=== PATIENT | male | born 1950 | race Caucasian/White ===

== ENCOUNTER 2018-01-13 15:41 | Outpatient (REF) | payer MEDICARE, MEDICAID, SELFPAY | END 2018-01-13 16:01 | LOC: NCHCN 15:41 | PROVIDERS: PCP Nurse Practitioner Family; Visit Provider Specialist/Technologist Athletic Trainer | DX: L02.424 Furuncle of left upper limb (principal) | CPT/HCPCS: 87077; 87070; 87186; 87205 ==

== ENCOUNTER 2018-01-15 16:41 | Outpatient (CLI) | payer MEDICARE, MEDICAID, SELFPAY ==
--- NOTE | 2018-01-15 13:22 | DI.RAD_ITS ---
SYMPTOMS/DIAGNOSIS: LT HAND PAIN, M79.642 LEFT FOREARM: Two views. No priors. No bone or joint abnormality is identified. No radiopaque foreign bodies are seen in the soft tissues. IMPRESSION: Negative left forearm. LEFT HAND: Three views. Mild degenerative changes are seen in the hand and wrist. No acute fracture, dislocation, lytic or sclerotic lesion is seen. No erosive changes are seen to suggest osteomyelitis. The soft tissues are unremarkable. IMPRESSION: No acute abnormality.
== END 2018-01-15 17:01 ==
PROVIDERS: PCP Specialist/Technologist Athletic Trainer; Visit Provider Specialist/Technologist Athletic Trainer
DX: M79.642 Pain in left hand (principal); M79.632 Pain in left forearm; M19.032 Primary osteoarthritis, left wrist; M19.042 Primary osteoarthritis, left hand
CPT/HCPCS: 73090; 73130

== ENCOUNTER 2018-04-06 10:36 | Outpatient (REF) | payer MEDICARE, MEDICAID, SELFPAY ==
[2018-04-06 19:46] LABS: Hemoglobin A1C 7.2 % (4.5-6.2)
[2018-04-06 20:00] LABS: ALT 21 U/L (12-78); AST 17 U/L (15-37); Albumin 3.9 g/dL (3.4-5.0); Alkaline Phosphatase 63 U/L (46-116); Anion Gap 9.2 mmol/L (3-11); BUN 27 mg/dL (7-18); Bilirubin, Total 0.4 mg/dL (0.2-1.0); CO2 24.8 mmol/L (21.0-32.0); CREATININE 1.42 mg/dL (0.70-1.30); Calcium 8.9 mg/dL (8.5-10.1); Chloride 100 mmol/L (98-107); Cholesterol 196 mg/dL (50-200); Estimated GFR 50.04 (mL/min/1.73m2); Glucose 147 mg/dL (70-100); HDL Cholesterol 39 mg/dL (40-60); LDL CHOLESTEROL 119 mg/dL (<100); Potassium 5.1 mmol/L (3.5-5.1); Sodium 134 mmol/L (136-145); Total Protein 7.5 g/dL (6.4-8.2); Triglyceride 213 mg/dL (30-150)
== END 2018-04-06 10:56 ==
LOC: NCHCN 10:36
PROVIDERS: PCP Specialist/Technologist Athletic Trainer; Visit Provider Physician Assistant Medical
DX: E11.9 Type 2 diabetes mellitus without complications (principal); I25.10 Atherosclerotic heart disease of native coronary artery without angina pectoris; N18.3 Chronic kidney disease, stage 3 (moderate)
CPT/HCPCS: 80053; 80061; 83721; 83036; 84550

== ENCOUNTER 2018-09-07 08:47 | Emergency (ER) | payer OTHER, SELFPAY ==
[2018-09-07] VITALS (30 sets, daily range): BP systolic 105–138; BP diastolic 55–104; PULSE 63–98; RESP 16–28; TEMP 36.7; O2SAT 94–99
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
--- NOTE | 2018-09-07 09:16 | DI.RAD_ITS ---
SYMPTOM/DIAGNOSIS: LEFT FEMUR LEFT FEMUR: There is no evidence of fracture or hip dislocation. There is acetabular spurring. Degenerative changes are seen at the knee, greatest in the medial femoral tibial joint. Vascular calcifications are seen. There is contrast in the urinary bladder from the recent CT. IMPRESSION: Degenerative changes. No acute abnormality.
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
[2018-09-07] MEDS: Normal Saline 1,000 ML 150 ML IV (09:29)
[2018-09-07 09:32] LABS: Abs Immature Grans 0.04 k/cumm (0.0-0.09); Absolute Basophil Count 0.07 k/cumm (0.0-0.2); Absolute Eosinophil Count 0.16 k/cumm (0.0-0.7); Absolute Monocyte Count 1.24 k/cumm (0.11-0.7); Basophils % 0.4; HCT 43.3 % (40.0-50.0); HGB 14.5 g/dL (13.5-17.5); Immature Grans % 0.2; Lymphocytes % 9.2; Mean Corp. HGB Concentration 33.5 g/dL (32.0-36.0); Mean Corpuscular Hemoglobin 30.2 pg (27.0-33.0); Mean Corpuscular Volume 90.2 fL (80-95); Mean Platelet Volume 9.4 fL (8.0-11.0); Monocytes % 7.6; Neutrophils % 81.6; Platelet Count 329 x1000/uL (130-400); RBC Distribution Width 14.9 % (11.8-14.1); White Blood Cell Count 16.34 k/cumm (4.4-10.8)
[2018-09-07 09:33] LABS: Absolute Neutrophil Count 13.33 k/cumm (1.2-6.7)
[2018-09-07 09:52] LABS: ALT 30 U/L (12-78); AST 25 U/L (15-37); Albumin 3.8 g/dL (3.4-5.0); Alkaline Phosphatase 68 U/L (46-116); Anion Gap 11.8 mmol/L (3-11); BUN 22 mg/dL (7-18); Bilirubin, Total 0.3 mg/dL (0.2-1.0); CO2 24.2 mmol/L (21.0-32.0); CREATININE 1.64 mg/dL (0.70-1.30); Calcium 8.8 mg/dL (8.5-10.1); Chloride 102 mmol/L (98-107); Estimated GFR 42.24 (mL/min/1.73m2); Glucose 180 mg/dL (70-100); Potassium 4.3 mmol/L (3.5-5.1); Sodium 138 mmol/L (136-145); Total Protein 7.6 g/dL (6.4-8.2)
[2018-09-07] MEDS: Omnipaque 350 MG/ML 100 ML BTL IJ (10:14)
== END 2018-09-07 13:00 | disposition left against medical advice (07) ==
PROVIDERS: Emergency Provider Student in an Organized Health Care Education/Training Program; PCP Physician Assistant Medical
DX: S32.018A Other fracture of first lumbar vertebra, initial encounter for closed fracture (principal); S32.028A Other fracture of second lumbar vertebra, initial encounter for closed fracture; S32.038A Other fracture of third lumbar vertebra, initial encounter for closed fracture; S32.048A Other fracture of fourth lumbar vertebra, initial encounter for closed fracture; S32.058A Other fracture of fifth lumbar vertebra, initial encounter for closed fracture; S42.022A Displaced fracture of shaft of left clavicle, initial encounter for closed fracture; E11.65 Type 2 diabetes mellitus with hyperglycemia; V84.0XXA Driver of special agricultural vehicle injured in traffic accident, initial encounter; Z79.01 Long term (current) use of anticoagulants; I10 Essential (primary) hypertension; Z79.84 Long term (current) use of oral hypoglycemic drugs; Z53.29 Procedure and treatment not carried out because of patient's decision for other reasons
CPT/HCPCS: 36415; 73552; 74177; 80053; 86850; 86900; 86901; 96360; 96361; 99285; 70450; 71260; 72125; 73030; 85025; 99284; J3490; L3650

== ENCOUNTER 2018-09-22 15:06 | Outpatient (CLI) | payer MEDICARE, MEDICAID, SELFPAY ==
--- NOTE | 2018-09-22 15:00 | DI.RAD_ITS ---
SYMPTOM/DIAGNOSIS: F/U FX LEFT CLAVICLE: Two views were obtained. The previously described clavicular fracture seen on shoulder films of 09/07/18 is again noted. There may be slightly increased inferior angulation of the distal fracture fragment in comparison with the previous examination. No other significant change is seen.
== END 2018-09-22 15:26 ==
PROVIDERS: PCP Physician Assistant Medical; Visit Provider Physician Assistant
DX: S42.025D Nondisplaced fracture of shaft of left clavicle, subsequent encounter for fracture with routine healing (principal)
CPT/HCPCS: 73000

== ENCOUNTER 2018-10-05 12:54 | Outpatient (REF) | payer MEDICARE, SELFPAY ==
[2018-10-05 22:01] LABS: Anion Gap 9.8 mmol/L (3-11); BUN 18 mg/dL (7-18); CO2 25.2 mmol/L (21.0-32.0); CREATININE 1.19 mg/dL (0.70-1.30); Calcium 8.7 mg/dL (8.5-10.1); Chloride 101 mmol/L (98-107); Glucose 171 mg/dL (70-100); Potassium 4.4 mmol/L (3.5-5.1); Sodium 136 mmol/L (136-145)
== END 2018-10-05 13:14 ==
LOC: NCHCN 12:54
PROVIDERS: PCP Physician Assistant Medical; Visit Provider Physician Assistant Medical
DX: N18.3 Chronic kidney disease, stage 3 (moderate) (principal)
CPT/HCPCS: 80048

== ENCOUNTER 2018-10-06 10:46 | Outpatient (CLI) | payer MEDICARE, MEDICAID, SELFPAY ==
--- NOTE | 2018-10-06 09:02 | DI.RAD_ITS ---
SYMPTOM/DIAGNOSIS: F/U FX LEFT CLAVICLE: Two views. Comparison 09/22/18 There has been no change in alignment of the left clavicular fracture. There is callus formation about the fracture consistent with some interval healing. Mild degenerative changes are seen at the acromioclavicular joint. IMPRESSION: Healing left clavicular fracture.
== END 2018-10-06 11:06 ==
PROVIDERS: PCP Physician Assistant Medical; Referring Provider Physician Assistant Medical; Visit Provider Student in an Organized Health Care Education/Training Program
DX: S42.025A Nondisplaced fracture of shaft of left clavicle, initial encounter for closed fracture (principal); X58.XXXA Exposure to other specified factors, initial encounter; E11.9 Type 2 diabetes mellitus without complications; I10 Essential (primary) hypertension; Z79.84 Long term (current) use of oral hypoglycemic drugs
CPT/HCPCS: 99213; 73000

== ENCOUNTER 2018-10-27 11:16 | Outpatient (CLI) | payer MEDICARE, MEDICAID, SELFPAY ==
--- NOTE | 2018-10-27 10:17 | DI.RAD_ITS ---
SYMPTOMS/DIAGNOSIS: F/U FX LEFT CLAVICLE: Comparison is made with September,. There has been no change in the alignment of the clavicle fracture. There is slightly increased callus formation when compared with the previous exam.
== END 2018-10-27 11:36 ==
PROVIDERS: PCP Physician Assistant Medical; Referring Provider Physician Assistant Medical; Visit Provider Student in an Organized Health Care Education/Training Program
DX: S42.025A Nondisplaced fracture of shaft of left clavicle, initial encounter for closed fracture (principal); X58.XXXA Exposure to other specified factors, initial encounter
CPT/HCPCS: 99213; 73000

== ENCOUNTER 2018-12-06 10:32 | Outpatient (CLI) | payer MEDICARE, MEDICAID, SELFPAY ==
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
== END 2018-12-06 10:52 ==
PROVIDERS: PCP Physician Assistant Medical; Referring Provider Physician Assistant Medical; Visit Provider Student in an Organized Health Care Education/Training Program
DX: S42.025D Nondisplaced fracture of shaft of left clavicle, subsequent encounter for fracture with routine healing (principal); X58.XXXD Exposure to other specified factors, subsequent encounter
CPT/HCPCS: 99212; 99213; 73000

== ENCOUNTER 2018-12-31 08:34 | Outpatient (RCR) | payer MEDICARE, MEDICAID, SELFPAY | END 2019-01-13 23:59 | disposition home or self-care (01) | LOC: CR 08:34 | PROVIDERS: PCP Physician Assistant Medical; Visit Provider Family Medicine | DX: R69 Illness, unspecified (principal) ==

== ENCOUNTER 2018-12-31 15:51 | Outpatient (RCR) | payer MEDICARE, MEDICAID, SELFPAY ==
--- NOTE | 2018-12-31 15:53 | PDOC.CNN_ITS ---
Primary Reason for Visit Medical/Dental/Vision Referral to Care Coordination Referral to Care Coordination: No Referral to Services: Yes Where and Who: [facility] Who: Joao Shin - Referral From Referral From: Self Care Plan - Plan of Care Assessment/Background: Pt presented as walk in stating that he quit smoking Dec and hsd bypass surgery Dec 21, 2018 at [facility] the pharmacy told him that medicaid would not cover his nicotine patches. Plan of Care: Pt has Medicare and Medicaid. CHW gave referal to Joao Shin for smoking cessation
== END 2019-01-13 23:59 | disposition home or self-care (01) ==
LOC: COCO 15:51
PROVIDERS: PCP Physician Assistant Medical; Visit Provider Internal Medicine Hematology
DX: R69 Illness, unspecified (principal)

== ENCOUNTER 2019-02-09 11:41 | Outpatient (RCR) | payer MEDICARE, MEDICAID, SELFPAY | END 2019-02-12 23:59 | disposition home or self-care (01) | LOC: CR 11:41 | PROVIDERS: PCP Physician Assistant Medical; Visit Provider Family Medicine | DX: Z95.1 Presence of aortocoronary bypass graft (principal); Z51.89 Encounter for other specified aftercare | CPT/HCPCS: S9472 ==

== ENCOUNTER 2019-03-11 14:23 | Outpatient (RCR) | payer MEDICARE, MEDICAID, SELFPAY | END 2019-03-15 23:59 | disposition home or self-care (01) | LOC: CR 14:23 | PROVIDERS: PCP Physician Assistant Medical; Visit Provider Family Medicine | DX: Z95.1 Presence of aortocoronary bypass graft (principal); Z51.89 Encounter for other specified aftercare | CPT/HCPCS: S9472 ==

== ENCOUNTER 2019-04-15 08:00 | Outpatient (RCR) | payer MEDICARE, MEDICAID, SELFPAY | END 2019-04-15 23:59 | disposition home or self-care (01) | LOC: CR 08:00 | PROVIDERS: PCP Physician Assistant Medical; Visit Provider Family Medicine | DX: Z95.1 Presence of aortocoronary bypass graft (principal); Z51.89 Encounter for other specified aftercare | CPT/HCPCS: S9472 ==

== ENCOUNTER 2019-04-29 13:41 | Outpatient (RCR) | payer MEDICARE, MEDICAID, SELFPAY | END 2019-05-14 23:59 | disposition home or self-care (01) | LOC: CR 13:41 | PROVIDERS: PCP Physician Assistant Medical; Visit Provider Family Medicine | DX: Z95.1 Presence of aortocoronary bypass graft (principal); Z51.89 Encounter for other specified aftercare | CPT/HCPCS: S9472 ==

== ENCOUNTER 2019-05-02 22:47 | Outpatient (REF) | payer MEDICARE, MEDICAID, SELFPAY ==
[2019-05-02 21:50] LABS: Hemoglobin A1C 7.2 % (3.8-5.6)
[2019-05-02 22:11] LABS: ALT 25 U/L (16-63); AST 24 U/L (15-37); Albumin 3.9 g/dL (3.4-5.0); Alkaline Phosphatase 76 U/L (46-116); Anion Gap 11.3 mmol/L (3-11); BUN 27 mg/dL (7-18); Bilirubin, Total 0.3 mg/dL (0.2-1.0); CO2 25.7 mmol/L (21.0-32.0); CREATININE 1.34 mg/dL (0.70-1.30); Calcium 8.6 mg/dL (8.5-10.1); Calculated LDL 115 mg/dL (<100); Chloride 101 mmol/L (98-107); Cholesterol 185 mg/dL (<200); Estimated GFR 53.33 (mL/min/1.73m2); Glucose 149 mg/dL (74-106); HDL Cholesterol 45 mg/dL (40-60); Potassium 4.7 mmol/L (3.5-5.1); Sodium 138 mmol/L (136-145); Total Protein 7.3 g/dL (6.4-8.2); Triglyceride 127 mg/dL (<150)
== END 2019-05-02 23:07 ==
LOC: NCHCN 22:47
PROVIDERS: PCP Physician Assistant Medical; Visit Provider Physician Assistant Medical
DX: E11.9 Type 2 diabetes mellitus without complications (principal); E78.5 Hyperlipidemia, unspecified; N18.3 Chronic kidney disease, stage 3 (moderate); Z87.891 Personal history of nicotine dependence
CPT/HCPCS: 80053; 80061; 83036

== ENCOUNTER 2019-12-02 13:05 | Outpatient (REF) | payer MEDICARE, SELFPAY ==
[2019-12-02 21:28] LABS: ALT 30 U/L (16-63); AST 17 U/L (15-37); Alkaline Phosphatase 57 U/L (46-116); Anion Gap 9.2 mmol/L (3-11); BUN 22 mg/dL (7-18); Bilirubin, Total 0.4 mg/dL (0.2-1.0); CO2 26.8 mmol/L (21.0-32.0); CREATININE 1.54 mg/dL (0.70-1.30); Calcium 8.7 mg/dL (8.5-10.1); Calculated LDL 118 mg/dL (<100); Chloride 101 mmol/L (98-107); Cholesterol 188 mg/dL (<200); Estimated GFR 45.28 (mL/min/1.73m2); Glucose 168 mg/dL (74-106); HDL Cholesterol 38 mg/dL (40-60); Potassium 4.5 mmol/L (3.5-5.1); Sodium 137 mmol/L (136-145); TSH 3.52 uIU/mL (0.36-3.74); Total Protein 7.3 g/dL (6.4-8.2); Triglyceride 163 mg/dL (<150)
== END 2019-12-02 13:25 ==
LOC: NCHCN 13:05
PROVIDERS: PCP Physician Assistant Medical; Visit Provider Physician Assistant Medical
DX: E06.3 Autoimmune thyroiditis (principal); I25.10 Atherosclerotic heart disease of native coronary artery without angina pectoris; N18.3 Chronic kidney disease, stage 3 (moderate)
CPT/HCPCS: 80053; 80061; 84443

== ENCOUNTER 2019-12-22 18:25 | Outpatient (REF) | payer MEDICARE, SELFPAY ==
[2019-12-22 19:39] LABS: Bilirubin Negative (Negative); Blood Trace-lysed (Negative); Clarity Clear (Clear); Glucose 500 mg/dL (Negative); Ketones Negative (Negative); Leukocyte Esterase Negative (Negative); Nitrite Negative (Negative); Urobilinogen 0.2 EU/dL (Up TO 0.2); pH 5.5 (5-8)
[2019-12-22 19:54] LABS: Bacteria Negative HPF (Negative); Crystals Negative HPF (Negative); Epithelial Cells Negative HPF (Negative); Mucus Negative (Negative)
[2019-12-22 19:55] LABS: C & S Indicated? No
== END 2019-12-22 18:45 ==
LOC: NCHCN 18:25
PROVIDERS: PCP Physician Assistant Medical; Visit Provider Physician Assistant Medical
DX: R35.1 Nocturia (principal)
CPT/HCPCS: 81003; 81015

== ENCOUNTER 2020-04-24 10:51 | Outpatient (REF) | payer MEDICARE, SELFPAY ==
[2020-04-25 19:41] LABS: COVID-19 RT-PCR UVMMC Result Positive (Negative)
== END 2020-04-24 10:52 | disposition home or self-care (01) ==
LOC: NCHCN 10:51
PROVIDERS: PCP Physician Assistant Medical; Visit Provider Physician Assistant Medical
DX: J06.9 Acute upper respiratory infection, unspecified (principal)
CPT/HCPCS: U0003; U0005

== ENCOUNTER 2020-04-27 05:28 | Outpatient (CLI) | payer MEDICARE, MEDICAID, SELFPAY ==
[2020-04-27 11:27] VITALS: BP 108/66; PULSE 54; RESP 20; TEMP 36.9
[2020-04-27 11:38] VITALS: BP 105/67; PULSE 53; RESP 18; TEMP 36.7; O2SAT 95
[2020-04-27 11:55] VITALS: BP 102/62; PULSE 53; RESP 18; TEMP 36.8; O2SAT 95
[2020-04-27 12:25] VITALS: BP 113/70; PULSE 52; RESP 18; TEMP 36.8; O2SAT 96
[2020-04-27 12:55] VITALS: BP 101/67; PULSE 55; RESP 20; TEMP 36.9; O2SAT 96
--- NOTE | 2020-04-27 14:23 | NUR.NOTE ---
Nursing Note: Bamlanivimab, Normal Saline, and NS flush were ordered under patients pre-account, [id number]. Patient has received his infusion. Medication documentation entered under account that medication had been ordered under.
== END 2020-04-27 05:29 | disposition home or self-care (01) ==
PROVIDERS: PCP Physician Assistant Medical; Visit Provider Family Medicine
DX: U07.1 COVID-19 (principal)
CPT/HCPCS: 96365

== ENCOUNTER 2021-04-09 16:25 | Outpatient (REF) | payer MEDICARE, MEDICAID, SELFPAY ==
[2021-04-09 20:41] LABS: Hemoglobin A1C 6.8 % (<5.7)
[2021-04-09 20:56] LABS: ALT 27 U/L (16-63); AST 22 U/L (15-37); Albumin 4.2 g/dL (3.4-5.0); Alkaline Phosphatase 67 U/L (46-116); Anion Gap 11.1 mmol/L (3-11); BUN 30 mg/dL (7-18); Bilirubin, Total 0.4 mg/dL (0.2-1.0); CO2 25.9 mmol/L (21.0-32.0); CREATININE 2.1 mg/dL (0.70-1.30); Calcium 9.1 mg/dL (8.5-10.1); Calculated LDL 122 mg/dL (<100); Chloride 100 mmol/L (98-107); Cholesterol 205 mg/dL (<200); Estimated GFR 31.56 (mL/min/1.73m2); Glucose 137 mg/dL (74-106); HDL Cholesterol 58 mg/dL (40-60); Potassium 5.5 mmol/L (3.5-5.1); Sodium 137 mmol/L (136-145); TSH 3.99 uIU/mL (0.36-3.74); Triglyceride 128 mg/dL (<150)
== END 2021-04-09 16:26 | disposition home or self-care (01) ==
LOC: NCHCN 16:25
PROVIDERS: PCP Physician Assistant Medical; Visit Provider Physician Assistant Medical
DX: E06.3 Autoimmune thyroiditis (principal); E11.9 Type 2 diabetes mellitus without complications; I25.10 Atherosclerotic heart disease of native coronary artery without angina pectoris
CPT/HCPCS: 80053; 80061; 83036; 84443

== ENCOUNTER 2021-05-07 16:35 | Outpatient (REF) | payer MEDICARE, SELFPAY ==
[2021-05-07 19:25] LABS: Anion Gap 12.5 mmol/L (3-11); BUN 42 mg/dL (7-18); CO2 24.5 mmol/L (21.0-32.0); CREATININE 2.1 mg/dL (0.70-1.30); Calcium 9.3 mg/dL (8.5-10.1); Chloride 102 mmol/L (98-107); Estimated GFR 31.56 (mL/min/1.73m2); Glucose 196 mg/dL (74-106); Potassium 4.4 mmol/L (3.5-5.1); Sodium 139 mmol/L (136-145); TSH 2.29 uIU/mL (0.36-3.74)
== END 2021-05-07 16:36 | disposition home or self-care (01) ==
LOC: NCHCN 16:35
PROVIDERS: PCP Physician Assistant Medical; Visit Provider Physician Assistant Medical
DX: I10 Essential (primary) hypertension (principal); E78.5 Hyperlipidemia, unspecified
CPT/HCPCS: 80048; 84443

== ENCOUNTER 2021-05-13 04:57 | Emergency (ER) | payer MEDICARE, MEDICAID, SELFPAY ==
[2021-05-13] VITALS (68 sets, daily range): BP systolic 88–124; BP diastolic 56–99; PULSE 57–124; RESP 13–23; TEMP 36–36.5; O2SAT 94–100
--- NOTE | 2021-05-13 05:07 | ED.GENADUL_ITS ---
Discharge Plan Disposition Patient Disposition: HOME Condition: Improving Discharge Details Clinical Impression: Anaphylaxis, Lip swelling, Urticaria Primary Care Provider: Antonella Lucas ED Provider: Ember Rolon Home Meds and New Rx's Prescriptions: New epinephrine 0.3 mg/0.3 mL auto-injector 0.3 mg IM Q5-15M PRN (Reason: anaphylaxis) Qty: 2 0RF Rx Instructions: do not exceed 3 doses per episode prednisone 20 mg tablet 60 mg PO DAILY 4 Days Qty: 12 0RF Continued sildenafil [Viagra] 50 MG tablet 50 mg PO DAILY PRN0RF aspirin 325 MG tablet 325 mg PO DAILY 0RF nitroglycerin [Nitrostat] 0.4 MG tablet, sublingual 0.4 mg Sublingual 0RF epinephrine 0.3 MG/0.3 ML auto-injector 0.3 mg IM PRN PRN0RF metformin [Glucophage XR] 500 MG tablet extended release 24 hr 500 mg PO BID 0RF metoprolol succinate 100 mg Tablet Extended Release 24 Hr 100 mg PO DAILY 0RF gemfibrozil [Lopid] 600 mg Tablet 600 mg PO BID 0RF furosemide [Lasix] 20 mg Tablet 20 mg PO QAM 0RF rosuvastatin [Crestor] 40 mg Tablet 40 mg PO DAILY 0RF Lantus Solostar U-100 Insulin 100 unit/mL (3 mL) Insulin Pen 10 unit SUBCUT QPM 0RF Discontinued lisinopril 5 MG tablet 5 mg PO DAILY 0RF Discharge Instructions Instructions: Anaphylaxis (ED), General Allergic Reaction (ED) Additional Instructions: You are being sent home with prescriptions for prednisone to take as directed until finished and an EpiPen to use if you develop any severe allergic reaction symptoms including dizziness, vomiting, difficulty swallowing or breathing. Stop taking your lisinopril until you follow-up with your primary care doctor within the next 2 to 3 days for reevaluation. Return immediately to the emergency department if you develop any worsening or new concerning symptoms. Discharge Data Discharge Physician: Ember Rolon Medical Decision Making <Irwin Gibson MD - Last Filed: 05/13/21 06:37> 70 yo male with hx of DM, HTN, who states he had a prior reaction over 20 years ago to a bee sting requiring epi and none since who comes in stating he woke up with lip swelling. He states he went to bed feeling well and woke up noticing his lips were swollen. HE also felt like his skin was itching and so came here. He denies chest pain or dyspnea currently, no new foods or new meds and no known inset bites or stings. He does have several small slightly raised mildly erythematous patches of various sizes and he is not sure if this is new or not but they do appear to be hives. He does state he feels itchy. Both upper and lower lips are swollen. He is able to fully open his mouth and his tongue is normal size and posterior pharynx including uvula appear normal, he has clear lungs and no abdominal tenderness and is swallowing normally. I suspect angioedema possibly from the lisinopril though given he feels itching of the skin and unclear if this rash on lower abdomen and back is new or not will treat as possible anaphylaxis with epi, benadryl, famotidine and methylprednisolone and reassess. labs show creatinine of 3.8 and was 2.1 last week, seems to be karma on ckd, is making urine normally. Urticaria has improved and he has no itching now, no changes in lip swelling, he feels well. Will continue to monitor, will likely have him hold his lisinopril until he sees his pcp if he is discharged after observation pt continues to feel well and his lips are slightly less swollen and he states they feel less swollen, will monitor for 4 hours after epi was given Differential Diagnosis Differential Diagnosis: angioedema, anaphylaxis Lab Data Lab results reviewed: Yes I reviewed the patient's lab results. <Ember Rolon DO - Last Filed: 05/13/21 09:57> 70 yo male with hx of DM, HTN, who states he had a prior reaction over 20 years ago to a bee sting requiring epi and none since who comes in stating he woke up with lip swelling. He states he went to bed feeling well and woke up noticing his lips were swollen. HE also felt like his skin was itching and so came here. He denies chest pain or dyspnea currently, no new foods or new meds and no known inset bites or stings. He does have several small slightly raised mildly erythematous patches of various sizes and he is not sure if this is new or not but they do appear to be hives. He does state he feels itchy. Both upper and lower lips are swollen. He is able to fully open his mouth and his tongue is normal size and posterior pharynx including uvula appear normal, he has clear lungs and no abdominal tenderness and is swallowing normally. I suspect angioedema possibly from the lisinopril though given he feels itching of the skin and unclear if this rash on lower abdomen and back is new or not will treat as possible anaphylaxis with epi, benadryl, famotidine and methylprednisolone and reassess. labs show creatinine of 3.8 and was 2.1 last week, seems to be karma on ckd, is making urine normally. Urticaria has improved and he has no itching now, no changes in lip swelling, he feels well. Will continue to monitor, will likely have him hold his lisinopril until he sees his pcp if he is discharged after observation pt continues to feel well and his lips are slightly less swollen and he states they feel less swollen, will monitor for 4 hours after epi was given 05/13 Dr. Rolon: [id number] --Case endorsed to continue to monitor after epi given. Plan is for monitoring for 4 hours post epinephrine injection which will be around 9:30 AM. 0950 --patient states he feels 75% better and would like to go home. He was able to ambulate, eat yogurt denies any difficulty swallowing or breathing. There is still some swelling noted to his legs but overall improved. Normal oropharynx. Lungs clear bilaterally. Vitals within normal limits. We will plan for discharge to home at this time. He was given prescriptions for prednisone and EpiPen Patient was placed on care management list to plan for a follow-up appoint with his primary care doctor in the next 2 to 3 days for reevaluation. He was a dvised to stop taking his lisinopril. Usual and customary return precautions given prior to discharge. HPI <Irwin Gibson MD - Last Filed: 05/13/21 06:37> General Mode of arrival: ambulatory . Date/Time Provider Initiated Documentation: 05/13/21 04:58 . Limitations to Documentation: no limitations . Information obtained by: patient . History of Present Illness 70 year old M presents to the emergency department with the chief complaint of lip swelling, described as moderate, Patient started experiencing this hour(s) (1) and it has been constant. improves with No relieving factors improve symptom(s), No exacerbating factors reported . Patient notes denies chest pain and fever/chills. Patient did receive the following treatments prior to arrival, none Related Data Home Medications Medication Instructions Recorded Confirmed Glucophage XR 500 mg 500 mg PO BID NS 03/01/13 05/13/21 tablet,extended release (metformin) Nitrostat 0.4 mg sublingual tablet 0.4 mg SUBLINGUAL NS 03/01/13 12/06/18 (nitroglycerin) Viagra 50 mg tablet (sildenafil) 50 mg PO DAILY PRN tab-cap NS 03/01/13 05/13/21 aspirin 325 mg tablet 325 mg PO DAILY tab-cap NS 03/01/13 04/27/20 epinephrine 0.3 mg/0.3 mL 0.3 mg IM PRN PRN NS 03/01/13 05/13/21 injection, auto-injector furosemide 20 mg tablet (Lasix) 20 mg PO QAM 09/07/18 05/13/21 gemfibrozil 600 mg tablet (Lopid) 600 mg PO BID 09/07/18 05/13/21 metoprolol succinate 100 mg 100 mg PO DAILY 09/07/18 05/13/21 tablet,extended release 24 hr rosuvastatin 40 mg tablet (Crestor) 40 mg PO DAILY 09/07/18 05/13/21 insulin glargine 100 unit/mL (3 10 unit SUBCUT QPM 04/27/20 05/13/21 mL) subcutaneous pen (Lantus Solostar U-100 Insulin) epinephrine 0.3 mg/0.3 mL 0.3 mg (0.3 mL) IM Q5-15M PRN #2 ea 05/13/21 injection, auto-injector prednisone 20 mg tablet 60 mg PO DAILY 4 Days #12 tab 05/13/21 Previous Rx's Medication Instructions Recorded epinephrine 0.3 mg/0.3 mL 0.3 mg (0.3 mL) IM Q5-15M PRN #2 ea 05/13/21 injection, auto-injector prednisone 20 mg tablet 60 mg PO DAILY 4 Days #12 tab 05/13/21 Allergies Allergy/AdvReac Type Severity Reaction Status Date / Time varenicline tartrate Allergy Unknown Unverified 05/13/21 05:12 [From Chantix] hornet Allergy facial/throat Uncoded 05/13/21 05:12 swelling General Stated Complaint: Allergic JENN: 2 Review of Systems <Irwin Gibson MD - Last Filed: 05/13/21 06:37> All systems reviewed & are unremarkable except as noted in HPI and below Constitutional Constitutional: Denies chills, Denies fever(s) and Denies weakness Eyes Eyes: Denies loss of vision Cardiovascular Cardiovascular: Denies chest pain and Denies dyspnea Respiratory Respiratory: Denies cough and Denies dyspnea Gastrointestinal Gastrointestinal: Denies abdominal pain, Denies nausea and Denies vomiting Genitourinary Genitourinary: Denies dysuria Musculoskeletal Musculoskeletal: Denies joint swelling Neurologic Neurologic: Denies loss of vision and Denies weakness PFSH <Irwin Gibson MD - Last Filed: 05/13/21 06:37> All Active Problems (Updated 05/13/21 @ 09:54 by Ember Rolon DO) Anaphylaxis (Acute) Lip swelling (Acute) Urticaria (Acute) Closed left clavicular fracture (Acute 09/07/18) Medical History (Updated 05/13/21 @ 09:54 by Ember Rolon DO) Diabetes Heart attack Hypercholesterolemia Hypertension Social History Smoking/Tobacco Use Status: Former Tobacco Use Quit Date: 12/22/18 Tobacco: How many years used: 50 Smoking risk assessment performed?: Yes Alcohol Intake: current Alcohol Intake frequency: 3 or more drinks per day Alcohol type: beer Substance use type: does not use Do you feel safe at home: Yes Do you feel safe in your relationship?: Yes Exam <Irwin Gibson MD - Last Filed: 05/13/21 06:37> Const General: no acute distress Orientation: alert HENMT Head: normal to inspection Ears: external ears normal General nose exam: external nose normal Mouth: moist mucous membranes Eyes General: appearance normal, both eyes and all related structures Neck Neck: normal visual inspection Resp Effort & Inspection: normal respiratory effort and able to speak in complete sentences Cardio Rate: regular rate Skin General skin exam: turgor normal Neuro General: patient alert and patient oriented x3 Extrem General: normal to inspection Psych Mental Status: mental status grossly normal Course <Irwin Gibson MD - Last Filed: 05/13/21 06:37> Vital Signs Vital signs: Vital Signs Temperature 36.0 C L 05/13/21 05:02 Pulse 71 05/13/21 05:02 Respiratory Rate 20 05/13/21 05:02 Blood Pressure 116/99 H 05/13/21 05:02 Pulse Oximetry 97 05/13/21 05:02 Temperature 36.0 C L 05/13/21 05:02 Temperature Source Temporal Artery Scan 05/13/21 05:02 Pulse 71 05/13/21 05:02 Respiratory Rate 20 05/13/21 05:02 Blood Pressure 116/99 H 05/13/21 05:02 Blood Pressure Position Sitting 05/13/21 05:02 Pulse Oximetry 97 05/13/21 05:02 Oxygen Delivery Method Room Air 05/13/21 05:02 Oxygen Flow Rate 0 05/13/21 05:02 Pain Level 3 05/13/21 05:02 Critical Care Time <Irwin Gibson MD - Last Filed: 05/13/21 06:37> Critical Care Time Critical Care Time: Yes Total Critical Care Time: 60 (minutes) Attestation: time spent giving IM epinephrine in patient with anaphylaxis requiring hemodynamic monitoring and frequent checks with potential to deteriorate at any time Sign Out <Irwin Gibson MD - Last Filed: 05/13/21 06:37> Sign Out Data: Sign Out Comment: lip swelling and also had hives on lower abdomen/back so was given IM epi, IV benadryl/famotidine/solumedrol with improvement, plan for him if he doesn't require another dose of epi is to be discharged at approx. 930 and d/c lisinopril until he sees his pcp Last updated by Irwin Gibson MD at 05/13/21 06:38
[2021-05-13] MEDS: FAMOTIDINE 20 MG in Normal Saline 100 ML 400 MG IVPB (05:23)
[2021-05-13] MEDS: Normal Saline 1,000 ML 1000 ML IV ×2 (05:25→06:41)
[2021-05-13] MEDS: EPINEPHrine 1 MG/ML AMP pres-free 0.3 MG IM (05:25)
[2021-05-13] MEDS: diphenhydrAMINE 50 MG/ML VIAL IVP (05:25)
[2021-05-13] MEDS: methylPREDNISolone SUCC 125 MG VIAL IVP (05:25)
[2021-05-13 05:34] LABS: Abs Immature Grans 0.04 10^3/uL (0.0-0.06); Absolute Basophil Count 0.06 10^3/uL (0.0-0.2); Absolute Eosinophil Count 0.18 10^3/uL (0.0-0.7); Absolute Lymphocyte Count 0.77 10^3/uL (1.2-3.4); Absolute Monocyte Count 1.41 10^3/uL (0.1-0.8); Absolute Neutrophil Count 7.24 10^3/uL (1.2-6.7); Basophils % 0.6; Eosinophils % 1.9; HCT 42.1 % (40.0-50.0); HGB 13.8 g/dL (13.5-17.5); Immature Grans % 0.4; Lymphocytes % 7.9; MCH 29.8 pg (27.0-33.0); MCHC 32.8 % (32.0-36.0); MCV 90.9 fL (80-95); MPV 9.2 fL (8.0-11.0); Monocytes % 14.5; Neutrophils % 74.7; Nucleated RBC 0 %; Platelet Count 238 10^3/uL (130-400); RBC 4.63 10^6/uL (4.36-5.78); RDW 13.4 % (11.8-14.1); RDW-SD 45.4 fL
[2021-05-13 05:51] LABS: ALT 55 U/L (16-63); AST 49 U/L (15-37); Albumin 3.2 g/dL (3.4-5.0); Alkaline Phosphatase 67 U/L (46-116); Anion Gap 13.3 mmol/L (3-11); BUN 61 mg/dL (7-18); Bilirubin, Total 0.6 mg/dL (0.2-1.0); CO2 23.7 mmol/L (21.0-32.0); Calcium 8.7 mg/dL (8.5-10.1); Chloride 96 mmol/L (98-107); Estimated GFR 15.92 (mL/min/1.73m2); Glucose 189 mg/dL (74-106); Potassium 3.5 mmol/L (3.5-5.1); Sodium 133 mmol/L (136-145); Total Protein 7.9 g/dL (6.4-8.2)
[2021-05-13 05:52] LABS: CREATININE 3.8 mg/dL (0.70-1.30)
--- NOTE | 2021-05-13 09:26 | NUR.NOTE ---
Nursing Note: Pt info given to PCP & care management for follow up in the next few days to be seen for angioedema. [facility], ED
== END 2021-05-13 09:54 | disposition home or self-care (01) ==
PROVIDERS: Emergency Medicine; Emergency Provider Physician Assistant; PCP Physician Assistant Medical
DX: T78.2XXA Anaphylactic shock, unspecified, initial encounter (principal); L50.8 Other urticaria; R22.0 Localized swelling, mass and lump, head
CPT/HCPCS: 80053; 96361; 96365; 96372; 96375; 99284; 85025; J0171; J1200; J2930

== ENCOUNTER 2021-05-14 04:43 | Observation (INO) | payer MEDICARE, MEDICAID, SELFPAY ==
[2021-05-14] VITALS (60 sets, daily range): BP systolic 98–144; BP diastolic 45–107; PULSE 65–98; RESP 1–23; TEMP 36.5–37; O2SAT 93–100
--- NOTE | 2021-05-14 | DI.RAD_ITS ---
Exam(s) XR SOFT TISSUE NECK EXAM: XR SOFT TISSUE NECK CLINICAL HISTORY: angioedema. TECHNIQUE: 2D digital imaging was performed. COMPARISON: No exams were available for comparison FINDINGS: BONES: No acute fracture is present. Visualized vertebral body and disc heights are maintained. Mult ilevel degenerative changes are seen in the spine. SOFT TISSUE:Airway is patent without radiopaque foreign body. Epiglottis is not enlarged. Prevertebra l soft tissues appear unremarkable. There is soft tissue swelling in the submandibular region. IMPRESSION: 1. Soft tissue swelling in the submandibular region of the neck. 2. No evidence of an enlarged epiglottis. No prevertebral soft tissue swelling is noted. DATA REPOSITORY: RADIATION DOSE DELIVERED:
--- NOTE | 2021-05-14 | DI.RAD_ITS ---
Exam(s) XR CHEST 1V IN DI DEPT EXAM: XR CHEST 1V IN DI DEPT CLINICAL HISTORY: angioedema TECHNIQUE: 2D digital imaging was performed of the chest. Two images were obtained. PA views were obtained. COMPARISON: No exams were available for comparison FINDINGS: MEDIASTINUM: Normal. HEART: Normal. PULMONARY VASCULATURE: Normal. LUNGS: Clear. PLEURAL SPACE: No pleural effusion or pneumothorax. BONE:Within normal limits for the patient's age. Sternal wires are in place. OTHER FINDINGS:Normal. IMPRESSION: No acute pulmonary findings. DATA REPOSITORY: RADIATION DOSE DELIVERED:
--- NOTE | 2021-05-14 04:59 | ED.GENADUL_ITS ---
Discharge Plan Disposition Patient Disposition: [facility] INPATIENT Condition: Stable Discharge Details Clinical Impression: Angioedema Primary Care Provider: Antonella Lucas ED Provider: Irwin Gibson Home Meds and New Rx's Prescriptions: No Action sildenafil [Viagra] 50 MG tablet 50 mg PO DAILY PRN0RF aspirin 325 MG tablet 325 mg PO DAILY 0RF nitroglycerin [Nitrostat] 0.4 MG tablet, sublingual 0.4 mg Sublingual 0RF epinephrine 0.3 MG/0.3 ML auto-injector 0.3 mg IM PRN PRN0RF metformin [Glucophage XR] 500 MG tablet extended release 24 hr 500 mg PO BID 0RF metoprolol succinate 100 mg Tablet Extended Release 24 Hr 100 mg PO DAILY 0RF gemfibrozil [Lopid] 600 mg Tablet 600 mg PO BID 0RF furosemide [Lasix] 20 mg Tablet 20 mg PO QAM 0RF rosuvastatin [Crestor] 40 mg Tablet 40 mg PO DAILY 0RF Lantus Solostar U-100 Insulin 100 unit/mL (3 mL) Insulin Pen 10 unit SUBCUT QPM 0RF epinephrine 0.3 mg/0.3 mL auto-injector 0.3 mg IM Q5-15M PRN (Reason: anaphylaxis) Qty: 2 0RF Rx Instructions: do not exceed 3 doses per episode prednisone 20 mg tablet 60 mg PO DAILY 4 Days Qty: 12 0RF Medical Decision Making 70 yo male with hx of htn, dm, ckd who comes in with tongue swelling. He was seen yesterday for lip swelling and had hives on his abdomen. He had no dyspnea at that time or wheezing but was treated with IM epi, benadryl famotidine and steroids. He was observed in the ED for 4 hours and did not require further epi and lips were dramatically reduced in size per chart review on discharge. He was on lisinopril but was advised to stop it and hasn't had a dose since Thursday morning. He went to bed feeling well but woke up and felt his tongue was swollen so came here. On exam he is able to say 2-3 words but is limited because his tongue is significantly swollen. He has no dyspnea and has clear lung sounds and is able to swallow though states it is harder than normal to swallow. He again has what appears to be hives on his arms. Currently he seems to be protecting his airway, will treat again with IM epi, iv benadryl, famotidine and steroids and given there are cases IV txa has helped will administer this and also FFF which he consented to verbally receive after discussing risks/benefits Pt stable, still no dyspnea and denies any worsening of his symptoms unchanged creatinine from yesterday, 3.8 increased from baseline 2.1. Still awaiting FFP but still feels no worsening maybe mild improvement in sensation of swelling pt improving with FFP still has first unit going in, is swallowing easier now and still clear lungs. Given rapid worsening within 24 hours will discuss with hospitalist about admission for continued observation and management Differential Diagnosis Differential Diagnosis: anaphylaxis, angioedema Medical Records Medical records reviewed: Yes I reviewed the patient's medical records. Lab Data Lab results reviewed: Yes I reviewed the patient's lab results. HPI General Mode of arrival: ambulatory . Date/Time Provider Initiated Documentation: 05/14/21 04:44 . Limitations to Documentation: no limitations . Information obtained by: patient . History of Present Illness 70 year old M presents to the emergency department with the chief complaint of tongue swelling, described as moderate, and is localized to the mouth. Patient reports no radiation. Patient started experiencing this hour(s) (2) and it has been constant. improves with No relieving factors improve symptom(s), No exacerbating factors reported . Related Data Home Medications Medication Instructions Recorded Confirmed Glucophage XR 500 mg 500 mg PO BID NS 03/01/13 05/14/21 tablet,extended release (metformin) Nitrostat 0.4 mg sublingual tablet 0.4 mg SUBLINGUAL NS 03/01/13 12/06/18 (nitroglycerin) Viagra 50 mg tablet (sildenafil) 50 mg PO DAILY PRN tab-cap NS 03/01/13 05/14/21 aspirin 325 mg tablet 325 mg PO DAILY tab-cap NS 03/01/13 05/14/21 epinephrine 0.3 mg/0.3 mL 0.3 mg IM PRN PRN NS 03/01/13 05/14/21 injection, auto-injector furosemide 20 mg tablet (Lasix) 20 mg PO QAM 09/07/18 05/14/21 gemfibrozil 600 mg tablet (Lopid) 600 mg PO BID 09/07/18 05/14/21 metoprolol succinate 100 mg 100 mg PO DAILY 09/07/18 05/14/21 tablet,extended release 24 hr rosuvastatin 40 mg tablet (Crestor) 40 mg PO DAILY 09/07/18 05/14/21 insulin glargine 100 unit/mL (3 10 unit SUBCUT QPM 04/27/20 05/14/21 mL) subcutaneous pen (Lantus Solostar U-100 Insulin) epinephrine 0.3 mg/0.3 mL 0.3 mg (0.3 mL) IM Q5-15M PRN #2 ea 05/13/21 injection, auto-injector prednisone 20 mg tablet 60 mg PO DAILY 4 Days #12 tab 05/13/21 05/14/21 Previous Rx's Medication Instructions Recorded epinephrine 0.3 mg/0.3 mL 0.3 mg (0.3 mL) IM Q5-15M PRN #2 ea 05/13/21 injection, auto-injector prednisone 20 mg tablet 60 mg PO DAILY 4 Days #12 tab 05/13/21 Allergies Allergy/AdvReac Type Severity Reaction Status Date / Time lisinopril Allergy Severe Anaphylaxis Unverified 05/14/21 06:27 varenicline tartrate Allergy Unknown Unverified 05/14/21 06:25 [From Chantix] hornet Allergy facial/throat Uncoded 05/14/21 06:25 swelling General Stated Complaint: Allergic JENN: 1 Review of Systems All systems reviewed & are unremarkable except as noted in HPI and below Constitutional Constitutional: Denies chills, Denies fever(s) and Denies weakness Eyes Eyes: Denies loss of vision Cardiovascular Cardiovascular: Denies chest pain and Denies dyspnea Respiratory Respiratory: Denies cough and Denies dyspnea Gastrointestinal Gastrointestinal: Denies abdominal pain, Denies nausea and Denies vomiting Genitourinary Genitourinary: Denies dysuria Musculoskeletal Musculoskeletal: Denies joint swelling Neurologic Neurologic: Denies loss of vision and Denies weakness Allergic/Immunologic Allergic/Immunologic: Denies urticaria PFSH All Active Problems (Updated 05/14/21 @ 06:08 by Irwin Gibson MD) Anaphylaxis (Acute) Lip swelling (Acute) Urticaria (Acute) Angioedema (Acute) Closed left clavicular fracture (Acute 09/07/18) Medical History (Updated 05/14/21 @ 06:08 by Irwin Gibson MD) Diabetes Heart attack Hypercholesterolemia Hypertension Social History Smoking/Tobacco Use Status: Former Tobacco Use Quit Date: 12/22/18 Tobacco: How many years used: 50 Smoking risk assessment performed?: Yes Alcohol Intake: current Alcohol Intake frequency: 3 or more drinks per day Alcohol type: beer Substance use type: does not use Do you feel safe at home: Yes Do you feel safe in your relationship?: Yes Exam Const General: not in distress Orientation: alert HENMT Head: normal to inspection Ears: external ears normal General nose exam: external nose normal Mouth: abnormal tongue and no trismus Eyes General: appearance normal, both eyes and all related structures Neck Neck: normal visual inspection Resp Effort & Inspection: normal respiratory effort and able to speak in complete sentences Cardio Rate: regular rate Skin General skin exam: turgor normal Neuro General: patient alert and patient oriented x3 Extrem General: normal to inspection Course Vital Signs Vital signs: Vital Signs Temperature 36.6 C 05/14/21 04:53 Pulse 69 05/14/21 04:53 Respiratory Rate 20 05/14/21 04:53 Blood Pressure 131/77 05/14/21 04:53 Pulse Oximetry 97 05/14/21 04:53 Temperature 36.6 C 05/14/21 04:53 Temperature Source Skin 05/14/21 04:53 Pulse 69 05/14/21 04:53 Respiratory Rate 20 05/14/21 04:53 Blood Pressure 131/77 05/14/21 04:53 Pulse Oximetry 97 05/14/21 04:53 Pain Level 9 05/14/21 04:53 Critical Care Time Critical Care Time Critical Care Time: Yes Total Critical Care Time: 60 (minutes) Attestation: time spent administering IM epi in patient with angioedema and required frequent reassessments with potential to deteriorate at any time
[2021-05-14] MEDS: EPINEPHrine 1 MG/ML AMP pres-free 0.3 MG SC (05:08)
[2021-05-14] MEDS: methylPREDNISolone SUCC 125 MG VIAL IVP (05:10)
[2021-05-14] MEDS: diphenhydrAMINE 50 MG/ML VIAL IVP (05:10)
[2021-05-14] MEDS: Normal Saline 1,000 ML 1000 ML IV (05:11)
[2021-05-14 05:13] LABS: Source Nasal/Nares
[2021-05-14] MEDS: FAMOTIDINE 20 MG in Normal Saline 100 ML 400 MG IVPB (05:13)
[2021-05-14 05:15] LABS: Abs Immature Grans 0.04 10^3/uL (0.0-0.06); Absolute Basophil Count 0.03 10^3/uL (0.0-0.2); Absolute Eosinophil Count 0.03 10^3/uL (0.0-0.7); Absolute Lymphocyte Count 1.32 10^3/uL (1.2-3.4); Absolute Monocyte Count 1.11 10^3/uL (0.1-0.8); Absolute Neutrophil Count 6.74 10^3/uL (1.2-6.7); Basophils % 0.3; Eosinophils % 0.3; HCT 42.3 % (40.0-50.0); HGB 13.6 g/dL (13.5-17.5); Immature Grans % 0.4; Lymphocytes % 14.2; MCH 29.5 pg (27.0-33.0); MCHC 32.2 % (32.0-36.0); MCV 91.8 fL (80-95); MPV 9.3 fL (8.0-11.0); Neutrophils % 72.8; Nucleated RBC 0 %; Platelet Count 299 10^3/uL (130-400); RBC 4.61 10^6/uL (4.36-5.78); RDW 13.5 % (11.8-14.1); RDW-SD 46.1 fL; WBC 9.27 10^3/uL (4.4-10.8)
[2021-05-14 05:28] LABS: ALT 46 U/L (16-63); AST 33 U/L (15-37); Albumin 3.5 g/dL (3.4-5.0); Alkaline Phosphatase 74 U/L (46-116); Anion Gap 12.2 mmol/L (3-11); BUN 66 mg/dL (7-18); Bilirubin, Total 0.6 mg/dL (0.2-1.0); CO2 25.8 mmol/L (21.0-32.0); Calcium 8.8 mg/dL (8.5-10.1); Chloride 100 mmol/L (98-107); Estimated GFR 15.92 (mL/min/1.73m2); Glucose 163 mg/dL (74-106); Potassium 3.7 mmol/L (3.5-5.1); Sodium 138 mmol/L (136-145); Total Protein 8.4 g/dL (6.4-8.2)
[2021-05-14 05:30] LABS: CREATININE 3.8 mg/dL (0.70-1.30)
[2021-05-14] MEDS: EPINEPHrine 0.3 MG KIT (05:41)
[2021-05-14 05:52] LABS: COVID-19 PCR Negative (Negative)
--- NOTE | 2021-05-14 07:40 | RESPIRATORY ---
RT called in to ED for pt with allergic reaction to medication resulting in oral swelling and mallampati score of 4. Pt unable to manage oral secretions or swallow at this time. He is becoming more able to vocalize and has an audible voice. Plan for patient is admission to ICU for observation per attending.
[2021-05-14 08:07] LABS: Lab Add On Test DONE
[2021-05-14 08:16] LABS: Magnesium 2.9 mg/dL (1.8-2.4)
--- NOTE | 2021-05-14 10:06 | W.PULMCC ---
General Date of Service Date of service: 05/14/21 Time of Service: 08:45 Reason for Admission to ICU: Anaphylactoid reaction Assessment and Plan Assessment and plan (1) Anaphylaxis: Status: Acute (2) Acute kidney injury superimposed on CKD: Status: Acute (3) Diabetes: (4) Hypertension: (5) Hypercholesterolemia: Assessment and plan: This is a 70 yo man admitted to the ICU for an anaphylactic reaction. I doubt this to be purely angioedema from his lisinopril as he has urtricaria. He may have developed a true allergy to lisinopril that has caused this. He did have a GI issues with mackeral in the preceeding week but I am not sure if this is even related. Bowel edema can occur with anaphylaxis and so we will have to keep an eye on his GI symptoms (although current no concern so will hold off on imaging). This could represent a protracted anaphylactic reaction - hives, abdominal cramping, lip and tongue swelling which can occur over several days without ever truly improving. I started him on a low dose epinephrine drip given my concern for anaphylaxis. He is currently protecting his airway and it seems as though his tongue swelling is improving so we will observe him in the ICU. Given that this is his second anaphylactic episode, it would likely be in his benefit to have an epi pen at home. Recommendations Pulmonary: Anaphylaxis - s/p famotidine, TXA, FFP, Benadryl, epi 0.3mcg x2 and 125mg methylpred - started continuous epi infusion - agree with scheduled Benadryl for now - receiving 1L LR - would recommend only this 1 bag for now - Decadron 4mg IV daily (to start tomorrow) - recommend an epi pen on discharge - CXR and soft tissue neck Xray - lisinopril already added to allergy list - lactate - will expect some elevations given anaphylaxis as well as epi drip and scheduled albuterol - c1 esterase antigen and functional, IgE, tryptase Cardiac: No acute concerns Renal: DANIELA on CKD - likely due to anaphylaxis - possible tubular swelling? - receiving 1 L LR - avoid nephrotoxic drugs I&O: Intake & Output 05/11/21 05/12/21 05/13/21 05/14/21 23:59 23:59 23:59 23:59 Intake Total 1907 / 1907 Output Total 375 / 375 Balance 1532 / 1532 Weight 107 kg Daily Fluid Goal:: even to slightly positive GI Nutrition: NPO for now Recent abdominal bloating - can hold off on imaging for now - low threshold for abdominal/pelvis CT given potential for bowel edema Date of Last Bowel Movement: 05/13/21 Infectious Disease: No acute concerns for infection, recent COVID infection, but is negative today Hematologic: No acute concerns Neurologic: No acute concerns Endocrine: Diabetes - on insulin - hold metformin Lines: PIV Prophylaxis: Would hold on DVT ppx for today in case of decompensation and potential need for surgical airway Code Status: Resuscitation Status Full Code Subjective Critical and life-threatening events over the past 24 hours: This is a 70 yo man with HTN on lisonpril who initially reported to the ED with lip swelling and hives. He was treated with epi, benadryl, famotidine and methylpred and was ultimately discharged. He returns today with the same and worsening complaints. He states that last week he starting eat mackeral from a can that caused him to have some constipation, abdominal bloating. He took milk of magnesia for this which helps him have a bowel movement and he then felt better. He awoke yesterday to find the lip swelling and itchy skin. It does not seem as though his symptoms ever fully resolved after his initial ED discharge. He denies eating anything atypical aside from the mackeral. 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 Today he was found to have a very swollen tongue and so concern for lisinopril angioedema arose. He was given FFP, TXA, benadryl, Pepcid and 0.3mcg epi x 2. Since administration of these medications his tongue has started to decrease in size per the patient as he is now able to talk. He states there is some subjective trouble breathing but that it because his tongue is big. When breathing through his nose he is ok. Exam Narrative Exam Narrative: Gen: NAD, normal respiratory effort, well-nourished HENT: PERRL, Mallampati 4. Able to speak clearly but with muffled voice. Extremely swollen tongue. No lip swelling. Chest: No respiratory distress, normal appearance of chest, clear to auscultation bilaterally, no crackles or wheezes, normal inspiratory effort Heart: regular rate and rhythym, no murmurs, rubs or gallops Abdomen: Non-distended, soft, non tender Extremities: No clubbing. Diffuse and scattered elevated erythematous rash with darkened boarders consistent with hives. Present on neck, chest, arms, legs. Neuro: AAOx3 , non focal Psych: cooperative, appropriate mental affect Most Recent VS/Results Last Vital Signs Temp 36.6 C 05/14/21 09:20 Pulse 80 05/14/21 09:46 Resp 16 05/14/21 09:46 BP 111/61 05/14/21 09:46 Pulse Ox 95 05/14/21 09:46 Laboratory Results - last 24 hr 05/14/21 05/14/21 05/14/21 05:00 05:00 05:00 WBC 9.27 RBC 4.61 Hgb 13.6 Hct 42.3 MCV 91.8 MCH 29.5 MCHC 32.2 RDW 13.5 Plt Count 299 MPV 9.3 Immature Gran % 0.4 Neutrophils % 72.8 Lymphocytes % 14.2 Monocytes % 12.0 Eosinophils % 0.3 Basophils % 0.3 Nucleated RBC % 0 Absolute Neutrophils 6.74 H Absolute Lymphocytes 1.32 Absolute Monocytes 1.11 H Absolute Eosinophils 0.03 Absolute Basophils 0.03 Sodium 138 Potassium 3.7 Chloride 100 Carbon Dioxide 25.8 Anion Gap 12.2 H BUN 66 H Creatinine 3.8 H* Estimated GFR/1.73 m2 15.92 Glucose 163 H Calcium 8.8 Magnesium Total Bilirubin 0.6 AST 33 ALT 46 Alkaline Phosphatase 74 Total Protein 8.4 H Albumin 3.5 COVID-19 Source SARS-CoV-2 (PCR) Add-On Test Request Patient ABO/Rh A Positive Antibody Screen NEGATIVE 05/14/21 05/14/21 05/14/21 05:00 05:07 Unknown WBC RBC Hgb Hct MCV MCH MCHC RDW Plt Count MPV Immature Gran % Neutrophils % Lymphocytes % Monocytes % Eosinophils % Basophils % Nucleated RBC % Absolute Neutrophils Absolute Lymphocytes Absolute Monocytes Absolute Eosinophils Absolute Basophils Sodium Potassium Chloride Carbon Dioxide Anion Gap BUN Creatinine Estimated GFR/1.73 m2 Glucose Calcium Magnesium 2.9 H Total Bilirubin AST ALT Alkaline Phosphatase Total Protein Albumin COVID-19 Source Nasal/Nares SARS-CoV-2 (PCR) Negative Add-On Test Request DONE Patient ABO/Rh Antibody Screen Review of Systems All systems reviewed & are unremarkable except as noted in HPI and below Time spent with patient Time spent in Critical Care: 60 Time spent in Critical care included: Coordination of care, Chart review, Documenting critically ill care, Time at immediate bedside and Discussing critically ill care with other medical staff
--- NOTE | 2021-05-14 12:17 | W.PM.HP.N ---
Date of service: 05/14/21 Time of Service: 12:18 Assessment and Plan Assessment and plan (1) Acute kidney injury superimposed on CKD: Status: Acute Assessment and plan: Creatinine of 3.8; baseline in the mid 1's to 2.0. LIkely related to the allergic reaction he is experiencing. IV and oral hydration. Monitor. (2) Urticaria: Status: Acute Assessment and plan: See anaphylaxis. (3) Hypertension: Assessment and plan: Holding metoprolol d/t interaction with epinephrine. Resume once epi is discontinued. (4) Hypercholesterolemia: (5) Diabetes: Assessment and plan: Decreased dosing of rosuvastatin to 10mg daily d/t co-administration with gemfibrozil. Holding gemfibrozil currently d/t DANIELA on CKD. (6) CAD (coronary artery disease): Status: Chronic Assessment and plan: Cont ASA 325mg daily. Holding metoprolol as per above. (7) Anaphylaxis: Status: Acute Assessment and plan: Epinephrine drip Scheduled benadryl Now on dexamthasone 4mg daily IV CXR and soft tissue neck pending. [id number] antigen and functional, IgE and tryptase ordered; send outs. History of Present Illness History of Present Illness Chief Complaint: Bilateral lower extremity weakness Narrative: This is a 70 yo male with a PMH of CAD/previous NE, DM2, HTN, HLD. He presented to the ED with tongue swelling and hives. He had presented to the ED the previous day with tongue swelling and hives on his abd. He was treated with IM epinephrine, IV benadryl, famotidine and steroids. After being observed for 4 hours and required no further epinephrine, along with less swelling of his tongue and lips, he was discharged with scripts for an epi pen and prednisone 60mg daily for 4 days. He had been on lisinopril and this was discontinued. Last dose was 04/11/21. This admission was prompted by him waking up and noticing increased tongue swelling . In the ED the swelling of his tongue inhibited clear speech. He had no respiratory distress and was handling his secretions w/o difficulty. He was noted to have wide spread urticarial lesions. He was administered IM epi, IV benadryl, famotidine and steroids as well as IV TXA and FFP. He was admitted and started on a low dose epinephrine drip initiated by Dr Duffy, Pulmonary Medicine. Review of Systems All systems reviewed & are unremarkable except as noted in HPI and below PFSH All Active Problems (Updated 05/14/21 @ 12:58 by Nav Albarado MD) CAD (coronary artery disease) (Chronic) Acute kidney injury superimposed on CKD (Acute) Anaphylaxis (Acute) Lip swelling (Acute) Urticaria (Acute) Angioedema (Acute) Closed left clavicular fracture (Acute 09/07/18) Medical History (Updated 05/14/21 @ 12:58 by Nav Albarado MD) Diabetes Heart attack Hypercholesterolemia Hypertension Social History Smoking/Tobacco Use Status: Former Tobacco Use Quit Date: 12/22/18 Tobacco: How many years used: 50 Smoking risk assessment performed?: Yes Alcohol Intake: current Alcohol Intake frequency: 3 or more drinks per day Alcohol type: beer Substance use type: does not use Do you feel safe at home: Yes Do you feel safe in your relationship?: Yes Meds Allergies and Home Medications Allergies Allergy/AdvReac Type Severity Reaction Status Date / Time lisinopril Allergy Severe Anaphylaxis Unverified 05/14/21 06:27 varenicline tartrate Allergy Unknown Unverified 05/14/21 06:25 [From Chantix] hornet Allergy facial/throat Uncoded 05/14/21 06:25 swelling Home Medications Medication Instructions Recorded Confirmed Type Glucophage XR 500 mg 500 mg PO BID NS 03/01/13 05/14/21 History tablet,extended release (metformin) Nitrostat 0.4 mg sublingual tablet 0.4 mg SUBLINGUAL NS 03/01/13 12/06/18 History (nitroglycerin) Viagra 50 mg tablet (sildenafil) 50 mg PO DAILY PRN tab-cap NS 03/01/13 05/14/21 History aspirin 325 mg tablet 325 mg PO DAILY tab-cap NS 03/01/13 05/14/21 History epinephrine 0.3 mg/0.3 mL 0.3 mg IM PRN PRN NS 03/01/13 05/14/21 History injection, auto-injector furosemide 20 mg tablet (Lasix) 20 mg PO QAM 09/07/18 05/14/21 History gemfibrozil 600 mg tablet (Lopid) 600 mg PO BID 09/07/18 05/14/21 History metoprolol succinate 100 mg 100 mg PO DAILY 09/07/18 05/14/21 History tablet,extended release 24 hr rosuvastatin 40 mg tablet (Crestor) 40 mg PO DAILY 09/07/18 05/14/21 History insulin glargine 100 unit/mL (3 10 unit SUBCUT QPM 04/27/20 05/14/21 History mL) subcutaneous pen (Lantus Solostar U-100 Insulin) epinephrine 0.3 mg/0.3 mL 0.3 mg (0.3 mL) IM Q5-15M PRN #2 ea 05/13/21 Rx injection, auto-injector prednisone 20 mg tablet 60 mg PO DAILY 4 Days #12 tab 05/13/21 05/14/21 Rx Exam Narrative Exam Narrative: Pt is lying in bed. Conversational with mild speech impairment d/t tongue swelling. Const General: cooperative and no acute distress Orientation: alert and oriented x3 HENMT Head: normal to inspection Ears: external ears normal General nose exam: external nose normal Mouth: abnormal tongue (Generalized tongue swelling) and no trismus Eyes General: appearance normal, both eyes and all related structures Sclera: sclerae normal Neck Neck: normal visual inspection, full ROM and no JVD Resp Effort & Inspection: normal respiratory effort and able to speak in complete sentences Auscultation: clear to auscultation bilaterally Cardio Rate: regular rate Rhythm: regular rhythm Heart Sounds: S1 normal and S2 normal GI Palpation: soft and nontender Auscultation: normal bowel sounds Skin General skin exam: turgor normal Rashes: other (Scattered urticarial lesions on torso, all extremities. ) Neuro General: no focal motor deficits Cranial Nerves: facial strength normal Extrem General: normal to inspection, no pedal edema and no calf tenderness Psych Appearance: grossly normal Mood: congruent mood Affect: normal affect Results Labs Result diagrams: 05/14/21 05:00 05/14/21 05:00 Labs: Laboratory Results - last 24 hr 05/14/21 05/14/21 05/14/21 05:00 05:00 05:00 WBC 9.27 RBC 4.61 Hgb 13.6 Hct 42.3 MCV 91.8 MCH 29.5 MCHC 32.2 RDW 13.5 Plt Count 299 MPV 9.3 Immature Gran % 0.4 Neutrophils % 72.8 Lymphocytes % 14.2 Monocytes % 12.0 Eosinophils % 0.3 Basophils % 0.3 Nucleated RBC % 0 Absolute Neutrophils 6.74 H Absolute Lymphocytes 1.32 Absolute Monocytes 1.11 H Absolute Eosinophils 0.03 Absolute Basophils 0.03 Sodium 138 Potassium 3.7 Chloride 100 Carbon Dioxide 25.8 Anion Gap 12.2 H BUN 66 H Creatinine 3.8 H* Estimated GFR/1.73 m2 15.92 Glucose 163 H Calcium 8.8 Magnesium Total Bilirubin 0.6 AST 33 ALT 46 Alkaline Phosphatase 74 Total Protein 8.4 H Albumin 3.5 COVID-19 Source SARS-CoV-2 (PCR) Add-On Test Request Patient ABO/Rh A Positive Antibody Screen NEGATIVE 05/14/21 05/14/21 05/14/21 05:00 05:07 Unknown WBC RBC Hgb Hct MCV MCH MCHC RDW Plt Count MPV Immature Gran % Neutrophils % Lymphocytes % Monocytes % Eosinophils % Basophils % Nucleated RBC % Absolute Neutrophils Absolute Lymphocytes Absolute Monocytes Absolute Eosinophils Absolute Basophils Sodium Potassium Chloride Carbon Dioxide Anion Gap BUN Creatinine Estimated GFR/1.73 m2 Glucose Calcium Magnesium 2.9 H Total Bilirubin AST ALT Alkaline Phosphatase Total Protein Albumin COVID-19 Source Nasal/Nares SARS-CoV-2 (PCR) Negative Add-On Test Request DONE Patient ABO/Rh Antibody Screen Last Vital Signs Temp 36.6 C 05/14/21 09:20 Pulse 89 05/14/21 11:31 Resp 14 05/14/21 11:31 BP 126/61 05/14/21 11:31 Pulse Ox 96 05/14/21 11:31 PAWSS Have you Been Recently Intoxicated or Drunk Within the Last 30 days?: No Have you Ever Experienced Previous Episodes of Alcohol Withdrawal?: No Have you ever undergone Alcohol Rehabilitation Treatment (i.e, inpt ot outpatient treatment programs)?: No Have you ever Experienced Blackouts?: No Have you ever Combined Alcohol with other Downers within the last 90 days?: No Have you ever Combined Alcohol with any other Substance of Abuse during the last 90 days?: No Evidence of Increased Autonomic Activity (i.e. HR>120, tremor, sweating, agitation, nausea)?: No Result: 0
[2021-05-14] MEDS: Insulin Aspart 300 UNITS/3 ML PEN SC ×3 (14:19→22:31)
[2021-05-14] MEDS: diphenhydrAMINE Elixir 25 MG/10 ML CUP PO ×2 (15:57→19:54)
[2021-05-14] MEDS: Albuterol 2.5 MG/3 ML INH SOLN VIAL UPD ×2 (16:27→19:54)
[2021-05-14] MEDS: Nystatin POWDER 15 GM JAR TP (18:11)
[2021-05-14] MEDS: Normal Saline Flush 10 ML SYR IVP ×2 (18:13→19:54)
[2021-05-14] MEDS: Insulin Glargine 300 UNITS/3 ML PEN 10 UNITS SC (19:55)
[2021-05-14] MEDS: Insulin Aspart 300 UNITS/3 ML PEN 7 UNITS SC (20:20)
[2021-05-15] VITALS (37 sets, daily range): BP systolic 100–148; BP diastolic 50–78; PULSE 60–100; RESP 1–25; TEMP 36.4–37; O2SAT 87–100
[2021-05-15] MEDS: Albuterol 2.5 MG/3 ML INH SOLN VIAL UPD ×6 (00:04→19:33)
[2021-05-15 06:59] LABS: Lactate 1.7 mmol/L (0.6-1.4)
[2021-05-15 07:27] LABS: Anion Gap 14.9 mmol/L (3-11); BUN 58 mg/dL (7-18); CO2 21.1 mmol/L (21.0-32.0); CREATININE 3.4 mg/dL (0.70-1.30); Calcium 8.3 mg/dL (8.5-10.1); Chloride 106 mmol/L (98-107); Glucose 162 mg/dL (74-106); Sodium 142 mmol/L (136-145)
--- NOTE | 2021-05-15 08:35 | PDOC.CMIN ---
- If Service Date Differs Date of service: 05/15/21 Time of Service: 08:35 Care Management Initial Assess REASON FOR HOSPITALIZATION:: angioedema, DANIELA PAST MEDICAL HISTORY/PAST SURGICAL HISTORY:: All Active Problems (Updated 05/14/21 @ 12:58 by Nav Albarado MD). CAD (coronary artery disease) (Chronic). Acute kidney injury superimposed on CKD (Acute). Anaphylaxis (Acute). Lip swelling (Acute). Urticaria (Acute). Angioedema (Acute). Closed left clavicular fracture (Acute 09/07/18). Medical History (Updated 05/14/21 @ 12:58 by Nav Albarado MD). Diabetes. Heart attack. Hypercholesterolemia. Hypertension PREVIOUS FUNCTIONAL STATUS/SOCIAL/FAMILY SUPPORTS:: Bear lives in a single family home in [place], [place] with his fianceann marie Pichardo. He has 3 children from a previous marraige all of whom are close by and offer support. 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 He still has a large woodworking shop which he uses. Bear is independent at baseline and receives no community services. CURRENT FUNCTIONAL STATUS:: Bear was sitting up in bed when CM met with him. he was pleasant and engaged easily with CM. Bear talked about his family and his farm and the relationship he has with Kylee. He also talked about the symptoms that brought him to the hospital and how frightening it was tro have his tongue swell. He verbalized thast he hopes to be discharged soon but not until a cause of the reaction is found. ADVANCE DIRECTIVES:: none on file. Providied with a blank copy by CM Has patient been provided with info about the portal/API?: Yes Did the patient sign up for the portal?: No CODE STATUS:: Full Code INSURANCE COVERAGE / FINANCIAL ISSUES:: Medicare CURRENT HOME/COMMUNITY SERVICES/EQUIPMENT:: none PRIMARY CARE PHYSICIAN:: Antonella Lucas POTENTIAL DISCHARGE NEEDS:: follow up with PCP and plan of care PATIENT/FAMILY EDUCATION NEEDS:: Review of discharge instructions, medications, followup plan, limitations, activity, Ask Me Three TRANSPORTATION:: via private vehicle with family PLAN:: Bear will likely be discharged home with no new services. He will follow up with his PCP and plan of care and transport with family. CM will continue to support Bear and his discharge planning needs.
[2021-05-15] MEDS: diphenhydrAMINE Elixir 25 MG/10 ML CUP PO ×3 (09:10→19:32)
[2021-05-15] MEDS: Normal Saline Flush 10 ML SYR IVP ×3 (09:11→19:33)
[2021-05-15] MEDS: Rosuvastatin 10 MG TAB PO (09:11)
[2021-05-15] MEDS: Dexamethasone 4 MG/ML VIAL IVP (09:12)
[2021-05-15] MEDS: Aspirin 325 MG TAB PO (09:12)
[2021-05-15] MEDS: Cetirizine 10 MG TAB PO (09:42)
[2021-05-15] MEDS: Insulin Aspart 300 UNITS/3 ML PEN SC ×4 (09:43→21:38)
[2021-05-15] MEDS: Insulin NPH-Human 300 UNITS/3 ML PEN 13 UNIT SC (09:46)
[2021-05-15] MEDS: diphenhydrAMINE 50 MG/ML VIAL 25 MG IVP (10:05)
[2021-05-15] MEDS: Nystatin POWDER 15 GM JAR TP ×3 (10:09→19:34)
--- NOTE | 2021-05-15 10:56 | PUCC_ITS ---
General Date of Service Date of service: 05/15/21 Time of Service: 07:40 Reason for Admission to ICU: Anaphylaxis Assessment and Plan Assessment and plan (1) Anaphylaxis: Status: Acute (2) Acute kidney injury superimposed on CKD: Status: Acute (3) Diabetes: (4) Hypertension: (5) Hypokalemia: Status: Acute (6) Hypercholesterolemia: Assessment and plan: This is a 70 yo man admitted to the ICU for an anaphylactic reaction. I doubt this to be purely angioedema from his lisinopril as he has urtricaria. He may have developed a true allergy to lisinopril that has caused this. He did have a GI issues with mackeral in the preceeding week but I am not sure if this is even related. Bowel edema can occur with anaphylaxis and so we will have to keep an eye on his GI symptoms (although current no concern so will hold off on imaging). After discontinuing the epinephrine infusion his hives returned within 12 hours and he was restarted on the infusion. This seems to be a refractory reaction despite standing Benadryl, Deadron and famotidine. He is currently protecting his airway and it seems as though his tongue swelling is almost resolved. Given that this is his second anaphylactic episode, it would likely be in his benefit to have an epi pen at home. I do think it is worth discussing the case with Allergy at [facility] [place] [facility] given the return of his hives. His tryptase, IgE studies and c1 studies are still pending. Recommendations Pulmonary: Anaphylaxis - s/p famotidine, TXA, FFP, Benadryl, epi 0.3mcg x2 and 125mg methylpred - restarted continuous epi infusion as hives recurred with discontinuation - agree with scheduled Benadryl for now - Decadron 4mg IV daily - recommend an epi pen on discharge - lisinopril already added to allergy list - c1 esterase antigen and functional, IgE, tryptase - recommend consultation with [facility] Allergy Cardiac: No acute concerns Renal: DANIELA on CKD - likely due to anaphylaxis - possible tubular swelling? - s/p1 L LR - avoid nephrotoxic drugs - Cr today improving Hypokalemia - repletement to 3.5 recommended I&O: Intake & Output 05/12/21 05/13/21 05/14/21 05/15/21 23:59 23:59 23:59 23:59 Intake Total 2877 / 3237 529.5 / 529.5 Output Total 1700 / 1700 1025 / 1025 Balance 1177 / 1537 -495.5 / -495.5 Weight 107 kg 120.1 kg Daily Fluid Goal:: even GI Nutrition: OK for diet Recent abdominal bloating - can hold off on imaging for now - low threshold for abdominal/pelvis CT given potential for bowel edema Date of Last Bowel Movement: 05/13/21 Infectious Disease: No acute concerns for infection, recent COVID infection, but is negative today Hematologic: No acute concerns Neurologic: No acute concerns Endocrine: Diabetes - on insulin - hold metformin Lines: PICC placed this morning Prophylaxis: OK to start DVT ppx on famotidine for allergy treatment Code Status: Resuscitation Status Full Code Subjective Critical and life-threatening events over the past 24 hours: Bear appears to be doing well. His epinephrine drip was stopped at 6pm per my instructions. It was however restarted at 4am due to return of his diffuse hives. His tongue did not appear to enlarge during this. Given the need for continued IV epinephrine infusion, a PICC line was placed this morning. He tells me his rash does not itch anymore after starting the epinephrine (it was very itchy this morning). No trouble breathing. He feels as though his tongues and jaw/neck is not swollen anymore. Exam Narrative Exam Narrative: Gen: NAD, normal respiratory effort, well-nourished HENT: PERRL, Mallampati 4. Able to speak much more clearly. Tongue appears to be normalized in size. No lip swelling. Chest: No respiratory distress, normal appearance of chest, clear to auscultation bilaterally, no crackles or wheezes, normal inspiratory effort Heart: regular rate and rhythym, no murmurs, rubs or gallops Abdomen: Non-distended, soft, non tender Extremities: No clubbing. Diffuse and scattered elevated erythematous rash with darkened boarders consistent with hives. Present on neck, chest, arms, legs. Neuro: AAOx3 , non focal Psych: cooperative, appropriate mental affect Most Recent VS/Results Last Vital Signs Temp 37 C 05/15/21 04:49 Pulse 80 05/15/21 07:42 Resp 12 05/15/21 07:42 BP 119/54 L 05/15/21 04:16 Pulse Ox 100 05/15/21 07:42 Laboratory Results - last 24 hr 05/15/21 05/15/21 06:50 06:50 VBG Lactate 1.7 H Sodium 142 Potassium 3.0 L Chloride 106 Carbon Dioxide 21.1 Anion Gap 14.9 H BUN 58 H Creatinine 3.4 H Estimated GFR/1.73 m2 18.10 Glucose 162 H Calcium 8.3 L Review of Systems All systems reviewed & are unremarkable except as noted in HPI and below Time spent with patient Time spent in Critical Care: 35 Time spent in Critical care included: Coordination of care, Chart review, Doc umenting critically ill care, Time at immediate bedside and Discussing critically ill care with other medical staff
[2021-05-15] MEDS: Famotidine 20 MG/2 ML VIAL IVP (12:24)
--- NOTE | 2021-05-15 15:07 | W.PM.PROGNOT ---
Date of Service Date of service: 05/15/21 Time of Service: 16:26 Assessment and Plan Assessment and plan (1) Acute kidney injury superimposed on CKD: Status: Acute Assessment and plan: Creatinine of 3.8; baseline in the mid 1's to 2.0. Now 3.4 LIkely related to the allergic reaction he is experiencing. IV and oral hydration. Monitor. (2) Urticaria: Status: Acute Assessment and plan: See anaphylaxis. (3) Hypertension: Assessment and plan: Holding metoprolol d/t interaction with epinephrine. Resume once epi is discontinued. BP controlled. (4) Hypercholesterolemia: Assessment and plan: Cont rosuvastatin (5) Diabetes: Assessment and plan: Decreased dosing of rosuvastatin to 10mg daily d/t co-administration with gemfibrozil. Holding gemfibrozil currently d/t DANIELA on CKD. Basal/bolus insulin (6) CAD (coronary artery disease): Status: Chronic Assessment and plan: Cont ASA 325mg daily. Holding metoprolol as per above. (7) Anaphylaxis: Status: Acute Assessment and plan: Epinephrine drip Scheduled benadryl Zyrtec 10mg daily Now on dexamthasone 4mg daily IV CXR and soft tissue neck: swelling in the submandibular region of neck. No epiglottis or prevertebral swelling. No acute pulmonary findings. [id number] antigen and functional, IgE and tryptase, IgE to latex ordered; send outs. Subjective Subjective Patient reports: tolerating a regular diet and afebrile; denies nausea or shortness of breath Interval history since last seen: Pruritic hives returned this AM. Tongue swelling subsided Exam Narrative Exam Narrative: Pt is lying in bed. Conversational with mild speech impairment d/t tongue swelling. Const General: cooperative and no acute distress Orientation: alert and oriented x3 HENMT Head: normal to inspection Ears: external ears normal General nose exam: external nose normal Mouth: tongue normal Eyes General: appearance normal, both eyes and all related structures Sclera: sclerae normal Neck Neck: normal visual inspection, full ROM and no JVD Resp Effort & Inspection: normal respiratory effort and able to speak in complete sentences Auscultation: clear to auscultation bilaterally Cardio Rate: regular rate Rhythm: regular rhythm Heart Sounds: S1 normal and S2 normal GI Palpation: soft and nontender Auscultation: normal bowel sounds Skin General skin exam: turgor normal Rashes: other (Scattered urticarial lesions on torso, all extremities. Areas of confluence) Neuro General: no focal motor deficits Cranial Nerves: facial strength normal Extrem General: normal to inspection, no pedal edema and no calf tenderness Psych Appearance: grossly normal Mood: congruent mood Affect: normal affect Objective Last Vital Signs Temp 37 C 05/15/21 04:49 Pulse 80 05/15/21 07:42 Resp 12 05/15/21 07:42 BP 119/54 L 05/15/21 04:16 Pulse Ox 100 05/15/21 07:42 Laboratory Results - last 24 hr 05/15/21 05/15/21 06:50 06:50 VBG Lactate 1.7 H Sodium 142 Potassium 3.0 L Chloride 106 Carbon Dioxide 21.1 Anion Gap 14.9 H BUN 58 H Creatinine 3.4 H Estimated GFR/1.73 m2 18.10 Glucose 162 H Calcium 8.3 L PAWSS Have you Been Recently Intoxicated or Drunk Within the Last 30 days?: No Have you Ever Experienced Previous Episodes of Alcohol Withdrawal?: No Have you ever Experienced Withdrawal Seizures?: No Have you ever Experienced Delirium Tremens(DT)s?: No Have you ever undergone Alcohol Rehabilitation Treatment (i.e, inpt ot outpatient treatment programs)?: No Have you ever Experienced Blackouts?: No Have you ever Combined Alcohol with other Downers within the last 90 days?: No Have you ever Combined Alcohol with any other Substance of Abuse during the last 90 days?: No Positive Blood Alcohol level on Presentation? [PCS.BAL]: No Evidence of Increased Autonomic Activity (i.e. HR>120, tremor, sweating, agitation, nausea)?: No Result: 0
[2021-05-15] MEDS: Insulin Glargine 300 UNITS/3 ML PEN 10 UNITS SC (21:41)
[2021-05-16] VITALS (24 sets, daily range): BP systolic 113–151; BP diastolic 63–81; PULSE 73–101; RESP 1–20; TEMP 36.3–37; O2SAT 94–98
[2021-05-16] MEDS: Albuterol 2.5 MG/3 ML INH SOLN VIAL UPD ×5 (00:13→20:14)
[2021-05-16] MEDS: Normal Saline Flush 10 ML SYR IVP ×3 (06:04→20:14)
[2021-05-16 07:15] LABS: Anion Gap 12.4 mmol/L (3-11); BUN 50 mg/dL (7-18); CO2 23.6 mmol/L (21.0-32.0); CREATININE 2.9 mg/dL (0.70-1.30); Calcium 8.5 mg/dL (8.5-10.1); Chloride 106 mmol/L (98-107); Estimated GFR 21.75 (mL/min/1.73m2); Glucose 242 mg/dL (74-106); Potassium 3.4 mmol/L (3.5-5.1); Sodium 142 mmol/L (136-145)
[2021-05-16] MEDS: diphenhydrAMINE Elixir 25 MG/10 ML CUP PO ×3 (08:00→20:14)
[2021-05-16] MEDS: Cetirizine 10 MG TAB PO (08:16)
[2021-05-16] MEDS: Dexamethasone 4 MG/ML VIAL IVP (08:16)
[2021-05-16] MEDS: Rosuvastatin 10 MG TAB PO (08:16)
[2021-05-16] MEDS: Insulin NPH-Human 300 UNITS/3 ML PEN 13 UNIT SC (08:27)
[2021-05-16] MEDS: Insulin Aspart 300 UNITS/3 ML PEN SC ×5 (08:28→22:15)
--- NOTE | 2021-05-16 08:52 | PDOC.CMPRO ---
- If Service Date Differs Date of service: 05/16/21 Time of Service: 08:53 Care Management Progress Note S/O: Bear was lying in bed when CM met with him. He was alert, oriented and easily engaged in conversation. He shares that he has an epi pen at home but was unsure how to use it when he started developing anaphalysis. [employer] provided him with an educational video, instructions and a boxing trainer epi pen. He is hoping to discharge home tomorrow. A: 70 year old male admitted to [facility] on 05/14/21 for Angioedema. P: Bear will likely be discharged home with no new services. He will follow up with his PCP and plan of care and transport with family. CM will continue to support Bear and his discharge planning needs.
[2021-05-16] MEDS: Nystatin POWDER 15 GM JAR TP ×2 (09:00→20:16)
[2021-05-16] MEDS: Montelukast 10 MG TAB PO (09:00)
[2021-05-16] MEDS: Famotidine 20 MG/2 ML VIAL IVP (12:13)
--- NOTE | 2021-05-16 15:02 | W.PM.PROGNOT ---
Date of Service Date of service: 05/16/21 Time of Service: 15:04 Assessment and Plan Assessment and plan (1) Acute kidney injury superimposed on CKD: Status: Acute Assessment and plan: Creatinine of 3.8; baseline in the mid 1's to 2.0. Now 2.9 LIkely related to the allergic reaction he is experiencing. IV and oral hydration. Monitor. (2) Urticaria: Status: Acute Assessment and plan: See anaphylaxis. (3) Hypertension: Assessment and plan: Have been holding metoprolol d/t interaction with epinephrine. Now off epi and will resume metoprolol nightly. (4) Hypercholesterolemia: Assessment and plan: Cont rosuvastatin (5) Diabetes: Assessment and plan: Basal/bolus insulin. Readings cont to be elevated. Steroid effect is contributing to elevations. Adjust insulin. (6) CAD (coronary artery disease): Status: Chronic Assessment and plan: Cont ASA 325mg daily. Decreased dosing of rosuvastatin to 10mg daily d/t co-administration with gemfibrozil. Holding gemfibrozil currently d/t DANIELA on CKD. Resume metoprolol. (7) Anaphylaxis: Status: Acute Assessment and plan: Epinephrine drip stopped this AM Scheduled benadryl Zyrtec 10mg daily Singulair 10mg daily Now on dexamthasone 4mg daily IV CXR and soft tissue neck: swelling in the submandibular region of neck. No epiglottis or prevertebral swelling. No acute pulmonary findings. [id number] antigen and functional, IgE and tryptase, IgE to latex ordered; send outs. Subjective Subjective Patient reports: no new complaints, tolerating a regular diet and afebrile; denies nausea or shortness of breath Interval history since last seen: Pruritic hives fading Tongue swelling subsided Exam Narrative Exam Narrative: Pt is lying in bed. Conversational with mild speech impairment d/t tongue swelling. Const General: cooperative and no acute distress Orientation: alert and oriented x3 HENMT Head: normal to inspection Ears: external ears normal General nose exam: external nose normal Mouth: tongue normal and no trismus Eyes General: appearance normal, both eyes and all related structures Sclera: sclerae normal Neck Neck: normal visual inspection, full ROM and no JVD Resp Effort & Inspection: normal respiratory effort and able to speak in complete sentences Auscultation: clear to auscultation bilaterally Cardio Rate: regular rate Rhythm: regular rhythm Heart Sounds: S1 normal and S2 normal GI Palpation: soft and nontender Auscultation: normal bowel sounds Skin General skin exam: turgor normal Rashes: other (Mild erythema at site of urticarial lesions of legs; no raised welps. ) Full body images: 1. 2-4 mm red papular lesions. No vesicles. 2. Neuro General: no focal motor deficits Cranial Nerves: facial strength normal Extrem General: normal to inspection, no pedal edema and no calf tenderness Psych Appearance: grossly normal Mood: congruent mood Affect: normal affect Objective Last Vital Signs Temp 36.6 C 05/16/21 13:03 Pulse 83 05/16/21 14:01 Resp 16 05/16/21 14:01 BP 138/81 05/16/21 14:01 Pulse Ox 95 05/16/21 08:01 Laboratory Results - last 24 hr 05/16/21 06:10 Sodium 142 Potassium 3.4 L Chloride 106 Carbon Dioxide 23.6 Anion Gap 12.4 H BUN 50 H Creatinine 2.9 H Estimated GFR/1.73 m2 21.75 Glucose 242 H D Calcium 8.5 PAWSS Have you Been Recently Intoxicated or Drunk Within the Last 30 days?: No Have you Ever Experienced Previous Episodes of Alcohol Withdrawal?: No Have you ever Experienced Withdrawal Seizures?: No Have you ever Experienced Delirium Tremens(DT)s?: No Have you ever undergone Alcohol Rehabilitation Treatment (i.e, inpt ot outpatient treatment programs)?: No Have you ever Experienced Blackouts?: No Have you ever Combined Alcohol with other Downers within the last 90 days?: No Have you ever Combined Alcohol with any other Substance of Abuse during the last 90 days?: No Positive Blood Alcohol level on Presentation? [PCS.BAL]: No Evidence of Increased Autonomic Activity (i.e. HR>120, tremor, sweating, agitation, nausea)?: No Result: 0
[2021-05-16] MEDS: Insulin Glargine 300 UNITS/3 ML PEN 20 UNITS SC (20:15)
[2021-05-16] MEDS: Hydrocortisone 1% CR 30 GM TUBE TP (20:15)
[2021-05-16] MEDS: Metoprolol CR 50 MG TABCR 200 MG PO (22:10)
[2021-05-17] VITALS (10 sets, daily range): BP systolic 119–128; BP diastolic 63–72; PULSE 70–83; RESP 1–17; TEMP 36.3–36.4
[2021-05-17] MEDS: Albuterol 2.5 MG/3 ML INH SOLN VIAL UPD ×3 (01:15→07:51)
[2021-05-17 06:50] LABS: Anion Gap 10.7 mmol/L (3-11); BUN 46 mg/dL (7-18); CO2 26.3 mmol/L (21.0-32.0); CREATININE 2.7 mg/dL (0.70-1.30); Calcium 8.6 mg/dL (8.5-10.1); Chloride 104 mmol/L (98-107); Estimated GFR 23.62 (mL/min/1.73m2); Glucose 178 mg/dL (74-106); Potassium 3.6 mmol/L (3.5-5.1); Sodium 141 mmol/L (136-145)
--- NOTE | 2021-05-17 08:37 | W.PM.DS.N ---
Date of service: 05/17/21 Time of Service: 08:41 DS: Diagnosis Discharge Diagnosis (1) Acute kidney injury superimposed on CKD: Status: Acute (2) Urticaria: Status: Acute (3) Hypertension: (4) Hypercholesterolemia: (5) Diabetes: (6) CAD (coronary artery disease): Status: Chronic (7) Anaphylaxis: Status: Acute Discharge Plan Disposition Patient Disposition: HOME Condition: Stable Discharge Details Reason For Visit: Angioedema, Urticaria Admit Date/Time: 05/14/21 07:40 Admit Provider: Nav Albarado Attending Provider: Nav Albarado Primary Care Provider: Antonella Lucas Hospital Course Hospital Course: This is a 70 yo male with a PMH of CAD/previous AL, DM2, HTN, HLD.? He presented to the ED with tongue swelling and hives.? He had presented to the ED the previous day with tongue swelling and hives on his abd.? He was treated with IM epinephrine, IV benadryl, famotidine and steroids.? After being observed for 4 hours and required no further epinephrine, along with less swelling of his tongue and lips, he was discharged with scripts for an epi pen and prednisone 60mg daily for 4 days. He had been on lisinopril and this was discontinued.? Last dose was 04/11/21.? This admission was prompted by him waking up and noticing increased tongue swelling .? In the ED the swelling of his tongue inhibited clear speech.? He had no respiratory distress and was handling his secretions w/o difficulty.? He was noted to have wide spread urticarial lesions.? He was administered IM epi, IV benadryl, famotidine and steroids as well as IV TXA and FFP. He was admitted and started on a low dose epinephrine drip initiated by Dr Duffy, Pulmonary Medicine. After the epinephrine drip overnight, it was stopped and the urticaria recurred. The tongue swelling resolved. The epinephrine drip was restarted and was administered for another 24 hours then stopped. He was also started on Zyrtec and Singulair. The urticaria resolved. He will cont Zyrtec, singulair, famotadine and a prednisone taper. Return to ED for any tongue / lip swelling. Follow up with PCP in 1-2 weeks Home Meds and New Rx's Prescriptions: New rosuvastatin 10 mg Tablet 10 mg PO DAILY Qty: 30 0RF cetirizine 10 mg Tablet 10 mg PO DAILY Qty: 0 0RF montelukast 10 mg Tablet 10 mg PO DAILY Qty: 30 0RF famotidine (PF) 20 mg/2 mL Solution 20 mg IVP Q24H Qty: 0 0RF prednisone 10 mg tablet See Rx Instructions .ROUTE .COMPLEX Qty: 45 0RF Rx Instructions: 4 daily for 3 days, then 3 daily for 5 days, then 2 daily for 5 days, then 1 daily for 5 days then 1/2 daily for 5 days. Continued sildenafil [Viagra] 50 MG tablet 50 mg PO DAILY PRN0RF aspirin 325 MG tablet 325 mg PO DAILY 0RF epinephrine 0.3 MG/0.3 ML auto-injector 0.3 mg IM PRN PRN0RF metformin [Glucophage XR] 500 MG tablet extended release 24 hr 500 mg PO BID 0RF metoprolol succinate 100 mg Tablet Extended Release 24 Hr 100 mg PO DAILY 0RF furosemide [Lasix] 20 mg Tablet 20 mg PO QAM 0RF Lantus Solostar U-100 Insulin 100 unit/mL (3 mL) Insulin Pen 10 unit SUBCUT QPM 0RF Discontinued gemfibrozil [Lopid] 600 mg Tablet 600 mg PO BID 0RF rosuvastatin [Crestor] 40 mg Tablet 40 mg PO DAILY 0RF epinephrine 0.3 mg/0.3 mL auto-injector 0.3 mg IM Q5-15M PRN (Reason: anaphylaxis) Qty: 2 0RF Rx Instructions: do not exceed 3 doses per episode prednisone 20 mg tablet 60 mg PO DAILY 4 Days Qty: 12 0RF No Action nitroglycerin [Nitrostat] 0.4 MG tablet, sublingual 0.4 mg Sublingual 0RF Discharge Instructions Additional Instructions: Hold gemfibrizol until repeat labs and creatinine level is less than 2.0. Referrals: Antonella Lucas PA [Primary Care Provider] - 05/31/21 10:00 am Activity:: Activity as Tolerated Equipment/Supplies:: No Equipment Needed Diet:: Resume home diet Discharge Orders Discharge Orders: Discharge Order (Routine); Ordered 05/17/21 Ordered By: Nav Albarado Other Ambulatory Orders: Basic Metabolic Panel (Routine) Location: None Selected Ordered By: Nav Albarado DS: Summary Time Spent with Patient providing and/or coordinating discharge services: Greater than 30 minutes Status at Discharge Functional status at discharge: independent ambulation Overall status at discharge: patient is back to baseline Mental Status: mental status grossly normal Speech and Movement: speech and movement normal Mood: congruent mood Affect: normal affect Exam Narrative Exam Narrative: Pt is lying in bed. Conversational with mild speech impairment d/t tongue swelling. Const General: cooperative and no acute distress Orientation: alert and oriented x3 HENMT Head: normal to inspection Ears: external ears normal General nose exam: external nose normal Mouth: tongue normal and no trismus Eyes General: appearance normal, both eyes and all related structures Sclera: sclerae normal Neck Neck: normal visual inspection, full ROM and no JVD Resp Effort & Inspection: normal respiratory effort and able to speak in complete sentences Auscultation: clear to auscultation bilaterally Cardio Rate: regular rate Rhythm: regular rhythm Heart Sounds: S1 normal and S2 normal GI Palpation: soft and nontender Auscultation: normal bowel sounds Skin General skin exam: turgor normal Rashes: other (No urticaria. ) Neuro General: no focal motor deficits Cranial Nerves: facial strength normal Extrem General: normal to inspection, no pedal edema and no calf tenderness Psych Appearance: grossly normal Mental Status: mental status grossly normal Speech and Movement: speech and movement normal Mood: congruent mood Affect: normal affect DS: Data Vitals/I&O Vitals and I&O: Vital Signs Temperature 36.3 C L 05/17/21 07:45 Temperature Source Temporal Artery Scan 05/17/21 07:45 Pulse 82 05/17/21 07:31 Pulse 83 05/17/21 07:31 Respiratory Rate 14 05/17/21 07:31 Respiratory Effort Non-Labored 05/17/21 07:45 Respiratory Depth Normal 05/17/21 07:45 Respiratory Pattern Normal 05/17/21 07:45 Blood Pressure 122/65 05/17/21 07:31 Blood Pressure Mean 76 05/17/21 07:31 Blood Pressure Position Sitting 05/17/21 07:45 Pulse Oximetry 95 05/16/21 08:01 Respiratory End-tidal CO2 19 05/14/21 08:33 Oxygen Delivery Method Room Air 05/17/21 07:45 Oxygen Flow Rate 0 05/17/21 07:45 Pain Level 0 05/17/21 07:45 Intake & Output 05/16/21 05/16/21 05/17/21 11:59 23:59 11:59 Intake Total 759.0 / 1369.0 610 / 1369.0 Output Total 2700 / 4550 1850 / 4550 1350 / 1350 Balance -1941.0 / -3181.0 -1240 / -3181.0 -1320 / -1320 Weight 120.1 kg 108.1 kg Intake: IV 399.0 / 429.0 30 / 429.0 Oral 360 / 940 580 / 940 Output: Urine 2700 / 4550 1850 / 4550 1350 / 1350 Other: Urine Color Pale Pale Pale Yellow Yellow Yellow Urine Appearance Clear Clear Clear Urine Odor None Comment voided x 3 Stool Size Small Stool Characteristics Soft Formed Voiding Methods Urinal Urinal Urinal Data Completed and Pending Labs on day of discharge: Labs from last 24 hours 05/17/21 05/15/21 06:25 06:50 Sodium 141 Potassium 3.6 Chloride 104 Carbon Dioxide 26.3 Anion Gap 10.7 BUN 46 H Creatinine 2.7 H Estimated GFR/1.73 m2 23.62 Glucose 178 H Calcium 8.6 Latex Allergen IgE Ab <0.35 PFSH All Active Problems Hypokalemia (Acute) CAD (coronary artery disease) (Chronic) Acute kidney injury superimposed on CKD (Acute) Anaphylaxis (Acute) Lip swelling (Acute) Urticaria (Acute) Angioedema (Acute) Closed left clavicular fracture (Acute 09/07/18) Medical History Diabetes Heart attack Hypercholesterolemia Hypertension Social History Smoking/Tobacco Use Status: Former Tobacco Use Quit Date: 12/22/18 Tobacco: How many years used: 50 Smoking risk assessment performed?: Yes Alcohol Intake: current Alcohol Intake frequency: 3 or more drinks per day Alcohol type: beer Substance use type: does not use Do you feel safe at home: Yes Do you feel safe in your relationship?: Yes
--- NOTE | 2021-05-17 08:39 | PDOC.CMPRO ---
- If Service Date Differs Date of service: 05/17/21 Time of Service: 08:39 Care Management Progress Note S/O: A: 70 year old male admitted to [facility] on 05/14/21 for Angioedema. P: Bear will likely be discharged home with no new services. He will follow up with his PCP and plan of care and transport with family. CM will continue to support Bear and his discharge planning needs.
[2021-05-17] MEDS: Insulin Aspart 300 UNITS/3 ML PEN SC ×2 (08:50→08:51)
[2021-05-17] MEDS: diphenhydrAMINE Elixir 25 MG/10 ML CUP PO (08:52)
[2021-05-17] MEDS: Dexamethasone 4 MG/ML VIAL IVP (08:52)
[2021-05-17] MEDS: Rosuvastatin 10 MG TAB PO (08:52)
[2021-05-17] MEDS: Insulin NPH-Human 300 UNITS/3 ML PEN 13 UNIT SC (08:53)
[2021-05-17] MEDS: Normal Saline Flush 10 ML SYR IVP (08:54)
[2021-05-17] MEDS: Montelukast 10 MG TAB PO (08:54)
[2021-05-17] MEDS: Hydrocortisone 1% CR 30 GM TUBE TP (08:55)
[2021-05-17] MEDS: Nystatin POWDER 15 GM JAR TP (08:55)
--- NOTE | 2021-05-17 09:11 | CMDISCH_ITS ---
- If Service Date Differs Date of service: 05/17/21 Time of Service: 09:11 LACE Index Scoring Tool - Questions: Length of Stay (in days): 3 Acuity (Admit via E.D.?): Yes Comorbidities: Previous M.I., Diabetes w/o Complication E.D. Visits: 2 - Answers: Total Score: 10 Risk of Readmission: High Risk Care Management Discharge Reason for Hospitalization: angioedema, DANIELA Discharge Plan: Discharge home with no new [facility] services via private vehicle with family. Continue new medications as prescribed and hold gemfibrizol until labs are repeated and instructed to restart. Bear will follow up with his PCP on 05/31/21. Patient/Family Education Needs: Review discharge instructions, limitations, medications and plan to follow up with community providers. ask me three.
--- NOTE | 2021-05-17 09:11 | PUCC_ITS ---
General Date of Service Date of service: 05/17/21 Time of Service: 07:45 Reason for Admission to ICU: Anaphylaxis Assessment and Plan Assessment and plan (1) Anaphylaxis: Status: Acute (2) Acute kidney injury superimposed on CKD: Status: Acute (3) Diabetes: (4) Hypertension: (5) Hypokalemia: Status: Acute (6) Hypercholesterolemia: Assessment and plan: This is a 70 yo man admitted to the ICU for an anaphylactic reaction. I doubt this to be purely angioedema from his lisinopril as he has urtricaria. He may have developed a true allergy to lisinopril that has caused this. He did have a GI issues with mackeral in the preceeding week but I am not sure if this is even related. After initially discontinuing the epinephrine infusion his hives returned within 12 hours and he was restarted on the infusion. He was trialed again to come off the epinephrine drip which this time was a success. He did not have the return of any lip or tongue swelling nor hives. His tryptase and c1 studies are still pending but his IgE returned normal. He is safe to go home but instructed to return if any of the symptoms started up again. Recommendations Pulmonary: Anaphylaxis - s/p famotidine, TXA, FFP, Benadryl, epi 0.3mcg x2 and 125mg methylpred - off epi since yesterday morning with no return of concerning symptoms - can go home of prednisone taper: 40mg for 3 days, 30mg for 5 days, 20mg for 5 days, 10mg for 5 days, 5mg for 5 days - can go home on famotidine and H1 marsha - lisinopril already added to allergy list - avoid ARBs as well - c1 esterase antigen and functional, IgE, tryptase pending Cardiac: No acute concerns Renal: DANIELA on CKD - likely due to anaphylaxis - possible tubular swelling? - s/p1 L LR - avoid nephrotoxic drugs - Cr today improving Hypokalemia - repletement to 3.5 recommended I&O: Intake & Output 05/14/21 05/15/21 05/16/21 05/17/21 23:59 23:59 23:59 23:59 Intake Total 2877 / 3237 1739.5 / 1739.5 1369.0 / 1369.0 30 30 Output Total 1700 / 1700 2775 / 3100 4550 / 4550 1350 / 1350 Balance 1177 / 1537 -1035.5 / -1360.5 -3181.0 / -3181.0 -1320 / -1320 Weight 107 kg 120.1 kg 120.1 kg 108.1 kg Daily Fluid Goal:: even GI Nutrition: Diet ok Date of Last Bowel Movement: 05/16/21 Infectious Disease: No acute concerns Hematologic: No acute concerns Neurologic: No acute concerns Endocrine: Diabetes - can restart home meds Lines: PICC - needs to be removed prior to discharge Code Status: Resuscitation Status Full Code Subjective Critical and life-threatening events over the past 24 hours: He has remained off of epinephrine since yesterday morning without return of any tongue/lip swelling or hives. He is feeling much better today and is anxious to go home. No trouble breathing, no itching. Exam Narrative Exam Narrative: Gen: NAD, normal respiratory effort, well-nourished HENT: PERRL, Mallampati 4. Able to speak much more clearly. Tongue and lip size is normal. Chest: No respiratory distress, normal appearance of chest, clear to auscultation bilaterally, no crackles or wheezes, normal inspiratory effort Heart: regular rate and rhythym, no murmurs, rubs or gallops Abdomen: Non-distended, soft, non tender Extremities: No clubbing. No evidence of hives. Some dry skin on left arm. Neuro: AAOx3 , non focal Psych: cooperative, appropriate mental affect Most Recent VS/Results Last Vital Signs Temp 36.3 C L 05/17/21 07:45 Pulse 82 05/17/21 07:31 Resp 14 05/17/21 07:31 BP 122/65 05/17/21 07:31 Pulse Ox 95 05/16/21 08:01 Laboratory Results - last 24 hr 05/15/21 05/17/21 06:50 06:25 Sodium 141 Potassium 3.6 Chloride 104 Carbon Dioxide 26.3 Anion Gap 10.7 BUN 46 H Creatinine 2.7 H Estimated GFR/1.73 m2 23.62 Glucose 178 H Calcium 8.6 Latex Allergen IgE Ab <0.35 Review of Systems All systems reviewed & are unremarkable except as noted in HPI and below Time spent with patient Time spent in Critical Care: 35 Time spent in Critical care included: Coordination of care, Chart review, Documenting critically ill care, Time at immediate bedside and Discussing cr itically ill care with other medical staff
[2021-05-17 09:53] LABS: IgE 47 IU/mL (<158)
[2021-05-20 13:47] LABS: C1 Esterase Inhib, Functional >90 %of norm
== END 2021-05-17 11:28 | disposition home or self-care (01) ==
LOC: ER 07:51 → ICU 09:13
PROVIDERS: Student in an Organized Health Care Education/Training Program; Admitting Provider Family Medicine; Emergency Provider Emergency Medicine; PCP Physician Assistant Medical; Visit Provider Family Medicine
DX: T88.6XXA Anaphylactic reaction due to adverse effect of correct drug or medicament properly administered, initial encounter (principal); T46.4X5A Adverse effect of angiotensin-converting-enzyme inhibitors, initial encounter; N17.9 Acute kidney failure, unspecified; E11.22 Type 2 diabetes mellitus with diabetic chronic kidney disease; Z79.4 Long term (current) use of insulin; N18.9 Chronic kidney disease, unspecified; Z79.899 Other long term (current) drug therapy; I25.2 Old myocardial infarction; E78.00 Pure hypercholesterolemia, unspecified; Z20.822 Contact with and (suspected) exposure to COVID-19; I12.9 Hypertensive chronic kidney disease with stage 1 through stage 4 chronic kidney disease, or unspecified chronic kidney disease; Z87.891 Personal history of nicotine dependence; I25.10 Atherosclerotic heart disease of native coronary artery without angina pectoris; E78.5 Hyperlipidemia, unspecified; E87.6 Hypokalemia
CPT/HCPCS: 36415; 36569; 36592; 80048; 80053; 83520; 86003; 86850; 86900; 86901; 87635; 96361; 96365; 96368; 96375; 99291; 70360; 71045; 82785; 83605; 83735; 85025; 86161; 94640; 99217; 99220; 99225; G0378; J0171; J1100; J1200; J2930; J7613; P9059

== ENCOUNTER 2021-05-22 18:38 | Outpatient (REF) | payer MEDICARE, SELFPAY ==
[2021-05-22 21:05] LABS: Anion Gap 13.6 mmol/L (3-11); BUN 43 mg/dL (7-18); CO2 22.4 mmol/L (21.0-32.0); CREATININE 2.2 mg/dL (0.70-1.30); Calcium 8.1 mg/dL (8.5-10.1); Chloride 102 mmol/L (98-107); Estimated GFR 29.91 (mL/min/1.73m2); Glucose 248 mg/dL (74-106); Potassium 4.3 mmol/L (3.5-5.1); Sodium 138 mmol/L (136-145); Uric Acid 6.5 mg/dL (3.5-7.2)
== END 2021-05-22 18:39 | disposition home or self-care (01) ==
LOC: NCHCN 18:38
PROVIDERS: PCP Physician Assistant Medical; Visit Provider Physician Assistant Medical
DX: N18.30 Chronic kidney disease, stage 3 unspecified (principal); M10.9 Gout, unspecified
CPT/HCPCS: 80048; 83735; 84550

== ENCOUNTER 2021-05-28 00:27 | Outpatient (CLI) | payer MEDICARE, MEDICAID, SELFPAY ==
--- NOTE | 2021-05-28 | DI.US_ITS ---
Exam(s) US LOWER EXTREMITY VENOUS LT EXAM: US LOWER EXTREMITY VENOUS LT CLINICAL HISTORY: LT LEG PAIN, M79.605, ? DVT. TECHNIQUE: Lower extremity venous ultrasound performed using grayscale, color-flow, and spectral Do ppler analysis. COMPARISON: No exams were available for comparison FINDINGS: The common femoral, femoral and popliteal veins demonstrate normal compressibility, augmentation, and color Doppler. The posterior tibial veins are patent. No saphenous vein thrombosis or other superfi cial venous thrombosis is seen. No hematoma or Salvador's cyst is seen. IMPRESSION: Negative lower extremity ultrasound. No evidence of DVT. DATA REPOSITORY:
== END 2021-05-28 00:47 ==
PROVIDERS: PCP Physician Assistant Medical; Visit Provider Physician Assistant Medical
DX: M79.605 Pain in left leg (principal)
CPT/HCPCS: 93971

== ENCOUNTER 2021-06-03 10:16 | Outpatient (REF) | payer MEDICARE, SELFPAY ==
[2021-06-03 20:00] LABS: BUN 52 mg/dL (7-18); C-Reactive Protein 18.72 mg/dL (0.0-0.3); CREATININE 2.4 mg/dL (0.70-1.30); Calcium 8.9 mg/dL (8.5-10.1); Chloride 99 mmol/L (98-107); Estimated GFR 27.06 (mL/min/1.73m2); Glucose 295 mg/dL (74-106); Magnesium 2.4 mg/dL (1.8-2.4); Potassium 4.4 mmol/L (3.5-5.1); Sodium 137 mmol/L (136-145)
[2021-06-03 20:25] LABS: ESR 47 mm/hr (0-20)
== END 2021-06-03 10:17 | disposition home or self-care (01) ==
LOC: NCHCN 10:16
PROVIDERS: PCP Physician Assistant Medical; Visit Provider Physician Assistant Medical
DX: N18.30 Chronic kidney disease, stage 3 unspecified (principal); M79.605 Pain in left leg
CPT/HCPCS: 80048; 85652; 83735; 86140

== ENCOUNTER 2021-06-10 10:14 | Inpatient (IN) | payer MEDICARE, MEDICAID, SELFPAY ==
[2021-06-10] VITALS (96 sets, daily range): BP systolic 101–128; BP diastolic 40–73; PULSE 56–109; RESP 10–28; TEMP 36.2–36.7; O2SAT 88–99
[2021-06-10 10:45] LABS: Lactate 3.3 mmol/L (0.6-1.4)
[2021-06-10 10:46] LABS: BE (Venous) 3 mmol/L (-2-3); HCO3 (Venous) 27 mmol/L (23-28); O2 Sat (Venous) 45 %; TCO2 (Venous) 25 mmol/L (24-29); pCO2 (Venous) 38 mmHg (41-51); pH (Venous) 7.45 (7.31-7.41); pO2 (Venous) 26 mmHg
[2021-06-10 10:51] LABS: Abs Immature Grans 0.17 10^3/uL (0.0-0.06); Absolute Basophil Count 0.04 10^3/uL (0.0-0.2); Absolute Eosinophil Count 0.12 10^3/uL (0.0-0.7); Basophils % 0.2; Eosinophils % 0.6; HCT 24.7 % (40.0-50.0); HGB 7.7 g/dL (13.5-17.5); Immature Grans % 0.9; Lymphocytes % 3.7; MCH 28.3 pg (27.0-33.0); MCHC 31.2 % (32.0-36.0); MCV 90.8 fL (80-95); MPV 8.7 fL (8.0-11.0); Monocytes % 6.5; Neutrophils % 88.1; Nucleated RBC 0 %; Platelet Count 563 10^3/uL (130-400); RBC 2.72 10^6/uL (4.36-5.78); RDW 13.7 % (11.8-14.1); RDW-SD 45.4 fL; WBC 19.89 10^3/uL (4.4-10.8)
[2021-06-10 10:52] LABS: Absolute Lymphocyte Count 0.74 10^3/uL (1.2-3.4); Absolute Monocyte Count 1.29 10^3/uL (0.1-0.8); Absolute Neutrophil Count 17.52 10^3/uL (1.2-6.7)
[2021-06-10 11:09] LABS: ALT 69 U/L (16-63); AST 45 U/L (15-37); Albumin 1.6 g/dL (3.4-5.0); Alkaline Phosphatase 101 U/L (46-116); Anion Gap 12.6 mmol/L (3-11); BUN 37 mg/dL (7-18); Bilirubin, Total 0.5 mg/dL (0.2-1.0); CO2 24.4 mmol/L (21.0-32.0); CREATININE 2.2 mg/dL (0.70-1.30); Calcium 8.1 mg/dL (8.5-10.1); Chloride 98 mmol/L (98-107); Estimated GFR 29.91 (mL/min/1.73m2); Glucose 360 mg/dL (74-106); Potassium 3.7 mmol/L (3.5-5.1); Sodium 135 mmol/L (136-145)
--- NOTE | 2021-06-10 11:15 | DI.RAD_ITS ---
Exam(s) XR KNEE LT 3V AP,LAT,DRAKE EXAM: XR KNEE LT 3V AP,LAT,DRAKE CLINICAL HISTORY: erythematous knee, large effusion, concern septic. TECHNIQUE: 2D digital imaging was performed. Three views. COMPARISON: CR LEFT KNEE 3 VIEW COMPLETE from 02/28/2013 FINDINGS: BONES: No acute fracture is present. No bony destructive lesion is seen. JOINTS: Severe narrowing of the medial femoral tibial joint space. Chondrocalcinosis.. A large join t effusion is seen. SOFT TISSUE: Marked soft tissue swelling laterally. Vascular calcifications. No visible gas collect ion or foreign body. IMPRESSION: Large joint effusion. Soft tissue swelling greatest laterally. DATA REPOSITORY: RADIATION DOSE DELIVERED:
[2021-06-10 11:41] LABS: ESR 19 mm/hr (0-20)
[2021-06-10 11:44] LABS: C-Reactive Protein 20.96 mg/dL (0.0-0.3)
[2021-06-10] MEDS: Normal Saline 1,000 ML 500 ML IV (11:45)
[2021-06-10] MEDS: PIPERACILLIN/TAZO 3.375 GM in Normal Saline 50 ML IVPB ×3 (11:58→23:59)
[2021-06-10] MEDS: Pantoprazole 40 MG VIAL IVP (11:59)
--- NOTE | 2021-06-10 12:01 | ED.GENADUL_ITS ---
Discharge Plan Disposition Patient Disposition: [facility] INPATIENT Condition: Serious Discharge Details Clinical Impression: Septic arthritis, Acute GI bleeding Admit Date/Time: 06/10/21 13:11 Admit Provider: Nav Albarado Attending Provider: Nav Albarado Primary Care Provider: Antonella Lucas ED Provider: Emily Zamudio Discharge Data Discharge Date/Time-TO BE ENTERED AT DEPARTURE: 06/10/21 13:58 Medical Decision Making Patient with erythema and pain to left knee, concern for septic arthritis Vitals stable upon initial assessment Given concern for septic arthritis, did perform arthrocentesis which did show purulent synovial fluid This was sent for culture Culture is concerning with 142,000 white blood cells and 95% PMNs, gram-positive cocci noted Patient tolerated procedure without incident Patient was also noted to have anemia, hemoglobin of 7.7, hematocrit 24 Guaiac positive, tarry stools noted We will treat with Protonix and observe Of note, patient has been taking Aleve twice a day and was on prednisone last week secondary to a likely lisinopril induced angioedema Blood sugar was markedly elevated at 360 but no evidence of DKA Given 10 units of subcutaneous insulin Patient will need admission to the hospital, he will need to be treated for septic arthritis in addition to further observation and evaluation of anemia likely GI bleed He did take his Plavix this morning He has been hemodynamically stable in the emergency department Consult with Dr. Rice performed Vanco and Zosyn initiated 1 L of normal saline administered Case discussed with Dr. Albarado who is agreeable to admission Medical Records Medical records reviewed: Yes I reviewed the patient's medical records. Lab Data Lab results reviewed: Yes I reviewed the patient's lab results. HPI General Date/Time Provider Initiated Documentation: 06/10/21 10:24 . HPI Narrative: This 70-year-old gentleman with recent admission for anaphylaxis, coronary artery disease, CKD presents with report of pain, swelling, redness to left knee for the past week and a half. Patient states he has had chills this morning and felt like his blood pressure might have been low when he was awoke. He has been feeling lightheaded per patient. She denies any chest pain or shortness of breath. He has significant pain with movement of his left knee. He has been taking prednisone for recent angioedema likely induced by lisinopril which she discontinued last Thursday. He has been taking Aleve twice daily for pain in his knees. He had an ultrasound that was -1-week ago reportedly. He denies any recent falls or injuries. He denies any surgeries previously on the affected knee. Denies IV drug abuse. Related Data Home Medications Medication Instructions Recorded Confirmed Glucophage XR 500 mg 500 mg PO BID NS 03/01/13 05/14/21 tablet,extended release (metformin) Nitrostat 0.4 mg sublingual tablet 0.4 mg SUBLINGUAL PRN PRN NS 03/01/13 06/10/21 (nitroglycerin) Viagra 50 mg tablet (sildenafil) 50 mg PO DAILY PRN tab-cap NS 03/01/13 06/10/21 aspirin 325 mg tablet 325 mg PO DAILY tab-cap NS 03/01/13 05/14/21 epinephrine 0.3 mg/0.3 mL 0.3 mg IM PRN PRN NS 03/01/13 06/10/21 injection, auto-injector furosemide 20 mg tablet (Lasix) 20 mg PO QAM 09/07/18 06/10/21 insulin glargine 100 unit/mL (3 22 unit SUBCUT QPM 04/27/20 06/10/21 mL) subcutaneous pen (Lantus Solostar U-100 Insulin) cetirizine 10 mg tablet 10 mg PO DAILY #0 tab 05/17/21 06/10/21 famotidine (PF) 20 mg/2 mL 20 mg (2 mL) IVP Q24H #0 ml 05/17/21 06/10/21 intravenous solution montelukast 10 mg tablet 10 mg PO DAILY #30 tab 05/17/21 06/10/21 prednisone 10 mg tablet See Rx Instructions .ROUTE 05/17/21 .COMPLEX #45 tab rosuvastatin 10 mg tablet 10 mg PO DAILY #30 tab 05/17/21 06/10/21 insulin aspart U-100 100 unit/mL 15 - 17 unit SUBCUT DIRECTED 06/10/21 06/10/21 (3 mL) subcutaneous pen (Novolog Flexpen U-100 Insulin aspart) metoprolol tartrate 75 mg tablet 75 mg PO BID 06/10/21 06/10/21 Previous Rx's Medication Instructions Recorded cetirizine 10 mg tablet 10 mg PO DAILY #0 tab 05/17/21 famotidine (PF) 20 mg/2 mL 20 mg (2 mL) IVP Q24H #0 ml 05/17/21 intravenous solution montelukast 10 mg tablet 10 mg PO DAILY #30 tab 05/17/21 prednisone 10 mg tablet See Rx Instructions .ROUTE 05/17/21 .COMPLEX #45 tab rosuvastatin 10 mg tablet 10 mg PO DAILY #30 tab 05/17/21 Allergies Allergy/AdvReac Type Severity Reaction Status Date / Time lisinopril Allergy Severe Anaphylaxis Unverified 06/10/21 10:26 varenicline tartrate Allergy Unknown Unverified 06/10/21 10:26 [From Chantix] hornet Allergy facial/throat Uncoded 06/10/21 10:26 swelling General Stated Complaint: Cellulitis JENN: 3 Review of Systems All systems reviewed & are unremarkable except as noted in HPI and below PFSH All Active Problems (Updated 06/10/21 @ 14:43 by BART Espinoza) Septic arthritis (Acute) Acute GI bleeding (Acute) Anaphylactic reaction due to adverse effect of correct drug or medicament properly administered, initial encounter (Acute) CAD (coronary artery disease) (Chronic) Acute kidney injury superimposed on CKD (Acute) Closed left clavicular fracture (Acute 09/07/18) Medical History (Updated 06/10/21 @ 14:43 by BART Espinoza) Diabetes Heart attack Hypercholesterolemia Hypertension Lip swelling Social History Smoking/Tobacco Use Status: Former Tobacco Use Quit Date: 12/22/18 Tobacco: How many years used: 50 Smoking risk assessment performed?: Yes Alcohol Intake: current Alcohol Intake frequency: 3 or more drinks per day Alcohol type: beer Substance use type: does not use Do you feel safe at home: Yes Do you feel safe in your relationship?: Yes Exam Const General: cooperative, no acute distress and ill appearing HENMT Head: normal to inspection Mouth: oral mucosae normal Eyes Sclera: sclerae normal Resp Effort & Inspection: normal respiratory effort Auscultation: clear to auscultation bilaterally Cardio Rate: regular rate Rhythm: regular rhythm Heart Sounds: no murmurs GI Inspection: normal to inspection Skin Other: Cellulitis left lateral leg, no crepitus Extrem Upper/lower leg/hip images: 2 1. Erythema noted, no crepitus Neurovascularly intact Other: Large left knee effusion Decreased range of motion, no overlying erythema to left knee Course Vital Signs Vital signs: Vital Signs Temperature 36.7 C 06/10/21 10:05 Pulse 91 H 06/10/21 10:05 Respiratory Rate 18 06/10/21 10:05 Blood Pressure 117/66 06/10/21 10:05 Pulse Oximetry 97 06/10/21 10:05 Temperature 36.7 C 06/10/21 10:05 Temperature Source Oral 06/10/21 10:05 Pulse 92 H 06/10/21 10:46 Pulse 76 06/10/21 10:50 Respiratory Rate 22 06/10/21 10:50 Respiratory Effort 06/10/21 10:22 Blood Pressure 119/61 06/10/21 10:46 Blood Pressure Mean 76 06/10/21 10:46 Blood Pressure Position Supine 06/10/21 10:05 Pulse Oximetry 98 06/10/21 10:46 Oxygen Delivery Method Room Air 06/10/21 10:05 Oxygen Flow Rate 0 06/10/21 10:05 Pain Level 8 06/10/21 10:05 Lab/Test Results Lab/Test Results: 06/10/21 11:35 Synovial - Left Knee Body Fluid Culture - Pending 06/10/21 11:35 Synovial - Left Knee Gram Stain - Pending 06/10/21 11:01 Blood Blood Culture - Pending 06/10/21 10:49 Blood Blood Culture - Pending Laboratory Tests Range/Units 06/10/21 06/10/21 06/10/21 10:25 10:25 10:25 WBC (4.4-10.8) 10^3/uL 19.89 H RBC (4.36-5.78) 10^6/uL 2.72 L Hgb (13.5-17.5) g/dL 7.7 L Hct (40.0-50.0) % 24.7 L MCV (80-95) fL 90.8 MCH (27.0-33.0) pg 28.3 MCHC (32.0-36.0) % 31.2 L RDW (11.8-14.1) % 13.7 Plt Count (130-400) 10^3/uL 563 H D MPV (8.0-11.0) fL 8.7 Immature Gran % 0.9 Neutrophils % 88.1 Lymphocytes % 3.7 Monocytes % 6.5 Eosinophils % 0.6 Basophils % 0.2 Nucleated RBC % % 0 Absolute Neutrophils (1.2-6.7) 10^3/uL 17.52 H Absolute Lymphocytes (1.2-3.4) 10^3/uL 0.74 L Absolute Monocytes (0.1-0.8) 10^3/uL 1.29 H Absolute Eosinophils (0.0-0.7) 10^3/uL 0.12 Absolute Basophils (0.0-0.2) 10^3/uL 0.04 VBG pH (7.31-7.41) VBG pCO2 (41-51) mmHg VBG pO2 mmHg VBG HCO3 (23-28) mmol/L VBG Total CO2 (24-29) mmol/L VBG O2 Saturation % VBG Base Excess (-2-3) mmol/L VBG Lactate (0.6-1.4) mmol/L 3.3 H* Sodium (136-145) mmol/L 135 L Potassium (3.5-5.1) mmol/L 3.7 Chloride (98-107) mmol/L 98 Carbon Dioxide (21.0-32.0) mmol/L 24.4 Anion Gap (3-11) mmol/L 12.6 H BUN (7-18) mg/dL 37 H Creatinine (0.70-1.30) mg/dL 2.2 H Estimated GFR/1.73 m2 (mL/min/1.73m2) 29.91 Glucose (74-106) mg/dL 360 H Calcium (8.5-10.1) mg/dL 8.1 L Total Bilirubin (0.2-1.0) mg/dL 0.5 AST (15-37) U/L 45 H ALT (16-63) U/L 69 H Alkaline Phosphatase (46-116) U/L 101 C-Reactive Protein (0.0-0.3) mg/dL Total Protein (6.4-8.2) g/dL 7.0 Albumin (3.4-5.0) g/dL 1.6 L Fluid Crystals Fluid Crystal Source Range/Units 06/10/21 06/10/21 06/10/21 10:25 10:25 11:35 WBC (4.4-10.8) 10^3/uL RBC (4.36-5.78) 10^6/uL Hgb (13.5-17.5) g/dL Hct (40.0-50.0) % MCV (80-95) fL MCH (27.0-33.0) pg MCHC (32.0-36.0) % RDW (11.8-14.1) % Plt Count (130-400) 10^3/uL MPV (8.0-11.0) fL Immature Gran % Neutrophils % Lymphocytes % Monocytes % Eosinophils % Basophils % Nucleated RBC % % Absolute Neutrophils (1.2-6.7) 10^3/uL Absolute Lymphocytes (1.2-3.4) 10^3/uL Absolute Monocytes (0.1-0.8) 10^3/uL Absolute Eosinophils (0.0-0.7) 10^3/uL Absolute Basophils (0.0-0.2) 10^3/uL VBG pH (7.31-7.41) 7.45 H VBG pCO2 (41-51) mmHg 38 L VBG pO2 mmHg 26 VBG HCO3 (23-28) mmol/L 27 VBG Total CO2 (24-29) mmol/L 25 VBG O2 Saturation % 45 VBG Base Excess (-2-3) mmol/L 3 VBG Lactate (0.6-1.4) mmol/L Sodium (136-145) mmol/L Potassium (3.5-5.1) mmol/L Chloride (98-107) mmol/L Carbon Dioxide (21.0-32.0) mmol/L Anion Gap (3-11) mmol/L BUN (7-18) mg/dL Creatinine (0.70-1.30) mg/dL Estimated GFR/1.73 m2 (mL/min/1.73m2) Glucose (74-106) mg/dL Calcium (8.5-10.1) mg/dL Total Bilirubin (0.2-1.0) mg/dL AST (15-37) U/L ALT (16-63) U/L Alkaline Phosphatase (46-116) U/L C-Reactive Protein (0.0-0.3) mg/dL 20.96 H Total Protein (6.4-8.2) g/dL Albumin (3.4-5.0) g/dL Fluid Crystals See Comment Fluid Crystal Source L Knee Procedures Joint Aspiration/Injection Joint Asp./Inject. 1: Time Out Performed: Yes Side of body: right Joint Aspirated: knee Skin Prep: Povidone-Iodine1% Local Anesthetic: Lidocaine 1% Needle Size Used: 18G Fluid Obtained: purulent Total fluid obtained (mL): 50 Patient Tolerated Procedure: well Complications: local bleeding Critical Care Time Critical Care Time Critical Care Time: Yes Total Critical Care Time: 40 Attestation: iv antibiotics, iv fluids, telemetry monitoring, diagnostic labs, admission to hospital, arthrocentesis
[2021-06-10 12:13] LABS: Clarity Purulent
[2021-06-10] MEDS: VANCOMYCIN/WATER (PEG) 2 GM/400 ML BAG IVPB (12:22)
[2021-06-10 12:32] LABS: Mononuclear Cells 5 %; Polynuclear Cells 95 %
--- NOTE | 2021-06-10 13:00 | RT.EKG_ITS ---
APPROVED REPORT Exam: Resting ECG Reason for Exam: gi bleed Patient Location: E HR:81 bpm ECG Measurements Heart Rate 81 AXIS NV 193 P 49 QRSd 85 QRS 5 QT 363 T 207 QTc 451 Conclusion Sinus rhythm...normal P axis, V-rate 60- 99 Sinus pause...long R-R interval, normal QRSd Sinus rhythm at 81, normal axis, non-specific ST changes, no STEMI, non-diagnostic EKG
[2021-06-10] MEDS: Acetaminophen 325 MG TAB 650 MG PO (13:06)
[2021-06-10] MEDS: oxyCODONE 5 MG TAB PO ×2 (13:06→19:32)
[2021-06-10 13:43] LABS: Source Nasal/Nares
[2021-06-10] MEDS: Insulin REGULAR-Human 100 UNITS/ML UNIT 10 UNITS SC (14:16)
[2021-06-10 14:20] LABS: COVID-19 PCR Negative (Negative)
[2021-06-10] MEDS: Lactated Ringers 1,000 ML 500 ML IV (14:29)
[2021-06-10] MEDS: Senna TAB 2 TAB PO (14:30)
--- NOTE | 2021-06-10 15:10 | HPE_ITS ---
Date of service: 06/10/21 Time of Service: 15:10 Assessment and Plan Assessment and plan (1) Septic arthritis: Status: Acute Assessment and plan: Elevated WBC count and lactate. Significantly elevated WBCs in knee aspirate. [place] diaphoretic upon wakening. LIkely septic joint. Calcium phyrophosphate crystals also noted in knee aspirate. [place] joint. Cont Vanc Zosyn. MRSA screen. Ortho consulted. Washout of knee planned. Last dose of Plavix was morning of admission. Received 1L IV NS in ED. Administering 500ml LR upon arrival to ICU. Lactate at 1700. (2) Acute GI bleeding: Status: Acute Assessment and plan: Drop in hgb from 13.6 on 05/14/21 to 7.7. He recently finished a prednisone taper and has been using Aleve BID. Concerning for an upper GI bleed. Melanotic stools that were heme positive in ED. Repeat H/H at 1700. Will contact general surgery if Hgb continues to decline for possible endoscopy. (3) CAD (coronary artery disease): Status: Chronic Assessment and plan: No angina. Does have some CABRERA but likely related to his anemia. Hold ASA and Plavix d/t acute anemia; likely GI bleed. Cont BB and statin. (4) Diabetes: Assessment and plan: Cont basal/bolus insulin and diabetic diet. Monitor. (5) Hypertension: Assessment and plan: On metoprolol. BP in the 100's to 110's currently in background of acute anemia. Monitor. (6) Hypercholesterolemia: Assessment and plan: Cont Rosuvastatin. (7) CKD (chronic kidney disease): Status: Chronic Assessment and plan: Creatinine 2.2; above baseline of around 1.5, but improved from last admission when it was as high as 3.8. Avoid nephroxins and hypotension. Monitor. (8) DVT prophylaxis: Status: Acute Assessment and plan: Avoid chemical prophylaxis d/t acute anemia. SCDs; however, the LLE is painful from the knee down to the ankle so may not tolerate. History of Present Illness History of Present Illness Chief Complaint: Left knee pain/swelling/redness Narrative: This is a 70 yo male with a PMH of CAD, CKD, recently admitted to [facility] for allergic reaction with urticaria and swelling of tongue. He presented to the ED currently with c/o left knee pain, swelling and redness for appx the past 1.5 weeks. He endorsed feeling sweaty upon awakening on the AM of admission. He also felt his BP might have been low / lightheaded. He denies any trauma to the leg/knee. He has been taking Aleve BID for the knee pain and is also on a prednisone taper for the recent allergic reaction. Given the tongue swelling, a component of angioedema suspected and his lisinopril had been stopped. No CP, fever. No rashes/hives, swelling. VS: Temperature ?36.7 C ?06/10/21 10:05 Pulse ?91 H ?06/10/21 10:05 Respiratory Rate ?18 ?06/10/21 10:05 Blood Pressure ?117/66 ?06/10/21 10:05 Pulse Oximetry ?97 ?06/10/21 10:05 In the ED his left knee showed an area of the left lateral aspect of the knee. WBC count 19.89. Hgb 7.7. Platelets 563. Lactate 3.3. Na 135. K 3.7. BUN 37. Creatinine 2.2. Glucose 360. AST 45. ALT 69. CRP 20.96 Aspirate of knee: Yellow, purulent fluid. 142,660 WBC's. 95 polys. Rare calcium pyrophosphate crystals. Vancomycin and Zosyn initiated. Ortho consulted. Stool was guaiac positive. Protonix initiated. 10 units of insulin administered. 1L NS administered. Admitted to the ICU for close observation. PFSH All Active Problems (Updated 06/10/21 @ 16:11 by Nav Albarado MD) DVT prophylaxis (Acute) CKD (chronic kidney disease) (Chronic) Acute anemia (Acute) Septic arthritis (Acute) Acute GI bleeding (Acute) Anaphylactic reaction due to adverse effect of correct drug or medicament properly administered, initial encounter (Acute) CAD (coronary artery disease) (Chronic) Acute kidney injury superimposed on CKD (Acute) Closed left clavicular fracture (Acute 09/07/18) Medical History Diabetes Heart attack Hypercholesterolemia Hypertension Lip swelling Social History Smoking/Tobacco Use Status: Former Tobacco Use Quit Date: 12/22/18 Tobacco: How many years used: 50 Smoking risk assessment performed?: Yes Alcohol Intake: current Alcohol Intake frequency: 3 or more drinks per day Alcohol type: beer Substance use type: does not use Do you feel safe at home: Yes Do you feel safe in your relationship?: Yes Meds Allergies and Home Medications Allergies Allergy/AdvReac Type Severity Reaction Status Date / Time lisinopril Allergy Severe Anaphylaxis Unverified 06/10/21 10:26 varenicline tartrate Allergy Unknown Unverified 06/10/21 10:26 [From Chantix] hornet Allergy facial/throat Uncoded 06/10/21 10:26 swelling Home Medications Medication Instructions Recorded Confirmed Type Glucophage XR 500 mg 500 mg PO BID NS 03/01/13 05/14/21 History tablet,extended release (metformin) Nitrostat 0.4 mg sublingual tablet 0.4 mg SUBLINGUAL PRN PRN NS 03/01/13 06/10/21 History (nitroglycerin) Viagra 50 mg tablet (sildenafil) 50 mg PO DAILY PRN tab-cap NS 03/01/13 06/10/21 History aspirin 325 mg tablet 325 mg PO DAILY tab-cap NS 03/01/13 05/14/21 History epinephrine 0.3 mg/0.3 mL 0.3 mg IM PRN PRN NS 03/01/13 06/10/21 History injection, auto-injector furosemide 20 mg tablet (Lasix) 20 mg PO QAM 09/07/18 06/10/21 History insulin glargine 100 unit/mL (3 22 unit SUBCUT QPM 04/27/20 06/10/21 History mL) subcutaneous pen (Lantus Solostar U-100 Insulin) cetirizine 10 mg tablet 10 mg PO DAILY #0 tab 05/17/21 06/10/21 Rx famotidine (PF) 20 mg/2 mL 20 mg (2 mL) IVP Q24H #0 ml 05/17/21 06/10/21 Rx intravenous solution montelukast 10 mg tablet 10 mg PO DAILY #30 tab 05/17/21 06/10/21 Rx prednisone 10 mg tablet See Rx Instructions .ROUTE 05/17/21 Rx .COMPLEX #45 tab rosuvastatin 10 mg tablet 10 mg PO DAILY #30 tab 05/17/21 06/10/21 Rx insulin aspart U-100 100 unit/mL 15 - 17 unit SUBCUT DIRECTED 06/10/21 06/10/21 History (3 mL) subcutaneous pen (Novolog Flexpen U-100 Insulin aspart) metoprolol tartrate 75 mg tablet 75 mg PO BID 06/10/21 06/10/21 History Exam Narrative Exam Narrative: Lying in bed. Pleasant, conversant, NAD Const Nutritional Appearance: overweight Orientation: alert and oriented x3 Eyes General: appearance normal, both eyes and all related structures Sclera: sclerae normal Resp Effort & Inspection: normal respiratory effort Auscultation: clear to auscultation bilaterally Cardio Rate: regular rate Rhythm: regular rhythm Heart Sounds: S1 normal and S2 normal GI Palpation: soft and nontender Auscultation: normal bowel sounds Skin General skin exam: no rashes or lesions noted Extrem General: no pedal edema and no calf tenderness Psych Appearance: grossly normal Mental Status: mental status grossly normal Mood: congruent mood Affect: normal affect Results Labs Result diagrams: 06/10/21 10:25 06/10/21 10:25 Labs: Laboratory Results - last 24 hr 06/10/21 06/10/21 06/10/21 10:25 10:25 10:25 WBC 19.89 H RBC 2.72 L Hgb 7.7 L Hct 24.7 L MCV 90.8 MCH 28.3 MCHC 31.2 L RDW 13.7 Plt Count 563 H D MPV 8.7 Immature Gran % 0.9 Neutrophils % 88.1 Lymphocytes % 3.7 Monocytes % 6.5 Eosinophils % 0.6 Basophils % 0.2 Nucleated RBC % 0 Absolute Neutrophils 17.52 H Absolute Lymphocytes 0.74 L Absolute Monocytes 1.29 H Absolute Eosinophils 0.12 Absolute Basophils 0.04 ESR VBG pH VBG pCO2 VBG pO2 VBG HCO3 VBG Total CO2 VBG O2 Saturation VBG Base Excess VBG Lactate 3.3 H* Sodium 135 L Potassium 3.7 Chloride 98 Carbon Dioxide 24.4 Anion Gap 12.6 H BUN 37 H Creatinine 2.2 H Estimated GFR/1.73 m2 29.91 Glucose 360 H Calcium 8.1 L Total Bilirubin 0.5 AST 45 H ALT 69 H Alkaline Phosphatase 101 C-Reactive Protein Total Protein 7.0 Albumin 1.6 L Fluid Source Fluid Color Fluid Clarity Fluid WBC Fld Polynuclear WBCs % Fluid Mononuclear Cell Fluid Crystals Fluid Crystal Source COVID-19 Source SARS-CoV-2 (PCR) Add-On Test Request Patient ABO/Rh Antibody Screen 06/10/21 06/10/21 06/10/21 10:25 10:25 10:25 WBC RBC Hgb Hct MCV MCH MCHC RDW Plt Count MPV Immature Gran % Neutrophils % Lymphocytes % Monocytes % Eosinophils % Basophils % Nucleated RBC % Absolute Neutrophils Absolute Lymphocytes Absolute Monocytes Absolute Eosinophils Absolute Basophils ESR 19 VBG pH 7.45 H VBG pCO2 38 L VBG pO2 26 VBG HCO3 27 VBG Total CO2 25 VBG O2 Saturation 45 VBG Base Excess 3 VBG Lactate Sodium Potassium Chloride Carbon Dioxide Anion Gap BUN Creatinine Estimated GFR/1.73 m2 Glucose Calcium Total Bilirubin AST ALT Alkaline Phosphatase C-Reactive Protein 20.96 H Total Protein Albumin Fluid Source Fluid Color Fluid Clarity Fluid WBC Fld Polynuclear WBCs % Fluid Mononuclear Cell Fluid Crystals Fluid Crystal Source COVID-19 Source SARS-CoV-2 (PCR) Add-On Test Request Patient ABO/Rh Antibody Screen 06/10/21 06/10/21 06/10/21 11:35 11:35 11:54 WBC RBC Hgb Hct MCV MCH MCHC RDW Plt Count MPV Immature Gran % Neutrophils % Lymphocytes % Monocytes % Eosinophils % Basophils % Nucleated RBC % Absolute Neutrophils Absolute Lymphocytes Absolute Monocytes Absolute Eosinophils Absolute Basophils ESR VBG pH VBG pCO2 VBG pO2 VBG HCO3 VBG Total CO2 VBG O2 Saturation VBG Base Excess VBG Lactate Sodium Potassium Chloride Carbon Dioxide Anion Gap BUN Creatinine Estimated GFR/1.73 m2 Glucose Calcium Total Bilirubin AST ALT Alkaline Phosphatase C-Reactive Protein Total Protein Albumin Fluid Source L Knee Fluid Color Yellow Fluid Clarity Purulent Fluid WBC 305323 Fld Polynuclear WBCs % 95 Fluid Mononuclear Cell 5 Fluid Crystals See Comment Fluid Crystal Source L Knee COVID-19 Source SARS-CoV-2 (PCR) Add-On Test Request Patient ABO/Rh A Positive Antibody Screen NEGATIVE 06/10/21 06/10/21 06/10/21 12:43 13:28 Unknown WBC RBC Hgb Hct MCV MCH MCHC RDW Plt Count MPV Immature Gran % Neutrophils % Lymphocytes % Monocytes % Eosinophils % Basophils % Nucleated RBC % Absolute Neutrophils Absolute Lymphocytes Absolute Monocytes Absolute Eosinophils Absolute Basophils ESR VBG pH VBG pCO2 VBG pO2 VBG HCO3 VBG Total CO2 VBG O2 Saturation VBG Base Excess VBG Lactate Sodium Potassium Chloride Carbon Dioxide Anion Gap BUN Creatinine Estimated GFR/1.73 m2 Glucose Calcium Total Bilirubin AST ALT Alkaline Phosphatase C-Reactive Protein Total Protein Albumin Fluid Source Fluid Color Fluid Clarity Fluid WBC Fld Polynuclear WBCs % Fluid Mononuclear Cell Fluid Crystals Fluid Crystal Source COVID-19 Source Cancelled Nasal/Nares SARS-CoV-2 (PCR) Cancelled Negative Add-On Test Request Cancelled Patient ABO/Rh Antibody Screen Last Vital Signs Temp 36.6 C 06/10/21 14:17 Pulse 88 06/10/21 14:31 Resp 21 06/10/21 14:31 BP 109/55 L 06/10/21 14:31 Pulse Ox 97 06/10/21 14:31
--- NOTE | 2021-06-10 15:18 | OCONE_ITS ---
Date of service: 06/10/21 Time of Service: 13:00 History of Present Illness History of Present Illness Chief Complaint: Left Knee Pain/Swelling Narrative: Bear presents to the emergency department today for worsening left knee pain and swelling. He feels that this pain really started about a week and a half ago. He denies any particular trauma. He has had pain in this left knee before. He has been diagnosed with arthritis and has seen the [facility] in the past for the left knee. However, he has modified his activities to avoid any need for other invasive procedures about the left knee. He was recently admitted for an anaphylaxis reaction with angioedema. He was recovering from this and was on a long steroid taper. Again, no other trauma or acute issues when the knee started to hurt about a week and a half ago. Over the last 3 to 4 days the pain has acutely worsened with some increasing redness about the left leg, swelling, and pain with ambulation. This morning he felt lightheaded and diaphoretic. He was unable to place any significant weight on the left leg and therefore called EMS services where he was brought to the emergency department. He was noted to have a large effusion about the left knee along with an area of swelling distal and lateral to the left knee joint. A knee aspirate was obtained by Emily Zamudio in the ED. He denies any distal numbness or tingling. He does report some chills but no monik fever. He denies any cough or other sick contacts. Consults Consult date: 06/10/21 Requesting physician: Emily Zamudio Consult Reason Left knee septic arthritis Assessment and Plan Assessment and plan (1) Septic arthritis of knee, left: Status: Acute Assessment and plan: Bear is a 70-year-old who has septic arthritis of the left knee. This is a pokagon knee and is quite rare. He does have hyperglycemia in the setting of insulin-dependent diabetes and I am concerned that his glucose has been running high with his chronic steroid use. He has also been on steroids which does increase the risk of infection. However, it still quite unusual. Nevertheless, the cell count and initial Gram stain from the left knee suggest this is infected. Therefore, I recommend that we proceed with urgent debridement. I would recommend this is done arthroscopically as it is shown to be just as effective as open debridement. However, the area of induration about the lateral aspect of the left knee is likely separate from the left knee effusion or communicates with only a small channel and therefore I would be prepared to do an open procedure to the left lateral leg and knee abscess. I am also concerned about his overall condition as he presents today with anemia and multiple lab abnormalities I worry that this loss of blood is acute and is worsening at this time which may need further intervention. Additionally, I am concerned about any decompensation. Blood cultures have been obtained. We will trend his inflammatory markers. Assuming he is stable overnight we will proceed with operative invention about the left knee with a knee arthroscopy. I reviewed this with him. I discussed other treatment options but recommend surgical intervention. I discussed the risk of the procedure to include continued infection, pain, stiffness, worsening arthritis, blood clot, need for repeat procedures. Despite these risks, he elects to proceed. N.p.o. after midnight. Continue to trend his hemoglobin. Hold aspirin and Plavix. (2) Cutaneous abscess of left knee: Status: Acute Assessment and plan: The abscess about the left knee appears to be superficial on top of the anterolateral tissue and lateral. It seems to be separate from the left knee. I would perform a small open irrigation debridement this area as I am concerned that there is an area of abscess here as well. This to be done at the same time as the left knee arthroscopy. I reviewed this with him as well discussed this wrist which are the same as above. All of his questions were answered. Review of Systems All systems reviewed & are unremarkable except as noted in HPI and below PFSH All Active Problems (Updated 06/10/21 @ 17:19 by Alex Rice MD) Cutaneous abscess of left knee (Acute) Septic arthritis of knee, left (Acute) DVT prophylaxis (Acute) CKD (chronic kidney disease) (Chronic) Acute anemia (Acute) Septic arthritis (Acute) Acute GI bleeding (Acute) Anaphylactic reaction due to adverse effect of correct drug or medicament properly administered, initial encounter (Acute) CAD (coronary artery disease) (Chronic) Acute kidney injury superimposed on CKD (Acute) Closed left clavicular fracture (Acute 09/07/18) Medical History Diabetes Heart attack Hypercholesterolemia Hypertension Lip swelling Social History Smoking/Tobacco Use Status: Former Tobacco Use Quit Date: 12/22/18 Tobacco: How many years used: 50 Smoking risk assessment performed?: Yes Alcohol Intake: current Alcohol Intake frequency: 3 or more drinks per day Alcohol type: beer Substance use type: does not use Do you feel safe at home: Yes Do you feel safe in your relationship?: Yes Exam Narrative Exam Narrative: No acute distress. Alert and orient x3. Not particular pale appearing. Anicteric. Neck range of motion is without pain and full. Evaluation of the left leg shows the left knee held in about 60 degrees of flexion. There is a notable effusion about the left knee. The knee itself is not particularly warm nor swollen. However, there is a indurated area over the lateral aspect of the proximal left leg starting about the level of the joint and extending distally past the fibular head. This area is warm and swollen and appears fluctuant. There is also some generalized swelling, 2+ pitting edema, throughout the left leg. There is pain to palpation of this area as well as along the joint line of the left knee. Range of motion causes significant pain and therefore was not further attempted. Ankle dorsiflexion and plantarflexion is intact along with great toe extension and flexion. Sensation intact to light touch over the deep and superficial peroneal nerve. Palpable DP and PT pulse. There is some erythema seen along the lateral aspect of the left leg. However, there is not encompassing erythema throughout the lower leg nor is or any streaking erythema seen. No significant lymphadenopathy palpated. While difficult to appreciate due to the pain in the left knee, range of motion the left hip does not seem to increase any pain. Results Last Vital Signs Temp 36.6 C 06/10/21 14:17 Pulse 88 06/10/21 14:31 Resp 21 06/10/21 14:31 BP 109/55 L 06/10/21 14:31 Pulse Ox 97 06/10/21 14:31 Labs Result diagrams: 06/10/21 10:25 06/10/21 10:25 Labs: Laboratory Results - last 24 hr 06/10/21 06/10/21 06/10/21 10:25 10:25 10:25 WBC 19.89 H RBC 2.72 L Hgb 7.7 L Hct 24.7 L MCV 90.8 MCH 28.3 MCHC 31.2 L RDW 13.7 Plt Count 563 H D MPV 8.7 Immature Gran % 0.9 Neutrophils % 88.1 Lymphocytes % 3.7 Monocytes % 6.5 Eosinophils % 0.6 Basophils % 0.2 Nucleated RBC % 0 Absolute Neutrophils 17.52 H Absolute Lymphocytes 0.74 L Absolute Monocytes 1.29 H Absolute Eosinophils 0.12 Absolute Basophils 0.04 ESR VBG pH VBG pCO2 VBG pO2 VBG HCO3 VBG Total CO2 VBG O2 Saturation VBG Base Excess VBG Lactate 3.3 H* Sodium 135 L Potassium 3.7 Chloride 98 Carbon Dioxide 24.4 Anion Gap 12.6 H BUN 37 H Creatinine 2.2 H Estimated GFR/1.73 m2 29.91 Glucose 360 H Calcium 8.1 L Total Bilirubin 0.5 AST 45 H ALT 69 H Alkaline Phosphatase 101 C-Reactive Protein Total Protein 7.0 Albumin 1.6 L Fluid Source Fluid Color Fluid Clarity Fluid WBC Fld Polynuclear WBCs % Fluid Mononuclear Cell Fluid Crystals Fluid Crystal Source COVID-19 Source SARS-CoV-2 (PCR) Add-On Test Request Patient ABO/Rh Antibody Screen 06/10/21 06/10/21 06/10/21 10:25 10:25 10:25 WBC RBC Hgb Hct MCV MCH MCHC RDW Plt Count MPV Immature Gran % Neutrophils % Lymphocytes % Monocytes % Eosinophils % Basophils % Nucleated RBC % Absolute Neutrophils Absolute Lymphocytes Absolute Monocytes Absolute Eosinophils Absolute Basophils ESR 19 VBG pH 7.45 H VBG pCO2 38 L VBG pO2 26 VBG HCO3 27 VBG Total CO2 25 VBG O2 Saturation 45 VBG Base Excess 3 VBG Lactate Sodium Potassium Chloride Carbon Dioxide Anion Gap BUN Creatinine Estimated GFR/1.73 m2 Glucose Calcium Total Bilirubin AST ALT Alkaline Phosphatase C-Reactive Protein 20.96 H Total Protein Albumin Fluid Source Fluid Color Fluid Clarity Fluid WBC Fld Polynuclear WBCs % Fluid Mononuclear Cell Fluid Crystals Fluid Crystal Source COVID-19 Source SARS-CoV-2 (PCR) Add-On Test Request Patient ABO/Rh Antibody Screen 06/10/21 06/10/21 06/10/21 11:35 11:35 11:54 WBC RBC Hgb Hct MCV MCH MCHC RDW Plt Count MPV Immature Gran % Neutrophils % Lymphocytes % Monocytes % Eosinophils % Basophils % Nucleated RBC % Absolute Neutrophils Absolute Lymphocytes Absolute Monocytes Absolute Eosinophils Absolute Basophils ESR VBG pH VBG pCO2 VBG pO2 VBG HCO3 VBG Total CO2 VBG O2 Saturation VBG Base Excess VBG Lactate Sodium Potassium Chloride Carbon Dioxide Anion Gap BUN Creatinine Estimated GFR/1.73 m2 Glucose Calcium Total Bilirubin AST ALT Alkaline Phosphatase C-Reactive Protein Total Protein Albumin Fluid Source L Knee Fluid Color Yellow Fluid Clarity Purulent Fluid WBC [id number] Fld Polynuclear WBCs % 95 Fluid Mononuclear Cell 5 Fluid Crystals See Comment Fluid Crystal Source L Knee COVID-19 Source SARS-CoV-2 (PCR) Add-On Test Request Patient ABO/Rh A Positive Antibody Screen NEGATIVE 06/10/21 06/10/21 06/10/21 12:43 13:28 Unknown WBC RBC Hgb Hct MCV MCH MCHC RDW Plt Count MPV Immature Gran % Neutrophils % Lymphocytes % Monocytes % Eosinophils % Basophils % Nucleated RBC % Absolute Neutrophils Absolute Lymphocytes Absolute Monocytes Absolute Eosinophils Absolute Basophils ESR VBG pH VBG pCO2 VBG pO2 VBG HCO3 VBG Total CO2 VBG O2 Saturation VBG Base Excess VBG Lactate Sodium Potassium Chloride Carbon Dioxide Anion Gap BUN Creatinine Estimated GFR/1.73 m2 Glucose Calcium Total Bilirubin AST ALT Alkaline Phosphatase C-Reactive Protein Total Protein Albumin Fluid Source Fluid Color Fluid Clarity Fluid WBC Fld Polynuclear WBCs % Fluid Mononuclear Cell Fluid Crystals Fluid Crystal Source COVID-19 Source Cancelled Nasal/Nares SARS-CoV-2 (PCR) Cancelled Negative Add-On Test Request Cancelled Patient ABO/Rh Antibody Screen Imaging Imaging Studies: X-ray of the left knee. This demonstrates some notable arthritic changes special about the medial compartment where there appears to be an osteochondral defect. Chondrocalcinosis present. There is notable soft tissue swelling seen on the lateral left of the proximal left leg. Large effusion is present. No lucent or suspicious lesions. Bedside ultrasound was also performed by Dr. Duncan which showed significant edema over the lateral left leg but no clear abscess although significant fluid was suprafascial in nature.
[2021-06-10 17:28] LABS: Lactate 1.7 mmol/L (0.6-1.4)
[2021-06-10 17:29] LABS: HCT 27.8 % (40.0-50.0); HGB 8.8 g/dL (13.5-17.5)
[2021-06-10] MEDS: Insulin Aspart 300 UNITS/3 ML PEN 15 UNITS SC (17:35)
[2021-06-10] MEDS: Polyethylene Glycol 3350 17 GM PACKET PO (17:35)
[2021-06-10] MEDS: Metoprolol 25 MG TAB 75 MG PO (19:32)
[2021-06-10 21:12] LABS: Lab Add On Test DONE
[2021-06-10 21:25] LABS: Hemoglobin A1C 9.6 % (<5.7)
[2021-06-10] MEDS: Insulin Glargine 300 UNITS/3 ML PEN 22 UNITS SC (22:09)
[2021-06-11] VITALS (76 sets, daily range): BP systolic 84–124; BP diastolic 41–69; PULSE 55–99; RESP 12–33; TEMP 36.5–37.1; O2SAT 89–100; BMI 32.5
--- NOTE | 2021-06-11 | DI.US_ITS ---
APPROVED REPORT EXAM: Comprehensive 2D, Doppler, and color-flow Echocardiogram Patient Location: In-Patient Room/Bed: [id number] Block Captain: Paula Jones RDCS (AE) Indications: Gram positive bacteremia Other Information Study Quality: Adequate. Technically limited study due to inability to position patient, body habitus . Conclusion Normal left ventricular wall thickness and chamber size. Estimated ejection fraction is 55 to 60%. Wall motion is normal Normal right ventricular size and systolic function Both atria are normal in size Aortic valve is trileaflet and sclerotic. There is no aortic stenosis or regurgitation Mild mitral annular calcification. Mild mitral regurgitation Normal tricuspid valve with trace regurgitation. RVSP could not be estimated Borderline dilated ascending aorta Wall motion Left Ventricle The left ventricle is normal size. The left ventricular systolic function is normal. The left ventric ular ejection fraction is within the normal range. There is normal left ventricular wall thickness. T here is normal LV segmental wall motion. There is no ventricular septal defect visualized. LVEF is 57 %. Right Ventricle The right ventricle is normal size. The right ventricular systolic function is normal. Atria The left atrium size is normal. The right atrium size is normal. The interatrial septum is intact wit h no evidence for an atrial septal defect. Aortic Valve The Aortic valve is sclerotic. Aortic valve is trileaflet. There is no aortic valvular stenosis. No a ortic regurgitation is present. Mitral Valve Mild mitral annular calcification. No evidence of mitral valve stenosis. Mild mitral regurgitation. Tricuspid Valve The tricuspid valve is normal in structure. There is no tricuspid valve stenosis. Trace tricuspid reg urgitation. Unable to assess PA pressure. Pulmonic Valve The pulmonary valve is normal in structure. There is no pulmonic valvular stenosis. There is no pulmo gaviota valvular regurgitation. Great Vessels The aortic root is normal in size. The ascending aorta is borderline dilated. Aortic arch is not well visualized. IVC is normal in size and collapses >50% with inspiration. Pericardium There is no pericardial effusion. 2D Dimensions IVSD d PLAX 1.08 cm M: 0.6-1.2 LV Vol A2C d MOD 94.4 mL LVPW d PLAX 1.09 cm M: 0.6 - 1.2 LV Vol A4C d MOD 108.0 mL LVID d PLAX 4.94 cm M: 4.2 - 5.8 LA vol/ BSA A2C s A-L 29.3 mL/m2 LVDs 3.35 cm M: 2.5 - 4.0 LA vol/ BSA A4C s A-L 43.5 mL/m2 Ao Root d 3.15 cm M: 3.1 - 3.7 LA Vol/ BSA Biplane s A-L 37.7 mL/m2 RA Area A4C 19.49 cm2 LA Area A4C s MOD 29.12 cm2 RA Vol/ BSA A4C s A-L 23.1 mL/m2 LA Area A2C s MOD 22.62 cm2 Ao Asc Diam d 3.53 cm M: 2.6 - 3.4 LV EF A4C MOD 56.3 % LV EF Teichholz 58.9 % LV EF A2C MOD 57.5 % LVEF (Nguyen's) 57.79 % M: 52 - 72 LV EF Biplane MOD 57.8 % LV Volume 74.39 mL M: 62 - 150 SV 60.31 mL LV Volume Index 31.65 mL/m2 M: 34 - 74 SV Index 25.67 mL/m2 LV Vol Biplane MOD 104.4 mL FS 31.25 % LV Diastology MV E' medial 0.075 (>0.07 m/s) E/A Ratio 1.3 LV E/e MED 14.95 (<14) MV E Vmax 1.12 (0.4-1.3 m/s) MV E' lateral 0.133 (>0.1 m/s) MV A Vmax 0.85 (0.4-1.3 m/s) LV E/e LAT 8.40 (<14) MV E/A Ratio 1.28 MV E/E' medial 14.96 MV E/E' lateral 8.42 Aortic Valve LVOT Area 3.40 cm2 AoV Area Vmax 2.28 cm2 LVOT Vmax 1.15 m/s AoV Area/ BSA (Vmax) 0.97 cm2/m2 LVOT Mean Flavio. 0.72 m/s STEFANI Mean Flavio. 1.95 cm2 LVOT Peak Grad 5.3 mmHg STEFANI Mean Flavio. Index 0.83 cm2/m2 LVOT Mean Grad 2.5 mmHg LVOT VTI 0.229 m LVOT Diam s 2.05 cm AoV Vmax 1.72 m/s Velocity Ratio 0.66 AoV Mean Flavio. 1.26 m/s AoV Peak Grad 11.8 mmHg LVOT SV 78.10 mL AoV Mean Grad 7.0 mmHg AoV VTI 0.310 m AoV Area VTI 2.52 cm2 AoV Area/ BSA (VTI) 1.07 cm/m2 Mitral Valve MV DT 182 (160-240 msec) MV PHT 53 msec MV Area PHT 4.16 cm2 MV VTI 0.220 m MV Area VTI 3.55 (4.0-6.0 cm2) Pulmonary Valve PV Vmax 1.11 (0.5-1.5 m/s) RVOT Peak Gr. 3.66 mmHg PV Peak Grad 4.9 mmHg RVOT Mean Gr. 2.05 mmHg PV Mean Grad 2.9 mmHg RVOT VTI 0.194 m PV VTI 0.229 m RVOT Vmax 0.96 m/s
--- NOTE | 2021-06-11 06:27 | ANES.PREOP_ITS ---
General Info Date of Service Date Performed: 06/11/21 Height: 6 ft 1 in Weight: 112 kg Body Mass Index (BMI): 32.5 Surgical Procedure: Operation Date: 06/11/21 17:55 Proposed Procedure Side Surgeon p Knee Arthroscopy w/Washout Left Alex Rice MD s I&D of LT Leg Alex Rice MD Meds Allergies and Home Medications Allergies Allergy/AdvReac Type Severity Reaction Status Date / Time lisinopril Allergy Severe Anaphylaxis Unverified 06/10/21 10:26 varenicline tartrate Allergy Unknown Unverified 06/10/21 10:26 [From Chantix] hornet Allergy facial/throat Uncoded 06/10/21 10:26 swelling Home Medication Medication Instructions Recorded Nitrostat 0.4 mg sublingual tablet 0.4 mg SUBLINGUAL PRN PRN NS 03/01/13 (nitroglycerin) Viagra 50 mg tablet (sildenafil) 50 mg PO DAILY PRN tab-cap NS 03/01/13 aspirin 325 mg tablet 325 mg PO DAILY tab-cap NS 03/01/13 epinephrine 0.3 mg/0.3 mL 0.3 mg IM PRN PRN NS 03/01/13 injection, auto-injector furosemide 20 mg tablet (Lasix) 20 mg PO QAM 09/07/18 insulin glargine 100 unit/mL (3 22 unit SUBCUT QPM 04/27/20 mL) subcutaneous pen (Lantus Solostar U-100 Insulin) montelukast 10 mg tablet 10 mg PO DAILY #30 tab 05/17/21 rosuvastatin 10 mg tablet 10 mg PO DAILY #30 tab 05/17/21 celecoxib 100 mg capsule 100 mg PO BID PRN 06/10/21 cetirizine 10 mg tablet 10 mg PO DAILY PRN 06/10/21 clopidogrel 75 mg tablet 75 mg PO DAILY 06/10/21 insulin aspart U-100 100 unit/mL 15 - 17 unit SUBCUT DIRECTED 06/10/21 (3 mL) subcutaneous pen (Novolog Flexpen U-100 Insulin aspart) levothyroxine 25 mcg tablet 25 mcg PO DAILY 06/10/21 magnesium oxide 400 mg PO BID 06/10/21 metoprolol tartrate 75 mg tablet 75 mg PO BID 06/10/21 Current Visit Medications: Current Medications Generic Name Dose Route Start Last Admin Trade Name Freq PRN Reason Stop Dose Admin Acetaminophen 0 mg 06/10/21 13:11 Acetaminophen 325 Mg Tab PO Q4H PRN PRN Cetirizine HCl 10 mg 06/11/21 08:30 Cetirizine 10 Mg Tab PO DAILY [facility] Dextrose 0 gm 06/10/21 16:48 Glucose 40% Oral Solution 15 Gm/37.5 Gm Tube PO DIRECTED PRN Dextrose/Water 0 gm 06/10/21 16:48 Dextrose 50%-Water 25 Gm/50 Ml Syr IVP DIRECTED PRN Dimethicone/Zinc Oxide 0 gm 06/10/21 13:11 Medardo Protect Cream 142 Gm Tube TP PRN PRN Furosemide 20 mg 06/11/21 08:30 Furosemide 20 Mg Tab PO QAM [facility] Vancomycin/PEG/NADA/Lysine/Water 1 gm in 200 mls @ 200 mls/hr 06/11/21 08:00 Vancocin Injection IV Q18H [facility] Protocol Piperacillin Sod/Tazobactam 50 mls @ 100 mls/hr 06/10/21 18:00 06/10/21 23:59 Sod 3.375 gm/ Sodium Chloride IVPB 100 mls/hr Q6H [facility]I Administration Protocol Insulin Aspart 15 units 06/10/21 17:00 06/10/21 17:35 Insulin Aspart 300 Units/3 Ml Pen SC 15 units 0800,1200,1700 SAI Administration Insulin Glargine 22 units 06/10/21 22:00 06/10/21 22:09 Insulin Glargine 300 Units/3 Ml Pen SC 22 units [facility] Administration Metoprolol Tartrate 75 mg 06/10/21 20:00 06/10/21 19:32 Metoprolol 25 Mg Tab PO 75 mg BID SAI Administration Montelukast Sodium 10 mg 06/11/21 08:30 Montelukast 10 Mg Tab PO DAILY [facility] Oxycodone HCl 5 mg 06/10/21 13:46 06/10/21 19:32 Oxycodone 5 Mg Tab PO 5 mg Q6H PRN PRN Administration Pantoprazole Sodium 40 mg 06/11/21 08:30 Pantoprazole 40 Mg Vial IVP DAILY [facility] Polyethylene Glycol 17 gm 06/10/21 15:00 06/10/21 17:35 Polyethylene Glycol 3350 17 Gm Packet PO 17 gm DAILY [facility] Administration Rosuvastatin Calcium 10 mg 06/11/21 08:30 Rosuvastatin 10 Mg Tab PO DAILY [facility] Active Problems Active Problems: Problem Status Onset Code Cutaneous abscess of left knee L02.416 Septic arthritis of knee, left M00.9 DVT prophylaxis Z29.9 CKD (chronic kidney disease) N18.9 Acute anemia D64.9 Septic arthritis M00.9 Acute GI bleeding K92.2 Anaphylactic reaction due to adverse effect of correct drug or medicament properly administered, initial encounter T88.6XXA CAD (coronary artery disease) I25.10 Acute kidney injury superimposed on CKD N17.9, N18.9 Closed left clavicular fracture 09/07/18 S42.002A Medical History Medical History Diabetes Heart attack Hypercholesterolemia Hypertension Lip swelling Tobacco Smoking/Tobacco Use Status: Former Tobacco Use Alcohol Alcohol Intake: current Alcohol intake frequency: 3 or more drinks per day Alcohol type: beer Substance Use Substance use type: does not use Vital Signs and Lab Results Vital Signs Most Recent Vital Signs in EMR: Most Recent Vital Signs Temp Pulse Resp BP Pulse Ox 37.1 C 91 H 21 119/58 L 95 06/11/21 00:00 06/11/21 00:01 06/11/21 00:01 06/11/21 00:01 06/11/21 00:01 Point of Care Results Point of Care Results: Finger Stick Blood Glucose 313 06/10/21 17:35 Lab Results Result Diagrams: 06/11/21 05:55 06/11/21 05:55 Blood Type / Crossmatch: Patient ABO/Rh A Positive 06/10/21 Antibody Screen NEGATIVE 06/10/21 Complete Blood Count: White Blood Count 21.01 10^3/uL (4.4-10.8) H 06/11/21 05:55 06/11/21 Red Blood Count 2.58 10^6/uL (4.36-5.78) L 06/11/21 05:55 06/11/21 Hemoglobin 7.2 g/dL (13.5-17.5) L 06/11/21 05:55 06/11/21 Hematocrit 23.4 % (40.0-50.0) L 06/11/21 05:55 06/11/21 Platelet Count 488 10^3/uL (130-400) H 06/11/21 05:55 06/11/21 Venous Blood Lactate 1.7 mmol/L (0.6-1.4) H 06/10/21 17:15 06/10/21 Complete Metabolic Panel: Sodium Level 133 mmol/L (136-145) L 06/11/21 05:55 06/11/21 Potassium Level 4.2 mmol/L (3.5-5.1) 06/11/21 05:55 06/11/21 Chloride Level 99 mmol/L (98-107) 06/11/21 05:55 06/11/21 Carbon Dioxide Level 25.2 mmol/L (21.0-32.0) 06/11/21 05:55 06/11/21 Blood Urea Nitrogen 37 mg/dL (7-18) H 06/11/21 05:55 06/11/21 Creatinine 2.2 mg/dL (0.70-1.30) H 06/11/21 05:55 06/11/21 Estimated GFR/1.73 m2 29.91 (mL/min/1.73m2) 06/11/21 05:55 06/11/21 Magnesium Level 2.4 mg/dL (1.8-2.4) 06/03/21 09:30 06/03/21 Calcium Level 8.2 mg/dL (8.5-10.1) L 06/11/21 05:55 06/11/21 Albumin 1.4 g/dL (3.4-5.0) L 06/11/21 05:55 06/11/21 Glucose Level 311 mg/dL (74-106) H 06/11/21 05:55 06/11/21 Hemoglobin A1c 9.6 % (<5.7) H 06/10/21 10:25 06/10/21 C-Reactive Protein 19.35 mg/dL (0.0-0.3) H 06/11/21 05:55 06/11/21 Liver Function Panel: Alanine Aminotransferase (ALT/SGPT) 59 U/L (16-63) 06/11/21 05:55 06/11/21 Aspartate Amino Transf (AST/SGOT) 29 U/L (15-37) 06/11/21 05:55 06/11/21 Coagulation Panel: No Data to Display Cardiac Panel: No Data to Display Arterial Blood Gas: No Data to Display Venous Blood Gas: Venous Blood pH 7.45 (7.31-7.41) H 06/10/21 10:25 06/10/21 Venous Blood Partial Pressure O2 26 mmHg 06/10/21 10:25 06/10/21 Venous Blood Partial Pressure CO2 38 mmHg (41-51) L 06/10/21 10:06/10/21 Venous Blood Oxygen Saturation 45 % 06/10/21 10:25 06/10/21 Venous Blood HCO3 27 mmol/L (23-28) 06/10/21 10:25 06/10/21 Venous Blood Base Excess 3 mmol/L (-2-3) 06/10/21 10:06/10/21 Venous Blood Total Carbon Dioxide 25 mmol/L (24-29) 06/10/21 10:06/10/21 Pancreas Panel: 2 No Data to Display Thyroid Panel: No Data to Display Infectious Disease: Coronavirus (COVID-19)(PCR) Negative (Negative) 06/10/21 13:28 06/10/21 Coronavirus 2019 Source Nasal/Nares 06/10/21 13:28 06/10/21 Blood Cultures: No Data to Display Toxicology Panel: No Data to Display Imaging and Studies Imaging and Studies Study information below may be from another EMR and interpreted by another provider. Please see original notes in EMR for more complete details. Echocardiogram Summary: 2019: LVEF 66%, grade 1 diastolic dysfunction, moderate AV sclerosis without stenosis, mildly dilated ascending thoracic aiota 3.8 cm. Anesthesia Assessment and Plan Anesthesia History Personal History: No History of Anesthesia Complications Family History: No Family History of Anesthesia Complications Exercise Tolerance Exercise Tolerance: Unknown Cardiac & Pulmonary Exam Cardiac Exam: Normal S1/S2 Heart Sounds Pulmonary Exam: Clear Bilateral Breath Sounds Implantable Cardiac Device Does patient have a Pacemaker or an ICD?: No Airway Exam Known Difficult Airway: No Mallampati Class: 4 Mouth Opening: Normal (> 3cm) Thyromental Distance: Less than 3 cm Neck Range of Motion: Full ROM Neck Circumference: Normal Teeth Condition: Generalized Poor Dentition Airway Comments: 3 teeth, denies loose. ASA Classification ASA Score: ASA 3 Emergency Case?: Yes NPO Status NPO Status: NPO Clears >2 hours, Solids >8 hours Anesthesia Plan Resuscitation Status: Full Code Anesthesia Technique: General Anesthesia Airway Planned: Endotracheal Tube Monitors Used: Standard Monitors and Arterial Line (+/- art line. ) Preoperative Comments:: 70 yo male who presented to the ED on 06/10/21 with increasing knee pain and found to have likely septic arthritis of the knee. He is currently admitted, receiving pip/reymundo. To OR for knee arthroscopy/washout. Sig PMHx: CKDIV, CAD (metoprolol, stents 2008, CABG 2018 for LAD/LCX/RCA dz), DMII (poorly controlled), HTN, former smoker, daily EtOH, Hypothyroid (on replacement). Denies nitro use, unable to accurately describe his functional capacity. Previous Anes: Masked with OPA, VL grade 1. Plan: GAETT, 2nd IV/midline, +/- arterial line.
[2021-06-11 06:28] LABS: Abs Immature Grans 0.18 10^3/uL (0.0-0.06); Absolute Lymphocyte Count 0.69 10^3/uL (1.2-3.4); Absolute Monocyte Count 1.32 10^3/uL (0.1-0.8); Basophils % 0.4; HCT 23.4 % (40.0-50.0); HGB 7.2 g/dL (13.5-17.5); Immature Grans % 0.9; Lymphocytes % 3.3; MCH 27.9 pg (27.0-33.0); MCHC 30.8 % (32.0-36.0); MCV 90.7 fL (80-95); MPV 8.7 fL (8.0-11.0); Monocytes % 6.3; Neutrophils % 88.1; Nucleated RBC 0 %; Platelet Count 488 10^3/uL (130-400); RBC 2.58 10^6/uL (4.36-5.78); RDW 13.9 % (11.8-14.1); RDW-SD 46.1 fL; WBC 21.01 10^3/uL (4.4-10.8)
[2021-06-11 06:43] LABS: Absolute Basophil Count 0.08 10^3/uL (0.0-0.2); Absolute Eosinophil Count 0.21 10^3/uL (0.0-0.7); Absolute Neutrophil Count 18.51 10^3/uL (1.2-6.7)
[2021-06-11 06:54] LABS: ALT 59 U/L (16-63); AST 29 U/L (15-37); Albumin 1.4 g/dL (3.4-5.0); Alkaline Phosphatase 94 U/L (46-116); Anion Gap 8.8 mmol/L (3-11); BUN 37 mg/dL (7-18); Bilirubin, Total 0.4 mg/dL (0.2-1.0); C-Reactive Protein 19.35 mg/dL (0.0-0.3); CO2 25.2 mmol/L (21.0-32.0); CREATININE 2.2 mg/dL (0.70-1.30); Calcium 8.2 mg/dL (8.5-10.1); Chloride 99 mmol/L (98-107); Estimated GFR 29.91 (mL/min/1.73m2); Glucose 311 mg/dL (74-106); Potassium 4.2 mmol/L (3.5-5.1); Sodium 133 mmol/L (136-145); Total Protein 6.6 g/dL (6.4-8.2)
[2021-06-11] MEDS: PIPERACILLIN/TAZO 3.375 GM in Normal Saline 50 ML IVPB ×3 (07:08→17:51)
[2021-06-11] MEDS: Normal Saline Flush 10 ML SYR (07:43)
[2021-06-11] MEDS: Metoprolol 25 MG TAB 75 MG PO (07:44)
[2021-06-11] MEDS: Furosemide 20 MG TAB PO (07:45)
[2021-06-11] MEDS: Montelukast 10 MG TAB PO (07:46)
[2021-06-11] MEDS: Cetirizine 10 MG TAB PO (07:46)
[2021-06-11] MEDS: Rosuvastatin 10 MG TAB PO (07:46)
[2021-06-11] MEDS: oxyCODONE 5 MG TAB PO ×2 (07:47→18:18)
[2021-06-11] MEDS: Pantoprazole 40 MG VIAL IVP ×2 (07:58→20:30)
[2021-06-11] MEDS: Insulin Aspart 300 UNITS/3 ML PEN 15 UNITS SC ×3 (08:01→18:20)
[2021-06-11] MEDS: VANCOMYCIN/WATER (PEG) 1 GM/200 ML BAG IV (08:37)
[2021-06-11] MEDS: Polyethylene Glycol 3350 17 GM PACKET PO (09:12)
--- NOTE | 2021-06-11 10:25 | INITIAL_ITS ---
- If Service Date Differs Date of service: 06/11/21 Time of Service: 10:25 Care Management Initial Assess REASON FOR HOSPITALIZATION:: Septic arthritis and anemia PAST MEDICAL HISTORY/PAST SURGICAL HISTORY:: All Active Problems (Updated 06/10/21 @ 16:11 by Nav Albarado MD). DVT prophylaxis (Acute). CKD (chronic kidney disease) (Chronic). Acute anemia (Acute). Septic arthritis (Acute). Acute GI bleeding (Acute). Anaphylactic reaction due to adverse effect of correct drug or medicament properly administered, initial encounter (Acute). CAD (coronary artery disease) (Chronic). Acute kidney injury superimposed on CKD (Acute). Closed left clavicular fracture (Acute 09/07/18). Medical History . Diabetes. Heart attack. Hypercholesterolemia. Hypertension. Lip swelling PREVIOUS FUNCTIONAL STATUS/SOCIAL/FAMILY SUPPORTS:: Bear lives in a single family home in [place], [place] with his obinna Pichardo. He has 3 children from a previous marraige all of whom are close by and offer support. 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 He still has a large woodworking shop which he uses. Bear is independent at baseline and receives no community services. CURRENT FUNCTIONAL STATUS:: CM was unable to meet with Bear in person today as he was in surgery. Information obtained from prior admission and prior interactions with patient last admission. ADVANCE DIRECTIVES:: none on file. Given copy of forms last admission Has patient been provided with info about the portal/API?: Yes Did the patient sign up for the portal?: No CODE STATUS:: Full Code INSURANCE COVERAGE / FINANCIAL ISSUES:: Medicare. Medicaid CURRENT HOME/COMMUNITY SERVICES/EQUIPMENT:: none PRIMARY CARE PHYSICIAN:: Antonella Lucas POTENTIAL DISCHARGE NEEDS:: follow up with community providers including orthopedics and PCP ands discharge plan of care PATIENT/FAMILY EDUCATION NEEDS:: Review of discharge instructions, limitations, follow up plan, activity, medications and discuss Ask Me Three. TRANSPORTATION:: vias private vehicle with fiancee PLAN:: Bear will chunley be discharged home, possibly with new home health services. He will follow up with his PCP and plan of care and transport with family. CM will continue to provide support to Bear and his discharge needs.
[2021-06-11] MEDS: Acetaminophen 325 MG TAB PO (12:03)
--- NOTE | 2021-06-11 14:19 | W.INDIABCONS ---
Date of service: 06/11/21 Time of Service: 14:19 Diabetes Inpatient Consult Reason for Visit: dm DESCRIPTION/ASSESSMENT: 70 year old male admitted to ICU with septic arthritis with GI bleed. PMH: DM2, HTN, CKD, obesity and CAD with poorly controlled blood sugars. A1C (06/10/21): 9.6% indicates poorly controlled diabetes in last 90 days with blood sugars averaging 226mg/dl. Home Dm meds: aspart 15-17 units TID, 22 units lantus HS. Currently NPO. Previously following Diabetic Diet witih excellent intake. Attempted to visit today but asleep. INTERVENTION: none PLAN: Recommend considering adding a SGLT2 i such as Jardiance at discharge to help regulate blood sugars and maintain renal function. Will follow up and offer outpatient services for diabetes management. Time Spent in Nutritional Counseling and Treatment: 0
--- NOTE | 2021-06-11 17:13 | W.PM.PROGNOT ---
Date of Service Date of service: 06/11/21 Time of Service: 17:14 Assessment and Plan Assessment and plan (1) Septic arthritis: Status: Acute Assessment and plan: S/P: WBC count today was marginally improved. Blood cxs and fluid from knee aspirate growing staph aureus; preliminary. On Zosyn and Vanc. Narrow antibiotic when ID complete; MSSA vs MRSA. (2) Acute GI bleeding: Status: Acute Assessment and plan: Drop in hgb from 13.6 on 05/14/21 to 7.7 > 7.2 He recently finished a prednisone taper and has been using Aleve BID. Concerning for an upper GI bleed. Melanotic stools that were heme positive in ED. Will contact general surgery if Hgb continues to decline for possible endoscopy. (3) CAD (coronary artery disease): Status: Chronic Assessment and plan: No angina. Does have some CABRERA but likely related to his anemia. Hold ASA and Plavix d/t acute anemia; likely GI bleed. Cont BB and statin. (4) Diabetes: Assessment and plan: Cont basal/bolus insulin and diabetic diet. Monitor. (5) Hypertension: Assessment and plan: On metoprolol. BP in the 100's to 110's currently in background of acute anemia. Monitor. (6) Hypercholesterolemia: Assessment and plan: Cont Rosuvastatin. (7) CKD (chronic kidney disease): Status: Chronic Assessment and plan: Creatinine 2.2 > 2.2; above baseline of around 1.5, but improved from last admission when it was as high as 3.8. Avoid nephroxins and hypotension. Monitor. (8) DVT prophylaxis: Status: Acute Assessment and plan: Avoid chemical prophylaxis d/t acute anemia. SCDs; however, the LLE is painful from the knee down to the ankle so may not tolerate. Subjective Subjective Patient reports: afebrile; denies nausea or vomiting Interval history since last seen: s/p washout of L knee and abscess distal to L knee. Conversant. + appetite. Exam Const General: cooperative Nutritional Appearance: overweight Orientation: alert and oriented x3 Eyes General: appearance normal, both eyes and all related structures Sclera: sclerae normal Resp Effort & Inspection: normal respiratory effort Auscultation: clear to auscultation bilaterally Cardio Rate: regular rate Rhythm: regular rhythm Heart Sounds: S1 normal and S2 normal GI Palpation: soft and nontender Auscultation: normal bowel sounds Skin General skin exam: no rashes or lesions noted Extrem General: no pedal edema and no calf tenderness Upper/lower leg/hip images: 1. Post op bandages in place with CHAO wrap. Psych Appearance: grossly normal Mental Status: mental status grossly normal Mood: congruent mood Affect: normal affect Objective Last Vital Signs Temp 36.5 C 06/11/21 08:00 Pulse 87 06/11/21 12:30 Resp 14 06/11/21 12:30 BP 104/52 L 06/11/21 12:30 Pulse Ox 95 06/11/21 12:30 Laboratory Results - last 24 hr 06/10/21 06/10/21 06/10/21 10:25 10:25 11:35 WBC RBC Hgb Hct MCV MCH MCHC RDW Plt Count MPV Immature Gran % Neutrophils % Lymphocytes % Monocytes % Eosinophils % Basophils % Nucleated RBC % Absolute Neutrophils Absolute Lymphocytes Absolute Monocytes Absolute Eosinophils Absolute Basophils VBG Lactate Sodium Potassium Chloride Carbon Dioxide Anion Gap BUN Creatinine Estimated GFR/1.73 m2 Glucose Hemoglobin A1c 9.6 H Calcium Total Bilirubin AST ALT Alkaline Phosphatase C-Reactive Protein Total Protein Albumin Path Cons Comment SEE COMMENT Add-On Test Request DONE 06/10/21 06/10/21 06/11/21 17:15 17:15 05:35 WBC RBC Hgb 8.8 L Hct 27.8 L MCV MCH MCHC RDW Plt Count MPV Immature Gran % Neutrophils % Lymphocytes % Monocytes % Eosinophils % Basophils % Nucleated RBC % Absolute Neutrophils Absolute Lymphocytes Absolute Monocytes Absolute Eosinophils Absolute Basophils VBG Lactate 1.7 H Sodium Potassium Chloride Carbon Dioxide Anion Gap BUN Creatinine Estimated GFR/1.73 m2 Glucose Hemoglobin A1c Cancelled Calcium Total Bilirubin AST ALT Alkaline Phosphatase C-Reactive Protein Total Protein Albumin Path Cons Comment Add-On Test Request 06/11/21 06/11/21 05:55 05:55 WBC 21.01 H RBC 2.58 L Hgb 7.2 L Hct 23.4 L MCV 90.7 MCH 27.9 MCHC 30.8 L RDW 13.9 Plt Count 488 H MPV 8.7 Immature Gran % 0.9 Neutrophils % 88.1 Lymphocytes % 3.3 Monocytes % 6.3 Eosinophils % 1.0 Basophils % 0.4 Nucleated RBC % 0 Absolute Neutrophils 18.51 H Absolute Lymphocytes 0.69 L Absolute Monocytes 1.32 H Absolute Eosinophils 0.21 Absolute Basophils 0.08 VBG Lactate Sodium 133 L Potassium 4.2 Chloride 99 Carbon Dioxide 25.2 Anion Gap 8.8 BUN 37 H Creatinine 2.2 H Estimated GFR/1.73 m2 29.91 Glucose 311 H Hemoglobin A1c Calcium 8.2 L Total Bilirubin 0.4 AST 29 ALT 59 Alkaline Phosphatase 94 C-Reactive Protein 19.35 H Total Protein 6.6 Albumin 1.4 L Path Cons Comment Add-On Test Request
--- NOTE | 2021-06-11 17:33 | W.ANESPOSTOP ---
Postoperative Evaluation Date, Time and Location Date Performed: 06/11/21 Time Performed: 17:10 Patient Location: Intensive Care Unit Vital Signs Most Recent Imported Vital Signs: Most Recent Vital Signs Temp Pulse Resp BP Pulse Ox 36.5 C 87 14 104/52 L 95 06/11/21 08:00 06/11/21 12:30 06/11/21 12:30 06/11/21 12:30 06/11/21 12:30 Pain Score Most Recent Pain Score: Most Recent Pain Score Pain Level 2 06/11/21 12:30 Assessment Mental Status: Awake (Alert & Oriented to Patient Baseline) Airway and Respiratory Function: Patent airway with normal (patient baseline) respiratory exam Cardiovascular Function: Hemodynamically Stable Hydration Status: Adequately Hydrated Nausea & Vomiting: No Nausea or Vomiting Pain: Pain is tolerable per patient Peripheral Nerve Block: Patient did not receive a nerve block Postoperative Comments:: to ICU phenyl gtt turned to 50 mcg/min with good MAP.
[2021-06-11] MEDS: Normal Saline Flush 10 ML SYR IVP ×4 (17:35→22:31)
--- NOTE | 2021-06-11 17:45 | W.PM.OP ---
Date of service: 06/11/21 Time of Service: 16:20 Operative Note Operative Note DATE OF PROCEDURE: 06/11/21 PRE-OP DIAGNOSIS: Left Knee Septic Arthritis, Left Leg Abscess POST-OP DIAGNOSIS: same PROCEDURE: Left Knee Arthroscopic Debridement and Lavage for Infection, Left Leg Incision and Drainage of Abscess SURGEON: Alex Rice DRYING FRAME OPERATOR: Uma Dailey ANESTHESIA TYPE: General LMA/ETT Refer to Anesthesia Record ESTIMATED BLOOD LOSS: 10 PATHOLOGY: other (Fluid cultures from the left leg abscess were sent to microbiology) COMPLICATIONS: None Patient was transported to: PACU Patient's condition: stable Indications: Bear is a 70-year-old who was admitted last night for concerns of sepsis with an infected left knee with an abscess about the left leg. I had seen him yesterday and discussed treatment options and recommended arthroscopic debridement and lavage of the left knee along with a separate incision and drainage with debridement of the left leg abscess. I reviewed the treatment options with him and he agrees to proceed. I discussed the risk to include persistent infection, need for repeat procedures, worsening arthritis, continued pain, stiffness, blood clot, damage to muscle and tendons, damage to nerves and vessels. Despite these risks, he elected to proceed. Findings: There is a large abscess of the lateral last left leg which had copious amounts chronic appearing infection, green and brown tissue with significant debris. This was evacuated and manually inspected with a larger incision and aggressive debridement was also performed of any unhealthy appearing tissue. The fascia was intact and appeared to be of normal appearance. The left knee also had significant mount of purulence. An arthroscopic debridement with lavage was performed. Procedure Description: Bear was greeted in the preoperative holding area where the correct side was identified and marked. The consent was reviewed with the patient earlier that day and signed. Bear was taken back to the operating room. The patient was placed into the supine position on the operating room table. All bony prominences were well padded. Prophylactic antibiotics were previously administered on the floor. The left leg was then prepped with Chloraprep and draped in a standard fashion with extremity drape. A timeout to confirm correct identity, side and site, procedure, allergies, anesthesia, and medical concerns was performed. Attention was first turned to the lateral left leg abscess. A 3 cm incision was made overlying the prominence of this abscess. The skin was incised sharply and significant amount of purulent material erupted from the wound. This was green and brown-colored with debris chunks. Samples of this fluid was sent to the lab for microbiology analysis. The incision was then incised slightly more distally. This fluid was evacuated. There was copious amounts of purulent material. Finger dissection was performed within the abscess to break up any adhesions. There was a significant space created by this abscess which was suprafascial. The fascia was also inspected did not show any significant signs of necrosis. An aggressive debridement is performed of any necrotic appearing tissue. 2 L of normal saline were rinsed through this wound to start. It was once again inspected and there did not seem any tracking unidentified proximally or distally. I then used another liter of normal saline to finish rinsing out the wound. Attention was then turned to the knee arthroscopy portion of the case. The leg was placed into a pneumatic leg albarran, SPIDER2. A standard lateral portal was made at the lateral border of the patella tendon in line with the inferior pole of the patella, soft spot. The skin and deep tissue was incised sharply and the blunt trochar was inserted atraumatically. There was an immediate tejeda of purulent material from within the knee. A superolateral portal was then established which became the outflow portal. 3 L normal saline were rinsed through the knee to start for better visualization. I then created a medial portal which I used to debride the knee. A systematic synovectomy was performed starting superiorly and working medially and laterally as well as anteriorly to remove any inflammatory type tissue. The medial compartment showed complete loss of cartilage over the entirety of the femoral tibial surfaces with a macerated medial meniscus. Anything loose and inflamed or necrotic was removed. In general, there was some inflammatory change but it seemed to be quite superficial and not as chronic as the left leg abscess. A total of 6 L of normal saline were rinsed through the knee. The arthroscopic wounds were closed with 4-0 Nylon. The lateral left leg wound was packed with iodoform dressing and then closed with nylon around the packing material exiting the wound. The wounds were dressed with Xeroform, 4x4 gauze, ABD pad, Kerlix and an CHAO wrap. The patient tolerated the procedure well and was returned to the Same Day Surgery area in a stable condition suffering no known complication. The initial dressing may stay for 48 hours. After which, it should be inspected daily with interval removal of 1 to 2 inches of packing material per day. I will continue to follow his course and there very well may need to be a secondary debridement depending on how he does.
[2021-06-11 17:49] LABS: HCT 25.2 % (40.0-50.0); HGB 7.7 g/dL (13.5-17.5)
[2021-06-11] MEDS: fentaNYL 100 MCG/2 ML VIAL 50 MCG IVP ×2 (17:51→22:31)
--- NOTE | 2021-06-11 19:11 | NUR.NOTE ---
Nursing Note: 1655 pt returned to ICU 222 from OR. Pt on 10L mask. Arrived with phenylephrine running at 50mcg/min via #20 RAC. Fady Nichole CRNA instructs that pt no longer needs phenylephrine. This RN will wean pt off of the phenylephrine as tolerated. Hospitalist notified and in agreement. 1700 phenylephrine @35mcg/min 1707 Weaned O2 to 4LNC, pt tolerated well. 1710 phenylephrine @25mcg/min 1738 Weaned O2 to 2LNC, pt tolerated well. 1750 phenylephrine @ 15mcg/min 1820 phenylephrine DC'd
[2021-06-11] MEDS: Lactated Ringers 500 ML IV (20:30)
[2021-06-11] MEDS: Insulin Glargine 300 UNITS/3 ML PEN 22 UNITS SC (22:32)
[2021-06-12] VITALS (37 sets, daily range): BP systolic 90–135; BP diastolic 54–69; PULSE 74–94; RESP 16–30; TEMP 36–38.1; O2SAT 91–99
[2021-06-12] MEDS: oxyCODONE 5 MG TAB PO ×3 (00:43→16:19)
[2021-06-12] MEDS: PIPERACILLIN/TAZO 3.375 GM in Normal Saline 50 ML IVPB ×4 (00:44→18:13)
[2021-06-12] MEDS: VANCOMYCIN/WATER (PEG) 1 GM/200 ML BAG IV ×2 (02:19→20:31)
[2021-06-12 06:25] LABS: Absolute Eosinophil Count 0.05 10^3/uL (0.0-0.7); Basophils % 0.2; Eosinophils % 0.2; HCT 23.5 % (40.0-50.0); HGB 7.1 g/dL (13.5-17.5); Immature Grans % 1.2; Lymphocytes % 3.9; MCH 27.6 pg (27.0-33.0); MCHC 30.2 % (32.0-36.0); MCV 91.4 fL (80-95); MPV 8.7 fL (8.0-11.0); Monocytes % 5.7; Neutrophils % 88.8; Nucleated RBC 0 %; Platelet Count 491 10^3/uL (130-400); RBC 2.57 10^6/uL (4.36-5.78); RDW 13.7 % (11.8-14.1); RDW-SD 46.5 fL
[2021-06-12 06:28] LABS: Absolute Basophil Count 0.05 10^3/uL (0.0-0.2)
[2021-06-12 06:29] LABS: Absolute Lymphocyte Count 0.99 10^3/uL (1.2-3.4); Absolute Monocyte Count 1.45 10^3/uL (0.1-0.8); Absolute Neutrophil Count 22.62 10^3/uL (1.2-6.7)
[2021-06-12 06:48] LABS: ALT 43 U/L (16-63); AST 25 U/L (15-37); Albumin 1.3 g/dL (3.4-5.0); Alkaline Phosphatase 91 U/L (46-116); Anion Gap 9.1 mmol/L (3-11); BUN 36 mg/dL (7-18); Bilirubin, Total 0.4 mg/dL (0.2-1.0); C-Reactive Protein 19.41 mg/dL (0.0-0.3); CO2 23.9 mmol/L (21.0-32.0); CREATININE 2.2 mg/dL (0.70-1.30); Calcium 8.2 mg/dL (8.5-10.1); Chloride 102 mmol/L (98-107); Estimated GFR 29.91 (mL/min/1.73m2); Glucose 296 mg/dL (74-106); Potassium 4.5 mmol/L (3.5-5.1); Sodium 135 mmol/L (136-145); Total Protein 6.5 g/dL (6.4-8.2)
[2021-06-12 06:51] LABS: Diff Comment Agrees w/ Instrument; Hypochromasia 2+; WBC 25.47 10^3/uL (4.4-10.8)
[2021-06-12] MEDS: Normal Saline Flush 10 ML SYR IVP ×5 (09:19→19:37)
[2021-06-12] MEDS: Heparin 5,000 UNITS/ML VIAL 5000 UNITS SC ×2 (09:20→16:17)
[2021-06-12] MEDS: Acetaminophen 325 MG TAB PO ×3 (09:21→21:53)
[2021-06-12] MEDS: Montelukast 10 MG TAB PO (09:22)
[2021-06-12] MEDS: Metoprolol 25 MG TAB 75 MG PO ×2 (09:22→19:37)
[2021-06-12] MEDS: Rosuvastatin 10 MG TAB PO (09:22)
[2021-06-12] MEDS: Senna TAB 1 TAB PO (09:22)
[2021-06-12] MEDS: Cetirizine 10 MG TAB PO (09:23)
[2021-06-12] MEDS: Insulin Glargine 300 UNITS/3 ML PEN 15 UNITS SC (09:23)
[2021-06-12] MEDS: Furosemide 20 MG TAB PO (09:23)
[2021-06-12] MEDS: Insulin Aspart 300 UNITS/3 ML PEN 20 UNITS SC ×3 (09:24→17:13)
--- NOTE | 2021-06-12 10:40 | PGE_ITS ---
Date of Service Date of service: 06/11/21 Time of Service: 16:53 Assessment and Plan Assessment and plan (1) Septic arthritis: Status: Acute Assessment and plan: S/P:Left Knee Arthroscopic Debridement and Lavage for Infection, Left Leg Incision and Drainage of Abscess WBC count today was marginally improved. Blood cxs and fluid from knee aspirate growing staph aureus; preliminary. On Zosyn and Vanc. Narrow antibiotic when ID complete; MSSA vs MRSA. (2) Acute GI bleeding: Status: Acute Assessment and plan: Drop in hgb from 13.6 on 05/14/21 to 7.7 > 7.2 He recently finished a prednisone taper and has been using Aleve BID. Concerning for an upper GI bleed. Melanotic stools that were heme positive in ED. Will contact general surgery if Hgb continues to decline for possible endoscopy. (3) CAD (coronary artery disease): Status: Chronic Assessment and plan: No angina. Does have some CABRERA but likely related to his anemia. Hold ASA and Plavix d/t acute anemia; likely GI bleed. Cont BB and statin. (4) Diabetes: Assessment and plan: Cont basal/bolus insulin and diabetic diet. Monitor. (5) Hypertension: Assessment and plan: On metoprolol. BP in the 100's to 110's currently in background of acute anemia. Monitor. (6) Hypercholesterolemia: Assessment and plan: Cont Rosuvastatin. (7) CKD (chronic kidney disease): Status: Chronic Assessment and plan: Creatinine 2.2 > 2.2; above baseline of around 1.5, but improved from last admi ssion when it was as high as 3.8. Avoid nephroxins and hypotension. Monitor. (8) DVT prophylaxis: Status: Acute Assessment and plan: Avoid chemical prophylaxis d/t acute anemia. SCDs; however, the LLE is painful from the knee down to the ankle so may not tolerate. Subjective Subjective Patient reports: tolerating a regular diet and afebrile; denies nausea or vomiting Interval history since last seen: s/p washout of L knee and abscess distal to L knee. Conversant. + appetite. Exam Narrative Exam Narrative: Lying in bed. Pleasant, conversant, NAD Const General: cooperative Nutritional Appearance: overweight Orientation: alert and oriented x3 Eyes General: appearance normal, both eyes and all related structures Sclera: sclerae normal Resp Effort & Inspection: normal respiratory effort Auscultation: clear to auscultation bilaterally Cardio Rate: regular rate Rhythm: regular rhythm Heart Sounds: S1 normal and S2 normal GI Palpation: soft and nontender Auscultation: normal bowel sounds Skin Rashes: no rashes Extrem General: no pedal edema and no calf tenderness Upper/lower leg/hip images: 1. Bandage with CHAO wrap in place. Psych Appearance: grossly normal Mental Status: mental status grossly normal Mood: congruent mood Affect: normal affect Objective Last Vital Signs Temp 36.5 C 06/12/21 07:25 Pulse 88 06/12/21 07:31 Resp 19 06/12/21 10:00 BP 113/61 06/12/21 07:31 Pulse Ox 96 06/12/21 10:00 Laboratory Results - last 24 hr 06/11/21 06/12/21 06/12/21 17:35 06:04 06:04 WBC 25.47 H* RBC 2.57 L Hgb 7.7 L 7.1 L Hct 25.2 L 23.5 L MCV 91.4 MCH 27.6 MCHC 30.2 L RDW 13.7 Plt Count 491 H MPV 8.7 Immature Gran % 1.2 Neutrophils % 88.8 Lymphocytes % 3.9 Monocytes % 5.7 Eosinophils % 0.2 Basophils % 0.2 Nucleated RBC % 0 Absolute Neutrophils 22.62 H Absolute Lymphocytes 0.99 L Absolute Monocytes 1.45 H Absolute Eosinophils 0.05 Absolute Basophils 0.05 RBC Morphology See Below Hypochromasia 2+ Sodium 135 L Potassium 4.5 Chloride 102 Carbon Dioxide 23.9 Anion Gap 9.1 BUN 36 H Creatinine 2.2 H Estimated GFR/1.73 m2 29.91 Glucose 296 H Calcium 8.2 L Total Bilirubin 0.4 AST 25 ALT 43 Alkaline Phosphatase 91 C-Reactive Protein 19.41 H Total Protein 6.5 Albumin 1.3 L
--- NOTE | 2021-06-12 11:04 | PT.INIE ---
Date of service: 06/12/21 Time of Service: 11:04 PT Notes Visit Reasons: knee joint infection Physical Therapy Inpatient Initial Evaluation Date: 06/12/2021 Referring Doctor: Nav Albarado MD PT Orders: PT CONSULT: Eval/treat Precautions: Fall. Standard. Weight bearing as tolerated on the left LE with AD. Patient Profile/Admitting Diagnosis: Bear is a 70-year-old male who presented to the ED with increased pain, swelling, and redness of the left knee and leg and decreased ability to move set extremity that had been going on 1-1/2 weeks prior. Patient is diagnosed with septic arthritis, acute GI bleeding, coronary artery disease, diabetes mellitus, hypertension, and hypercholesterolemia. Patient is status post debridement and lavage for infection and I&D of abscess on postoperative day 0. PMHX: All Active Problems?(Updated 06/10/21 @ 16:11 by Nav Albarado MD) DVT prophylaxis (Acute) CKD (chronic kidney disease) (Chronic) Acute anemia (Acute) Septic arthritis (Acute) Acute GI bleeding (Acute) Anaphylactic reaction due to adverse effect of correct drug or medicament properly administered, initial encounter (Acute) CAD (coronary artery disease) (Chronic) Acute kidney injury superimposed on CKD (Acute) Closed left clavicular fracture (Acute 09/07/18) Medical History? Diabetes Heart attack Hypercholesterolemia Hypertension Lip swelling Social History/Home Situation: Independent with all ADL performance without an assistive device. Lives with fianc? in a private home. 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 Equipment Owned/DME: None Subjective: Agreeable to PT consult. Reports 5/10 pain in the left lower extremity with movement and weight bearing. Nurse Wallace premedicated patient with IV Fentanyl for this session which tremendously helped patient. Objective: General Observation: Brandon wraps to left LE. Telemetry monitoring removed by nurse Palmer [facility]. Mental Status: Alert and oriented as to person, place, time, and purpose. Able to pay attention, focus, and respond appropriately. Pain: 5/10 in left LE Vital Signs: Within normal limits as closely monitored by nursing staff ROM: Right Upper Extremity: Shoulder Flexion WFL. Shoulder abduction WFL. Elbow flexion WFL. Wrist flexion WFL. Functional opening and closing of hand WFL. Left Upper Extremity: Shoulder Flexion WFL. Shoulder abduction WFL. Elbow flexion WFL. Wrist flexion WFL. Functional opening and closing of hand WFL. Right Lower Extremity: Hip flexion WFL. Hip abduction WFL. Knee flexion WFL. Ankle dorsiflexion WFL. Ankle plantarflexion WFL. Left Lower Extremity: Able to slide left heel to about 30 degrees of knee flexion and hip flexion. Needed assistance with moving left LE with sliding to the side for supine to sit. Strength: Right Upper Extremity: Shoulder flexors 4/5. Shoulder abductors 4/5. Elbow flexors 5/5. Elbow extensors 5/5. Applied Behavior Science Specialist strong. Left Upper Extremity: Shoulder flexors 4/5. Shoulder abductors 4/5. Elbow flexors 5/5. Elbow extensors 5/5. Applied Behavior Science Specialist strong. Right Lower Extremity: Hip flexors 5/5. Hip abductors 5/5. Knee flexors 5/5. Knee extensors 5/5. Ankle dorsiflexors 5/5. Ankle plantarflexors 5/5. Left Lower Extremity: NT Bed Mobility/Transfers: Supine to sit with minimal assist to left LE with cues for safe/correct technique Sit to stand with minimal assist of 2 with moderatecues for safe/correct technique Stand to sit with minimal assist of 2 with moderatecues for safe/correct technique Bed to reclining chair with minimal assist of 2 with moderatecues for safe/correct technique Gait: Instructed patient with level surface ambulation of 6 steps requiring minimal assist of 2. Gait antalgic. Pain report of 5/10 on the left LE. Able to allow for foot to touch floor during activity. Required moderate verbal cueing for posture, correct technique, and walker management. Balance: Static Sitting: Good Dynamic Sitting: Fair Static Standing: Poor Dynamic Standing: Poor Special Tests: Mobility Limitations Standardized Measure [facility] AM-PAC 6 clicks Basic Mobility Inpatient Short Form: Raw Score: 18 CMS Score: 47% deficit Informed Consent/Education: Patient was instructed in purpose of PT consult and plan of care. Agreeable to proceed with established PT POC to achieve personal goals. Assessment: Pain level limiting ability to perform transfers and ambulation. Will need to work with nurse for premedication for pain. Patient presents with clinical signs and symptoms consistent with current/admitting diagnoses that have resulted to mobility limitations, gait instability, generalized weakness, and overall ADL decline as demonstrated by the following impairment level findings: 1. Decreased strength to left LE major muscle groups 2. Impaired sitting/standing balance 3. Impaired activity tolerance 4. Limitation of joint range of motion in L LE joints Impairments are contributing to the following functional limitations: 1. Decline in bed mobility skills 2. Decline in transfer skills 3. Difficulty with ambulation without assistive device and physical assistance 4. Increased completion time for mobility ADL performance 5. Increased risk for falls 6. Difficulty with managing steps alone safely [place] is [place] 47546 moderate complexity based on the following: History: 70-year-old male with past medical history as indicated above Examination: Demonstrable impairment in strength, balance, and mobility level with underlying impairments and functional limitations as exhibited above as well as deficit score of 47% utilizing the [facility] Mobility Inpatient Short Form Presentation: Evolving Decision Makin moderate complexity Goals: Goals X1 week 1. Supine-Sit independent 2. Sit-Supine independent 3. Sit-Stand independent 4. Stand-Sit independent with FWW 5. Bed-Chair independent with FWW 6. Chair-Bed independent with FWW 7. Independent gait on level surface with use of FWW for at least 300 feet without report of pain nor dyspnea 8. Independent stair negotiation while holding onto B rails for at least 5 steps without report of pain nor dyspnea 9. Independent with home exercise program 10. Good static and dynamic standing balance/tolerance Plan of Care/Treatment Plan: 1-2x/day, 7 days/week x 1 week. Plan of care has been reviewed with the [employer]AIL AND RESTAURANT ASSOCIATE providing the service under Physical Therapy direction. Initiate Physical Therapy intervention for pain management as needed, strengthening, bed mobility, transfers, gait, stairs, balance training, and use of assistive device. DISCHARGE RECOMMENDATIONS: [] Home with no services [] [X] Home with services. Home when medically cleared by hospitalist. Patient will benefit from home health PT services in order to progress mobility level using least restrictive assistive ambulatory device, assess home safety, identify additional equipment needs, and establish a functional maintenance program that will increase ability of patient to remain at home. [] Home with outpatient PT [] [] SNF for continued rehabilitation [] [] Care Home Care [] [] SNF versus LTC based on ability to participate and progress [] TREATMENT CODE/TIME: 27601 x 20 minutes, 975 0 x 10 minutes beginning at 11:04 AM. Thank you for the opportunity to participate in the care of this patient. Barb rAaiza PT, DPT, CLT [facility] [place], [place]
[2021-06-12] MEDS: Pantoprazole 40 MG VIAL IVP ×2 (11:12→19:37)
[2021-06-12] MEDS: fentaNYL 100 MCG/2 ML VIAL 50 MCG IVP ×2 (11:13→15:18)
[2021-06-12] MEDS: Normal Saline 500 ML 30 ML IV (11:44)
--- NOTE | 2021-06-12 12:05 | CMPROGNOTE_ITS ---
- If Service Date Differs Date of service: 06/12/21 Time of Service: 12:05 Care Management Progress Note S/O:Bear was sitting up in a chair visiting with his mother and sister when CM met with him. He informed CM that he continues to have a lot of pain in his left knee but that it is well controlled with medication. Bear shared that he anticipates needing IV antibiotics for a while and is not sure if he will go home with home infusion or need to receive them in some other manner. CM explain ed that there are several options for prolonged IV antibiotic courses, depending on the organism and frequency of dosing. When the course has been determined, CM will work with Bear to coordinate the best plan for him. A: Bear is a 70 year old man admitted on 06/10/21 with a knee infection P:Bear will likely be discharged home, possibly with new home health services. A prolonged course of antibiotics may be needed. He will follow up with his PCP and plan of care and transport with family. CM will continue to provide support to Bear and his discharge needs.
[2021-06-12 12:32] LABS: HCT 23.9 % (40.0-50.0); HGB 7.4 g/dL (13.5-17.5)
[2021-06-12] MEDS: Polyethylene Glycol 3350 17 GM PACKET PO (13:07)
--- NOTE | 2021-06-12 15:28 | PTTR_ITS ---
Date of service: 06/12/21 Time of Service: 15:28 PT Notes Visit Reasons: knee joint infection Physical Therapy Inpatient Treatment Note Date: 06/12/2021 Precautions: Fall. Standard. Activity as tolerated. Subjective: Agreeable to PT session after Nurse Uma gave him IV Fentanyl. Objective: General Observation: Seated on chair. Mental Status: Alert and oriented as to person, place, time, and purpose. Able to pay attention, focus, and respond appropriately. Pain: 4-5//10 in L LE Bed Mobility/Transfers: Sit to supine with minimal assist to left LE cues for safe/correct technique. Able to scoot up in bed using overhead trapeze. Sit to stand with minimal assist with minimal cues for safe/correct technique Stand to sit with standby assist with minimal cues for safe/correct technique Reclining chair to bed with minimal assist with minimal cues for safe/correct technique Gait: Instructed patient with level surface ambulation of 10 feet requiring minimal assist. Gait antalgic. Pain report of 4-5/10 on the left LE.? Able to allow forefoot to touch floor during activity.? Required moderate verbal cueing for posture, correct technique, and walker management. THERA EX: Hip IR in supine x 10, resisted hip/knee extension with patient pushing L LE against foot of bed x 10, LAQ x 10, seated hip flexion x 10. Balance: Static Sitting: Good Dynamic Sitting: Fair Static Standing: Fair Dynamic Standing: Poor Assessment: Pain level limiting ability to perform transfers and ambulation.? Will need to work with nurse for premedication for pain to maximize performance. DISCHARGE RECOMMENDATIONS: [] ? Home with no services [] [X] ? Home with services. ? Home when medically cleared by hospitalist.? Patient will benefit from home health PT services in order to progress mobility level using least restrictive assistive ambulatory device, assess home safety, identify additional equipment needs, and establish a functional maintenance program that will increase ability of patient to remain at home. [] ? Home with outpatient PT [] [] ? SNF for continued rehabilitation [] [] ? [facility] Care [] [] ? SNF versus LTC based on ability to participate and progress [] TREATMENT CODE/TIME: 72994 x 15 minutes, 68987 x 12 minutes beginning at 15:28 PM.
--- NOTE | 2021-06-12 15:30 | W.PM.PROGNOT ---
Date of Service Date of service: 06/12/21 Time of Service: 12:45 Assessment and Plan Assessment and plan (1) Cutaneous abscess of left knee: Status: Acute Assessment and plan: Bear is status post I&D of an abscess about the anterolateral aspect of the left leg. This was a substantially large abscess. It is now decompressed and currently packed with iodoform dressing. We will leave the current dressing on for 1 more day and then tomorrow remove the dressing. At that point, we can start doing daily withdrawals of the packing material. I do not think need to repack material less it seems to be grossly purulent. I also do not think we will need secondary debridements but is possible. It will take a few days to see significant changes with his inflammatory markers but I do expect, tomorrow he will have some improvements with these markers. (2) Septic arthritis of knee, left: Status: Acute Assessment and plan: Bear is status post arthroscopic debridement and washout for his septic arthritis. He does have severe arthritis in the knee at baseline. Thankfully, the tissues appear to be newly infected and the synovium was easily. The dressing will be changed tomorrow and I encourage range of motion and weightbearing as tolerated. Subjective Subjective Interval history since last seen: All this 70-year-old who is status post irrigation debridement of a left leg abscess as well as arthroscopic lavage and debridement of a left septic knee arthritis. In general, he reports be doing well. The pain he is having now is much better. He has been able to get out of the bed and into a chair. He denies current fevers or chills. All cultures have grown pansensitive staph. He has been in the ICU has been stable requiring no other hemodynamic support. Exam Narrative Exam Narrative: Sitting up in the chair. Evaluation the left leg shows an Brandon wrap from the foot to the thigh. No dressing discharge. He is able to actively dorsiflex and plantarflex the left foot. He also can actively extend and flex the left knee albeit with some pain. Objective Last Vital Signs Temp 37.5 C 06/12/21 13:57 Pulse 80 06/12/21 13:57 Resp 17 06/12/21 13:57 BP 90/56 L 06/12/21 13:57 Pulse Ox 94 06/12/21 13:57 Laboratory Results - last 24 hr 06/11/21 06/12/2106/12/22 17:35 06:04 06:04 WBC 25.47 H* RBC 2.57 L Hgb 7.7 L 7.1 L Hct 25.2 L 23.5 L MCV 91.4 MCH 27.6 MCHC 30.2 L RDW 13.7 Plt Count 491 H MPV 8.7 Immature Gran % 1.2 Neutrophils % 88.8 Lymphocytes % 3.9 Monocytes % 5.7 Eosinophils % 0.2 Basophils % 0.2 Nucleated RBC % 0 Absolute Neutrophils 22.62 H Absolute Lymphocytes 0.99 L Absolute Monocytes 1.45 H Absolute Eosinophils 0.05 Absolute Basophils 0.05 RBC Morphology See Below Hypochromasia 2+ Sodium 135 L Potassium 4.5 Chloride 102 Carbon Dioxide 23.9 Anion Gap 9.1 BUN 36 H Creatinine 2.2 H Estimated GFR/1.73 m2 29.91 Glucose 296 H Calcium 8.2 L Total Bilirubin 0.4 AST 25 ALT 43 Alkaline Phosphatase 91 C-Reactive Protein 19.41 H Total Protein 6.5 Albumin 1.3 L 06/12/21 12:25 WBC RBC Hgb 7.4 L Hct 23.9 L MCV MCH MCHC RDW Plt Count MPV Immature Gran % Neutrophils % Lymphocytes % Monocytes % Eosinophils % Basophils % Nucleated RBC % Absolute Neutrophils Absolute Lymphocytes Absolute Monocytes Absolute Eosinophils Absolute Basophils RBC Morphology Hypochromasia Sodium Potassium Chloride Carbon Dioxide Anion Gap BUN Creatinine Estimated GFR/1.73 m2 Glucose Calcium Total Bilirubin AST ALT Alkaline Phosphatase C-Reactive Protein Total Protein Albumin
--- NOTE | 2021-06-12 16:54 | W.PM.PROGNOT ---
Date of Service Date of service: 06/12/21 Time of Service: 16:54 Assessment and Plan Assessment and plan (1) Septic arthritis: Status: Acute Assessment and plan: S/P:Left Knee Arthroscopic Debridement and Lavage for Infection, Left Leg Incision and Drainage of Abscess WBC count today was increased to 25.47 Blood cxs and fluid from knee aspirate growing staph aureus; preliminary. On Zosyn and Vanc. Narrow antibiotic when ID complete; MSSA vs MRSA. Midline placed. Blood cultures in AM (2) Acute GI bleeding: Status: Acute Assessment and plan: Drop in hgb from 13.6 on 05/14/21 to 7.7 > 7.2 >7.4. He recently finished a prednisone taper and has been using Aleve BID. Concerning for an upper GI bleed. Melanotic stools that were heme positive in ED. Will contact general surgery if Hgb continues to decline for possible endoscopy. PPI (3) CAD (coronary artery disease): Status: Chronic Assessment and plan: No angina. Does have some CABRERA but likely related to his anemia. Hold ASA and Plavix d/t acute anemia; likely GI bleed. Cont BB and statin. (4) Diabetes: Assessment and plan: Cont basal/bolus insulin and diabetic diet. Monitor. (5) Hypertension: Assessment and plan: On metoprolol. BP in the low 100's currently in background of acute anemia. Monitor. (6) Hypercholesterolemia: Assessment and plan: Cont Rosuvastatin. (7) CKD (chronic kidney disease): Status: Chronic Assessment and plan: Creatinine 2.2 > 2.2 > 2.2; above baseline of around 1.5, but improved from last admission when it was as high as 3.8. Avoid nephroxins and hypotension. Monitor. (8) DVT prophylaxis: Status: Acute Assessment and plan: Avoid chemical prophylaxis d/t acute anemia. SCDs; however, the LLE is painful from the knee down to the ankle so may not tolerate. Subjective Subjective Patient reports: feels better, still having pain, pain is less and afebrile; denies nausea, vomiting or shortness of breath Exam Narrative Exam Narrative: Lying in bed. Pleasant, conversant, NAD Const General: cooperative Nutritional Appearance: overweight Orientation: alert and oriented x3 Eyes General: appearance normal, both eyes and all related structures Sclera: sclerae normal Resp Effort & Inspection: normal respiratory effort Auscultation: clear to auscultation bilaterally Cardio Rate: regular rate Rhythm: regular rhythm Heart Sounds: S1 normal and S2 normal GI Palpation: soft and nontender Auscultation: normal bowel sounds Skin General skin exam: no rashes or lesions noted Rashes: no rashes Extrem General: no pedal edema and no calf tenderness Psych Appearance: grossly normal Mental Status: mental status grossly normal Mood: congruent mood Affect: normal affect Objective Last Vital Signs Temp 37.9 C H 06/12/21 16:42 Pulse 80 06/12/21 13:57 Resp 17 06/12/21 13:57 BP 90/56 L 06/12/21 13:57 Pulse Ox 94 06/12/21 13:57 Laboratory Results - last 24 hr 06/11/21 06/12/21 06/12/21 17:35 06:04 06:04 WBC 25.47 H* RBC 2.57 L Hgb 7.7 L 7.1 L Hct 25.2 L 23.5 L MCV 91.4 MCH 27.6 MCHC 30.2 L RDW 13.7 Plt Count 491 H MPV 8.7 Immature Gran % 1.2 Neutrophils % 88.8 Lymphocytes % 3.9 Monocytes % 5.7 Eosinophils % 0.2 Basophils % 0.2 Nucleated RBC % 0 Absolute Neutrophils 22.62 H Absolute Lymphocytes 0.99 L Absolute Monocytes 1.45 H Absolute Eosinophils 0.05 Absolute Basophils 0.05 RBC Morphology See Below Hypochromasia 2+ Sodium 135 L Potassium 4.5 Chloride 102 Carbon Dioxide 23.9 Anion Gap 9.1 BUN 36 H Creatinine 2.2 H Estimated GFR/1.73 m2 29.91 Glucose 296 H Calcium 8.2 L Total Bilirubin 0.4 AST 25 ALT 43 Alkaline Phosphatase 91 C-Reactive Protein 19.41 H Total Protein 6.5 Albumin 1.3 L 06/12/21 12:25 WBC RBC Hgb 7.4 L Hct 23.9 L MCV MCH MCHC RDW Plt Count MPV Immature Gran % Neutrophils % Lymphocytes % Monocytes % Eosinophils % Basophils % Nucleated RBC % Absolute Neutrophils Absolute Lymphocytes Absolute Monocytes Absolute Eosinophils Absolute Basophils RBC Morphology Hypochromasia Sodium Potassium Chloride Carbon Dioxide Anion Gap BUN Creatinine Estimated GFR/1.73 m2 Glucose Calcium Total Bilirubin AST ALT Alkaline Phosphatase C-Reactive Protein Total Protein Albumin
[2021-06-12] MEDS: Insulin Aspart 300 UNITS/3 ML PEN SC (17:14)
[2021-06-12] MEDS: Insulin Glargine 300 UNITS/3 ML PEN 30 UNITS SC (21:04)
[2021-06-13] VITALS (19 sets, daily range): BP systolic 98–137; BP diastolic 59–84; PULSE 55–99; RESP 16–20; TEMP 36.3–38.7; O2SAT 91–98
[2021-06-13] MEDS: Heparin 5,000 UNITS/ML VIAL 5000 UNITS SC (00:41)
[2021-06-13] MEDS: PIPERACILLIN/TAZO 3.375 GM in Normal Saline 50 ML IVPB ×4 (00:41→20:03)
[2021-06-13 07:04] LABS: C-Reactive Protein 14.28 mg/dL (0.0-0.3)
[2021-06-13 07:46] LABS: Abs Immature Grans 0.28 10^3/uL (0.0-0.06); Absolute Eosinophil Count 0.25 10^3/uL (0.0-0.7); Absolute Monocyte Count 1.28 10^3/uL (0.1-0.8); Absolute Neutrophil Count 17.67 10^3/uL (1.2-6.7); Basophils % 0.3; Eosinophils % 1.2; HCT 21.9 % (40.0-50.0); Immature Grans % 1.4; Lymphocytes % 5.6; MCHC 30.6 % (32.0-36.0); MCV 91.6 fL (80-95); MPV 8.9 fL (8.0-11.0); Monocytes % 6.2; Neutrophils % 85.3; Nucleated RBC 0 %; Platelet Count 553 10^3/uL (130-400); RBC 2.39 10^6/uL (4.36-5.78); RDW 14.1 % (11.8-14.1); RDW-SD 46.7 fL; WBC 20.72 10^3/uL (4.4-10.8)
[2021-06-13 07:48] LABS: Absolute Basophil Count 0.06 10^3/uL (0.0-0.2)
[2021-06-13 07:49] LABS: HGB 6.7 g/dL (13.5-17.5)
[2021-06-13 07:50] LABS: Absolute Lymphocyte Count 1.16 10^3/uL (1.2-3.4)
[2021-06-13] MEDS: Furosemide 20 MG TAB PO (08:44)
[2021-06-13] MEDS: Pantoprazole 40 MG VIAL IVP ×2 (08:44→20:02)
[2021-06-13] MEDS: Normal Saline Flush 10 ML SYR IVP ×2 (08:44→20:31)
[2021-06-13] MEDS: Rosuvastatin 10 MG TAB PO (08:44)
[2021-06-13] MEDS: Polyethylene Glycol 3350 17 GM PACKET PO (08:44)
[2021-06-13] MEDS: Metoprolol 25 MG TAB 75 MG PO ×2 (08:45→20:02)
[2021-06-13] MEDS: Cetirizine 10 MG TAB PO (08:45)
[2021-06-13] MEDS: Insulin Aspart 300 UNITS/3 ML PEN 20 UNITS SC ×3 (08:45→17:04)
[2021-06-13] MEDS: Montelukast 10 MG TAB PO (08:45)
[2021-06-13] MEDS: oxyCODONE 5 MG TAB PO ×2 (08:46→12:41)
[2021-06-13] MEDS: Insulin Aspart 300 UNITS/3 ML PEN SC ×3 (08:46→17:05)
--- NOTE | 2021-06-13 10:35 | CMPROGNOTE_ITS ---
- If Service Date Differs Date of service: 06/13/21 Time of Service: 10:35 Care Management Progress Note S/O: S/O: Bear was sitting up in bed when CM met with him. He reported that he is still having pain in his knee, but it has been mostly well controlled. Per MD, his abx course has not yet been determined, but he may be able to have a short course of IV abx, followed by a long course of oral abx. CM discussed options for Bear if he is required to have vermin exterminator IV abx, although a decision won't be made until the course has been identified. CM will continue to follow. A: Bear is a 70 year old man admitted on 06/10/21 with a knee infection P:Bear will likely be discharged home, possibly with new home health services. A prolonged course of antibiotics may be needed. He will follow up with his PCP and plan of care and transport with family. CM will continue to provide support to Bear and his discharge needs.
[2021-06-13] MEDS: Acetaminophen 325 MG TAB PO ×3 (11:21→23:00)
--- NOTE | 2021-06-13 12:56 | W.PM.PROGNOT ---
Date of Service Date of service: 06/13/21 Time of Service: 12:56 Assessment and Plan Assessment and plan (1) Septic arthritis: Status: Acute Assessment and plan: S/P:Left Knee Arthroscopic Debridement and Lavage for Infection, Left Leg Incision and Drainage of Abscess WBC count still elevated but improved; down to 20.72. Repeat blood cultures were drawn early this AM to see if bacteremia had been treated, but later did have a temp. Blood cultures growing MSSA; sensitive to Vanc as well as cipro, and oxacillin. Cont cefepime and vancomycin but consider stopping cefepime. (2) Acute GI bleeding: Status: Acute Assessment and plan: Drop in hgb from 13.6 on 05/14/21 to 7.7 > 7.2 >7.4 > 6.7 He recently finished a prednisone taper and has been using Aleve BID. Concerning for an upper GI bleed. Melanotic stools that were heme positive in ED. Today, 06/13, stool is heme negative. Transfuse 1 unit RBCs. PPI (3) CAD (coronary artery disease): Status: Chronic Assessment and plan: No angina. Does have some CABRERA but likely related to his anemia. Hold ASA and Plavix d/t acute anemia; likely GI bleed. Cont BB and statin. (4) Diabetes: Assessment and plan: Cont basal/bolus insulin and diabetic diet. Monitor. (5) Hypertension: Assessment and plan: On metoprolol. BP in the low 100's currently in background of acute anemia. Monitor. (6) Hypercholesterolemia: Assessment and plan: Cont Rosuvastatin. (7) CKD (chronic kidney disease): Status: Chronic Assessment and plan: Creatinine 2.2 > 2.2 > 2.2; above baseline of around 1.5, but improved from last admission when it was as high as 3.8. Avoid nephroxins and hypotension. Monitor. (8) DVT prophylaxis: Status: Acute Assessment and plan: Had restarted heparin, but now stopped and Hgb has declined. Getting an RBC transfusion. SCDs; however, the LLE is painful from the knee down to the ankle so may not tolerate. Subjective Subjective Patient reports: still having pain (With movement of left knee.), tolerating a regular diet and fever Interval history since last seen: Initially this AM he was afebrile, then late in the AM developed a temp of 38.7 Exam Narrative Exam Narrative: Lying in bed. Pleasant, conversant, NAD Const General: cooperative Nutritional Appearance: overweight Orientation: alert and oriented x3 Eyes General: appearance normal, both eyes and all related structures Conjunctivae: conjunctival abnormality bilaterally pallor Sclera: sclerae normal Resp Effort & Inspection: normal respiratory effort Auscultation: clear to auscultation bilaterally Cardio Rate: regular rate Rhythm: regular rhythm Heart Sounds: S1 normal and S2 normal GI Palpation: soft and nontender Auscultation: normal bowel sounds Skin General skin exam: no rashes or lesions noted Rashes: no rashes Extrem General: no pedal edema and no calf tenderness Psych Appearance: grossly normal Mental Status: mental status grossly normal Mood: congruent mood Affect: normal affect Objective Last Vital Signs Temp 38.6 C H 06/13/21 12:42 Pulse 91 H 06/13/21 12:42 Resp 18 06/13/21 12:42 BP 109/63 06/13/21 12:42 Pulse Ox 97 06/13/21 12:42 Laboratory Results - last 24 hr 06/10/21 06/13/21 06/13/21 11:54 06:00 06:00 WBC 20.72 H RBC 2.39 L Hgb 6.7 L* Hct 21.9 L MCV 91.6 MCH 28.0 MCHC 30.6 L RDW 14.1 Plt Count 553 H MPV 8.9 Immature Gran % 1.4 Neutrophils % 85.3 Lymphocytes % 5.6 Monocytes % 6.2 Eosinophils % 1.2 Basophils % 0.3 Nucleated RBC % 0 Absolute Neutrophils 17.67 H Absolute Lymphocytes 1.16 L Absolute Monocytes 1.28 H Absolute Eosinophils 0.25 Absolute Basophils 0.06 C-Reactive Protein 14.28 H Patient ABO/Rh A Positive Antibody Screen NEGATIVE Crossmatch See Detail
--- NOTE | 2021-06-13 14:18 | PHA.REVIEW ---
Pharmacy Admission Review - Admission Clinical Review (Last Reviewed 06/10/21 @ 17:13 by Alex Rice MD) Cutaneous abscess of left knee (Acute) Septic arthritis of knee, left (Acute) DVT prophylaxis (Acute) Septic arthritis (Acute) Acute GI bleeding (Acute) lisinopril Allergy (Severe, Unverified 06/10/21 10:26) Anaphylaxis varenicline tartrate [From Chantix] Allergy (Unknown, Unverified 06/10/21 10:26) hornet Allergy (Uncoded 06/10/21 10:26) facial/throat swelling Resuscitation Status Full Code Height 6 ft 1 in Weight 112.4 kg - Renal Dosing Renal Dosing: BUN 36 mg/dL (7-18) H 06/12/21 06:04 Creatinine 2.2 mg/dL (0.70-1.30) H 06/12/21 06:04 Medications needing adjustments: Reviewed List of meds needing interventions: eCrCl 42 ml/min, all orders doses appropriately - Anticoagulation Anticoagulation: Hgb 6.7 g/dL (13.5-17.5) L* 06/13/21 06:00 Hct 21.9 % (40.0-50.0) L 06/13/21 06:00 Plt Count 553 10^3/uL (130-400) H 06/13/21 06:00 Creatinine 2.2 mg/dL (0.70-1.30) H 06/12/21 06:04 Therapeutic Anticoagulation: Reviewed Medications: Heparin (currently on hold due to gi bleed, TEDs) - Opiate Usage Evaluate Pain Scale/Pains Meds: Reviewed (fentanyl 50mcg prn, oxycodone 5mg prn) Scheduled Bowel Reg ordered if on Opiates?: Yes - Relevant Labs ESR 19 mm/hr (0-20) 06/10/21 10:25 Sodium 135 mmol/L (136-145) L 06/12/21 06:04 Potassium 4.5 mmol/L (3.5-5.1) 06/12/21 06:04 Chloride 102 mmol/L (98-107) 06/12/21 06:04 C-Reactive Protein 14.28 mg/dL (0.0-0.3) H 06/13/21 06:00 Electrolytes, C-Reactive P, ESR: N/A - DM Control DM Control: Glucose 296 mg/dL (74-106) H 06/12/21 06:04 Hemoglobin A1c Cancelled 06/11/21 05:35 Finger Stick Blood Glucose 280 Finger Stick Blood Glucose 280 Finger Stick Blood Glucose 280 Finger Stick Blood Glucose 280 Finger Stick Blood Glucose 183 Finger Stick Blood Glucose 183 Finger Stick Blood Glucose 183 Finger Stick Blood Glucose 183 Insulin Dosing: Reviewed (aspart 20u with meals plus SS, 30 units glargine at HS) - Heart Failure/GA EF%, CHAO's, B-Blockers, Diuretics: Reviewed - BP Control BP Control: Blood Pressure 119/84 Blood Pressure 109/63 Blood Pressure 112/66 Blood Pressure 98/59 Blood Pressure 113/66 Blood Pressure 131/73 Blood Pressure 130/75 Blood Pressure 129/69 Blood Pressure 105/69 If elevated: Reviewed - IV to PO Switch IV Medications: Reviewed - Home Meds Home Med List reviewed: Reviewed Relevent Home Meds Not ordered & why?: not ordered: celebrex, clopidogrel, levothyroxine, lisinopril, magox - Current meds Current Medication Order Review: Reviewed (vanco and zosyn continue; cultures sensitive to vanc, oxacillin, dapto -- anticipate dc of zosyn (however pt did spike a fever today))
[2021-06-13] MEDS: VANCOMYCIN/WATER (PEG) 1 GM/200 ML BAG IV (14:49)
--- NOTE | 2021-06-13 15:26 | PT.INTREAT ---
PT Notes Visit Reasons: Knee Joint Infection Inpatient Physical Therapy Treatment Note [facility] Date: 06/13/21 SUBJECTIVE: Bear reports concern that if he moves his knee it may rip open. Is willing to work with PT. OBJECTIVE: [] PAIN: c/o knee pain with mvmt. BED MOBILITY/TRANSFERS Supine-sit: SBA Sit-supine: min A with L LE Sit-stand:CGA Stand-sit: CGA GAIT Assistive Device: FWW Weight bearing: FWB Assist: CGA Distance: 10' Deviation: cues to place foot flat on floor and try to straighten knee. THEREX: ROM of knee as well as basic bed ex. See flowsheet for details. ASSESSMENT: tolerated session well. Nervous about moving knee as it tends to hurt him. Definitely does better premedicated. Pt received blood this pm and stayed in bed, but was able to get through his ex routine. Not able to perform active DF of ankle on left. PLAN: will continue to progress strength and ROM, progress independence with functional mobility following PT POC. TREATMENT CODE/TIME: 50 min in am and 15 min in pm. [id number], [id number]
[2021-06-13 15:56] LABS: Anion Gap 8.8 mmol/L (3-11); BUN 38 mg/dL (7-18); CO2 26.2 mmol/L (21.0-32.0); Calcium 8.1 mg/dL (8.5-10.1); Chloride 102 mmol/L (98-107); Estimated GFR 33.39 (mL/min/1.73m2); Potassium 4.6 mmol/L (3.5-5.1); Sodium 137 mmol/L (136-145)
[2021-06-13 16:03] LABS: Glucose 170 mg/dL (74-106)
--- NOTE | 2021-06-13 17:00 | PDOC.CMPRO ---
- If Service Date Differs Date of service: 06/13/21 Time of Service: 17:00
[2021-06-13 19:07] LABS: HCT 23.5 % (40.0-50.0); HGB 7.3 g/dL (13.5-17.5)
[2021-06-13] MEDS: Insulin Glargine 300 UNITS/3 ML PEN 30 UNITS SC (20:03)
--- NOTE | 2021-06-13 21:08 | W.PM.PROGNOT ---
Date of Service Date of service: 06/13/21 Time of Service: 15:45 Assessment and Plan Assessment and plan (1) Cutaneous abscess of left knee: Status: Acute (2) Septic arthritis of knee, left: Status: Acute Assessment and plan: Bear is a 70-year-old who has sepsis from MSSA. He has positive blood cultures as well as an abscess about the left leg and septic arthritis of the left knee. He is postop day #2 status post irrigation debridement of the left leg abscess and and arthroscopic washout for the left knee is arthritis. He still has significant pain which is to be expected at this time. Will take a few days for this to start turning the corner. He has had a slight decrease in his CRP as well as his white count which is encouraging. He has some very mild reaccumulation of sanguinous material about the left leg but it was fairly minimal. The wound is open and is easily drainable. There is no significant reaccumulation. At this point, I recommend we continue to follow these wounds. It is unlikely he will need a secondary washout although it is possible his clinical picture deteriorates or he seems to stagnate. I would default to the medicine service about adequate antibiotic coverage but this does appear to be sensitive staph aureus. Subjective Subjective Interval history since last seen: Bear is postop day #2 from irrigation debridement of his left leg wound along with arthroscopic lavage and debridement of his left knee for septic arthritis. He still continues have some pain although he feels it is getting somewhat better. He has not had any significant fevers or chills today. He continues to receive antibiotics. He has been able to get out of bed one time but does so with significant discomfort. Exam Narrative Exam Narrative: Resting in the bed. No acute distress. Alert oriented x3. The left knee is kept in a semiflexed position with some slight external rotation at the hip. Dressing of the left knee is clean dry and intact. He is dressings are removed and the wound is inspected. The knee shows recurrence of effusion but no drainage. The wound of the left anterolateral leg has some purulent?sanguinous material which is expressible, however, may be 10 cc at most. There is not monik reaccumulation. The back material withdrawn inch and cleaned. The wound is then redressed with 4 x 4's, ABD, Kerlix and Brandon wrap. No significant pain to palpation proximal to the knee, around the thigh. Objective Last Vital Signs Temp 36.3 C L 06/13/21 19:57 Pulse 99 H 06/13/21 19:57 Resp 18 06/13/21 19:57 BP 137/71 06/13/21 19:57 Pulse Ox 94 06/13/21 19:57 Laboratory Results - last 24 hr 06/10/21 06/13/21 06/13/21 11:54 06:00 06:00 WBC 20.72 H RBC 2.39 L Hgb 6.7 L* Hct 21.9 L MCV 91.6 MCH 28.0 MCHC 30.6 L RDW 14.1 Plt Count 553 H MPV 8.9 Immature Gran % 1.4 Neutrophils % 85.3 Lymphocytes % 5.6 Monocytes % 6.2 Eosinophils % 1.2 Basophils % 0.3 Nucleated RBC % 0 Absolute Neutrophils 17.67 H Absolute Lymphocytes 1.16 L Absolute Monocytes 1.28 H Absolute Eosinophils 0.25 Absolute Basophils 0.06 Sodium Potassium Chloride Carbon Dioxide Anion Gap BUN Creatinine Estimated GFR/1.73 m2 Glucose Calcium C-Reactive Protein 14.28 H Patient ABO/Rh A Positive Antibody Screen NEGATIVE Crossmatch See Detail 06/13/21 06/13/21 06:00 18:50 WBC RBC Hgb 7.3 L Hct 23.5 L MCV MCH MCHC RDW Plt Count MPV Immature Gran % Neutrophils % Lymphocytes % Monocytes % Eosinophils % Basophils % Nucleated RBC % Absolute Neutrophils Absolute Lymphocytes Absolute Monocytes Absolute Eosinophils Absolute Basophils Sodium 137 Potassium 4.6 Chloride 102 Carbon Dioxide 26.2 Anion Gap 8.8 BUN 38 H Creatinine 2.0 H Estimated GFR/1.73 m2 33.39 Glucose 170 H D Calcium 8.1 L C-Reactive Protein Patient ABO/Rh Antibody Screen Crossmatch
[2021-06-14] VITALS (8 sets, daily range): BP systolic 112–143; BP diastolic 66–80; PULSE 88–96; RESP 16–18; TEMP 37–38.6; O2SAT 92–97
[2021-06-14] MEDS: PIPERACILLIN/TAZO 3.375 GM in Normal Saline 50 ML IVPB ×2 (01:35→08:40)
[2021-06-14] MEDS: Normal Saline Flush 10 ML SYR IVP ×3 (01:39→19:25)
[2021-06-14] MEDS: Acetaminophen 325 MG TAB PO ×3 (05:50→21:40)
[2021-06-14 07:42] LABS: Vancomycin, Trough 17.2 ug/mL (10.0-20.0)
[2021-06-14] MEDS: Rosuvastatin 10 MG TAB PO (08:30)
[2021-06-14] MEDS: Pantoprazole 40 MG VIAL IVP (08:37)
[2021-06-14] MEDS: Cetirizine 10 MG TAB PO (08:38)
[2021-06-14] MEDS: Metoprolol 25 MG TAB 75 MG PO ×2 (08:38→19:24)
[2021-06-14] MEDS: oxyCODONE 5 MG TAB PO ×2 (08:38→12:45)
[2021-06-14] MEDS: Furosemide 20 MG TAB PO (08:39)
[2021-06-14] MEDS: Montelukast 10 MG TAB PO (08:39)
[2021-06-14] MEDS: Insulin Aspart 300 UNITS/3 ML PEN SC ×4 (08:46→17:45)
[2021-06-14] MEDS: Insulin Aspart 300 UNITS/3 ML PEN 20 UNITS SC (08:46)
--- NOTE | 2021-06-14 09:08 | W.PM.PROGNOT ---
Date of Service Date of service: 06/14/21 Time of Service: 09:08 Assessment and Plan Assessment and plan (1) Septic arthritis of knee, left: Status: Acute Assessment and plan: Status post arthroscopic incision and drainage and washout of [place] left knee. Blood cultures from 06/10/2021 were positive for MSSA and arthrocentesis from 06/10/2021 also was positive for MSSA. His MRSA screen was negative. Incision and drainage and washout from 06/11/2021 showed the same MSSA organism with the same susceptibilities as previous knee culture from 06/10/2021. One out of two sets of cultures from 06/13/2021 remains positive for gram-positive cocci. Based upon my discussion with infectious disease services from [facility] I will be changing his antibiotic regimen from Zosyn and vancomycin to Ancef 2 g IV every 8 hours. Will need 6 weeks of antibiotics from the first negative blood culture. Continue checking daily blood cultures until blood cultures have cleared. If blood cultures do not clear patient will need a DELISA to rule out endocarditis. Transthoracic echocardiogram did not show any vegetations. (2) Cutaneous abscess of left knee: Status: Acute Assessment and plan: As above. Ortho did decide whether or not patient needs further drainage procedure. Continue to monitor inflammatory markers and daily blood cultures. (3) Acute GI bleeding: Status: Acute Assessment and plan: Drop in hgb from 13.6 on 05/14/21 to 7.7 > 7.2 >7.4 > 6.7 He recently finished a prednisone taper and has been using Aleve BID. Concerning for an upper GI bleed. Melanotic stools that were heme positive in ED. 06/13, stool is heme negative. Status post Transfuse 1 unit RBCs On 06/13/2021 Changed from Protonix IV to oral Protonix 40 mg twice daily add Carafate 1 g before meals and at bedtime. Monitor blood counts. Will transfuse iron (4) Diabetes: Assessment and plan: poorly controlled DM secondary to septic arthritis/knee abscess; also patient came off recent prednisone taper for anaphylaxis from lisinopril. I have adjusted his Lantus as well as his mealtime insulin. He continues to have insulin resistant corrective NovoLog scale (5) CAD (coronary artery disease): Status: Chronic Assessment and plan: No angina. Does have some CABRERA but likely related to his anemia. Hold ASA and Plavix d/t acute anemia; likely GI bleed. Cont BB and statin. (6) Hypertension: Assessment and plan: On metoprolol. BP in the low 100's currently in background of acute anemia. Monitor. (7) Hypercholesterolemia: Assessment and plan: Cont Rosuvastatin. (8) CKD (chronic kidney disease): Status: Chronic Assessment and plan: Creatinine 2.2 > 2.2 > 2.2>2.0. above baseline of around 1.5, but improved from last admission when it was as high as 3.8. Avoid nephroxins and hypotension. Monitor. (9) DVT prophylaxis: Status: Acute Assessment and plan: Had restarted heparin, but now stopped and Hgb has declined. Getting an RBC transfusion. SCDs; however, the LLE is painful from the knee down to the ankle so may not tolerate. Subjective Subjective Interval history since last seen: Still with left knee pain but improved since washout. Patient denies any prosthetic joints or hardware such as pacer/AICD. He has PMH of CAD, CKD, recently admitted to [facility] for allergic reaction with urticaria and swelling of tongue. He presented to the ED currently with c/o left knee pain, swelling and redness for appx the past 1.5 weeks. He is now status post arthroscopic debridement and washout for his septic arthritis. status post I&D of an abscess about the anterolateral aspect of the left leg.? This was a substantially large abscess. Surgery was 06/11. I spoke w/ I.D. @ [facility], Dr. Metz, he recommends d/c Zosyn and Vancomycin and begin Ancef 2 gm IV q8hr and continued to obtain daily blood cultures until negative and then treat for 6 weeks. If blood cultures have not cleared by day 5 or 6 then he would recommend transfer to tertiary center for DELISA to rule out endocardits. TTE did not show any vegetations. Exam Narrative Exam Narrative: Morbidly obese white male lying in bed semifowler position. Patient just completed breakfast. He denies any shortness of breath or chest pain. Does have left knee pain with any movement. Lungs are clear to auscultation Heart regular rate and rhythm with no appreciable murmur rub Abdomen is soft nontender normal bowel sounds no guarding or tenderness. Left leg the knee is wrapped in Brandon wrap and bandages which I did not take down the dressing but will defer exam until orthopedic surgery comes around around on the patient. Left foot is edematous there is no erythema or redness or evidence of skin breakdown in the left foot. Objective Last Vital Signs Temp 37 C 06/14/21 07:40 Pulse 94 H 06/14/21 07:40 Resp 18 06/14/21 07:40 BP 143/80 H 06/14/21 07:40 Pulse Ox 95 06/14/21 07:40 Laboratory Results - last 24 hr 06/10/21 06/13/21 06/13/21 11:54 06:00 13:00 Hgb Hct Sodium 137 Potassium 4.6 Chloride 102 Carbon Dioxide 26.2 Anion Gap 8.8 BUN 38 H Creatinine 2.0 H Estimated GFR/1.73 m2 33.39 Glucose 170 H D Calcium 8.1 L Vancomycin Trough Cancelled Patient ABO/Rh A Positive Antibody Screen NEGATIVE Crossmatch See Detail 06/13/21 06/14/21 18:50 07:20 Hgb 7.3 L Hct 23.5 L Sodium Potassium Chloride Carbon Dioxide Anion Gap BUN Creatinine Estimated GFR/1.73 m2 Glucose Calcium Vancomycin Trough 17.2 Patient ABO/Rh Antibody Screen Crossmatch
[2021-06-14] MEDS: ceFAZolin 2 GM/50 ML BAG IVPB ×2 (09:35→17:46)
--- NOTE | 2021-06-14 09:45 | PTTR_ITS ---
Date of service: 06/14/21 Time of Service: 09:45 PT Notes Visit Reasons: Knee Joint Infection Physical Therapy Inpatient Treatment Note Date: 06/14/2021 Precautions: Fall. Standard. WBAT on L LE with AD. Subjective: Agreeable to PT session. Reports much improved pain level at 4-5/10 with weight bearing. Objective: General Observation: Supine in bed. Mental Status: Alert and oriented as to person, place, time, and purpose. Able to pay attention, focus, and respond appropriately. Pain: 4-5//10 in L LE Bed Mobility/Transfers: Sit to supine with standby assist Sit to stand with standby assist Stand to sit with standby assist Reclining chair to bed standby assist Gait: Instructed patient with level surface ambulation of 12 feet +15 feet requiring contact-guard assist.? Gait antalgic. Now able to bring left foot flat on the floor however still with diminished push off and decreased knee extension at mid stance on the left side. Mild shortness of breath that resolved with rest. THERA EX: Hip IR in supine x 10 on the L, quad sets x10 on the L Balance: Static Sitting: Good Dynamic Sitting: Fair Static Standing: Fair Dynamic Standing: Poor Assessment: Pain tolerance improving as evidenced by increased weightbearing on the left LE. Continues to demonstrate impaired gait pattern as patient has diminished ability to extend knee at mid stance and and is unable to fully push off on the left side at end of stance phase of gait. DISCHARGE RECOMMENDATIONS: [] ? Home with no services [] [X] ? Home with services. ? Home when medically cleared by hospitalist.? Patient will benefit from home health PT services in order to progress mobility level using least restrictive assistive ambulatory device, assess home safety, identify additional equipment needs, and establish a functional maintenance program that will increase ability of patient to remain at home. [] ? Home with outpatient PT [] [] ? SNF for continued rehabilitation [] [] ? Long-Term Care [] [] ? SNF versus LTC based on ability to participate and progress [] TREATMENT CODE/TIME: 95294 x 15 minutes, 39677 x 8 minutes beginning at 9:45 AM.
--- NOTE | 2021-06-14 10:09 | PDOC.CMPRO ---
- If Service Date Differs Date of service: 06/14/21 Time of Service: 10:09 Care Management Progress Note S/O: S/O: Bear was sitting up in a chair when CM met with him. He continues to have pain in his left knee and in his hip. He stated that the pain medicine helps but only for a short time. Cultures of Rae's blood, wound and synovial fluid are all growing tovar-sensitive staphylococcus aureus. The last set of blood cultures drawn on 06/11 are still positive and growing gram positive cocci which is consistent with the S. aureus isolated in the other ccultures. He will likely require 6 weeks of IV antibiotics from the date of the last positive culture.Today his antibiotics were changed from Vancomycin and Zosyn to Cefazolin 2Gm every 8 hours. CM discussed options for long term acute care registered nurse IV antibiotic treatment with Bear and he verbalized that his preference would be to have home infusions if that is possible. A: Bear is a 70 year old man admitted on 06/10/21 with a knee infection P:Bear will likely be discharged home, possibly with new home health services. A prolonged course of IV antibiotics will likely be required. Bear would prefer to receive the antibiotics at home if at all possible. He will follow up with his PCP and plan of care and transport with family. CM will continue to provide support to Bear and his discharge needs.
[2021-06-14] MEDS: Sucralfate 1 GM TAB PO ×3 (11:48→21:40)
[2021-06-14 13:06] LABS: Abs Immature Grans 0.27 10^3/uL (0.0-0.06); Absolute Basophil Count 0.07 10^3/uL (0.0-0.2); Absolute Monocyte Count 1.14 10^3/uL (0.1-0.8); Basophils % 0.4; Eosinophils % 0.9; HCT 25.8 % (40.0-50.0); HGB 8.1 g/dL (13.5-17.5); Immature Grans % 1.5; Lymphocytes % 3.9; MCH 28.4 pg (27.0-33.0); MCHC 31.4 % (32.0-36.0); MCV 90.5 fL (80-95); MPV 8.5 fL (8.0-11.0); Monocytes % 6.5; Neutrophils % 86.8; Nucleated RBC 0 %; Platelet Count 538 10^3/uL (130-400); RBC 2.85 10^6/uL (4.36-5.78); WBC 17.49 10^3/uL (4.4-10.8)
[2021-06-14 13:16] LABS: Absolute Eosinophil Count 0.16 10^3/uL (0.0-0.7); Absolute Lymphocyte Count 0.68 10^3/uL (1.2-3.4); Absolute Neutrophil Count 15.18 10^3/uL (1.2-6.7); Anion Gap 9.7 mmol/L (3-11); BUN 29 mg/dL (7-18); CO2 26.3 mmol/L (21.0-32.0); CREATININE 2.1 mg/dL (0.70-1.30); Chloride 98 mmol/L (98-107); Estimated GFR 31.56 (mL/min/1.73m2); Glucose 281 mg/dL (74-106); Potassium 4.1 mmol/L (3.5-5.1); Sodium 134 mmol/L (136-145)
--- NOTE | 2021-06-14 14:26 | W.INDIABCONS ---
Date of service: 06/14/21 Time of Service: 14:26 Diabetes Inpatient Consult Reason for Visit: dm DESCRIPTION/ASSESSMENT: 70 year old male admitted with septic left knee s/p wash out with long standing hx of DM2, obesity, CKD, CAD with possible GI bleed. Following diabetic diet with excellent intake. Just completed prednison taper. Blood sugars remain elevated, treated with aspart 20 u with meals, lantus 30 units HS. Recommend 1:10 insulin to carb ratio at meals. Unable to visit with patient today as asleep. No recent A1C. Will follow and support. Will attempt to visit again today to provided diabetes education. Time Spent in Nutritional Counseling and Treatment: 0
[2021-06-14] MEDS: IRON SUCROSE COMPLEX 400 MG in Normal Saline 250 ML 100 MG IVPB (15:21)
--- NOTE | 2021-06-14 15:30 | PT.INTREAT ---
PT Notes Visit Reasons: Knee Joint Infection Inpatient Physical Therapy Treatment Note [facility] Date: 06/14/21 SUBJECTIVE: Bear states that he is tired. He has not been able to get much sleep. His knee is feeling a little bit better. OBJECTIVE: [] BED MOBILITY/TRANSFERS Supine-sit: SBA Sit-supine:SBA Sit-stand: SBA Stand-sit: SBA GAIT Assistive Device: FWW Weight bearing:FWB Assist:CGA Distance: 12'x2 THEREX: see flowsheet for global LE strengthening. ASSESSMENT: tolerated session well. Encouraged him to place heel down on floor during ambulation. PLAN: continue to progress following PT POC TREATMENT CODE/TIME: 23 min [id number], [id number]
[2021-06-14] MEDS: Acetaminophen 500 MG TAB 1000 MG PO (15:56)
[2021-06-14] MEDS: Pantoprazole 40 MG TABCR PO (19:24)
[2021-06-14] MEDS: Insulin Glargine 300 UNITS/3 ML PEN 35 UNITS SC (21:40)
[2021-06-15] VITALS (8 sets, daily range): BP systolic 119–149; BP diastolic 64–79; PULSE 87–102; RESP 15–18; TEMP 36.7–38.7; O2SAT 94–98
[2021-06-15] MEDS: ceFAZolin 2 GM/50 ML BAG IVPB ×3 (01:29→17:50)
[2021-06-15] MEDS: Normal Saline Flush 10 ML SYR IVP ×4 (01:31→21:19)
[2021-06-15 06:47] LABS: Abs Immature Grans 0.23 10^3/uL (0.0-0.06); Absolute Eosinophil Count 0.18 10^3/uL (0.0-0.7); Absolute Lymphocyte Count 0.95 10^3/uL (1.2-3.4); Absolute Monocyte Count 1.45 10^3/uL (0.1-0.8); Basophils % 0.3; HCT 24.4 % (40.0-50.0); HGB 7.7 g/dL (13.5-17.5); Immature Grans % 1.3; Lymphocytes % 5.4; MCH 27.8 pg (27.0-33.0); MCHC 31.6 % (32.0-36.0); MCV 88.1 fL (80-95); MPV 8.6 fL (8.0-11.0); Monocytes % 8.3; Neutrophils % 83.7; Nucleated RBC 0 %; Platelet Count 569 10^3/uL (130-400); RBC 2.77 10^6/uL (4.36-5.78)
[2021-06-15 06:54] LABS: ESR 106 mm/hr (0-20)
[2021-06-15 06:57] LABS: Absolute Basophil Count 0.05 10^3/uL (0.0-0.2); Absolute Neutrophil Count 14.65 10^3/uL (1.2-6.7)
[2021-06-15 07:23] LABS: Anion Gap 10.1 mmol/L (3-11); BUN 26 mg/dL (7-18); C-Reactive Protein 13.95 mg/dL (0.0-0.3); CO2 24.9 mmol/L (21.0-32.0); CREATININE 1.7 mg/dL (0.70-1.30); Calcium 8.2 mg/dL (8.5-10.1); Chloride 101 mmol/L (98-107); Estimated GFR 40.28 (mL/min/1.73m2); Glucose 163 mg/dL (74-106); Potassium 3.7 mmol/L (3.5-5.1); Sodium 136 mmol/L (136-145)
[2021-06-15] MEDS: Rosuvastatin 10 MG TAB PO (07:50)
[2021-06-15] MEDS: Cetirizine 10 MG TAB PO (07:50)
[2021-06-15] MEDS: Metoprolol 25 MG TAB 75 MG PO ×2 (07:50→21:06)
[2021-06-15] MEDS: Furosemide 20 MG TAB PO (07:51)
[2021-06-15] MEDS: Sucralfate 1 GM TAB PO ×4 (07:51→21:07)
[2021-06-15] MEDS: Montelukast 10 MG TAB PO (07:51)
[2021-06-15] MEDS: Pantoprazole 40 MG TABCR PO ×2 (07:51→21:07)
[2021-06-15] MEDS: Acetaminophen 325 MG TAB PO ×3 (07:53→23:31)
[2021-06-15] MEDS: Insulin Aspart 300 UNITS/3 ML PEN SC ×6 (08:04→17:41)
[2021-06-15] MEDS: oxyCODONE 5 MG TAB PO ×3 (09:07→23:31)
[2021-06-15] MEDS: Normal Saline 500 ML 30 ML IV (10:29)
--- NOTE | 2021-06-15 11:22 | PT.INTREAT ---
PT Notes Visit Reasons: Knee Joint Infection Inpatient Physical Therapy Treatment Note [facility] Date: 06/15/21 PRECAUTIONS: SUBJECTIVE: Pt has complaints of pain in his leg today and states that he needs more medication for the pain. OBJECTIVE: Supine-sit: CGA to min assistx 1 Sit-stand: SBA GAIT Assistive Device: FWW Weight bearing: Full Assist: CGA Distance: 10ft x 2 THEREX: Pt completed LE strengthening ther ex as per flow sheet. ASSESSMENT: Pt was fatigued today and did not seem to tolerate a lot during his session. Pt is going to try and have his pain under control more tomorrow before PT to see if that is helpful. PLAN: Cont as per PT POC. TREATMENT CODE/TIME: 8:40-9 (20) TA
--- NOTE | 2021-06-15 17:45 | W.PM.PROGNOT ---
Date of Service Date of service: 06/15/21 Time of Service: 17:46 Assessment and Plan Assessment and plan (1) Septic arthritis of knee, left: Status: Acute Assessment and plan: s/p I&D w/ washout of left knee abscess and septic arthritis performed 06/[address] Rice. wound culture and blood cultures grew MSSA. Zosyn and Vancomycin initially used to treat the infection however per my discussion w/I.D. service at [facility] yesterday I changed his ATB to Ancef. If his repeat cultures remain negative then he will need 6 wks of Ancef 2 gm Q8hr from 06/14 i.e. through07/26. (2) Cutaneous abscess of left knee: Status: Acute Assessment and plan: As above. Ortho to decide whether or not patient needs further drainage procedure. Continue to monitor inflammatory markers and daily blood cultures. (3) Acute GI bleeding: Status: Acute Assessment and plan: Drop in hgb from 13.6 on 05/14/21 to 7.7 > 7.2 >7.4 > 7.7 He recently finished a prednisone taper and has been using Aleve BID. Concerning for an upper GI bleed. Melanotic stools that were heme positive in ED. 06/13, stool is heme negative. Status post Transfuse 1 unit RBCs On 06/13/2021 Changed from Protonix IV to oral Protonix 40 mg twice daily add Carafate 1 g before meals and at bedtime. Monitor blood counts. Will transfuse iron (4) Diabetes: Assessment and plan: patient had hypoglycemia yesterday that necessitated adjustment in his CHO coverage. I have adjusted this and his glucose readings are better but running higher. (5) CAD (coronary artery disease): Status: Chronic Assessment and plan: No angina. Does have some CABRERA but likely related to his anemia. Hold ASA and Plavix d/t acute anemia; likely GI bleed. Cont BB and statin. (6) Hypertension: Assessment and plan: On metoprolol. BP have improved. Monitor. (7) Hypercholesterolemia: Assessment and plan: Cont Rosuvastatin. (8) CKD (chronic kidney disease): Status: Chronic Assessment and plan: Creatinine 2.2 > 2.2 > 2.2>2.0>1.7 above baseline of around 1.5, but improved from last admission when it was as high as 3.8. Avoid nephroxins and hypotension. Monitor. (9) DVT prophylaxis: Status: Acute Assessment and plan: Had restarted heparin, but now stopped and Hgb has declined. Getting an RBC transfusion. SCDs; however, the LLE is painful from the knee down to the ankle so may not tolerate. Subjective Subjective Interval history since last seen: Patient reports improvement in his left knee pain but still painful w/ movement. However he tolerated some light ambulation out of the room to the hallway. He is still running fevers of 38.7 but his repeat blood cultures from yesterday showed no growth. He remains on Ancef for MSSA bacteremia and septic left knee. Exam Narrative Exam Narrative: A&Ox3 Lungs: CTA Heart: RRR, soft sytolic mumur at apex Abdomen; benign Left knee is bandaged. no redness in distal leg/foot and edema is improved in the foot. normal pedal pulses Objective Last Vital Signs Temp 38.7 C H 06/15/21 15:38 Pulse 99 H 06/15/21 15:36 Resp 15 06/15/21 15:36 BP 149/71 H 06/15/21 15:36 Pulse Ox 98 06/15/21 15:36 Laboratory Results - last 24 hr 06/15/21 06/15/21 06/15/21 06:15 06:15 06:15 WBC 17.50 H RBC 2.77 L Hgb 7.7 L Hct 24.4 L MCV 88.1 MCH 27.8 MCHC 31.6 L RDW 14.0 Plt Count 569 H MPV 8.6 Immature Gran % 1.3 Neutrophils % 83.7 Lymphocytes % 5.4 Monocytes % 8.3 Eosinophils % 1.0 Basophils % 0.3 Nucleated RBC % 0 Absolute Neutrophils 14.65 H Absolute Lymphocytes 0.95 L Absolute Monocytes 1.45 H Absolute Eosinophils 0.18 Absolute Basophils 0.05 ESR 106 H Sodium 136 Potassium 3.7 Chloride 101 Carbon Dioxide 24.9 Anion Gap 10.1 BUN 26 H Creatinine 1.7 H Estimated GFR/1.73 m2 40.28 Glucose 163 H D Calcium 8.2 L C-Reactive Protein 13.95 H
[2021-06-15] MEDS: Insulin Glargine 300 UNITS/3 ML PEN 40 UNITS SC (21:07)
[2021-06-16] VITALS (7 sets, daily range): BP systolic 100–132; BP diastolic 58–78; PULSE 65–99; RESP 17–20; TEMP 36.5–38.4; O2SAT 92–97
[2021-06-16] MEDS: ceFAZolin 2 GM/50 ML BAG IVPB ×3 (01:31→17:13)
[2021-06-16] MEDS: Normal Saline Flush 10 ML SYR IVP ×3 (01:31→20:41)
[2021-06-16 06:46] LABS: Abs Immature Grans 0.24 10^3/uL (0.0-0.06); Absolute Lymphocyte Count 1.12 10^3/uL (1.2-3.4); Absolute Neutrophil Count 13.67 10^3/uL (1.2-6.7); Basophils % 0.4; HCT 25.1 % (40.0-50.0); HGB 7.7 g/dL (13.5-17.5); Immature Grans % 1.4; Lymphocytes % 6.7; MCH 27.4 pg (27.0-33.0); MCHC 30.7 % (32.0-36.0); MCV 89.3 fL (80-95); MPV 8.3 fL (8.0-11.0); Monocytes % 8.4; Neutrophils % 82.1; Nucleated RBC 0 %; Platelet Count 568 10^3/uL (130-400); RBC 2.81 10^6/uL (4.36-5.78); RDW 14.2 % (11.8-14.1); RDW-SD 45.8 fL; WBC 16.65 10^3/uL (4.4-10.8)
[2021-06-16 06:47] LABS: Absolute Basophil Count 0.07 10^3/uL (0.0-0.2); Absolute Eosinophil Count 0.17 10^3/uL (0.0-0.7)
[2021-06-16 07:02] LABS: Anion Gap 8.7 mmol/L (3-11); BUN 25 mg/dL (7-18); C-Reactive Protein 13.42 mg/dL (0.0-0.3); CO2 26.3 mmol/L (21.0-32.0); CREATININE 1.7 mg/dL (0.70-1.30); Calcium 8.2 mg/dL (8.5-10.1); Chloride 99 mmol/L (98-107); Estimated GFR 40.28 (mL/min/1.73m2); Glucose 234 mg/dL (74-106); Sodium 134 mmol/L (136-145)
[2021-06-16] MEDS: Sucralfate 1 GM TAB PO ×4 (07:49→20:46)
[2021-06-16] MEDS: Pantoprazole 40 MG TABCR PO ×2 (07:49→20:40)
[2021-06-16] MEDS: Polyethylene Glycol 3350 17 GM PACKET PO (08:09)
[2021-06-16] MEDS: Metoprolol 25 MG TAB 75 MG PO ×2 (08:10→20:40)
[2021-06-16] MEDS: Cetirizine 10 MG TAB PO (08:10)
[2021-06-16] MEDS: Rosuvastatin 10 MG TAB PO (08:10)
[2021-06-16] MEDS: Furosemide 20 MG TAB PO (08:10)
[2021-06-16] MEDS: Montelukast 10 MG TAB PO (08:10)
[2021-06-16] MEDS: Insulin Aspart 300 UNITS/3 ML PEN SC ×5 (08:10→17:14)
[2021-06-16] MEDS: Acetaminophen 325 MG TAB PO ×3 (08:53→20:46)
[2021-06-16] MEDS: oxyCODONE 5 MG TAB PO ×3 (08:53→16:17)
--- NOTE | 2021-06-16 10:13 | PGE_ITS ---
Date of Service Date of service: 06/16/21 Time of Service: 10:13 Assessment and Plan Assessment and plan (1) Septic arthritis of knee, left: Status: Acute Assessment and plan: s/p I&D w/ washout of left knee abscess and septic arthritis performed 06/[address] Rice. wound culture and blood cultures grew MSSA. Zosyn and Vancomycin initially used to treat the infection however per my discussion w/I.D. service at [facility] yesterday I changed his ATB to Ancef. If his repeat cultures remain negative then he will need 6 wks of Ancef 2 gm Q8hr from 06/14 i.e. through07/26. Unfortunately is repeat blood cultures from 06/15 are still positive for GPC despite his cultures from 06/14 are negative. I think that he will need DELISA. to rule out/rule in endocarditis (2) Cutaneous abscess of left knee: Status: Acute Assessment and plan: As above. Ortho to decide whether or not patient needs further drainage procedure. Continue to monitor inflammatory markers and daily blood cultures. (3) Acute GI bleeding: Status: Acute Assessment and plan: Drop in hgb from 13.6 on 05/14/21 to 7.7 > 7.2 >7.4 > 7.7 He recently finished a prednisone taper and has been using Aleve BID. Concerning for an upper GI bleed. Melanotic stools that were heme positive in ED. 06/13, stool is heme negative. Status post Transfuse 1 unit RBCs On 06/13/2021 Changed from Protonix IV to oral Protonix 40 mg twice daily add Carafate 1 g before meals and at bedtime. Monitor blood counts. Will transfuse iron (4) Diabetes: Assessment and plan: no further hypoglycemia and in fact glucose levels running higher, I have adjusted his Lantus and added NPH in the morning; still on CHO coverage at 4 units per 10 gm CHO along w/ sliding scale (5) CAD (coronary artery disease): Status: Chronic Assessment and plan: No angina. Does have some CABRERA but likely related to his anemia. Hold ASA and Plavix d/t acute anemia; likely GI bleed. Cont BB and statin. (6) Hypertension: Assessment and plan: On metoprolol. BP have improved. Monitor. (7) Hypercholesterolemia: Assessment and plan: Cont Rosuvastatin. (8) CKD (chronic kidney disease): Status: Chronic Assessment and plan: Creatinine 2.2 > 2.2 > 2.2>2.0>1.7 above baseline of around 1.5, but improved from last admission when it was as high as 3.8. Avoid nephroxins and hypotension. Monitor. (9) DVT prophylaxis: Status: Acute Assessment and plan: restart heparin SC, watch hemoglobin levels Subjective Subjective Interval history since last seen: Patient still having significant knee pain w/ any mobility in or out of bed. He has significant left leg and foot edema. He still gets low grade fevers. Exam Narrative Exam Narrative: Bear is lying in bed in semifowler position he is alert and oriented to person place time circumstance. He is very hard of hearing. Lungs: clear Heart: RRR, w/ systolic murmur over apex, 3/6, no thrill, heave, gallop or rub Abdomen: obese, soft, nontender, left knee still swollen but not reddened, lateral incison wound draining serosanguinous drainage; no foul smell to this; knee is tender to flexion or extenion; left foot and calf are edematous Objective Last Vital Signs Temp 37.9 C H 06/16/21 07:50 Pulse 95 H 06/16/21 07:50 Resp 20 06/16/21 07:50 BP 119/78 06/16/21 07:50 Pulse Ox 96 06/16/21 07:50 Laboratory Results - last 24 hr 06/16/21 06/16/21 06:30 06:30 WBC 16.65 H RBC 2.81 L Hgb 7.7 L Hct 25.1 L MCV 89.3 MCH 27.4 MCHC 30.7 L RDW 14.2 H Plt Count 568 H MPV 8.3 Immature Gran % 1.4 Neutrophils % 82.1 Lymphocytes % 6.7 Monocytes % 8.4 Eosinophils % 1.0 Basophils % 0.4 Nucleated RBC % 0 Absolute Neutrophils 13.67 H Absolute Lymphocytes 1.12 L Absolute Monocytes 1.40 H Absolute Eosinophils 0.17 Absolute Basophils 0.07 Sodium 134 L Potassium 4.0 Chloride 99 Carbon Dioxide 26.3 Anion Gap 8.7 BUN 25 H Creatinine 1.7 H Estimated GFR/1.73 m2 40.28 Glucose 234 H Calcium 8.2 L C-Reactive Protein 13.42 H Point of Care Ultrasound Note: venous compression study of left leg was negative for DVT. Veins visualized included CFV, GSV, DFV, FV, popliteal vein and all were compressible.
[2021-06-16] MEDS: Gabapentin 100 MG CAP PO ×3 (11:04→20:40)
[2021-06-16] MEDS: Insulin NPH-Human 300 UNITS/3 ML PEN 15 UNIT SC (11:28)
--- NOTE | 2021-06-16 12:12 | PT.INTREAT ---
PT Notes Visit Reasons: Knee Joint Infection Inpatient Physical Therapy Treatment Note [facility] Date: 06/16/21 OBJECTIVE: Supine-sit: Min A x 1 Sit-supine: [] Sit-stand: CGA Stand-sit: CGA GAIT Device: FWW WBAT Assist: CGA Distance: approx 10ftx2 THEREX: Pt completed LE strengthening ther ex as per flow sheet and static standing to F. ASSESSMENT: Pt seems to be in a lot of discomfort which seems to make it difficult for him to progress with PT. PLAN: Cont as per PT POC. TREATMENT CODE/TIME: 9:25-9:50 (25) IRMA LEDESMA
[2021-06-16] MEDS: miSOPROStol 100 MCG TAB PO ×2 (14:00→20:40)
[2021-06-16] MEDS: IRON SUCROSE COMPLEX 400 MG in Normal Saline 250 ML 100 MG IVPB (14:00)
[2021-06-16] MEDS: Heparin 5,000 UNITS/ML VIAL 5000 UNITS SC (17:14)
[2021-06-16] MEDS: Docusate Sodium 100 MG/10 ML CUP PO (20:40)
[2021-06-16] MEDS: Senna TAB 1 TAB PO (20:48)
[2021-06-16] MEDS: Insulin Glargine 300 UNITS/3 ML PEN 50 UNITS SC (20:49)
[2021-06-17] VITALS (9 sets, daily range): BP systolic 100–132; BP diastolic 57–74; PULSE 75–96; RESP 18–20; TEMP 36.5–38.3; O2SAT 94–99
[2021-06-17] MEDS: Heparin 5,000 UNITS/ML VIAL 5000 UNITS SC ×3 (00:23→16:55)
[2021-06-17] MEDS: Acetaminophen 325 MG TAB PO ×5 (00:36→22:58)
[2021-06-17] MEDS: ceFAZolin 2 GM/50 ML BAG IVPB ×3 (02:27→18:17)
[2021-06-17 06:47] LABS: Abs Immature Grans 0.24 10^3/uL (0.0-0.06); Absolute Basophil Count 0.08 10^3/uL (0.0-0.2); Absolute Lymphocyte Count 1.32 10^3/uL (1.2-3.4); Absolute Monocyte Count 1.34 10^3/uL (0.1-0.8); Basophils % 0.5; HCT 24.4 % (40.0-50.0); HGB 7.6 g/dL (13.5-17.5); Immature Grans % 1.4; Lymphocytes % 7.9; MCH 27.7 pg (27.0-33.0); MCHC 31.1 % (32.0-36.0); MCV 89.1 fL (80-95); MPV 9.4 fL (8.0-11.0); Neutrophils % 81.2; Nucleated RBC 0 %; Platelet Count 564 10^3/uL (130-400); RBC 2.74 10^6/uL (4.36-5.78); RDW 14.5 % (11.8-14.1); RDW-SD 45.5 fL; WBC 16.76 10^3/uL (4.4-10.8)
[2021-06-17 06:51] LABS: Absolute Eosinophil Count 0.17 10^3/uL (0.0-0.7)
[2021-06-17 06:52] LABS: Absolute Neutrophil Count 13.61 10^3/uL (1.2-6.7)
[2021-06-17 07:02] LABS: Anion Gap 9.6 mmol/L (3-11); BUN 25 mg/dL (7-18); CO2 26.4 mmol/L (21.0-32.0); CREATININE 1.8 mg/dL (0.70-1.30); Calcium 8.2 mg/dL (8.5-10.1); Chloride 99 mmol/L (98-107); Estimated GFR 37.71 (mL/min/1.73m2); Glucose 138 mg/dL (74-106); Potassium 3.7 mmol/L (3.5-5.1); Sodium 135 mmol/L (136-145)
[2021-06-17] MEDS: Pantoprazole 40 MG TABCR PO ×2 (08:23→20:11)
[2021-06-17] MEDS: oxyCODONE 5 MG TAB PO ×3 (08:23→16:58)
[2021-06-17] MEDS: Gabapentin 100 MG CAP PO ×3 (08:23→20:11)
[2021-06-17] MEDS: Sucralfate 1 GM TAB PO ×4 (08:23→22:58)
[2021-06-17] MEDS: Rosuvastatin 10 MG TAB PO (08:32)
[2021-06-17] MEDS: miSOPROStol 100 MCG TAB PO ×4 (08:32→20:11)
[2021-06-17] MEDS: Furosemide 20 MG TAB PO (08:33)
[2021-06-17] MEDS: Metoprolol 25 MG TAB 75 MG PO ×2 (08:33→20:11)
[2021-06-17] MEDS: Cetirizine 10 MG TAB PO (08:33)
[2021-06-17] MEDS: Docusate Sodium 100 MG/10 ML CUP PO ×3 (08:34→20:11)
[2021-06-17] MEDS: Montelukast 10 MG TAB PO (08:34)
[2021-06-17] MEDS: Insulin Aspart 300 UNITS/3 ML PEN SC ×6 (08:37→17:00)
[2021-06-17] MEDS: Insulin NPH-Human 300 UNITS/3 ML PEN 20 UNIT SC (08:40)
[2021-06-17] MEDS: Normal Saline Flush 10 ML SYR IVP ×3 (08:43→20:11)
[2021-06-17] MEDS: Polyethylene Glycol 3350 17 GM PACKET PO (08:43)
--- NOTE | 2021-06-17 09:57 | PT.INTREAT ---
Date of service: 06/17/21 Time of Service: 09:28 PT Notes Visit Reasons: Knee Joint Infection Inpatient Physical Therapy Treatment Note [facility] Date: 06/17/2021 PRECAUTIONS: WBAT L, activity as tolerated SUBJECTIVE: Bear is pleasant and agreeable to participating in PT. He states that he continues to have significant pain in his L knee. He is discouraged because he feels globally weak and states that he has always been very active and strong. OBJECTIVE: PAIN: Patient c/o minimal L knee pain with gait training and ther ex completion BED MOBILITY/TRANSFERS Sit-stand: SBA Stand-sit: SBA GAIT Assistive Device: FWW Weight bearing: WBAT L Assist: SBA Distance: 25' Deviation: C/o weak UE, SOB, increased fatigue, L LE pain is not too bad today THEREX: Patient was instructed in a LE strengthening and stabilization program, completed in a seated position, as per flow sheet. He demonstrates limited ROM in L knee and requires assist with some exercises for proper exercise performance. ASSESSMENT: Patient tolerated session with complaint of minimal L knee pain with ther ex completion and gait training. He tolerated a progression in gait distance with FWW support. PLAN: Continue with gait training and LE strengthening for improved mobility and activity tolerance. TREATMENT CODE/TIME: 21 minutes; 01670 (09:28)
[2021-06-17] MEDS: Normal Saline 500 ML 30 ML IV (10:47)
--- NOTE | 2021-06-17 11:16 | PDOC.CMPRO ---
- If Service Date Differs Date of service: 06/17/21 Time of Service: 11:16 Care Management Progress Note S/O: Bear was sitting up in bed when CM met with him. He stated he was feeling a little better since he had just woken up from a nap. Bear admitted to being a little discouraged as he is not progressing as anticipated. He continues to have fevers and his bacteremia has not cleared yet. Tomorrow he will go back to the OR for another washout of his knee. Per staff, he continues to have purulent drainage from the knee. Bear declined PT this afternoon as he was fatigued and having pain in the knee. He responds well to the pain medication but stated that it does not last long enough. A: Bear is a 70 year old man admitted on 06/10/21 with a knee infection P:Bear will likely be discharged home, possibly with new home health services. A prolonged course of IV antibiotics will likely be required. Bear would prefer to receive the antibiotics at home if at all possible. He will follow up with his PCP and plan of care and transport with family. CM will continue to provide support to Bear and his discharge needs.
--- NOTE | 2021-06-17 12:22 | PGE_ITS ---
Date of Service Date of service: 06/17/21 Time of Service: 12:23 Assessment and Plan Assessment and plan (1) Septic arthritis of knee, left: Status: Acute Assessment and plan: s/p I&D w/ washout of left knee abscess and septic arthritis performed 06/[address] Rice. wound culture and blood cultures grew MSSA. Zosyn and Vancomycin initially used to treat the infection however per my discussion w/I.D. service at [facility] on 06/14 I changed his ATB to Ancef. Despite the wash out procedure and appropriate antibiotics, he continues to have daily fevers and continues to drain pus from the knee wound and continues to have positive blood cultures. I have texted Dr. Rice who is on vacation and he is reaching out to Dr. Josue. I have also called [facility] transfer center to discuss setting the patient up for DELISA to rule out bacterial endocarditis. (2) Cutaneous abscess of left knee: Status: Acute Assessment and plan: As above. (3) Acute GI bleeding: Status: Acute Assessment and plan: Drop in hgb from 13.6 on 05/14/21 to 7.7 > 7.2 >7.4 > 7.7 He recently finished a prednisone taper and has been using Aleve BID. Concerning for an upper GI bleed. Melanotic stools that were heme positive in ED. 06/13, stool is heme negative. Status post Transfuse 1 unit RBCs On 06/13/2021 Changed from Protonix IV to oral Protonix 40 mg twice daily add Carafate 1 g before meals and at bedtime. Monitor blood counts. Will transfuse iron Blood counts remains stable. Hb today is 7.6 gm. he has had two doses of venofer 400 mg each. He is now on cararfate and protonix for GI protection. As he has had no further bleeding since admission, I will resume heparin SC for DVT prophylaxis (4) Diabetes: Assessment and plan: no further hypoglycemia and in fact glucose levels running higher, I have adjusted his Lantus and added NPH in the morning; still on CHO coverage at 4 units per 10 gm CHO along w/ sliding scale. I have adjusted his NPH and his Lantus dosing. (5) CAD (coronary artery disease): Status: Chronic Assessment and plan: No angina. Does have some CABRERA but likely related to his anemia. Hold ASA and Plavix d/t acute anemia; likely GI bleed. Cont BB and statin. (6) Hypertension: Assessment and plan: On metoprolol. BP have improved. Monitor. (7) Hypercholesterolemia: Assessment and plan: Cont Rosuvastatin. (8) CKD (chronic kidney disease): Status: Chronic Assessment and plan: Creatinine 2.2 > 2.2 > 2.2>2.0>1.7 above baseline of around 1.5, but improved from last admission when it was as high as 3.8. Avoid nephroxins and hypotension. Monitor. (9) DVT prophylaxis: Status: Acute Assessment and plan: restart heparin SC, watch hemoglobin levels Subjective Subjective Interval history since last seen: Patient states that his knee is still sore but improving. He walked further today, 25 ft w/ FWW. He gets dyspnea w/ activity. He continues to have nightly fevers w/ Tmax of 38.4 C last night at 19:30. His blood cultures from 06/15 were positive for 2/2 sets for GPC. Left knee still swollen and tender and still draining pus. I explained to the patient that I think that Dr. Rice or Dr. Josue needs to perform another washout of the knee as the patient is still draining pus. I also explained to the patient that I am reaching out to [facility] for T.E.E. to rule out heart valve vegetations or abscess since his blood cultures are still positive. Exam Narrative Exam Narrative: Mr. Gamboa is sitting up in his chair alert and oriented not in any acute distress. He does feel fatigued after having performed physical therapy today. His complaint of his left knee is tender after therapy. His nurse Sascha undressed the wound and remove the iodoform packing and a lot of purulent drainage came out of the wound. The tissue around the wound and around the lateral aspect of the knee is indurated and tender and is swelling extends laterally around the knee to the back of the knee and extends down the proximal portion of the tibia. There is no erythema but there is palpable tenderness and induration. Lungs are clear to auscultation Heart is regular with a soft systolic murmur Abdomen is soft and nontender Objective Last Vital Signs Temp 37.7 C H 06/17/21 11:34 Pulse 75 06/17/21 11:34 Resp 18 06/17/21 11:34 BP 100/57 L 06/17/21 11:34 Pulse Ox 95 06/17/21 11:34 Laboratory Results - last 24 hr 06/17/21 06/17/21 06:00 06:00 WBC 16.76 H RBC 2.74 L Hgb 7.6 L Hct 24.4 L MCV 89.1 MCH 27.7 MCHC 31.1 L RDW 14.5 H Plt Count 564 H MPV 9.4 Immature Gran % 1.4 Neutrophils % 81.2 Lymphocytes % 7.9 Monocytes % 8.0 Eosinophils % 1.0 Basophils % 0.5 Nucleated RBC % 0 Absolute Neutrophils 13.61 H Absolute Lymphocytes 1.32 Absolute Monocytes 1.34 H Absolute Eosinophils 0.17 Absolute Basophils 0.08 Sodium 135 L Potassium 3.7 Chloride 99 Carbon Dioxide 26.4 Anion Gap 9.6 BUN 25 H Creatinine 1.8 H Estimated GFR/1.73 m2 37.71 Glucose 138 H D Calcium 8.2 L
--- NOTE | 2021-06-17 13:32 | PT.INNT ---
PT Notes Visit Reasons: Knee Joint Infection 06/17/2021 Hold afternoon PT session per nursing, as per provider. Plan is for patient to return to OR for washout of L knee. Will resume PT services at that time.
[2021-06-17] MEDS: Senna TAB 1 TAB PO (22:58)
[2021-06-18] VITALS (15 sets, daily range): BP systolic 78–133; BP diastolic 40–74; PULSE 65–100; RESP 12–22; TEMP 36.4–37.9; O2SAT 94–99; BMI 32.7
--- NOTE | 2021-06-18 | DI.RAD_ITS ---
Exam(s) XR KNEE LT 3V AP,LAT,DRAKE EXAM: XR KNEE LT 3V AP,LAT,DRAKE CLINICAL HISTORY: Pain. TECHNIQUE: 2D digital imaging was performed of the left knee. Five images were obtained. AP, AP tu nnel and lateral views were obtained. COMPARISON: CR XR KNEE LT 3V AP,LAT,DRAKE from 06/10/2021 FINDINGS: Patient unable to extend knee fully. BONES: No acute fracture is present. No bony destructive lesion is seen. JOINTS: The knee is normally aligned. Suprapatellar joint effusion is present. Mild degenerative oniel nges are seen in the knee particularly in the medial femoral tibial joint. SOFT TISSUE: There is gas seen in the soft tissues laterally. On the lateral view of the knee the ga s is seen in the suprapatellar region. Atherosclerosis is present. IMPRESSION: 1. No acute fracture or dislocation. 2. Suprapatellar joint effusion. On the lateral view there is a suggestion of gas within the joint f luid. Infection should be considered. 3. Mild degenerative changes of the knee. DATA REPOSITORY: RADIATION DOSE DELIVERED:
[2021-06-18] MEDS: oxyCODONE 5 MG TAB PO ×3 (00:16→18:03)
[2021-06-18] MEDS: Lactated Ringers 1,000 ML 85 ML IV ×2 (00:17→11:21)
[2021-06-18] MEDS: Heparin 5,000 UNITS/ML VIAL 5000 UNITS SC (00:17)
[2021-06-18] MEDS: Insulin Aspart 300 UNITS/3 ML PEN SC ×4 (00:17→18:37)
[2021-06-18] MEDS: ceFAZolin 2 GM/50 ML BAG IVPB ×3 (02:16→18:24)
[2021-06-18 06:20] LABS: ESR 40 mm/hr (0-20)
[2021-06-18 06:21] LABS: Abs Immature Grans 0.28 10^3/uL (0.0-0.06); Absolute Eosinophil Count 0.14 10^3/uL (0.0-0.7); Absolute Monocyte Count 1.31 10^3/uL (0.1-0.8); Absolute Neutrophil Count 14.78 10^3/uL (1.2-6.7); Basophils % 0.4; Eosinophils % 0.8; HCT 23.4 % (40.0-50.0); HGB 7.3 g/dL (13.5-17.5); Immature Grans % 1.6; Lymphocytes % 7.8; MCH 28.1 pg (27.0-33.0); MCHC 31.2 % (32.0-36.0); MPV 8.6 fL (8.0-11.0); Monocytes % 7.3; Neutrophils % 82.1; Nucleated RBC 0 %; Platelet Count 591 10^3/uL (130-400); RDW 14.6 % (11.8-14.1); RDW-SD 46.7 fL
[2021-06-18 06:23] LABS: Absolute Basophil Count 0.07 10^3/uL (0.0-0.2)
[2021-06-18 06:36] LABS: ALT 24 U/L (16-63); AST 42 U/L (15-37); Albumin 1.4 g/dL (3.4-5.0); Alkaline Phosphatase 74 U/L (46-116); Anion Gap 8.9 mmol/L (3-11); BUN 29 mg/dL (7-18); Bilirubin, Total 0.2 mg/dL (0.2-1.0); CO2 26.1 mmol/L (21.0-32.0); CREATININE 1.8 mg/dL (0.70-1.30); Calcium 7.9 mg/dL (8.5-10.1); Chloride 99 mmol/L (98-107); Estimated GFR 37.71 (mL/min/1.73m2); Glucose 162 mg/dL (74-106); Potassium 3.8 mmol/L (3.5-5.1); Sodium 134 mmol/L (136-145); Total Protein 6.5 g/dL (6.4-8.2)
[2021-06-18] MEDS: Metoprolol 25 MG TAB 75 MG PO ×2 (09:00→19:37)
[2021-06-18] MEDS: Gabapentin 100 MG CAP PO ×3 (09:01→19:37)
[2021-06-18] MEDS: Acetaminophen 325 MG TAB PO ×2 (09:29→21:33)
[2021-06-18] MEDS: Normal Saline Flush 10 ML SYR IVP ×6 (09:30→19:37)
--- NOTE | 2021-06-18 10:39 | CMPROGNOTE_ITS ---
- If Service Date Differs Date of service: 06/18/21 Time of Service: 10:39 Care Management Progress Note S/O: Bear was sitting up in bed when CM met with him. The orthopedic PA Nicki was with him and had just done a dressing change. She stated that his left leg wound looked good but that he needed to go to the OR again for wound irrigation and possible debridement of the knee itself. Bear was febrile again last evening and has increasing leukocytosis (18.00 today from 16.76 yesterday). His H&H is also slowly dropping - 7.3 from 7.6. Bear expressed frustration with the timing of the procedure. He understood it was to be done this morning but is not scheduled until 3:30 pm and he has been NPO since midnight. Bear also had a repeat Xray of the left knee this morning. he stated that it was very apinful as they needed to reposition the leg several times. he has requested prn pain med ication. A: Bear is a 70 year old man admitted on 06/10/21 with a knee infection P:Bear will likely be discharged home, possibly with new home health services. A prolonged course of IV antibiotics will likely be required. Bear would prefer to receive the antibiotics at home if at all possible. He will follow up with his PCP and plan of care and transport with family. CM will continue to provide s upport to Bear and his discharge needs.
--- NOTE | 2021-06-18 12:26 | W.PM.PROGNOT ---
Date of Service Date of service: 06/18/21 Time of Service: 12:00 Assessment and Plan Assessment and plan (1) Cutaneous abscess of left knee: Status: Acute (2) Septic arthritis of knee, left: Status: Acute Assessment and plan: Bear is a 70 year old male who is being treated for sepsis from MSSA.? He is postop day #7 status post irrigation debridement of the left leg abscess and and arthroscopic washout for the left knee septic arthritis.? Continues to run a low grade fever ~100 degrees Fahrenheit. WBC has been trending up from 06/16 16.65-18.00 today Blood cultures continue to show no growth from 06/16/2021 - new cultures pending results. ESR today 40 which is a decrease from 06/15 when it was 106 CRP continues to trend down from 20.96 to 13.10 today. Finger stick glucose remains high Proximal lateral lower leg surgical wound to remain open with daily dressing and packing changes, should continue to decrease the amount of packing - does not show signs of reaccumulation of purulent material or new infection. Continue to keep covered and keep brandon wrap from distal extremity extending proximally for edema management. Due to continued fevers, rising WBC and significant right knee discomfort Dr Josue ordered left knee xray imaging which reveals suprapatellar joint effusion with density and gas. Suggest a repeat arthroscopic knee washout for continued septic knee arthritis. Will continue abx coverage per medicine. Will be scheduled for the OR today. Gross purulence and necrotic tissue encountered in the knee joint as well as deep in the anterior lateral leg beneath the muscle fascia of the prior abscess site. There is also skin breakdown popliteal posterior knee area from pressure or prior knee dressings. New culture sample sent. Vancomycin and Tobramycin antibiotic beads distributed in the knee joint, deep to the muscle fascia, and throughout the anterior lateral abscess site. Knee x-ray ordered for tomorrow. Repeat WBC, ESR, and CRP ordered for a.m. Follow cultures. Continue IV antibiotics. Continue to monitor patient medically. Dressing changes ordered starting tomorrow: Remove Brandon wrap, soft roll, ABD, and 4 x 4's. Pull iodoform packing back about 1 inch each day. Cover all incisions with dry 4 x 4 gauze, ABD to laterally, and wrap knee to prevent further skin problems with soft roll/labral and gently cover with Brandon bandage. Should patient fail to improve after this additional surgery, would consider vascular work-up to assess healing potential and advanced imaging (CT scan with contrast or MRI) of the left thigh, knee, and leg for any additional sites of deep infection. Subjective Subjective Patient reports: other (feeling worse than when he first presented to the hospital) Exam Narrative Exam Narrative: Patient laying supine comfortably in bed with HOB elevation greater than 30 degrees Left lower extremity resting in external rotation at the hip with knee resting on pillow in 80 degrees of flexion 3 arthroscopic portals with nylon sutures in place - no drainage or purulent drainage from portals, there is a large joint effusion Palpation of the knee is mildly tender Passive ROM of the knee is exquisitely tender and unable to extend or flex from 80 degrees of flexion due to significant discomfort With the hip in neutral the knee continues to remain in 80 degrees of flexion and motion continues to be limited due to pain. A dressing saturated in yellow/clear serous fluid was removed and proximal lateral lower leg open wound from previous abscess appears healthy without purulent drainage, erythema or foul smell. Packing was not removed, no active drainage or expressible fluid. Distally there is 2-3+ pitting edema about the foot SILT and brisk distal cappilary refill Demonstrates active ROM at the ankle and can move toes without much discomfort. Objective Last Vital Signs Temp 99.7 F H 06/18/21 11:53 Pulse 83 06/18/21 11:53 Resp 14 06/18/21 11:53 BP 103/61 06/18/21 11:53 Pulse Ox 94 06/18/21 11:53 Laboratory Results - last 24 hr 06/18/21 06/18/21 06/18/21 06:01 06:01 06:01 WBC 18.00 H RBC 2.60 L Hgb 7.3 L Hct 23.4 L MCV 90.0 MCH 28.1 MCHC 31.2 L RDW 14.6 H Plt Count 591 H MPV 8.6 Immature Gran % 1.6 Neutrophils % 82.1 Lymphocytes % 7.8 Monocytes % 7.3 Eosinophils % 0.8 Basophils % 0.4 Nucleated RBC % 0 Absolute Neutrophils 14.78 H Absolute Lymphocytes 1.40 Absolute Monocytes 1.31 H Absolute Eosinophils 0.14 Absolute Basophils 0.07 ESR 40 H Sodium 134 L Potassium 3.8 Chloride 99 Carbon Dioxide 26.1 Anion Gap 8.9 BUN 29 H Creatinine 1.8 H Estimated GFR/1.73 m2 37.71 Glucose 162 H Calcium 7.9 L Total Bilirubin 0.2 AST 42 H ALT 24 Alkaline Phosphatase 74 C-Reactive Protein 13.10 H Total Protein 6.5 Albumin 1.4 L
--- NOTE | 2021-06-18 13:09 | W.ANESPRE ---
General Info Date of Service Date Performed: 06/18/21 Height: 6 ft 1 in Weight: 112.6 kg Body Mass Index (BMI): 32.7 Surgical Procedure: Operation Date: 06/11/21 17:55 Proposed Procedure Side Surgeon p Knee Arthroscopy w/Washout Left Alex Rice MD s I&D of LT Leg Alex Rice MD Actual Procedure Side Surgeon p Knee Arthroscopy w/Washout Left Alex Rice MD s I&D of LT Leg Alex Rice MD Pre-Op Diagnosis Post-Op Diagnosis Left leg abcess and left knee septic arthritis Left leg abcess and left knee septic arthritis Operation Date: 06/18/21 15:40 Proposed Procedure Side Surgeon p Knee Arthroscopy Irrigation and Debridement Left Aguilar Josue MD Meds Allergies and Home Medications Allergies Allergy/AdvReac Type Severity Reaction Status Date / Time lisinopril Allergy Severe Anaphylaxis Unverified 06/10/21 10:26 varenicline tartrate Allergy Unknown Unverified 06/10/21 10:26 [From Chantix] hornet Allergy facial/throat Uncoded 06/10/21 10:26 swelling Home Medication Medication Instructions Recorded Nitrostat 0.4 mg sublingual tablet 0.4 mg SUBLINGUAL PRN PRN NS 03/01/13 (nitroglycerin) Viagra 50 mg tablet (sildenafil) 50 mg PO DAILY PRN tab-cap NS 03/01/13 aspirin 325 mg tablet 325 mg PO DAILY tab-cap NS 03/01/13 epinephrine 0.3 mg/0.3 mL 0.3 mg IM PRN PRN NS 03/01/13 injection, auto-injector furosemide 20 mg tablet (Lasix) 20 mg PO QAM 09/07/18 insulin glargine 100 unit/mL (3 22 unit SUBCUT QPM 04/27/20 mL) subcutaneous pen (Lantus Solostar U-100 Insulin) montelukast 10 mg tablet 10 mg PO DAILY #30 tab 05/17/21 rosuvastatin 10 mg tablet 10 mg PO DAILY #30 tab 05/17/21 celecoxib 100 mg capsule 100 mg PO BID PRN 06/10/21 cetirizine 10 mg tablet 10 mg PO DAILY PRN 06/10/21 clopidogrel 75 mg tablet 75 mg PO DAILY 06/10/21 insulin aspart U-100 100 unit/mL 15 - 17 unit SUBCUT DIRECTED 06/10/21 (3 mL) subcutaneous pen (Novolog Flexpen U-100 Insulin aspart) levothyroxine 25 mcg tablet 25 mcg PO DAILY 06/10/21 magnesium oxide 400 mg PO BID 06/10/21 metoprolol tartrate 75 mg tablet 75 mg PO BID 06/10/21 lisinopril 2.5 mg tablet 2.5 mg PO DAILY 06/13/21 Current Visit Medications: Current Medications Generic Name Dose Route Start Last Admin Trade Name Freq PRN Reason Stop Dose Admin Acetaminophen 0 mg 06/10/21 13:11 06/18/21 09:29 Acetaminophen 325 Mg Tab PO 650 mg Q4H PRN PRN Administration Bisacodyl 10 mg 06/16/21 17:06 Bisacodyl 10 Mg Supp LA DAILY PRN PRN Cetirizine HCl 10 mg 06/11/21 08:30 06/18/21 09:41 Cetirizine 10 Mg Tab PO Not Given DAILY SAI Dextrose 0 gm 06/12/21 16:49 Glucose 40% Oral Solution 15 Gm/37.5 Gm Tube PO DIRECTED PRN Dextrose/Water 0 gm 06/12/21 16:49 Dextrose 50%-Water 25 Gm/50 Ml Syr IVP DIRECTED PRN Dimethicone/Zinc Oxide 0 gm 06/10/21 13:11 Medardo Protect Cream 142 Gm Tube TP PRN PRN Docusate Sodium 100 mg 06/18/21 14:00 Docusate Sodium 100 Mg Cap PO TID SAI Furosemide 20 mg 06/11/21 08:30 06/18/21 09:41 Furosemide 20 Mg Tab PO Not Given QAM SAI Gabapentin 100 mg 06/16/21 14:00 06/18/21 09:01 Gabapentin 100 Mg Cap PO 100 mg TID SAI Administration Heparin Sodium (Porcine) 5,000 units 06/12/21 08:30 06/18/21 10:49 Heparin 5,000 Units/Ml Vial SC Not Given Q8H SAI Sodium Chloride 500 mls @ 0 mls/hr 06/12/21 10:40 06/18/21 03:30 Saline 500ml Bag IV Infused PRN PRN Infusion As Directed Cefazolin Sodium/Dextrose 2 gm in 50 mls @ 100 mls/hr 06/14/21 10:00 06/18/21 12:31 Ancef Duplex IVPB Infused Q8H [facility] Infusion Ringer's Solution 1,000 mls @ 85 mls/hr 06/18/21 00:00 06/18/21 11:21 IV 85 mls/hr INFUSION [facility] Administration Insulin Aspart 0 units 06/12/21 17:00 06/17/21 16:59 Insulin Aspart 300 Units/3 Ml Pen SC 3 units 0800,1200,1700 [facility] Administration Protocol Insulin Aspart 0 units 06/14/21 12:00 06/17/21 17:00 Insulin Aspart 300 Units/3 Ml Pen SC 24 units 0800,1200,1700 [facility] Administration Insulin Aspart 0 units 06/18/21 00:00 06/18/21 12:28 Insulin Aspart 300 Units/3 Ml Pen SC 3 unit Q6H [facility] Administration Protocol Insulin Glargine 55 units 06/17/21 22:00 Insulin Glargine 300 Units/3 Ml Pen SC [facility] Insulin Human NPH 25 unit 06/18/21 08:30 Insulin Nph-Human 300 Units/3 Ml Pen SC DAILY [facility] Metoprolol Tartrate 75 mg 06/10/21 20:00 06/18/21 09:00 Metoprolol 25 Mg Tab PO 75 mg BID [facility] Administration Misoprostol 100 mcg 06/16/21 12:00 06/18/21 12:32 Misoprostol 100 Mcg Tab PO Not Given QID [facility] Montelukast Sodium 10 mg 06/11/21 08:30 06/18/21 09:43 Montelukast 10 Mg Tab PO Not Given DAILY [facility] Oxycodone HCl 5 - 10 mg 06/16/21 10:38 06/18/21 09:29 Oxycodone 5 Mg Tab PO 5 mg Q4H PRN PRN Administration Pantoprazole Sodium 40 mg 06/14/21 20:00 06/18/21 09:43 Pantoprazole 40 Mg Tabcr PO Not Given BID@0730,2000 [facility] Polyethylene Glycol 17 gm 06/10/21 15:00 06/18/21 09:43 Polyethylene Glycol 3350 17 Gm Packet PO Not Given DAILY [facility] Rosuvastatin Calcium 10 mg 06/11/21 08:30 06/18/21 09:43 Rosuvastatin 10 Mg Tab PO Not Given DAILY [facility] Sennosides 1 tab 06/11/21 08:44 06/12/21 09:22 Senna Tab PO 1 tab BID PRN PRN Administration Sennosides 1 tab 06/16/21 22:00 06/17/21 22:58 Senna Tab PO 1 tab HS SAI Administration Sodium Chloride 0 ml 06/11/21 09:13 06/18/21 11:22 Normal Saline Flush 10 Ml Syr IVP 10 ml PRN PRN Administration Sodium Chloride 0 ml 06/12/21 20:00 06/18/21 09:30 Normal Saline Flush 10 Ml Syr IVP 10 ml BID SAI Administration Sucralfate 1 gm 06/14/21 11:30 06/18/21 12:33 Sucralfate 1 Gm Tab PO Not Given AC & HS SAI PFSH Active Problems Active Problems: Problem Status Onset Code Cutaneous abscess of left knee L02.416 Septic arthritis of knee, left M00.9 DVT prophylaxis Z29.9 CKD (chronic kidney disease) N18.9 Acute anemia D64.9 Septic arthritis M00.9 Acute GI bleeding K92.2 CAD (coronary artery disease) I25.10 Acute kidney injury superimposed on CKD N17.9, N18.9 Closed left clavicular fracture 09/07/18 S42.002A Medical History Medical History Diabetes Heart attack Hypercholesterolemia Hypertension Lip swelling Tobacco Smoking/Tobacco Use Status: Former Tobacco Use Alcohol Alcohol Intake: current Alcohol intake frequency: 3 or more drinks per day Alcohol type: beer Substance Use Substance use type: does not use Vital Signs and Lab Results Vital Signs Most Recent Vital Signs in EMR: Most Recent Vital Signs Temp Pulse Resp BP Pulse Ox 37.6 C H 83 14 103/61 94 06/18/21 11:53 06/18/21 11:53 06/18/21 11:53 06/18/21 11:53 06/18/21 11:53 Point of Care Results Point of Care Results: Finger Stick Blood Glucose 225 06/18/21 12:28 Lab Results Result Diagrams: 06/18/21 06:01 06/18/21 06:01 Blood Type / Crossmatch: Patient ABO/Rh A Positive 06/10/21 Antibody Screen NEGATIVE 06/10/21 Crossmatch See Detail 06/10/21 Complete Blood Count: White Blood Count 18.00 10^3/uL (4.4-10.8) H 06/18/21 06:01 06/18/21 Red Blood Count 2.60 10^6/uL (4.36-5.78) L 06/18/21 06:01 06/18/21 Hemoglobin 7.3 g/dL (13.5-17.5) L 06/18/21 06:01 06/18/21 Hematocrit 23.4 % (40.0-50.0) L 06/18/21 06:01 06/18/21 Platelet Count 591 10^3/uL (130-400) H 06/18/21 06:01 06/18/21 Venous Blood Lactate 1.7 mmol/L (0.6-1.4) H 06/10/21 17:15 06/10/21 Complete Metabolic Panel: Sodium Level 134 mmol/L (136-145) L 06/18/21 06:01 06/18/21 Potassium Level 3.8 mmol/L (3.5-5.1) 06/18/21 06:01 06/18/21 Chloride Level 99 mmol/L (98-107) 06/18/21 06:01 06/18/21 Carbon Dioxide Level 26.1 mmol/L (21.0-32.0) 06/18/21 06:01 06/18/21 Blood Urea Nitrogen 29 mg/dL (7-18) H 06/18/21 06:01 06/18/21 Creatinine 1.8 mg/dL (0.70-1.30) H 06/18/21 06:01 06/18/21 Estimated GFR/1.73 m2 37.71 (mL/min/1.73m2) 06/18/21 06:01 06/18/21 Magnesium Level 2.4 mg/dL (1.8-2.4) 06/03/21 09:30 06/03/21 Calcium Level 7.9 mg/dL (8.5-10.1) L 06/18/21 06:01 06/18/21 Albumin 1.4 g/dL (3.4-5.0) L 06/18/21 06:01 06/18/21 Glucose Level 162 mg/dL (74-106) H 06/18/21 06:01 06/18/21 Hemoglobin A1c 9.6 % (<5.7) H 06/10/21 10:25 06/10/21 C-Reactive Protein 13.10 mg/dL (0.0-0.3) H 06/18/21 06:01 06/18/21 Liver Function Panel: Alanine Aminotransferase (ALT/SGPT) 24 U/L (16-63) 06/18/21 06:01 06/18/21 Aspartate Amino Transf (AST/SGOT) 42 U/L (15-37) H 06/18/21 06:01 06/18/21 Coagulation Panel: No Data to Display Cardiac Panel: No Data to Display Arterial Blood Gas: No Data to Display Venous Blood Gas: Venous Blood pH 7.45 (7.31-7.41) H 06/10/21 10:25 06/10/21 Venous Blood Partial Pressure O2 26 mmHg 06/10/21 10:25 06/10/21 Venous Blood Partial Pressure CO2 38 mmHg (41-51) L 06/10/21 10:25 06/10/21 Venous Blood Oxygen Saturation 45 % 06/10/21 10:25 06/10/21 Venous Blood HCO3 27 mmol/L (23-28) 06/10/21 10:25 06/10/21 Venous Blood Base Excess 3 mmol/L (-2-3) 06/10/21 10:25 06/10/21 Venous Blood Total Carbon Dioxide 25 mmol/L (24-29) 06/10/21 10:25 06/10/21 Pancreas Panel: No Data to Display Thyroid Panel: No Data to Display Infectious Disease: Coronavirus (COVID-19)(PCR) Negative (Negative) 06/10/21 13:28 06/10/21 Coronavirus 2019 Source Nasal/Nares 06/10/21 13:28 06/10/21 Blood Cultures: No Data to Display Toxicology Panel: No Data to Display Imaging and Studies Imaging and Studies Study information below may be from another EMR and interpreted by another provider. Please see original notes in EMR for more complete details. Echocardiogram Summary: 2019: LVEF 66%, grade 1 diastolic dysfunction, moderate AV sclerosis without stenosis, mildly dilated ascending thoracic aiota 3.8 cm. Anesthesia Assessment and Plan Anesthesia History Personal History: No History of Anesthesia Complications Family History: No Family History of Anesthesia Complications Exercise Tolerance Exercise Tolerance: Unknown Cardiac & Pulmonary Exam Cardiac Exam: Normal S1/S2 Heart Sounds Pulmonary Exam: Clear Bilateral Breath Sounds Implantable Cardiac Device Does patient have a Pacemaker or an ICD?: No Airway Exam Known Difficult Airway: No Mallampati Class: 4 Mouth Opening: Normal (> 3cm) Thyromental Distance: Less than 3 cm Neck Range of Motion: Full ROM Neck Circumference: Normal Teeth Condition: Generalized Poor Dentition Airway Comments: 3 teeth, denies loose. ASA Classification ASA Score: ASA 3 Emergency Case?: Yes NPO Status NPO Status: NPO Clears >2 hours, Solids >8 hours Anesthesia Plan Resuscitation Status: Full Code Anesthesia Technique: General Anesthesia Airway Planned: Endotracheal Tube Monitors Used: Standard Monitors Preoperative Comments:: 70 yo male who presented to the ED on 06/10/21 with increasing knee pain and found to have likely septic arthritis of the knee. He is currently admitted, was washed out on 06/14/21, returns to OR for repeat washout. Sig PMHx: CKDIV, CAD (metoprolol, stents 2008, CABG 2018 for LAD/LCX/RCA dz), DMII (poorly controlled), HTN, former smoker, daily EtOH, Hypothyroid (on replacement). Denies nitro use, unable to accurately describe his functional capacity. Previous Anes: Masked with OPA, VL grade 1. ta 2 grade 2b.
--- NOTE | 2021-06-18 13:59 | PT.INNT ---
Date of service: 06/18/21 Time of Service: 13:59 PT Notes Visit Reasons: Knee Joint Infection 06/18/2021 Patient has not yet been to OR for washout procedure of L knee. Hold, per provider. Will attempt to resume PT services tomorrow if cleared by provider.
[2021-06-18] MEDS: Lactated Ringers 1,000 ML 30 ML IV (15:25)
[2021-06-18] MEDS: Bupivacaine 0.25% Pres-Free 30 ML VIAL (16:23)
--- NOTE | 2021-06-18 16:47 | PGE_ITS ---
Date of Service Date of service: 06/18/21 Time of Service: 16:47 Assessment and Plan Assessment and plan (1) Septic arthritis of knee, left: Status: Acute Assessment and plan: s/p Left knee arthroscopic irrigation and debridement, CPT #[id number] Left knee extensive synovectomy, CPT #[id number]: Patellofemoral, intercondylar, anteromedial, and anterolateral Left knee partial medial and partial lateral meniscectomy, CPT #[id number] Left leg irrigation and debridement: Skin, subcutaneous tissue, fascia, and muscle Manual preparation and insertion of drug delivery device, intra-articular, CPT #[id number]: Stimulan calcium sulfate antibiotic?impregnated beads Patient remains on Ancef 2 gm IV Q8hr. patient needs arterial vascular studies. I will discuss w/ Dr. Michelle to follow up / [facility] to arrange while he is here. (2) Cutaneous abscess of left knee: Status: Acute (3) MSSA bacteremia: Status: Acute Assessment and plan: repeat blood cultures from 06/17 and 06/16 showed no growth, although the one from 06/15 was positive. He is currently on Ancef 2 gm IV q8h. His TTE did not show any vegetations. I have been in contact / [facility] transfer center to discuss w/ cardiology about doing a DELISA, however, given that his joint and soft tissue in fection has not been controlled so hopefully w/ good source control he should clear. He may not need DELISA if his blood cultures remain no growth and we have good source control. (4) Acute anemia: Status: Acute Assessment and plan: if repeat hemogram this evening shows his blood count is still as low as this a.m. then will transfuse him to Hb over 8 gm (5) Acute kidney injury superimposed on CKD: Status: Acute (6) Acute GI bleeding: Status: Resolved Assessment and plan: patient had presented on admission w/ melena heme positive stools. However repeat testing since admission was negative. His blood count has drifted down from 8.1 gm post transfusion to current level of 7.3 gm. we are repeating his count tonight and if he is lower he will get transfusion. Dr. Josue indicated that he was oozing blood when he had his debridement. I have him on carafate and protonix and cytotec for GI protection. (7) DVT prophylaxis: Status: Acute Assessment and plan: I have him back on heparin SC for dvt protection as he is high risk for DVT. I did a POCUS venous compression study of his left leg couple days ago which was negative for DVT. Subjective Subjective Interval history since last seen: Patient underwent left knee arthroscopic irrigation and debridement and had extensive synovectomy involving the patellofemoral intercondylar anteromedial and anterolateral compartments and underwent a partial medial and partial lateral meniscectomy and also underwent debridement and irrigation of his left leg involving subcutaneous tissue fascia and muscle in the peroneal muscle fascia. He then had antibiotic beads distributed deep to the muscle fascia and superficial in the previous anterolateral abscess site as well as within the suprapatellar pouch. This involved vancomycin and tobramycin antibiotic beads. I discussed the case with Dr. Josue who performed his surgery today. Dr. Josue is concerned about the vascular supply to the leg and would like the patient to have arterial vascular studies. I told him that I would reach out to [facility] and see if we can arrange this as an inpatient at [facility]. Blood cultures from 06/16/2021 and 06/17/2021 are now coming back no growth. Prior to that he was grown MSSA in his previous blood cultures from 06/13/2021 and 06/15/2021. Exam Narrative Exam Narrative: Bear returned from PACU alert. He understands that the findings on his surgery were very concerning. I explained to him that we would reach out to [facility] to try to get arterial studies to evaluate his circulation to his leg. Lungs: clear Heart: RRR Abdomen: soft, nondistended, nontender Legs: left leg is dressed in CHAO wrap. left foot is edematous but he has palpable pulses in his left foot although they are weak pulses. Objective Last Vital Signs Temp 36.4 C L 06/18/21 14:25 Pulse 82 06/18/21 14:25 Resp 12 06/18/21 14:25 BP 110/71 06/18/21 14:25 Pulse Ox 97 06/18/21 14:25 Laboratory Results - last 24 hr 06/18/21 06/18/21 06/18/21 06:01 06:01 06:01 WBC 18.00 H RBC 2.60 L Hgb 7.3 L Hct 23.4 L MCV 90.0 MCH 28.1 MCHC 31.2 L RDW 14.6 H Plt Count 591 H MPV 8.6 Immature Gran % 1.6 Neutrophils % 82.1 Lymphocytes % 7.8 Monocytes % 7.3 Eosinophils % 0.8 Basophils % 0.4 Nucleated RBC % 0 Absolute Neutrophils 14.78 H Absolute Lymphocytes 1.40 Absolute Monocytes 1.31 H Absolute Eosinophils 0.14 Absolute Basophils 0.07 ESR 40 H Sodium 134 L Potassium 3.8 Chloride 99 Carbon Dioxide 26.1 Anion Gap 8.9 BUN 29 H Creatinine 1.8 H Estimated GFR/1.73 m2 37.71 Glucose 162 H Calcium 7.9 L Total Bilirubin 0.2 AST 42 H ALT 24 Alkaline Phosphatase 74 C-Reactive Protein 13.10 H Total Protein 6.5 Albumin 1.4 L
[2021-06-18] MEDS: fentaNYL 100 MCG/2 ML VIAL IVP (17:12)
--- NOTE | 2021-06-18 17:20 | ROE_ITS ---
Date of service: 06/18/21 Time of Service: 16:00 Operative Note Operative Note DATE OF PROCEDURE: 06/18/21 PRE-OP DIAGNOSIS: Left knee septic arthritis Left anterolateral leg abscess POST-OP DIAGNOSIS: same PROCEDURE: Left knee arthroscopic irrigation and debridement, CPT #[id number] Left knee extensive synovectomy, CPT #[id number]: Patellofemoral, intercondylar, anteromedial, and anterolateral Left knee partial medial and partial lateral meniscectomy, CPT #[id number] Left leg irrigation and debridement: Skin, subcutaneous tissue, fascia, and muscle Manual preparation and insertion of drug delivery device, intra-articular, CPT #75515: Stimulan calcium sulfate antibiotic?impregnated beads SURGEON: Aguilar Josue DIRECTIONAL BORE OPERATOR: None None Refer to Anesthesia Record ESTIMATED BLOOD LOSS: 20 PATHOLOGY: other (Left knee joint cultures x2) TOURNIQUET TIME: 0 Patient was transported to: PACU Patient's condition: stable Indications: Please see complete medical record for details. Procedure Description: In the operating room, genral anesthesia was induced. The patient was positioned supine on the operating room table. All bony prominences were well- padded. Preoperative antibiotics were held pending cultures and the patient is on scheduled antibiotics. The knee was prepped and draped in the usual sterile fashion with prior nylon sutures removed. The correct patient, procedure, and side of the procedure were all verified prior to incision. The anterior lateral leg abscess was reopened and there was no reaccumulation here or obvious infection and the skin subcutaneous tissue and muscle fascia was lightly irrigated debridement. Tension was then turned to the knee joint Prior anterolateral anteromedial and superior lateral arthroscopy portals were opened with gross purulence and necrotic material exiting the wound. 2 sets of aerobic anaerobic cultures were obtained. The arthroscope was inserted in the anterolateral portal and in a systematic fashion starting the suprapatellar pouch significant amounts of necrotic material, synovitis, and purulence was debrided. Care was taken to alternate viewing and working through the anteromedial, anterolateral, and superior lateral portals to complete irrigation and debridement of the suprapatellar pouch, medial lateral gutters, intercondylar area, and medial lateral compartment. There was significant pathologic synovitis and necrotic synovium and cartilage that was debrided as well. The synovium was resected to a more viable level throughout the suprapatellar pouch, medial lateral gutters, intercondylar area anterior medial anterior laterally. The medial lateral menisci had abnormal fraying and exhibited fibrinous necrotic tissue as well which was debrided to a stable margin medially and laterally using the mechanical shaver Throughout this process the knee had been copiously irrigated with 9 L of normal saline. An additional 3 L for total of 12 L was now irrigated with clear effluent free of free, necrotic material or purulence exiting the superior lateral portal, which had been enlarged slightly. The knee was then drained of arthroscopic fluid. The superior lateral portal was held open and stimulan calcium sulfate antibiotic beads, which had been prepared on the back table mixed with 1 g vancomycin powder and 240 mg liquid tobramycin were distributed through this arthrotomy into the suprapatellar pouch and digitally spread throughout the suprapatellar area, anterior knee distally, and medial lateral gutters. About three quarters of the antibiotic beads are distributed in the knee. With pressure on the knee there was purulence expressed deeply in the anterior lateral abscess site. It appeared to be exiting through a rent in the peroneal muscle fascia. A snap was used to spread this small defect and copious purulence was encountered with necrotic muscle beneath. The muscle fascial defect was extended proximally and distally as necessary. Blunt dissection was used to scoop out necrotic tissue and purulence. An additional 3 L of normal saline was then irrigated in this surprise additional deep space infection as well as probe manually digitally and with pressure for any additional communication or sites of infection, which were not found. The remainder of the antibiotic beads were then distributed deep to the muscle fascia here and superficial in the prior abscess site. 30 cc of a mixture of lidocaine and bupivacaine containing epinephrine was infiltrated about the surgical sites for postoperative analgesia. The anterior portals were closed in 3-0 Monocryl in a buried in fashion. The superior lateral portal was closed with 2-0 Monocryl and 3-0 nylon. The anterolateral leg abscess site was closed with 2-0 Monocryl and 3-0 nylon leaving about an inch open at the distal aspect with iodoform packing placed deeply in the wound. The incision was covered with Xeroform, 4 4 gauze, ABD, sterile soft roll, and gently wrapped in Brandon bandage. No Kerlix was applied given the posterior knee skin breakdown potentially from prior bandages. The patient awoke from anesthesia without complication and was transferred to the recovery room in a stable condition.
--- NOTE | 2021-06-18 17:34 | W.ANESPOSTOP ---
Postoperative Evaluation Date, Time and Location Date Performed: 06/18/21 Time Performed: 17:35 Patient Location: PACU Vital Signs Most Recent Imported Vital Signs: Most Recent Vital Signs Temp Pulse Resp BP Pulse Ox 36.8 C 87 22 116/54 L 95 06/18/21 17:20 06/18/21 17:20 06/18/21 17:20 06/18/21 17:20 06/18/21 17:20 Most Recent Vital Signs Temp Pulse Resp BP Pulse Ox 36.5 C 87 14 104/52 L 95 06/11/21 08:00 06/11/21 12:30 06/11/21 12:30 06/11/21 12:30 06/11/21 12:30 Pain Score Most Recent Pain Score: Most Recent Pain Score Pain Level [Left Knee] 2 06/13/21 17:24 Pain Level 6 06/18/21 17:20 Assessment Mental Status: Awake (Alert & Oriented to Patient Baseline) Airway and Respiratory Function: Patent airway with normal (patient baseline) respiratory exam Cardiovascular Function: Hemodynamically Stable Hydration Status: Adequately Hydrated Nausea & Vomiting: No Nausea or Vomiting Pain: Pain is Moderate or Severe Postoperative Pain Management: Pain being addressed with medication Peripheral Nerve Block: Patient did not receive a nerve block
[2021-06-18] MEDS: miSOPROStol 100 MCG TAB PO (19:36)
[2021-06-18] MEDS: Pantoprazole 40 MG TABCR PO (19:37)
[2021-06-18] MEDS: Docusate Sodium 100 MG CAP PO (19:37)
[2021-06-18 20:32] LABS: HGB 7.6 g/dL (13.5-17.5)
[2021-06-18] MEDS: Sucralfate 1 GM TAB PO (21:33)
[2021-06-18] MEDS: Senna TAB 1 TAB PO (21:33)
[2021-06-19] VITALS (8 sets, daily range): BP systolic 104–119; BP diastolic 62–69; PULSE 75–95; RESP 14–18; TEMP 37–38.8; O2SAT 92–95
[2021-06-19] MEDS: Heparin 5,000 UNITS/ML VIAL 5000 UNITS SC ×3 (00:19→16:37)
[2021-06-19] MEDS: Insulin Aspart 300 UNITS/3 ML PEN SC ×4 (00:20→17:08)
[2021-06-19] MEDS: Acetaminophen 325 MG TAB PO ×4 (01:40→20:36)
[2021-06-19] MEDS: Lactated Ringers 1,000 ML 85 ML IV ×2 (01:41→16:40)
[2021-06-19] MEDS: ceFAZolin 2 GM/50 ML BAG IVPB ×3 (01:41→17:54)
[2021-06-19 07:40] LABS: Anion Gap 8.6 mmol/L (3-11); BUN 22 mg/dL (7-18); CO2 26.4 mmol/L (21.0-32.0); CREATININE 1.7 mg/dL (0.70-1.30); Calcium 8.3 mg/dL (8.5-10.1); Chloride 98 mmol/L (98-107); Estimated GFR 40.28 (mL/min/1.73m2); Glucose 197 mg/dL (74-106); Potassium 4.2 mmol/L (3.5-5.1); Sodium 133 mmol/L (136-145)
--- NOTE | 2021-06-19 08:30 | DI.RAD_ITS ---
Exam(s) XR KNEE LT 2V AP,LAT EXAM: XR KNEE LT 2V AP,LAT CLINICAL HISTORY: postop. TECHNIQUE: 2D digital imaging was performed. COMPARISON: CR XR KNEE LT 3V AP,LAT,DRAKE from 06/18/2021 FINDINGS: 3 views There are now multiple small densities in the suprapatellar region as well as lateral and inferior to the knee, most probably placed for therapeutic purposes Significant degenerative changes in the medial compartment again noted. No obvious radiographic evid ence of osteomyelitis. IMPRESSION: DATA REPOSITORY: RADIATION DOSE DELIVERED:
[2021-06-19] MEDS: oxyCODONE 5 MG TAB PO ×2 (09:33→13:30)
[2021-06-19] MEDS: Cetirizine 10 MG TAB PO (09:34)
[2021-06-19] MEDS: Furosemide 20 MG TAB PO (09:34)
[2021-06-19] MEDS: Gabapentin 100 MG CAP PO ×3 (09:34→20:36)
[2021-06-19] MEDS: Docusate Sodium 100 MG CAP PO ×3 (09:34→20:36)
[2021-06-19] MEDS: Metoprolol 25 MG TAB 75 MG PO ×2 (09:35→20:36)
[2021-06-19] MEDS: miSOPROStol 100 MCG TAB PO ×4 (09:35→20:36)
[2021-06-19] MEDS: IRON SUCROSE COMPLEX 200 MG in Normal Saline 100 ML 400 MG IVPB (09:35)
[2021-06-19] MEDS: Montelukast 10 MG TAB PO (09:36)
[2021-06-19] MEDS: Normal Saline Flush 10 ML SYR IVP ×3 (09:36→20:37)
[2021-06-19] MEDS: Rosuvastatin 10 MG TAB PO (09:36)
[2021-06-19] MEDS: Pantoprazole 40 MG TABCR PO ×2 (09:36→20:36)
[2021-06-19] MEDS: Sucralfate 1 GM TAB PO ×4 (09:37→22:38)
--- NOTE | 2021-06-19 09:41 | PDOC.CMPRO ---
- If Service Date Differs Date of service: 06/19/21 Time of Service: 09:41 Care Management Progress Note S/O:Bear was lying in bed visiting with his fiancee Kylee when CM met with him. Yesterday Bear had additional surgery on his knee and extensive debridement and synovectomy and meniscectomy were performed. He also had left leg irrigation and debridement of skin, subcutaneous tissue, fascia and muscle. Antibiotic beads were introduced and left in the wounds. Bear and Kylee had questions about the surgery which CM was able to answer. All of the blood cultures drawn after 06/15/21 remain negative to date. Options for half-way antibiotic therapy were discussed briefly with eBar and Kylee but Bear is clearly not ready for discharge. CM will discuss with the team and explore various possibilities. A: Bear is a 70 year old man admitted on 06/10/21 with a knee infection P:Bear will likely be discharged home, possibly with new home health services. A prolonged course of IV antibiotics will likely be required. Bear would prefer to receive the antibiotics at home if at all possible. He will follow up with his PCP and plan of care and transport with family. CM will continue to provide support to Bear and his discharge needs.
--- NOTE | 2021-06-19 13:52 | INPN_ITS ---
Date of service: 06/19/21 Time of Service: 12:54 PT Notes Visit Reasons: Knee Joint Infection Physical Therapy Inpatient Progress Note Date: 06/19/2021 Dates of service: 06/12/2021 through 06/19/2021 Referring Doctor: Nav Albarado MD PT Orders: PT CONSULT: Eval/treat Precautions: Fall. Standard.? Weight bearing as tolerated on the left LE with AD. Patient Profile/Admitting Diagnosis: Bear is a 70-year-old male who presented to the ED with increased pain, swelling, and redness of the left knee and leg and decreased ability to move set extremity that had been going on 1-1/2 weeks prior. ? Patient is diagnosed with septic arthritis, acute GI bleeding, coronary artery disease, diabetes mellitus, hypertension, and hypercholesterolemia.? Patient is status post debridement and lavage for infection and I&D of abscess on postoperative day 0. PMHX: All Active Problems?(Updated 06/10/21 @ 16:11 by Nav Albarado MD) DVT prophylaxis (Acute) CKD (chronic kidney disease) (Chronic) Acute anemia (Acute) Septic arthritis (Acute) Acute GI bleeding (Acute) Anaphylactic reaction due to adverse effect of correct drug or medicament properly administered, initial encounter (Acute) CAD (coronary artery disease) (Chronic) Acute kidney injury superimposed on CKD (Acute) Closed left clavicular fracture (Acute 09/07/18) Medical History? Diabetes Heart attack Hypercholesterolemia Hypertension Lip swelling Social History/Home Situation: Independent with all ADL performance without an assistive device.? Lives with fianc? in a private home.? 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 Equipment Owned/DME: None Subjective: Agreeable to PT PT session. Reports 3?4/10 pain in the left LE with weight bearing. Objective: General Observation: Wound dressing to left LE.? IV through right UE. Mental Status: Alert and oriented as to person, place, time, and purpose. Able to pay attention, focus, and respond appropriately. Pain: 3?4/10 in the morning and 6/10 in the left LE with weightbearing Vital Signs: Within normal limits as closely monitored by nursing staff ROM: Right Upper Extremity: ? Shoulder Flexion WFL. Shoulder abduction WFL. Elbow flexion WFL. Wrist flexion WFL. Functional opening and closing of hand WFL. Left Upper Extremity:? Shoulder Flexion WFL. Shoulder abduction WFL. Elbow flexion WFL. Wrist flexion WFL. Functional opening and closing of hand WFL. Right Lower Extremity: Hip flexion WFL. Hip abduction WFL. Knee flexion WFL. Ankle dorsiflexion WFL. Ankle plantarflexion WFL. Left Lower Extremity: Able to slide left heel to about 30 degrees of knee flexion and hip flexion.? Needed assistance with moving left LE with sliding to the side for supine to sit. Strength: Right Upper Extremity: Shoulder flexors 4/5. Shoulder abductors 4/5. Elbow fle xors 5/5. Elbow extensors 5/5. Health Information Provider strong. Left Upper Extremity: Shoulder flexors 4/5. Shoulder abductors 4/5. Elbow flexors 5/5. Elbow extensors 5/5. Health Information Provider strong. Right Lower Extremity: Hip flexors 5/5. Hip abductors 5/5. Knee flexors 5/5. Knee extensors 5/5. Ankle dorsiflexors 5/5. Ankle plantarflexors 5/5. Left Lower Extremity: NT Bed Mobility/Transfers: Supine to sit with minimal assist to left LE with cues for safe/correct technique Sit to stand with contact-guard assist with moderate cues for safe/correct technique Stand to sit with minimal assist with moderate cues for safe/correct technique Bed to reclining chair with minimal assist with moderate cues for safe/correct technique Gait: Instructed patient with level surface ambulation of 6 steps requiring minimal assist.? Gait antalgic.? Unable to fully weight-bear on left LE due to pain. 3?4/10 pain in the morning and 6/10 pain in the afternoon. Nurse Nicki aware and managing. Mild shortness of breath that subsided with rest. THERA EX: Hip internal rotation on left x 10, quad sets on the left x10, Ankle DF/PF x 10 Balance: Static Sitting: Good Dynamic Sitting: Fair Static Standing: Fair Dynamic Standing: Poor Special Tests: Mobility Limitations Standardized Measure [facility] AM-PAC 6 clicks Basic Mobility Inpatient Short Form: Raw Score: 18? CMS Score: 47% deficit? ? ? Informed Consent/Education:? Patient was instructed in purpose of PT consult and plan of care. Agreeable to proceed with established PT POC to achieve personal goals. Assessment: Pain level limiting ability to perform transfers and ambulation.? Will need to continue to work with nurse for premedication for pain. ? Patient presents with clinical signs and symptoms consistent with current/admitting diagnoses that have resulted to mobility limitations, gait instability, generalized weakness, and overall ADL decline as demonstrated by the following impairment level findings: 1.? Decreased strength to left LE major muscle groups 2.? Impaired sitting/standing balance 3.? Impaired activity tolerance 4.? Limitation of joint range of motion in L LE joints Impairments are contributing to the following functional limitations: 1.? Decline in bed mobility skills 2.? Decline in transfer skills 3.? Difficulty with ambulation without assistive device and physical assistance 4.? Increased completion time for mobility ADL performance 5.? Increased risk for falls 6.? Difficulty with managing steps alone safely Patient is [place] [id number] moderate complexity based on the following: History: 70-year-old male with past medical history as indicated above Examination: Demonstrable impairment in strength, balance, and mobility level with underlying impairments and functional limitations as exhibited above as well as deficit score of 47% utilizing the [facility] Mobility Inpatient Short Form Presentation: Evolving Decision Makin moderate complexity Goals: Goals X1 week 1. Supine-Sit independent NOT MET, CONTINUE 2. Sit-Supine independent NOT MET, CONTINUE 3. Sit-Stand independent NOT MET, CONTINUE 4. Stand-Sit independent with FWW NOT MET, CONTINUE 5. Bed-Chair independent with FWW NOT MET, CONTINUE 6. Chair-Bed independent with FWW NOT MET, CONTINUE 7. Independent gait on level surface with use of FWW for at least 300 feet without report of pain nor dyspnea NOT MET, CONTINUE 8. Independent stair negotiation while holding onto B rails for at least 5 steps without report of pain nor dyspnea NOT MET, CONTINUE 9. Independent with home exercise program NOT MET, CONTINUE 10. Good static and dynamic standing balance/tolerance NOT MET, CONTINUE Plan of Care/Treatment Plan: 1-2x/day, 7 days/week x 1 week. Plan of care has been reviewed with the DATA ENTRY ANALYST providing the service under Physical Therapy direction. Initiate Physical Therapy intervention for pain management as needed, strengthening, bed mobility, transfers, gait, stairs, balance training, and use of assistive device. DISCHARGE RECOMMENDATIONS: [] ? Home with no services [] [] ? Home with services [specify]? [] ? Home with outpatient PT [] [X] ? SNF for continued rehabilitation. Patient will benefit from [facility] facility placement for continued skilled physical therapy services in order to progress mobility level, strength, and balance in preparation for a saf e discharge to home. [] ? [facility] [] [] ? SNF versus LTC based on ability to participate and progress [] TREATMENT CODE/TIME: Session 1??9753 [id number] x 15 minutes, 9711 0 x 8 minutes beg inning at 11:38 AM. Session 2??[id number] 0 x 23 minutes beginning at 13:52 PM. Thank you for the opportunity to participate in the care of this patient. Barb Araiza PT, DPT, CLT [facility] [place], [place]
--- NOTE | 2021-06-19 17:32 | PGE_ITS ---
Date of Service Date of service: 06/19/21 Time of Service: 17:32 Assessment and Plan Assessment and plan (1) Septic arthritis of knee, left: Status: Acute Assessment and plan: Present on admission, due to MSSA. s/p Left knee arthroscopic irrigation and debridement, on 06/11/21 as well as on 06/18/21 (with Left knee extensive synovectomy, Patellofemoral, intercondylar, anteromedial, and anterolateral, Left knee partial medial and partial lateral meniscectomy, Left leg irrigation and debridement: Skin, subcutaneous tissue, fascia, and muscle, Manual preparation and insertion of drug delivery device, intra-articular stimulan calcium sulfate antibiotic?impregnated beads). Still febrile this am. Await repeat blood cultures. Continue Ancef 2 gm IV Q8hr. ABIs done today, await results. May need xfer to [facility] for further vascular workup, if ABIs abnormal. (2) Cutaneous abscess of left knee: Status: Acute Assessment and plan: As above. (3) MSSA bacteremia: Status: Acute Assessment and plan: blood cultures 06/15: MSSA. Blood cultures 06/16, 06/17 NGTD. Blood cultures from today pending. Source - septic knee. Continue Ancef 2 gm IV q8h. TTE negative. May require DELISA. (4) Acute anemia: Status: Acute Assessment and plan: Multifactorial, post-op as well as due to GI bleed. S/p transfusion 1 unit pRBCs on 06/13/21. Recheck CBC tomorrow. No active bleeding. (5) Acute kidney injury superimposed on CKD: Status: Acute Assessment and plan: Cr is 1.7 today, down from 1.8. (6) Acute GI bleeding: Status: Resolved Assessment and plan: On presentation, had melena/ heme positive stools, but this has since resolved. S/p xfusion 1 unit pRBCs on 06/13/21. Continue carafate, protonix, cytotec. (7) DVT prophylaxis: Status: Acute Assessment and plan: SC heparin Subjective Subjective Interval history since last seen: Mr Gamboa states that his LLE hurts with any movement. Denies dizziness, chest pain, nausea. Endorses CABRERA. Nursing reports significant drainage from L knee. Exam Narrative Exam Narrative: General: Pleasant middle-aged male, A&Ox3, uncomfortable with any movement of LLE HEENT: EOMI, MMM, poor dentition Heart: RRR, no m/r/g Lungs: CTAB Abdomen: soft, nontender, nondistended Extremities: LLE more edematous than R, TTP L tibial surface; L knee dressed; 2+ pedal pulses B Objective Last Vital Signs Temp 37.4 C 06/19/21 15:27 Pulse 75 06/19/21 15:27 Resp 18 06/19/21 15:27 BP 104/62 06/19/21 15:27 Pulse Ox 95 06/19/21 15:27 Laboratory Results - last 24 hr 06/18/21 06/19/21 19:00 06:55 Hgb 7.6 L Sodium 133 L Potassium 4.2 Chloride 98 Carbon Dioxide 26.4 Anion Gap 8.6 BUN 22 H D Creatinine 1.7 H Estimated GFR/1.73 m2 40.28 Glucose 197 H Calcium 8.3 L
[2021-06-19] MEDS: Senna TAB 1 TAB PO (22:38)
[2021-06-19] MEDS: Insulin Glargine 300 UNITS/3 ML PEN 25 UNITS SC (22:41)
[2021-06-20] VITALS (18 sets, daily range): BP systolic 96–136; BP diastolic 52–71; PULSE 54–85; RESP 12–18; TEMP 36.4–38.4; O2SAT 92–98
[2021-06-20] MEDS: Heparin 5,000 UNITS/ML VIAL 5000 UNITS SC ×3 (00:55→23:50)
[2021-06-20] MEDS: ceFAZolin 2 GM/50 ML BAG IVPB ×3 (02:04→18:32)
[2021-06-20] MEDS: Acetaminophen 325 MG TAB PO ×2 (03:27→14:12)
[2021-06-20] MEDS: Lactated Ringers 1,000 ML 85 ML IV ×2 (05:09→23:48)
[2021-06-20] MEDS: oxyCODONE 5 MG TAB PO ×3 (05:16→14:13)
[2021-06-20 06:39] LABS: Abs Immature Grans 0.21 10^3/uL (0.0-0.06); Absolute Eosinophil Count 0.08 10^3/uL (0.0-0.7); Basophils % 0.6; Eosinophils % 0.5; HCT 21.7 % (40.0-50.0); Immature Grans % 1.3; Lymphocytes % 7.5; MCHC 30.4 % (32.0-36.0); MCV 91.9 fL (80-95); MPV 8.7 fL (8.0-11.0); Monocytes % 8.4; Neutrophils % 81.7; Nucleated RBC 0 %; Platelet Count 562 10^3/uL (130-400); RBC 2.36 10^6/uL (4.36-5.78); RDW 15.1 % (11.8-14.1); RDW-SD 49.8 fL; WBC 16.51 10^3/uL (4.4-10.8)
[2021-06-20 06:42] LABS: Absolute Lymphocyte Count 1.24 10^3/uL (1.2-3.4)
[2021-06-20 06:44] LABS: Absolute Monocyte Count 1.39 10^3/uL (0.1-0.8); Absolute Neutrophil Count 13.49 10^3/uL (1.2-6.7); HGB 6.6 g/dL (13.5-17.5)
[2021-06-20 06:49] LABS: ESR 32 mm/hr (0-20)
[2021-06-20 06:53] LABS: Anion Gap 7.7 mmol/L (3-11); BUN 25 mg/dL (7-18); C-Reactive Protein 17.62 mg/dL (0.0-0.3); CO2 26.3 mmol/L (21.0-32.0); CREATININE 1.8 mg/dL (0.70-1.30); Calcium 8.4 mg/dL (8.5-10.1); Chloride 99 mmol/L (98-107); Glucose 233 mg/dL (74-106); Magnesium 1.7 mg/dL (1.8-2.4); Potassium 3.9 mmol/L (3.5-5.1); Sodium 133 mmol/L (136-145)
[2021-06-20 06:54] LABS: Hemoglobin A1C 8.9 % (<5.7)
[2021-06-20] MEDS: Gabapentin 100 MG CAP PO ×3 (08:16→21:12)
[2021-06-20] MEDS: Insulin Aspart 300 UNITS/3 ML PEN SC ×4 (08:18→21:07)
[2021-06-20] MEDS: MAGNESIUM SULFATE 2 GM/50 ML BAG IVPB (08:28)
[2021-06-20] MEDS: Metoprolol 25 MG TAB 75 MG PO ×2 (08:28→21:14)
[2021-06-20] MEDS: Normal Saline Flush 10 ML SYR IVP ×2 (08:30→13:21)
[2021-06-20] MEDS: Acetaminophen 325 MG TAB 650 MG PO (09:19)
[2021-06-20] MEDS: diphenhydrAMINE 25 MG CAP PO (09:20)
--- NOTE | 2021-06-20 10:34 | CMPROGNOTE_ITS ---
- If Service Date Differs Date of service: 06/20/21 Time of Service: 10:34 Care Management Progress Note S/O:Bear was sitting up in a chair when CM met with him. This morning he had a CT scan of his leg which showed possible small collections close to an artery. The decision was made not to surgically intervene again at this time. The collections are in the same area as the antibiotic beads and it is hoped that they will help to suppress further bacterial growth. Bear described being resig sushil to the fact that he will need to remain at [facility] for some time. Dr. Rice came to see him this afternoon while SHAYNA was present and explained the results of the Ct scan as well as the treatment plan. After Dr. Rice left, Bear informed SHAYNA that he feels reassured and more confident that he is getting the right care. A: Bear is a 70 year old man admitted on 06/10/21 with a knee infection P:Bear will likely be discharged home, possibly with new home health services. A prolonged course of IV antibiotics will likely be required. Bear would prefer to receive the antibiotics at home if at all possible. He will follow up with his PCP and plan of care and transport with family. CM will continue to provide support to Bear and his discharge needs.
[2021-06-20] MEDS: Omnipaque 350 MG/ML 100 ML BTL IJ (11:10)
--- NOTE | 2021-06-20 11:11 | DI.CT_ITS ---
Exam(s) CT LOWER EXTREMITY LT W EXAM: CT LOWER EXTREMITY LT W CLINICAL HISTORY: septic knee, concern for soft tissue abscess. TECHNIQUE: Imaging Protocol: Axial computed tomography images with coronal and sagittal reformatted images were created and reviewed. CONTRAST MATERIAL: Intravenous: Omnipaque 350. Contrast Volume: 100 ML COMPARISON: CR XR KNEE LT 3V AP,LAT,DRAKE from 06/18/2021 CR XR KNEE LT 2V AP,LAT from 06/19/2021 FINDINGS: Bones: Loss of the cortex seen at the posterolateral aspect of the proximal tibia and the anterior m edial aspect of the fibular head. Given the patient's clinical history osteomyelitis should be consid ered. Bony alignment is satisfactory. There is no evidence of joint space narrowing or cystic degener ation seen. No lytic or sclerotic lesions are identified. Soft Tissues: There is a fat containing left inguinal hernia. There is edema seen in the soft tissue s throughout the lower extremity. Skin thickening is seen anterolaterally. There are few small flui d collections between the proximal tibia and fibula which may represent small abscesses. The largest measures 1.3 x 1.3 cm. (Series 4, images 293-331). Radiopaque beads are seen in the soft tissues la teral to the proximal tibia and fibula and within the knee joint space. This may be for treatment pu rposes. Air is seen in the soft tissues around the knee and within the knee joint consistent with re cent debridement. In the soft tissues lateral to the fibular head, amorphous high density material i s seen amongst the air and radiopaque beads. (Series 4, images 288 through 300). Enhancement: No evidence to suggest a an abscess is seen. IMPRESSION: 1. Cortical disruptive changes involving the proximal tibia and fibula as described above. Osteomyeli tis cannot be excluded. 2. Soft tissue edema and skin thickening through the entire length of the left lower extremity consis tent with cellulitis. 3. A few small fluid collections interposed between the proximal tibia and fibula which may represent small abscesses. The largest measures 1.3 x 1.3 cm. 4. Interval placement of radiopaque beads within the knee joint in the subcutaneous tissues around th e knee likely reflecting therapy. 5. Small air for fists high-density material seen amongst the air and radiopaque beads adjacent to th e fibular head. Differential considerations include hemorrhage or extravasation of contrast. RADIATION DOSE DELIVERED: 990.31mGy.cm Total DLP 990.31mGy.cm Total DLP DATA REPOSITORY: All CT scans at this facility are submitted to the National Radiology Data Registry (NRDR) Dose Index Registry (DIR) with the [employer] (A[employer]). RADIATION OPTIMIZATION: All CT scans at this facility use at least one of these dose optimization te chniques: automated exposure control; mA and/or kV adjustment per patient size (includes targeted exa ms where dose is matched to clinical indication); or iterative reconstruction.
--- NOTE | 2021-06-20 11:29 | W.PM.PROGNOT ---
Date of Service Date of service: 06/20/21 Time of Service: 11:29 Assessment and Plan Assessment and plan (1) Septic arthritis of knee, left: Status: Acute Assessment and plan: Present on admission, due to MSSA. s/p Left knee arthroscopic irrigation and debridement, on 06/11/21 as well as on 06/18/21. Abx beads in place. Due to persistent fevers, even though Blood cx from 05/16, 05/17, and 05/19 have NGTD, there is a concern for need for repeat washout given high temp last night. CT pending. Continue Ancef 2 gm IV Q8hr. ABIs done yesterday, but I cannot find results in the computer - awaiting more info. May need xfer to [facility] for further vascular workup, if ABIs abnormal, but he does have a good pedal pulse in LLE, and suspicion for critical PAD in LLE is low. Discussed with Dr Josue. (2) Cutaneous abscess of left knee: Status: Acute Assessment and plan: As above. (3) MSSA bacteremia: Status: Acute Assessment and plan: blood cultures 06/15: MSSA. Blood cultures 06/16, 06/17 NGTD. Blood cultures 06/19: NGTD. Source - septic knee. Continue Ancef 2 gm IV q8h. TTE negative. May require DELISA. As above. (4) Acute anemia: Status: Acute Assessment and plan: Multifactorial, post-op as well as due to GI bleed and dilutional. H/H is down to 6.6/21.7 today. S/p transfusion 1 unit pRBCs on 06/13/21. Receiving 2 more units of pRBCs. No active bleeding. (5) Acute kidney injury superimposed on CKD: Status: Acute Assessment and plan: Cr Stable. Will monitor post administration of IV contrast. (6) Acute GI bleeding: Status: Resolved Assessment and plan: On presentation, had melena/ heme positive stools, but this has since resolved. S/p xfusion 1 unit pRBCs on 06/13/21 and getting 2 more units today. Clinically, the bleeding has resolved. Continue carafate, protonix, cytotec. (7) DVT prophylaxis: Status: Acute Assessment and plan: SC heparin on hold in light of possible OR today Subjective Subjective Interval history since last seen: Mr Gamboa continues to report a lot of pain in Left knee, especially on movement of any kind. He denies dizziness, chest pain, shortness of breath, nausea. No GI bleeding reported. T max 38.[address] Josue was contacted by the night hospitalist and recommended keeping the patient NPO with plans for CT LLE today and possible OR. CT read is not yet available. Exam Narrative Exam Narrative: General: Pleasant middle-aged male, A&Ox3, pale, looks uncomfortable, getting blood transfusion HEENT: EOMI, MMM, poor dentition Heart: RRR, no m/r/g Lungs: CTAB Abdomen: soft, nontender, nondistended Extremities: LLE more edematous than R, TTP L tibial surface; L knee dressed; 2+ pedal pulses B Objective Last Vital Signs Temp 36.9 C 06/20/21 11:05 Pulse 71 06/20/21 11:05 Resp 16 06/20/21 11:05 BP 104/61 06/20/21 11:05 Pulse Ox 94 06/20/21 11:05 Laboratory Results - last 24 hr 06/10/21 06/20/21 06/20/21 11:54 06:07 06:07 WBC RBC Hgb Hct MCV MCH MCHC RDW Plt Count MPV Immature Gran % Neutrophils % Lymphocytes % Monocytes % Eosinophils % Basophils % Nucleated RBC % Absolute Neutrophils Absolute Lymphocytes Absolute Monocytes Absolute Eosinophils Absolute Basophils ESR Sodium Potassium Chloride Carbon Dioxide Anion Gap BUN Creatinine Estimated GFR/1.73 m2 Glucose Hemoglobin A1c 8.9 H Calcium Magnesium 1.7 L C-Reactive Protein 17.62 H Patient ABO/Rh Antibody Screen Crossmatch See Detail 06/20/21 06/20/21 06/20/21 06:07 06:07 06:07 WBC 16.51 H RBC 2.36 L Hgb 6.6 L* Hct 21.7 L MCV 91.9 MCH 28.0 MCHC 30.4 L RDW 15.1 H Plt Count 562 H MPV 8.7 Immature Gran % 1.3 Neutrophils % 81.7 Lymphocytes % 7.5 Monocytes % 8.4 Eosinophils % 0.5 Basophils % 0.6 Nucleated RBC % 0 Absolute Neutrophils 13.49 H Absolute Lymphocytes 1.24 Absolute Monocytes 1.39 H Absolute Eosinophils 0.08 Absolute Basophils 0.10 ESR 32 H Sodium 133 L Potassium 3.9 Chloride 99 Carbon Dioxide 26.3 Anion Gap 7.7 BUN 25 H Creatinine 1.8 H Estimated GFR/1.73 m2 37.60 Glucose 233 H Hemoglobin A1c Calcium 8.4 L Magnesium C-Reactive Protein Patient ABO/Rh Antibody Screen Crossmatch 06/20/21 07:55 WBC RBC Hgb Hct MCV MCH MCHC RDW Plt Count MPV Immature Gran % Neutrophils % Lymphocytes % Monocytes % Eosinophils % Basophils % Nucleated RBC % Absolute Neutrophils Absolute Lymphocytes Absolute Monocytes Absolute Eosinophils Absolute Basophils ESR Sodium Potassium Chloride Carbon Dioxide Anion Gap BUN Creatinine Estimated GFR/1.73 m2 Glucose Hemoglobin A1c Calcium Magnesium C-Reactive Protein Patient ABO/Rh A Positive Antibody Screen NEGATIVE Crossmatch See Detail Objective Narrative Objective Narrative: CT LLE pending
[2021-06-20] MEDS: Docusate Sodium 100 MG CAP PO ×2 (14:12→21:11)
--- NOTE | 2021-06-20 15:37 | CHAPLAIN ---
Bear was sitting up in the chair when I visited. He told me about his infected knee. 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 Today is his birthday, and his mom, sister and girlfriend will be in to visit. I will continue to visit.
--- NOTE | 2021-06-20 16:34 | NUR.NOTE ---
Nursing Note: LR infusion at 85cc/hr paused during administration of 2nd unit of blood
--- NOTE | 2021-06-20 16:40 | W.PM.PROGNOT ---
Date of Service Date of service: 06/20/21 Time of Service: 16:40 Assessment and Plan Assessment and plan (1) Septic arthritis of knee, left: Status: Acute Assessment and plan: 71-year-old male postop day #2 status post revision left knee arthroscopy with irrigation debridement, synovectomy, proximal anterolateral leg abscess I&D, and placement of vancomycin + tobramycin antibiotic calcium sulfate beads Clinically, patient and knee leg appear somewhat improved. Knee range of motion remains difficult with infection discomfort versus stiffness limiting factor. Concerned about nonhealing popliteal skin breakdown/wound and artificially elevated ROBI given obvious vascular calcifications and disease. Discussed at length with patient, his , nursing staff, primary medical doctors, and Dr. Rice. No plans for immediate repeat surgery. CT somewhat reassuring for no significant additional sites of infection. Probable proximal tibia-fibula osteomyelitis. Continue dressing changes with expected drainage from knee and leg wounds: Pull iodoform back about 1 inch each dressing change, cover draining wounds with dry 4 x 4 gauze, ABDs, and wrap gently with Kerlex. Monitor posterior knee wound. Recommend strict elevation left lower extremity while in bed. Physical therapy may focus on hip, knee, foot and ankle range of motion and seated plus supine exercises instead of weightbearing and ambulation. Repeat inflammatory markers CBC with differential, ESR, and CRP every 48 hours. Reassess patient next week need for any additional surgery. Continue optimize patient medically and continue IV antibiotics. (2) Cutaneous abscess of left knee: Status: Acute (3) Subacute osteomyelitis, left tibia and fibula: Status: Acute Exam Narrative Exam Narrative: SevereResting comfortably in chair. No pain without knee motion. Knee is stiff and significant discomfort with motion although not near as prior to repeat surgery. No significant erythema. Anteromedial anterolateral knee portals appear well. Serosanguineous drainage from the superior lateral portal. Anterior lateral leg wound with iodoform packing pulled back a few inches. Some beads expressed and serosanguineous drainage. No overt pus either wound. No surrounding erythema. Significant distal foot and ankle edema. Pressure wound ulcer skin type breakdown popliteal area still present without significant healing. No proximal streaking. Objective Last Vital Signs Temp 99.0 F 06/20/21 16:04 Pulse 76 06/20/21 16:04 Resp 18 06/20/21 16:04 BP 121/71 06/20/21 16:04 Pulse Ox 93 06/20/21 16:04 Laboratory Results - last 24 hr 06/10/21 06/20/21 06/20/21 11:54 06:07 06:07 WBC RBC Hgb Hct MCV MCH MCHC RDW Plt Count MPV Immature Gran % Neutrophils % Lymphocytes % Monocytes % Eosinophils % Basophils % Nucleated RBC % Absolute Neutrophils Absolute Lymphocytes Absolute Monocytes Absolute Eosinophils Absolute Basophils ESR Sodium Potassium Chloride Carbon Dioxide Anion Gap BUN Creatinine Estimated GFR/1.73 m2 Glucose Hemoglobin A1c 8.9 H Calcium Magnesium 1.7 L C-Reactive Protein 17.62 H Patient ABO/Rh Antibody Screen Crossmatch See Detail 06/20/21 06/20/21 06/20/21 06:07 06:07 06:07 WBC 16.51 H RBC 2.36 L Hgb 6.6 L* Hct 21.7 L MCV 91.9 MCH 28.0 MCHC 30.4 L RDW 15.1 H Plt Count 562 H MPV 8.7 Immature Gran % 1.3 Neutrophils % 81.7 Lymphocytes % 7.5 Monocytes % 8.4 Eosinophils % 0.5 Basophils % 0.6 Nucleated RBC % 0 Absolute Neutrophils 13.49 H Absolute Lymphocytes 1.24 Absolute Monocytes 1.39 H Absolute Eosinophils 0.08 Absolute Basophils 0.10 ESR 32 H Sodium 133 L Potassium 3.9 Chloride 99 Carbon Dioxide 26.3 Anion Gap 7.7 BUN 25 H Creatinine 1.8 H Estimated GFR/1.73 m2 37.60 Glucose 233 H Hemoglobin A1c Calcium 8.4 L Magnesium C-Reactive Protein Patient ABO/Rh Antibody Screen Crossmatch 06/20/21 07:55 WBC RBC Hgb Hct MCV MCH MCHC RDW Plt Count MPV Immature Gran % Neutrophils % Lymphocytes % Monocytes % Eosinophils % Basophils % Nucleated RBC % Absolute Neutrophils Absolute Lymphocytes Absolute Monocytes Absolute Eosinophils Absolute Basophils ESR Sodium Potassium Chloride Carbon Dioxide Anion Gap BUN Creatinine Estimated GFR/1.73 m2 Glucose Hemoglobin A1c Calcium Magnesium C-Reactive Protein Patient ABO/Rh A Positive Antibody Screen NEGATIVE Crossmatch See Detail Objective Narrative Objective Narrative: WBC similar at 16.5 Hgb mild expected drop to 6.6 ESR down to 32 CRP elevated to 17.6 Postop left knee x-rays show excellent distribution of calcium sulfate antibiotic beads throughout knee joint and leg anterior lateral superficial and deep space infections CT left lower extremity does not show any significant missed abscess or fluid collection. There are probably multiple small fluid collections or deep abscesses centimeter or so size around the proximal tib-fib joint. Proximal tib-fib bone reactive changes versus osteomyelitis. Left ROBI 1.12
[2021-06-20] MEDS: Sucralfate 1 GM TAB PO ×2 (17:24→21:11)
[2021-06-20] MEDS: miSOPROStol 100 MCG TAB PO ×2 (17:24→21:10)
[2021-06-20] MEDS: Insulin Glargine 300 UNITS/3 ML PEN 25 UNITS SC (21:08)
[2021-06-20] MEDS: Pantoprazole 40 MG TABCR PO (21:11)
[2021-06-20] MEDS: Senna TAB 1 TAB PO (21:11)
[2021-06-21] MEDS: oxyCODONE 5 MG TAB PO ×3 (01:19→12:01)
[2021-06-21] MEDS: ceFAZolin 2 GM/50 ML BAG IVPB ×3 (01:19→21:12)
[2021-06-21 06:40] LABS: Abs Immature Grans 0.17 10^3/uL (0.0-0.06); Absolute Eosinophil Count 0.08 10^3/uL (0.0-0.7); Absolute Lymphocyte Count 1.32 10^3/uL (1.2-3.4); Absolute Neutrophil Count 13.84 10^3/uL (1.2-6.7); Basophils % 0.6; Eosinophils % 0.5; HCT 25.3 % (40.0-50.0); HGB 8.1 g/dL (13.5-17.5); Lymphocytes % 7.9; MCH 28.6 pg (27.0-33.0); MCV 89.4 fL (80-95); MPV 8.5 fL (8.0-11.0); Monocytes % 7.2; Neutrophils % 82.8; Nucleated RBC 0 %; Platelet Count 543 10^3/uL (130-400); RBC 2.83 10^6/uL (4.36-5.78); RDW 15.1 % (11.8-14.1); RDW-SD 48.8 fL; WBC 16.71 10^3/uL (4.4-10.8)
[2021-06-21 07:04] LABS: Anion Gap 7.8 mmol/L (3-11); BUN 24 mg/dL (7-18); CO2 25.2 mmol/L (21.0-32.0); CREATININE 1.8 mg/dL (0.70-1.30); Calcium 8.4 mg/dL (8.5-10.1); Chloride 99 mmol/L (98-107); Glucose 184 mg/dL (74-106); Magnesium 1.9 mg/dL (1.8-2.4); Potassium 3.9 mmol/L (3.5-5.1); Sodium 132 mmol/L (136-145)
[2021-06-21 07:57] LABS: Procalcitonin 0.6 ng/mL
[2021-06-21] MEDS: Polyethylene Glycol 3350 17 GM PACKET PO (08:01)
[2021-06-21] MEDS: Pantoprazole 40 MG TABCR PO ×2 (08:01→21:10)
[2021-06-21] MEDS: miSOPROStol 100 MCG TAB PO ×4 (08:02→21:08)
[2021-06-21] MEDS: Montelukast 10 MG TAB PO (08:02)
[2021-06-21] MEDS: Sucralfate 1 GM TAB PO ×4 (08:03→21:08)
[2021-06-21] MEDS: Rosuvastatin 10 MG TAB PO (08:03)
[2021-06-21] MEDS: Gabapentin 100 MG CAP PO ×3 (08:04→21:08)
[2021-06-21] MEDS: Docusate Sodium 100 MG CAP PO ×3 (08:04→21:07)
[2021-06-21] MEDS: Cetirizine 10 MG TAB PO (08:04)
[2021-06-21] MEDS: Metoprolol 25 MG TAB 75 MG PO (08:06)
[2021-06-21] MEDS: Normal Saline Flush 10 ML SYR IVP (08:07)
[2021-06-21] MEDS: Heparin 5,000 UNITS/ML VIAL 5000 UNITS SC (08:07)
[2021-06-21] MEDS: Insulin Aspart 300 UNITS/3 ML PEN SC ×7 (08:09→21:19)
[2021-06-21 08:20] VITALS: BP 114/55; PULSE 69; RESP 16; TEMP 37.9; O2SAT 96
[2021-06-21] MEDS: Acetaminophen 325 MG TAB PO (09:03)
--- NOTE | 2021-06-21 10:45 | DI.RAD_ITS ---
Exam(s) XR PORTABLE CHEST AP POST LINE EXAM: XR PORTABLE CHEST AP POST LINE CLINICAL HISTORY: Line placement. TECHNIQUE: 2D digital imaging was performed. COMPARISON: CR XR CHEST 1V IN DI DEPT from 05/14/2021 FINDINGS: Single AP portable view. Sternotomy wires and evidence of previous CABG again noted Heart size is upper normal. The mediastinum is not widened. Lungs are clear. No infiltrates nor obvious pleural effusions. Distal tip of the left PICC line is in the lower SVC. IMPRESSION: No acute pulmonary findings on this single AP portable view of the chest. PICC line is in satisfactory position. DATA REPOSITORY: RADIATION DOSE DELIVERED: All CT scans at this facility use at least one of these dose optimization techniques: automated exposure control; mA and/or kV adjustment per patient size (includes targeted e xams where dose is matched to clinical indication); or iterative reconstruction.
[2021-06-21] MEDS: Celecoxib 100 MG CAP PO (12:00)
[2021-06-21] MEDS: Lactated Ringers 1,000 ML 85 ML IV (12:06)
[2021-06-21] MEDS: Bacitracin 1 PACKET (13:46)
[2021-06-21 15:27] VITALS: BP 95/49; PULSE 55; RESP 16; TEMP 36.9; O2SAT 96
--- NOTE | 2021-06-21 16:15 | W.PM.PROGNOT ---
Date of Service Date of service: 06/21/21 Time of Service: 16:16 Assessment and Plan Assessment and plan (1) Septic arthritis of knee, left: Start date: 06/21/21 Start time: 16:33 Status: Acute Assessment and plan: Present on admission, due to MSSA. Negative blood cx on 06/19 PICC placed today Cefazolin 2 gm q 8 H Cryo cuff to knee to help with pain management and swelling multimodalities for pain management (2) Cutaneous abscess of left knee: Start date: 06/21/21 Start time: 16:36 Status: Acute Assessment and plan: As above. (3) MSSA bacteremia: Start date: 06/21/21 Start time: 16:36 Status: Acute Assessment and plan: blood cultures 4/: MSSA. Blood cultures /, 4/ NGTD. Blood cultures 06/19: NGTD. Source - septic knee. Continue Ancef 2 gm IV q8h. TTE negative. May require DELISA. As above. (4) Acute anemia: Start date: 06/21/21 Start time: 16:36 Status: Acute Assessment and plan: Multifactorial, post-op as well as due to GI bleed and dilutional. H/H is down to 6.6/21.7 today. S/p transfusion 1 unit pRBCs on 06/13/21. Receiving 2 more units of pRBCs. No active bleeding. Held heparin subcu today, asa and plavix today (5) Acute kidney injury superimposed on CKD: Start date: 06/21/21 Start time: 16:37 Status: Acute Assessment and plan: Cr Stable. Will monitor post administration of IV contrast. (6) Acute GI bleeding: Start date: 06/21/21 Start time: 16:37 Status: Resolved Assessment and plan: On presentation, had melena/ heme positive stools, but this has since resolved. S/p xfusion 1 unit pRBCs on 06/13/21 and had 2 more units today Clinically, the bleeding has resolved. Continue carafate, protonix, cytotec. Hold heparin, plavix, asa (7) DVT prophylaxis: Start date: 06/21/21 Start time: 16:38 Status: Acute Assessment and plan: SC heparin on hold in light of needing blood transfusion yesterday discussed with Dr. Michelle Subjective Subjective Patient reports: no new complaints Interval history since last seen: Patient lying in bed. No pain. LLE foot pulse strong with doppler. LLE knee wrapped with berta wrap. PICC line placed today. Echo for Thursday. Sent ortho a message about a questionable cyrocuff for icing as patient states not much benefit out of icing his leg now. Denies CP, SOB, N/V/D Exam Narrative Exam Narrative: General: Pleasant middle-aged male, A&Ox3, pale, but appears comfortable. HEENT: EOMI, MMM, poor dentition Heart: RRR, no m/r/g Lungs: CTAB Abdomen: soft, nontender, nondistended Extremities: LLE more edematous than R doppler needed to hear sounds on left side, strong sounds, TTP L tibial surface; L knee dressed; 2+ pedal pulses left with doppler Objective Last Vital Signs Temp 36.9 C 06/21/21 15:27 Pulse 55 L 06/21/21 15:27 Resp 16 06/21/21 15:27 BP 95/49 L 06/21/21 15:27 Pulse Ox 96 06/21/21 15:27 Laboratory Results - last 24 hr 06/20/21 06/21/21 06/21/21 07:55 06:25 06:25 WBC RBC Hgb Hct MCV MCH MCHC RDW Plt Count MPV Immature Gran % Neutrophils % Lymphocytes % Monocytes % Eosinophils % Basophils % Nucleated RBC % Absolute Neutrophils Absolute Lymphocytes Absolute Monocytes Absolute Eosinophils Absolute Basophils Sodium 132 L Potassium 3.9 Chloride 99 Carbon Dioxide 25.2 Anion Gap 7.8 BUN 24 H Creatinine 1.8 H Estimated GFR/1.73 m2 37.60 Glucose 184 H Calcium 8.4 L Magnesium 1.9 Procalcitonin 0.6 Crossmatch See Detail 06/21/21 06:25 WBC 16.71 H RBC 2.83 L Hgb 8.1 L Hct 25.3 L MCV 89.4 MCH 28.6 MCHC 32.0 RDW 15.1 H Plt Count 543 H MPV 8.5 Immature Gran % 1.0 Neutrophils % 82.8 Lymphocytes % 7.9 Monocytes % 7.2 Eosinophils % 0.5 Basophils % 0.6 Nucleated RBC % 0 Absolute Neutrophils 13.84 H Absolute Lymphocytes 1.32 Absolute Monocytes 1.20 H Absolute Eosinophils 0.08 Absolute Basophils 0.10 Sodium Potassium Chloride Carbon Dioxide Anion Gap BUN Creatinine Estimated GFR/1.73 m2 Glucose Calcium Magnesium Procalcitonin Crossmatch
--- NOTE | 2021-06-21 16:20 | PT.INTREAT ---
Date of service: 06/21/21 Time of Service: 11:58 PT Notes Visit Reasons: Knee Joint Infection Inpatient Physical Therapy Treatment Note [facility] Date: 06/21/2021 PRECAUTIONS: Fall, WBAT L, Activity as tolerated SUBJECTIVE: Bear continues to report significant pain in L knee. He states that he is not interested in progressing with gait training, etc until his knee starts to feel better. OBJECTIVE: PAIN: Patient c/o L knee pain with gait training and transfers BED MOBILITY/TRANSFERS Supine-sit: Min A of L LE with HOB at 20 degrees Sit-stand: CGA x2 in a.m.; Min A with STEDY in p.m. Stand-sit: Min A x2 in a.m.; Min A with STEDY in p.m. GAIT Assistive Device: FWW Weight bearing: WBAT L Assist: Min A + CGA Distance: 10' + 5 steps Deviation: Significant B knee flexion (unable to fully extend), increased pain, c/o B UE and R LE fatigue, SOB, observed patient TDWB on L THEREX: Patient was instructed in gentle weight shifting and modified partial [id number] in STEDY lift. TOILETING: Patient toileted with assist. ASSESSMENT: Patient tolerated session with c/o increasing L knee pain with gait training and transfers. He demonstrates decreased activity tolerance and increasing weakness and deconditioning. PLAN: Continue with LE strengthening and gait and transfer training for improved mobility. TREATMENT CODE/TIME: Session 1: 23 minutes; 81212 x2 (11:58) Session 2: 15 minutes; 29496 (12:48)
--- NOTE | 2021-06-21 16:22 | PDOC.CMPRO ---
- If Service Date Differs Date of service: 06/21/21 Time of Service: 16:22 Care Management Progress Note S/O: Bear was not available to meet when CM attempted, as he was receiving RN care. Per report, he continues to have difficultly with range of motion, as infection discomfort and stiffness are limiting factors. His inflammatory markers will be closely monitored, and he will be reassessed for additional surgery next week. 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 CM will continue to follow. A: Bear is a 70 year old man admitted on 06/10/21 with a knee infection P:Bear will likely be discharged home, possibly with new home health services. A prolonged course of IV antibiotics will likely be required. Bear would prefer to receive the antibiotics at home if at all possible. He will follow up with his PCP and plan of care and transport with family. CM will continue to provide support to Bear and his discharge needs.
[2021-06-21] MEDS: Senna TAB 1 TAB PO (21:08)
[2021-06-21] MEDS: Metoprolol 50 MG TAB 75 MG PO (21:08)
[2021-06-21] MEDS: Insulin Glargine 300 UNITS/3 ML PEN 25 UNITS SC (21:18)
[2021-06-21 21:31] VITALS: BP 115/66; PULSE 87; RESP 18; TEMP 37; O2SAT 95
[2021-06-21 23:35] VITALS: BP 154/71; PULSE 84
--- NOTE | 2021-06-22 | DI.CT_ITS ---
Exam(s) CT LOWER EXTREMITY LT W EXAM: CT LOWER EXTREMITY LT W CLINICAL HISTORY: evaluate left knee/thigh/leg infection TECHNIQUE: CR XR KNEE LT 3V AP,LAT,DRAKE from 06/18/[address] LOWER EXTREMITY LT W from 06/20/2021 FINDINGS: CT examination of the lower extremity was performed from mid thigh to mid tibial level. Examination is compared with examination of June 20 which showed multiple gas containing soft tissue foci per p redominantly on the medial and anterior aspect of the knee with multiple small radiopaque beads also present, presumably related to antibiotic administration. Prior examination showed subtle areas of d ecreased radiodensity of the proximal tibia and fibular head. On today's examination, the findings are essentially unchanged, with no new gross bony resorption. N o gross abscess formation at this time. Gas collections appear essentially unchanged. IMPRESSION: No interval change in appearance of presumed cellulitis of the region of the knee with likely proxima l tibial and fibular osteomyelitis. RADIATION DOSE DELIVERED: 460.05mGy.cm Total DLP !Error CTDIvol RADIATION OPTIMIZATION: All CT scans at this facility use at least one of these dose optimization te chniques: automated exposure control; mA and/or kV adjustment per patient size (includes targeted exa ms where dose is matched to clinical indication); or iterative reconstruction.
[2021-06-22] MEDS: oxyCODONE 5 MG TAB PO ×3 (01:05→14:25)
[2021-06-22] MEDS: Lactated Ringers 1,000 ML 85 ML IV (01:50)
[2021-06-22] MEDS: ceFAZolin 2 GM/50 ML BAG IVPB ×3 (03:39→20:50)
[2021-06-22] MEDS: Levothyroxine 25 MCG TAB PO (05:36)
[2021-06-22 06:48] LABS: Anion Gap 5.2 mmol/L (3-11); BUN 23 mg/dL (7-18); CO2 27.8 mmol/L (21.0-32.0); CREATININE 1.7 mg/dL (0.70-1.30); Calcium 8.4 mg/dL (8.5-10.1); Chloride 100 mmol/L (98-107); Estimated GFR 40.16 (mL/min/1.73m2); Glucose 180 mg/dL (74-106); Potassium 3.8 mmol/L (3.5-5.1); Sodium 133 mmol/L (136-145)
[2021-06-22 06:57] LABS: Abs Immature Grans 0.12 10^3/uL (0.0-0.06); Absolute Lymphocyte Count 1.08 10^3/uL (1.2-3.4); Absolute Monocyte Count 1.19 10^3/uL (0.1-0.8); Basophils % 0.5; Eosinophils % 0.5; HCT 25.1 % (40.0-50.0); HGB 7.9 g/dL (13.5-17.5); Immature Grans % 0.8; Lymphocytes % 7.3; MCH 28.6 pg (27.0-33.0); MCHC 31.5 % (32.0-36.0); MCV 90.9 fL (80-95); MPV 8.8 fL (8.0-11.0); Monocytes % 8.1; Neutrophils % 82.8; Nucleated RBC 0 %; Platelet Count 514 10^3/uL (130-400); RBC 2.76 10^6/uL (4.36-5.78); RDW 15.2 % (11.8-14.1); RDW-SD 49.6 fL; WBC 14.74 10^3/uL (4.4-10.8)
[2021-06-22 06:59] LABS: Absolute Basophil Count 0.07 10^3/uL (0.0-0.2); Absolute Eosinophil Count 0.07 10^3/uL (0.0-0.7)
[2021-06-22 07:10] LABS: Anisocytosis 1+; Diff Comment Agrees w/ Instrument; Macrocytosis 1+
[2021-06-22 07:11] LABS: Polychromasia Present
[2021-06-22 07:30] VITALS: BP 121/68; PULSE 82; RESP 20; TEMP 37.4; O2SAT 93
[2021-06-22] MEDS: Cetirizine 10 MG TAB PO (09:10)
[2021-06-22] MEDS: Docusate Sodium 100 MG CAP PO ×3 (09:10→20:49)
[2021-06-22] MEDS: Pantoprazole 40 MG TABCR PO ×2 (09:10→20:49)
[2021-06-22] MEDS: Sucralfate 1 GM TAB PO ×4 (09:10→20:50)
[2021-06-22] MEDS: Montelukast 10 MG TAB PO (09:10)
[2021-06-22] MEDS: Metoprolol 50 MG TAB 75 MG PO (09:11)
[2021-06-22] MEDS: miSOPROStol 100 MCG TAB PO ×4 (09:11→20:49)
[2021-06-22] MEDS: Gabapentin 100 MG CAP PO ×3 (09:11→20:49)
[2021-06-22] MEDS: Rosuvastatin 10 MG TAB PO (09:11)
[2021-06-22] MEDS: Normal Saline Flush 10 ML SYR IVP ×2 (09:12→21:22)
[2021-06-22] MEDS: Insulin Aspart 300 UNITS/3 ML PEN SC ×5 (09:13→23:30)
[2021-06-22 10:28] LABS: C-Reactive Protein 13.01 mg/dL (0.0-0.3); Magnesium 1.8 mg/dL (1.8-2.4)
[2021-06-22] MEDS: Celecoxib 100 MG CAP PO (11:24)
[2021-06-22] MEDS: Lisinopril 5 MG TAB 2.5 MG PO (11:24)
--- NOTE | 2021-06-22 12:45 | PT.INTREAT ---
PT Notes Visit Reasons: Knee Joint Infection Inpatient Physical Therapy Treatment Note [facility] Date: 06/22/21 SUBJECTIVE: Bear states that his knee still hurts when he moves it. He indicated that he is pain free at the moment but has been lying still in bed. He dreads getting up, knowing it will hurt. OBJECTIVE: [] PAIN: left knee pain. BED MOBILITY/TRANSFERS Supine-sit: min A with LE Sit-stand: CGA/min A of 1 Stand-sit: CGA/min A of 1 GAIT Assistive Device:FWW Weight bearing: AT L Assist:CGA/min A of 1 Distance: 2x10' Deviation: chair to follow THEREX:LE strengthening, see flowsheet for details. ASSESSMENT: tolerated session well despite pain complaints. Admits pain is less once he takes a few steps, but then fatigue sets in and he can't go any further. PLAN:will continue to progress his strength and endurance/ mobility to tolerance following POC TREATMENT CODE/TIME: 45 min [id number], [id number]
--- NOTE | 2021-06-22 12:46 | W.PM.PROGNOT ---
Date of Service Date of service: 06/22/21 Time of Service: 12:01 Assessment and Plan Assessment and plan (1) Subacute osteomyelitis, left tibia and fibula: Status: Acute (2) MSSA bacteremia: Status: Acute (3) Cutaneous abscess of left knee: Status: Acute (4) Septic arthritis of knee, left: Status: Acute Assessment and plan: Bear is a 71-year-old who unfortunately is a complex infection. His systemic infection seems to be clearing with negative blood cultures and no repeated fevers. His white count has come down slightly and his CRP is also come down to the area of 13 which is where it has been after the previous procedures. However, his clinical exam still continues to worry me. He is unable to tolerate any passive motion about the left leg. He has pain to palpation around the left knee and cannot say that anything is much better. Usually the exam is the best determinant of adequate surgical treatment and antibiotic treatment. However, I am concerned that with the level of arthritis he has in the knee that the arthroscopic intervention is not enough. The CT scan was also concerning for osteomyelitis of the proximal tibia which is being treated with antibiotics but not directly decompressed. He also has small areas more deep at the level of the interosseous membrane which have been targeted as well. This is a very extensive infection. Thankfully, his systemic outlook is looking better how better sugar control stable vitals and improved labs. However, I still worry that we are not adequately treating the infection about the left knee and the left leg. Therefore, I am going to repeat the CT scan of his left knee and leg to evaluate for size of these abscesses which were remnant after the most recent procedure. Given the severity of the arthritis I think if there is concern for worsening, an open procedure to his left knee would be the most reasonable next step. Given the amount of arthritis in there as well I would proceed with an antibiotic spacer to deliver antibiotics to the bone within the intramedullary space and on the bone ends as well as treat the [id number] arthritis. This would necessitate likely future knee replacement which is concerning in the setting of infection. However, his level of arthritis may preclude treatment without such steps. I reviewed all this with Bear. He is very quick to say, something else probably needs to be done. He really cannot say that anything is much better. He expresses frustration with not being able to move and not being able to do. I reviewed the procedure once again with him and he agrees to proceed. I will await the CT scan later this afternoon and one other examination in the morning. N.p.o. after midnight and likely expectation of surgery tomorrow morning. He does have anemia which is currently stable around 8. However, if we proceed to the operating room this will likely require repeat transfusions as we will lose some blood. Subjective Subjective Interval history since last seen: Bear continues to report pain about the left knee. He has not had any other fevers. He denies chills. He has had negative blood cultures thus far in the last 2 collections. He has been able to ambulate to a chair but no further. Most this relates to pain. He denies significant pain along with any studies still slightly bent position. He is requiring some pain medications. His sugar control has been better. There has been some stable murky drainage on the dressings which have been changed daily. Exam Narrative Exam Narrative: Sitting up in the chair. Slightly pale. No acute distress. Appears uncomfortable. Evaluation of the left leg shows an externally rotated left leg with flexion about 45 to 50 degrees in the knee. Dressings intact and is clean and dry. There is 2+ pitting edema throughout the lower leg. No significant pain to palpation about the ankle displayed. No pain to palpation proximal thigh. However, there is some pain to palpation about the mid thigh distally, more laterally than medially. This area corresponds to some ecchymosis seen and some fullness as well. There is a large effusion. There is notable pain to palpation throughout the left knee, especially laterally. He is unable to tolerate any passive range of motion more than 5 or 10 degrees. He is unable to straight leg raise or elevate the left knee. Objective Last Vital Signs Temp 37.4 C 06/22/21 07:30 Pulse 82 06/22/21 07:30 Resp 20 06/22/21 07:30 BP 121/68 06/22/21 07:30 Pulse Ox 93 06/22/21 07:30 Laboratory Results - last 24 hr 06/22/21 06/22/21 06/22/21 06:00 06:00 06:00 WBC 14.74 H RBC 2.76 L Hgb 7.9 L Hct 25.1 L MCV 90.9 MCH 28.6 MCHC 31.5 L RDW 15.2 H Plt Count 514 H MPV 8.8 Immature Gran % 0.8 Neutrophils % 82.8 Lymphocytes % 7.3 Monocytes % 8.1 Eosinophils % 0.5 Basophils % 0.5 Nucleated RBC % 0 Absolute Neutrophils 12.20 H Absolute Lymphocytes 1.08 L Absolute Monocytes 1.19 H Absolute Eosinophils 0.07 Absolute Basophils 0.07 RBC Morphology See Below Polychromasia Present Anisocytosis 1+ Macrocytosis 1+ Sodium 133 L Potassium 3.8 Chloride 100 Carbon Dioxide 27.8 Anion Gap 5.2 BUN 23 H Creatinine 1.7 H Estimated GFR/1.73 m2 40.16 Glucose 180 H Calcium 8.4 L Magnesium 1.8 C-Reactive Protein 13.01 H
--- NOTE | 2021-06-22 14:14 | W.PM.PROGNOT ---
Date of Service Date of service: 06/22/21 Time of Service: 10:00 Assessment and Plan Assessment and plan (1) Septic arthritis of knee, left: Start date: 06/22/21 Start time: 10:00 Status: Acute Assessment and plan: Present on admission, due to MSSA. Negative blood cx on 06/19 PICC placed 06/21 Cefazolin 2 gm q 8 H Cryo cuff to knee to help with pain management and swelling multimodalities for pain management pain with minimal touching even to foot., and per ortho clinically he is not improving therefore he is getting a CT and possible OR tomorrow. (2) Subacute osteomyelitis, left tibia and fibula: Start date: 06/22/21 Start time: 10:00 Status: Suspected Assessment and plan: CT scan based on clinical picture. Based on results possible OR tomorrow Will need to be NPO after MN (3) Fall: Start date: 06/22/21 Start time: 10:00 Status: Acute Assessment and plan: This afternoon ambulating back to BR had nurse with gait belt started to go down was brought to ground by nurse. Patient knee gave out. assisted seating. He did not really fall. No injury. No LOC, No syncope or dizziness. (4) Cutaneous abscess of left knee: Start date: 06/22/21 Start time: 10:00 Status: Acute Assessment and plan: As above. He had 3 small areas in his knee with antibiotic beads however concern they have gotten worse. (5) MSSA bacteremia: Start date: 06/22/21 Start time: 10:00 Status: Acute Assessment and plan: blood cultures 4/2: MSSA. Blood cultures 4/3, 4/4 NGTD. Blood cultures 4/6: NGTD. Source - septic knee. Continue Ancef 2 gm IV q8h. TTE negative. May require DELISA. As above. (6) Acute anemia: Start date: 06/22/21 Start time: 10:00 Status: Acute Assessment and plan: Multifactorial, post-op as well as due to GI bleed and dilutional. H/H is down to 7.9, continue to monitor, Held heparin subcu today, asa and plavix today S/p transfusion 1 unit pRBCs on 06/13/21. Receiving 2 more units of pRBCs. No active bleeding. Hold all agents that would cause bleeding. (7) Acute kidney injury superimposed on CKD: Start date: 06/22/21 Start time: 10:00 Status: Acute Assessment and plan: Cr Stable. (8) Acute GI bleeding: Start date: 06/22/21 Start time: 10:00 Status: Resolved Assessment and plan: S/p xfusion 1 unit pRBCs on 06/13/21 and had 2 more units today Clinically, the bleeding has resolved. Continue carafate, protonix, cytotec. Hold heparin, plavix, asa (9) DVT prophylaxis: Start date: 06/21/21 Start time: 16:38 Status: Acute Assessment and plan: SC heparin on hold in light of needing blood transfusion yesterday discussed with Dr. Michelle Subjective Subjective Patient reports: no new complaints Interval history since last seen: Sitting at edge of bed no new complaints. LLE is swollen requiring dopplers for pulses. Pain when trying to move foot that extends to leg. even with littlest movement. Seen by Ortho, CT being ordered possible OR tomorrow. LSC. Ambulated with PT and Nursing. However this afternoon when coming back from leg gave out and he was assited to the floor he did not injure himself, self assist. Leg gave out even with walker. No injury. Will wait for CT results. Exam Narrative Exam Narrative: General: Pleasant middle-aged male, A&Ox3, pale, but appears comfortable. HEENT: EOMI, MMM, poor dentition Heart: RRR, no m/r/g Lungs: CTAB Abdomen: soft, nontender, nondistended Extremities: LLE more edematous than R doppler needed to hear sounds on left side, strong sounds pedal pulse, pain touch to foot he states it bothers his knee and he feels the pain just trying to remove the sock. TTP L tibial surface; L knee dressed; 2+ pedal pulses left with doppler Objective Last Vital Signs Temp 37.4 C 06/22/21 07:30 Pulse 82 06/22/21 07:30 Resp 20 06/22/21 07:30 BP 121/68 06/22/21 07:30 Pulse Ox 93 06/22/21 07:30 Laboratory Results - last 24 hr 06/22/21 06/22/21 06/22/21 06:00 06:00 06:00 WBC 14.74 H RBC 2.76 L Hgb 7.9 L Hct 25.1 L MCV 90.9 MCH 28.6 MCHC 31.5 L RDW 15.2 H Plt Count 514 H MPV 8.8 Immature Gran % 0.8 Neutrophils % 82.8 Lymphocytes % 7.3 Monocytes % 8.1 Eosinophils % 0.5 Basophils % 0.5 Nucleated RBC % 0 Absolute Neutrophils 12.20 H Absolute Lymphocytes 1.08 L Absolute Monocytes 1.19 H Absolute Eosinophils 0.07 Absolute Basophils 0.07 RBC Morphology See Below Polychromasia Present Anisocytosis 1+ Macrocytosis 1+ Sodium 133 L Potassium 3.8 Chloride 100 Carbon Dioxide 27.8 Anion Gap 5.2 BUN 23 H Creatinine 1.7 H Estimated GFR/1.73 m2 40.16 Glucose 180 H Calcium 8.4 L Magnesium 1.8 C-Reactive Protein 13.01 H
[2021-06-22] MEDS: Acetaminophen 325 MG TAB PO (14:25)
[2021-06-22] MEDS: Omnipaque 350 MG/ML 100 ML BTL IJ (14:49)
[2021-06-22 16:07] VITALS: BP 109/63; PULSE 55; RESP 18; TEMP 37.1; O2SAT 96
[2021-06-22] MEDS: Senna TAB 1 TAB PO (20:49)
[2021-06-22] MEDS: Insulin Glargine 300 UNITS/3 ML PEN 12 UNITS SC (20:50)
[2021-06-22] MEDS: DEXTROSE 5%-0.9% SALINE 1,000 ML 75 ML IV (23:35)
[2021-06-22 23:58] VITALS: BP 120/58; PULSE 67; RESP 18; TEMP 36.6; O2SAT 94
[2021-06-23] MEDS: ceFAZolin 2 GM/50 ML BAG IVPB ×3 (03:52→20:01)
[2021-06-23] MEDS: Levothyroxine 25 MCG TAB PO (06:02)
[2021-06-23] MEDS: Insulin Aspart 300 UNITS/3 ML PEN SC ×7 (06:02→17:26)
[2021-06-23 06:54] LABS: Abs Immature Grans 0.09 10^3/uL (0.0-0.06); Absolute Basophil Count 0.08 10^3/uL (0.0-0.2); Absolute Lymphocyte Count 0.97 10^3/uL (1.2-3.4); Absolute Monocyte Count 1.05 10^3/uL (0.1-0.8); Basophils % 0.6; Eosinophils % 1.4; HCT 25.5 % (40.0-50.0); Immature Grans % 0.7; Lymphocytes % 7.3; MCH 28.4 pg (27.0-33.0); MCHC 31.4 % (32.0-36.0); MCV 90.4 fL (80-95); MPV 9.4 fL (8.0-11.0); Monocytes % 7.9; Neutrophils % 82.1; Nucleated RBC 0 %; Platelet Count 435 10^3/uL (130-400); RBC 2.82 10^6/uL (4.36-5.78); RDW 15.2 % (11.8-14.1); RDW-SD 49.4 fL; WBC 13.31 10^3/uL (4.4-10.8)
[2021-06-23 07:04] LABS: Absolute Eosinophil Count 0.19 10^3/uL (0.0-0.7); Absolute Neutrophil Count 10.93 10^3/uL (1.2-6.7)
[2021-06-23 07:10] LABS: Anion Gap 7.6 mmol/L (3-11); BUN 21 mg/dL (7-18); CO2 27.4 mmol/L (21.0-32.0); CREATININE 1.6 mg/dL (0.70-1.30); Calcium 8.5 mg/dL (8.5-10.1); Chloride 101 mmol/L (98-107); Estimated GFR 43.07 (mL/min/1.73m2); Glucose 179 mg/dL (74-106); Potassium 3.7 mmol/L (3.5-5.1); Sodium 136 mmol/L (136-145)
[2021-06-23 07:23] LABS: C-Reactive Protein 10.75 mg/dL (0.0-0.3)
[2021-06-23 07:30] VITALS: BP 113/64; PULSE 61; RESP 22; TEMP 37; O2SAT 96
[2021-06-23] MEDS: Docusate Sodium 100 MG CAP PO ×3 (07:58→20:00)
[2021-06-23] MEDS: Acetaminophen 325 MG TAB PO ×3 (07:58→20:00)
[2021-06-23] MEDS: Cetirizine 10 MG TAB PO (07:58)
[2021-06-23] MEDS: Gabapentin 100 MG CAP PO ×3 (07:59→20:00)
[2021-06-23] MEDS: miSOPROStol 100 MCG TAB PO (07:59)
[2021-06-23] MEDS: Montelukast 10 MG TAB PO (08:00)
[2021-06-23] MEDS: Normal Saline Flush 10 ML SYR IVP ×2 (08:00→20:01)
[2021-06-23] MEDS: oxyCODONE 5 MG TAB PO ×3 (08:00→20:00)
[2021-06-23] MEDS: Pantoprazole 40 MG TABCR PO ×2 (08:01→20:00)
[2021-06-23] MEDS: Rosuvastatin 10 MG TAB PO (08:01)
[2021-06-23] MEDS: Sucralfate 1 GM TAB PO ×4 (08:01→23:15)
[2021-06-23] MEDS: Water,Injection,Sterile 10 ML VIAL (10:18)
[2021-06-23] MEDS: Alteplase 2 MG VIAL (10:19)
[2021-06-23] MEDS: Potassium Chloride Liquid 20 MEQ PKT 40 MEQ PO (11:07)
--- NOTE | 2021-06-23 14:12 | PT.INTREAT ---
PT Notes Visit Reasons: Knee Joint Infection Inpatient Physical Therapy Treatment Note [facility] Date: 06/22/21 SUBJECTIVE: Bear states he is having surgery tomorrow am. He indicated that he feels this is the next step to feeling better. He is tired of not being able to do anything because of pain. He indicated that he fell yesterday on his way back from bathroom. My arms just couldn't hold me up anymore. OBJECTIVE: [] PAIN: left knee pain. BED MOBILITY/TRANSFERS Supine-sit: min A with LE Sit-stand: min A of 1 Stand-sit: CGA of 1 GAIT Assistive Device:FWW Weight bearing: AT L Assist:CGA of 1 Distance: 25' Deviation: chair to follow THEREX:LE strengthening, see flowsheet for details. ASSESSMENT: tolerated session well. Improved walking distance. He tires out due to UE fatigue. PLAN:will continue to progress his strength and endurance/ mobility to tolerance following POC TREATMENT CODE/TIME: 45 min [id number], [id number]
[2021-06-23 15:35] VITALS: BP 105/63; PULSE 84; RESP 21; TEMP 36.9; O2SAT 95
[2021-06-23] MEDS: Insulin Glargine 300 UNITS/3 ML PEN 12 UNITS SC (23:14)
[2021-06-23] MEDS: Senna TAB 1 TAB PO (23:15)
[2021-06-23] MEDS: DEXTROSE 5%-0.9% SALINE 1,000 ML 50 ML IV (23:19)
--- NOTE | 2021-06-24 | DI.US_ITS ---
APPROVED REPORT EXAM: Comprehensive 2D, Doppler, and color-flow Echocardiogram Patient Location: In-Patient Room/Bed: 230 Indications: Trauma, limited for endocarditis Conclusion Normal left ventricular wall thickness and chamber size. Estimated ejection fraction is approximatel y 60%. Wall motion appears normal The right ventricle is not well visualized Both atria appear top normal in size Aortic valve is sclerotic without vegetations Mitral annular calcification. No mitral valve vegetations identified Normal tricuspid valve, no tricuspid valve vegetation seen No pulmonic valve vegetation Wall motion Left Ventricle The left ventricular systolic function is normal. The left ventricular ejection fraction is within th e normal range. Aortic Valve There is no aortic valvular vegetation. Mitral Valve There is no evidence of mitral valve vegetations. Tricuspid Valve There is no tricuspid valve vegetations. Pulmonic Valve There is no pulmonic valve vegetations.
[2021-06-24 00:47] VITALS: BP 115/57; PULSE 89; RESP 17; TEMP 36.2; O2SAT 94
[2021-06-24] MEDS: ceFAZolin 2 GM/50 ML BAG IVPB ×3 (04:30→20:33)
[2021-06-24] MEDS: Levothyroxine 25 MCG TAB PO (06:47)
[2021-06-24] MEDS: Normal Saline Flush 10 ML SYR IVP ×6 (07:19→20:33)
[2021-06-24] MEDS: oxyCODONE 5 MG TAB PO ×2 (07:19→17:33)
[2021-06-24] MEDS: Acetaminophen 325 MG TAB PO ×2 (07:19→17:32)
[2021-06-24 07:44] LABS: Abs Immature Grans 0.09 10^3/uL (0.0-0.06); Absolute Basophil Count 0.11 10^3/uL (0.0-0.2); Absolute Eosinophil Count 0.24 10^3/uL (0.0-0.7); Absolute Monocyte Count 1.06 10^3/uL (0.1-0.8); Eosinophils % 2.1; HCT 27.4 % (40.0-50.0); HGB 8.4 g/dL (13.5-17.5); Immature Grans % 0.8; Lymphocytes % 7.5; MCH 28.5 pg (27.0-33.0); MCHC 30.7 % (32.0-36.0); MCV 92.9 fL (80-95); MPV 8.4 fL (8.0-11.0); Monocytes % 9.3; Neutrophils % 79.3; Nucleated RBC 0 %; Platelet Count 461 10^3/uL (130-400); RBC 2.95 10^6/uL (4.36-5.78); RDW 15.1 % (11.8-14.1); RDW-SD 51.5 fL
[2021-06-24 07:45] LABS: Absolute Lymphocyte Count 0.86 10^3/uL (1.2-3.4); Absolute Neutrophil Count 9.04 10^3/uL (1.2-6.7)
[2021-06-24 07:52] LABS: Anion Gap 7.2 mmol/L (3-11); BUN 17 mg/dL (7-18); CO2 27.8 mmol/L (21.0-32.0); CREATININE 1.6 mg/dL (0.70-1.30); Calcium 8.5 mg/dL (8.5-10.1); Chloride 101 mmol/L (98-107); Estimated GFR 43.07 (mL/min/1.73m2); Glucose 180 mg/dL (74-106); Magnesium 1.5 mg/dL (1.8-2.4); Potassium 3.9 mmol/L (3.5-5.1); Sodium 136 mmol/L (136-145)
[2021-06-24 08:08] VITALS: BP 145/67; PULSE 97; RESP 19; TEMP 36.7; O2SAT 95
[2021-06-24] MEDS: Insulin Aspart 300 UNITS/3 ML PEN SC ×6 (08:23→21:59)
--- NOTE | 2021-06-24 08:49 | PDOC.CMPRO ---
- If Service Date Differs Date of service: 06/24/21 Time of Service: 08:49 Care Management Progress Note S/O: Bear continues to have pain in his left knee. PT was put on hold at this time and will resume when appropriate per provider. Bear was evaluated by Dr. Rice today and is planning on going to the OR tomorrow for surgical intervention. 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 A: Bear is a 70 year old man admitted on 06/10/21 with a knee infection P:Bear will likely be discharged home, possibly with new home health services. A prolonged course of IV antibiotics will likely be required. Bear would prefer to receive the antibiotics at home if at all possible. He will follow up with his PCP and plan of care and transport with family. CM will continue to provide support to Bear and his discharge needs.
[2021-06-24] MEDS: MAGNESIUM SULFATE 4 GM/100 ML BAG IVPB (10:31)
[2021-06-24] MEDS: Magnesium Oxide 400 MG TAB 800 MG PO (10:31)
[2021-06-24] MEDS: Sucralfate 1 GM TAB PO ×3 (12:31→21:58)
--- NOTE | 2021-06-24 12:55 | W.PM.PROGNOT ---
Date of Service Date of service: 06/24/21 Time of Service: 12:20 Assessment and Plan Assessment and plan (1) Subacute osteomyelitis, left tibia and fibula: Status: Suspected (2) Cutaneous abscess of left knee: Status: Acute (3) Septic arthritis of knee, left: Status: Acute Assessment and plan: Bear is a 71-year-old who has severe arthritis about the left knee associated with osteomyelitis of the proximal tibia and fibula as well as a subcutaneous and deep abscess of the left lateral leg. He is status post 2 washouts. He does seem to make improvements with his inflammatory markers. He no longer has positive blood cultures and has no longer had any associated fevers. Unfortunately, he continues have significant pain about the left knee. Given the severity of the arthritis about the left knee in the continued elevate inflammatory markers, especially with known osteomyelitis, at this point I recommend open debridement with antibiotic spacer placement. This antibiotic spacer replace high dose of antibiotics against the bone surface and within the knee itself. Also would function as a better joint surface allowing him to ambulate right away with better motion hopefully less pain. Once doing this, we have obligated ourselves to it. It is possible the spacer stays in place for long-term although it likely would need to be revised at some point once he has eradicated the infection. I do think that the current treatment plan would continue to work on infection eradication, however, his lack of motion due to pain is going to limit his progress and would likely require secondary replacement. Therefore, there are 2 benefits with the antibiotic spacer both with antibiotic delivery as well as better function in the short-term. After reviewing this with Bear he elects to proceed. I did review the risk of the procedure to include bleeding, infection, pain, stiffness, wound healing complications, damage to nerves and vessels, damage to muscle and tendons, hardware loosening, need for repeat procedures, recurrent infection, blood clot, fracture. Despite these risk, he elects to proceed. Subjective Subjective Interval history since last seen: Bear continues to struggle with pain about his left knee. He has had some improvement with his inflammatory markers. He has been able to ambulate but only minimally. He is unable to fully straighten the leg. He has significant pain with any attempted weightbearing. He does feel that the general pain around the left knee has improved slightly but still limiting. He denies any fevers or chills. His most recent blood cultures been negative. Previous arthroscopy by myself and by Dr. Josue showed severe arthritis with complete obliteration of all cartilage surfaces within the knee. Exam Narrative Exam Narrative: Resting in the bed. NAD. AAOx3. Uncomfortable with any attempted motion of the left knee. Evalutation of the left left shows excoriation within the popliteal space. There are incisions about the knee and the lateral leg with intact sutures. Minimal surrounding errythema. Knee is held at 45 degrees of flexion. Any attempted motion causes pain. Pain to palpation about the knee, especially medial and lateral joint lines. Objective Last Vital Signs Temp 36.7 C 06/24/21 08:08 Pulse 97 H 06/24/21 08:08 Resp 19 06/24/21 08:08 BP 145/67 H 06/24/21 08:08 Pulse Ox 95 06/24/21 08:08 Laboratory Results - last 24 hr 06/24/21 06/24/21 07:00 07:00 WBC 11.40 H RBC 2.95 L Hgb 8.4 L Hct 27.4 L MCV 92.9 MCH 28.5 MCHC 30.7 L RDW 15.1 H Plt Count 461 H MPV 8.4 Immature Gran % 0.8 Neutrophils % 79.3 Lymphocytes % 7.5 Monocytes % 9.3 Eosinophils % 2.1 Basophils % 1.0 Nucleated RBC % 0 Absolute Neutrophils 9.04 H Absolute Lymphocytes 0.86 L Absolute Monocytes 1.06 H Absolute Eosinophils 0.24 Absolute Basophils 0.11 Sodium 136 Potassium 3.9 Chloride 101 Carbon Dioxide 27.8 Anion Gap 7.2 BUN 17 Creatinine 1.6 H Estimated GFR/1.73 m2 43.07 Glucose 180 H Calcium 8.5 Magnesium 1.5 L
--- NOTE | 2021-06-24 13:15 | W.PM.PROGNOT ---
Date of Service Date of service: 06/24/21 Time of Service: : Assessment and Plan Assessment and plan (1) Septic arthritis of knee, left: Start date: 06/24/21 Start time: : Status: Acute Assessment and plan: Present on admission, due to MSSA. Negative blood cx on 06/19 PICC placed 06/21 Cefazolin 2 gm q 8 H Cryo cuff to knee to help with pain management and swelling multimodalities for pain management pain with minimal touching even to foot., and per ortho clinically he is not improving therefore he is getting a CT and possible OR tomorrow. (2) Subacute osteomyelitis, left tibia and fibula: Start date: 06/24/21 Start time: :20 Status: Suspected Assessment and plan: CT scan based on clinical picture. Based on results possible OR tomorrow Will need to be NPO after MN (3) Fall: Start date: 06/24/21 Start time: :20 Status: Acute Assessment and plan: yesterday patient was lowered to floor after knee gave out. No injuries no more occurrences since then. Staff present with patient. (4) Cutaneous abscess of left knee: Start date: 06/24/21 Start time: :20 Status: Acute Assessment and plan: As above. He had 3 small areas in his knee with antibiotic beads however concern they have gotten worse. (5) MSSA bacteremia: Start date: 06/24/21 Start time: :20 Status: Acute Assessment and plan: blood cultures 4/2: MSSA. Blood cultures 4/3, 4/4 NGTD. Blood cultures 4/6: NGTD. Source - septic knee. Continue Ancef 2 gm IV q8h. TTE negative. May require DELISA. As above. (6) Acute anemia: Start date: 06/24/21 Start time: :20 Status: Acute Assessment and plan: Multifactorial, post-op as well as due to GI bleed and dilutional. H/H has come up, continue to monitor, Held heparin subcu today, asa and plavix today S/p transfusion 1 unit pRBCs on 06/13/21. Receiving 2 more units of PRBCs. No active bleeding. Hold all agents that would cause bleeding. He did have an episode of bright red blood, he does have internal hemorrhoids. Will sumeet anusol for this and monitor (7) Acute kidney injury superimposed on CKD: Start date: 06/24/21 Start time: 11:20 Status: Acute Assessment and plan: Cr Stable. continue to monitor (8) Acute GI bleeding: Start date: 06/22/21 Start time: 10:00 Status: Resolved Assessment and plan: S/p xfusion 1 unit pRBCs on 06/13/21 and had 2 more units today Clinically, the bleeding has resolved. Continue carafate, protonix, cytotec. Hold heparin, plavix, asa (9) DVT prophylaxis: Start date: 06/24/21 Start time: 11:20 Status: Acute Assessment and plan: SC heparin on hold in light of needing blood transfusion yesterday discussed with Dr. Albarado Subjective Subjective Patient reports: other Interval history since last seen: Patient lying in bed. Attentively was going to have surgery today however it was postponed until tomorrow. He stated pain was not bad although he just had pain medication. He will be taken to the OR tomorrow with Dr. Rice. Resume diet, NPO after MN, q6 hour FS, then. At this time. patient resting. Will hold off on PT. Exam Narrative Exam Narrative: General: Pleasant middle-aged male, A&Ox3, pale, but appears comfortable, lying in bed tired today HEENT: EOMI, MMM, poor dentition Heart: RRR, no m/r/g Lungs: CTAB Abdomen: soft, nontender, nondistended Rectum with hemorrhoids internally, bright red stool Extremities: LLE more edematous than R doppler needed to hear sounds on left side, strong sounds pedal pulse, pain touch to foot he states it bothers his knee and he feels the pain just trying to remove the sock. TTP L tibial surface; L knee dressed; 2+ pedal pulses left with doppler Objective Last Vital Signs Temp 36.7 C 06/24/21 08:08 Pulse 97 H 06/24/21 08:08 Resp 19 06/24/21 08:08 BP 145/67 H 06/24/21 08:08 Pulse Ox 95 06/24/21 08:08 Laboratory Results - last 24 hr 06/24/21 06/24/21 07:00 07:00 WBC 11.40 H RBC 2.95 L Hgb 8.4 L Hct 27.4 L MCV 92.9 MCH 28.5 MCHC 30.7 L RDW 15.1 H Plt Count 461 H MPV 8.4 Immature Gran % 0.8 Neutrophils % 79.3 Lymphocytes % 7.5 Monocytes % 9.3 Eosinophils % 2.1 Basophils % 1.0 Nucleated RBC % 0 Absolute Neutrophils 9.04 H Absolute Lymphocytes 0.86 L Absolute Monocytes 1.06 H Absolute Eosinophils 0.24 Absolute Basophils 0.11 Sodium 136 Potassium 3.9 Chloride 101 Carbon Dioxide 27.8 Anion Gap 7.2 BUN 17 Creatinine 1.6 H Estimated GFR/1.73 m2 43.07 Glucose 180 H Calcium 8.5 Magnesium 1.5 L
[2021-06-24] MEDS: Gabapentin 100 MG CAP PO ×2 (14:28→20:33)
[2021-06-24] MEDS: Docusate Sodium 100 MG CAP PO ×2 (14:28→20:32)
[2021-06-24 15:05] VITALS: BP 112/66; PULSE 87; RESP 18; TEMP 36.2; O2SAT 96
--- NOTE | 2021-06-24 16:04 | PT.INNT ---
Date of service: 06/24/21 Time of Service: 16:04 PT Notes Visit Reasons: Knee Joint Infection 06/24/2021 Hold PT today, per provider, as patient is scheduled for procedure in OR later today. Will attempt to resume PT services when appropriate per provider.
[2021-06-24] MEDS: Pantoprazole 40 MG TABCR PO (20:32)
[2021-06-24] MEDS: Senna TAB 1 TAB PO (21:58)
[2021-06-24] MEDS: Insulin Glargine 300 UNITS/3 ML PEN 12 UNITS SC (21:59)
[2021-06-25] VITALS (12 sets, daily range): BP systolic 95–149; BP diastolic 52–83; PULSE 83–104; RESP 18–22; TEMP 36.6–38; O2SAT 90–98; BMI 35.4
[2021-06-25] MEDS: DEXTROSE 5%-0.9% SALINE 1,000 ML 50 ML IV (00:54)
[2021-06-25] MEDS: ceFAZolin 2 GM/50 ML BAG IVPB ×3 (03:53→19:42)
[2021-06-25] MEDS: Levothyroxine 25 MCG TAB PO (06:33)
[2021-06-25] MEDS: Insulin Aspart 300 UNITS/3 ML PEN SC ×4 (06:33→22:50)
[2021-06-25 06:55] LABS: Abs Immature Grans 0.05 10^3/uL (0.0-0.06); Absolute Eosinophil Count 0.18 10^3/uL (0.0-0.7); Absolute Lymphocyte Count 0.96 10^3/uL (1.2-3.4); Absolute Monocyte Count 0.96 10^3/uL (0.1-0.8); Absolute Neutrophil Count 8.14 10^3/uL (1.2-6.7); Eosinophils % 1.7; HCT 27.3 % (40.0-50.0); HGB 8.2 g/dL (13.5-17.5); Immature Grans % 0.5; Lymphocytes % 9.2; MCH 27.9 pg (27.0-33.0); MCV 92.9 fL (80-95); MPV 8.8 fL (8.0-11.0); Monocytes % 9.2; Neutrophils % 78.4; Nucleated RBC 0 %; Platelet Count 409 10^3/uL (130-400); RBC 2.94 10^6/uL (4.36-5.78); RDW 15.1 % (11.8-14.1); RDW-SD 51.4 fL; WBC 10.39 10^3/uL (4.4-10.8)
[2021-06-25 07:05] LABS: Anion Gap 6.3 mmol/L (3-11); BUN 17 mg/dL (7-18); CO2 27.7 mmol/L (21.0-32.0); CREATININE 1.4 mg/dL (0.70-1.30); Calcium 8.3 mg/dL (8.5-10.1); Chloride 101 mmol/L (98-107); Estimated GFR 50.25 (mL/min/1.73m2); Glucose 159 mg/dL (74-106); Magnesium 1.8 mg/dL (1.8-2.4); Potassium 3.7 mmol/L (3.5-5.1); Sodium 135 mmol/L (136-145)
--- NOTE | 2021-06-25 09:03 | PDOC.CMPRO ---
- If Service Date Differs Date of service: 06/25/21 Time of Service: 09:03 Care Management Progress Note S/O: Bear was sitting up in bed when CM met with him. He informed CM that he is waiting to go back to surgery today. He stated that the surgeon is going to do another wash out of his knee and insert a spacer for the time being. When the infection has cleared completely, he will have a total knee replacement done. Bear continues to have pain in his left knee. PT was put on hold at this time and will resume post-operatively. CM again discussed nursing home antibiotics with Bear and will begin the process to determine if Bear would be an appropriate candidate for home infusions. A: Bear is a 70 year old man admitted on 06/10/21 with a knee infection P:Bear will likely be discharged home, likely with new home health services. A prolonged course of IV antibiotics will likely be required. Bear would prefer to receive the antibiotics at home if at all possible. He will follow up with his PCP and plan of care and transport with family. CM will continue to provide support to Bear and his discharge needs.
[2021-06-25] MEDS: Normal Saline Flush 10 ML SYR IVP ×2 (09:23→19:42)
--- NOTE | 2021-06-25 09:37 | PT.INNT ---
Date of service: 06/25/21 Time of Service: 09:37 PT Notes Visit Reasons: Knee Joint Infection 06/25/2021 Hold PT today, per provider, as patient is scheduled for procedure in OR later today. Will attempt to resume PT services when appropriate per provider.
[2021-06-25] MEDS: oxyCODONE 5 MG TAB PO ×2 (10:34→18:41)
[2021-06-25] MEDS: Gabapentin 100 MG CAP PO ×2 (13:14→19:41)
[2021-06-25] MEDS: Bupivacaine 0.25% Pres-Free 30 ML VIAL ×2 (13:17→17:00)
[2021-06-25] MEDS: Bupivacaine LIPOSOME/PF 133 MG/10 ML VIAL IJ (13:17)
--- NOTE | 2021-06-25 13:42 | ANES.PREOP_ITS ---
General Info Date of Service Date Performed: 06/25/21 Height: 6 ft 1 in Weight: 122 kg Body Mass Index (BMI): 35.4 Surgical Procedure: Operation Date: 06/11/21 17:55 Proposed Procedure Side Surgeon p Knee Arthroscopy w/Washout Left Alex Rice MD s I&D of LT Leg Alex Rice MD Actual Procedure Side Surgeon p Knee Arthroscopy w/Washout Left Alex Rice MD s I&D of LT Leg Alex Rice MD Pre-Op Diagnosis Post-Op Diagnosis Left leg abcess and left knee septic arthritis Left leg abcess and left knee septic arthritis Operation Date: 06/18/21 15:40 Proposed Procedure Side Surgeon p Knee Arthroscopy Irrigation and Debridement Left Aguilar Josue MD Actual Procedure Side Surgeon p Knee Arthroscopy with Knee & Leg Irrigation & Debridement & Antibiotic Bead Placement Left Aguilar Josue MD Pre-Op Diagnosis Post-Op Diagnosis Left Knee Joint Infection Left Knee Joint Infection Operation Date: 06/25/21 17:10 Proposed Procedure Side Surgeon p Knee Replacement Antibiotic Spacers, I&D Left Alex Rice MD Meds Allergies and Home Medications Allergies Allergy/AdvReac Type Severity Reaction Status Date / Time lisinopril Allergy Severe Anaphylaxis Unverified 06/10/21 10:26 varenicline tartrate Allergy Unknown Unverified 06/10/21 10:26 [From Chantix] hornet Allergy facial/throat Uncoded 06/10/21 10:26 swelling Home Medication Medication Instructions Recorded Nitrostat 0.4 mg sublingual tablet 0.4 mg SUBLINGUAL PRN PRN NS 03/01/13 (nitroglycerin) Viagra 50 mg tablet (sildenafil) 50 mg PO DAILY PRN tab-cap NS 03/01/13 epinephrine 0.3 mg/0.3 mL 0.3 mg IM PRN PRN NS 03/01/13 injection, auto-injector furosemide 20 mg tablet (Lasix) 20 mg PO QAM 09/07/18 insulin glargine 100 unit/mL (3 22 unit SUBCUT QPM 04/27/20 mL) subcutaneous pen (Lantus Solostar U-100 Insulin) montelukast 10 mg tablet 10 mg PO DAILY #30 tab 05/17/21 rosuvastatin 10 mg tablet 10 mg PO DAILY #30 tab 05/17/21 celecoxib 100 mg capsule 100 mg PO BID PRN 06/10/21 cetirizine 10 mg tablet 10 mg PO DAILY PRN 06/10/21 clopidogrel 75 mg tablet 75 mg PO DAILY 06/10/21 insulin aspart U-100 100 unit/mL 15 - 17 unit SUBCUT DIRECTED 06/10/21 (3 mL) subcutaneous pen (Novolog Flexpen U-100 Insulin aspart) levothyroxine 25 mcg tablet 25 mcg PO DAILY 06/10/21 magnesium oxide 400 mg PO BID 06/10/21 metoprolol tartrate 75 mg tablet 75 mg PO BID 06/10/21 metformin 500 mg tablet 500 mg PO BID 06/23/21 Current Visit Medications: Current Medications Generic Name Dose Route Start Last Admin Trade Name Freq PRN Reason Stop Dose Admin Acetaminophen 0 mg 06/10/21 13:11 06/24/21 17:32 Acetaminophen 325 Mg Tab PO 650 mg Q4H PRN PRN Administration Aspirin 325 mg 06/22/21 08:30 Aspirin 325 Mg Tab PO DAILY [facility] [place] Bisacodyl 10 mg 06/16/21 17:06 Bisacodyl 10 Mg Supp TX DAILY PRN PRN Cetirizine HCl 10 mg 06/11/21 08:30 06/25/21 09:16 Cetirizine 10 Mg Tab PO Not Given DAILY [facility] [place] Dextrose 0 gm 06/12/21 16:49 Glucose 40% Oral Solution 15 Gm/37.5 Gm Tube PO DIRECTED PRN Dextrose/Water 0 gm 06/12/21 16:49 Dextrose 50%-Water 25 Gm/50 Ml Syr IVP DIRECTED PRN Dimethicone/Zinc Oxide 0 gm 06/10/21 13:11 Medardo Protect Cream 142 Gm Tube TP PRN PRN Docusate Sodium 100 mg 06/18/21 14:00 06/25/21 13:14 Docusate Sodium 100 Mg Cap PO Not Given TID [facility] [place] Ephedrine Sulfate 0 mg 06/25/21 13:22 Ephedrine 25 Mg/5 Ml Syringe IVP DIRECTED PRN Fentanyl 0 mcg 06/25/21 13:22 Fentanyl 100 Mcg/2 Ml Vial IVP DIRECTED PRN Gabapentin 100 mg 06/16/21 14:00 06/25/21 13:14 Gabapentin 100 Mg Cap PO 100 mg TID SAI Administration Hydrocortisone 25 mg 06/24/21 20:00 06/25/21 09:25 Hydrocortisone 25 Mg Supp TX Not Given BID SAI Hydromorphone HCl 0 mg 06/25/21 13:22 Hydromorphone 2 Mg/Ml Vial IVP DIRECTED PRN Sodium Chloride 500 mls @ 0 mls/hr 06/12/21 10:40 06/18/21 03:30 Saline 500ml Bag IV Infused PRN PRN Infusion As Directed Cefazolin Sodium/Dextrose 2 gm in 50 mls @ 100 mls/hr 06/21/21 20:00 06/25/21 12:30 Ancef Duplex IVPB Infused Q8H SAI Infusion Dextrose/Sodium Chloride 1,000 mls @ 50 mls/hr 06/25/21 00:00 06/25/21 00:54 Dextrose 5%-Ns IV 50 mls/hr INFUSION SAI Administration Insulin Aspart 0 units 06/24/21 13:00 06/24/21 17:27 Insulin Aspart 300 Units/3 Ml Pen SC 8 units 0800,1200,1700 [facility] [place] Administration Insulin Aspart 0 units 06/25/21 00:00 06/25/21 11:56 Insulin Aspart 300 Units/3 Ml Pen SC 3 units Q6H SAI Administration Protocol Insulin Glargine 12 units 06/22/21 22:00 06/24/21 21:59 Insulin Glargine 300 Units/3 Ml Pen SC 12 units HS SAI Administration Levothyroxine Sodium 25 mcg 06/22/21 06:00 06/25/21 06:33 Levothyroxine 25 Mcg Tab PO 25 mcg DAILY@0600 SAI Administration Metoprolol Tartrate 75 mg 06/21/21 20:00 06/22/21 09:11 Metoprolol 50 Mg Tab PO 75 mg BID SAI Administration Montelukast Sodium 10 mg 06/11/21 08:30 06/25/21 09:16 Montelukast 10 Mg Tab PO Not Given DAILY [facility] [place] Naloxone HCl 0 mg 06/25/21 13:22 Naloxone 0.4 Mg/Ml Vial IVP PRN PRN Oxycodone HCl 5 - 10 mg 06/16/21 10:38 06/25/21 10:34 Oxycodone 5 Mg Tab PO 5 mg Q4H PRN PRN Administration Pantoprazole Sodium 40 mg 06/14/21 20:00 06/25/21 09:17 Pantoprazole 40 Mg Tabcr PO Not Given BID@0730,2000 SAI Polyethylene Glycol 17 gm 06/10/21 15:00 06/25/21 09:18 Polyethylene Glycol 3350 17 Gm Packet PO Not Given DAILY SAI Rosuvastatin Calcium 10 mg 06/11/21 08:30 06/25/21 09:18 Rosuvastatin 10 Mg Tab PO Not Given DAILY [facility]I Sennosides 1 tab 06/11/21 08:44 06/12/21 09:22 Senna Tab PO 1 tab BID PRN PRN Administration Sennosides 1 tab 06/16/21 22:00 06/24/21 21:58 Senna Tab PO 1 tab HS SAI Administration Sodium Chloride 0 ml 06/11/21 09:13 06/24/21 12:30 Normal Saline Flush 10 Ml Syr IVP 20 ml PRN PRN Administration Sodium Chloride 0 ml 06/12/21 20:00 06/25/21 09:23 Normal Saline Flush 10 Ml Syr IVP 20 ml BID SAI Administration Sucralfate 1 gm 06/14/21 11:30 06/25/21 10:14 Sucralfate 1 Gm Tab PO Not Given AC & HS SAI PFSH Active Problems Active Problems: Problem Status Onset Code Fall W19.XXXA MSSA bacteremia R78.81, B95.61 Cutaneous abscess of left knee L02.416 Septic arthritis of knee, left M00.9 DVT prophylaxis Z29.9 CKD (chronic kidney disease) N18.9 Acute anemia D64.9 Septic arthritis M00.9 Acute GI bleeding K92.2 CAD (coronary artery disease) I25.10 Acute kidney injury superimposed on CKD N17.9, N18.9 Closed left clavicular fracture 09/07/18 S42.002A Medical History Medical History Diabetes Heart attack Hypercholesterolemia Hypertension Lip swelling Tobacco Smoking/Tobacco Use Status: Former Tobacco Use Alcohol Alcohol Intake: current Alcohol intake frequency: 3 or more drinks per day Alcohol type: beer Substance Use Substance use type: does not use Vital Signs and Lab Results Vital Signs Most Recent Vital Signs in EMR: Most Recent Vital Signs Temp Pulse Resp BP Pulse Ox 36.6 C 84 18 115/67 98 06/25/21 13:29 06/25/21 13:29 06/25/21 13:29 06/25/21 13:29 06/25/21 13:29 Point of Care Results Point of Care Results: Finger Stick Blood Glucose 175 06/25/21 11:56 Lab Results Result Diagrams: 06/25/21 06:30 06/25/21 06:30 Blood Type / Crossmatch: Patient ABO/Rh A Positive 06/20/21 Antibody Screen NEGATIVE 06/20/21 Crossmatch See Detail 06/20/21 Complete Blood Count: White Blood Count 10.39 10^3/uL (4.4-10.8) 06/25/21 06:30 06/25/21 Red Blood Count 2.94 10^6/uL (4.36-5.78) L 06/25/21 06:30 06/25/21 Hemoglobin 8.2 g/dL (13.5-17.5) L 06/25/21 06:30 06/25/21 Hematocrit 27.3 % (40.0-50.0) L 06/25/21 06:30 06/25/21 Platelet Count 409 10^3/uL (130-400) H 06/25/21 06:30 06/25/21 Venous Blood Lactate 1.7 mmol/L (0.6-1.4) H 06/10/21 17:15 06/10/21 Complete Metabolic Panel: Sodium Level 135 mmol/L (136-145) L 06/25/21 06:30 06/25/21 Potassium Level 3.7 mmol/L (3.5-5.1) 06/25/21 06:30 06/25/21 Chloride Level 101 mmol/L (98-107) 06/25/21 06:30 06/25/21 Carbon Dioxide Level 27.7 mmol/L (21.0-32.0) 06/25/21 06:30 06/25/21 Blood Urea Nitrogen 17 mg/dL (7-18) 06/25/21 06:30 06/25/21 Creatinine 1.4 mg/dL (0.70-1.30) H 06/25/21 06:30 06/25/21 Estimated GFR/1.73 m2 50.25 (mL/min/1.73m2) 06/25/21 06:30 06/25/21 Magnesium Level 1.8 mg/dL (1.8-2.4) 06/25/21 06:30 06/25/21 Calcium Level 8.3 mg/dL (8.5-10.1) L 06/25/21 06:30 06/25/21 Albumin 1.4 g/dL (3.4-5.0) L 06/18/21 06:01 06/18/21 Glucose Level 159 mg/dL (74-106) H 06/25/21 06:30 06/25/21 Hemoglobin A1c 8.9 % (<5.7) H 06/20/21 06:07 06/20/21 C-Reactive Protein 10.75 mg/dL (0.0-0.3) H 06/23/21 06:00 06/23/21 Liver Function Panel: Alanine Aminotransferase (ALT/SGPT) 24 U/L (16-63) 06/18/21 06:01 06/18/21 Aspartate Amino Transf (AST/SGOT) 42 U/L (15-37) H 06/18/21 06:01 06/18/21 Coagulation Panel: No Data to Display Cardiac Panel: No Data to Display Arterial Blood Gas: No Data to Display Venous Blood Gas: Venous Blood pH 7.45 (7.31-7.41) H 06/10/21 10:25 06/10/21 Venous Blood Partial Pressure O2 26 mmHg 06/10/21 10:25 06/10/21 Venous Blood Partial Pressure CO2 38 mmHg (41-51) L 06/10/21 10:25 06/10/21 Venous Blood Oxygen Saturation 45 % 06/10/21 10:25 06/10/21 Venous Blood HCO3 27 mmol/L (23-28) 06/10/21 10:25 06/10/21 Venous Blood Base Excess 3 mmol/L (-2-3) 06/10/21 10:25 06/10/21 Venous Blood Total Carbon Dioxide 25 mmol/L (24-29) 06/10/21 10:25 Pancreas Panel: No Data to Display Thyroid Panel: No Data to Display Infectious Disease: Coronavirus (COVID-19)(PCR) Negative (Negative) 06/10/21 13:28 06/10/21 Coronavirus 2019 Source Nasal/Nares 06/10/21 13:06/10/21 Blood Cultures: No Data to Display Toxicology Panel: No Data to Display Imaging and Studies Imaging and Studies Study information below may be from another EMR and interpreted by another provider. Please see original notes in EMR for more complete details. EKG Summary: Conclusion Sinus rhythm...normal P axis, V-rate 60- 99 Sinus pause...long R-R interval, normal QRSd Sinus rhythm at 81, normal axis, non-specific ST changes, no STEMI, non- diagnostic EKG Echocardiogram Summary: 2019: LVEF 66%, grade 1 diastolic dysfunction, moderate AV sclerosis without stenosis, mildly dilated ascending thoracic aiota 3.8 cm. Anesthesia Assessment and Plan Anesthesia History Personal History: No History of Anesthesia Complications Family History: No Family History of Anesthesia Complications Exercise Tolerance Exercise Tolerance: Unknown Cardiac & Pulmonary Exam Cardiac Exam: Normal S1/S2 Heart Sounds Pulmonary Exam: Clear Bilateral Breath Sounds (Distant) Implantable Cardiac Device Does patient have a Pacemaker or an ICD?: No Airway Exam Known Difficult Airway: No Mallampati Class: 4 Mouth Opening: Normal (> 3cm) Thyromental Distance: Less than 3 cm Neck Range of Motion: Full ROM Neck Circumference: Normal Teeth Condition: Generalized Poor Dentition Airway Comments: 3 teeth, denies loose. ASA Classification ASA Score: ASA 3 Emergency Case?: No NPO Status NPO Status: NPO Clears >2 hours, Solids >8 hours Anesthesia Plan Resuscitation Status: Full Code Anesthesia Technique: Spinal Anesthesia Airway Planned: Natural Airway Pain Management: Intrathecal Analgesia Monitors Used: Standard Monitors and SedLine
[2021-06-25] MEDS: Normal Saline 1,000 ML 30 ML IV (15:04)
[2021-06-25] MEDS: Tranexamic Acid 1,000 MG/10 ML VIAL 1000 MG ×2 (15:15)
--- NOTE | 2021-06-25 17:25 | W.PM.PROGNOT ---
Date of Service Date of service: 06/25/21 Time of Service: 10:00 Assessment and Plan Assessment and plan (1) Septic arthritis of knee, left: Start date: 06/25/21 Start time: 10:00 Status: Acute Assessment and plan: Present on admission, due to MSSA. Negative blood cx on 06/19 PICC placed 06/21 Cefazolin 2 gm q 8 H Going to OR today NPO since MN Can resume diet after surgery, will check labs in am Lantus was halved for surgery, monitor FS and change FS back to AC&HS once patient is eating again. (2) Subacute osteomyelitis, left tibia and fibula: Start date: 06/25/21 Start time: 10:00 Status: Suspected Assessment and plan: as above OR today with Dr. Rice, likely washout with spacer placed, 6 months antibiotics with 6 weeks IV antibiotics (3) Cutaneous abscess of left knee: Start date: 06/25/21 Start time: 10:00 Status: Acute Assessment and plan: As above. He had 3 small areas in his knee with antibiotic beads however concern they have gotten worse. (4) MSSA bacteremia: Start date: 06/25/21 Start time: 10:00 Status: Acute Assessment and plan: blood cultures 4/2: MSSA. Blood cultures 4/3, 4/4 NGTD. Blood cultures 4/6: NGTD. Source - septic knee. Continue Ancef 2 gm IV q8h. TTE negative. May require DELISA. As above. (5) Acute anemia: Start date: 06/25/21 Start time: 10:00 Status: Acute Assessment and plan: Multifactorial, post-op as well as due to GI bleed and dilutional. No active bleeding. Hold all agents that would cause bleeding. He did have an episode of bright red blood, he does have internal hemorrhoids. Will sumeet anusol for this and monitor Continue to monitor Hgb 8.2 today (6) Acute kidney injury superimposed on CKD: Start date: 06/25/21 Start time: 10:00 Status: Acute Assessment and plan: Cr Stable. continue to monitor (7) DVT prophylaxis: Start date: 06/24/21 Start time: 11:20 Status: Acute Assessment and plan: All anticoagulants held d/t bleeding. as above discussed with Dr. Albarado Subjective Subjective Patient reports: other Interval history since last seen: Patient going to OR today. NPO since MN Exam Narrative Exam Narrative: General: Pleasant middle-aged male, A&Ox3, pale, but appears comfortable, lying in bed going to OR today HEENT: EOMI, MMM, poor dentition Heart: RRR, no m/r/g Lungs: CTAB Abdomen: soft, nontender, nondistended Rectum with hemorrhoids internally, Extremities: LLE more edematous than R doppler needed to hear sounds on left side, strong sounds pedal pulse, pain touch to foot he states it bothers his knee and he feels the pain just trying to remove the sock. TTP L tibial surface; L knee dressed; 2+ pedal pulses left with doppler Objective Last Vital Signs Temp 36.6 C 06/25/21 13:29 Pulse 84 06/25/21 13:29 Resp 18 06/25/21 13:29 BP 115/67 06/25/21 13:29 Pulse Ox 98 06/25/21 13:29 Laboratory Results - last 24 hr 06/25/21 06/25/21 06:30 06:30 WBC 10.39 RBC 2.94 L Hgb 8.2 L Hct 27.3 L MCV 92.9 MCH 27.9 MCHC 30.0 L RDW 15.1 H Plt Count 409 H MPV 8.8 Immature Gran % 0.5 Neutrophils % 78.4 Lymphocytes % 9.2 Monocytes % 9.2 Eosinophils % 1.7 Basophils % 1.0 Nucleated RBC % 0 Absolute Neutrophils 8.14 H Absolute Lymphocytes 0.96 L Absolute Monocytes 0.96 H Absolute Eosinophils 0.18 Absolute Basophils 0.10 Sodium 135 L Potassium 3.7 Chloride 101 Carbon Dioxide 27.7 Anion Gap 6.3 BUN 17 Creatinine 1.4 H Estimated GFR/1.73 m2 50.25 Glucose 159 H Calcium 8.3 L Magnesium 1.8
--- NOTE | 2021-06-25 17:34 | ROE_ITS ---
Operative Note Operative Note DATE OF PROCEDURE: 06/25/21 PRE-OP DIAGNOSIS: Left Leg Abscess, Left Proximal Tibia and Fibula Osteomyelitis, Left Knee Septic Arthritis POST-OP DIAGNOSIS: same PROCEDURE: Irrigation and Debridement of Left Leg including subcutaneous tissues, muscle and bone Open synovectomy and debridement of the left knee with placement of an antibiotic spacer with intramedullary rods SURGEON: Aelx Rice F[employer]IT[employer] SALES CONSULTANT: None None ANESTHESIA TYPE: Spinal Refer to Anesthesia Record ESTIMATED BLOOD LOSS: 200 PATHOLOGY: none sent TOURNIQUET TIME: 0 COMPLICATIONS: None Patient was transported to: PACU Patient's condition: stable Implants: Depuy Attune Size 8 CR Femoral Component Depuy Attune Size 8x10mm CR/RP Polyethylene Indications: Bear is a 71-year-old who had napaimute septic arthritis of the left knee along with a deep abscess of the left leg along with osteomyelitis. He has had 2 previous debridement with arthroscopic synovectomy of the knee. He had severe arthritis of the knee with exposed bone and with osteomyelitis seen on imaging. Given his persistent pain about the left knee I offered an open synovectomy debridement of the left knee with placement of an antibiotic spacer. I discussed the technical features of this case. I also reviewed the risk of the procedure. These included bleeding, pain, stiffness, damage to nerves and vessels, damage to muscles and tendons, failure, hardware instability, knee instability, recurrent infection, blood clot, fracture, need for repeat procedures. Findings: There is no gross purulence seen in the lateral left leg wound. There was significant space but once again no significant purulent material. The lateral antra compartments were entered and there is no necrotic tissue present. The deeper tissues were once again penetrated with a [place] and the surface of the lateral tibia, posterior tibia, and tib-fib joint along with the medial aspect of the fibula was debrided lightly with a [place]. I was unable to place a finger in the space and there is no gross purulence encountered. There was some soft bone of the posterior lateral tibia and the medial fibula. This was then irrigated with 3 L of normal saline. As for the left knee there was significant fluid within the knee but once again no significant purulence. An aggressive open synovectomy was performed removing all thickened synovial tissue. Standard cutting blocks were utilized to place a low friction spacer. The spacer included dowels in the intramedullary space of the tibia and the femur. Each 40 g batch of cement contained 2 g of vancomycin and 2.4 g of tobramycin. The spacer unfortunately seemed to compress at the time of implantation such that the flexion space was loosened. Knee was stable in extension but was somewhat loose in flexion however it was left as is and we will limit flexion. Procedure Description: Bear was greeted in the preoperative holding area where the correct side was identified and marked. The consent was reviewed with the patient and signed. The history and physical was updated. All questions were answered. An adductor canal block was then administered by the anesthesia team in the PACU. Bear was taken back to the operating room. A spinal anesthestic was then administered. The patient was placed into the supine position on the operating room table. A nonsterile tourniquet was placed high onto the leg but eventually not used. Posts were placed for positioning during the procedure. All bony prominences were well padded. Prophylactic antibiotics was administered. 1g of Tranxemic Acid was given intravenously within 30 minutes of incision. The left leg was then prepped with Chloraprep and draped in a standard fashion with impervious stockinette and extremity drape breathing space around the lateral leg wound. A timeout to confirm correct identity, side and site, procedure, allergies, anesthesia, and medical concerns was performed. Attention was first turned to the lateral, proximal leg abscess. The previous incision was incised. There was minimal fluid and no purulence. This was taken down deeply with blunt dissection with the finger. The space within the ante rior and lateral compartments was identified. Using a freer, I then entered the deeper space against the tibia, deep posterior compartment, and ran the [place] against the bone of the tibia, posterior laterally, as well as against the fibula and into the proximal tib-fib joint. I did this with the [place] gently as well as with a finger as to not disrupt any of the vasculature which would be passing just distal to this. There is no gross purulence encountered. The bone did feel soft in this area and I did roughen it with the freer. Once this was fully inspected and there is no additional necrotic materia or purulent material encountered, I proceeded with a thorough irrigation with 3 L of normal saline. Once this was completed the subcutaneous tissues were reapproximated with a 0 and a 2-0 PDS suture. Attention was then turned the knee. With the knee in some flexion, a midline incision was made overlying the knee staying medial to separate incisions. Full thickness skin flaps were raised once the extensor mechanism was encountered. These were raised medially and laterally. Any bleeding was controlled with electrocautery. Once the extensor mechanism was fully exposed, a medial parapatellar arthrotomy was performed in a flexed position. All bleeding from the arthrotomy and the geniculate arteries was coagulated. A thorough synovectomy was then performed using 2 Allis and 2 Kochers. Synovectomy was performed throughout the entirety of the knee into the suprasellar space and around medial lateral gutters. A medial subperiosteal peel was performed with electrocautery to the midcoronal plane. The fat pad was removed while keeping the patellar tendon protected. The anterior distal femur synovium was removed for later visualization. The ACL and PCL were resected and the anterior horn of the lateral meniscus was transected. The knee was then flexed with the patella everted. There was not significant arthritis of the patella. I did perform an aggressive synovectomy and electrocautery around the periphery of the patella at this time. On the back table at this time the bowels were prepared. This was done by using 1 batch of cement formed around a threaded Steinmann pin. The estimated diameter was 7 mm to correspond to the opening reamer utilized in the femur and to be used in the tibia. The cement was mixed without vacuum assistance and with 2 g of vancomycin and 2.4 g of tobramycin. Using a step drill the femoral canal was entered. This was done with a step drill without any difficulty. The intramedullary distal femoral cut guide was inserted, set to a 5 degree valgus cut and 9 mm cut thickness. The distal femoral cut guide was then held in position and pinned. With the soft tissues protected, the distal cut was performed. This was passed over a few times to ensure a planar cut. I then turned attention to the tibia. The extramedullary guide was placed onto the leg. The distal aspect was slid medial to adjust for position of center of ankle and stay in line with shaft of the tibia. Approximately 3-5 degrees of posterior slope was kept in the proximal cutting guide. The center of the guide was aligned with the PCL. The stylus was used to assess cut thickness. The medial side, most involved side, was set for a 6mm cut. This was then held in position and pinned into place with 2 additional pins and a cross pin for stability. The medial and lateral collateral ligaments were protected and the cut was performed. With this completed, it was assessed and noted to be of appropriate dimensions. The guide was removed. A spacer block was inserted and the knee was brought into extension. The 10mm spacer block provided full extension, without hyperextension and with stability of both the medial and lateral collateral ligaments was assessed. The pins from the femur and the tibia were then removed. The distal femur was then sized. The anterior stylus was placed onto the lateral ridge of the anterior femur. This indicated a size 8 femur. The external rotation of the guide was adjusted to 3 degrees to match the epicondylar axis, perpendicular to Porter?s line. The 4-in-1 cutting guide was the placed. The posterior medial femur cut was evaluated and appeared of good thickness. The spacer block was inserted underneath the cutting guide and stability was confirmed in 90 degrees of flexion. An shamir wing was used to confirm appropriate position of the anterior cut to avoid notching. This cutting guide was ensured to be flush on the cut surface and then pinned into place with headed pins. While protecting the soft tissues, quad tendon, and collateral ligaments, the anterior and posterior cuts were performed with a saw. The central two pins were removed and the posterior and anterior chamfers were cut next. The notch-cutting guide was placed. This was pinned to lateralize the femoral component as much as possible while keeping it flush on the cut surface. This was then pinned into position. A reciprocating saw was used to make the small notch cut. A trial CR femoral component was then inserted, impacted down to the cut surfaces, and the lug holes were drilled. A provisional trial tibial component was placed and the knee was brought through range of motion. There was noted to be excellent extension and flexion. There was no significant instability. The polyethylene was trialed until there was good flexion and extension with excellent stability to the medial and lateral collaterals. The patella was tracking with some lateral tilt but without thumbs. The tibial cut surface was fully exposed. The medial and lateral menisci were removed. The tibia was then sized as a 7. The tibia had been previously marked during trialing to correspond to the center of the tibial component to help with rotation. The trial was aligned to this mary, approximately rotated to the medial 1/3rd of the tibial tubercle. The trial was pinned into place. The tibia was prepared with a reamer and a keel punch. The trial components were removed. The polyethylene and the femoral component were then opened on the back table. At this point the scrub had changed her gloves. I continue to irrigate the left knee with 3 L of normal saline. All debridements were then completed and a dirty table was passed off. Only new instruments at this point were utilized and new drapes were applied around the knee. The entire team changed gloves at this time. Steinmann pins were then cut just prominent of the cement. There were then placed into the femoral and tibial canals and left slightly prominent to be pushed in place with the cementing procedure. On the back table, with the implants opened, the cement was mixed. 2 batches of high viscosity cement were prepared with additional antibiotics, 4 g of vancomycin and 4.8 g of tobramycin. Cement was manual pressurized and impregnated into the cut surface of the tibia. The tibial component was then inserted into the cut surface and manually impacted into position. Excess cement was removed. The goal was to keep this tibia approximately 2 to 3 mm proud allow for excess cement and to fill the space not occupied by the metal component. The femoral cut surface was once again dried and cement was manually impacted into the cut surface. The femoral component was lined with the lug holes and impacted. Excess cement was removed. It was ensured to be down against the cut surface. While the cement was hardening, the knee was irrigated with surgery for Betadine solution. It was allowed to sit in the knee for 3 min utes and then it was thoroughly irrigated with saline. I also injected the soft tissues around the knee with 50cc 0.25% bupivacaine. After the cement had finally cured, approximately 15min, the knee was taken through range of motion. The knee had stability with less than 2mm gapping with medial and lateral stress and full extension without significant hyperextension however the flexion gap did open up with approximately 5 to 6 mm of gapping both medially and laterally. At this point, it was determined to leave this in place and potentially limit his flexion to less than 90 degrees. Patella was tracking with a no-thumbs technique. The knee was once again inspected for any errant cement or any other debris which need to be removed prior to closure. The capsule was then reapproximated with a No. 1 antibiotic PDS at multiple locations. The capsule was finally closed with a No. 2 Stratafix, barbed suture. The tourniquet was then released and the arthrotomy appeared watertight without significant bleeding. The second dosing of 1g TXA was started. Deep tissues were then reapproximated with 0 PDS and 2-0 PDS. The skin was closed with michael. A Mepilex silver dressing was applied along with a [id number] CHAO wrap. Bear was transferred to the hospital bed and eventually upstairs to the [facility] floor without any complications. He had adequate pain control and was awake for majority the procedure. His prognosis is guarded. He is showing signs of improvement in this procedure should allow further medication of infection but also improve his mobility and decrease his pain. He will be weightbearing as tolerated on the left knee with assistive device at all times. I would limit deep flexion to less than 90 degrees due to his potential flexion instability.
[2021-06-25] MEDS: Sucralfate 1 GM TAB PO ×2 (18:42→22:49)
[2021-06-25] MEDS: Docusate Sodium 100 MG CAP PO (19:41)
[2021-06-25] MEDS: Pantoprazole 40 MG TABCR PO (19:41)
[2021-06-25] MEDS: HYDROmorphone 2 MG/ML SYR 1 MG IVP (19:42)
--- NOTE | 2021-06-25 19:45 | W.ANESPOSTOP ---
Postoperative Evaluation Date, Time and Location Date Performed: 06/25/21 Time Performed: 19:05 Patient Location: Med/Surg Vital Signs Most Recent Imported Vital Signs: Most Recent Vital Signs Temp Pulse Resp BP Pulse Ox 37.5 C 98 H 20 140/73 93 06/25/21 19:00 06/25/21 19:00 06/25/21 19:00 06/25/21 19:00 06/25/21 19:00 Most Recent Vital Signs Temp Pulse Resp BP Pulse Ox 36.8 C 87 22 116/54 L 95 06/18/21 17:20 06/18/21 17:20 06/18/21 17:20 06/18/21 17:20 06/18/21 17:20 Most Recent Vital Signs Temp Pulse Resp BP Pulse Ox 36.5 C 87 14 104/52 L 95 06/11/21 08:00 06/11/21 12:30 06/11/21 12:30 06/11/21 12:30 06/11/21 12:30 Pain Score Most Recent Pain Score: Most Recent Pain Score Pain Level [Left Knee] 6 06/22/21 13:12 Pain Level 5 06/25/21 19:42 Assessment Mental Status: Awake (Alert & Oriented to Patient Baseline) Airway and Respiratory Function: Patent airway with normal (patient baseline) respiratory exam Cardiovascular Function: Hemodynamically Stable Hydration Status: Adequately Hydrated Nausea & Vomiting: No Nausea or Vomiting Pain: Pt. Denies Any Pain Peripheral Nerve Block: Regional nerve block not resolved at time of post operative discharge
[2021-06-25] MEDS: Acetaminophen 325 MG TAB PO (20:32)
[2021-06-25] MEDS: Senna TAB 1 TAB PO (22:49)
[2021-06-25] MEDS: Insulin Glargine 300 UNITS/3 ML PEN 12 UNITS SC (22:49)
[2021-06-26] VITALS (8 sets, daily range): BP systolic 91–116; BP diastolic 56–72; PULSE 65–110; RESP 18–26; TEMP 37–38.7; O2SAT 92–95
[2021-06-26] MEDS: ceFAZolin 2 GM/50 ML BAG IVPB ×3 (04:18→19:59)
[2021-06-26] MEDS: Levothyroxine 25 MCG TAB PO (05:49)
[2021-06-26 06:29] LABS: Abs Immature Grans 0.08 10^3/uL (0.0-0.06); Absolute Eosinophil Count 0.01 10^3/uL (0.0-0.7); Absolute Lymphocyte Count 0.96 10^3/uL (1.2-3.4); Absolute Monocyte Count 1.81 10^3/uL (0.1-0.8); Absolute Neutrophil Count 12.01 10^3/uL (1.2-6.7); Basophils % 0.7; Eosinophils % 0.1; HCT 24.7 % (40.0-50.0); HGB 7.6 g/dL (13.5-17.5); Immature Grans % 0.5; Lymphocytes % 6.4; MCHC 30.8 % (32.0-36.0); MCV 91.1 fL (80-95); MPV 8.6 fL (8.0-11.0); Monocytes % 12.1; Neutrophils % 80.2; Nucleated RBC 0 %; Platelet Count 423 10^3/uL (130-400); RBC 2.71 10^6/uL (4.36-5.78); RDW-SD 49.6 fL; WBC 14.97 10^3/uL (4.4-10.8)
[2021-06-26] MEDS: oxyCODONE 5 MG TAB PO ×3 (06:31→23:50)
[2021-06-26 06:40] LABS: Anion Gap 7.9 mmol/L (3-11); BUN 19 mg/dL (7-18); CO2 28.1 mmol/L (21.0-32.0); CREATININE 1.5 mg/dL (0.70-1.30); Calcium 7.9 mg/dL (8.5-10.1); Chloride 100 mmol/L (98-107); Glucose 142 mg/dL (74-106); Magnesium 1.7 mg/dL (1.8-2.4); Potassium 4.1 mmol/L (3.5-5.1); Sodium 136 mmol/L (136-145)
[2021-06-26 07:25] LABS: Diff Comment Diff Reviewed; Hypochromasia 1+
[2021-06-26] MEDS: Polyethylene Glycol 3350 17 GM PACKET PO (08:19)
[2021-06-26] MEDS: Pantoprazole 40 MG TABCR PO ×2 (08:24→19:58)
[2021-06-26] MEDS: Gabapentin 100 MG CAP PO ×3 (08:24→19:59)
[2021-06-26] MEDS: Sucralfate 1 GM TAB PO ×4 (08:24→22:13)
[2021-06-26] MEDS: Docusate Sodium 100 MG CAP PO ×3 (08:24→19:58)
[2021-06-26] MEDS: Hydrocortisone 25 MG SUPP PR (08:24)
[2021-06-26] MEDS: Acetaminophen 325 MG TAB PO ×3 (08:25→23:50)
[2021-06-26] MEDS: Montelukast 10 MG TAB PO (08:25)
[2021-06-26] MEDS: Cetirizine 10 MG TAB PO (08:25)
[2021-06-26] MEDS: Rosuvastatin 10 MG TAB PO (08:25)
[2021-06-26] MEDS: Insulin Aspart 300 UNITS/3 ML PEN SC ×6 (08:27→22:16)
[2021-06-26] MEDS: Normal Saline Flush 10 ML SYR IVP ×3 (08:28→20:02)
[2021-06-26] MEDS: HYDROmorphone 2 MG/ML SYR 1 MG IVP ×2 (09:22→17:03)
--- NOTE | 2021-06-26 09:45 | W.ANESNERVE ---
Nerve Block Single Injection Procedure Date and Time Date Performed: 06/25/21 Procedure Start: 13:17 Location Where Procedure Performed Procedure Location: PACU Reason Performed: Postoperative Analgesia Requesting Provider: Alex Rice Timeout Performed Timeout Performed: Yes Monitoring Used ECG, Blood Pressure and SpO2 Sterility Sterility: Hand Hygiene, Surgical Cap, Surgical Mask, Sterile Gloves, Sterile Drape/Sheet, Sterile Gown and Chlorhexidine Sedation Given During Procedure Sedation Given (Indicate Dose Given): No Sedation given Patient Mental Status Patient Mental Status: Awake Nerve Block 1st Nerve Block: Laterality: Left Block Type: Adductor Canal Needle / Catheter Used: 100mm SonoPlex II Local Anesthetic Bolus (Indicate Dose Given): Lidocaine used for local infiltration of skin, Injected in 3-5ml increments after negative blood aspiration, Bupivacaine 0.25% Dose:: 15mL and Exparel Dose:: 10mL Additives (Indicate Dose Given): None Ultrasound: Sterile probe cover and gel used Ultrasound Image Saved?: Yes Nerve Stimulator: Not Used Paresthesia: None Procedure Tolerated: No Complications Procedure Outcome: Successful Performed By: Dorinda Daugherty
[2021-06-26] MEDS: Ferrous Sulfate 325 MG TAB PO ×2 (10:29→19:58)
--- NOTE | 2021-06-26 10:54 | CMPROGNOTE_ITS ---
- If Service Date Differs Date of service: 06/26/21 Time of Service: 10:54 Care Management Progress Note S/O: Bear was sitting up in bed when CM met with him. His mother, sister and fiancee all visited Bear today and he appeared to enjoy their company. Bear seemed to be in better spirits today. He admitted to being tired and sore from the surgery yesterday but did stand by the side of his bed with PT today. Bear continues to have low grade fevers and his WBC liza to 14.97 today from 10.39 y esterday. He will continue to require IV antibiotics for the next several weeks. While not happy about the circumstances, Bear has shared that he is resigned to the fact that he will likely need to remain in the hospital for quite some time. A: Bear is a 70 year old man admitted on 06/10/21 with a knee infection P:Bear will likely be discharged home, likely with new home health services. A prolonged course of IV antibiotics will likely be required. Bear would prefer to receive the antibiotics at home if at all possible. He will follow up with his PCP and plan of care and transport with family. CM will continue to provide support to Bear and his discharge needs.
--- NOTE | 2021-06-26 11:13 | CHAPLAIN ---
Bear was resting in bed when I visited. He told me about his surgery yesterday to clean out his knee and take out some bone fragments. He hasn't been up walking yet, but expects that PT will be to see him later today and have him walk. Bear continues to have visits from his fiance, sister and daughter.
--- NOTE | 2021-06-26 11:14 | PGE_ITS ---
Date of Service Date of service: 06/26/21 Time of Service: 11:14 Assessment and Plan Assessment and plan (1) Septic arthritis of knee, left: Status: Acute Assessment and plan: Present on admission, due to MSSA. Negative blood cx on 06/19 but a new set pending from today for fevers post washout. PICC placed 06/21 Cefazolin 2 gm q 8 H lactobacillus daily pain management bowel management OR yesterday for irrigation and debridement of left leg including subcutaneous tissues, muscle and bone Open synovectomy and debridement of the left knee with placement of an antibiotic spacer with intramedullary rods max temp overnight of 38.0 white count up to 14 blood cultures re-drawn (2) Subacute osteomyelitis, left tibia and fibula: Status: Suspected Assessment and plan: as above, pod day 1 washout with spacer placed, 6 months antibiotics with 6 weeks IV antibiotics (3) Cutaneous abscess of left knee: Status: Acute Assessment and plan: As above. (4) MSSA bacteremia: Status: Acute Assessment and plan: blood cultures 06/15: MSSA. Blood cultures 06/16, 06/17 NGTD. Blood cultures 06/19: NGTD. another set drawn today in setting of new fever. results pending. Source - septic knee. Continue Ancef 2 gm IV q8h. TTE negative. May require DELISA. As above. (5) Acute anemia: Status: Acute Assessment and plan: Multifactorial, post-op as well as due to GI bleed and dilutional. No active bleeding. Hold all agents that would cause bleeding. He did have an episode of bright red blood, he does have internal hemorrhoids. Will sumeet anusol for this and monitor Continue to monitor Hgb down from 8.2 to 7.6 today continue carafate, PPI and iron supplementation. (6) Acute kidney injury superimposed on CKD: Status: Acute Assessment and plan: Cr Stable. continue to monitor (7) Diabetes mellitus type 2 in obese: Status: Acute Assessment and plan: last A1C 8.9 blood sugar 187-217 continue sliding scale coverage AC/HS is on 1/2 dose of his home lantus while hospitalized metformin on hold. (8) Hypothyroidism: Status: Chronic Assessment and plan: TSH in April was 2.26 will continue home levothyroxine dose (9) DVT prophylaxis: Status: Acute Assessment and plan: All anticoagulants held d/t bleeding. as above discussed with Dr. Albarado Exam Const General: cooperative, no acute distress, frail appearing and ill appearing chronically Nutritional Appearance: average body habitus Orientation: alert, awake and oriented x3 [facility] Head: normal to inspection, normocephalic and atraumatic Mouth: oral mucosae normal Neck Neck: normal visual inspection Chest Chest: normal inspection of the chest Resp Effort & Inspection: normal respiratory effort Auscultation: clear to auscultation bilaterally Cardio Rate: regular rate Rhythm: regular rhythm GI Inspection: normal to inspection Palpation: soft Auscultation: normal bowel sounds Skin Lesions: other (no visualized, dressing dry and intact. ) Rashes: no rashes Neuro General: patient alert, patient awake and patient oriented x3 Extrem General: edema (left > right) Objective Last Vital Signs Temp 37.9 C H 06/26/21 08:25 Pulse 85 06/26/21 08:10 Resp 18 06/26/21 08:10 BP 116/62 06/26/21 08:10 Pulse Ox 95 06/26/21 08:10 Laboratory Results - last 24 hr 06/26/21 06/26/21 06:00 06:00 WBC 14.97 H D RBC 2.71 L Hgb 7.6 L Hct 24.7 L MCV 91.1 MCH 28.0 MCHC 30.8 L RDW 15.0 H Plt Count 423 H MPV 8.6 Immature Gran % 0.5 Neutrophils % 80.2 Lymphocytes % 6.4 Monocytes % 12.1 Eosinophils % 0.1 Basophils % 0.7 Nucleated RBC % 0 Absolute Neutrophils 12.01 H Absolute Lymphocytes 0.96 L Absolute Monocytes 1.81 H Absolute Eosinophils 0.01 Absolute Basophils 0.10 RBC Morphology See Below Hypochromasia 1+ Sodium 136 Potassium 4.1 Chloride 100 Carbon Dioxide 28.1 Anion Gap 7.9 BUN 19 H Creatinine 1.5 H Estimated GFR/1.73 m2 46.40 Glucose 142 H Calcium 7.9 L Magnesium 1.7 L
--- NOTE | 2021-06-26 15:37 | INPN_ITS ---
Date of service: 06/26/21 Time of Service: 15:37 PT Notes Visit Reasons: Knee Joint Infection Physical Therapy Inpatient Progress Note Date: 06/19/2021 Dates of service: 06/20/2021 through 06/26/2021 Referring Doctor: Nav Albarado MD PT Orders: PT CONSULT: Eval/treat Precautions: Fall. Standard.? Weight bearing as tolerated on the left LE with AD. Subjective: Agreeable to PT session.? Okay with getting out of bed. Reports 8- 9/10 pain in the left LE with weight bearing.? Objective: General Observation: Wound dressing to left LE.? IV through right UE. Mental Status: Alert and oriented as to person, place, time, and purpose. Able to pay attention, focus, and respond appropriately. Pain: 8-9/10 in the morning and 6/10 in the left LE with weightbearing Vital Signs: systolic BP in the low 90s and distaolic BP in the low 50s; febrile at 101.8 F ROM: Right Upper Extremity: ? Shoulder Flexion WFL. Shoulder abduction WFL. Elbow flexion WFL. Wrist flexion WFL. Functional opening and closing of hand WFL. Left Upper Extremity:? Shoulder Flexion WFL. Shoulder abduction WFL. Elbow flexion WFL. Wrist flexion WFL. Functional opening and closing of hand WFL. Right Lower Extremity: Hip flexion WFL. Hip abduction WFL. Knee flexion WFL. Ankle dorsiflexion WFL. Ankle plantarflexion WFL. Left Lower Extremity: Able to slide left heel to about 10-20 degrees of knee flexion and hip flexion while in bed.? Able to slide R LE out to about 10 degrees. Needed assistance with moving left LE with sliding to the side for supine to sit. Strength: Right Upper Extremity: Shoulder flexors 4/5. Shoulder abductors 4/5. Elbow flexors 5/5. Elbow extensors 5/5. Delinquent Account Clerk strong. Left Upper Extremity: Shoulder flexors 4/5. Shoulder abductors 4/5. Elbow flexors 5/5. Elbow extensors 5/5. Delinquent Account Clerk strong. Right Lower Extremity: Hip flexors 5/5. Hip abductors 5/5. Knee flexors 5/5. Knee extensors 5/5. Ankle dorsiflexors 5/5. Ankle plantarflexors 5/5. Left Lower Extremity: Grossly 2-/5 Bed Mobility/Transfers: Nurse Tamy and JEREMIAH Sy assisting for safety Supine to sit with minimal assist of 2 to left LE with cues for safe/correct technique Sit to stand with moderate assist of 2 with moderate cues for safe/correct technique. Unable to fully straightne at the knee due to pain. Stand to sit with moderate assist of 2 with moderate cues for safe/correct technique Bed to reclining chair unable due to pain Gait: Instructed patient with level surface ambulation of 2-3 steps requiring assist of 3.? Gait considerably antalgic.? Unable to fully weight-bear on left LE due to pain of up to 8-9/10.? Nurse Tamy aware and managing.? Balance: Static Sitting: Good Dynamic Sitting: Good Static Standing: Poor Dynamic Standing: Poor Special Tests: Mobility Limitations Standardized Measure [facility]-PAC 6 clicks Basic Mobility Inpatient Short Form: Raw Score: 9? CMS Score: 81% deficit? ? ? Informed Consent/Education:? Patient was instructed in purpose of PT consult and plan of care. Agreeable to proceed with established PT POC to achieve personal goals. Assessment: Deficit score increased due to pain level. Required extensive assist of 3 with bedside commode to bed transfer due to increased pain and fatigue. Low edurance, needs frequent rests. Pain level continues to limit ability to perform transfers and ambulation, highly favors the L LE.? Will need to continue to work with nurse for pre-medication for pain. ? Patient presents with clinical signs and symptoms consistent with current/admitting diagnoses that have resulted to mobility limitations, gait instability, generalized weakness, and overall ADL decline as demonstrated by the following impairment level findings: 1.? Decreased strength to left LE major muscle groups 2.? Impaired sitting/standing balance 3.? Impaired activity tolerance 4.? Limitation of joint range of motion in L knee joint 5. Pain in the L knee/L LE Impairments are contributing to the following functional limitations: 1.? Decline in bed mobility skills 2.? Decline in transfer skills 3.? Difficulty with ambulation without assistive device and physical assistance 4.? Increased completion time for mobility ADL performance 5.? Increased risk for falls 6.? Difficulty with managing steps alone safely Patient is assessed [place] a 75998 moderate complexity based on the following: History: 70-year-old male with past medical history as indicated above Examination: Demonstrable impairment in strength, balance, and mobility level with underlying impairments and functional limitations as exhibited above as well as deficit score of 47% utilizing the [facility] Mobility Inpatient Short Form Presentation: Evolving Decision Makin moderate complexity Goals: Goals X1 week 1. Supine-Sit independent NOT MET, CONTINUE 2. Sit-Supine independent NOT MET, CONTINUE 3. Sit-Stand independent NOT MET, CONTINUE 4. Stand-Sit independent with FWW NOT MET, CONTINUE 5. Bed-Chair independent with FWW NOT MET, CONTINUE 6. Chair-Bed independent with FWW NOT MET, CONTINUE 7. Independent gait on level surface with use of FWW for at least 300 feet without report of pain nor dyspnea NOT MET, CONTINUE 8. Independent stair negotiation while holding onto B rails for at least 5 steps without report of pain nor dyspnea NOT MET, CONTINUE 9. Independent with home exercise program NOT MET, CONTINUE 10. Good static and dynamic standing balance/tolerance NOT MET, CONTINUE Plan of Care/Treatment Plan: 1-2x/day, 7 days/week x 1 week. Plan of care has been reviewed with the CERTIFIED NURSING ATTENDANT providing the service under Physical Therapy direction. Initiate Physical Therapy intervention for pain management as needed, strengthening, bed mobility, transfers, gait, stairs, balance training, and use of assistive device. DISCHARGE RECOMMENDATIONS: [] ? Home with no services [] [] ? Home with services [specify]? [] ? Home with outpatient PT [] [X] ? SNF for continued rehabilitation.? Patient will benefit from halfway facility placement for continued skilled physical therapy services in order to progress mobility level, strength, and balance in preparation for a safe discharge to home. [] ? Retirement Care [] [] ? SNF versus LTC based on ability to participate and progress [] TREATMENT CODE/TIME: 89173 x 57 minutes beginning at 15:37 PM. Thank you for the opportunity to participate in the care of this patient. Barb Araiza PT, DPT, CLT [facility] [place], [place]
--- NOTE | 2021-06-26 21:11 | W.PM.PROGNOT ---
Date of Service Date of service: 06/26/21 Time of Service: 12:50 Assessment and Plan Assessment and plan (1) Septic arthritis of knee, left: Status: Acute Assessment and plan: Bear is a 71-year-old who has septic arthritis of the left knee along with deep space abscesses including osteomyelitis about the left tibia and fibula proximal leg. He is status post open synovectomy debridement of the left knee with an antibiotic spacer placement in addition to debridement of the deep spaces and the proximal tibia and fibula. It will take a few days for him to hopefully have some relief of pain about the left knee given the amount of surgery performed. However, the health of the wound actually was quite good and I expect things to continue to improve. We should slowly start working on mobilization with a focus on knee extension. It will be painful but we have to get this knee moving. Continue to follow his inflammatory markers in the hope that he may start having some improvement his ambulation in the coming days. (2) Subacute osteomyelitis, left tibia and fibula: Status: Suspected (3) Cutaneous abscess of left knee: Status: Acute Subjective Subjective Interval history since last seen: Bear continues to have some pain and low grade fevers. He does feel that it is better than before. No issues with the wounds. He reports this being quite tired. He has very low energy. Exam Narrative Exam Narrative: Asleep in the bed. He does awaken and answers appropriately. Evaluation of the left leg shows a clean and dry and intact dressing. He does once again hold the leg at about 45 degrees of flexion and exhibits significant posterior knee pain with attempted flexion and extension. He does have weak great toe extension but intact ankle dorsiflexion. Objective Last Vital Signs Temp 38.0 C H 06/26/21 20:17 Pulse 89 06/26/21 20:17 Resp 20 06/26/21 20:17 BP 115/68 06/26/21 20:17 Pulse Ox 94 06/26/21 20:17 Laboratory Results - last 24 hr 06/26/21 06/26/21 06:00 06:00 WBC 14.97 H D RBC 2.71 L Hgb 7.6 L Hct 24.7 L MCV 91.1 MCH 28.0 MCHC 30.8 L RDW 15.0 H Plt Count 423 H MPV 8.6 Immature Gran % 0.5 Neutrophils % 80.2 Lymphocytes % 6.4 Monocytes % 12.1 Eosinophils % 0.1 Basophils % 0.7 Nucleated RBC % 0 Absolute Neutrophils 12.01 H Absolute Lymphocytes 0.96 L Absolute Monocytes 1.81 H Absolute Eosinophils 0.01 Absolute Basophils 0.10 RBC Morphology See Below Hypochromasia 1+ Sodium 136 Potassium 4.1 Chloride 100 Carbon Dioxide 28.1 Anion Gap 7.9 BUN 19 H Creatinine 1.5 H Estimated GFR/1.73 m2 46.40 Glucose 142 H Calcium 7.9 L Magnesium 1.7 L
[2021-06-26] MEDS: Senna TAB 1 TAB PO (22:14)
[2021-06-26] MEDS: Insulin Glargine 300 UNITS/3 ML PEN 12 UNITS SC (22:14)
[2021-06-27] VITALS (7 sets, daily range): BP systolic 125–143; BP diastolic 68–77; PULSE 90–94; RESP 15–16; TEMP 36.8–38.8; O2SAT 91–97
[2021-06-27] MEDS: ceFAZolin 2 GM/50 ML BAG IVPB ×3 (04:30→20:43)
[2021-06-27] MEDS: Levothyroxine 25 MCG TAB PO (05:25)
[2021-06-27 06:51] LABS: Abs Immature Grans 0.09 10^3/uL (0.0-0.06); Absolute Basophil Count 0.09 10^3/uL (0.0-0.2); Absolute Eosinophil Count 0.06 10^3/uL (0.0-0.7); Absolute Lymphocyte Count 0.95 10^3/uL (1.2-3.4); Basophils % 0.6; Eosinophils % 0.4; HGB 7.2 g/dL (13.5-17.5); Immature Grans % 0.6; Lymphocytes % 6.5; MCH 27.7 pg (27.0-33.0); MCV 92.3 fL (80-95); MPV 8.5 fL (8.0-11.0); Monocytes % 10.3; Neutrophils % 81.6; Nucleated RBC 0 %; Platelet Count 399 10^3/uL (130-400); RDW 14.8 % (11.8-14.1); RDW-SD 50.4 fL; WBC 14.59 10^3/uL (4.4-10.8)
[2021-06-27 06:55] LABS: Absolute Neutrophil Count 11.91 10^3/uL (1.2-6.7)
[2021-06-27 07:05] LABS: Anion Gap 8.1 mmol/L (3-11); BUN 19 mg/dL (7-18); CO2 26.9 mmol/L (21.0-32.0); CREATININE 1.6 mg/dL (0.70-1.30); Calcium 7.9 mg/dL (8.5-10.1); Chloride 98 mmol/L (98-107); Estimated GFR 43.07 (mL/min/1.73m2); Glucose 158 mg/dL (74-106); Sodium 133 mmol/L (136-145)
[2021-06-27] MEDS: oxyCODONE 5 MG TAB PO ×2 (08:11→21:48)
[2021-06-27] MEDS: Polyethylene Glycol 3350 17 GM PACKET PO (08:11)
[2021-06-27] MEDS: Montelukast 10 MG TAB PO (08:11)
[2021-06-27] MEDS: Sucralfate 1 GM TAB PO ×4 (08:12→21:48)
[2021-06-27] MEDS: Gabapentin 100 MG CAP PO ×3 (08:12→20:44)
[2021-06-27] MEDS: Rosuvastatin 10 MG TAB PO (08:12)
[2021-06-27] MEDS: Cetirizine 10 MG TAB PO (08:12)
[2021-06-27] MEDS: Pantoprazole 40 MG TABCR PO ×2 (08:13→20:43)
[2021-06-27] MEDS: Insulin Aspart 300 UNITS/3 ML PEN SC ×7 (08:13→21:48)
[2021-06-27] MEDS: Docusate Sodium 100 MG CAP PO ×3 (08:13→20:43)
[2021-06-27] MEDS: Ferrous Sulfate 325 MG TAB PO ×2 (08:13→20:43)
[2021-06-27] MEDS: Normal Saline Flush 10 ML SYR IVP ×3 (08:16→20:44)
--- NOTE | 2021-06-27 09:32 | W.PM.PROGNOT ---
Date of Service Date of service: 06/27/21 Time of Service: 11:00 Assessment and Plan Assessment and plan (1) Fever: Status: Acute Assessment and plan: POD 2 of wash out with negative blood culture so far from yesterday came to nursing attention that family who has been visiting is covid positive. will add covid/flu pcr (2) Septic arthritis of knee, left: Status: Acute Assessment and plan: Present on admission, due to MSSA. Negative blood cx on 06/19 and no growth on 06/24 PICC inserted 06/21 Will continue Cefazolin 2 gm q 8 H OR irrigation and debridement of left leg including subcutaneous tissues, muscle and bone completed on 06/25 Open synovectomy and debridement of the left knee with placement of an antibiotic spacer with intramedullary rods max temp in the past 24 hours of 101.7 white count up to 14.59; CBC in AM 06/28 blood cultures re-drawn on 06/27 (3) Subacute osteomyelitis, left tibia and fibula: Status: Suspected Assessment and plan: as above OR 06/[address] Rice, likely washout with spacer placed will continue 6 months antibiotics with 6 weeks IV antibiotics CPR ordered for AM (4) Cutaneous abscess of left knee: Status: Acute Assessment and plan: As above. He had 3 small areas in his knee with antibiotic beads however concern they have gotten worse. (5) MSSA bacteremia: Status: Acute Assessment and plan: Will continue antibiotic regimen blood cultures 06/15: MSSA. Blood cultures 06/16, 06/17 NGTD. Blood cultures 06/19: NGTD. Repeat blood culture today 06/27; Tmax 101.7 in the past 24 hours Source - septic knee. Continue Ancef 2 gm IV q8h. TTE negative. May require DELISA. As above. (6) Acute anemia: Status: Acute Assessment and plan: Remains probably multifactorial, post-op as well as due to GI bleed and dilutional. Still no source of active bleeding today. Continue holding all agents that would cause bleeding. No report of further rectal bleed.He did have an episode of bright red blood, he does have internal hemorrhoids. Will continue anusol for this and monitor Continue to monitor Hgb 7.2/ Hct 24 today, CBC in AM (7) Acute kidney injury superimposed on CKD: Status: Acute Assessment and plan: Cr Stable. continue to monitor Cr 1.6, GFR 43.9 Will recheck CMP and Mag in AM 06/28 (8) DVT prophylaxis: Status: Acute Assessment and plan: All anticoagulants held d/t bleeding. as above Will reevaluate in AM 06/28 I have independently examined patient and agree with documentation assessment and plan discussed with DR Delcid Subjective Subjective Patient reports: no new complaints, feels better, pain is less (1/10 to left ankle), tolerating a regular diet, voiding w/o difficulty, flatus, bowel movement and fever (over night); denies diarrhea, nausea, vomiting or shortness of breath Exam Narrative Exam Narrative: Patient in recliner,answers questions adequately. legs elevated, left leg with clean and dry and intact dressing in place, and can mobilize the leg with assistance. Pt has good CMST's to left leg but c/o increased pain. Const General: cooperative, no acute distress and other (Pale looking) Nutritional Appearance: overweight Orientation: alert and oriented x3 HENMT Head: normal to inspection Mouth: oral mucosae normal Eyes General: appearance normal, both eyes and all related structures Conjunctivae: conjunctival abnormality bilaterally pallor Sclera: sclerae normal Other: Glasses on at all times. Reading glasses at bedside. Neck Neck: normal visual inspection, full ROM and no lymphadenopathy Chest Chest: normal inspection of the chest Resp Effort & Inspection: normal respiratory effort Auscultation: clear to auscultation bilaterally Cardio Rate: regular rate Rhythm: regular rhythm Heart Sounds: S1 normal, S2 normal and no murmurs Bruits: other (Split S sounds Pneumonic area) Other: Distant Aortic area S1, S2 GI Inspection: normal to inspection Palpation: soft and nontender Auscultation: normal bowel sounds Skin General skin exam: no rashes or lesions noted Rashes: no rashes Extrem General: no pedal edema and no calf tenderness Psych Appearance: grossly normal Mental Status: mental status grossly normal Mood: congruent mood Affect: normal affect Objective Last Vital Signs Temp 98.6 F 06/27/21 07:45 Pulse 90 06/27/21 07:45 Resp 15 06/27/21 07:45 BP 131/77 06/27/21 07:45 Pulse Ox 94 06/27/21 07:45 Laboratory Results - last 24 hr 06/27/21 06/27/21 06:27 06:27 WBC 14.59 H RBC 2.60 L Hgb 7.2 L Hct 24.0 L MCV 92.3 MCH 27.7 MCHC 30.0 L RDW 14.8 H Plt Count 399 MPV 8.5 Immature Gran % 0.6 Neutrophils % 81.6 Lymphocytes % 6.5 Monocytes % 10.3 Eosinophils % 0.4 Basophils % 0.6 Nucleated RBC % 0 Absolute Neutrophils 11.91 H Absolute Lymphocytes 0.95 L Absolute Monocytes 1.50 H Absolute Eosinophils 0.06 Absolute Basophils 0.09 Sodium 133 L Potassium 4.0 Chloride 98 Carbon Dioxide 26.9 Anion Gap 8.1 BUN 19 H Creatinine 1.6 H Estimated GFR/1.73 m2 43.07 Glucose 158 H Calcium 7.9 L
--- NOTE | 2021-06-27 09:40 | CMPROGNOTE_ITS ---
- If Service Date Differs Date of service: 06/27/21 Time of Service: 09:40 Care Management Progress Note S/O: Bear was sitting up in a chair when CM met with him. He appeared to be in better spirits but expressed concern about a conversation he had with the physical therapist who worked with him this morning. He informed CM that she was recommending that he go to a longterm facility for rehab before returning home. That is not an option Bear has considered or would prefer. CM explained that there will be time to determine what is most appropriate. Bear has had 3 surgeries on his knee in just a couple of weeks and is weak and deconditioned. Now that he is able to bear weight and ambulate more, it is anticipated that he will progress. CM was able to determine that it would be possible for him to receive IVAB at home as Cefazolin can be delivered by a CAD pump.Bear is not clinically ready for discharge so additional discussions will take place as the situation evolves. A: Bear is a 70 year old man admitted on 06/10/21 with a knee infection P:Bear will likely be discharged home, likely with new home health services. A prolonged course of IV antibiotics will likely be required. Bear would prefer to receive the antibiotics at home if at all possible. He will follow up with his PCP and plan of care and transport with family. CM will continue to provide support to Bear and his discharge needs.
[2021-06-27] MEDS: Acetaminophen 325 MG TAB PO ×2 (11:15→23:46)
--- NOTE | 2021-06-27 12:10 | PT.INTREAT ---
Date of service: 06/27/21 Time of Service: 12:10 PT Notes Visit Reasons: Knee Joint Infection Physical Therapy Inpatient Treatment Note Date: 06/27/2021 Precautions: Fall. Standard.? Weight bearing as tolerated on the left LE with AD. [place]. Subjective: Agreeable to PT session.? Okay with getting out of bed.? Reports 8-9/10 pain in the left LE with weight bearing.? Objective: General Observation: Wound dressing to left LE.? IV through right UE. Mental Status: Alert and oriented as to person, place, time, and purpose. Able to pay attention, focus, and respond appropriately. Pain: 4-5/10 in the morning and 6/10 in the left LE with weight bearing Vital Signs: WNL as closely monitored by nursing Bed Mobility/Transfers: Supine to sit with minimal assist to B LE with cues for safe/correct technique Sit to stand with minimal assist with moderate cues for safe/correct technique.? Unable to fully straightne at the knee due to pain. Stand to sit with stand by assist with moderate cues for safe/correct technique Bed to reclining chair minimal assist Gait: 10 feet + 15 feet +10 feet +5 feet using front-wheeled walker with wheelchair followed by nurse Rey for safety. COIL WINDING SUPERVISOR Jessica came in to help [facility] Inadequate knee extension on L due to pain complaint. Inadequate trunk extension as patient tries to favor L LE due to pain. Minimal shortness of breath with faster recovery with seated rests. Balance: Static Sitting: Good Dynamic Sitting: Good Static Standing: Poor Dynamic Standing: Poor ASSESSMENT: Covered more ambulation distance today. Pain level seems to be much controlled today compared to yesterday. Nurse Rey was able to pre-medicate patient for PT and helped with performance today. Weight bearing appears to be increased on the L LE with better pain control. Continues to require extensive cueing not to flop onto chair when fatigued without finishing his turning onto transfer surface. DISCHARGE RECOMMENDATIONS: [] ? Home with no services [] [] ? Home with services [specify]? [] ? Home with outpatient PT [] [X] ? SNF for continued rehabilitation.? Patient will benefit from long-term facility placement for continued skilled physical therapy services in order to progress mobility level, strength, and balance in preparation for a safe discharge to home. [] ? [employer] Installation Manager Care [] [] ? SNF versus LTC based on ability to participate and progress [] TREATMENT CODE/TIME: Session 1--72432 x 33 minutes beginning at 9:12 AM. Session 2--[id number] x 15 minutes beginning at 12:10 PM.
--- NOTE | 2021-06-27 18:43 | W.PM.PROGNOT ---
Date of Service Date of service: 06/27/21 Time of Service: 14:15 Assessment and Plan Assessment and plan (1) Subacute osteomyelitis, left tibia and fibula: Status: Suspected (2) Septic arthritis of knee, left: Status: Acute Assessment and plan: Bear is s/p I&D and washout of the left knee and leg deep compartments with placement of an antibiotic spacer. I expect that he will start noticing signifiant improvements in the next few days. We should really focus on getting better knee extension and that will be difficult and painful. I will check an x-ray tomorrow and take down the dressings. Also, I will start trending CRP Q48hr. I expect it to be higher tomorrow given the proximity to surgery but should falling after that. WBAT with assistive devices, no flexion >90. Contuinue antibiotics. Subjective Subjective Interval history since last seen: Bear had some low grade fever overnight. He denies feeling any worse and thinks the pain is better. He has been up once. Exam Narrative Exam Narrative: Resting in the bed. Quite sleepy. Arousable and answers questions appropriately. Left knee is held in 45 degrees of flexion although he allows me to take it through some passive range of motion with much less pain. Dressings c/d/i. Objective Last Vital Signs Temp 36.4 C L 06/28/21 03:22 Pulse 94 H 06/27/21 23:50 Resp 16 06/27/21 23:50 BP 125/68 06/27/21 23:50 Pulse Ox 91 L 06/27/21 23:50 Laboratory Results - last 24 hr 06/27/21 06/28/21 06/28/21 17:50 06:00 06:00 WBC 12.71 H RBC 2.56 L Hgb 7.1 L Hct 23.4 L MCV 91.4 MCH 27.7 MCHC 30.3 L RDW 15.0 H Plt Count 433 H MPV 8.9 Immature Gran % 0.6 Neutrophils % 80.3 Lymphocytes % 8.6 Monocytes % 9.0 Eosinophils % 0.6 Basophils % 0.9 Nucleated RBC % 0.0 Absolute Neutrophils 10.21 H Absolute Lymphocytes 1.09 L Absolute Monocytes 1.14 H Absolute Eosinophils 0.08 Absolute Basophils 0.11 Sodium 136 Potassium 3.7 Chloride 101 Carbon Dioxide 27.7 Anion Gap 7.3 BUN 19 H Creatinine 1.5 H Estimated GFR/1.73 m2 46.40 Glucose 140 H Calcium 8.0 L Magnesium 1.7 L Total Bilirubin 0.3 AST 24 ALT 11 L Alkaline Phosphatase 75 C-Reactive Protein 16.22 H Total Protein 6.1 L Albumin 1.2 L COVID-19 Source Not Applicable SARS-CoV-2 (PCR) Negative Influenza Type A (PCR) Negative Influenza Type B (PCR) Negative RSV (PCR) Negative
[2021-06-27 19:02] LABS: COVID-19 PCR Negative (Negative); Influenza A PCR Negative (Negative); Influenza B PCR Negative (Negative); RSV PCR Negative (Negative)
[2021-06-27] MEDS: Hydrocortisone 25 MG SUPP PR (20:44)
[2021-06-27] MEDS: Senna TAB 1 TAB PO (21:48)
[2021-06-27] MEDS: Insulin Glargine 300 UNITS/3 ML PEN 12 UNITS SC (21:49)
--- NOTE | 2021-06-28 | DI.RAD_ITS ---
Exam(s) XR KNEE LT 2V AP,LAT EXAM: XR KNEE LT 2V AP,LAT CLINICAL HISTORY: L knee antibiotic spacer placement. TECHNIQUE: 2D digital imaging was performed of the left knee. Three images were obtained. AP and l ateral views were obtained. COMPARISON: CR XR KNEE LT 2V AP,LAT from 06/19/2021 FINDINGS: BONES: No acute fracture is present. No bony destructive lesion is seen. JOINTS: The patient is now status post placement of an left knee antibiotic spacer. The orthopedic h ardware appears in good position. No joint effusion is seen. SOFT TISSUE: Postsurgical changes are seen in the soft tissues. Atherosclerosis is present. IMPRESSION: Status post left knee antibiotic spacer. DATA REPOSITORY: RADIATION DOSE DELIVERED:
[2021-06-28 03:22] VITALS: TEMP 36.4
[2021-06-28] MEDS: Levothyroxine 25 MCG TAB PO (04:58)
[2021-06-28] MEDS: ceFAZolin 2 GM/50 ML BAG IVPB ×3 (04:58→21:38)
[2021-06-28 06:44] LABS: Abs Immature Grans 0.08 10^3/uL (0.0-0.06); Absolute Basophil Count 0.11 10^3/uL (0.0-0.2); Absolute Eosinophil Count 0.08 10^3/uL (0.0-0.7); Absolute Lymphocyte Count 1.09 10^3/uL (1.2-3.4); Basophils % 0.9; Eosinophils % 0.6; HCT 23.4 % (40.0-50.0); HGB 7.1 g/dL (13.5-17.5); Immature Grans % 0.6; Lymphocytes % 8.6; MCH 27.7 pg (27.0-33.0); MCHC 30.3 % (32.0-36.0); MCV 91.4 fL (80-95); MPV 8.9 fL (8.0-11.0); Neutrophils % 80.3; Platelet Count 433 10^3/uL (130-400); RBC 2.56 10^6/uL (4.36-5.78); RDW-SD 50.3 fL; WBC 12.71 10^3/uL (4.4-10.8)
[2021-06-28 06:54] LABS: ALT 11 U/L (16-63); AST 24 U/L (15-37); Absolute Monocyte Count 1.14 10^3/uL (0.1-0.8); Absolute Neutrophil Count 10.21 10^3/uL (1.2-6.7); Albumin 1.2 g/dL (3.4-5.0); Alkaline Phosphatase 75 U/L (46-116); Anion Gap 7.3 mmol/L (3-11); BUN 19 mg/dL (7-18); Bilirubin, Total 0.3 mg/dL (0.2-1.0); C-Reactive Protein 16.22 mg/dL (0.0-0.3); CO2 27.7 mmol/L (21.0-32.0); CREATININE 1.5 mg/dL (0.70-1.30); Chloride 101 mmol/L (98-107); Glucose 140 mg/dL (74-106); Magnesium 1.7 mg/dL (1.8-2.4); Potassium 3.7 mmol/L (3.5-5.1); Sodium 136 mmol/L (136-145); Total Protein 6.1 g/dL (6.4-8.2)
[2021-06-28 08:23] VITALS: BP 132/76; PULSE 87; RESP 18; TEMP 36.9; O2SAT 97
[2021-06-28] MEDS: Insulin Aspart 300 UNITS/3 ML PEN SC ×7 (08:31→21:38)
[2021-06-28] MEDS: Pantoprazole 40 MG TABCR PO ×2 (08:32→21:36)
[2021-06-28] MEDS: Rosuvastatin 10 MG TAB PO (08:33)
[2021-06-28] MEDS: Docusate Sodium 100 MG CAP PO ×3 (08:33→21:36)
[2021-06-28] MEDS: Gabapentin 100 MG CAP PO ×3 (08:33→21:36)
[2021-06-28] MEDS: Montelukast 10 MG TAB PO (08:33)
[2021-06-28] MEDS: Ferrous Sulfate 325 MG TAB PO ×2 (08:33→21:36)
[2021-06-28] MEDS: Hydrocortisone 25 MG SUPP PR (08:33)
[2021-06-28] MEDS: Cetirizine 10 MG TAB PO (08:33)
[2021-06-28] MEDS: Sucralfate 1 GM TAB PO ×4 (08:33→21:36)
[2021-06-28] MEDS: Normal Saline Flush 10 ML SYR IVP ×4 (08:34→21:37)
[2021-06-28] MEDS: Polyethylene Glycol 3350 17 GM PACKET PO (08:34)
--- NOTE | 2021-06-28 10:09 | PDOC.CMPRO ---
- If Service Date Differs Date of service: 06/28/21 Time of Service: 10:09 Care Management Progress Note S/O: Bear's incision site had some bleeding when he came back from xray. Drainage and labs are being closely monitored. His anticoagulants are being closely held. A: Bear is a 70 year old man admitted on 06/10/21 with a knee infection P:Bear will likely be discharged home, likely with new home health services. A prolonged course of IV antibiotics will likely be required. Bear would prefer to receive the antibiotics at home if at all possible. He will follow up with his PCP and plan of care and transport with family. CM will continue to provide support to Bear and his discharge needs.
--- NOTE | 2021-06-28 11:02 | W.PM.PROGNOT ---
Date of Service Date of service: 06/28/21 Time of Service: 07:45 Assessment and Plan Assessment and plan (1) Subacute osteomyelitis, left tibia and fibula: Status: Suspected (2) Septic arthritis of knee, left: Status: Acute Assessment and plan: Bear is a 71 old who is status post irrigation debridement of his left leg abscess as well as the knee with placement of antibiotic spacer. He is doing well. He is making some progress with his range of motion and pain seems to be improving. He should continue on antibiotics for least in the 2 weeks but I would discuss this with infectious disease. He may increase his activity. Dressing should be changed as necessary. They are likely to drain. We will follow CRP every 48 hours, checking again tomorrow. I discussed the case with physical therapy to encourage knee extension on the left side. X-rays obtained today show a well-placed antibiotic spacer without any acute complication. Subjective Subjective Interval history since last seen: Bear reports to be doing okay. He feels that the pain is improving. He has been quite tired. He has had a bowel movement. No fevers no chills. He did go for x-rays today. Exam Narrative Exam Narrative: Resting in the bed. Brandon wrap is removed. Dressings are intact. The lateralmost dressing does have what appears to be dried serosanguineous discharge. No erythema. He does have weak ankle dorsiflexion and no significant EHL function although there is some resting tone and that it does not have a rested flexed position. Sensation intact light touch over the deep and superficial peroneal nerve and tibial nerve. I did work on his range of motion was able to get him to about 15 degrees of extension and approximate 90 degrees of flexion. Objective Last Vital Signs Temp 36.9 C 06/28/21 08:23 Pulse 87 06/28/21 08:23 Resp 18 06/28/21 08:23 BP 132/76 06/28/21 08:23 Pulse Ox 97 06/28/21 08:23 Laboratory Results - last 24 hr 06/27/21 06/28/21 06/28/21 17:50 06:00 06:00 WBC 12.71 H RBC 2.56 L Hgb 7.1 L Hct 23.4 L MCV 91.4 MCH 27.7 MCHC 30.3 L RDW 15.0 H Plt Count 433 H MPV 8.9 Immature Gran % 0.6 Neutrophils % 80.3 Lymphocytes % 8.6 Monocytes % 9.0 Eosinophils % 0.6 Basophils % 0.9 Nucleated RBC % 0.0 Absolute Neutrophils 10.21 H Absolute Lymphocytes 1.09 L Absolute Monocytes 1.14 H Absolute Eosinophils 0.08 Absolute Basophils 0.11 Sodium 136 Potassium 3.7 Chloride 101 Carbon Dioxide 27.7 Anion Gap 7.3 BUN 19 H Creatinine 1.5 H Estimated GFR/1.73 m2 46.40 Glucose 140 H Calcium 8.0 L Magnesium 1.7 L Total Bilirubin 0.3 AST 24 ALT 11 L Alkaline Phosphatase 75 C-Reactive Protein 16.22 H Total Protein 6.1 L Albumin 1.2 L COVID-19 Source Not Applicable SARS-CoV-2 (PCR) Negative Influenza Type A (PCR) Negative Influenza Type B (PCR) Negative RSV (PCR) Negative
[2021-06-28] MEDS: oxyCODONE 5 MG TAB PO (12:00)
--- NOTE | 2021-06-28 12:51 | PT.INTREAT ---
Date of service: 06/28/21 Time of Service: 12:51 PT Notes Visit Reasons: Knee Joint Infection Physical Therapy Inpatient Treatment Note Date: 06/28/2021 Precautions: Fall. Standard.? Weight bearing as tolerated on the left LE with AD. [facility] [place]. Per Dr. Rice, no flexion at the L knee beyond 90 degrees. No pillow under L knee to minimize L knee flexion contracture. Subjective: Agreeable to PT session.? Objective: General Observation: Wound dressing to left LE.? IV through right UE. Mental Status: Alert and oriented as to person, place, time, and purpose. Able to pay attention, focus, and respond appropriately. Pain: 4-5/10 in the left LE with weight bearing Vital Signs: WNL as closely monitored by nursing Bed Mobility/Transfers: Supine to sit with minimal assist to B LE with cues for safe/correct technique Sit to stand with contact guard assist. Unable to fully straighten at the knee due to pain. Stand to sit with contact guard assist Reclining chair to bed side commode contact guard assist Bedisde commode to bed contact guard assist Gait: 5 feet + 15 feet using front-wheeled walker with stand by assist. Inadequate knee extension on L due to pain complaint.? Inadequate trunk extension as patient tries to favor L LE due to pain.? No shortness of breath. No abrupt sitting onto transfer surface with cueing. THERA EX: L Hip IR with combined quadriceps sets held for 10 counts x 5 for 2 sets, gluteal sets x 10, ankle DF/PF x 10. Advised patient to perform exercises every two hours on his own. Balance: Static Sitting: Good Dynamic Sitting: Good Static Standing: Fair Dynamic Standing: Fair ASSESSMENT: Was placed on hold by hospitalist this morning due to increased sanguinous drainage through operative site. Required less physical assistance from just one person today compared to yesterday. Ambulation distance limited by sanguinous drainage through dressing and onto floor. Pain level much improved. DISCHARGE RECOMMENDATIONS: [] ? Home with no services [] [] ? Home with services [specify]? [] ? Home with outpatient PT [] [X] ? SNF for continued rehabilitation.? Patient will benefit from care home facility placement for continued skilled physical therapy services in order to progress mobility level, strength, and balance in preparation for a safe discharge to home. [] ? Retirement Care [] [] ? SNF versus LTC based on ability to participate and progress [] TREATMENT CODE/TIME: 57622 x 20 minutes, 52083 x 14 minutes beginning at 12:51 PM.
[2021-06-28 14:30] LABS: HGB 7.5 g/dL (13.5-17.5)
--- NOTE | 2021-06-28 14:57 | PGE_ITS ---
Date of Service Date of service: 06/28/21 Time of Service: 14:57 Assessment and Plan Assessment and plan (1) Fever: Status: Acute Assessment and plan: POD 3 of wash out with negative blood culture, seen by orthopedics today with no new orders or concerns. expected fever, white count improving, no suspected infection (2) Septic arthritis of knee, left: Status: Acute Assessment and plan: Present on admission, due to MSSA. Negative blood cx on 06/19 but a new set pending from today for fevers post washout. PICC placed 06/21 Cefazolin 2 gm q 8 H lactobacillus daily pain management bowel management OR yesterday for irrigation and debridement of left leg including subcutaneous tissues, muscle and bone Open synovectomy and debridement of the left knee with placement of an antibiotic spacer with intramedullary rods max temp overnight of 38.0 white count up to 14 blood cultures re-drawn (3) Subacute osteomyelitis, left tibia and fibula: Status: Suspected Assessment and plan: as above, pod day 3 washout with spacer placed, 6 months antibiotics with 6 weeks IV antibiotics (4) Cutaneous abscess of left knee: Status: Acute Assessment and plan: As above. (5) MSSA bacteremia: Status: Acute Assessment and plan: blood cultures 06/15: MSSA. Blood cultures 06/16, 06/17 NGTD. Blood cultures 06/19: NGTD. another set drawn today in setting of new fever. results pending. Source - septic knee. Continue Ancef 2 gm IV q8h. TTE negative. May require DELISA. As above. (6) Acute anemia: Status: Acute Assessment and plan: Multifactorial, post-op as well as due to GI bleed and dilutional. No active bleeding. Hold all agents that would cause bleeding. He did have an episode of bright red blood, he does have internal hemorrhoids. Will sumeet anusol for this and monitor Continue to monitor Hgb down from 8.2 to 7.6 today continue carafate, PPI and iron supplementation. (7) Acute kidney injury superimposed on CKD: Status: Acute Assessment and plan: Cr Stable. continue to monitor (8) DVT prophylaxis: Status: Acute Assessment and plan: All anticoagulants held d/t bleeding. as above discussed with Dr. Albarado Exam Const General: cooperative, no acute distress, frail appearing and ill appearing chronically Nutritional Appearance: average body habitus Orientation: alert, awake and oriented x3 [facility] Head: normal to inspection, normocephalic and atraumatic Mouth: oral mucosae normal Neck Neck: normal visual inspection Chest Chest: normal inspection of the chest Resp Effort & Inspection: normal respiratory effort Auscultation: clear to auscultation bilaterally Cardio Rate: regular rate Rhythm: regular rhythm GI Inspection: normal to inspection Palpation: soft Auscultation: normal bowel sounds Skin Lesions: other (no visualized, dressing dry and intact. ) Rashes: no rashes Neuro General: patient alert, patient awake and patient oriented x3 Extrem General: edema (left > right) Objective Last Vital Signs Temp 36.9 C 06/28/21 08:23 Pulse 87 06/28/21 08:23 Resp 18 06/28/21 08:23 BP 132/76 06/28/21 08:23 Pulse Ox 97 06/28/21 08:23 Laboratory Results - last 24 hr 06/27/21 06/28/21 06/28/21 17:50 06:00 06:00 WBC 12.71 H RBC 2.56 L Hgb 7.1 L Hct 23.4 L MCV 91.4 MCH 27.7 MCHC 30.3 L RDW 15.0 H Plt Count 433 H MPV 8.9 Immature Gran % 0.6 Neutrophils % 80.3 Lymphocytes % 8.6 Monocytes % 9.0 Eosinophils % 0.6 Basophils % 0.9 Nucleated RBC % 0.0 Absolute Neutrophils 10.21 H Absolute Lymphocytes 1.09 L Absolute Monocytes 1.14 H Absolute Eosinophils 0.08 Absolute Basophils 0.11 Sodium 136 Potassium 3.7 Chloride 101 Carbon Dioxide 27.7 Anion Gap 7.3 BUN 19 H Creatinine 1.5 H Estimated GFR/1.73 m2 46.40 Glucose 140 H Calcium 8.0 L Magnesium 1.7 L Total Bilirubin 0.3 AST 24 ALT 11 L Alkaline Phosphatase 75 C-Reactive Protein 16.22 H Total Protein 6.1 L Albumin 1.2 L COVID-19 Source Not Applicable SARS-CoV-2 (PCR) Negative Influenza Type A (PCR) Negative Influenza Type B (PCR) Negative RSV (PCR) Negative 06/28/21 14:15 WBC RBC Hgb 7.5 L Hct 25.0 L MCV MCH MCHC RDW Plt Count MPV Immature Gran % Neutrophils % Lymphocytes % Monocytes % Eosinophils % Basophils % Nucleated RBC % Absolute Neutrophils Absolute Lymphocytes Absolute Monocytes Absolute Eosinophils Absolute Basophils Sodium Potassium Chloride Carbon Dioxide Anion Gap BUN Creatinine Estimated GFR/1.73 m2 Glucose Calcium Magnesium Total Bilirubin AST ALT Alkaline Phosphatase C-Reactive Protein Total Protein Albumin COVID-19 Source SARS-CoV-2 (PCR) Influenza Type A (PCR) Influenza Type B (PCR) RSV (PCR)
[2021-06-28 15:43] VITALS: BP 128/76; PULSE 89; RESP 18; TEMP 37.6; O2SAT 94
[2021-06-28 21:29] VITALS: BP 126/63; PULSE 96; RESP 18; TEMP 38.1; O2SAT 92
[2021-06-28] MEDS: Senna TAB 1 TAB PO (21:36)
[2021-06-28] MEDS: Insulin Glargine 300 UNITS/3 ML PEN 12 UNITS SC (21:37)
[2021-06-28] MEDS: Acetaminophen 325 MG TAB PO (22:13)
[2021-06-29] MEDS: ceFAZolin 2 GM/50 ML BAG IVPB ×3 (04:59→21:02)
[2021-06-29] MEDS: Levothyroxine 25 MCG TAB PO (05:02)
--- NOTE | 2021-06-29 09:35 | PTTR_ITS ---
Date of service: 06/29/21 Time of Service: 08:59 PT Notes Visit Reasons: Knee Joint Infection Inpatient Physical Therapy Treatment Note [facility] Date: 06/29/2021 PRECAUTIONS: WBAT L, anxious, fall SUBJECTIVE: Bear states that he still has significant deficits with ambulation, although he is feeling better than he was previously. OBJECTIVE: Attempted to coordinate with primary nurse to pre-medicate patient for PT session. Patient indicated that he was not pre-medicated post-PT session, nursing confirmed that she was unable to pre-medicate as planned due to being tied up with another patient. It would be to patient's benefit to be pre- medicated for pain prior to PT sessions in the future, for progression in gait training and improved gait mechanics. PAIN: Patient c/o throbbing pain in L knee with gait training BED MOBILITY/TRANSFERS Supine-sit: CGA with HOB at 20 degrees Sit-stand: SBA Stand-sit: SBA Bed-Chair: CGA GAIT Assistive Device: FWW Weight bearing: WBAT L Assist: CGA Distance: 15' + 10' + 20' Deviation: Patient required max cueing for heel strike, increased pain in L knee, unable to fully extend L knee, antalgic gait, step-to gait pattern. THEREX: Patient was instructed in gentle quad setting exercise for knee ext ension promotion. He requires cueing for proper exercise performance. TOILETING: Patient toileted with SBA for transfers. ASSESSMENT: Patient continues to demonstrate decreased ROM in L knee. He requires max cueing with gait training for heel strike and demonstrates antalgic gait and step-to gait pattern. He also continues to demonstrate global weakness and general deconditioning. PLAN: Continue with global strengthening and general conditioning, as tolerated. Continue to promote L knee extension for improved gait mechanics. TREATMENT CODE/TIME: 32 minutes; 25504 x2 (08:59)
[2021-06-29] MEDS: Acetaminophen 325 MG TAB PO ×3 (09:50→21:15)
[2021-06-29] MEDS: oxyCODONE 5 MG TAB PO ×3 (09:50→21:14)
[2021-06-29] MEDS: Pantoprazole 40 MG TABCR PO ×2 (09:51→21:08)
[2021-06-29] MEDS: Montelukast 10 MG TAB PO (09:52)
[2021-06-29] MEDS: Rosuvastatin 10 MG TAB PO (09:52)
[2021-06-29] MEDS: Gabapentin 100 MG CAP PO ×3 (09:52→21:08)
[2021-06-29] MEDS: Sucralfate 1 GM TAB PO ×4 (09:53→21:08)
[2021-06-29] MEDS: Ferrous Sulfate 325 MG TAB PO ×2 (09:53→21:09)
[2021-06-29] MEDS: Docusate Sodium 100 MG CAP PO (09:53)
[2021-06-29] MEDS: Cetirizine 10 MG TAB PO (09:53)
[2021-06-29] MEDS: Insulin Aspart 300 UNITS/3 ML PEN SC ×6 (09:54→17:11)
--- NOTE | 2021-06-29 10:19 | PGE_ITS ---
Date of Service Date of service: 06/29/21 Time of Service: 10:00 Assessment and Plan Assessment and plan (1) Septic arthritis of knee, left: Status: Acute Assessment and plan: Present on admission, due to MSSA. POD 4 of wash out with negative blood culture at 72 hours,Tmax 100.6; seen by orthopedics today with no new orders or concerns. PICC placed 06/21 for post discharge IV antibiotic therapy for 6 weeks post negative blood C& S, then 6 additional weeks of PO Will continue Cefazolin 2 gm q 8 H and lactobacillus daily Will coninue pain management Bowel management regimen is effective,Miralax not to be given today re: liquid stool this AM OR on 06/25 for irrigation and debridement of left leg including subcutaneous tissues, muscle and bone (2) Subacute osteomyelitis, left tibia and fibula: Status: Suspected Assessment and plan: as above, pod day 4 washout with spacer placed, 6 months antibiotics with 6 weeks IV antibiotics then orally. (3) Cutaneous abscess of left knee: Status: Acute Assessment and plan: As above. (4) MSSA bacteremia: Status: Acute Assessment and plan: blood cultures 06/15: MSSA. Blood cultures 06/16, 06/17 NGTD.Will count 6 weeks of IV antibiotics from this date, then PO Blood cultures 06/19 and 06/26: NGTD. Continue Ancef 2 gm IV q8h. ESR, CRP ordered for Thursday. As above. (5) Hypertension: Assessment and plan: Restarting metoprolol today; parameters added for safe administration. (6) Acute anemia: Status: Acute Assessment and plan: Multifactorial, post-op as well as due to GI bleed and dilutional. No active bleeding. Hold all agents that would cause bleeding. No further GI bleeding reported Continue to monitor Hgb down from 7.1 to 7.5 today. F/u CBC for Thursday continue carafate, PPI and iron supplementation. (7) Acute kidney injury superimposed on CKD: Status: Acute Assessment and plan: Cr Stable on 06/28; will continue to monitor CMP, magnesium on Thursday to f/u (8) Diabetes: Assessment and plan: Blood glucose 164 to 264 in the last 24 hours Will continue fingersticks and SSI and Lantus SC (9) DVT prophylaxis: Status: Acute Assessment and plan: All anticoagulants held d/t bleeding. See r acute anemia plan (10) Discharge planning issues: Status: Acute Assessment and plan: case management following. will need long course of IV antibiotics, 6 weeks IV, will explore home infusion. discussed with Dr. Galo Subjective Subjective Patient reports: feels better, pain is less (initailly 6/10 post physical therapy but 4/10 at the time of assessement), tolerating a regular diet, flatus, bowel movement and afebrile; denies diarrhea, nausea, vomiting or shortness of breath Exam Narrative Exam Narrative: Patient in recliner,answers questions adequately. legs elevated, dressing to left leg with serosanguineous odorless drainage changed by orthopedics. Dorsiflexion of the left great toe remains minimal but patient demonstrates >60 degree of ankle dorsiflexion with minimal discomfort. CMST's to left leg and foot. Const General: cooperative, no acute distress, not in acute distress, frail appearing and ill appearing chronically Nutritional Appearance: average body habitus and overweight Orientation: alert, awake and oriented x3 [facility] Head: normocephalic Mouth: oral mucosae normal Eyes General: appearance normal, both eyes and all related structures Conjunctivae: conjunctival abnormality bilaterally pallor Sclera: sclerae normal Other: Pt is wearing glasses at all times Neck Neck: normal visual inspection and full ROM Chest Chest: normal inspection of the chest Resp Effort & Inspection: normal respiratory effort Auscultation: clear to auscultation bilaterally Cardio Rate: regular rate Rhythm: regular rhythm Heart Sounds: S1 normal, S2 normal and no murmurs Bruits: other GI Inspection: normal to inspection (large and rounded) and obesity Palpation: soft and nontender Auscultation: normal bowel sounds Other: Munoz in place draining clear yellow urine in QS; will be discontinued this AM. Skin General skin exam: no rashes or lesions noted Lesions: other (no visualized, dressing dry and intact. ) Rashes: no rashes Wounds: wounds noted (Left knee surgical site: see ortho's notes) left posterior knee other (excoriation is scabbing and healing well.) Neuro General: patient alert, patient awake and patient oriented x3 Cognition: normal cognition Speech: speech normal Extrem General: no calf tenderness and edema Left lower extremity: edema Details: non-pitting and 2+ (foot) and lower leg Psych Appearance: grossly normal Mental Status: mental status grossly normal Mood: congruent mood Affect: normal affect Attitude: cooperative Judgment: judgment good Objective Last Vital Signs Temp 100.6 F H 06/28/21 21:29 Pulse 96 H 06/28/21 21:29 Resp 18 06/28/21 21:29 BP 126/63 06/28/21 21:29 Pulse Ox 92 06/28/21 21:29 Laboratory Results - last 24 hr 06/28/21 14:15 Hgb 7.5 L Hct 25.0 L
[2021-06-29] MEDS: Normal Saline Flush 10 ML SYR IVP ×3 (10:29→22:03)
--- NOTE | 2021-06-29 14:17 | W.PM.PROGNOT ---
Date of Service Date of service: 06/29/21 Time of Service: 09:25 Assessment and Plan Assessment and plan (1) Subacute osteomyelitis, left tibia and fibula: Status: Suspected (2) Septic arthritis of knee, left: Status: Acute Assessment and plan: Bear continues to make some improvements. He has been able to ambulate farther and move the knee better. I encouraged him to stay positive and continue with all of the exercise that he is doing. In general, he reports to be feeling better. He feels the strength is also improving. We will check inflammatory markers and the next day or so to see if the labs match up with his overall sentiment by expect things to continue to improve. I do believe he will need antibiotics intravenously for at least another 2 weeks but would recommend infection disease consultation. He would then go on to an oral antibiotic for some months. The knee replacement that is currently in place is a low fraction spacer which may stay indefinitely depending on how he does. He does want to go home and I think he may be able to if he continues to make progress over the next few days. Subjective Subjective Interval history since last seen: Bear reports to be doing better. He has been working diligently on his range of motion and was able to ambulate farther yesterday and this morning than he has many weeks. He does have pain after activity but the pain during activity is much better. He has been working on keeping the leg extended as much as possible. He has had some drainage from his lateral left leg wound. He denies fevers or chills. Exam Narrative Exam Narrative: Sitting up in the chair. No acute distress. He is holding the left leg with much less external rotation and with only about 15 degrees of flexion contracture on the left side, much improved from previous visits. There is dried serosanguineous material on the dressing and with the dressings are removed there is a persistent but slight ooze from the superolateral portal site. There is effusion about the left knee. No significant erythema. No area of fluctuance. Much better pain with passive range of motion of the left knee. He is able to demonstrate some active dorsiflexion of the left ankle. Appropriately normal resting position of the EHL but no active EHL function. Significant pitting edema from the ankle distal. The wound to the popliteal space appears to be healing appropriately with granulation tissueand a small eschar but no surrounding erythema. Objective Laboratory Results - last 24 hr 06/28/21 14:15 Hgb 7.5 L Hct 25.0 L Vital Signs (72 hours) 06/26/21 15:45 06/26/21 16:45 06/26/21 20:17 Temperature 38.6 C H 38.7 C H 38.0 C H Pulse 110 H 93 H 89 Respiratory Rate 26 H 23 20 Blood Pressure 91/56 L 107/64 115/68 Pulse Oximetry 95 94 94 06/26/21 23:52 06/27/21 01:40 06/27/21 07:45 Temperature 38.0 C H 36.8 C 37.0 C Pulse 65 90 Respiratory Rate 18 15 Blood Pressure 111/72 131/77 Pulse Oximetry 92 94 06/27/21 11:15 06/27/21 12:01 06/27/21 12:44 Temperature 37.4 C 37.3 C 37.3 C Pulse Respiratory Rate Blood Pressure Pulse Oximetry 06/27/21 15:43 06/27/21 23:50 06/28/21 03:22 Temperature 37.1 C 38.8 C H 36.4 C L Pulse 94 H 94 H Respiratory Rate 16 16 Blood Pressure 143/77 H 125/68 Pulse Oximetry 97 91 L 06/28/21 08:23 06/28/21 15:43 06/28/21 21:29 Temperature 36.9 C 37.6 C H 38.1 C H Pulse 87 89 96 H Respiratory Rate 18 18 18 Blood Pressure 132/76 128/76 126/63 Pulse Oximetry 97 94 92
[2021-06-29 16:04] VITALS: BP 120/87; PULSE 87; RESP 20; TEMP 36.5; O2SAT 98
[2021-06-29] MEDS: Metoprolol 50 MG TAB PO (21:08)
[2021-06-29] MEDS: Insulin Glargine 300 UNITS/3 ML PEN 12 UNITS SC (21:09)
[2021-06-29 23:50] VITALS: BP 122/86; PULSE 86; RESP 20; TEMP 36.3; O2SAT 98
[2021-06-30] MEDS: Normal Saline Flush 10 ML SYR IVP ×3 (05:01→20:18)
[2021-06-30] MEDS: Levothyroxine 25 MCG TAB PO (05:01)
[2021-06-30] MEDS: ceFAZolin 2 GM/50 ML BAG IVPB ×3 (05:01→20:18)
[2021-06-30 07:54] VITALS: BP 160/97; PULSE 85; RESP 18; TEMP 37; O2SAT 92
[2021-06-30] MEDS: Sucralfate 1 GM TAB PO ×4 (08:37→22:57)
[2021-06-30] MEDS: Hydrocortisone 25 MG SUPP PR (08:37)
[2021-06-30] MEDS: Rosuvastatin 10 MG TAB PO (08:37)
[2021-06-30] MEDS: Pantoprazole 40 MG TABCR PO ×2 (08:38→20:18)
[2021-06-30] MEDS: Ferrous Sulfate 325 MG TAB PO ×2 (08:38→20:18)
[2021-06-30] MEDS: Metoprolol 50 MG TAB PO ×2 (08:38→20:18)
[2021-06-30] MEDS: Insulin Aspart 300 UNITS/3 ML PEN SC ×6 (08:38→22:51)
[2021-06-30] MEDS: Gabapentin 100 MG CAP PO ×3 (08:38→20:18)
[2021-06-30] MEDS: Montelukast 10 MG TAB PO (08:38)
[2021-06-30] MEDS: Cetirizine 10 MG TAB PO (08:38)
[2021-06-30] MEDS: oxyCODONE 5 MG TAB PO (10:01)
[2021-06-30 15:08] VITALS: BP 145/73; PULSE 74; RESP 14; TEMP 37.5; O2SAT 95
--- NOTE | 2021-06-30 15:12 | W.PM.PROGNOT ---
Date of Service Date of service: 06/30/21 Time of Service: 15:12 Assessment and Plan Assessment and plan (1) Septic arthritis of knee, left: Status: Acute Assessment and plan: Present on admission, due to MSSA. Negative blood cx on 06/19 but a new set pending from today for fevers post washout. PICC placed 06/21 Cefazolin 2 gm q 8 H lactobacillus daily pain management bowel management OR on 06/25/2021 for irrigation and debridement of left leg including subcutaneous tissues, muscle and bone Open synovectomy and debridement of the left knee with placement of an antibiotic spacer with intramedullary rods max temp overnight of 38.0 white count up to 14 blood cultures re-drawn (2) Subacute osteomyelitis, left tibia and fibula: Status: Suspected Assessment and plan: 6 months antibiotics with 6 weeks IV antibiotics (3) Cutaneous abscess of left knee: Status: Acute Assessment and plan: As above. (4) MSSA bacteremia: Status: Acute Assessment and plan: blood cultures 06/15: MSSA. Blood cultures 06/16, 06/17 NGTD. Blood cultures 06/19: NGTD. another set drawn today in setting of new fever. results pending. Source - septic knee. Continue Ancef 2 gm IV q8h. TTE negative. May require DELISA. As above. (5) Hypertension: (6) Acute anemia: Status: Acute Assessment and plan: Multifactorial, post-op as well as due to GI bleed and dilutional. No active bleeding. Hold all agents that would cause bleeding. He did have an episode of bright red blood, he does have internal hemorrhoids. Will sumeet anusol for this and monitor Continue to monitor Hgb down from 8.2 to 7.6 today continue carafate, PPI and iron supplementation. (7) Acute kidney injury superimposed on CKD: Status: Acute Assessment and plan: Cr Stable. continue to monitor (8) Diabetes: Assessment and plan: continue diabetic diet continue sliding scale with coverage as needed. continue lantus 12 units (home dose is 22 units). adjust as needed hemoglobin A1C 8.9 (9) DVT prophylaxis: Status: Acute Assessment and plan: All anticoagulants held d/t bleeding. (10) Discharge planning issues: Status: Acute Assessment and plan: case management following. will need long course of IV antibiotics, 6 weeks IV, will explore home infusion. discussed with Dr. Galo Subjective Subjective Patient reports: no new complaints, feels better, tolerating liquids well, tolerating a regular diet, voiding w/o difficulty and afebrile Exam Const General: cooperative and no acute distress Nutritional Appearance: average body habitus Orientation: alert, awake and oriented x3 [facility] Head: normal to inspection, normocephalic and atraumatic Mouth: oral mucosae normal Neck Neck: normal visual inspection Chest Chest: normal inspection of the chest Resp Effort & Inspection: normal respiratory effort Cardio Rate: regular rate Rhythm: regular rhythm GI Inspection: normal to inspection Palpation: soft Auscultation: normal bowel sounds Skin Lesions: other (no visualized, dressing dry and intact. ) Rashes: no rashes Neuro General: patient alert, patient awake and patient oriented x3 Extrem General: edema (left > right) Objective Last Vital Signs Temp 37.5 C 06/30/21 15:08 Pulse 74 06/30/21 15:08 Resp 14 06/30/21 15:08 BP 145/73 H 06/30/21 15:08 Pulse Ox 95 06/30/21 15:08
[2021-06-30 20:19] VITALS: BP 132/75; PULSE 87; RESP 16; TEMP 37; O2SAT 97
[2021-06-30] MEDS: Insulin Glargine 300 UNITS/3 ML PEN 12 UNITS SC (22:52)
[2021-07-01] MEDS: ceFAZolin 2 GM/50 ML BAG IVPB ×2 (04:45→11:36)
[2021-07-01] MEDS: Levothyroxine 25 MCG TAB PO (05:37)
[2021-07-01 06:33] VITALS: BP 152/66; PULSE 85; RESP 18; TEMP 36.6; O2SAT 95
[2021-07-01 06:50] LABS: Abs Immature Grans 0.04 10^3/uL (0.0-0.06); Absolute Lymphocyte Count 1.04 10^3/uL (1.2-3.4); Absolute Monocyte Count 0.96 10^3/uL (0.1-0.8); Absolute Neutrophil Count 7.31 10^3/uL (1.2-6.7); Eosinophils % 2.1; HCT 25.6 % (40.0-50.0); HGB 7.8 g/dL (13.5-17.5); Immature Grans % 0.4; Lymphocytes % 10.8; MCH 27.4 pg (27.0-33.0); MCHC 30.5 % (32.0-36.0); MCV 89.8 fL (80-95); MPV 8.1 fL (8.0-11.0); Monocytes % 9.9; Neutrophils % 75.8; Platelet Count 464 10^3/uL (130-400); RBC 2.85 10^6/uL (4.36-5.78); RDW 14.8 % (11.8-14.1); RDW-SD 48.9 fL; WBC 9.65 10^3/uL (4.4-10.8)
[2021-07-01 06:54] LABS: ESR 50 mm/hr (0-20)
[2021-07-01 07:11] LABS: ALT 23 U/L (16-63); AST 54 U/L (15-37); Albumin 1.3 g/dL (3.4-5.0); Alkaline Phosphatase 86 U/L (46-116); Anion Gap 7.7 mmol/L (3-11); BUN 19 mg/dL (7-18); Bilirubin, Total 0.2 mg/dL (0.2-1.0); C-Reactive Protein 6.17 mg/dL (0.0-0.3); CO2 27.3 mmol/L (21.0-32.0); CREATININE 1.4 mg/dL (0.70-1.30); Chloride 102 mmol/L (98-107); Estimated GFR 50.25 (mL/min/1.73m2); Glucose 146 mg/dL (74-106); Magnesium 1.6 mg/dL (1.8-2.4); Potassium 3.7 mmol/L (3.5-5.1); Sodium 137 mmol/L (136-145); Total Protein 6.4 g/dL (6.4-8.2)
[2021-07-01 07:22] LABS: Calcium 7.7 mg/dL (8.5-10.1)
[2021-07-01] MEDS: Insulin Aspart 300 UNITS/3 ML PEN SC ×4 (08:39→12:20)
[2021-07-01] MEDS: Normal Saline Flush 10 ML SYR IVP (08:40)
[2021-07-01] MEDS: Ferrous Sulfate 325 MG TAB PO (08:41)
[2021-07-01] MEDS: Pantoprazole 40 MG TABCR PO (08:41)
[2021-07-01] MEDS: Gabapentin 100 MG CAP PO ×2 (08:41→12:21)
[2021-07-01] MEDS: Sucralfate 1 GM TAB PO ×3 (08:41→16:21)
[2021-07-01] MEDS: Metoprolol 50 MG TAB PO (08:41)
[2021-07-01] MEDS: Rosuvastatin 10 MG TAB PO (08:42)
[2021-07-01] MEDS: Montelukast 10 MG TAB PO (08:42)
[2021-07-01] MEDS: Cetirizine 10 MG TAB PO (08:42)
[2021-07-01] MEDS: Hydrocortisone 25 MG SUPP PR (08:42)
--- NOTE | 2021-07-01 08:56 | PDOC.CMPRO ---
- If Service Date Differs Date of service: 07/01/21 Time of Service: 08:56 Care Management Progress Note S/O: Bear will be transitioned to SB-1 today to continue IV antibiotics and working with PT. It is anticipated that he will complete the course of antibiotics in mid-July, approximately 07/31/21. A: Bear is a 70 year old man admitted on 06/10/21 with a knee infection P:Bear will likely be discharged home with new home health services. He will follow up with his PCP and plan of care and transport with family. CM will continue to provide support to Bear and his discharge needs.
[2021-07-01] MEDS: Magnesium Oxide 400 MG TAB 800 MG PO (08:58)
[2021-07-01] MEDS: MAGNESIUM SULFATE 2 GM/50 ML BAG IVPB (08:58)
--- NOTE | 2021-07-01 10:15 | W.DIABETESNO ---
Date of service: 07/01/21 Time of Service: 10:15 Diabetes Note Reason for Visit: dm NOTE: Bear continues on diabetic, low sodium diet with adequate intake to meet macronutrient needs. Blood sugars well controlled. Not at nutritional risk at this time. Time Spent in Nutritional Counseling and Treatment: 0
--- NOTE | 2021-07-01 11:10 | INDS_ITS ---
Date of service: 07/01/21 Time of Service: 11:10 PT Notes Visit Reasons: Knee Joint Infection Physical Therapy Discharge Summary Date: 07/01/2021 Dates of service: 06/12/2021 through 07/01/2021 Referring Doctor: Nav Albarado MD PT Orders: PT CONSULT: Eval/treat Precautions: Fall. Standard.? Weight bearing as tolerated on the left LE with AD. Per Dr. Rice, no flexion in the L knee beyond 90 degrees. No pillow directly under the L knee. Subjective: Agreeable to PT session.? Pain level has subsided to 6/10 with weight bearing. Objective: General Observation: Wound dressing to left LE.? PICC line through the R UE. Mental Status: Alert and oriented as to person, place, time, and purpose. Able to pay attention, focus, and respond appropriately. Pain: 6/10 in the left LE with weight bearing ROM: Right Upper Extremity: ? Shoulder Flexion WFL. Shoulder abduction WFL. Elbow flexion WFL. Wrist flexion WFL. Functional opening and closing of hand WFL. Left Upper Extremity:? Shoulder Flexion WFL. Shoulder abduction WFL. Elbow flexion WFL. Wrist flexion WFL. Functional opening and closing of hand WFL. Right Lower Extremity: Hip flexion WFL. Hip abduction WFL. Knee flexion WFL. Ankle dorsiflexion WFL. Ankle plantarflexion WFL. Left Lower Extremity: Able to slide left heel to about 90 degrees of knee flexion and hip flexion while in bed.? Knee extensors -30 degrees. Able to slide R LE out to about 10 degree and then uses a leg rock climbing team member to to let it hang to edge of bed. Strength: Right Upper Extremity: Shoulder flexors 4/5. Shoulder abductors 4/5. Elbow flexors 5/5. Elbow extensors 5/5. [employer] strong. Left Upper Extremity: Shoulder flexors 4/5. Shoulder abductors 4/5. Elbow flexors 5/5. Elbow extensors 5/5. [employer] strong. Right Lower Extremity: Hip flexors 5/5. Hip abductors 5/5. Knee flexors 5/5. Knee extensors 5/5. Ankle dorsiflexors 5/5. Ankle plantarflexors 5/5. Left Lower Extremity: Hip flexors 3-/5. Hip abductors 2-/5. Knee flexors 3-/5. Knee extensors 3-/5. Ankle dorsiflexors 4-/5. Ankle plantarflexors 4/5. Bed Mobility/Transfers: Supine to sit stand by assist using leg rock climbing team member for L LE Sit to stand with stand by assist with FWW Stand to sit with stand by assist with FWW Bed to reclining stand by assist with FWW Gait: Instructed patient with level surface ambulation of 15 feet + 15 feet requiring stand by assist.? Increasing knee extension on the L during midstance. Trunk now more erect and able to put full weight onto L LE. Patient reports 6/10 pain in the L knee that subsided with rest. Balance: Static Sitting: Normal Dynamic Sitting: Normal Static Standing: Fair Dynamic Standing: Fair Special Tests: Mobility Limitations Standardized Measure [facility]-PAC 6 clicks Basic Mobility Inpatient Short Form: Raw Score: 20 ? CMS Score: 36% deficit? ? ? Informed Consent/Education:? Patient is being discharged today under acute level of care and is agreeable to be re-evaluated under swing bed level I tomorrow. Assessment: Pain tolerance is improving. Gait pattern and safety of ambulation improving. AROM and strength to L knee joint and muscles improving. Patient is converting to swing bed level I as of today. He will be re-evaluated tomorrow for continued PT services. Pain tolerance is improving. Gait pattern and safety of ambulation improving. Patient presents with clinical signs and symptoms consistent with current/admitting diagnoses that have resulted to mobility limitations, gait instability, generalized weakness, and overall ADL decline as demonstrated by the following impairment level findings: 1.? Decreased strength to left LE major muscle groups 2.? Impaired sitting/standing balance 3.? Impaired activity tolerance 4.? Limitation of joint range of motion in L knee joint 5.? Pain in the L knee/L LE Impairments are contributing to the following functional limitations: 1.? Decline in bed mobility skills 2.? Decline in transfer skills 3.? Difficulty with ambulation without assistive device and physical assistance 4.? Increased completion time for mobility ADL performance 5.? Increased risk for falls 6.? Difficulty with managing steps alone safely Patient is assessed [place] a 75149 moderate complexity based on the following: History: 70-year-old male with past medical history as indicated above Examination: Improving ability as evidenced by increments in strength, balance, and mobility level with underlying impairments and functional limitations as exhibited above as well as deficit score of 36% utilizing the [facility] Mobility Inpatient Short Form Presentation: Evolving Decision Makin moderate complexity Goals: Goals X1 week 1. Supine-Sit independent NOT MET, CONTINUE 2. Sit-Supine independent NOT MET, CONTINUE 3. Sit-Stand independent NOT MET, CONTINUE 4. Stand-Sit independent with FWW NOT MET, CONTINUE 5. Bed-Chair independent with FWW NOT MET, CONTINUE 6. Chair-Bed independent with FWW NOT MET, CONTINUE 7. Independent gait on level surface with use of FWW for at least 300 feet without report of pain nor dyspnea NOT MET, CONTINUE 8. Independent stair negotiation while holding onto B rails for at least 5 steps without report of pain nor dyspnea NOT MET, CONTINUE 9. Independent with home exercise program NOT MET, CONTINUE 10. Good static and dynamic standing balance/tolerance NOT MET, CONTINUE Plan of Care/Treatment Plan: Re-evaluate under swing bed level I tomorrow for continued services. DISCHARGE RECOMMENDATIONS: [] ? Home with no services [] [] ? Home with services [specify]? [] ? Home with outpatient PT [] [X] ? SNF for continued rehabilitation.? Patient will benefit from care home facility placement for continued skilled physical therapy services in order to progress mobility level, strength, and balance in preparation for a safe discharge to home. [] ? Nursing Home Care [] [] ? SNF versus LTC based on ability to participate and progress [] TREATMENT CODE/TIME: 10269 x 40 minutes, 94703 x 15 minutes beginning at 11:10 AM. Thank you for the opportunity to participate in the care of this patient. Barb Araiza PT, DPT, CLT [facility] [place], [place]
[2021-07-01] MEDS: oxyCODONE 5 MG TAB PO (11:36)
--- NOTE | 2021-07-01 13:35 | W.PM.PROGNOT ---
Date of Service Date of service: 07/01/21 Time of Service: 07:35 Assessment and Plan Assessment and plan (1) Subacute osteomyelitis, left tibia and fibula: Status: Suspected (2) Septic arthritis of knee, left: Status: Acute Assessment and plan: Bear is a 71yo who is s/p I&D and synovectomy of left knee septic arthritis and abscess with antibiotic spacer placement. He continues to make some improvements, albeit slowly. I do believe he will need antibiotics intravenously for at least another 2 weeks but would recommend infection disease consultation. He would then go on to an oral antibiotic for some months. The knee replacement that is currently in place is a low fraction spacer which may stay indefinitely depending on how he does. OK for swing bed admission. Subjective Subjective Interval history since last seen: Bear continues to make some improvements with ambulation. He requires assistance to get in and out of the bed and chair but feels he is improving with exercise tolerance. No fever or chills. He still has had some drainage which has improved with the new dressing. Exam Narrative Exam Narrative: Resting in the bed. AAOx3. LLE dressing has drainage. No significant fluctuance. Knee is held at about 20 degrees. He is able to tolerate some range from 15 - 90 degrees. Unable to SLR but with minimal pain about the knee. SILT DP/SP/Tib. Minimal errythema. Objective Last Vital Signs Temp 36.6 C 07/01/21 06:33 Pulse 85 07/01/21 06:33 Resp 18 07/01/21 06:33 BP 152/66 H 07/01/21 06:33 Pulse Ox 95 07/01/21 06:33 Laboratory Results - last 24 hr 07/01/21 07/01/21 07/01/21 06:40 06:40 06:40 WBC 9.65 RBC 2.85 L Hgb 7.8 L Hct 25.6 L MCV 89.8 MCH 27.4 MCHC 30.5 L RDW 14.8 H Plt Count 464 H MPV 8.1 Immature Gran % 0.4 Neutrophils % 75.8 Lymphocytes % 10.8 Monocytes % 9.9 Eosinophils % 2.1 Basophils % 1.0 Nucleated RBC % 0.0 Absolute Neutrophils 7.31 H Absolute Lymphocytes 1.04 L Absolute Monocytes 0.96 H Absolute Eosinophils 0.20 Absolute Basophils 0.10 ESR 50 H Sodium 137 Potassium 3.7 Chloride 102 Carbon Dioxide 27.3 Anion Gap 7.7 BUN 19 H Creatinine 1.4 H Estimated GFR/1.73 m2 50.25 Glucose 146 H Calcium 7.7 L Magnesium 1.6 L Total Bilirubin 0.2 AST 54 H ALT 23 Alkaline Phosphatase 86 C-Reactive Protein 6.17 H Total Protein 6.4 Albumin 1.3 L
--- NOTE | 2021-07-01 13:59 | W.PM.DS.N ---
Date of service: 07/01/21 Time of Service: 13:59 DS: Diagnosis Discharge Diagnosis (1) Septic arthritis of knee, left: Status: Acute (2) Subacute osteomyelitis, left tibia and fibula: Status: Suspected (3) Cutaneous abscess of left knee: Status: Acute (4) MSSA bacteremia: Status: Acute (5) Hypertension: (6) Acute anemia: Status: Acute (7) Acute kidney injury superimposed on CKD: Status: Acute (8) Diabetes: Discharge Plan Disposition Patient Disposition: [facility] SWING BED LEVEL 1 Condition: Improving Discharge Details Reason For Visit: Knee Joint Infection Admit Date/Time: 06/10/21 13:11 Admit Provider: Nav Albarado Attending Provider: Nav Albarado Primary Care Provider: Antonella Lucas Hospital Course Hospital Course: This is a 70 yo male with a PMH of CAD, CKD, recently admitted to [facility] for allergic reaction with urticaria and swelling of tongue. He presented to the ED currently with c/o left knee pain, swelling and redness for approximately the past 1.5 weeks. His work up consistent with septic arthritis and found to have a left anterolateral leg abscess with osteomyelitis. He underwent 2 surgical debridements with arthroscopic synovectomy of that knee but continued to have evidence of ongoing infection so ultimately went back a third time for an open synovectomy and debridement of the left knee with placement of an antibiotic spacer with intramedullary rods. His blood cultures have been negative since June 19, 2021. He has been medically stable and working with physical therapy and progressing. He is not safe for discharge to home and physical therapy recommends ongoing inpatient rehabilitation. He will be discharged to swing level care for ongoing care. discharge discussed with DR Galo. Home Meds and New Rx's Prescriptions: No Action sildenafil [Viagra] 50 MG tablet 50 mg PO DAILY PRN0RF nitroglycerin [Nitrostat] 0.4 MG tablet, sublingual 0.4 mg Sublingual PRN PRN0RF epinephrine 0.3 MG/0.3 ML auto-injector 0.3 mg IM PRN PRN0RF insulin aspart U-100 [Novolog Flexpen U-100 Insulin] 100 unit/mL (3 mL) insulin pen 15 - 17 unit SUBCUT DIRECTED 0RF Label Comments: INJECT UNDER THE SKIN FOUR TIMES DAILY ON SLIDING SCALE DIRECTED. MAXIMUM DAILY DOSE IS 60 UNITS metoprolol tartrate 75 mg tablet 50 mg PO BID 0RF Label Comments: TAKE 1 TABLET BY MOUTH TWICE DAILY clopidogrel 75 mg tablet 75 mg PO DAILY 0RF Label Comments: TAKE 1 TABLET BY MOUTH EVERY DAY cetirizine 10 mg tablet 10 mg PO DAILY PRN0RF Label Comments: TAKE 1 TABLET BY MOUTH EVERY DAY NEEDED FOR HIVES levothyroxine 25 mcg tablet 25 mcg PO DAILY 0RF Label Comments: TAKE 1 TABLET BY MOUTH DAILY celecoxib 100 mg capsule 100 mg PO BID PRN (Reason: Pain) 0RF magnesium oxide 400 mg magnesium tablet 800 mg PO BID 0RF Label Comments: Take 1 tablet by mouth once a day metformin 500 mg Tablet 500 mg PO BID 0RF furosemide [Lasix] 20 mg Tablet 20 mg PO QAM 0RF Lantus Solostar U-100 Insulin 100 unit/mL (3 mL) Insulin Pen 22 unit SUBCUT QPM 0RF rosuvastatin 10 mg Tablet 10 mg PO DAILY Qty: 30 0RF montelukast 10 mg Tablet 10 mg PO DAILY Qty: 30 0RF Discharge Instructions Instructions: Septic Arthritis (DC), Bacteremia (DC) Referrals: Antonella Lucas PA [Primary Care Provider] - Activity:: Activity as Tolerated Equipment/Supplies:: No Equipment Needed Diet:: As Tolerated Discharge Orders Discharge Orders: Discharge Order (Routine); Ordered 07/01/21 Ordered By: Andie Sotelo Discharge Data Discharge Date/Time-TO BE ENTERED AT DEPARTURE: 07/01/21 17:18 DS: Summary Time Spent with Patient providing and/or coordinating discharge services: Greater than 30 minutes Status at Discharge Functional status at discharge: uses cane/walker Overall status at discharge: patient is progressing back to baseline Mental Status: mental status grossly normal Speech and Movement: speech and movement normal Mood: congruent mood Affect: normal affect Exam Const General: cooperative, no acute distress, frail appearing and ill appearing chronically Nutritional Appearance: average body habitus Orientation: alert, awake and oriented x3 HENMT Head: normal to inspection, normocephalic and atraumatic Mouth: oral mucosae normal Neck Neck: normal visual inspection Chest Chest: normal inspection of the chest Resp Effort & Inspection: normal respiratory effort Auscultation: clear to auscultation bilaterally Cardio Rate: regular rate Rhythm: regular rhythm GI Inspection: normal to inspection Palpation: soft Auscultation: normal bowel sounds Skin Lesions: other (no visualized, dressing dry and intact. ) Rashes: no rashes Neuro General: patient alert, patient awake and patient oriented x3 Extrem General: edema (left > right) Psych Mental Status: mental status grossly normal Speech and Movement: speech and movement normal Mood: congruent mood Affect: normal affect DS: Data Vitals/I&O Vitals and I&O: Vital Signs Temperature 36.6 C 07/01/21 06:33 Temperature Source Tympanic 07/01/21 06:33 Pulse 85 07/01/21 06:33 Pulse Rhythm Regular 07/01/21 10:56 Pulse 79 06/12/21 11:01 Respiratory Rate 18 07/01/21 06:33 Respiratory Effort Non-Labored 07/01/21 10:56 Respiratory Depth Normal 07/01/21 10:56 Respiratory Pattern Normal 07/01/21 10:56 Blood Pressure 152/66 H 07/01/21 06:33 Blood Pressure Mean 65 06/12/21 11:00 Blood Pressure Position Left Lateral 06/12/21 04:00 Pulse Oximetry 95 07/01/21 06:33 Oxygen Delivery Method Room Air 07/01/21 06:33 Oxygen Flow Rate 0 07/01/21 06:33 Pain Level 6 06/30/21 20:19 Comment 06/27/21 23:50 Intake & Output 06/30/21 07/01/21 07/01/21 23:59 11:59 23:59 Intake Total 120 / 410 580 / 580 Output Total 400 / 1530 1000 / 1000 Balance -280 / -1120 -420 / -420 Weight 113.6 kg Intake: IV 120 / 170 100 / 100 Oral 480 / 480 Output: Urine 400 / 1530 1000 / 1000 Other: Urine Color Light Kerrie Yellow Urine Appearance Clear Clear Urine Odor Normal Normal Voiding Methods Urinal Urinal Data Completed and Pending Labs on day of discharge: Labs from last 24 hours 07/01/21 07/01/21 07/01/21 06:40 06:40 06:40 WBC 9.65 RBC 2.85 L Hgb 7.8 L Hct 25.6 L MCV 89.8 MCH 27.4 MCHC 30.5 L RDW 14.8 H Plt Count 464 H MPV 8.1 Immature Gran % 0.4 Neutrophils % 75.8 Lymphocytes % 10.8 Monocytes % 9.9 Eosinophils % 2.1 Basophils % 1.0 Nucleated RBC % 0.0 Absolute Neutrophils 7.31 H Absolute Lymphocytes 1.04 L Absolute Monocytes 0.96 H Absolute Eosinophils 0.20 Absolute Basophils 0.10 ESR 50 H Sodium 137 Potassium 3.7 Chloride 102 Carbon Dioxide 27.3 Anion Gap 7.7 BUN 19 H Creatinine 1.4 H Estimated GFR/1.73 m2 50.25 Glucose 146 H Calcium 7.7 L Magnesium 1.6 L Total Bilirubin 0.2 AST 54 H ALT 23 Alkaline Phosphatase 86 C-Reactive Protein 6.17 H Total Protein 6.4 Albumin 1.3 L Preliminary micro results at discharge 06/28/21 01:03 Blood Culture - Preliminary Blood NO GROWTH 72 HOURS 06/28/21 00:55 Blood Culture - Preliminary Blood NO GROWTH 72 HOURS PFSH All Active Problems (Updated 06/29/21 @ 18:24 by Andie Sotelo NP) Discharge planning issues (Acute) Fever (Acute) Hypothyroidism (Chronic) Diabetes mellitus type 2 in obese (Acute) MSSA bacteremia (Acute) Cutaneous abscess of left knee (Acute) Septic arthritis of knee, left (Acute) DVT prophylaxis (Acute) CKD (chronic kidney disease) (Chronic) Acute anemia (Acute) Septic arthritis (Acute) CAD (coronary artery disease) (Chronic) Acute kidney injury superimposed on CKD (Acute) Closed left clavicular fracture (Acute 09/07/18) Medical History Diabetes Heart attack Hypercholesterolemia Hypertension Lip swelling Social History Smoking/Tobacco Use Status: Former Tobacco Use Quit Date: 12/22/18 Tobacco: How many years used: 50 Smoking risk assessment performed?: Yes Alcohol Intake: current Alcohol Intake frequency: 3 or more drinks per day Alcohol type: beer Substance use type: does not use Do you feel safe at home: Yes Do you feel safe in your relationship?: Yes
[2021-07-01 15:15] VITALS: BP 121/70; PULSE 80; RESP 20; TEMP 36.7; O2SAT 97
== END 2021-07-01 17:18 | disposition swing bed (61) | DRG 486 ==
LOC: ER 13:34 → ICU 14:08 → MS 06-12 13:33
PROVIDERS: Internal Medicine; Nurse Anesthetist, Certified Registered; Nurse Practitioner Acute Care; Nurse Practitioner Family; Student in an Organized Health Care Education/Training Program; Admitting Provider Family Medicine; Emergency Provider Physician Assistant; PCP Physician Assistant Medical; Visit Provider Family Medicine
PROC: 0H9LXZZ Drainage of Left Lower Leg Skin, External Approach (ICD-10-PCS; CPT 29870; principal; 2021-06-11 17:45)
PROC: 0H9LXZZ Drainage of Left Lower Leg Skin, External Approach (ICD-10-PCS; CPT 10061; 2021-06-11 17:45)
PROC: 0SBD4ZZ Excision of Left Knee Joint, Percutaneous Endoscopic Approach (ICD-10-PCS; CPT 29870; principal; 2021-06-18 15:30)
PROC: 0SBD0ZZ Excision of Left Knee Joint, Open Approach (ICD-10-PCS; CPT 27447; principal; 2021-06-25 17:00)
DX: M00.862 Arthritis due to other bacteria, left knee (principal); M86.262 Subacute osteomyelitis, left tibia and fibula; K92.1 Melena; L02.416 Cutaneous abscess of left lower limb; N17.9 Acute kidney failure, unspecified; D62 Acute posthemorrhagic anemia; R78.81 Bacteremia; I25.10 Atherosclerotic heart disease of native coronary artery without angina pectoris; N18.9 Chronic kidney disease, unspecified; Z79.4 Long term (current) use of insulin; Z79.84 Long term (current) use of oral hypoglycemic drugs; I25.2 Old myocardial infarction; E78.00 Pure hypercholesterolemia, unspecified; I12.9 Hypertensive chronic kidney disease with stage 1 through stage 4 chronic kidney disease, or unspecified chronic kidney disease; Z87.891 Personal history of nicotine dependence; E11.22 Type 2 diabetes mellitus with diabetic chronic kidney disease; E11.65 Type 2 diabetes mellitus with hyperglycemia; L89.891 Pressure ulcer of other site, stage 1; W18.39XA Other fall on same level, initial encounter; Y92.230 Patient room in hospital as the place of occurrence of the external cause; E03.9 Hypothyroidism, unspecified; B95.61 Methicillin susceptible Staphylococcus aureus infection as the cause of diseases classified elsewhere
CPT/HCPCS: 10061; 97597; 29876 ×2; 29880; 11043; 20700; 27335; 20702; 27360; 20610; 36410; 36415; 36416; 36569; 36592; 71045; 73562; 76942; 80048; 80053; 82805; 82962; 84145; 85652; 86850; 86900; 86901; 86920; 87040; 87077; 87081; 87635; 87637; 93005; 93306; 93308; 96361; 96365; 96366; 96367; 96375; 97110; 97162; 97530; 99223; 99291; 73560; 73701; 80202; 83036; 83605; 83735; 85014; 85018; 85025; 86140; 87070; 87075; 87186; 87205; 89051; 89060; 93010; 99231; 99232; 99233; 99239; J0690; J1100; J1170; J1644; J1720; J1756; J2001; J2370; J2405; J2543; J2704; J2997; J3010; J3475; J3490; J7042; P9016

== ENCOUNTER 2021-07-01 16:18 | Inpatient (IN) | payer MEDICARE, MEDICAID, SELFPAY ==
--- NOTE | 2021-07-01 16:20 | W.PM.HP.N ---
Date of service: 07/01/21 Time of Service: 16:20 Assessment and Plan Assessment and plan (1) Septic arthritis of knee, left: Status: Acute Assessment and plan: Present on admission, due to MSSA. Negative blood cx since 06/19 PICC placed 06/21 Cefazolin 2 gm? q 8 H lactobacillus daily pain management bowel management OR on 06/25/2021 for irrigation and debridement of left leg including subcutaneous tissues, muscle and bone Open synovectomy and debridement of the left knee with placement of an antibiotic spacer with intramedullary rods followed by orthopedics. plan is for 6 weeks of IV antibiotics which should be through July 31, then will downstep to oral for 6 months. (2) MSSA bacteremia: Status: Acute Assessment and plan: blood cultures 06/15: MSSA. Blood cultures 06/16, 06/17 NGTD. Blood cultures 06/19: NGTD. Source - septic knee. Continue Ancef 2 gm IV q8h. TTE negative. (3) Diabetes mellitus type 2 in obese: Status: Acute Assessment and plan: continue diabetic diet continue sliding scale with coverage as needed. continue lantus 12 units (home dose is 22 units).? adjust as needed hemoglobin A1C 8.9 (4) CKD (chronic kidney disease): Status: Chronic Assessment and plan: Cr Stable. continue to monitor renal dosing, avoid nephrotoxic drugs. (5) Acute anemia: Status: Acute Assessment and plan: Multifactorial, post-op as well as due to GI bleed and dilutional. No active bleeding. Hold all agents that would cause bleeding. He did have an episode of bright red blood, he does have internal hemorrhoids. Will sumeet anusol for this and monitor Continue to monitor Hgb down from 8.2 to 7.6 today continue carafate, PPI and iron supplementation.? (6) DVT prophylaxis: Status: Acute Assessment and plan: teds and scds (7) Discharge planning issues: Status: Acute Assessment and plan: case management following, plan will be discharge to home when ready. discussed with DR Galo. History of Present Illness History of Present Illness Chief Complaint: left knee infection, Narrative: This is a 70 yo male with a PMH of CAD, CKD, recently admitted to [facility] for allergic reaction with urticaria and swelling of tongue. He presented to the ED currently with c/o left knee pain, swelling and redness for approximately the past 1.5 weeks. His work up consistent with septic arthritis and found to have a left anterolateral leg abscess with osteomyelitis.? He underwent 2 surgical debridements with arthroscopic synovectomy of that knee but continued to have evidence of ongoing infection so ultimately went back a third time for an open synovectomy and debridement of the left knee with placement of an antibiotic spacer with intramedullary rods.? His blood cultures have been negative since June 19, 2021.? He has been medically stable and working with physical therapy and progressing. ? He is not safe for discharge to home and physical therapy recommends ongoing inpatient rehabilitation.? He will be admitted to [facility] for ongoing care. Review of Systems All systems reviewed & are unremarkable except as noted in HPI and below PFSH All Active Problems (Updated 06/29/21 @ 18:24 by Andie Sotelo NP) Discharge planning issues (Acute) Fever (Acute) Hypothyroidism (Chronic) Diabetes mellitus type 2 in obese (Acute) MSSA bacteremia (Acute) Cutaneous abscess of left knee (Acute) Septic arthritis of knee, left (Acute) DVT prophylaxis (Acute) CKD (chronic kidney disease) (Chronic) Acute anemia (Acute) Septic arthritis (Acute) CAD (coronary artery disease) (Chronic) Acute kidney injury superimposed on CKD (Acute) Closed left clavicular fracture (Acute 09/07/18) Medical History Diabetes Heart attack Hypercholesterolemia Hypertension Lip swelling Social History Smoking/Tobacco Use Status: Former Tobacco Use Quit Date: 12/22/18 Tobacco: How many years used: 50 Smoking risk assessment performed?: Yes Alcohol Intake: current Alcohol Intake frequency: 3 or more drinks per day Alcohol type: beer Substance use type: does not use Do you feel safe at home: Yes Do you feel safe in your relationship?: Yes Meds Allergies and Home Medications Allergies Allergy/AdvReac Type Severity Reaction Status Date / Time lisinopril Allergy Severe Anaphylaxis Unverified 06/10/21 10:26 varenicline tartrate Allergy Unknown Unverified 06/10/21 10:26 [From Chantix] hornet Allergy facial/throat Uncoded 06/10/21 10:26 swelling Home Medications Medication Instructions Recorded Confirmed Type Nitrostat 0.4 mg sublingual tablet 0.4 mg SUBLINGUAL PRN PRN NS 03/01/13 07/01/21 History (nitroglycerin) Viagra 50 mg tablet (sildenafil) 50 mg PO DAILY PRN tab-cap NS 03/01/13 07/01/21 History epinephrine 0.3 mg/0.3 mL 0.3 mg IM PRN PRN NS 03/01/13 07/01/21 History injection, auto-injector furosemide 20 mg tablet (Lasix) 20 mg PO QAM 09/07/18 07/01/21 History insulin glargine 100 unit/mL (3 22 unit SUBCUT QPM 04/27/20 06/10/21 History mL) subcutaneous pen (Lantus Solostar U-100 Insulin) montelukast 10 mg tablet 10 mg PO DAILY #30 tab 05/17/21 07/01/21 Rx rosuvastatin 10 mg tablet 10 mg PO DAILY #30 tab 05/17/21 07/01/21 Rx celecoxib 100 mg capsule 100 mg PO BID PRN 06/10/21 07/01/21 History cetirizine 10 mg tablet 10 mg PO DAILY PRN 06/10/21 07/01/21 History clopidogrel 75 mg tablet 75 mg PO DAILY 06/10/21 07/01/21 History insulin aspart U-100 100 unit/mL 15 - 17 unit SUBCUT DIRECTED 06/10/21 06/10/21 History (3 mL) subcutaneous pen (Novolog Flexpen U-100 Insulin aspart) levothyroxine 25 mcg tablet 25 mcg PO DAILY 06/10/21 07/01/21 History magnesium oxide 800 mg PO BID 06/10/21 06/10/21 History metoprolol tartrate 75 mg tablet 50 mg PO BID 06/10/21 06/10/21 History metformin 500 mg tablet 500 mg PO BID 06/23/21 07/01/21 History Exam Const General: cooperative, comfortable and no acute distress Nutritional Appearance: overweight Orientation: alert, awake and oriented x3 HENMT Head: normal to inspection, normocephalic and atraumatic Resp Effort & Inspection: normal respiratory effort Auscultation: clear to auscultation bilaterally Cardio Rate: regular rate Rhythm: regular rhythm GI Inspection: normal to inspection Palpation: soft Skin Lesions: other (surgical wound not visualized) Neuro General: patient alert, patient awake and patient oriented x3 Cognition: normal cognition Speech: speech normal Extrem General: edema Laterality: left (lower) and other (bulky dressing to left knee, no redness proximal or distal to dressing. )
[2021-07-01] MEDS: oxyCODONE 5 MG TAB PO (17:49)
[2021-07-01] MEDS: Insulin Aspart 300 UNITS/3 ML PEN SC ×3 (17:50→21:42)
--- NOTE | 2021-07-01 17:53 | CM.SBPSYCH ---
- If Service Date Differs Date of service: 07/01/21 Time of Service: 17:54 SB Psychosocial/Act.Assessment - Hospital Admission Admission Date: 06/10/21 Admission From:: ED Diagnosis:: Septic Arthritis of left knee - Swing Bed Admission Swing Bed Admit Date:: 07/01/21 Swing Bed Level of Care: Level 1/SNF - Social Supports PREVIOUS FUNCTIONAL STATUS/SOCIAL/FAMILY SUPPORTS:: Bear lives in a single family home in [place], [place] with his obinna Pichardo. He has 3 children from a previous marraige all of whom are close by and offer support. 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 He still has a large woodworking shop which he uses. Bear is independent at baseline and receives no community services. - Prior to Admission Living Arrangements/Environment Prior to Admission:: Bear lives in an apartment in [facility], however he spends much of his time in [place] on his grandfather's farm with his obinna Pichardo. Bear is independent at baseline and receives no community services. - Education Highest Grade Completed:: 11 - Work History Employment Status:: retired - : No 's Spouse: No - Benefits Financial: Social Security, Medicare - Scientology Active Roman Catholic Member:: No - Advance Directives for Healthcare If no AD, do you want more information:: No - Interests Hobbies:: woodworking Sports:: pistol target shooting Music:: country TV/Movies:: [employer] shows, [place] Outdoor Activities:: mowing large lawns Gardening:: Bear has large gardens and enjoys gardening - Present Functional Status Physical Abilities:: somewhat limited by left knee issues Cognitive:: good Communication:: good Sensory Systems: wears glasses. Bear is hard of hearing and likely can use hearing aids Behavior:: appropriate - Medical History PAST MEDICAL HISTORY/PAST SURGICAL HISTORY:: All Active Problems (Updated 06/10/21 @ 16:11 by Nav Albarado MD). DVT prophylaxis (Acute). CKD (chronic kidney disease) (Chronic). Acute anemia (Acute). Septic arthritis (Acute). Acute GI bleeding (Acute). Anaphylactic reaction due to adverse effect of correct drug or medicament properly administered, initial encounter (Acute). CAD (coronary artery disease) (Chronic). Acute kidney injury superimposed on CKD (Acute). Closed left clavicular fracture (Acute 09/07/18). Medical History . Diabetes. Heart attack. Hypercholesterolemia. Hypertension. Lip swelling General Health:: fair to good Past Psychiatric Treatment:: none - Admission Data Reason for Swing Bed Admission:: complete IV antibiotics and PT Discharge Plan:: Bear will be discharged home when he is medically ready. He may return home prior to the completion of his IV antibiotics; if so, he will have home infusions until completed. Bear will follow up with his community providers and plan of care and transport with family. Assessment: Bear will remain in SB-1 status until cleared by PT and/or his IV antibiotic course is completed. Water Meter Mechanic: Traci Edge Date Assessment was completed:: 07/01/21
--- NOTE | 2021-07-01 17:57 | CMSCP_ITS ---
- If Service Date Differs Date of service: 07/01/21 Time of Service: 17:57 Swingbed Plan of Care Plan of care: SWING BED PROGRAM ACTIVITIES/DISCHARGE PLAN OF CARE ACTIVITIES PLAN Date:07/01/21 Identified Need: individualized activity plan Intervention/Plan:Offer activity cart items, pet therapy and music therapy when available Initials [facility] [place] DISCHARGE PLAN Date:07/01/21 Identified Need: Safe discharge plan Intervention/Plan: Bear will be discharged home with new home health services and possibly home infusions to complete his IV antibiotic course. He will follow up with his community providers and plan of care and transport with family. Initials: [facility] [place]
[2021-07-01] MEDS: Ferrous Sulfate 325 MG TAB PO (20:11)
[2021-07-01] MEDS: Metoprolol 50 MG TAB PO (20:11)
[2021-07-01] MEDS: Pantoprazole 40 MG TABCR PO (20:11)
[2021-07-01] MEDS: Magnesium Oxide 400 MG TAB 800 MG PO (20:12)
[2021-07-01] MEDS: Gabapentin 100 MG CAP PO (20:12)
[2021-07-01] MEDS: ceFAZolin 2 GM/50 ML BAG IVPB (20:12)
[2021-07-01] MEDS: Sucralfate 1 GM TAB PO (21:28)
[2021-07-01] MEDS: Insulin Glargine 300 UNITS/3 ML PEN 12 UNITS SC (21:31)
[2021-07-01] MEDS: Normal Saline Flush 10 ML SYR IVP (22:37)
[2021-07-02] MEDS: ceFAZolin 2 GM/50 ML BAG IVPB ×3 (04:21→20:51)
[2021-07-02 06:15] VITALS: BP 141/68; PULSE 85; RESP 16; TEMP 36.8; O2SAT 92
[2021-07-02] MEDS: Levothyroxine 25 MCG TAB PO (06:15)
[2021-07-02] MEDS: Pantoprazole 40 MG TABCR PO ×2 (06:30→20:50)
[2021-07-02] MEDS: Sucralfate 1 GM TAB PO ×4 (06:31→22:25)
[2021-07-02 08:53] VITALS: BP 139/68; PULSE 85; RESP 18; TEMP 36.8; O2SAT 96
[2021-07-02] MEDS: Insulin Aspart 300 UNITS/3 ML PEN SC ×6 (08:54→17:42)
[2021-07-02] MEDS: Normal Saline Flush 10 ML SYR IVP ×5 (08:55→20:52)
[2021-07-02] MEDS: Aspirin 325 MG TAB PO (08:56)
[2021-07-02] MEDS: Magnesium Oxide 400 MG TAB 800 MG PO ×2 (08:57→20:49)
[2021-07-02] MEDS: Gabapentin 100 MG CAP PO ×3 (08:58→20:51)
[2021-07-02] MEDS: Ferrous Sulfate 325 MG TAB PO ×2 (08:58→20:51)
[2021-07-02] MEDS: Rosuvastatin 10 MG TAB PO (08:59)
[2021-07-02] MEDS: Montelukast 10 MG TAB PO (08:59)
[2021-07-02] MEDS: Metoprolol 50 MG TAB PO ×2 (08:59→20:51)
[2021-07-02] MEDS: Cetirizine 10 MG TAB PO (08:59)
[2021-07-02] MEDS: oxyCODONE 5 MG TAB PO ×2 (10:11→16:04)
[2021-07-02] MEDS: Alteplase 2 MG VIAL (10:18)
[2021-07-02] MEDS: Water,Injection,Sterile 10 ML VIAL (10:19)
--- NOTE | 2021-07-02 10:38 | IN_ITS ---
Date of service: 07/02/21 Time of Service: 10:38 PT Notes Visit Reasons: SWINGBED Swing Bed I Initial Physical Therapy Evaluation Date: 07/02/2021 Referring Doctor: Andie Sotelo NP PT Orders: PT CONSULT: Eval/treat Precautions: Fall. Standard.? Weight bearing as tolerated on the left LE with AD.? Per Dr. Rice, no flexion in the L knee beyond 90 degrees.? No pillow directly under the L knee. Patient Profile/Admitting Diagnosis: Bear is a 70-year-old male who presented to the ED with increased pain, swelling, and redness of the left knee and leg and decreased ability to move set extremity that had been going on 1-1/2 weeks prior. ? Patient is diagnosed with septic arthritis, acute GI bleeding, coronary artery disease, diabetes mellitus, hypertension, and hypercholesterolemia.? Patient is status post debridement and lavage for infection and I&D of abscess on 06/11/21, 06/18/21, and 06/25/21. PMHX: All Active Problems?(Updated 06/10/21 @ 16:11 by Nav Albarado MD) DVT prophylaxis (Acute) CKD (chronic kidney disease) (Chronic) Acute anemia (Acute) Septic arthritis (Acute) Acute GI bleeding (Acute) Anaphylactic reaction due to adverse effect of correct drug or medicament properly administered, initial encounter (Acute) CAD (coronary artery disease) (Chronic) Acute kidney injury superimposed on CKD (Acute) Closed left clavicular fracture (Acute 09/07/18) Medical History? Diabetes Heart attack Hypercholesterolemia Hypertension Lip swelling Social History/Home Situation: Independent with all ADL performance without an assistive device.? Lives with fianc? in a private home.? 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 Equipment Owned/DME: None Subjective: Patient is agreeable to continuing with L lower extremity rehabilitation under swing bed level I. He hopes to go directly go home once discharged from the hospital. Feels that he is able to move a lot better. Did not have a lot of pain when he sat up in bed early this morning. Did bring up the issue of his R shoulder bothering him still after the chair push ups he was asked to do yesterday. Mildly anxious about the reduction in his dosage of his Oxycontin as he will be loooking at doing more with PT moving onwards. Patient was informed about bringing this up with nurse and MD. Objective: General Observation: Wound dressing to left LE.? PICC line through the R UE. Mental Status: Alert and oriented as to person, place, time, and purpose. Able to pay attention, focus, and respond appropriately. Pain: 2-3/10 in the left LE with rest, 4/10 with weight bearing ROM: Right Upper Extremity: ? Shoulder Flexion WFL. Shoulder abduction WFL. Elbow flexion WFL. Wrist flexion WFL. Functional opening and closing of hand WFL. Left Upper Extremity:? Shoulder Flexion WFL. Shoulder abduction WFL. Elbow flexion WFL. Wrist flexion WFL. Functional opening and closing of hand WFL. Right Lower Extremity: Hip flexion WFL. Hip abduction WFL. Knee flexion WFL. Ankle dorsiflexion WFL. Ankle plantarflexion WFL. Left Lower Extremity: Able to slide left heel to about 90 degrees of knee flexion and hip flexion while in bed.? Knee extensors -30 degrees.? Able to slide R LE out to about 10 degree and then uses a leg mixer operator to to let it safely hang to edge of bed. Strength: Right Upper Extremity: Shoulder flexors 4/5. Shoulder abductors 4/5. Elbow flexors 5/5. Elbow extensors 5/5. English Composition Instructor strong. Left Upper Extremity: Shoulder flexors 4/5. Shoulder abductors 4/5. Elbow flexors 5/5. Elbow extensors 5/5. English Composition Instructor strong. Right Lower Extremity: Hip flexors 5/5. Hip abductors 5/5. Knee flexors 5/5. Knee extensors 5/5. Ankle dorsiflexors 5/5. Ankle plantarflexors 5/5. Left Lower Extremity: ? Hip flexors 3-/5. Hip abductors 2-/5. Knee flexors 3-/5. Knee extensors 3-/5. Ankle dorsiflexors 4-/5. Ankle plantarflexors 4/5. ? Bed Mobility/Transfers: Supine to sit stand by assist using leg mixer operator for L LE Sit to stand with stand by assist with FWW Stand to sit with stand by assist with FWW Bed to reclining stand by assist with FWW Gait: Instructed patient with level surface ambulation of 30 feet +20 feet +30 feet 50 feet using front wheel walker with wheelchair follow needed for safety. Re quiring stand by assist.? L knee midstance now more stable with increasing knee extension on the L during and improving strength in L quads.? Trunk now more erect and able to put full weight onto L LE.? Patient reports 4/10 pain in the L knee that subsided with rest. Balance: Static Sitting: Normal Dynamic Sitting: Normal Static Standing: Fair Dynamic Standing: Fair Special Tests: Mobility Limitations Standardized Measure [facility] 6 clicks Basic Mobility Inpatient Short Form: Raw Score: 20 ? CMS Score: 36% deficit? ? ? Informed Consent/Education:? Patient has been updated about the PT plan of care and is in agreement of said paln to achieve goals below. ASSESSMENT: Pain tolerance is improving.? Gait pattern and safety of ambulation improving.? AROM and strength to L knee joint and muscles improving.? Patient is converted to swing bed level I as of 07/01/2021 and is re-evaluated today for continued PT services.? Patient presents with clinical signs and symptoms consistent with current/admitting diagnoses that have resulted to mobility limitations, gait instability, generalized weakness, and overall ADL decline as demonstrated by the following impairment level findings: 1.? Decreased strength to left LE major muscle groups 2.? Impaired sitting/standing balance 3.? Impaired activity tolerance 4.? Limitation of joint range of motion in L knee joint 5.? Pain in the L knee/L LE Impairments are contributing to the following functional limitations: 1.? Decline in bed mobility skills 2.? Decline in transfer skills 3.? Difficulty with ambulation without assistive device and physical assistance 4.? Increased completion time for mobility ADL performance 5.? Increased risk for falls 6.? Difficulty with managing steps alone safely Patient is assessed as a 57610 moderate complexity based on the following: History: 70-year-old male with past medical history as indicated above Examination: Improving ability as evidenced by increments in strength, balance, and mobility level with underlying impairments and functional limitations as exhibited above as well as deficit score of 36% utilizing the [facility] Mobility Inpatient Short Form Presentation: Evolving Decision Makin moderate complexity Goals: Goals X1 week 1. Supine-Sit independent 2. Sit-Supine independent 3. Sit-Stand independent 4. Stand-Sit independent with FWW NOT 5. Bed-Chair independent with FWW NOT 6. Chair-Bed independent with FWW NOT 7. Independent gait on level surface with use of FWW for at least 300 feet without report of pain nor dyspnea 8. Independent stair negotiation while holding onto B rails for at least 5 steps without report of pain nor dyspnea 9. Independent with home exercise program 10. Good static and dynamic standing balance/tolerance Plan of Care/Treatment Plan: 1-2x/day, Mondays through Fridays for 2 weeks. Continue with pain management strategies, range of motion exercises, functional mobility training, balance retraining, patient education and training on HEP, and safe discharge planning. DISCHARGE RECOMMENDATIONS: [] ? Home with no services [] [X] ? Home with services. Home when medically cleared by hospitalist and/or orthopedic surgeon. Patient will benefit from home health PT services in order to progress mobility level using least restrictive assistive ambulatory device, assess home safety, identify additional equipment needs, and establish a functional maintenance program that will increase ability of patient to remain at home. May transition to outpatient PT services for continued rehabitation as needed. [] ? Home with outpatient PT [] [] ? SNF for continued rehabilitation [] [] ? [facility] [] [] ? SNF versus LTC based on ability to participate and progress [] TREATMENT CODE/TIME: 74863 x 32 minutes beginning at 10:38 AM. Thank you for the opportunity to participate in the care of this patient. Barb Araiza PT, DPT, CLT [facility] [place], [place]
[2021-07-02] MEDS: Normal Saline 500 ML 30 ML IV (12:49)
[2021-07-02 14:48] VITALS: BP 125/74; PULSE 79; RESP 18; TEMP 36.6; O2SAT 96
--- NOTE | 2021-07-02 15:26 | PT.INTREAT ---
Date of service: 07/02/21 Time of Service: 15:26 PT Notes Visit Reasons: SWINGBED Swing Bed I Physical Therapy Treatment Note Date: 07/02/2021 Precautions: Fall. Standard.? Weight bearing as tolerated on the left LE with AD.? Per Dr. Rice, no flexion in the L knee beyond 90 degrees.? No pillow directly under the L knee. Subjective: Requested to do stairs tomorrow morning as he is hurting more this afternoon and his pain pill dosage got decreased. Agreeable to re-doing level surface ambulation and checking out stairs to be sure that he can mentally prepare for tomorrow's activity. Continues to report R shoulder discomfort with weight bearing. States that he has done room exercises more than twice the times he is supposed to and has been hurting. Objective: General Observation: Wound dressing to left LE.? PICC line through the R UE. Mental Status: Alert and oriented as to person, place, time, and purpose. Able to pay attention, focus, and respond appropriately. Pain: 4/10 in the left LE with rest, 6/10 with weight bearing ? Bed Mobility/Transfers: Supine to sit stand by assist using leg bag machine helper for L LE Sit to stand with stand by assist with FWW Stand to sit with stand by assist with FWW Bed to reclining stand by assist with FWW Gait: Instructed patient with level surface ambulation of 30 feet +20 feet +50 feet using front-wheel walker with wheelchair follow needed for safety requiring stand by assist.? L knee midstance now more stable with increasing knee extension on the L during and improving strength in L quads.? Trunk now more erect and able to put full weight onto L LE.? Patient reports 4/10 pain in the L knee that subsided with rest. Balance: Static Sitting: Normal Dynamic Sitting: Normal Static Standing: Fair Dynamic Standing: Fair ASSESSMENT: Emphasized maximizing knee extension on L at each midstance and on increasing step length on R during today's gait training.. Patient demonstrates 100% mastery of HEP performance. Pain tolerance is improving.? Gait pattern and safety of ambulation improving.? AROM and strength to L knee joint and muscles improving.? Patient is converted to swing bed level I as of 07/01/2021. DISCHARGE RECOMMENDATIONS: [] ? Home with no services [] [X] ? Home with services.? Home when medically cleared by hospitalist and/or orthopedic surgeon.? Patient will benefit from home health PT services in order to progress mobility level using least restrictive assistive ambulatory device, assess home safety, identify additional equipment needs, and establish a functional maintenance program that will increase ability of patient to remain at home.? May transition to outpatient PT services for continued rehabilitation as needed. Will need FWW for home. [] ? Home with outpatient PT [] [] ? SNF for continued rehabilitation [] [] ? [facility] [] [] ? SNF versus LTC based on ability to participate and progress [] TREATMENT CODE/TIME: 44115 x 49 minutes beginning at 15:26 PM.
[2021-07-02] MEDS: Insulin Glargine 300 UNITS/3 ML PEN 12 UNITS SC (22:24)
[2021-07-02 23:28] VITALS: BP 117/68; PULSE 73; RESP 19; TEMP 37; O2SAT 97
[2021-07-03] MEDS: ceFAZolin 2 GM/50 ML BAG IVPB ×3 (04:07→19:48)
[2021-07-03] MEDS: Normal Saline Flush 10 ML SYR IVP ×6 (04:07→22:53)
[2021-07-03] MEDS: Levothyroxine 25 MCG TAB PO (05:41)
[2021-07-03 07:28] VITALS: BP 106/73; PULSE 88; RESP 19; TEMP 36.9; O2SAT 94
[2021-07-03] MEDS: Aspirin 325 MG TAB PO (09:06)
[2021-07-03] MEDS: Cetirizine 10 MG TAB PO (09:06)
[2021-07-03] MEDS: Ferrous Sulfate 325 MG TAB PO ×2 (09:07→19:45)
[2021-07-03] MEDS: Gabapentin 100 MG CAP PO ×3 (09:07→19:45)
[2021-07-03] MEDS: Insulin Aspart 300 UNITS/3 ML PEN SC ×7 (09:08→21:53)
[2021-07-03] MEDS: Magnesium Oxide 400 MG TAB 800 MG PO ×2 (09:11→19:44)
[2021-07-03] MEDS: Metoprolol 50 MG TAB PO ×2 (09:12→19:45)
[2021-07-03] MEDS: Montelukast 10 MG TAB PO (09:12)
[2021-07-03] MEDS: Sucralfate 1 GM TAB PO ×4 (09:13→22:07)
[2021-07-03] MEDS: Pantoprazole 40 MG TABCR PO ×2 (09:13→19:44)
[2021-07-03] MEDS: Rosuvastatin 10 MG TAB PO (09:13)
[2021-07-03] MEDS: oxyCODONE 5 MG TAB PO (10:58)
[2021-07-03] MEDS: Acetaminophen 325 MG TAB PO (10:58)
[2021-07-03 14:45] VITALS: BP 95/55; PULSE 77; RESP 18; TEMP 37; O2SAT 97
--- NOTE | 2021-07-03 14:46 | PT.INTREAT ---
PT Notes Visit Reasons: SWINGBED Inpatient Physical Therapy Treatment Note [facility] Date: 07/02/2021 PRECAUTIONS: WBAT L LE, Fall, Activity as tolerated SUBJECTIVE: Bear states that he feels he overdid it yesterday because his hand and shoulder are bothering him. He is anxious about attempting stair training today. OBJECTIVE: PAIN: Patient c/o shoulder and hand/wrist pain with use of FWW and with transfers BED MOBILITY/TRANSFERS Supine-sit: S with HOB at 20 degrees Sit-supine: Sit-stand: SBA Stand-sit: SBA Bed-Chair: Chair-bed: GAIT Assistive Device: FWW Weight bearing: Full Assist: SBA Distance: 30' + 20' + 50' in a.m.; 30' + 30' in p.m. Deviation: SOB, UE fatigue, cueing for decreased L knee flexion, cueing for increased WB on L LE, cueing for step-through gait pattern THEREX: Patient was instructed in a LE strengthening and stabilization program, completed in a long sitting position, as per flow sheet. STAIRS: Up/down 3x4 using B rails and a step-to pattern with CGA and constant cueing for sequence. ASSESSMENT: Patient tolerated session with c/o increased hand/wrist and shoulder pain with transfers and gait training with use of FWW. He appears limited due to his significant deconditioning. PLAN: Continue with global strengthening and general conditioning for improved mobility and activity tolerance. TREATMENT CODE/TIME: Session 1: 40 minutes; 02500 x3 (10:04) Session 2: 33 minutes; 12445 x2 (14:49)
--- NOTE | 2021-07-03 15:58 | W.PM.PROGNOT ---
Date of Service Date of service: 07/03/21 Time of Service: 14:15 Assessment and Plan Assessment and plan (1) Septic arthritis of knee, left: Status: Acute (2) Subacute osteomyelitis, left tibia and fibula: Status: Suspected Assessment and plan: Bear is a 71yo male who has osteomyelitis, deep abscess and septic arthritis of the left knee and leg. He is s/p multiple surgeries and antibiotic spacer placement. He is making good progress. He is on appropriate antibiotics. Complete duration should be determined by ID but I would imagine at least 4 weeks of IV antibiotics and 2 weeks form the most recent surgery with a prolonged oral antibiotic course given his improvement. Continue with PT. Dressing change PRN. Discharge planning. Subjective Subjective Interval history since last seen: Bear reports to be doing well. He does have pain with ambulation but has made good improvements. He was able to walk to the end of the hallway and go up the practice stairs. No fevers no chills. Exam Narrative Exam Narrative: Resting in the bed. NAD. AAOx3. LLE dressings intact. Able to demonstrate some quad activitation. Weak ADF, little EHL function. SILT DP/SP/Tib. Palpable DP pulse. Objective Last Vital Signs Temp 37.0 C 07/03/21 14:45 Pulse 77 07/03/21 14:45 Resp 18 07/03/21 14:45 BP 95/55 L 07/03/21 14:45 Pulse Ox 97 07/03/21 14:45
[2021-07-03] MEDS: Insulin Glargine 300 UNITS/3 ML PEN 12 UNITS SC (21:50)
[2021-07-03 23:52] VITALS: BP 102/57; PULSE 78; RESP 16; TEMP 38.1; O2SAT 95
[2021-07-04] VITALS (12 sets, daily range): BP systolic 95–138; BP diastolic 56–75; PULSE 79–84; RESP 12–20; TEMP 36.2–38.1; O2SAT 94–98
--- NOTE | 2021-07-04 | DI.US_ITS ---
Exam(s) US UPPER EXTREMITY VENOUS LT EXAM: US UPPER EXTREMITY VENOUS LT CLINICAL HISTORY: FUO, PICC in place TECHNIQUE: GRAYSCALE, COLOR, DOPPLER IMAGING OF THE VENOUS SYSTEM OF THE UPPER EXTREMITY-BILATERAL COMPARISON: CR XR PORTABLE CHEST AP POST LINE from 06/21/2021 FINDINGS: There is a left PICC line in place. Basilic vein: Patent. Normal color-flow and normal compression and augmentation properties. Brachial vein(s):Patent. Normal color flow. Normal compression and augmentation properties. Cephalic vein:Patent. Normal color flow. Normal compression and augmentation properties. Axillary vein: Patent. Normal color flow. Normal compression and augmentation properties. Visualized subclavian vein: Patent. No obvious intraluminal thrombus. IMPRESSION: 1. No evidence of venous thrombosis in the left upper extremity. 2. No evidence of thrombosis along the course of the visualize PICC line. DATA REPOSITORY:
--- NOTE | 2021-07-04 | DI.US_ITS ---
Exam(s) US EXTREMITY VENOUS BI EXAM: US EXTREMITY VENOUS BI CLINICAL HISTORY: FUO TECHNIQUE: Grayscale, color, and doppler imaging of the deep venous system of both lower extremities was performed. COMPARISON: US US UPPER EXTREMITY VENOUS LT from 07/04/2021 FINDINGS: There is no evidence of intraluminal thrombus and there is normal compression and augmentation demons trated within the common femoral veins, femoral veins, and popliteal veins of both lower extremities. In the calves the interrogated veins also exhibit normal compression/ augmentation properties. The greater saphenous veins also appear patent as do the saphenofemoral junctions bilaterally.. IMPRESSION: 1. No ultrasound evidence of DVT in either lower extremity. Moderate edema is noted in the left calf and ankle. DATA REPOSITORY:
[2021-07-04 00:44] LABS: Abs Immature Grans 0.08 10^3/uL (0.0-0.06); Absolute Eosinophil Count 0.37 10^3/uL (0.0-0.7); Absolute Lymphocyte Count 1.38 10^3/uL (1.2-3.4); Absolute Monocyte Count 1.26 10^3/uL (0.1-0.8); Basophils % 0.8; HCT 22.7 % (40.0-50.0); Immature Grans % 0.7; Lymphocytes % 11.3; MCHC 30.8 % (32.0-36.0); MCV 90.8 fL (80-95); MPV 8.3 fL (8.0-11.0); Monocytes % 10.3; Neutrophils % 73.9; Platelet Count 441 10^3/uL (130-400); RDW 15.4 % (11.8-14.1); RDW-SD 50.3 fL
[2021-07-04 00:46] LABS: ESR 29 mm/hr (0-20)
[2021-07-04 00:52] LABS: Absolute Neutrophil Count 9.02 10^3/uL (1.2-6.7)
[2021-07-04 00:53] LABS: C-Reactive Protein 6.41 mg/dL (0.0-0.3)
--- NOTE | 2021-07-04 01:05 | W.PM.PROGNOT ---
Date of Service Date of service: 07/03/21 Time of Service: 23:30 Assessment and Plan Assessment and plan (1) Fever: Status: Acute Assessment and plan: will obtain blood cultures and proceed w/ getting his a.m. CBC, ESR and CRP now along w/ procalcitonin and get UA. I will not change his antibiotics at present as he has done well on the Ancef for MSSA bacteremia and septic arthritis. I will await Dr. Rice's exam of his knee in the a.m. to see if this still appears to be responding to current treatment. Subjective Subjective Interval history since last seen: CTSP regarding fever of 38.3 C. Pt denies any dyspnea, cough or sputum production. He stated that he had felt cold, the room was cold this evening and he had asked that the temp be turned up. However he denies rigors. Slight dysuria when inititiation of his stream. Urine in urinal appears concentrated but clear, rosales. He states that his knee pain is improving. I told him that I would order blood cultures and urine specimen but for now will not change antibiotics. Exam Narrative Exam Narrative: Bear appears comfortable. No rigors and no diaphoresis. Lungs: CTA Heart: RRR L. upper arm has midline/PICC and there is no redness and no induration and the antibiogram dot appears normal. Abdomen: soft, nontender, nondistended Left leg/knee: knee is bandaged, I did not take down the bandage but he has no pain w/ palpation of the knee, thigh or calf and there is no redness over the leg Objective Last Vital Signs Temp 38.1 C H 07/04/21 00:00 Pulse 78 07/03/21 23:52 Resp 16 07/03/21 23:52 BP 102/57 L 07/03/21 23:52 Pulse Ox 95 07/03/21 23:52 Laboratory Results - last 24 hr 07/04/21 07/04/21 07/04/21 00:34 00:34 00:34 WBC 12.20 H RBC 2.50 L Hgb 7.0 L* Hct 22.7 L MCV 90.8 MCH 28.0 MCHC 30.8 L RDW 15.4 H Plt Count 441 H MPV 8.3 Immature Gran % 0.7 Neutrophils % 73.9 Lymphocytes % 11.3 Monocytes % 10.3 Eosinophils % 3.0 Basophils % 0.8 Nucleated RBC % 0.0 Absolute Neutrophils 9.02 H Absolute Lymphocytes 1.38 Absolute Monocytes 1.26 H Absolute Eosinophils 0.37 Absolute Basophils 0.10 ESR 29 H C-Reactive Protein 6.41 H 07/04/21 07/04/21 05:35 05:35 WBC Cancelled RBC Cancelled Hgb Cancelled Hct Cancelled MCV Cancelled MCH Cancelled MCHC Cancelled RDW Cancelled Plt Count Cancelled MPV Cancelled Immature Gran % Neutrophils % Lymphocytes % Monocytes % Eosinophils % Basophils % Nucleated RBC % Absolute Neutrophils Absolute Lymphocytes Absolute Monocytes Absolute Eosinophils Absolute Basophils ESR Cancelled C-Reactive Protein
[2021-07-04 01:14] LABS: Procalcitonin 0.2 ng/mL
[2021-07-04 01:42] LABS: Diff Comment RBC Morph Reviewed; Microcytosis 1+
[2021-07-04 01:43] LABS: Polychromasia Present
[2021-07-04 03:42] LABS: Bilirubin Negative (Negative); Blood Negative (Negative); Clarity Clear (Clear); Glucose Negative (Negative); Ketones Negative (Negative); Leukocyte Esterase Negative (Negative); Nitrite Negative (Negative); Specific Gravity <= 1.005 (1.005-1.025); Urobilinogen 0.2 EU/dL (Up TO 0.2)
[2021-07-04] MEDS: ceFAZolin 2 GM/50 ML BAG IVPB ×3 (03:47→20:52)
[2021-07-04] MEDS: Levothyroxine 25 MCG TAB PO (05:30)
[2021-07-04 07:09] LABS: ALT 17 U/L (16-63); AST 31 U/L (15-37); Albumin 1.5 g/dL (3.4-5.0); Alkaline Phosphatase 89 U/L (46-116); Anion Gap 7.1 mmol/L (3-11); BUN 23 mg/dL (7-18); Bilirubin, Total 0.2 mg/dL (0.2-1.0); C-Reactive Protein 6.41 mg/dL (0.0-0.3); CO2 27.9 mmol/L (21.0-32.0); CREATININE 1.5 mg/dL (0.70-1.30); Chloride 102 mmol/L (98-107); Glucose 124 mg/dL (74-106); Potassium 3.8 mmol/L (3.5-5.1); Sodium 137 mmol/L (136-145); Total Protein 6.5 g/dL (6.4-8.2)
[2021-07-04] MEDS: Aspirin 325 MG TAB PO (07:46)
[2021-07-04] MEDS: Gabapentin 100 MG CAP PO ×3 (07:46→21:03)
[2021-07-04] MEDS: Montelukast 10 MG TAB PO (07:46)
[2021-07-04] MEDS: Cetirizine 10 MG TAB PO (07:46)
[2021-07-04] MEDS: Rosuvastatin 10 MG TAB PO (07:46)
[2021-07-04] MEDS: Sucralfate 1 GM TAB PO ×4 (07:47→21:02)
[2021-07-04] MEDS: Pantoprazole 40 MG TABCR PO ×2 (07:47→21:02)
[2021-07-04] MEDS: Ferrous Sulfate 325 MG TAB PO ×2 (07:47→21:03)
[2021-07-04] MEDS: Metoprolol 50 MG TAB PO ×2 (07:47→21:02)
[2021-07-04] MEDS: Magnesium Oxide 400 MG TAB 800 MG PO ×2 (07:47→21:02)
[2021-07-04] MEDS: Normal Saline Flush 10 ML SYR IVP ×5 (07:49→20:52)
[2021-07-04] MEDS: Insulin Aspart 300 UNITS/3 ML PEN SC ×5 (08:32→17:27)
[2021-07-04] MEDS: Acetaminophen 325 MG TAB PO ×2 (10:50)
[2021-07-04] MEDS: oxyCODONE 5 MG TAB PO ×2 (10:50→18:55)
[2021-07-04] MEDS: diphenhydrAMINE 25 MG CAP PO (14:04)
[2021-07-04] MEDS: Acetaminophen 325 MG TAB 650 MG PO (14:06)
--- NOTE | 2021-07-04 14:48 | CMPROGNOTE_ITS ---
- If Service Date Differs Date of service: 07/04/21 Time of Service: 14:48 Care Management Progress Note S/O:Bear continues to work with PT and has begun to do stairs. He is making slow but steady progress. On Thursday night he had a fever of 38.1 but has been afebrile since. His WBC also bumped up a bit but has returned to normal. He did require another transfusion yesterday as well. Per Dr. Rice's note, Bear should be completing his course of IV antibiotics next week. SHAYNA had a convers ation with Bear and Kylee this afternoon about Bear's discharge. He does not feel quite ready for discharge from a PT perspective but hopes that he will in another few days. 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 A: Bear is a 71 year old man admitted on 06/10/21 with septic arthritis P:Bear will likely be discharged home with new home health services. A prolonged course of IV antibiotics was required and Bear was transitioned to SB- for this reason as well as to continue to work with PT. It is anticipated that his IV antibiotics will be completed next week. Bear will follow up with his PCP and plan of care and transport with family. will continue to provide support to Bear and his discharge needs.
[2021-07-04 14:57] LABS: Source Nasal/Nares
--- NOTE | 2021-07-04 15:39 | PT.INTREAT ---
Date of service: 07/04/21 Time of Service: 10:04 PT Notes Visit Reasons: SWINGBED Inpatient Physical Therapy Treatment Note [facility] Date: 07/04/2021 PRECAUTIONS: WBAT L LE, Fall, Activity as tolerated SUBJECTIVE: Bear is pleasant and agreeable to participating in PT. He feels that he is getting stronger and that his gait mechanics are improving. OBJECTIVE: PAIN: Patient c/o shoulder, hand/wrist, and R knee pain with gait training BED MOBILITY/TRANSFERS Supine-sit: I with HOB at 20 degrees Sit-stand: SBA Stand-sit: SBA GAIT Assistive Device: FWW Weight bearing: Full Assist: SBA Distance: 50' + 35' x2 in both a.m. and p.m. Deviation: SOB, UE fatigue, cueing for decreased L knee flexion, cueing for increased WB on L LE, cueing for step-through gait pattern THEREX: Patient was instructed in a LE strengthening and stabilization program, completed in a long sitting position, as per flow sheet. Also perform passive stretching to R knee flexors as well as gentle AP/PA glides to tibofemoral joint for improved knee extension. ASSESSMENT: Patient tolerated session with c/o increased hand/wrist and shoulder pain with gait training. He appears limited due to his significant deconditioning, although does demonstrate progress with gait mechanics and activity tolerance. He also demonstrates improved R LE strength with ther ex completion. PLAN: Continue with global strengthening and general conditioning for improved mobility and activity tolerance. TREATMENT CODE/TIME: Session 1: 41 minutes; 43322, 33899 (10:04) Session 2: 26 minutes; [id number] x2 (15:02)
--- NOTE | 2021-07-04 16:37 | W.PM.PROGNOT ---
Date of Service Date of service: 07/04/21 Time of Service: 16:37 Subjective Subjective Interval history since last seen: Saw patient in brief follow up. His UA is negative. His Venous dopplers BLEs are negative. Venous doppler LUE is negative. Evaluated by Dr Rice who feels that the knee is actually doing well. COVID test ordered - pending. Blood cultures were repeated - pending. H/H 7.0/22.7 today - blood is being transfused. Objective Last Vital Signs Temp 36.7 C 07/04/21 16:00 Pulse 79 07/04/21 16:00 Resp 14 07/04/21 16:00 BP 106/64 07/04/21 16:00 Pulse Ox 96 07/04/21 16:00 Laboratory Results - last 24 hr 07/04/21 07/04/21 07/04/21 00:34 00:34 00:34 WBC RBC Hgb Hct MCV MCH MCHC RDW Plt Count MPV Immature Gran % Neutrophils % Lymphocytes % Monocytes % Eosinophils % Basophils % Nucleated RBC % Absolute Neutrophils Absolute Lymphocytes Absolute Monocytes Absolute Eosinophils Absolute Basophils RBC Morphology Polychromasia Microcytosis ESR 29 H Sodium Potassium Chloride Carbon Dioxide Anion Gap BUN Creatinine Estimated GFR/1.73 m2 Glucose Calcium Total Bilirubin AST ALT Alkaline Phosphatase C-Reactive Protein 6.41 H Total Protein Albumin Procalcitonin 0.2 Urine Color Urine Clarity Urine pH Ur Specific [place] Urine Protein Urine Ketones Urine Blood Urine Nitrite Urine Bilirubin Urine Urobilinogen Ur Leukocyte Esterase Urine Glucose COVID-19 Source Patient ABO/Rh Antibody Screen Crossmatch 07/04/21 07/04/21 07/04/21 00:34 03:00 05:35 WBC 12.20 H RBC 2.50 L Hgb 7.0 L* Hct 22.7 L MCV 90.8 MCH 28.0 MCHC 30.8 L RDW 15.4 H Plt Count 441 H MPV 8.3 Immature Gran % 0.7 Neutrophils % 73.9 Lymphocytes % 11.3 Monocytes % 10.3 Eosinophils % 3.0 Basophils % 0.8 Nucleated RBC % 0.0 Absolute Neutrophils 9.02 H Absolute Lymphocytes 1.38 Absolute Monocytes 1.26 H Absolute Eosinophils 0.37 Absolute Basophils 0.10 RBC Morphology See Below Polychromasia Present Microcytosis 1+ ESR Cancelled Sodium Potassium Chloride Carbon Dioxide Anion Gap BUN Creatinine Estimated GFR/1.73 m2 Glucose Calcium Total Bilirubin AST ALT Alkaline Phosphatase C-Reactive Protein Total Protein Albumin Procalcitonin Urine Color Yellow Urine Clarity Clear Urine pH 6.0 Ur Specific [place] <= 1.005 Urine Protein Negative Urine Ketones Negative Urine Blood Negative Urine Nitrite Negative Urine Bilirubin Negative Urine Urobilinogen 0.2 Ur Leukocyte Esterase Negative Urine Glucose Negative COVID-19 Source Patient ABO/Rh Antibody Screen Crossmatch 07/04/21 07/04/21 07/04/21 05:35 06:05 11:28 WBC Cancelled RBC Cancelled Hgb Cancelled Hct Cancelled MCV Cancelled MCH Cancelled MCHC Cancelled RDW Cancelled Plt Count Cancelled MPV Cancelled Immature Gran % Neutrophils % Lymphocytes % Monocytes % Eosinophils % Basophils % Nucleated RBC % Absolute Neutrophils Absolute Lymphocytes Absolute Monocytes Absolute Eosinophils Absolute Basophils RBC Morphology Polychromasia Microcytosis ESR Sodium 137 Potassium 3.8 Chloride 102 Carbon Dioxide 27.9 Anion Gap 7.1 BUN 23 H Creatinine 1.5 H Estimated GFR/1.73 m2 46.40 Glucose 124 H Calcium 8.0 L Total Bilirubin 0.2 AST 31 ALT 17 Alkaline Phosphatase 89 C-Reactive Protein 6.41 H Total Protein 6.5 Albumin 1.5 L Procalcitonin Urine Color Urine Clarity Urine pH Ur Specific [place] Urine Protein Urine Ketones Urine Blood Urine Nitrite Urine Bilirubin Urine Urobilinogen Ur Leukocyte Esterase Urine Glucose COVID-19 Source Patient ABO/Rh A Positive Antibody Screen NEGATIVE Crossmatch See Detail 07/04/21 14:30 WBC RBC Hgb Hct MCV MCH MCHC RDW Plt Count MPV Immature Gran % Neutrophils % Lymphocytes % Monocytes % Eosinophils % Basophils % Nucleated RBC % Absolute Neutrophils Absolute Lymphocytes Absolute Monocytes Absolute Eosinophils Absolute Basophils RBC Morphology Polychromasia Microcytosis ESR Sodium Potassium Chloride Carbon Dioxide Anion Gap BUN Creatinine Estimated GFR/1.73 m2 Glucose Calcium Total Bilirubin AST ALT Alkaline Phosphatase C-Reactive Protein Total Protein Albumin Procalcitonin Urine Color Urine Clarity Urine pH Ur Specific [place] Urine Protein Urine Ketones Urine Blood Urine Nitrite Urine Bilirubin Urine Urobilinogen Ur Leukocyte Esterase Urine Glucose COVID-19 Source Nasal/Nares Patient ABO/Rh Antibody Screen Crossmatch
[2021-07-04 19:02] LABS: HCT 26.1 % (40.0-50.0); HGB 7.9 g/dL (13.5-17.5)
[2021-07-04 19:46] LABS: COVID-19 PCR Negative (Negative)
[2021-07-04] MEDS: Insulin Glargine 300 UNITS/3 ML PEN 12 UNITS SC (21:04)
--- NOTE | 2021-07-04 21:45 | W.PM.PROGNOT ---
Date of Service Date of service: 07/04/21 Time of Service: 12:50 Assessment and Plan Assessment and plan (1) Subacute osteomyelitis, left tibia and fibula: Status: Suspected (2) Septic arthritis of knee, left: Status: Acute Assessment and plan: Bear is a 71-year-old who is recovering from left knee septic arthritis and deep abscess with osteomyelitis of the left leg. He has had 3 procedures with the most recent including aggressive irrigation debridement with antibiotic spacer placement. In general, he continues to make subjective improvements. His labs have improved although the most recent CRP it was of no change. He subjectively feels well but he has had recurrence of a fever. My suspicion is that is simply a blip and will continue to improve. He feels better and has less pain. I would continue to mobilize with the intention of trying to get home at some point. He is motivated and seems to be making good progress. I would also default to infectious disease for the total duration of antibiotics both IV and oral but I would advocate for a prolonged oral course after he is deemed ready for transition to oral. If he has recurrence of symptoms or worsening of his clinical picture I would recommend for tertiary referral although I find this will be unlikely. Dressing changes as needed. Weight-bear as tolerated assistive device with no flexion greater than 90 degrees. Subjective Subjective Interval history since last seen: Bear reports to be doing well. He did have a temperature last night and therefore a new work was not performed. However, he does not feel much different. He was able to ambulate yesterday and do some stairs. He reports some pain about the left knee but in general much better than it has been. There was not to be some drainage on his dressing of the left knee. Exam Narrative Exam Narrative: Resting in the bed. No acute distress. Alert and orient x3. Evaluation the left leg shows continued reduction in swelling. The incisions all appear to be healing appropriately. However, the superolateral portal site from previous arthroscopy continues to drain a seropurulent material. It does seem to be communication with the joint. The dressing was changed. There is no surrounding erythema. I do pressure dressing was applied. Range of motion is approximate 10 to 90 degrees without much difficulty and with significantly less pain than previous. He does have weak ankle dorsiflexion and no active EHL function which is his baseline at this point. No change in sensation. No pain to palpation throughout the thigh. No pain down the foot. No pain with hip internal or external rotation. Objective Last Vital Signs Temp 37.3 C 07/04/21 23:20 Pulse 82 07/04/21 23:20 Resp 16 07/04/21 23:20 BP 138/64 07/04/21 23:20 Pulse Ox 95 07/04/21 23:20 Laboratory Results - last 24 hr 07/04/21 07/04/21 07/04/21 11:28 14:30 18:50 WBC RBC Hgb 7.9 L Hct 26.1 L MCV MCH MCHC RDW Plt Count MPV Immature Gran % Neutrophils % Lymphocytes % Monocytes % Eosinophils % Basophils % Nucleated RBC % Absolute Neutrophils Absolute Lymphocytes Absolute Monocytes Absolute Eosinophils Absolute Basophils COVID-19 Source Nasal/Nares SARS-CoV-2 (PCR) Negative Patient ABO/Rh A Positive Antibody Screen NEGATIVE Crossmatch See Detail 07/05/21 05:40 WBC 10.00 RBC 2.77 L Hgb 7.8 L Hct 25.6 L MCV 92.4 MCH 28.2 MCHC 30.5 L RDW 15.2 H Plt Count 456 H MPV 8.6 Immature Gran % 0.6 Neutrophils % 71.0 Lymphocytes % 11.1 Monocytes % 11.4 Eosinophils % 4.7 Basophils % 1.2 Nucleated RBC % 0.0 Absolute Neutrophils 7.10 H Absolute Lymphocytes 1.11 L Absolute Monocytes 1.14 H Absolute Eosinophils 0.47 Absolute Basophils 0.12 COVID-19 Source SARS-CoV-2 (PCR) Patient ABO/Rh Antibody Screen Crossmatch
[2021-07-05] MEDS: ceFAZolin 2 GM/50 ML BAG IVPB ×3 (04:55→20:32)
[2021-07-05] MEDS: Normal Saline Flush 10 ML SYR IVP ×3 (04:55→20:32)
[2021-07-05] MEDS: Levothyroxine 25 MCG TAB PO (05:00)
[2021-07-05 06:21] LABS: Abs Immature Grans 0.06 10^3/uL (0.0-0.06); Absolute Basophil Count 0.12 10^3/uL (0.0-0.2); Absolute Eosinophil Count 0.47 10^3/uL (0.0-0.7); Absolute Lymphocyte Count 1.11 10^3/uL (1.2-3.4); Absolute Monocyte Count 1.14 10^3/uL (0.1-0.8); Basophils % 1.2; Eosinophils % 4.7; HCT 25.6 % (40.0-50.0); HGB 7.8 g/dL (13.5-17.5); Immature Grans % 0.6; Lymphocytes % 11.1; MCH 28.2 pg (27.0-33.0); MCHC 30.5 % (32.0-36.0); MCV 92.4 fL (80-95); MPV 8.6 fL (8.0-11.0); Monocytes % 11.4; Platelet Count 456 10^3/uL (130-400); RBC 2.77 10^6/uL (4.36-5.78); RDW 15.2 % (11.8-14.1); RDW-SD 51.6 fL
[2021-07-05] MEDS: Gabapentin 100 MG CAP PO ×3 (09:19→20:30)
[2021-07-05] MEDS: Rosuvastatin 10 MG TAB PO (09:20)
[2021-07-05] MEDS: Ferrous Sulfate 325 MG TAB PO ×2 (09:20→20:30)
[2021-07-05] MEDS: Sucralfate 1 GM TAB PO ×4 (09:20→21:22)
[2021-07-05] MEDS: Metoprolol 50 MG TAB PO ×2 (09:20→20:32)
[2021-07-05] MEDS: Montelukast 10 MG TAB PO (09:20)
[2021-07-05] MEDS: Magnesium Oxide 400 MG TAB 800 MG PO ×2 (09:20→20:30)
[2021-07-05] MEDS: Pantoprazole 40 MG TABCR PO ×2 (09:20→20:34)
[2021-07-05] MEDS: Cetirizine 10 MG TAB PO (09:20)
[2021-07-05] MEDS: Aspirin 325 MG TAB PO (09:20)
[2021-07-05] MEDS: Insulin Aspart 300 UNITS/3 ML PEN SC ×6 (09:21→21:24)
--- NOTE | 2021-07-05 10:58 | PT.INTREAT ---
Date of service: 07/05/21 Time of Service: 10:03 PT Notes Visit Reasons: SWINGBED Inpatient Physical Therapy Treatment Note [facility] Date: 07/05/2021 PRECAUTIONS: WBAT L LE, Fall, Activity as tolerated SUBJECTIVE: Bear is pleasant and agreeable to participating in PT. He feels that he is getting stronger and that his gait mechanics are improving. OBJECTIVE: PAIN: Patient c/o shoulder, hand/wrist, and R knee pain with gait training, although all have improved since yesterday's PT sessions BED MOBILITY/TRANSFERS Supine-sit: I with HOB at 20 degrees Sit-supine: I Sit-stand: SBA in a.m.; S in p.m. Stand-sit: SBA in a.m.; S in p.m. GAIT Assistive Device: FWW Weight bearing: WBAT L Assist: SBA Distance: 65' + 30' in a.m.; 65' + 30' in p.m. Deviation: Increased WB on L LE, step-through gait pattern with frequent continuous FWW advancement, decreased shoulder and wrist pain with FWW use, increased knee extension, seated rest x1 THEREX: Patient was instructed in a LE strengthening and stabilization program, completed in a long sitting position, as per flow sheet. Also perform passive stretching to R knee flexors as well as gentle AP/PA glides to tibofemoral joint for improved knee extension. ASSESSMENT: Patient demonstrates significantly improved gait mechanics and activity tolerance, demonstrating increased knee extension and weight bearing on right knee, use of step-through pattern and occasional continuous FWW advancement. He also demonstrates improved R LE strength with ther ex completion. PLAN: Continue with global strengthening and general conditioning for improved mobility and activity tolerance. TREATMENT CODE/TIME: Session 1: 34 minutes; 71739, 40920 (10:03) Session 2: 28 minutes; 27631, 87847 (13:56)
[2021-07-05] MEDS: oxyCODONE 5 MG TAB PO ×2 (11:10→21:23)
[2021-07-05 14:44] VITALS: BP 112/70; PULSE 79; RESP 14; TEMP 36.9; O2SAT 96
[2021-07-05 20:29] VITALS: BP 142/83; PULSE 87
[2021-07-05] MEDS: Insulin Glargine 300 UNITS/3 ML PEN 12 UNITS SC (21:23)
[2021-07-05 23:32] VITALS: BP 100/63; PULSE 67; RESP 20; TEMP 36.8; O2SAT 96
[2021-07-06] MEDS: Normal Saline 500 ML 30 ML IV (04:56)
[2021-07-06] MEDS: ceFAZolin 2 GM/50 ML BAG IVPB ×3 (04:56→21:00)
[2021-07-06] MEDS: Normal Saline Flush 10 ML SYR IVP ×3 (04:57→20:59)
[2021-07-06] MEDS: Levothyroxine 25 MCG TAB PO (05:00)
[2021-07-06 08:05] VITALS: BP 126/78; PULSE 93; RESP 20; TEMP 36.8; O2SAT 95
[2021-07-06] MEDS: Gabapentin 100 MG CAP PO ×3 (08:43→21:00)
[2021-07-06] MEDS: Ferrous Sulfate 325 MG TAB PO ×2 (08:43→21:01)
[2021-07-06] MEDS: Metoprolol 50 MG TAB PO ×2 (08:43→21:01)
[2021-07-06] MEDS: Montelukast 10 MG TAB PO (08:43)
[2021-07-06] MEDS: Rosuvastatin 10 MG TAB PO (08:43)
[2021-07-06] MEDS: Sucralfate 1 GM TAB PO ×4 (08:43→21:01)
[2021-07-06] MEDS: Cetirizine 10 MG TAB PO (08:44)
[2021-07-06] MEDS: Magnesium Oxide 400 MG TAB 800 MG PO ×2 (08:44→21:00)
[2021-07-06] MEDS: Aspirin 325 MG TAB PO (08:44)
[2021-07-06] MEDS: Pantoprazole 40 MG TABCR PO ×2 (08:44→21:01)
[2021-07-06] MEDS: Insulin Aspart 300 UNITS/3 ML PEN SC ×5 (08:45→17:35)
--- NOTE | 2021-07-06 12:19 | PT.INTREAT ---
Date of service: 07/06/21 Time of Service: 09:15 PT Notes Visit Reasons: Septic arthritis left knee Inpatient Physical Therapy Treatment Note [facility] Date: 07/06/2021 PRECAUTIONS: Activities as tolerated with Left LE and fall OBJECTIVE: ? PAIN: Patient c/o shoulder pain and R knee pain with gait training. ? BED MOBILITY/TRANSFERS? Supine-sit: I with HOB at 30 degrees Sit-supine: I ? Sit-stand: SBA in a.m. ? Stand-sit: SBA in a.m.? GAIT? Assistive Device: FWW? Weight bearing: WBAT L Assist: SBA ? Distance:? 65' + 30' + 15'?with 2 seated rests in between ? Complained of shoulder pain with ambulation. Attempting to make good heel strike with knee extension. ? THEREX: Patient was instructed in a LE strengthening and stabilization program, as per flow sheet.? Also perform passive stretching to R knee flexors, as well as gentle AP/PA glides to tibofemoral joint for improved knee extension. No flexion past 90 degrees. ASSESSMENT: Tolerated today's session well with good effort displayed with ambulation. PLAN: Continue with global strengthening and general conditioning for improved mobility and activity tolerance. TREATMENT CODE/TIME: 57927/ 41004, 9:15 to 9:50 am ?
[2021-07-06 15:33] VITALS: BP 118/68; PULSE 85; RESP 20; TEMP 37.4; O2SAT 98
[2021-07-06] MEDS: oxyCODONE 5 MG TAB PO (15:58)
[2021-07-06 20:55] VITALS: BP 118/67; PULSE 95
[2021-07-06] MEDS: Insulin Glargine 300 UNITS/3 ML PEN 12 UNITS SC (21:02)
[2021-07-06 23:30] VITALS: BP 107/64; PULSE 73; RESP 16; TEMP 37.8; O2SAT 95
[2021-07-06 23:38] VITALS: TEMP 37.8
[2021-07-06] MEDS: Acetaminophen 325 MG TAB PO (23:38)
[2021-07-07 01:00] VITALS: TEMP 36.6
[2021-07-07] MEDS: ceFAZolin 2 GM/50 ML BAG IVPB ×3 (04:55→20:50)
[2021-07-07] MEDS: Normal Saline Flush 10 ML SYR IVP ×3 (04:56→20:50)
[2021-07-07] MEDS: Levothyroxine 25 MCG TAB PO (05:00)
[2021-07-07 06:50] LABS: Abs Immature Grans 0.05 10^3/uL (0.0-0.06); Absolute Basophil Count 0.11 10^3/uL (0.0-0.2); Absolute Eosinophil Count 0.54 10^3/uL (0.0-0.7); Absolute Lymphocyte Count 1.03 10^3/uL (1.2-3.4); Absolute Monocyte Count 1.11 10^3/uL (0.1-0.8); Absolute Neutrophil Count 7.34 10^3/uL (1.2-6.7); Basophils % 1.1; Eosinophils % 5.3; HCT 27.6 % (40.0-50.0); HGB 8.3 g/dL (13.5-17.5); Immature Grans % 0.5; Lymphocytes % 10.1; MCH 27.2 pg (27.0-33.0); MCHC 30.1 % (32.0-36.0); MCV 90.5 fL (80-95); MPV 8.4 fL (8.0-11.0); Monocytes % 10.9; Neutrophils % 72.1; Platelet Count 523 10^3/uL (130-400); RBC 3.05 10^6/uL (4.36-5.78); RDW 15.3 % (11.8-14.1); RDW-SD 50.9 fL; WBC 10.18 10^3/uL (4.4-10.8)
[2021-07-07 07:01] LABS: Anion Gap 7.9 mmol/L (3-11); BUN 21 mg/dL (7-18); C-Reactive Protein 5.36 mg/dL (0.0-0.3); CO2 27.1 mmol/L (21.0-32.0); CREATININE 1.5 mg/dL (0.70-1.30); Calcium 8.1 mg/dL (8.5-10.1); Chloride 101 mmol/L (98-107); Glucose 131 mg/dL (74-106); Magnesium 1.9 mg/dL (1.8-2.4); Potassium 4.2 mmol/L (3.5-5.1); Sodium 136 mmol/L (136-145)
[2021-07-07 07:45] VITALS: BP 114/85; PULSE 90; RESP 16; TEMP 37; O2SAT 96
[2021-07-07] MEDS: Ferrous Sulfate 325 MG TAB PO ×2 (09:13→20:50)
[2021-07-07] MEDS: Aspirin 325 MG TAB PO (09:13)
[2021-07-07] MEDS: Montelukast 10 MG TAB PO (09:13)
[2021-07-07] MEDS: Cetirizine 10 MG TAB PO (09:13)
[2021-07-07] MEDS: Metoprolol 50 MG TAB PO ×2 (09:14→20:49)
[2021-07-07] MEDS: Gabapentin 100 MG CAP PO ×3 (09:14→20:49)
[2021-07-07] MEDS: Magnesium Oxide 400 MG TAB 800 MG PO ×2 (09:14→20:49)
[2021-07-07] MEDS: Docusate Sodium 100 MG CAP PO ×2 (09:14→16:28)
[2021-07-07] MEDS: Sucralfate 1 GM TAB PO ×4 (09:14→22:12)
[2021-07-07] MEDS: oxyCODONE 5 MG TAB PO (09:15)
[2021-07-07] MEDS: Pantoprazole 40 MG TABCR PO ×2 (09:15→20:50)
[2021-07-07] MEDS: Rosuvastatin 10 MG TAB PO (09:15)
[2021-07-07] MEDS: Insulin Aspart 300 UNITS/3 ML PEN SC ×5 (09:30→22:12)
--- NOTE | 2021-07-07 13:41 | PT.INTREAT ---
Date of service: 07/07/21 Time of Service: 09:30 PT Notes Visit Reasons: Septic arthritis left knee Inpatient Physical Therapy Treatment Note [facility] Date: 07/07/2021 PRECAUTIONS: Fall and WBAT on left LE SUBJECTIVE: Stated he feels the pain is becoming less each day. Needs to relax shoulders when walking. Arm pain tends to limit his walking, not leg pain or fatigue. OBJECTIVE: PAIN: Left knee pain is less each day. Finds his UE pain is more limiting when walking. BED MOBILITY/TRANSFERS Sit-stand: SBA Stand-sit: SBA GAIT Assistive Device: FWW Weight bearing: WBAT on L LE Assist: SBA Distance: 65' + 40' + 15' Seated rest x 2 THEREX: AP x 10, SLR 2 x 5, stretching of left calf and hamstring x 3 for 30 seconds each and AP/PA glides of tib-fem jt. No knee flexion past 90 degrees. ASSESSMENT: Tolerated today's PT session very well, but needs to learn to relax UEs when walking. PLAN: Continue to focus on improved ambulation and ADL function. TREATMENT CODE/TIME: 47119/08834, 9:30 to 10:00 am (30')
[2021-07-07 16:00] VITALS: BP 115/76; PULSE 86; RESP 21; TEMP 37.7; O2SAT 98
[2021-07-07 16:25] VITALS: TEMP 37.7
[2021-07-07] MEDS: Acetaminophen 325 MG TAB 650 MG PO (16:25)
[2021-07-07 20:05] VITALS: BP 109/63; PULSE 84; RESP 14; TEMP 37.2; O2SAT 96
[2021-07-07] MEDS: Insulin Glargine 300 UNITS/3 ML PEN 12 UNITS SC (22:11)
[2021-07-07 23:40] VITALS: BP 100/60; PULSE 77; RESP 18; TEMP 36.8; O2SAT 100
[2021-07-08] MEDS: ceFAZolin 2 GM/50 ML BAG IVPB ×3 (04:35→20:47)
[2021-07-08] MEDS: Levothyroxine 25 MCG TAB PO (05:41)
--- NOTE | 2021-07-08 07:53 | OTIE_ITS ---
Occupational Therapy Notes Inpatient Occupational Therapy SWG B1 Evaluation Date: 07/08/21 Referring Doctor:Andie Sotelo NP OT Orders: Non Urgent Precautions: Fall, standard, full PATIENT PROFILE/ADMITTING DIAGNOSIS: Pt is a 71 year old male who was admitted to [facility] surg with the following dx of diarrhea, low grade fever, hypothyroidism, DM II, subacute osteomyelitis, (L) tibia and fibula, MSAA bactremia, cutaneous abscess of (L) knee, septic arthritis of (L) knee, CKD, CAD. Past Medical History: All Active Problems?(Updated 06/29/21 @ 18:24 by Andie Sotelo NP) Discharge planning issues (Acute) Fever (Acute) Hypothyroidism (Chronic) Diabetes mellitus type 2 in obese (Acute) MSSA bacteremia (Acute) Cutaneous abscess of left knee (Acute) Septic arthritis of knee, left (Acute) DVT prophylaxis (Acute) CKD (chronic kidney disease) (Chronic) Acute anemia (Acute) Septic arthritis (Acute) CAD (coronary artery disease) (Chronic) Acute kidney injury superimposed on CKD (Acute) Closed left clavicular fracture (Acute 09/07/18) Medical History? Diabetes Heart attack Hypercholesterolemia Hypertension Lip swelling Social History/Home Situation: Pt states that he lives in a private home and has a girlfriend who he spends time with. He notes that he is (I) At his baseline level of function. He states that he is able to perform all of his ADLs (I). He has a tub shower and states that right now he feels limited in his ROM of his legs but also that he has some discomfort. He reports that he is looking forward to returning home. SUBJECTIVE: Pt was sitting in bed when OT arrived. He is agreeable to OT consult. OBJECTIVE: General Observation: (L) leg swollen, IV in (R) UE Mental Status: A&Ox3 Pain: c/o discomfort in (L) LE ROM: RUE AROM WFL L UE AROM WFL STRENGTH: RUE 5/5 throughout LUE 5/5 throughout FUNCTIONAL MOBILITY/ADLS: Transfers with FWW BATHING sitting in bed Bathing UE (I) face and (B) UE Bathing LE NT DRESSING sitting in bed Dressing UE (I) [facility] and doffing hospital gown Dressing LE difficulty with (L) LE ROM otherwise mod (A) BALANCE: Static sitting Normal Dynamic Sitting Normal SPECIAL TESTS: Daily Activity Limitations Standardized Measure [facility] AM -PAC ?6 clicks? Daily Activity Inpatient Short Form: Raw score: 20 Standardized score: 42.03 CMS score: 38.32% INFORMED CONSENT/EDUCATION: Pt instructed in purpose of OT Consult and plan of care. ASSESSMENT: Patient is a 71-year-old male referred to occupational therapy services with diagnosis of diarrhea, low grade fever, hypothyroidism, DM II, subacute osteomyelitis, (L) tibia and fibula, MSAA bactremia, cutaneous abscess of (L) knee, septic arthritis of (L) knee, CKD, CAD. Patient presents with clinical signs and symptoms consistent with dx, as demonstrated by the following impairment level findings/functional limitations: Impairments in ADL/IADL and leisure activities, pain in (L) LE, decreased functional mobility, decreased ROM of (L) UE. AMPAC score 20 Patient is assessed as a Moderate 91704 complexity based on the following: History: see above Examination: see functional limitations as noted above Presentation: evolving Decision Making: AMPAC score 20 GOALS Goals x1 week 1. Grooming- standing at sink (I) oral hygiene 2. Dressing- sitting in chair (I) UE and mod (I) LE 3. Bathing standing at sink (I) 4. Toileting (I) on toilet 5. Eating (I) PLAN OF CARE/TREATMENT PLAN: 1x/day, 5 days/ week x 1week Initiate Occupational Therapy Services for bathing, dressing, grooming, toileting, eating, transfer training. DISCHARGE RECOMMENDATIONS OT recommends that pt return home when medically cleared per MD with outpatient PT. TREATMENT TIME/MINUTES/CODES 62859, 15 minutes (08:15) NADIA [facility]
[2021-07-08 07:57] VITALS: BP 127/76; PULSE 86; RESP 18; TEMP 36.8; O2SAT 96
[2021-07-08] MEDS: Insulin Aspart 300 UNITS/3 ML PEN SC ×4 (08:42→22:12)
[2021-07-08] MEDS: Normal Saline Flush 10 ML SYR IVP ×3 (08:43→20:47)
[2021-07-08] MEDS: Pantoprazole 40 MG TABCR PO ×2 (08:44→20:46)
[2021-07-08] MEDS: Rosuvastatin 10 MG TAB PO (08:44)
[2021-07-08] MEDS: Magnesium Oxide 400 MG TAB 800 MG PO ×2 (08:44→20:46)
[2021-07-08] MEDS: Montelukast 10 MG TAB PO (08:44)
[2021-07-08] MEDS: Sucralfate 1 GM TAB PO ×4 (08:44→22:12)
[2021-07-08] MEDS: Ferrous Sulfate 325 MG TAB PO ×2 (08:44→20:47)
[2021-07-08] MEDS: Cetirizine 10 MG TAB PO (08:45)
[2021-07-08] MEDS: Aspirin 325 MG TAB PO (08:45)
[2021-07-08] MEDS: Metoprolol 50 MG TAB PO ×2 (08:45→20:46)
[2021-07-08] MEDS: Gabapentin 100 MG CAP PO ×3 (08:45→20:46)
--- NOTE | 2021-07-08 13:44 | PGE_ITS ---
Date of Service Date of service: 07/08/21 Time of Service: 13:48 Assessment and Plan Assessment and plan (1) Septic arthritis of knee, left: Status: Acute Assessment and plan: Due to MSSA infection. S/p debridement of LLE subcutaneous tissues/muscle/bone, open synovectomy/debredement of the L knee with placement of an antibiotic spacer on 06/25/[address] Rice. Remains on cefazolin 2 grams IV Q8 hrs. Continue cefazolin through 08/06/21 (6 weeks from 06/25/21), per [facility] ID. The patient could be transitioned to home health antibiotics if his insurance situation permits it. Care management is looking into this. After 08/06/21, the patient should be on keflex 500 mg PO QID until his knee replacement. TTE negative. Had a fever on the night of 07/03/21-07/04/21 - septic workup negative at that time as were venous dopplers of BLEs and LUE where he has a PICC line. Since then, no recurrences of true fever, though the patient has had low grade tamperatures occasionally. At this point, I am concerned about diarrhea possibly being C.Diff. Should it recur, will ask nursing to collect a C.Diff sample. (2) Cutaneous abscess of left knee: Status: Acute Assessment and plan: As above (3) MSSA bacteremia: Status: Acute Assessment and plan: As above (4) Low grade fever: Status: Acute Assessment and plan: As above (5) Diarrhea: Status: Acute Assessment and plan: As above (6) Discharge planning issues: Status: Acute Assessment and plan: Full code In SB1 - with hope of transitioning to home health IV antibiotics through 08/06/21. Subjective Subjective Interval history since last seen: Mr Gamboa states that he is feeling well. He has been working with PT. States he had diarrhea this morning, but had been constipated prior. He thinks it is due to his stool softeners. Denies dizziness, chest pain, shortness of breath, nausea. He does feel discomfort in his knee having just finished working with PT. I discussed his case with [facility] ID, who recommend continuing IV cefazolin x 6 weeks from the definitive surgery (06/25/21) with oral abx (keflex 500 QID) x 6 months until the knee replacement. I discussed this with the patient and care management, who will attempt to set up home health for the patient's antibiotic infusions. Exam Narrative Exam Narrative: General: Pleasant middle-aged male, A&Ox3, appears comfortable in bed HEENT: EOMI, MMM, poor dentition Heart: RRR, no m/r/g Lungs: CTAB Abdomen: soft, nontender, nondistended Extremities: L knee dressed/wrapped in berta wraps - c/d/i Objective Last Vital Signs Temp 36.8 C 07/08/21 07:57 Pulse 86 07/08/21 07:57 Resp 18 07/08/21 07:57 BP 127/76 07/08/21 07:57 Pulse Ox 96 07/08/21 07:57
--- NOTE | 2021-07-08 15:30 | PT.INTREAT ---
Date of service: 07/08/21 Time of Service: 10:02 PT Notes Visit Reasons: Septic arthritis left knee Inpatient Physical Therapy Treatment Note [facility] Date: 07/08/2021 PRECAUTIONS: WBAT L LE, Fall, Activity as tolerated SUBJECTIVE: Bear is pleasant and agreeable to participating in PT.? He feels that he is getting stronger and that his gait mechanics are improving. He is excited about going home soon. He is worried about the cost of continued IV antibiotics once he is discharged from the hospital. OBJECTIVE: ? PAIN: Patient c/o L knee pain with manual therapy ? BED MOBILITY/TRANSFERS? Supine-sit: I with HOB flat Sit-stand: S? Stand-sit: S? GAIT? Assistive Device: FWW? Weight bearing: WBAT L Assist: SBA ? Distance:? 50' x2 in a.m.; 60' x2 in p.m. ? Deviation: Increased WB on L LE, step-through gait pattern with occasional continuous FWW advancement, decreased shoulder and wrist pain with FWW use, increased knee extension, seated rest x1, SOB ? THEREX: Patient was instructed in a LE strengthening and stabilization program, completed in a long sitting position, as per flow sheet.? Also perform passive stretching to R knee flexors as well as gentle AP/PA glides to tibofemoral joint for improved knee extension. STAIRS: Up/down 6x4 using B rails and a step-to pattern with SBA ASSESSMENT: Patient demonstrates significantly improved gait mechanics and activity tolerance, demonstrating increased knee extension and weight bearing on left knee, use of step-through pattern and occasional continuous FWW advancement.? He also demonstrates improved R LE strength with ther ex completion. He continues to demonstrate SOB with gait training, which reportedly is the limiting factor. PLAN: Continue with global strengthening and general conditioning for improved mobility and activity tolerance. TREATMENT CODE/TIME: Session 1: 47 minutes; 30236 x3 (10:02) ? Session 2: 43 minutes; 33819 x3 (14:31)
--- NOTE | 2021-07-08 15:59 | PDOC.CMPRO ---
- If Service Date Differs Date of service: 07/08/21 Time of Service: 15:59
[2021-07-08 16:00] VITALS: BP 109/66; PULSE 85; RESP 16; TEMP 36.6; O2SAT 99
[2021-07-08] MEDS: Insulin Glargine 300 UNITS/3 ML PEN 12 UNITS SC (22:12)
[2021-07-08 23:50] VITALS: BP 105/60; PULSE 82; RESP 16; TEMP 36.6; O2SAT 95
[2021-07-09] MEDS: Levothyroxine 25 MCG TAB PO (05:10)
[2021-07-09] MEDS: ceFAZolin 2 GM/50 ML BAG IVPB ×3 (05:11→19:53)
[2021-07-09 07:58] VITALS: BP 122/72; PULSE 90; RESP 19; TEMP 37; O2SAT 96
--- NOTE | 2021-07-09 08:52 | OT.INTREAT ---
Date of service: 07/09/21 Occupational Therapy Notes Occupational Therapy Inpatient Treatment Note Date: 07/09/21 PRECAUTIONS: Fall, standard, Full SUBJECTIVE: Pt was sitting in bed when OT arrived. He states that he has some questions on his insulin and his medication pump at home. OBJECTIVE: PAIN:c/o pain in (L) LE BATHING: max (A) set up/clean up Upper Body: (I) Lower Body: (I) DRESSING: sitting on side of the bed with min vc Lower Extremity: Mod (I) don and doffing (B) socks with sock aid to increase pts functional (I) with LE dressing TREATMENT CODES/TIME: 33023, 20 minutes (09:15) Joycelyn Gamble OTR/[facility]
[2021-07-09] MEDS: Insulin Aspart 300 UNITS/3 ML PEN SC ×6 (09:17→21:46)
[2021-07-09] MEDS: Gabapentin 100 MG CAP PO ×3 (09:18→19:53)
[2021-07-09] MEDS: Aspirin 325 MG TAB PO (09:18)
[2021-07-09] MEDS: Magnesium Oxide 400 MG TAB 800 MG PO ×2 (09:18→19:53)
[2021-07-09] MEDS: Cetirizine 10 MG TAB PO (09:18)
[2021-07-09] MEDS: Montelukast 10 MG TAB PO (09:18)
[2021-07-09] MEDS: Sucralfate 1 GM TAB PO ×4 (09:18→21:46)
[2021-07-09] MEDS: Pantoprazole 40 MG TABCR PO ×2 (09:18→19:54)
[2021-07-09] MEDS: Ferrous Sulfate 325 MG TAB PO ×2 (09:18→19:54)
[2021-07-09] MEDS: Metoprolol 50 MG TAB PO ×2 (09:18→19:54)
[2021-07-09] MEDS: Rosuvastatin 10 MG TAB PO (09:18)
[2021-07-09] MEDS: Normal Saline Flush 10 ML SYR IVP ×3 (09:18→19:54)
--- NOTE | 2021-07-09 13:04 | INPN_ITS ---
Date of service: 07/09/21 Time of Service: 13:04 PT Notes Visit Reasons: Septic arthritis left knee Swing Bed I Initial Physical Therapy Progress Note Date: 07/02/2021 Dates of Service: 07/02/2021 through 07/09/2021 Referring Doctor: Andie Sotelo,? PATIENT FINANCIAL SERVICES MANAGER PT Orders: PT CONSULT: Eval/treat Precautions: Fall. Standard.? Weight bearing as tolerated on the left LE with AD.? Per Dr. Rice, no flexion in the L knee beyond 90 degrees.? No pillow directly under the L knee. Patient Profile/Admitting Diagnosis: Bear is a 70-year-old male who presented to the ED with increased pain, swelling, and redness of the left knee and leg and decreased ability to move set extremity that had been going on 1-1/2 weeks prior. ? Patient is diagnosed with septic arthritis, acute GI bleeding, coronary artery disease, diabetes mellitus, hypertension, and hypercholesterolemia.? Patient is status post debridement and lavage for infection and I&D of abscess on 06/11/21, 06/18/21, and 06/25/21.? PMHX: All Active Problems?(Updated 06/10/21 @ 16:11 by Nav Albarado MD) DVT prophylaxis (Acute) CKD (chronic kidney disease) (Chronic) Acute anemia (Acute) Septic arthritis (Acute) Acute GI bleeding (Acute) Anaphylactic reaction due to adverse effect of correct drug or medicament properly administered, initial encounter (Acute) CAD (coronary artery disease) (Chronic) Acute kidney injury superimposed on CKD (Acute) Closed left clavicular fracture (Acute 09/07/18) Medical History? Diabetes Heart attack Hypercholesterolemia Hypertension Lip swelling Social History/Home Situation: Independent with all ADL performance without an assistive device.? Lives with fianc? in a private home.? 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 Equipment Owned/DME: None Subjective: Bear is happy about how much his L knee has gotten better. He is delighted at how much he is able to sit up on the edge of the on his own without his L knee hurting. Still complains of discomfort in shoulders with ambulation and walker use. Objective: General Observation: Ata to L knee and posterolateral knee.? PICC line through the L UE. L ankle now less swollen. Mental Status: Alert and oriented as to person, place, time, and purpose. Able to pay attention, focus, and respond appropriately. Pain: 0/10 in the left LE with rest, 2-3/10 with weight bearing ROM: Right Upper Extremity: ? Shoulder Flexion WFL. Shoulder abduction WFL. Elbow flexion WFL. Wrist flexion WFL. Functional opening and closing of hand WFL. Left Upper Extremity:? Shoulder Flexion WFL. Shoulder abduction WFL. Elbow flexion WFL. Wrist flexion WFL. Functional opening and closing of hand WFL. Right Lower Extremity: Hip flexion WFL. Hip abduction WFL. Knee flexion WFL. Ankle dorsiflexion WFL. Ankle plantarflexion WFL. Left Lower Extremity: Able do 90 degrees of knee flexion in bed and up to 120 hip flexion while seated at edge of bed.? Knee extensors -25 degrees.? Able to slide R LE out to about 20 degree to sit aup at edge of bed. Ankle dorsiflexion to neutral only.. Ankle plantarflexion WFL. Strength: Right Upper Extremity: Shoulder flexors 4/5. Shoulder abductors 4/5. Elbow flexors 5/5. Elbow extensors 5/5. Post Acute Care Registered Nurse strong. Left Upper Extremity: Shoulder flexors 4/5. Shoulder abductors 4/5. Elbow flexors 5/5. Elbow extensors 5/5. Post Acute Care Registered Nurse strong. Right Lower Extremity: Hip flexors 5/5. Hip abductors 5/5. Knee flexors 5/5. Knee extensors 5/5. Ankle dorsiflexors 5/5. Ankle plantarflexors 5/5. Left Lower Extremity: ? Hip flexors 3-/5. Hip abductors 2-/5. Knee flexors 3-/5. Knee extensors 3-/5. Ankle dorsiflexors 3-/5. Ankle plantarflexors 4/5. ? Bed Mobility/Transfers: Supine to sit independent Sit to stand with supervision Stand to sit with supervision Bed to reclining supervision THERA EX: Initiated PREs using 3 lb DB for B UE shoulder flexion/extension, horizontal abduction.adduction, elbow flexion/extension. Also worked on increasing hip flexor and knee extensor strength on R using 3 lb AW whiel seated at edge of bed with same exercises doen for L LE without resistance. Gait: Instructed patient with level surface ambulation of 75 feet + 30 feet + 50 feet 50 feet using front-wheeled walker with wheelchair follow needed for safety.? Requiring stand by assist.? Almost full knee extension at L midstance. L step length increased with full step through, R step length decreased with step to. Trunk now more erect. Patient reports 3-4 /10 pain in the L knee that subsided with rest. Stairs: Up and down 6 x 4 inch steps while holding onto B rails with step to gait pattern. Stand by assist needed. Balance: Static Sitting: Normal Dynamic Sitting: Normal Static Standing: Fair Dynamic Standing: Fair Special Tests: Mobility Limitations Standardized Measure [facility]-PAC 6 clicks Basic Mobility Inpatient Short Form: Raw Score: 23 ? CMS Score: 11% deficit? ? ? Informed Consent/Education:? Patient has been updated about the PT plan of care and is in agreement of said plan to achieve goals below. ASSESSMENT: Mobility independence improving. Pain tolerance is improving.? Gait pattern and safety of ambulation improving.? AROM and strength to L knee joint and muscles improving.? patient will continue to benefit from services to progress strength, mobility level, activity tolerance, and balance. Patient presents with clinical signs and symptoms consistent with current/admitting diagnoses that have resulted to mobility limitations, gait instability, generalized weakness, and overall ADL decline as demonstrated by the following impairment level findings: 1.? Decreased strength to left LE major muscle groups 2.? Impaired sitting/standing balance 3.? Impaired activity tolerance 4.? Limitation of joint range of motion in L knee joint Impairments are contributing to the following functional limitations: 1.? Increasing bed mobility skills 2.? Increasing transfer skills 3.? Decreasing difficulty with ambulation with assistive device 4.? Increased completion time for mobility ADL performance 5.? Increased risk for falls 6.? Difficulty with managing steps alone safely Patient is assessed as a [id number] moderate complexity based on the following: History: 70-year-old male with past medical history as indicated above Examination: Improving ability as evidenced by increments in strength, balance, and mobility level with underlying impairments and functional limitations as exhibited above as well as deficit score of 36% utilizing the [facility] Mobility Inpatient Short Form Presentation: Evolving Decision Makin moderate complexity Goals: Goals X1 week 1. Supine-Sit independent MET 2. Sit-Supine independent MET 3. Sit-Stand independent NOT MET, CONTINUE 4. Stand-Sit independent with FWW NOT MET, CONTINUE 5. Bed-Chair independent with FWW NOT MET, CONTINUE 6. Chair-Bed independent with FWW NOT MET, CONTINUE 7. Independent gait on level surface with use of FWW for at least 300 feet without report of pain nor dyspnea NOT MET, CONTINUE 8. Independent stair negotiation while holding onto B rails for at least 5 steps without report of pain nor dyspnea NOT MET, CONTINUE 9. Independent with home exercise program NOT MET, CONTINUE 10. Good static and dynamic standing balance/tolerance NOT MET, CONTINUE Plan of Care/Treatment Plan: 1-2x/day, Mondays through Fridays for 2 weeks. Continue with pain management strategies, range of motion exercises, functional mobility training, balance retraining, patient education and training on HEP, and safe discharge planning. DISCHARGE RECOMMENDATIONS: [] ? Home with no services [] [X] ? Home with services.? Home when medically cleared by hospitalist and/or orthopedic surgeon.? Patient will benefit from home health PT services in order to progress mobility level using least restrictive assistive ambulatory device, assess home safety, identify additional equipment needs, and establish a functional maintenance program that will increase ability of patient to remain at home.? May transition to outpatient PT services for continued rehabitation as needed. [] ? Home with outpatient PT [] [] ? SNF for continued rehabilitation [] [] ? Nursing Home Care [] [] ? SNF versus LTC based on ability to participate and progress [] TREATMENT CODE/TIME: 49491 x 30 minutes, 21259 x 24 minutes beginning at 13:04 PM. Thank you for the opportunity to participate in the care of this patient. Barb Araiza PT, DPT, CLT [facility] [place], [place]
[2021-07-09 15:31] VITALS: BP 109/67; PULSE 92; RESP 18; TEMP 36.5; O2SAT 99
[2021-07-09] MEDS: Insulin Glargine 300 UNITS/3 ML PEN 12 UNITS SC (21:47)
[2021-07-09 23:05] VITALS: BP 110/65; PULSE 90; RESP 18; TEMP 36.6; O2SAT 99
[2021-07-10] MEDS: ceFAZolin 2 GM/50 ML BAG IVPB ×3 (04:40→19:37)
[2021-07-10] MEDS: Levothyroxine 25 MCG TAB PO (05:20)
[2021-07-10] MEDS: Aspirin 325 MG TAB PO (07:46)
[2021-07-10] MEDS: Metoprolol 50 MG TAB PO ×2 (07:46→19:28)
[2021-07-10] MEDS: Pantoprazole 40 MG TABCR PO ×2 (07:46→19:28)
[2021-07-10] MEDS: Magnesium Oxide 400 MG TAB 800 MG PO ×2 (07:47→19:28)
[2021-07-10] MEDS: Ferrous Sulfate 325 MG TAB PO ×2 (07:47→19:28)
[2021-07-10] MEDS: Cetirizine 10 MG TAB PO (07:47)
[2021-07-10] MEDS: Montelukast 10 MG TAB PO (07:47)
[2021-07-10] MEDS: Rosuvastatin 10 MG TAB PO (07:47)
[2021-07-10] MEDS: Gabapentin 100 MG CAP PO ×3 (07:47→19:28)
[2021-07-10] MEDS: Sucralfate 1 GM TAB PO ×4 (07:47→22:24)
[2021-07-10] MEDS: Normal Saline Flush 10 ML SYR IVP ×4 (07:48→20:30)
[2021-07-10 07:54] VITALS: BP 124/71; PULSE 90; RESP 14; TEMP 37; O2SAT 95
[2021-07-10] MEDS: Insulin Aspart 300 UNITS/3 ML PEN SC ×5 (08:20→20:26)
--- NOTE | 2021-07-10 08:44 | CMPROGNOTE_ITS ---
- If Service Date Differs Date of service: 07/10/21 Time of Service: 08:44 Care Management Progress Note S/O:Bear will likely be discharged tomorrow to his fiancee Kylee Nguyen's house in [place] ([address] [place], [place]. ). Home health services will begin tomorrow. Bear will discharge home around noontime and [facility] is scheduled to arrive around 1 pm to do the intake. He will be receiving IV antibiotics through [facility] His antibiotics will be delivered this afternoon to Kylee's radha. In addition to nursing for IV antibiotics and wound care, PT, OT and MATERIAL REQUISITIONER services will also be ordered. A: Bear is a 71 year old man admitted on 06/10/21 with septic arthritis P:Bear will likely be discharged home with new home health services. A prolonged course of IV antibiotics was required and Bear was transitioned to [facility]- for this reason as well as to continue to work with PT. Bear will receive home infusion services through [facility] to complete his course of antibiotics. It is anticipated that his IV antibiotics will not be completed until 08/06/21. Bear will follow up with his PCP and plan of care and transport with family. will continue to provide support to Bear and his discharge needs.
--- NOTE | 2021-07-10 10:21 | OT.INDS ---
Date of service: 07/10/21 Occupational Therapy Notes Occupational Therapy Inpatient Discharge Summary Date: 07/10/21 Dates of Service: 07/08/21-07/10/21 Referring Doctor:Andie Sotelo NP OT Orders: Non Urgent Precautions: Fall, standard, full PATIENT PROFILE/ADMITTING DIAGNOSIS: Pt is a 71 year old male who was admitted to [facility] with the following dx of diarrhea, low grade fever, hypothyroidism, DM II, subacute osteomyelitis, (L) tibia and fibula, MSAA bactremia, cutaneous abscess of (L) knee, septic arthritis of (L) knee, CKD, CAD. Past Medical History: All Active Problems?(Updated 06/29/21 @ 18:24 by Andie Sotelo NP) Discharge planning issues (Acute) Fever (Acute) Hypothyroidism (Chronic) Diabetes mellitus type 2 in obese (Acute) MSSA bacteremia (Acute) Cutaneous abscess of left knee (Acute) Septic arthritis of knee, left (Acute) DVT prophylaxis (Acute) CKD (chronic kidney disease) (Chronic) Acute anemia (Acute) Septic arthritis (Acute) CAD (coronary artery disease) (Chronic) Acute kidney injury superimposed on CKD (Acute) Closed left clavicular fracture (Acute 09/07/18) Medical History? Diabetes Heart attack Hypercholesterolemia Hypertension Lip swelling Social History/Home Situation: Pt states that he lives in a private home and has a girlfriend who he spends time with. He notes that he is (I) At his baseline level of function. He states that he is able to perform all of his ADLs (I). He has a tub shower and states that right now he feels limited in his ROM of his legs but also that he has some discomfort. He notes issues with LE dressing including socks and pants at baseline. He does have good support at home and feels that he will have someone there with him if he needs help at all times. SUBJECTIVE:??Pt was sitting in bed when OT arrived. He states that he is doing well and looking forward to returning home. He also reports that he feels that he is able to perform his ADLs with increased (I). OBJECTIVE:? ROM: RUE AROM WFL L UE AROM WFL STRENGTH: RUE 5/5 throughout LUE 5/5 throughout FUNCTIONAL MOBILITY/ADLS:? Transfers with FWW BATHING pt denies at this time as he awaits for Physical Therapy, however he can perform this (I). DRESSING sitting in bed Dressing UE (I) don and loring hospital gown Dressing LE Mod (I) with use of sock aid, dressing stick. OT educated and trained pt in use of dressing stick today and long handled shoe horn and pt was able to perform with ideal technique. BALANCE: ? Static sitting Normal Dynamic Sitting Normal ASSESSMENT:?? Patient is a 71-year-old male referred to occupational therapy services with diagnosis of diarrhea, low grade fever, hypothyroidism, DM II, subacute osteomyelitis, (L) tibia and fibula, MSAA bactremia, cutaneous abscess of (L) knee, septic arthritis of (L) knee, CKD, CAD. Patient was seen for 3 skilled OT sessions, he states that he feels that he is able to perform his ADLs with increased (I) at this time. Functionally his knee is improving and he states that he is looking forward to returning home. GOALS 1.? Grooming- standing at sink (I) oral hygiene 2.? Dressing- sitting in chair (I) UE and mod (I) LE 3.? Bathing standing at sink (I) 4.? Toileting (I) on toilet 5.? Eating (I) PLAN OF CARE/TREATMENT PLAN: Discharge from skilled OT services, pt feels that he has reached a baseline level of function where he has perform his ADLS at home with increased (I). DISCHARGE RECOMMENDATIONS OT recommends that pt return home when medically cleared per MD with outpatient PT. OT recommend that pt have a raised toilet seat for increased (I) and safety with his toileting routines. OT recommends consult with Road Roller Operator [employer] at [facility] to go over insulin with pt prior to returning home. TREATMENT TIME/MINUTES/CODES 70030, 15 minutes (10:05) Joycelyn Gamble OTR/[facility]
--- NOTE | 2021-07-10 13:00 | NUR.NOTE ---
Nursing Note: Lunch time insulin coverage SS 9 unit for a 229, carb count 66= 12 total 21 unit
--- NOTE | 2021-07-10 14:12 | PT.INTREAT ---
Date of service: 07/10/21 Time of Service: 11:09 PT Notes Visit Reasons: Septic arthritis left knee Inpatient Physical Therapy Treatment Note [facility] Date: 07/10/2021 PRECAUTIONS: WBAT L LE, Fall, Activity as tolerated SUBJECTIVE: Bear is pleasant and agreeable to participating in PT.? He feels that he is getting stronger and that his gait mechanics are improving. He is excited about going home tomorrow. He feels much better about administering his IV antibiotics at home after learning how the procedure works. OBJECTIVE: ? PAIN: Patient c/o L knee pain with manual therapy ? BED MOBILITY/TRANSFERS? Supine-sit: I with HOB flat Sit-stand: S? Stand-sit: S? GAIT? Assistive Device: FWW B Ax Cx? Weight bearing: WBAT L Assist: S? Distance:? 65' + 50' x2 with FWW 50' with B Ax Cx in a.m.; 70' + 60' x2 with B Ax Cx in p.m. ? Deviation: Increased WB on L LE, step-through gait pattern, continued shoulder pain with AD use, increased knee extension, seated rest, minimal SOB ? THEREX: Perform passive stretching to R knee flexors as well as gentle AP/PA glides to tibofemoral joint for improved knee extension. In p.m., instructed patient in a resisted UE strengthening program, including shoulder flexion to 90 degrees, scapular retraction/punch out, biceps curls and punch ups. Patient utilizes 3# dumbbells with all UE exercises. STAIRS: Up/down 3x4 and 2x6 using B rails and a step-to pattern with SBA ASSESSMENT: Patient demonstrates significantly improved gait mechanics and activity tolerance, demonstrating increased knee extension and weight bearing on left knee, use of step-through pattern with use of B Ax Cx.? He also demonstrates improved L LE strength with ther ex completion. He continues to demonstrate some SOB and shoulder pain with gait training. PLAN: Continue with global strengthening and general conditioning for improved mobility and activity tolerance. TREATMENT CODE/TIME: Session 1: 41 minutes; 48392, 62482 (11:09) ? Session 2: 39 minutes; [id number], [id number] (14:10)
[2021-07-10 15:20] VITALS: BP 155/63; PULSE 89; RESP 18; TEMP 37.2; O2SAT 97
[2021-07-10] MEDS: oxyCODONE 5 MG TAB PO (19:37)
[2021-07-10] MEDS: Insulin Glargine 300 UNITS/3 ML PEN 12 UNITS SC (20:29)
[2021-07-10 23:10] VITALS: BP 109/67; PULSE 81; RESP 16; TEMP 36.9; O2SAT 96
[2021-07-11] MEDS: ceFAZolin 2 GM/50 ML BAG IVPB (04:26)
[2021-07-11] MEDS: Acetaminophen 325 MG TAB PO (05:40)
[2021-07-11] MEDS: Levothyroxine 25 MCG TAB PO (05:40)
[2021-07-11] MEDS: oxyCODONE 5 MG TAB PO (05:41)
[2021-07-11 05:59] LABS: Abs Immature Grans 0.04 10^3/uL (0.0-0.06); Absolute Basophil Count 0.09 10^3/uL (0.0-0.2); Absolute Lymphocyte Count 0.88 10^3/uL (1.2-3.4); Absolute Monocyte Count 0.99 10^3/uL (0.1-0.8); Absolute Neutrophil Count 6.08 10^3/uL (1.2-6.7); Basophils % 1.1; Eosinophils % 4.7; HCT 26.5 % (40.0-50.0); Immature Grans % 0.5; Lymphocytes % 10.4; MCH 27.7 pg (27.0-33.0); MCHC 30.2 % (32.0-36.0); MCV 91.7 fL (80-95); MPV 8.5 fL (8.0-11.0); Monocytes % 11.7; Neutrophils % 71.6; Platelet Count 460 10^3/uL (130-400); RBC 2.89 10^6/uL (4.36-5.78); RDW 15.4 % (11.8-14.1); RDW-SD 51.7 fL; WBC 8.48 10^3/uL (4.4-10.8)
[2021-07-11 06:10] LABS: Anion Gap 7.6 mmol/L (3-11); BUN 26 mg/dL (7-18); CO2 26.4 mmol/L (21.0-32.0); CREATININE 1.4 mg/dL (0.70-1.30); Calcium 7.9 mg/dL (8.5-10.1); Chloride 102 mmol/L (98-107); Estimated GFR 50.25 (mL/min/1.73m2); Glucose 133 mg/dL (74-106); Potassium 4.1 mmol/L (3.5-5.1); Sodium 136 mmol/L (136-145)
[2021-07-11 06:19] LABS: C-Reactive Protein 3.09 mg/dL (0.0-0.3)
[2021-07-11 07:44] VITALS: BP 127/70; PULSE 89; RESP 17; TEMP 36.8; O2SAT 96
[2021-07-11] MEDS: Metoprolol 50 MG TAB PO (08:01)
[2021-07-11] MEDS: Aspirin 325 MG TAB PO (08:01)
[2021-07-11] MEDS: Magnesium Oxide 400 MG TAB 800 MG PO (08:01)
[2021-07-11] MEDS: Normal Saline Flush 10 ML SYR IVP (08:01)
[2021-07-11] MEDS: Cetirizine 10 MG TAB PO (08:02)
[2021-07-11] MEDS: Ferrous Sulfate 325 MG TAB PO (08:02)
[2021-07-11] MEDS: Sucralfate 1 GM TAB PO (08:02)
[2021-07-11] MEDS: Pantoprazole 40 MG TABCR PO (08:02)
[2021-07-11] MEDS: Montelukast 10 MG TAB PO (08:02)
[2021-07-11] MEDS: Gabapentin 100 MG CAP PO (08:02)
[2021-07-11] MEDS: Rosuvastatin 10 MG TAB PO (08:02)
[2021-07-11] MEDS: Insulin Aspart 300 UNITS/3 ML PEN SC (08:37)
--- NOTE | 2021-07-11 09:35 | PDOC.HHF2F ---
Home Health Certification Home Health Certification: 1. Encounter Date and Reason I certify that Bear Gamboa was seen by Irena Miller on 07/11/21 and that I had a [id number] encounter with this patient that meets the physician face to face encounter requirements. 2. Clinical Findings Supporting Skilled Need and Homebound Status I certify that home health services are medically necessary, include either intermittent fpc and/or physical/speech therapy, and that this patient is homebound in that absences from the home require considerable and taxing effort and are infrequent or of short duration, or are attributable to the need to receive medical care. [X] (a) Attached documentation from encounter provides clinical findings supporting skilled need and homebound status (including what assistance patient requires to leave the home). The encounter with the patient was in whole, or in part, for the following medical condition, which is the primary reason for home health care: Septic arthritis left knee Fdc: Patient would benefit from nursing for IV infusions, line draws for labs, etc. Physical Therapy: Patient would benefit from PT/OT for : Continuation of global strengthening and general conditioning for improved mobility and activity tolerance. DIALYSIS EQUIPMENT TECHNICIAN: Patient would benefit from community connections. ROBOT PROGRAMMER: Patient would benefit from a ROBOT PROGRAMMER for help with bathing, adls, etc. Homebound: 3. Certification and Authentication I certify that I composed the above information based on my clinical judgement relating to this patient's medical condition and, if applicable, clinical findings communicated to me by the NPP or inpatient physician who performed the Home Health Referral. All further orders will be obtained through ____Antonella Lucas___(Community Based Physician - PCP)
--- NOTE | 2021-07-11 10:05 | W.PM.DS.N ---
Date of service: 07/11/21 Time of Service: 09:30 DS: Diagnosis Discharge Diagnosis (1) Septic arthritis of knee, left: Start date: 07/11/21 Start time: 09:30 Status: Acute Asessment and Plan: Due to MSSA infection. Wound edges approximated, no erythema, +2-3 edema. S/p debridement of LLE subcutaneous tissues/muscle/bone, open synovectomy/debredement of the L knee with placement of an antibiotic spacer on 06/25/[address] Rice. Remains on cefazolin 2 grams IV Q8 hrs. Continue cefazolin through 08/06/21 (6 weeks from 06/25/21), per [facility] ID. After that he will be transitioned to home health antibiotics After 08/06/21, the patient should be on keflex 500 mg PO QID until his knee replacement. TTE negative. he has been afebrile since 07/07/21. Septic workup negative at that time as were venous dopplers of BLEs and LUE where he has a PICC line. His labs are improving. CRP trending down. He will need weekly labs. Starting from today. He is being discharged home with services to continues IV antibiotics. Will defer to Ortho/ PCP to transition to oral antibiotics. (2) Cutaneous abscess of left knee: Start date: 07/11/21 Start time: 09:30 Status: Acute Asessment and Plan: as above, (3) MSSA bacteremia: Start date: 07/11/21 Start time: 09:30 Status: Acute Asessment and Plan: as above (4) Low grade fever: Start date: 07/11/21 Start time: 09:30 Status: Resolved Asessment and Plan: Afebrile since 07/07/21 (5) Diarrhea: Start date: 07/11/21 Start time: 09:30 Status: Resolved Asessment and Plan: No diarrhea, will place on bio-k discussed with Dr. Albarado Discharge Plan Disposition Patient Disposition: HOME W/HOME HEALTH SERVICE Condition: Stable Discharge Details Reason For Visit: Septic arthritis left knee Admit Date/Time: 07/01/21 16:18 Admit Provider: Jake Galo Attending Provider: Jake Galo Primary Care Provider: Antonella Lucas Hospital Course Hospital Course: 70 yo male with a PMH of CAD, CKD, recently admitted to [facility] for allergic reaction with urticaria and swelling of tongue. Presented to the ED currently with c/o left knee pain.? He underwent 2 surgical debridements with arthroscopic synovectomy of left knee but continued to have evidence of ongoing infection so ultimately went back to or, see dx.? His blood cultures have been negative since June 19, 2021. Surgcial cx positive on 06/18/21 for MSSA. ? He has been medically stable and working with physical therapy and progressing he still needs IV antibiotics through july then will be transitioned to oral will defer to Ortho or PCP. ?He has been cleared for discharge and is being discharged home with services. ? Home Meds and New Rx's Prescriptions: New ferrous sulfate 325 mg (65 mg iron) Tablet 325 mg PO BID Qty: 60 0RF gabapentin 100 mg Capsule 100 mg PO TID Qty: 90 0RF magnesium oxide 400 mg (241.3 mg magnesium) Tablet 800 mg PO BID Qty: 60 0RF oxycodone 5 mg Tablet 5 mg PO Q6H PRN PRNQty: 20 0RF pantoprazole 40 mg Tablet,Delayed Release (Dr/Ec) 40 mg PO BID@0730,1999 Qty: 60 0RF sucralfate 1 gram Tablet 1 g PO AC & HS Qty: 120 0RF Bio-K plus 50 billion cell capsule,delayed release(DR/EC) 1 cap PO DAILY Qty: 60 0RF Continued sildenafil [Viagra] 50 MG tablet 50 mg PO DAILY PRN0RF nitroglycerin [Nitrostat] 0.4 MG tablet, sublingual 0.4 mg Sublingual PRN PRN0RF epinephrine 0.3 MG/0.3 ML auto-injector 0.3 mg IM PRN PRN0RF insulin aspart U-100 [Novolog Flexpen U-100 Insulin] 100 unit/mL (3 mL) insulin pen 15 - 17 unit SUBCUT DIRECTED 0RF Label Comments: INJECT UNDER THE SKIN FOUR TIMES DAILY ON SLIDING SCALE DIRECTED. MAXIMUM DAILY DOSE IS 60 UNITS clopidogrel 75 mg tablet 75 mg PO DAILY 0RF Label Comments: TAKE 1 TABLET BY MOUTH EVERY DAY cetirizine 10 mg tablet 10 mg PO DAILY PRN0RF Label Comments: TAKE 1 TABLET BY MOUTH EVERY DAY NEEDED FOR HIVES levothyroxine 25 mcg tablet 25 mcg PO DAILY 0RF Label Comments: TAKE 1 TABLET BY MOUTH DAILY celecoxib 100 mg capsule 100 mg PO BID PRN (Reason: Pain) 0RF magnesium oxide 400 mg magnesium tablet 800 mg PO BID 0RF Label Comments: Take 1 tablet by mouth once a day metformin 500 mg Tablet 500 mg PO BID 0RF furosemide [Lasix] 20 mg Tablet 20 mg PO QAM 0RF Lantus Solostar U-100 Insulin 100 unit/mL (3 mL) Insulin Pen 22 unit SUBCUT QPM 0RF rosuvastatin 10 mg Tablet 10 mg PO DAILY Qty: 30 0RF montelukast 10 mg Tablet 10 mg PO DAILY Qty: 30 0RF metoprolol tartrate 75 mg tablet 75 mg PO BID 0RF Label Comments: TAKE 1 TABLET BY MOUTH TWICE DAILY Discharge Instructions Instructions: Bacteremia (DC), Abscess Incision and Drainage (DC) Additional Instructions: Discharge home with Home health services Defer to Ortho or PCP to transition to oral antibiotics. Take probiotic for at least one month after 6 months of antibiotcs in addition to 6 months and eat a yogurt. Weekly labs. Labs today were revealing improving inflammatory markers. Follow up with Ortho as scheduled and PCP as needed. Knee Discharge Instructions Activity: The most important activity is to work on regaining your strength. You should try to take short walks a few times a day. It is important that when resting you work on keeping the knee straight. Avoid putting a pillow behind the knee as this will encourage flexion. Work on range of motion exercises as provided by Physical Therapy. You should continue with home based physical therapy to focus on independent ambulation and regaining your strength and mobility. Avoid any squatting or kneeling. No forced flexion more than 90 degrees. Dressing: The wounds need no dressing. The one wound on the outside of the knee may require a light gauze for a bit longer but this should continue to improve. Follow-up: 3-4 weeks with x-ray and review of labs. If you have any acute concerns or questions, please do not hesitate to contact the office at [phone]. You may contact Dr. Rice with any questions after hours through the hospital at [phone] or on his cell phone at [phone]. Activity:: Activity as Tolerated Equipment/Supplies:: No Equipment Needed Diet:: Low Sodium Discharge Orders Discharge Orders: Discharge Order (Routine); Ordered 07/11/21 Ordered By: Irena Miller DS: Summary Time Spent with Patient providing and/or coordinating discharge services: Less than 30 minutes Status at Discharge Functional status at discharge: uses cane/walker Overall status at discharge: patient is progressing back to baseline Mental Status: mental status grossly normal Speech and Movement: speech and movement normal Mood: congruent mood Affect: normal affect Exam Narrative Exam Narrative: General: Pleasant middle-aged male, A&Ox3, appears comfortable in bed HEENT: EOMI, MMM, poor dentition Heart: RRR, no m/r/g Lungs: CTAB Abdomen: soft, nontender, nondistended Extremities: L knee with approx wound edges, c/d/I. Some drainage to small incision to left lateral aspect of knee. Psych Mental Status: mental status grossly normal Speech and Movement: speech and movement normal Mood: congruent mood Affect: normal affect DS: Data Vitals/I&O Vitals and I&O: Vital Signs Temperature 36.8 C 07/11/21 07:44 Temperature Source Tympanic 07/11/21 07:44 Pulse 89 07/11/21 07:44 Pulse Rhythm Regular 07/11/21 04:30 Respiratory Rate 17 07/11/21 07:44 Respiratory Effort Non-Labored 07/11/21 04:30 Respiratory Depth Normal 07/11/21 04:30 Respiratory Pattern Normal 07/11/21 04:30 Blood Pressure 127/70 07/11/21 07:44 Pulse Oximetry 96 07/11/21 07:44 Oxygen Delivery Method Room Air 07/11/21 07:44 Oxygen Flow Rate 0 07/11/21 07:44 Pain Level 1 07/11/21 07:44 Comment 07/03/21 14:45 Intake & Output 07/10/21 07/10/21 07/11/21 11:59 23:59 11:59 Intake Total 290 / 510 220 / 510 Output Total 900 / 1100 200 / 1100 750 / 750 Balance -610 / -590 20 / -590 -750 / -750 Intake: IV 50 / 150 100 / 150 Oral 240 / 360 120 / 360 Output: Urine 900 / 1100 200 / 1100 750 / 750 Other: Urine Color Yellow Yellow Straw Urine Appearance Clear Clear Clear Urine Odor None None Voiding Methods Urinal Urinal Urinal Data Completed and Pending Completed studies during hospitalization [Text1]: IMPRESSION: 1.? No evidence of venous thrombosis in the left upper extremity. 2.? No evidence of thrombosis along the course of the visualize PICC line. IMPRESSION: 1.? No ultrasound evidence of DVT in either lower extremity. ?Moderate edema is noted in the left calf and ankle. Labs on day of discharge: Labs from last 24 hours 07/11/21 07/11/21 05:30 05:30 WBC 8.48 RBC 2.89 L Hgb 8.0 L Hct 26.5 L MCV 91.7 MCH 27.7 MCHC 30.2 L RDW 15.4 H Plt Count 460 H MPV 8.5 Immature Gran % 0.5 Neutrophils % 71.6 Lymphocytes % 10.4 Monocytes % 11.7 Eosinophils % 4.7 Basophils % 1.1 Nucleated RBC % 0.0 Absolute Neutrophils 6.08 Absolute Lymphocytes 0.88 L Absolute Monocytes 0.99 H Absolute Eosinophils 0.40 Absolute Basophils 0.09 Sodium 136 Potassium 4.1 Chloride 102 Carbon Dioxide 26.4 Anion Gap 7.6 BUN 26 H Creatinine 1.4 H Estimated GFR/1.73 m2 50.25 Glucose 133 H Calcium 7.9 L C-Reactive Protein 3.09 H PFSH All Active Problems Discharge planning issues (Acute) Fever (Acute) Hypothyroidism (Chronic) Diabetes mellitus type 2 in obese (Acute) MSSA bacteremia (Acute) Cutaneous abscess of left knee (Acute) Septic arthritis of knee, left (Acute) CKD (chronic kidney disease) (Chronic) CAD (coronary artery disease) (Chronic) Closed left clavicular fracture (Acute 09/07/18) Medical History Acute GI bleeding Diabetes Fall Heart attack Hypercholesterolemia Hypertension Lip swelling Social History Smoking/Tobacco Use Status: Former Tobacco Use Quit Date: 12/22/18 Tobacco: How many years used: 50 Smoking risk assessment performed?: Yes Alcohol Intake: current Alcohol Intake frequency: 3 or more drinks per day Alcohol type: beer Substance use type: does not use Do you feel safe at home: Yes Do you feel safe in your relationship?: Yes
--- NOTE | 2021-07-11 10:14 | PDOC.CMDIS ---
- If Service Date Differs Date of service: 07/11/21 Time of Service: 10:14 LACE Index Scoring Tool - Questions: Length of Stay (in days): 14 or more Acuity (Admit via E.D.?): Yes Comorbidities: Previous M.I., Diabetes w/o Complication, Liver or Renal Disease E.D. 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 He will receive home infusion services for IV antibiotics through [facility] until the end of July. He will follow up with his PCP , orthopedic surgeon and plan of care Patient/Family Education Needs: Review of discharge instructions, limitations, follow up plan, activity, medications and discuss Ask Me Three. Services Needed at Discharge: Home Health Care Services, Infusion Therapy
--- NOTE | 2021-07-11 18:00 | PT.INDS ---
Date of service: 07/11/21 PT Notes Visit Reasons: Septic arthritis left knee Swing Bed I Physical Therapy Inpatient Discharge Summary Date: 07/11/2021 Dates of Service: 07/02/2021 through 07/10/2021 This is a clinical summary of care provided for the duration of dates listed above. No charge was made in the completion of this documentation. Referring Doctor: Andie Sotelo,? SEARCH COORDINATOR PT Orders: PT CONSULT: Eval/treat Precautions: Fall. Standard.? Weight bearing as tolerated on the left LE with AD.? Per Dr. Rice, no flexion in the L knee beyond 90 degrees.? No pillow directly under the L knee. Patient Profile/Admitting Diagnosis: Bear is a 70-year-old male who presented to the ED with increased pain, swelling, and redness of the left knee and leg and decreased ability to move set extremity that had been going on 1-1/2 weeks prior. ? Patient is diagnosed with septic arthritis, acute GI bleeding, coronary artery disease, diabetes mellitus, hypertension, and hypercholesterolemia.? Patient is status post debridement and lavage for infection and I&D of abscess on 06/11/21, 06/18/21, and 06/25/21.? PMHX: All Active Problems?(Updated 06/10/21 @ 16:11 by Nav Albarado MD) DVT prophylaxis (Acute) CKD (chronic kidney disease) (Chronic) Acute anemia (Acute) Septic arthritis (Acute) Acute GI bleeding (Acute) Anaphylactic reaction due to adverse effect of correct drug or medicament properly administered, initial encounter (Acute) CAD (coronary artery disease) (Chronic) Acute kidney injury superimposed on CKD (Acute) Closed left clavicular fracture (Acute 09/07/18) Medical History? Diabetes Heart attack Hypercholesterolemia Hypertension Lip swelling Social History/Home Situation: Independent with all ADL performance without an assistive device.? Lives with fianc? in a private home.? 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 Equipment Owned/DME: None Subjective: NT. See most recent CATCH BASIN CLEANER notes. Objective: General Observation: NT. See most recent CATCH BASIN CLEANER notes. Mental Status:NT. See most recent CATCH BASIN CLEANER notes. Pain: NT. See most recent CATCH BASIN CLEANER notes. ROM: Right Upper Extremity: ? Shoulder Flexion WFL. Shoulder abduction WFL. Elbow flexion WFL. Wrist flexion WFL. Functional opening and closing of hand WFL. Left Upper Extremity:? Shoulder Flexion WFL. Shoulder abduction WFL. Elbow flexion WFL. Wrist flexion WFL. Functional opening and closing of hand WFL. Right Lower Extremity: Hip flexion WFL. Hip abduction WFL. Knee flexion WFL. Ankle dorsiflexion WFL. Ankle plantarflexion WFL. Left Lower Extremity: Able do 90 degrees of knee flexion in bed and up to 120 hip flexion while seated at edge of bed.? Knee extensors -25 degrees.? Able to slide R LE out to about 20 degree to sit aup at edge of bed. ? Ankle dorsiflexion to neutral only.. Ankle plantarflexion WFL. Strength: Right Upper Extremity: Shoulder flexors 4/5. Shoulder abductors 4/5. Elbow flexors 5/5. Elbow extensors 5/5. Security Team Lead strong. Left Upper Extremity: Shoulder flexors 4/5. Shoulder abductors 4/5. Elbow flexors 5/5. Elbow extensors 5/5. Security Team Lead strong. Right Lower Extremity: Hip flexors 5/5. Hip abductors 5/5. Knee flexors 5/5. Knee extensors 5/5. Ankle dorsiflexors 5/5. Ankle plantarflexors 5/5. Left Lower Extremity: ? Hip flexors 3-/5. Hip abductors 2-/5. Knee flexors 3-/5. Knee extensors 3-/5. Ankle dorsiflexors 3-/5. Ankle plantarflexors 4/5. ? Bed Mobility/Transfers: Supine to sit independent Sit to stand with supervision Stand to sit with supervision Bed to reclining supervision Gait: Instructed patient with level surface ambulation of 75 feet + 30 feet + 50 feet + 50 feet using front-wheeled walker with wheelchair follow needed for safety.? Requiring stand by assist.? Almost full knee extension at L midstance.? L step length increased with full step through,? R step length decreased with step to.? Trunk now more erect.? Patient reports? 3-4 /10 pain in the L knee that subsided with rest. Stairs: Up and down 6 x 4 inch steps while holding onto B rails with step to gait pattern.? Stand by assist needed.? Balance: Static Sitting: Normal Dynamic Sitting: Normal Static Standing: Fair Dynamic Standing: Fair ASSESSMENT: Mobility independence improving.? Pain tolerance is improving.? Gait pattern and safety of ambulation improving.? AROM and strength to L knee joint and muscles improving.? patient will continue to benefit from services to progress strength, mobility level, activity tolerance, and balance. Patient presents with clinical signs and symptoms consistent with current/admitting diagnoses that have resulted to mobility limitations, gait instability, generalized weakness, and overall ADL decline as demonstrated by the following impairment level findings: 1.? Decreased strength to left LE major muscle groups 2.? Impaired sitting/standing balance 3.? Impaired activity tolerance 4.? Limitation of joint range of motion in L knee joint Impairments are contributing to the following functional limitations: 1.? Increasing bed mobility skills 2.? Increasing transfer skills 3.? Decreasing difficulty with ambulation with assistive device 4.? Increased completion time for mobility ADL performance 5.? Increased risk for falls 6.? Difficulty with managing steps alone safely Goals: Goals X1 week 1. Supine-Sit independent MET 2. Sit-Supine independent MET 3. Sit-Stand independent NOT MET 4. Stand-Sit independent with FWW NOT MET 5. Bed-Chair independent with FWW NOT MET 6. Chair-Bed independent with FWW NOT MET 7. Independent gait on level surface with use of FWW for at least 300 feet without report of pain nor dyspnea NOT MET 8. Independent stair negotiation while holding onto B rails for at least 5 steps without report of pain nor dyspnea NOT MET 9. Independent with home exercise program NOT MET 10. Good static and dynamic standing balance/tolerance NOT MET DISCHARGE RECOMMENDATIONS: [] ? Home with no services [] [X] ? Home with services.? Home when medically cleared by hospitalist and/or orthopedic surgeon.? Patient will benefit from home health PT services in order to progress mobility level using least restrictive assistive ambulatory device, assess home safety, identify additional equipment needs, and establish a functional maintenance program that will increase ability of patient to remain at home.? May transition to outpatient PT services for continued rehabitation as needed. [] ? Home with outpatient PT [] [] ? SNF for continued rehabilitation [] [] ? Senior Policy Analyst Care [] [] ? SNF versus LTC based on ability to participate and progress [] TREATMENT CODE/TIME: LA Thank you for the opportunity to participate in the care of this patient. Barb Araiza PT, DPT, CLT [facility] [place], [place]
== END 2021-07-11 11:58 | disposition home health service (06) | DRG 560 ==
PROVIDERS: Internal Medicine; Nurse Practitioner Family; Student in an Organized Health Care Education/Training Program; Admitting Provider Internal Medicine; PCP Physician Assistant Medical; Visit Provider Internal Medicine
DX: Z47.89 Encounter for other orthopedic aftercare (principal); M00.062 Staphylococcal arthritis, left knee; M86.262 Subacute osteomyelitis, left tibia and fibula; L02.416 Cutaneous abscess of left lower limb; R78.81 Bacteremia; N17.9 Acute kidney failure, unspecified; B95.61 Methicillin susceptible Staphylococcus aureus infection as the cause of diseases classified elsewhere; E66.9 Obesity, unspecified; N18.9 Chronic kidney disease, unspecified; E11.22 Type 2 diabetes mellitus with diabetic chronic kidney disease; D64.9 Anemia, unspecified; I25.10 Atherosclerotic heart disease of native coronary artery without angina pectoris; Z68.33 Body mass index [BMI] 33.0-33.9, adult; E03.9 Hypothyroidism, unspecified; I25.2 Old myocardial infarction; I12.9 Hypertensive chronic kidney disease with stage 1 through stage 4 chronic kidney disease, or unspecified chronic kidney disease; E78.00 Pure hypercholesterolemia, unspecified; Z87.891 Personal history of nicotine dependence; Z79.84 Long term (current) use of oral hypoglycemic drugs; Z79.4 Long term (current) use of insulin; R50.9 Fever, unspecified; R19.7 Diarrhea, unspecified
CPT/HCPCS: 36415; 80048; 80053; 84145; 85027; 85652; 86850; 86900; 86901; 86920; 87040; 87635; 97110; 97162; 97166; 97530; 97535; 99306; 99315; 81003; 83735; 85014; 85018; 85025; 86140; 93970; 93971; 99232; 99308; 99310; J0690; J2997; P9016

== ENCOUNTER 2021-07-17 18:07 | Outpatient (REF) | payer MEDICARE, MEDICAID, SELFPAY ==
[2021-07-17 22:38] LABS: BUN 26 mg/dL (7-18); C-Reactive Protein 2.08 mg/dL (0.0-0.3); CREATININE 1.6 mg/dL (0.70-1.30); Calcium 8.4 mg/dL (8.5-10.1); Chloride 101 mmol/L (98-107); Estimated GFR 43.07 (mL/min/1.73m2); Glucose 145 mg/dL (74-106); Magnesium 1.7 mg/dL (1.8-2.4); Potassium 5.7 mmol/L (3.5-5.1); Sodium 137 mmol/L (136-145)
[2021-07-18 12:22] LABS: Abs Immature Grans 0.04 10^3/uL (0.0-0.06); Absolute Basophil Count 0.11 10^3/uL (0.0-0.2); Absolute Lymphocyte Count 1.16 10^3/uL (1.2-3.4); Absolute Monocyte Count 1.03 10^3/uL (0.1-0.8); Absolute Neutrophil Count 7.33 10^3/uL (1.2-6.7); Basophils % 1.1; HCT 30.3 % (40.0-50.0); HGB 8.9 g/dL (13.5-17.5); Immature Grans % 0.4; Lymphocytes % 11.5; MCH 27.6 pg (27.0-33.0); MCHC 29.4 % (32.0-36.0); MCV 94 fL (80-95); MPV 9.4 fL (8.0-11.0); Monocytes % 10.2; Neutrophils % 72.8; Platelet Count 467 10^3/uL (130-400); RBC 3.22 10^6/uL (4.36-5.78); RDW 15.5 % (11.8-14.1); RDW-SD 53.5 fL; WBC 10.07 10^3/uL (4.4-10.8)
== END 2021-07-17 18:08 | disposition home or self-care (01) ==
LOC: NCHCN 18:07
PROVIDERS: PCP Physician Assistant Medical; Visit Provider Physician Assistant Medical
DX: E83.42 Hypomagnesemia (principal); D64.9 Anemia, unspecified; M00.862 Arthritis due to other bacteria, left knee
CPT/HCPCS: 80048; 83735; 85025; 86140

== ENCOUNTER 2021-07-24 15:50 | Outpatient (REF) | payer MEDICARE, MEDICAID, SELFPAY ==
[2021-07-24 17:56] LABS: Abs Immature Grans 0.04 10^3/uL (0.0-0.06); Absolute Basophil Count 0.06 10^3/uL (0.0-0.2); Absolute Lymphocyte Count 0.67 10^3/uL (1.2-3.4); Absolute Monocyte Count 1.09 10^3/uL (0.1-0.8); Absolute Neutrophil Count 8.18 10^3/uL (1.2-6.7); Basophils % 0.6; Eosinophils % 2.9; HCT 29.4 % (40.0-50.0); HGB 8.9 g/dL (13.5-17.5); Immature Grans % 0.4; Lymphocytes % 6.5; MCH 27.2 pg (27.0-33.0); MCHC 30.3 % (32.0-36.0); MCV 90 fL (80-95); MPV 9.2 fL (8.0-11.0); Monocytes % 10.5; Neutrophils % 79.1; Platelet Count 394 10^3/uL (130-400); RBC 3.27 10^6/uL (4.36-5.78); RDW 15.6 % (11.8-14.1); RDW-SD 51.2 fL; WBC 10.34 10^3/uL (4.4-10.8)
[2021-07-24 19:19] LABS: Anion Gap 10.1 mmol/L (3-11); BUN 36 mg/dL (7-18); C-Reactive Protein 3.41 mg/dL (0.0-0.3); CO2 24.9 mmol/L (21.0-32.0); CREATININE 1.6 mg/dL (0.70-1.30); Calcium 8.2 mg/dL (8.5-10.1); Chloride 103 mmol/L (98-107); Estimated GFR 43.07 (mL/min/1.73m2); Glucose 132 mg/dL (74-106); Potassium 4.7 mmol/L (3.5-5.1); Sodium 138 mmol/L (136-145)
== END 2021-07-24 15:51 | disposition home or self-care (01) ==
LOC: LBN 15:50
PROVIDERS: PCP Physician Assistant Medical; Visit Provider Physician Assistant Medical
DX: R94.4 Abnormal results of kidney function studies (principal); Z51.81 Encounter for therapeutic drug level monitoring
CPT/HCPCS: 80048; 85025; 86140

== ENCOUNTER 2021-07-31 10:36 | Outpatient (REF) | payer MEDICARE, MEDICAID, SELFPAY ==
[2021-07-31 15:18] LABS: Abs Immature Grans 0.02 10^3/uL (0.0-0.06); Absolute Basophil Count 0.08 10^3/uL (0.0-0.2); Absolute Eosinophil Count 0.43 10^3/uL (0.0-0.7); Absolute Lymphocyte Count 0.63 10^3/uL (1.2-3.4); Absolute Monocyte Count 0.88 10^3/uL (0.1-0.8); Absolute Neutrophil Count 6.23 10^3/uL (1.2-6.7); Eosinophils % 5.2; HCT 30.4 % (40.0-50.0); HGB 9.2 g/dL (13.5-17.5); Immature Grans % 0.2; Lymphocytes % 7.6; MCH 27.3 pg (27.0-33.0); MCHC 30.3 % (32.0-36.0); MCV 90 fL (80-95); MPV 8.7 fL (8.0-11.0); Monocytes % 10.6; Neutrophils % 75.4; Platelet Count 359 10^3/uL (130-400); RBC 3.37 10^6/uL (4.36-5.78); RDW 15.6 % (11.8-14.1); RDW-SD 51.7 fL; WBC 8.27 10^3/uL (4.4-10.8)
[2021-07-31 16:00] LABS: BUN 23 mg/dL (7-18); C-Reactive Protein 1.43 mg/dL (0.0-0.3); CREATININE 1.4 mg/dL (0.70-1.30); Chloride 101 mmol/L (98-107); Estimated GFR 50.25 (mL/min/1.73m2); Glucose 135 mg/dL (74-106); Potassium 3.9 mmol/L (3.5-5.1); Sodium 136 mmol/L (136-145)
== END 2021-07-31 10:37 | disposition home or self-care (01) ==
LOC: LBN 10:36
PROVIDERS: PCP Physician Assistant Medical; Visit Provider Student in an Organized Health Care Education/Training Program
DX: M00.062 Staphylococcal arthritis, left knee (principal); B95.61 Methicillin susceptible Staphylococcus aureus infection as the cause of diseases classified elsewhere
CPT/HCPCS: 80048; 85025; 86140

== ENCOUNTER 2021-08-07 19:38 | Outpatient (REF) | payer MEDICARE, MEDICAID, SELFPAY ==
[2021-08-07 20:39] LABS: Abs Immature Grans 0.02 10^3/uL (0.0-0.06); Absolute Basophil Count 0.09 10^3/uL (0.0-0.2); Absolute Eosinophil Count 0.39 10^3/uL (0.0-0.7); Absolute Lymphocyte Count 0.91 10^3/uL (1.2-3.4); Absolute Monocyte Count 0.94 10^3/uL (0.1-0.8); Absolute Neutrophil Count 5.51 10^3/uL (1.2-6.7); Basophils % 1.1; HCT 33.3 % (40.0-50.0); HGB 10.3 g/dL (13.5-17.5); Immature Grans % 0.3; Lymphocytes % 11.6; MCH 27.5 pg (27.0-33.0); MCHC 30.9 % (32.0-36.0); MCV 89 fL (80-95); MPV 8.9 fL (8.0-11.0); Platelet Count 412 10^3/uL (130-400); RBC 3.74 10^6/uL (4.36-5.78); RDW 15.3 % (11.8-14.1); RDW-SD 50.1 fL; WBC 7.86 10^3/uL (4.4-10.8)
[2021-08-07 21:09] LABS: ALT 22 U/L (16-63); AST 20 U/L (15-37); Albumin 3.2 g/dL (3.4-5.0); Alkaline Phosphatase 109 U/L (46-116); BUN 22 mg/dL (7-18); Bilirubin, Total 0.3 mg/dL (0.2-1.0); CREATININE 1.3 mg/dL (0.70-1.30); Chloride 102 mmol/L (98-107); Estimated GFR 54.73 (mL/min/1.73m2); Glucose 107 mg/dL (74-106); Potassium 4.6 mmol/L (3.5-5.1); Sodium 137 mmol/L (136-145); Total Protein 7.2 g/dL (6.4-8.2)
[2021-08-08 18:01] LABS: CRP, High Sensitivity 11.57 mg/L (See Note)
== END 2021-08-07 19:39 | disposition home or self-care (01) ==
LOC: NCHCN 19:38
PROVIDERS: PCP Physician Assistant Medical; Visit Provider Physician Assistant Medical
DX: M00.862 Arthritis due to other bacteria, left knee (principal); B95.61 Methicillin susceptible Staphylococcus aureus infection as the cause of diseases classified elsewhere
CPT/HCPCS: 80053; 86141; 83735; 85025

== ENCOUNTER 2021-08-09 09:24 | Outpatient (CLI) | payer MEDICARE, MEDICAID, SELFPAY ==
--- NOTE | 2021-08-09 09:00 | DI.RAD_ITS ---
Exam(s) XR KNEE LT 2V AP,LAT EXAM: XR KNEE LT 2V AP,LAT CLINICAL HISTORY: INFECTED L KNEE. TECHNIQUE: 2D digital imaging was performed. Three views. COMPARISON: CR XR KNEE LT 3V AP,LAT,DRAKE from 06/18/2021 CR XR KNEE LT 2V AP,LAT from 06/19/[address] LOWER EXTREMITY LT W from 06/20/2021 CR XR KNEE LT 2V AP,LAT from 06/28/2021 FINDINGS: BONES: No acute fracture is present. No change in hardware position. JOINTS: The knee is normally aligned. A joint effusion is seen. SOFT TISSUE: Swelling remains present. Decreased soft tissue air. Vascular calcifications. IMPRESSION: No change in hardware. No new abnormalities. DATA REPOSITORY: RADIATION DOSE DELIVERED:
== END 2021-08-09 09:25 | disposition home or self-care (01) ==
LOC: DIORS 09:25
PROVIDERS: PCP Physician Assistant Medical; Referring Provider Physician Assistant Medical; Visit Provider Student in an Organized Health Care Education/Training Program
DX: M00.9 Pyogenic arthritis, unspecified (principal)
CPT/HCPCS: 73560; J1030

== ENCOUNTER 2021-08-09 10:55 | Outpatient (RCR) | payer MEDICARE, MEDICAID, SELFPAY ==
[2021-08-09] MEDS: Bacitracin 1 PACKET (11:29)
== END 2021-08-13 23:59 | disposition home or self-care (01) ==
LOC: INF 10:55
PROVIDERS: PCP Physician Assistant Medical; Visit Provider Student in an Organized Health Care Education/Training Program
DX: Z45.2 Encounter for adjustment and management of vascular access device (principal)

== ENCOUNTER 2021-08-21 09:10 | Outpatient (REF) | payer MEDICARE, SELFPAY ==
[2021-08-21 15:07] LABS: Abs Immature Grans 0.02 10^3/uL (0.0-0.06); Absolute Basophil Count 0.11 10^3/uL (0.0-0.2); Absolute Eosinophil Count 0.47 10^3/uL (0.0-0.7); Absolute Lymphocyte Count 1.07 10^3/uL (1.2-3.4); Absolute Monocyte Count 1.06 10^3/uL (0.1-0.8); Absolute Neutrophil Count 6.23 10^3/uL (1.2-6.7); Basophils % 1.2; Eosinophils % 5.2; HCT 37.4 % (40.0-50.0); HGB 11.5 g/dL (13.5-17.5); Immature Grans % 0.2; Lymphocytes % 11.9; MCH 27.3 pg (27.0-33.0); MCHC 30.7 % (32.0-36.0); MCV 89 fL (80-95); MPV 9.1 fL (8.0-11.0); Monocytes % 11.8; Neutrophils % 69.7; Platelet Count 334 10^3/uL (130-400); RBC 4.22 10^6/uL (4.36-5.78); RDW 14.8 % (11.8-14.1); RDW-SD 47.8 fL; WBC 8.96 10^3/uL (4.4-10.8)
[2021-08-21 17:27] LABS: Anion Gap 11.9 mmol/L (3-11); BUN 36 mg/dL (7-18); C-Reactive Protein 1.28 mg/dL (0.0-0.3); CO2 25.1 mmol/L (21.0-32.0); CREATININE 1.8 mg/dL (0.70-1.30); Calcium 9.2 mg/dL (8.5-10.1); Chloride 102 mmol/L (98-107); Glucose 139 mg/dL (74-106); Potassium 4.1 mmol/L (3.5-5.1); Sodium 139 mmol/L (136-145)
== END 2021-08-21 09:11 | disposition home or self-care (01) ==
LOC: NCHCN 09:10
PROVIDERS: PCP Physician Assistant Medical; Visit Provider Physician Assistant Medical
DX: M00.862 Arthritis due to other bacteria, left knee (principal); E11.22 Type 2 diabetes mellitus with diabetic chronic kidney disease
CPT/HCPCS: 80048; 85025; 86140

== ENCOUNTER 2021-08-26 10:36 | Outpatient (REF) | payer MEDICARE, MEDICAID, SELFPAY ==
[2021-08-26 15:07] LABS: Abs Immature Grans 0.03 10^3/uL (0.0-0.06); Absolute Eosinophil Count 0.45 10^3/uL (0.0-0.7); Absolute Lymphocyte Count 1.01 10^3/uL (1.2-3.4); Absolute Neutrophil Count 6.64 10^3/uL (1.2-6.7); Basophils % 1.1; HCT 37.5 % (40.0-50.0); HGB 11.4 g/dL (13.5-17.5); Immature Grans % 0.3; Lymphocytes % 11.3; MCH 26.8 pg (27.0-33.0); MCHC 30.4 % (32.0-36.0); MCV 88 fL (80-95); MPV 9.1 fL (8.0-11.0); Monocytes % 7.8; Neutrophils % 74.5; Platelet Count 336 10^3/uL (130-400); RBC 4.26 10^6/uL (4.36-5.78); RDW 14.8 % (11.8-14.1); RDW-SD 47.8 fL; WBC 8.93 10^3/uL (4.4-10.8)
[2021-08-26 15:34] LABS: Anion Gap 11.4 mmol/L (3-11); BUN 40 mg/dL (7-18); CO2 24.6 mmol/L (21.0-32.0); Calcium 9.1 mg/dL (8.5-10.1); Chloride 100 mmol/L (98-107); Estimated GFR 33.29 (mL/min/1.73m2); Glucose 147 mg/dL (74-106); Potassium 4.2 mmol/L (3.5-5.1); Sodium 136 mmol/L (136-145)
== END 2021-08-26 10:37 | disposition home or self-care (01) ==
LOC: NCHCN 10:36
PROVIDERS: PCP Physician Assistant Medical; Visit Provider Physician Assistant Medical
DX: M00.862 Arthritis due to other bacteria, left knee (principal)
CPT/HCPCS: 80048; 85025

== ENCOUNTER 2021-08-30 20:32 | Inpatient (IN) | payer MEDICARE, MEDICAID, SELFPAY ==
[2021-08-30] VITALS (22 sets, daily range): BP systolic 104–135; BP diastolic 45–119; PULSE 93–121; RESP 12–32; TEMP 39.4; O2SAT 90–97
--- NOTE | 2021-08-30 20:38 | W.ED.GENAD ---
Discharge Plan Disposition Patient Disposition: [facility] INPATIENT Condition: Fair Discharge Details Clinical Impression: Fever, Sepsis, Transaminitis, Vomiting, Abdominal pain Primary Care Provider: Antonella Lucas ED Provider: Irwin Gibson Home Meds and New Rx's Prescriptions: No Action sildenafil [Viagra] 50 MG tablet 50 mg PO DAILY PRN nitroglycerin [Nitrostat] 0.4 MG tablet, sublingual 0.4 mg Sublingual PRN PRN epinephrine 0.3 MG/0.3 ML auto-injector 0.3 mg IM PRN PRN insulin aspart U-100 [Novolog Flexpen U-100 Insulin] 100 unit/mL (3 mL) insulin pen 15 - 17 unit SUBCUT DIRECTED Label Comments: INJECT UNDER THE SKIN FOUR TIMES DAILY ON SLIDING SCALE DIRECTED. MAXIMUM DAILY DOSE IS 60 UNITS clopidogrel 75 mg tablet 75 mg PO DAILY Label Comments: TAKE 1 TABLET BY MOUTH EVERY DAY cetirizine 10 mg tablet 10 mg PO DAILY PRN Label Comments: TAKE 1 TABLET BY MOUTH EVERY DAY NEEDED FOR HIVES levothyroxine 25 mcg tablet 25 mcg PO DAILY Label Comments: TAKE 1 TABLET BY MOUTH DAILY celecoxib 100 mg capsule 100 mg PO BID PRN (Reason: Pain) magnesium oxide 400 mg magnesium tablet 800 mg PO BID Label Comments: Take 1 tablet by mouth once a day metformin 500 mg Tablet 500 mg PO BID furosemide [Lasix] 20 mg Tablet 20 mg PO QAM Lantus Solostar U-100 Insulin 100 unit/mL (3 mL) Insulin Pen 22 unit SUBCUT QPM rosuvastatin 10 mg Tablet 10 mg PO DAILY Qty: 30 0RF montelukast 10 mg Tablet 10 mg PO DAILY Qty: 30 0RF metoprolol tartrate 75 mg tablet 75 mg PO BID Label Comments: TAKE 1 TABLET BY MOUTH TWICE DAILY ferrous sulfate 325 mg (65 mg iron) Tablet 325 mg PO BID Qty: 60 0RF gabapentin 100 mg Capsule 100 mg PO TID Qty: 90 0RF magnesium oxide 400 mg (241.3 mg magnesium) Tablet 800 mg PO BID Qty: 60 0RF oxycodone 5 mg Tablet 5 mg PO Q6H PRN PRNQty: 20 0RF pantoprazole 40 mg Tablet,Delayed Release (Dr/Ec) 40 mg PO BID@0730,2000 Qty: 60 0RF sucralfate 1 gram Tablet 1 g PO AC & HS Qty: 120 0RF Bio-K plus 50 billion cell capsule,delayed release(DR/EC) 1 cap PO DAILY Qty: 60 0RF Medical Decision Making <Ember Rolon DO - Last Filed: 08/30/21 23:12> 2039 -- 71-year-old male with a history of obesity, diabetes, hypertension, hyperlipidemia, coronary artery disease with history of septic arthritis and MSSA infection of the left knee s/p irrigation debridement in June 2021 still currently on antibiotics presents for fever, vomiting and upper abdominal pain today. Heart rate 109, oral temp 103.1 on arrival. Oxygen saturation mid 90s on room air. His abdomen is soft and nontender. No signs of cellulitis or significant pain with range of motion at his left knee surgical site. He has edema to bilateral extremities but no signs of cellulitis. No meningeal signs. Lungs clear bilaterally. Differential diagnosis includes UTI, gastroenteritis, cholecystitis, flu, COVID, pneumonia, sepsis, left knee infection. Will place an IV, bolus IV fluids, screening labs, urinalysis, CT chest abdomen pelvis with oral contrast only, left knee xray, blood cultures, lactate and give IV tylenol. This patient was evaluated during a time of global shortage of iodinated contrast media. Based on guidance from the [employer], best practices, and local institutional approaches, an alternative path for evaluating and managing the patient may have been employed in order to provide optimal care during this shortage. The current situation has been discussed with the patient. 2230 --labs reviewed. White blood cell count 11.49. Lactate 2.5. Magnesium 1.6, will replete. Significant elevation of liver enzymes with AST of 719, ALT 416, alk phos 341. CRP 1.62. Troponin negative. Urinalysis unremarkable. Fluvid negative. Patient complaining of some pain in his hips. We will order a dose of Dilaudid. He is tolerating p.o. contrast. Plan is for CT at 11:45 PM. [id number] --Case endorsed to Dr. Gibson to follow-up on CT and final disposition. Will likely need admission for fever in the setting of abdominal pain and transaminitis. Medical Records Medical records reviewed: Yes I reviewed the patient's medical records. Lab Data Lab results reviewed: Yes I reviewed the patient's lab results. Labs: 08/30/21 21:44 Blood Blood Culture - Pending 08/30/21 21:44 Blood Blood Culture - Pending Laboratory Tests Range/Units 08/30/21 08/30/21 08/30/21 20:55 20:55 20:55 WBC (4.4-10.8) 10^3/uL RBC (4.36-5.78) 10^6/uL Hgb (13.5-17.5) g/dL Hct (40.0-50.0) % MCV (80-95) fL MCH (27.0-33.0) pg MCHC (32.0-36.0) % RDW (11.8-14.1) % Plt Count (130-400) 10^3/uL MPV (8.0-11.0) fL Immature Gran % Neutrophils % Lymphocytes % Monocytes % Eosinophils % Basophils % Nucleated RBC % (0.0-0.3) % Absolute Neutrophils (1.2-6.7) 10^3/uL Absolute Lymphocytes (1.2-3.4) 10^3/uL Absolute Monocytes (0.1-0.8) 10^3/uL Absolute Eosinophils (0.0-0.7) 10^3/uL Absolute Basophils (0.0-0.2) 10^3/uL VBG Lactate (0.6-1.4) mmol/L 2.5 H* Sodium (136-145) mmol/L Potassium (3.5-5.1) mmol/L Chloride (98-107) mmol/L Carbon Dioxide (21.0-32.0) mmol/L Anion Gap (3-11) mmol/L BUN (7-18) mg/dL Creatinine (0.70-1.30) mg/dL Estimated GFR/1.73 m2 (mL/min/1.73m2) Glucose (74-106) mg/dL Calcium (8.5-10.1) mg/dL Magnesium (1.8-2.4) mg/dL 1.6 L Total Bilirubin (0.2-1.0) mg/dL AST (15-37) U/L ALT (16-63) U/L Alkaline Phosphatase (46-116) U/L Troponin I (<or=60) ng/L C-Reactive Protein (0.0-0.3) mg/dL 1.62 H Total Protein (6.4-8.2) g/dL Albumin (3.4-5.0) g/dL Urine Color (Yellow) Urine Clarity (Clear) Urine pH (5-8) Ur Specific [place] (1.005-1.025) Urine Protein (Negative) mg/dL Urine Ketones (Negative) mg/dL Urine Blood (Negative) Urine Nitrite (Negative) Urine Bilirubin (Negative) Urine Urobilinogen (Up TO 0.2) EU/dL Ur Leukocyte Esterase (Negative) Urine RBC (0-2) HPF Urine WBC (0-5) HPF Ur Epithelial Cells (Negative) HPF Urine Crystals (Negative) HPF Urine Bacteria (Negative) HPF Urine Casts (Negative) LPF Urine Mucus (Negative) Ur Culture Indicated? Urine Glucose (Negative) mg/dL COVID-19 Source Not Applicable SARS-CoV-2 (PCR) (Negative) Negative Influenza Type A (PCR) (Negative) Negative Influenza Type B (PCR) (Negative) Negative RSV (PCR) (Negative) Negative Range/Units 08/30/21 08/30/21 08/30/21 20:55 20:55 21:25 WBC (4.4-10.8) 10^3/uL 11.49 H RBC (4.36-5.78) 10^6/uL 4.14 L Hgb (13.5-17.5) g/dL 11.2 L Hct (40.0-50.0) % 35.6 L MCV (80-95) fL 86 MCH (27.0-33.0) pg 27.1 MCHC (32.0-36.0) % 31.5 L D RDW (11.8-14.1) % 14.7 H Plt Count (130-400) 10^3/uL 256 MPV (8.0-11.0) fL 9.3 Immature Gran % 0.3 Neutrophils % 91.8 Lymphocytes % 1.7 Monocytes % 5.6 Eosinophils % 0.3 Basophils % 0.3 Nucleated RBC % (0.0-0.3) % 0.0 Absolute Neutrophils (1.2-6.7) 10^3/uL 10.55 H Absolute Lymphocytes (1.2-3.4) 10^3/uL 0.20 L Absolute Monocytes (0.1-0.8) 10^3/uL 0.64 Absolute Eosinophils (0.0-0.7) 10^3/uL 0.03 Absolute Basophils (0.0-0.2) 10^3/uL 0.03 VBG Lactate (0.6-1.4) mmol/L Sodium (136-145) mmol/L 139 Potassium (3.5-5.1) mmol/L 4.2 Chloride (98-107) mmol/L 101 Carbon Dioxide (21.0-32.0) mmol/L 25.1 Anion Gap (3-11) mmol/L 12.9 H BUN (7-18) mg/dL 36 H Creatinine (0.70-1.30) mg/dL 1.9 H Estimated GFR/1.73 m2 (mL/min/1.73m2) 35.32 Glucose (74-106) mg/dL 212 H Calcium (8.5-10.1) mg/dL 9.2 Magnesium (1.8-2.4) mg/dL Total Bilirubin (0.2-1.0) mg/dL 1.2 H AST (15-37) U/L 719 H ALT (16-63) U/L 416 H Alkaline Phosphatase (46-116) U/L 341 H Troponin I (<or=60) ng/L < 50 C-Reactive Protein (0.0-0.3) mg/dL Total Protein (6.4-8.2) g/dL 8.0 Albumin (3.4-5.0) g/dL 3.4 Urine Color (Yellow) Yellow Urine Clarity (Clear) Clear Urine pH (5-8) 6.5 Ur Specific [place] (1.005-1.025) 1.020 Urine Protein (Negative) mg/dL 100 H Urine Ketones (Negative) mg/dL Negative Urine Blood (Negative) Negative Urine Nitrite (Negative) Negative Urine Bilirubin (Negative) Negative Urine Urobilinogen (Up TO 0.2) EU/dL 1.0 H Ur Leukocyte Esterase (Negative) Negative Urine RBC (0-2) HPF Negative Urine WBC (0-5) HPF Negative Ur Epithelial Cells (Negative) HPF Few Urine Crystals (Negative) HPF Negative Urine Bacteria (Negative) HPF Rare Urine Casts (Negative) LPF Negative Urine Mucus (Negative) Negative Ur Culture Indicated? No Urine Glucose (Negative) mg/dL Negative COVID-19 Source SARS-CoV-2 (PCR) (Negative) Influenza Type A (PCR) (Negative) Influenza Type B (PCR) (Negative) RSV (PCR) (Negative) ECG Data Attestation: I personally reviewed and interpreted this ECG (s) as follows: Interpretation: Rate of 109, sinus, [address] depression in V4 through V6 which appears more pronounced compared to previous EKG and [address] depression in 1 and aVL. No STEMI. <Irwin Gibson MD - Last Filed: 08/31/21 01:26> 2039 -- 71-year-old male with a history of obesity, diabetes, hypertension, hyperlipidemia, coronary artery disease with history of septic arthritis and MSSA infection of the left knee s/p irrigation debridement in June 2021 still currently on antibiotics presents for fever, vomiting and upper abdominal pain today. Heart rate 109, oral temp 103.1 on arrival. Oxygen saturation mid 90s on room air. His abdomen is soft and nontender. No signs of cellulitis or significant pain with range of motion at his left knee surgical site. He has edema to bilateral extremities but no signs of cellulitis. No meningeal signs. Lungs clear bilaterally. Differential diagnosis includes UTI, gastroenteritis, cholecystitis, flu, COVID, pneumonia, sepsis, left knee infection. Will place an IV, bolus IV fluids, screening labs, urinalysis, CT chest abdomen pelvis with oral contrast only, left knee xray, blood cultures, lactate and give IV tylenol. This patient was evaluated during a time of global shortage of iodinated contrast media. Based on guidance from the [employer], best practices, and local institutional approaches, an alternative path for evaluating and managing the patient may have been employed in order to provide optimal care during this shortage. The current situation has been discussed with the patient. 2230 --labs reviewed. White blood cell count 11.49. Lactate 2.5. Magnesium 1.6, will replete. Significant elevation of liver enzymes with AST of 719, ALT 416, alk phos 341. CRP 1.62. Troponin negative. Urinalysis unremarkable. Fluvid negative. Patient complaining of some pain in his hips. We will order a dose of Dilaudid. He is tolerating p.o. contrast. Plan is for CT at 11:45 PM. 2315 --Case endorsed to Dr. Gibson to follow-up on CT and final disposition. Will likely need admission for fever in the setting of abdominal pain and transaminitis. pt stable, ct showinghazy densities in gallbladder lumen and distention of gallbladder. He is tender in the ruq and given elevated lfts, fever suspect cholecystitis. Discussed with Dr. Cline plan for admission Imaging Data Radiologic Study: Attestation: I personally reviewed and interpreted this imaging study as follows: Imaging: CT Scan Radiologist's impression: IMPRESSION: 1. No infection source is seen, although consider imaging of the gallbladder with ultrasound or MRCP if clinically indicated. 2. Munoz catheter in a decompressed urinary bladder. 3. Additional findings as described HPI <Ember Rolon DO - Last Filed: 08/30/21 23:12> General Mode of arrival: ambulatory. Date/Time Provider Initiated Documentation: 08/30/21 20:35. Limitations to Documentation: no limitations. Information obtained by: patient. HPI Narrative: Patient is a 71-year-old male with a history of obesity, diabetes, hypertension, hyperlipidemia, CKD with history of septic arthritis of the left knee and MSSA bacteremia currently on antibiotics status post irrigation debridement, open synovectomy with placement of antibiotic spacer and intramedullary rods on 06/25/[address] Rice, status post left knee arthroscopy with placement of antibiotic beads with Dr. Josue on 06/18/2021 and status post left knee arthroscopy and I&D of abscess on 06/03/[address] Rice presents for fever, vomiting and abdominal pain today. Patient states he felt fine this morning. He states around 430 this afternoon he developed nausea and upper abdominal pain. He states the abdominal pain was severe but is now pain-free. He states his took his temperature temporally which was 100.3. He has not taken any Tylenol or ibuprofen today. He states he vomited 3 times which is mainly bile. He admits to a formed black bowel movement earlier today which he states is his baseline since taking iron. He also admits to urinary hesitancy for the past few weeks but denies any dysuria or hematuria. He states he has received a total of 3 COVID vaccines and it was reported that his sister tested positive for COVID 8 days ago. Related Data Home Medications Medication Instructions Recorded Confirmed Nitrostat 0.4 mg sublingual tablet 0.4 mg sublingual PRN PRN 03/01/13 08/09/21 (nitroglycerin) Viagra 50 mg tablet (sildenafil) 50 mg PO DAILY PRN 03/01/13 08/09/21 epinephrine 0.3 mg/0.3 mL 0.3 mg IM PRN PRN 03/01/13 08/09/21 injection, auto-injector furosemide 20 mg tablet (Lasix) 20 mg PO QAM 09/07/18 08/30/21 insulin glargine 100 unit/mL (3 22 unit subcut QPM 04/27/20 08/09/21 mL) subcutaneous pen (Lantus Solostar U-100 Insulin) montelukast 10 mg tablet 10 mg PO DAILY #30 tabs 05/17/21 08/09/21 rosuvastatin 10 mg tablet 10 mg PO DAILY #30 tabs 05/17/21 08/09/21 celecoxib 100 mg capsule 100 mg PO BID PRN Pain 06/10/21 08/30/21 cetirizine 10 mg tablet 10 mg PO DAILY PRN 06/10/21 08/09/21 clopidogrel 75 mg tablet 75 mg PO DAILY 06/10/21 08/30/21 insulin aspart U-100 100 unit/mL 15 - 17 unit subcut DIRECTED 06/10/21 08/09/21 (3 mL) subcutaneous pen (Novolog Flexpen U-100 Insulin aspart) levothyroxine 25 mcg tablet 25 mcg PO DAILY 06/10/21 08/30/21 magnesium oxide 800 mg PO BID 06/10/21 08/30/21 metformin 500 mg tablet 500 mg PO BID 06/23/21 08/30/21 metoprolol tartrate 75 mg tablet 75 mg PO BID 07/08/21 08/30/21 L. acidophilus,casei,rhamnosus 50 1 cap PO DAILY #60 caps 07/11/21 08/09/21 billion cell capsule,delayed release (Bio-K plus) ferrous sulfate 325 mg (65 mg 325 mg PO BID #60 tabs 07/11/21 08/30/21 iron) tablet gabapentin 100 mg capsule 100 mg PO TID #90 caps 07/11/21 08/30/21 magnesium oxide 400 mg (241.3 mg 800 mg PO BID #60 tabs 07/11/21 08/09/21 magnesium) tablet oxycodone 5 mg tablet 5 mg PO Q6H PRN PRN #20 tabs 07/11/21 08/09/21 pantoprazole 40 mg tablet,delayed 40 mg PO BID@0730,1999 #60 tabs 07/11/21 08/30/21 release sucralfate 1 gram tablet 1 g PO AC & HS #120 tabs 07/11/21 08/30/21 Previous Rx's Medication Instructions Recorded montelukast 10 mg tablet 10 mg PO DAILY #30 tabs 05/17/21 rosuvastatin 10 mg tablet 10 mg PO DAILY #30 tabs 05/17/21 L. acidophilus,casei,rhamnosus 50 1 cap PO DAILY #60 caps 07/11/21 billion cell capsule,delayed release (Bio-K plus) ferrous sulfate 325 mg (65 mg 325 mg PO BID #60 tabs 07/11/21 iron) tablet gabapentin 100 mg capsule 100 mg PO TID #90 caps 07/11/21 magnesium oxide 400 mg (241.3 mg 800 mg PO BID #60 tabs 07/11/21 magnesium) tablet oxycodone 5 mg tablet 5 mg PO Q6H PRN PRN #20 tabs 07/11/21 pantoprazole 40 mg tablet,delayed 40 mg PO BID@0730,1999 #60 tabs 07/11/21 release sucralfate 1 gram tablet 1 g PO AC & HS #120 tabs 07/11/21 Allergies Allergy/AdvReac Type Severity Reaction Status Date / Time lisinopril Allergy Severe Anaphylaxis Unverified 08/09/21 09:02 varenicline tartrate Allergy Unknown Unverified 08/09/21 09:02 [From Chantix] hornet Allergy facial/throat Uncoded 08/09/21 09:02 swelling General Stated Complaint: Fever JENN: 3 Review of Systems <Ember Rolon DO - Last Filed: 08/30/21 23:12> All systems reviewed & are unremarkable except as noted in HPI and below Constitutional Constitutional: Denies chills, Denies excessive sweating, Denies fatigue, Reports fever(s), Denies weakness and Denies weight loss Eyes Eyes: Reports system reviewed and no additional complaints, except as documented and Denies blurry vision ENT Ears, Nose, Mouth, and Throat: Denies vertigo, Denies dizziness, Denies otalgia, Denies nasal congestion, Denies sore throat and Denies throat swelling Cardiovascular Cardiovascular: Denies chest pain, Denies syncope, Denies rapid heart rate and Denies dyspnea Respiratory Respiratory: Denies chest congestion, Denies cough, Denies pain on inspiration and Denies dyspnea Gastrointestinal Gastrointestinal: Denies abdominal pain, Denies diarrhea and Reports vomiting Genitourinary Genitourinary: Denies hematuria, Denies dysuria and Denies flank pain Musculoskeletal Musculoskeletal: Denies back pain and Denies joint swelling Integumentary/Breasts Skin/Breast: Denies lesions and Denies rash Neurologic Neurologic: Denies behavioral changes, Denies confusion, Denies vertigo, Denies dizziness, Denies syncope, Denies localized weakness and Denies weakness Psychiatric Psychiatric: Denies behavioral changes, Denies confusion and Denies depression Endocrine Endocrine: Denies excessive sweating and Denies fatigue Hematologic/Lymphatic Hematologic/Lymphatic: Denies easy bruising and Denies lymphadenopathy Allergic/Immunologic Allergic/Immunologic: Denies throat swelling PFSH <Ember Rolon DO - Last Filed: 08/30/21 23:12> All Active Problems (Updated 08/30/21 @ 23:12 by Ember Rolon DO) Fever (Acute) Sepsis (Acute) Transaminitis (Acute) Vomiting (Acute) Abdominal pain (Acute) Septic arthritis of knee, left (Acute) CAD (coronary artery disease) (Chronic) Closed left clavicular fracture (Acute 09/07/18) Medical History (Updated 08/30/21 @ 23:12 by Ember Rolon DO) Acute GI bleeding CKD (chronic kidney disease) Coronary artery disease Diabetes mellitus type 2 in obese Heart attack Hypercholesterolemia Hypertension Hypothyroidism Septic arthritis of knee, left Surgical History (Updated 08/30/21 @ 22:16 by Ember Rolon DO) H/O arthroscopy of left knee History of foot surgery History of heart bypass surgery History of tonsillectomy Social History Smoking/Tobacco Use Status: Former Tobacco Use Quit Date: 12/22/18 Tobacco: How many years used: 50 Smoking risk assessment performed?: Yes Alcohol Intake: current Alcohol Intake frequency: 3 or more drinks per day Alcohol type: beer Substance use type: does not use Do you feel safe at home: Yes Do you feel safe in your relationship?: Yes Exam <Ember Rolon DO - Last Filed: 08/30/21 23:12> Const General: cooperative and healthy appearing Orientation: alert, awake and oriented x3 HENMT Head: normal to inspection Ears: hearing grossly normal bilaterally, external ears normal and TM's normal bilaterally General nose exam: external nose normal Face and sinus: normal facial exam Mouth: oral mucosae normal Teeth and gingiva: dentition normal Throat: posterior oropharynx normal Eyes General: appearance normal, both eyes and all related structures Eyelids: eyelids normal Pupils: PERRL EOM: EOM intact bilaterally Neck Neck: normal visual inspection Lymphatic: no lymphadenopathy noted Chest Chest: normal inspection of the chest Resp Effort & Inspection: normal respiratory effort and able to speak in complete sentences Auscultation: clear to auscultation bilaterally Cardio Rate: tachycardic Rhythm: regular rhythm GI Inspection: normal to inspection Palpation: soft, not firm, no guarding, no hepatosplenomegaly, no masses and nontender Auscultation: hypoactive bowel sounds Penis: normal penis Testes: no testicular swelling and no testicular tenderness Back/Spine/Pelvis Back: no CVA tenderness Skin General skin exam: no rashes or lesions noted Neuro General: patient alert and patient awake Cognition: normal cognition Speech: speech normal Gait: normal gait Motor: muscle tone normal throughout Sensory Exam: no sensory deficits noted Extrem Other: Well-healing vertical surgical scar overlying left anterior knee. There is no overlying cellulitis. No significant pain with range of motion. There is nonpitting edema to bilateral lower extremities, slightly increased in left lower extremity. There is no cellulitis noted to the lower legs bilaterally. Psych Appearance: grossly normal Mental Status: mental status grossly normal Speech and Movement: speech and movement normal Affect: normal affect Thought Process: normal Sign Out <Ember Rolon DO - Last Filed: 08/30/21 23:12> Sign Out Data: Sign Out Comment: Fever, vomiting, abdominal pain today. Follow-up on CT chest abdomen pelvis. Will likely need admission for fever and sepsis in the setting of transaminitis. Last updated by Ember Rolon DO at 08/30/21 22:38
--- NOTE | 2021-08-30 21:00 | RT.EKG_ITS ---
APPROVED REPORT Exam: Resting ECG Reason for Exam: fever/tachy Patient Location: E HR:109 bpm ECG Measurements Heart Rate 109 AXIS MA 178 P 53 QRSd 87 QRS 10 QT 297 T 242 QTc 400 Conclusion Sinus tachycardia...rate> 99 Inferior infarct, old...Q >35mS, II III aVF Nonspecific T abnormalities, lateral leads...T <-0.10mV, I aVL V5 V6. Sinus. 1mm ST depression in V4-6, more pronounced compared to previous EKG. 1mm ST depression in I an d aVL. No STEMI. I have reviewed and interpreted ECG and agree with software generated interpretation.
--- NOTE | 2021-08-30 21:15 | DI.CT_ITS ---
Exam(s) CT CHEST/ABD/PEL WO EXAM: CT CHEST/ABD/PEL WO CLINICAL HISTORY: fever, nausea, vomiting, abd pain. TECHNIQUE: Imaging Protocol: Axial computed tomography images with coronal and sagittal reformatted images were created and reviewed CONTRAST MATERIAL: Oral: [address] LOWER EXTREMITY LT W from 06/22/2021 FINDINGS: CHEST: Stable enlarged thyroid. Tracheobronchial tree: Patent where visualized. Mediastinum and Ada: No dominant adenopathy or fluid collection. Pulmonary parenchyma: Mild dependent changes. No consolidation or dominant measurable mass. Pleura: No effusion or pneumothorax. Lymph nodes: Within normal limits. Aorta: Thoracic portion non-dilated. Heart: Status post CABG and coronary artery stents. No pericardial effusion. No pericardial air. Bones: Degenerative changes. Stable mild anterior wedging T7.. No lytic or blastic lesions. Soft tissues: Mild gynecomastia. ABDOMEN: Liver: Motion artifact. Normal density. No measurable mass. Gallbladder and biliary tract: Motion artifact limits evaluation. No radiodense calculus or dilation . Pancreas: Normal density, no abnormal calcifications or inflammatory process. Spleen: Normal. Kidneys: Renal cysts. Tiny nonobstructing stones versus vascular calcifications. No radiodense ston es or obstructive uropathy. No masses seen. Adrenal glands: No masses seen. Aorta: Mildly dilated 3.8 cm Lymph nodes: Within normal limits. Soft tissues: Fatty containing inguinal hernias, left greater than right. PELVIS: Bladder: Munoz catheter decompressing bladder, not evaluated. Bowel: No obstruction or bowel wall thickening. Peritoneal cavity: No ascites, collection or mesenteric inflammatory response. Bones: Degenerative changes. Old left transverse process fractures. Reproductive organs: Within normal limits. IMPRESSION: Status post CABG. No pleural pericardial effusion or pneumonia. Limited evaluation of the gallbladder due to motion. Ultrasound could be performed if indicated. No evidence of bowel obstruction. RADIATION DOSE DELIVERED: 1,599.78mGy.cm Total DLP DATA REPOSITORY: All CT scans at this facility are submitted to the National Radiology Data Registry (NRDR) Dose Index Registry (DIR) with the [employer] ([employer]). RADIATION OPTIMIZATION: All CT scans at this facility use at least one of these dose optimization te chniques: automated exposure control; mA and/or kV adjustment per patient size (includes targeted exa ms where dose is matched to clinical indication); or iterative reconstruction.
--- NOTE | 2021-08-30 21:30 | DI.RAD_ITS ---
Exam(s) XR KNEE LT 3V AP,LAT,DRAKE EXAM: XR KNEE LT 3V AP,LAT,DRAKE CLINICAL HISTORY: fever, h/o L knee septic arthritis. TECHNIQUE: 2D digital imaging was performed. Three views. COMPARISON: CR XR KNEE LT 2V AP,LAT from 06/19/2021 CR XR KNEE LT 2V AP,LAT from 06/28/2021 CR XR KNEE LT 2V AP,LAT from 08/09/2021 FINDINGS: BONES: There has been no change in the appearance of the hardware in the distal femur and proximal t ibia. No acute fracture is present. No bony destructive lesion is seen. JOINTS: The knee is normally aligned. A joint effusion is seen, similar to prior. SOFT TISSUE: Generalized swelling. Vascular calcifications. IMPRESSION: Stable appearance of knee hardware. Soft tissue swelling. Small joint effusion. DATA REPOSITORY: RADIATION DOSE DELIVERED:
[2021-08-30 21:36] LABS: COVID-19 PCR Negative (Negative); Influenza A PCR Negative (Negative); Influenza B PCR Negative (Negative); RSV PCR Negative (Negative)
[2021-08-30 21:42] LABS: Abs Immature Grans 0.03 10^3/uL (0.0-0.06); Absolute Basophil Count 0.03 10^3/uL (0.0-0.2); Absolute Eosinophil Count 0.03 10^3/uL (0.0-0.7); Absolute Monocyte Count 0.64 10^3/uL (0.1-0.8); Basophils % 0.3; Eosinophils % 0.3; HCT 35.6 % (40.0-50.0); HGB 11.2 g/dL (13.5-17.5); Immature Grans % 0.3; Lymphocytes % 1.7; MCH 27.1 pg (27.0-33.0); MCHC 31.5 % (32.0-36.0); MCV 86 fL (80-95); MPV 9.3 fL (8.0-11.0); Monocytes % 5.6; Neutrophils % 91.8; Platelet Count 256 10^3/uL (130-400); RBC 4.14 10^6/uL (4.36-5.78); RDW 14.7 % (11.8-14.1); WBC 11.49 10^3/uL (4.4-10.8)
[2021-08-30 21:43] LABS: Absolute Neutrophil Count 10.55 10^3/uL (1.2-6.7)
[2021-08-30 21:44] LABS: Bilirubin Negative (Negative); Blood Negative (Negative); Clarity Clear (Clear); Glucose Negative (Negative); Ketones Negative (Negative); Leukocyte Esterase Negative (Negative); Nitrite Negative (Negative); pH 6.5 (5-8)
[2021-08-30 21:44] LABS: Lactate 2.5 mmol/L (0.6-1.4)
[2021-08-30 21:46] LABS: Bacteria Rare HPF (Negative); C & S Indicated? No; Casts Negative LPF (Negative); Crystals Negative HPF (Negative); Epithelial Cells Few HPF (Negative); Mucus Negative (Negative); RBC Negative HPF (0-2); WBC Negative HPF (0-5)
[2021-08-30 22:02] LABS: C-Reactive Protein 1.62 mg/dL (0.0-0.3); Magnesium 1.6 mg/dL (1.8-2.4)
[2021-08-30 22:03] LABS: ALT 416 U/L (16-63); AST 719 U/L (15-37); Albumin 3.4 g/dL (3.4-5.0); Alkaline Phosphatase 341 U/L (46-116); Anion Gap 12.9 mmol/L (3-11); BUN 36 mg/dL (7-18); Bilirubin, Total 1.2 mg/dL (0.2-1.0); CO2 25.1 mmol/L (21.0-32.0); CREATININE 1.9 mg/dL (0.70-1.30); Calcium 9.2 mg/dL (8.5-10.1); Chloride 101 mmol/L (98-107); Estimated GFR 35.32 (mL/min/1.73m2); Glucose 212 mg/dL (74-106); Potassium 4.2 mmol/L (3.5-5.1); Sodium 139 mmol/L (136-145); Troponin I < 50 ng/L (<or=60)
[2021-08-30] MEDS: Normal Saline 1,000 ML 1000 ML IV (22:03)
[2021-08-30] MEDS: Ondansetron 4 MG/2 ML VIAL IVP (22:03)
[2021-08-30] MEDS: ACETAMINOPHEN 1,000 MG/100 ML BTL 400 MG IVPB (22:04)
[2021-08-30] MEDS: Breeza Beverage 473 ML BTL PO (22:20)
[2021-08-30] MEDS: MAGNESIUM SULFATE 1 GM/100 ML BAG IVPB (23:04)
--- NOTE | 2021-08-30 23:25 | DI.VRAD_ITS ---
PROCEDURE INFORMATION: Exam: XR Left Knee Exam date and time: 08/30/2021 22:34 Age: 71 years old Clinical indication: Pain; Left; Prior surgery; Surgery date: 1-6 months; Surgery type: Knee replacement; Patient HX: Fever, h/o L knee septic arthritis TECHNIQUE: Imaging protocol: Radiologic exam of the Left knee. Views: 3 views. COMPARISON: CR XR KNEE LT 2V AP,LAT 08/09/2021 09:42 FINDINGS: Bones/joints: Left total knee arthroplasty in anatomic alignment with satisfactory appearance of the hardware. No acute fracture or subluxation. Some irregularity of the lateral tibial plateau adjacent to the hardware appears similar to previous imaging accounting for technique. Soft tissues: Generalized soft tissue swelling. Generalized swelling about the again seen. Small joint effusion similar to prior. Vasculature: Atherosclerosis. IMPRESSION: 1. No acute bony pathology. 2. Left total knee arthroplasty in anatomic alignment with satisfactory appearance of the hardware. Dictated and Authenticated by: Deborah Paris MD. Ordering:TERESITA Pa MD
--- NOTE | 2021-08-31 | DI.US_ITS ---
Exam(s) US ABDOMEN EXAM: US ABDOMEN CLINICAL HISTORY: Right upper quadrant pain infection/fever nodule t TECHNIQUE: Ultrasound abdomen performed using standard protocol. COMPARISON: No exams were available for comparison FINDINGS: LIVER: Normal size and echogenicity. No focal liver lesions are seen.. GALLBLADDER: Gallbladder appears somewhat distended and contains layering sludge. No evidence of cho lelithiasis. Minimal wall thickening but no edema. No pericholecystic fluid identified. ENGEL'S SIGN: Negative. BILIARY SYSTEM: No intrahepatic or extrahepatic biliary ductal dilation. KIDNEYS: Kidneys are symmetric in size. No evidence of renal calculi. No evidence of hydronephrosis. No renal mass identified. Right renal cyst. PANCREAS: Normal where visualized. SPLEEN: Not enlarged. ABDOMINAL AORTA AND IVC: Visualized portions normal caliber. ASCITES: None seen. IMPRESSION: Gallbladder somewhat distended and contains sludge. No definite evidence of acute cholecystitis. No biliary dilatation or stones. DATA REPOSITORY:
[2021-08-31 00:04] VITALS: BP 95/50; PULSE 88
--- NOTE | 2021-08-31 00:31 | DI.VRAD_ITS ---
PROCEDURE INFORMATION: Exam: CT Chest Without Contrast; Diagnostic Exam date and time: 08/31/2021 00:11 Age: 71 years old Clinical indication: Abdominal pain; Generalized; Prior surgery; Surgery date: 6+ months; Surgery type: Heart bypass; Patient HX: Fever, nausea, vomiting, abd pain. R/O pneumonia, cholecystitis, colitis TECHNIQUE: Imaging protocol: Diagnostic computed tomography of the chest without contrast. Radiation optimization: All CT scans at this facility use at least one of these dose optimization techniques: automated exposure control; mA and/or kV adjustment per patient size (includes targeted exams where dose is matched to clinical indication); or iterative reconstruction. Other contrast: Oral, gastroview, 25; COMPARISON: CT Abdomen^CAP WITH (Adult) 09/07/2018 10:11 FINDINGS: Thyroid: Heterogeneous enlarged thyroid gland similar to prior. Follow-up as per institutional protocol. Lungs: No airspace consolidation. Minimal dependent subsegmental atelectasis. Pleural spaces: No pneumothorax. No pleural effusion. Heart: CABG. Stable mild cardiomegaly. Curvilinear calcification or other linear density is now present in the right anterior to middle mediastinum. This is challenging to assess on these noncontrast images. This is in close proximity to the left anterior descending artery and its graft. This region is oriented along the expected position of the anterior inferior pericardium and measures about 5 x 1.5 x 1.5 cm. There is mild surrounding free fluid however no gross hemorrhage. Small anterior pericardial fluid. Lymph nodes: No enlarged lymph nodes. Vasculature: Stable mild dilation of the ascending aorta. Bones/joints: Median sternotomy wires. Median sternotomy wires. No acute fracture or subluxation. Soft tissues: Gynecomastia. IMPRESSION: 1. No pneumonia. 2. Curvilinear density in the anterior inferior pericardial region as above; unclear if this is a postoperative finding relating to the CABG. Postcontrast imaging would help to define this region if clinically indicated. 3. Incidental findings as described. PROCEDURE INFORMATION: Exam: CT Abdomen And Pelvis Without Contrast Exam date and time: 08/31/2021 00:11 Age: 71 years old Clinical indication: Abdominal pain; Generalized; Prior surgery; Surgery date: 6+ months; Surgery type: Heart bypass; Patient HX: Fever, nausea, vomiting, abd pain. R/O pneumonia, cholecystitis, colitis TECHNIQUE: Imaging protocol: Computed tomography of the abdomen and pelvis without contrast. Radiation optimization: All CT scans at this facility use at least one of these dose optimization techniques: automated exposure control; mA and/or kV adjustment per patient size (includes targeted exams where dose is matched to clinical indication); or iterative reconstruction. Other contrast: Oral, gastroview, 25; COMPARISON: CT Abdomen^CAP WITH (Adult) 09/07/2018 10:11 FINDINGS: Liver: No hepatic masses on noncontrast imaging. Gallbladder and bile ducts: Hazy density in the gallbladder lumen may represent sludge or noncalcified stones. No significant biliary dilation or radiopaque stones in the biliary tree. Gallbladder is mildly distended but poorly assessed due to motion. Could be better assessed with ultrasound or MRCP. Pancreas: No ductal dilation. No masses. Spleen: No splenomegaly or focal lesions. Adrenal glands: No mass. Kidneys and ureters: Punctate nonobstructive right nephrolithiasis. Benign renal cysts. No left nephrolithiasis. Stomach and bowel: Enteric contrast in small bowel as expected. No colitis or diverticular disease. Appendix: No evidence of appendicitis. Intraperitoneal space: No free air. No significant fluid collection. Vasculature: Mild infrarenal aortic aneurysm. 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 No evidence of rupture on noncontrast imaging. Lymph nodes: No significantly enlarged lymph nodes. Urinary bladder: Munoz catheter in a decompressed urinary bladder. Reproductive: Unremarkable as visualized. 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 Degenerative changes in the spine. Soft tissues: No suspicious lesions. IMPRESSION: 1. No infection source is seen, although consider imaging of the gallbladder with ultrasound or MRCP if clinically indicated. 2. Munoz catheter in a decompressed urinary bladder. 3. Additional findings as described. Dictated and Authenticated by: Deborah Paris MD. Ordering:TERESITA Pa MD
[2021-08-31] MEDS: HYDROmorphone 2 MG/ML VIAL 1 MG IVP (00:53)
[2021-08-31] MEDS: PIPERACILLIN/TAZO 4.5 GM in Normal Saline 100 ML IVPB ×3 (00:53→20:05)
--- NOTE | 2021-08-31 01:28 | PGE_ITS ---
Assessment and Plan Assessment and plan (1) Fever: Status: Acute Assessment and plan: 1 20 ? Diagnostics Subcategory All Activity ??:?? All Time ??:?? All Subcategories Filter Laboratory Imaging Microbiology Pathology Blood Bank Tests Cardiovascular Other Specialty DATE TYPE STATUS REF RANGE/AUTHOR Hx Today 00:31 Radiology Report Signed vrad,Reports 08/30/21 23:25 Radiology Report Signed vrad,Reports 08/30/21 21:30 Knee X-Ray ? 08/30/21 21:15 Chest/Abdomen/Pelvis CT ? 08/09/21 09:00 Knee X-Ray Signed Mary Stephenson 07/04/21 00:00 Extremity Venous Study Signed Colton Schumacher 07/04/21 00:00 Extremity Venous Study Signed Colton Schumacher 06/28/21 00:00 Knee X-Ray Signed Endy Foster 06/25/21 13:15 Anesthesia ? 06/22/21 00:[address] Signed Jaun Ramos 06/21/21 10:45 Chest X-Ray Signed Colton Schumacher 06/20/21 11:[address] Signed Endy Foster 06/19/21 08:30 Knee X-Ray Signed Colton Schumacher 06/18/21 00:00 Knee X-Ray Signed Endy Foster 06/11/21 00:00 Echocardiogram Ultrasound Signed Riri Augustin 06/10/21 11:15 Knee X-Ray Signed Mary Stephenson 05/28/21 00:00 Extremity Venous Study Signed Mary Stephenson 05/14/21 00:00 Soft Tissue Neck X-Ray Signed Endy Foster 05/14/21 00:00 Chest X-Ray Signed Endy Foster 12/06/18 09:04 Clavicle X-Ray Signed Naeem Antony 10/27/18 10:17 Clavicle X-Ray Signed Sachin,Mary 10/06/18 09:02 Clavicle X-Ray Signed Endy Foster 09/22/18 15:00 Clavicle X-Ray Signed Jaun Ramos 09/07/18 09:16 Shoulder X-Ray Signed Sachin,Mary 09/07/18 09:16 Head/Cervical Spine CT Signed Sachin,Mary 09/07/18 09:16 Femur X-Ray Signed Stephenson,Mary 09/07/18 09:16 Chest/Abdomen/Pelvis CT Signed Stephenson,Mary 01/15/18 13:22 Hand X-Ray Signed Endy Foster 01/15/18 13:22 Forearm X-Ray Signed Endy Foster 05/12/17 15:22 Renal Ultrasound Signed Naeem Antony 02/28/13 10:42 Knee X-Ray Signed ENDY FOSTER 03/20/09 00:00 DI V[facility] Exam Reports ? 03/20/09 00:00 Diagnostic Imaging Reports ? 02/19/09 00:00 DI [facility] Exam Reports ? 02/19/09 00:00 Diagnostic Imaging Reports ? Bear Gamboa Acute 71, M?1950 MRN#? [id number] REG ER,?Main ER??1ER?-1ER? 1.88m 106.9kg BSA: 2.33m? BMI: 30.3kg/m? Nausea/Vomit/Diar Acc#? [id number] Resus Status Not Ordered Hx Avail Allergies lisinopril Anaphylaxis varenicline tartrate (From Chantix) [hornet] facial/throat swelling Problems ? ONSET Calculus of bile duct with acute cholecystitis without obstruction Fever Sepsis Transaminitis Vomiting Abdominal pain Subacute osteomyelitis, left tibia and fibula Septic arthritis of knee, left CAD (coronary artery disease) Closed left clavicular fracture 09/07/18 Vital Signs Today 00:04 BP 95/50?L Pulse 88? Home Meds Not Confirmed Total 0 MME/Day Incomplete MEDICATIONS (INSTRUCTIONS) LAST TAKEN Active celecoxib 100 mgPOBIDPRNPain ??cetirizine ??10 mgPODAILYPRN clopidogrel 75 mgPODAILY ??epinephrine ??0.3 mgIMPRNPRN ferrous sulfate 325 mgPOBID#60 tabs furosemide [Lasix] 20 mgPOQAM gabapentin 100 mgPOTID#90 caps ??insulin aspart U-100 [Novolog Flexpen U-100 Insulin] ??15 - 17 unitsubcutAS DIRECTED ??L. acidophilus,casei,rhamnosus [Bio-K plus] ??1 capPODAILY#60 caps ??Lantus Solostar U-100 Insulin ??22 unitsubcutQPM levothyroxine 25 mcgPODAILY magnesium oxide 800 mgPOBID ??magnesium oxide ??800 mgPOBID#60 tabs metformin 500 mgPOBID metoprolol tartrate 75 mgPOBID ??montelukast ??10 mgPODAILY#30 tabs ??nitroglycerin [Nitrostat] ??0.4 mgsublingualPRNPRN ??oxycodone ??5 rsTVN2B PRNPRN#20 tabs 0 MME/Day pantoprazole 40 mgPOBID@729,1999#60 tabs ??rosuvastatin ??10 mgPODAILY#30 tabs ??sildenafil [Viagra] ??50 mgPODAILYPRN sucralfate 1 gPOAC & HS#120 tabs Lab Results Last Value Most Recent Hematology WBC (4.4-10.8) 11.49 10^3/uL H 08/30/21 RBC (4.36-5.78) 4.14 10^6/uL L 08/30/21 Hgb (13.5-17.5) 11.2 g/dL L 08/30/21 Hct (40.0-50.0) 35.6 % L 08/30/21 MCV (80-95) 86 fL 08/30/21 MCH (27.0-33.0) 27.1 pg 08/30/21 MCHC (32.0-36.0) 31.5 % L??? 08/30/21 RDW (11.8-14.1) 14.7 % H 08/30/21 Plt Count (130-400) 256 10^3/uL 08/30/21 MPV (8.0-11.0) 9.3 fL 08/30/21 Immature Gran % 0.3 08/30/21 Neutrophils % 91.8 08/30/21 Lymphocytes % 1.7 08/30/21 Monocytes % 5.6 08/30/21 Eosinophils % 0.3 08/30/21 Basophils % 0.3 08/30/21 Nucleated RBC % (0.0-0.3) 0.0 % 08/30/21 Absolute Neutrophils (1.2-6.7) 10.55 10^3/uL H 08/30/21 Absolute Lymphocytes (1.2-3.4) 0.20 10^3/uL L 08/30/21 Absolute Monocytes (0.1-0.8) 0.64 10^3/uL 08/30/21 Absolute Eosinophils (0.0-0.7) 0.03 10^3/uL 08/30/21 Absolute Basophils (0.0-0.2) 0.03 10^3/uL 08/30/21 RBC Morphology See Below 07/04/21 Polychromasia Present 07/04/21 Hypochromasia 1+ 06/26/21 Anisocytosis 1+ 06/22/21 Microcytosis 1+ 07/04/21 Macrocytosis 1+ 06/22/21 ESR (0-20) 29 mm/hr H 07/04/21 Blood Gas VBG pH (7.31-7.41) 7.45 H 06/10/21 VBG pCO2 (41-51) 38 mmHg L 06/10/21 VBG pO2 26 mmHg 06/10/21 VBG HCO3 (23-28) 27 mmol/L 06/10/21 VBG Total CO2 (24-29) 25 mmol/L 06/10/21 VBG O2 Saturation 45 % 06/10/21 VBG Base Excess (-2-3) 3 mmol/L 06/10/21 VBG Lactate (0.6-1.4) 2.5 mmol/L H* 08/30/21 Chemistry Sodium (136-145) 139 mmol/L 08/30/21 Potassium (3.5-5.1) 4.2 mmol/L 08/30/21 Chloride (98-107) 101 mmol/L 08/30/21 Carbon Dioxide (21.0-32.0) 25.1 mmol/L 08/30/21 Anion Gap (3-11) 12.9 mmol/L H 08/30/21 BUN (7-18) 36 mg/dL H 08/30/21 Estimated GFR (mL/min/1.73m2) 47.74? 11/09/12 Creatinine (0.70-1.30) 1.9 mg/dL H 08/30/21 Estimated GFR/1.73 m2 (mL/min/1.73m2) 35.32 08/30/21 Glucose (74-106) 212 mg/dL H 08/30/21 Hemoglobin A1c (<5.7) 8.9 % H 06/20/21 Conjugated Bilirubin (0.00-0.20) 0.09 mg/dL 05/22/10 Uric Acid (3.5-7.2) 6.5 mg/dL 05/22/21 Calcium (8.5-10.1) 9.2 mg/dL 08/30/21 Magnesium (1.8-2.4) 1.6 mg/dL L 08/30/21 Total Bilirubin (0.2-1.0) 1.2 mg/dL H 08/30/21 AST (15-37) 719 U/L H 08/30/21 ALT (16-63) 416 U/L H 08/30/21 Alkaline Phosphatase (46-116) 341 U/L H 08/30/21 Troponin I (<or=60) < 50 ng/L 08/30/21 Cholesterol (50-200) 216 mg/dL H 11/28/14 C-Reactive Protein (0.0-0.3) 1.62 mg/dL H 08/30/21 C-React Prot High Sens (See Note) 11.57 mg/L 08/07/21 Total Protein (6.4-8.2) 8.0 g/dL 08/30/21 Albumin (3.4-5.0) 3.4 g/dL 08/30/21 LDL Cholesterol Direct (<100) 119 mg/dL H 04/06/18 Triglycerides (<150) 128 mg/dL 04/09/21 Total Cholesterol (<200) 205 mg/dL H 04/09/21 LDL Cholesterol, Calc (<100) 122 mg/dL H 04/09/21 HDL Cholesterol (40-60) 58 mg/dL 04/09/21 PSA Screen (0-4.5) 0.5 ng/mL 06/19/15 Tryptase (<11.5) 57.5 ng/mL H 05/15/21 Procalcitonin 0.2 ng/mL 07/04/21 TSH (0.36-3.74) 2.29 uIU/mL 05/07/21 Latex Allergen IgE Ab <0.35 kU/L 05/15/21 Urines Urine Color (Yellow) Yellow 08/30/21 Urine Clarity (Clear) Clear 08/30/21 Urine pH (5-8) 6.5 08/30/21 Ur Specific [place] (1.005-1.025) 1.020 08/30/21 Urine Protein (Negative) 100 mg/dL H 08/30/21 Urine Ketones (Negative) Negative mg/dL 08/30/21 Urine Blood (Negative) Negative 08/30/21 Urine Nitrite (Negative) Negative 08/30/21 Urine Bilirubin (Negative) Negative 08/30/21 Urine Urobilinogen (Up TO 0.2) 1.0 EU/dL H 08/30/21 Ur Leukocyte Esterase (Negative) Negative 08/30/21 Urine RBC (0-2) Negative HPF 08/30/21 Urine WBC (0-5) Negative HPF 08/30/21 Ur Epithelial Cells (Negative) Few HPF 08/30/21 Urine Crystals (Negative) Negative HPF 08/30/21 Urine Bacteria (Negative) Rare HPF 08/30/21 Urine Casts (Negative) Negative LPF 08/30/21 Urine Mucus (Negative) Negative 08/30/21 Ur Culture Indicated? No 08/30/21 Urine Glucose (Negative) Negative mg/dL 08/30/21 Other Body Source Fluid Source L Knee 06/10/21 Fluid Color Yellow 06/10/21 Fluid Clarity Purulent 06/10/21 Fluid WBC (0) 522023 uL 06/10/21 Fld Polynuclear WBCs % 95 % 06/10/21 Fluid Mononuclear Cell 5 % 06/10/21 Fluid Crystals See Comment? 06/10/21 Fluid Crystal Source L Knee 06/10/21 Toxicology Vancomycin Trough (10.0-20.0) 17.2 ug/mL 06/14/21 Immunology IgE (<158) 47 IU/mL 05/15/21 Func C1 Esterase Inhib >90 %of norm 05/15/21 C1 Esterase Inhib Ag (19 - 37) 46 mg/dL H 05/15/21 Serology Nasopharyn COVID-19 PCR Not Applicable 04/24/20 COVID-19 Source Not Applicable 08/30/21 SARS-CoV-2 (PCR) (Negative) Negative? 08/30/21 Influenza Type A (PCR) (Negative) Negative 08/30/21 Influenza Type B (PCR) (Negative) Negative 08/30/21 RSV (PCR) (Negative) Negative 08/30/21 Miscellaneous Path Cons Comment SEE COMMENT? 06/10/21 Ref Test Perform Site [facility] lab? 02/09/21 Add-On Test Request DONE 06/10/21 Laboratory Reports Laboratory Spec Inquiry Report 11/15/13 Laboratory Summaries 05/11/12 Microbiology Reports Micro Blood Specimen 08/30/21 Micro Wound & Tissue Spec 06/18/21 Micro Respiratory Spec 06/10/21 Micro Body Fluid Spec 06/10/21 Micro Specimen Inquiry Report 02/19/09 Blood Bank Tests Patient ABO/Rh A Positive 07/04/21 Antibody Screen NEGATIVE 07/04/21 Crossmatch See Detail 07/04/21 My Widget Radiology Report Today Hgb (13.5-17.5) 11.2 g/dL L 08/30/21 Body Mass Index (BMI) 35.4 06/25/21 Temperature 39.4 C H 08/30/21 Echocardiogram Ultrasound 06/11/21 Surgical Photos 06/10/21 Operative Report 06/25/21 Diagnostics Reports Bear Gamboa??71??M??1950 ? Allergy/Adv: lisinopril, varenicline tartrate, [hornet] (More??) Close Radiology Report (Signed) vrad,Reports - 08/31/21 Radiology Report (Signed) vrad,Reports - 08/30/21 Knee X-Ray 08/30/21 Chest/Abdomen/Pelvis CT 08/30/21 Knee X-Ray (Signed) Mary Stephenson - 08/09/21 Extremity Venous Study (Signed) Colton Schumacher - 07/04/21 Extremity Venous Study (Signed) Colton Schumacher - 07/04/21 Knee X-Ray (Signed) Endy Foster - 06/28/21 Anesthesia 06/25/[address] (Signed) Jaun Raoms - 06/22/21 Chest X-Ray (Signed) Colton Schumacher - 06/21/[address] (Signed) Endy Foster - 06/20/21 Knee X-Ray (Signed) Colton Schumacher - 06/19/21 Knee X-Ray (Signed) Endy Foster - 06/18/21 Echocardiogram Ultrasound (Signed) Charli,Riri - 06/11/21 Knee X-Ray (Signed) Mary Stephenson - 06/10/21 Extremity Venous Study (Signed) Mary Stephenson - 05/28/21 Soft Tissue Neck X-Ray (Signed) Endy Foster - 05/14/21 Chest X-Ray (Signed) Endy Foster - 05/14/21 Clavicle X-Ray (Signed) Naeem Antony - 12/06/18 Clavicle X-Ray (Signed) Mary Stephenson - 10/27/18 Clavicle X-Ray (Signed) Endy Foster - 10/06/18 Clavicle X-Ray (Signed) Jaun Ramos - 09/22/18 Shoulder X-Ray (Signed) Mary Stephenson - 09/07/18 Head/Cervical Spine CT (Signed) Mary Stephenson - 09/07/18 Femur X-Ray (Signed) Mary Stephenson - 09/07/18 Chest/Abdomen/Pelvis CT (Signed) Mary Stephenson - 09/07/18 Hand X-Ray (Signed) Endy Foster - 01/15/18 Forearm X-Ray (Signed) Endy Foster - 01/15/18 Renal Ultrasound (Signed) Naeem Antony - 05/12/17 Knee X-Ray (Signed) ENDY FOSTER - 02/28/13 DI VRad Exam Reports 03/20/09 Diagnostic Imaging Reports 03/20/09 DI VRad Exam Reports 02/19/09 Diagnostic Imaging Reports 02/19/09 Launch?Image Patient Name: Bear Gamboa Unit #: [id number] Loc: ICU ? Ordering Provider:Nav Hernandez M.D. Status: ADM IN ? Primary Care Provider: Antonella Lucas Date of Exam: 06/11/21 Sex: M ? Admission Date: 06/10/21? : 1950 ? Age: 70 ? APPROVED REPORT EXAM: Comprehensive 2D, Doppler, and color-flow Echocardiogram Patient Location: In-Patient Room/Bed:? [id number] Network Director: Paula Jones RDCS (AE) Indications: Gram positive bacteremia Other Information Study Quality: Adequate. Technically limited study due to inability to position patient, body habitus. Conclusion Normal left ventricular wall thickness and chamber size.? Estimated ejection fraction is 55 to 60%.? Wall motion is normal Normal right ventricular size and systolic function Both atria are normal in size Aortic valve is trileaflet and sclerotic.? There is no aortic stenosis or regurgitation Mild mitral annular calcification.? Mild mitral regurgitation Normal tricuspid valve with trace regurgitation.? RVSP could not be estimated Borderline dilated ascending aorta Wall motion Left Ventricle The left ventricle is normal size. The left ventricular systolic function is normal. The left ventricular ejection fraction is within the normal range. There is normal left ventricular wall thickness. There is normal LV segmental wall motion. There is no ventricular septal defect visualized. LVEF is 57%. Right Ventricle The right ventricle is normal size. The right ventricular systolic function is normal. Atria The left atrium size is normal. The right atrium size is normal. The interatrial septum is intact with no evidence for an atrial septal defect. Aortic Valve The Aortic valve is sclerotic. Aortic valve is trileaflet. There is no aortic valvular stenosis. No aortic regurgitation is present. Mitral Valve Mild mitral annular calcification. No evidence of mitral valve stenosis. Mild mitral regurgitation. Tricuspid Valve The tricuspid valve is normal in structure. There is no tricuspid valve stenosis. Trace tricuspid regurgitation. Unable to assess PA pressure. Pulmonic Valve The pulmonary valve is normal in structure. There is no pulmonic valvular stenosis. There is no pulmonic valvular regurgitation. Great Vessels The aortic root is normal in size. The ascending aorta is borderline dilated. Aortic arch is not well visualized. IVC is normal in size and collapses >50% with inspiration. Pericardium There is no pericardial effusion. 2D Dimensions IVSD d PLAX? 1.08 cm M: 0.6-1.2 LV Vol A2C d MOD? 94.4 mL LVPW d PLAX? 1.09 cm M: 0.6 - 1.2 LV Vol A4C d MOD? 108.0 mL LVID d PLAX? 4.94 cm M: 4.2 - 5.8 LA vol/ BSA A2C s A-L 29.3 mL/m2 LVDs? 3.35 cm M: 2.5 - 4.0 LA vol/ BSA A4C s A-L 43.5 mL/m2 Ao Root d? 3.15 cm M: 3.1 - 3.7 LA Vol/ BSA Biplane s A-L? 37.7 mL/m2 RA Area A4C 19.49 cm2 LA Area A4C s MOD? 29.12 cm2 RA Vol/ BSA A4C s A-L? 23.1 mL/m2 LA Area A2C s MOD? 22.62 cm2 Ao Asc Diam d? 3.53 cm M: 2.6 - 3.4 LV EF A4C MOD? 56.3 % LV EF Teichholz? 58.9 % LV EF A2C MOD? 57.5 % LVEF (Nguyen's) 57.79 % M: 52 - 72 LV EF Biplane MOD? 57.8 % LV Volume 74.39 mL M: 62 - 150 SV 60.31 mL LV Volume Index 31.65 mL/m2 M: 34 - 74 SV Index 25.67 mL/m2 LV Vol Biplane MOD? 104.4 mL FS 31.25 % LV Diastology MV E' medial 0.075 (>0.07 m/s) E/A? Ratio? 1.3 LV E/e MED 14.95 (<14) MV E Vmax? 1.12 (0.4-1.3 m/s) MV E' lateral 0.133 (>0.1 m/s) MV A Vmax? 0.85 (0.4-1.3 m/s) LV E/e LAT 8.40 (<14) MV E/A Ratio? 1.28 MV E/E' medial? 14.96 MV E/E' lateral 8.42 Aortic Valve LVOT Area 3.40 cm2 AoV Area Vmax 2.28 cm2 LVOT Vmax? 1.15 m/s AoV Area/ BSA (Vmax) 0.97 cm2/m2 LVOT Mean Flavio. 0.72 m/s STEFANI Mean Flavio. 1.95 cm2 LVOT Peak Grad? 5.3 mmHg STEFANI Mean Flavio. Index 0.83 cm2/m2 LVOT Mean Grad? 2.5 mmHg LVOT VTI 0.229 m LVOT Diam s? 2.05 cm AoV Vmax 1.72 m/s Velocity Ratio? 0.66 AoV Mean Flavio. 1.26 m/s AoV Peak Grad 11.8 mmHg LVOT SV? 78.10 mL AoV Mean Grad 7.0 mmHg AoV VTI 0.310 m AoV Area VTI 2.52 cm2 AoV Area/ BSA (VTI) 1.07 cm/m2 Mitral Valve MV DT? 182 (160-240 msec) MV PHT 53 msec MV Area PHT? 4.16 cm2 MV VTI? 0.220 m MV Area VTI? 3.55 (4.0-6.0 cm2) Pulmonary Valve PV Vmax? 1.11 (0.5-1.5 m/s) RVOT Peak Gr. 3.66 mmHg PV Peak Grad? 4.9 mmHg RVOT Mean Gr. 2.05 mmHg PV Mean Grad? 2.9 mmHg RVOT VTI 0.194 m PV VTI? 0.229 m RVOT Vmax? 0.96 m/s Ordered By:? Nav Albarado M.D. CC: ? Dictated By: Riri Augustin M.D. ? 06/11/21 1252 ? <Electronically signed by Riri Augustin M.D. in OV> ? 06/11/21 1304 Transcribed By: Riri Augustin MD?? ? This is privileged, confidential information intended only for the provider named. Any use or distribution by any person other than this provider is strictly prohibited. If you receive this report in error, please notify us immediately at [phone] and return the original report to us at the address above. Thank-you. (2) Sepsis: Status: Acute Assessment and plan: The patient presents to the ER with acute abdominal pain and elevated lab work that is consistent with acute cholecystitis. He does not have any dilated ducts.mm (3) Transaminitis: Status: Acute (4) Vomiting: Status: Acute (5) Abdominal pain: Status: Acute Assessment and plan: COMPARISON: CR XR KNEE LT 2V AP,LAT 08/09/2021 09:42 FINDINGS: Bones/joints: Left total knee arthroplasty in anatomic alignment with satisfactory appearance of the hardware. No acute fracture or subluxation. Some irregularity of the lateral tibial plateau adjacent to the hardware appears similar to previous imaging accounting for technique. Soft tissues: Generalized soft tissue swelling. Generalized swelling about the again seen. Small joint effusion similar to prior. Vasculature: Atherosclerosis. IMPRESSION: 1. No acute bony pathology. 2. Left total knee arthroplasty in anatomic alignment with satisfactory appearance of the hardware. COMPARISON: CR XR KNEE LT 2V AP,LAT 08/09/2021 09:42 FINDINGS: Bones/joints: Left total knee arthroplasty in anatomic alignment with satisfactory appearance of the hardware. No acute fracture or subluxation. Some irregularity of the lateral tibial plateau adjacent to the hardware appears similar to previous imaging accounting for technique. Soft tissues: Generalized soft tissue swelling. Generalized swelling about the again seen. Small joint effusion similar to prior. Vasculature: Atherosclerosis. IMPRESSION: 1. No acute bony pathology. 2. Left total knee arthroplasty in anatomic alignment with satisfactory appearance of the hardware. labs as noted Patient appears to have an acute cholecystitis. Given his history of bleeding infections, high fever and white count. I do feel he should be admitted for antibiotics. And probably ultrasound on Thursday. He will need lab Brittani at some point. According to his med list he is still on Plavix- will hold this. (6) Septic arthritis of knee, left: Status: Acute (7) CAD (coronary artery disease): Status: Chronic (8) CKD (chronic kidney disease): (9) Coronary artery disease: (10) Diabetes mellitus type 2 in obese: (11) Hypercholesterolemia: (12) Hypertension: (13) Hypothyroidism: (14) Calculus of bile duct with acute cholecystitis without obstruction: Status: Acute Objective Last Vital Signs Temp 39.4 C H 08/30/21 20:35 Pulse 88 08/31/21 00:04 Resp 26 H 08/30/21 23:02 BP 95/50 L 08/31/21 00:04 Pulse Ox 90 L 08/30/21 23:02 Laboratory Results - last 24 hr 08/30/21 08/30/21 08/30/21 20:55 20:55 20:55 WBC RBC Hgb Hct MCV MCH MCHC RDW Plt Count MPV Immature Gran % Neutrophils % Lymphocytes % Monocytes % Eosinophils % Basophils % Nucleated RBC % Absolute Neutrophils Absolute Lymphocytes Absolute Monocytes Absolute Eosinophils Absolute Basophils VBG Lactate 2.5 H* Sodium Potassium Chloride Carbon Dioxide Anion Gap BUN Creatinine Estimated GFR/1.73 m2 Glucose Calcium Magnesium 1.6 L Total Bilirubin AST ALT Alkaline Phosphatase Troponin I C-Reactive Protein 1.62 H Total Protein Albumin Urine Color Urine Clarity Urine pH Ur Specific [place] Urine Protein Urine Ketones Urine Blood Urine Nitrite Urine Bilirubin Urine Urobilinogen Ur Leukocyte Esterase Urine RBC Urine WBC Ur Epithelial Cells Urine Crystals Urine Bacteria Urine Casts Urine Mucus Ur Culture Indicated? Urine Glucose COVID-19 Source Not Applicable SARS-CoV-2 (PCR) Negative Influenza Type A (PCR) Negative Influenza Type B (PCR) Negative RSV (PCR) Negative 08/30/21 08/30/21 08/30/21 20:55 20:55 21:25 WBC 11.49 H RBC 4.14 L Hgb 11.2 L Hct 35.6 L MCV 86 MCH 27.1 MCHC 31.5 L D RDW 14.7 H Plt Count 256 MPV 9.3 Immature Gran % 0.3 Neutrophils % 91.8 Lymphocytes % 1.7 Monocytes % 5.6 Eosinophils % 0.3 Basophils % 0.3 Nucleated RBC % 0.0 Absolute Neutrophils 10.55 H Absolute Lymphocytes 0.20 L Absolute Monocytes 0.64 Absolute Eosinophils 0.03 Absolute Basophils 0.03 VBG Lactate Sodium 139 Potassium 4.2 Chloride 101 Carbon Dioxide 25.1 Anion Gap 12.9 H BUN 36 H Creatinine 1.9 H Estimated GFR/1.73 m2 35.32 Glucose 212 H Calcium 9.2 Magnesium Total Bilirubin 1.2 H AST 719 H ALT 416 H Alkaline Phosphatase 341 H Troponin I < 50 C-Reactive Protein Total Protein 8.0 Albumin 3.4 Urine Color Yellow Urine Clarity Clear Urine pH 6.5 Ur Specific [place] 1.020 Urine Protein 100 H Urine Ketones Negative Urine Blood Negative Urine Nitrite Negative Urine Bilirubin Negative Urine Urobilinogen 1.0 H Ur Leukocyte Esterase Negative Urine RBC Negative Urine WBC Negative Ur Epithelial Cells Few Urine Crystals Negative Urine Bacteria Rare Urine Casts Negative Urine Mucus Negative Ur Culture Indicated? No Urine Glucose Negative COVID-19 Source SARS-CoV-2 (PCR) Influenza Type A (PCR) Influenza Type B (PCR) RSV (PCR)
[2021-08-31 02:28] VITALS: BP 87/52; PULSE 98; RESP 19; TEMP 37.5; O2SAT 97
[2021-08-31 02:38] LABS: ALT 410 U/L (16-63); AST 575 U/L (15-37); Alkaline Phosphatase 284 U/L (46-116); Anion Gap 11.3 mmol/L (3-11); BUN 36 mg/dL (7-18); Bilirubin, Total 0.9 mg/dL (0.2-1.0); CO2 24.7 mmol/L (21.0-32.0); Calcium 8.5 mg/dL (8.5-10.1); Chloride 102 mmol/L (98-107); Estimated GFR 33.29 (mL/min/1.73m2); Glucose 145 mg/dL (74-106); Lipase 134 U/L (73-393); Potassium 3.5 mmol/L (3.5-5.1); Sodium 138 mmol/L (136-145)
[2021-08-31 02:59] VITALS: BP 100/60; PULSE 98; RESP 19; TEMP 37.7; O2SAT 97
[2021-08-31] MEDS: Lactated Ringers 1,000 ML 120 ML IV (04:15)
[2021-08-31 06:55] LABS: Platelet Count 199 10^3/uL (130-400)
[2021-08-31 07:25] VITALS: BP 105/66; PULSE 76; RESP 18; TEMP 37.1; O2SAT 96
[2021-08-31] MEDS: Enoxaparin 40 MG/0.4 ML SYR SC (09:23)
[2021-08-31] MEDS: metFORMIN 500 MG TAB PO ×2 (09:23→16:14)
[2021-08-31] MEDS: Metoprolol 25 MG TAB 50 MG PO ×2 (09:23→20:05)
--- NOTE | 2021-08-31 10:15 | PDOC.CMIN ---
- If Service Date Differs Date of service: 08/31/21 Time of Service: 10:15 Care Management Initial Assess REASON FOR HOSPITALIZATION:: acute adams w/stones PAST MEDICAL HISTORY/PAST SURGICAL HISTORY:: All Active Problems. Fever (Acute). Sepsis (Acute). Transaminitis (Acute). Vomiting (Acute). Abdominal pain (Acute). Septic arthritis of knee, left (Acute). CAD (coronary artery disease) (Chronic). Closed left clavicular fracture (Acute 09/07/18). Medical History. Acute GI bleeding. CKD (chronic kidney disease). Coronary artery disease. Diabetes mellitus type 2 in obese. Heart attack. Hypercholesterolemia. Hypertension. Hypothyroidism. Septic arthritis of knee, left. Surgical History. H/O arthroscopy of left knee. History of foot surgery. History of heart bypass surgery. History of tonsillectomy PREVIOUS FUNCTIONAL STATUS/SOCIAL/FAMILY SUPPORTS:: Bear lives in a single family home in [place], [place] with his obinna Pichardo. He has 3 children from a previous marriage all of whom are close by and offer support. 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 He still has a large woodworking shop which he uses. Bear is independent at baseline and receives services due to a recent prolonged hospitalization. CURRENT FUNCTIONAL STATUS:: Bear was lying in bed when CM met with him. He stated that he is feeling better today, and is very hungry. Per report, his diet is being advanced as tolerated. His s/o was in the room visiting, and is concerned that he may return home before having a regular diet. CM stated that he will likely have diet recommendations prior to discharge, and his diet will be advanced while inpatient to determine if he can tolerate food. CM informed his RN of the concerns that were shared. CM will continue to follow. ADVANCE DIRECTIVES:: None on file. Copy of blank [place] AD provided on previous admission, CM will follow up. Has patient been provided with info about the portal/API?: Yes Did the patient sign up for the portal?: No CODE STATUS:: Full Code INSURANCE COVERAGE / FINANCIAL ISSUES:: [facility]/ [facility] CURRENT HOME/COMMUNITY SERVICES/EQUIPMENT:: [facility]ART RN, [employer]sabel PRIMARY CARE PHYSICIAN:: Antonella Lucas POTENTIAL DISCHARGE NEEDS:: Evaluation for further needs, follow up appointments. PATIENT/FAMILY EDUCATION NEEDS:: Review discharge instructions and limitations, discussion of self care needs including ask me three. ANTICIPATED BARRIERS TO DISCHARGE:: None identified. TRANSPORTATION:: Via private vehicle with family. PLAN:: Anticipate Bear will return home with a resumption of HH RN when medically cleared. He will follow up with his PCP and discharge plan of care. CM dilia continue to follow.
--- NOTE | 2021-08-31 10:21 | DI.VRAD_ITS ---
PROCEDURE INFORMATION: Exam: US Abdomen Complete Exam date and time: 08/31/2021 8:47 AM Age: 71 years old Clinical indication: Other: F/u CT, ruq pain infection, fever TECHNIQUE: Imaging protocol: Real-time ultrasound of the abdomen with image documentation. Complete exam. COMPARISON: CT CHEST/ABD/PEL WO 08/31/2021 12:11 AM FINDINGS: Liver: Mildly enlarged, measuring 17.3 cm sagittal. Parenchymal echogenicity and echotexture are within normal limits. No masses. The main portal vein is patent, with appropriate hepatopedal flow. Gallbladder: The gallbladder is distended and contains layering sludge. No shadowing calculi are identified. The gallbladder wall is mildly thickened, measuring up to 4 mm. No pericholecystic fluid is seen. The performing biomedical engineering aide reports that the patient did not experience focal tenderness during scanning over the gallbladder (no sonographic Watson's sign). Biliary ducts: No intrahepatic or extrahepatic biliary ductal dilatation. The common bile duct is top normal in size, measuring up to 7 mm. Pancreas: The body and tail of the pancreas are grossly unremarkable. The tail is obscured by artifact from overlying bowel gas. Right kidney: Normal in size, measuring 11.5 cm sagittal x 5.6 cm AP x 7.7 cm TRV. There is no hydronephrosis. No shadowing calculi are identified. There is an exophytic cortical cyst in the mid kidney which measures up to 3.8 cm. Left kidney: Normal in size, measuring 12.4 cm sagittal x 5.3 cm AP x 4.8 cm TRV. No hydronephrosis, calculi, or masses. Spleen: The spleen is normal in size, measuring 11.8 cm in maximum diameter. The parenchyma is homogeneous in echotexture. No masses. Aorta: Patent and normal in caliber as visualized. Inferior vena cava: Patent and normal in caliber as visualized. IMPRESSION: 1. Distended gallbladder with mild mural thickening which contains sludge, though no definite shadowing calculi. In the absence of pericholecystic fluid and a sonographic Watson's sign, acute cholecystitis is felt to be unlikely. Consider further evaluation with HIDA scan or MRCP as clinically warranted. 2. Mild hepatomegaly. 3. Incidental simple right renal cyst. Dictated and Authenticated by: eNda Jean MD. Ordering:MARCELINO Ibarra MD
--- NOTE | 2021-08-31 10:54 | HPE_ITS ---
Date of service: 08/31/21 Time of Service: 10:19 Assessment and Plan Assessment and plan (1) Cholangitis: Status: Acute Assessment and plan: 71-year-old man with likely ascending cholangitis as the explanation for his attack of pain and symptoms. He is hemodynamically stable and I would suspect that he has passed a stone based off of being symptom-free and feeling much better. The shaking chills and severity of pain coupled with elevated transaminases and an increasing bilirubin all support this diagnosis. Ultrasound did not show a impressively dilated duct nor did it show large gallstones however this remains the most likely etiology for his presentation. What is most important is that it seems like everything is resolving clinically. He has no more abdominal pain. The shaking and chills are gone. He is not nauseated and he is hoping to eat and go home. We will continue to hold his Plavix in the event that his gallbladder needs to be removed and I will have him continue holding it until he is cleared in the outpatient setting to restart it. Overall plan: Clear liquid diet and advance as tolerated He does not need to be on DVT prophylaxis since he is on Plavix which will be in his system for another couple of days Renal?dosing of antibiotics though if the obstructing stone has now been passed, he should not need any more antibiotics. Will get lab work in the morning and as long as his white count has normalized and his LFTs continue to normalize he can be discharged home with close follow- up next week. History of Present Illness Narrative: The patient is a 71-year-old man who was in his usual state of health when he started feeling poorly and felt nauseated and had abdominal pain. The abdominal pain was all over and it lasted for a number of hours. Because it worsened and because he had associated severe chills he came to the hospital. He had never had pain like this before. Pain was severe and constant. Today at the bedside all of the pain has completely resolved and he feels back to his normal self. The shaking chills are also gone. The only other thing he has been having issues with recently is his knee replacement. He reports she has a chronic infection there and he was recently on a PICC line and IV infusion antibiotics. A couple of weeks ago he got lugo sitioned over to oral antibiotics and it sounds like he takes cephalexin 4 times daily currently. His bowel habits are otherwise unchanged and he has no other unusual symptoms and has not had any recent sick contacts. No prior intra-abdominal surgery. He has had open heart surgery. He also had c ardiac stents put in a long time ago. He thinks that he has an allergy to aspirin so he does not take aspirin and he is on full?dose of Plavix instead. He had an ultrasound done a few hours ago but he self?reports that the pain was already gone by the time the ultrasound was done. There is no Watson sign. There is no pericholecystic fluid or significant wall thickening. Sludge was seen. The common bile duct was 7 mm and not dilated. On presentation he had a small leukocytosis and also elevations in his transaminases, alk phos and a small elevation in bilirubin. He has chronic kidney disease and has a creatinine that hovers around 2.0 as well as a chronically elevated BUN. He had a Munoz catheter placed in the ER and has been making excellent urine output. PFSH All Active Problems (Updated 08/31/21 @ 14:25 by Arnie Wynne MD) Cholangitis (Acute) Calculus of bile duct with acute cholecystitis without obstruction (Acute) Fever (Acute) Sepsis (Acute) Transaminitis (Acute) Vomiting (Acute) Abdominal pain (Acute) Septic arthritis of knee, left (Acute) CAD (coronary artery disease) (Chronic) Closed left clavicular fracture (Acute 09/07/18) Medical History (Updated 08/31/21 @ 14:25 by Arnie Wynne MD) Acute GI bleeding CKD (chronic kidney disease) Coronary artery disease Diabetes mellitus type 2 in obese Heart attack Hypercholesterolemia Hypertension Hypothyroidism Septic arthritis of knee, left Surgical History (Updated 08/30/21 @ 22:16 by Ember Rolon DO) H/O arthroscopy of left knee History of foot surgery History of heart bypass surgery History of tonsillectomy Social History Smoking/Tobacco Use Status: Former Tobacco Use Quit Date: 12/22/18 Tobacco: How many years used: 50 Smoking risk assessment performed?: Yes Alcohol Intake: current Alcohol Intake frequency: 3 or more drinks per day Alcohol type: beer Substance use type: does not use Do you feel safe at home: Yes Do you feel safe in your relationship?: Yes Meds Allergies and Home Medications Allergies Allergy/AdvReac Type Severity Reaction Status Date / Time lisinopril Allergy Severe Anaphylaxis Unverified 08/09/21 09:02 varenicline tartrate Allergy Unknown Unverified 08/09/21 09:02 [From Chantix] hornet Allergy facial/throat Uncoded 08/09/21 09:02 swelling Home Medications Medication Instructions Recorded Confirmed Type Nitrostat 0.4 mg sublingual tablet 0.4 mg sublingual PRN PRN 03/01/13 08/31/21 History (nitroglycerin) epinephrine 0.3 mg/0.3 mL 0.3 mg IM PRN PRN 03/01/13 08/31/21 History injection, auto-injector furosemide 20 mg tablet (Lasix) 20 mg PO QAM 09/07/18 08/30/21 History insulin glargine 100 unit/mL (3 22 unit subcut QPM 04/27/20 08/31/21 History mL) subcutaneous pen (Lantus Solostar U-100 Insulin) montelukast 10 mg tablet 10 mg PO DAILY #30 tabs 05/17/21 08/31/21 Rx rosuvastatin 10 mg tablet 10 mg PO DAILY #30 tabs 05/17/21 08/31/21 Rx celecoxib 100 mg capsule 100 mg PO BID PRN Pain 06/10/21 08/30/21 History cetirizine 10 mg tablet 10 mg PO DAILY PRN 06/10/21 08/31/21 History clopidogrel 75 mg tablet 75 mg PO DAILY 06/10/21 08/30/21 History insulin aspart U-100 100 unit/mL 15 - 17 unit subcut DIRECTED 06/10/21 08/31/21 History (3 mL) subcutaneous pen (Novolog Flexpen U-100 Insulin aspart) levothyroxine 25 mcg tablet 25 mcg PO DAILY 06/10/21 08/30/21 History magnesium oxide 800 mg PO BID 06/10/21 08/30/21 History metformin 500 mg tablet 500 mg PO BID 06/23/21 08/30/21 History metoprolol tartrate 75 mg tablet 50 mg PO BID 07/08/21 08/31/21 History L. acidophilus,casei,rhamnosus 50 1 cap PO DAILY #60 caps 07/11/21 08/31/21 Rx billion cell capsule,delayed release (Bio-K plus) ferrous sulfate 325 mg (65 mg 325 mg PO BID #60 tabs 07/11/21 08/30/21 Rx iron) tablet gabapentin 100 mg capsule 100 mg PO TID #90 caps 07/11/21 08/30/21 Rx magnesium oxide 400 mg (241.3 mg 800 mg PO BID #60 tabs 07/11/21 08/31/21 Rx magnesium) tablet oxycodone 5 mg tablet 5 mg PO Q6H PRN PRN #20 tabs 07/11/21 08/31/21 Rx pantoprazole 40 mg tablet,delayed 40 mg PO BID@0730,1999 #60 tabs 07/11/21 08/30/21 Rx release sucralfate 1 gram tablet 1 g PO AC & HS #120 tabs 07/11/21 08/30/21 Rx Exam Narrative Exam Narrative: General: Nontoxic, comfortable and interactive Neuro: Alert and oriented x3 Psych: Appropriate mood and affect, good insight and understanding into his condition Abdomen: Soft, nondistended and nontender. Extremities: Free range of motion x4, nonedematous Results Labs Result diagrams: 08/31/21 06:45 08/31/21 02:20 Labs: Laboratory Results - last 24 hr 08/30/21 08/30/21 08/30/21 20:55 20:55 20:55 WBC RBC Hgb Hct MCV MCH MCHC RDW Plt Count MPV Immature Gran % Neutrophils % Lymphocytes % Monocytes % Eosinophils % Basophils % Nucleated RBC % Absolute Neutrophils Absolute Lymphocytes Absolute Monocytes Absolute Eosinophils Absolute Basophils VBG Lactate 2.5 H* Sodium Potassium Chloride Carbon Dioxide Anion Gap BUN Creatinine Estimated GFR/1.73 m2 Glucose Calcium Magnesium 1.6 L Total Bilirubin AST ALT Alkaline Phosphatase Troponin I C-Reactive Protein 1.62 H Total Protein Albumin Lipase Procalcitonin Urine Color Urine Clarity Urine pH Ur Specific [place] Urine Protein Urine Ketones Urine Blood Urine Nitrite Urine Bilirubin Urine Urobilinogen Ur Leukocyte Esterase Urine RBC Urine WBC Ur Epithelial Cells Urine Crystals Urine Bacteria Urine Casts Urine Mucus Ur Culture Indicated? Urine Glucose COVID-19 Source Not Applicable SARS-CoV-2 (PCR) Negative Influenza Type A (PCR) Negative Influenza Type B (PCR) Negative RSV (PCR) Negative 08/30/21 08/30/21 08/30/21 20:55 20:55 20:55 WBC 11.49 H RBC 4.14 L Hgb 11.2 L Hct 35.6 L MCV 86 MCH 27.1 MCHC 31.5 L D RDW 14.7 H Plt Count 256 MPV 9.3 Immature Gran % 0.3 Neutrophils % 91.8 Lymphocytes % 1.7 Monocytes % 5.6 Eosinophils % 0.3 Basophils % 0.3 Nucleated RBC % 0.0 Absolute Neutrophils 10.55 H Absolute Lymphocytes 0.20 L Absolute Monocytes 0.64 Absolute Eosinophils 0.03 Absolute Basophils 0.03 VBG Lactate Sodium 139 Potassium 4.2 Chloride 101 Carbon Dioxide 25.1 Anion Gap 12.9 H BUN 36 H Creatinine 1.9 H Estimated GFR/1.73 m2 35.32 Glucose 212 H Calcium 9.2 Magnesium Total Bilirubin 1.2 H AST 719 H ALT 416 H Alkaline Phosphatase 341 H Troponin I < 50 C-Reactive Protein Total Protein 8.0 Albumin 3.4 Lipase Procalcitonin 1.0 Urine Color Urine Clarity Urine pH Ur Specific [place] Urine Protein Urine Ketones Urine Blood Urine Nitrite Urine Bilirubin Urine Urobilinogen Ur Leukocyte Esterase Urine RBC Urine WBC Ur Epithelial Cells Urine Crystals Urine Bacteria Urine Casts Urine Mucus Ur Culture Indicated? Urine Glucose COVID-19 Source SARS-CoV-2 (PCR) Influenza Type A (PCR) Influenza Type B (PCR) RSV (PCR) 08/30/21 08/31/21 08/31/21 21:25 02:20 06:45 WBC RBC Hgb Hct MCV MCH MCHC RDW Plt Count 199 MPV Immature Gran % Neutrophils % Lymphocytes % Monocytes % Eosinophils % Basophils % Nucleated RBC % Absolute Neutrophils Absolute Lymphocytes Absolute Monocytes Absolute Eosinophils Absolute Basophils VBG Lactate Sodium 138 Potassium 3.5 Chloride 102 Carbon Dioxide 24.7 Anion Gap 11.3 H BUN 36 H Creatinine 2.0 H Estimated GFR/1.73 m2 33.29 Glucose 145 H Calcium 8.5 Magnesium Total Bilirubin 0.9 AST 575 H ALT 410 H Alkaline Phosphatase 284 H Troponin I C-Reactive Protein Total Protein 7.0 Albumin 3.0 L Lipase 134 Procalcitonin Urine Color Yellow Urine Clarity Clear Urine pH 6.5 Ur Specific [place] 1.020 Urine Protein 100 H Urine Ketones Negative Urine Blood Negative Urine Nitrite Negative Urine Bilirubin Negative Urine Urobilinogen 1.0 H Ur Leukocyte Esterase Negative Urine RBC Negative Urine WBC Negative Ur Epithelial Cells Few Urine Crystals Negative Urine Bacteria Rare Urine Casts Negative Urine Mucus Negative Ur Culture Indicated? No Urine Glucose Negative COVID-19 Source SARS-CoV-2 (PCR) Influenza Type A (PCR) Influenza Type B (PCR) RSV (PCR) Last Vital Signs Temp 98.8 F 08/31/21 07:25 Pulse 76 08/31/21 07:25 Resp 18 08/31/21 07:25 BP 105/66 08/31/21 07:25 Pulse Ox 96 08/31/21 07:25
[2021-08-31] MEDS: Lactated Ringers 1,000 ML 75 ML IV (14:16)
[2021-08-31 15:30] VITALS: BP 108/67; PULSE 64; RESP 19; TEMP 36.9; O2SAT 97
[2021-08-31 20:05] VITALS: BP 112/66; PULSE 70; RESP 12; TEMP 37.4; O2SAT 96
[2021-08-31] MEDS: MORPHine 2 MG/ML SYR IVP (21:34)
[2021-08-31] MEDS: Celecoxib 100 MG CAP PO (21:34)
[2021-09-01 03:15] VITALS: BP 113/63; PULSE 65; RESP 14; TEMP 36.8; O2SAT 95
[2021-09-01] MEDS: Lactated Ringers 1,000 ML 100 ML IV (03:15)
[2021-09-01 07:02] LABS: Abs Immature Grans 0.03 10^3/uL (0.0-0.06); Absolute Basophil Count 0.04 10^3/uL (0.0-0.2); Absolute Eosinophil Count 0.36 10^3/uL (0.0-0.7); Absolute Lymphocyte Count 0.46 10^3/uL (1.2-3.4); Absolute Monocyte Count 0.75 10^3/uL (0.1-0.8); Absolute Neutrophil Count 6.63 10^3/uL (1.2-6.7); Basophils % 0.5; Eosinophils % 4.4; Immature Grans % 0.4; Lymphocytes % 5.6; MCHC 31.3 % (32.0-36.0); MCV 86 fL (80-95); MPV 9.5 fL (8.0-11.0); Monocytes % 9.1; Platelet Count 195 10^3/uL (130-400); RBC 3.71 10^6/uL (4.36-5.78); RDW 14.9 % (11.8-14.1); RDW-SD 47.3 fL; WBC 8.27 10^3/uL (4.4-10.8)
[2021-09-01 07:20] LABS: ALT 227 U/L (16-63); AST 152 U/L (15-37); Albumin 2.6 g/dL (3.4-5.0); Alkaline Phosphatase 195 U/L (46-116); Anion Gap 9.9 mmol/L (3-11); BUN 32 mg/dL (7-18); Bilirubin, Direct 0.2 mg/dL (0.0-0.2); Bilirubin, Total 0.6 mg/dL (0.2-1.0); CO2 26.1 mmol/L (21.0-32.0); Calcium 8.7 mg/dL (8.5-10.1); Chloride 105 mmol/L (98-107); Estimated GFR 33.29 (mL/min/1.73m2); Glucose 120 mg/dL (74-106); Sodium 141 mmol/L (136-145); Total Protein 6.6 g/dL (6.4-8.2)
[2021-09-01 07:30] VITALS: BP 121/69; PULSE 62; RESP 18; TEMP 36.7; O2SAT 97
[2021-09-01] MEDS: metFORMIN 500 MG TAB PO (08:10)
[2021-09-01] MEDS: PIPERACILLIN/TAZO 4.5 GM in Normal Saline 100 ML IVPB (08:10)
[2021-09-01] MEDS: Normal Saline Flush 10 ML SYR IVP (08:10)
[2021-09-01] MEDS: Metoprolol 25 MG TAB 50 MG PO (08:10)
[2021-09-01] MEDS: Normal Saline 500 ML 30 ML IV (08:11)
--- NOTE | 2021-09-01 11:03 | W.PM.PROGNOT ---
Date of Service Date of service: 09/01/21 Time of Service: 10:02 Assessment and Plan Assessment and plan (1) Cholangitis: Status: Acute Assessment and plan: 71 yo man who likely had cholangitis from a CBD stone who then passed the stone and no longer has obstruction. This explains his presenting symptoms and labwork as well as Gram Neg Bry bacteremia. He is HD stable. Labwork normalizing. No symptoms > 24 hours. Plan: DC home. F/u with PCP. F/U in surgical clinic to discuss role for elective cholecystectomy. Continue to hold Plavix until cleared to restart by PCP and/or surgeon Subjective Subjective Interval history since last seen: Feels great. No complaints. No fevers. No abd pain. Wants to go home. Exam Narrative Exam Narrative: Gen: nontoxic and interactive Neuro: AxOx3 Psych: Good mood and affect. Excellent insight and understanding. Abd: Soft, nontender and nondistended. Objective Last Vital Signs Temp 98.1 F 09/01/21 07:30 Pulse 62 09/01/21 07:30 Resp 18 09/01/21 07:30 BP 121/69 09/01/21 07:30 Pulse Ox 97 09/01/21 07:30 Laboratory Results - last 24 hr 09/01/21 09/01/21 06:00 06:00 WBC 8.27 RBC 3.71 L Hgb 10.0 L Hct 32.0 L MCV 86 MCH 27.0 MCHC 31.3 L RDW 14.9 H Plt Count 195 MPV 9.5 Immature Gran % 0.4 Neutrophils % 80.0 Lymphocytes % 5.6 Monocytes % 9.1 Eosinophils % 4.4 Basophils % 0.5 Nucleated RBC % 0.0 Absolute Neutrophils 6.63 Absolute Lymphocytes 0.46 L Absolute Monocytes 0.75 Absolute Eosinophils 0.36 Absolute Basophils 0.04 Sodium 141 Potassium 4.0 Chloride 105 Carbon Dioxide 26.1 Anion Gap 9.9 BUN 32 H Creatinine 2.0 H Estimated GFR/1.73 m2 33.29 Glucose 120 H Calcium 8.7 Total Bilirubin 0.6 Conjugated Bilirubin 0.2 AST 152 H ALT 227 H Alkaline Phosphatase 195 H Total Protein 6.6 Albumin 2.6 L
--- NOTE | 2021-09-01 17:26 | PDOC.CMDIS ---
- If Service Date Differs Date of service: 09/01/21 Time of Service: 17:26 LACE Index Scoring Tool - Questions: Length of Stay (in days): 1 Acuity (Admit via E.D.?): Yes Comorbidities: Previous M.I., Diabetes w/o Complication, Liver or Renal Disease E.D. Visits: 4 - Answers: Total Score: 13 Risk of Readmission: High Risk Care Management Discharge Reason for Hospitalization: acute adams w/stones Discharge Plan: Bear returned home today with no new services. His will drive him home via private vehicle. He will follow up with his PCP and discharge plan of care. He was happy to be going home. Patient/Family Education Needs: Review discharge instructions and limitations, discussion of self care needs including ask me three.
== END 2021-09-01 12:00 | disposition home or self-care (01) | DRG 445 ==
LOC: ER 08-31 01:26 → MS 08-31 06:45
PROVIDERS: Physician Assistant; Student in an Organized Health Care Education/Training Program; Admitting Provider Surgery; Emergency Provider Emergency Medicine; PCP Physician Assistant Medical; Visit Provider Surgery
DX: K80.32 Calculus of bile duct with acute cholangitis without obstruction (principal); M00.062 Staphylococcal arthritis, left knee; E78.5 Hyperlipidemia, unspecified; I25.10 Atherosclerotic heart disease of native coronary artery without angina pectoris; E11.22 Type 2 diabetes mellitus with diabetic chronic kidney disease; I12.9 Hypertensive chronic kidney disease with stage 1 through stage 4 chronic kidney disease, or unspecified chronic kidney disease; N18.9 Chronic kidney disease, unspecified; Z79.4 Long term (current) use of insulin; Z95.5 Presence of coronary angioplasty implant and graft; Z96.652 Presence of left artificial knee joint; R74.01 Elevation of levels of liver transaminase levels; T84.54XD Infection and inflammatory reaction due to internal left knee prosthesis, subsequent encounter; B95.61 Methicillin susceptible Staphylococcus aureus infection as the cause of diseases classified elsewhere; Z95.1 Presence of aortocoronary bypass graft; E03.9 Hypothyroidism, unspecified; E78.00 Pure hypercholesterolemia, unspecified; I25.2 Old myocardial infarction; Z87.891 Personal history of nicotine dependence; Z79.84 Long term (current) use of oral hypoglycemic drugs; Z79.02 Long term (current) use of antithrombotics/antiplatelets
CPT/HCPCS: 36415; 36416; 51702; 71250; 73562; 80048; 80053; 80076; 82962; 83690; 84145; 87040; 87077; 87637; 93005; 96361; 96365; 96366; 96367; 96375; 99223; 99232; 99285; J1650; 74176; 76700; 81003; 81015; 83605; 83735; 84484; 85025; 85049; 86140; 87186; 93010; J0131; J2270; J2405; J2543; J3475; J3490

== ENCOUNTER 2021-09-10 15:15 | Outpatient (REF) | payer MEDICARE, MEDICAID, SELFPAY ==
[2021-09-10 16:23] LABS: Abs Immature Grans 0.05 10^3/uL (0.0-0.06); Absolute Basophil Count 0.08 10^3/uL (0.0-0.2); Absolute Eosinophil Count 0.37 10^3/uL (0.0-0.7); Absolute Lymphocyte Count 1.07 10^3/uL (1.2-3.4); Absolute Neutrophil Count 6.35 10^3/uL (1.2-6.7); Basophils % 0.9; Eosinophils % 4.2; HCT 38.5 % (40.0-50.0); HGB 11.4 g/dL (13.5-17.5); Immature Grans % 0.6; Lymphocytes % 12.3; MCH 26.5 pg (27.0-33.0); MCHC 29.6 % (32.0-36.0); MCV 89 fL (80-95); MPV 9.2 fL (8.0-11.0); Monocytes % 9.2; Neutrophils % 72.8; Platelet Count 410 10^3/uL (130-400); RBC 4.31 10^6/uL (4.36-5.78); RDW 15.1 % (11.8-14.1); RDW-SD 49.5 fL; WBC 8.72 10^3/uL (4.4-10.8)
[2021-09-10 16:29] LABS: ALT 44 U/L (16-63); AST 18 U/L (15-37); Albumin 3.5 g/dL (3.4-5.0); Alkaline Phosphatase 123 U/L (46-116); Anion Gap 8.3 mmol/L (3-11); BUN 34 mg/dL (7-18); Bilirubin, Total 0.3 mg/dL (0.2-1.0); CO2 25.7 mmol/L (21.0-32.0); CREATININE 1.6 mg/dL (0.70-1.30); Chloride 104 mmol/L (98-107); Estimated GFR 43.07 (mL/min/1.73m2); Glucose 144 mg/dL (74-106); Magnesium 2.1 mg/dL (1.8-2.4); Potassium 4.9 mmol/L (3.5-5.1); Sodium 138 mmol/L (136-145)
[2021-09-10 16:34] LABS: Hemoglobin A1C 6.8 % (<5.7)
== END 2021-09-10 15:16 | disposition home or self-care (01) ==
LOC: NCHCN 15:15
PROVIDERS: PCP Physician Assistant Medical; Visit Provider Physician Assistant Medical
DX: N18.30 Chronic kidney disease, stage 3 unspecified (principal); R74.01 Elevation of levels of liver transaminase levels; M00.862 Arthritis due to other bacteria, left knee; E11.22 Type 2 diabetes mellitus with diabetic chronic kidney disease
CPT/HCPCS: 80053; 83036; 83735; 85025; 86140

== ENCOUNTER → 2021-09-20 09:56 | Outpatient (BNVA) | payer MEDICARE, MEDICAID, SELFPAY | PROVIDERS: PCP Physician Assistant Medical; Referring Provider Physician Assistant Medical; Visit Provider Student in an Organized Health Care Education/Training Program | DX: M86.262 Subacute osteomyelitis, left tibia and fibula (principal) | CPT/HCPCS: 99212 ==

== ENCOUNTER 2021-09-30 17:42 | Outpatient (REF) | payer MEDICARE, MEDICAID, SELFPAY ==
[2021-09-30 17:19] LABS: Abs Immature Grans 0.03 10^3/uL (0.0-0.06); Absolute Basophil Count 0.08 10^3/uL (0.0-0.2); Absolute Eosinophil Count 0.43 10^3/uL (0.0-0.7); Absolute Lymphocyte Count 0.83 10^3/uL (1.2-3.4); Absolute Monocyte Count 0.85 10^3/uL (0.1-0.8); Absolute Neutrophil Count 6.02 10^3/uL (1.2-6.7); Eosinophils % 5.2; HCT 38.2 % (40.0-50.0); HGB 11.9 g/dL (13.5-17.5); Immature Grans % 0.4; Lymphocytes % 10.1; MCH 26.9 pg (27.0-33.0); MCHC 31.2 % (32.0-36.0); MCV 86 fL (80-95); MPV 9.9 fL (8.0-11.0); Monocytes % 10.3; Platelet Count 226 10^3/uL (130-400); RBC 4.43 10^6/uL (4.36-5.78); RDW 15.4 % (11.8-14.1); WBC 8.24 10^3/uL (4.4-10.8)
[2021-09-30 17:36] LABS: ALT 21 U/L (16-63); AST 17 U/L (15-37); Albumin 3.6 g/dL (3.4-5.0); Alkaline Phosphatase 83 U/L (46-116); Anion Gap 11.3 mmol/L (3-11); BUN 36 mg/dL (7-18); Bilirubin, Total 0.3 mg/dL (0.2-1.0); CO2 24.7 mmol/L (21.0-32.0); CREATININE 1.8 mg/dL (0.70-1.30); Calcium 8.8 mg/dL (8.5-10.1); Calculated LDL 80 mg/dL (<100); Chloride 102 mmol/L (98-107); Cholesterol 148 mg/dL (<200); Ferritin 323 ng/mL (26-388); Glucose 178 mg/dL (74-106); HDL Cholesterol 38 mg/dL (40-60); Magnesium 1.8 mg/dL (1.8-2.4); Potassium 3.9 mmol/L (3.5-5.1); Sodium 138 mmol/L (136-145); Total Protein 7.7 g/dL (6.4-8.2); Triglyceride 150 mg/dL (<150)
[2021-09-30 17:59] LABS: C-Reactive Protein 0.45 mg/dL (0.0-0.3)
== END 2021-09-30 17:43 | disposition home or self-care (01) ==
LOC: NCHCN 17:42
PROVIDERS: PCP Physician Assistant Medical; Visit Provider Physician Assistant Medical
DX: E11.22 Type 2 diabetes mellitus with diabetic chronic kidney disease (principal); E83.42 Hypomagnesemia; E78.5 Hyperlipidemia, unspecified; M00.862 Arthritis due to other bacteria, left knee; D64.9 Anemia, unspecified
CPT/HCPCS: 80053; 80061; 82728; 83735; 85025; 86140

== ENCOUNTER → 2021-10-07 07:54 | Outpatient (BNVA) | payer MEDICARE, MEDICAID, SELFPAY | PROVIDERS: PCP Physician Assistant Medical; Referring Provider Physician Assistant Medical; Visit Provider Surgery | DX: R10.9 Unspecified abdominal pain (principal); E11.9 Type 2 diabetes mellitus without complications; I12.9 Hypertensive chronic kidney disease with stage 1 through stage 4 chronic kidney disease, or unspecified chronic kidney disease; N18.30 Chronic kidney disease, stage 3 unspecified; Z98.890 Other specified postprocedural states | CPT/HCPCS: 99214; 99242 ==

== ENCOUNTER 2021-10-30 09:51 | Outpatient (REF) | payer MEDICARE, MEDICAID, SELFPAY ==
[2021-10-30 14:11] LABS: Abs Immature Grans 0.03 10^3/uL (0.0-0.06); Absolute Basophil Count 0.06 10^3/uL (0.0-0.2); Absolute Eosinophil Count 0.35 10^3/uL (0.0-0.7); Absolute Lymphocyte Count 0.69 10^3/uL (1.2-3.4); Absolute Monocyte Count 0.86 10^3/uL (0.1-0.8); Absolute Neutrophil Count 5.06 10^3/uL (1.2-6.7); Basophils % 0.9; HCT 36.9 % (40.0-50.0); HGB 11.9 g/dL (13.5-17.5); Immature Grans % 0.4; Lymphocytes % 9.8; MCH 27.2 pg (27.0-33.0); MCHC 32.2 % (32.0-36.0); MCV 84 fL (80-95); MPV 9.7 fL (8.0-11.0); Monocytes % 12.2; Neutrophils % 71.7; Platelet Count 213 10^3/uL (130-400); RBC 4.37 10^6/uL (4.36-5.78); RDW 16.5 % (11.8-14.1); RDW-SD 50.6 fL; WBC 7.05 10^3/uL (4.4-10.8)
[2021-10-30 14:27] LABS: ALT 25 U/L (16-63); AST 20 U/L (15-37); Albumin 3.6 g/dL (3.4-5.0); Alkaline Phosphatase 72 U/L (46-116); Anion Gap 8.4 mmol/L (3-11); BUN 37 mg/dL (7-18); Bilirubin, Total 0.4 mg/dL (0.2-1.0); C-Reactive Protein 0.48 mg/dL (0.0-0.3); CO2 28.6 mmol/L (21.0-32.0); CREATININE 1.7 mg/dL (0.70-1.30); Calcium 8.7 mg/dL (8.5-10.1); Chloride 101 mmol/L (98-107); Estimated GFR 40.16 (mL/min/1.73m2); Glucose 175 mg/dL (74-106); Potassium 4.8 mmol/L (3.5-5.1); Sodium 138 mmol/L (136-145); Total Protein 7.6 g/dL (6.4-8.2)
== END 2021-10-30 09:52 | disposition home or self-care (01) ==
LOC: NCHCN 09:51
PROVIDERS: PCP Physician Assistant Medical; Visit Provider Physician Assistant Medical
DX: M00.862 Arthritis due to other bacteria, left knee (principal); E11.22 Type 2 diabetes mellitus with diabetic chronic kidney disease
CPT/HCPCS: 80053; 85025; 86140

== ENCOUNTER → 2021-11-12 09:58 | Outpatient (BNVA) | payer MEDICARE, MEDICAID, SELFPAY | PROVIDERS: PCP Physician Assistant Medical; Referring Provider Physician Assistant Medical; Visit Provider Nurse Practitioner Adult Health | DX: G56.22 Lesion of ulnar nerve, left upper limb (principal); G56.02 Carpal tunnel syndrome, left upper limb | CPT/HCPCS: 95886; 95909; 99203; 99213 ==

== ENCOUNTER 2021-12-02 17:46 | Outpatient (REF) | payer MEDICARE, MEDICAID, SELFPAY ==
[2021-12-02 17:40] LABS: Abs Immature Grans 0.01 10^3/uL (0.0-0.06); Absolute Basophil Count 0.05 10^3/uL (0.0-0.2); Absolute Eosinophil Count 0.33 10^3/uL (0.0-0.7); Absolute Lymphocyte Count 0.69 10^3/uL (1.2-3.4); Absolute Monocyte Count 0.77 10^3/uL (0.1-0.8); Absolute Neutrophil Count 4.09 10^3/uL (1.2-6.7); Basophils % 0.8; Eosinophils % 5.6; HCT 41.2 % (40.0-50.0); HGB 12.8 g/dL (13.5-17.5); Immature Grans % 0.2; Lymphocytes % 11.6; MCHC 31.1 % (32.0-36.0); MCV 90 fL (80-95); MPV 9.6 fL (8.0-11.0); Neutrophils % 68.8; Platelet Count 214 10^3/uL (130-400); RBC 4.57 10^6/uL (4.36-5.78); RDW 18.1 % (11.8-14.1); RDW-SD 59.7 fL; WBC 5.94 10^3/uL (4.4-10.8)
[2021-12-02 17:47] LABS: Hemoglobin A1C 6.7 % (<5.7)
[2021-12-02 17:50] LABS: ALT 23 U/L (16-63); AST 23 U/L (15-37); Albumin 3.8 g/dL (3.4-5.0); Alkaline Phosphatase 66 U/L (46-116); BUN 29 mg/dL (7-18); Bilirubin, Total 0.6 mg/dL (0.2-1.0); CREATININE 1.6 mg/dL (0.70-1.30); Chloride 102 mmol/L (98-107); Estimated GFR 46.35 (mL/min/1.73m2); Glucose 142 mg/dL (74-106); Sodium 139 mmol/L (136-145); Total Protein 7.6 g/dL (6.4-8.2)
== END 2021-12-02 17:47 | disposition home or self-care (01) ==
LOC: NCHCN 17:46
PROVIDERS: PCP Physician Assistant Medical; Visit Provider Physician Assistant Medical
DX: E11.22 Type 2 diabetes mellitus with diabetic chronic kidney disease (principal); M00.862 Arthritis due to other bacteria, left knee
CPT/HCPCS: 80053; 83036; 85025; 86140

== ENCOUNTER → 2021-12-13 08:22 | Outpatient (BNVA) | payer MEDICARE, MEDICAID, SELFPAY | PROVIDERS: PCP Physician Assistant Medical; Referring Provider Physician Assistant Medical; Visit Provider Student in an Organized Health Care Education/Training Program | DX: G56.02 Carpal tunnel syndrome, left upper limb (principal); G56.22 Lesion of ulnar nerve, left upper limb | CPT/HCPCS: 99213 ==

== ENCOUNTER → 2021-12-20 09:56 | Outpatient (BNVA) | payer MEDICARE, MEDICAID, SELFPAY | PROVIDERS: PCP Physician Assistant Medical; Referring Provider Physician Assistant Medical; Visit Provider Student in an Organized Health Care Education/Training Program | DX: M00.9 Pyogenic arthritis, unspecified (principal); M86.262 Subacute osteomyelitis, left tibia and fibula | CPT/HCPCS: 20610 ==

== ENCOUNTER 2021-12-20 16:39 | Outpatient (REF) | payer MEDICARE, MEDICAID, SELFPAY ==
[2021-12-20 11:59] LABS: Clarity Cloudy
[2021-12-20 12:00] LABS: Nucleated Cells 743 uL (0)
[2021-12-20 12:09] LABS: Polynuclear Cells 42 %
[2021-12-20 12:10] LABS: Mononuclear Cells 58 %; Other Cells 0 %
== END 2021-12-20 16:40 | disposition home or self-care (01) ==
LOC: LBN 16:39
PROVIDERS: PCP Physician Assistant Medical; Visit Provider Student in an Organized Health Care Education/Training Program
DX: M86.262 Subacute osteomyelitis, left tibia and fibula (principal)
CPT/HCPCS: 87070; 87205; 89051

== ENCOUNTER 2021-12-31 21:54 | Outpatient (REF) | payer MEDICARE, MEDICAID, SELFPAY ==
[2021-12-31 20:02] LABS: Abs Immature Grans 0.02 10^3/uL (0.0-0.06); Absolute Basophil Count 0.04 10^3/uL (0.0-0.2); Absolute Eosinophil Count 0.21 10^3/uL (0.0-0.7); Absolute Lymphocyte Count 0.56 10^3/uL (1.2-3.4); Absolute Monocyte Count 0.77 10^3/uL (0.1-0.8); Absolute Neutrophil Count 4.08 10^3/uL (1.2-6.7); Basophils % 0.7; Eosinophils % 3.7; HCT 41.3 % (40.0-50.0); HGB 13.5 g/dL (13.5-17.5); Immature Grans % 0.4; Lymphocytes % 9.9; MCH 29.2 pg (27.0-33.0); MCHC 32.7 % (32.0-36.0); MCV 89 fL (80-95); MPV 9.8 fL (8.0-11.0); Monocytes % 13.6; Neutrophils % 71.7; Platelet Count 213 10^3/uL (130-400); RBC 4.62 10^6/uL (4.36-5.78); RDW 15.9 % (11.8-14.1); RDW-SD 52.6 fL; WBC 5.68 10^3/uL (4.4-10.8)
[2021-12-31 20:10] LABS: Anion Gap 8.7 mmol/L (3-11); BUN 34 mg/dL (7-18); C-Reactive Protein 2.86 mg/dL (0.0-0.3); CO2 28.3 mmol/L (21.0-32.0); CREATININE 1.7 mg/dL (0.70-1.30); Calcium 8.8 mg/dL (8.5-10.1); Chloride 103 mmol/L (98-107); Glucose 152 mg/dL (74-106); Potassium 4.6 mmol/L (3.5-5.1); Sodium 140 mmol/L (136-145)
== END 2021-12-31 21:55 | disposition home or self-care (01) ==
LOC: NCHCN 21:54
PROVIDERS: PCP Physician Assistant Medical; Visit Provider Physician Assistant Medical
DX: M00.862 Arthritis due to other bacteria, left knee (principal)
CPT/HCPCS: 80048; 85025; 86140

== ENCOUNTER 2022-01-01 12:16 | Day surgery (SDC) | payer MEDICARE, MEDICAID, SELFPAY ==
[2022-01-01] VITALS (7 sets, daily range): BP systolic 105–156; BP diastolic 56–95; PULSE 58–72; RESP 11–24; TEMP 36.3–36.7; O2SAT 93–99; BMI 33.3
--- NOTE | 2022-01-01 12:32 | W.PM.DSUDISC ---
Discharge Plan Disposition Patient Disposition: HOME Condition: Good Discharge Details Reason For Visit: Left carpal and cubital tunnel syndromes Attending Provider: Alex Rice Primary Care Provider: Antonella Lucas Home Meds and New Rx's Prescriptions: New acetaminophen 500 mg tablet 500 mg PO Q6H PRN (Reason: pain) Qty: 60 2RF hydrocodone-acetaminophen 5-325 mg tablet 1 tab PO Q6H PRN (Reason: severe pain) Qty: 6 0RF Rx Instructions: Take one tablet up to every 6 hours as needed for severe postoperative pain Continued (DME) Dexcom G6 Transmitter Device See Rx Instructions .Route Rx Instructions: As directed magnesium oxide 400 mg (241.3 mg magnesium) tablet 800 mg PO DAILY ferrous sulfate 325 mg (65 mg iron) tablet 325 mg PO DAILY sucralfate 1 gram tablet 1 g PO HS Probiotic (B. coagulans) 250 million cell tablet,chewable 2 cell PO DAILY cephalexin 500 mg capsule 500 mg PO QID pantoprazole 40 mg tablet,delayed release (DR/EC) 40 mg PO BID oxycodone 10 mg tablet 10 mg PO QHS PRN gabapentin 100 mg capsule 100 mg PO TID Rx Instructions: TAKE 1 IN AM , 1 AT NOONTIME AND 2 CAPS AT BEDTIME nitroglycerin [Nitrostat] 0.4 MG tablet, sublingual 0.4 mg Sublingual PRN PRN epinephrine 0.3 MG/0.3 ML auto-injector 0.3 mg IM PRN PRN sildenafil (pulm.hypertension) 20 mg tablet 20 mg PO .COMPLEX Rx Instructions: 20 mg orally; Take 2-3 tablets by mouth as needed insulin aspart U-100 [Novolog Flexpen U-100 Insulin] 100 unit/mL (3 mL) insulin pen 15 - 17 unit SUBCUT DIRECTED Label Comments: INJECT UNDER THE SKIN FOUR TIMES DAILY ON SLIDING SCALE DIRECTED. MAXIMUM DAILY DOSE IS 60 UNITS clopidogrel 75 mg tablet 75 mg PO DAILY Hold Instructions: Resume on 09/07/21. Hold until cleared by PCP / surgeon to restart. Label Comments: TAKE 1 TABLET BY MOUTH EVERY DAY levothyroxine 25 mcg tablet 25 mcg PO DAILY Label Comments: TAKE 1 TABLET BY MOUTH DAILY celecoxib 100 mg capsule 100 mg PO BID PRN (Reason: Pain) metformin 500 mg Tablet 500 mg PO BID furosemide [Lasix] 20 mg Tablet 20 mg PO QAM insulin glargine [Lantus Solostar U-100 Insulin] 100 unit/mL (3 mL) Insulin Pen 22 unit SUBCUT QPM rosuvastatin 10 mg Tablet 10 mg PO DAILY Qty: 30 0RF metoprolol tartrate 75 mg tablet 50 mg PO BID Label Comments: TAKE 1 TABLET BY MOUTH TWICE DAILY Discharge Instructions Additional Instructions: Cubital Tunnel Decompression Discharge Instructions Activity: You should stay in the sling for the first 2 weeks. You may come out of the sling for gentle motion and hygiene but should largely remain in the sling to allow the incision site to heal. Gentle motion of the elbow, hand, wrist, and fingers is okay and encouraged after the first few days, but no repetitive activites nor heavy lifting. You may apply ice. Medications: - You should take Tylenol and your baseline Celebrix around the clock. - You have been prescribed Hydrocodone for breakthrough pain. Dressings: - The initial surgical dressing should stay in place for 3 days. It may then be removed and kept clean and dry. You should cover with a light gauze dressing. - You may shower after 3 days and get the wound wet. Follow-up: 10 days Stand Alone Forms: Dwayne Nickerson Tunnel Release Equipment/Supplies: Sling Activity:: Elevate Remove Dressings/Wound Care:: 72 hours Shower/Bathe:: 72 hours Diet:: As Tolerated Discharge Orders Discharge Orders: Discharge Order (Routine); Ordered 01/01/22 Ordered By: Stacey Augustin
--- NOTE | 2022-01-01 13:09 | ANES.PREOP_ITS ---
General Info Date of Service Date Performed: 01/01/22 Height: 6 ft 2 in Weight: 117.8 kg Body Mass Index (BMI): 33.3 Surgical Procedure: Operation Date: 01/01/22 14:40 Proposed Procedure Side Surgeon p Wrist ECTR Left Alex Rice MD s Cubital Tunnel Release Left Alex Rice MD Meds Allergies and Home Medications Allergies Allergy/AdvReac Type Severity Reaction Status Date / Time lisinopril Allergy Severe Anaphylaxis Verified 01/01/22 12:39 varenicline tartrate AdvReac Unknown Per pt, Verified 01/01/22 12:42 [From Chantix] didn't set well with him hornet Allergy facial/throat Uncoded 01/01/22 12:39 swelling Home Medication Medication Instructions Recorded Nitrostat 0.4 mg sublingual tablet 0.4 mg sublingual PRN PRN 03/01/13 (nitroglycerin) epinephrine 0.3 mg/0.3 mL 0.3 mg IM PRN PRN 03/01/13 injection, auto-injector furosemide 20 mg tablet (Lasix) 20 mg PO QAM 09/07/18 insulin glargine 100 unit/mL (3 22 unit subcut QPM 04/27/20 mL) subcutaneous pen (Lantus Solostar U-100 Insulin) rosuvastatin 10 mg tablet 10 mg PO DAILY #30 tabs 05/17/21 celecoxib 100 mg capsule 100 mg PO BID PRN Pain 06/10/21 clopidogrel 75 mg tablet 75 mg PO DAILY 06/10/21 insulin aspart U-100 100 unit/mL 15 - 17 unit subcut DIRECTED 06/10/21 (3 mL) subcutaneous pen (Novolog Flexpen U-100 Insulin aspart) levothyroxine 25 mcg tablet 25 mcg PO DAILY 06/10/21 metformin 500 mg tablet 500 mg PO BID 06/23/21 metoprolol tartrate 75 mg tablet 50 mg PO BID 07/08/21 sildenafil (pulm.hypertension) 20 20 mg PO .COMPLEX 09/12/21 mg tablet blood-glucose transmitter (Dexcom 11/12/21 G6 Transmitter device) magnesium oxide 400 mg (241.3 mg 800 mg PO DAILY 11/12/21 magnesium) tablet cephalexin 500 mg capsule 500 mg PO QID 12/20/21 ferrous sulfate 325 mg (65 mg 325 mg PO DAILY 12/20/21 iron) tablet gabapentin 100 mg capsule 100 mg PO TID 12/20/21 oxycodone 10 mg tablet 10 mg PO QHS PRN 12/20/21 sucralfate 1 gram tablet 1 g PO HS 12/20/21 acetaminophen 500 mg tablet 500 mg PO Q6H PRN pain #60 tabs 01/01/22 hydrocodone 5 mg-acetaminophen 325 1 tab PO Q6H PRN severe pain #6 01/01/22 mg tablet tabs Current Visit Medications: Current Medications Generic Name Dose Route Start Last Admin Trade Name Frejunaid PRN Reason Stop Dose Admin Acetaminophen 650 mg 01/01/22 12:32 Acetaminophen 325 Mg Tab PO Q4H PRN PRN Hydrocodone Bitart/Acetaminophen 0 tab 01/01/22 12:32 Hydrocodone 5/Acetaminophen 325 Tab PO Q3H PRN PRN Pain Ringer's Solution 1,000 mls @ 80 mls/hr 01/01/22 06:00 IV 01/30/22 23:59 INFUSION SAI Cefazolin Sodium/Dextrose 2 gm in 50 mls @ 100 mls/hr 01/01/22 06:00 Ancef Duplex IVPB 01/30/22 23:59 PREOP SAI IV Miscellaneous Supplies 1 each 01/01/22 06:00 Iv Access IV 01/30/22 23:59 DIRECTED SAI Sodium Chloride 0 ml 01/01/22 06:00 Normal Saline Flush 10 Ml Syr IV 01/30/22 23:59 PRN PRN Sodium Chloride 0 ml 01/01/22 06:00 Normal Saline 10 Ml Vial IJ 01/30/22 23:59 DIRECTED PRN Sterile Water 0 ml 01/01/22 06:00 Water,Injection,Sterile 10 Ml Vial IJ 01/30/22 23:59 DIRECTED PRN PFSH Active Problems Active Problems: Problem Status Onset Code Closed left clavicular fracture 09/07/18 S42.002A Septic arthritis of knee, left M00.9 Ulnar neuropathy of left upper extremity G56.22 Left carpal tunnel syndrome G56.02 Medical History Medical History Acute GI bleeding Anemia CAD (coronary artery disease) Chronic lower back pain CKD (chronic kidney disease) COVID Diabetes mellitus type 2 in obese Erectile dysfunction Gout Salena's thyroiditis Heart attack Hx of myocardial infarction Hypercholesterolemia Hyperglycemia Hyperlipidemia Hypertension Hypomagnesemia Hypothyroidism Lumbar transverse process fracture Osteomyelitis Sepsis Thyroid nodule Ulnar neuropathy at wrist Medical History Comments:: LEs pitting edema Surgical History Surgical History H/O arthroscopy of left knee History of foot surgery History of heart bypass surgery 2019 History of tonsillectomy Tobacco Smoking/Tobacco Use Status: Former Tobacco Use Alcohol Alcohol Intake: current Alcohol intake frequency: 3 or more drinks per day Alcohol type: beer Substance Use Substance use type: does not use Vital Signs and Lab Results Vital Signs Most Recent Vital Signs in EMR: Most Recent Vital Signs Temp Pulse Resp BP Pulse Ox 36.7 C 72 18 156/95 H 99 01/01/22 12:58 01/01/22 12:58 01/01/22 12:58 01/01/22 12:58 01/01/22 12:58 Lab Results Blood Type / Crossmatch: No Data to Display Complete Blood Count: White Blood Count 5.68 10^3/uL (4.4-10.8) 12/31/21 09:00 Red Blood Count 4.62 10^6/uL (4.36-5.78) 12/31/21 09:00 Hemoglobin 13.5 g/dL (13.5-17.5) 12/31/21 09:00 Hematocrit 41.3 % (40.0-50.0) 12/31/21 09:00 Platelet Count 213 10^3/uL (130-400) 12/31/21 09:00 Complete Metabolic Panel: Sodium 140 mmol/L (136-145) 12/31/21 09:00 Potassium 4.6 mmol/L (3.5-5.1) 12/31/21 09:00 Chloride 103 mmol/L (98-107) 12/31/21 09:00 Carbon Dioxide 28.3 mmol/L (21.0-32.0) 12/31/21 09:00 BUN 34 mg/dL (7-18) H 12/31/21 09:00 Creatinine 1.7 mg/dL (0.70-1.30) H 12/31/21 09:00 Est GFR (CKD-EPI 2020) 43.10 (mL/min/1.73m2) 12/31/21 09:00 Calcium 8.8 mg/dL (8.5-10.1) 12/31/21 09:00 Glucose 152 mg/dL (74-106) H 12/31/21 09:00 C-Reactive Protein 2.86 mg/dL (0.0-0.3) H 12/31/21 09:00 Liver Function Panel: No Data to Display Coagulation Panel: No Data to Display Cardiac Panel: No Data to Display Arterial Blood Gas: No Data to Display Venous Blood Gas: No Data to Display Pancreas Panel: No Data to Display Thyroid Panel: No Data to Display Infectious Disease: No Data to Display Blood Cultures: No Data to Display Toxicology Panel: No Data to Display Imaging and Studies Imaging and Studies Study information below may be from another EMR and interpreted by another provider. Please see original notes in EMR for more complete details. EKG Summary: 08/30/21: Sinus rhythm...normal P axis, V-rate 60- 99 Sinus pause...long R-R interval, normal QRS Sinus rhythm at 81, normal axis, non-specific ST changes, no STEMI, non- diagnostic EKG Echocardiogram Summary: 06/11/21: Normal left ventricular wall thickness and chamber size. Estimated ejection fraction is 55 to 60%. Wall motion is normal Normal right ventricular size and systolic function Both atria are normal in size Aortic valve is trileaflet and sclerotic. There is no aortic stenosis or regurgitation Mild mitral annular calcification. Mild mitral regurgitation Normal tricuspid valve with trace regurgitation. RVSP could not be estimated Borderline dilated ascending aorta 2019: LVEF 66%, grade 1 diastolic dysfunction, moderate AV sclerosis without stenosis, mildly dilated ascending thoracic aiota 3.8 cm. Anesthesia Assessment and Plan Anesthesia History Personal History: No History of Anesthesia Complications Family History: No Family History of Anesthesia Complications Exercise Tolerance Exercise Tolerance: Unknown Cardiac & Pulmonary Exam Cardiac Exam: Normal S1/S2 Heart Sounds Pulmonary Exam: Clear Bilateral Breath Sounds Implantable Cardiac Device Does patient have a Pacemaker or an ICD?: No Airway Exam Known Difficult Airway: No Mallampati Class: 4 Mouth Opening: Normal (> 3cm) Thyromental Distance: Less than 3 cm Neck Range of Motion: Full ROM Neck Circumference: Normal Teeth Condition: Generalized Poor Dentition Airway Comments: 3 teeth, denies loose. ASA Classification ASA Score: ASA 3 Emergency Case?: No NPO Status NPO Status: NPO Clears >2 hours, Solids >8 hours Anesthesia Plan Resuscitation Status: Full Code Anesthesia Technique: General Anesthesia Airway Planned: LMA Monitors Used: Standard Monitors
[2022-01-01] MEDS: Lactated Ringers 1,000 ML 80 ML IV (13:20)
[2022-01-01] MEDS: ceFAZolin 2 GM/50 ML BAG IVPB (14:09)
[2022-01-01] MEDS: Bupivacaine 0.5% Pres-Free W/EPI 10 ML VIAL (14:24)
--- NOTE | 2022-01-01 15:41 | W.ANESPOSTOP ---
Postoperative Evaluation Date, Time and Location Date Performed: 01/01/22 Time Performed: 15:41 Patient Location: PACU Vital Signs Most Recent Imported Vital Signs: Most Recent Vital Signs Temp Pulse Resp BP Pulse Ox 36.3 C L 64 19 114/70 97 01/01/22 15:20 01/01/22 15:20 01/01/22 15:20 01/01/22 15:20 01/01/22 15:20 Pain Score Most Recent Pain Score: Most Recent Pain Score Pain Level 0 01/01/22 15:20 Assessment Mental Status: Awake (Alert & Oriented to Patient Baseline) Airway and Respiratory Function: Patent airway with normal (patient baseline) respiratory exam Cardiovascular Function: Hemodynamically Stable Hydration Status: Adequately Hydrated Nausea & Vomiting: No Nausea or Vomiting Pain: Pt. Denies Any Pain Peripheral Nerve Block: Patient did not receive a nerve block
--- NOTE | 2022-01-01 18:27 | W.PM.OP ---
Date of service: 01/01/22 Time of Service: 13:45 Operative Note Operative Note DATE OF PROCEDURE: 01/01/22 PRE-OP DIAGNOSIS: Left Carpal Tunnel and Left Cubital Tunnel Syndrome POST-OP DIAGNOSIS: same PROCEDURE: Left Endoscopic Carpal Tunnel Release and Left Cubital Tunnel Decompression SURGEON: Alex Rice CANCER PROGRAM COORDINATOR: Stacey Augustin ANESTHESIA TYPE: General LMA/ETT Refer to Anesthesia Record ESTIMATED BLOOD LOSS: 0 PATHOLOGY: none sent TOURNIQUET TIME: 15 COMPLICATIONS: None Patient was transported to: PACU Patient's condition: stable Indications: Bear is a 71 year old male who has had symptoms of carpal and cubital tunnel syndrome. Nonoperative treatment options had been trialed. Nerve conduction studies identified the carpal and cubital tunnel as the point of compression. Given failure of nonoperative treatments and persistent symptoms, I offered operative intervention. I reviewed the technical details of a carpal tunnel release and cubital tunnel decompression with possible anterior subcutaneous transposition. I reviewed the risk of the procedure to include bleeding, infection, pain, stiffness, nerve instability, damage to superficial nerves, persistent symptoms, and incomplete release. Despite these risks, the patient elected to proceed. Findings: The carpal tunnel was release with a standard endoscopic technique without difficulty and excellent visualization. There was a tightened cubital tunnel. The ulnar nerve was release from the first motor branch distally through the [place] proximally. Procedure Description: Bear was greeted in the preoperative holding area where the correct side was identified and marked. The consent was reviewed with the patient and signed. The history and physical was updated. All questions were answered. He was taken back to the operating room. The patient was placed into the supine position on the operating room table with the left arm on an arm board. A nonsterile tourniquet was placed high onto the arm, into the axilla. All bony prominences were well padded. Prophylactic antibiotics in the form of Cefazolin were administered. The right arm was then prepped with Chloraprep and draped in a standard fashion with stockinette and extremity drape. A timeout to confirm correct identity, side and site, procedure, allergies, anesthesia, and medical concerns was performed. The surgical site was marked in the volar wrist creases in line with the radial border of the fourth ray. This area was anesthetized with approximately 6cc of 1% Lidocaine with Epinephrine. The surgical site about the medial elbow was drawn on the skin just posterior to the medial epicondyle borders. The planned surgical field was anesthetized with 1% Lidocaine with Epinephrine. The limb was then exsanguinated with an Esmarch. Starting with the carpal tunnel, the skin was incised with a 15 blade, approximately 1cm. The skin only was cut and the deeper tissue was dissected bluntly with a tenotomy scissor, avoiding passing nerve and venous structures. The fascia was penetrated and opened bluntly. A two-prong skin hook was placed under this proximal fascial edge. A series of hamate finders were used to identify and dilate the carpal tunnel. Synovial elevator was used to free synovial attachments to the underside of the transverse carpal ligament. My thumb was kept in the palm to mary the distal extent of the carpal tunnel and correctly position the hand. The Microaire endoscope was inserted without difficulty and without resistance. Excellent visualization showed horizontally running fibers of the transverse carpal ligament (TCL). The distal extent of the TCL was visualized and the end of the scope palpated with the thumb. The blade was elevated and withdrawn from distal to proximal. The TCL was split into two flaps. The endoscope was reinserted to confirm complete release and any remnant ligament was incised. The scope was withdrawn and the proximal aspect of the carpal tunnel was grossly inspected and appeared release with the median nerve visible. The antebrachial fascia at the level of the wrist was then freed from the overlying skin and then the underlying median nerve with blunt dissection. This was transected longitudinally for about 3cm proximal to the wrist incision. The wound was then irrigated with easy flow of irrigant distally and proximally. The incision was closed with a single 4-0 Nylon suture. . Attention was then turned to the cubital tunnel release. The skin of the medial elbow was incised only with the elbow in some flexion and on a bump. The deep tissue and subcutaneous fat was dissected with a tenotomy scissors trying to protect any branches of the medial antebrachial cutaneous nerve. Any branches that were identified were retracted out of the way. The ulnar nerve was palpated and identified. A small window into the cubital tunnel, sheath overlying the nerve, was created and the nerve was able to be palpated with the [place]. A Metzenbaum scissor was then used to open up the sheath starting with Neri's ligament. I then worked distal over the ulnar nerve releasing any constraints against the nerve all the way to the fascia of the FCU muscle belly. This muscle belly was bluntly all the way down to the first motor branch of the ulnar nerve and the overlying fascia was incised. Likewise starting there at the medial epicondyle, I proceeded to work proximally to release any constraints over the ulnar nerve. This was taken all the way to the [place] of [place]. The medial intermuscular septum was also palpated and any sharp edges against the ulnar nerve were resected and released. After fully releasing the nerve it was inspected visually. I was also able to palpate the nerve fully and reach one finger up into the proximal and distal aspects to make sure there were no constraints against the nerve. A freer elevator was also used to slide easily against the ulnar nerve without any points of constriction. The arm was then taken through range of motion. The ulnar nerve did not sublux/dislocate out of its groove behind the lateral epicondyle. Therefore, no transposition was performed. The tourniquet was then deflated. Any areas of bleeding were cauterized with bipolar electrocautery. The wound was thoroughly irrigated. The deep tissue was closed with a 3-0 Vicryl. The skin was closed with a 4-0 nylon. The wounds were dressed with Xeroform, 4 x 4's, ABD, Kerlix and an Brandon wrap. [Patient] was placed into a sling. [Patient Name] was transferred back to the PACU in a stable condition.
== END 2022-01-01 16:20 | disposition home or self-care (01) ==
PROVIDERS: PCP Physician Assistant Medical; Visit Provider Student in an Organized Health Care Education/Training Program
PROC: 01N54ZZ Release Median Nerve, Percutaneous Endoscopic Approach (ICD-10-PCS; CPT 29848; principal; 2022-01-01 14:30)
PROC: (CPT 64718; 2022-01-01 14:30)
DX: G56.02 Carpal tunnel syndrome, left upper limb (principal); G56.22 Lesion of ulnar nerve, left upper limb; E06.3 Autoimmune thyroiditis; E11.22 Type 2 diabetes mellitus with diabetic chronic kidney disease; I12.9 Hypertensive chronic kidney disease with stage 1 through stage 4 chronic kidney disease, or unspecified chronic kidney disease; N18.9 Chronic kidney disease, unspecified
CPT/HCPCS: 64718; 29848; J0690; J1100; J1885; J2250; J2405; J2704; L3650

== ENCOUNTER → 2022-01-10 08:54 | Outpatient (BNVA) | payer MEDICARE, MEDICAID, SELFPAY | PROVIDERS: PCP Physician Assistant Medical; Referring Provider Physician Assistant Medical; Visit Provider Student in an Organized Health Care Education/Training Program | DX: G56.02 Carpal tunnel syndrome, left upper limb (principal); Z47.89 Encounter for other orthopedic aftercare ==

== ENCOUNTER → 2022-01-17 08:11 | Outpatient (BNVA) | payer MEDICARE, MEDICAID, SELFPAY | PROVIDERS: PCP Physician Assistant Medical; Referring Provider Physician Assistant Medical; Visit Provider Student in an Organized Health Care Education/Training Program | DX: Z47.89 Encounter for other orthopedic aftercare (principal); G56.02 Carpal tunnel syndrome, left upper limb; G56.22 Lesion of ulnar nerve, left upper limb ==

== ENCOUNTER 2022-01-20 13:52 | Outpatient (REF) | payer MEDICARE, SELFPAY ==
[2022-01-20 18:20] LABS: ALT 34 U/L (16-63); AST 20 U/L (15-37); Albumin 4.1 g/dL (3.4-5.0); Alkaline Phosphatase 66 U/L (46-116); Anion Gap 10.3 mmol/L (3-11); BUN 50 mg/dL (7-18); Bilirubin, Total 0.4 mg/dL (0.2-1.0); C-Reactive Protein 0.35 mg/dL (0.0-0.3); CO2 27.7 mmol/L (21.0-32.0); Calcium 8.8 mg/dL (8.5-10.1); Chloride 103 mmol/L (98-107); Estimated GFR 35.46 (mL/min/1.73m2); Glucose 137 mg/dL (74-106); Potassium 4.4 mmol/L (3.5-5.1); Sodium 141 mmol/L (136-145); Total Protein 7.8 g/dL (6.4-8.2)
[2022-01-20 18:24] LABS: Abs Immature Grans 0.02 10^3/uL (0.0-0.06); Absolute Basophil Count 0.09 10^3/uL (0.0-0.2); Absolute Monocyte Count 1.12 10^3/uL (0.1-0.8); Absolute Neutrophil Count 6.25 10^3/uL (1.2-6.7); Eosinophils % 3.4; HCT 42.8 % (40.0-50.0); HGB 13.6 g/dL (13.5-17.5); Immature Grans % 0.2; Lymphocytes % 11.4; MCH 28.7 pg (27.0-33.0); MCHC 31.8 % (32.0-36.0); MCV 90 fL (80-95); MPV 10.2 fL (8.0-11.0); Monocytes % 12.8; Neutrophils % 71.2; Platelet Count 248 10^3/uL (130-400); RBC 4.74 10^6/uL (4.36-5.78); RDW 14.7 % (11.8-14.1); RDW-SD 49.2 fL; WBC 8.78 10^3/uL (4.4-10.8)
== END 2022-01-20 13:53 | disposition home or self-care (01) ==
LOC: NCHCN 13:52
PROVIDERS: PCP Physician Assistant Medical; Visit Provider Physician Assistant Medical
DX: R74.01 Elevation of levels of liver transaminase levels (principal); M00.862 Arthritis due to other bacteria, left knee
CPT/HCPCS: 80053; 85025; 86140

== ENCOUNTER → 2022-02-03 09:01 | Outpatient (BNVA) | payer MEDICARE, MEDICAID, SELFPAY | PROVIDERS: PCP Physician Assistant Medical; Referring Provider Physician Assistant Medical; Visit Provider Student in an Organized Health Care Education/Training Program | DX: Z47.89 Encounter for other orthopedic aftercare (principal); G56.22 Lesion of ulnar nerve, left upper limb; G56.02 Carpal tunnel syndrome, left upper limb; M00.9 Pyogenic arthritis, unspecified ==

== ENCOUNTER 2022-02-05 02:59 | Outpatient (CLI) | payer MEDICARE, SELFPAY ==
[2022-02-05 09:54] LABS: HCT 39.9 % (40.0-50.0); HGB 13.2 g/dL (13.5-17.5); MCH 29.5 pg (27.0-33.0); MCHC 33.1 % (32.0-36.0); MCV 89 fL (80-95); MPV 9.1 fL (8.0-11.0); Platelet Count 181 10^3/uL (130-400); RBC 4.47 10^6/uL (4.36-5.78); RDW 14.5 % (11.8-14.1); RDW-SD 47.6 fL; WBC 6.96 10^3/uL (4.4-10.8)
[2022-02-05 10:10] LABS: BUN 48 mg/dL (7-18); Calcium 8.7 mg/dL (8.5-10.1); Chloride 99 mmol/L (98-107); Estimated GFR 35.46 (mL/min/1.73m2); Glucose 163 mg/dL (74-106); Potassium 4.4 mmol/L (3.5-5.1); Sodium 135 mmol/L (136-145)
== END 2022-02-05 03:00 | disposition home or self-care (01) ==
PROVIDERS: PCP Physician Assistant Medical; Visit Provider Student in an Organized Health Care Education/Training Program
DX: M00.9 Pyogenic arthritis, unspecified (principal); Z01.818 Encounter for other preprocedural examination; M25.562 Pain in left knee; Z01.812 Encounter for preprocedural laboratory examination; Z98.890 Other specified postprocedural states
CPT/HCPCS: 36415; 80048; 85027

== ENCOUNTER 2022-02-11 05:55 | Day surgery (SDC) | payer MEDICARE, MEDICAID, SELFPAY ==
[2022-02-11] VITALS (9 sets, daily range): BP systolic 100–119; BP diastolic 47–73; PULSE 43–58; RESP 14–23; TEMP 36.1–36.5; O2SAT 95–99; BMI 34.2
--- NOTE | 2022-02-11 06:45 | W.ANESPRE ---
General Info Date of Service Date Performed: 02/11/22 Height: 6 ft 2 in Weight: 121.2 kg Body Mass Index (BMI): 34.2 Surgical Procedure: Operation Date: 02/11/22 07:40 Proposed Procedure Side Surgeon p Knee Total Revision-ATTUNE Left Alex Rice MD Meds Allergies and Home Medications Allergies Allergy/AdvReac Type Severity Reaction Status Date / Time lisinopril Allergy Severe Anaphylaxis Verified 02/11/22 06:22 varenicline tartrate AdvReac Unknown Per pt, Verified 02/11/22 06:22 [From Chantix] didn't set well with him hornet Allergy facial/throat Uncoded 02/11/22 06:22 swelling Home Medication Medication Instructions Recorded Nitrostat 0.4 mg sublingual tablet 0.4 mg sublingual PRN PRN 03/01/13 (nitroglycerin) epinephrine 0.3 mg/0.3 mL 0.3 mg IM PRN PRN 03/01/13 injection, auto-injector furosemide 20 mg tablet (Lasix) 20 mg PO QAM 09/07/18 insulin glargine 100 unit/mL (3 22 unit subcut QPM 04/27/20 mL) subcutaneous pen (Lantus Solostar U-100 Insulin) rosuvastatin 10 mg tablet 10 mg PO DAILY #30 tabs 05/17/21 celecoxib 100 mg capsule 100 mg PO BID PRN Pain 06/10/21 clopidogrel 75 mg tablet 75 mg PO DAILY 06/10/21 insulin aspart U-100 100 unit/mL 15 - 17 unit subcut DIRECTED 06/10/21 (3 mL) subcutaneous pen (Novolog Flexpen U-100 Insulin aspart) levothyroxine 25 mcg tablet 25 mcg PO DAILY 06/10/21 metformin 500 mg tablet 500 mg PO BID 06/23/21 metoprolol tartrate 75 mg tablet 50 mg PO BID 07/08/21 sildenafil (pulm.hypertension) 20 20 mg PO .COMPLEX 09/12/21 mg tablet blood-glucose transmitter (Dexcom 11/12/21 G6 Transmitter device) magnesium oxide 400 mg (241.3 mg 800 mg PO DAILY 11/12/21 magnesium) tablet cephalexin 500 mg capsule 500 mg PO QID 12/20/21 ferrous sulfate 325 mg (65 mg 325 mg PO DAILY 12/20/21 iron) tablet gabapentin 100 mg capsule 100 mg PO TID 12/20/21 sucralfate 1 gram tablet 1 g PO HS 12/20/21 acetaminophen 500 mg tablet 500 mg PO Q6H PRN pain #60 tabs 01/01/22 Current Visit Medications: Current Medications Generic Name Dose Route Start Last Admin Trade Name Rgq PRN Reason Stop Dose Admin Acetaminophen 1,000 mg 02/11/22 06:00 Acetaminophen 500 Mg Tab PO 02/11/22 16:00 PREOP SAI Celecoxib 400 mg 02/11/22 06:00 Celecoxib 200 Mg Cap PO 02/11/22 16:00 PREOP SAI Gabapentin 300 mg 02/11/22 06:00 Gabapentin 300 Mg Cap PO 02/11/22 16:00 PREOP SAI Tranexamic Acid 1,000 mg/ 60 mls @ 360 mls/hr 02/11/22 06:00 Sodium Chloride IVPB 02/11/22 16:00 PREOP [facility] Ringer's Solution 1,000 mls @ 80 mls/hr 02/11/22 06:00 IV 02/11/22 23:59 INFUSION [facility] Cefazolin Sodium 3,000 mg/ 100 mls @ 200 mls/hr 02/11/22 06:00 Sodium Chloride IVPB 02/11/22 16:00 PREOP [facility] IV Miscellaneous Supplies 1 each 02/11/22 06:00 Iv Access IV 02/11/22 23:59 DIRECTED SAI Sodium Chloride 0 ml 02/11/22 06:00 Normal Saline Flush 10 Ml Syr IV 02/11/22 23:59 PRN PRN Sodium Chloride 0 ml 02/11/22 06:00 Normal Saline 10 Ml Vial IJ 02/11/22 23:59 DIRECTED PRN Sterile Water 0 ml 02/11/22 06:00 Water,Injection,Sterile 10 Ml Vial IJ 02/11/22 23:59 DIRECTED PRN PFSH Active Problems Active Problems: Problem Status Onset Code Closed left clavicular fracture 09/07/18 S42.002A Septic arthritis of knee, left M00.9 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 +1 currently LLE.HE Surgical History Surgical History H/O arthroscopy of left knee History of foot surgery History of heart bypass surgery 2019 History of tonsillectomy Tobacco Smoking/Tobacco Use Status: Former Tobacco Use Alcohol Alcohol Intake: current Alcohol intake frequency: 3 or more drinks per day Alcohol type: beer Substance Use Substance use type: does not use Vital Signs and Lab Results Vital Signs Most Recent Vital Signs in EMR: Most Recent Vital Signs Temp Pulse Resp BP Pulse Ox 36.4 C L 43 L 16 109/53 L 96 02/11/22 06:12 02/11/22 06:12 02/11/22 06:12 02/11/22 06:12 02/11/22 06:12 Lab Results Blood Type / Crossmatch: No Data to Display Complete Blood Count: White Blood Count 6.96 10^3/uL (4.4-10.8) 02/05/22 09:50 Red Blood Count 4.47 10^6/uL (4.36-5.78) 02/05/22 09:50 Hemoglobin 13.2 g/dL (13.5-17.5) L 02/05/22 09:50 Hematocrit 39.9 % (40.0-50.0) L 02/05/22 09:50 Platelet Count 181 10^3/uL (130-400) 02/05/22 09:50 Complete Metabolic Panel: Sodium 135 mmol/L (136-145) L 02/05/22 09:50 Potassium 4.4 mmol/L (3.5-5.1) 02/05/22 09:50 Chloride 99 mmol/L (98-107) 02/05/22 09:50 Carbon Dioxide 27.0 mmol/L (21.0-32.0) 02/05/22 09:50 BUN 48 mg/dL (7-18) H 02/05/22 09:50 Creatinine 2.0 mg/dL (0.70-1.30) H 02/05/22 09:50 Est GFR (CKD-EPI 2020) 35.46 (mL/min/1.73m2) 02/05/22 09:50 Calcium 8.7 mg/dL (8.5-10.1) 02/05/22 09:50 Albumin 4.1 g/dL (3.4-5.0) 01/20/22 08:06 Glucose 163 mg/dL (74-106) H 02/05/22 09:50 C-Reactive Protein 0.35 mg/dL (0.0-0.3) H 01/20/22 08:06 Liver Function Panel: Alanine Aminotransferase (ALT/SGPT) 34 U/L (16-63) 01/20/22 08:06 Aspartate Amino Transf (AST/SGOT) 20 U/L (15-37) 01/20/22 08:06 Coagulation Panel: No Data to Display Cardiac Panel: No Data to Display Arterial Blood Gas: No Data to Display Venous Blood Gas: No Data to Display Pancreas Panel: No Data to Display Thyroid Panel: No Data to Display Infectious Disease: No Data to Display Blood Cultures: No Data to Display Toxicology Panel: No Data to Display Imaging and Studies Imaging and Studies Study information below may be from another EMR and interpreted by another provider. Please see original notes in EMR for more complete details. EKG Summary: 08/30/21: Sinus rhythm...normal P axis, V-rate 60- 99 Sinus pause...long R-R interval, normal QRS Sinus rhythm at 81, normal axis, non-specific ST changes, no STEMI, non-diagnostic EKG Echocardiogram Summary: 06/11/21: Normal left ventricular wall thickness and chamber size. Estimated ejection fraction is 55 to 60%. Wall motion is normal Normal right ventricular size and systolic function Both atria are normal in size Aortic valve is trileaflet and sclerotic. There is no aortic stenosis or regurgitation Mild mitral annular calcification. Mild mitral regurgitation Normal tricuspid valve with trace regurgitation. RVSP could not be estimated Borderline dilated ascending aorta 2019: LVEF 66%, grade 1 diastolic dysfunction, moderate AV sclerosis without stenosis, mildly dilated ascending thoracic aiota 3.8 cm. Anesthesia Assessment and Plan Anesthesia History Personal History: No History of Anesthesia Complications Family History: No Family History of Anesthesia Complications Exercise Tolerance Exercise Tolerance: Metabolic Equivalents>4 Pertinent Negatives Pertinent Negatives: No Symptoms of GERD and No Major Pulmonary Symptoms or Complaints Cardiac & Pulmonary Exam Cardiac Exam: Normal S1/S2 Heart Sounds Pulmonary Exam: Clear Bilateral Breath Sounds Implantable Cardiac Device Does patient have a Pacemaker or an ICD?: No Airway Exam Known Difficult Airway: No Mallampati Class: 4 Mouth Opening: Normal (> 3cm) Thyromental Distance: Less than 3 cm Neck Range of Motion: Full ROM Neck Circumference: Normal Teeth Condition: Generalized Poor Dentition Airway Comments: 3 teeth, denies loose. ASA Classification ASA Score: ASA 3 Emergency Case?: No NPO Status NPO Status: NPO Clears >2 hours, Solids >8 hours Anesthesia Plan Resuscitation Status: Full Code Anesthesia Technique: Spinal Anesthesia Airway Planned: Natural Airway Pain Management: Surgeon and patient request nerve block Monitors Used: Standard Monitors
[2022-02-11] MEDS: Gabapentin 300 MG CAP PO (06:57)
[2022-02-11] MEDS: Acetaminophen 500 MG TAB 1000 MG PO (06:57)
[2022-02-11] MEDS: Celecoxib 200 MG CAP 400 MG PO (06:57)
[2022-02-11] MEDS: Lactated Ringers 1,000 ML 80 ML IV (07:09)
[2022-02-11] MEDS: ceFAZolin 3,000 MG in Normal Saline 100 ML 200 MG IVPB (07:28)
--- NOTE | 2022-02-11 07:30 | PDOC.DSDIS_ITS ---
Date of service: 02/11/22 Time of Service: 07:30 Discharge Plan Disposition Patient Disposition: Admit to [facility] Condition: Good Discharge Details Reason For Visit: Revision L TKA Admit Date/Time: 02/11/22 05:55 Admit Provider: Alex Rice Attending Provider: Alex Rice Primary Care Provider: Antonella Lucas Home Meds and New Rx's Prescriptions: New acetaminophen 500 mg tablet 1,000 mg PO TID Qty: 90 3RF aspirin 81 mg tablet,delayed release (DR/EC) 81 mg PO BID Qty: 60 0RF celecoxib 200 mg capsule 200 mg PO BID Qty: 60 0RF oxycodone 5 mg tablet 5 mg PO Q4H MDD 6 tabs PRN (Reason: pain) Qty: 20 0RF pantoprazole 40 mg tablet,delayed release (DR/EC) 40 mg PO DAILY Qty: 30 0RF cefadroxil 500 mg capsule 500 mg PO BID Qty: 14 0RF Continued (DME) Dexcom G6 Transmitter Device See Rx Instructions .Route Rx Instructions: As directed magnesium oxide 400 mg (241.3 mg magnesium) tablet 800 mg PO DAILY ferrous sulfate 325 mg (65 mg iron) tablet 325 mg PO DAILY sucralfate 1 gram tablet 1 g PO HS gabapentin 100 mg capsule 100 mg PO TID Rx Instructions: TAKE 1 IN AM , 1 AT NOONTIME AND 2 CAPS AT BEDTIME nitroglycerin [Nitrostat] 0.4 MG tablet, sublingual 0.4 mg Sublingual PRN PRN epinephrine 0.3 MG/0.3 ML auto-injector 0.3 mg IM PRN PRN sildenafil (pulm.hypertension) 20 mg tablet 20 mg PO .COMPLEX Rx Instructions: 20 mg orally; Take 2-3 tablets by mouth as needed insulin aspart U-100 [Novolog Flexpen U-100 Insulin] 100 unit/mL (3 mL) insulin pen 15 - 17 unit SUBCUT DIRECTED Label Comments: INJECT UNDER THE SKIN FOUR TIMES DAILY ON SLIDING SCALE DIRECTED. MAXIMUM DAILY DOSE IS 60 UNITS clopidogrel 75 mg tablet 75 mg PO DAILY Hold Instructions: Resume on 09/07/21. Hold until cleared by PCP / surgeon to restart. Label Comments: TAKE 1 TABLET BY MOUTH EVERY DAY levothyroxine 25 mcg tablet 25 mcg PO DAILY Label Comments: TAKE 1 TABLET BY MOUTH DAILY metformin 500 mg Tablet 500 mg PO BID furosemide [Lasix] 20 mg Tablet 20 mg PO QAM insulin glargine [Lantus Solostar U-100 Insulin] 100 unit/mL (3 mL) Insulin Pen 22 unit SUBCUT QPM rosuvastatin 10 mg Tablet 10 mg PO DAILY Qty: 30 0RF metoprolol tartrate 75 mg tablet 50 mg PO BID Label Comments: TAKE 1 TABLET BY MOUTH TWICE DAILY Discontinued cephalexin 500 mg capsule 500 mg PO QID celecoxib 100 mg capsule 100 mg PO BID PRN (Reason: Pain) acetaminophen 500 mg tablet 500 mg PO Q6H PRN (Reason: pain) Qty: 60 2RF Discharge Instructions Additional Instructions: Total Knee Discharge Instructions Activity: The most important activity is to walk and to work on gentle motion (both flexion and extension). You should try to take short walks a few times a day. It is important that when resting you work on keeping the knee straight. Avoid putting a pillow behind the knee as this will encourage flexion. Work on range of motion exercises as provided by Physical Therapy. - Start outpatient physical therapy within 2 weeks. - You should wear the ARTUR hose on both legs for 2 weeks. You may remove these at night. You may also use any compression sock in place of the ARTUR hose. - Utilize [employer] to review exercises, see videos on exercises and obtain basic information pertaining to your surgery and your recovery. Dressing: Remove the Brandon wrap by 2 days after your surgery and put on the ARTUR stocking given to you from the hospital. Keep the surgical dressing (underneath the BRANDON wrap) in place for at least one week. After the first week it may be removed and replaced with light gauze and tape or nothing. The wound and dressing may get wet after 3 days but avoid soaking the dressing or otherwise it will need to be changed. Many people prefer covering the dressing with cling wrap (saran wrap) to minimize it from getting soaked. If it gets wet, just pat dry. If it starts to peel off then it will need to be changed. Medications: - You should take Tylenol and anti-inflammatory Celebrex as your primary pain control medications. If the Celebrex is too expensive or not covered, please call the office for another alternative (Advil/Ibuprofen or Naproxen/Aleve) - You have been prescribed a stronger pain medication Oxycodone for breakthrough pain, take as needed as prescribed. - You have also been prescribed a stomach acid reduction agent Pantoprozole to help reduce stomach acid and reflux. - You will continue your Gabapentin to take at night for restlessness and nerve pain. - You will stop your Keflex and start Cefadroxil for 1 week then stop all antibiotics. - You will be taking Aspirin 81mg twice a day for DVT prevention unless instructed otherwise. - If you have constipation you should take Colace or Miralax (both [id number]). It takes most people 3-4 days to have a bowel movement. Follow-up: 2 weeks If you have any acute concerns or questions, please do not hesitate to contact the office at [phone]. You may contact Dr. Rice with any questions after hours through the hospital at [phone] or on his cell phone at [phone]. Referrals: Alex Rice MD [ [facility] STAFF PHYSICIAN] - Activity:: Activity as Tolerated Equipment/Supplies:: Walker Diet:: As Tolerated Discharge Orders Discharge Orders: Discharge Order (Routine); Ordered 02/11/22 Ordered By: Alex Rice DS: Diagnosis Discharge Diagnosis (1) Septic arthritis of knee, left: Status: Acute
--- NOTE | 2022-02-11 08:18 | W.ANESNERVE ---
Nerve Block Single Injection Procedure Date and Time Date Performed: 02/11/22 Procedure Start: 07:16 Location Where Procedure Performed Procedure Location: Day Surgery Unit Reason Performed: Postoperative Analgesia Requesting Provider: Alex Rice Timeout Performed Timeout Performed: Yes Monitoring Used ECG, Blood Pressure, SpO2 and See EMR for corresponding vital signs Sterility Sterility: Hand Hygiene, Surgical Cap, Surgical Mask, Sterile Gloves and Chlorhexidine Sedation Given During Procedure Sedation Given (Indicate Dose Given): Versed IV Dose:: 2mg Patient Mental Status Patient Mental Status: Sedate with meaningful communication Nerve Block 1st Nerve Block: Laterality: Left Block Type: Adductor Canal Needle / Catheter Used: 100mm SonoPlex II Local Anesthetic Bolus (Indicate Dose Given): Injected in 3-5ml increments after negative blood aspiration and Bupivacaine 0.25% Dose:: 10mL Additives (Indicate Dose Given): None Ultrasound: Sterile probe cover and gel used Ultrasound Image Saved?: Yes Nerve Stimulator: Not Used Paresthesia: None Procedure Tolerated: No Complications Procedure Outcome: Successful Performed By: Dorinda Daugherty
--- NOTE | 2022-02-11 11:31 | W.ANESPOSTOP ---
Postoperative Evaluation Date, Time and Location Date Performed: 02/11/22 Time Performed: 11:10 Patient Location: PACU Vital Signs Most Recent Imported Vital Signs: Most Recent Vital Signs Temp Pulse Resp BP Pulse Ox 36.4 C L 49 L 14 111/57 L 96 02/11/22 11:11 02/11/22 11:11 02/11/22 11:11 02/11/22 11:11 02/11/22 11:11 Pain Score Most Recent Pain Score: Most Recent Pain Score Pain Level 0 02/11/22 11:11 Assessment Mental Status: Awake (Alert & Oriented to Patient Baseline) Airway and Respiratory Function: Patent airway with normal (patient baseline) respiratory exam Cardiovascular Function: Hemodynamically Stable Hydration Status: Adequately Hydrated Nausea & Vomiting: No Nausea or Vomiting Pain: Pt. Denies Any Pain Peripheral Nerve Block: Patient did not receive a nerve block
--- NOTE | 2022-02-11 12:28 | IN_ITS ---
Date of service: 02/11/22 Time of Service: 12:28 PT Notes Visit Reasons: Revision L TKA Day Surgery Initial Physical Therapy Evaluation Date: 02/11/2022 Referring Doctor: Dar Sanford,? [facility] PT Orders: PT CONSULT: Eval/treat Precautions: Fall. Standard.? Weight bearing as tolerated on the left LE with AD.? Patient Profile/Admitting Diagnosis: Bear is a 71-year-old male with pyogenic arthritis of L knee with previous L TKA hardware S/P L total knee arthroplasty revision on postoperative day 1. PMHX: All Active Problems? Closed left clavicular fracture (Acute 09/07/18) Septic arthritis of knee, left (Acute) Ulnar neuropathy of left upper extremity (Acute) S/P cubital tunnel release: 01/01/2022 Left carpal tunnel syndrome (Acute) S/P ECTR: 01/01/2022 Medical History? Acute GI bleeding Anemia CAD (coronary artery disease) Chronic lower back pain CKD (chronic kidney disease) COVID Diabetes mellitus type 2 in obese Erectile dysfunction Gout Salena's thyroiditis Heart attack Hx of myocardial infarction Hypercholesterolemia Hyperglycemia Hyperlipidemia Hypertension Hypomagnesemia Hypothyroidism Lumbar transverse process fracture Osteomyelitis Sepsis Thyroid nodule Ulnar neuropathy at wrist Surgical History? H/O arthroscopy of left knee History of foot surgery History of heart bypass surgery 2019 History of tonsillectomy Social History/Home Situation: Independent with all ADL performance without an assistive device.? Lives with fianc? in a private home.? 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 Equipment Owned/DME: SAM, SPC Subjective: Reports no pain in L knee. Denies headache, chest pain, and lightheadedness throughout session. Objective: General Observation: CHAO wrap to L knee. Cryocuff to L knee. TEDS on R leg. Fiancee present in room and participated in training with mobility performance/exercise performance. L LE in good alignment in the frontal plane, has L mild knee bending in the sagittal plane that patient is able to fix on command. Mental Status: Alert and oriented as to person, place, time, and purpose. Able to pay attention, focus, and respond appropriately. Pain: Denies ROM: Right Lower Extremity: Hip flexion WFL. Hip abduction WFL. Knee flexion WFL. Ankle dorsiflexion WFL. Ankle plantarflexion WFL. Left Lower Extremity: Hip flexion WFL. Hip abduction WFL. Knee flexion 25 degees to 100 degrees. -25 degrees. Ankle dorsiflexion WFL. Ankle plantarflexion WFL. Strength: Right Lower Extremity: Hip flexors 5/5. Hip abductors 5/5. Knee flexors 5/5. Knee extensors 5/5. Ankle dorsiflexors 5/5. Ankle plantarflexors 5/5. Left Lower Extremity: ? Hip flexors 4-/5. Hip abductors 4-/5. Knee flexors 3-/5. Knee extensors 3-/5. Ankle dorsiflexors 4-/5. Ankle plantarflexors 4/5. THERA EX: SLR x 10 to 80 degrees with mild extensor lag Gluteal sets x 10 Quadriceps sets x 10 Ankle Df/PF x 10 Seated marches x 10 LAQ x 10 ? Bed Mobility/Transfers: Supine to sit stand by assist Sit to stand with stand by assist with FWW Stand to sit with stand by assist with FWW Bed to reclining stand by assist with FWW Gait: Instructed patient with level surface ambulation of 150 feet using front-wheeled walker requiring stand by assist.? Step-to gait pattern. Good quad activation. Stairs: Up and down 6 x 4-inch steps and 4 x 6-inch steps while holding onto B rails with step-to gait pattern, stand by assist. Balance: Static Sitting: Normal Dynamic Sitting: Normal Static Standing: Fair Dynamic Standing: Fair Special Tests: Mobility Limitations Standardized Measure [facility] 6 clicks Basic Mobility Inpatient Short Form: Raw Score: 24 ? CMS Score: 0% deficit? ? ? Informed Consent/Education:? Patient has been updated about the PT plan of care and is in agreement of said paln to achieve goals below. Informed Consent/Education: Patient instructed in purpose of PT consult. Packet containing TKA exercise protocol has been given to patient. Education and training on initial set of exercises that can be done at home have been completed with patient. Assessment: Patient presents with clinical signs and symptoms consistent with current/admitting diagnoses that have resulted to mobility limitations, gait instability, generalized weakness, and impairment of motor control as demonstrated by the following impairment level findings: 1. Decreased strength to left knee major muscle groups 2. Impaired standing balance 3. Limitation of joint range of motion in left knee Impairments are contributing to the following functional limitations: 1. Inability to safely ambulate without assistive device 2. Increase completion time for mobility ADL performance 3. Increased fall risk Patient is assessed as a 20515 moderate complexity based on the following: History: 71-year-old male with impairment level findings, functional limitations, and past medical history as indicated above Examination: Demonstrable impairment in strength, balance, and mobility level with underlying impairments and functional limitations as documented above Presentation: Evolving Decision Makin moderate complexity Goals: N/A. PT evaluation and 1-2 treatment sessions only for functional mobility training using recommended AD and for HEP instruction. Plan of Care/Treatment Plan: N/A. PT evaluation and 1-2 treatment session only for functional mobility training using recommended AD and for HEP instruction. DISCHARGE RECOMMENDATIONS: [] ? Home with no services [] [] ? Home with services [] [X] ? Home with outpatient PT. Home when medically cleared by orthopedic surgeon. Patient will benefit from outpatient physical therapy in order to optimize functional mobility outcomes and facilitate return to independent community ambulation without an assistive device. [] ? SNF for continued rehabilitation [] [] ? Longterm Care [] [] ? SNF versus LTC based on ability to participate and progress [] TREATMENT CODE/TIME: 11208 x 20 minutes, 41446 x 16 minutes beginning at 12:28 PM. Thank you for the opportunity to participate in the care of this patient. Barb Araiza PT, DPT, CLT [facility] [place], [place]
--- NOTE | 2022-02-11 17:58 | ROE_ITS ---
Date of service: 02/11/22 Time of Service: 10:00 Operative Note Operative Note DATE OF PROCEDURE: 02/11/22 PRE-OP DIAGNOSIS: Septic Arthritis of Left Knee with Antibiotic Spacer POST-OP DIAGNOSIS: same PROCEDURE: Antibiotic spacer removal and revision knee arthroplasty of left knee SURGEON: Alex Rice WORD PROCESSOR: Dar Sanford ANESTHESIA TYPE: Spinal Refer to Anesthesia Record ESTIMATED BLOOD LOSS: 200 PATHOLOGY: none sent COMPLICATIONS: None Patient was transported to: PACU Patient's condition: stable Implants: 1. Depuy Attune Revision Femoral Component, Size 8 with 30mm cemented stem 2. Depuy Attune Revision Rotating Platform Tibial Component, Size 7, with 30 mm cemented stem 3. Depuy Attune 8x10mm RP/CRS Poly 4. Depuy Attune Patellar Component, Size 41mm Indications: I have seen Bear previously for his left knee which underwent irrigation debridement and antibiotic spacer placement for [place] septic infection and osteomyelitis. He has completed his antibiotics and continues to have some discomfort about the knee with this temporary antibiotic spacer. I recommended we proceed with removal of antibiotic spacer and placement of a knee replacement. I explained the risks of the procedure to include, but not limited to, bleeding, infection, pain, stiffness, fracture, damage to nerves and vessels, damage to muscles and tendons, loosening, need for repeat procedure, blood clot and cardiopulmonary demise. Despite these risks, Bear elected to proceed. Findings: The antibiotic spacer is able to remove with minimal difficulty. There is no significant bone loss. While there was thickened synovium there was no sign of active infection. Procedure Description: Bear was greeted in the preoperative holding area where the correct side was identified and marked. The consent was reviewed with the patient and signed. The history and physical was updated. All questions were answered. Preoperative mediacations were administered: Acetaminophen 1000mg, Celebrex 400mg, and Gabapentin 300mg. An adductor canal block was then administered by the anesthesia team in the PACU. Bear was taken back to the operating room. A spinal anesthestic was then administered. The patient was placed into the supine position on the operating room table. A nonsterile tourniquet was placed high onto the leg but only used for cementing. Posts were placed for positioning during the procedure. All bony prominences were well padded. Prophylactic antibiotics in the form of Cefazolin were administered. 1g of Tranxemic Acid was given intravenously within 30 minutes of incision. The right leg was then prepped with Chloraprep and draped in a standard fashion with impervious stockinette. A second prep with Chloraprep was performed prior to application of Iodine impregnated skin protection. A timeout to confirm correct identity, side and site, procedure, allergies, anesthesia, and medical concerns was performed. With the knee in some flexion, a midline incision was made overlying the knee. Full thickness skin flaps were raised once the extensor mechanism was encountered. These were raised medially and laterally. Any bleeding was controlled with electrocautery. Once the extensor mechanism was fully exposed, a medial parapatellar arthrotomy was performed in a flexed position. All bleeding from the arthrotomy and the geniculate arteries was coagulated. A medial subperiosteal peel was performed with electrocautery to the midcoronal plane. The fat pad was removed while keeping the patellar tendon protected. The anterior distal femur synovium was removed for later visualization. An aggressive synovectomy was performed of medial and lateral aspects of the knee using 2 Allis and 2 Nobleton's. This debulking was performed throughout the knee back to normal tissue and normal synovium and periosteum. The knee was then flexed with the patella everted. I then used flexible osteotomes to separate the femoral component. It took very little effort to separate the cement interface and the femoral component came out with the cement attached and without any bone loss. The intramedullary trini was also removed without difficulty. There is very minimal soft tissue seen on the bone and the bone was of great condition. This was debrided such that there is only bone remaining and all cement was removed. Attention was then turned to the tibia. The tibial cut surface was fully exposed. The tibial polyethylene was loose in the tibia. I was able to remove it without any significant difficulty. There was a cement left behind the knee which also removed quite easily. This left a relatively flat surface of the tibia. The cut was made previously and appear to be in good condition with minimal bone loss. The surface was debrided with a curette and rongeur of any soft tissue. Any necrotic or soft bone was also removed. The intramedullary trini was also removed. I used a wire brush and a curette to clean out the canals of both tibia and femur. A pulse lavage was also used to debride the surface of the femur and the tibia to ensure there is no soft tissue remaining. It was prepared first by placing the tibial tray on the tibial cut surface. This was pinned into position with appropriate rotation. The intramedullary space of the tibia was reamed for 30 mm stem in the proximal tibia was prepared and punched appropriately. The trial component, size 7, was then placed. The cut through guide was placed onto the femur. This had excellent positioning. This was pinned into position and once again prepared for a 30 mm stem. The notch cut was performed as well for the femoral box. The trial components were left in place and the knee was taken through range of motion with a size 10 mm polyethylene. This provided excellent extension. There is excellent stability with both varus and valgus stress in extension. However, there was some instability with mid flexion, mostly with valgus stress. At flexion there also was some mild instability of about 3 to 4 mm. This was felt to be acceptable at this position rather than changing rotation and augmentation of the femur. The knee was then brought into extension and the patella was measured as 28mm. Using the patellar clamp and cut guide, this was resected to a flat surface with at least 13mm of thickness remaining. The size 41 patella fit the best. This was oriented and then clamped into position. The lugs were drilled. The trial components were removed. The final components, except for the polyethylene were opened on the back table. The periosteal and capsular tissues, especially posteriorly, around the knee were then systematically injected with a periarticular cocktail consisting of 246mg of Ropivacaine, 0.5mg of Epinephrine, 0.08mg of Clonidine, and 30mg of Ketorolac, diluted to 100cc.. The tourniquet was then inflated to 275mmHg. Cement restrictors were placed in both the tibia and the femur. The knee was thoroughly irrigated with a pulse lavage and dried. On the back table, with the implants opened, the cement was mixed. 3 batches of medium viscosity cement augmented with 3 g of vancomycin total were prepared with vacuum assistance. After the cement was ready, some was placed on to the back side of the tibial component at the keel. Additional cement was placed on of the backside of the femur and around the box of the femur. Using a cement gun the canals were filled and cement was placed onto the cut surface of the tibia and the femur, manually pressurized. The tibial component was then inserted into the cut surface and impacted into position. Excess cement was removed and the component was reimpacted. Again, excess cement was removed and our attention was then turned to the femur. The femoral cut surface was once again dried and cement was manually impacted into the cut surface. The femoral component was lined and impacted. Excess cement was removed. It was ensured to be down against the cut surface. The trial polyethylene was then inserted and the leg was brought out into full extension for the duration of the cement curing process, approximately 18min. Cement was lastly manually impacted into the cut surface of the patella and the patellar button was clamped into position and held. During this process attention was turned to the gutters of the knee and for all interfaces for any excess cement. While the cement was hardening, the knee was irrigated with Surgiphor Betadine solution. This was allowed to sit in the knee for 3 minutes and then it was thoroughly irrigated with saline. After the cement had finally cured, approximately 18min, the clamp was removed from the patella and the knee was taken through range of motion. A size 10mm polyethylene component provided the best range of motion and stability with less than 2mm gapping with medial and lateral stress and full extension without significant hyperextension. The patella was tracking with a no-thumbs technique. The trial poly was removed and once again the knee was checked for any loose, excess, or errant cement. The poly component was then inserted and impacted into position after cleaning and drying the tibial tray. The capsule was then reapproximated with a No. 1 Vicryl at multiple locations. The capsule was finally closed with a No. 2 Stratafix, barbed suture. The tourniquet was then released and the arthrotomy appeared watertight without significant bleeding. Deep tissues were then reapproximated with 0 Vicryl and 2-0 Monocryl. The skin was closed with a running 3-0 Monocryl in a subcuticular fashion. This was reinforced with skin glue. A Mepilex silver dressing was applied along with a [id number] CHAO wrap. A CryoCuff was applied. Bear was transferred to the hospital bed without difficulty an suffering no apparent complication. Bear has a good prognosis. Physical therapy will start today and without restrictions, weight-bearing as tolerated. Aspirin 81mg BID will be used for DVT prophylaxis in addition to his baseline clopidogrel.
== END 2022-02-11 14:56 | disposition short-term general hospital (02) ==
LOC: PDS 12:17 → DSU 02-12 17:08 → PDS 02-12 17:08
PROVIDERS: PCP Physician Assistant Medical; Visit Provider Student in an Organized Health Care Education/Training Program
PROC: (CPT 27487; principal; 2022-02-11 07:30)
DX: M00.9 Pyogenic arthritis, unspecified (principal); T84.54XA Infection and inflammatory reaction due to internal left knee prosthesis, initial encounter; D64.9 Anemia, unspecified; I25.10 Atherosclerotic heart disease of native coronary artery without angina pectoris; G89.29 Other chronic pain; M54.50 Low back pain, unspecified; E11.22 Type 2 diabetes mellitus with diabetic chronic kidney disease; N18.9 Chronic kidney disease, unspecified; M10.9 Gout, unspecified; E06.3 Autoimmune thyroiditis; I25.2 Old myocardial infarction; E78.00 Pure hypercholesterolemia, unspecified; Z87.891 Personal history of nicotine dependence; G89.18 Other acute postprocedural pain; M25.562 Pain in left knee; Z79.4 Long term (current) use of insulin; Z79.84 Long term (current) use of oral hypoglycemic drugs
CPT/HCPCS: 27487; C1776; 76942; 97162; 97530; J0690; J2250; J2405

== ENCOUNTER → 2022-02-19 12:09 | Outpatient (BNVA) | payer MEDICARE, SELFPAY | PROVIDERS: PCP Physician Assistant Medical; Referring Provider Physician Assistant Medical; Visit Provider Physician Assistant | DX: Z47.89 Encounter for other orthopedic aftercare (principal); Z96.652 Presence of left artificial knee joint ==

== ENCOUNTER → 2022-02-21 08:25 | Outpatient (BNVA) | payer MEDICARE, SELFPAY | PROVIDERS: PCP Physician Assistant Medical; Referring Provider Physician Assistant Medical; Visit Provider Physician Assistant | DX: Z47.89 Encounter for other orthopedic aftercare (principal); Z96.652 Presence of left artificial knee joint ==

== ENCOUNTER 2022-02-24 11:39 | Outpatient (CLI) | payer MEDICARE, MEDICAID, SELFPAY ==
--- NOTE | 2022-02-24 10:00 | DI.RAD_ITS ---
Exam(s) XR KNEE LT 1V EXAM: XR KNEE LT 1V CLINICAL HISTORY: S/P L TKA. TECHNIQUE: 2D digital imaging was performed. COMPARISON: CR,XR XR KNEE LT 3V AP,LAT,DRAKE from 08/30/2021 FINDINGS: Single lateral view: Position and alignment of the components of the recently placed left knee revision prosthesis is sati sfactory. No obvious fracture or loosening evident on this lateral view.. IMPRESSION: DATA REPOSITORY: RADIATION DOSE DELIVERED:
--- NOTE | 2022-02-24 10:00 | DI.RAD_ITS ---
Exam(s) XR STANDING ALIGNMENT EXAM: XR STANDING ALIGNMENT CLINICAL HISTORY: S/P L TKA. TECHNIQUE: 2D digital imaging was performed. COMPARISON: CR XR FEMUR LT from 09/07/2018 CR,XR XR KNEE LT 3V AP,LAT,DRAKE from 08/30/2021 FINDINGS: 3 views There has been left knee revision. There has beenplacement of a left knee prosthesis with stabilization bar. Appears to be in satisfact ory position alignment. No loosening. No fractures. Healed fracture site in the distal half of the left tibia and fibula again noted. Moderate narrowing of both hip joints again noted. Mild narrowi ng of the right knee joint. No osseous lesions. No radiographic evidence of osteomyelitis. IMPRESSION: As above. DATA REPOSITORY: RADIATION DOSE DELIVERED:
== END 2022-02-24 11:40 | disposition home or self-care (01) ==
LOC: DIORS 11:39
PROVIDERS: PCP Physician Assistant Medical; Referring Provider Physician Assistant Medical; Visit Provider Physician Assistant
DX: Z96.652 Presence of left artificial knee joint (principal); Z47.89 Encounter for other orthopedic aftercare
CPT/HCPCS: 73560; 77073

== ENCOUNTER → 2022-02-28 09:40 | Outpatient (BNVA) | payer MEDICARE, SELFPAY | PROVIDERS: PCP Physician Assistant Medical; Referring Provider Physician Assistant Medical; Visit Provider Student in an Organized Health Care Education/Training Program | DX: Z47.1 Aftercare following joint replacement surgery (principal); Z96.652 Presence of left artificial knee joint ==

== ENCOUNTER → 2022-03-31 09:23 | Outpatient (BNVA) | payer MEDICARE, SELFPAY | PROVIDERS: PCP Physician Assistant Medical; Referring Provider Physician Assistant Medical; Visit Provider Student in an Organized Health Care Education/Training Program | DX: Z47.1 Aftercare following joint replacement surgery (principal); Z96.652 Presence of left artificial knee joint ==

== ENCOUNTER 2022-05-05 17:51 | Outpatient (REF) | payer MEDICARE, SELFPAY ==
[2022-05-05 16:21] LABS: Abs Immature Grans 0.02 10^3/uL (0.0-0.06); Absolute Basophil Count 0.09 10^3/uL (0.0-0.2); Absolute Eosinophil Count 0.31 10^3/uL (0.0-0.7); Absolute Lymphocyte Count 1.01 10^3/uL (1.2-3.4); Absolute Monocyte Count 0.88 10^3/uL (0.1-0.8); Basophils % 1.2; HCT 42.4 % (40.0-50.0); HGB 13.8 g/dL (13.5-17.5); Immature Grans % 0.3; Lymphocytes % 13.1; MCH 28.7 pg (27.0-33.0); MCHC 32.5 % (32.0-36.0); MCV 88 fL (80-95); MPV 9.2 fL (8.0-11.0); Monocytes % 11.4; Platelet Count 279 10^3/uL (130-400); RBC 4.81 10^6/uL (4.36-5.78); RDW 13.9 % (11.8-14.1); WBC 7.71 10^3/uL (4.4-10.8)
[2022-05-05 17:04] LABS: ALT 26 U/L (16-63); AST 19 U/L (15-37); Albumin 4.1 g/dL (3.4-5.0); Alkaline Phosphatase 73 U/L (46-116); Anion Gap 9.1 mmol/L (3-11); BUN 36 mg/dL (7-18); Bilirubin, Total 0.3 mg/dL (0.2-1.0); CO2 28.9 mmol/L (21.0-32.0); Calcium 9.4 mg/dL (8.5-10.1); Chloride 103 mmol/L (98-107); Estimated GFR 35.46 (mL/min/1.73m2); Glucose 162 mg/dL (74-106); Hemoglobin A1C 6.6 % (<5.7); Magnesium 2.1 mg/dL (1.8-2.4); Potassium 4.5 mmol/L (3.5-5.1); Sodium 141 mmol/L (136-145); TSH 3.36 uIU/mL (0.36-3.74); Uric Acid 10.4 mg/dL (3.5-7.2)
== END 2022-05-05 17:52 | disposition home or self-care (01) ==
LOC: NCHCN 17:51
PROVIDERS: PCP Physician Assistant Medical; Visit Provider Physician Assistant Medical
DX: E11.22 Type 2 diabetes mellitus with diabetic chronic kidney disease (principal); M10.9 Gout, unspecified; D64.9 Anemia, unspecified
CPT/HCPCS: 80053; 83036; 83735; 84443; 84550; 85025

== ENCOUNTER 2022-06-04 12:17 | Outpatient (REF) | payer MEDICARE, SELFPAY ==
[2022-06-04 15:57] LABS: HCT 42.1 % (40.0-50.0); HGB 13.6 g/dL (13.5-17.5); MCH 28.8 pg (27.0-33.0); MCHC 32.3 % (32.0-36.0); MCV 89 fL (80-95); MPV 9.8 fL (8.0-11.0); Platelet Count 202 10^3/uL (130-400); RBC 4.72 10^6/uL (4.36-5.78); RDW 14.6 % (11.8-14.1); RDW-SD 46.9 fL; WBC 8.14 10^3/uL (4.4-10.8)
[2022-06-04 17:38] LABS: Anion Gap 4.6 mmol/L (3-11); BUN 38 mg/dL (7-18); CO2 30.4 mmol/L (21.0-32.0); Chloride 105 mmol/L (98-107); Estimated GFR 35.46 (mL/min/1.73m2); Glucose 169 mg/dL (74-106); Magnesium 1.9 mg/dL (1.8-2.4); Potassium 4.6 mmol/L (3.5-5.1); Sodium 140 mmol/L (136-145); Uric Acid 7.6 mg/dL (3.5-7.2)
== END 2022-06-04 12:18 | disposition home or self-care (01) ==
LOC: NCHCN 12:17
PROVIDERS: PCP Physician Assistant Medical; Visit Provider Physician Assistant Medical
DX: M10.9 Gout, unspecified (principal); N18.30 Chronic kidney disease, stage 3 unspecified; D64.9 Anemia, unspecified; E83.42 Hypomagnesemia
CPT/HCPCS: 80048; 85027; 83735; 84550

== ENCOUNTER 2022-07-25 11:19 | Outpatient (REF) | payer MEDICARE, SELFPAY ==
[2022-07-25 15:54] LABS: ALT 33 U/L (16-63); AST 21 U/L (15-37); Albumin 3.7 g/dL (3.4-5.0); Alkaline Phosphatase 69 U/L (46-116); Anion Gap 10.9 mmol/L (3-11); BUN 42 mg/dL (7-18); Bilirubin, Total 0.5 mg/dL (0.2-1.0); CO2 25.1 mmol/L (21.0-32.0); Calcium 8.8 mg/dL (8.5-10.1); Calculated LDL 79 mg/dL (<100); Chloride 105 mmol/L (98-107); Cholesterol 149 mg/dL (<200); Estimated GFR 35.24 (mL/min/1.73m2); Glucose 219 mg/dL (74-106); HDL Cholesterol 40 mg/dL (40-60); Potassium 4.6 mmol/L (3.5-5.1); Sodium 141 mmol/L (136-145); Total Protein 7.3 g/dL (6.4-8.2); Triglyceride 150 mg/dL (<150)
[2022-07-25 19:32] LABS: Hemoglobin A1C 7.3 % (<5.7)
== END 2022-07-25 11:20 | disposition home or self-care (01) ==
LOC: NCHCN 11:19
PROVIDERS: PCP Physician Assistant Medical; Visit Provider Nurse Practitioner Family
DX: E11.22 Type 2 diabetes mellitus with diabetic chronic kidney disease (principal); N18.30 Chronic kidney disease, stage 3 unspecified; E78.5 Hyperlipidemia, unspecified
CPT/HCPCS: 80053; 80061; 83036

== ENCOUNTER 2022-09-15 01:27 | Outpatient (CLI) | payer MEDICARE, MEDICAID, SELFPAY ==
--- NOTE | 2022-09-15 11:45 | DI.US_ITS ---
Exam(s) US CAROTID EXAM: US CAROTID CLINICAL HISTORY: CHANGES IN RETINAL VASCULAR APPEARANCE CHRISTA, VISUAL CHANGES, ? TIA, G45.9. TECHNIQUE: Ultrasound carotids performed using grayscale, color-flow, and spectral Doppler imaging. COMPARISON: No exams were available for comparison FINDINGS: RIGHT CAROTID ARTERY: Plaque: Noncalcified plaque proximal internal carotid artery. Small focus of calcified plaque. LEFT CAROTID ARTERY: Plaque: Mild foci of calcific plaque VERTEBRAL ARTERIES: Antegrade flow. Measurements: R Bulb: 46.8cm/s PS / 10.4cm/s ED R CCA: 65cm/s PS / 16.5cm/s ED R ECA: 125.2cm/s PS / 19.3cm/s ED R ICA Prox: 145.3cm/s PS / 30.3cm/s ED R ICA Mid: 94.2cm/s PS / 24.8cm/s ED R ICA Distal: 66.9cm/s PS /24cm/s ED R Vert: 39.5cm/s PS / 0cm/s ED R SVR: 2.2 R DVR: 1.8 L Bulb: 61.5cm/s PS / 16cm/s ED L CCA: 65.8cm/s PS / 17.7cm/s ED L ECA: 60.6cm/s PS / 8.2cm/s ED L ICA Prox: 112.4cm/s PS / 23cm/s ED L ICA Mid: 77.9cm/s PS / 8.1cm/s ED L ICA Distal: 82.8cm/s PS / 22.8cm/s ED L Vert: 55.8cm/s PS / 19.1cm/s ED L SVR: 1.7 L DVR: 1.3 IMPRESSION: 50-69 percent stenosis in the proximal right internal carotid artery. No significant stenosis on the left. Criteria for Carotid Stenosis: Normal: ICA PSV <125 cm/s no plaque or intimal thickening is visible. <50% stenosis: ICA PSV <125 cm/s and plaque or intimal thickening is visible. 50-69% stenosis: ICA PSV is 125-250 cm/s and plaque is visible. >70% stenosis to near occlusion: ICA PSV >250 cm/s with visible plaque and luminal narrowing. DATA REPOSITORY:
== END 2022-09-15 01:47 ==
PROVIDERS: PCP Physician Assistant Medical; Visit Provider Physician Assistant Medical
DX: I65.21 Occlusion and stenosis of right carotid artery (principal)
CPT/HCPCS: 93880

== ENCOUNTER 2022-11-04 14:56 | Outpatient (REF) | payer MEDICARE, MEDICAID, SELFPAY ==
[2022-11-04 15:21] LABS: Anion Gap 7.1 mmol/L (3-11); BUN 27 mg/dL (7-18); CO2 29.9 mmol/L (21.0-32.0); CREATININE 1.6 mg/dL (0.70-1.30); Chloride 100 mmol/L (98-107); Estimated GFR 46.06 (mL/min/1.73m2); Glucose 141 mg/dL (74-106); Potassium 4.6 mmol/L (3.5-5.1); Sodium 137 mmol/L (136-145)
[2022-11-04 15:28] LABS: Hemoglobin A1C 7.1 % (<5.7)
== END 2022-11-04 14:57 | disposition home or self-care (01) ==
LOC: NCHCN 14:56
PROVIDERS: PCP Physician Assistant Medical; Visit Provider Physician Assistant Medical
DX: E11.9 Type 2 diabetes mellitus without complications (principal); N18.30 Chronic kidney disease, stage 3 unspecified
CPT/HCPCS: 80048; 83036; 84550

== ENCOUNTER 2023-02-16 10:47 | Outpatient (CLI) | payer MEDICARE, MEDICAID, SELFPAY ==
--- NOTE | 2023-02-16 10:15 | DI.RAD_ITS ---
Exam(s) XR KNEE LT 2V AP,LAT EXAM: XR KNEE LT 2V AP,LAT CLINICAL HISTORY: ANNUAL F/U S/P L REVISION TKA. TECHNIQUE: 2D digital imaging was performed. Three views. COMPARISON: CR XR KNEE LT 1V from 02/24/2022 FINDINGS: BONES: No acute fracture is present. No bony destructive lesion is seen. JOINTS: There has been no change in the alignment of revised knee prosthesis. No joint effusion is s een. SOFT TISSUE: Vascular calcifications. IMPRESSION: stable appearance of knee prosthesis. DATA REPOSITORY: RADIATION DOSE DELIVERED:
== END 2023-02-16 10:48 | disposition home or self-care (01) ==
LOC: DIORS 10:47
PROVIDERS: PCP Physician Assistant Medical; Visit Provider Student in an Organized Health Care Education/Training Program
DX: Z96.652 Presence of left artificial knee joint (principal); Z47.1 Aftercare following joint replacement surgery; Z96.651 Presence of right artificial knee joint
CPT/HCPCS: 99213; 73560

== ENCOUNTER 2023-05-22 17:19 | Outpatient (REF) | payer MEDICARE, MEDICAID, SELFPAY ==
[2023-05-22 16:39] LABS: Abs Immature Grans 0.02 10^3/uL (0.0-0.06); Absolute Basophil Count 0.08 10^3/uL (0.0-0.2); Absolute Eosinophil Count 0.35 10^3/uL (0.0-0.7); Absolute Lymphocyte Count 0.85 10^3/uL (1.2-3.4); Absolute Monocyte Count 0.99 10^3/uL (0.1-0.8); Absolute Neutrophil Count 5.41 10^3/uL (1.2-6.7); Eosinophils % 4.5; HCT 41.1 % (40.0-50.0); HGB 12.9 g/dL (13.5-17.5); Immature Grans % 0.3; MCH 28.3 pg (27.0-33.0); MCHC 31.4 % (32.0-36.0); MCV 90 fL (80-95); MPV 9.9 fL (8.0-11.0); Monocytes % 12.9; Neutrophils % 70.3; Platelet Count 249 10^3/uL (130-400); RBC 4.56 10^6/uL (4.36-5.78); RDW 15.2 % (11.8-14.1); RDW-SD 50.1 fL
[2023-05-22 17:09] LABS: ALT 32 U/L (16-63); AST 20 U/L (15-37); Albumin 3.7 g/dL (3.4-5.0); Alkaline Phosphatase 71 U/L (46-116); BUN 36 mg/dL (7-18); Bilirubin, Total 0.5 mg/dL (0.2-1.0); CREATININE 1.7 mg/dL (0.70-1.30); Calculated LDL 92 mg/dL (<100); Chloride 106 mmol/L (98-107); Cholesterol 148 mg/dL (<200); Estimated GFR 42.83 (mL/min/1.73m2); Glucose 171 mg/dL (74-106); HDL Cholesterol 36 mg/dL (40-60); Hemoglobin A1C 7.3 % (<5.7); Potassium 4.2 mmol/L (3.5-5.1); Sodium 141 mmol/L (136-145); TSH 4.97 uIU/Ml (0.36-3.74); Total Protein 7.5 g/dL (6.4-8.2); Triglyceride 100 mg/dL (<150)
[2023-05-22 17:28] LABS: Uric Acid 7.8 mg/dL (3.5-7.2)
== END 2023-05-22 17:20 | disposition home or self-care (01) ==
LOC: NCHCN 17:19
PROVIDERS: PCP Physician Assistant Medical; Referring Provider Physician Assistant Medical; Visit Provider Physician Assistant Medical
DX: E11.9 Type 2 diabetes mellitus without complications (principal); N18.30 Chronic kidney disease, stage 3 unspecified; E06.3 Autoimmune thyroiditis; D64.9 Anemia, unspecified; I25.10 Atherosclerotic heart disease of native coronary artery without angina pectoris; E78.5 Hyperlipidemia, unspecified; M10.9 Gout, unspecified
CPT/HCPCS: 80053; 80061; 83036; 84439; 84443; 84550; 85025

== ENCOUNTER 2023-10-15 18:55 | Outpatient (REF) | payer MEDICARE, MEDICAID, SELFPAY ==
[2023-10-15 18:07] LABS: ALT 40 U/L (16-63); AST 21 U/L (15-37); Albumin 3.8 g/dL (3.4-5.0); Alkaline Phosphatase 71 U/L (46-116); Anion Gap 8.8 mmol/L (3-11); BUN 33 mg/dL (7-18); Bilirubin, Total 0.54 mg/dL (0.2-1.0); CO2 28.2 mmol/L (21.0-32.0); CREATININE 1.6 mg/dL (0.70-1.30); Calcium 8.6 mg/dL (8.5-10.1); Chloride 104 mmol/L (98-107); Estimated GFR 45.78 (mL/min/1.73m2); Glucose 225 mg/dL (74-106); Potassium 4.4 mmol/L (3.5-5.1); Sodium 141 mmol/L (136-145); TSH (W/Ref FT4) 2.22 uIU/mL (0.36-3.74); Total Protein 6.9 g/dL (6.4-8.2); Uric Acid 6.8 mg/dL (3.5-7.2)
[2023-10-15 18:12] LABS: Hemoglobin A1C 8.2 % (<5.7)
--- OUTSIDE RECORDS SUMMARY | 2023-10-15 18:58 | XMS_ITS | Encounter Summary ---
Author Organization [facility] Address [address] [place] [address] Care Team Providers Care Administrative Receptionist Name Role Phone Antonella Lucas PA-C Primary Care Provider + Encounter Details Date Type Department Care Team (Late st Contact Info) Description 05/15/2021 Lab Requisition [facility] Pathology & Laboratory Medicine - [address] [id number] Outr Resulting Lab, Provider Social History Tobacco Use Types Packs/Day Years Used Date Smoking Tobacco: Never Assessed Interpersonal Safety Answer Date Record ed Physically Hurt Never 04/25/2020 Verbally Threaten Not on file 04/25/2020 Sex and Gender Information Value Date Recorded Sex Assigned at Not on file Gender Identity Male 01/28/2022 13:10 EST Sexual Orientation Not on file documented as of this encounter Plan of Treatment Not on file documented as of this encounter Procedures Procedure Name Priority Date/Time Associated Diagnosis Comments IGE Routine 05/15/2021 6:50 EST documented in this encounter Results * IGE (05/15/2021 6:50 EST) IgE 47 <158 IU/mL 05/17/2021 9:48 EST [facility] Blood VENOUS BLOOD / Unknown 05/15/2021 6:50 EST 05/15/2021 16:44 EST Provider Outr Resulting Lab CHEMISTRY & BLOOD GAS ORDERABLES [facility] [address] [place] [address] documented in this encounter Visit Diagnoses Not on filedocumented in this encounter Care Teams Administrative Receptionist Relationship Specialty Start Date End Date Antonella Lucas PA-C [address] [place] [phone] PCP - General 01/28/22 documented as of this encounter
--- OUTSIDE RECORDS SUMMARY | 2023-10-15 18:58 | XMS_ITS | Encounter Summary ---
Author Organization [facility] Address [address] [place] [address] Care Team Providers Care Ms Sql Server Developer Name Role Phone Antonella Lucas PA-C Primary Care Provider + Encounter Details Date Type Department Care Team (Late st Contact Info) Description 06/13/2022 15:00 EDT Phlebotomy Only [facility] 2 Phlebotomy [address] [place], [place] [phone] Fork Truck Driver, Acc Phlebotomy Retinal venous tortuosity Social History Tobacco Use Types Packs/Day Years [...] Procedure Name Priority Date/Time Associated Diagnosis Comments SPEP WITH IMMUNOTYPING PERFORMABLE Routine 06/13/2022 15:05 EDT Retinal venous tortuosity SPEP WITH IMMUNOTYPING Routine 06/13/2022 15:05 EDT Retinal venous tortuosity PROTEIN, TOTAL Routine 06/13/2022 15:05 EDT Retinal venous tortuosity documented in this encounter Results * (ABNORMAL) SPEP WITH IMMUNOTYPING PERFORMABLE (06/13/2022 15:05 EDT) Albumin % 62.3 55.8 - 66.1 % 06/16/2022 15:07 [facility] Albumin g/dL 4.4 3.6 - 5.2 g/dL 06/16/2022 15:07 [facility] Alpha-1 % 5.0(H) 2.9 - 4.9 % 06/16/2022 15:07 [facility] Alpha-1 g/dL 0.40 0.15 - 0.40 g/dL 06/16/2022 15:07 [facility] Alpha-2 % 9.0 7.1 - 11.8 % 06/16/2022 15:07 [facility] Alpha-2 g/dL 0.60 0.50 - 1.00 g/dL 06/16/2022 15:07 [facility] Beta % 11.6 8.4 - 13.1 % 06/16/2022 15:07 [facility] Beta g/dL 0.80 0.60 - 1.20 g/dL 06/16/2022 15:07 [facility] Gamma % 12.1 11.1 - 18.8 % 06/16/2022 15:07 [facility] Gamma g/dL 0.80 0.60 - 1.60 g/dL 06/16/2022 15:07 [facility] SPEP Comment No apparent monoclonal protein seen on serum electrophoresis 06/16/2022 15:07 [facility] Comment:See scanned/suppleme ntary report. Immunotyping , Serum Current Interpretation: Negative for monoclonal immunoglobulins. Reviewed by: Dar Freeman MD, PhD 06/16/2022 13:39. 06/16/2022 15:07 [facility] Total Protein 7.0 6.3 - 8.2 g/dL 06/16/2022 15:07 [facility] Blood VENOUS BLOOD / Unknown Venipuncture / Unknown 06/13/2022 15:05 EDT 06/13/2022 15:15 EDT Shaquille Vasquez MD CHEMISTRY & BLOOD GA S ORDERABLES Performing Organization Address [facility] Co de Phone Number [facility] [address] [place] [address] * PROTEIN, TOTAL (06/13/2022 15:05 EDT) Blood VENOUS BLOOD / Unknown Venipuncture / Unknown 06/13/2022 15:05 EDT 06/13/2022 15:15 EDT Shaquille Vasquez MD CHEMISTRY & BLOOD GA S ORDERABLES Performing Organization Address [facility] Co de Phone Number [facility] [address] [place] [address] documented in this encounter Visit Diagnoses Diagnosis 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
--- OUTSIDE RECORDS SUMMARY | 2023-10-15 18:58 | XMS_ITS | Referral Summary ---
Author Organization [facility] Address [address] [place] [address] Care Team Providers Care Licensed Therapist Name Role Phone Antonella Lucas PA-C Primary Care Provider + Allergies Active Allergy Reactions Criticality Noted Date Comments Bee Venom Protein (Honey Bee) Anaphylaxis High 01/25 Lisinopril 06/13/2022 Medications Medication Sig Dispensed Refills Start Date End Date Status celecoxib (CELEBREX) 100 mg capsule Take 100 mg by mouth 2 times daily. Active metFORMIN (GLUCOPHAGE) 500 mg tablet Take 500 mg by mouth 2 times daily with breakfast and dinner. Active clopidogreL (PLAVIX) 75 mg tablet Take 75 mg by mouth daily. Active metoprolol TARtrate (LOPRESSOR) 50 mg tablet Take 50 mg by mouth 2 times daily. Active gabapentin (NEURONTIN) 100 mg capsule Take 100 mg by mouth 3 times daily. Active levothyroxine (SYNTHROID) 25 mcg tablet Take by mouth daily. Acti ve LANTUS SOLOSTAR U-100 INSULIN 100 unit/mL (3 mL) injection pen INJECT 24 UNITS SUBCUTANEOUSLY AT BEDTIME INCREASE BY 2 UNITS EVERY 3 DAYS UNTIL FASTING BLOOD SUGAR IS BELOW 150 05/13/2022 Active NOVOLOG FLEXPEN U-100 INSULIN 100 unit/mL (3 mL) injectable pen INJECT UNDER THE SKIN FOUR TIMES DAILY ON SLIDING SCALE DIRECTED. MAXIMUM DAILY DOSE IS 60 UNITS 04/10/2022 Activ e allopurinoL (ZYLOPRIM) 100 mg tablet Take 100 mg by mouth daily. 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 06/13/2022 Retinal venous tortuosity 06/13/2022 Nuclear senile cataract of both eyes 06/13/2022 Social History Tobacco Use Types Packs/Day Years Used Date Smoking Tobacco: Never Assessed Interpersonal Safety Answer Date Record ed Physically Hurt Never 04/25/2020 Verbally Threaten Not on file 04/25/2020 Sex and Gender Information Value Date Recorded Sex Assigned at Not on file Gender Identity Male 01/28/2022 13:10 EST Sexual Orientation Not on file Plan of Treatment Not on file Care Teams Licensed Therapist Relationship Specialty Start Date End Date Antonella Lucas PA-C [address] [place] [phone] PCP - General 01/28/22
--- OUTSIDE RECORDS SUMMARY | 2023-10-15 18:58 | XMS_ITS | Encounter Summary ---
Author Organization [facility] Address [address] [place] [address] Care Team Providers Care Slipman Name Role Phone Antonella Lucas PA-C Primary Care Provider + Encounter Details Date Type Department Care Team (Late st Contact Info) Description 08/08/2021 Lab Requisition [facility] Pathology & Laboratory Medicine - [address] [phone] Outr Resulting Lab, Provider Social History Tobacco [...] Procedure Name Priority Date/Time Associated Diagnosis Comments HIGH SENSITIVITY C-REACTIVE PROTEIN (CARDIOVASCULAR DISEASE) Routine 08/07/2021 16:15 EDT documented in this encounter Results * HIGH SENSITIVITY C-REACTIVE PROTEIN (CARDIOVASCULAR DISEASE) (08/07/2021 16:15 EDT) High Sensitivity CRP 11.57 See Note mg/L 08/08/2021 17:57 EDT [facility] Comment: Reference Range: ??Low Risk: ? <1.0 mg/L ??Average Risk: ?? 1.0 - 3.0 mg/L ??High Risk: ?>3.0 mg/L ??Indeterminate*: >10.0 mg/L ??*May be an indication of another source of inflammation or infection Blood VENOUS BLOOD / Unknown 08/07/2021 16:15 EDT 08/08/2021 17:31 EDT Provider Outr Resulting Lab CHEMISTRY & BLOOD GAS ORDERABLES [facility] [address] [place] [address] documented in this encounter Visit Diagnoses Not on filedocumented in this encounter Care Teams Slipman Relationship Specialty Start Date End Date Antonella Lucas PA-C [address] [place] [phone] PCP - General 01/28/22 documented as of this encounter
--- OUTSIDE RECORDS SUMMARY | 2023-10-15 18:58 | XMS_ITS | Clinical Summary ---
Author Organization [facility] Address [address] [place] [address] Care Team Providers Care Civil Designer Name Role Phone Antonella Lucas PA-C Primary [...] 13:10 EST Sexual Orientation Not on file Obstetrics History Plan of Treatment Health Maintenance Due Date Last Done Comments Hepatitis C Screen 1950 RSV Immunization ( o r 60+ Years) (1 - 1-dose 60+ series) 2012 Fall Risk Screening 2017 COVID-19 Vaccine (2022-24 season) 2022 Care Teams Civil Designer Relationship Specialty Start Date End Date Antonella Lucas PA-C [address] [place] [phone] PCP - General 01/28/22
--- OUTSIDE RECORDS SUMMARY | 2023-10-15 18:58 | XMS_ITS | Encounter Summary ---
Author Organization [facility] Address [address] [place] [address] Care Team Providers Care Director Of Consumer Marketing Name Role Phone Antonella Lucas PA-C Primary Care Provider + Reason for Visit * Reason Comments Eye Problem * Prior Authorization (Routine) - Authorized Specialty Diagnoses / Procedures Referred By Nataliia hurt Referred To Contact Diagnoses CRVO (central retinal vein occlusion) Procedures SD INJECT INTRAVITREAL PHARMCOLOGIC SD AFLIBERCEPT INJECTION SD BEVACIZUMAB INJECTION [facility] [address] [place] [phone] [place] [phone] [address] [place] [id number] Referral ID Status Reason Start Date Expiration Date V isits Requested Visits Authorized [id number] Authorized 2 2 Encounter Details Date Type Department Care Team (Late st Contact Info) Description 06/13/2022 13:15 EDT Office Visit [facility] Ophthalmology - [address] [address] Shaquille Vasquez MD [address] [place] [address], [facility] [address] [place] [phone] Social History Tobacco Use Types Packs/Day Years Used Date Smoking Tobacco: Never Assessed Interpersonal Safety Answer Date Record ed Physically Hurt Never 04/25/2020 Verbally Threaten Not on file 04/25/2020 Sex and Gender Information Value Date Recorded Sex Assigned at Not on file Gender Identity Male 01/28/2022 13:10 EST Sexual Orientation Not on file documented as of this encounter Progress Notes * Shaquille Vasquez MD - 06/13/2022 1315 EDT Chief Complaint Patient presents with ??? Eye Problem Comments Referred by Stacey Mitchell OD of [facility] for impending CRVO left eye and NPDR both eyes. DMwith A1C 6.5. Pt has no history of eye surgery. No eye drop use. Wears glasses. Feels he sees well HPI Location: Both eyes Pain: 0 - No pain Quality: Severity: Duration: Months Timing: Constant Lasts: Continuous Context: Possible CRVO left eye, NPDR both eyes Modifying factors: DM Associated Signs & Symptoms: No vision problems per pt Visual Fluctuations: None Attestation: Base Eye Exam Visual Acuity (Snellen - Linear) Right Left Dist cc 20/60 -2 20/30 Dist ph cc 20/30 -2 Correction: Glasses Tonometry (Applanation, 13:58) Right Left Pressure 20 18 Pupils Dark Light APD Right 4 3 None Left 4 3 None Extraocular Movement Right Left Full Full Neuro/Psych Oriented x3: Yes Mood/Affect: Normal Dilation Both eyes: Tropicamide 0.5% @ 13:58 Shallow angles Slit Lamp and Fundus Exam Slit Lamp Exam Right Left Lids/Lashes Normal Normal Conjunctiva/Sclera White and quiet White and quiet Cornea Clear Clear Anterior Chamber Deep and quiet Deep and quiet Iris Round and reactive Round and reactive Lens 1+ Nuclear sclerosis 1+ Nuclear sclerosis Anterior Vitreous Clear Fundus Exam Right Left Disc no edema no edema C/D Ratio 0.1 0.1 Macula Large, confluent Drusen, Retinal pigment epithelial mottling Large, confluent Drusen, Retinal pigment epithelial mottling Vessels Normal Tortuous, Dilation Periphery attached, no heme attached, one peripheral heme superior quadrant Please refer to large retinal drawing. IMAGING: OCT, Retina - OU - Both Eyes Right Eye Quality was good. Progression has no prior data. Findings include normal foveal contour. Left Eye Quality was good. Progression has no prior data. Findings include normal foveal contour. Notes Drusen, no fluid or atrophy, both eyes OCT-A no capillary loss or CNVM DIAGNOSES: 1. Intermediate stage nonexudative age-related macular degeneration of both eyes OCT, RETINA - OU -BOTH EYES 2. Retinal venous tortuosity SPEP WITH IMMUNOTYPING COMPLETE BLOOD COUNT AND DIFFERENTIAL 3. Nuclear senile cataract of both eyes Assessment Intermediate dry age-related macular degeneration both eyes Recommend AREDS 2 vitamins and Amsler grid use Include omega-3 containing food in diet (oily fish) Vascular tortuosity left eye No edema, atrophy, capillary loss on OCT-A or neovessels. Insufficient signs of ischemia for IVFA today Cannot rule out venous stasis Order CBC with diff, and serum protein electrophoresis Monitor Nuclear sclerotic cataract both eyes Not visually significant Return in one year for re-evaluation PS Serum protein electrophoresis WNL (borderline high alpha2 globulins cannot explain tortuous vessels) CBC to r/o anemia or hypercythemia was not performed. I will ask PCP, Margie Lucas to order CBC at patient's next scheduled appointment with her. I have reviewed the past medical, family, social and surgical history. I have reviewed the meds, allergies, and problem list. I performed my own HPI and reviewed the ROS. I personally completed the exam. The patient was instructed to call our office or go to emergency room if worse vision, worse symptoms, or new/other concerns arise. Shaquille Vasquez MD I am scribing for Dr. Shaquille Vasquez MD 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 RONA Mandujano (Scribe) documented in this encounter Plan of Treatment Not on file documented as of this encounter Procedures Procedure Name Priority Date/Time Associated Diagnosis Comments OCT, RETINA - OU - BOTH EYES Routine 06/13/2022 15:02 EDT Intermediate stage nonexudative age-related macular degeneration of both eyes documented in this encounter Results * OCT, RETINA - OU - BOTH EYES (06/13/2022 15:02 EDT) Narrative [facility] - 06/13/2022 15:02 EDT Right Eye Quality was good. Progression has no prior data. Findings include normal foveal contour. Left Eye Quality was good. Progression has no prior data. Findings include normal foveal contour. 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 Medication Sig Dispensed Refills Start Date End Date allopurinoL (ZYLOPRIM) 100 mg tablet Take 100 mg by mouth daily. 05/05/2022 NOVOLOG FLEXPEN U-100 INSULIN 100 unit/mL (3 mL) injectable pen INJECT UNDER THE SKIN FOUR TIMES DAILY ON SLIDING SCALE DIRECTED. MAXIMUM DAILY DOSE IS 60 UNITS 04/10/2022 LANTUS SOLOSTAR U-100 INSULIN 100 unit/mL (3 mL) injection pen INJECT 24 UNITS SUBCUTANEOUSLY AT BEDTIME INCREASE BY 2 UNITS EVERY 3 DAYS UNTIL FASTING BLOOD SUGAR IS BELOW 150 05/13/2022 levothyroxine (SYNTHROID) 25 mcg tablet Take by mouth daily. gabapentin (NEURONTIN) 100 mg capsule Take 100 mg by mouth 3 times daily. metoprolol TARtrate (LOPRESSOR) 50 mg tablet Take 50 mg by mouth 2 times daily. clopidogreL (PLAVIX) 75 mg tablet Take 75 mg by mouth daily. metFORMIN (GLUCOPHAGE) 500 mg tablet Take 500 mg by mouth 2 times daily with breakfast and dinner. celecoxib (CELEBREX) 100 mg capsule Take 100 mg by mouth 2 times daily. added in this encounter Eye Exam Visual Acuity (Snellen - Linear) Right eye Left eye Dist cc 20/60 -2 20/30 Dist ph cc 20/30 -2 Correction: Glasses Tonometry (Applanation, 13:58) Right eye Left eye Pressure 20 18 Pupils Dark Light APD Right eye 4 3 None Left eye 4 3 None Extraocular Movement Right eye Left eye Full Full Neuro/Psych Oriented x3: Yes Mood/Affect: Normal Dilation Both eyes: Tropicamide 0.5% @ 13:58 Shallow angles Slit Lamp Exam Right eye Left eye Lids/Lashes Normal Normal Conjunctiva/Sclera White and quiet White and katelin et Cornea Clear Clear Anterior Chamber Deep and quiet Deep and quiet Iris Round and reactive Round and neeta ctive Lens 1+ Nuclear sclerosis 1+ Nuclear sclerosis Anterior Vitreous Clear Fundus Exam Right eye Left eye Disc no edema no edema C/D Ratio 0.1 0.1 Macula Large, confluent Bebeto sen, Retinal pigment epithelial mottling Large, confluent Drusen, Retinal pigment epithelial mottling Vessels Normal Tortuous, Dilati on Periphery attached, no heme attached, one peripheral heme superior quadrant Care Teams Director Of Consumer Marketing Relationship Specialty Start Date End Date Antonella Lucas PA-C [address] [place] [phone] PCP - General 01/28/22 documented as of this encounter
--- OUTSIDE RECORDS SUMMARY | 2023-10-15 18:58 | XMS_ITS | Encounter Summary ---
Author Organization [facility] Address [address] [place] [address] Care Team Providers Care Data Processing Manager Name Role Phone Antonella Lucas PA-C Primary Care Provider + Encounter Details Date Type Department Care Team (Late st Contact Info) Description 04/24/2020 Lab Requisition [facility] Pathology & Laboratory Medicine - [address] [address] Outr Resulting Lab, Provider Social History Tobacco [...] Procedure Name Priority Date/Time Associated Diagnosis Comments ZZCOVID-19 TEST [facility] PCR Today 04/24/2020 8:15 EST COVID-19 TESTING Routine 04/24/2020 8:15 EST documented in this encounter Results * COVID-19 TEST [facility] PCR (04/24/2020 8:15 EST) Swab ENTIRE NASOPHARYNX / Unknown 04/24/2020 8:15 EST 04/24/2020 21:53 EST Provider Outr Resulting Lab MICROBIOLOGY - GENERAL ORDERABLES Performing Organization Address City/[facility]/ZIP Co de Phone Number [facility] [address] [place] [address] * (ABNORMAL) COVID-19 TESTING (04/24/2020 8:15 EST) COVID-19 rt-PCR Result Positive( AA) Negative 04/25/2020 17:24 EST [facility] Comment: This test has not been FDA cleared or approved. This test has been authorized by FDA under an EUA for use by authorized laboratories. This test has been authorized only for detection of nucleic acid from 2019-nCoV, not for any other viruses or pathogens. This test is only authorized for the duration of the declaration that circumstances exist justifying the authorization of emergency use of in vitro diagnostic tests for detection and/or diagnosis of 2019-nCoV under section 564(b)(1) of Act, 21 U.S.C ?? 360bbb-3(b) (1), unless the authorization is terminated or revoked sooner. This test was developed and its performance characteristics determined by [facility]. It has not been cleared or approved by the US Food and Drug Administration. FDA does not require this test to go through premarket FDA review. This test is used for clinical purposes. It should not be regarded as investigational or for research. This laboratory is certified under the Clinical Laboratory Improvement Amendments (CLIA) as qualified to perform high complexity clinical laboratory testing. This test is based on the [facility] COVID-19 Emergency Use Authorization (EUA) assay, with minor modification as defined by the FDA Performed on the [employer] 7 Flex RT-PCR System. Performing Lab [facility] Lab 04/25/2020 17:24 EST [facility] Swab 04/24/2020 8:15 EST 04/24/2020 21:53 EST Provider Outr Resulting Lab MICROBIOLOGY - GENERAL ORDERABLES Performing Organization Address City/[facility]/ZIP Co de Phone Number [facility] [address] [place] [address] documented in this encounter Visit Diagnoses Not on filedocumented in this encounter Additional Health Concerns Infection Onset Date Last Indicated Resolved Time COVID-19 04/24/2020 04/24/2020 05/24/2020 22:1 5 EST documented as of this encounter Care Teams Data Processing Manager Relationship Specialty Start Date End Date Antonella Lucas PA-C [address] [place] [phone] PCP - General 01/28/22 documented as of this encounter
--- OUTSIDE RECORDS SUMMARY | 2023-10-15 18:59 | XMS_ITS | Encounter Summary ---
Author Organization [facility] [place] [address] Care Team Providers Care Protozoologist Name Role Phone Antonella Lucas Primary Care Provider +1- [phone] Encounter Details Date Type Department Care Team (Latest Contact Info) Description 03/22/2019 12:15 PM EST Laboratory Appointment Cardiology at [address] [address] Research study patient Social History Tobacco Use Types Packs/Day Years Used Date Smoking Tobacco: Former Cigarettes 2 50 1 - 12/2018 Smokeless Tobacco: Never Alcohol Use Standard Drinks/Week Comments Yes 3 (1 standard drink = 0.6 oz pur e alcohol) 3-4 beers/night per pt Sex and Gender Information Value Date Recorded Sex Assigned at Not on file Gender Identity Not on file Sexual Orientation Not on file documented as of this encounter Plan of Treatment Not on file documented as of this encounter Procedures Procedure Name Priority Date/Time Associated Diagnosis Comments HC VENIPUNCTURE Routine 03/22/2019 12:49 PM EST Research study patient documented in this encounter Results * Research Venipuncture (03/22/2019 12:49 PM EST) Research Venipuncture Drawn [facility] Blood specimen (specimen) 03/22/2019 12:49 PM EST 03/22/2019 12:54 PM EST Narrative Resulting Agency Comment Spec In Lab Marlo Keith MD CHEMISTRY ORDERABL ES [facility] [place] [address] documented in this encounter Visit Diagnoses Diagnosis Research study patient Reserved for inherently not codable concepts WITHOUT codable children documented in this encounter Care Teams Protozoologist Relationship Specialty Start Date End Date Antonella Lcuas PA [address] [place] [address] PCP - General Family Medicine 05/06/17 11/01/19 documented as of this encounter
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
--- OUTSIDE RECORDS SUMMARY | 2023-10-15 18:59 | XMS_ITS | Encounter Summary ---
Author Organization [facility] [address] Care Team Providers Care Kindergarten Teacher Assistant Name Role Phone Antonella Lucas Primary Care Provider +1- [phone] Encounter Details Date Type Department Care Team (Late st Contact Info) Description 02/03/2019 Orders Only Cardiology at [address] [address] Shavon Dorman, RN Research study patient Social History Tobacco [...] on file documented as of this encounter Results * Research Venipuncture (03/22/2019 12:49 PM EST) Research Venipuncture Drawn [facility] Blood specimen (specimen) 03/22/2019 12:49 PM EST 03/22/2019 12:54 PM EST Narrative Resulting Agency Comment Spec In Lab Marlo Keith MD CHEMISTRY ORDERABL ES [facility] [place] [address] * Research Venipuncture (02/22/2019 10:51 AM EST) Research Venipuncture Drawn [facility] Blood specimen (specimen) 02/22/2019 10:51 AM EST 02/22/2019 11:00 AM EST Narrative Resulting Agency Comment Spec In Lab Marlo Keith MD CHEMISTRY ORDERABL ES [facility] [place] [address] documented in this encounter Visit Diagnoses Diagnosis Research study patient Reserved for inherently not codable concepts WITHOUT codable children documented in this encounter Care Teams Kindergarten Teacher Assistant Relationship Specialty Start Date End Date Antonella Lucas PA [address] [place] [address] PCP - General Family Medicine 05/06/17 11/01/19 documented as of this encounter
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
--- OUTSIDE RECORDS SUMMARY | 2023-10-15 18:59 | XMS_ITS | Encounter Summary ---
[place] [address] Care Team Providers Care Electric Motor Winders Assembler Name Role Phone Lance Antonella ARRIAGA Primary Care Provider +1- [phone] Encounter Details Date Type Department Care Team (Latest Contact Info) Description 03/24/2019 8:30 AM EST Laboratory Appointment Lab [address] [place] [id number] Research study patient Social History Tobacco Use [...] Date/Time Associated Diagnosis Comments HC VENIPUNCTURE Routine 03/24/2019 8:40 AM EST Research study patient documented in this encounter Results * Research Venipuncture (03/24/2019 8:40 AM EST) Research Venipuncture Drawn [facility] Blood specimen (specimen) 03/24/2019 8:40 AM EST 03/24/2019 8:57 AM EST Narrative Resulting Agency Comment Spec In Lab Marlo Keith MD CHEMISTRY ORDERABL ES [facility] [place] [address] documented in this encounter Visit Diagnoses Diagnosis Research study patient Reserved for inherently not codable concepts WITHOUT codable children documented in this encounter Care Teams Electric Motor Winders Assembler Relationship Specialty Start Date End Date Antonella Lucas PA [address] [place] [address] PCP - General Family Medicine 05/06/17 11/01/19 documented as of this encounter
--- OUTSIDE RECORDS SUMMARY | 2023-10-15 18:59 | XMS_ITS | Encounter Summary ---
Author Organization [facility] Address [facility] [place] [address] Care Team Providers Care [place] Name Role Phone Antonella Lucas Primary Care Provider +1- [phone] Encounter Details Date Type Department Care Team (Late Contact Info) Description 02/22/2019 11:20 AM EST Office Visit [place] [address] Louis De La O MD [facility] [place] [address] S/P CABG (coronary artery bypass graft) Social History Tobacco Use Types Packs/Day Years [...] Sign Reading Time Taken Comments Blood Pressure 109/62 02/22/2019 11:29 AM EST Pulse 55 02/22/2019 11:29 AM EST Temperature - - Respiratory Rate - - Oxygen Saturation 98% 02/22/2019 11:29 AM EST Inhaled Oxygen Concentration - - Weight 113.9 kg (251 lb) 02/22/2019 11:29 AM EST Height 188 cm (6' 2) 02/22/2019 11:29 AM EST Body Mass Index 32.23 02/22/2019 11:29 AM EST documented in this encounter Progress Notes * Louis De La O MD - 02/22/2019 11:20 AM EST Pt is here for his follow up for the quark study Since his cabg he has done well No symptoms of angina or heartfailure Wounds are cdi No swelling in the legs Imp doing well from surgery Plan: follow up per study documented in this encounter Plan of Treatment Not on file documented as of this encounter Visit Diagnoses Diagnosis S/P CABG (coronary artery bypass graft) Postsurgical aortocoronary bypass status documented in this encounter Care Teams [place] Relationship Specialty Start Date End Date Antonella Lucas PA [address] [place] [address] PCP - General Family Medicine 05/06/17 11/01/19 documented as of this encounter
--- OUTSIDE RECORDS SUMMARY | 2023-10-15 18:59 | XMS_ITS | Encounter Summary ---
Author Organization [facility] Address [facility] [place] [address] Care Team Providers Care Director Patient Financial Services Name Role Phone Antonella Lucas Primary Care Provider +1- [phone] Encounter Details Date Type Department Care Team (Late st Contact Info) Description 03/22/2019 1:00 PM EST Office Visit [place] [address] Louis De La O MD [facility] DR [place] [address] S/P CABG x 2 Social History Tobacco [...] Sign Reading Time Taken Comments Blood Pressure 100/68 03/22/2019 12:56 PM EST Pulse 62 03/22/2019 12:56 PM EST Temperature - - Respiratory Rate - - Oxygen Saturation 97% 03/22/2019 12:56 PM EST Inhaled Oxygen Concentration - - Weight 114.3 kg (252 lb) 03/22/2019 12:56 PM EST Height 182.9 cm (6') 03/22/2019 12:56 PM EST Body Mass Index 34.18 03/22/2019 12:56 PM EST documented in this encounter Progress Notes * Luz Myles PA - 03/22/2019 1:00 PM EST Cardiac Surgery Clinic Note: ID: [id number] Cardiac Surgery Attending: Dr. De La O CC: Routine research study follow-up visit (90 days) S: Feels well. Has continued tobacco cessation. Breathing feels improved, lower leg edema improved and is now only trace. Chest still feels sore, but continuing to improve. Current medications: Outpatient Medications Marked as Taking for the 03/22/19 encounter (Office Visit) with Louis De La O MD Medication Sig Dispense Refill ??? naproxen sodium (ALEVE) 220 mg Capsule Take by mouth. ??? aspirin 81 mg Tablet, Chewable Take 81 mg by mouth daily. ??? acetaminophen (TYLENOL) 500 mg Tablet Take 2 tablets by mouth every 6 hours as needed for Pain. ??? metoprolol tartrate (LOPRESSOR) 75 mg Tablet Take 1 tablet by mouth 2 times daily. 60 tablet 3 ??? glipiZIDE (GLUCOTROL XL) 5 mg Tablet [...] 50 MG = 1 Tablet(s), PO, PRN O: Vitals: 03/22/19 1256 BP: 100/68 Pulse: 62 SpO2: 97% Weight: 114.3 kg (252 lb) Height: 182.9 cm (6') Physical exam: General: Awake, alert, sitting up in chair Neuro: Appropriately conversant, moving all extremities with equal strength Heart: RRR, S1S2 heard Lungs: Lung sounds present, CTAB, non-labored breathing on RA Abdomen: soft, NT, ND, +bowel sounds Ext: WWP, trace BLE Incisions: sternotomy well-healed Assessment/Plan: 68 y.o. male who is recovering well 3 months s/p CABG (12/23/2018). 1. RTC in 1 year for next research follow-up visit. DW Attending Surgeon Dr. De La O. Signed: BART James [facility] Section of Cardiac Surgery 03/22/2019 documented in this encounter Plan of Treatment Not on file documented as of this encounter Visit Diagnoses Diagnosis S/P CABG x 2 Postsurgical aortocoronary bypass status documented in this encounter Care Teams Director Patient Financial Services Relationship Specialty Start Date End Date Antonella Lucas PA [address] [place] [address] PCP - General Family Medicine 05/06/17 11/01/19 documented as of this encounter
--- OUTSIDE RECORDS SUMMARY | 2023-10-15 18:59 | XMS_ITS | Encounter Summary ---
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 Decision-Making Capacity: Patient is A&Ox4 and able to make all medical decisions Advance Care Planning: Full Code Not in EPIC. 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 Current Functional Ability: assist of staff Functional Status Prior to Admission: independent with ADLs, driving, works part-time. Home Environment: lives in 3 level house, stays mainly on 1st level.Has bedroom and bathroom on first level. 3 steps to enter no railings [address] [facility] [address] Social & Family Supports/Community Resources: lives alone. Felicia.ligia Pichardo will be staying with patient post discharge to provide support at home. She is available during the day. Had 2 sisters Candace and Loly. Extended Emergency Contact Information Primary Emergency Contact: NguyenCandace Mobile Relation: Sibling Secondary Emergency Contact: Loly Walter Mobile Relation: Sibling Health/Prescription Coverage: Primary Insurance: MEDICARE Secondary Insurance: N/AMedicaid [place] Prescription Coverage: Yes Preferred Pharmacy: [facility] - [place], [place] - [address] AT Portal to [facility] Sites [address] [facility] [address] [id number] AT [facility] [address] [address] Other: none Primary Care Provider: BART Miller [phone] Patient/Caregiver Goals of Treatment: return to previous level of function Potential Needs for Transition of Care: Discussed with patient and family levels of rehab includingSNF, swing, acute and VNA home health and hospice care also discussed. Discussed need to accept first bed available when patient is medically ready. Rehab/SNF: TBD Home Health: [facility] pended for RN/PT DME: tbd Transportation: car by [place] Pichardo Other: none Anticipated Barriers to Discharge/Special Considerations: none vs anticipated barriers to arise as hospitalization continues. Assessment: patient is admitted to CT service for CABG, final discharge disposition tbd by hospitalcourse and PT evaluation, [facility]NA referral pended for RN/PT. The patient/product support representative has been provided a list of Home Health Agencies/DME vendors which servetheir preferred geographic area. A letter describing our affiliations was reviewed with them and they were educated about their right to choose where referrals are placed. Patient requests referral to [facility]. PHONE: [phone] FAX: [phone] Expected date of discharge: TBD Referral routed to the Dairy Scientist for matching with agency/vendor and to provide any required information. Plan: A member of the Care Management team will continue to monitor progress, follow for continuityof care and assist with transition of care planning. Jazmin Jose RN Nurse Manager Transportation Pager [phone] * OR Attestation - Louis De La O MD - 12/23/2018 2:03 PM EDT Attestation: Case Date: 12/23/2018 I performed this procedure without the involvement of a resident. Louis De La O MD 12/28/2018 * Op Note - Louis De La O MD - 12/23/2018 2:03 PM EDT 12/28/2018 Bear Gamboa 1950 [id number] Preoperative Diagnosis: Coronary artery disease Stable Angina Postoperative Diagnosis: Coronary artery diseaseStable Angina Procedure: CABG times 2: RENEE to LAD, SVG to pda. Endoscopic vein harvest Surgeon: Louis De La O M.D. Anesthesia: General endotracheal anesthesia Drains: Two mediastinal tubes Pacing Wires: Two A-wires, two V-wires. EBL: 200 mL Findings: good targets, large rca aneurysm Procedure: The patient was taken to the Operating Room and had a radial A-line placed. All the proper lines and monitors were placed by Anesthesia. The patient was then prepped and draped in the normal sterile fashion. The right leg was used to harvest the greater saphenous vein using an endoscopic technique. A vertical incision was made on the medial aspect of the knee. The AlicantoView XB7 system was used to dissect out the vein anterior and posteriorly. All the side branches were cauterized. The vein was ligated distally and proximally. It was removed through the incision at the knee. The vein was flushed with heparinized saline in a reverse direction. All the side branches were clipped. The vein was untwistedand striped with a sterile pen. The leg had a HEATHER drain placed in it. It was irrigated out with antibiotic solution and closed immediately. The chest was opened along the midline. Cautery was used on the sternal edges and bone wax was lightly applied to the divided marrow of the sternum. The left mehrdad-sternum was elevated. The pleura were taken down, and the mammary artery was dissected free clipping all side branches. Heparin was given. Several minutes later the distal end of the mammary was clipped and tied on the chest wall, and the bleeding end had a bulldog placed across it. It was prepared for bypass by spatulating it open, injecting it with verapamil, and rolling it up into a nitroglycerin-soaked sponge. The PERI had excellent flow. The Rultract was removed. Two antibiotic-soaked towels were used to bumper the sternum. The sternal retractor was used to open the sternum. The overlying pericardium was opened in an inverse-T fashion and hung to the edge of the sternal retractor. Full-dose heparin was given. The aorta was cannulated. The right atrium had the venous cannula placed through the IVC. A retrograde was placed through the right atrium into the coronary sinus. The antegrade was place mid ascending aorta which also doubled as the root vent. With the ACT above 450, we went on bypass. The targets were inspected. The aorta was crossclamped and the heart was arrested with cold blood cardioplegia antegrade and retrograde. We drifted to 32 degrees Celsius. The bypasses were as follows: The pda target was identified and opened and in an end to side fashion the SVG was anastomosed witha running 7.0 prolene. Cardiopelegia was given down the graft and there were no leaks. The heart was filled and the graft was measured for length and trimmed. A punch was made in the aorta and a proximal anastomosis was created with a 6-0. A washer was used to identify the proximal. The peri was taken out of the left chest and a slit was created in the L side of the pericardium making sure to identify the L phrenic nerve. The peri was anastomosed to the LAD with a running 8-0 prolene. The bulldog was removed to test the graft then replaced. At this point, hotshots were given. The heart began beating in a sinus rhythm. The crossclamp was removed. The grafts were inspected. The heart was allowed to re-perfuse. The retrograde was removed and oversewn; so was the antegrade. An angled chest tube was placed behind the heart. Both chests were suctioned out, and the lungs were re-inflated. After a period of rewarming and allowing the heart to re-perfuse, we from bypass. The venous cannula was removed and the pursestring was tieddown and oversewn. Protamine was. A strip of felt was sewn over the right sided av groove. This wasadditionally glued into place copletely covering the exiting coronary aneurysms. The aortic cannulawas removed. Both pursestrings were tied down and oversewn. We had no further bleeding. A straight chest tube was placed in front of the heart. Vanco paste was applied to the sternum. Interrupted steel cables were used to close the chest, several layers of Vicryl, and a 4-0 Monocryl were used to close the overlying soft tissue. Glue and clean dry sterile dressings were applied. The patient was transported to the CV on epi and levo. All counts were correct. * Brief Op Note - Louis De La O MD - 12/23/2018 2:03 PM EDT Brief Operative Note Patient Name: Bear Gamboa : [id number] MR#: [id number] Case Date: 12/23/2018 Surgeon: Surgeon(s) and Role: * Louis De La O MD - Primary Preoperative diagnosis: cad Postoperative diagnosis: CAD Procedure(s) (LRB): @CABG, USING ARTERIAL GRAFT;SINGLE ARTERIAL GRAFT (WRVU 33.75) (N/A) ENDOSCOPIC HARVEST VEIN(S) FOR CABG (WRVU 0.31) (N/A) @CABG, VENOUS & ARTERIAL GRAFT;SINGLE VEIN GRAFT (WRVU 3.61) (N/A) Anesthesia: General Findings: good pda and lad, good conduit, large coronary aneurysms of rca Complications: none Estimated Blood Loss: * No values recorded between 12/23/2018 8:19 AM and 12/23/2018 10:54 AM * Specimens removed during surgery: None Fluids: Intraprocedure Crystalloid Total Sodium Chloride 0.9% Volume (mL) 500 mL lactated ringers infusion Volume (mL) 500 mL PRBCs: none (See Anesthesia Record/Report for Other Blood Products) Urine Output: 190 mL Drains: 2 med tubes Disposition: taken directly to the ICU, intubated and in a critical condition. Condition: doing well without problems (Please see the Surgical Encounter Summary for any Implant and Specimen details pertinent to this patient.) Infection Bundle used? No documented in this encounter Plan of Treatment Scheduled Referrals Name Type Priority Associated Diagnoses Orde r Schedule Referral to Cardiac Rehab Outpatient Referral Routine S/P CABG x 2 Ordered: 12/27/2018 documented as of this encounter Procedures Procedure Name Priority Date/Time Associated Diagnosis Comments POCT GLUCOSE Routine 12/27/2018 11:47 AM EDT POCT GLUCOSE Routine 12/27/2018 7:37 AM EDT HC POTASSIUM Routine 12/27/2018 4:57 AM EDT POCT GLUCOSE Routine 12/26/2018 4:44 PM EDT XR CHEST PA AND LATERAL Routine 12/26/2018 3:27 PM EDT POCT GLUCOSE Routine 12/26/2018 11:57 AM EDT POCT GLUCOSE Routine 12/26/2018 8:00 AM EDT HEMOGRAM Routine 12/26/2018 4:52 AM EDT DIFFERENTIAL, AUTOMATED Routine 12/26/2018 4:52 AM EDT HC CBC,PLT & AUTO DIFF Routine 9 4:52 AM EDT HC VENIPUNCTURE Routine 12/26/2018 4:52 AM EDT POCT GLUCOSE Routine 12/25/2018 7:55 PM EDT POCT GLUCOSE Routine 12/25/2018 3:35 PM EDT POCT GLUCOSE Routine 12/25/2018 11:21 AM EDT POCT GLUCOSE Routine 12/25/2018 7:50 AM EDT HC VENIPUNCTURE Routine 12/25/2018 5:41 AM EDT POCT GLUCOSE Routine 12/24/2018 7:54 PM EDT POCT GLUCOSE Routine 12/24/2018 4:18 PM EDT POCT GLUCOSE Routine 12/24/2018 2:17 PM EDT POCT GLUCOSE Routine 12/24/2018 12:09 PM EDT POCT GLUCOSE Routine 12/24/2018 10:30 AM EDT POCT GLUCOSE Routine 12/24/2018 7:45 AM EDT POCT GLUCOSE Routine 12/24/2018 6:13 AM EDT POCT GLUCOSE Routine 12/24/2018 4:06 AM EDT SCAN, PERIPHERAL BLOOD Routine 9 4:05 AM EDT HEMOGRAM Routine 12/24/2018 4:05 AM EDT DIFFERENTIAL, AUTOMATED Routine 12/24/2018 4:05 AM EDT HC CBC,PLT & AUTO DIFF Routine 4:05 AM EDT HC TROPONIN T Routine 12/24/2018 4:05 AM EDT BASIC METABOLIC PANEL (NON-FASTING) Routine 12/24/2018 4:05 AM EDT POCT GLUCOSE Routine 12/24/2018 3:03 AM EDT POCT GLUCOSE Routine 12/24/2018 2:10 AM EDT POCT GLUCOSE Routine 12/24/2018 1:01 AM EDT POCT GLUCOSE Routine 12/24/2018 12:21 AM EDT POCT GLUCOSE Routine 12/23/2018 9:51 PM EDT POCT GLUCOSE Routine 12/23/2018 8:53 PM EDT POCT GLUCOSE Routine 12/23/2018 8:04 PM EDT POCT GLUCOSE Routine 12/23/2018 6:54 PM EDT POCT GLUCOSE Routine 12/23/2018 6:30 PM EDT POCT GLUCOSE Routine 12/23/2018 5:59 PM EDT POCT GLUCOSE Routine 12/23/2018 5:21 PM EDT POCT GLUCOSE Routine 12/23/2018 4:47 PM EDT POCT GLUCOSE Routine 12/23/2018 4:20 PM EDT HC HEMOGLOBIN, BLOOD Routine 12/23/2018 3:40 PM EDT HC POTASSIUM Routine 12/23/2018 3:40 PM EDT POCT GLUCOSE Routine 12/23/2018 3:35 PM EDT EXTUBATE Routine 12/23/2018 2:44 PM EDT BLOOD GAS 2 ARTERIAL Routine 12/23/2018 2:39 PM EDT POCT GLUCOSE Routine 12/23/2018 1:53 PM EDT BLOOD GAS 2 ARTERIAL Routine 12/23/2018 12:43 PM EDT EKG 12-LEAD STAT 12/23/2018 12:06 PM EDT S/P CABG x 2 XR CHEST ONE VIEW STAT 12/23/2018 12: 01 PM EDT LUNG RECRUITMENT MANEUVER Routine 12/23/2018 11:59 AM EDT BLOOD GAS 2 ARTERIAL Routine 12/23/2018 11:47 AM EDT HC HEMOGLOBIN, BLOOD STAT 12/23/2018 10:30 AM EDT HC PARTIAL THROMBOPLASTIN TIME STAT 12/23/2018 10:30 AM EDT HC PROTHROMBIN TIME STAT 12/23/2018 1 0:30 AM EDT HC FIBRINOGEN TITER STAT 12/23/2018 1 0:30 AM EDT BLOOD GAS 2 ARTERIAL Routine 12/23/2018 10:26 AM EDT PREPARE PLATELETS, APHERESIS STAT 12/23/2018 10:25 AM EDT @CABG,VENOUS & ARTERIAL GRAFT;SINGLE VEIN GRAFT Routine 12/23/2018 9:46 AM EDT Coronary artery disease of [place] heart with stable angina pectoris, unspecified vessel or lesion type BLOOD GAS 2 ARTERIAL Routine 12/23/2018 9:40 AM EDT HC HEMOGLOBIN, BLOOD STAT 12/23/2018 9:35 AM EDT HC FIBRINOGEN TITER STAT 12/23/2018 9 :35 AM EDT HC PLATELET COUNT STAT 12/23/2018 9:3 5 AM EDT BLOOD GAS 2 ARTERIAL Routine 12/23/2018 9:11 AM EDT BLOOD GAS 2 VENOUS Routine 12/23/2018 9: 11 AM EDT BLOOD GAS 2 ARTERIAL Routine 12/23/2018 8:15 AM EDT Cabg, Artery-Vein, Single ([id number]) 12/23/2018 7:31 AM EDT Coronary artery disease of [place] heart with stable angina pectoris, unspecified vessel or lesion type Endoscopy W/Video-Asst Vein [place], Cabg ([id number]) 12/23/2018 7:31 AM EDT Coronary artery disease of [place] heart with stable angina pectoris, unspecified vessel or lesion type Cabg, Arterial, Single ([id number]) 12/23/2018 7:31 AM EDT Coronary artery disease of [place] heart with stable angina pectoris, unspecified vessel or lesion type HC UA W/OUT MICROSCOPIC Routine 12/23/2018 7:20 AM EDT ASCVD (arteriosclerotic cardiovascular disease) EKG 12-LEAD Routine 12/23/2018 7:18 AM EDT CKD (chronic kidney disease) stage 4, GFR 15-29 ml/min CMP W/FASTING GLUCOSE Routine 12/23/2018 7:10 AM EDT HEMOGRAM Routine 12/23/2018 7:10 AM EDT DIFFERENTIAL, AUTOMATED Routine 12/23/2018 7:10 AM EDT HC CBC,PLT & AUTO DIFF Routine 9 7:10 AM EDT POCT GLUCOSE Routine 12/23/2018 6:46 AM EDT PREPARE RBC STAT 12/23/2018 6:40 AM EDT documented in this encounter Results * EKG 12 Lead (01/25/2019 2:16 PM EST) Ventricular rate 77 BPM MUSE SYSTEM Atrial Rate 77 BPM MUSE SYSTEM P-R Interval 206 ms MUSE SYSTEM QRS Duration 90 ms MUSE SYSTEM Q-T Interval 372 ms MUSE SYSTEM QTC Calculated (Bezet) 420 ms MUSE SYSTEM Calculated P [place] 57 degrees MUSE SYSTEM Calculated R [place] 6 degrees MUSE SYSTEM Calculated T [place] 144 degrees MUSE SYSTEM INTERPRETATION Sinus rhythm with Blocked Premature atrial complexes , possible ??Inferior infarct (cited on or before 23-FEB-2009) T wave abnormality, consider anterolateral ischemia Abnormal ECG When compared with ECG of 23-DEC-2018 12:06, Significant changes have occurred Confirmed by Marli Uribe ([email or web address]) on 01/26/2019 10:13:16 AM MUSE SYSTEM 01/25/2019 2:16 PM EST 01/26/2019 10:13 AM EST Louis De La O MD ECG ORDERABLES MUSE SYSTEM * (ABNORMAL) CT Chest wo Contrast (Generic) (01/25/2019 12:41 PM EST) Anatomical Region Laterality Modality Chest Computed Tomogra phy Impressions 01/25/2019 3:01 PM EST Evaluation of the heart and the coronary arteries/bypasses is limited by noncontrast, nongated exam. Known aneurysm of the right coronary artery. Overlying mesh. So far no obvious osseous healing of the sternotomy. UNEXPECTED FINDING of a 2.7 cm nodule at the posterior aspect of the right thyroid lobe with calcifications. Stable compared to 09/07/2018. Ultrasound and possibly biopsy would be needed to exclude malignancy. Thank you for letting us participate in the care of this patient. For questions regarding this report, please contact the number below. ? Electronically signed by: Gladys Leslie [facility] ([phone]), at 01/25/2019 3:01 PM Narrative 01/25/2019 3:01 PM EST EXAMINATION: CT CHEST WO CONTRAST (GENERIC) CLINICAL HISTORY: s/p CABGx2 (12/23/2018), CT chest for known R coronary aneurysm TECHNIQUE: 3.75mm thick axial contiguous sections were obtained through the chest via helical acquisition without intravenous contrast administration. Thin-section reconstructions as well as coronal and sagittal reformatted images were generated. COMPARISON: Outside CT 09/07/2018. FINDINGS: Pulmonary parenchyma: No suspicious pulmonary lesion. No discrete airspace abnormality. Only mild basilar atelectases. Airways: Central and segmental airways are patent. Pleura: No effusion. Lymph nodes: No thoracic lymphadenopathy. Heart, pericardium, and great vessels: Normal size of the cardiac chambers. Small amount of pericardial fluid. Dense material overlying the atrioventricular groove and coronary artery on the right compatible with a mesh. Coronary stenting in the proximal and distal right coronary artery. The mid right coronary artery is aneurysmally dilated with a diameter of up to 3 cm. Severe coronary artery atherosclerotic calcifications of the LAD and circumflex artery. Calcifications of the aortic valve level. Other mediastinal structures: No significant findings. Lower neck: Note is made of a nodularity at the posterior aspect of the right thyroid lobe which contains calcifications (series 3, image 9). Upper abdomen: Incompletely visualized 1.3 cm hypodensity in the medial aspect of the left liver lobe. Body wall soft tissues: No significant findings. Skeletal structures: Degenerative changes. Mild wedge-shaped deformity of one vertebral body in the midthoracic spine. No acute appearing abnormality. Sternal wires are present. Lack of osseous fusion along the sternotomy. Resulting Agency Comment Unexpected Finding Louis De La O MD IM CT ORDERABLES * XR Chest PA & Lateral (Generic) (01/25/2019 12:10 PM EST) Anatomical Region Laterality Modality Chest N/A Digital Radiogra phy Impressions 01/25/2019 12:57 PM EST Improved aeration of both lungs and resolved or nearly resolved pleural effusion. No acute pathology. Thank you for letting us participate in the care of this patient. For questions regarding this report, please contact the number below. ? Narrative 01/25/2019 12:57 PM EST EXAMINATION: XR CHEST PA AND LATERAL (GENERIC) CLINICAL HISTORY: s/p CABG TECHNIQUE: PA and lateral views of the chest COMPARISON: 12/26/2018. FINDINGS: Improved aeration of both lungs. Decreased pleural effusions with now only trace pleural fluid or pleural thickening posteriorly. Borderline size of the heart. Sternal wires and mediastinal surgical clips. Sequela of remote left clavicle fracture are seen again. No interval change in the thoracic spine. Procedure Note Gladys Gray MD - 01/25/2019 EXAMINATION: XR CHEST PA AND LATERAL (GENERIC) CLINICAL HISTORY: s/p CABG TECHNIQUE: PA and lateral views of the chest COMPARISON: 12/26/2018. FINDINGS: Improved aeration of both lungs. Decreased pleural effusions with now onlytrace pleural fluid or pleural thickening posteriorly. Borderline size of theheart. Sternal wires and mediastinal surgical clips. Sequela of remote leftclavicle fracture are seen again. No interval change in the thoracic spine. IMPRESSION Improved aeration of both lungs and resolved or nearly resolved pleural effusion. No acute pathology. Thank you for letting us participate in the care of this patient. Forquestions regarding this report, please contact the number below. Electronically signed by: Gladys Leslie [facility]([phone]), at 01/25/2019 12:57 PM Louis De La O MD IMG DX ORDERABLES * POCT Glucose (12/27/2018 11:47 AM EDT) POC Glucose 185 65 - 199 mg/dL [facility] Comment: Supplemental ranges: <140 mg/dL before meals <180 mg/dL all other times of the day Blood specimen (specimen) 12/27/2018 11:47 AM EDT 12/27/2018 11:47 AM EDT Louis De La O MD POINT OF CARE TEST ORDERABLES Performing Organization Address [facility]/ZIP Co de Phone Number [facility] [place] [address] * POCT Glucose (12/27/2018 7:37 AM EDT) POC Glucose 163 65 - 199 mg/dL [facility] Comment: Supplemental ranges: <140 mg/dL before meals <180 mg/dL all other times of the day Blood specimen (specimen) 12/27/2018 7:37 AM EDT 12/27/2018 7:37 AM EDT Louis De La O MD POINT OF CARE TEST ORDERABLES Performing Organization Address City/[facility]/ZIP Co de Phone Number [facility] [place] [address] * Potassium (12/27/2018 4:57 AM EDT) Potassium 3.9 3.5 - 5.0 mmol/L [facility] Comment: Please note: ??Patients with WBC >100,000 may have falsely elevated Potassium levels. ??For accurate Potassium quantification in these patients send serum separator tube (gold top) for subsequent determinations. ??Contact the Clinical Chemistry Laboratory if there are any questions. Blood specimen (specimen) 12/27/2018 4:57 AM EDT 12/27/2018 5:13 AM EDT Narrative Resulting Agency Comment Spec In Lab Louis De La O MD CHEMISTRY ORDERABLE S Performing Organization Address [facility] Co de Phone Number [facility] [place] [address] * POCT Glucose (12/26/2018 4:44 PM EDT) POC Glucose 170 65 - 199 mg/dL [facility] Comment: Supplemental ranges: <140 mg/dL before meals <180 mg/dL all other times of the day Blood specimen (specimen) 12/26/2018 4:44 PM EDT 12/26/2018 4:44 PM EDT Louis De La O MD POINT OF CARE TEST ORDERABLES Performing Organization Address [facility] Co de Phone Number [facility] [place] [address] * XR Chest PA & Lateral (Generic) (12/26/2018 3:27 PM EDT) Anatomical Region Laterality Modality Chest N/A Digital Radiogra phy Impressions 12/26/2018 5:05 PM EDT Bibasilar atelectasis, and effusions. Cannot exclude consolidation. Thank you for letting us participate in the care of this patient. For questions regarding this report, please contact the number below. ? Electronically signed by: Carlitos Choi [facility] ([phone]), at 12/26/2018 5:05 PM Narrative 12/26/2018 5:05 PM EDT EXAMINATION: XR CHEST PA AND LATERAL (GENERIC) CLINICAL HISTORY: s/p CABG 68-year-old male TECHNIQUE: Frontal and lateral views of the chest COMPARISON: 12/23/2018, 12/21/2018. FINDINGS: Sternotomy wires are stable in place. The right-sided jugular line has been removed. The patient is extubated. Multiple overlying leads. Airways are essentially midline. Normal size cardiomediastinal silhouette, normal pulmonary vascularity. Bibasilar linear and patchy opacities. Blunting of the costophrenic angles bilaterally. Elevation left hemidiaphragm again appreciated. Bowel loops of left upper quadrant are prominent. Left-sided clavicular fracture, and degenerative changes are partially characterized. Procedure Note Carlitos Choi MD - 12/26/2018 EXAMINATION: XR CHEST PA AND LATERAL (GENERIC) CLINICAL HISTORY: s/p CABG 68-year-old male TECHNIQUE: Frontal and lateral views of the chest COMPARISON: 12/23/2018, 12/21/2018. FINDINGS: Sternotomy wires are stable in place. The right-sided jugular line hasbeen removed. The patient is extubated. Multiple overlying leads. Airways are essentially midline. Normal size cardiomediastinalsilhouette, normal pulmonary vascularity. Bibasilar linear and patchy opacities. Blunting of the costophrenicangles bilaterally. Elevation left hemidiaphragm again appreciated. Bowel loopsof left upper quadrant are prominent. Left-sided clavicular fracture, and degenerative changes are partially characterized. IMPRESSION Bibasilar atelectasis, and effusions. Cannot exclude consolidation. Thank you for letting us participate in the care of this patient. Forquestions regarding this report, please contact the number below. Electronically signed by: Carlitos Choi [facility]([phone]), at 12/26/2018 5:05 PM Louis De La O MD IMG DX ORDERABLES * (ABNORMAL) POCT Glucose (12/26/2018 11:57 AM EDT) POC Glucose 221(H) 65 - 199 mg/dL [facility] Comment: Supplemental ranges: <140 mg/dL before meals <180 mg/dL all other times of the day Blood specimen (specimen) 12/26/2018 11:57 AM EDT 12/26/2018 11:57 AM EDT Louis De La O MD POINT OF CARE TEST ORDERABLES Performing Organization Address City/[facility]/ZIP Co de Phone Number [facility] [place] [place] [address] * POCT Glucose (12/26/2018 8:00 AM EDT) Pathologist [facility] POC Glucose 159 65 - 199 mg/dL [facility] Comment: Supplemental ranges: <140 mg/dL before meals <180 mg/dL all other times of the day Blood specimen (specimen) 12/26/2018 8:00 AM EDT 12/26/2018 8:00 AM EDT Louis De La O MD POINT OF CARE TEST ORDERABLES Performing Organization Address City/[facility]/ZIP Co de Phone Number [facility] [place] [place] [address] * (ABNORMAL) Differential, Automated (12/26/2018 4:52 AM EDT) Pathologist [facility] Neutrophils % 84.5 % [facility] Neutr Abs (ANC) 16.12(H) 1.70 - 6.10 x10(3)/mc L [facility] Lymphocytes % 5.2 % [facility] Lymphocytes Abs 1.0 0.9 - 3.2 x10(3)/mc L [facility] Monocytes % 8.8 % [facility] Monocyte Abs 1.7(H) 0.3 - 0.9 x10(3)/mc L [facility] Eosinophils % 0.2 % [facility] Eosinophils Abs 0.0 0.0 - 0.4 x10(3)/mc L [facility] Basophils % 0.3 % [facility] Basophils Abs 0.1 0.0 - 0.1 x10(3)/mc L [facility] Immature Gran % 1.00 % [facility] Comment: Immature granulocytes(IG's)percentage and absolute count will include metamyelocytes, myelocytes, and promyelocytes. Blood smears from CBCs yielding IG's will be scanned manually for concordance. If this scan disagrees with the automated IG or if promyelocytes are noted, a manual differential will be performed. Alicia Gran Abs 0.19(H) 0.00 - 0.04 x10(3)/ L [facility] Blood specimen (specimen) 12/26/2018 4:52 AM EDT 12/26/2018 5:11 AM EDT Narrative Resulting Agency Comment Spec In Lab Aidan ARRIAGA HEMATOLOGY ORDERABLE S [facility] [place] [address] * (ABNORMAL) Hemogram (12/26/2018 4:52 AM EDT) WBC 19.1(H) 4.0 - 9.5 x10(3)/[facility] RBC 4.38(L) 4.58 - 5.54 x10(6)/[facility] Hemoglobin 13.0(L) 13.7 - 16.5 gm/dL [facility] Hematocrit 40.0(L) 40.5 - 48.5 % [facility] MCV 91.3 82.9 - 93.1 [facility] MCH 29.7 27.5 - 32.1 pg [facility] MCHC 32.5 32.0 - 35.7 gm/dL [facility] Platelets 171 145 - 357 x10(3)/[facility] RDWSD 46.0(H) 36.0 - 45.0 [facility] RDWCV 13.5 11.4 - 13.8 % [facility] MPV 9.8 7.6 - 12.9 [facility] nRBC % Auto 0.0 % [facility] nRBC Abs Auto 0.000 0.000 - 0.000 x10(3)/mcL [facility] Blood specimen (specimen) 12/26/2018 4:52 AM EDT 12/26/2018 5:11 AM EDT Narrative Resulting Agency Comment Spec In Lab Aidan ARRIAGA HEMATOLOGY ORDERABLE S [facility] [place] [address] * (ABNORMAL) Basic Metabolic Panel (non-fasting) (12/26/2018 4:52 AM EDT) Glucose Lvl 172 65 - 199 mg/dL [facility] Comment:Diabetes: >=200 mg/d L plus symptoms BUN 21(H) 10 - 20 mg/dL [facility] Creatinine 1.34 0.80 - 1.50 mg/dL [facility] Sodium 133(L) 135 - 145 mmol/L [facility] Potassium 3.7 3.5 - 5.0 mmol/L [facility] Comment: Please note: ??Patients with WBC >100,000 may have falsely elevated Potassium levels. ??For accurate Potassium quantification in these patients send serum separator tube (gold top) for subsequent determinations. ??Contact the Clinical Chemistry Laboratory if there are any questions. Chloride 99 98 - 107 mmol/L [facility] CO2 22 22 - 31 mmol/L [facility] Anion Gap 12 5 - 15 mmol/L [facility] Calcium 8.6 8.5 - 10.5 mg/dL [facility] Estimated GFR 55(L) >=60 mL/min/1. 73 m?? [facility] Comment: The eGFR was calculated using the CKD-EPI equation. As with all creatinine based estimates of kidney function, eGFR values calculated with the CKD-EPI equation are not accurate in patients with acute kidney failure, extremes of body mass or the acutely ill. [email or web address] eGFR 64 >=60 mL/min/1. 73 m?? [facility] Comment: The eGFR was calculated using the CKD-EPI equation. As with all creatinine based estimates of kidney function, eGFR values calculated with the CKD-EPI equation are not accurate in patients with acute kidney failure, extremes of body mass or the acutely ill. [email or web address] Blood specimen (specimen) 12/26/2018 4:52 AM EDT 12/26/2018 5:11 AM EDT Narrative Resulting Agency Comment Spec In Lab Louis De La O MD CHEMISTRY ORDERABLE S Performing Organization Address [facility] de Phone Number [facility] [place] [address] * (ABNORMAL) POCT Glucose (12/25/2018 7:55 PM EDT) POC Glucose 217(H) 65 - 199 mg/dL [facility] Comment: Supplemental ranges: <140 mg/dL before meals <180 mg/dL all other times of the day Blood specimen (specimen) 12/25/2018 7:55 PM EDT 12/25/2018 7:55 PM EDT Louis De La O MD POINT OF CARE TEST ORDERABLES Performing Organization Address [facility] de Phone Number [facility] [place] [address] * POCT Glucose (12/25/2018 3:35 PM EDT) POC Glucose 170 65 - 199 mg/dL [facility] Comment: Supplemental ranges: <140 mg/dL before meals <180 mg/dL all other times of the day Blood specimen (specimen) 12/25/2018 3:35 PM EDT 12/25/2018 3:35 PM EDT Louis De La O MD POINT OF CARE TEST ORDERABLES Performing Organization Address [facility]/State/ZIP Co de Phone Number [facility] [place] [address] * POCT Glucose (12/25/2018 11:21 AM EDT) POC Glucose 196 65 - 199 mg/dL [facility] Comment: Supplemental ranges: <140 mg/dL before meals <180 mg/dL all other times of the day Blood specimen (specimen) 12/25/2018 11:21 AM EDT 12/25/2018 11:21 AM EDT Louis De La O MD POINT OF CARE TEST ORDERABLES Performing Organization Address [facility]/ZIP Co de Phone Number [facility] [place] [address] * POCT Glucose (12/25/2018 7:50 AM EDT) POC Glucose 164 65 - 199 mg/dL [facility] Comment: Supplemental ranges: <140 mg/dL before meals <180 mg/dL all other times of the day Blood specimen (specimen) 12/25/2018 7:50 AM EDT 12/25/2018 7:50 AM EDT Louis De La O MD POINT OF CARE TEST ORDERABLES Performing Organization Address City/[facility]/ZIP Co de Phone Number [facility] [place] [address] * Potassium (12/25/2018 5:41 AM EDT) Potassium 4.1 3.5 - 5.0 mmol/L [facility] Comment: Please note: ??Patients with WBC >100,000 may have falsely elevated Potassium levels. ??For accurate Potassium quantification in these patients send serum separator tube (gold top) for subsequent determinations. ??Contact the Clinical Chemistry Laboratory if there are any questions. Blood specimen (specimen) 12/25/2018 5:41 AM EDT 12/25/2018 5:58 AM EDT Narrative Resulting Agency Comment Spec In Lab Louis De La O MD CHEMISTRY ORDERABLE S Performing Organization Address [facility] Co de Phone Number [facility] [place] [address] * POCT Glucose (12/24/2018 7:54 PM EDT) POC Glucose 175 65 - 199 mg/dL [facility] Comment: Supplemental ranges: <140 mg/dL before meals <180 mg/dL all other times of the day Blood specimen (specimen) 12/24/2018 7:54 PM EDT 12/24/2018 7:54 PM EDT Louis De La O MD POINT OF CARE TEST ORDERABLES Performing Organization Address [facility] Co de Phone Number [facility] [place] [address] * POCT Glucose (12/24/2018 4:18 PM EDT) POC Glucose 189 65 - 199 mg/dL [facility] Comment: Supplemental ranges: <140 mg/dL before meals <180 mg/dL all other times of the day Blood specimen (specimen) 12/24/2018 4:18 PM EDT 12/24/2018 4:18 PM EDT Louis De La O MD POINT OF CARE TEST ORDERABLES Performing Organization Address [facility] Co de Phone Number [facility] [place] [address] * POCT Glucose (12/24/2018 2:17 PM EDT) POC Glucose 149 65 - 199 mg/dL [facility] Comment: Supplemental ranges: <140 mg/dL before meals <180 mg/dL all other times of the day Blood specimen (specimen) 12/24/2018 2:17 PM EDT 12/24/2018 2:17 PM EDT Louis De La O MD POINT OF CARE TEST ORDERABLES [facility] [place] [address] * POCT Glucose (12/24/2018 12:09 PM EDT) POC Glucose 163 65 - 199 mg/dL [facility] Comment: Supplemental ranges: <140 mg/dL before meals <180 mg/dL all other times of the day Blood specimen (specimen) 12/24/2018 12:09 PM EDT 12/24/2018 12:09 PM EDT Louis De La O MD POINT OF CARE TEST ORDERABLES Performing Organization Address City/[facility] Co de Phone Number [facility] [place] [address] * POCT Glucose (12/24/2018 10:30 AM EDT) POC Glucose 168 65 - 199 mg/dL [facility] Comment: Supplemental ranges: <140 mg/dL before meals <180 mg/dL all other times of the day Blood specimen (specimen) 12/24/2018 10:30 AM EDT 12/24/2018 10:30 AM EDT Louis De La O MD POINT OF CARE TEST ORDERABLES Performing Organization Address City/[facility] Co de Phone Number [facility] [place] [address] * POCT Glucose (12/24/2018 7:45 AM EDT) POC Glucose 141 65 - 199 mg/dL [facility] Comment: Supplemental ranges: <140 mg/dL before meals <180 mg/dL all other times of the day Blood specimen (specimen) 12/24/2018 7:45 AM EDT 12/24/2018 7:45 AM EDT Louis De La O MD POINT OF CARE TEST ORDERABLES [facility] [place] [address] * POCT Glucose (12/24/2018 6:13 AM EDT) POC Glucose 151 65 - 199 mg/dL [facility] Comment: Supplemental ranges: <140 mg/dL before meals <180 mg/dL all other times of the day Blood specimen (specimen) 12/24/2018 6:13 AM EDT 12/24/2018 6:13 AM EDT Louis De La O MD POINT OF CARE TEST ORDERABLES Performing Organization Address City/[facility]/ZIP Co de Phone Number [facility] [place] [address] * POCT Glucose (12/24/2018 4:06 AM EDT) POC Glucose 161 65 - 199 mg/dL [facility] Comment: Supplemental ranges: <140 mg/dL before meals <180 mg/dL all other times of the day Blood specimen (specimen) 12/24/2018 4:06 AM EDT 12/24/2018 4:06 AM EDT Louis De La O MD POINT OF CARE TEST ORDERABLES Performing Organization Address [facility]/ZIP Co de Phone Number [facility] [place] [address] * Scan, Peripheral Blood (12/24/2018 4:05 AM EDT) Plat Estimate Normal [facility] RBC Morphology Normal [facility] Blood specimen (specimen) 12/24/2018 4:05 AM EDT 12/24/2018 4:14 AM EDT Narrative Resulting Agency Comment Spec In Lab Aidan ARRIAGA HEMATOLOGY ORDERABLE S Performing Organization Address City/[facility]/ZIP Co de Phone Number [facility] [place] [address] * (ABNORMAL) Differential, Automated (12/24/2018 4:05 AM EDT) Neutrophils % 81.7 % [facility] Neutr Abs (ANC) 11.87(H) 1.70 - 6.10 x10(3)/[facility] Lymphocytes % 6.8 % [facility] Lymphocytes Abs 1.0 0.9 - 3.2 x10(3)/[facility] Monocytes % 10.8 % [facility] Monocyte Abs 1.6(H) 0.3 - 0.9 x10(3)/[facility] Eosinophils % 0.1 % [facility] Eosinophils Abs 0.0 0.0 - 0.4 x10(3)/[facility] Basophils % 0.3 % [facility] Basophils Abs 0.0 0.0 - 0.1 x10(3)/[facility] Immature Gran % 0.30 % [facility] Comment: Immature granulocytes(IG's)percentage and absolute count will include metamyelocytes, myelocytes, and promyelocytes. Blood smears from CBCs yielding IG's will be scanned manually for concordance. If this scan disagrees with the automated IG or if promyelocytes are noted, a manual differential will be performed. Alicia Gran Abs 0.05(H) 0.00 - 0.04 x10(3)/[facility] Blood specimen (specimen) 12/24/2018 4:05 AM EDT 12/24/2018 4:14 AM EDT Narrative Resulting Agency Comment Spec In Lab Adian ARRIAGA HEMATOLOGY ORDERABLE S [facility] [place] [address] * (ABNORMAL) Hemogram (12/24/2018 4:05 AM EDT) WBC 14.5(H) 4.0 - 9.5 x10(3)/[facility] RBC 4.58 4.58 - 5.54 x10(6)/[facility] Hemoglobin 13.6(L) 13.7 - 16.5 gm/dL [facility] Hematocrit 41.0 40.5 - 48.5 % [facility] MCV 89.5 82.9 - 93.1 [facility] MCH 29.7 27.5 - 32.1 pg [facility] MCHC 33.2 32.0 - 35.7 gm/dL [facility] Platelets 164 145 - 357 x10(3)/[facility] RDWSD 45.2(H) 36.0 - 45.0 [facility] RDWCV 13.7 11.4 - 13.8 % [facility] MPV 9.3 7.6 - 12.9 [facility] nRBC % Auto 0.0 % [facility] nRBC Abs Auto 0.000 0.000 - 0.000 x10(3)/[facility] Blood specimen (specimen) 12/24/2018 4:05 AM EDT 12/24/2018 4:14 AM EDT Narrative Resulting Agency Comment Spec In Lab Aidan ARRIAGA HEMATOLOGY ORDERABLE S [facility] [place] [address] * (ABNORMAL) Basic Metabolic Panel (non-fasting) (12/24/2018 4:05 AM EDT) Glucose Lvl 173 65 - 199 mg/dL [facility] Comment:Diabetes: >=200 mg/d L plus symptoms BUN 17 10 - 20 mg/dL [facility] Creatinine 1.12 0.80 - 1.50 mg/dL [facility] Sodium 137 135 - 145 mmol/L [facility] Potassium 4.9 3.5 - 5.0 mmol/L [facility] Comment: Please note: ??Patients with WBC >100,000 may have falsely elevated Potassium levels. ??For accurate Potassium quantification in these patients send serum separator tube (gold top) for subsequent determinations. ??Contact the Clinical Chemistry Laboratory if there are any questions. Chloride 105 98 - 107 mmol/L [facility] CO2 21(L) 22 - 31 mmol/L [facility] Anion Gap 11 5 - 15 mmol/L [facility] Calcium 8.5 8.5 - 10.5 mg/dL [facility] Estimated GFR 68 >=60 mL/min/1. 73 m?? [facility] Comment: The eGFR was calculated using the CKD-EPI equation. As with all creatinine based estimates of kidney function, eGFR values calculated with the CKD-EPI equation are not accurate in patients with acute kidney failure, extremes of body mass or the acutely ill. [email or web address] eGFR 79 >=60 mL/min/1. 73 m?? [facility] Comment: The eGFR was calculated using the CKD-EPI equation. As with all creatinine based estimates of kidney function, eGFR values calculated with the CKD-EPI equation are not accurate in patients with acute kidney failure, extremes of body mass or the acutely ill. [email or web address] Blood specimen (specimen) 12/24/2018 4:05 AM EDT 12/24/2018 4:14 AM EDT Narrative Resulting Agency Comment Spec In Lab Louis De La O MD CHEMISTRY ORDERABLE S [facility] [place] [address] * (ABNORMAL) Troponin (12/24/2018 4:05 AM EDT) Troponin-T 0.17(H) 0.00 - 0.00 ng/mL [facility] Comment: The 99th percentile for Troponin T is less than 0.01 ng/mL, any detectable cTnT concentration using this assay should be considered elevated. According to the third universal definition of myocardial infarction the following criteria with a clinical presentation consistent with acute myocardial ischemia meets the diagnosis for a myocardial infarction (RI). Detection of a rise and/or fall of cTnT, with at least one value greater than the 99th percentile (> or = 0.01) and with at least one of the following ?? Symptoms of ischemia ?? New or presumed new significant HQ-eylboty-Y wave (ST-T) changes or new left bundle branch block (LBBB) ?? Development of pathologic Q waves in the ECG ?? Imaging evidence of new loss of viable myocardium or new regional wall motion abnormality ?? Identification of an intracoronary thrombus by angiography or autopsy Samples for cTnT testing should be obtained serially upon first assessment and again 3 to 6 hours later. If the clinical suspicion is high and previous samples have been negative an additional sample may be indicated. Reference: Third [place] Definition of Myocardial Infarction. Journal of the [place] [employer] 2012;60:1581-98 Blood specimen (specimen) 12/24/2018 4:05 AM EDT 12/24/2018 4:14 AM EDT Narrative Resulting Agency Comment Spec In Lab Louis De La O MD CHEMISTRY ORDERABLE S Performing Organization Address City/[facility]/ZIP Co de Phone Number [facility] [place] [address] * POCT Glucose (12/24/2018 3:03 AM EDT) POC Glucose 143 65 - 199 mg/dL [facility] Comment: Supplemental ranges: <140 mg/dL before meals <180 mg/dL all other times of the day Blood specimen (specimen) 12/24/2018 3:03 AM EDT 12/24/2018 3:03 AM EDT Louis De La O MD POINT OF CARE TEST ORDERABLES [facility] [place] [address] * POCT Glucose (12/24/2018 2:10 AM EDT) POC Glucose 142 65 - 199 mg/dL [facility] Comment: Supplemental ranges: <140 mg/dL before meals <180 mg/dL all other times of the day Blood specimen (specimen) 12/24/2018 2:10 AM EDT 12/24/2018 2:10 AM EDT Louis De La O MD POINT OF CARE TEST ORDERABLES Performing Organization Address City/[facility]/ZIP Co de Phone Number [facility] [place] [address] * POCT Glucose (12/24/2018 1:01 AM EDT) POC Glucose 115 65 - 199 mg/dL [facility] Comment: Supplemental ranges: <140 mg/dL before meals <180 mg/dL all other times of the day Blood specimen (specimen) 12/24/2018 1:01 AM EDT 12/24/2018 1:01 AM EDT Louis De La O MD POINT OF CARE TEST ORDERABLES Performing Organization Address City/[facility] Co de Phone Number [facility] [place] [address] * POCT Glucose (12/24/2018 12:21 AM EDT) POC Glucose 141 65 - 199 mg/dL [facility] Comment: Supplemental ranges: <140 mg/dL before meals <180 mg/dL all other times of the day Blood specimen (specimen) 12/24/2018 12:21 AM EDT 12/24/2018 12:21 AM EDT Louis De La O MD POINT OF CARE TEST ORDERABLES Performing Organization Address City/[facility] Co de Phone Number [facility] [place] [address] * POCT Glucose (12/23/2018 9:51 PM EDT) POC Glucose 123 65 - 199 mg/dL [facility] Comment: Supplemental ranges: <140 mg/dL before meals <180 mg/dL all other times of the day Blood specimen (specimen) 12/23/2018 9:51 PM EDT 12/23/2018 9:51 PM EDT Louis De La O MD POINT OF CARE TEST ORDERABLES Performing Organization Address City/[facility]/ZIP Co de Phone Number [facility] [place] [address] * POCT Glucose (12/23/2018 8:53 PM EDT) POC Glucose 127 65 - 199 mg/dL [facility] Comment: Supplemental ranges: <140 mg/dL before meals <180 mg/dL all other times of the day Blood specimen (specimen) 12/23/2018 8:53 PM EDT 12/23/2018 8:53 PM EDT Louis De La O MD POINT OF CARE TEST ORDERABLES Performing Organization Address City/[facility]/ZIP Co de Phone Number [facility] [place] [address] * POCT Glucose (12/23/2018 8:04 PM EDT) POC Glucose 103 65 - 199 mg/dL [facility] Comment: Supplemental ranges: <140 mg/dL before meals <180 mg/dL all other times of the day Blood specimen (specimen) 12/23/2018 8:04 PM EDT 12/23/2018 8:04 PM EDT Lousi De La O MD POINT OF CARE TEST ORDERABLES Performing Organization Address City/[facility]/ZIP Co de Phone Number [facility] [place] [address] * POCT Glucose (12/23/2018 6:54 PM EDT) POC Glucose 94 65 - 199 mg/dL [facility] Comment: Supplemental ranges: <140 mg/dL before meals <180 mg/dL all other times of the day Blood specimen (specimen) 12/23/2018 6:54 PM EDT 12/23/2018 6:54 PM EDT Louis De La O MD POINT OF CARE TEST ORDERABLES [facility] [place] [address] * POCT Glucose (12/23/2018 6:30 PM EDT) POC Glucose 86 65 - 199 mg/dL [facility] Comment: Supplemental ranges: <140 mg/dL before meals <180 mg/dL all other times of the day Blood specimen (specimen) 12/23/2018 6:30 PM EDT 12/23/2018 6:30 PM EDT Louis De La O MD POINT OF CARE TEST ORDERABLES Performing Organization Address City/[facility]/ZIP Co de Phone Number [facility] [place] [address] * POCT Glucose (12/23/2018 5:59 PM EDT) POC Glucose 99 65 - 199 mg/dL [facility] Comment: Supplemental ranges: <140 mg/dL before meals <180 mg/dL all other times of the day Blood specimen (specimen) 12/23/2018 5:59 PM EDT 12/23/2018 5:59 PM EDT Louis De La O MD POINT OF CARE TEST ORDERABLES Performing Organization Address City/[facility]/ZIP Co de Phone Number [facility] [place] [address] * POCT Glucose (12/23/2018 5:21 PM EDT) POC Glucose 116 65 - 199 mg/dL [facility] Comment: Supplemental ranges: <140 mg/dL before meals <180 mg/dL all other times of the day Blood specimen (specimen) 12/23/2018 5:21 PM EDT 12/23/2018 5:21 PM EDT Louis De La O MD POINT OF CARE TEST ORDERABLES Performing Organization Address [facility] Co de Phone Number [facility] [address] * POCT Glucose (12/23/2018 4:47 PM EDT) POC Glucose 113 65 - 199 mg/dL [facility] Comment: Supplemental ranges: <140 mg/dL before meals <180 mg/dL all other times of the day Blood specimen (specimen) 12/23/2018 4:47 PM EDT 12/23/2018 4:47 PM EDT Louis De La O MD POINT OF CARE TEST ORDERABLES Performing Organization Address [facility] Co de Phone Number [facility] [place] [address] * POCT Glucose (12/23/2018 4:20 PM EDT) POC Glucose 122 65 - 199 mg/dL [facility] Comment: Supplemental ranges: <140 mg/dL before meals <180 mg/dL all other times of the day Blood specimen (specimen) 12/23/2018 4:20 PM EDT 12/23/2018 4:20 PM EDT Louis De La O MD POINT OF CARE TEST ORDERABLES Performing Organization Address [facility] Co de Phone Number [facility] [place] [address] * Hemoglobin (12/23/2018 3:40 PM EDT) Hemoglobin 13.7 13.7 - 16.5 gm/dL [facility] Blood specimen (specimen) 12/23/2018 3:40 PM EDT 12/23/2018 3:56 PM EDT Narrative Resulting Agency Comment Spec In Lab Louis De La O MD HEMATOLOGY ORDERABL ES Performing Organization Address [facility] Co de Phone Number [facility] [place] [address] * Potassium (12/23/2018 3:40 PM EDT) Potassium 4.2 3.5 - 5.0 mmol/L [facility] Comment: Please note: ??Patients with WBC >100,000 may have falsely elevated Potassium levels. ??For accurate Potassium quantification in these patients send serum separator tube (gold top) for subsequent determinations. ??Contact the Clinical Chemistry Laboratory if there are any questions. Blood specimen (specimen) 12/23/2018 3:40 PM EDT 12/23/2018 3:56 PM EDT Narrative Resulting Agency Comment Spec In Lab Louis De La O MD CHEMISTRY ORDERABLE S Performing Organization Address [facility] de Phone Number [facility] [place] [address] * POCT Glucose (12/23/2018 3:35 PM EDT) [facility] POC Glucose 141 65 - 199 mg/dL [facility] Comment: Supplemental ranges: <140 mg/dL before meals <180 mg/dL all other times of the day Blood specimen (specimen) 12/23/2018 3:35 PM EDT 12/23/2018 3:35 PM EDT Louis De La O MD POINT OF CARE TEST ORDERABLES Performing Organization Address [facility] Co de Phone Number [facility] [place] [address] * (ABNORMAL) BLOOD GAS 2 ARTERIAL (12/23/2018 2:39 PM EDT) pH Art 7.35 7.35 - 7.45 [facility] pCO2 Art 40 35 - 45 mmHg [facility] pO2 Art 114(H) 85 - 104 mmHg [facility] HCO3 Art 21.3 20.0 - 26.0 mmol/L [facility] BE Art -4.4(L) -3.0 - 3.0 mmol/L [facility] Hgb Blood Gas 14.7 13.7 - 16.5 gm/dL [facility] O2HB Art 96.7 94.0 - 97.0 % [facility] COHB Art 0.2 % [facility] Comment: Nonsmokers: 0.5-1.5% COHB Smokers: Variable, but usually less than 10% Toxic: 20-30% COHB Lethal: Greater than 60% COHB METHB Art 0.5 <=1.5 % [facility] Na Whole Blood 134(L) 135 - 145 mmol/L [facility] K Whole Blood 3.9 3.5 - 5.0 mmol/L [facility] Comment: Please note: Patients with WBC >100,000 may have falsely elevated Potassium levels. Contact the Clinical Chemistry Laboratory if there are any questions. ICa Whole Blood 1.21 1.15 - 1.33 mmol/L [facility] Comment: Note: ??Total bilirubin higher than 20 mg/dL may lead to falsely low ionized calcium. CL Whole Blood 106 98 - 107 mmol/L [facility] Gluc Whole Bld 171 65 - 199 mg/dL [facility] Comment:Diabetes: >=200 mg/d L plus symptoms. Lactate WB 2.9(H) 0.5 - 2.2 mmol/L [facility] FIO2 Art 40 % [facility] PF Ratio Art 285 [facility] Blood specimen (specimen) 12/23/2018 2:39 PM EDT 12/23/2018 2:39 PM EDT Louis De La O MD CHEMISTRY ORDERABLE S [facility] [place] [address] * POCT Glucose (12/23/2018 1:53 PM EDT) [facility] POC Glucose 197 65 - 199 mg/dL [facility] Comment: Supplemental ranges: <140 mg/dL before meals <180 mg/dL all other times of the day Blood specimen (specimen) 12/23/2018 1:53 PM EDT 12/23/2018 1:53 PM EDT Louis De La O MD POINT OF CARE TEST ORDERABLES Performing Organization Address City/State/[facility] Co de Phone Number [facility] [place] [address] * (ABNORMAL) BLOOD GAS 2 ARTERIAL (12/23/2018 12:43 PM EDT) [facility] pH Art 7.36 7.35 - 7.45 [facility] pCO2 Art 34(L) 35 - 45 mmHg [facility] pO2 Art 154(H) 85 - 104 mmHg [facility] HCO3 Art 19.2(L) 20.0 - 26.0 mmol/L [facility] BE Art -6.6(L) -3.0 - 3.0 mmol/L [facility] Hgb Blood Gas 14.4 13.7 - 16.5 gm/dL [facility] O2HB Art 96.6 94.0 - 97.0 % [facility] COHB Art 1.3 % [facility] Comment: Nonsmokers: 0.5-1.5% COHB Smokers: Variable, but usually less than 10% Toxic: 20-30% COHB Lethal: Greater than 60% COHB METHB Art 0.6 <=1.5 % [facility] Na Whole Blood 134(L) 135 - 145 mmol/L [facility] K Whole Blood 3.6 3.5 - 5.0 mmol/L [facility] Comment: Please note: Patients with WBC >100,000 may have falsely elevated Potassium levels. Contact the Clinical Chemistry Laboratory if there are any questions. ICa Whole Blood 1.19 1.15 - 1.33 mmol/L [facility] Comment: Note: ??Total bilirubin higher than 20 mg/dL may lead to falsely low ionized calcium. CL Whole Blood 107 98 - 107 mmol/L [facility] Gluc Whole Bld 201(H) 65 - 199 mg/dL [facility] Comment:Diabetes: >=200 mg/d L plus symptoms. Lactate WB 2.0 0.5 - 2.2 mmol/L [facility] FIO2 Art 60 % [facility] PF Ratio Art 257 [facility] Temp Art 35.9 Celsius [facility] Blood specimen (specimen) 12/23/2018 12:43 PM EDT 12/23/2018 12:43 PM EDT Louis De La O MD CHEMISTRY ORDERABLE S Performing Organization Address [facility] Co de Phone Number [facility] [place] [address] * EKG 12 Lead (12/23/2018 12:06 PM EDT) Ventricular rate 64 BPM MUSE SYSTEM Atrial Rate 78 BPM MUSE SYSTEM P-R Interval 280 ms MUSE SYSTEM QRS Duration 92 ms MUSE SYSTEM Q-T Interval 408 ms MUSE SYSTEM QTC Calculated (Bezet) 420 ms MUSE SYSTEM Calculated P [place] 46 degrees MUSE SYSTEM Calculated R [place] 14 degrees MUSE SYSTEM Calculated T [place] 52 degrees MUSE SYSTEM INTERPRETATION Demand pacemaker; interpretation is based on intrinsic rhythm Sinus rhythm with marked sinus arrhythmia with 1st degree A-V block with Premature ventricular complexes or Fusion complexes with ventricular escape complexes Possible Inferior infarct (cited on or before 23-FEB-2009) Abnormal ECG Confirmed by JOE, ??NAKUL DIAZ ([id number]) on 12/23/2018 4:01:39 PM MUSE SYSTEM 12/23/2018 12:0 6 PM EDT 12/23/2018 4:01 PM EDT Louis De La O MD ECG ORDERABLES Performing Organization Address [facility] Co de Phone Number MUSE SYSTEM * XR Chest One View (12/23/2018 12:01 PM EDT) Anatomical Region Laterality Modality Chest N/A Digital Radiogra phy Impressions 12/23/2018 12:25 PM EDT Satisfactory equipment position. Question tiny left apical pneumothorax. Thank you for letting us participate in the care of this patient. For questions regarding this report, please contact the number below. ? Electronically signed by: Shannon Long [facility] ([phone]), at 12/23/2018 12:25 PM Narrative 12/23/2018 12:25 PM EDT EXAMINATION: XR CHEST ONE VIEW CLINICAL HISTORY: s/p CABG TECHNIQUE: Portable AP chest radiograph on ??12/23/2018 at 1155 hours. COMPARISON: 12/21/2018. FINDINGS: Endotracheal tube approximately 4 cm above the rylee. Right IJ introducer with PA catheter in the RVOT or possibly main pulmonary artery. Two subxiphoid drains are present. Mediastinal surgical clips and intact sternotomy wires are seen. No appreciable pneumothorax on the right. Question tiny left apical pneumothorax. Subsegmental atelectasis in the retrocardiac left lower lobe. Right lung appears clear. No appreciable pleural effusion. Unchanged cardia mediastinal silhouette and vascular markings allowing for AP projection magnification. Procedure Note Shannon Long MD - 12/23/2018 EXAMINATION: XR CHEST ONE VIEW CLINICAL HISTORY: s/p CABG TECHNIQUE: Portable AP chest radiograph on 12/23/2018 at 1155 hours. COMPARISON: 12/21/2018. FINDINGS: Endotracheal tube approximately 4 cm above the rylee. RightIJ introducer with PA catheter in the RVOT or possibly main pulmonary artery.Two subxiphoid drains are present. Mediastinal surgical clips and intactsternotomy wires are seen. No appreciable pneumothorax on the right. Question tinyleft apical pneumothorax. Subsegmental atelectasis in the retrocardiac leftlower lobe. Right lung appears clear. No appreciable pleural effusion.Unchanged cardia mediastinal silhouette and vascular markings allowing for APprojection magnification. IMPRESSION Satisfactory equipment position. Question tiny left apical pneumothorax. Thank you for letting us participate in the care of this patient. Forquestions regarding this report, please contact the number below. Electronically signed by: Shannon Long [facility]([phone]), at 12/23/2018 12:25 PM Louis De La O MD IMG DX ORDERABLES * (ABNORMAL) BLOOD GAS 2 ARTERIAL (12/23/2018 11:47 AM EDT) pH Art 7.33(L) 7.35 - 7.45 [facility] pCO2 Art 40 35 - 45 mmHg [facility] pO2 Art 102 85 - 104 mmHg [facility] HCO3 Art 20.8 20.0 - 26.0 mmol/L [facility] BE Art -5.1(L) -3.0 - 3.0 mmol/L [facility] Hgb Blood Gas 14.1 13.7 - 16.5 gm/dL [facility] O2HB Art 95.0 94.0 - 97.0 % [facility] COHB Art 1.3 % [facility] Comment: Nonsmokers: 0.5-1.5% COHB Smokers: Variable, but usually less than 10% Toxic: 20-30% COHB Lethal: Greater than 60% COHB METHB Art 0.6 <=1.5 % [facility] Na Whole Blood 132(L) 135 - 145 mmol/L [facility] K Whole Blood 4.0 3.5 - 5.0 mmol/L [facility] Comment: Please note: Patients with WBC >100,000 may have falsely elevated Potassium levels. Contact the Clinical Chemistry Laboratory if there are any questions. ICa Whole Blood 1.22 1.15 - 1.33 mmol/L [facility] Comment: Note: ??Total bilirubin higher than 20 mg/dL may lead to falsely low ionized calcium. CL Whole Blood 105 98 - 107 mmol/L [facility] Gluc Whole Bld 257(H) 65 - 199 mg/dL [facility] Comment:Diabetes: >=200 mg/d L plus symptoms. Lactate WB 2.0 0.5 - 2.2 mmol/L [facility] FIO2 Art 100 % [facility] PF Ratio Art 102 [facility] Blood specimen (specimen) 12/23/2018 11:47 AM EDT 12/23/2018 11:47 AM EDT Louis De La O MD CHEMISTRY ORDERABLE S Performing Organization Address [facility] Co de Phone Number [facility] [place] [address] * Fibrinogen (12/23/2018 10:30 AM EDT) Fibrinogen 272 200 - 393 mg/dL [facility] Comment: A fibrinogen level >100 mg/dL is adequate for hemostasis in most patients without underlying bleeding disorders. Blood specimen (specimen) 12/23/2018 10:30 AM EDT 12/23/2018 10:32 AM EDT Narrative Resulting Agency Comment Spec In Lab Vira Bañuelos MD HEMATOLOGY ORDERABLE S Performing Organization Address [facility] Co de Phone Number [facility] [place] [address] * APTT (12/23/2018 10:30 AM EDT) PTT 29 25 - 37 sec [facility] Comment: The PTT is NOT appropriate for heparin monitoring. Use the Anti-Xa level for heparin monitoring (HEP UFH) or LMWH monitoring (HEP LMW). A PTT less than 37 seconds generally indicates adequate hemostasis. Blood specimen (specimen) 12/23/2018 10:30 AM EDT 12/23/2018 10:32 AM EDT Narrative Resulting Agency Comment Spec In Lab Vira Bañuelos MD HEMATOLOGY ORDERABLE S Performing Organization Address City/[facility]/ZIP Co de Phone Number [facility] [place] [address] * (ABNORMAL) Prothrombin Time (12/23/2018 10:30 AM EDT) PT 13.7(H) 9.4 - 12.5 sec [facility] Comment:Called by: lts, Read back by: Kevin Hobson [id number], Date/Time:12/23/18 10:47. INR 1.2 [facility] Comment: An INR <2.0 indicates adequate procoagulant activity for hemostasis in most patients without underlying bleeding disorders, though the INR may not adequately reflect hemostatic capacity in patients with liver disease and synthetic impairment. The recommended target INR range for therapeutic anticoagulation is 2.0 ? 3.0 for most applications, though lower and higher ranges may be appropriate depending on clinical circumstances. Blood specimen (specimen) 12/23/2018 10:30 AM EDT 12/23/2018 10:32 AM EDT Narrative Resulting Agency Comment Spec In Lab Vira Bañuelos MD HEMATOLOGY ORDERABLE S Performing Organization Address [facility]/ZIP Co de Phone Number [facility] [place] [address] * (ABNORMAL) Hemogram (12/23/2018 10:30 AM EDT) WBC 16.9(H) 4.0 - 9.5 x10(3)/[facility] RBC 3.80(L) 4.58 - 5.54 x10(6)/[facility] Hemoglobin 11.5(L) 13.7 - 16.5 gm/dL [facility] Hematocrit 34.7(L) 40.5 - 48.5 % [facility] Comment: This result has been called to KEVIN HOBSON by Onelia Ramírez on 12 23 2018 at 1039, and has been read back. MCV 91.3 82.9 - 93.1 fL [facility] MCH 30.3 27.5 - 32.1 pg [facility] MCHC 33.1 32.0 - 35.7 gm/dL [facility] Platelets 124(L) 145 - 357 x10(3)/[facility]ORY RDWSD 45.1(H) 36.0 - 45.0 [facility]ORY RDWCV 13.3 11.4 - 13.8 % [facility] MPV 9.1 7.6 - 12.9 [facility]ORY nRBC % Auto 0.0 % [facility] nRBC Abs Auto 0.000 0.000 - 0.000 x10(3)/[facility] Blood specimen (specimen) 12/23/2018 10:30 AM EDT 12/23/2018 10:32 AM EDT Narrative Resulting Agency Comment Spec In Lab Vira Bañuelos MD HEMATOLOGY ORDERABLE S [facility] [place] [address] * (ABNORMAL) BLOOD GAS 2 ARTERIAL (12/23/2018 10:26 AM EDT) pH Art 7.37 7.35 - 7.45 [facility] pCO2 Art 36 35 - 45 mmHg [facility] pO2 Art 316(H) 85 - 104 mmHg [facility] HCO3 Art 20.4 20.0 - 26.0 mmol/L [facility] BE Art -5.1(L) -3.0 - 3.0 mmol/L [facility] Hgb Blood Gas 12.1(L) 13.7 - 16.5 gm/dL [facility] O2HB Art 97.8(H) 94.0 - 97.0 % [facility] COHB Art 1.2 % [facility] Comment: Nonsmokers: 0.5-1.5% COHB Smokers: Variable, but usually less than 10% Toxic: 20-30% COHB Lethal: Greater than 60% COHB METHB Art 0.3 <=1.5 % [facility] Na Whole Blood 128(L) 135 - 145 mmol/L [facility] K Whole Blood 5.3(H) 3.5 - 5.0 mmol/L [facility] Comment: Please note: Patients with WBC >100,000 may have falsely elevated Potassium levels. Contact the Clinical Chemistry Laboratory if there are any questions. ICa Whole Blood 1.35(H) 1.15 - 1.33 mmol/L [facility] Comment: Note: ??Total bilirubin higher than 20 mg/dL may lead to falsely low ionized calcium. CL Whole Blood 104 98 - 107 mmol/L [facility] Gluc Whole Bld 271(H) 65 - 199 mg/dL [facility] Comment:Diabetes: >=200 mg/d L plus symptoms. Lactate WB 2.4(H) 0.5 - 2.2 mmol/L [facility] FIO2 Art 97 % [facility] Flow Art 2.6 LPM [facility] PF Ratio Art 326 [facility] Temp Art 35.9 Celsius [facility] Blood specimen (specimen) 12/23/2018 10:26 AM EDT 12/23/2018 10:26 AM EDT Louis De La O MD CHEMISTRY ORDERABLE S Performing Organization Address City/State/[facility] Co de Phone Number [facility] [place] [address] * Prepare Platelets, Apheresis (12/23/2018 10:25 AM EDT) Dispensed? Yes [facility] Blood specimen (specimen) 12/23/2018 10:25 AM EDT 12/23/2018 10:25 AM EDT Louis De La O MD BLOOD BANK PRODUCT ORDERABLES [facility] [place] [address] * (ABNORMAL) BLOOD GAS 2 ARTERIAL (12/23/2018 9:40 AM EDT) pH Art 7.38 7.35 - 7.45 [facility] pCO2 Art 36 35 - 45 mmHg [facility] pO2 Art 394(H) 85 - 104 mmHg [facility] HCO3 Art 21.0 20.0 - 26.0 mmol/L [facility] BE Art -4.1(L) -3.0 - 3.0 mmol/L [facility] Hgb Blood Gas 11.8(L) 13.7 - 16.5 gm/dL [facility] O2HB Art 98.0(H) 94.0 - 97.0 % [facility] COHB Art 1.1 % [facility] Comment: Nonsmokers: 0.5-1.5% COHB Smokers: Variable, but usually less than 10% Toxic: 20-30% COHB Lethal: Greater than 60% COHB METHB Art 0.3 <=1.5 % [facility] Na Whole Blood 129(L) 135 - 145 mmol/L [facility] K Whole Blood 6.2(Critic al) 3.5 - 5.0 mmol/L [facility] Comment: Noted by inspector optical instrument. Please note: Patients with WBC >100,000 may have falsely elevated Potassium levels. Contact the Clinical Chemistry Laboratory if there are any questions. ICa Whole Blood 0.92(Criti kyle) 1.15 - 1.33 mmol/L [facility] Comment: Noted by inspector optical instrument. Note: ??Total bilirubin higher than 20 mg/dL may lead to falsely low ionized calcium. CL Whole Blood 103 98 - 107 mmol/L [facility] Gluc Whole Bld 289(H) 65 - 199 mg/dL [facility] Comment:Diabetes: >=200 mg/d L plus symptoms. Lactate WB 1.8 0.5 - 2.2 mmol/L [facility] Blood specimen (specimen) 12/23/2018 9:40 AM EDT 12/23/2018 9:40 AM EDT Louis De La O MD CHEMISTRY ORDERABLE S Performing Organization Address [facility] Co de Phone Number [facility] [place] [address] * (ABNORMAL) Platelet count (12/23/2018 9:35 AM EDT) Platelets 103(L) 145 - 357 x10(3)/mc L [facility] Plat Immature % 2.3 0.0 - 7.4 % [facility] Comment: Limitation of the Immature Platelet Fraction (IPF)-May be less reliable when the platelet count is less than 36w027/uL due to statistical imprecision. The IPF value provides an assessment of the Bone Marrow production status. ??It is useful in differentiating Thrombocytopenia caused by platelet destruction/consumption versus decreased production. It also helps to determine the imminent release of platelets and can be therefore a helpful parameter in Chemotherapy and Bone marrow transplant patients. ELEVATED IPF value: ?? When the bone marrow is in a state of over production such as when increased destruction and consumption are the underlying issue. ?? When the marrow is recovering post chemotherapy or bone marrow transplant. LOW to NORMAL IPF value: ?? When the bone marrow in not responding and is in a decreased state of production. References: [employer] The Clinical Value of the Immature Platelet Fraction (IPF) in Cell Recovery Document Number 10-1143 08/2010 [employer] The Role of the Immature Platelet Fraction (IPF) in the Differential Diagnosis of Thrombocytopenia, Document [id number] V007/25/13 P0514 Blood specimen (specimen) 12/23/2018 9:35 AM EDT 12/23/2018 9:43 AM EDT Narrative Resulting Agency Comment Spec In Lab Louis De La O MD HEMATOLOGY ORDERABL ES Performing Organization Address [facility] Co de Phone Number [facility] [place] [address] * (ABNORMAL) Hemoglobin and Hematocrit, blood (12/23/2018 9:35 AM EDT) Hemoglobin 10.9(L) 13.7 - 16.5 gm/dL [facility] Hematocrit 33.1(L) 40.5 - 48.5 % [facility] Comment: This result has been called to KEVIN HOBSON by Onelia Ramírez on 12 23 2018 at 0959, and has been read back. Blood specimen (specimen) 12/23/2018 9:35 AM EDT 12/23/2018 9:43 AM EDT Narrative Resulting Agency Comment Spec In Lab Louis De La O MD HEMATOLOGY ORDERABL ES Performing Organization Address [facility]/ZIP Co de Phone Number [facility] [place] [address] * Fibrinogen (12/23/2018 9:35 AM EDT) Fibrinogen 254 200 - 393 mg/dL [facility] Comment: Called by: , Read back by: KEVIN BRUNO_, Date/Time:_12/23/18 10:21. A fibrinogen level >100 mg/dL is adequate for hemostasis in most patients without underlying bleeding disorders. Blood specimen (specimen) 12/23/2018 9:35 AM EDT 12/23/2018 9:43 AM EDT Narrative Resulting Agency Comment Spec In Lab Louis De La O MD HEMATOLOGY ORDERABL ES Performing Organization Address City/[facility]/ZIP Co de Phone Number [facility] [place] [address] * (ABNORMAL) BLOOD GAS 2 VENOUS (12/23/2018 9:11 AM EDT) pH Ru 7.24(Criti kyle) 7.32 - 7.42 [facility] Comment:Noted by inspector optical instrument. pCO2 Ru 55(H) 41 - 51 mmHg [facility] pO2 Ru 56(H) 25 - 40 mmHg [facility] HCO3 Ru 23.0 mmol/L [facility] BE Ru -4.4 mmol/L [facility] Hgb Blood Gas 12.7(L) 13.7 - 16.5 gm/dL [facility] O2HB Ru 84.1 % [facility] COHB Ru 1.3 % [facility] Comment: Nonsmokers: 0.5-1.5% COHB Smokers: Variable, but usually less than 10% Toxic: 20-30% COHB Lethal: Greater than 60% COHB METHB Ru 0.3 <=1.5 % [facility] Na Whole Blood 134(L) 135 - 145 mmol/L [facility] K Whole Blood 4.5 3.5 - 5.0 mmol/L [facility] Comment: Please note: Patients with WBC >100,000 may have falsely elevated Potassium levels. Contact the Clinical Chemistry Laboratory if there are any questions. ICa Whole Blood 1.04(L) 1.15 - 1.33 mmol/L [facility] Comment: Note: ??Total bilirubin higher than 20 mg/dL may lead to falsely low ionized calcium. CL Whole Blood 104 98 - 107 mmol/L [facility] Gluc Whole Bld 171 65 - 199 mg/dL [facility] [facility] Comment:Diabetes: >=200 mg/d L plus symptoms Lactate WB 1.1 0.5 - 2.2 mmol/L [facility] BGas Source Venous [facility] Blood specimen (specimen) 12/23/2018 9:11 AM EDT 12/23/2018 9:11 AM EDT Louis De La O MD CHEMISTRY ORDERABLE S [facility] [place] [place] [address] * (ABNORMAL) BLOOD GAS 2 ARTERIAL (12/23/2018 9:11 AM EDT) pH Art 7.32(L) 7.35 - 7.45 [facility] pCO2 Art 43 35 - 45 mmHg [facility] pO2 Art 358(H) 85 - 104 mmHg [facility] HCO3 Art 21.6 20.0 - 26.0 mmol/L [facility] BE Art -4.5(L) -3.0 - 3.0 mmol/L [facility] Hgb Blood Gas 12.2(L) 13.7 - 16.5 gm/dL [facility] O2HB Art 97.7(H) 94.0 - 97.0 % [facility] COHB Art 1.5 % [facility] Comment: Nonsmokers: 0.5-1.5% COHB Smokers: Variable, but usually less than 10% Toxic: 20-30% COHB Lethal: Greater than 60% COHB METHB Art 0.3 <=1.5 % [facility] Na Whole Blood 134(L) 135 - 145 mmol/L [facility] K Whole Blood 5.1(H) 3.5 - 5.0 mmol/L [facility] Comment: Please note: Patients with WBC >100,000 may have falsely elevated Potassium levels. Contact the Clinical Chemistry Laboratory if there are any questions. ICa Whole Blood 0.92(Criti kyle) 1.15 - 1.33 mmol/L [facility] Comment: Noted by inspector optical instrument. Note: ??Total bilirubin higher than 20 mg/dL may lead to falsely low ionized calcium. CL Whole Blood 104 98 - 107 mmol/L [facility] Gluc Whole Bld 194 65 - 199 mg/dL [facility] Comment:Diabetes: >=200 mg/d L plus symptoms. Lactate WB 1.1 0.5 - 2.2 mmol/L [facility] Blood specimen (specimen) 12/23/2018 9:11 AM EDT 12/23/2018 9:11 AM EDT Louis De La O MD CHEMISTRY ORDERABLE S [facility] [place] [address] * (ABNORMAL) BLOOD GAS 2 ARTERIAL (12/23/2018 8:15 AM EDT) pH Art 7.38 7.35 - 7.45 [facility] pCO2 Art 39 35 - 45 mmHg [facility] pO2 Art 406(H) 85 - 104 mmHg [facility] HCO3 Art 22.5 20.0 - 26.0 mmol/L [facility] BE Art -2.9 -3.0 - 3.0 mmol/L [facility] Hgb Blood Gas 14.9 13.7 - 16.5 gm/dL [facility] O2HB Art 98.0(H) 94.0 - 97.0 % [facility] COHB Art 1.3 % [facility] Comment: Nonsmokers: 0.5-1.5% COHB Smokers: Variable, but usually less than 10% Toxic: 20-30% COHB Lethal: Greater than 60% COHB METHB Art 0.3 <=1.5 % [facility] Na Whole Blood 136 135 - 145 mmol/L [facility] K Whole Blood 3.9 3.5 - 5.0 mmol/L [facility] Comment: Please note: Patients with WBC >100,000 may have falsely elevated Potassium levels. Contact the Clinical Chemistry Laboratory if there are any questions. ICa Whole Blood 1.11(L) 1.15 - 1.33 mmol/L [facility] Comment: Note: ??Total bilirubin higher than 20 mg/dL may lead to falsely low ionized calcium. CL Whole Blood 104 98 - 107 mmol/L [facility] Gluc Whole Bld 167 65 - 199 mg/dL [facility] Comment:Diabetes: >=200 mg/d L plus symptoms. Lactate WB 1.2 0.5 - 2.2 mmol/L [facility] FIO2 Art 94 % [facility] Flow Art 1.1 LPM [facility] PF Ratio Art 432 [facility] Temp Art 35.7 Celsius [facility] Blood specimen (specimen) 12/23/2018 8:15 AM EDT 12/23/2018 8:15 AM EDT Louis De La O MD CHEMISTRY ORDERABLE S Performing Organization Address [facility] Co de Phone Number [facility] [place] [place] [address] * (ABNORMAL) Urinalysis without microscopic (12/23/2018 7:20 AM EDT) Glucose UA Negative Negative mg/dL [facility] Protein UA 30(A) Negative mg/dL [facility] Bilirubin UA Negative Negative mg/dL [facility] Comment: Clinical correlation required for positive Urine Bilirubin results as false positive may occur with some drugs and drug related products. If a false positive is suspected a serum total bilirubin should be considered if clinically indicated. Urobilinogen UA Normal Normal mg/dL [facility] pH UA 6.0 5.0 - 8.0 [facility] Blood UA Negative Negative mg/dL [facility] Ketones UA Negative Negative mg/dL [facility] Nitrite UA Negative Negative [facility] Leukocytes UA Negative Negative mcL [facility] Appearance UA Clear Clear [facility] Spec [place] UA 1.021 1.002 - 1.030 [facility] Color UA Yellow Yellow [facility] Urine specimen (specimen) 12/23/2018 7:20 AM EDT 12/23/2018 8:00 AM EDT Narrative Resulting Agency Comment Spec In Lab Marlo Keith MD URINE ORDERABLES Performing Organization Address [facility]/ZIP Co de Phone Number [facility] [place] [place] [address] * EKG 12 Lead (12/23/2018 7:18 AM EDT) Ventricular rate 68 BPM MUSE SYSTEM Atrial Rate 68 BPM MUSE SYSTEM P-R Interval 212 ms MUSE SYSTEM QRS Duration 84 ms MUSE SYSTEM Q-T Interval 376 ms MUSE SYSTEM QTC Calculated (Bezet) 399 ms MUSE SYSTEM Calculated P [place] 57 degrees MUSE SYSTEM Calculated R [place] 4 degrees MUSE SYSTEM Calculated T [place] 69 degrees MUSE SYSTEM INTERPRETATION Sinus rhythm with 1st degree A-V block Inferior infarct (cited on or before 23-FEB-2009) Abnormal ECG When compared with ECG of 23-FEB-2009 16:24, ND interval has increased Improvement in T wave morphology in anterolateral leads Confirmed by MD Amado, Irwin ([id number]) on 12/23/2018 8:52:28 AM MUSE SYSTEM 12/23/2018 7:18 AM EDT 12/23/2018 8:52 AM EDT Louis De La O MD ECG ORDERABLES MUSE SYSTEM * (ABNORMAL) Differential, Automated (12/23/2018 7:10 AM EDT) Pathologist [facility] Neutrophils % 70.5 % [facility] Neutr Abs (ANC) 5.34 1.70 - 6.10 x10(3)/ L [facility] Lymphocytes % 14.1 % [facility] Lymphocytes Abs 1.1 0.9 - 3.2 x10(3)/ L [facility] Monocytes % 12.5 % [facility] Monocyte Abs 1.0(H) 0.3 - 0.9 x10(3)/mc L [facility] Eosinophils % 1.7 % [facility] Eosinophils Abs 0.1 0.0 - 0.4 x10(3)/mc L [facility] Basophils % 1.1 % [facility] Basophils Abs 0.1 0.0 - 0.1 x10(3)/mc L [facility] Immature Gran % 0.10 % [facility] Comment: Immature granulocytes(IG's)percentage and absolute count will include metamyelocytes, myelocytes, and promyelocytes. Blood smears from CBCs yielding IG's will be scanned manually for concordance. If this scan disagrees with the automated IG or if promyelocytes are noted, a manual differential will be performed. Alicia Gran Abs 0.01 0.00 - 0.04 x10(3)/mc L [facility] Blood specimen (specimen) 12/23/2018 7:10 AM EDT 12/23/2018 7:18 AM EDT Narrative Resulting Agency Comment Spec In Lab Louis De La O MD HEMATOLOGY ORDERABL ES [facility] [place] [address] * Hemogram (12/23/2018 7:10 AM EDT) WBC 7.6 4.0 - 9.5 x10(3)/[facility] RBC 4.81 4.58 - 5.54 x10(6)/[facility] Hemoglobin 14.2 13.7 - 16.5 gm/dL [facility] Hematocrit 43.2 40.5 - 48.5 % [facility] MCV 89.8 82.9 - 93.1 [facility] MCH 29.5 27.5 - 32.1 pg [facility] MCHC 32.9 32.0 - 35.7 gm/dL [facility] Platelets 323 145 - 357 x10(3)/[facility] RDWSD 44.7 36.0 - 45.0 [facility] RDWCV 13.4 11.4 - 13.8 % [facility] MPV 9.6 7.6 - 12.9 [facility] nRBC % Auto 0.0 % [facility] nRBC Abs Auto 0.000 0.000 - 0.000 x10(3)/[facility] Blood specimen (specimen) 12/23/2018 7:10 AM EDT 12/23/2018 7:18 AM EDT Narrative Resulting Agency Comment Spec In Lab Louis De La O MD HEMATOLOGY ORDERABL ES [facility] [place] [address] * (ABNORMAL) CMP w/fasting Glucose (12/23/2018 7:10 AM EDT) Glucose Fasting 150(H) 65 - 99 mg/dL [facility] Comment: ?Fasting* Glucose Interpretive Criteria Normal ?65-99 mg/dL Impaired Fasting glucose ?100-125 mg/dL Consistent with Diabetes Mellitus ? >or= 126 mg/dL *Fasting is defined as no caloric intake for at least 8 hours In the absence of unequivocal hyperglycemia a plasma glucose value of >or= 126 mg/dL should be repeated on a subsequent day. Diagnosis and Classification of Diabetes Mellitus, Position Statement from the [place] [employer]. ??Diabetes Care, Volume 33, Supplement 1, Mar 2009 BUN 20 10 - 20 mg/dL [facility] Creatinine 1.27 0.80 - 1.50 mg/dL [facility] Sodium 140 135 - 145 mmol/L [facility] Potassium 4.7 3.5 - 5.0 mmol/L [facility] Comment: Please note: ??Patients with WBC >100,000 may have falsely elevated Potassium levels. ??For accurate Potassium quantification in these patients send serum separator tube (gold top) for subsequent determinations. ??Contact the Clinical Chemistry Laboratory if there are any questions. Chloride 100 98 - 107 mmol/L [facility] CO2 26 22 - 31 mmol/L [facility] Anion Gap 14 5 - 15 mmol/L [facility] Calcium 9.3 8.5 - 10.5 mg/dL [facility] Total Protein 7.3 6.1 - 8.0 gm/dL [facility] Albumin 4.3 3.2 - 5.2 gm/dL [facility] AST 13 0 - 39 unit/L [facility] ALT 12 0 - 55 unit/L [facility] Alk Phos 60 40 - 130 unit/L [facility] Total Bilirubin 0.3 0.2 - 1.3 mg/dL [facility] Estimated GFR 58(L) >=60 mL/min/1. 73 m?? [facility] Comment: The eGFR was calculated using the CKD-EPI equation. As with all creatinine based estimates of kidney function, eGFR values calculated with the CKD-EPI equation are not accurate in patients with acute kidney failure, extremes of body mass or the acutely ill. [email or web address] eGFR 68 >=60 mL/min/1. 73 m?? [facility] Comment: The eGFR was calculated using the CKD-EPI equation. As with all creatinine based estimates of kidney function, eGFR values calculated with the CKD-EPI equation are not accurate in patients with acute kidney failure, extremes of body mass or the acutely ill. [email or web address] Blood specimen (specimen) 12/23/2018 7:10 AM EDT 12/23/2018 7:18 AM EDT Narrative Resulting Agency Comment Spec In Lab Louis De La O MD CHEMISTRY ORDERABLE S [facility] [place] [place] [address] * POCT Glucose (12/23/2018 6:46 AM EDT) POC Glucose 132 65 - 199 mg/dL [facility] Comment: Supplemental ranges: <140 mg/dL before meals <180 mg/dL all other times of the day Blood specimen (specimen) 12/23/2018 6:46 AM EDT 12/23/2018 6:46 AM EDT Louis De La O MD POINT OF CARE TEST ORDERABLES Performing Organization Address City/[facility] Co de Phone Number [facility] [place] [address] * Prepare RBC (12/23/2018 6:40 AM EDT) Dispensed? Yes [facility] Blood specimen (specimen) 12/23/2018 6:40 AM EDT 12/23/2018 6:37 AM EDT Louis De La O MD BLOOD BANK PRODUCT ORDERABLES Performing Organization Address 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 documented in this encounter Admitting Diagnoses Diagnosis CAD (coronary artery disease) Coronary atherosclerosis of unspecified type of vessel, [place] or graft documented in this encounter Administered Medications Inactive Administered Medications - up to 3 most recent administrations Medication Order MAR Action Action Date Dose Rate Site acetaminophen (OFIRMEV) injection 1,000 mg 1,000 mg, Intravenous, at 400 mL/hr, Administer over 15 Minutes, EVERY 6 HOURS SCHEDULED, 4 doses, First dose on Stacey 12/23/18 at 1200, Last dose on Thu12/24/18 at 0600, Maximum dose of acetaminophen is 4000 mg from all sources in 24 hours., Routine, Is ketorolac (Toradol) IV contraindicated? Yes, Can this patient tolerate oral medications or suppositories? No Given 12/24/2018 5:34 AM EDT 1,000 mg 400 mL/hr Given 12/24/2018 12:05 AM EDT 1,000 mg 400 mL/hr Given 12/23/2018 5:04 PM EDT 1,000 mg 400 mL/hr acetaminophen (TYLENOL) tablet 1,000 mg 1,000 mg, Oral, EVERY 6 HOURS SCHEDULED, First dose on Thu12/24/18 at 1200, Until Discontinued, Maximum dose of acetaminophen is 4000 mg from all sources in 24 hours., Routine Given 12/27/2018 11:53 AM EDT 1,000 mg Given 12/27/2018 5:15 AM EDT 1,000 mg Given 12/26/2018 11:35 PM EDT 1,000 mg albumin (human) 5% 250 mL intravenous solution 1 Bottle (12.5 g), Intravenous, EVERY 30 MIN, 2 doses, First dose on Thu12/23/18 at 2315, Last dose on Thu12/23/18 at 2345, Total dose equals 25 g given as 12.5 g/ 250 mL bottle every 30 min x 2 doses. Administer over 30 min., Routine New Bag 12/24/2018 12:07 AM EDT 1 Bottle New Bag 12/24/2018 12:06 AM EDT 1 Bottle aspirin chewable tablet 81 mg 81 mg, Oral, DAILY, First dose on Thu12/23/18 at 1200, Until Discontinued, Routine Given 12/27/2018 9:02 AM EDT 81 mg Given 12/26/2018 8:35 AM EDT 81 mg Given 12/25/2018 9:22 AM EDT 81 mg aspirin suppository 300 mg 300 mg, Rectal, DAILY, First dose on Thu12/23/18 at 1200, Until Discontinued, Routine Given 12/23/2018 1:1 7 PM EDT 300 mg bisacodyl (DULCOLAX) suppository 10 mg 10 mg, Rectal, DAILY, First dose (after last modification) on Thu12/26/18 at 0930, Until Discontinued, Starting post-op day 3., Routine chlorhexidine (PERIDEX) 0.12 % oral solution 15 mL 15 mL, Oral, EVERY 12 HOURS SCHEDULED (2 times per day), First dose on Thu12/23/18 at 1200, Until Discontinued, Adams teeth, Routine Given 12/24/2018 9:41 AM EDT 15 mLs Given 12/23/2018 9:27 PM EDT 15 mLs Given 12/23/2018 12:15 PM EDT 15 mLs clopidogrel (PLAVIX) tablet 75 mg 75 mg, Oral, DAILY, First dose on Thu12/24/18 at 0915, Until Discontinued, Routine Given 12/27/2018 9:00 AM EDT 75 mg Given 12/26/2018 8:34 AM EDT 75 mg Given 12/25/2018 9:22 AM EDT 75 mg dextrose 50% intravenous solution 25-50 mL 25-50 mL (12.5-25 g), Intravenous, EVERY 1 HOUR PRN, Starting on Thu12/24/18 at 1446, Until Thu12/27/18 at 1603, Low blood sugar, For BG 50-70 mg/dL: Oral treatment preferred:?? If able to drink, give 120 mL Juice or Regular (not diet) soda OR If NPO, give 15 gram glucose 40% oral gel massaged into buccal mucosa OR if unconscious or uncooperative, give 12.5 gram (25 mL) Dextrose 50% IV OR, if no IV access, give 1 mg Glucagon IM. For BG less than 50 mg/dL: Oral treatment preferred:?? If able to drink, give 240 mL Juice or Regular (not diet) soda OR If NPO, give 30 gram glucose 40% oral gel massaged in buccal mucosa OR if unconscious or uncooperative, give 25 gram (50 mL) Dextrose 50% IV OR, if no IV access, give 1 mg Glucagon IM. Recheck BG in 30 minutes. May repeat juice, gel, dextrose or glucagon once per episode. To avoid extravasation, push Dextrose 50% SLOWLY (3 mL over 1 minute) in a patent, running IV, preferably a central line. For persistent hypoglycemia, consider longer-acting treatment for the duration of the active insulin., Routine EPINEPHrine 2 mg in dextrose 5% 250 mL infusion 0-10 mcg/min (0-75 mL/hr), Intravenous, CONTINUOUS, Starting on Stacey 12/23/18 at 1200, Until Thu12/24/18 at 1446, Titrate to keep systolic blood pressure greater than 90 mmHg. Start at 1 mcg/min, adjust by 1 mcg/min every 3 minutes. Dose not to exceed 10 mcg/min. Use if phenylephrine or vasopressin or norepinephrine is ineffective. Call pager # [phone] if initiated. Rate/Dose Change 12/23/2018 2:48 PM EDT 1 mcg/min 7.5 mL/hr Rate/Dose Verify 12/23/2018 2:00 PM EDT 2 mcg/min 15 mL/h r Rate/Dose Verify 12/23/2018 12:00 PM EDT 2 mcg/min 15 mL/ hr [id number] 25 mg/mL or placebo injection 1,125 mg (10 mg/kg/dose ? 112.5 kg), Intravenous, ONCE, 1 dose, On Stacey 12/23/18 at 1400, Routine, This is an Investigational Drug that is restricted to patients enrolled in a clinical trial. Is your patient enrolled in this clinical trial? Yes Given 12/23/2018 2:27 PM EDT 1,125 mg fentaNYL 50 mcg/mL syringe 0-100 mcg/hr (0-2 mL/hr), Intravenous, CONTINUOUS, Starting on Stacey 12/23/18 at 1200, Until Thu12/24/18 at 1516, Titrate to patient comfort, pain scale 1-3. Start at 25 mcg/hr, adjust by 25 mcg/hr every 15 minutes. Dose not to exceed 100 mcg/hour. Rate/Dose Verify 12/24/2018 12:00 AM EDT 25 mcg/hr 0.5 mL/hr Rate/Dose Verify 12/23/2018 10:00 PM EDT 25 mcg/hr 0.5 mL /hr Rate/Dose Verify 12/23/2018 5:00 PM EDT 25 mcg/hr 0.5 mL/ hr furosemide (LASIX) injection 20 mg 20 mg, Intravenous, 2 TIMES DAILY, First dose on Thu12/24/18 at 0915, Until Discontinued Given 12/26/2018 9:00 AM EDT 20 mg Given 12/25/2018 5:31 PM EDT 20 mg Given 12/25/2018 9:20 AM EDT 20 mg furosemide (LASIX) tablet 20 mg 20 mg, Oral, DAILY, First dose on Thu12/27/18 at 0900, Until Discontinued, Routine Given 12/27/2018 9:0 4 AM EDT 20 mg gemfibrozil (LOPID) tablet 600 mg 600 mg, Oral, 2 TIMES DAILY BEFORE MEALS, First dose on Thu12/24/18 at 0730, Until Discontinued, Routine Given 12/27/2018 9:05 AM EDT 600 mg Given 12/26/2018 4:24 PM EDT 600 mg Given 12/26/2018 8:36 AM EDT 600 mg glipiZIDE (GLUCOTROL) tablet 5 mg 5 mg, Oral, EVERY MORNING BEFORE BREAKFAST, First dose on Thu12/27/18 at 0730, Until Discontinued, Administer 30 minutes before the meal. Consider holding dose if patient is not eating. , Routine Given 12/27/2018 9:05 AM EDT 5 mg glucagon (human recombinant) injection SolR 1 mg 1 mg, Intramuscular, EVERY 1 HOUR PRN, Starting on Thu12/24/18 at 1446, Until Thu12/27/18 at 1603, Low blood sugar, For BG 50-70 mg/dL: Oral treatment preferred:?? If able to drink, give 120 mL Juice or Regular (not diet) soda OR If NPO, give 15 gram glucose 40% oral gel massaged into buccal mucosa OR if unconscious or uncooperative, give 12.5 gram (25 mL) Dextrose 50% IV OR, if no IV access, give 1 mg Glucagon IM. For BG less than 50 mg/dL: Oral treatment preferred:?? If able to drink, give 240 mL Juice or Regular (not diet) soda OR If NPO, give 30 gram glucose 40% oral gel massaged in buccal mucosa OR if unconscious or uncooperative, give 25 gram (50 mL) Dextrose 50% IV OR, if no IV access, give 1 mg Glucagon IM. Recheck BG in 30 minutes. May repeat juice, gel, dextrose or glucagon once per episode. To avoid extravasation, push Dextrose 50% SLOWLY (3 mL over 1 minute) in a patent, running IV, preferably a central line. For persistent hypoglycemia, consider longer-acting treatment for the duration of the active insulin., Routine glucose (GLUTOSE) 40% oral gel 15-30 g, Buccal, EVERY 30 MIN PRN, Starting on Thu12/24/18 at 1446, Until Thu12/27/18 at 1603, Low blood sugar, For BG 50-70 mg/dL: Oral treatment preferred:?? If able to drink, give 120 mL Juice or Regular (not diet) soda OR If NPO, give 15 gram glucose 40% oral gel massaged into buccal mucosa OR if unconscious or uncooperative, give 12.5 gram (25 mL) Dextrose 50% IV OR, if no IV access, give 1 mg Glucagon IM. For BG less than 50 mg/dL: Oral treatment preferred:?? If able to drink, give 240 mL Juice or Regular (not diet) soda OR If NPO, give 30 gram glucose 40% oral gel massaged in buccal mucosa OR if unconscious or uncooperative, give 25 gram (50 mL) Dextrose 50% IV OR, if no IV access, give 1 mg Glucagon IM. Recheck BG in 30 minutes. May repeat juice, gel, dextrose or glucagon once per episode. To avoid extravasation, push Dextrose 50% SLOWLY (3 mL over 1 minute) in a patent, running IV, preferably a central line. For persistent hypoglycemia, consider longer-acting treatment for the duration of the active insulin. 1 tube contains 15 grams of glucose (net weight of tube = 37.5 grams., Routine insulin lispro (HumaLOG) VIAL injection 2-8 Units 2-8 Units, Subcutaneous, 3 TIMES DAILY BEFORE MEALS, First dose on Thu12/24/18 at 1630, Until Discontinued, CORRECTION BOLUS Moderate BG 140 - 160 Give 2 units BG 161 - 200 Give 4 units BG 201 - 240 Give 6 units BG greater than 240, give 8 units and recheck BG in 2 hours.If BG less than 240 after two hours, give no insulin and resume prior schedule. If BG remains greater than 240, repeat 8 units (no more than three times) & call for new basal insulin orders. DO NOT hold if NPO, unless specifically told to do so., Routine Given 12/27/2018 11:54 AM EDT 4 Unit s Given 12/27/2018 9:06 AM EDT 4 Units Given 12/26/2018 5:11 PM EDT 4 Units insulin regular human (HumuLIN;NovoLIN) 1 unit/mL in sodium chloride 0.9% BOLUS 0-16 Units 0-16 Units, Intravenous, PER INSULIN PROTOCOL, Starting on Stacey 12/23/18 at 1131, Until Thu12/24/18 at 1446, Per Protocol, BOLUS order. Type 2 No Initial bolus. Adjustment bolus per insulin infusion protocol: IV insulin Bolus scale: For BG in mg/dL (250-299 = 8 units, 300-359 = 12 units, greater than 360 = 16 units), Routine Bolus from Bag 12/23/2018 11:50 AM EDT 8 Units insulin regular human (HumuLIN;NovoLIN) 1unit/mL in sodium chloride 0.9% infusion 0.5-16 Units/hr (0.5-16 mL/hr), Intravenous, CHANGE BAG EVERY EVENING, First dose on Stacey 12/23/18 at 1200, Until Discontinued, Type 2 diabetes. Current blood glucose 140 - 179 Titration- aim for target range of 140 - 180 mg/dL. Check BG every hour unless otherwise indicated. [[ No initial bolus. Begin continuous infusion at 2 units/hour. ]] If BG at the time the infusion is started outside of the CURRENT BLOOD GLUCOSE range above, contact MD for new starting rate/bolus order. When infusion is paused, turn it back on as soon as possible per protocol. If BG at the time the infusion is started is outside of the CURRENT BLOOD GLUCOSE range above, contact provider for new starting rate/bolus order. Current BG less than 80 - Stop insulin. If BG less than 70, treat per hypoglycemia protocol. Re-check BG in 30 minutes and as soon as BG is greater than 80, restart with rate 50% of previous rate. If infusion stopped after previous rate had been 0.5 unit/hour, recheck every hour and when BG greater than 100 and higher than last test restart at 0.5 unit/hour. IF INFUSION IS PAUSED, TURN IT BACK ON SOON POSSIBLE, PER PROTOCOL. Current BG 80 - 139 - If BG dropped 10 mg/dL or more since last test, decrease rate by 50% and re-check in 30 minutes. Otherwise, decrease rate by 0.5 units/hour. Current BG 140 - 180 - If BG dropped 50 mg/dL or more since last test, decrease rate by 1 unit/hour. Otherwise, maintain same rate. Current BG 181 - 220 - If BG is lower than last test, maintain same rate. Otherwise, increase rate by 0.5 units/hour. Current BG 221 - 250 - If BG dropped 30 mg/dL or more since last test, maintain same rate. Otherwise, increase rate by 1 unit/hour. Current BG greater than 250 - Increase rate by 1 unit/hour AND bolus with Regular insulin IV as per IV Bolus Scale. Re-check BG in 30 minutes. THE FIRST DOSE OF SC INSULIN OUGHT TO BE ADMINISTERED BEFORE DISCONTINUING THE INFUSION. AN OVERLAP OF 2-3 HOURS IS RECOMMENDED. Continue to monitor the BG hourly., Routine Rate/Dose Verify 12/24/2018 8:00 AM EDT 0.5 Units/hr 0.5 mL/hr Rate/Dose Verify 12/24/2018 6:00 AM EDT 0.5 Units/hr 0.5 m L/hr Rate/Dose Verify 12/24/2018 4:00 AM EDT 0.5 Units/hr 0.5 m L/hr ipratropium-albuterol (DUONEB) 0.5 mg-3 mg(2.5 mg base)/3 mL nebulizer solution 3 mL 3 mL, Nebulization, EVERY 4 HOURS PRN, Starting on Thu12/24/18 at 0854, Until Thu12/27/18 at 1603, Wheezing, Routine lactated ringers infusion 1,000 mL, at 100 mL/hr, Intravenous, CONTINUOUS, Starting on Stacey 12/23/18 at 0745, Until Thu12/23/18 at 1131, Day of Surgery (Day of Procedure) New Bag 12/23/2018 7:26 AM EDT New Bag 12/23/2018 7:24 AM EDT 1,000 mLs 100 mL/hr lidocaine (XYLOCAINE) 10 mg/mL (1 %) injection 3 mg 3 mg (0.3 mL), Subcutaneous, ONCE PRN, 1 dose, Starting on Stacey 12/23/18 at 0722, Until Stacey 12/23/18 at 0700, for discomfort with PIV insertion, Day of Surgery (Day of Procedure), Routine Given 12/23/2018 7:00 AM EDT 3 mg magnesium hydroxide (Milk of Magnesia) (240 mg/mL) oral liquid 10 mL 10 mL, Oral, DAILY, First dose on 12/25/18 at 0900, Until Discontinued, Post-op day 2. Do not use with renal insufficiency., Routine Given 12/26/2018 8:35 AM EDT 10 mLs Given 12/25/2018 9:23 AM EDT 10 mLs magnesium sulfate 2 g in sterile water 50 mL 2 g, Intravenous, ONCE, 1 dose, On 12/27/18 at 1045, Administer over 120 Minutes New Bag 12/27/2018 10:50 AM EDT 2 g 25 mL/hr metFORMIN (GLUCOPHAGE) tablet 500 mg 500 mg, Oral, 2 TIMES DAILY WITH MEALS, First dose on Thu12/26/18 at 1045, Until Discontinued, Routine Given 12/27/2018 9:05 AM EDT 500 mg Given 12/26/2018 4:24 PM EDT 500 mg metoprolol (LOPRESSOR) tablet 12.5 mg 12.5 mg, Oral, EVERY 12 HOURS SCHEDULED (2 times per day), First dose on Thu12/24/18 at 0900, Until Discontinued, Routine Given 12/24/2018 9:42 AM EDT 12.5 mg metoprolol (LOPRESSOR) tablet 12.5 mg 12.5 mg, Oral, ONCE, 1 dose, On Thu12/24/18 at 1445, Routine Given 12/24/2018 2:25 PM EDT 12.5 mg metoprolol tartrate (LOPRESSOR) tablet 25 mg 25 mg, Oral, EVERY 12 HOURS SCHEDULED (2 times per day), First dose (after last modification) on Thu12/24/18 at 2100, Until Discontinued, Routine Given 12/25/2018 9:23 AM EDT 25 mg Given 12/24/2018 8:10 PM EDT 25 mg metoprolol tartrate (LOPRESSOR) tablet 25 mg 25 mg, Oral, EVERY 8 HOURS SCHEDULED, First dose (after last modification) on 12/25/18 at 1400, Until Discontinued, Routine Given 12/26/2018 5:15 AM EDT 25 mg Given 12/25/2018 9:09 PM EDT 25 mg Given 12/25/2018 2:50 PM EDT 25 mg metoprolol tartrate (LOPRESSOR) tablet 25 mg 25 mg, Oral, ONCE, 1 dose, On Thu12/26/18 at 0930, Routine Given 12/26/2018 11:06 AM EDT 25 mg metoprolol tartrate (LOPRESSOR) tablet 50 mg 50 mg, Oral, EVERY 12 HOURS SCHEDULED (2 times per day), First dose (after last modification) on Thu12/26/18 at 2100, Until Discontinued, Routine Given 12/26/2018 8:25 PM EDT 50 mg metoprolol tartrate (LOPRESSOR) tablet 75 mg 75 mg, Oral, EVERY 12 HOURS SCHEDULED (2 times per day), First dose (after last modification) on Thu12/27/18 at 0700, Until Discontinued, Routine Given 12/27/2018 9:02 AM EDT 75 mg NORepinephrine 16 mcg/mL (standard ADULT and Pedi greater than 20 kg) infusion 0-30 mcg/min (0-112.5 mL/hr), Intravenous, CONTINUOUS, Starting on Stacey 12/23/18 at 1200, Until Thu12/24/18 at 1446, Titrate to keep systolic blood pressure greater than 90 mmHg. Start at 2 mcg/minute and adjust by 2 mcg/min every 3 minutes. Dose not to exceed 30 mcg/minute. Begin if phenyleprine and/or vasopressin ineffective.Call pager # [phone] if initiated., Routine Rate/Dose Verify 12/24/2018 4:00 AM EDT 1.013 mcg/min 3.8 mL/hr Rate/Dose Change 12/24/2018 3:05 AM EDT 1 mcg/min 3.8 mL/ hr Rate/Dose Verify 12/24/2018 2:00 AM EDT 2 mcg/min 7.5 mL/ hr oxyCODONE (ROXICODONE) immediate release tablet 5-10 mg 5-10 mg, Oral, EVERY 4 HOURS PRN, Starting on Stacey 12/23/18 at 1131, Until Thu12/27/18 at 1603, Pain, - When tolerating oral medications. - Initial dose 5 mg. - If pain control not adequate in 60 minutes, give additional 5 mg., Routine Given 12/24/2018 8:10 PM EDT 5 mg Given 12/24/2018 2:25 PM EDT 5 mg Given 12/24/2018 9:40 AM EDT 5 mg pantoprazole (PROTONIX) injection 40 mg 40 mg, Intravenous, DAILY, First dose on Stacey 12/23/18 at 1200, Until Discontinued, Reconstitute with 10 mL of normal saline to a concentration of 4 mg/mL and infuse slowly over 2 minutes. , Routine Given 12/23/2018 12:15 PM EDT 40 mg pantoprazole (PROTONIX) tablet 40 mg 40 mg, Oral, DAILY, First dose on Stacey 12/23/18 at 1200, Until Discontinued, DO NOT CRUSH OR OPEN If unable to take PO, may give IV Given 12/27/2018 9:00 AM EDT 40 mg Given 12/26/2018 8:35 AM EDT 40 mg Given 12/25/2018 9:22 AM EDT 40 mg potassium chloride (K-DUR/KLOR-CON) extended release tablet 10 mEq 10 mEq, Oral, ONCE, 1 dose, On 12/27/18 at 0845, Routine Given 12/27/2018 9:04 AM EDT 10 mEq potassium chloride (K-DUR/KLOR-CON) extended release tablet 40 mEq 40 mEq, Oral, ONCE, 1 dose, On Thu12/26/18 at 0930, 20 mEq tablet may be dissolved in water for administration, Routine Given 12/26/2018 11:05 AM EDT 40 mEq potassium chloride 20 mEq in 100 mL 20 mEq, Intravenous, EVERY 1 HOUR PRN, Starting on Stacey 12/23/18 at 1131, Until Thu12/24/18 at 1446, Administer over 60 Minutes, hypokalemia, Administer 2 doses for a serum potassium (mMol/L) of 3.3 - 3.8 See instructions for Potassium Protocol in online policies. New Bag 12/23/2018 1:02 PM EDT 20 mEq 100 mL/hr propofol (DIPRIVAN) infusion 0-50 mcg/kg/min ? 112.5 kg (0-33.75 mL/hr, rounded to 0-33.8 mL/hr), Intravenous, CONTINUOUS, Starting on Stacey 12/23/18 at 1200, Until Thu12/24/18 at 1446, Titrate to sedation level of RASS Goal (-) 1. Start at 10 mcg/kg/min, adjust rate by 5 mcg/kg/min every 3 minutes. Dose not to exceed 50 mcg/kg/minute. Discontinue upon extubation., Routine Rate/Dose Change 12/23/2018 1:15 PM EDT 25 mcg/kg/min 16.9 mL/hr Rate/Dose Verify 12/23/2018 12:00 PM EDT 50 mcg/kg/min 33. 8 mL/hr Continued Bag 12/23/2018 11:15 AM EDT 50 mcg/kg/min 33.8 m L/hr rosuvastatin (CRESTOR) tablet 40 mg 40 mg, Oral, DAILY, First dose on Stacey 12/23/18 at 1200, Until Discontinued Given 12/27/2018 9:04 AM EDT 40 mg Given 12/26/2018 8:34 AM EDT 40 mg Given 12/25/2018 9:22 AM EDT 40 mg senna-docusate (PERICOLACE) 8.6-50 mg per tablet 2 tablet 2 tablet, Oral, DAILY, First dose on Thu12/24/18 at 2100, Until Discontinued, Post-op day 1, Routine Given 12/26/2018 8:25 PM EDT 2 tablets Given 12/25/2018 9:16 PM EDT 2 tablets Given 12/24/2018 8:10 PM EDT 2 tablets sodium chloride 0.9 % (flush) flush 5 mL 5 mL, Intravenous, EVERY 8 HOURS, First dose on Thu12/24/18 at 1515, Until Discontinued, Routine Given 12/27/2018 7:15 AM EDT 5 mLs Given 12/26/2018 11:36 PM EDT 5 mLs Given 12/26/2018 3:15 PM EDT 5 mLs sodium chloride 0.9% infusion 0-500 mL/hr, Intravenous, CONTINUOUS, Starting on Stacey 12/23/18 at 1200, Until Thu12/24/18 at 1446, Bolus 250 mL every 5 minutes as needed for volume replacement to maintain cardiac index greater than or equal to 2.0 L/min/M2. Maximum volume 2 L. Call apartment house manager for additional fluid orders: pager #[phone]. New Bag 12/23/2018 11:15 AM EDT 250 mL/hr 250 mL/hr sodium chloride 0.9% infusion 10-30 mL/hr, Intravenous, DAILY PRN, Starting on Stacey 12/23/18 at 1131, Until Thu12/24/18 at 1446, Side port TKO rate, per [facility] nursing protocol. Rate/Dose Change 12/24/2018 2:00 PM EDT 10 mL/hr 10 mL/hr Rate/Dose Verify 12/24/2018 6:00 AM EDT 30 mL/hr 30 mL/h r Rate/Dose Verify 12/24/2018 4:00 AM EDT 30 mL/hr 30 mL/h r sodium chloride 0.9% infusion 10-30 mL/hr, Intravenous, DAILY PRN, Starting on Stacey 12/23/18 at 1131, Until Thu12/24/18 at 1446, Side port TKO rate, per [facility] nrusing protocol. Rate/Dose Verify 12/23/2018 6:00 PM EDT 30 mL/hr 30 mL/hr Rate/Dose Verify 12/23/2018 5:00 PM EDT 30 mL/hr 30 mL/h r Rate/Dose Verify 12/23/2018 4:00 PM EDT 30 mL/hr 30 mL/h r documented in this encounter Active and Recently Administered Medications Times are shown in EDT. Scheduled Medication Order 12/25/2018 12/26/2018 12/27/2018 acetaminophen (TYLENOL) tablet 1,000 mg(Linked Group 1) 1,000 mg, Oral, EVERY 6 HOURS SCHEDULED, First dose on Thu12/24/18 at 1200, Until Discontinued, Maximum dose of acetaminophen is 4000 mg from all sources in 24 hours., Routine 0548 (Given - Provider: Rudi Danielle RN)1200 (Given - Provider: Ramírez Zapata RN)1826 (Given - Provider: Ramírez Zapata RN)2352 (Given - Provider: Rudi Danielle RN) 0515 (Given - Provider: Rudi Danielle RN)1105 (Given - Provider: Jennifer Ramos RN)1711 (Given - Provider: Jennifer Ramos RN)2335 (Given - Provider: Rudi Danielle RN) 0515 (Given - Provider: Rudi Danielle RN)1153 (Given - Provider: Jennifer Ramos RN) aspirin chewable tablet 81 mg(Linked Group 2) 81 mg, Oral, DAILY, First dose on Stacey 12/23/18 at 1200, Until Discontinued, Routine 0922 (Given - Provider: Ramírez Zapata RN) 0835 (Given - Provider: Jennifer Ramos RN) 0902 (Given - Provider: Jennifer Ramos RN) bisacodyl (DULCOLAX) suppository 10 mg 10 mg, Rectal, DAILY, First dose (after last modification) on Thu12/26/18 at 0930, Until Discontinued, Starting post-op day 3., Routine 0930 (Not Given - Provider: Jennifer Ramos RN - Reason: Patient/family refused) 0900 (Not Given - Provider: Jennifer Ramos RN - Reason: Patient/family refused)1300 (Not Given - Provider: Jennifer Ramos RN - Reason: Patient/family refused) clopidogrel (PLAVIX) tablet 75 mg 75 mg, Oral, DAILY, First dose on Thu12/24/18 at 0915, Until Discontinued, Routine 0922 (Given - Provider: Ramírez Zapata RN) 0834 (Given - Provider: Jennifer Ramos RN) 0900 (Given - Provider: Jennifer Ramos RN) furosemide (LASIX) injection 20 mg (CANCELED) 20 mg, Intravenous, 2 TIMES DAILY, First dose on Thu12/24/18 at 0915, Until Discontinued 09 (Given - Provider: Ramírez Zapata RN)1731 (Given - Provider: Ramírez Zapata RN) 0900 (Given - Provider: Jennifer Ramos RN) furosemide (LASIX) tablet 20 mg 20 mg, Oral, DAILY, First dose on Thu12/27/18 at 0900, Until Discontinued, Routine 09 (Given - Provider: Jennifer Ramos RN) gemfibrozil (LOPID) tablet 600 mg 600 mg, Oral, 2 TIMES DAILY BEFORE MEALS, First dose on Thu12/24/18 at 0730, Until Discontinued, Routine 0921 (Given - Provider: Ramírez Zapata RN)1730 (Given - Provider: Ramírez Zapata RN) 0836 (Given - Provider: Jennifer Ramos RN)1624 (Given - Provider: Jennifer Ramos RN) 0905 (Given - Provider: Jennifer Ramos RN) glipiZIDE (GLUCOTROL) tablet 5 mg 5 mg, Oral, EVERY MORNING BEFORE BREAKFAST, First dose on Thu12/27/18 at 0730, Until Discontinued, Administer 30 minutes before the meal. Consider holding dose if patient is not eating. , Routine 904 (Given - Provider: Jennifer Ramos RN) insulin lispro (HumaLOG) VIAL injection 2-8 Units(Linked Group 3) 2-8 Units, Subcutaneous, 3 TIMES DAILY BEFORE MEALS, First dose on Thu12/24/18 at 1630, Until Discontinued, CORRECTION BOLUS Moderate BG 140 - 160 Give 2 units BG 161 - 200 Give 4 units BG 201 - 240 Give 6 units BG greater than 240, give 8 units and recheck BG in 2 hours.If BG less than 240 after two hours, give no insulin and resume prior schedule. If BG remains greater than 240, repeat 8 units (no more than three times) & call for new basal insulin orders. DO NOT hold if NPO, unless specifically told to do so., Routine 0800 (Given - Provider: Ramírez Zapata RN)1129 (Given - Provider: Ramírez Zapata RN)1735 (Given - Provider: Ramírez Zapata RN) 0845 (Given - Provider: Jennifer Ramos RN)1203 (Given - Provider: Jennifer Ramos RN)1711 (Given - Provider: Jennifer Ramos RN) 0906 (Given - Provider: Jennifer Ramos RN)1154 (Given - Provider: Jennifer Ramos RN) magnesium hydroxide (Milk of Magnesia) (240 mg/mL) oral liquid 10 mL 10 mL, Oral, DAILY, First dose on 12/25/18 at 0900, Until Discontinued, Post-op day 2. Do not use with renal insufficiency., Routine 0923 (Given - Provider: Ramírez Zapata RN) 0835 (Given - Provider: Jennifer Ramos RN) 0900 (Not Given - Provider: Jennifer Ramos RN - Reason: Patient/family refused) magnesium sulfate 2 g in sterile water 50 mL (COMPLETED) 2 g, Intravenous, ONCE, 1 dose, On 12/27/18 at 1045, Administer over 120 Minutes 1050 (New Bag - Provider: Jennifer Ramos RN)1250 (Due: Stopped - Provider: Jennifer Ramos RN) metFORMIN (GLUCOPHAGE) tablet 500 mg 500 mg, Oral, 2 TIMES DAILY WITH MEALS, First dose on Thu12/26/18 at 1045, Until Discontinued, Routine 1045 (Not Given - Provider: Jennifer Ramos RN - Reason: See comment - Comment: missed dose)1624 (Given - Provider: Jennifer Ramos RN) 0905 (Given - Provider: Jennifer Ramos RN) metoprolol tartrate (LOPRESSOR) tablet 25 mg (CANCELED) 25 mg, Oral, EVERY 12 HOURS SCHEDULED (2 times per day), First dose (after last modification) on Thu12/24/18 at 2100, Until Discontinued, Routine 0923 (Given - Provider: Ramírez Zapata RN) metoprolol tartrate (LOPRESSOR) tablet 25 mg (CANCELED) 25 mg, Oral, EVERY 8 HOURS SCHEDULED, First dose (after last modification) on 12/25/18 at 1400, Until Discontinued, Routine 1450 (Given - Provider: Ramírez Zapata RN)210 (Given - Provider: Rudi Danielle RN) 0515 (Given - Provider: Rudi Danielle RN) metoprolol tartrate (LOPRESSOR) tablet 25 mg (COMPLETED) 25 mg, Oral, ONCE, 1 dose, On 12/26/18 at 0930, Routine 110 (Given - Provider: Jennifer Ramos RN) metoprolol tartrate (LOPRESSOR) tablet 50 mg (CANCELED) 50 mg, Oral, EVERY 12 HOURS SCHEDULED (2 times per day), First dose (after last modification) on 12/26/18 at 2100, Until Discontinued, Routine 2024 (Given - Provider: Rudi Danielle RN) metoprolol tartrate (LOPRESSOR) tablet 75 mg 75 mg, Oral, EVERY 12 HOURS SCHEDULED (2 times per day), First dose (after last modification) on 12/27/18 at 0700, Until Discontinued, Routine 09 (Given - Provider: Jennifer Ramos RN) pantoprazole (PROTONIX) tablet 40 mg(Linked Group 4) 40 mg, Oral, DAILY, First dose on Stacey 12/23/18 at 1200, Until Discontinued, DO NOT CRUSH OR OPEN If unable to take PO, may give IV 0922 (Given - Provider: Ramírez Zapata RN) 0835 (Given - Provider: Jennifer Ramos RN) 0900 (Given - Provider: Jennifer Ramos RN) potassium chloride (K-DUR/KLOR-CON) extended release tablet 10 mEq (COMPLETED) 10 mEq, Oral, ONCE, 1 dose, On 12/27/18 at 0845, Routine 0904 (Given - Provider: Jennifer Ramos RN) potassium chloride (K-DUR/KLOR-CON) extended release tablet 40 mEq (COMPLETED) 40 mEq, Oral, ONCE, 1 dose, On 12/26/18 at 0930, 20 mEq tablet may be dissolved in water for administration, Routine 1105 (Given - Provider: Jennifer Ramos RN) rosuvastatin (CRESTOR) tablet 40 mg 40 mg, Oral, DAILY, First dose on Thu12/23/18 at 1200, Until Discontinued 0922 (Given - Provider: Ramírez Zapata RN) 0834 (Given - Provider: Jennifer Ramos RN) 0904 (Given - Provider: Jennifer Ramos RN) senna-docusate (PERICOLACE) 8.6-50 mg per tablet 2 tablet 2 tablet, Oral, DAILY, First dose on Thu12/24/18 at 2100, Until Discontinued, Post-op day 1, Routine 211 (Given - Provider: Rudi Danielle RN) 202 (Given - Provider: Rudi Danielle RN) sodium chloride 0.9 % (flush) flush 5 mL 5 mL, Intravenous, EVERY 8 HOURS, First dose on Thu12/24/18 at 1515, Until Discontinued, Routine 0715 (Given - Provider: Ramírez Zapata RN)1515 (Given - Provider: Ramírez Zapata RN) 0003 (Given - Provider: Rudi Danielle RN)0715 (Given - Provider: Jennifer Ramos RN)1515 (Given - Provider: Jennifer Ramos RN)2336 (Given - Provider: Rudi Danielle RN) 0715 (Given - Provider: Jennifer Ramos RN) PRN Medication Order 12/25/2018 12/26/2018 12/27/2018 dextrose 50% intravenous solution 25-50 mL(Linked Group 5) 25-50 mL (12.5-25 g), Intravenous, EVERY 1 HOUR PRN, Starting on Thu12/24/18 at 1446, Until Thu12/27/18 at 1603, Low blood sugar, For BG 50-70 mg/dL: Oral treatment preferred:?? If able to drink, give 120 mL Juice or Regular (not diet) soda OR If NPO, give 15 gram glucose 40% oral gel massaged into buccal mucosa OR if unconscious or uncooperative, give 12.5 gram (25 mL) Dextrose 50% IV OR, if no IV access, give 1 mg Glucagon IM. For BG less than 50 mg/dL: Oral treatment preferred:?? If able to drink, give 240 mL Juice or Regular (not diet) soda OR If NPO, give 30 gram glucose 40% oral gel massaged in buccal mucosa OR if unconscious or uncooperative, give 25 gram (50 mL) Dextrose 50% IV OR, if no IV access, give 1 mg Glucagon IM. Recheck BG in 30 minutes. May repeat juice, gel, dextrose or glucagon once per episode. To avoid extravasation, push Dextrose 50% SLOWLY (3 mL over 1 minute) in a patent, running IV, preferably a central line. For persistent hypoglycemia, consider longer-acting treatment for the duration of the active insulin., Routine glucagon (human recombinant) injection SolR 1 mg(Linked Group 5) 1 mg, Intramuscular, EVERY 1 HOUR PRN, Starting on Thu12/24/18 at 1446, Until Thu12/27/18 at 1603, Low blood sugar, For BG 50-70 mg/dL: Oral treatment preferred:?? If able to drink, give 120 mL Juice or Regular (not diet) soda OR If NPO, give 15 gram glucose 40% oral gel massaged into buccal mucosa OR if unconscious or uncooperative, give 12.5 gram (25 mL) Dextrose 50% IV OR, if no IV access, give 1 mg Glucagon IM. For BG less than 50 mg/dL: Oral treatment preferred:?? If able to drink, give 240 mL Juice or Regular (not diet) soda OR If NPO, give 30 gram glucose 40% oral gel massaged in buccal mucosa OR if unconscious or uncooperative, give 25 gram (50 mL) Dextrose 50% IV OR, if no IV access, give 1 mg Glucagon IM. Recheck BG in 30 minutes. May repeat juice, gel, dextrose or glucagon once per episode. To avoid extravasation, push Dextrose 50% SLOWLY (3 mL over 1 minute) in a patent, running IV, preferably a central line. For persistent hypoglycemia, consider longer-acting treatment for the duration of the active insulin., Routine glucose (GLUTOSE) 40% oral gel(Linked Group 5) 15-30 g, Buccal, EVERY 30 MIN PRN, Starting on Thu12/24/18 at 1446, Until Thu12/27/18 at 1603, Low blood sugar, For BG 50-70 mg/dL: Oral treatment preferred:?? If able to drink, give 120 mL Juice or Regular (not diet) soda OR If NPO, give 15 gram glucose 40% oral gel massaged into buccal mucosa OR if unconscious or uncooperative, give 12.5 gram (25 mL) Dextrose 50% IV OR, if no IV access, give 1 mg Glucagon IM. For BG less than 50 mg/dL: Oral treatment preferred:?? If able to drink, give 240 mL Juice or Regular (not diet) soda OR If NPO, give 30 gram glucose 40% oral gel massaged in buccal mucosa OR if unconscious or uncooperative, give 25 gram (50 mL) Dextrose 50% IV OR, if no IV access, give 1 mg Glucagon IM. Recheck BG in 30 minutes. May repeat juice, gel, dextrose or glucagon once per episode. To avoid extravasation, push Dextrose 50% SLOWLY (3 mL over 1 minute) in a patent, running IV, preferably a central line. For persistent hypoglycemia, consider longer-acting treatment for the duration of the active insulin. 1 tube contains 15 grams of glucose (net weight of tube = 37.5 grams., Routine ipratropium-albuterol (DUONEB) 0.5 mg-3 mg(2.5 mg base)/3 mL nebulizer solution 3 mL 3 mL, Nebulization, EVERY 4 HOURS PRN, Starting on Thu12/24/18 at 0854, Until Thu12/27/18 at 1603, Wheezing, Routine ondansetron (ZOFRAN) injection 4 mg 4 mg, Intravenous, EVERY 8 HOURS PRN, Starting on Thu12/23/18 at 1131, Until Thu12/27/18 at 1603, Nausea oxyCODONE (ROXICODONE) immediate release tablet 5-10 mg 5-10 mg, Oral, EVERY 4 HOURS PRN, Starting on Thu12/23/18 at 1131, Until Thu12/27/18 at 1603, Pain, - When tolerating oral medications. - Initial dose 5 mg. - If pain control not adequate in 60 minutes, give additional 5 mg., Routine Linked Groups Order Group 1: acetaminophen (OFIRMEV) injection 1,000 mg (COMPLETED) 1,000 mg, Intravenous, at 400 mL/hr, Administer over 15 Minutes, EVERY 6 HOURS SCHEDULED, 4 doses, First dose on Thu12/23/18 at 1200, Last dose on Thu12/24/18 at 0600, Maximum dose of acetaminophen is 4000 mg from all sources in 24 hours., Routine, Is ketorolac (Toradol) IV contraindicated? Yes, Can this patient tolerate oral medications or suppositories? No Followed by acetaminophen (TYLENOL) tablet 1,000 mgJump to med 1,000 mg, Oral, EVERY 6 HOURS SCHEDULED, First dose on Thu12/24/18 at 1200, Until Discontinued, Maximum dose of acetaminophen is 4000 mg from all sources in 24 hours., Routine Group 2: aspirin chewable tablet 81 mgJump to med 81 mg, Oral, DAILY, First dose on Thu12/23/18 at 1200, Until Discontinued, Routine Or aspirin suppository 300 mg (CANCELED) 300 mg, Rectal, DAILY, First dose on Thu12/23/18 at 1200, Until Discontinued, Routine Group 3: POCT Fingerstick Glucose (CANCELED) Routine, 4 TIMES DAILY BEFORE MEALS & AT BEDTIME, First occurrence on Thu12/24/18 at 1700, Until Specified, Consider choosing FOUR TIMES A DAY BEFORE MEALS AND AT BEDTIME as frequency for: Patients who have a good hypoglycemia awareness: -Patients who are eating meals during the day and sleeping at night -Patient who are otherwise stable And insulin lispro (HumaLOG) VIAL injection 2-8 UnitsJump to med 2-8 Units, Subcutaneous, 3 TIMES DAILY BEFORE MEALS, First dose on Thu12/24/18 at 1630, Until Discontinued, CORRECTION BOLUS Moderate BG 140 - 160 Give 2 units BG 161 - 200 Give 4 units BG 201 - 240 Give 6 units BG greater than 240, give 8 units and recheck BG in 2 hours.If BG less than 240 after two hours, give no insulin and resume prior schedule. If BG remains greater than 240, repeat 8 units (no more than three times) & call for new basal insulin orders. DO NOT hold if NPO, unless specifically told to do so., Routine Group 4: pantoprazole (PROTONIX) tablet 40 mgJump to med 40 mg, Oral, DAILY, First dose on Thu12/23/18 at 1200, Until Discontinued, DO NOT CRUSH OR OPEN If unable to take PO, may give IV Or pantoprazole (PROTONIX) injection 40 mg (CANCELED) 40 mg, Intravenous, DAILY, First dose on Stacey 12/23/18 at 1200, Until Discontinued, Reconstitute with 10 mL of normal saline to a concentration of 4 mg/mL and infuse slowly over 2 minutes. , Routine Group 5: glucose (GLUTOSE) 40% oral gelJump to med 15-30 g, Buccal, EVERY 30 MIN PRN, Starting on Thu12/24/18 at 1446, Until Thu12/27/18 at 1603, Low blood sugar, For BG 50-70 mg/dL: Oral treatment preferred:?? If able to drink, give 120 mL Juice or Regular (not diet) soda OR If NPO, give 15 gram glucose 40% oral gel massaged into buccal mucosa OR if unconscious or uncooperative, give 12.5 gram (25 mL) Dextrose 50% IV OR, if no IV access, give 1 mg Glucagon IM. For BG less than 50 mg/dL: Oral treatment preferred:?? If able to drink, give 240 mL Juice or Regular (not diet) soda OR If NPO, give 30 gram glucose 40% oral gel massaged in buccal mucosa OR if unconscious or uncooperative, give 25 gram (50 mL) Dextrose 50% IV OR, if no IV access, give 1 mg Glucagon IM. Recheck BG in 30 minutes. May repeat juice, gel, dextrose or glucagon once per episode. To avoid extravasation, push Dextrose 50% SLOWLY (3 mL over 1 minute) in a patent, running IV, preferably a central line. For persistent hypoglycemia, consider longer-acting treatment for the duration of the active insulin. 1 tube contains 15 grams of glucose (net weight of tube = 37.5 grams., Routine Or dextrose 50% intravenous solution 25-50 mLJump to med 25-50 mL (12.5-25 g), Intravenous, EVERY 1 HOUR PRN, Starting on Thu12/24/18 at 1446, Until Thu12/27/18 at 1603, Low blood sugar, For BG 50-70 mg/dL: Oral treatment preferred:?? If able to drink, give 120 mL Juice or Regular (not diet) soda OR If NPO, give 15 gram glucose 40% oral gel massaged into buccal mucosa OR if unconscious or uncooperative, give 12.5 gram (25 mL) Dextrose 50% IV OR, if no IV access, give 1 mg Glucagon IM. For BG less than 50 mg/dL: Oral treatment preferred:?? If able to drink, give 240 mL Juice or Regular (not diet) soda OR If NPO, give 30 gram glucose 40% oral gel massaged in buccal mucosa OR if unconscious or uncooperative, give 25 gram (50 mL) Dextrose 50% IV OR, if no IV access, give 1 mg Glucagon IM. Recheck BG in 30 minutes. May repeat juice, gel, dextrose or glucagon once per episode. To avoid extravasation, push Dextrose 50% SLOWLY (3 mL over 1 minute) in a patent, running IV, preferably a central line. For persistent hypoglycemia, consider longer-acting treatment for the duration of the active insulin., Routine Or glucagon (human recombinant) injection SolR 1 mgJump to med 1 mg, Intramuscular, EVERY 1 HOUR PRN, Starting on Thu12/24/18 at 1446, Until Thu12/27/18 at 1603, Low blood sugar, For BG 50-70 mg/dL: Oral treatment preferred:?? If able to drink, give 120 mL Juice or Regular (not diet) soda OR If NPO, give 15 gram glucose 40% oral gel massaged into buccal mucosa OR if unconscious or uncooperative, give 12.5 gram (25 mL) Dextrose 50% IV OR, if no IV access, give 1 mg Glucagon IM. For BG less than 50 mg/dL: Oral treatment preferred:?? If able to drink, give 240 mL Juice or Regular (not diet) soda OR If NPO, give 30 gram glucose 40% oral gel massaged in buccal mucosa OR if unconscious or uncooperative, give 25 gram (50 mL) Dextrose 50% IV OR, if no IV access, give 1 mg Glucagon IM. Recheck BG in 30 minutes. May repeat juice, gel, dextrose or glucagon once per episode. To avoid extravasation, push Dextrose 50% SLOWLY (3 mL over 1 minute) in a patent, running IV, preferably a central line. For persistent hypoglycemia, consider longer-acting treatment for the duration of the active insulin., Routine documented in this encounter Care Teams Aboriginal Ceremonial Celebrant Relationship Specialty Start Date End Date Antonella Lucas PA [address] [place] [address] PCP - General Family Medicine 05/06/17 11/01/19 documented as of this encounter
--- OUTSIDE RECORDS SUMMARY | 2023-10-15 18:59 | XMS_ITS | Encounter Summary ---
Author Organization Formerly [facility] [place] [address] Care Team Providers Care Coding Specialist Home Health Name Role Phone Antonella Lucas Primary Care Provider +1- [phone] Encounter Details Date Type Department Care Team (Late st Contact Info) Description 01/18/2019 Orders Only Cardiology at [address] [address] Shavon Dorman, RN ASCVD (arteriosclerotic cardiovascular disease) Social History Tobacco Use Types Packs/Day Years Used Date Smoking Tobacco: Every Day Cigarettes 2 50 Smokeless Tobacco: Never Alcohol Use Standard Drinks/Week [...] of this encounter Results * Research Venipuncture (01/25/2019 11:54 AM EST) Research Venipuncture Drawn [facility] Blood specimen (specimen) 01/25/2019 11:54 AM EST 01/25/2019 12:05 PM EST Narrative Resulting Agency Comment Spec In Lab Louis De La O MD CHEMISTRY ORDERABLE S [facility] [place] [address] documented in this encounter Visit Diagnoses Diagnosis ASCVD (arteriosclerotic cardiovascular disease) Unspecified cardiovascular disease documented in this encounter Care Teams Coding Specialist Home Health Relationship Specialty Start Date End Date Antonella Lucas PA [address] [place] [address] PCP - General Family Medicine 05/06/17 11/01/19 documented as of this encounter
--- OUTSIDE RECORDS SUMMARY | 2023-10-15 18:59 | XMS_ITS | Encounter Summary ---
Author Organization [facility] Address [facility] [place] [address] Care Team Providers Care Job Change Crew Member Name Role Phone Antnoella Lucas Primary Care Provider +1- [phone] Reason for Referral * Diagnostic Test (Routine) - Closed Specialty Diagnoses / Procedures Referred By Contac t Referred To Contact Radiology Diagnoses S/P CABG x [address] Chest wo Contrast (Generic) Luz Myles [place] [facility] [place] [address] [facility] [place] [address] Referral ID Status Reason Start Date Expiration Date V isits Requested Visits Authorized [id number] Closed Specialty Service Requested 12/27/2018 12/27/2019 1 1 Reason for Visit * Diagnostic Test (Routine) - Closed Specialty Diagnoses / Procedures Referred By Contac t Referred To Contact Radiology Diagnoses S/P CABG x [address] Chest wo Contrast (Generic) Luz Myles PA [facility] [place] [address] [facility] [place] [address] Referral ID Status Reason Start Date Expiration Date V isits Requested Visits Authorized [id number] Closed Specialty Service Requested 12/27/2018 12/27/2019 1 1 Encounter Details Date Type Department Care Team (Latest Contact Info) Description 01/25/2019 12:17 PM EST - 01/25/2019 11:59 PM EST Hospital Encounter CT Scan at [facility] [place] [address] Louis De La O MD [facility] [place] [address] S/P CABG x 2 Discharge Disposition: Home Social History Tobacco Use Types Packs/Day Years [...] on file documented as of this encounter Medications at Time of Discharge [...] 12/27/2018 01/26/2019 documented as of this encounter Plan of Treatment Not on file documented as of this encounter Procedures Procedure Name Priority Date/Time Associated Diagnosis Comments CT CHEST WO CONTRAST (GENERIC) Routine 01/25/2019 12:41 PM EST S/P CABG x 2 documented in this encounter Results * (ABNORMAL) CT Chest wo Contrast (Generic) [...] contact the number below. ? Narrative 01/25/2019 3:01 PM EST EXAMINATION: CT [...] Unexpected Finding Louis De La O MD IMG CT ORDERABLES documented in this encounter Visit Diagnoses Diagnosis S/P CABG x 2 Postsurgical aortocoronary bypass status documented in this encounter Care Teams Job Change Crew Member Relationship Specialty Start Date End Date Antonella Lucas PA [address] [place] [address] PCP - General Family Medicine 05/06/17 11/01/19 documented as of this encounter
--- OUTSIDE RECORDS SUMMARY | 2023-10-15 18:59 | XMS_ITS | Encounter Summary ---
Author Organization Formerly [facility] [place] [address] Care Team Providers Care Grain Farmworker Name Role Phone Lance Antonella ARRIAGA Primary Care Provider +1- [phone] Encounter Details Date Type Department Care Team (Late st Contact Info) Description 03/24/2019 Orders Only Cardiology at [address] [address] Keven Dyson, RN Research study patient Social [...] of this encounter Results * Research Venipuncture (03/24/2019 8:40 AM EST) Research Venipuncture Drawn [facility] Blood specimen (specimen) 03/24/2019 8:40 AM EST 03/24/2019 8:57 AM EST Narrative Resulting Agency Comment Spec In Lab Marlo Keith MD CHEMISTRY ORDERABL ES [facility] [place] [address] documented in this encounter Visit Diagnoses Diagnosis Research study patient Reserved for inherently not codable concepts WITHOUT codable children documented in this encounter Care Teams Grain Farmworker Relationship Specialty Start Date End Date Antonella Lucas PA [address] [place] [address] PCP - General Family Medicine 05/06/17 11/01/19 documented as of this encounter
--- OUTSIDE RECORDS SUMMARY | 2023-10-15 18:59 | XMS_ITS | Encounter Summary ---
Author Organization [facility] [place] [address] Care Team Providers Care Health Facilities Surveyor Name Role Phone Antonella Lucas Primary Care Provider +1- [phone] Encounter Details Date Type Department Care Team (Latest Contact Info) Description 02/22/2019 10:45 AM EST Laboratory Appointment Cardiology at [address] [address] Research study patient Social History Tobacco Use [...] Date/Time Associated Diagnosis Comments HC VENIPUNCTURE Routine 02/22/2019 10:51 AM EST Research study patient documented in this encounter Results * Research Venipuncture (02/22/2019 10:51 AM EST) Research Venipuncture Drawn [facility] Blood specimen (specimen) 02/22/2019 10:51 AM EST 02/22/2019 11:00 AM EST Narrative Resulting Agency Comment Spec In Lab Marlo Keith MD CHEMISTRY ORDERABL ES [facility] [place] [address] documented in this encounter Visit Diagnoses Diagnosis Research study patient Reserved for inherently not codable concepts WITHOUT codable children documented in this encounter Care Teams Health Facilities Surveyor Relationship Specialty Start Date End Date Antonella Lucas PA [address] [place] [address] PCP - General Family Medicine 05/06/17 11/01/19 documented as of this encounter
--- OUTSIDE RECORDS SUMMARY | 2023-10-15 18:59 | XMS_ITS | Encounter Summary ---
Author Organization [facility] [place] [address] Care Team Providers Care Hide Curer Name Role Phone Antonella Lucas Primary Care Provider +1- [phone] Encounter Details Date Type Department Care Team (Late st Contact Info) Description 02/22/2019 12:00 PM EST Office Visit Cardiology at [address] [address] Shavon Dorman, MARTIN Research study patient Social History Tobacco Use [...] Time Taken Comments Blood Pressure 109/62 02/22/2019 11:32 AM EST Pulse 55 02/22/2019 11:32 AM EST Temperature - - Respiratory Rate - - Oxygen Saturation 98% 02/22/2019 11:32 AM EST Inhaled Oxygen Concentration - - Weight 113.9 kg (251 lb) 02/22/2019 11:32 AM EST Height 188 cm (6' 2.02) 02/22/2019 11:32 AM EST Body Mass Index 32.21 02/22/2019 11:32 AM EST documented in this encounter Progress Notes * Shavon Dunne RN - 02/22/2019 12:00 PM EST EVALUATE THE EFFICACY AND SAFETY OF QPI-1002 FOR THE PREVENTION OF MAJOR ADVERSE KIDNEY EVENTS (MAKE) IN SUBJECTS AT HIGHRISK FOR ACUTE KIDNEY INJURY (DANIELA) FOLLOWING CARDIAC SURGERY STUDY Name: [id number] QPI-1002 Phase 3 for Prevention of MAKE in Subjects at High Risk for DANIELA Following Cardiac Surgery Principle Knuckle Strap Sewer: Marlo Keith MD, MS I had the pleasure of meeting with Bear Rosangela Gamboa in the clinic today. The purpose of the visit isin follow up at the 60 time-point for participation in the [id number] clinical trial. Ongoing adverse events and interim medical record review performed. Bear Adames Bee denies having experienced the following: ??? Renal replacement therapy ??? Re-hospitalization ??? Emergency room visits Bear Jenkinsughton also denies having experienced any other protocol defined events. Interim review ofmedical records was performed. Opportunity for questions was offered and all questions were answered to the satisfaction of the subject. Bear Adames Bee verbalizes understanding of next protocol defined follow up visit at 90 time-point. Of note: Mr. Gamboa brought to his appointment today a letter from his PCP that states an incidental finding of a 2.7cm thyroid nodule was noted on his CT scan from 01/25/19. The CT from 01/25/19 also stated that the nodule was stable compared to 09/07/2018. CT images from 09/07/18 had been provided by an outside hospital, but the official read was not provided. Mr. Gamboa was concerned because he had not been informed of this finding prior to receiving the note from his PCP. He has an appointment scheduled with his PCP for 03/01/2019. This new information was reported to Dr. De La O. Mr. Gamboa had the opportunity to discuss this with Dr. De La O who stated a referral to endocrinology would be placed. Current Medications: Current Outpatient Medications: ??? naproxen [...] daily., Disp: 60 tablet, Rfl: 3 ??? glipiZIDE (GLUCOTROL XL) 5 mg [...] Tablet(s), Sublingual, PRN, Disp: , Rfl: ??? senna-docusate (PERICOLACE) 8.6-50 mg Tablet, Take 2 tablets by mouth daily as needed for Constipation. (Patient not taking: Reported on 02/22/2019), Disp: , Rfl: ??? sildenafil (VIAGRA) 50 mg tablet, 50 MG = 1 Tablet(s), PO, PRN (Patient not taking: No sig reported), Disp: , Rfl: Vital Signs: BP 109/62 Pulse 55 Ht 188 cm (6' 2.02) Wt 113.9 kg (251 lb) SpO2 98% BMI 32.21 kg/m?? Respiratory rate: 18 Central Labs: drawn and sent to [facility] for processing/shipping. documented in this encounter Plan of Treatment Not on file documented as of this encounter Visit Diagnoses Diagnosis Research study patient Reserved for inherently not codable concepts WITHOUT codable children documented in this encounter Care Teams Hide Curer Relationship Specialty Start Date End Date Antonella Lucas PA [address] [place] [address] PCP - General Family Medicine 05/06/17 11/01/19 documented as of this encounter
--- OUTSIDE RECORDS SUMMARY | 2023-10-15 18:59 | XMS_ITS | Encounter Summary ---
[place] [address] Care Team Providers Care Manager Internal Name Role Phone Antonella Lucas Primary Care Provider +1- [phone] Encounter Details Date Type Department Care Team (Latest Contact Info) Description 05/09/2019 11:40 AM EST Laboratory Appointment Lab [address] [place] [phone] Thyroid nodule Social History Tobacco Use Types Packs/Day Years [...] Name Priority Date/Time Associated Diagnosis Comments HC THYROID STIMULATING HORMONE, SERUM STAT 05/09/2019 11:49 AM EST Thyroid nodule T4, FREE STAT 05/09/2019 11:49 AM EST documented in this encounter Results * (ABNORMAL) T4, free (05/09/2019 11:49 AM EST) Free T4 0.53(L) 0.93 - 1.70 ng/dL [facility] Blood specimen (specimen) Venous Draw / Unknown 05/09/2019 11:49 AM EST 05/09/2019 12:11 PM EST Narrative Resulting Agency Comment Spec In Lab Mickey Alejandra MD CHEMISTRY ORDERABLE S [facility] [place] [address] * (ABNORMAL) TSH (05/09/2019 11:49 AM EST) TSH 5.28(H) 0.27 - 4.20 mcIU/mL [facility] Blood specimen (specimen) 05/09/2019 11:49 AM EST 05/09/2019 11:55 AM EST Narrative Resulting Agency Comment Spec In Lab Mickey Alejandra MD CHEMISTRY ORDERABLE S Performing Organization Address City/[facility]/ZIP Co de Phone Number [facility] [place] [address] documented in this encounter Visit Diagnoses Diagnosis Thyroid nodule Nontoxic uninodular goiter documented in this encounter Care Teams Manager Internal Relationship Specialty Start Date End Date Antonella Lucas PA [address] [place] [address] PCP - General Family Medicine 05/06/17 11/01/19 documented as of this encounter
--- OUTSIDE RECORDS SUMMARY | 2023-10-15 18:59 | XMS_ITS | Encounter Summary ---
Author Organization [facility] Address [facility] [place] [address] Care Team Providers Care E Commerce Merchandising Coordinator Name Role Phone Antonella Lucas Primary Care Provider +1- [phone] Encounter Details Date Type Department Care Team (Latest Contact Info) Description 01/25/2019 12:05 PM EST - 01/25/2019 12:16 PM [facility] Hospital Encounter XRay at [address] [place] [address] Louis De La O MD [facility] [place] [address] S/P CABG x 2 Discharge Disposition: Home [...] Procedure Name Priority Date/Time Associated Diagnosis Comments XR CHEST PA AND LATERAL Routine 01/25/2019 12:10 PM EST S/P CABG x 2 documented in this encounter Results * XR Chest PA & Lateral (Generic) [...] below. ? Electronically signed by: Gladys Leslie [facility] ([phone]), at 01/25/2019 12:57 PM Narrative 01/25/2019 12:57 PM EST EXAMINATION: XR [...] number below. Electronically signed by: Gladys Leslie [facility]([phone]), at 01/25/2019 12:57 PM Louis De La O MD IMG DX ORDERABLES documented in this encounter Visit Diagnoses Diagnosis S/P CABG x 2 Postsurgical aortocoronary bypass status documented in this encounter Care Teams E Commerce Merchandising Coordinator Relationship Specialty Start Date End Date Antonella Lucas PA [address] [place] [address] PCP - General Family Medicine 05/06/17 11/01/19 documented as of this encounter
--- OUTSIDE RECORDS SUMMARY | 2023-10-15 18:59 | XMS_ITS | Encounter Summary ---
Author Organization [facility] [place] [address] Care Team Providers Care Cotton Tier Name Role Phone Lance Cathiedayna Luly ARRIAGA Primary Care Provider +1- [phone] Encounter Details Date Type Department Care Team (Latest Contact Info) Description 03/24/2019 Unscheduled Encounter Cardiology at [address] [address] Keven Dyson, RN Research study patient Social [...] Progress Notes * Keven Dyson, RN - 03/24/2019 11:31 AM EST I met briefly with Mr. Gamboa this morning. The purpose of the encounter was to collect the balance of study labs required for his 90 day evaluation as pat of his participation in the [id number] trial. All protocol driven labs were collected and processed per protocol. * Keven Dyson, RN - 03/24/2019 11:31 AM EST Mr. Gamboa stated that he was not fasting on the morning of his lab draw (). documented in this encounter Plan of Treatment Not on file documented as of this encounter Visit Diagnoses Diagnosis Research study patient Reserved for inherently not codable concepts WITHOUT codable children documented in this encounter Care Teams Cotton Tier Relationship Specialty Start Date End Date Antonella Lucas PA [address] [place] [address] PCP - General Family Medicine 05/06/17 11/01/19 documented as of this encounter
--- OUTSIDE RECORDS SUMMARY | 2023-10-15 18:59 | XMS_ITS | Encounter Summary ---
Author Organization [facility] [place] [address] Care Team Providers Care Bracelet And Brooch Maker Name Role Phone Unknown Primary Care Provider Unavailabl e Encounter Details Date Type Department Care Team (Late st Contact Info) Description 12/13/2019 Orders Only Cardiology at [address] [phone] Shavon Dorman, RN Research study patient Social [...] of this encounter Results * Research Venipuncture (12/20/2019 8:20 AM EDT) Research Venipuncture Drawn [facility] Blood specimen (specimen) 12/20/2019 8:20 AM EDT 12/20/2019 8:37 AM EDT Narrative Resulting Agency Comment Spec In Lab Marlo Keith MD CHEMISTRY ORDERABL ES [facility] [place] [address] documented in this encounter Visit Diagnoses Diagnosis Research study patient Reserved for inherently not codable concepts WITHOUT codable children documented in this encounter Care Teams Bracelet And Brooch Maker Relationship Specialty Start Date End Date Unknown None PCP - General 11/02/19 12/19/19 documented as of this encounter
--- OUTSIDE RECORDS SUMMARY | 2023-10-15 18:59 | XMS_ITS | Encounter Summary ---
Author Organization [facility] [place] [address] Care Team Providers Care Gas Well Drilling Manager Name Role Phone Antonella Lucas Primary Care Provider +1- [phone] Encounter Details Date Type Department Care Team (Latest Contact Info) Description 01/25/2019 2:00 PM EST Office Visit Cardiology at [address] [address] Shavon Dorman RN ASCVD (arteriosclerotic cardiovascular disease) Social History [...] Time Taken Comments Blood Pressure 117/82 01/25/2019 1:54 PM EST Pulse 89 01/25/2019 1:54 PM EST Temperature - - Respiratory Rate - - Oxygen Saturation 98% 01/25/2019 1:54 PM EST Inhaled Oxygen Concentration - - Weight 112 kg (247 lb) 01/25/2019 1:54 PM EST Height 188 cm (6' 2) 01/25/2019 1:54 PM EST Body Mass Index 31.71 01/25/2019 1:54 PM EST documented in this encounter Progress Notes * Shavon Dunne RN - 01/25/2019 2:00 PM EST EVALUATE THE EFFICACY AND SAFETY OF QPI-1002 FOR THE PREVENTION OF MAJOR ADVERSE KIDNEY EVENTS (MAKE) IN SUBJECTS AT HIGHRISK FOR ACUTE KIDNEY INJURY (DANIELA) FOLLOWING CARDIAC SURGERY STUDY NUMBER: [id number] QPI-1002 Phase 3 for Prevention of MAKE in Subjects at High Risk for DANIELA Following Cardiac Surgery Principle Inspector Electromechanical: Marlo Keith MD, MS I had the pleasure of meeting with Bear Gamboa in the clinic today. The purpose of the visit isin follow up at the 30 day time-point for participation in the [id number] clinical trial. Ongoing adverse events and interim medical record review performed. Bear Gamboa denies having experienced the following: ??? Renal replacement therapy ??? Re-hospitalization ??? Emergency room visits Bear Gamboa also denies having experienced any other protocol defined events. Interim review ofmedical records was performed. Bear states he has been receiving VNA services, but that has stoppednow that he has begun cardiac rehab. Opportunity for questions was offered and all questions were answered to the satisfaction of the subject. Bear Gamboa verbalizes understanding of next protocol defined follow up visit at 60 time-point. Current Medications: Current Outpatient Medications: ??? aspirin 81 mg Tablet, Chewable, Take [...] tablets by mouth daily as needed for Constipation., Disp: , Rfl: ??? nicotine (NICODERM CQ) 21 mg/24 hr Patch 24 hr, Place 2 patches onto the skin daily for 30 days., Disp: 60 patch, Rfl: 0 ??? glipiZIDE (GLUCOTROL XL) 5 mg [...] tablet, 50 MG = 1 Tablet(s), PO, PRN, Disp: , Rfl: Vital Signs: BP 117/82 Pulse 89 Ht 188 cm (6' 2) Wt 112 kg (247 lb) SpO2 98% BMI 31.71 kg/m?? Resp. 18. Central Labs: drawn and sent to [facility] for processing/shipping. documented in this encounter Plan of Treatment Not on file documented as of this encounter Visit Diagnoses Diagnosis ASCVD (arteriosclerotic cardiovascular disease) Unspecified cardiovascular disease documented in this encounter Care Teams Gas Well Drilling Manager Relationship Specialty Start Date End Date Antonella Lucas PA [address] [place] [address] PCP - General Family Medicine 05/06/17 11/01/19 documented as of this encounter
--- OUTSIDE RECORDS SUMMARY | 2023-10-15 18:59 | XMS_ITS | Encounter Summary ---
Author Organization [facility] [address] Care Team Providers Care Systems Requirements Planner Name Role Phone Antonella Lucas Primary Care Provider +1- [phone] Encounter Details Date Type Department Care Team (Late st Contact Info) Description 12/22/2019 Notes Only Cardiology at [address] [address] Shavon Dorman RN Social History Tobacco Use Types Packs/Day Years [...] Progress Notes * Shavon Dunne RN - 12/22/2019 11:32 AM EDT [id number] study: Central lab results from Mr. Gamboa's post study follow up visit (12/20/19) were reviewed with . Upon his request the PCP office was contacted and these lab results were sent for their review and management. documented in this encounter Plan of Treatment Not on file documented as of this encounter Visit Diagnoses Not on filedocumented in this encounter Care Teams Systems Requirements Planner Relationship Specialty Start Date End Date Antonella Lucas PA [address] [place] [address] PCP - General Family Medicine 12/20/19 documented as of this encounter
--- OUTSIDE RECORDS SUMMARY | 2023-10-15 18:59 | XMS_ITS | Encounter Summary ---
Author Organization [facility] [place] [address] Care Team Providers Care Cloth Feeder Name Role Phone Antonella Lucas Primary Care Provider +1- [phone] Encounter Details Date Type Department Care Team (Late st Contact Info) Description 12/27/2018 Notes [place] [address] Elva Connelly Social History Tobacco Use Types Packs/Day Years [...] as of this encounter Progress Notes * Elva Connelly - 12/27/2018 1:43 PM EDT Patient cut down from 3 ppd to 2 ppd prior to recent surgery. He has a lot of support for quitting,including a new girlfriend and family members. He is a little apprehensive about what will happen when he gets home, but he knows how important itis for his health. He will return for follow up in one week and will follow up with tobacco customer experience specialist then. documented in this encounter Plan of Treatment Not on file documented as of this encounter Visit Diagnoses Not on filedocumented in this encounter Care Teams Cloth Feeder Relationship Specialty Start Date End Date Antonella Lucas PA [address] [place] [address] PCP - General Family Medicine 05/06/17 11/01/19 documented as of this encounter
--- OUTSIDE RECORDS SUMMARY | 2023-10-15 18:59 | XMS_ITS | Encounter Summary ---
[place] [address] Care Team Providers Care Limousine And Hearse Upholsterer Name Role Phone Antonella Lucas Primary Care Provider +1- [phone] Encounter Details Date Type Department Care Team (Latest Contact Info) Description 01/25/2019 12:00 PM EST Laboratory Appointment Lab [address] [place] [address] ASCVD (arteriosclerotic cardiovascular disease) Social History Tobacco [...] Date/Time Associated Diagnosis Comments HC VENIPUNCTURE Routine 01/25/2019 11:54 AM EST ASCVD (arteriosclerotic cardiovascular disease) documented in this encounter Results * Research Venipuncture (01/25/2019 11:54 AM EST) Research Venipuncture Drawn [facility] Blood specimen (specimen) 01/25/2019 11:54 AM EST 01/25/2019 12:05 PM EST Narrative Resulting Agency Comment Spec In Lab Louis De La O MD CHEMISTRY ORDERABLE S Performing Organization Address City/State/[facility] Co de Phone Number [facility] [place] [address] documented in this encounter Visit Diagnoses Diagnosis ASCVD (arteriosclerotic cardiovascular disease) Unspecified cardiovascular disease documented in this encounter Care Teams Limousine And Hearse Upholsterer Relationship Specialty Start Date End Date Antonella Lucas PA [address] [place] [address] PCP - General Family Medicine 05/06/17 11/01/19 documented as of this encounter
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
--- OUTSIDE RECORDS SUMMARY | 2023-10-15 18:59 | XMS_ITS | Encounter Summary ---
Author Organization [facility] [place] [address] Care Team Providers Care Classifier Operator Name Role Phone Antonella Lucas Primary Care Provider +1- [phone] Encounter Details Date Type Department Care Team (Latest Contact Info) Description 12/20/2019 8:00 AM EDT Laboratory Appointment Cardiology at [address] [address] Research study patient Social History Tobacco Use [...] Date/Time Associated Diagnosis Comments HC VENIPUNCTURE Routine 12/20/2019 8:20 AM EDT Research study patient documented in this encounter Results * Research Venipuncture (12/20/2019 8:20 AM EDT) Research Venipuncture Drawn [facility] Blood specimen (specimen) 12/20/2019 8:20 AM EDT 12/20/2019 8:37 AM EDT Narrative Resulting Agency Comment Spec In Lab Marlo Keith MD CHEMISTRY ORDERABL ES [facility] [place] [address] documented in this encounter Visit Diagnoses Diagnosis Research study patient Reserved for inherently not codable concepts WITHOUT codable children documented in this encounter Care Teams Classifier Operator Relationship Specialty Start Date End Date Antonella Lucas PA [address] [place] [address] PCP - General Family Medicine 12/20/19 documented as of this encounter
--- OUTSIDE RECORDS SUMMARY | 2023-10-15 18:59 | XMS_ITS | Encounter Summary ---
Author Organization [facility] [place] [address] Care Team Providers Care Tile Trimmer Name Role Phone Antonella Lucas Primary Care Provider [phone]- [phone] Encounter Details Date Type Department Care Team (Late st Contact Info) Description 12/20/2019 8:00 AM EDT Office Visit Cardiology at [address] [address] Shavon Dorman RN Research study patient Social History Tobacco [...] Pulse 69 12/20/2019 8:04 AM EDT Temperature - - Respiratory Rate - - Oxygen Saturation 99% 12/20/2019 8:04 AM EDT Inhaled Oxygen Concentration - - Weight 122.1 kg (269 lb 3.2 oz) 12/20/2019 8:04 AM EDT Height 188 cm (6' 2) 12/20/2019 8:04 AM EDT Body Mass Index 34.56 12/20/2019 8:04 AM EDT documented in this encounter Progress Notes * Shavon Dunne RN - 12/20/2019 8:00 AM EDT EVALUATE THE EFFICACY AND SAFETY OF QPI-1002 FOR THE PREVENTION OF MAJOR ADVERSE KIDNEY EVENTS (MAKE) IN SUBJECTS AT HIGHRISK FOR ACUTE KIDNEY INJURY (DANIELA) FOLLOWING CARDIAC SURGERY STUDY NUMBER: [id number] QPI-1002 Phase 3 for Prevention of MAKE in Subjects at High Risk for DANIELA Following Cardiac Surgery Principle Medical Biller/Coder: Marlo Keith MD, MS I had the pleasure of meeting with Bear Gamboa in the clinic today. The purpose of the visit isin follow up at the 1 year time-point for participation in the GAI485 clinical trial. Ongoing adverse events and interim medical record review performed. Bear Gamboa denies having experienced the following: ??? Renal replacement therapy ??? Re-hospitalization ??? Emergency room visits ??? Newly diagnosed malignancy Bear Gamboa also denies having experienced any other protocol defined events. Interim review ofmedical records was performed. Opportunity for questions was offered and all questions were answered to the satisfaction of the subject. Bear Gamboa verbalizes understanding that this is visit ayala the end of their participation in the [id number] clinical trial. Current Outpatient Medications: ??? levothyroxine (Synthroid) 25 mcg Tablet, Take 1 tablet by mouth daily., Disp: 60 tablet, Rfl: 5 ??? aspirin 81 mg Tablet, Chewable, Take 81 mg by mouth daily., Disp: , Rfl: ??? acetaminophen (TYLENOL) 500 mg Tablet, Take 2 tablets by mouth every 6 hours as needed for Pain., Disp: , Rfl: ??? metoprolol tartrate (LOPRESSOR) 75 mg Tablet, Take 1 tablet by mouth 2 times daily., Disp: 60 tablet, Rfl: 3 ??? furosemide (LASIX) 20 mg Tablet, Take [...] Tablet(s), Sublingual, PRN, Disp: , Rfl: ??? Jardiance 10 mg Tablet, Take 10 mg by mouth daily., Disp: , Rfl: ??? EPINEPHrine 0.3 mg/0.3 mL Auto-Injector, Inject 0.3 mg into the muscle as needed., Disp: , Rfl: ??? naproxen sodium (ALEVE) 220 mg Capsule, Take by mouth., Disp: , Rfl: ??? senna-docusate (PERICOLACE) 8.6-50 mg Tablet, Take 2 tablets by mouth daily as needed for Constipation. (Patient not taking: Reported on 12/20/2019), Disp: , Rfl: ??? glipiZIDE (GLUCOTROL XL) 5 mg Tablet Extended Rel 24 hr, Take 5 mg by mouth daily., Disp: , Rfl: ??? sildenafil (VIAGRA) 50 mg tablet, 50 MG = 1 Tablet(s), PO, PRN (Patient not taking: No sig reported), Disp: , Rfl: Vital Signs: BP 134/68 Pulse 69 Ht 188 cm (6' 2) Wt 122.1 kg (269 lb 3.2 oz) SpO2 99% BMI 34.56 kg/m?? Central Labs: drawn and sent to [facility] for processing/shipping. documented in this encounter Plan of Treatment Not on file documented as of this encounter Visit Diagnoses Diagnosis Research study patient Reserved for inherently not codable concepts WITHOUT codable children documented in this encounter Care Teams Tile Trimmer Relationship Specialty Start Date End Date Antonella Lucas PA [address] [place] [address] PCP - General Family Medicine 12/20/19 documented as of this encounter
--- OUTSIDE RECORDS SUMMARY | 2023-10-15 19:00 | XMS_ITS | Encounter Summary ---
Author Organization [facility] Address [facility] [place] [address] Care Team Providers Care Reinforcing Steel Machine Operator Name Role Phone Antonella Lucas Primary Care Provider [phone]- [phone] Reason for Visit * Auth/Cert Specialty Diagnoses [...] Expiration Date Visits Re quested Visits Authorized [id number] 1 1 Encounter Details Date Type Department Care Team (Latest Contact Info) Description 12/21/2018 10:15 AM EDT - 12/21/2018 11:59 PM EDT Hospital Encounter XRay at [address] [place] [address] Louis De La O MD [facility] C[place]OTH[place]AC[place] [address] Coronary artery disease of kan[place] heart with stable angina pectoris, unspecified vessel or lesion type Discharge Disposition: Home Social History Tobacco Use [...] for 30 days. 60 patch 12/27/2018 01/26/2019 chlorhexidine (HIBICLENS) 4 % Liquid Apply topically daily as needed. Shower from head to toe with Chlorhexidine the night before surgery . 120 mL 12/21/2018 12/23/2018 metoprolol succinate (TOPROL-XL) 100 mg Tablet Sustained Release 24 hr Take 100 mg by mouth 2 times daily. 12/27/2018 lisinopril (PRINIVIL;ZESTRIL) 2.5 mg Tablet Take 2.5 mg by mouth daily. 12/27/2018 aspirin 325 mg tablet 325 MG = 1 Tablet(s), PO, Once daily 03/18/2010 12/27/2018 documented as of this encounter Plan of Treatment Not on file documented as of this encounter Procedures Procedure Name Priority Date/Time Associated Diagnosis Comments XR CHEST PA AND LATERAL Routine 12/21/2018 10:29 AM EDT Coronary artery disease of kan[place] heart with stable angina pectoris, unspecified vessel or lesion type documented in this encounter Results * XR Chest PA & Lateral (Generic) (12/21/2018 10:29 AM EDT) Anatomical Region Laterality Modality Chest N/A Digital Radiogra phy Impressions 12/21/2018 11:02 AM EDT No acute cardiopulmonary process. I have personally reviewed the image(s) and the residents interpretation and agree with the findings, Shannon Long at 12/21/2018 11:02 AM Thank you for letting us participate in the care of this patient. For questions regarding this report, please contact the number below. ? Electronically signed by: Shannon Long [facility] ([phone]), at 12/21/2018 11:02 AM Narrative 12/21/2018 11:02 AM EDT EXAMINATION: XR CHEST PA AND LATERAL (GENERIC) CLINICAL HISTORY: pre op TECHNIQUE: Frontal and lateral views of the chest COMPARISON: None FINDINGS: Lungs are clear. No pneumothorax or pleural effusions. Cardiac mediastinal silhouette, catina, and pulmonary vasculature are within normal limits. No acute osseous findings. Procedure Note Shannon Long MD - 12/21/2018 EXAMINATION: XR CHEST PA AND LATERAL (GENERIC) CLINICAL HISTORY: pre op TECHNIQUE: Frontal and lateral views of the chest COMPARISON: None FINDINGS: Lungs are clear. No pneumothorax or pleural effusions. Cardiacmediastinal silhouette, catina, and pulmonary vasculature are within normal limits. Noacute osseous findings. IMPRESSION No acute cardiopulmonary process. I have personally reviewed the image(s) and the residents interpretationand agree with the findings, Shannon Long at 12/21/2018 11:02 AM Thank you for letting us participate in the care of this patient. Forquestions regarding this report, please contact the number below. Louis De La O MD IMG DX ORDERABLES documented in this encounter Visit Diagnoses Diagnosis Coronary artery disease of kan[place] heart with stable angina pectoris, unspecified vessel or lesion type documented in this encounter Care Teams Reinforcing Steel Machine Operator Relationship Specialty Start Date End Date Antonella Lucas PA [address] [place] [address] PCP - General Family Medicine 05/06/17 11/01/19 documented as of this encounter
--- OUTSIDE RECORDS SUMMARY | 2023-10-15 19:00 | XMS_ITS | Encounter Summary ---
Author Organization [facility] [place] [address] Care Team Providers Care Senior Health Educator Name Role Phone Antonella Lucas Primary Care Provider [phone]- [phone] Encounter Details Date Type Department Care Team (Late st Contact Info) Description 12/03/2018 Orders Only Cardiology at [address] [address] Meghan Victor PA [facility] [place] [address] ASCVD (arteriosclerotic cardiovascular disease) Social History Tobacco Use Types Packs/Day Years Used Date Smoking Tobacco: Every Day Cigarettes Smokeless Tobacco: Never Sex and Gender Information Value Date Recorded Sex Assigned at Not on file Gender Identity Not on file Sexual Orientation Not on file documented as of this encounter Plan of Treatment Not on file documented as of this encounter Procedures Procedure Name Priority Date/Time Associated Diagnosis Comments CARDIAC CATHETERIZATION Routine 12/08/2018 3:10 PM EDT ASCVD (arteriosclerotic cardiovascular disease) documented in this encounter Results * CARDIAC CATHETERIZATION (12/08/2018 3:10 PM EDT) Anatomical Region Laterality Modality Other Narrative 12/09/2018 4:24 PM EDT ?[facility] ? Cardiac Catheterization/Intervention Report ? Patient Name: Bee, Bear ? Procedure Date: 12/08/2018 ? A #: [id number] ? Primary Physician: Amado, Irwin N ? Case #: [id number] ? File Name: [id number] ? Catheterization Order Number: [id number] ? [facility] ? Final Report [place], [place] ? Patient Name: ? Bear Gamboa ?ID#: ?[id number] ? : ?1950 ? Procedure Date: ? December 08, 2018 ? Case #: ? [id number] ? Room: ? 1 ? Case Physician: ? Irwin Fischer M.D. ?Start: ?14:42 ?Fellow: ? Orville Blair M.D. ?Admission: ??12/08/2018 ? Discharge: ??12/08/2018 ? Referring Physician: ??Vaibhav Ortez M.D. ? Procedures: ?* Coronary Angiography ?* Left Heart Catheterization ? History ?Bear Gamboa is a 68 year old man. He has hypertension. The patient's ?smoking status is Current with Current - Every Day frequency, using ?cigarettes. Cigarette use is Heavy (>=10/day). He has ?hypercholesterolemia managed with lipid therapy. The patient has diabetes ?managed with oral medication. He has a prior history of coronary artery ?disease. The patient is status post a remote myocardial infarction. He ?had a remote coronary intervention procedure. Prior to the initiation of ?this procedure, the patient was designated as ASA Class III. The CSHA ?clinical frailty scale is 4: Vulnerable. ? Diagnostic Tests: ?Prior Coronary Angiography: ? LV ejection fraction within 6 months is 66%. ?Electrocardiography: ? EKG was assessed by ECG. EKG was Abnormal. EKG showed other ? abnormality. ?Stress or Imaging Studies: ? A stress test with SPECT imaging was performed on 11/25/2018 and was ? Positive with High results. ?Medications Prior to Procedure: ? Aspirin, Beta Tessy and Statin. ? Indications for Diagnostic Cath: ?The priority of the diagnostic procedure was Elective. The indication for ?the cath lab nurse visit is worsening angina and other indication. Chest pain ?symptom assessment was: Typical Angina. ? Technique: ?A 6 SLFr sheath was inserted in the right radial artery utilizing the ?Seldinger technique. The left coronary artery was injected utilizing a ?5Fr KISHA RADIAL catheter. A 5Fr KISHA RADIAL catheter was used to inject ?the right coronary artery. Left ventricular pressure was performed with a ?5Fr KISHA RADIAL catheter. 5,000 units of heparin were administered. A ?total of 100cc of Omnipaque were opened, 55cc of Omnipaque were ?administered and 45cc of Omnipaque were wasted. Radiation: Fluoro time ?was 3.4 minutes, dose area product was 70,712 mGYcm2 and air kerma was ?1,116 mGY. See the case log for additional details. ?The patient received the following medications prior to and during the ?procedure: ? Unfractionated Heparin. ? Hemodynamics: ?Left Heart Pressures ? Resting: ? Syst Diast ? EDP ?a ?v ? m ?Ao 106 ?? 68 ?87 ?LV 107 ? 5 ? Coronary Angiography: ?Dominance: Right ?Left Main ? There was mild diffuse (<=25% stenosis) disease of the entire vessel ? segment of the left main artery. ?Left Anterior Descending ? There was mild diffuse (<=25% stenosis) disease of the proximal ? segment of the left anterior descending artery (LAD). ??The LAD was ? large. ??The mid segment of the LAD had a single discrete total ? occlusion. ??Distal flow was via the [place] shoshone vessel, collaterals from ? the LCX as well as bridging collaterals. ??There also was mild ? diffuse (<=25% stenosis) disease of the distal segment of the LAD. ? There was a 50% single discrete stenosis of the proximal segment of ? the second diagonal branch (Diagonal 2) of the LAD. ??The Diagonal 2 ? was moderate in size. ?Left Circumflex ? There was moderate diffuse (<=50% stenosis) disease of the entire ? vessel segment of the left circumflex artery (LCX). ??The LCX was ? moderate in size. ?Right Coronary Artery ? 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 ??The RCA was large. ? Distal flow was via the yomba shoshone vessel and collaterals from the LAD. ?Ramus ? There was a 50% diffuse stenosis of the proximal segment of the ? ramus. ??The ramus was large. ? Vascular Access: ?Vascular Access Management: ? Mechanical Compression of the right radial artery access site was ? performed. ? Conclusions: ?* Three vessel coronary artery disease (LAD, LCX and RCA) ? Complications/Events: ?The patient had no complications during these procedures. ? Recommendations: ?Based upon the results of this procedure, it was recommended that ?coronary artery bypass surgery be considered. ? Comments: ?Surgeon: Surgeon(s) and Role: ? * Amado, Irwin De Leon, MD - Primary ? * Johnnie, Orville Galvan, MD - Fellow ?Preoperative diagnosis: ASCVD (arteriosclerotic cardiovascular disease) ?[I25.10] ?Postoperative diagnosis: ASCVD (arteriosclerotic cardiovascular disease) ?[I25.10] ?Procedure(s) (LRB): ?CARDIAC CATHETERIZATION (N/A) ?CORONARY ANGIOGRAPHY; W LHC,POSSIBLE PCI ?Findings: ?LM - Mild diffuse disease; 50% proximal stenosis in the Ramus Intermedius ?LAD - 100% mid-vessel SALES PROMOTER; 50% ostial D2 stenosis; distal vessel receives ?L->L collaterals from a Ramus Intermedius ?LCX - Diminutive non-dominant vessel with moderate diffuse disease ?RCA - Dominant vessel; large territory of aneurysmal dilatation with ?small segments of dissection in the mid-vessel; 100% occlusion in the ?mid-vessel; distal vessel filled via L->R collaterals ?LVEDP ~6 mmHg; no significant gradient across the aortic valve ?Findings discussed with Dr. Wan Jones, who will see the patient in ?formal CT surgery consultation for consideration of multivessel bypass ?surgery. ?The attending physician was present for the entire procedure. ?Dr. Irwin Fischer M.D. was present during the moderate sedation ?intraservice time as documented by the sedation nurse. ??Case time = 00:21. ?Dr. Irwin Fischer M.D. performed the coronary angiography and left heart ?catheterization. ? Irwin Fischer M.D. ? Electronically Signed by: Irwin Fischer M.D. ? Report Finalized: 12/09/2018 ??16:20 ? Report Last Ammended: 11/12/2019 ??15:25 ? Procedure Note Irwin Fischer MD - 11/12/2019 [facility] Cardiac Catheterization/Intervention Report Patient Name: Bear Gamboa Procedure Date: 12/08/2018 A #: [id number] Primary Physician: Irwin Fischer Case #: [id number] File Name: [id number] Catheterization Order Number: [id number] [facility] FinalReport [place], [place] Patient Name: Bear Gamboa ID#:[id number] :1950 Procedure Date: December 08, 2018 Case #: [id number] Room: 1 Case Physician: Irwin Fischer M.D. Start: 14:42 Fellow: Orville Blair M.D. Admission:12/08/2018 Discharge:12/08/2018 Referring Physician: Vaibhav Ortez M.D. Procedures: * Coronary Angiography * Left Heart Catheterization History Bear Gamboa is a 68 year old man. He has hypertension. Thepatient's smoking status is Current with Current - Every Day frequency, using cigarettes. Cigarette use is Heavy (>=10/day). He has hypercholesterolemia managed with lipid therapy. The patient hasdiabetes managed with oral medication. He has a prior history of coronaryartery disease. The patient is status post a remote myocardial infarction.He had a remote coronary intervention procedure. Prior to theinitiation of this procedure, the patient was designated as ASA Class III. [facility]: Vulnerable. Diagnostic Tests: Prior Coronary Angiography: LV ejection fraction within 6 months is 66%. Electrocardiography: EKG was assessed by ECG. EKG was Abnormal. EKG showed other abnormality. Stress or Imaging Studies: A stress test with SPECT imaging was performed on 11/25/2018and was Positive with High results. Medications Prior to Procedure: Aspirin, Beta Tessy and Statin. Indications for Diagnostic Cath: The priority of the diagnostic procedure was Elective. Theindication for the cath lab nurse visit is worsening angina and other indication. Chestpain symptom assessment was: Typical Angina. Technique: A 6 SLFr sheath was inserted in the right radial artery utilizingthe Seldinger technique. The left coronary artery was injected utilizinga 5Fr KISHA RADIAL catheter. A 5Fr KISHA RADIAL catheter was used toinject the right coronary artery. Left ventricular pressure was performedwith a 5Fr KISHA RADIAL catheter. 5,000 units of heparin were administered.A total of 100cc of Omnipaque were opened, 55cc of Omnipaque were administered and 45cc of Omnipaque were wasted. Radiation: Fluorotime was 3.4 minutes, dose area product was 70,712 mGYcm2 and air kermawas 1,116 mGY. See the case log for additional details. The patient received the following medications prior to and duringthe procedure: Unfractionated Heparin. Hemodynamics: Left Heart Pressures Resting: Syst Diast EDP a v m Ao 106 68 87 LV 107 5 Coronary Angiography: Dominance: Right Left Main There was mild diffuse (<=25% stenosis) disease of the entirevessel segment of the left main artery. Left Anterior Descending There was mild diffuse (<=25% stenosis) disease of the proximal segment of the left anterior descending artery (LAD). The LADwas large. The mid segment of the LAD had a single discrete total occlusion. Distal flow was via the [place] vessel, collateralsfrom the LCX as well as bridging collaterals. There also was mild diffuse (<=25% stenosis) disease of the distal segment of theLAD. There was a 50% single discrete stenosis of the proximalsegment of the second diagonal branch (Diagonal 2) of the LAD. TheDiagonal 2 was moderate in size. Left Circumflex There was moderate diffuse (<=50% stenosis) disease of theentire vessel segment of the left circumflex artery (LCX). The LCXwas moderate in size. Right Coronary Artery There was an aneurysmal single discrete total occlusion of themid segment of the right coronary artery (RCA). The RCA was large. Distal flow was via the [place] shoshone vessel and collaterals from theLAD. Ramus There was a 50% diffuse stenosis of the proximal segment of the ramus. The ramus was large. Vascular Access: Vascular Access Management: Mechanical Compression of the right radial artery access sitewas performed. Conclusions: * Three vessel coronary artery disease (LAD, LCX and RCA) Complications/Events: The patient had no complications during these procedures. Recommendations: Based upon the results of this procedure, it was recommended that coronary artery bypass surgery be considered. Comments: Surgeon: Surgeon(s) and Role: * Irwin Fischer MD - Primary * Orville Blair MD - Fellow Preoperative diagnosis: ASCVD (arteriosclerotic cardiovasculardisease) [I25.10] Postoperative diagnosis: ASCVD (arteriosclerotic cardiovasculardisease) [I25.10] Procedure(s) (LRB): CARDIAC CATHETERIZATION (N/A) CORONARY ANGIOGRAPHY; W C,POSSIBLE PCI Findings: LM - Mild diffuse disease; 50% proximal stenosis in the RamusIntermedius LAD - 100% mid-vessel SALES PROMOTER; 50% ostial D2 stenosis; distal vesselreceives L->L collaterals from a Ramus Intermedius LCX - Diminutive non-dominant vessel with moderate diffuse disease RCA - Dominant vessel; large territory of aneurysmal dilatation with small segments of dissection in the mid-vessel; 100% occlusion inthe mid-vessel; distal vessel filled via L->R collaterals LVEDP ~6 mmHg; no significant gradient across the aortic valve Findings discussed with Dr. Wan Jones, who will see thepatient in formal CT surgery consultation for consideration of multivesselbypass surgery. The attending physician was present for the entire procedure. Dr. Irwin Fischer M.D. was present during the moderate sedation intraservice time as documented by the sedation nurse. Case time =00:21. Dr. Irwin Fischer M.D. performed the coronary angiography and leftheart catheterization. Irwin Fischer M.D. Electronically Signed by: Irwin Fischer M.D. Report Finalized: 12/09/2018 16:20 Report Last Ammended: 11/12/2019 15:25 Irwin Fischer MD CARDIAC CATH ORDERAB LES documented in this encounter Visit Diagnoses Diagnosis ASCVD (arteriosclerotic cardiovascular disease) Unspecified cardiovascular disease ASCVD (arteriosclerotic cardiovascular disease) Unspecified cardiovascular disease documented in this encounter Care Teams Senior Health Educator Relationship Specialty Start Date End Date Antonella Lucas PA [address] [place] [address] PCP - General Family Medicine 05/06/17 11/01/19 documented as of this encounter
--- OUTSIDE RECORDS SUMMARY | 2023-10-15 19:00 | XMS_ITS | Encounter Summary ---
Author Organization [facility] Address [facility] [place] [address] Care Team Providers Care Ent Physician Name Role Phone Antonella Lucas Primary Care Provider [phone]- [phone] Reason for Visit * Auth/Cert Specialty Diagnoses [...] Expiration Date Visits Re quested Visits Authorized [id number] 1 1 Encounter Details Date Type Department Care Team (Latest Contact Info) Description 12/21/2018 10:00 AM EDT [place] [address] Coronary artery disease of [place] heart with stable angina pectoris, unspecified vessel or lesion type Social History Tobacco Use Types Packs/Day [...] Procedure Name Priority Date/Time Associated Diagnosis Comments ABORH RECHECK STATUS Routine 12/21/2018 10:08 AM EDT HEMOGRAM Routine 12/21/2018 10:08 AM EDT Coronary artery disease of [place] heart with stable angina pectoris, unspecified vessel or lesion type DIFFERENTIAL, AUTOMATED Routine 12/21/2018 10:08 AM EDT Coronary artery disease of [place] heart with stable angina pectoris, unspecified vessel or lesion type HC ANTIBODY DETECTION,CAPTURE-R Routine 12/21/2018 10:08 AM EDT Coronary artery disease of [place] heart with stable angina pectoris, unspecified vessel or lesion type ABO/RH TYPING Routine 12/21/2018 10:08 AM EDT Coronary artery disease of [place] heart with stable angina pectoris, unspecified vessel or lesion type HC CBC,PLT & AUTO DIFF Routine 12/21/2018 10:08 AM EDT Coronary artery disease of [place] heart with stable angina pectoris, unspecified vessel or lesion type ANTIBODY SCREEN Routine 12/21/2018 10:08 AM EDT Coronary artery disease of [place] heart with stable angina pectoris, unspecified vessel or lesion type HEPATIC FUNCTION PANEL Routine 12/21/2018 10:08 AM EDT BASIC METABOLIC PANEL (NON-FASTING) Routine 12/21/2018 10:08 AM EDT Coronary artery disease of [place] heart with stable angina pectoris, unspecified vessel or lesion type documented in this encounter Results * Hepatic Function Panel (12/21/2018 10:08 AM EDT) Total Protein 7.7 6.1 - 8.0 gm/dL [facility] Albumin 4.4 3.2 - 5.2 gm/dL [facility] AST 14 0 - 39 unit/L [facility] ALT 12 0 - 55 unit/L [facility] Alk Phos 63 40 - 130 unit/L [facility] Total Bilirubin 0.3 0.2 - 1.3 mg/dL [facility] Bili, Direct 0.1 0.0 - 0.3 mg/dL [facility] Blood specimen (specimen) Venous Draw / Unknown 12/21/2018 10:08 AM EDT 12/21/2018 10:15 AM EDT Narrative Resulting Agency Comment Spec In Lab Marlo Keith MD CHEMISTRY ORDERABL ES Performing Organization Address City/[facility]/ZIP Co de Phone Number [facility] [place] [address] * ABORH Recheck Status (12/21/2018 10:08 AM EDT) ABORH Type Recheck Completed [facility] Blood specimen (specimen) 12/21/2018 10:08 AM EDT 12/21/2018 10:09 AM EDT Narrative Resulting Agency Comment Spec In Lab Louis De La O MD BLOOD BANK LAB ORDE RABLES Performing Organization Address City/[facility]/ZIP Co de Phone Number [facility] [place] [address] * (ABNORMAL) Differential, Automated (12/21/2018 10:08 AM EDT) Neutrophils % 72.3 % [facility] Neutr Abs (ANC) 6.11(H) 1.70 - 6.10 x10(3)/mc L [facility] Lymphocytes % 14.1 % [facility] Lymphocytes Abs 1.2 0.9 - 3.2 x10(3)/mc L [facility] Monocytes % 11.2 % [facility] Monocyte Abs 1.0(H) 0.3 - 0.9 x10(3)/mc L [facility] Eosinophils % 1.4 % [facility] Eosinophils Abs 0.1 0.0 - 0.4 x10(3)/mc L [facility] Basophils % 0.8 % [facility] Basophils Abs 0.1 0.0 - 0.1 x10(3)/mc L [facility] Immature Gran % 0.20 % [facility] Comment: Immature granulocytes(IG's)percentage and absolute count will include metamyelocytes, myelocytes, and promyelocytes. Blood smears from CBCs yielding IG's will be scanned manually for concordance. If this scan disagrees with the automated IG or if promyelocytes are noted, a manual differential will be performed. Alicia Gran Abs 0.02 0.00 - 0.04 x10(3)/mc L [facility] Blood specimen (specimen) 12/21/2018 10:08 AM EDT 12/21/2018 10:15 AM EDT Narrative Resulting Agency Comment Spec In Lab Louis De La O MD HEMATOLOGY ORDERABL ES [facility] [place] [address] * (ABNORMAL) Hemogram (12/21/2018 10:08 AM EDT) WBC 8.5 4.0 - 9.5 x10(3)/[facility] RBC 5.34 4.58 - 5.54 x10(6)/[facility] Hemoglobin 15.9 13.7 - 16.5 gm/dL [facility] Hematocrit 48.4 40.5 - 48.5 % [facility] MCV 90.6 82.9 - 93.1 fL [facility] MCH 29.8 27.5 - 32.1 pg [facility] MCHC 32.9 32.0 - 35.7 gm/dL [facility] Platelets 315 145 - 357 x10(3)/[facility] RDWSD 45.9(H) 36.0 - 45.0 fL [facility] RDWCV 13.6 11.4 - 13.8 % [facility] MPV 9.1 7.6 - 12.9 fL [facility] nRBC % Auto 0.0 % [facility] nRBC Abs Auto 0.000 0.000 - 0.000 x10(3)/mcL [facility] Blood specimen (specimen) 12/21/2018 10:08 AM EDT 12/21/2018 10:15 AM EDT Narrative Resulting Agency Comment Spec In Lab Louis De La O MD HEMATOLOGY ORDERABL ES Performing Organization Address City/[facility]/ZIP Co de Phone Number [facility] [place] [address] * Antibody screen (12/21/2018 10:08 AM EDT) Ab Screen Interp Negative [facility] Expires at [id number] on: 12/26/2018 [facility] Blood specimen (specimen) 12/21/2018 10:08 AM EDT 12/21/2018 10:09 AM EDT Narrative Resulting Agency Comment Spec In Lab Louis De La O MD BLOOD BANK LAB ORDDarnell MCWILLIAMSROXANA Performing Organization Address [facility]/ZIP Co de Phone Number [facility] [place] [address] * ABO/Rh Typing (12/21/2018 10:08 AM EDT) ABORH Type A Pos [facility] Blood specimen (specimen) 12/21/2018 10:08 AM EDT 12/21/2018 10:09 AM EDT Narrative Resulting Agency Comment Spec In Lab Louis De La O MD BLOOD BANK LAB ORDDarnell BRANDT Performing Organization Address City/[facility]/ZIP Co de Phone Number [facility] [place] [address] * (ABNORMAL) Basic Metabolic Panel (non-fasting) (12/21/2018 10:08 AM EDT) Glucose Lvl 138 65 - 199 mg/dL [facility] Comment:Diabetes: >=200 mg/d L plus symptoms BUN 25(H) 10 - 20 mg/dL [facility] Creatinine 1.33 0.80 - 1.50 mg/dL [facility] Sodium 138 135 - 145 mmol/L [facility] Potassium 4.6 3.5 - 5.0 mmol/L [facility] Comment: Please note: ??Patients with WBC >100,000 may have falsely elevated Potassium levels. ??For accurate Potassium quantification in these patients send serum separator tube (gold top) for subsequent determinations. ??Contact the Clinical Chemistry Laboratory if there are any questions. Chloride 101 98 - 107 mmol/L [facility] CO2 25 22 - 31 mmol/L [facility] Anion Gap 12 5 - 15 mmol/L [facility] Calcium 9.5 8.5 - 10.5 mg/dL [facility] Estimated GFR 55(L) >=60 mL/min/1. 73 m?? [facility] Comment: The eGFR was calculated using the CKD-EPI equation. As with all creatinine based estimates of kidney function, eGFR values calculated with the CKD-EPI equation are not accurate in patients with acute kidney failure, extremes of body mass or the acutely ill. [email or web address] eGFR 64 >=60 mL/min/1. 73 m?? [facility] Comment: The eGFR was calculated using the CKD-EPI equation. As with all creatinine based estimates of kidney function, eGFR values calculated with the CKD-EPI equation are not accurate in patients with acute kidney failure, extremes of body mass or the acutely ill. [email or web address] Blood specimen (specimen) 12/21/2018 10:08 AM EDT 12/21/2018 10:15 AM EDT Narrative Resulting Agency Comment Spec In Lab Louis De La O MD [place] [address] documented in this encounter Visit Diagnoses Diagnosis Coronary artery disease of [place] heart with stable angina pectoris, unspecified vessel or lesion type documented in this encounter Care Teams Ent Physician Relationship Specialty Start Date End Date Antonella Lucas PA [address] [place] [address] PCP - General Family Medicine 05/06/17 11/01/19 documented as of this encounter
--- OUTSIDE RECORDS SUMMARY | 2023-10-15 19:00 | XMS_ITS | Encounter Summary ---
Author Organization [facility] [place] [address] Care Team Providers Care Pipe And Test Supervisor Name Role Phone Antonella Lucas Primary Care Provider [phone]- [phone] Encounter Details Date Type Department Care Team (Late st Contact Info) Description 12/08/2018 10:00 AM EDT - 12/08/2018 11:00 AM EDT [place] [address] Irwin Fischer MD [facility] [place] [address] [place] [address] CARDIAC CATHETERIZATION Social History Tobacco Use Types Packs/Day Years Used Date Smoking Tobacco: Every Day Cigarettes Smokeless Tobacco: Never Alcohol Use Standard Drinks/Week Comments Yes 3 (1 standard drink = 0.6 oz pur e alcohol) 3-4 beers/night per pt Sex and Gender Information Value Date Recorded Sex Assigned at Not on file Gender Identity Not on file Sexual Orientation Not on file documented as of this encounter Last Filed Vital Signs Vital Sign Reading Time Taken Comments Blood Pressure 145/85 12/08/2018 10:11 AM EDT Pulse 70 12/08/2018 10:11 AM EDT Temperature 36.6 ??C (97.9 ??F) 12/08/2018 1 0:11 AM EDT Respiratory Rate 18 12/08/2018 10:1 1 AM EDT Oxygen Saturation 99% 12/08/2018 10: 11 AM EDT Inhaled Oxygen Concentration - - Weight 113.1 kg (249 lb 6.4 oz) 019 10:11 AM EDT Height 188 cm (6' 2) 12/08/2018 10:11 AM EDT Body Mass Index 32.02 12/08/2018 10:11 AM EDT documented in this encounter Discharge Instructions * Discharge Instructions* Saadia Gar RN - 12/08/2018 5:23 PM EDT Activity If you are discharged the same day as your procedure, do not drive yourself home. Arrange to have another person drive. You may walk around when you get home, but keep your activity at a minimum until the morning. Do not bend over, strain, or lift heavy objects for 24 hours after the procedure. Do not participate in active sports for 48 hours. You may engage in sexual activity after 48 hours. These restrictions will not apply if the catheter was placed in a blood vessel in your arm. Catheter Insertion Area Care Take the band-aid off the catheter insertion area the morning following the procedure. You may takea shower if you wish. Wash the area with soap and water. Look for signs of infection over the next several days. A little spot of blood at the catheter insertion area is not unusual. A bruise or small lump under the skin is normal; they generally disappear in 3-4 days. For the first several days at home if you cough or sneeze, hold your groin to help prevent bleeding. Expect some mild tenderness over the area where the catheter was inserted. You will notice this after the local anesthetic (numbing medicine) wears off. This should improve during the 24-48 hours after the procedure. Take tylenol if needed. Contact your doctor if the discomfort worsens. Problems to Watch For If there is bright red blood flowing from the catheter insertion area: *stop what you are doing and lie down *Hold pressure steadily on the area for 15 minutes *Call for Help *If the bleeding does not stop in 15 minutes call 911 for an ambulance. If there is swelling with black and blue color at the catheter insertion area, there may be bleeding inside. Contact the doctor if there is any increase in size. Look at the insertion site for the first few days at home. Signs of infection are: *redness *Swelling *Yellow, white, green or brown foul smelling drainage. *increased soreness If you think there is an infection, take your temperature. Then call your doctor. The limb on the side where you had your catheterization should look and feel normal in its color, sensation, and temperature. If your leg becomes cool, pale, blue or changing color with numbness and tingling, contact your doctor. If you feel faint or dizzy, lie down with your feet elevated. Have someone call the doctor. If you are alert, drink fluids. How to Deal with Chest pain If you had only the cardiac catheterization, treat any angina or chest discomfort as instructed. Stop what you are doing, and sit or lie down. If prescribed, take nitroglycerin under your tongue. If the angina isn't relieved, take another nitroglycerine in 5 minutes. After another 5 minutes, a third nitroglycerine may be taken. If the angina isn't improved you should call for an ambulance to bring you to the nearest hospital emergency room. If your angina is more frequent or more sever than before, contact your doctor. We usually would not expect to have angina after an angioplasty. If you do get angina, treat it as you did before but also contact your doctor. Return to Work The doctor will usually have told you when to return to work. If you do not perform heavy physical labor, most people can return to work in a few days. Diet Follow your previous diet unless otherwise instructed. Cardiac Risk Factors If you have coronary artery disease, it is important that you help control it by reducing your cardiac risk factors. If you smoke, we urge you to stop now. If you think this is going to be a problem,let us know so that we may help you. We have dieticians who can help you learn about low fat, low cholesterol diet. Cardiac rehabilitation programs can help you set up a regular exercise program. Work with your doctor if you have high blood pressure or sugar diabetes to keep these under control. Medications ____Take your usual medications ____Medication changes: If you are taking medicines prescribed by your doctor, do not take any [id number] medicines or herbal preparations without first discussing this with your doctor or pharmacist. There is the possibility of side effect and interactions when these are combined. Follow up Care Who to Call with Questions or Problems If there are any questions or problems that you think might be related to your cardiac cath or angioplasty, contact the fleet technician manager of selection and assessment by calling [facility] at . documented in this encounter Medications at Time of Discharge Medication Sig Dispensed Refills Start Date End Date glipiZIDE (GLUCOTROL XL) 5 mg Tablet Extended [...] MG = 1 Tablet(s), PO, PRN 03/18/2010 metoprolol succinate (TOPROL-XL) 100 mg Tablet Sustained Release 24 hr Take 100 mg by mouth 2 times daily. 12/27/2018 lisinopril (PRINIVIL;ZESTRIL) 2.5 mg Tablet Take 2.5 mg by mouth daily. 12/27/2018 aspirin 325 mg tablet 325 MG = 1 Tablet(s), PO, Once daily 03/18/2010 12/27/2018 documented as of this encounter Progress Notes * Sakina Laurent RN - 12/08/2018 10:23 AM EDT Images from the original note were not included. Skin: documented in this encounter H&P Notes * Willam Evans - 12/08/2018 10:51 AM EDT Images from the original note were not included. Patient Name: Bear Gamboa Patient Age: 68 y.o. Birthdate: 1950 Admit date: 12/08/2018 Attending Physician: Irwin Fischer MD Pre Cardiac Catheterization Note Mr. Gamboa is a 67 year old man with a history of CAD (inferior IA 2009 s/p CK x2 to mid RCA and75% lesion in diag with negative MPI), active smoking, DM, HTN. Referred for cardiac catheterization after a positive stress MPI. Stress MPI 12/02/2018: Large fixed inferior perfusion defect, partially reversible anterolateral perfusion defect and partially reverse anteroseptal perfusion defect. There were inferior and anterolateral wall motion abnormalities. EKG: Sinus bradycardia with inferior q waves LVEF: 65% Creatinine 1.56 (11/30) No planned upcoming surgeries. No recent or ongoing bleeding events. No black stools. BP 145/85 (BP Location (NBP): Right arm) Pulse 70 Temp 36.6 ??C (97.9 ??F) (Oral) Resp 18 Ht 188 cm (6' 2) Wt 113.1 kg (249 lb 6.4 oz) SpO2 99% BMI 32.02 kg/m?? Gen: AOx3, no acute distress HEENT: PERRL, EOMI, MMM Cardiac: RRR, II/ systolic murmur at RUSB Pulm: Decreased breath sounds at the bases Abd: soft, nontender LE: No significant LE edema ASA: 2: Patient with mild systemic disease Mallampati: III: only the base of the uvula can be seen Last 3 wbc, hgb, hct plt No results for input(s): WBC, HGB, HCT, PLATELET in the last 7068 hours. Last 3 Lytes No results for input(s): NA, K, CL, CO2, BUN, CREATININE in the last 7068 hours. Previous Catheterization: Occluded RCA and 75% Diagonal lesion per chart. The indications, expected benefits, and potential risks of heart catheterization were reviewed in detail with the patient. The potential for , heart attack, stroke, kidney failure, hemorrhage, allergic reaction, vascular complications and infection were reviewed in detail. The possibility of stenting and other percutaneous intervention, with associated risk, was reviewed. The possible need for emergent coronary artery bypass surgery was reviewed. Alternatives were discussed and the patient's questions were answered in full. Following this discussion, the patient consented to the procedure and signed a form attesting to this, which is in the chart. Willam Evans MD [employer] [facility] PGY-4 12/08/2018 documented in this encounter Miscellaneous Notes * Brief Op Note - Irwin Fischer MD - 12/08/2018 3:48 PM EDT Brief Operative Note Patient Name: Bear Gamboa : [id number] MR#: [id number] Case Date: 12/08/2018 Surgeon: Surgeon(s) and Role: * Irwin Fischer MD - Primary * Orville Blair MD - Fellow Preoperative diagnosis: ASCVD (arteriosclerotic cardiovascular disease) [I25.10] Postoperative diagnosis: ASCVD (arteriosclerotic cardiovascular disease) [I25.10] Procedure(s) (LRB): CARDIAC CATHETERIZATION (N/A) CORONARY ANGIOGRAPHY; W LHC,POSSIBLE PCI (N/A) Findings: LM - Mild diffuse disease; 50% proximal stenosis in the Ramus Intermedius LAD - 100% mid-vessel SHOTBLAST OPERATOR; 50% ostial D2 stenosis; distal vessel receives L->L collaterals from a Ramus Intermedius LCX - Diminutive non-dominant vessel with moderate diffuse disease RCA - Dominant vessel; large territory of aneurysmal dilatation with small segments of dissection in the mid-vessel; 100% occlusion in the mid-vessel; distal vessel filled via L->R collaterals LVEDP ~6 mmHg; no significant gradient across the aortic valve Findings discussed with Dr. Wan Jones, who will see the patient in formal CT surgery consultation for consideration of multivessel bypass surgery. Complications: None documented in this encounter Plan of Treatment Not on file documented as of this encounter Procedures Procedure Name Priority Date/Time Associated Diagnosis Comments POCT GLUCOSE Routine 12/08/2018 10:34 AM EDT documented in this encounter Results * POCT Glucose (12/08/2018 10:34 AM EDT) POC Glucose 133 65 - 199 mg/dL [facility] Comment: Supplemental ranges: <140 mg/dL before meals <180 mg/dL all other times of the day Blood specimen (specimen) 12/08/2018 10:34 AM EDT 12/08/2018 10:34 AM EDT Irwin Fischer MD POINT OF CARE TEST O RDERABLES [facility] [place] [address] documented in this encounter Visit Diagnoses Diagnosis ASCVD (arteriosclerotic cardiovascular disease) Unspecified cardiovascular disease documented in this encounter Administered Medications Inactive Administered Medications - up to 3 most recent administrations Medication Order MAR Action Action Date Dose Rate Site fentaNYL 50 mcg/mL multi-dose injection ONCE PRN, Starting on Thu12/08/18 at 1434, Until Thu12/08/18 at 1509, Intra-Operative (Intra-Procedure), Routine Given 12/08/2018 2:43 PM EDT 12.5 mcg Given 12/08/2018 2:34 PM EDT 25 mcg heparin (porcine) injection ONCE PRN, Starting on Thu12/08/18 at 1447, Until Thu12/08/18 at 1509, Cath (Intra-Procedure), Routine Given 12/08/2018 2:47 PM EDT 5,000 Units midazolam (PF) (VERSED) multi-dose injection ONCE PRN, Starting on Thu12/08/18 at 1434, Until Thu12/08/18 at 1509, Cath (Intra-Procedure), Routine Given 12/08/2018 2:43 PM EDT 0.5 mg Given 12/08/2018 2:34 PM EDT 1 mg nitroGLYcerin 100 mcg/mL intracoronary dilution ONCE PRN, Starting on Thu12/08/18 at 1450, Until Thu12/08/18 at 1509, Cath (Intra-Procedure), Routine Given 12/08/2018 2:42 PM EDT 200 mcg sodium chloride 0.9% infusion 200 mL/hr, Intravenous, CONTINUOUS, Starting on Thu12/08/18 at 1100, Until Thu12/08/18 at 1748, Cath (Day of Procedure) New Bag 12/08/2018 10:42 AM EDT 200 mL/hr 200 mL/hr sodium chloride 0.9% infusion 150 mL/hr, Intravenous, CONTINUOUS, Starting on Thu12/08/18 at 1545, Until Thu12/08/18 at 1744, Recovery (Recovery-Hospital Unit) Continued Bag 12/08/2018 3:30 PM EDT 150 mL/hr 150 mL/hr verapamil (ISOPTIN) injection ONCE PRN, Starting on Thu12/08/18 at 1448, Until Thu12/08/18 at 1509, Administer over 2 Minutes, Cath (Intra-Procedure) Given 12/08/2018 2:42 PM EDT 2.5 mg documented in this encounter Active and Recently Administered Medications Times are shown in EDT. Continuous Medication Order 12/06/2018 12/07/2018 12/08/2018 sodium chloride 0.9% infusion (CANCELED) 200 mL/hr, Intravenous, CONTINUOUS, Starting on Thu12/08/18 at 1100, Until Thu12/08/18 at 1748, Cath (Day of Procedure) 1042 (New Bag - Prov ider: Sakina Laurent RN) sodium chloride 0.9% infusion 150 mL/hr, Intravenous, CONTINUOUS, Starting on Thu12/08/18 at 1545, Until Thu12/08/18 at 1744, Recovery (Recovery-Hospital Unit) 1530 (Continued Bag - Provider: Bailee Paige RN) PRN Medication Order 12/06/2018 12/07/2018 12/08/2018 fentaNYL 50 mcg/mL multi-dose injection (CANCELED) ONCE PRN, Starting on Thu12/08/18 at 1434, Until Thu12/08/18 at 1509, Intra-Operative (Intra-Procedure), Routine 1434 (Given - Provid er: Anthony Jaime RN)1443 (Given - Provider: Bridget Mukherjee RN) heparin (porcine) injection (CANCELED) ONCE PRN, Starting on Thu12/08/18 at 1447, Until Thu12/08/18 at 1509, Cath (Intra-Procedure), Routine 1447 (Given - Provid er: Anthony Jaime RN) midazolam (PF) (VERSED) multi-dose injection (CANCELED) ONCE PRN, Starting on Thu12/08/18 at 1434, Until Thu12/08/18 at 1509, Cath (Intra-Procedure), Routine 1434 (Given - Provid er: Anthony H Yeni, RN)1443 (Given - Provider: Bridget Mukherjee, MARTIN) nitroGLYcerin 100 mcg/mL intracoronary dilution (CANCELED) ONCE PRN, Starting on Thu12/08/18 at 1450, Until Thu12/08/18 at 1509, Cath (Intra-Procedure), Routine 1442 (Given - Provid er: Irwin Fischer MD - Comment: RRA) verapamil (ISOPTIN) injection (CANCELED) ONCE PRN, Starting on Thu12/08/18 at 1448, Until Thu12/08/18 at 1509, Administer over 2 Minutes, Cath (Intra-Procedure) 1442 (Given - Provid er: Irwin Fischer MD - Comment: RRA cannulation) documented in this encounter Care Teams Pipe And Test Supervisor Relationship Specialty Start Date End Date Antonella Lucas PA [address] [place] [address] PCP - General Family Medicine 05/06/17 11/01/19 documented as of this encounter
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
--- OUTSIDE RECORDS SUMMARY | 2023-10-15 19:00 | XMS_ITS | Encounter Summary ---
Author Organization [facility] [place] [address] Care Team Providers Care Account Installer Name Role Phone Cleosteffi Cathiedayna Luly ARRIAGA Primary Care Provider +1- [phone] Encounter Details Date Type Department Care Team (Late st Contact Info) Description 09/07/2018 12:00 PM EDT Ancillary [place] [address] Celine Finley MD [facility] [address] Social History Tobacco Use Types Packs/Day Years [...] Procedure Name Priority Date/Time Associated Diagnosis Comments FILM LIBRARY STORAGE ONLY DX SHOULDER Routine 09/07/2018 11:54 AM EDT documented in this encounter Results * Film Library- Storage Only DX Shoulder (09/07/2018 11:54 AM EDT) Narrative [facility] - 09/07/2018 11:54 AM EDT This exam is auto-finalizing. It's purpose is for storage only. Celine Finley MD IMG FILM LIBRARY ORD ERABLES [facility] RAD [place], [place] documented in this encounter Visit Diagnoses Not on filedocumented in this encounter Care Teams Account Installer Relationship Specialty Start Date End Date Antonella Lucas PA [address] [place] [address] PCP - General Family Medicine 05/06/17 11/01/19 documented as of this encounter
--- OUTSIDE RECORDS SUMMARY | 2023-10-15 19:00 | XMS_ITS | Encounter Summary ---
Author Organization [facility] [place] [address] Care Team Providers Care Automatic Edger Name Role Phone Cleosteffi Cathiekvngann marie ARRIAGA Primary Care Provider +1- [phone] Encounter Details Date Type Department Care Team (Late st Contact Info) Description 09/07/2018 11:10 AM EDT Ancillary Procedure [place] [address] Celine Finley MD [facility] [place] [address] Social History Tobacco Use Types Packs/Day Years [...] Associated Diagnosis Comments FILM LIBRARY STORAGE ONLY CT HEAD AND SPINE Routine 09/07/2018 11:08 AM EDT documented in this encounter Results * Film Library- Storage Only CT Head And Spine (09/07/2018 11:08 AM EDT) Narrative [facility] - 09/07/2018 11:08 AM EDT This exam is auto-finalizing. It's purpose is for storage only. Celine Finley MD IMG FILM LIBRARY ORD ERABLES DH RAD [place], [place] documented in this encounter Visit Diagnoses Not on filedocumented in this encounter Care Teams Automatic Edger Relationship Specialty Start Date End Date Antonella Lucas PA [address] [place] [address] PCP - General Family Medicine 05/06/17 11/01/19 documented as of this encounter
--- OUTSIDE RECORDS SUMMARY | 2023-10-15 19:00 | XMS_ITS | Encounter Summary ---
Author Organization [facility] Address [facility] [place] [address] Care Team Providers Care Hand Ii Tube Bender Name Role Phone Antonella Lucas Primary Care Provider +1- [phone] Reason for Visit * Auth/Cert Specialty Diagnoses / Procedures Referred By Contadelso t Referred To Contact Diagnoses CAD (coronary artery disease) cad Procedures PRO CABG, ARTERIAL, SINGLE PRO CABG, ARTERY-VEIN, TWO PRO ENDOSCOPY W/VIDEO-ASST VEIN HARVEST, CABG @CABG, USING ARTERIAL GRAFT;SINGLE ARTERIAL GRAFT (WRVU 33.75) @CABG, TWO VENOUS GRAFTS & ARTERIAL GRAFT (WRVU 7.93) ENDOSCOPIC HARVEST VEIN(S) FOR CABG (WRVU 0.31) Referral ID Status Reason Start Date Expiration Date Visits Re quested Visits Authorized [id number] 1 1 Encounter Details Date Type Department Care Team ([facility] Contact Info) Description 12/21/2018 9:40 AM EDT Clinical [place] [id number] Social History Tobacco Use Types Packs/Day Years [...] as of this encounter Progress Notes * Sagrario Drummond RN - 12/21/2018 9:40 AM EDT PAT questionnaire reviewed with patient while in Pre Admission testing. Pre-operative instruction booklet reviewed with patient. Reviewed importance of pain control and cough and deep breathing exercise during the post-operative period. Instructed patient on use of Hibiclens soap to shower with the night before surgery or the morning of surgery. Pt verbalizes good understanding of all information reviewed. PLAN Testing: Labs, T&S, CXR Special medication instructions: Procedure date: Not yet booked but patient expects 12-23-[address] Martínez * Sagrario Drummond RN - 12/21/2018 9:40 AM EDT documented in this encounter Plan of Treatment Not on file documented as of this encounter Visit Diagnoses Not on filedocumented in this encounter Care Teams Hand Ii Tube Bender Relationship Specialty Start Date End Date Antonella Lucas PA [address] [place] [address] PCP - General Family Medicine 05/06/17 11/01/19 documented as of this encounter
--- OUTSIDE RECORDS SUMMARY | 2023-10-15 19:00 | XMS_ITS | Encounter Summary ---
Author Organization [facility] [place] [address] Care Team Providers Care Incubator Operator Name Role Phone Antonella Lucas Primary Care Provider +1- [phone] Encounter Details Date Type Department Care Team (Late st Contact Info) Description 12/21/2018 Orders Only Cardiology at [address] [address] Shavon Dorman, RN ASCVD (arteriosclerotic cardiovascular disease) [...] Procedure Name Priority Date/Time Associated Diagnosis Comments TRANSESOPHAGEAL ECHOCARDIOGRAM (DELISA) Routine 12/24/2018 documented in this encounter Results * Transesophageal Echocardiogram (DELISA) (12/24/2018) Anatomical Region Laterality Modality Other 12/24/2018 Narrative 12/24/2018 3:22 PM EDT Procedure: ?Transesophageal Echocardiogram Patient: ?POLO Adames ? (Age): 1950(68y) Med Rec#: ? [id number] ?Sex: ?M ? Site Loc: ? Ht / Wt: ??(cm)/ (kg) ? Pt. Loc: ? Study Date: ?? 12/23/2018 ?Pt. Type: Tape: ? Reading: Vira Bañuelos ([id number]) Gas Refrigerator Servicer: SOLOMON Diagnosis: SUMMARY: 1. Intraoperative DELISA performed at the request of Dr. De La O for the diagnosis and evaluation of hemodynamics, overall cardiac function, and valvular pathologies as indicated. DELISA probe was passed atraumatically after induction and removed in a similar fashion before emergence. 2. Pre-Bypass: LV is hypertrophied, normal function, no wall motion abnormalities. LA is dilated. RV function is normal. There is a lipomatous interatrial septum; no PFO by color doppler. No hemodynamically significant valvular disease is present. 3. Post-Bypass: Global LV function is improved. LVEF is hyperdynamic. RV function is marginally worsened. There is now mild MR. There is no evidence of aortic dissection post decannulation. Remainder of the exam is unchanged from prior. Findings ? : Study Quality: ? Adequate Left Ventricle: ? Left ventricular chamber size, wall thickness, global and segmental systolic function are within normal limits. Ejection fraction is estimated to be ( )%. ?The left ventricular chamber size is normal. ?Moderate concentric left ventricular hypertrophy is observed. ?There is normal global left ventricular systolic function. ?There are no left ventricular segmental wall motion abnormalities. Left Atrium: ? The left atrium is moderately dilated. ?There is no evidence of spontaneous echo contrast. ?The left atrial appendage velocity is normal. ?The inter-atrial septum appears lipomatous. ?There is no evidence of a patent foramen ovale by either color Doppler or agitated saline injection. ?There is no evidence of an inter-atrial septal aneurysm. Right Ventricle: ? Right ventricular chamber size, wall thickness, and systolic function are within normal limits. Right Atrium: ? The right atrium appears normal. ?A prominent eustachian valve is noted in the right atrium. Aortic Valve: ? The aortic valve is tricuspid. ?The aortic valve leaflets are mildly thickened. ?Moderate aortic leaflet calcification is visualized. ?There is no evidence of aortic valve stenosis. ?There is no evidence of aortic regurgitation. Mitral Valve: ? The mitral valve leaflets are mildly thickened. ?There is mitral annular calcification. ?There is no evidence of mitral stenosis. ?There is trace mitral regurgitation present. Tricuspid Valve: ? The tricuspid valve appears normal in structure and function. ?There is trace tricuspid regurgitation present. Pulmonic Valve: ? The pulmonic valve appears normal in structure and function. ?There is no pulmonic stenosis present. ?There is no evidence of pulmonic regurgitation. Aorta: ? There is evidence of grade 2 (extensive intimal thickening) atheromatous disease of the ascending aorta. ?There is evidence of grade 3 (atheroma <= 5mm) atheromatous disease of the aortic arch. ?There is evidence of grade 4 (atheroma > 5mm) atheromatous disease of the descending thoracic aorta. Pulmonary Artery: ? The main pulmonary artery appears normal. This report has been electronically signed by: Vira Bañuelos MD ? 12/24/2018 15:21:53 Images reviewed and interpretation verified [facility] Cardiac Ultrasound Laboratory Procedure Note Vira Bañuelos MD - 12/24/2018 Procedure: Transesophageal Echocardiogram Patient: POLO FUENTES(Age): 1950(68y) [facility] Rec#: [id number] Sex: M Site Loc: Ht / Wt: (cm)/ (kg) Pt. Loc: Study Date: 12/23/2018 Pt. Type: Tape: Reading: Vira Bañuelos ([id number]) Gas Refrigerator Servicer: SOLOMON Diagnosis: SUMMARY: 1. Intraoperative DELISA performed at the request of Dr. De La O for the diagnosis and evaluation of hemodynamics, overall cardiac function, and valvular pathologies as indicated. DELISA probe was passed atraumatically after induction and removed in a similar fashion before emergence. 2. Pre-Bypass: LV is hypertrophied, normal function, no wall motion abnormalities. LA is dilated. RV function is normal. There is a lipomatous interatrial septum; no PFO by color doppler. No hemodynamically significant valvular disease is present. 3. Post-Bypass: Global LV function is improved. LVEF is hyperdynamic. RV function is marginally worsened. There is now mild MR. There is no evidence of aortic dissection post decannulation. Remainder of the exam is unchanged from prior. Findings : Study Quality: Adequate Left Ventricle: Left ventricular chamber size, wall thickness, global and segmental systolic function are within normal limits. Ejection fraction is estimated to be ( )%. The left ventricular chamber size is normal. Moderate concentric left ventricular hypertrophy is observed. There is normal global left ventricular systolic function. There are no left ventricular segmental wall motion abnormalities. Left Atrium: The left atrium is moderately dilated. There is no evidence of spontaneous echo contrast. The left atrial appendage velocity is normal. The inter-atrial septum appears lipomatous. There is no evidence of a patent foramen ovale by either color Doppler or agitated saline injection. There is no evidence of an inter-atrial septal aneurysm. Right Ventricle: Right ventricular chamber size, wall thickness, and systolic function are within normal limits. Right Atrium: The right atrium appears normal. A prominent eustachian valve is noted in the right atrium. Aortic Valve: The aortic valve is tricuspid. The aortic valve leaflets are mildly thickened. Moderate aortic leaflet calcification is visualized. There is no evidence of aortic valve stenosis. There is no evidence of aortic regurgitation. Mitral Valve: The mitral valve leaflets are mildly thickened. There is mitral annular calcification. There is no evidence of mitral stenosis. There is trace mitral regurgitation present. Tricuspid Valve: The tricuspid valve appears normal in structure and function. There is trace tricuspid regurgitation present. Pulmonic Valve: The pulmonic valve appears normal in structure and function. There is no pulmonic stenosis present. There is no evidence of pulmonic regurgitation. Aorta: There is evidence of grade 2 (extensive intimal thickening) atheromatous disease of the ascending aorta. There is evidence of grade 3 (atheroma <= 5mm) atheromatous disease of the aortic arch. There is evidence of grade 4 (atheroma > 5mm) atheromatous disease of the descending thoracic aorta. Pulmonary Artery: The main pulmonary artery appears normal. This report has been electronically signed by: Vira Bañuelos MD 12/24/2018 15:21:53 Images reviewed and interpretation verified [facility] Cardiac Ultrasound Laboratory Unknown ECHO ORDERABLES documented in this encounter Visit Diagnoses Diagnosis ASCVD (arteriosclerotic cardiovascular disease) Unspecified cardiovascular disease documented in this encounter Care Teams Incubator Operator Relationship Specialty Start Date End Date Antonella Lucas PA [address] [place] [address] PCP - General Family Medicine 05/06/17 11/01/19 documented as of this encounter
--- OUTSIDE RECORDS SUMMARY | 2023-10-15 19:00 | XMS_ITS | Encounter Summary ---
Author Organization [facility] [place] [address] Care Team Providers Care Diver Helper Name Role Phone Antonella Lucas Primary Care Provider +1- [phone] Encounter Details Date Type Department Care Team (Late st Contact Info) Description 12/21/2018 Orders Only Cardiology at [address] [address] Shavon Dorman, RN ASCVD (arteriosclerotic cardiovascular disease) [...] as of this encounter Results * (ABNORMAL) Urinalysis without microscopic (12/23/2018 7:20 AM EDT) Glucose UA Negative Negative mg/dL [facility] Protein UA 30(A) Negative mg/dL [facility] Bilirubin UA Negative Negative mg/dL [facility] Comment: Clinical correlation required for positive Urine Bilirubin results as false positive may occur with some drugs and drug related products. If a false positive is suspected a serum total bilirubin should be considered if clinically indicated. Urobilinogen UA Normal Normal mg/dL [facility] pH UA 6.0 5.0 - 8.0 [facility] Blood UA Negative Negative mg/dL [facility] Ketones UA Negative Negative mg/dL [facility] Nitrite UA Negative Negative [facility] Leukocytes UA Negative Negative mcL [facility] Appearance UA Clear Clear [facility] Spec [place] UA 1.021 1.002 - 1.030 [facility] Color UA Yellow Yellow [facility] Urine specimen (specimen) 12/23/2018 7:20 AM EDT 12/23/2018 8:00 AM EDT Narrative Resulting Agency Comment Spec In Lab Marlo Keith MD URINE ORDERABLES [facility] [place] [address] documented in this encounter Visit Diagnoses Diagnosis ASCVD (arteriosclerotic cardiovascular disease) Unspecified cardiovascular disease documented in this encounter Care Teams Diver Helper Relationship Specialty Start Date End Date Antonella Lucas PA [address] [place] [address] PCP - General Family Medicine 05/06/17 11/01/19 documented as of this encounter
--- OUTSIDE RECORDS SUMMARY | 2023-10-15 19:00 | XMS_ITS | Encounter Summary ---
Author Organization [facility] [place] [address] Care Team Providers Care Manager Air Name Role Phone Cleosteffi Antonella ARRIAGA Primary Care Provider +1- [phone] Encounter Details Date Type Department Care Team (Late st Contact Info) Description 09/07/2018 11:55 AM EDT Ancillary Procedure [place] [address] Celine Finley MD [facility] [place] [address] Social History Tobacco Use Types Packs/Day Years [...] Diagnosis Comments FILM LIBRARY STORAGE ONLY DX LOWER EXTREMITY Routine 09/07/2018 11:54 AM EDT documented in this encounter Results * Film Library- Storage Only DX Lower Extremity (09/07/2018 11:54 AM EDT) Narrative [facility] - 09/07/2018 11:54 AM EDT This exam is auto-finalizing. It's purpose is for storage only. Celine Finley MD IMG FILM LIBRARY ORD ERABLES DH RAD [place] documented in this encounter Visit Diagnoses Not on filedocumented in this encounter Care Teams Manager Air Relationship Specialty Start Date End Date Antonella Lucas PA [address] [place] [address] PCP - General Family Medicine 05/06/17 11/01/19 documented as of this encounter
--- OUTSIDE RECORDS SUMMARY | 2023-10-15 19:00 | XMS_ITS | Encounter Summary ---
Author Organization [facility] [place] [address] Care Team Providers Care Clinical Allergist Name Role Phone Cleomarisamignon Brendanann marie Luly ARRIAGA Primary Care Provider +1- [phone] Encounter Details Date Type Department Care Team (Latest Contact Info) Description 12/21/2018 Unscheduled Encounter Cardiology at [address] [address] Shavon Dorman RN ASCVD (arteriosclerotic cardiovascular disease) [...] Progress Notes * Shavon Dunne RN - 12/21/2018 9:20 AM EDT A RANDOMIZED, DOUBLE-BLIND, PLACEBO CONTROLLED, PHASE 3 STUDY TO EVALUATE THE EFFICACY AND SAFETY OF QPI-1002 FOR THE PREVENTION OF MAJOR ADVERSE KIDNEY EVENTS (MAKE) IN SUBJECTS AT HIGHRISK FOR ACUTE KIDNEY INJURY (DANIELA) FOLLOWING CARDIAC SURGERY STUDY NUMBER: [id number] QPI-1002 Phase 3 for Prevention of MAKE in Subjects at High Risk for DANIELA Following Cardiac Surgery Principle Point Of Sale Associate: Marlo Keith MD, MS I had the pleasure of meeting with Bear Gamboa to review the [id number] trial. Bear Gamboa was accompanied by two friends. Following the determination that this potential participant did not haveany obvious evidence of clinical exclusion to the QRK trial, the subject was provided with a written informed consent version GOL943.2, Approval date and was given adequate time for review of the consent. The purpose, procedures, risk, potential benefits of the study, as well as alternatives to participation were reviewed and questions were answered. The subject denies participation in concurrent interventional drug or device trials. The subject was given the opportunity to discuss the investigational nature of the product with the private investigator surveillance. The subject return verbalizes understanding that participation in research is voluntary. The subject signed the informed consent agreeing to participate, providing all inclusion criteria are satisfied and no exclusion criteria are met.Bear Gamboa understands that final inclusion criteria will be assessed following completion of surgery. They verbalized understanding of the randomization and blinding processes. The subject was provided with a copy of the signed informed consent document. No study related activities were performed prior to completion of the consent process. Opportunity for questions was provided and all questions were answered to the satisfaction of the subject. Contact information for Cardiovascular Clinical Medicine Research was provided. The subject return verbalizes understanding of the protocol defined follow up requirements including daily visits throughout their hospitalization and days 30, 60, 90, and 365. Vitals: BP 135/68, P 63, SPO2 98% RA, Resp 18, Temp 37 Current Outpatient Medications: ??? metoprolol succinate (TOPROL-XL) 100 mg Tablet Sustained Release 24 hr, Take 100 mg by mouth 2 times daily., Disp: , Rfl: ??? glipiZIDE (GLUCOTROL XL) 5 mg Tablet Extended Rel 24 hr, Take 5 mg by mouth daily., Disp: , Rfl: ??? furosemide (LASIX) 20 mg Tablet, Take 20 mg by mouth daily., Disp: , Rfl: ??? lisinopril (PRINIVIL;ZESTRIL) 2.5 mg Tablet, Take 2.5 mg by mouth daily., Disp: , Rfl: [...] Tablet(s), Sublingual, PRN, Disp: , Rfl: ??? aspirin 325 mg tablet, 325 MG = 1 Tablet(s), PO, Once daily, Disp: , Rfl: ??? sildenafil (VIAGRA) 50 mg tablet, 50 MG = 1 Tablet(s), PO, PRN, Disp: , Rfl: documented in this encounter Plan of Treatment Not on file documented as of this encounter Visit Diagnoses Diagnosis ASCVD (arteriosclerotic cardiovascular disease) Unspecified cardiovascular disease documented in this encounter Care Teams Clinical Allergist Relationship Specialty Start Date End Date Antonella Lucas PA [address] [place] [address] PCP - General Family Medicine 05/06/17 11/01/19 documented as of this encounter
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
--- OUTSIDE RECORDS SUMMARY | 2023-10-15 19:00 | XMS_ITS | Encounter Summary ---
Author Organization [facility] Address [facility] [place] [address] Care Team Providers Care Collections Officer Name Role Phone Antonella Lucas Primary Care Provider [phone] Reason for Visit * Auth/Cert Specialty Diagnoses [...] Expiration Date Visits Re quested Visits Authorized [id number] 1 1 Encounter Details Date Type Department Care Team ([facility] Contact Info) Description 12/23/2018 7:30 AM EDT - 12/23/2018 11:16 AM EDT Surgery [place] [address] Louis De La O MD [facility] C[place] [address] @CABG, USING ARTERIAL GRAFT;SINGLE ARTERIAL GRAFT (WRVU 33.75) Social History Tobacco Use Types Packs/Day Years [...] Sign Reading Time Taken Comments Blood Pressure 142/77 12/23/2018 6:28 AM EDT Pulse 75 12/23/2018 11:15 AM EDT Temperature 35.7 ??C (96.3 ??F) 12/23/2018 11:15 AM E DT Respiratory Rate 16 12/23/2018 11:15 AM EDT Oxygen Saturation 98% 12/23/2018 11:15 AM EDT Inhaled Oxygen Concentration - - Weight 112.5 kg (248 lb) 12/23/2018 7:17 AM EDT Height 188 cm (6' 2.02) 12/23/2018 7:17 AM EDT Body Mass Index 32.65 12/23/2018 7:17 AM EDT documented in this encounter Discharge Summaries * Luz Myles PA - 12/27/2018 12:51 PM EDT Inpatient - Discharge Summary Patient Name: Bear Gamboa Patient Age: 68 y.o. Birthdate: 1950 Language: Spanish Race: White Ethnicity: Not nor Admit Date: [...] study as scheduled. Inpatient Provider Contact Information: [facility] Section of Cardiac Surgery [facility] [place] [address] FAX [phone] Discharge Diagnoses (Hospital Problems) Primary Diagnoses: CAD [...] by Louis De La O MD at [facility] MAIN OR ??? PRO CABG, ARTERY-VEIN, SINGLE N/A 12/23/2018 @CABG, VENOUS & ARTERIAL GRAFT;SINGLE VEIN GRAFT (WRVU 3.61) performed by Louis De La O MD at [facility] MAIN OR ??? PRO ENDOSCOPY W/VIDEO-ASST VEIN HARVEST, CABG N/A 12/23/2018 ENDOSCOPIC HARVEST VEIN(S) FOR CABG (WRVU 0.31) performed by Louis De La O MD at [facility] MAIN OR Prior To Admission Medications No [...] s/p CABGx2 Bear Gamboa was admitted to [facility] on 12/23/2018 via the Same Day Program. [...] La O and/or the Cardiac Surgery Physician Manager Cancer Team may be reached at . Weight: [...] Dr. Louis Boston. You may use a [place] Track or treadmill but avoid any pulling [...] friends, go to a movie, go to holiness, etc. Heavy activities: No hunting, skiing, jogging, snow shoveling, snowmobiling, lawn mowing, swimming,golf or tennis until after your return appointment with the surgeon. Do not ride motorcycles, [employer]stractors or horses. Avoid the use of a [...] should resume a low fat, low cholesterol, [place] Heart [employer] Diet/Diabetic diet. Driving: No driving [...] [facility] . The patient agrees to a referral to this program. The referral will be sent at discharge and the patient should be contacted by the Program within 1- 2 weeks from discharge. 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 Other pertinent information: Stat read required?: Does patient require sedation?: GA rationale: Date of injury if applicable: Requested Time: EKG 12 Lead [94466 CPT(R)] 01/27/2019 (Approximate) 07/29/2019 Process Instructions: Scheduling Instructions: Questions: Which DH location will this be performed?: [place] Is a rhythm strip needed?: No XR Chest PA & Lateral (Generic) [98684 93780 Custom] 01/27/2019 (Approximate) 07/29/2019 Process Instructions: Scheduling Instructions: Questions: Where will study be performed?: [facility] Radiology Portable exam?: Reason for exam and clinical history: s/p CABG Other pertinent information: Stat read required?: Date of injury if applicable: Requested Time: Referral to Cardiac Rehab [AUW434 Custom] As directed Process Instructions: If no progress note charted, please enter Clinical details in comments. Scheduling Instructions: Questions: My question or request is: Pt will participate in cardiac rehab@ [facility] Referral to Home Health - at DISCHARGE [MPM3725 CPT(R)] As directed Process Instructions: Scheduling Instructions: Comments: DOCUMENTATION FOR VNA SERVICES (INCLUDING THOSE PATIENTS WITH MEDICARE COVERAGE REQUIRING HOME VNA SERVICES AND/OR HOSPICE SERVICES) PATIENT'S LOCATION: Bear Gamboa [address] [place] [address] [address] [facility] [address] Test Engine Operator's Name: india Pichardo In discussion with the attending physician, it is certified that this patient is under their care and that they, or a Nurse Practitioner, or Physician Manager Cancer who is working directly with them, hada [...] for services as follows: HOME HEALTH AGENCY: [facility]. PHONE: [phone] FAX: [phone] RN orders: Cardiopulmonary assessment, incisional assessment, assess [...] issues please call the Cardiac SurgeryOffice at [phone] FOR MEDICARE ONLY: (please delete this section [...] noted. Questions: Agency name and contact information: [facility] Patient location post discharge: home What services are requested: Registered Nurse Physical Therapy Start date: Responsible MD post discharge contact info: PCP Arrangements for VNA/home care: As above. VN RN OR PCP TO PLEASE REMOVE CHEST TUBE SUTURES ON OR AFTER 01/02/19 Signed: BART James [facility] Section of Cardiac Surgery [facility] [place] [address] FAX [phone] Date: 12/27/2018 CC: BART Miller Anil K, MD [address] [place] [phone] documented in this encounter Discharge Instructions * [...] La O and/or the Cardiac Surgery Physician Manager Cancer Team may be reached at . ?? [...] Dr. Louis Boston. You may use a [place] Track or treadmill but avoid any pulling [...] friends, go to a movie, go to holiness, etc. ?? Heavy activities: No hunting, skiing, [...] should resume a low fat, low cholesterol, [place] Heart Association Diet/Diabetic diet. ?? Driving: No [...] the outpatient Phase 2 Cardiac Rehabilitation at [facility]??Hospital . ?? The patient agrees to a referral to this program.? The referral will be sent at discharge and the patient should be contacted by the Program within 1- 2 weeks from discharge. * Attachments The following attachments cannot be sent through Care Everywhere. * Smoking: Stopping (Spanish) * Smoking Cessation: Health Benefits: General Info (Spanish) documented in this encounter Medications at Time [...] oz) -- Weight Source Standing Scale -- FEO396: Mr. Gamboa is progressing well and is expected to be discharged today. Central labs were drawn and sent to [facility] for processing/shipping. He was asked some [...] 1700 12/23/18 1800 12/23/18 1856 Urethral Catheter 12/23/18 07 Placement Date/Time: 12/23/18699 Perioperative Indication: Surgery longer [...] facility Urine Output (mL) [phone] [id number] study: the above documents Mr. Gamboa's urine output from arrival to [facility] to over 24 hourspost study medication administration. * Shavon Dunne RN - 12/25/2018 8:49 AM EDT 12/25/18 0645 12/25/18 0747 Vital Signs Temp -- 36.9 ??C (98.4 ??F) Temp src -- Oral Heart Rate from SpO2 -- (!) 102 bpm Resp -- 25 BP -- 127/74 MAP (NBP) -- 87 mmHg BP Method -- Automatic Patient Position -- Sitting SpO2 -- 93 % O2 Device -- RA Height and Weight Weight 116.9 kg (257 lb 11.5 oz) -- Weight Source Standing Scale -- DLM504 study: Central labs were drawn and sent to [facility] for processing/shipping. * Shavon Dunne RN [...] of chest tube output as required by MPM722 study. * Aidan Valenzuela PA - 12/24/2018 [...] (L/min) -- 2 L/min O2 Device -- WI Height and Weight Weight 119.7 kg (263 lb 14.3 oz) -- Weight Source Standing Scale -- BP at 0800 was 112/53. Central labs were drawn and sent to [facility] for processing/shipping. * Aidan Valenzuela PA [...] INJURY (DANIELA) FOLLOWING CARDIAC SURGERY STUDY NUMBER: [id number] Phase 3 for Prevention of MAKE in Subjects at High Risk for DANIELA Following Cardiac Surgery Principle Privacy Director: Marlo Keith MD, MS Following informed consent and confirmation that the subject met all inclusion criteria and that noexclusion criteria were met, the subject was randomized via Dariusz GARCIA per protocol. Subject eligibility, hemodynamic stability, and [...] oxyCODONE Central labs: drawn and sent to [facility] for processing/shipping * Shavon Dunne RN - 12/23/2018 8:00 AM EDT 12/23/1811 12/23/18 0717 Vital Signs Temp 36.3 ??C [...] The above represents baseline/Day-1 data for the EJT752 study; data collected in [facility] prior to surgery. Central labs were drawn [...] - Coronary artery disease ? inferior STEMI [facility] 02/23/09: proximal RCA, BRICK DROPPER LAD. BMS to prox. RCA, BMS to [...] None ? Gets together: None ? Attends hindu service: None ? Active member of club [...] [facility] now had a [facility] test [...] - Coronary artery disease ? inferior STEMI [facility] 02/23/09: proximal RCA, BRICK DROPPER LAD. BMS to prox. RCA, BMS to [...] None ? Gets together: None ? Attends hindu service: None ? Active member of club [...] Smyth RN - 12/27/2018 10:50 AM EDT [facility]ILITATION Bear Gamboa was seen today regarding participation in the outpatient [facility] . The patient agrees to a referral [...] by Louis De La O MD at [facility] MAIN OR ??? PRO CABG, ARTERY-VEIN, SINGLE N/A 12/23/2018 @CABG, VENOUS & ARTERIAL GRAFT;SINGLE VEIN GRAFT (WRVU 3.61) performed by Louis De La O MD at [facility] MAIN OR ??? PRO ENDOSCOPY W/VIDEO-ASST VEIN HARVEST, CABG N/A 12/23/2018 ENDOSCOPIC HARVEST VEIN(S) FOR CABG (WRVU 0.31) performed by Louis De La O MD at [facility] MAIN OR Social History: Home set-up: lives [...] outlinedin this evaluation. Time IN / OUT: 1860-7224 Total Evaluation Minutes, Physical Therapy: 15(eval) Jazmin Aleman PT, DPT Pager: [phone] Physical Therapy Inpatient Rehabilitation Department * Plan [...] Ongoing (Interventions Implemented as Appropriate) 12/24/18 1933 12/25/18 0800 12/25/18 1459 Ortega Fall Risk History of Falling [...] Outcome: Ongoing (Interventions Implemented as Appropriate) 12/24/18193212/25/18 0800 Safety Interventions Isolation Precautions standard precautions maintained [...] CPG). Outcome: Ongoing (Interventions Implemented as Appropriate) 12/24/181932 Cardiac Surgery Problems Assessed (Cardiac Surgery) all [...] Patient Care Overview Goal: Individualization & Mutuality 12/23/18 1714 Individualization Patient Specific Preferences call Bear Problem: Cardiac Surgery (Adult) Goal: Signs and Symptoms of Listed Potential Problems Will be Absent, Minimized or Managed (CardiacSurgery) Signs and symptoms of listed potential problems will be absent, minimized or managed by discharge/transition of care (reference Cardiac Surgery (Adult) CPG). Outcome: Ongoing (Interventions Implemented as Appropriate) 12/23/18 1714 Cardiac Surgery Problems Assessed (Cardiac Surgery) all [...] Office of Care Management Initial Assessment Jazmin Jose, RN reviewed record and discussed patient with [...] Hospitalizations Within the Past 30 Days: no [facility] admits in last 30 days. Anticipated Length Of Stay (If known): 5-7 days Current Decision-Making Capacity: Patient is A&Ox4 and able to make all medical decisions Advance Care Planning: Full Code Not in EPIC. Would like to complete during this hospitalization, MEDICAL CHEMIST notified Current Coping/Education/Information Needs: Current coping questions and concerns have been addressed. Current Functional Ability: assist of staff Functional Status Prior to Admission: independent with ADLs, driving, works part-time. Home Environment: lives in 3 level house, stays mainly on 1st level.Has bedroom and bathroom on first level. 3 steps to enter no railings [address] [facility] [address] Social & Family Supports/Community Resources: lives alone. Madhuri Pichardo will be staying with patient post discharge to provide support at home. She is available during the day. Had 2 sisters Candace and Loly. Extended Emergency Contact Information Primary Emergency Contact: Candace Nguyen Mobile Relation: Sibling Secondary Emergency Contact: Loly Walter Mobile Relation: Sibling Health/Prescription Coverage: Primary Insurance: MEDICARE Secondary Insurance: N/AMedicaid [place] Prescription Coverage: Yes Preferred Pharmacy: [facility] - [place], [place] - [address] AT Portal to Registered [facility] Sites [address] [facility] [address] [id number] [place], [place] [address] [facility] [facility] [address] [facility] [address] [address] [facility] [address] Other: none Primary Care Provider: BART Miller [phone] Patient/Caregiver Goals of Treatment: return to previous level of function Potential Needs for Transition of Care: Discussed with patient and family levels of rehab includingSNF, swing, acute and VNA home health and hospice care also discussed. Discussed need to accept first bed available when patient is medically ready. Rehab/SNF: TBD Home Health: [facility] pended for RN/PT DME: tbd Transportation: car by india Pichardo Other: none Anticipated Barriers to Discharge/Special Considerations: none vs anticipated barriers to arise as hospitalization continues. Assessment: patient is admitted to CT service for CABG, final discharge disposition tbd by hospitalcourse and PT evaluation, VNA referral pended for RN/PT. 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 A letter describing our affiliations was reviewed with them and they were educated about their right to choose where referrals are placed. Patient requests referral to [facility] [employer]. PHONE: [phone] FAX: [phone] Expected date of discharge: TBD Referral routed to the Ordnance Engineer for matching with agency/vendor and to provide any required information. Plan: A member of the Care Management team will continue to monitor progress, follow for continuityof care and assist with transition of care planning. Jazmin Jose, RN Nurse Manager [employer] Pager [phone] * OR Attestation - Louis De La O MD - 12/23/2018 2:03 PM EDT Attestation: Case Date: 12/23/2018 I performed this procedure without the involvement of a resident. Louis De La O MD 12/28/2018 * Op Note - Louis De La O MD - 12/23/2018 2:03 PM EDT 12/28/2018 Bear Gamboa 1950 [id number] Preoperative Diagnosis: Coronary artery disease Stable Angina [...] the medial aspect of the knee. The [employer] XB7 system was used to dissect out [...] Operative Note Patient Name: Bear Gamboa : [id number] MR#: [id number] Case Date: 12/23/2018 Surgeon: Surgeon(s) and Role: [...] 4:06 AM EDT SCAN, PERIPHERAL BLOOD Routine 4:05 AM EDT HEMOGRAM Routine 12/24/2018 4:05 [...] 9:46 AM EDT Coronary artery disease of [place] heart with stable angina pectoris, unspecified vessel [...] 12/23/2018 8:15 AM EDT Cabg, Artery-Vein, Single ([id number]) 12/23/2018 7:31 AM EDT Coronary artery disease of [place] heart with stable angina pectoris, unspecified vessel or lesion type Endoscopy W/Video-Asst Vein Bliss, Cabg ([id number]) 12/23/2018 7:31 AM EDT Coronary artery disease of [place] heart with stable angina pectoris, unspecified vessel or lesion type Cabg, Arterial, Single ([id number]) 12/23/2018 7:31 AM EDT Coronary artery disease of [place] heart with stable angina pectoris, unspecified vessel [...] (Bezet) 420 ms MUSE SYSTEM Calculated P [place] 57 degrees MUSE SYSTEM Calculated R [place] 6 degrees MUSE SYSTEM Calculated T [place] 144 degrees MUSE SYSTEM INTERPRETATION Sinus rhythm with Blocked Premature atrial complexes , possible ??Inferior infarct (cited on or before 23-FEB-2009) T wave abnormality, consider anterolateral ischemia Abnormal ECG When compared with ECG of 23-DEC-2018 12:06, Significant changes have occurred Confirmed by Marli Uribe (Enoc) on 01/26/2019 10:13:16 AM MUSE SYSTEM 01/25/2019 [...] De La O MD IMG CT ORDERABLES * XR Chest PA & [...] OF CARE TEST ORDERABLES Performing Organization Address City/State/[facility] Co de Phone Number [facility] [place] [address] * POCT Glucose (12/27/2018 7:37 AM EDT) POC Glucose 163 65 - 199 mg/dL [facility] Comment: Supplemental ranges: <140 mg/dL before meals <180 mg/dL all other times of the day Blood specimen (specimen) 12/27/2018 7:37 AM EDT 12/27/2018 7:37 AM EDT Narrative Authorizing Provider Result Jr De La O MD POINT OF CARE TEST ORDERABLES Performing Organization Address [facility] Co de Phone Number [facility] [place] [address] * Potassium (12/27/2018 4:57 AM EDT) Potassium [...] MD CHEMISTRY ORDERABLE S Performing Organization Address [facility] de Phone Number [facility] [place] [address] * POCT Glucose (12/26/2018 4:44 PM EDT) POC Glucose 170 65 - 199 mg/dL [facility] Comment: Supplemental ranges: <140 mg/dL before meals <180 mg/dL all other times of the day Blood specimen (specimen) 12/26/2018 4:44 PM EDT 12/26/2018 4:44 PM EDT Louis De La O MD POINT OF CARE TEST ORDERABLES Performing Organization Address [facility] Co de Phone Number [facility] [place] [address] * XR Chest PA & Lateral (Generic) (12/26/2018 3:27 PM EDT) Anatomical Region Laterality Modality Chest N/A Digital Radiogra phy Impressions 12/26/2018 5:05 PM EDT Bibasilar atelectasis, and effusions. Cannot exclude consolidation. Thank you for letting us participate in the care of this patient. For questions regarding this report, please contact the number below. ? Narrative 12/26/2018 5:05 PM EDT EXAMINATION: XR [...] this report, please contact the number below. Luois De La O MD IMG DX ORDERABLES [...] OF CARE TEST ORDERABLES Performing Organization Address [facility]/ZIP Co de Phone Number [facility] [place] [address] * POCT Glucose (12/26/2018 8:00 AM EDT) POC Glucose 159 65 - 199 mg/dL [facility] Comment: Supplemental ranges: <140 mg/dL before meals <180 mg/dL all other times of the day Blood specimen (specimen) 12/26/2018 8:00 AM EDT 12/26/2018 8:00 AM EDT Louis De La O MD POINT OF CARE TEST ORDERABLES Performing Organization Address City/[facility]/ZIP Co de Phone Number [facility] [place] [address] * (ABNORMAL) Differential, Automated (12/26/2018 4:52 AM EDT) Neutrophils % 84.5 % [facility] Neutr Abs (ANC) 16.12(H) 1.70 - 6.10 x10(3)/mc L [facility] Lymphocytes % 5.2 % [facility] Lymphocytes Abs 1.0 0.9 - 3.2 x10(3)/ L [facility] Monocytes % 8.8 % [facility] Monocyte Abs 1.7(H) 0.3 - 0.9 x10(3)/ L [facility] Eosinophils % 0.2 % [facility] Eosinophils Abs 0.0 0.0 - 0.4 x10(3)/[facility] LABORATORY Basophils % 0.3 % [facility] Basophils Abs 0.1 0.0 - 0.1 x10(3)/[facility] LABORATORY Immature Gran % 1.00 % NORTH [...] HEMATOLOGY ORDERABLE S [facility] [place] [address] * (ABNORMAL) Hemogram (12/26/2018 4:52 AM EDT) WBC 19.1(H) 4.0 - 9.5 x10(3)/[facility] LABORATORY RBC 4.38(L) 4.58 - 5.54 x10(6)/[facility] LABORATORY Hemoglobin 13.0(L) 13.7 - 16.5 gm/dL [facility] Hematocrit 40.0(L) 40.5 - 48.5 % [facility] MCV 91.3 82.9 - 93.1 fL [facility] MCH 29.7 27.5 - 32.1 pg [facility] MCHC 32.5 32.0 - 35.7 gm/dL [facility] Platelets 171 145 - 357 x10(3)/[facility] LABORATORY RDWSD 46.0(H) 36.0 - 45.0 [facility] LABORATORY RDWCV 13.5 11.4 - 13.8 % [facility] MPV 9.8 7.6 - 12.9 [facility] LAB[facility]ATORY nRBC % Auto 0.0 % [facility] nRBC Abs Auto 0.000 0.000 - 0.000 x10(3)/[facility] LABORATORY Blood specimen (specimen) 12/26/2018 4:52 AM EDT 12/26/2018 5:11 AM EDT Narrative Resulting Agency Comment Spec In Lab Aidan ARRIAGA HEMATOLOGY ORDERABLE S [facility] [place] [address] * (ABNORMAL) Basic Metabolic Panel (non-fasting) (12/26/2018 [...] of body mass or the acutely ill. [email or web address]/[email or web address] eGFR 64 >=60 mL/min/1. 73 m?? [facility] Comment: The eGFR was calculated using the CKD-EPI equation. As with all creatinine based estimates of kidney function, eGFR values calculated with the CKD-EPI equation are not accurate in patients with acute kidney failure, extremes of body mass or the acutely ill. [email or web address]/[facility] Blood specimen (specimen) 12/26/2018 4:52 AM EDT 12/26/2018 5:11 AM EDT Narrative Resulting Agency Comment Spec In Lab Louis De La O MD CHEMISTRY ORDERABLE S Performing Organization Address City/[facility]/ZIP Co de Phone Number [facility] [place] [address] * (ABNORMAL) POCT Glucose (12/25/2018 7:55 PM EDT) POC Glucose 217(H) 65 - 199 mg/dL [facility] Comment: Supplemental ranges: <140 mg/dL before meals <180 mg/dL all other times of the day Blood specimen (specimen) 12/25/2018 7:55 PM EDT 12/25/2018 7:55 PM EDT Louis De La O MD POINT OF CARE TEST ORDERABLES [facility] [place] [address] * POCT Glucose (12/25/2018 3:35 PM EDT) POC Glucose 170 65 - 199 mg/dL [facility] Comment: Supplemental ranges: <140 mg/dL before meals <180 mg/dL all other times of the day Blood specimen (specimen) 12/25/2018 3:35 PM EDT 12/25/2018 3:35 PM EDT Louis De La O MD POINT OF CARE TEST ORDERABLES Performing Organization Address City/[facility] Co de Phone Number [facility] [place] [address] * POCT Glucose (12/25/2018 11:21 AM EDT) POC Glucose 196 65 - 199 mg/dL [facility] Comment: Supplemental ranges: <140 mg/dL before meals <180 mg/dL all other times of the day Blood specimen (specimen) 12/25/2018 11:21 AM EDT 12/25/2018 11:21 AM EDT Louis De La O MD POINT OF CARE TEST ORDERABLES Performing Organization Address [facility] Co de Phone Number [facility] [place] [address] * POCT Glucose (12/25/2018 7:50 AM EDT) POC Glucose 164 65 - 199 mg/dL [facility] Comment: Supplemental ranges: <140 mg/dL before meals <180 mg/dL all other times of the day Blood specimen (specimen) 12/25/2018 7:50 AM EDT 12/25/2018 7:50 AM EDT Louis De La O MD POINT OF CARE TEST ORDERABLES [facility] [place] [address] * Potassium (12/25/2018 5:41 AM EDT) Potassium [...] MD CHEMISTRY ORDERABLE S Performing Organization Address [facility] Co de Phone Number [facility] [place] [address] * POCT Glucose (12/24/2018 7:54 PM EDT) POC Glucose 175 65 - 199 mg/dL [facility] Comment: Supplemental ranges: <140 mg/dL before meals <180 mg/dL all other times of the day Blood specimen (specimen) 12/24/2018 7:54 PM EDT 12/24/2018 7:54 PM EDT Louis De La O MD POINT OF CARE TEST ORDERABLES Performing Organization Address [facility]/ZIP Co de Phone Number [facility] [place] [address] * POCT Glucose (12/24/2018 4:18 PM EDT) POC Glucose 189 65 - 199 mg/dL [facility] Comment: Supplemental ranges: <140 mg/dL before meals <180 mg/dL all other times of the day Blood specimen (specimen) 12/24/2018 4:18 PM EDT 12/24/2018 4:18 PM EDT Louis De La O MD POINT OF CARE TEST ORDERABLES [facility] [place] [address] * POCT Glucose (12/24/2018 2:17 PM EDT) POC Glucose 149 65 - 199 mg/dL [facility] Comment: Supplemental ranges: <140 mg/dL before meals <180 mg/dL all other times of the day Blood specimen (specimen) 12/24/2018 2:17 PM EDT 12/24/2018 2:17 PM EDT Louis De La O MD POINT OF CARE TEST ORDERABLES Performing Organization Address [facility] Co de Phone Number [facility] [place] [address] * POCT Glucose (12/24/2018 12:09 PM EDT) POC Glucose 163 65 - 199 mg/dL [facility] Comment: Supplemental ranges: <140 mg/dL before meals <180 mg/dL all other times of the day Blood specimen (specimen) 12/24/2018 12:09 PM EDT 12/24/2018 12:09 PM EDT Louis De La O MD POINT OF CARE TEST ORDERABLES Performing Organization Address [facility] Co de Phone Number [facility] [place] [address] * POCT Glucose (12/24/2018 10:30 AM EDT) POC Glucose 168 65 - 199 mg/dL [facility] Comment: Supplemental ranges: <140 mg/dL before meals <180 mg/dL all other times of the day Blood specimen (specimen) 12/24/2018 10:30 AM EDT 12/24/2018 10:30 AM EDT Louis De La O MD POINT OF CARE TEST ORDERABLES [facility] [place] [address] * POCT Glucose (12/24/2018 7:45 AM EDT) POC Glucose 141 65 - 199 mg/dL [facility] Comment: Supplemental ranges: <140 mg/dL before meals <180 mg/dL all other times of the day Blood specimen (specimen) 12/24/2018 7:45 AM EDT 12/24/2018 7:45 AM EDT Louis De La O MD POINT OF CARE TEST ORDERABLES [facility] [place] [address] * POCT Glucose (12/24/2018 6:13 AM EDT) POC Glucose 151 65 - 199 mg/dL [facility] Comment: Supplemental ranges: <140 mg/dL before meals <180 mg/dL all other times of the day Blood specimen (specimen) 12/24/2018 6:13 AM EDT 12/24/2018 6:13 AM EDT Louis De La O MD POINT OF CARE TEST ORDERABLES [facility] [place] [address] * POCT Glucose (12/24/2018 4:06 AM EDT) POC Glucose 161 65 - 199 mg/dL [facility] Comment: Supplemental ranges: <140 mg/dL before meals <180 mg/dL all other times of the day Blood specimen (specimen) 12/24/2018 4:06 AM EDT 12/24/2018 4:06 AM EDT Louis De La O MD POINT OF CARE TEST ORDERABLES [facility] [place] [address] * Scan, Peripheral Blood (12/24/2018 4:05 AM EDT) Plat Estimate Normal [facility] RBC Morphology Normal [facility] Blood specimen (specimen) 12/24/2018 4:05 AM EDT 12/24/2018 4:14 AM EDT Narrative Resulting Agency Comment Spec In Lab Aidan ARRIAGA HEMATOLOGY ORDERABLE S [facility] [place] [address] * (ABNORMAL) Differential, Automated (12/24/2018 4:05 AM EDT) Neutrophils % 81.7 % [facility] Neutr Abs (ANC) 11.87(H) 1.70 - 6.10 x10(3)/[facility] Lymphocytes % 6.8 % [facility] Lymphocytes Abs 1.0 0.9 - 3.2 x10(3)/[facility] Monocytes % 10.8 % [facility] Monocyte Abs 1.6(H) 0.3 - 0.9 x10(3)/[facility] Eosinophils % 0.1 % [facility] Eosinophils Abs 0.0 0.0 - 0.4 x10(3)/[facility] Basophils % 0.3 % [facility] Basophils Abs 0.0 0.0 - 0.1 x10(3)/[facility] LABOR[facility] Immature Gran % 0.30 % [facility] Comment: Immature granulocytes(IG's)percentage and absolute count will include metamyelocytes, myelocytes, and promyelocytes. Blood smears from CBCs yielding IG's will be scanned manually for concordance. If this scan disagrees with the automated IG or if promyelocytes are noted, a manual differential will be performed. Alicia Gran Abs 0.05(H) 0.00 - 0.04 x10(3)/ L [facility] Blood specimen (specimen) 12/24/2018 4:05 AM EDT 12/24/2018 4:14 AM EDT Narrative Resulting Agency Comment Spec In Lab Aidan ARRIAGA HEMATOLOGY ORDERABLE S [facility] [place] [address] * (ABNORMAL) Hemogram (12/24/2018 4:05 AM EDT) WBC 14.5(H) 4.0 - 9.5 x10(3)/[facility] LABORATORY RBC 4.58 4.58 - 5.54 x10(6)/[facility]ATORY Hemoglobin 13.6(L) 13.7 - 16.5 gm/dL [facility] Hematocrit 41.0 40.5 - 48.5 % [facility] MCV 89.5 82.9 - 93.1 [facility] MCH 29.7 27.5 - 32.1 pg [facility] MCHC 33.2 32.0 - 35.7 gm/dL [facility] Platelets 164 145 - 357 x10(3)/[facility] LABORATORY RDWSD 45.2(H) 36.0 - 45.0 [facility] RDWCV 13.7 11.4 - 13.8 % [facility] MPV 9.3 7.6 - 12.9 [facility] nRBC % Auto 0.0 % [facility] nRBC Abs Auto 0.000 0.000 - 0.000 x10(3)/[facility] Blood specimen (specimen) 12/24/2018 4:05 AM EDT 12/24/2018 4:14 AM EDT Narrative Resulting Agency Comment Spec In Lab Aidan ARRIAGA HEMATOLOGY ORDERABLE S [facility] [place] [address] * (ABNORMAL) Basic Metabolic Panel (non-fasting) (12/24/2018 [...] of body mass or the acutely ill. [email or web address] eGFR 79 >=60 mL/min/1. 73 m?? [facility] Comment: The eGFR was calculated using the CKD-EPI equation. As with all creatinine based estimates of kidney function, eGFR values calculated with the CKD-EPI equation are not accurate in patients with acute kidney failure, extremes of body mass or the acutely ill. [email or web address] Blood specimen (specimen) 12/24/2018 4:05 AM EDT 12/24/2018 4:14 AM EDT Narrative Resulting Agency Comment Spec In Lab Loius De La O MD CHEMISTRY ORDERABLE S Performing Organization Address [facility]/ZIP Co de Phone Number [facility] [place] [address] * (ABNORMAL) Troponin (12/24/2018 4:05 AM EDT) [facility] Troponin-T 0.17(H) 0.00 - 0.00 ng/mL [facility] Comment: The 99th percentile for Troponin T is less than 0.01 ng/mL, any detectable cTnT concentration using this assay should be considered elevated. According to the third universal definition of myocardial infarction the following criteria with a clinical presentation consistent with acute myocardial ischemia meets the diagnosis for a myocardial infarction (NV). Detection of a rise and/or fall of cTnT, with at least one value greater than the 99th percentile (> or = 0.01) and with at least one of the following ?? Symptoms of ischemia ?? New or presumed new significant IT-[id number]-[id number] wave (ST-T) changes or new left bundle [...] additional sample may be indicated. Reference: Third [place] Definition of Myocardial Infarction. Journal of the [place] [employer] 2012;60:1581-98 Blood specimen (specimen) 12/24/2018 4:05 AM EDT 12/24/2018 4:14 AM EDT Narrative Resulting Agency Comment Spec In Lab Louis De La O MD CHEMISTRY ORDERABLE S Performing Organization Address [facility]/ZIP Co de Phone Number [facility] [place] [address] * POCT Glucose (12/24/2018 3:03 AM EDT) [facility] POC Glucose 143 65 - 199 mg/dL [facility] Comment: Supplemental ranges: <140 mg/dL before meals <180 mg/dL all other times of the day Blood specimen (specimen) 12/24/2018 3:03 AM EDT 12/24/2018 3:03 AM EDT oLuis De La O MD POINT OF CARE TEST ORDERABLES [facility] [place] [address] * POCT Glucose (12/24/2018 2:10 AM EDT) POC Glucose 142 65 - 199 mg/dL [facility] Comment: Supplemental ranges: <140 mg/dL before meals <180 mg/dL all other times of the day Blood specimen (specimen) 12/24/2018 2:10 AM EDT 12/24/2018 2:10 AM EDT Louis De La O MD POINT OF CARE TEST ORDERABLES Performing Organization Address City/[facility]/ZIP Co de Phone Number [facility] [place] [address] * POCT Glucose (12/24/2018 1:01 AM EDT) POC Glucose 115 65 - 199 mg/dL [facility] Comment: Supplemental ranges: <140 mg/dL before meals <180 mg/dL all other times of the day Blood specimen (specimen) 12/24/2018 1:01 AM EDT 12/24/2018 1:01 AM EDT Louis De La O MD POINT OF CARE TEST ORDERABLES Performing Organization Address City/[facility]/ZIP Co de Phone Number [facility] [place] [address] * POCT Glucose (12/24/2018 12:21 AM EDT) POC Glucose 141 65 - 199 mg/dL [facility] Comment: Supplemental ranges: <140 mg/dL before meals <180 mg/dL all other times of the day Blood specimen (specimen) 12/24/2018 12:21 AM EDT 12/24/2018 12:21 AM EDT Louis De La O MD POINT OF CARE TEST ORDERABLES Performing Organization Address City/[facility]/ZIP Co de Phone Number [facility] [place] [address] * POCT Glucose (12/23/2018 9:51 PM EDT) POC Glucose 123 65 - 199 mg/dL [facility] Comment: Supplemental ranges: <140 mg/dL before meals <180 mg/dL all other times of the day Blood specimen (specimen) 12/23/2018 9:51 PM EDT 12/23/2018 9:51 PM EDT Louis De La O MD POINT OF CARE TEST ORDERABLES Performing Organization Address City/[facility]/ZIP Co de Phone Number [facility] [place] [address] * POCT Glucose (12/23/2018 8:53 PM EDT) POC Glucose 127 65 - 199 mg/dL [facility] Comment: Supplemental ranges: <140 mg/dL before meals <180 mg/dL all other times of the day Blood specimen (specimen) 12/23/2018 8:53 PM EDT 12/23/2018 8:53 PM EDT Louis De La O MD POINT OF CARE TEST ORDERABLES Performing Organization Address City/[facility]/ZIP Co de Phone Number [facility] [place] [address] * POCT Glucose (12/23/2018 8:04 PM EDT) POC Glucose 103 65 - 199 mg/dL [facility] Comment: Supplemental ranges: <140 mg/dL before meals <180 mg/dL all other times of the day Blood specimen (specimen) 12/23/2018 8:04 PM EDT 12/23/2018 8:04 PM EDT Louis De La O MD POINT OF CARE TEST ORDERABLES Performing Organization Address City/[facility]/ZIP Co de Phone Number [facility] [place] [address] * POCT Glucose (12/23/2018 6:54 PM EDT) POC Glucose 94 65 - 199 mg/dL [facility] Comment: Supplemental ranges: <140 mg/dL before meals <180 mg/dL all other times of the day Blood specimen (specimen) 12/23/2018 6:54 PM EDT 12/23/2018 6:54 PM EDT Louis De La O MD POINT OF CARE TEST ORDERABLES Performing Organization Address [facility]/ZIP Co de Phone Number [facility] [place] [address] * POCT Glucose (12/23/2018 6:30 PM EDT) POC Glucose 86 65 - 199 mg/dL [facility] Comment: Supplemental ranges: <140 mg/dL before meals <180 mg/dL all other times of the day Blood specimen (specimen) 12/23/2018 6:30 PM EDT 12/23/2018 6:30 PM EDT Louis De La O MD POINT OF CARE TEST ORDERABLES Performing Organization Address City/[facility]/ZIP Co de Phone Number [facility] [place] [address] * POCT Glucose (12/23/2018 5:59 PM EDT) POC Glucose 99 65 - 199 mg/dL [facility] Comment: Supplemental ranges: <140 mg/dL before meals <180 mg/dL all other times of the day Blood specimen (specimen) 12/23/2018 5:59 PM EDT 12/23/2018 5:59 PM EDT Louis De La O MD POINT OF CARE TEST ORDERABLES Performing Organization Address [facility] Co de Phone Number [facility] [place] [address] * POCT Glucose (12/23/2018 5:21 PM EDT) POC Glucose 116 65 - 199 mg/dL [facility] Comment: Supplemental ranges: <140 mg/dL before meals <180 mg/dL all other times of the day Blood specimen (specimen) 12/23/2018 5:21 PM EDT 12/23/2018 5:21 PM EDT Louis De La O MD POINT OF CARE TEST ORDERABLES Performing Organization Address [facility] Co de Phone Number [facility] [place] [address] * POCT Glucose (12/23/2018 4:47 PM EDT) POC Glucose 113 65 - 199 mg/dL [facility] Comment: Supplemental ranges: <140 mg/dL before meals <180 mg/dL all other times of the day Blood specimen (specimen) 12/23/2018 4:47 PM EDT 12/23/2018 4:47 PM EDT Louis De La O MD POINT OF CARE TEST ORDERABLES Performing Organization Address [facility] Co de Phone Number [facility] [place] [address] * POCT Glucose (12/23/2018 4:20 PM EDT) POC Glucose 122 65 - 199 mg/dL [facility] Comment: Supplemental ranges: <140 mg/dL before meals <180 mg/dL all other times of the day Blood specimen (specimen) 12/23/2018 4:20 PM EDT 12/23/2018 4:20 PM EDT Louis De La O MD POINT OF CARE TEST ORDERABLES Performing Organization Address [facility] Co de Phone Number [facility] [place] [address] * Hemoglobin (12/23/2018 3:40 PM EDT) Hemoglobin 13.7 13.7 - 16.5 gm/dL [facility] Blood specimen (specimen) 12/23/2018 3:40 PM EDT 12/23/2018 3:56 PM EDT Narrative Resulting Agency Comment Spec In Lab Louis De La O MD HEMATOLOGY ORDERABL ES Performing Organization Address [facility] Phone Number [facility] [place] [address] * Potassium (12/23/2018 3:40 PM EDT) [facility] Potassium 4.2 3.5 - 5.0 mmol/L NOR[facility] [...] MD CHEMISTRY ORDERABLE S Performing Organization Address [facility] Co de Phone Number [facility] [place] [address] * POCT Glucose (12/23/2018 3:35 PM EDT) POC Glucose 141 65 - 199 mg/dL [facility] Comment: Supplemental ranges: <140 mg/dL before meals <180 mg/dL all other times of the day Blood specimen (specimen) 12/23/2018 3:35 PM EDT 12/23/2018 3:35 PM EDT Louis De La O MD POINT OF CARE TEST ORDERABLES [facility] [place] [address] * (ABNORMAL) BLOOD GAS 2 ARTERIAL (12/23/2018 [facility] COHB Art 0.2 % [facility] Comment: Nonsmokers: 0.5-1.5% COHB Smokers: Variable, but usually less than 10% Toxic: 20-30% COHB Lethal: Greater than 60% COHB METHB Art 0.5 <=1.5 % [facility] Na Whole Blood 134(L) 135 - [...] [facility] FIO2 Art 40 % [facility] PF Ratio Art 285 [facility] Blood specimen (specimen) 12/23/2018 2:39 PM EDT 12/23/2018 2:39 PM EDT Louis De La O MD CHEMISTRY ORDERABLE S Performing Organization Address City/[facility]/ZIP Co de Phone Number [facility] [place] [address] * POCT Glucose (12/23/2018 1:53 PM EDT) Pathologist [facility] POC Glucose 197 65 - 199 mg/dL [facility] Comment: Supplemental ranges: <140 mg/dL before meals <180 mg/dL all other times of the day Blood specimen (specimen) 12/23/2018 1:53 PM EDT 12/23/2018 1:53 PM EDT Louis De La O MD POINT OF CARE TEST ORDERABLES Performing Organization Address [facility] Co de Phone Number [facility] [place] [address] * (ABNORMAL) BLOOD GAS 2 ARTERIAL (12/23/2018 12:43 PM EDT) pH Art 7.36 7.35 - 7.45 [facility] pCO2 Art 34(L) 35 - [...] [facility] COHB Art 1.3 % [facility] Comment: Nonsmokers: 0.5-1.5% COHB Smokers: Variable, but usually less than 10% Toxic: 20-30% COHB Lethal: Greater than 60% COHB METHB Art 0.6 <=1.5 % [facility] Na Whole Blood 134(L) 135 - [...] [facility] FIO2 Art 60 % [facility] PF Ratio Art 257 [facility] Temp Art 35.9 Celsius [facility] Blood specimen (specimen) 12/23/2018 12:43 PM EDT 12/23/2018 12:43 PM EDT Louis De La O MD CHEMISTRY ORDERABLE S [facility] [place] [address] * EKG 12 Lead (12/23/2018 12:06 PM EDT) Ventricular rate 64 BPM MUSE SYSTEM Atrial Rate 78 BPM MUSE SYSTEM P-R Interval 280 ms MUSE SYSTEM QRS Duration 92 ms MUSE SYSTEM Q-T Interval 408 ms MUSE SYSTEM QTC Calculated (Bezet) 420 ms MUSE SYSTEM Calculated P [place] 46 degrees MUSE SYSTEM Calculated R [place] 14 degrees MUSE SYSTEM Calculated T [place] 52 degrees MUSE SYSTEM INTERPRETATION Demand pacemaker; [...] O MD ECG ORDERABLES MUSE SYSTEM * XR Chest One View (12/23/2018 12:01 PM EDT) Anatomical Region Laterality Modality Chest N/A Digital Radiogra phy Impressions 12/23/2018 12:25 PM EDT Satisfactory equipment position. Question tiny left apical pneumothorax. Thank you for letting us participate in the care of this patient. For questions regarding this report, please contact the number below. ? Narrative 12/23/2018 12:25 PM EDT EXAMINATION: XR [...] [facility] COHB Art 1.3 % [facility] Comment: Nonsmokers: 0.5-1.5% COHB Smokers: Variable, but usually less than 10% Toxic: 20-30% COHB Lethal: Greater than 60% COHB METHB Art 0.6 <=1.5 % [facility] Na Whole Blood 132(L) 135 - [...] [facility] FIO2 Art 100 % [facility] PF Ratio Art 102 [facility] Blood specimen (specimen) 12/23/2018 11:47 AM EDT 12/23/2018 11:47 AM EDT Louis De La O MD CHEMISTRY ORDERABLE S Performing Organization Address City/[facility] de Phone Number [facility] [place] [address] * Fibrinogen (12/23/2018 10:30 AM EDT) Fibrinogen 272 200 - 393 mg/dL [facility] Comment: A fibrinogen level >100 mg/dL is adequate for hemostasis in most patients without underlying bleeding disorders. Blood specimen (specimen) 12/23/2018 10:30 AM EDT 12/23/2018 10:32 AM EDT Narrative Resulting Agency Comment Spec In Lab Vira Bañuelos MD HEMATOLOGY ORDERABLE S Performing Organization Address City/[facility] Co de Phone Number [facility] [place] [address] * APTT (12/23/2018 10:30 AM EDT) PTT [...] MD HEMATOLOGY ORDERABLE S Performing Organization Address [facility] de Phone Number [facility] [place] [address] * (ABNORMAL) Prothrombin Time (12/23/2018 10:30 AM EDT) PT 13.7(H) 9.4 - 12.5 sec [facility] Comment:Called by: lts, Read back by: Kevin Hobson [id number], Date/Time:12/23/18 10:47. INR 1.2 [facility] Comment: An INR <2.0 indicates adequate [...] MD HEMATOLOGY ORDERABLE S Performing Organization Address [facility] Co de Phone Number [facility] [place] [address] * (ABNORMAL) Hemogram (12/23/2018 10:30 AM EDT) WBC 16.9(H) 4.0 - 9.5 x10(3)/[facility] LABORATORY RBC 3.80(L) 4.58 - 5.54 x10(6)/[facility] Hemoglobin 11.5(L) 13.7 - 16.5 gm/dL [facility] Hematocrit 34.7(L) 40.5 - 48.5 % [facility] Comment: This result has been called to KEVIN HOBSON by Onelia Ramírez on 12 23 2018 at 1039, and has been read back. MCV 91.3 82.9 - 93.1 [facility] MCH 30.3 27.5 - 32.1 pg [facility] MCHC 33.1 32.0 - 35.7 gm/dL [facility] Platelets 124(L) 145 - 357 x10(3)/[facility] RDWSD 45.1(H) 36.0 - 45.0 [facility] RDWCV 13.3 11.4 - 13.8 % [facility] MPV 9.1 7.6 - 12.9 [facility] nRBC % Auto 0.0 % [facility] nRBC Abs Auto 0.000 0.000 - 0.000 x10(3)/[facility] Blood specimen (specimen) 12/23/2018 10:30 AM EDT 12/23/2018 10:32 AM EDT Narrative Resulting Agency Comment Spec In Lab Vira Bañuleos MD HEMATOLOGY ORDERABLE S [facility] [place] [address] * (ABNORMAL) BLOOD GAS 2 ARTERIAL (12/23/2018 10:26 AM EDT) pH Art 7.37 7.35 - 7.45 [facility] pCO2 Art 36 35 - [...] [facility] COHB Art 1.2 % [facility] Comment: Nonsmokers: 0.5-1.5% COHB Smokers: Variable, but usually less than 10% Toxic: 20-30% COHB Lethal: Greater than 60% COHB METHB Art 0.3 <=1.5 % [facility] Na Whole Blood 128(L) 135 - [...] [facility] FIO2 Art 97 % [facility] Flow Art 2.6 LPM [facility] PF Ratio Art 326 [facility] Temp Art 35.9 Celsius [facility] Blood specimen (specimen) 12/23/2018 10:26 AM EDT 12/23/2018 10:26 AM EDT Louis De La O MD CHEMISTRY ORDERABLE S Performing Organization Address City/[facility]/[place] [address] * Prepare Platelets, Apheresis (12/23/2018 10:25 AM EDT) Dispensed? Yes [facility] Blood specimen (specimen) 12/23/2018 10:25 AM EDT 12/23/2018 10:25 AM EDT Louis De La O MD BLOOD BANK PRODUCT ORDERABLES Performing Organization Address [facility] Co de Phone Number [facility] [place] [address] * (ABNORMAL) BLOOD GAS 2 ARTERIAL (12/23/2018 [...] [facility] COHB Art 1.1 % [facility] Comment: Nonsmokers: 0.5-1.5% COHB Smokers: Variable, but usually less than 10% Toxic: 20-30% COHB Lethal: Greater than 60% COHB METHB Art 0.3 <=1.5 % [facility] Na Whole Blood 129(L) 135 - 145 mmol/L [facility] K Whole Blood 6.2(Critic al) 3.5 - 5.0 mmol/L [facility] Comment: Noted by [employer]. Please note: Patients with WBC >100,000 may have falsely elevated Potassium levels. Contact the Clinical Chemistry Laboratory if there are any questions. ICa Whole Blood 0.92(Criti kyle) 1.15 - 1.33 mmol/L [facility] Comment: Noted by [employer]. Note: ??Total bilirubin higher than 20 mg/dL [...] CHEMISTRY ORDERABLE S [facility] [place] [address] * (ABNORMAL) Platelet count (12/23/2018 9:35 AM EDT) Platelets 103(L) 145 - 357 x10(3)/mc L [facility] Plat Immature % 2.3 0.0 - 7.4 % [facility] Comment: Limitation of the Immature Platelet Fraction (IPF)-May be less reliable when the platelet count is less than 38r878/uL due to statistical imprecision. The IPF value [...] in a decreased state of production. References: [employer] The Clinical Value of the Immature Platelet Fraction (IPF) in Cell Recovery Document Number [id number] 08/2010 [employer] The Role of the Immature Platelet Fraction (IPF) in the Differential Diagnosis of Thrombocytopenia, Document [id number] V007/25/13 P007/27 Blood specimen (specimen) 12/23/2018 9:35 AM EDT 12/23/2018 9:43 AM EDT Narrative Resulting Agency Comment Spec In Lab Louis De La O MD HEMATOLOGY ORDERABL ES Performing Organization Address [facility] Co de Phone Number [facility] [place] [address] * (ABNORMAL) Hemoglobin and Hematocrit, blood (12/23/2018 [...] MD HEMATOLOGY ORDERABL ES Performing Organization Address [facility] Co de Phone Number [facility] [place] [address] * Fibrinogen (12/23/2018 9:35 AM EDT) Fibrinogen 254 200 - 393 mg/dL [facility] Comment: Called by: KEAGAN, Read back by: KEVIN BRUNO_, Date/Time:_12/23/18 10:21. A fibrinogen level >100 mg/dL is adequate for hemostasis in most patients without underlying bleeding disorders. Blood specimen (specimen) 12/23/2018 9:35 AM EDT 12/23/2018 9:43 AM EDT Narrative Resulting Agency Comment Spec In Lab Louis De La O MD HEMATOLOGY ORDERABL ES [facility] [place] [address] * (ABNORMAL) BLOOD GAS 2 VENOUS (12/23/2018 9:11 AM EDT) pH Ru 7.24(Criti kyle) 7.32 - 7.42 [facility] Comment:Noted by mounter brass wind [employer]. pCO2 Ru 55(H) 41 - 51 mmHg [facility] pO2 Ru 56(H) 25 - 40 mmHg [facility] HCO3 Ru 23.0 mmol/L [facility] BE Ru -4.4 mmol/L [facility] Hgb Blood Gas 12.7(L) 13.7 - 16.5 gm/dL [facility] O2HB Ru 84.1 % [facility] COHB Ru 1.3 % [facility] Comment: Nonsmokers: 0.5-1.5% COHB Smokers: Variable, but usually less than 10% Toxic: 20-30% COHB Lethal: Greater than 60% COHB METHB Ru 0.3 <=1.5 % [facility] Na Whole Blood 134(L) 135 - [...] [facility] BGas Source Venous [facility] Blood specimen (specimen) 12/23/2018 9:11 AM EDT 12/23/2018 9:11 AM EDT Louis De La O MD CHEMISTRY ORDERABLE S [facility] [place] [address] * (ABNORMAL) BLOOD GAS 2 ARTERIAL (12/23/2018 [...] [facility] COHB Art 1.5 % [facility] Comment: Nonsmokers: 0.5-1.5% COHB Smokers: Variable, but usually less than 10% Toxic: 20-30% COHB Lethal: Greater than 60% COHB METHB Art 0.3 <=1.5 % [facility] Na Whole Blood 134(L) 135 - [...] [facility] Comment: Noted by [employer]ounter [employer]. Note: ??Total bilirubin higher than 20 mg/dL [...] MD CHEMISTRY ORDERABLE S Performing Organization Address City/State/[facility] Co de Phone Number [facility] [place] [address] * (ABNORMAL) BLOOD GAS 2 ARTERIAL (12/23/2018 8:15 AM EDT) pH Art 7.38 7.35 - 7.45 [facility] pCO2 Art 39 35 - [...] [facility] COHB Art 1.3 % [facility] Comment: Nonsmokers: 0.5-1.5% COHB Smokers: Variable, but usually less than 10% Toxic: 20-30% COHB Lethal: Greater than 60% COHB METHB Art 0.3 <=1.5 % [facility] Na Whole Blood 136 135 - [...] [facility] FIO2 Art 94 % [facility] Flow Art 1.1 LPM [facility] PF Ratio Art 432 [facility] Temp Art 35.7 Celsius [facility] Blood specimen (specimen) 12/23/2018 8:15 AM EDT 12/23/2018 8:15 AM EDT Louis De La O MD CHEMISTRY ORDERABLE S Performing Organization Address City/State/[facility] Co de Phone Number [facility] [place] [address] * (ABNORMAL) Urinalysis without microscopic (12/23/2018 7:20 [...] indicated. Urobilinogen UA Normal Normal mg/dL [facility] pH UA 6.0 5.0 - 8.0 [facility] Blood UA Negative Negative mg/dL [facility] Ketones UA Negative Negative mg/dL [facility] Nitrite UA Negative Negative [facility] Leukocytes UA Negative Negative [facility] Y [facility] Appearance UA Clear Clear [facility] Spec Union UA 1.021 1.002 - 1.030 [facility] Color UA Yellow Yellow [facility] Urine specimen (specimen) 12/23/2018 7:20 AM EDT 12/23/2018 8:00 AM EDT Narrative Resulting Agency Comment Spec In Lab Marlo Keith MD URINE ORDERABLES Performing Organization Address City/[facility]/ZIP Co de Phone Number [facility] [place] [address] * EKG 12 Lead (12/23/2018 7:18 AM EDT) Ventricular rate 68 BPM MUSE SYSTEM Atrial Rate 68 BPM MUSE SYSTEM P-R Interval 212 ms MUSE SYSTEM QRS Duration 84 ms MUSE SYSTEM Q-T Interval 376 ms MUSE SYSTEM QTC Calculated (Bezet) 399 ms MUSE SYSTEM Calculated P [place] 57 degrees MUSE SYSTEM Calculated R [place] 4 degrees MUSE SYSTEM Calculated T [place] 69 degrees MUSE SYSTEM INTERPRETATION Sinus rhythm with 1st degree A-V block Inferior infarct (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1 % [facility] Lymphocytes Abs 1.1 0.9 - 3.2 x10(3)/mc L [facility] Monocytes % 12.5 % [facility] Monocyte Abs 1.0(H) 0.3 - 0.9 x10(3)/[facility] Eosinophils % 1.7 % [facility] Eosinophils Abs 0.1 0.0 - 0.4 x10(3)/[facility] Basophils % 1.1 % [facility] Basophils Abs 0.1 0.0 - 0.1 x10(3)/[facility] Immature Gran % 0.10 % [facility] Comment: Immature granulocytes(IG's)percentage and absolute count will include metamyelocytes, myelocytes, and promyelocytes. Blood smears from CBCs yielding IG's will be scanned manually for concordance. If this scan disagrees with the automated IG or if promyelocytes are noted, a manual differential will be performed. Alicia Gran Abs 0.01 0.00 - 0.04 x10(3)/[facility] Blood specimen (specimen) 12/23/2018 7:10 AM EDT 12/23/2018 7:18 AM EDT Narrative Resulting Agency Comment Spec In Lab Louis De La O MD HEMATOLOGY ORDERABL ES [facility] [place] [address] * Hemogram (12/23/2018 7:10 AM EDT) WBC 7.6 4.0 - 9.5 x10(3)/[facility] LAB[facility] RBC 4.81 4.58 - 5.54 x10(6)/[facility] Hemoglobin 14.2 13.7 - 16.5 gm/dL [facility] Hematocrit 43.2 40.5 - 48.5 % [facility] MCV 89.8 82.9 - 93.1 fL [facility] MCH 29.5 27.5 - 32.1 pg [facility] MCHC 32.9 32.0 - 35.7 gm/dL [facility] Platelets 323 145 - 357 x10(3)/[facility] LAB[facility] RDWSD 44.7 36.0 - 45.0 [facility] RDWCV 13.4 11.4 - 13.8 % [facility] MPV 9.6 7.6 - 12.9 [facility] nRBC % Auto 0.0 % [facility] nRBC Abs Auto 0.000 0.000 - 0.000 x10(3)/[facility] Blood specimen (specimen) 12/23/2018 7:10 AM EDT 12/23/2018 7:18 AM EDT Narrative Resulting Agency Comment Spec In Lab Louis De La O MD HEMATOLOGY ORDERABL ES Performing Organization Address City/State/[facility] Co de Phone Number [facility] [place] [address] * (ABNORMAL) CMP w/fasting Glucose (12/23/2018 7:10 [...] of Diabetes Mellitus, Position Statement from the [place] [employer]. ??Diabetes Care, Volume 33, Supplement [...] of body mass or the acutely ill. [email or web address]/[facility] eGFR 68 >=60 mL/min/1. 73 m?? [facility] Comment: The eGFR was calculated using the CKD-EPI equation. As with all creatinine based estimates of kidney function, eGFR values calculated with the CKD-EPI equation are not accurate in patients with acute kidney failure, extremes of body mass or the acutely ill. [email or web address]/[facility] Blood specimen (specimen) 12/23/2018 7:10 AM EDT 12/23/2018 7:18 AM EDT Narrative Resulting Agency Comment Spec In Lab Louis De La O MD CHEMISTRY ORDERABLE S Performing Organization Address [facility]/ZIP Co de Phone Number [facility] [place] [address] * POCT Glucose (12/23/2018 6:46 AM EDT) POC Glucose 132 65 - 199 mg/dL [facility] Comment: Supplemental ranges: <140 mg/dL before meals <180 mg/dL all other times of the day Blood specimen (specimen) 12/23/2018 6:46 AM EDT 12/23/2018 6:46 AM EDT Louis De La O MD POINT OF CARE TEST ORDERABLES Performing Organization Address [facility] Co de Phone Number [facility] [place] [address] * Prepare RBC (12/23/2018 6:40 AM EDT) Dispensed? Yes [facility] Blood specimen (specimen) 12/23/2018 6:40 AM EDT 12/23/2018 6:37 AM EDT Louis De La O MD BLOOD BANK PRODUCT ORDERABLES Performing Organization Address City/[facility] Co de Phone Number [facility] [place] [address] documented in this encounter Visit Diagnoses Diagnosis CKD (chronic kidney disease) stage 4, GFR 15-29 ml/min Chronic kidney disease, Stage IV (severe) ASCVD (arteriosclerotic cardiovascular disease) Unspecified cardiovascular disease Coronary artery disease of [place] heart with stable angina pectoris, unspecified vessel or lesion type S/P CABG x 2 Postsurgical aortocoronary bypass status Coronary artery disease of [place] heart with stable angina pectoris, unspecified vessel or lesion type 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 documented in this encounter Admitting Diagnoses Diagnosis CAD (coronary artery disease) Coronary atherosclerosis of unspecified type of vessel, [place] or graft documented in this encounter Administered Medications Inactive Administered Medications - up to 3 most recent administrations Medication Order MAR Action Action Date Dose Rate Site acetaminophen (TYLENOL) tablet 1,000 mg 1,000 mg, Oral, EVERY 6 HOURS SCHEDULED, First dose on Thu12/24/18 at 1200, Until Discontinued, Maximum dose of acetaminophen is 4000 mg from all sources in 24 hours., Routine Given 12/27/2018 11:53 AM EDT 1,000 mg Given 12/27/2018 5:15 AM EDT 1,000 mg Given 12/26/2018 11:35 PM EDT 1,000 mg aspirin chewable tablet 81 mg 81 mg, Oral, DAILY, First dose on Stacey 12/23/18 at 1200, Until Discontinued, Routine Given 12/27/2018 9:02 AM EDT 81 mg Given 12/26/2018 8:35 AM EDT 81 mg Given 12/25/2018 9:22 AM EDT 81 mg bisacodyl (DULCOLAX) suppository 10 mg 10 mg, Rectal, DAILY, First dose (after last modification) on Thu12/26/18 at 0930, Until Discontinued, Starting post-op day 3., Routine calcium chloride 100 mg/mL (10 %) injection ONCE PRN, Starting on Stacey 12/23/18 at 0957, Until Stacey 12/23/18 at 1109, Intra-Operative (Intra-Procedure), Routine Given 12/23/2018 9:57 AM EDT 1 g cardioplegic solution (PLEGISOL) induction solution CONTINUOUS PRN, Starting on Stacey 12/23/18 at 0945, Until Stacey 12/23/18 at 0945, Intra-Operative (Intra-Procedure) New Bag 12/23/2018 9:45 AM EDT 267 mLs cardioplegic solution (PLEGISOL) maintenance solution CONTINUOUS PRN, Starting on Stacey 12/23/18 at 0945, Until Stacey 12/23/18 at 0945, Intra-Operative (Intra-Procedure) New Bag 12/23/2018 9:45 AM EDT 203 mLs cardioplegic solution (PLEGISOL) reperfusion solution CONTINUOUS PRN, Starting on Stacey 12/23/18 at 0956, Until Stacey 12/23/18 at 0956, Intra-Operative (Intra-Procedure) New Bag 12/23/2018 9:56 AM EDT 154 mLs clopidogrel (PLAVIX) tablet 75 mg 75 [...] the duration of the active insulin., Routine electrolyte (pH 7.4) (NORMOSOL-R; PLASMALYTE-A) injection CONTINUOUS PRN, Starting on Stacey 12/23/18 at 0749, Until Stacey 12/23/18 at 0749, Intra-Operative (Intra-Procedure) New Bag 12/23/2018 7:49 AM EDT 1,500 mLs furosemide (LASIX) tablet 20 mg 20 mg, Oral, DAILY, First dose on Thu12/27/18 at 0900, Until Discontinued, Routine Given 12/27/2018 9:04 AM EDT 20 mg gemfibrozil (LOPID) tablet [...] weight of tube = 37.5 grams., Routine heparin (porcine) injection ONCE PRN, Starting on Stacey 12/23/18 at 0749, Until Stacey 12/23/18 at 1109, Intra-Operative (Intra-Procedure), Routine Given 12/23/2018 9:45 AM EDT 5,000 Units Given 12/23/2018 7:49 AM EDT 5,000 Units insulin lispro (HumaLOG) VIAL injection 2-8 Units [...] Given 12/26/2018 5:11 PM EDT 4 Units ipratropium-albuterol (DUONEB) 0.5 mg-3 mg(2.5 mg base)/3 mL nebulizer solution 3 mL 3 mL, Nebulization, EVERY 4 HOURS PRN, Starting on Thu12/24/18 at 0854, Until 12/27/18 at 1603, Wheezing, Routine lidocaine (PF) (XYLOCAINE) 100 mg/5 mL (2 %) injection ONCE PRN, Starting on Stacey 12/23/18 at 0957, Until Stacey 12/23/18 at 1109, Intra-Operative (Intra-Procedure), Routine Given 12/23/2018 9:57 AM EDT 200 mg magnesium hydroxide (Milk of Magnesia) (240 mg/mL) oral liquid 10 mL 10 mL, Oral, DAILY, First dose on 12/25/18 at 0900, Until Discontinued, Post-op day 2. Do not use with renal insufficiency., Routine Given 12/26/2018 8:35 AM EDT 10 mLs Given 12/25/2018 9:23 AM EDT 10 mLs magnesium sulfate 4 mEq/mL (50 %) injection ONCE PRN, Starting on Stacey 12/23/18 at 0956, Until Stacey 12/23/18 at 1109, Intra-Operative (Intra-Procedure), Routine Given 12/23/2018 9:56 AM EDT 2 g mannitol (50 grams and over) 100 g/500 mL (20%) infusion CONTINUOUS PRN, Starting on Stacey 12/23/18 at 0956, Until Stacey 12/23/18 at 0956, Intra-Operative (Intra-Procedure) New Bag 12/23/2018 9:56 AM EDT 50 g metFORMIN (GLUCOPHAGE) tablet 500 mg 500 mg, Oral, 2 TIMES DAILY WITH MEALS, First dose on 12/26/18 at 1045, Until Discontinued, Routine Given 12/27/2018 9:05 AM EDT 500 mg Given 12/26/2018 4:24 PM EDT 500 mg metoprolol tartrate (LOPRESSOR) tablet 75 mg 75 mg, Oral, EVERY 12 HOURS SCHEDULED (2 times per day), First dose (after last modification) on 12/27/18 at 0700, Until Discontinued, Routine Given 12/27/2018 9:02 AM EDT 75 mg oxyCODONE (ROXICODONE) immediate release tablet 5-10 mg [...] 9:40 AM EDT 5 mg pantoprazole (PROTONIX) tablet 40 mg 40 mg, Oral, DAILY, First dose on Thu12/23/18 at 1200, Until Discontinued, DO NOT CRUSH OR OPEN If unable to take PO, may give IV Given 12/27/2018 9:00 AM EDT 40 mg Given 12/26/2018 8:35 AM EDT 40 mg Given 12/25/2018 9:22 AM EDT 40 mg rosuvastatin (CRESTOR) tablet 40 mg 40 mg, Oral, DAILY, First dose on Thu12/23/18 at 1200, Until Discontinued Given 12/27/2018 9:04 [...] Given 12/26/2018 3:15 PM EDT 5 mLs vancomycin (VANCOCIN) injection ONCE PRN, Starting on Stacey 12/23/18 at 0843, Until Stacey 12/23/18 at 1109, Intra-Operative (Intra-Procedure), Routine Given 12/23/2018 8:43 AM EDT 1 g 19- Surgical Site verapamil (ISOPTIN) injection ONCE PRN, Starting on Stacey 12/23/18 at 0843, Until Stacey 12/23/18 at 1109, Administer over 2 Minutes, Intra-Operative (Intra-Procedure) Given 12/23/2018 8:43 AM EDT 5 mg 19- Surgical Site documented in this encounter Active and Recently [...] dose on Thu12/24/18 at 0915, Until Discontinued 0920 (Given - Provider: Ramírez Zapata RN)1731 (Given [...] Provider: Ramírez Zapata RN)1735 (Given - Provider: Ramríez Zapata RN) 0845 (Given - Provider: Jennifer [...] 2 g, Intravenous, ONCE, 1 dose, On Thu12/27/18 at 1045, Administer over 120 Minutes 1050 [...] on Thu12/24/18 at 2100, Until Discontinued, Routine 09 (Given - Provider: Ramírez Zapata RN) metoprolol [...] 1 dose, On 12/26/18 at 0930, Routine 1106 (Given - Provider: Jennifer Ramos RN) metoprolol [...] on Stacey 12/23/18 at 1200, Until Discontinued 0922 (Given - Provider: Ramírez Zapata RN) 0834 (Given - Provider: Jennifer Ramos RN) 0904 (Given - Provider: Jennifer Ramos RN) senna-docusate (PERICOLACE) 8.6-50 mg per tablet 2 tablet 2 tablet, Oral, DAILY, First dose on Thu12/24/18 at 2100, Until Discontinued, Post-op day 1, Routine 2116 (Given - Provider: Rudi Danielle RN) 2025 (Given - Provider: Rudi Danielle RN) sodium [...] 40 mg, Intravenous, DAILY, First dose on Thu12/23/18 at 1200, Until Discontinued, Reconstitute with 10 [...] Routine documented in this encounter Care Teams Collections Officer Relationship Specialty Start Date End Date Antonella Lucas PA [address] [place] [address] PCP - General Family Medicine 05/06/17 11/01/19 documented as of this encounter
--- OUTSIDE RECORDS SUMMARY | 2023-10-15 19:00 | XMS_ITS | Encounter Summary ---
Author Organization [facility] [place] [address] Care Team Providers Care Outpatient Interviewing Clerk Name Role Phone Antonella Lucas Primary Care Provider [phone]- [phone] Encounter Details Date Type Department Care Team (Latest Contact Info) Description 12/08/2018 5:48 AM EDT - 12/08/2018 5:50 PM EDT Hospital En[place] [address] Irwin Fischer MD [facility] [place] [address] Discharge Disposition: Home Social History Tobacco Use [...] Sign Reading Time Taken Comments Blood Pressure 148/86 12/08/2018 5:35 PM EDT Pulse 72 12/08/2018 5:00 PM EDT Temperature 36.7 ??C (98.1 ??F) 12/08/2018 5:11 PM ED T Respiratory Rate 19 12/08/2018 5:00 PM EDT Oxygen Saturation 96% 12/08/2018 5:35 PM EDT Inhaled Oxygen Concentration - - Weight [...] by your doctor, do not take any [id number] medicines or herbal preparations without first discussing this with your doctor or pharmacist. There is the possibility of side effect and interactions when these are combined. Follow up Care Who to Call with Questions or Problems If there are any questions or problems that you think might be related to your cardiac cath or angioplasty, contact the medic technician licensed vocational nurse by calling [facility] at . documented in this encounter Medications [...] man with a history of CAD (inferior [place] 2009 s/p CK x2 to mid RCA [...] is in the chart. Willam Evans MD Budget Examiner PGY-4 12/08/2018 documented in this encounter Miscellaneous Notes * Brief Op Note - Irwin Fischer MD - 12/08/2018 3:48 PM EDT Brief Operative Note Patient Name: Bear Gamboa : [id number] MR#: [id number] Case Date: 12/08/2018 Surgeon: Surgeon(s) and Role: * Irwin Fischer MD - Primary * Orville Blair MD - Fellow Preoperative diagnosis: ASCVD (arteriosclerotic cardiovascular disease) [I25.10] Postoperative diagnosis: ASCVD (arteriosclerotic cardiovascular disease) [I25.10] Procedure(s) (LRB): CARDIAC CATHETERIZATION (N/A) CORONARY ANGIOGRAPHY; W LHC,POSSIBLE PCI (N/A) Findings: LM - Mild diffuse disease; 50% proximal stenosis in the Ramus Intermedi[employer] LAD - 100% mid-vessel HR OPERATIONS ADVISOR; 50% ostial D2 stenosis; distal vessel receives [...] POC Glucose 133 65 - 199 mg/dL [facility] Comment: Supplemental ranges: <140 mg/dL before meals <180 mg/dL all other times of the day Blood specimen (specimen) 12/08/2018 10:34 AM EDT 12/08/2018 10:34 AM EDT Irwin Fischer MD POINT OF CARE TEST O RDERABLES [facility] [place] [address] documented in this encounter Visit Diagnoses Not on filedocumented in this encounter Administered Medications Inactive Administered Medications - up to 3 most recent administrations Medication Order MAR Action Action Date Dose Rate Site sodium chloride 0.9% infusion 200 mL/hr, Intravenous, CONTINUOUS, Starting on Thu12/08/18 at 1100, Until Thu12/08/18 at 1748, Cath (Day of Procedure) New Bag 12/08/2018 10:42 AM EDT 200 mL/hr 200 mL/hr sodium chloride 0.9% infusion 150 mL/hr, Intravenous, CONTINUOUS, Starting on Thu12/08/18 at 1545, Until Thu12/08/18 at 1744, Recovery (Recovery-Hospital Unit) Continued Bag 12/08/2018 3:30 PM EDT 150 mL/hr 150 mL/hr documented in this encounter Active and Recently [...] Anthony Jaime RN)1443 (Given - Provider: Bridget Mukherjee, RN) heparin (porcine) injection (CANCELED) ONCE PRN, Starting on Thu12/08/18 at 1447, Until Thu12/08/18 at 1509, Cath (Intra-Procedure), Routine 1447 (Given - Provid er: Anthony Jaime RN) midazolam (PF) (VERSED) multi-dose injection (CANCELED) ONCE PRN, Starting on Thu12/08/18 at 1434, Until Thu12/08/18 at 1509, Cath (Intra-Procedure), Routine 1434 (Given - Provid er: Anthony Jaime RN)1443 (Given - Provider: Bridget Mukherjee RN) nitroGLYcerin 100 mcg/mL intracoronary dilution (CANCELED) ONCE [...] cannulation) documented in this encounter Care Teams Outpatient Interviewing Clerk Relationship Specialty Start Date End Date Antonella Lucas PA [address] [place] [address] PCP - General Family Medicine 05/06/17 11/01/19 documented as of this encounter
--- OUTSIDE RECORDS SUMMARY | 2023-10-15 19:00 | XMS_ITS | Encounter Summary ---
Author Organization [facility] [place] [address] Care Team Providers Care Firer Marine Name Role Phone Cleosteffi Antonella ARRIAGA Primary Care Provider [phone]- [phone] Encounter Details Date Type Department Care Team (Late st Contact Info) Description 09/07/2018 11:15 AM EDT Ancillary Procedure [place] [address] Celine Finley MD [facility] [place] [address] Social History Tobacco Use Types Packs/Day Years [...] Diagnosis Comments FILM LIBRARY STORAGE ONLY CT CHEST ABDOMEN PELVIS Routine 09/07/2018 11:10 AM EDT documented in this encounter Results * Film Library- Storage Only CT Chest Abdomen Pelvis (09/07/2018 11:10 AM EDT) Narrative [facility] - 09/07/2018 11:10 AM EDT This exam is auto-finalizing. It's purpose is for storage only. Celine Finley MD IMG FILM LIBRARY ORD ERABLES [facility] [place], [place] documented in this encounter Visit Diagnoses Not on filedocumented in this encounter Care Teams Firer Marine Relationship Specialty Start Date End Date Antonella Lucas PA [address] [place] [address] PCP - General Family Medicine 05/06/17 11/01/19 documented as of this encounter
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
--- OUTSIDE RECORDS SUMMARY | 2023-10-15 19:01 | XMS_ITS | Encounter Summary ---
Author Organization [facility] Address [facility] [place] [address] Care Team Providers Care Management Lecturer Name Role Phone Uma Asif MD Primary Care Provider [phone] Reason for Visit * Reason Comments Medication Refill Encounter Details Date Type Department Care Team (Late st Contact Info) Description 02/24/2012 Refill Cardiology at [address] [phone] Simon Loyd MD [facility] [place] [address] Medication Refill Social History Tobacco Use Types Packs/Day Years Used Date Smoking Tobacco: Every Day Sex and Gender Information Value Date Recorded Sex Assigned at Not on file Gender Identity Not on file Sexual Orientation Not on file documented as of this encounter Plan of Treatment Not on file documented as of this encounter Visit Diagnoses Diagnosis Hyperlipidemia- Primary Other and unspecified hyperlipidemia documented in this encounter Care Teams Management Lecturer Relationship Specialty Start Date End Date Uam Asif MD [address] [place] [address] PCP - General 02/05/10 05/05/17 documented as of this encounter
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
--- OUTSIDE RECORDS SUMMARY | 2023-10-15 19:01 | XMS_ITS | Encounter Summary ---
[place] [address] Care Team Providers Care Automotive Shop Foreman Name Role Phone Uma Asif MD Primary Care Provider [phone] Encounter Details Date Type Department Care Team (Late st Contact Info) Description 03/18/2010 9:41 AM EST - 03/18/2010 11:59 PM [facility] Hospital Encounter Non-Invasive [place] [id number] Social History Tobacco Use Types Packs/Day Years Used Date Smoking Tobacco: Never Assessed Sex and Gender Information Value Date Recorded Sex Assigned at Not on file Gender Identity Not on file Sexual Orientation Not on file documented as of this encounter Medications at Time of Discharge Medication Sig Dispensed Refills Start Date End Date clopidogrel (PLAVIX) 75 mg tablet 75 MG = 1 Tablet(s), PO, Once daily 03/18/2010 nitroGLYcerin (NITROSTAT) 0.4 mg SL tablet 0.4 MG = 1 Tablet(s), Sublingual, PRN 03/18/2010 sildenafil (VIAGRA) 50 mg tablet 50 MG = 1 Tablet(s), PO, PRN 03/18/2010 metoprolol succinate (TOPROL-XL) 50 mg 24 hr tablet 150 MG = 3 Tablet(s), PO, Once daily 03/18/2010 06/14/2012 aspirin 325 mg tablet 325 MG = 1 Tablet(s), PO, Once daily 03/18/2010 12/27/2018 atorvastatin (LIPITOR) 40 mg tablet 40 MG = 1 Tablet(s), PO, QHS 03/18/2010 06/17/2011 lisinopril (PRINIVIL;ZESTRIL) 5 mg tablet 5 MG = 1 Tablet(s), PO, Once daily 03/18/2010 08/12/2017 metFORMIN (GLUCOPHAGE) 500 mg tablet 03/18/2010 06/17/2011 documented as of this encounter Plan of Treatment Not on file documented as of this encounter Visit Diagnoses Not on filedocumented in this encounter Care Teams Automotive Shop Foreman Relationship Specialty Start Date End Date Uma Asif MD [address] [place] [address] PCP - General 02/05/10 05/05/17 documented as of this encounter
--- OUTSIDE RECORDS SUMMARY | 2023-10-15 19:01 | XMS_ITS | Encounter Summary ---
Author Organization [facility] Address [facility] [place] [address] Care Team Providers Care Sprayer Leather Name Role Phone Lance Antonella ARRIAGA Primary Care Provider [phone] Encounter Details Date Type Department Care Team (Latest Contact Info) Description 05/12/2017 - 05/12/2017 11:59 PM EST Hospital Encounter [place] [address] Ibrahima Lux MD [facility] [place] [address] Discharge Disposition: Home Social History Tobacco Use Types Packs/Day Years Used Date Smoking Tobacco: Every Day Cigarettes Smokeless Tobacco: Never Sex and Gender Information Value Date Recorded Sex Assigned at Not on file Gender Identity Not on file Sexual Orientation Not on file documented as of this encounter Medications at Time of Discharge Medication Sig Dispensed Refills Start Date End Date gemfibrozil (LOPID) 600 mg Tablet Take 600 [...] MG = 1 Tablet(s), PO, PRN 03/18/2010 meTOPROLOL succinate (TOPROL-XL) 100 mg Tablet Sustained Release 24 hrIndications:Atheroscl erotic heart disease of [place] coronary artery without angina pectoris Take 1 tablet by mouth daily. 180 tablet 3 07/25/2014 08/12/2017 aspirin 325 mg tablet 325 MG = 1 Tablet(s), PO, Once daily 03/18/2010 12/27/2018 lisinopril (PRINIVIL;ZESTRIL) 5 mg tablet 5 MG = 1 Tablet(s), PO, Once daily 03/18/2010 08/12/2017 documented as of this encounter Plan of Treatment Not on file documented as of this encounter Procedures Procedure Name Priority Date/Time Associated Diagnosis Comments FILM LIBRARY STORAGE ONLY ULTRASOUND STUDY Routine 05/12/2017 12:00 AM EST documented in this encounter Results * Film Library- Storage Only Ultrasound Study (05/12/2017 12:00 AM EST) Narrative [facility] - 09/15/2017 3:52 PM EDT This exam is for storage only and is auto-finalizing. Ibrahima Lux MD IMG FILM LIBRARY ORD ERABLES [place], [place] documented in this encounter Visit Diagnoses Not on filedocumented in this encounter Care Teams Sprayer Leather Relationship Specialty Start Date End Date Antonella Lucas PA [address] [place] [address] PCP - General Family Medicine 05/06/17 11/01/19 documented as of this encounter
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
--- OUTSIDE RECORDS SUMMARY | 2023-10-15 19:01 | XMS_ITS | Encounter Summary ---
Author Organization [facility] Address [facility] [place] [address] Care Team Providers Care Press Leader Name Role Phone Uma Asif MD Primary Care Provider [phone] Encounter Details Date Type Department Care Team (Late st Contact Info) Description 03/18/2010 11:10 AM EST Follow-Up Cardiology at [address] [address] Simon Loyd MD [facility] [address] Discharge Disposition: Home Social History Tobacco Use [...] on filedocumented in this encounter Care Teams Press Leader Relationship Specialty Start Date End Date Uma Asif MD [address] [place] [address] PCP - General 02/05/10 05/05/17 documented as of this encounter
--- OUTSIDE RECORDS SUMMARY | 2023-10-15 19:01 | XMS_ITS | Encounter Summary ---
[place] [address] Care Team Providers Care Blacking Wheel Tender Name Role Phone Uma Asif MD Primary Care Provider [phone] Encounter Details Date Type Department Care Team (Late st Contact Info) Description 03/18/2010 9:41 AM EST - 03/18/2010 11:59 PM [facility] Hospital Encounter Non-[place] [id number] Social History Tobacco Use Types Packs/Day Years [...] on filedocumented in this encounter Care Teams Blacking Wheel Tender Relationship Specialty Start Date End Date Uma Asif MD [address] [place] [address] PCP - General 02/05/10 05/05/17 documented as of this encounter
== END 2023-10-15 18:56 | disposition home or self-care (01) ==
LOC: NCHCN 18:55
PROVIDERS: PCP Physician Assistant Medical; Visit Provider Physician Assistant Medical
DX: N18.30 Chronic kidney disease, stage 3 unspecified (principal); E79.0 Hyperuricemia without signs of inflammatory arthritis and tophaceous disease; E06.3 Autoimmune thyroiditis; E11.9 Type 2 diabetes mellitus without complications
CPT/HCPCS: 80053; 83036; 84443; 84550

== ENCOUNTER 2023-11-19 15:50 | Outpatient (CLI) | payer MEDICARE, MEDICAID, SELFPAY ==
--- NOTE | 2023-11-19 10:15 | DI.RAD_ITS ---
Exam(s) XR LUMBAR SPINE COMPLETE EXAM: XR LUMBAR SPINE COMPLETE CLINICAL HISTORY: LOW BACK PAIN. TECHNIQUE: 2D digital imaging was performed of the lumbar spine. Six images were obtained. AP, lat eral, right oblique, left oblique and L5-S1 spot views were obtained. COMPARISON: No exams were available for comparison FINDINGS: BONES: No fracture or destructive lesion. Endplate osteophytes are seen at multiple levels of the lum bar spine particularly L3-4 through L5-S1. Degenerative changes of the facets are seen in the lower l umbar spine. DISKS: There is disc space narrowing at T12-L1, L3-L4, L4-L5 and L5-S1. There is vacuum discs at L4- 5 and L3-L4. ALIGNMENT: No evidence of spondylolisthesis. There is bilateral L5 spondylolysis. SOFT TISSUE: Atherosclerotic calcification is present. IMPRESSION: Moderate degenerative changes seen in the lumbar spine. DATA REPOSITORY: RADIATION DOSE DELIVERED:
== END 2023-11-19 15:51 | disposition home or self-care (01) ==
LOC: DIORS 15:50
PROVIDERS: PCP Physician Assistant Medical; Referring Provider Physician Assistant Medical; Visit Provider Student in an Organized Health Care Education/Training Program
DX: M54.50 Low back pain, unspecified (principal); G89.29 Other chronic pain; M48.061 Spinal stenosis, lumbar region without neurogenic claudication; Z96.652 Presence of left artificial knee joint
CPT/HCPCS: 99213; 72110

== ENCOUNTER 2023-12-04 00:35 | Outpatient (CLI) | payer MEDICARE, MEDICAID, SELFPAY ==
--- OUTSIDE RECORDS SUMMARY | 2023-12-04 00:37 | XMS_ITS | Encounter Summary ---
Author Organization [facility] [address] Care Team Providers Care Photographic Double Name Role Phone CleomarisaAntonella crow Luly ARRIAGA Primary Care Provider [phone] Encounter Details Date Type Department Care Team (Late st Contact Info) Description 03/22/2019 1:20 PM EST Office Visit Cardiology at [address] [address] Keven Dyson, RN Research study patient Social [...] INJURY (DANIELA) FOLLOWING CARDIAC SURGERY STUDY NUMBER: [id number] [id number] Phase 3 for Prevention of MAKE in Subjects at High Risk for DANIELA Following Cardiac Surgery Principle Spinner Iron: Marlo Keith MD, MS I had the pleasure of meeting with Bear Gamboa in the clinic today. The purpose of the visit isin follow up at the XXX time-point for participation in the [id number] clinical trial. Ongoing adverse events and interim [...] shortly after having been discharged from an [place]. Current Medications: Current Outpatient Medications: ??? naproxen [...] Height: Central Labs: drawn and sent to [facility] for processing/shipping. * Keven [...] children documented in this encounter Care Teams Photographic Double Relationship Specialty Start Date End Date Antonella Lucas PA [address] [place] [address] PCP - General Family Medicine 05/06/17 11/01/19 documented as of this encounter
--- OUTSIDE RECORDS SUMMARY | 2023-12-04 00:37 | XMS_ITS | Encounter Summary ---
Author Organization [facility] [place] [address] Care Team Providers Care In Tube Conversion Technician Name Role Phone Antonella Lucas Primary Care Provider [phone] Encounter Details Date Type Department Care Team (Late st Contact Info) Description 12/27/2018 Notes [place] [address] Elva Connelly Social History Tobacco Use Types [...] week and will follow up with tobacco senior publications specialist then. documented in this encounter Plan of Treatment Not on file documented as of this encounter Visit Diagnoses Not on filedocumented in this encounter Care Teams In Tube Conversion Technician Relationship Specialty Start Date End Date Antonella Lucas PA [address] [place] [address] PCP - General Family Medicine 05/06/17 11/01/19 documented as of this encounter
--- OUTSIDE RECORDS SUMMARY | 2023-12-04 00:37 | XMS_ITS | Encounter Summary ---
Author Organization [place] [address] Care Team Providers Care Hand Candle Molder Name Role Phone Antonella Lucas Primary Care Provider [phone] Encounter Details Date Type Department Care Team (Late st Contact Info) Description 02/22/2019 12:00 PM EST Office Visit Cardiology at [address] [address] Shavon Dorman RN Research study patient Social [...] INJURY (DANIELA) FOLLOWING CARDIAC SURGERY STUDY Name: [id number] [id number] Phase 3 for Prevention of MAKE in Subjects at High Risk for DANIELA Following Cardiac Surgery Principle Cork Tipper: Marlo Keith MD, MS I had the pleasure of meeting with Bear Rosangela Gamboa in the clinic today. The purpose of the visit isin follow up at the 60 time-point for participation in the [id number] clinical trial. Ongoing adverse events and interim [...] 18 Central Labs: drawn and sent to [facility] for processing/shipping. documented in this encounter Plan of Treatment Not on file documented as of this encounter Visit Diagnoses Diagnosis Research study patient Reserved for inherently not codable concepts WITHOUT codable children documented in this encounter Care Teams Hand Candle Molder Relationship Specialty Start Date End Date Antonella Lucas PA [address] [place] [address] PCP - General Family Medicine 05/06/17 11/01/19 documented as of this encounter
--- OUTSIDE RECORDS SUMMARY | 2023-12-04 00:37 | XMS_ITS | Encounter Summary ---
Author Organization [facility] Address [address] [place] [address] Care Team Providers Care Mind Reader Name Role Phone Antonella Lucas PA-C Primary Care Provider + Encounter Details Date Type Department Care Team (Late st Contact Info) Description 05/15/2021 Lab Requisition [facility] Pathology & Laboratory Medicine - [address] [id number] Outr Resulting Lab, Provider Social History Tobacco [...] IgE 47 <158 IU/mL 05/17/2021 9:48 EST [facility] Blood VENOUS BLOOD / Unknown 05/15/2021 6:50 EST 05/15/2021 16:44 EST Provider Outr Resulting Lab CHEMISTRY & BLOOD GAS ORDERABLES [facility] [address] [place] [address] documented in this encounter Visit Diagnoses Not on filedocumented in this encounter Care Teams Mind Reader Relationship Specialty Start Date End Date Antonella Lucas PA-C [address] [place] [phone] PCP - General 01/28/22 documented as of this encounter
--- OUTSIDE RECORDS SUMMARY | 2023-12-04 00:37 | XMS_ITS | Encounter Summary ---
Author Organization [facility] Address [address] [place] [address] Care Team Providers Care Ring Making Machine Operator Name Role Phone Antonella Lucas PA-C Primary Care Provider + Encounter Details Date Type Department Care Team (Late st Contact Info) Description 06/13/2022 15:00 EDT Phlebotomy Only [facility] 2 Phlebotomy [address] [place], [place] [address] Chair Inspector, Acc Phlebotomy Retinal venous tortuosity Social History [...] 62.3 55.8 - 66.1 % 06/16/2022 15:07 [facility] Albumin g/dL 4.4 3.6 - 5.2 g/dL 06/16/2022 15:07 [facility] Alpha-1 % 5.0(H) 2.9 - 4.9 % 06/16/2022 15:07 [facility] Alpha-1 g/dL 0.40 0.15 - 0.40 g/dL 06/16/2022 15:07 [facility] Alpha-2 % 9.0 7.1 - 11.8 % 06/16/2022 15:07 [facility] Alpha-2 g/dL 0.60 0.50 - 1.00 g/dL 06/16/2022 15:07 [facility] Beta % 11.6 8.4 - 13.1 % 06/16/2022 15:07 [facility] Beta g/dL 0.80 0.60 - 1.20 g/dL 06/16/2022 15:07 [facility] Gamma % 12.1 11.1 - 18.8 % 06/16/2022 15:07 [facility] Gamma g/dL 0.80 0.60 - 1.60 g/dL 06/16/2022 15:07 [facility] SPEP Comment No apparent monoclonal protein seen on serum electrophoresis 06/16/2022 15:07 [facility] Comment:See scanned/suppleme ntary report. Immunotyping , Serum Current Interpretation: Negative for monoclonal immunoglobulins. Reviewed by: Dar Freeman MD, PhD 06/16/2022 13:39. 06/16/2022 15:07 [facility] Total Protein 7.0 6.3 - 8.2 g/dL 06/16/2022 15:07 [facility] Blood VENOUS BLOOD / Unknown Venipuncture / Unknown 06/13/2022 15:05 EDT 06/13/2022 15:15 EDT Shaquille Vasquez MD CHEMISTRY & BLOOD GA S ORDERABLES Performing Organization Address [facility] Co de Phone Number [facility] [address] [place] [address] * PROTEIN, TOTAL (06/13/2022 15:05 EDT) Blood VENOUS BLOOD / Unknown Venipuncture / Unknown 06/13/2022 15:05 EDT 06/13/2022 15:15 EDT Shaquille Vasquez MD CHEMISTRY & BLOOD GA S ORDERABLES Performing Organization Address [facility] Co de Phone Number [facility] [address] [place] [address] documented in this encounter Visit Diagnoses Diagnosis Retinal venous tortuosity Other intraretinal microvascular abnormalities documented in this encounter Care Teams Ring Making Machine Operator Relationship Specialty Start Date End Date Antonella Lucas PA-C [address] [place] [phone] PCP - General 01/28/22 documented as of this encounter
--- OUTSIDE RECORDS SUMMARY | 2023-12-04 00:37 | XMS_ITS | Clinical Summary ---
Author Organization [facility] Address [address] [place] [address] Care Team Providers Care Butcher Supervisor Name Role Phone Antonella Lucas PA-C Primary [...] Risk Screening 2017 COVID-19 Vaccine (2022-24 season) 2023 Care Teams Butcher Supervisor Relationship Specialty Start Date End Date Antonella Lucas PA-C [address] [place] [address] PCP - General 01/28/22
--- OUTSIDE RECORDS SUMMARY | 2023-12-04 00:37 | XMS_ITS | Encounter Summary ---
[place] [address] Care Team Providers Care Field Technician Name Role Phone Antonella Lucas Primary Care Provider [phone]- [phone] Encounter Details Date Type Department Care Team (Late st Contact Info) Description 02/22/2019 11:20 AM EST Office [place] [address] Louis De La O MD S/P CABG (coronary artery bypass graft) Social [...] status documented in this encounter Care Teams Field Technician Relationship Specialty Start Date End Date Antonella Lucas PA [address] [place] [address] PCP - General Family Medicine 05/06/17 11/01/19 documented as of this encounter
--- OUTSIDE RECORDS SUMMARY | 2023-12-04 00:37 | XMS_ITS | Encounter Summary ---
[place] [address] Care Team Providers Care Body Shop Supervisor Name Role Phone Antonella Lucas Primary Care Provider [phone]- [phone] Encounter Details Date Type Department Care Team (Late st Contact Info) Description 03/22/2019 1:00 PM EST Office [place] [address] Louis De La O MD S/P CABG x 2 Social History Tobacco [...] PM EST Cardiac Surgery Clinic Note: ID: [id number] Cardiac Surgery Attending: Dr. De La O [...] Dr. De La O. Signed: [facility] Section of Cardiac Surgery 03/22/2019 documented in this encounter Plan of Treatment Not on file documented as of this encounter Visit Diagnoses Diagnosis S/P CABG x 2 Postsurgical aortocoronary bypass status documented in this encounter Care Teams Body Shop Supervisor Relationship Specialty Start Date End Date Antonella Lucas PA [address] [place] [address] PCP - General Family Medicine 05/06/17 11/01/19 documented as of this encounter
--- OUTSIDE RECORDS SUMMARY | 2023-12-04 00:37 | XMS_ITS | Encounter Summary ---
Author Organization [facility] [place] [address] Care Team Providers Care Material Mixer Name Role Phone Antonella Lucas Primary Care Provider +[phone]- [phone] Encounter Details Date Type Department Care Team (Late st Contact Info) Description 12/22/2019 Notes Only Cardiology at [address] [address] Shavon Dorman RN Social History Tobacco Use [...] Dunne RN - 12/22/2019 11:32 AM EDT [id number] study: Central lab results from Mr. Gamboa's post study follow up visit (12/20/19) were reviewed with . Upon his request the PCP office was contacted and these lab results were sent for their review and management. documented in this encounter Plan of Treatment Not on file documented as of this encounter Visit Diagnoses Not on filedocumented in this encounter Care Teams Material Mixer Relationship Specialty Start Date End Date Antonella Lucas PA [address] [place] [address] PCP - General Family Medicine 12/20/19 documented as of this encounter
--- OUTSIDE RECORDS SUMMARY | 2023-12-04 00:37 | XMS_ITS | Encounter Summary ---
Author Organization [facility] [address] Care Team Providers Care Supervisor Brine Name Role Phone Antonella Lucas Primary Care Provider +1- [phone] Encounter Details Date Type Department Care Team (Latest Contact Info) Description 01/25/2019 2:00 PM EST Office Visit Cardiology at [address] [address] Shavon Dorman RN ASCVD (arteriosclerotic cardiovascular disease) [...] INJURY (DANIELA) FOLLOWING CARDIAC SURGERY STUDY NUMBER: [id number] [id number] Phase 3 for Prevention of MAKE in Subjects at High Risk for DANIELA Following Cardiac Surgery Principle Business Development Analyst: Marlo Keith MD, MS I had the pleasure of meeting with Bear Gamboa in the clinic today. The purpose of the visit isin follow up at the 30 day time-point for participation in the [id number] clinical trial. Ongoing adverse events and interim [...] 18. Central Labs: drawn and sent to [facility] for processing/shipping. documented in this encounter Plan of Treatment Not on file documented as of this encounter Visit Diagnoses Diagnosis ASCVD (arteriosclerotic cardiovascular disease) Unspecified cardiovascular disease documented in this encounter Care Teams Supervisor Brine Relationship Specialty Start Date End Date Antonella Lucas PA [address] [place] [address] PCP - General Family Medicine 05/06/17 11/01/19 documented as of this encounter
--- OUTSIDE RECORDS SUMMARY | 2023-12-04 00:37 | XMS_ITS | Encounter Summary ---
[place] [address] Care Team Providers Care Gauge Machine Operator Name Role Phone Lance Antonella ARRIAGA Primary Care Provider +1- [phone] Encounter Details Date Type Department Care Team (Latest Contact Info) Description 03/24/2019 8:30 AM EST Laboratory Appointment Lab [address] [place] [phone] Research study patient Social History Tobacco Use [...] (03/24/2019 8:40 AM EST) Research Venipuncture Drawn [facility] Blood specimen (specimen) 03/24/2019 8:40 AM EST 03/24/2019 8:57 AM EST Narrative Resulting Agency Comment Spec In Lab Marlo Keith MD CHEMISTRY ORDERABL ES [facility] [place] [address] documented in this encounter Visit Diagnoses Diagnosis Research study patient Reserved for inherently not codable concepts WITHOUT codable children documented in this encounter Care Teams Gauge Machine Operator Relationship Specialty Start Date End Date Antonella Lucas PA [address] [place] [address] PCP - General Family Medicine 05/06/17 11/01/19 documented as of this encounter
--- OUTSIDE RECORDS SUMMARY | 2023-12-04 00:37 | XMS_ITS | Clinical Summary ---
Author Organization [facility] Address One [facility] [place] [address] Care Team Providers Care Accounts Administrator Name Role Phone Antonella Lucas Primary Care Provider +1- [phone] Allergies Active Allergy Reactions Criticality Noted Date [...] artery disease 02/23/2009 Overview (05/21/2010): inferior STEMI [facility] 02/23/09: proximal RCA, [employer] LAD. BMS to prox. RCA, BMS to [...] Immunizations Name Administration Dates Next Due Influenza Adjuvanted (FluAd) Trivalent, PF 65yrs + 12/27/2018 Social History Tobacco Use Types Packs/Day [...] Covid-19 Vaccine (1 - 2022-2 4 season) 2023 Influenza (Flu) vaccine (1 o f 1 - Influenza standard series) 11/15/2023 12/27/2018 Diabetes Screening (HgbA1C o r Glucose) Discontinued 12/26/2018, 12/24/2018, 12/23/2018, Additional history exists Medical Devices Implanted Type Area Manager Access Device Identifier Shelf Expiration Date Model / Serial / Lot Cable,Cut,Edg ,Blnt,Ss,3tpr ([id number]) - [id number] Implanted:Qty : 4 on 12/23/2018 by Louis De La O MD at [facility] IMPLANTS N/A: Chest [employer] - RTI SURGIC 07/28/2023 [id number] / [id number] / Patch,Sandstone,Sr gl,Ptfe,15x15 cm ([id number]) - [id number] Implanted:Qty : 1 on 12/23/2018 by Louis De La O MD at [facility] IMPLANTS N/A: Chest [employer] - CR BARD 09/11/2023 [id number] / [id number] / Procedures Procedure Name Priority Date/Time Associated Diagnosis Comments HC VENIPUNCTURE Routine 12/26/2018 4:52 AM EDT from Last 3 Months or Most Recently Relevant to Health Maintenance Results * (ABNORMAL) Basic Metabolic Panel (non-fasting) (12/26/2018 4:52 AM EDT) Glucose 172 65 - 199 mg/dL [facility] Comment:Diabetes: >=200 mg/d L plus symptoms Blood Urea Nitrogen 21(H) 10 - 20 mg/dL [facility] Creatinine 1.34 0.80 - 1.50 mg/dL [facility] Sodium 133(L) 135 - 145 mmol/L [facility] Potassium 3.7 3.5 - 5.0 mmol/L [facility] Comment: Please note: ??Patients with WBC >100,000 may have falsely elevated Potassium levels. ??For accurate Potassium quantification in these patients send serum separator tube (gold top) for subsequent determinations. ??Contact the Clinical Chemistry Laboratory if there are any questions. Chloride 99 98 - 107 mmol/L [facility] Carbon Dioxide 22 22 - 31 mmol/L [facility] Anion Gap 12 5 - 15 mmol/L [facility] Calcium 8.6 8.5 - 10.5 mg/dL [facility] Est Glomerular Filtration Rate 55(L) >=60 mL/min/1. 73 m?? [facility] Comment: The eGFR was calculated using the CKD-EPI equation. As with all creatinine based estimates of kidney function, eGFR values calculated with the CKD-EPI equation are not accurate in patients with acute kidney failure, extremes of body mass or the acutely ill. [email or web address] eGFR 64 >=60 mL/min/1. 73 m?? [facility] Comment: The eGFR was calculated using the CKD-EPI equation. As with all creatinine based estimates of kidney function, eGFR values calculated with the CKD-EPI equation are not accurate in patients with acute kidney failure, extremes of body mass or the acutely ill. [email or web address] Blood specimen (specimen) 12/26/2018 4:52 AM EDT 12/26/2018 5:11 AM EDT Narrative Resulting Agency Comment Spec In Lab Louis De La O MD CHEMISTRY ORDERABLE S [facility] [place] [address] from Last 3 Months or Most Recently Relevant to Health Maintenance Advance Directives Documents on File Type Date Recorded Patient Art Department Head Expl anation Advance Directives and Samira hinojosa [...] capacity to make decision: Yes Care Teams Accounts Administrator Relationship Specialty Start Date End Date Antonella Lucas PA [address] [place] [address] PCP - General Family Medicine 12/20/19
--- OUTSIDE RECORDS SUMMARY | 2023-12-04 00:37 | XMS_ITS | Encounter Summary ---
Author Organization [facility] [place] [address] Care Team Providers Care Newspaper Journalist Name Role Phone Antonella Lucas Primary Care Provider +1- [phone] Encounter Details Date Type Department Care Team (Latest Contact Info) Description 03/22/2019 12:15 PM EST Laboratory Appointment Cardiology at [address] [address] Research study patient Social History Tobacco Use [...] (03/22/2019 12:49 PM EST) Research Venipuncture Drawn [facility] Blood specimen (specimen) 03/22/2019 12:49 PM EST 03/22/2019 12:54 PM EST Narrative Resulting Agency Comment Spec In Lab Marlo Keith MD CHEMISTRY ORDERABL ES [facility] [place] [address] documented in this encounter Visit Diagnoses Diagnosis Research study patient Reserved for inherently not codable concepts WITHOUT codable children documented in this encounter Care Teams Newspaper Journalist Relationship Specialty Start Date End Date Antonella Lucas PA [address] [place] [address] PCP - General Family Medicine 05/06/17 11/01/19 documented as of this encounter
--- OUTSIDE RECORDS SUMMARY | 2023-12-04 00:37 | XMS_ITS | Encounter Summary ---
Author Organization [facility] Address [address] [place] [address] Care Team Providers Care Equipment Installation Professional Name Role Phone Antonella Lucas PA-C Primary Care Provider + Encounter Details Date Type Department Care Team (Late st Contact Info) Description 04/24/2020 Lab Requisition [facility] Pathology & Laboratory Medicine - [address] [address] Outr Resulting Lab, Provider Social History Tobacco [...] MICROBIOLOGY - GENERAL ORDERABLES Performing Organization Address City/[facility]/ZIP Co de Phone Number [facility] [address] [place] [address] * (ABNORMAL) COVID-19 TESTING (04/24/2020 8:15 EST) COVID-19 rt-PCR Result Positive( AA) Negative 04/25/2020 17:24 EST [facility] Comment: This test has [...] developed and its performance characteristics determined by [facility]. It has not been cleared or approved [...] on the [facility] COVID-19 Emergency Use Authorization (EUA) assay, with minor modification as defined by the FDA Performed on the Learner[employer] 7 Flex RT-PCR System. Performing Lab [facility] Lab 04/25/2020 17:24 EST [facility] Swab 04/24/2020 8:15 EST 04/24/2020 21:53 EST Provider Outr Resulting Lab MICROBIOLOGY - GENERAL ORDERABLES Performing Organization Address City/[facility]/ZIP Co de Phone Number [facility] [address] [place] [address] documented in this encounter Visit Diagnoses Not on filedocumented in this encounter Additional Health Concerns Infection Onset Date Last Indicated Resolved Time COVID-19 04/24/2020 04/24/2020 05/24/2020 22:1 5 EST documented as of this encounter Care Teams Equipment Installation Professional Relationship Specialty Start Date End Date Antonella Lucas PA-C [address] [place] [phone] PCP - General 01/28/22 documented as of this encounter
--- OUTSIDE RECORDS SUMMARY | 2023-12-04 00:37 | XMS_ITS | Encounter Summary ---
Author Organization [facility] [place] [address] Care Team Providers Care Resident Assistant Cna Name Role Phone Antonella Luacs Primary Care Provider +1- [phone] Encounter Details Date Type Department Care Team (Late st Contact Info) Description 01/18/2019 Orders Only Cardiology at [address] [address] Shavon Dorman, RN ASCVD (arteriosclerotic cardiovascular disease) [...] (01/25/2019 11:54 AM EST) Research Venipuncture Drawn [facility] Blood specimen (specimen) 01/25/2019 11:54 AM EST 01/25/2019 12:05 PM EST Narrative Resulting Agency Comment Spec In Lab Louis De La O MD CHEMISTRY ORDERABLE S [facility] [place] [address] documented in this encounter Visit Diagnoses Diagnosis ASCVD (arteriosclerotic cardiovascular disease) Unspecified cardiovascular disease documented in this encounter Care Teams Resident Assistant Cna Relationship Specialty Start Date End Date Antonella Lucas PA [address] [place] [address] PCP - General Family Medicine 05/06/17 11/01/19 documented as of this encounter
--- OUTSIDE RECORDS SUMMARY | 2023-12-04 00:37 | XMS_ITS | Encounter Summary ---
Author Organization [facility] [place] [address] Care Team Providers Care Finish Painter Name Role Phone Antonella Lucas Primary Care Provider +1- [phone] Encounter Details Date Type Department Care Team (Latest Contact Info) Description 02/22/2019 10:45 AM EST Laboratory Appointment Cardiology at [address] [address] Research study patient Social History Tobacco Use [...] (02/22/2019 10:51 AM EST) Research Venipuncture Drawn [facility] Blood specimen (specimen) 02/22/2019 10:51 AM EST 02/22/2019 11:00 AM EST Narrative Resulting Agency Comment Spec In Lab Marlo Keith MD CHEMISTRY ORDERABL ES [facility] [place] [address] documented in this encounter Visit Diagnoses Diagnosis Research study patient Reserved for inherently not codable concepts WITHOUT codable children documented in this encounter Care Teams Finish Painter Relationship Specialty Start Date End Date Antonella Lucas PA [address] [place] [address] PCP - General Family Medicine 05/06/17 11/01/19 documented as of this encounter
--- OUTSIDE RECORDS SUMMARY | 2023-12-04 00:37 | XMS_ITS | Encounter Summary ---
Author Organization [facility] [place] [address] Care Team Providers Care Vp Compliance Name Role Phone Antonella Lucas Primary Care Provider +1- [phone] Encounter Details Date Type Department Care Team (Latest Contact Info) Description 12/20/2019 8:00 AM EDT Laboratory Appointment Cardiology at [address] [address] Research study patient Social History Tobacco Use [...] (12/20/2019 8:20 AM EDT) Research Venipuncture Drawn [facility] Blood specimen (specimen) 12/20/2019 8:20 AM EDT 12/20/2019 8:37 AM EDT Narrative Resulting Agency Comment Spec In Lab Marlo Keith MD CHEMISTRY ORDERABL ES [facility] [place] [address] documented in this encounter Visit Diagnoses Diagnosis Research study patient Reserved for inherently not codable concepts WITHOUT codable children documented in this encounter Care Teams Vp Compliance Relationship Specialty Start Date End Date Antonella Lucas PA [address] [place] [address] PCP - General Family Medicine 12/20/19 documented as of this encounter
--- OUTSIDE RECORDS SUMMARY | 2023-12-04 00:37 | XMS_ITS | Encounter Summary ---
Author Organization [facility] Address [address] [place] [address] Care Team Providers Care Dinkey Press Operator Name Role Phone Antonella Lucas PA-C Primary Care Provider + Reason for Visit * Reason Comments Eye Problem * Prior Authorization (Routine) - Authorized Specialty Diagnoses / Procedures Referred By Nataliia hurt Referred To Contact Diagnoses CRVO (central retinal vein occlusion) Procedures MT INJECT INTRAVITREAL PHARMCOLOGIC MT AFLIBERCEPT INJECTION MT BEVACIZUMAB INJECTION [facility] [place] [address] [place] [address] [place] [address] Referral ID Status Reason Start Date Expiration Date V isits Requested Visits Authorized [id number] Authorized 2 2 Encounter Details Date Type Department Care Team (Late st Contact Info) Description 06/13/2022 13:15 EDT Office Visit [facility] Ophthalmology - [address] [address] Shaquille Vasquez MD [address] [place] [address], [facility] [address] [place] [address] Social History Tobacco Use Types [...] Comments Referred by Stacey Mitchell OD of [facility] for impending CRVO left eye and NPDR [...] - BOTH EYES (06/13/2022 15:02 EDT) Narrative [facility] - 06/13/2022 15:02 EDT Right Eye Quality was good. Progression has no prior data. Findings include normal foveal contour. Left Eye Quality was good. Progression has no prior data. Findings include normal foveal contour. Notes Drusen, no fluid or atrophy, both eyes OCT-A no capillary loss or CNVM Shaquille Vasquez MD OPHTH TOMOGRAPHY [facility]PHTH[facility] documented in this encounter Visit Diagnoses [...] one peripheral heme superior quadrant Care Teams Dinkey Press Operator Relationship Specialty Start Date End Date Antonella Lucas PA-C [address] [place] [phone] PCP - General 01/28/22 documented as of this encounter
--- OUTSIDE RECORDS SUMMARY | 2023-12-04 00:37 | XMS_ITS | Encounter Summary ---
Author Organization [facility] Address [address] [place] [address] Care Team Providers Care Pet Crematory Worker Name Role Phone Antonella Lucas PA-C Primary Care Provider + Encounter Details Date Type Department Care Team (Late st Contact Info) Description 08/08/2021 Lab Requisition [facility] Pathology & Laboratory Medicine - [address] [address] Outr Resulting Lab, Provider Social History Tobacco [...] 11.57 See Note mg/L 08/08/2021 17:57 EDT [facility] Comment: Reference Range: ??Low Risk: ? <1.0 mg/L ??Average Risk: ?? 1.0 - 3.0 mg/L ??High Risk: ?>3.0 mg/L ??Indeterminate*: >10.0 mg/L ??*May be an indication of another source of inflammation or infection Blood VENOUS BLOOD / Unknown 08/07/2021 16:15 EDT 08/08/2021 17:31 EDT Provider Outr Resulting Lab CHEMISTRY & BLOOD GAS ORDERABLES [facility] [address] [place] [address] documented in this encounter Visit Diagnoses Not on filedocumented in this encounter Care Teams Pet Crematory Worker Relationship Specialty Start Date End Date Antonella Lucas PA-C [address] [place] [phone] PCP - General 01/28/22 documented as of this encounter
--- OUTSIDE RECORDS SUMMARY | 2023-12-04 00:37 | XMS_ITS | Encounter Summary ---
[place] [address] Care Team Providers Care Cafe Aide Name Role Phone Antonella Lucas Primary Care Provider +1- [phone] Encounter Details Date Type Department Care Team (Latest Contact Info) Description 05/09/2019 11:40 AM EST Laboratory Appointment Lab [address] [place] [phone] Thyroid nodule Social History Tobacco Use Types [...] Free T4 0.53(L) 0.93 - 1.70 ng/dL [facility] Blood specimen (specimen) Venous Draw / Unknown 05/09/2019 11:49 AM EST 05/09/2019 12:11 PM EST Narrative Resulting Agency Comment Spec In Lab Mickey Alejandra MD CHEMISTRY ORDERABLE S [facility] [place] [address] * (ABNORMAL) TSH (05/09/2019 11:49 AM EST) Thyroid Stimulating Hormone 5.28(H) 0.27 - 4.20 mcIU/mL [facility] Blood specimen (specimen) 05/09/2019 11:49 AM EST 05/09/2019 11:55 AM EST Narrative Resulting Agency Comment Spec In Lab Mickey Alejandra MD CHEMISTRY ORDERABLE S Performing Organization Address City/[facility]/ZIP Co de Phone Number [facility] [place] [address] documented in this encounter Visit Diagnoses Diagnosis Thyroid nodule Nontoxic uninodular goiter documented in this encounter Care Teams Cafe Aide Relationship Specialty Start Date End Date Antonella Lucas PA [address] [place] [address] PCP - General Family Medicine 05/06/17 11/01/19 documented as of this encounter
--- OUTSIDE RECORDS SUMMARY | 2023-12-04 00:37 | XMS_ITS | Encounter Summary ---
Author Organization [facility] [place] [address] Care Team Providers Care Green Feed Attendant Name Role Phone Unknown Primary Care Provider Unavailabl e Encounter Details Date Type Department Care Team (Late st Contact Info) Description 12/13/2019 Orders Only Cardiology at [address] [phone] Shavon Dorman, RN Research study patient Social [...] (12/20/2019 8:20 AM EDT) Research Venipuncture Drawn [facility] Blood specimen (specimen) 12/20/2019 8:20 AM EDT 12/20/2019 8:37 AM EDT Narrative Resulting Agency Comment Spec In Lab Marlo Keith MD CHEMISTRY ORDERABL ES [facility] [place] [address] documented in this encounter Visit Diagnoses Diagnosis Research study patient Reserved for inherently not codable concepts WITHOUT codable children documented in this encounter Care Teams Green Feed Attendant Relationship Specialty Start Date End Date Unknown None PCP - General 11/02/19 12/19/19 documented as of this encounter
--- OUTSIDE RECORDS SUMMARY | 2023-12-04 00:37 | XMS_ITS | Encounter Summary ---
Author Organization [facility] Address One [facility] [place] [address] Care Team Providers Care Service Clerk Name Role Phone Antonella Lucas Primary Care Provider +1- [phone] Encounter Details Date Type Department Care Team (Latest Contact Info) Description 01/25/2019 12:05 PM EST - 01/25/2019 12:16 PM [facility] Encounter XRay at [address] [place] [address] Louis De La O MD S/P CABG x 2 Discharge Disposition: Home [...] status documented in this encounter Care Teams Service Clerk Relationship Specialty Start Date End Date Antonella Lucas PA [address] [place] [address] PCP - General Family Medicine 05/06/17 11/01/19 documented as of this encounter
--- OUTSIDE RECORDS SUMMARY | 2023-12-04 00:37 | XMS_ITS | Encounter Summary ---
Author Organization [facility] Address [facility] [place] [address] Care Team Providers Care Loop Machine Operator Name Role Phone Antonella Lucas Primary Care Provider +1- [phone] Reason for Visit * Reason Comments Referral Nodule * Consultation (Routine) - Closed Specialty Diagnoses / Procedures Referred By Nataliia hurt Referred To Contact Endocrinology Diagnoses Nontoxic single thyroid nodule THYROID NODULE Antonella Lucas PA [address] [place] [address] [facility] [address] [place] [phone] Referral ID Status Reason Start Date Expiration Date V isits Requested Visits Authorized [id number] Closed Consult, [facility] PCP Updated and/or Approved 05/03/2019 05/02/2020 1 1 Encounter Details Date Type Department Care Team (Late st Contact Info) Description 05/09/2019 1:00 PM EST Office [place] [address] Mickey Alejandra MD [facility] [place] [address] Thyroid nodule; Hypothyroidism, unspecified type [...] Get blood drawn in 6 weeks at [facility] for TSH documented in this encounter Progress [...] present on a CT scan done at [facility] earlier in 2018 in the setting of [...] by Louis De La O MD at [facility] MAIN OR ??? PRO CABG, ARTERY-VEIN, SINGLE N/A 12/23/2018 @CABG, VENOUS & ARTERIAL GRAFT;SINGLE VEIN GRAFT (WRVU 3.61) performed by Louis De La O MD at [facility] MA[facility] ??? PRO ENDOSCOPY W/VIDEO-ASST VEIN HARVEST, CABG N/A 12/23/2018 ENDOSCOPIC HARVEST VEIN(S) FOR CABG (WRVU 0.31) performed by Louis De La O MD at [facility] MAIN OR Review of Systems: As described [...] Office Visit from 05/09/2019 in Endocrinology at [facility] Office Visit from 03/22/2019 in Cardiac Surgery at [facility] Weight 114.9 kg (253 lb 4.8 oz) [...] to contact me. Sincerely, Mickey Alejandra MD Patient Care Nursing Assistantwasher hand Endocrinology Section [facility] * Mickey Alejandra MD - 05/09/2019 1:00 PM EST ENDOCRINOLOGY THYROID ULTRASOUND REPORT Patient:Bear Gamboa, [id number] Date of exam: 05/09/2019 Indication: concern for thyroid nodule on CT Comparison: no prior US in system Performed by: Mickey Alejandra MD Real time images of the thyroid gland were obtained using a [employer]spring[employer] US machine. All measurements are given as [...] Stimulating Hormone 5.28(H) 0.27 - 4.20 mcIU/mL [facility] Blood specimen (specimen) 05/09/2019 11:49 AM EST 05/09/2019 11:55 AM EST Narrative Resulting Agency Comment Spec In Lab Mickey Alejandra MD CHEMISTRY ORDERABLE S [facility] [place] [address] documented in this encounter Visit Diagnoses Diagnosis Thyroid nodule Nontoxic uninodular goiter Hypothyroidism, unspecified type documented in this encounter Care Teams Loop Machine Operator Relationship Specialty Start Date End Date Antonella Lucas PA [address] [place] [address] PCP - General Family Medicine 05/06/17 11/01/19 documented as of this encounter
--- OUTSIDE RECORDS SUMMARY | 2023-12-04 00:37 | XMS_ITS | Encounter Summary ---
[place] [address] Care Team Providers Care Supervisor Research Shop Name Role Phone Antonella Lucas Primary Care Provider +1- [phone] Encounter Details Date Type Department Care Team (Latest Contact Info) Description 01/25/2019 12:00 PM EST Laboratory Appointment Lab [address] [place] [address] ASCVD (arteriosclerotic cardiovascular disease) Social History Tobacco [...] (01/25/2019 11:54 AM EST) Research Venipuncture Drawn [facility] Blood specimen (specimen) 01/25/2019 11:54 AM EST 01/25/2019 12:05 PM EST Narrative Resulting Agency Comment Spec In Lab Louis De La O MD CHEMISTRY ORDERABLE S Performing Organization Address City/State/[place] Co de Phone Number [facility] [place] [address] documented in this encounter Visit Diagnoses Diagnosis ASCVD (arteriosclerotic cardiovascular disease) Unspecified cardiovascular disease documented in this encounter Care Teams Supervisor Research Shop Relationship Specialty Start Date End Date Antonella Lucas PA [address] [place] [address] PCP - General Family Medicine 05/06/17 11/01/19 documented as of this encounter
--- OUTSIDE RECORDS SUMMARY | 2023-12-04 00:37 | XMS_ITS | Encounter Summary ---
[place] [address] Care Team Providers Care Manager Of Purchasing Name Role Phone Tejas Johnson Primary Care Provider +1- [phone] Encounter Details Date Type Department Care Team (Late st Contact Info) Description 01/25/2019 1:40 PM EST Office [place] [address] Louis De La O MD S/P CABG [...] Post-OP Note: BART Miller [address] [place] [address] TEJAS JOHNSON Mr. Gamboa returns to clinic [...] CIS - Coronary artery disease inferior [facility] 02/23/09: proximal RCA, INTERTYPE OPERATOR LAD. BMS to prox. RCA, BMS [...] by Louis De La O MD at [facility] MAIN OR ??? PRO CABG, ARTERY-VEIN, SINGLE N/A 12/23/2018 @CABG, VENOUS & ARTERIAL GRAFT;SINGLE VEIN GRAFT (WRVU 3.61) performed by Louis De La O MD at [facility] MAIN OR ??? PRO ENDOSCOPY W/VIDEO-ASST VEIN HARVEST, CABG N/A 12/23/2018 ENDOSCOPIC HARVEST VEIN(S) FOR CABG (WRVU 0.31) performed by Louis De La O MD at [facility] MAIN OR Outpatient Medications Marked as Taking [...] (Bezet) 420 ms MUSE SYSTEM Calculated P [employer] [place] 57 degrees MUSE SYSTEM Calculated R [employer] [place] 6 degrees MUSE SYSTEM Calculated T [employer] [place] 144 degrees MUSE SYSTEM INTERPRETATION Sinus rhythm [...] status documented in this encounter Care Teams Manager Of Purchasing Relationship Specialty Start Date End Date Tejas Johnson PA [address] [place] [address] PCP - General Family Medicine 05/06/17 11/01/19 documented as of this encounter
--- OUTSIDE RECORDS SUMMARY | 2023-12-04 00:37 | XMS_ITS | Encounter Summary ---
Author Organization [facility] [place] [address] Care Team Providers Care Animal Attendant Name Role Phone Antonella Lucas Primary Care Provider +1- [phone] Encounter Details Date Type Department Care Team (Late st Contact Info) Description 02/03/2019 Orders Only Cardiology at [address] [address] Shavon Dorman, RN Research study patient Social [...] CHEMISTRY ORDERABL ES [facility] [place] [address] * Research Venipuncture (02/22/2019 10:51 AM EST) Research Venipuncture Drawn [facility] Blood specimen (specimen) 02/22/2019 10:51 AM EST 02/22/2019 11:00 AM EST Narrative Resulting Agency Comment Spec In Lab Marlo Keith MD CHEMISTRY ORDERABL ES [facility] [place] [address] documented in this encounter Visit Diagnoses Diagnosis Research study patient Reserved for inherently not codable concepts WITHOUT codable children documented in this encounter Care Teams Animal Attendant Relationship Specialty Start Date End Date Antonella Lucas PA [address] [place] [address] PCP - General Family Medicine 05/06/17 11/01/19 documented as of this encounter
--- OUTSIDE RECORDS SUMMARY | 2023-12-04 00:37 | XMS_ITS | Encounter Summary ---
Author Organization [facility] [place] [address] Care Team Providers Care Orthopedic Podiatrist Name Role Phone Lance Cathiedayna Luly ARRIAGA Primary Care Provider +1- [phone] Encounter Details Date Type Department Care Team (Latest Contact Info) Description 03/24/2019 Unscheduled Encounter Cardiology at [address] [address] Keven Dyson, RN Research study patient Social [...] as pat of his participation in the [id number] trial. All protocol driven labs were collected [...] children documented in this encounter Care Teams Orthopedic Podiatrist Relationship Specialty Start Date End Date Antonella Lucas PA [address] [place] [address] PCP - General Family Medicine 05/06/17 11/01/19 documented as of this encounter
--- OUTSIDE RECORDS SUMMARY | 2023-12-04 00:37 | XMS_ITS | Encounter Summary ---
Author Organization [facility] Address [facility] [place] [address] Care Team Providers Care Coat Operator Insulator Name Role Phone Antonella Lucas Primary Care Provider +1- [phone] Reason for Referral * Diagnostic Test (Routine) - Closed Specialty Diagnoses / Procedures Referred By Contac t Referred To Contact Radiology Diagnoses S/P CABG x [address] Chest wo Contrast (Generic) Luz Myles PA [facility] [place] [address] [facility] [place] [address] Referral ID Status Reason Start Date Expiration Date V isits Requested Visits Authorized [id number] Closed Specialty Service Requested 12/27/2018 12/27/2019 1 1 Reason for Visit * Diagnostic Test (Routine) - Closed Specialty Diagnoses / Procedures Referred By Contac t Referred To Contact Radiology Diagnoses S/P CABG x [address] Chest wo Contrast (Generic) Luz Myles PA [facility] [place] [address] [facility] [place] [address] Referral ID Status Reason Start Date Expiration Date V isits Requested Visits Authorized [id number] Closed Specialty Service Requested 12/27/2018 12/27/2019 1 1 Encounter Details Date Type Department Care Team (Latest Contact Info) Description 01/25/2019 12:17 PM EST - 01/25/2019 11:59 PM EST Hospital Encounter CT Scan at [facility] [place] [address] Louis De La O MD S/P CABG [...] status documented in this encounter Care Teams Coat Operator Insulator Relationship Specialty Start Date End Date Antonella Lucas PA [address] [place] [address] PCP - General Family Medicine 05/06/17 11/01/19 documented as of this encounter
--- OUTSIDE RECORDS SUMMARY | 2023-12-04 00:37 | XMS_ITS | Encounter Summary ---
Author Organization [facility] [place] [address] Care Team Providers Care Powertrain Engineer Name Role Phone Lance Antonella ARRIAGA Primary Care Provider +1- [phone] Encounter Details Date Type Department Care Team (Late st Contact Info) Description 03/24/2019 Orders Only Cardiology at [address] [address] Keven Dyson, RN Research study patient Social [...] (03/24/2019 8:40 AM EST) Research Venipuncture Drawn [facility] Blood specimen (specimen) 03/24/2019 8:40 AM EST 03/24/2019 8:57 AM EST Narrative Resulting Agency Comment Spec In Lab Marlo Keith MD CHEMISTRY ORDERABL ES [facility] [place] [address] documented in this encounter Visit Diagnoses Diagnosis Research study patient Reserved for inherently not codable concepts WITHOUT codable children documented in this encounter Care Teams Powertrain Engineer Relationship Specialty Start Date End Date Antonella Lucas PA [address] [place] [address] PCP - General Family Medicine 05/06/17 11/01/19 documented as of this encounter
--- OUTSIDE RECORDS SUMMARY | 2023-12-04 00:37 | XMS_ITS | Encounter Summary ---
Author Organization [facility] [place] [address] Care Team Providers Care Tread Booker Name Role Phone Antonella Lucas Primary Care Provider +1- [phone] Encounter Details Date Type Department Care Team (Late st Contact Info) Description 12/20/2019 8:00 AM EDT Office Visit Cardiology at [address] [address] Shavon Dorman RN Research study patient Social [...] INJURY (DANIELA) FOLLOWING CARDIAC SURGERY STUDY NUMBER: [id number] Phase 3 for Prevention of MAKE in Subjects at High Risk for DANIELA Following Cardiac Surgery Principle Transport Nurse: Marlo Keith MD, MS I had the pleasure of meeting with Bear Gamboa in the clinic today. The purpose of the visit isin follow up at the 1 year time-point for participation in the [id number] clinical trial. Ongoing adverse events and interim [...] the end of their participation in the [id number] clinical trial. Current Outpatient Medications: ??? levothyroxine [...] kg/m?? Central Labs: drawn and sent to [facility] for processing/shipping. documented in this encounter Plan of Treatment Not on file documented as of this encounter Visit Diagnoses Diagnosis Research study patient Reserved for inherently not codable concepts WITHOUT codable children documented in this encounter Care Teams Tread Booker Relationship Specialty Start Date End Date Antonella Lucas PA [address] [place] [address] PCP - General Family Medicine 12/20/19 documented as of this encounter
--- OUTSIDE RECORDS SUMMARY | 2023-12-04 00:37 | XMS_ITS | Referral Summary ---
Author Organization [facility] Address [address] [place] [address] Care Team Providers Care Schedule Maker Name Role Phone Antonella Lucas PA-C Primary [...] of Treatment Not on file Care Teams Schedule Maker Relationship Specialty Start Date End Date Antonella Lucas PA-C [address] [place] [id number] PCP - General 01/28/22
--- OUTSIDE RECORDS SUMMARY | 2023-12-04 00:38 | XMS_ITS | Encounter Summary ---
Author Organization [facility] [place] [address] Care Team Providers Care Flight Operations Dispatch Clerk Name Role Phone Antonella Lucas Primary Care Provider +1- [phone] Encounter Details Date Type Department Care Team (Late st Contact Info) Description 12/21/2018 Orders Only Cardiology at [address] [address] Shavon Dorman, RN ASCVD (arteriosclerotic cardiovascular disease) [...] Adames ? (Age): 1950(68y) Med Rec#: ? [id number] ?Sex: ?M ? Site Loc: ? Ht / Wt: ??(cm)/ (kg) ? Pt. Loc: ? Study Date: ?? 12/23/2018 ?Pt. Type: Tape: ? Reading: Vira Bañuelos ([id number]) Professor Of Kinesiology: SOLOMON Diagnosis: SUMMARY: 1. Intraoperative DELISA performed [...] 12/24/2018 15:21:53 Images reviewed and interpretation verified [facility] Cardiac Ultrasound Laboratory Procedure Note Vira Bañuelos MD - 12/24/2018 Procedure: Transesophageal Echocardiogram Patient: POLO FUENTES(Age): 1950(68y) [facility] Rec#: [id number] Sex: M Site Loc: Ht / Wt: (cm)/ (kg) Pt. Loc: Study Date: 12/23/2018 Pt. Type: Tape: Reading: Vira Bañuelos ([id number]) Professor Of Kinesiology: SOLOMON Diagnosis: SUMMARY: 1. Intraoperative DELISA performed [...] 12/24/2018 15:21:53 Images reviewed and interpretation verified [facility] Cardiac Ultrasound Laboratory Unknown ECHO ORDERABLES documented in this encounter Visit Diagnoses Diagnosis ASCVD (arteriosclerotic cardiovascular disease) Unspecified cardiovascular disease documented in this encounter Care Teams Flight Operations Dispatch Clerk Relationship Specialty Start Date End Date Antonella Lucas PA [address] [place] [address] PCP - General Family Medicine 05/06/17 11/01/19 documented as of this encounter
--- OUTSIDE RECORDS SUMMARY | 2023-12-04 00:38 | XMS_ITS | Encounter Summary ---
Author Organization [facility] [place] [address] Care Team Providers Care Logistics Account Manager Name Role Phone Cleomarisamignon Cathiedayna Luly ARRIAGA Primary Care Provider +1- [phone] Encounter Details Date Type Department Care Team (Latest Contact Info) Description 12/21/2018 Unscheduled Encounter Cardiology at [address] [address] Shavon Dorman RN ASCVD (arteriosclerotic cardiovascular disease) [...] INJURY (DANIELA) FOLLOWING CARDIAC SURGERY STUDY NUMBER: [id number] Phase 3 for Prevention of MAKE in Subjects at High Risk for DANIELA Following Cardiac Surgery Principle Digital Analytics Manager: Marlo Keith MD, MS I had the pleasure of meeting with Bear Gamboa to review the [id number] trial. Bear Gamboa was accompanied by two friends. Following the determination that this potential participant did not haveany obvious evidence of clinical exclusion to the QRK trial, the subject was provided with a written informed consent version POW300.2, Approval date and was given adequate time for review of the consent. The purpose, procedures, risk, potential benefits of the study, as well as alternatives to participation were reviewed and questions were answered. The subject denies participation in concurrent interventional drug or device trials. The subject was given the opportunity to discuss the investigational nature of the product with the electrolysis investigator. The subject return verbalizes understanding that participation [...] disease documented in this encounter Care Teams Logistics Account Manager Relationship Specialty Start Date End Date Antonella Lucas PA [address] [place] [address] PCP - General Family Medicine 05/06/17 11/01/19 documented as of this encounter
--- OUTSIDE RECORDS SUMMARY | 2023-12-04 00:38 | XMS_ITS | Encounter Summary ---
Author Organization [facility] [place] [address] Care Team Providers Care Surgical Assistant Certified Name Role Phone Antonella Lucas Primary Care Provider [phone]- [phone] Reason for Visit * Auth/Cert Specialty Diagnoses [...] Expiration Date Visits Re quested Visits Authorized [id number] 1 1 Encounter Details Date Type Department Care Team ([facility] Contact Info) Description 12/23/2018 7:30 AM EDT - 12/23/2018 11:16 AM EDT Surgery [place] [address] Louis De La O MD @CABG, USING ARTERIAL GRAFT;SINGLE ARTERIAL GRAFT (WRVU [...] study as scheduled. Inpatient Provider Contact Information: [facility] Section of Cardiac Surgery [facility] [address] FAX [phone] Discharge Diagnoses (Hospital Problems) Primary Diagnoses: CAD [...] by Louis De La O MD at [facility] MAIN OR ??? PRO CABG, ARTERY-VEIN, SINGLE N/A 12/23/2018 @CABG, VENOUS & ARTERIAL GRAFT;SINGLE VEIN GRAFT (WRVU 3.61) performed by Louis De La O MD at [facility] MAIN OR ??? PRO ENDOSCOPY W/VIDEO-ASST VEIN HARVEST, CABG N/A 12/23/2018 ENDOSCOPIC HARVEST VEIN(S) FOR CABG (WRVU 0.31) performed by Louis De La O MD at [facility] MAIN OR Prior To Admission Medications No [...] s/p CABGx2 Bear Gamboa was admitted to [facility] on 12/23/2018 via the Same Day [...] your chest incision. Your surgeon, Dr. Louis D eLa O and/or the Cardiac Surgery Physician Account Executive Software Sales Team may be reached at . Weight: [...] Dr. Louis Boston. You may use a [place] Track or treadmill but avoid any pulling [...] friends, go to a movie, go to taoism, etc. Heavy activities: No hunting, skiing, jogging, [...] should resume a low fat, low cholesterol, [employer] Diet/Diabetic diet. Driving: No driving [...] the outpatient Phase 2 Cardiac Rehabilitation at [facility] . The patient agrees to a referral to this program. The referral will be sent at discharge and the patient should be contacted by the Program within 1- 2 weeks from discharge. 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 Other pertinent information: Stat read required?: Does patient require sedation?: GA rationale: Date of injury if applicable: Requested Time: EKG 12 Lead [95010 CPT(R)] 01/27/2019 (Approximate) 07/29/2019 Process Instructions: Scheduling Instructions: Questions: Which DH location will this be performed?: [place] Is a rhythm strip needed?: No XR Chest PA & Lateral (Generic) [54012 82512 Custom] 01/27/2019 (Approximate) 07/29/2019 Process Instructions: Scheduling Instructions: Questions: Where will study be performed?: [facility] Radiology Portable exam?: Reason for exam and clinical history: s/p CABG Other pertinent information: Stat read required?: Date of injury if applicable: Requested Time: Referral to Cardiac Rehab [UME333 Custom] As directed Process Instructions: If no progress note charted, please enter Clinical details in comments. Scheduling Instructions: Questions: My question or request is: Pt will participate in cardiac rehab@ [facility] Referral to Home Health - at DISCHARGE [XVD5755 CPT(R)] As directed Process Instructions: Scheduling Instructions: Comments: DOCUMENTATION FOR VNA SERVICES (INCLUDING THOSE PATIENTS WITH MEDICARE COVERAGE REQUIRING HOME VNA SERVICES AND/OR HOSPICE SERVICES) PATIENT'S LOCATION: Bear Gamboa [address] [place] [address] [address] [facility] [address] Forensic Sergeant's Name: india Pichardo In discussion with the attending physician, it is certified that this patient is under their care and that they, or a Nurse Practitioner, or Physician Account Executive Software Sales who is working directly with them, hada [...] for services as follows: HOME HEALTH AGENCY: [facility]. PHONE: [phone] FAX: [phone] RN orders: Cardiopulmonary assessment, incisional assessment, assess [...] issues please call the Cardiac SurgeryOffice at [phone] FOR MEDICARE ONLY: (please delete this section [...] noted. Questions: Agency name and contact information: [facility] Patient location post discharge: home What services are requested: Registered Nurse Physical Therapy Start date: Responsible MD post discharge contact info: PCP Arrangements for VNA/home care: As above. VN RN OR PCP TO PLEASE REMOVE CHEST TUBE SUTURES ON OR AFTER 01/02/19 Signed: BART James [facility] Section of Cardiac Surgery [facility] [address] FAX [phone] Date: 12/27/2018 CC: BART Miller Anil K, MD [address] [place] [phone] documented in this encounter Discharge Instructions * [...] La O and/or the Cardiac Surgery Physician Account Executive Software Sales Team may be reached at . ?? [...] Dr. Louis Boston. You may use a [place] Track or treadmill but avoid any pulling [...] friends, go to a movie, go to taoism, etc. ?? Heavy activities: No hunting, skiing, jogging, snow shoveling, snowmobiling, lawn mowing, swimming,golf or tennis until after your return appointment with the surgeon. Do not ride motorcycles, [employer]'stractors or horses. Avoid the use of a [...] should resume a low fat, low cholesterol, [employer] Heart [employer] Diet/Diabetic diet. ?? Driving: No [...] the outpatient Phase 2 Cardiac Rehabilitation at [facility]??Hospital . ?? The patient agrees to [...] oz) -- Weight Source Standing Scale -- [id number]: Mr. Gamboa is progressing well and is expected to be discharged today. Central labs were drawn and sent to [facility] for processing/shipping. He was asked some [...] facility Urine Output (mL) [phone] [id number] study: the above documents Mr. Gamboa's urine output from arrival to [facility] to over 24 hourspost study medication administration. [...] oz) -- Weight Source Standing Scale -- [id number] study: Central labs were drawn and sent to [facility] for processing/shipping. * Shavon Dunne RN [...] of chest tube output as required by VKZ132 study. * Aidan Valenzuela PA - 12/24/2018 [...] (L/min) -- 2 L/min O2 Device -- IA Height and Weight Weight 119.7 kg (263 lb 14.3 oz) -- Weight Source Standing Scale -- BP at 0800 was 112/53. Central labs were drawn and sent to [facility] for processing/shipping. * Aidan Valenzuela PA [...] INJURY (DANIELA) FOLLOWING CARDIAC SURGERY STUDY NUMBER: [id number] Phase 3 for Prevention of MAKE in Subjects at High Risk for DANIELA Following Cardiac Surgery Principle Front Desk Clerk: Marlo Keith MD, MS Following informed consent and confirmation that the subject met all inclusion criteria and that noexclusion criteria were met, the subject was randomized via [employer] per protocol. Subject eligibility, hemodynamic stability, and [...] The above represents baseline/Day-1 data for the AWX434 study; data collected in [facility] prior to surgery. Central labs were [...] for the evaluation of CAD. ?? HPI: Baer Gamboa is a 68 y.o. year old [...] - Coronary artery disease ? inferior [facility]I [facility] 02/23/09: proximal RCA, BRIQUETTER OPERATOR LAD. BMS to prox. RCA, BMS [...] None ? Gets together: None ? Attends nondenominational service: None ? Active member of club [...] - Coronary artery disease ? inferior [facility]I [facility] 02/23/09: proximal RCA, BRIQUETTER OPERATOR LAD. BMS to prox. RCA, BMS [...] None ? Gets together: None ? Attends nondenominational service: None ? Active member of club [...] Smyth RN - 12/27/2018 10:50 AM EDT [facility] Bear Gamboa was seen today regarding participation in the outpatient Phase 2 Cardiac Rehabilitation at [facility] . The patient agrees to a [...] by Louis De La O MD at [facility] MAIN OR ??? PRO CABG, ARTERY-VEIN, SINGLE N/A 12/23/2018 @CABG, VENOUS & ARTERIAL GRAFT;SINGLE VEIN GRAFT (WRVU 3.61) performed by Louis De La O MD at [facility] MAIN OR ??? PRO ENDOSCOPY W/VIDEO-ASST VEIN HARVEST, CABG N/A 12/23/2018 ENDOSCOPIC HARVEST VEIN(S) FOR CABG (WRVU 0.31) performed by Louis De La O MD at [facility] MAIN OR Social History: Home set-up: lives [...] outlinedin this evaluation. Time IN / OUT: 4966-3164 Total Evaluation Minutes, Physical Therapy: 15(eval) Jazmin Aleman, PT, DPT Pager: [phone] Physical Therapy Inpatient Rehabilitation Department * Plan [...] Ongoing (Interventions Implemented as Appropriate) 12/24/18 1441 12/24/18 1933 Coping/Psychosocial Plan Of Care Reviewed With -- patient;spouse;daughter Plan of Care Review Progress improving -- Goal: Individualization & Mutuality Outcome: Ongoing (Interventions Implemented as Appropriate) 12/23/18 1714 12/24/18 1150 Individualization Patient Specific Preferences bmabi Sifuentes -- Mutuality/Individual Preferences What Anxieties, Fears or [...] Outcome: Ongoing (Interventions Implemented as Appropriate) 12/24/18 193 Cardiac Surgery Problems Assessed (Cardiac Surgery) all [...] Office of Care Management Initial Assessment Jazmin Y Guseva, RN reviewed record and discussed patient with [...] Hospitalizations Within the Past 30 Days: no [facility] admits in last 30 days. Anticipated Length Of Stay (If known): 5-7 days Current Decision-Making Capacity: Patient is A&Ox4 and able to make all medical decisions Advance Care Planning: Full Code Not in EPIC. Would like to complete during this hospitalization, STOCK SPECULATOR notified Current Coping/Education/Information Needs: Current coping questions and concerns have been addressed. Current Functional Ability: assist of staff Functional Status Prior to Admission: independent with ADLs, driving, works part-time. Home Environment: lives in 3 level house, stays mainly on 1st level.Has bedroom and bathroom on first level. 3 steps to enter no railings [address] [facility] [address] Social & Family Supports/Community Resources: lives alone. [...] N/AMedicaid [place] Prescription Coverage: Yes Preferred [facility] [place], [place] - [address] Portal to Registered [facility] Sites [address] [facility] [address] [id number] - [place], [place] - [address] AT [address] [facility] [address] [facility] [address] Other: none Primary Care Provider: BART Miller [phone] Patient/Caregiver Goals of Treatment: return to previous level of function Potential Needs for Transition of Care: Discussed with patient and family levels of rehab includingSNF, swing, acute and VNA home health and hospice care also discussed. Discussed need to accept first bed available when patient is medically ready. Rehab/SNF: TBD [facility]: [facility] p[facility] for RN/PT DME: tbd Transportation: car by ssamuel Pichardo Other: none Anticipated Barriers to Discharge/Special Considerations: none vs anticipated barriers to arise as hospitalization continues. Assessment: patient is admitted to CT service for CABG, final discharge disposition tbd by hospitalcourse and PT evaluation, VNA referral pended for RN/PT. The patient/risk control field representative has been provided a list of Home Health Agencies/DME vendors which servetheir preferred geographic area. A letter describing our affiliations was reviewed with them and they were educated about their right to choose where referrals are placed. Patient requests referral to [facility]. PHONE: [phone] FAX: [phone] Expected date of discharge: TBD Referral routed to the Animal Cruelty Investigator for matching with agency/vendor and to provide any required information. Plan: A member of the Care Management team will continue to monitor progress, follow for continuityof care and assist with transition of care planning. Jazmin Jose RN Nurse Personal Fitness Manager Pager [phone] * OR Attestation - Louis De La O MD - 12/23/2018 2:03 PM EDT Attestation: Case Date: 12/23/2018 I performed this procedure without the involvement of a resident. Louis De La O MD 12/28/2018 * Op Note - Louis De La O MD - 12/23/2018 2:03 PM EDT 12/28/2018 Bear Gamboa 1950 [id number] Preoperative Diagnosis: Coronary artery disease Stable Angina [...] the medial aspect of the knee. The Renovagen XB7 system was used to dissect out [...] applied. The patient was transported to the [facility] on epi and levo. All counts were correct. * Brief Op Note - Louis De La O MD - 12/23/2018 2:03 PM EDT Brief Operative Note Patient Name: Bear Gamboa : [id number] MR#: [id number] Case Date: 12/23/2018 Surgeon: Surgeon(s) and Role: [...] 12/24/2018 4:05 AM EDT BASIC METABOLIC PANEL Routine 12/24/2018 4:05 AM EDT POCT GLUCOSE [...] Routine 12/23/2018 2:44 PM EDT BLOOD GAS ARTERIAL POC Routine 2:39 PM EDT POCT GLUCOSE Routine 12/23/2018 1:53 PM EDT BLOOD GAS ARTERIAL POC Routine 12:43 PM EDT EKG 12-LEAD STAT 12/23/2018 12:06 PM EDT S/P CABG x 2 XR CHEST ONE VIEW STAT 12/23/2018 12: 01 PM EDT LUNG RECRUITMENT MANEUVER Routine 12/23/2018 11:59 AM EDT BLOOD GAS ARTERIAL POC Routine 9 11:47 AM EDT HC HEMOGLOBIN, BLOOD STAT 12/23/2018 10:30 AM EDT HC PARTIAL THROMBOPLASTIN TIME STAT 12/23/2018 10:30 AM EDT HC PROTHROMBIN TIME STAT 12/23/2018 1 0:30 AM EDT HC FIBRINOGEN TITER STAT 12/23/2018 1 0:30 AM EDT BLOOD GAS ARTERIAL POC Routine 9 10:26 AM EDT PREPARE PLATELETS, APHERESIS STAT 12/23/2018 10:25 AM EDT @CABG,VENOUS & ARTERIAL GRAFT;SINGLE VEIN GRAFT Routine 12/23/2018 9:46 AM EDT Coronary artery disease of [place] heart with stable angina pectoris, unspecified vessel or lesion type BLOOD GAS ARTERIAL POC Routine 9 9:40 AM EDT HC HEMOGLOBIN, BLOOD STAT 12/23/2018 9:35 AM EDT HC FIBRINOGEN TITER STAT 12/23/2018 9 :35 AM EDT HC PLATELET COUNT STAT 12/23/2018 9:3 5 AM EDT BLOOD GAS ARTERIAL POC Routine 9 9:11 AM EDT BLOOD GAS VENOUS POC Routine 12/23/2018 9:11 AM EDT BLOOD GAS ARTERIAL POC Routine 9 8:15 AM EDT Cabg, Artery-Vein, Single ([id number]) 12/23/2018 7:31 AM EDT Coronary artery disease of [place] heart with stable angina pectoris, unspecified vessel or lesion type Endoscopy W/Video-Asst Vein [place], Cabg ([id number]) 12/23/2018 7:31 AM EDT Coronary artery disease of [place] heart with stable angina pectoris, unspecified vessel or lesion type Cabg, Arterial, Single ([id number]) 12/23/2018 7:31 AM EDT Coronary artery disease of [place] heart with stable angina pectoris, unspecified vessel [...] (Bezet) 420 ms MUSE SYSTEM Calculated P [place] 57 degrees MUSE SYSTEM Calculated R [place] 6 degrees MUSE SYSTEM Calculated T [place] 144 degrees MUSE SYSTEM INTERPRETATION Sinus rhythm with Blocked Premature atrial complexes , possible ??Inferior infarct (cited on or before 23-FEB-2009) T wave abnormality, consider anterolateral ischemia Abnormal ECG When compared with ECG of 23-DEC-2018 12:06, Significant changes have occurred Confirmed by Marli Uribe ([id number]) on 01/26/2019 10:13:16 AM MUSE SYSTEM 01/25/2019 [...] below. ? Electronically signed by: Gladys Leslie [facility] ([phone]), at 01/25/2019 3:01 PM Narrative 01/25/2019 3:01 [...] the number below. ? Electronically signed by: ARIA Bray [facility] ([phone]), at 01/25/2019 12:57 PM Narrative 01/25/2019 12:57 [...] number below. Electronically signed by: Gladys Leslie [facility]([phone]), at 01/25/2019 12:57 PM Louis De La O MD IMG DX ORDERABLES * POCT Glucose (12/27/2018 11:47 AM EDT) Glucose, POC 185 65 - 199 mg/dL [facility] Comment: Supplemental ranges: <140 mg/dL before meals <180 mg/dL all other times of the day Blood specimen (specimen) 12/27/2018 11:47 AM EDT 12/27/2018 11:47 AM EDT Louis De La O MD POINT OF CARE TEST ORDERABLES Performing Organization Address [facility] Co de Phone Number [facility] [place] [address] * POCT Glucose (12/27/2018 7:37 AM EDT) Glucose, POC 163 65 - 199 mg/dL [facility] Comment: Supplemental ranges: <140 mg/dL before meals <180 mg/dL all other times of the day Blood specimen (specimen) 12/27/2018 7:37 AM EDT 12/27/2018 7:37 AM EDT Narrative Authorizing Provider Result Jr De La O MD POINT OF CARE TEST ORDERABLES Performing Organization Address City/[facility] Co de Phone Number [facility] [place] [address] * Potassium (12/27/2018 4:57 AM EDT) Potassium 3.9 3.5 - 5.0 mmol/L [facility] Comment: Please note: ??Patients with [...] MD CHEMISTRY ORDERABLE S Performing Organization Address [facility] Co de Phone Number [facility] [place] [address] * POCT Glucose (12/26/2018 4:44 PM EDT) Glucose, POC 170 65 - 199 mg/dL [facility] Comment: Supplemental ranges: <140 mg/dL before meals <180 mg/dL all other times of the day Blood specimen (specimen) 12/26/2018 4:44 PM EDT 12/26/2018 4:44 PM EDT Louis De La O MD POINT OF CARE TEST ORDERABLES Performing Organization Address [facility]/ZIP Co de Phone Number [facility] [place] [address] * XR Chest PA & Lateral (Generic) (12/26/2018 3:27 PM EDT) Anatomical Region Laterality Modality Chest N/A Digital Radiogra phy Impressions 12/26/2018 5:05 PM EDT Bibasilar atelectasis, and effusions. Cannot exclude consolidation. Thank you for letting us participate in the care of this patient. For questions regarding this report, please contact the number below. ? Electronically signed by: ARIA Seals [facility] ([phone]), at 12/26/2018 5:05 PM Narrative 12/26/2018 5:05 [...] number below. Electronically signed by: Carlitos Choi [facility]([phone]), at 12/26/2018 5:05 PM Louis De La O MD IMG DX ORDERABLES * (ABNORMAL) POCT Glucose (12/26/2018 11:57 AM EDT) Glucose, POC 221(H) 65 - 199 mg/dL [facility] Comment: Supplemental ranges: <140 mg/dL before meals <180 mg/dL all other times of the day Blood specimen (specimen) 12/26/2018 11:57 AM EDT 12/26/2018 11:57 AM EDT Louis De La O MD POINT OF CARE TEST ORDERABLES Performing Organization Address City/[facility]/ZIP Co de Phone Number [facility] [place] [address] * POCT Glucose (12/26/2018 8:00 AM EDT) Glucose, POC 159 65 - 199 mg/dL [facility] Comment: Supplemental ranges: <140 mg/dL before meals <180 mg/dL all other times of the day Blood specimen (specimen) 12/26/2018 8:00 AM EDT 12/26/2018 8:00 AM EDT Louis De La O MD POINT OF CARE TEST ORDERABLES Performing Organization Address City/[facility]/ZIP Co de Phone Number [facility] [place] [address] * (ABNORMAL) Differential, Automated (12/26/2018 4:52 AM EDT) Neutrophil % 84.5 % [facility] Neutrophil Absolute 16.12(H) 1.70 - 6.10 x10(3)/mc L [facility] Lymph % 5.2 % [facility] Lymphocytes Abs 1.0 0.9 - 3.2 x10(3)/mc L [facility] Monocyte % 8.8 % [facility] Monocyte Abs 1.7(H) 0.3 - 0.9 x10(3)/[facility] Eos % 0.2 % [facility] Eosinophils Abs 0.0 0.0 - 0.4 x10(3)/[facility] Basophil % 0.3 % [facility] Baso Absolute 0.1 0.0 - 0.1 x10(3)/[facility] Immature Gran % 1.00 % [facility] Comment: Immature granulocytes(IG's)percentage and absolute count will include metamyelocytes, myelocytes, and promyelocytes. Blood smears from CBCs yielding IG's will be scanned manually for concordance. If this scan disagrees with the automated IG or if promyelocytes are noted, a manual differential will be performed. Immature Gran Absolute 0.19(H) 0.00 - 0.04 x10(3)/[facility] Blood specimen (specimen) 12/26/2018 4:52 AM EDT 12/26/2018 5:11 AM EDT Narrative Resulting Agency Comment Spec In Lab Aidan ARRIAGA HEMATOLOGY ORDERABLE S [facility] [place] [address] * (ABNORMAL) Hemogram (12/26/2018 4:52 AM EDT) White Blood Cell 19.1(H) 4.0 - 9.5 x10(3)/[facility] Red Blood Cell 4.38(L) 4.58 - 5.54 x10(6)/[facility] Hemoglobin 13.0(L) 13.7 - 16.5 gm/dL [facility] Hematocrit 40.0(L) 40.5 - 48.5 % [facility] Mean Cell Volume 91.3 82.9 - 93.1 fL [facility] Mean Cell Hemoglobin 29.7 27.5 - 32.1 pg [facility] Mean Cell Hemoglobin Concentration 32.5 32.0 - 35.7 gm/dL [facility] Platelet 171 145 - 357 x10(3)/mc L [facility] RDW Standard Deviation 46.0(H) 36.0 - 45.0 fL [facility] RDW coefficient of variation 13.5 11.4 - 13.8 % [facility] Mean Platelet Volume 9.8 7.6 - 12.9 fL [facility] NRBC% auto 0.0 % [facility] NRBC Absolute 0.000 0.000 - 0.000 x10(3)/mc L [facility] Blood specimen (specimen) 12/26/2018 4:52 AM EDT 12/26/2018 5:11 AM EDT Narrative Resulting Agency Comment Spec In Lab Aidan ARRIAGA HEMATOLOGY ORDERABLE S [facility] [place] [address] * (ABNORMAL) Basic Metabolic Panel (non-fasting) (12/26/2018 4:52 AM EDT) Glucose 172 65 - 199 mg/dL [facility] Comment:Diabetes: >=200 mg/d L plus symptoms Blood Urea Nitrogen 21(H) 10 - 20 mg/dL [facility] Creatinine 1.34 0.80 - 1.50 mg/dL [facility] Sodium 133(L) 135 - 145 mmol/L [facility] Potassium 3.7 3.5 - 5.0 mmol/L [facility] Comment: Please note: ??Patients with WBC >100,000 may have falsely elevated Potassium levels. ??For accurate Potassium quantification in these patients send serum separator tube (gold top) for subsequent determinations. ??Contact the Clinical Chemistry Laboratory if there are any questions. Chloride 99 98 - 107 mmol/L [facility] Carbon Dioxide 22 22 - 31 mmol/L [facility] Anion Gap 12 5 - 15 mmol/L [facility] Calcium 8.6 8.5 - 10.5 mg/dL [facility] Est Glomerular Filtration Rate 55(L) >=60 mL/min/1. 73 m?? [facility] Comment: The eGFR was calculated using the CKD-EPI equation. As with all creatinine based estimates of kidney function, eGFR values calculated with the CKD-EPI equation are not accurate in patients with acute kidney failure, extremes of body mass or the acutely ill. [email or web address] eGFR 64 >=60 mL/min/1. 73 m?? [facility] LABORATORY Comment: The eGFR was calculated using the CKD-EPI equation. As with all creatinine based estimates of kidney function, eGFR values calculated with the CKD-EPI equation are not accurate in patients with acute kidney failure, extremes of body mass or the acutely ill. [email or web address] Blood specimen (specimen) 12/26/2018 4:52 AM EDT 12/26/2018 5:11 AM EDT Narrative Resulting Agency Comment Spec In Lab Louis De La O MD CHEMISTRY ORDERABLE S Performing Organization Address City/[facility]/ZIP Co de Phone Number [facility] [place] [address] * (ABNORMAL) POCT Glucose (12/25/2018 7:55 PM EDT) Glucose, POC 217(H) 65 - 199 mg/dL [facility] Comment: Supplemental ranges: <140 mg/dL before meals <180 mg/dL all other times of the day Blood specimen (specimen) 12/25/2018 7:55 PM EDT 12/25/2018 7:55 PM EDT Louis De La O MD POINT OF CARE TEST ORDERABLES [facility] [place] [address] * POCT Glucose (12/25/2018 3:35 PM EDT) Glucose, POC 170 65 - 199 mg/dL [facility] Comment: Supplemental ranges: <140 mg/dL before meals <180 mg/dL all other times of the day Blood specimen (specimen) 12/25/2018 3:35 PM EDT 12/25/2018 3:35 PM EDT Louis De La O MD POINT OF CARE TEST ORDERABLES [facility] [place] [address] * POCT Glucose (12/25/2018 11:21 AM EDT) Glucose, POC 196 65 - 199 mg/dL [facility] Comment: Supplemental ranges: <140 mg/dL before meals <180 mg/dL all other times of the day Blood specimen (specimen) 12/25/2018 11:21 AM EDT 12/25/2018 11:21 AM EDT Louis De La O MD POINT OF CARE TEST ORDERABLES [facility] [place] [address] * POCT Glucose (12/25/2018 7:50 AM EDT) Glucose, POC 164 65 - 199 mg/dL [facility] Comment: Supplemental ranges: <140 mg/dL before meals <180 mg/dL all other times of the day Blood specimen (specimen) 12/25/2018 7:50 AM EDT 12/25/2018 7:50 AM EDT Louis De La O MD POINT OF CARE TEST ORDERABLES [facility] [place] [address] * Potassium (12/25/2018 5:41 AM EDT) Potassium 4.1 3.5 - 5.0 mmol/L [facility] Comment: Please note: ??Patients with [...] MD CHEMISTRY ORDERABLE S Performing Organization Address [facility] Co de Phone Number [facility] [place] [address] * POCT Glucose (12/24/2018 7:54 PM EDT) Glucose, POC 175 65 - 199 mg/dL [facility] Comment: Supplemental ranges: <140 mg/dL before meals <180 mg/dL all other times of the day Blood specimen (specimen) 12/24/2018 7:54 PM EDT 12/24/2018 7:54 PM EDT Louis De La O MD POINT OF CARE TEST ORDERABLES Performing Organization Address [facility] Co de Phone Number [facility] [place] [address] * POCT Glucose (12/24/2018 4:18 PM EDT) Glucose, POC 189 65 - 199 mg/dL [facility] Comment: Supplemental ranges: <140 mg/dL before meals <180 mg/dL all other times of the day Blood specimen (specimen) 12/24/2018 4:18 PM EDT 12/24/2018 4:18 PM EDT Louis De La O MD POINT OF CARE TEST ORDERABLES Performing Organization Address City/[facility]/ZIP Co de Phone Number [facility] [place] [address] * POCT Glucose (12/24/2018 2:17 PM EDT) Glucose, POC 149 65 - 199 mg/dL [facility] Comment: Supplemental ranges: <140 mg/dL before meals <180 mg/dL all other times of the day Blood specimen (specimen) 12/24/2018 2:17 PM EDT 12/24/2018 2:17 PM EDT Louis De La O MD POINT OF CARE TEST ORDERABLES Performing Organization Address [facility] Co de Phone Number [facility] [place] [address] * POCT Glucose (12/24/2018 12:09 PM EDT) Glucose, POC 163 65 - 199 mg/dL [facility] Comment: Supplemental ranges: <140 mg/dL before meals <180 mg/dL all other times of the day Blood specimen (specimen) 12/24/2018 12:09 PM EDT 12/24/2018 12:09 PM EDT Louis De La O MD POINT OF CARE TEST ORDERABLES Performing Organization Address [facility] Co de Phone Number [facility] [place] [address] * POCT Glucose (12/24/2018 10:30 AM EDT) Glucose, POC 168 65 - 199 mg/dL [facility] Comment: Supplemental ranges: <140 mg/dL before meals <180 mg/dL all other times of the day Blood specimen (specimen) 12/24/2018 10:30 AM EDT 12/24/2018 10:30 AM EDT Louis De La O MD POINT OF CARE TEST ORDERABLES [facility] [place] [address] * POCT Glucose (12/24/2018 7:45 AM EDT) Glucose, POC 141 65 - 199 mg/dL [facility] Comment: Supplemental ranges: <140 mg/dL before meals <180 mg/dL all other times of the day Blood specimen (specimen) 12/24/2018 7:45 AM EDT 12/24/2018 7:45 AM EDT Louis De La O MD POINT OF CARE TEST ORDERABLES [facility] [place] [address] * POCT Glucose (12/24/2018 6:13 AM EDT) Glucose, POC 151 65 - 199 mg/dL [facility] Comment: Supplemental ranges: <140 mg/dL before meals <180 mg/dL all other times of the day Blood specimen (specimen) 12/24/2018 6:13 AM EDT 12/24/2018 6:13 AM EDT Louis De La O MD POINT OF CARE TEST ORDERABLES [facility] [place] [address] * POCT Glucose (12/24/2018 4:06 AM EDT) Glucose, POC 161 65 - 199 mg/dL [facility] Comment: Supplemental ranges: <140 mg/dL before meals <180 mg/dL all other times of the day Blood specimen (specimen) 12/24/2018 4:06 AM EDT 12/24/2018 4:06 AM EDT Louis De La O MD POINT OF CARE TEST ORDERABLES [facility] [place] [address] * Scan, Peripheral Blood (12/24/2018 4:05 AM EDT) Plat estimate Normal [facility] RBC Morphology Normal [facility] Blood specimen (specimen) 12/24/2018 4:05 AM EDT 12/24/2018 4:14 AM EDT Narrative Resulting Agency Comment Spec In Lab Aidan ARRIAGA HEMATOLOGY ORDERABLE S [facility] [place] [address] * (ABNORMAL) Differential, Automated (12/24/2018 4:05 AM EDT) Neutrophil % 81.7 % [facility] Neutrophil Absolute 11.87(H) 1.70 - 6.10 x10(3)/mc L [facility] Lymph % 6.8 % [facility] Lymphocytes Abs 1.0 0.9 - 3.2 x10(3)/mc L [facility] Monocyte % 10.8 % [facility] Monocyte Abs 1.6(H) 0.3 - 0.9 x10(3)/ L [facility] Eos % 0.1 % [facility] Eosinophils Abs 0.0 0.0 - 0.4 x10(3)/ L [facility] Basophil % 0.3 % [facility] Baso Absolute 0.0 0.0 - 0.1 x10(3)/mc L [facility] Immature Gran % 0.30 % [facility] Comment: Immature granulocytes(IG's)percentage and absolute count will include metamyelocytes, myelocytes, and promyelocytes. Blood smears from CBCs yielding IG's will be scanned manually for concordance. If this scan disagrees with the automated IG or if promyelocytes are noted, a manual differential will be performed. Immature Gran Absolute 0.05(H) 0.00 - 0.04 x10(3)/mc L [facility] Blood specimen (specimen) 12/24/2018 4:05 AM EDT 12/24/2018 4:14 AM EDT Narrative Resulting Agency Comment Spec In Lab Aidan ARRIAGA HEMATOLOGY ORDERABLE S [facility] [place] [address] * (ABNORMAL) Hemogram (12/24/2018 4:05 AM EDT) White Blood Cell 14.5(H) 4.0 - 9.5 x10(3)/[facility] LABORATORY Red Blood Cell 4.58 4.58 - 5.54 x10(6)/[facility] LABORATORY Hemoglobin 13.6(L) 13.7 - 16.5 gm/dL [facility] Hematocrit 41.0 40.5 - 48.5 % [facility] Mean Cell Volume 89.5 82.9 - 93.1 fL [facility] Mean Cell Hemoglobin 29.7 27.5 - 32.1 pg [facility] Mean Cell Hemoglobin Concentration 33.2 32.0 - 35.7 gm/dL [facility] Platelet 164 145 - 357 x10(3)/[facility] LABORATORY RDW Standard Deviation 45.2(H) 36.0 - 45.0 [facility]ORY RDW coefficient of variation 13.7 11.4 - 13.8 % [facility] Mean Platelet Volume 9.3 7.6 - 12.9 fL [facility] NRBC% auto 0.0 % [facility] NRBC Absolute 0.000 0.000 - 0.000 x10(3)/[facility] LABORATORY Blood specimen (specimen) 12/24/2018 4:05 AM EDT 12/24/2018 4:14 AM EDT Narrative Resulting Agency Comment Spec In Lab Aidan ARRIAGA HEMATOLOGY ORDERABLE S [facility] [place] [address] * (ABNORMAL) Basic Metabolic Panel (non-fasting) (12/24/2018 4:05 AM EDT) Glucose 173 65 - 199 mg/dL [facility] Comment:Diabetes: >=200 mg/d L plus symptoms Blood Urea Nitrogen 17 10 - 20 mg/dL [facility] Creatinine 1.12 0.80 - 1.50 mg/dL [facility] Sodium 137 135 - 145 mmol/L [facility] Potassium 4.9 3.5 - 5.0 mmol/L [facility] Comment: Please note: ??Patients with WBC >100,000 may have falsely elevated Potassium levels. ??For accurate Potassium quantification in these patients send serum separator tube (gold top) for subsequent determinations. ??Contact the Clinical Chemistry Laboratory if there are any questions. Chloride 105 98 - 107 mmol/L [facility] Carbon Dioxide 21(L) 22 - 31 mmol/L [facility] Anion Gap 11 5 - 15 mmol/L [facility] Calcium 8.5 8.5 - 10.5 mg/dL [facility] Est Glomerular Filtration Rate 68 >=60 mL/min/1. 73 m?? [facility] Comment: The eGFR was calculated using the CKD-EPI equation. As with all creatinine based estimates of kidney function, eGFR values calculated with the CKD-EPI equation are not accurate in patients with acute kidney failure, extremes of body mass or the acutely ill. [email or web address] eGFR 79 >=60 mL/min/1. 73 m?? [facility] Comment: The eGFR was calculated using the CKD-EPI equation. As with all creatinine based estimates of kidney function, eGFR values calculated with the CKD-EPI equation are not accurate in patients with acute kidney failure, extremes of body mass or the acutely ill. [email or web address] Blood specimen (specimen) 12/24/2018 4:05 AM EDT 12/24/2018 4:14 AM EDT Narrative Resulting Agency Comment Spec In Lab Louis De La O MD CHEMISTRY ORDERABLE S Performing Organization Address [facility]/ZIP Co de Phone Number [facility] [place] [address] * (ABNORMAL) Troponin (12/24/2018 4:05 AM EDT) Pathologist [facility] Troponin-T 0.17(H) 0.00 - 0.00 ng/mL [facility] Comment: The 99th percentile for Troponin T is less than 0.01 ng/mL, any detectable cTnT concentration using this assay should be considered elevated. According to the third universal definition of myocardial infarction the following criteria with a clinical presentation consistent with acute myocardial ischemia meets the diagnosis for a myocardial infarction (NH). Detection of a rise and/or fall of cTnT, with at least one value greater than the 99th percentile (> or = 0.01) and with at least one of the following ?? Symptoms of ischemia ?? New or presumed new significant TO-dwethsm-M wave (ST-T) changes or new left bundle [...] additional sample may be indicated. Reference: Third [place] Definition of Myocardial Infarction. Journal of the [place] [employer] 2012;60:1581-98 Blood specimen (specimen) 12/24/2018 4:05 AM EDT 12/24/2018 4:14 AM EDT Narrative Resulting Agency Comment Spec In Lab Louis De La O MD CHEMISTRY ORDERABLE S Performing Organization Address [facility]/ZIP Co de Phone Number [facility] [place] [address] * POCT Glucose (12/24/2018 3:03 AM EDT) Glucose, POC 143 65 - 199 mg/dL [facility] Comment: Supplemental ranges: <140 mg/dL before meals <180 mg/dL all other times of the day Blood specimen (specimen) 12/24/2018 3:03 AM EDT 12/24/2018 3:03 AM EDT Louis De La O MD POINT OF CARE TEST ORDERABLES [facility] [place] [address] * POCT Glucose (12/24/2018 2:10 AM EDT) Glucose, POC 142 65 - 199 mg/dL [facility] Comment: Supplemental ranges: <140 mg/dL before meals <180 mg/dL all other times of the day Blood specimen (specimen) 12/24/2018 2:10 AM EDT 12/24/2018 2:10 AM EDT Louis De La O MD POINT OF CARE TEST ORDERABLES Performing Organization Address City/[facility]/ZIP Co de Phone Number [facility] [place] [address] * POCT Glucose (12/24/2018 1:01 AM EDT) Glucose, POC 115 65 - 199 mg/dL [facility] Comment: Supplemental ranges: <140 mg/dL before meals <180 mg/dL all other times of the day Blood specimen (specimen) 12/24/2018 1:01 AM EDT 12/24/2018 1:01 AM EDT Louis De La O MD POINT OF CARE TEST ORDERABLES [facility] [place] [address] * POCT Glucose (12/24/2018 12:21 AM EDT) Glucose, POC 141 65 - 199 mg/dL [facility] Comment: Supplemental ranges: <140 mg/dL before meals <180 mg/dL all other times of the day Blood specimen (specimen) 12/24/2018 12:21 AM EDT 12/24/2018 12:21 AM EDT Louis De La O MD POINT OF CARE TEST ORDERABLES [facility] [place] [address] * POCT Glucose (12/23/2018 9:51 PM EDT) Glucose, POC 123 65 - 199 mg/dL [facility] Comment: Supplemental ranges: <140 mg/dL before meals <180 mg/dL all other times of the day Blood specimen (specimen) 12/23/2018 9:51 PM EDT 12/23/2018 9:51 PM EDT Louis De La O MD POINT OF CARE TEST ORDERABLES Performing Organization Address City/[facility]/ZIP Co de Phone Number [facility] [place] [address] * POCT Glucose (12/23/2018 8:53 PM EDT) Glucose, POC 127 65 - 199 mg/dL [facility] Comment: Supplemental ranges: <140 mg/dL before meals <180 mg/dL all other times of the day Blood specimen (specimen) 12/23/2018 8:53 PM EDT 12/23/2018 8:53 PM EDT Louis De La O MD POINT OF CARE TEST ORDERABLES [facility] [place] [address] * POCT Glucose (12/23/2018 8:04 PM EDT) Glucose, POC 103 65 - 199 mg/dL [facility] Comment: Supplemental ranges: <140 mg/dL before meals <180 mg/dL all other times of the day Blood specimen (specimen) 12/23/2018 8:04 PM EDT 12/23/2018 8:04 PM EDT Louis De La O MD POINT OF CARE TEST ORDERABLES [facility] [place] [address] * POCT Glucose (12/23/2018 6:54 PM EDT) Glucose, POC 94 65 - 199 mg/dL [facility] Comment: Supplemental ranges: <140 mg/dL before meals <180 mg/dL all other times of the day Blood specimen (specimen) 12/23/2018 6:54 PM EDT 12/23/2018 6:54 PM EDT Louis De La O MD POINT OF CARE TEST ORDERABLES Performing Organization Address City/[facility]/ZIP Co de Phone Number [facility] [place] [address] * POCT Glucose (12/23/2018 6:30 PM EDT) Glucose, POC 86 65 - 199 mg/dL [facility] Comment: Supplemental ranges: <140 mg/dL before meals <180 mg/dL all other times of the day Blood specimen (specimen) 12/23/2018 6:30 PM EDT 12/23/2018 6:30 PM EDT Louis De La O MD POINT OF CARE TEST ORDERABLES [facility] [place] [address] * POCT Glucose (12/23/2018 5:59 PM EDT) Glucose, POC 99 65 - 199 mg/dL [facility] Comment: Supplemental ranges: <140 mg/dL before meals <180 mg/dL all other times of the day Blood specimen (specimen) 12/23/2018 5:59 PM EDT 12/23/2018 5:59 PM EDT Louis De La O MD POINT OF CARE TEST ORDERABLES Performing Organization Address City/[facility]/ZIP Co de Phone Number [facility] [place] [address] * POCT Glucose (12/23/2018 5:21 PM EDT) Glucose, POC 116 65 - 199 mg/dL [facility] Comment: Supplemental ranges: <140 mg/dL before meals <180 mg/dL all other times of the day Blood specimen (specimen) 12/23/2018 5:21 PM EDT 12/23/2018 5:21 PM EDT Louis De La O MD POINT OF CARE TEST ORDERABLES Performing Organization Address City/[facility]/ZIP Co de Phone Number [facility] [place] [address] * POCT Glucose (12/23/2018 4:47 PM EDT) Glucose, POC 113 65 - 199 mg/dL [facility] Comment: Supplemental ranges: <140 mg/dL before meals <180 mg/dL all other times of the day Blood specimen (specimen) 12/23/2018 4:47 PM EDT 12/23/2018 4:47 PM EDT Louis De La O MD POINT OF CARE TEST ORDERABLES Performing Organization Address City/[facility]/ZIP Co de Phone Number [facility] [place] [address] * POCT Glucose (12/23/2018 4:20 PM EDT) Glucose, POC 122 65 - 199 mg/dL [facility] Comment: Supplemental ranges: <140 mg/dL before meals <180 mg/dL all other times of the day Blood specimen (specimen) 12/23/2018 4:20 PM EDT 12/23/2018 4:20 PM EDT Louis De La O MD POINT OF CARE TEST ORDERABLES Performing Organization Address [facility] Co de Phone Number [facility] [place] [address] * Hemoglobin (12/23/2018 3:40 PM EDT) Hemoglobin 13.7 13.7 - 16.5 gm/dL [facility] Blood specimen (specimen) 12/23/2018 3:40 PM EDT 12/23/2018 3:56 PM EDT Narrative Resulting Agency Comment Spec In Lab Louis De La O MD HEMATOLOGY ORDERABL ES Performing Organization Address [facility] de Phone Number [facility] [place] [address] * Potassium (12/23/2018 3:40 PM EDT) Potassium 4.2 3.5 - 5.0 mmol/L [facility] Comment: Please note: ??Patients with [...] MD CHEMISTRY ORDERABLE S Performing Organization Address [facility] Co de Phone Number [facility] [place] [address] * POCT Glucose (12/23/2018 3:35 PM EDT) Glucose, POC 141 65 - 199 mg/dL [facility] Comment: Supplemental ranges: <140 mg/dL before meals <180 mg/dL all other times of the day Blood specimen (specimen) 12/23/2018 3:35 PM EDT 12/23/2018 3:35 PM EDT Louis De La O MD POINT OF CARE TEST ORDERABLES [facility] [place] [address] * (ABNORMAL) BLOOD GAS 2 ARTERIAL (12/23/2018 2:39 PM EDT) pH, Arterial 7.35 7.35 - 7.45 [facility] PCO2, Arterial 40 35 - 45 mmHg [facility] PO2, Arterial 114(H) 85 - 104 mmHg [facility] Bicarbonate, Arterial 21.3 20.0 - 26.0 mmol/L [facility] Base Excess, Arterial -4.4(L) -3.0 - 3.0 mmol/L [facility] Hgb Blood Gas 14.7 13.7 - 16.5 gm/dL [facility] Oxyhemoglobin, Arterial 96.7 94.0 - 97.0 % [facility] Carboxyhemoglob in, Arterial 0.2 % [facility] Comment: Nonsmokers: 0.5-1.5% COHB Smokers: Variable, but usually less than 10% Toxic: 20-30% COHB Lethal: Greater than 60% COHB Methemoglobin, Arterial 0.5 <=1.5 % [facility] Na Whole Blood 134(L) 135 - 145 mmol/L [facility] K Whole Blood 3.9 3.5 - 5.0 mmol/L [facility] Comment: Please note: Patients with WBC >100,000 may have falsely elevated Potassium levels. Contact the Clinical Chemistry Laboratory if there are any questions. ICa Whole Blood 1.21 1.15 - 1.33 mmol/L [facility] Comment: Note: ??Total bilirubin higher than 20 mg/dL may lead to falsely low ionized calcium. CL Whole Blood 106 98 - 107 mmol/L [facility] Gluc Whole Bld 171 65 - 199 mg/dL [facility] Comment:Diabetes: >=200 mg/d L plus symptoms. Lactate WB 2.9(H) 0.5 - 2.2 mmol/L [facility] FIO2 Art 40 % [facility] PF Ratio Art 285 [facility] Blood specimen (specimen) 12/23/2018 2:39 PM EDT 12/23/2018 2:39 PM EDT Louis De La O MD POINT OF CARE TEST ORDERABLES Performing Organization Address [facility] Co de Phone Number [facility] [place] [address] * POCT Glucose (12/23/2018 1:53 PM EDT) Glucose, POC 197 65 - 199 mg/dL [facility] Comment: Supplemental ranges: <140 mg/dL before meals <180 mg/dL all other times of the day Blood specimen (specimen) 12/23/2018 1:53 PM EDT 12/23/2018 1:53 PM EDT Louis De La O MD POINT OF CARE TEST ORDERABLES Performing Organization Address City/[facility] Co de Phone Number [facility] [place] [address] * (ABNORMAL) BLOOD GAS 2 ARTERIAL (12/23/2018 12:43 PM EDT) pH, Arterial 7.36 7.35 - 7.45 [facility] PCO2, Arterial 34(L) 35 - 45 mmHg [facility] PO2, Arterial 154(H) 85 - 104 mmHg [facility] Bicarbonate, Arterial 19.2(L) 20.0 - 26.0 mmol/L [facility] Base Excess, Arterial -6.6(L) -3.0 - 3.0 mmol/L [facility] Hgb Blood Gas 14.4 13.7 - 16.5 gm/dL [facility] Oxyhemoglobin, Arterial 96.6 94.0 - 97.0 % [facility] Carboxyhemoglob in, Arterial 1.3 % [facility] Comment: Nonsmokers: 0.5-1.5% COHB Smokers: Variable, but usually less than 10% Toxic: 20-30% COHB Lethal: Greater than 60% COHB Methemoglobin, Arterial 0.6 <=1.5 % [facility] Na Whole Blood 134(L) 135 - 145 mmol/L [facility] K Whole Blood 3.6 3.5 - 5.0 mmol/L [facility] Comment: Please note: Patients with WBC >100,000 may have falsely elevated Potassium levels. Contact the Clinical Chemistry Laboratory if there are any questions. ICa Whole Blood 1.19 1.15 - 1.33 mmol/L [facility] Comment: Note: ??Total bilirubin higher than 20 mg/dL may lead to falsely low ionized calcium. CL Whole Blood 107 98 - 107 mmol/L [facility] Gluc Whole Bld 201(H) 65 - 199 mg/dL [facility] Comment:Diabetes: >=200 mg/d L plus symptoms. Lactate WB 2.0 0.5 - 2.2 mmol/L [facility] FIO2 Art 60 % [facility] PF Ratio Art 257 [facility] [facility] Temp Art 35.9 Celsius [facility] Blood specimen (specimen) 12/23/2018 12:43 PM EDT 12/23/2018 12:43 PM EDT Louis De La O MD POINT OF CARE TEST ORDERABLES [facility] [place] [address] * EKG 12 Lead (12/23/2018 12:06 PM EDT) Ventricular rate 64 BPM MUSE SYSTEM Atrial Rate 78 BPM MUSE SYSTEM P-R Interval 280 ms MUSE SYSTEM QRS Duration 92 ms MUSE SYSTEM Q-T Interval 408 ms MUSE SYSTEM QTC Calculated (Bezet) 420 ms MUSE SYSTEM Calculated P [place] 46 degrees MUSE SYSTEM Calculated R [place] 14 degrees MUSE SYSTEM Calculated T [place] 52 degrees MUSE SYSTEM INTERPRETATION Demand pacemaker; [...] number below. Electronically signed by: Shannon Long [facility]([phone]), at 12/23/2018 12:25 PM Louis De La O MD IMG DX ORDERABLES * (ABNORMAL) BLOOD GAS 2 ARTERIAL (12/23/2018 11:47 AM EDT) pH, Arterial 7.33(L) 7.35 - 7.45 [facility] PCO2, Arterial 40 35 - 45 mmHg [facility] PO2, Arterial 102 85 - 104 mmHg [facility] Bicarbonate, Arterial 20.8 20.0 - 26.0 mmol/L [facility] Base Excess, Arterial -5.1(L) -3.0 - 3.0 mmol/L [facility] Hgb Blood Gas 14.1 13.7 - 16.5 gm/dL [facility] Oxyhemoglobin, Arterial 95.0 94.0 - 97.0 % [facility] Carboxyhemoglob in, Arterial 1.3 % [facility] Comment: Nonsmokers: 0.5-1.5% COHB Smokers: Variable, but usually less than 10% Toxic: 20-30% COHB Lethal: Greater than 60% COHB Methemoglobin, Arterial 0.6 <=1.5 % [facility] Na Whole Blood 132(L) 135 - 145 mmol/L [facility] K Whole Blood 4.0 3.5 - 5.0 mmol/L [facility] Comment: Please note: Patients with WBC >100,000 may have falsely elevated Potassium levels. Contact the Clinical Chemistry Laboratory if there are any questions. ICa Whole Blood 1.22 1.15 - 1.33 mmol/L [facility] Comment: Note: ??Total bilirubin higher than 20 mg/dL may lead to falsely low ionized calcium. CL Whole Blood 105 98 - 107 mmol/L [facility] Gluc Whole Bld 257(H) 65 - 199 mg/dL [facility] Comment:Diabetes: >=200 mg/d L plus symptoms. Lactate WB 2.0 0.5 - 2.2 mmol/L [facility] FIO2 Art 100 % [facility] PF Ratio Art 102 [facility] Blood specimen (specimen) 12/23/2018 11:47 AM EDT 12/23/2018 11:47 AM EDT Louis De La O MD POINT OF CARE TEST ORDERABLES [facility] [place] [address] * Fibrinogen (12/23/2018 10:30 AM EDT) Fibrinogen 272 200 - 393 mg/dL [facility] Comment: A fibrinogen level >100 mg/dL is adequate for hemostasis in most patients without underlying bleeding disorders. Blood specimen (specimen) 12/23/2018 10:30 AM EDT 12/23/2018 10:32 AM EDT Narrative Resulting Agency Comment Spec In Lab Vira Bañuelos MD HEMATOLOGY ORDERABLE S Performing Organization Address [facility] Co de Phone Number [facility] [place] [address] * APTT (12/23/2018 10:30 AM EDT) Partial Thromboplastin Time 29 25 - 37 sec [facility] Comment: The PTT is NOT appropriate for heparin monitoring. Use the Anti-Xa level for heparin monitoring (HEP UFH) or LMWH monitoring (HEP LMW). A PTT less than 37 seconds generally indicates adequate hemostasis. Blood specimen (specimen) 12/23/2018 10:30 AM EDT 12/23/2018 10:32 AM EDT Narrative Resulting Agency Comment Spec In Lab Vira Bañuelos MD HEMATOLOGY ORDERABLE S Performing Organization Address [facility] de Phone Number [facility] [place] [address] * (ABNORMAL) Prothrombin Time (12/23/2018 10:30 AM EDT) Prothrombin Time 13.7(H) 9.4 - 12.5 sec [facility] Comment:Called by: hai, Read back by: Kevin Hobson [id number], Date/Time:12/23/18 10:47. International Normalization Ratio 1.2 [facility] Comment: An INR <2.0 [...] Lab Vira Bañuelos MD HEMATOLOGY ORDERABLE S [facility] [place] [address] * (ABNORMAL) Hemogram (12/23/2018 10:30 AM EDT) White Blood Cell 16.9(H) 4.0 - 9.5 x10(3)/mc L [facility] Red Blood Cell 3.80(L) 4.58 - 5.54 x10(6)/mc L [facility] Hemoglobin 11.5(L) 13.7 - 16.5 gm/dL [facility] Hematocrit 34.7(L) 40.5 - 48.5 % [facility] Comment: This result has been called to KEVIN HOBSON by Onelia Ramírez on 12 23 2018 at 1039, and has been read back. Mean Cell Volume 91.3 82.9 - 93.1 fL [facility] Mean Cell Hemoglobin 30.3 27.5 - 32.1 pg [facility] Mean Cell Hemoglobin Concentration 33.1 32.0 - 35.7 gm/dL [facility] Platelet 124(L) 145 - 357 x10(3)/mc L [facility] RDW Standard Deviation 45.1(H) 36.0 - 45.0 [facility] RDW coefficient of variation 13.3 11.4 - 13.8 % [facility] Mean Platelet Volume 9.1 7.6 - 12.9 [facility] NRBC% auto 0.0 % [facility] NRBC Absolute 0.000 0.000 - 0.000 x10(3)/ L [facility] Blood specimen (specimen) 12/23/2018 10:30 AM EDT 12/23/2018 10:32 AM EDT Narrative Resulting Agency Comment Spec In Lab Vira Bañuelos MD HEMATOLOGY ORDERABLE S [facility] [place] [address] * (ABNORMAL) BLOOD GAS 2 ARTERIAL (12/23/2018 10:26 AM EDT) pH, Arterial 7.37 7.35 - 7.45 [facility] PCO2, Arterial 36 35 - 45 mmHg [facility] PO2, Arterial 316(H) 85 - 104 mmHg [facility] Bicarbonate, Arterial 20.4 20.0 - 26.0 mmol/L [facility] Base Excess, Arterial -5.1(L) -3.0 - 3.0 mmol/L [facility] Hgb Blood Gas 12.1(L) 13.7 - 16.5 gm/dL [facility] Oxyhemoglobin, Arterial 97.8(H) 94.0 - 97.0 % [facility] Carboxyhemoglob in, Arterial 1.2 % [facility] Comment: Nonsmokers: 0.5-1.5% COHB Smokers: Variable, but usually less than 10% Toxic: 20-30% COHB Lethal: Greater than 60% COHB Methemoglobin, Arterial 0.3 <=1.5 % [facility] Na Whole Blood 128(L) 135 - 145 mmol/L [facility] K Whole Blood 5.3(H) 3.5 - 5.0 mmol/L [facility] Comment: Please note: Patients with WBC >100,000 may have falsely elevated Potassium levels. Contact the Clinical Chemistry Laboratory if there are any questions. ICa Whole Blood 1.35(H) 1.15 - 1.33 mmol/L [facility] Comment: Note: ??Total bilirubin higher than 20 mg/dL may lead to falsely low ionized calcium. CL Whole Blood 104 98 - 107 mmol/L [facility] Gluc Whole Bld 271(H) 65 - 199 mg/dL [facility] Comment:Diabetes: >=200 mg/d L plus symptoms. Lactate WB 2.4(H) 0.5 - 2.2 mmol/L [facility] FIO2 Art 97 % [facility] Flow Art 2.6 LPM [facility] PF Ratio Art 326 [facility] Temp Art 35.9 Celsius [facility] Blood specimen (specimen) 12/23/2018 10:26 AM EDT 12/23/2018 10:26 AM EDT Louis De La O MD POINT OF CARE TEST ORDERABLES Performing Organization Address [facility] de Phone Number [facility] [place] [address] * Prepare Platelets, Apheresis (12/23/2018 10:25 AM EDT) Pathologist [facility] Dispensed? Yes [facility] Blood specimen (specimen) 12/23/2018 10:25 AM EDT 12/23/2018 10:25 AM EDT Louis De La O MD BLOOD BANK PRODUCT ORDERABLES Performing Organization Address [facility] Phone Number [facility] [place] [address] * (ABNORMAL) BLOOD GAS 2 ARTERIAL (12/23/2018 9:40 AM EDT) pH, Arterial 7.38 7.35 - 7.45 [facility] PCO2, Arterial 36 35 - 45 mmHg [facility] PO2, Arterial 394(H) 85 - 104 mmHg [facility] Bicarbonate, Arterial 21.0 20.0 - 26.0 mmol/L [facility] Base Excess, Arterial -4.1(L) -3.0 - 3.0 mmol/L [facility] Hgb Blood Gas 11.8(L) 13.7 - 16.5 gm/dL [facility] Oxyhemoglobin, Arterial 98.0(H) 94.0 - 97.0 % [facility] Carboxyhemoglob in, Arterial 1.1 % [facility] Comment: Nonsmokers: 0.5-1.5% COHB Smokers: Variable, but usually less than 10% Toxic: 20-30% COHB Lethal: Greater than 60% COHB Methemoglobin, Arterial 0.3 <=1.5 % [facility] Na Whole Blood 129(L) 135 - 145 mmol/L [facility] K Whole Blood 6.2(Critic al) 3.5 - 5.0 mmol/L [facility] Comment: Noted by instrument maintenance supervisor. Please note: Patients with WBC >100,000 may have falsely elevated Potassium levels. Contact the Clinical Chemistry Laboratory if there are any questions. ICa Whole Blood 0.92(Criti kyle) 1.15 - 1.33 mmol/L [facility] Comment: Noted by instrument maintenance supervisor. Note: ??Total bilirubin higher than 20 mg/dL may lead to falsely low ionized calcium. CL Whole Blood 103 98 - 107 mmol/L [facility] Gluc Whole Bld 289(H) 65 - 199 mg/dL [facility] Comment:Diabetes: >=200 mg/d L plus symptoms. Lactate WB 1.8 0.5 - 2.2 mmol/L [facility] Blood specimen (specimen) 12/23/2018 9:40 AM EDT 12/23/2018 9:40 AM EDT Louis De La O MD POINT OF CARE TEST ORDERABLES [facility] [place] [address] * (ABNORMAL) Platelet count (12/23/2018 9:35 AM EDT) Platelet 103(L) 145 - 357 x10(3)/mc L [facility] Immature Plt % 2.3 0.0 - 7.4 % [facility] Comment: Limitation of the Immature Platelet Fraction (IPF)-May be less reliable when the platelet count is less than 12u469/uL due to statistical imprecision. The IPF value [...] in a decreased state of production. References: [employer] The Clinical Value of the Immature Platelet Fraction (IPF) in Cell Recovery Document Number [id number] 08/2010 [employer] The Role of the Immature Platelet Fraction (IPF) in the Differential Diagnosis of Thrombocytopenia, Document [id number] V007/25/13 P007/27 Blood specimen (specimen) 12/23/2018 9:35 AM EDT 12/23/2018 9:43 AM EDT Narrative Resulting Agency Comment Spec In Lab Louis De La O MD HEMATOLOGY ORDERABL ES [facility] [place] [address] * (ABNORMAL) Hemoglobin and Hematocrit, blood (12/23/2018 9:35 AM EDT) Hemoglobin 10.9(L) 13.7 - 16.5 gm/dL [facility] Hematocrit 33.1(L) 40.5 - 48.5 % [facility] Comment: This result has been called to KEVIN HOBSON by Onelia Ramírez on 12 23 2018 at 0959, and has been read back. Blood specimen (specimen) 12/23/2018 9:35 AM EDT 12/23/2018 9:43 AM EDT Narrative Resulting Agency Comment Spec In Lab Louis De La O MD HEMATOLOGY ORDERABL ES Performing Organization Address [facility] Co de Phone Number [facility] [place] [address] * Fibrinogen (12/23/2018 9:35 AM EDT) Fibrinogen 254 200 - 393 mg/dL [facility] Comment: Called by: , Read back by: KEVIN BRUNO_, Date/Time:_12/23/18 10:21. A fibrinogen level >100 mg/dL is adequate for hemostasis in most patients without underlying bleeding disorders. Blood specimen (specimen) 12/23/2018 9:35 AM EDT 12/23/2018 9:43 AM EDT Narrative Resulting Agency Comment Spec In Lab Louis De La O MD HEMATOLOGY ORDERABL ES Performing Organization Address [facility] de Phone Number [facility] [place] [address] * (ABNORMAL) BLOOD GAS 2 VENOUS (12/23/2018 9:11 AM EDT) pH, Venous 7.24(Criti kyle) 7.32 - 7.42 [facility] Comment:Noted by instrument maintenance supervisor. PCO2, Venous 55(H) 41 - 51 mmHg [facility] PO2, Venous 56(H) 25 - 40 mmHg [facility] Bicarbonate, Venous 23.0 mmol/L [facility] Base Excess, Venous -4.4 mmol/L [facility] Hgb Blood Gas 12.7(L) 13.7 - 16.5 gm/dL [facility] Oxyhemoglobin, Venous 84.1 % [facility] Carboxyhemoglob in, Venous 1.3 % [facility] Comment: Nonsmokers: 0.5-1.5% COHB Smokers: Variable, but usually less than 10% Toxic: 20-30% COHB Lethal: Greater than 60% COHB Methemoglobin, Venous 0.3 <=1.5 % [facility] Na Whole Blood 134(L) 135 - 145 mmol/L [facility] K Whole Blood 4.5 3.5 - 5.0 mmol/L [facility] Comment: Please note: Patients with WBC >100,000 may have falsely elevated Potassium levels. Contact the Clinical Chemistry Laboratory if there are any questions. ICa Whole Blood 1.04(L) 1.15 - 1.33 mmol/L [facility] Comment: Note: ??Total bilirubin higher than 20 mg/dL may lead to falsely low ionized calcium. CL Whole Blood 104 98 - 107 mmol/L [facility] Gluc Whole Bld 171 65 - 199 mg/dL [facility] Comment:Diabetes: >=200 mg/d L plus symptoms Lactate WB 1.1 0.5 - 2.2 mmol/L [facility] Blood Gas Source Venous [facility] Blood specimen (specimen) 12/23/2018 9:11 AM EDT 12/23/2018 9:11 AM EDT Louis De La O MD POINT OF CARE TEST ORDERABLES Performing Organization Address City/State/[facility] Co de Phone Number [facility] [place] [address] * (ABNORMAL) BLOOD GAS 2 ARTERIAL (12/23/2018 9:11 AM EDT) pH, Arterial 7.32(L) 7.35 - 7.45 [facility] PCO2, Arterial 43 35 - 45 mmHg [facility] PO2, Arterial 358(H) 85 - 104 mmHg [facility] Bicarbonate, Arterial 21.6 20.0 - 26.0 mmol/L [facility] Base Excess, Arterial -4.5(L) -3.0 - 3.0 mmol/L [facility] Hgb Blood Gas 12.2(L) 13.7 - 16.5 gm/dL [facility] Oxyhemoglobin, Arterial 97.7(H) 94.0 - 97.0 % [facility] Carboxyhemoglob in, Arterial 1.5 % [facility] Comment: Nonsmokers: 0.5-1.5% COHB Smokers: Variable, but usually less than 10% Toxic: 20-30% COHB Lethal: Greater than 60% COHB Methemoglobin, Arterial 0.3 <=1.5 % [facility] Na Whole Blood 134(L) 135 - 145 mmol/L [facility] K Whole Blood 5.1(H) 3.5 - 5.0 mmol/L [facility] Comment: Please note: Patients with WBC >100,000 may have falsely elevated Potassium levels. Contact the Clinical Chemistry Laboratory if there are any questions. ICa Whole Blood 0.92(Criti kyle) 1.15 - 1.33 mmol/L [facility] Comment: Noted by instrument maintenance supervisor. Note: ??Total bilirubin higher than 20 mg/dL may lead to falsely low ionized calcium. CL Whole Blood 104 98 - 107 mmol/L [facility] Gluc Whole Bld 194 65 - 199 mg/dL [facility] Comment:Diabetes: >=200 mg/d L plus symptoms. Lactate WB 1.1 0.5 - 2.2 mmol/L [facility] Blood specimen (specimen) 12/23/2018 9:11 AM EDT 12/23/2018 9:11 AM EDT Louis De La O MD POINT OF CARE TEST ORDERABLES Performing Organization Address City/State/[facility] Co de Phone Number [facility] [place] [address] * (ABNORMAL) BLOOD GAS 2 ARTERIAL (12/23/2018 8:15 AM EDT) pH, Arterial 7.38 7.35 - 7.45 [facility] PCO2, Arterial 39 35 - 45 mmHg [facility] PO2, Arterial 406(H) 85 - 104 mmHg [facility] Bicarbonate, Arterial 22.5 20.0 - 26.0 mmol/L [facility] Base Excess, Arterial -2.9 -3.0 - 3.0 mmol/L [facility] Hgb Blood Gas 14.9 13.7 - 16.5 gm/dL [facility] Oxyhemoglobin, Arterial 98.0(H) 94.0 - 97.0 % [facility] Carboxyhemoglob in, Arterial 1.3 % [facility] Comment: Nonsmokers: 0.5-1.5% COHB Smokers: Variable, but usually less than 10% Toxic: 20-30% COHB Lethal: Greater than 60% COHB Methemoglobin, Arterial 0.3 <=1.5 % [facility] Na Whole Blood 136 135 - 145 mmol/L [facility] K Whole Blood 3.9 3.5 - 5.0 mmol/L [facility] Comment: Please note: Patients with WBC >100,000 may have falsely elevated Potassium levels. Contact the Clinical Chemistry Laboratory if there are any questions. ICa Whole Blood 1.11(L) 1.15 - 1.33 mmol/L [facility] Comment: Note: ??Total bilirubin higher than 20 mg/dL may lead to falsely low ionized calcium. CL Whole Blood 104 98 - 107 mmol/L [facility] Gluc Whole Bld 167 65 - 199 mg/dL [facility] Comment:Diabetes: >=200 mg/d L plus symptoms. Lactate WB 1.2 0.5 - 2.2 mmol/L [facility] FIO2 Art 94 % [facility] Flow Art 1.1 LPM [facility] PF Ratio Art 432 [facility] Temp Art 35.7 Celsius [facility] Blood specimen (specimen) 12/23/2018 8:15 AM EDT 12/23/2018 8:15 AM EDT Louis De La O MD POINT OF CARE TEST ORDERABLES [facility] [place] [address] * (ABNORMAL) Urinalysis without microscopic (12/23/2018 7:20 AM EDT) Glucose, Urine Dipstick Negative Negative mg/dL [facility] Protein, Urine Dipstick 30(A) Negative mg/dL [facility] Bilirubin, Urine Dipstick Negative Negative mg/dL [facility] Comment: Clinical correlation required for positive Urine Bilirubin results as false positive may occur with some drugs and drug related products. If a false positive is suspected a serum total bilirubin should be considered if clinically indicated. Urobilinogen, Urine Dipstick Normal Normal mg/dL [facility] pH, Urn (dipstick) 6.0 5.0 - 8.0 [facility] Blood, Urine Dipstick Negative Negative mg/dL [facility] Ketone, Urine Dipstick Negative Negative mg/dL [facility] Nitrite, Urine Dipstick Negative Negative [facility] Leukocytes, Urine Dipstick Negative Negative mcL [facility] Appearance, Urine Dipstick Clear Clear [facility] Specific [place] Urine Automated 1.021 1.002 - 1.030 [facility] Color, Urine Dipstick Yellow Yellow [facility] Urine specimen (specimen) 12/23/2018 7:20 AM EDT 12/23/2018 8:00 AM EDT Narrative Resulting Agency Comment Spec In Lab Marlo Keith MD URINE ORDERABLES [facility] [place] [address] * EKG 12 Lead (12/23/2018 7:18 AM EDT) Ventricular rate 68 BPM MUSE SYSTEM Atrial Rate 68 BPM MUSE SYSTEM P-R Interval 212 ms MUSE SYSTEM QRS Duration 84 ms MUSE SYSTEM Q-T Interval 376 ms MUSE SYSTEM QTC Calculated (Bezet) 399 ms MUSE SYSTEM Calculated P [place] 57 degrees MUSE SYSTEM Calculated R [place] 4 degrees MUSE SYSTEM Calculated T [place] 69 degrees MUSE SYSTEM INTERPRETATION Sinus rhythm with 1st degree A-V block Inferior infarct (cited on or before 23-FEB-2009) Abnormal ECG When compared with ECG of 23-FEB-2009 16:24, [place] interval has increased Improvement in T wave morphology in anterolateral leads Confirmed by MD Fischer Michael ([id number]) on 12/23/2018 8:52:28 AM MUSE SYSTEM 12/23/2018 7:18 AM EDT 12/23/2018 8:52 AM EDT Louis De La O MD ECG ORDERABLES MUSE SYSTEM * (ABNORMAL) Differential, Automated (12/23/2018 7:10 AM EDT) Neutrophil % 70.5 % [facility] Neutrophil Absolute 5.34 1.70 - 6.10 x10(3)/[facility] Lymph % 14.1 % [facility] Lymphocytes Abs 1.1 0.9 - 3.2 x10(3)/[facility] Monocyte % 12.5 % [facility] Monocyte Abs 1.0(H) 0.3 - 0.9 x10(3)/[facility] Eos % 1.7 % [facility] Eosinophils Abs 0.1 0.0 - 0.4 x10(3)/[facility] Basophil % 1.1 % [facility] Baso Absolute 0.1 0.0 - 0.1 x10(3)/[facility] Immature Gran % 0.10 % [facility] Comment: Immature granulocytes(IG's)percentage and absolute count will include metamyelocytes, myelocytes, and promyelocytes. Blood smears from CBCs yielding IG's will be scanned manually for concordance. If this scan disagrees with the automated IG or if promyelocytes are noted, a manual differential will be performed. Immature Gran Absolute 0.01 0.00 - 0.04 x10(3)/ L [facility] Blood specimen (specimen) 12/23/2018 7:10 AM EDT 12/23/2018 7:18 AM EDT Narrative Resulting Agency Comment Spec In Lab Louis De La O MD HEMATOLOGY ORDERABL ES Performing Organization Address City/[facility]/ZIP Co de Phone Number [facility] [place] [address] * Hemogram (12/23/2018 7:10 AM EDT) White Blood Cell 7.6 4.0 - 9.5 x10(3)/[facility] Red Blood Cell 4.81 4.58 - 5.54 x10(6)/[facility] LABORATORY Hemoglobin 14.2 13.7 - 16.5 gm/dL [facility] Hematocrit 43.2 40.5 - 48.5 % [facility] Mean Cell Volume 89.8 82.9 - 93.1 fL [facility] Mean Cell Hemoglobin 29.5 27.5 - 32.1 [facility] LABORATORY Mean Cell Hemoglobin Concentration 32.9 32.0 - 35.7 gm/dL [facility] Platelet 323 145 - 357 x10(3)/[facility] LABORATORY RDW Standard Deviation 44.7 36.0 - 45.0 [facility] LABORATORY RDW coefficient of variation 13.4 11.4 - 13.8 % [facility] Mean Platelet Volume 9.6 7.6 - 12.9 [facility] LABORATORY NRBC% auto 0.0 % [facility] NRBC Absolute 0.000 0.000 - 0.000 x10(3)/[facility] LABORATORY Blood specimen (specimen) 12/23/2018 7:10 AM EDT 12/23/2018 7:18 AM EDT Narrative Resulting Agency Comment Spec In Lab Louis De La O MD HEMATOLOGY ORDERABL ES Performing Organization Address City/[place] [facility]/ZIP Co de Phone Number [facility] [place] [address] * (ABNORMAL) CMP w/fasting Glucose (12/23/2018 7:10 AM EDT) Glucose Fasting 150(H) 65 - 99 mg/dL [facility] Comment: ?Fasting* Glucose Interpretive Criteria [...] of Diabetes Mellitus, Position Statement from the [employer]. ??Diabetes Care, Volume 33, Supplement 1, Mar 2009 Blood Urea Nitrogen 20 10 - 20 mg/dL [facility] Creatinine 1.27 0.80 - 1.50 mg/dL [facility] Sodium 140 135 - 145 mmol/L [facility] Potassium 4.7 3.5 - 5.0 mmol/L [facility] Comment: Please note: ??Patients with WBC >100,000 may have falsely elevated Potassium levels. ??For accurate Potassium quantification in these patients send serum separator tube (gold top) for subsequent determinations. ??Contact the Clinical Chemistry Laboratory if there are any questions. Chloride 100 98 - 107 mmol/L [facility] Carbon Dioxide 26 22 - 31 mmol/L [facility] Anion Gap 14 5 - 15 mmol/L [facility] Calcium 9.3 8.5 - 10.5 mg/dL [facility] Protein, Total 7.3 6.1 - 8.0 gm/dL [facility] Albumin 4.3 3.2 - 5.2 gm/dL [facility] Aspartate Aminotransferase 13 0 - 39 unit/L [facility] Alanine Aminotransferase 12 0 - 55 unit/L [facility] Alkaline Phosphatase 60 40 - 130 unit/L [facility] Bilirubin, Total 0.3 0.2 - 1.3 mg/dL [facility] Est Glomerular Filtration Rate 58(L) >=60 mL/min/1. 73 m?? [facility] Comment: The eGFR was calculated using the CKD-EPI equation. As with all creatinine based estimates of kidney function, eGFR values calculated with the CKD-EPI equation are not accurate in patients with acute kidney failure, extremes of body mass or the acutely ill. [email or web address] eGFR 68 >=60 mL/min/1. 73 m?? [facility] Comment: The eGFR was calculated using the CKD-EPI equation. As with all creatinine based estimates of kidney function, eGFR values calculated with the CKD-EPI equation are not accurate in patients with acute kidney failure, extremes of body mass or the acutely ill. [email or web address] Blood specimen (specimen) 12/23/2018 7:10 AM EDT 12/23/2018 7:18 AM EDT Narrative Resulting Agency Comment Spec In Lab Louis De La O MD CHEMISTRY ORDERABLE S [facility] [place] [address] * POCT Glucose (12/23/2018 6:46 AM EDT) Glucose, POC 132 65 - 199 mg/dL [facility] Comment: Supplemental ranges: <140 mg/dL before meals <180 mg/dL all other times of the day Blood specimen (specimen) 12/23/2018 6:46 AM EDT 12/23/2018 6:46 AM EDT Louis De La O MD POINT OF CARE TEST ORDERABLES Performing Organization Address City/[facility]/ZIP Co de Phone Number [facility] [place] [address] * Prepare RBC (12/23/2018 6:40 AM EDT) Dispensed? 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, unspecified vessel or lesion type 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 documented in this encounter Admitting Diagnoses Diagnosis CAD (coronary artery disease) Coronary atherosclerosis of unspecified type of vessel, [place] or graft documented in this encounter Administered [...] Starting on Stacey 12/23/18 at 0749, Until Thu12/23/18 at 0749, Intra-Operative (Intra-Procedure) New Bag 12/23/2018 [...] 0854, Until Thu12/27/18 at 1603, Wheezing, Routine lidocaine (PF) (XYLOCAINE) [...] Starting on Stacey 12/23/18 at 1131, Until 12/27/18 at 1603, Pain, - When tolerating oral [...] Jennifer Ramos RN)1624 (Given - Provider: Jennifer Ramos, MARTIN) 0905 (Given - Provider: Jennifer Ramos, MARTIN) glipiZIDE (GLUCOTROL) tablet 5 mg 5 mg, [...] Jennifer Ramos RN)1203 (Given - Provider: Jennifer Ramos, MARTIN)1711 (Given - Provider: Jennifer Ramos, MARTIN) 0906 (Given - Provider: Jennifer Ramos RN)1154 (Given - Provider: Jennifer Ramos, MARTIN) magnesium hydroxide (Milk of Magnesia) (240 mg/mL) [...] on 12/26/18 at 1045, Until Discontinued, Routine 1045 (Not [...] Routine 1450 (Given - Provider: Ramírez Zapata RN)2109 (Given - Provider: Rudi Danielle RN) 0515 [...] on Thu12/26/18 at 2100, Until Discontinued, Routine 2024 (Given - Provider: Rudi Danielle RN) metoprolol tartrate (LOPRESSOR) tablet 75 mg 75 mg, Oral, EVERY 12 HOURS SCHEDULED (2 times per day), First dose (after last modification) on Thu12/27/18 at 0700, Until Discontinued, Routine 901 (Given - Provider: Jennifer Ramos RN) pantoprazole (PROTONIX) tablet 40 mg(Linked Group 4) 40 mg, Oral, DAILY, First dose on Stacey 12/23/18 at 1200, Until Discontinued, DO NOT CRUSH OR OPEN If unable to take PO, may give IV 09 (Given - Provider: Ramírez Zapata RN) 0835 (Given - Provider: Jennifer Ramos RN) 0900 (Given - Provider: Jennifer Ramos RN) potassium chloride (K-DUR/KLOR-CON) extended release tablet 10 mEq (COMPLETED) 10 mEq, Oral, ONCE, 1 dose, On Thu12/27/18 at 0845, Routine 09 (Given - Provider: Jennifer Ramos RN) potassium chloride (K-DUR/KLOR-CON) extended release tablet 40 mEq (COMPLETED) 40 mEq, Oral, ONCE, 1 dose, On Thu12/26/18 at 0930, 20 mEq tablet may be dissolved in water for administration, Routine 110 (Given - Provider: Jennifer Ramos RN) rosuvastatin (CRESTOR) tablet 40 mg 40 mg, Oral, DAILY, First dose on Stacey 12/23/18 at 1200, Until Discontinued 921 (Given - Provider: Ramírez Zapata RN) 0834 (Given - Provider: Jennifer Ramos RN) 0904 (Given - Provider: Jennifer Ramos RN) senna-docusate (PERICOLACE) 8.6-50 mg per tablet 2 tablet 2 tablet, Oral, DAILY, First dose on Thu12/24/18 at 2100, Until Discontinued, Post-op day 1, Routine 2115 (Given - Provider: Rudi Danielle RN) 2024 (Given - Provider: Rudi Danielle RN) sodium chloride 0.9 % (flush) flush 5 mL 5 mL, Intravenous, EVERY 8 HOURS, First dose on Thu12/24/18 at 1515, Until Discontinued, Routine 0715 (Given - Provider: Ramírez Zapata, RN)1515 (Given - Provider: Ramírez Zapata RN) 0003 (Given - Provider: Rudi Danielle RN)0715 (Given - Provider: Jennifer Ramos RN)1515 (Given - Provider: Jennifer Ramso RN)2336 (Given - Provider: Rudi Danielle RN) 0715 (Given - Provider: Jennifer Ramos, MARTIN) PRN Medication Order 12/25/2018 12/26/2018 12/27/2018 dextrose [...] Routine documented in this encounter Care Teams Surgical Assistant Certified Relationship Specialty Start Date End Date Antonella Lucas PA [address] [place] [address] PCP - General Family Medicine 05/06/17 11/01/19 documented as of this encounter
--- OUTSIDE RECORDS SUMMARY | 2023-12-04 00:38 | XMS_ITS | Encounter Summary ---
Author Organization [facility] Address [facility] [place] [address] Care Team Providers Care Museum Registrar Name Role Phone Antonella Lucas Primary Care Provider [phone]- [phone] Reason for Visit * Auth/Cert Specialty Diagnoses [...] Expiration Date Visits Re quested Visits Authorized [id number] 1 1 Encounter Details Date Type Department Care Team (Latest Contact Info) Description 12/21/2018 10:15 AM EDT - 12/21/2018 11:59 PM EDT Hospital Encounter XRay at [address] [place] [address] Louis De La O MD Coronary artery disease of [place] heart with stable angina pectoris, unspecified vessel [...] 10:29 AM EDT Coronary artery disease of [place] heart with stable angina pectoris, unspecified vessel [...] number below. ? Electronically signed by: Shannon Long, [facility] ([phone]), at 12/21/2018 11:02 AM Narrative 12/21/2018 11:02 [...] number below. Electronically signed by: Shannon Long [facility]([phone]), at 12/21/2018 11:02 AM Louis De La O MD IMG DX ORDERABLES documented in this encounter Visit Diagnoses Diagnosis Coronary artery disease of [place] heart with stable angina pectoris, unspecified vessel or lesion type documented in this encounter Care Teams Museum Registrar Relationship Specialty Start Date End Date Antonella Lucas PA [address] [place] [address] PCP - General Family Medicine 05/06/17 11/01/19 documented as of this encounter
--- OUTSIDE RECORDS SUMMARY | 2023-12-04 00:38 | XMS_ITS | Encounter Summary ---
Author Organization [facility] Address [facility] [place] [address] Care Team Providers Care Fire Services Plumber Name Role Phone Lance Antonella ARRIAGA Primary Care Provider [phone]- [phone] Reason for Visit * Auth/Cert Specialty Diagnoses [...] Expiration Date Visits Re quested Visits Authorized [id number] 1 1 Encounter Details Date Type Department Care Team ([facility] Contact Info) Description 12/23/2018 7:26 AM EDT Anesthesia Event [place] [address] Vira Bañuelos MD [facility] [place] [address] Marlo Baker Anesthesia Record Procedure Summary Procedure [...] (puncture site at groin for EVH); 11/11/21 ([employer] 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 RA#[id number]); 1715 (LDA 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 RA#[id number]) 12/23/18 0000 by Moncho Humphrey RN 11/11/21 1715 by Pro High Drain/Device Site 12/23/18; Right; med ial; knee; collapsible closed device; Chlorhexidine Tegaderm; 12/23/18; 199912/23/18 0000 by Moncho Humphrey RN 12/23/181999 by lAvina Henson RN Chest Tube 12/23/18; Left; ante [...] cephalic vein (lateral side of arm), right; [id number] catheter system; 18 gauge, 1 in length; [...] Bañuelos MD 12/23/18 1445 by Lisa Plaza [employer]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) Percutaneous Central Line - Single Lumen [...] EDT Department of Anesthesiology Post-procedure Note Patient: eBar Gamboa Procedure Summary Date: 12/23/18 Room / Location: [facility] OR [address] [place] [address] MAIN OR Anesthesia Start: 725 Anesthesia Stop: 1116 Procedures: @CABG, USING ARTERIAL GRAFT;SINGLE ARTERIAL GRAFT (WRVU 33.75) (N/A Chest) ENDOSCOPIC HARVEST VEIN(S) FOR CABG (WRVU 0.31) (N/A Leg) @CABG, VENOUS & ARTERIAL GRAFT;SINGLE VEIN GRAFT (WRVU 3.61) (N/A Chest) Diagnosis: Coronary artery disease of [place] heart with stable angina pectoris, unspecified vessel or lesion type (CAD) Surgeon: Louis De La O MD Responsible Provider: Vira Bañuelos MD Anesthesia Type: general ASA Status: 3 All Anesthesia Providers: Anesthesiologist: Vira Bañuelos MD Student Nurse Dye Machine Operator: Marlo Baker Vitals Value Taken Time BP Temp 36.9 ??C (98.42 ??F) 12/23/2018 6:28 PM Pulse 86 12/23/2018 6:28 PM Resp 18 12/23/2018 6:28 PM SpO2 98 % 12/23/2018 6:28 PM Pain Level 2 12/23/2018 6:00 PM Vitals shown include unvalidated device data. Patient Location: [facility] Level of Consciousness: Awake and Alert [...] CIS - Coronary artery disease inferior STEMI [facility] 02/23/09: proximal RCA, COGENERATION OPERATOR LAD. BMS to prox. RCA, BMS [...] blood products. Plan discussed with attending and ESTIMATE CLERK. PAT Clinic Note documented in this encounter [...] mg documented in this encounter Care Teams Fire Services Plumber Relationship Specialty Start Date End Date Antonella Lucas PA [address] [place] [address] PCP - General Family Medicine 05/06/17 11/01/19 documented as of this encounter
--- OUTSIDE RECORDS SUMMARY | 2023-12-04 00:38 | XMS_ITS | Encounter Summary ---
Author Organization [facility] Address [facility] [place] [address] Care Team Providers Care Insurance And Benefits Clerk Name Role Phone Antonella Lucas Primary Care Provider [phone] Reason for Referral * Consultation (Routine) - Specialty Diagnoses / Procedures Referred By Contac t Referred To Contact Cardiac Rehabilitation Diagnoses S/P CABG x 2 Louis De La O MD [facility] [place] [address] Referral ID Status Reason Start Date Expiration Date V isits Requested Visits Authorized [id number] Consult, Test & Treat 12/27/2018 06/25/2019 36 36 * Diagnostic Test (Routine) - Closed Specialty Diagnoses / Procedures Referred By Contac t Referred To Contact Radiology Diagnoses S/P CABG x [address] Chest wo Contrast (Generic) Luz Myles [place] [facility] [place] [address] [facility] [place] [address] Referral ID Status Reason Start Date Expiration Date V isits Requested Visits Authorized [id number] Closed Specialty Service Requested 12/27/2018 12/27/2019 1 [...] Expiration Date Visits Re quested Visits Authorized [id number] 1 1 Encounter Details Date Type Department Care Team (Latest Contact Info) Description 12/23/2018 5:43 AM EDT - 12/27/2018 2:03 PM EDT Hospital Encounter Intermediate [place] [address] Louis De La O MD CKD (chronic kidney disease) stage 4, GFR 15-29 ml/min; ASCVD (arteriosclerotic cardiovascular disease); Coronary artery disease of [place] heart with stable angina pectoris, unspecified vessel [...] Patient Age: 68 y.o. Birthdate: 1950 Language: Samoan Race: White Ethnicity: Not nor Admit Date: [...] study as scheduled. Inpatient Provider Contact Information: [facility] of [facility]iac [facility] [place] [address] FAX [phone] Discharge Diagnoses (Hospital Problems) Primary Diagnoses: CAD [...] by Louis De La O MD at [facility] MAIN OR ??? PRO CABG, ARTERY-VEIN, SINGLE N/A 12/23/2018 @CABG, VENOUS & ARTERIAL GRAFT;SINGLE VEIN GRAFT (WRVU 3.61) performed by Louis De La O MD at [facility] MAIN OR ??? PRO ENDOSCOPY W/VIDEO-ASST VEIN HARVEST, CABG N/A 12/23/2018 ENDOSCOPIC HARVEST VEIN(S) FOR CABG (WRVU 0.31) performed by Louis De La O MD at [facility] MAIN OR Prior To Admission [...] s/p CABGx2 Bear Gamboa was admitted to [facility] on 12/23/2018 via the Same Day Program. [...] La O and/or the Cardiac Surgery Physician Fire Investigator Team may be reached at . Weight: [...] Dr. Louis Boston. You may use a [place] Track or treadmill but avoid any pulling [...] friends, go to a movie, go to anabaptist, etc. Heavy activities: No hunting, skiing, jogging, [...] should resume a low fat, low cholesterol, [place] Heart [employer] Diet/Diabetic diet. Driving: No driving [...] the outpatient Phase 2 Cardiac Rehabilitation at [facility] . The patient agrees to a referral to this program. The referral will be sent at discharge and the patient should be contacted by the Program within 1- 2 weeks from discharge. 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 Other pertinent information: Stat read required?: Does patient require sedation?: GA rationale: Date of injury if applicable: Requested Time: EKG 12 Lead [28344 CPT(R)] 01/27/2019 (Approximate) 07/29/2019 Process Instructions: Scheduling Instructions: Questions: Which DH location will this be performed?: [place] Is a rhythm strip needed?: No XR Chest PA & Lateral (Generic) [95541 08727 Custom] 01/27/2019 (Approximate) 07/29/2019 Process Instructions: Scheduling Instructions: Questions: Where will study be performed?: [facility] Radiology Portable exam?: Reason for exam and clinical history: s/p CABG Other pertinent information: Stat read required?: Date of injury if applicable: Requested Time: Referral to Cardiac Rehab [[id number] Custom] As directed Process Instructions: If no progress note charted, please enter Clinical details in comments. Scheduling Instructions: Questions: My question or request is: Pt will participate in cardiac rehab@ [facility] Referral to Home Health - at DISCHARGE [IFT8713 CPT(R)] As directed Process Instructions: Scheduling Instructions: Comments: DOCUMENTATION FOR VNA SERVICES (INCLUDING THOSE PATIENTS WITH MEDICARE COVERAGE REQUIRING HOME VNA SERVICES AND/OR HOSPICE SERVICES) PATIENT'S LOCATION: Bear Gamboa [address] [place] [address] [address] [facility] [address] Industrial Coffee Grinder's Name: india Pichardo In discussion with the attending physician, it is certified that this patient is under their care and that they, or a Nurse Practitioner, or Physician Fire Investigator who is working directly with them, hada [...] for services as follows: HOME HEALTH AGENCY: [facility]. PHONE: [phone] FAX: [phone] RN orders: Cardiopulmonary assessment, incisional assessment, assess [...] issues please call the Cardiac SurgeryOffice at [phone] FOR MEDICARE ONLY: (please delete this section [...] noted. Questions: Agency name and contact information: [facility] Patient location post discharge: home What services are requested: Registered Nurse Physical Therapy Start date: Responsible MD post discharge contact info: PCP Arrangements for VNA/home care: As above. VN RN OR PCP TO PLEASE REMOVE CHEST TUBE SUTURES ON OR AFTER 01/02/19 Signed: BART James [facility] [place] [address] FAX [phone] Date: 12/27/2018 CC: BART Miller Anil K, MD [address] [place] [phone] documented in this encounter Discharge Instructions * [...] La O and/or the Cardiac Surgery Physician Fire Investigator Team may be reached at . ?? [...] Dr. Louis Boston. You may use a [place] Track or treadmill but avoid any pulling [...] friends, go to a movie, go to anabaptist, etc. ?? Heavy activities: No hunting, skiing, jogging, snow shoveling, snowmobiling, lawn mowing, swimming,golf or tennis until after your return appointment with the surgeon. Do not ride motorcycles, ATDailyWorth'stractors or horses. Avoid the use of a [...] should resume a low fat, low cholesterol, [place] Heart Association Diet/Diabetic diet. ?? Driving: No [...] the outpatient Phase 2 Cardiac Rehabilitation at [facility]??Hospital . ?? The patient agrees to a referral to this program.? The referral will be sent at discharge and the patient should be contacted by the Program within 1- 2 weeks from discharge. * Attachments The following attachments cannot be sent through Care Everywhere. * Smoking: Stopping (Samoan) * Smoking Cessation: Health Benefits: General Info (Samoan) documented in this encounter Medications at Time [...] oz) -- Weight Source Standing Scale -- [id number]: Mr. Gamboa is progressing well and is expected to be discharged today. Central labs were drawn and sent to [facility] for processing/shipping. He was asked some clarifying [...] 1130 12/23/18 1200 12/23/18 1300 Urethral Catheter 12/23/18 07 Placement Date/Time: 12/23/18699 [...] 2249 12/24/18 0000 12/24/18 0200 Urethral Catheter 12/23/18 07 Placement Date/Time: 12/23/18699 Perioperative Indication: Surgery longer than 2 hours Urethral Catheter Type: indwelling double lumen catheter;indwelling single lumen catheter Placement/Insertion:inserted at this facility Urine Output (mL) 75 150 100 12/24/18 0400 12/24/18 0600 12/24/18 0800 Urethral Catheter 12/23/18 07 Placement Date/Time: 12/23/18699 Perioperative Indication: Surgery longer than 2 hours Urethral Catheter Type: indwelling double lumen catheter;indwelling single lumen catheter Placement/Insertion:inserted at this facility Urine Output (mL) 100 100 110 12/24/18 1000 12/24/18 1200 12/24/18 1400 Urethral Catheter 12/23/18 07 Placement Date/Time: 12/23/18699 [...] facility Urine Output (mL) 725 300 325 [id number] study: the above documents Mr. Gamboa's urine output from arrival to [facility] to over 24 hourspost study medication administration. [...] oz) -- Weight Source Standing Scale -- [id number] study: Central labs were drawn and sent to [facility] for processing/shipping. * Shavon Dunne RN - [...] of chest tube output as required by LIF650 study. * Aidan Valenzuela PA - 12/24/2018 [...] Central labs were drawn and sent to [facility] for processing/shipping. * Aidan Valenzuela PA - [...] INJURY (DANIELA) FOLLOWING CARDIAC SURGERY STUDY NUMBER: [id number] Phase 3 for Prevention of MAKE in Subjects at High Risk for DANIELA Following Cardiac Surgery Principle Biofuels Technology Development Manager: Marlo Keith MD, MS Following informed consent and confirmation that the subject met all inclusion criteria and that noexclusion criteria were met, the subject was randomized via [email or web address] per protocol. Subject eligibility, hemodynamic stability, and [...] oxyCODONE Central labs: drawn and sent to [facility] for processing/shipping * Shavon Dunne RN - [...] The above represents baseline/Day-1 data for the ZJR679 study; data collected in SDP prior to surgery. Central labs were drawn [...] - Coronary artery disease ? inferior STEMI [facility] 02/23/09: proximal RCA, RETAIL EVENT AND SALES ASSISTANT LAD. BMS to prox. RCA, BMS to [...] None ? Gets together: None ? Attends shinto service: None ? Active member of club [...] - Coronary artery disease ? inferior STEMI [facility] 02/23/09: proximal RCA, RETAIL EVENT AND SALES ASSISTANT LAD. BMS to prox. RCA, BMS to [...] None ? Gets together: None ? Attends shinto service: None ? Active member of club [...] Smyth RN - 12/27/2018 10:50 AM EDT [facility] CARDIAC REHABILITATION Bear Gamboa was seen today regarding participation in the outpatient Phase 2 Cardiac Rehabilitation at [facility] . The patient agrees to a [...] by Louis De La O MD at [facility] MAIN OR ??? PRO CABG, ARTERY-VEIN, SINGLE N/A 12/23/2018 @CABG, VENOUS & ARTERIAL GRAFT;SINGLE VEIN GRAFT (WRVU 3.61) performed by Louis De La O MD at [facility] MAIN OR ??? PRO ENDOSCOPY W/VIDEO-ASST VEIN HARVEST, CABG N/A 12/23/2018 ENDOSCOPIC HARVEST VEIN(S) FOR CABG (WRVU 0.31) performed by Louis De La O MD at [facility] MAIN OR Social History: Home [...] outlinedin this evaluation. Time IN / OUT: 1706-2834 Total Evaluation Minutes, Physical Therapy: 15(eval) Jazmin Aleman, PT, DPT Pager: [phone] Physical Therapy Inpatient Rehabilitation Department * Plan [...] Ongoing (Interventions Implemented as Appropriate) 12/24/18193212/25/18 0800 12/25/18 1459 Ortega Fall Risk History [...] to sleep * Initial Assessments - Jazmin Jose, MARTIN - 12/23/2018 3:31 PM EDT Office of [...] Hospitalizations Within the Past 30 Days: no [facility] admits in last 30 days. Anticipated Length Of Stay (If known): 5-7 days Current Decision-Making Capacity: Patient is A&Ox4 and able to make all medical decisions Advance Care Planning: Full Code Not in EPIC. Would like to complete during this hospitalization, APPRENTICE notified Current Coping/Education/Information Needs: Current coping questions and concerns have been addressed. Current Functional Ability: assist of staff Functional Status Prior to Admission: independent with ADLs, driving, works part-time. Home Environment: lives in 3 level house, stays mainly on 1st level.Has bedroom and bathroom on first level. 3 steps to enter no railings [address] [facility] [address] Social & Family Supports/Community Resources: lives alone. [...] N/AMedicaid [place] Prescription Coverage: Yes Preferred Pharmacy: [facility] [place], [place] - [address] AT Portal to [facility] [employer] Sites [address] [facility] [address] [id number] [place], [place] - [address] [place] [address]. AT [address] OF [facility] [address] [place] [address] Other: none Primary Care Provider: BART Miller [phone] Patient/Caregiver Goals of Treatment: return to previous level of function Potential Needs for Transition of Care: Discussed with patient and family levels of rehab includingSNF, swing, acute and VNA home health and hospice care also discussed. Discussed need to accept first bed available when patient is medically ready. Rehab/SNF: TBD Home Health: [facility] pended for RN/PT DME: tbd Transportation: car by india Pichardo Other: none Anticipated Barriers to Discharge/Special Considerations: none vs anticipated barriers to arise as hospitalization continues. Assessment: patient is admitted to CT service for CABG, final discharge disposition tbd by hospitalcourse and PT evaluation, VNA referral pended for RN/PT. The patient/eligibility services representative has been provided a list of Home Health Agencies/DME vendors which servetheir preferred geographic area. A letter describing our affiliations was reviewed with them and they were educated about their right to choose where referrals are placed. Patient requests referral to [facility] [employer]. PHONE: [phone] FAX: [phone] Expected date of discharge: TBD Referral routed to the Machine Specialist for matching with agency/vendor and to provide any required information. Plan: A member of the Care Management team will continue to monitor progress, follow for continuityof care and assist with transition of care planning. Jazmin Jose RN Nurse Simulation Software Engineer Pager [phone] * OR Attestation - Louis De La O MD - 12/23/2018 2:03 PM EDT Attestation: Case Date: 12/23/2018 I performed this procedure without the involvement of a resident. Louis De La O MD 12/28/2018 * Op Note - Louis De La O MD - 12/23/2018 2:03 PM EDT 12/28/2018 Bear Gamboa 1950 [id number] Preoperative Diagnosis: Coronary artery disease Stable Angina [...] the medial aspect of the knee. The [employer] XB7 system was used to dissect out [...] Operative Note Patient Name: Bear Gamboa : [id number] MR#: [id number] Case Date: 12/23/2018 Surgeon: Surgeon(s) and Role: [...] HC CBC,PLT & AUTO DIFF Routine 9 4:05 AM EDT HC TROPONIN T Routine [...] PM EDT BLOOD GAS ARTERIAL POC Routine 9 2:39 PM EDT POCT GLUCOSE Routine 12/23/2018 1:53 PM EDT BLOOD GAS ARTERIAL POC Routine 9 12:43 PM EDT EKG 12-LEAD STAT 12/23/2018 [...] 9:46 AM EDT Coronary artery disease of [place] heart with stable angina pectoris, unspecified vessel [...] AM EDT BLOOD GAS ARTERIAL POC Routine 8:15 AM EDT Cabg, Artery-Vein, Single ([id number]) 12/23/2018 7:31 AM EDT Coronary artery disease of [place] heart with stable angina pectoris, unspecified vessel or lesion type Endoscopy W/Video-Asst Vein [place], Cabg ([id number]) 12/23/2018 7:31 AM EDT Coronary artery disease of [place] heart with stable angina pectoris, unspecified vessel or lesion type Cabg, Arterial, Single ([id number]) 12/23/2018 7:31 AM EDT Coronary artery disease of [place] with stable angina pectoris, unspecified vessel [...] (Bezet) 420 ms MUSE SYSTEM Calculated P [place] 57 degrees MUSE SYSTEM Calculated R [place] 6 degrees MUSE SYSTEM Calculated T [place] 144 degrees MUSE SYSTEM INTERPRETATION Sinus rhythm [...] Unexpected Finding Louis De La O MD [facility] [place] ORDERABLES * XR Chest PA & [...] Glucose, POC 185 65 - 199 mg/dL [facility] Comment: Supplemental ranges: <140 mg/dL before meals <180 mg/dL all other times of the day Blood specimen (specimen) 12/27/2018 11:47 AM EDT 12/27/2018 11:47 AM EDT Louis De La O MD POINT OF CARE TEST ORDERABLES Performing Organization Address [facility] Co de Phone Number [facility] [place] [address] * POCT Glucose (12/27/2018 7:37 AM EDT) Glucose, POC 163 65 - 199 mg/dL [facility] Comment: Supplemental ranges: <140 mg/dL before meals <180 mg/dL all other times of the day Blood specimen (specimen) 12/27/2018 7:37 AM EDT 12/27/2018 7:37 AM EDT Louis De La O MD POINT OF CARE TEST ORDERABLES Performing Organization Address [facility] de Phone Number [facility] [place] [address] * Potassium (12/27/2018 4:57 AM EDT) Potassium 3.9 3.5 - 5.0 mmol/L [facility] Comment: Please note: ??Patients with [...] MD CHEMISTRY ORDERABLE S Performing Organization Address [facility] de Phone Number [facility] [place] [address] * POCT Glucose (12/26/2018 4:44 PM EDT) Glucose, POC 170 65 - 199 mg/dL [facility] Comment: Supplemental ranges: <140 mg/dL before meals <180 mg/dL all other times of the day Blood specimen (specimen) 12/26/2018 4:44 PM EDT 12/26/2018 4:44 PM EDT Louis De La O MD POINT OF CARE TEST ORDERABLES Performing Organization Address [facility] de Phone Number [facility] [place] [address] * XR Chest PA & Lateral (Generic) [...] Glucose, POC 221(H) 65 - 199 mg/dL [facility] Comment: Supplemental ranges: <140 mg/dL before meals <180 mg/dL all other times of the day Blood specimen (specimen) 12/26/2018 11:57 AM EDT 12/26/2018 11:57 AM EDT Louis De La O MD POINT OF CARE TEST ORDERABLES [facility] [place] [address] * POCT Glucose (12/26/2018 8:00 AM EDT) Glucose, POC 159 65 - 199 mg/dL [facility] Comment: Supplemental ranges: <140 mg/dL before meals <180 mg/dL all other times of the day Blood specimen (specimen) 12/26/2018 8:00 AM EDT 12/26/2018 8:00 AM EDT Louis De La O MD POINT OF CARE TEST ORDERABLES Performing Organization Address [facility] de Phone Number [facility] [place] [address] * (ABNORMAL) Differential, Automated (12/26/2018 4:52 AM EDT) Pathologist [facility] Neutrophil % 84.5 % [facility] Neutrophil Absolute 16.12(H) 1.70 - 6.10 x10(3)/mc L [facility] Lymph % 5.2 % [facility] Lymphocytes Abs 1.0 0.9 - 3.2 x10(3)/mc L [facility] Monocyte % 8.8 % [facility] Monocyte Abs 1.7(H) 0.3 - 0.9 x10(3)/mc L [facility] Eos % 0.2 % [facility] Eosinophils Abs 0.0 0.0 - 0.4 x10(3)/mc L [facility] Basophil % 0.3 % [facility] Baso Absolute 0.1 0.0 - 0.1 x10(3)/mc L [facility] Immature Gran % 1.00 % [facility] Comment: Immature granulocytes(IG's)percentage and absolute count will include metamyelocytes, myelocytes, and promyelocytes. Blood smears from CBCs yielding IG's will be scanned manually for concordance. If this scan disagrees with the automated IG or if promyelocytes are noted, a manual differential will be performed. Immature Gran Absolute 0.19(H) 0.00 - 0.04 x10(3)/ L [facility] Blood specimen (specimen) 12/26/2018 4:52 AM EDT 12/26/2018 5:11 AM EDT Narrative Resulting Agency Comment Spec In Lab Aidan ARRIAGA HEMATOLOGY ORDERABLE S [facility] [place] [address] * (ABNORMAL) Hemogram (12/26/2018 4:52 AM EDT) White Blood Cell 19.1(H) 4.0 - 9.5 x10(3)/[facility]AT[facility] Red Blood Cell 4.38(L) 4.58 - 5.54 x10(6)/ L [facility] Hemoglobin 13.0(L) 13.7 - 16.5 gm/dL [facility] Hematocrit 40.0(L) 40.5 - 48.5 % [facility] Mean Cell Volume 91.3 82.9 - 93.1 fL [facility] Mean Cell Hemoglobin 29.7 27.5 - 32.1 pg [facility] Mean Cell Hemoglobin Concentration 32.5 32.0 - 35.7 gm/dL [facility] Platelet 171 145 - 357 x10(3)/ L [facility] RDW Standard Deviation 46.0(H) 36.0 - 45.0 fL [facility] RDW coefficient of variation 13.5 11.4 - 13.8 % [facility] Mean Platelet Volume 9.8 7.6 - 12.9 [facility] LABORATORY NRBC% auto 0.0 % [facility] NRBC Absolute 0.000 0.000 - 0.000 x10(3)/ L [facility] Blood specimen (specimen) 12/26/2018 4:52 AM EDT 12/26/2018 5:11 AM EDT Narrative Resulting Agency Comment Spec In Lab Aidan ARRIAGA HEMATOLOGY ORDERABLE S [facility] [place] [address] * (ABNORMAL) Basic Metabolic Panel (non-fasting) (12/26/2018 4:52 AM EDT) Glucose 172 65 - 199 mg/dL [facility] Comment:Diabetes: >=200 mg/d L plus symptoms Blood Urea Nitrogen 21(H) 10 - 20 mg/dL [facility] Creatinine 1.34 0.80 - 1.50 mg/dL [facility] Sodium 133(L) 135 - 145 mmol/L [facility] Potassium 3.7 3.5 - 5.0 mmol/L [facility] Comment: Please note: ??Patients with WBC >100,000 may have falsely elevated Potassium levels. ??For accurate Potassium quantification in these patients send serum separator tube (gold top) for subsequent determinations. ??Contact the Clinical Chemistry Laboratory if there are any questions. Chloride 99 98 - 107 mmol/L [facility] Carbon Dioxide 22 22 - 31 mmol/L [facility] Anion Gap 12 5 - 15 mmol/L [facility] Calcium 8.6 8.5 - 10.5 mg/dL [facility] Est Glomerular Filtration Rate 55(L) >=60 mL/min/1. 73 m?? [facility] Comment: The eGFR was calculated using the CKD-EPI equation. As with all creatinine based estimates of kidney function, eGFR values calculated with the CKD-EPI equation are not accurate in patients with acute kidney failure, extremes of body mass or the acutely ill. http://Evver/DHnkf eGFR 64 >=60 mL/min/1. 73 m?? [facility] Comment: The eGFR was calculated using the CKD-EPI equation. As with all creatinine based estimates of kidney function, eGFR values calculated with the CKD-EPI equation are not accurate in patients with acute kidney failure, extremes of body mass or the acutely ill. http://[employer].Synata/DHMCnkf Blood specimen (specimen) 12/26/2018 4:52 AM EDT 12/26/2018 5:11 AM EDT Narrative Resulting Agency Comment Spec In Lab Louis De La O MD CHEMISTRY ORDERABLE S Performing Organization Address City/[facility] Co de Phone Number [facility] [place] [address] * (ABNORMAL) POCT Glucose (12/25/2018 7:55 PM EDT) Glucose, POC 217(H) 65 - 199 mg/dL [facility] Comment: Supplemental ranges: <140 mg/dL before meals <180 mg/dL all other times of the day Blood specimen (specimen) 12/25/2018 7:55 PM EDT 12/25/2018 7:55 PM EDT Louis De La O MD POINT OF CARE TEST ORDERABLES Performing Organization Address [facility] Co de Phone Number [facility] [place] [address] * POCT Glucose (12/25/2018 3:35 PM EDT) Glucose, POC 170 65 - 199 mg/dL [facility] Comment: Supplemental ranges: <140 mg/dL before meals <180 mg/dL all other times of the day Blood specimen (specimen) 12/25/2018 3:35 PM EDT 12/25/2018 3:35 PM EDT Louis De La O MD POINT OF CARE TEST ORDERABLES Performing Organization Address City/[facility]/ZIP Co de Phone Number [facility] [place] [address] * POCT Glucose (12/25/2018 11:21 AM EDT) Glucose, POC 196 65 - 199 mg/dL [facility] Comment: Supplemental ranges: <140 mg/dL before meals <180 mg/dL all other times of the day Blood specimen (specimen) 12/25/2018 11:21 AM EDT 12/25/2018 11:21 AM EDT Louis De La O MD POINT OF CARE TEST ORDERABLES Performing Organization Address [facility] de Phone Number [facility] [place] [address] * POCT Glucose (12/25/2018 7:50 AM EDT) Glucose, POC 164 65 - 199 mg/dL [facility] Comment: Supplemental ranges: <140 mg/dL before meals <180 mg/dL all other times of the day Blood specimen (specimen) 12/25/2018 7:50 AM EDT 12/25/2018 7:50 AM EDT Louis De La O MD POINT OF CARE TEST ORDERABLES Performing Organization Address [facility] de Phone Number [facility] [place] [address] * Potassium (12/25/2018 5:41 AM EDT) Potassium 4.1 3.5 - 5.0 mmol/L [facility] Comment: Please note: ??Patients with [...] MD CHEMISTRY ORDERABLE S Performing Organization Address [facility]/ZIP Co de Phone Number [facility] [place] [address] * POCT Glucose (12/24/2018 7:54 PM EDT) Glucose, POC 175 65 - 199 mg/dL [facility] Comment: Supplemental ranges: <140 mg/dL before meals <180 mg/dL all other times of the day Blood specimen (specimen) 12/24/2018 7:54 PM EDT 12/24/2018 7:54 PM EDT Louis De La O MD POINT OF CARE TEST ORDERABLES [facility] [place] [address] * POCT Glucose (12/24/2018 4:18 PM EDT) Glucose, POC 189 65 - 199 mg/dL [facility] Comment: Supplemental ranges: <140 mg/dL before meals <180 mg/dL all other times of the day Blood specimen (specimen) 12/24/2018 4:18 PM EDT 12/24/2018 4:18 PM EDT Louis De La O MD POINT OF CARE TEST ORDERABLES Performing Organization Address City/[facility]/ZIP Co de Phone Number [facility] [place] [address] * POCT Glucose (12/24/2018 2:17 PM EDT) Glucose, POC 149 65 - 199 mg/dL [facility] Comment: Supplemental ranges: <140 mg/dL before meals <180 mg/dL all other times of the day Blood specimen (specimen) 12/24/2018 2:17 PM EDT 12/24/2018 2:17 PM EDT Louis De La O MD POINT OF CARE TEST ORDERABLES [facility] [place] [address] * POCT Glucose (12/24/2018 12:09 PM EDT) Glucose, POC 163 65 - 199 mg/dL [facility] Comment: Supplemental ranges: <140 mg/dL before meals <180 mg/dL all other times of the day Blood specimen (specimen) 12/24/2018 12:09 PM EDT 12/24/2018 12:09 PM EDT Louis De La O MD POINT OF CARE TEST ORDERABLES [facility] [place] [address] * POCT Glucose (12/24/2018 10:30 AM EDT) Glucose, POC 168 65 - 199 mg/dL [facility] Comment: Supplemental ranges: <140 mg/dL before meals <180 mg/dL all other times of the day Blood specimen (specimen) 12/24/2018 10:30 AM EDT 12/24/2018 10:30 AM EDT Louis De La O MD POINT OF CARE TEST ORDERABLES [facility] [place] [address] * POCT Glucose (12/24/2018 7:45 AM EDT) Glucose, POC 141 65 - 199 mg/dL [facility] Comment: Supplemental ranges: <140 mg/dL before meals <180 mg/dL all other times of the day Blood specimen (specimen) 12/24/2018 7:45 AM EDT 12/24/2018 7:45 AM EDT Louis De La O MD POINT OF CARE TEST ORDERABLES [facility] [place] [address] * POCT Glucose (12/24/2018 6:13 AM EDT) Glucose, POC 151 65 - 199 mg/dL [facility] Comment: Supplemental ranges: <140 mg/dL before meals <180 mg/dL all other times of the day Blood specimen (specimen) 12/24/2018 6:13 AM EDT 12/24/2018 6:13 AM EDT Louis De La O MD POINT OF CARE TEST ORDERABLES Performing Organization Address City/[facility]/ZIP Co de Phone Number [facility] [place] [address] * POCT Glucose (12/24/2018 4:06 AM EDT) Glucose, POC 161 65 - 199 mg/dL [facility] Comment: Supplemental ranges: <140 mg/dL before meals <180 mg/dL all other times of the day Blood specimen (specimen) 12/24/2018 4:06 AM EDT 12/24/2018 4:06 AM EDT Louis De La O MD POINT OF CARE TEST ORDERABLES Performing Organization Address [facility]/[place] Co de Phone Number [facility] [place] [address] * Scan, Peripheral Blood (12/24/2018 4:05 AM EDT) Pathologist [facility] Plat estimate Normal [facility] RBC Morphology Normal [facility] Blood specimen (specimen) 12/24/2018 4:05 AM EDT 12/24/2018 4:14 AM EDT Narrative Resulting Agency Comment Spec In Lab Aidan ARRIAGA HEMATOLOGY ORDERABLE S Performing Organization Address [facility]/ZIP Co de Phone Number [facility] [place] [address] * (ABNORMAL) Differential, Automated (12/24/2018 4:05 AM EDT) Neutrophil % 81.7 % [facility] Neutrophil Absolute 11.87(H) 1.70 - 6.10 x10(3)/[facility] Lymph % 6.8 % [facility] Lymphocytes Abs 1.0 0.9 - 3.2 x10(3)/[facility] Monocyte % 10.8 % [facility] Monocyte Abs 1.6(H) 0.3 - 0.9 x10(3)/[facility] Eos % 0.1 % [facility] Eosinophils Abs 0.0 0.0 - 0.4 x10(3)/[facility] Basophil % 0.3 % [facility] Baso Absolute 0.0 0.0 - 0.1 x10(3)/[facility] Immature Gran % 0.30 % [facility] Comment: Immature granulocytes(IG's)percentage and absolute count will include metamyelocytes, myelocytes, and promyelocytes. Blood smears from CBCs yielding IG's will be scanned manually for concordance. If this scan disagrees with the automated IG or if promyelocytes are noted, a manual differential will be performed. Immature Gran Absolute 0.05(H) 0.00 - 0.04 x10(3)/[facility] Blood specimen (specimen) 12/24/2018 4:05 AM EDT 12/24/2018 4:14 AM EDT Narrative Resulting Agency Comment Spec In Lab Aidan ARRIAGA HEMATOLOGY ORDERABLE S [facility] [place] [address] * (ABNORMAL) Hemogram (12/24/2018 4:05 AM EDT) White Blood Cell 14.5(H) 4.0 - 9.5 x10(3)/[facility] Red Blood Cell 4.58 4.58 - 5.54 x10(6)/mc L [facility] Hemoglobin 13.6(L) 13.7 - 16.5 gm/dL [facility] Hematocrit 41.0 40.5 - 48.5 % [facility] Mean Cell Volume 89.5 82.9 - 93.1 fL [facility] Mean Cell Hemoglobin 29.7 27.5 - 32.1 pg [facility] Mean Cell Hemoglobin Concentration 33.2 32.0 - 35.7 gm/dL [facility] Platelet 164 145 - 357 x10(3)/mc L [facility] RDW Standard Deviation 45.2(H) 36.0 - 45.0 fL [facility] RDW coefficient of variation 13.7 11.4 - 13.8 % [facility] Mean Platelet Volume 9.3 7.6 - 12.9 [facility] NRBC% auto 0.0 % [facility] NRBC Absolute 0.000 0.000 - 0.000 x10(3)/mc L [facility] Blood specimen (specimen) 12/24/2018 4:05 AM EDT 12/24/2018 4:14 AM EDT Narrative Resulting Agency Comment Spec In Lab Aidan ARRIAGA HEMATOLOGY ORDERABLE S [facility] [place] [address] * (ABNORMAL) Basic Metabolic Panel (non-fasting) (12/24/2018 4:05 AM EDT) Glucose 173 65 - 199 mg/dL [facility] Comment:Diabetes: >=200 mg/d L plus symptoms Blood Urea Nitrogen 17 10 - 20 mg/dL [facility] Creatinine 1.12 0.80 - 1.50 mg/dL [facility] Sodium 137 135 - 145 mmol/L [facility] Potassium 4.9 3.5 - 5.0 mmol/L [facility] Comment: Please note: ??Patients with WBC >100,000 may have falsely elevated Potassium levels. ??For accurate Potassium quantification in these patients send serum separator tube (gold top) for subsequent determinations. ??Contact the Clinical Chemistry Laboratory if there are any questions. Chloride 105 98 - 107 mmol/L [facility] Carbon Dioxide 21(L) 22 - 31 mmol/L [facility] Anion Gap 11 5 - 15 mmol/L [facility] Calcium 8.5 8.5 - 10.5 mg/dL [facility] Est Glomerular Filtration Rate 68 >=60 mL/min/1. 73 m?? [facility] Comment: The eGFR was calculated using the CKD-EPI equation. As with all creatinine based estimates of kidney function, eGFR values calculated with the CKD-EPI equation are not accurate in patients with acute kidney failure, extremes of body mass or the acutely ill. [email or web address]/[facility] CITYnkf eGFR 79 >=60 mL/min/1. 73 m?? [facility] Comment: The eGFR was calculated using the CKD-EPI equation. As with all creatinine based estimates of kidney function, eGFR values calculated with the CKD-EPI equation are not accurate in patients with acute kidney failure, extremes of body mass or the acutely ill. http://Evver/[facility]nkf Blood specimen (specimen) 12/24/2018 4:05 AM EDT 12/24/2018 4:14 AM EDT Narrative Resulting Agency Comment Spec In Lab Louis De La O MD CHEMISTRY ORDERABLE S [facility] [place] [address] * (ABNORMAL) Troponin (12/24/2018 4:05 AM EDT) Troponin-T 0.17(H) 0.00 - 0.00 ng/mL [facility] Comment: The 99th percentile for Troponin T is less than 0.01 ng/mL, any detectable cTnT concentration using this assay should be considered elevated. According to the third universal definition of myocardial infarction the following criteria with a clinical presentation consistent with acute myocardial ischemia meets the diagnosis for a myocardial infarction ([place]). Detection of a rise and/or fall of cTnT, with at least one value greater than the 99th percentile (> or = 0.01) and with at least one of the following ?? Symptoms of ischemia ?? New or presumed new significant TY-[id number]-M wave (ST-T) changes or new left bundle [...] additional sample may be indicated. Reference: Third Firth Definition of Myocardial Infarction. Journal of the [place] [employer] 2012;60:1581-98 Blood specimen (specimen) 12/24/2018 4:05 AM EDT 12/24/2018 4:14 AM EDT Narrative Resulting Agency Comment Spec In Lab Louis De La O MD CHEMISTRY ORDERABLE S Performing Organization Address City/[facility]/ZIP Co de Phone Number [facility] [place] [address] * POCT Glucose (12/24/2018 3:03 AM EDT) Glucose, POC 143 65 - 199 mg/dL [facility] Comment: Supplemental ranges: <140 mg/dL before meals <180 mg/dL all other times of the day Blood specimen (specimen) 12/24/2018 3:03 AM EDT 12/24/2018 3:03 AM EDT Louis De La O MD POINT OF CARE TEST ORDERABLES [facility] [place] [address] * POCT Glucose (12/24/2018 2:10 AM EDT) Glucose, POC 142 65 - 199 mg/dL [facility] Comment: Supplemental ranges: <140 mg/dL before meals <180 mg/dL all other times of the day Blood specimen (specimen) 12/24/2018 2:10 AM EDT 12/24/2018 2:10 AM EDT Louis De La O MD POINT OF CARE TEST ORDERABLES [facility] [place] [address] * POCT Glucose (12/24/2018 1:01 AM EDT) Glucose, POC 115 65 - 199 mg/dL [facility] Comment: Supplemental ranges: <140 mg/dL before meals <180 mg/dL all other times of the day Blood specimen (specimen) 12/24/2018 1:01 AM EDT 12/24/2018 1:01 AM EDT Louis De La O MD POINT OF CARE TEST ORDERABLES Performing Organization Address City/[facility]/ZIP Co de Phone Number [facility] [place] [address] * POCT Glucose (12/24/2018 12:21 AM EDT) Glucose, POC 141 65 - 199 mg/dL [facility] Comment: Supplemental ranges: <140 mg/dL before meals <180 mg/dL all other times of the day Blood specimen (specimen) 12/24/2018 12:21 AM EDT 12/24/2018 12:21 AM EDT Louis De La O MD POINT OF CARE TEST ORDERABLES [facility] [place] [address] * POCT Glucose (12/23/2018 9:51 PM EDT) Glucose, POC 123 65 - 199 mg/dL [facility] Comment: Supplemental ranges: <140 mg/dL before meals <180 mg/dL all other times of the day Blood specimen (specimen) 12/23/2018 9:51 PM EDT 12/23/2018 9:51 PM EDT Louis De La O MD POINT OF CARE TEST ORDERABLES [facility] [place] [address] * POCT Glucose (12/23/2018 8:53 PM EDT) Glucose, POC 127 65 - 199 mg/dL [facility] Comment: Supplemental ranges: <140 mg/dL before meals <180 mg/dL all other times of the day Blood specimen (specimen) 12/23/2018 8:53 PM EDT 12/23/2018 8:53 PM EDT Louis De La O MD POINT OF CARE TEST ORDERABLES Performing Organization Address City/[facility]/ZIP Co de Phone Number [facility] [place] [address] * POCT Glucose (12/23/2018 8:04 PM EDT) Glucose, POC 103 65 - 199 mg/dL [facility] Comment: Supplemental ranges: <140 mg/dL before meals <180 mg/dL all other times of the day Blood specimen (specimen) 12/23/2018 8:04 PM EDT 12/23/2018 8:04 PM EDT Louis De La O MD POINT OF CARE TEST ORDERABLES [facility] [place] [address] * POCT Glucose (12/23/2018 6:54 PM EDT) Glucose, POC 94 65 - 199 mg/dL [facility] Comment: Supplemental ranges: <140 mg/dL before meals <180 mg/dL all other times of the day Blood specimen (specimen) 12/23/2018 6:54 PM EDT 12/23/2018 6:54 PM EDT Louis De La O MD POINT OF CARE TEST ORDERABLES [facility] [place] [address] * POCT Glucose (12/23/2018 6:30 PM EDT) Glucose, POC 86 65 - 199 mg/dL [facility] Comment: Supplemental ranges: <140 mg/dL before meals <180 mg/dL all other times of the day Blood specimen (specimen) 12/23/2018 6:30 PM EDT 12/23/2018 6:30 PM EDT Louis De La O MD POINT OF CARE TEST ORDERABLES Performing Organization Address City/[facility]/ZIP Co de Phone Number [facility] [place] [address] * POCT Glucose (12/23/2018 5:59 PM EDT) Glucose, POC 99 65 - 199 mg/dL [facility] Comment: Supplemental ranges: <140 mg/dL before meals <180 mg/dL all other times of the day Blood specimen (specimen) 12/23/2018 5:59 PM EDT 12/23/2018 5:59 PM EDT Louis De La O MD POINT OF CARE TEST ORDERABLES [facility] [place] [address] * POCT Glucose (12/23/2018 5:21 PM EDT) Glucose, POC 116 65 - 199 mg/dL [facility] Comment: Supplemental ranges: <140 mg/dL before meals <180 mg/dL all other times of the day Blood specimen (specimen) 12/23/2018 5:21 PM EDT 12/23/2018 5:21 PM EDT Louis De La O MD POINT OF CARE TEST ORDERABLES [facility] [place] [address] * POCT Glucose (12/23/2018 4:47 PM EDT) Glucose, POC 113 65 - 199 mg/dL [facility] Comment: Supplemental ranges: <140 mg/dL before meals <180 mg/dL all other times of the day Blood specimen (specimen) 12/23/2018 4:47 PM EDT 12/23/2018 4:47 PM EDT Louis De La O MD POINT OF CARE TEST ORDERABLES Performing Organization Address City/[facility]/ZIP Co de Phone Number [facility] [place] [address] * POCT Glucose (12/23/2018 4:20 PM EDT) Glucose, POC 122 65 - 199 mg/dL [facility] Comment: Supplemental ranges: <140 mg/dL before meals <180 mg/dL all other times of the day Blood specimen (specimen) 12/23/2018 4:20 PM EDT 12/23/2018 4:20 PM EDT Louis De La O MD POINT OF CARE TEST ORDERABLES Performing Organization Address City/[facility]/ZIP Co de Phone Number [facility] [place] [address] * Hemoglobin (12/23/2018 3:40 PM EDT) Hemoglobin 13.7 13.7 - 16.5 gm/dL [facility] Blood specimen (specimen) 12/23/2018 3:40 PM EDT 12/23/2018 3:56 PM EDT Narrative Resulting Agency Comment Spec In Lab Louis De La O MD HEMATOLOGY ORDERABL ES Performing Organization Address [facility]/[place] Co de Phone Number [facility] [place] [address] * Potassium (12/23/2018 3:40 PM EDT) [facility] Potassium 4.2 3.5 - 5.0 mmol/L [facility] Comment: Please note: ??Patients with [...] MD CHEMISTRY ORDERABLE S Performing Organization Address [facility]/[place] Co de Phone Number [facility] [place] [address] * POCT Glucose (12/23/2018 3:35 PM EDT) [facility] Glucose, POC 141 65 - 199 mg/dL [facility] Comment: Supplemental ranges: <140 mg/dL before meals <180 mg/dL all other times of the day Blood specimen (specimen) 12/23/2018 3:35 PM EDT 12/23/2018 3:35 PM EDT Louis De La O MD POINT OF CARE TEST ORDERABLES Performing Organization Address [facility]/[place] Co de Phone Number [facility] [place] [address] * (ABNORMAL) BLOOD GAS 2 ARTERIAL (12/23/2018 2:39 PM EDT) pH, Arterial 7.35 7.35 - 7.45 [facility] PCO2, Arterial 40 35 - 45 mmHg [facility] PO2, Arterial 114(H) 85 - 104 mmHg [facility] Bicarbonate, Arterial 21.3 20.0 - 26.0 mmol/L [facility] Base Excess, Arterial -4.4(L) -3.0 - 3.0 mmol/L [facility] Hgb Blood Gas 14.7 13.7 - 16.5 gm/dL [facility] Oxyhemoglobin, Arterial 96.7 94.0 - 97.0 % [facility] Carboxyhemoglob in, Arterial 0.2 % [facility] Comment: Nonsmokers: 0.5-1.5% COHB Smokers: Variable, but usually less than 10% Toxic: 20-30% COHB Lethal: Greater than 60% COHB Methemoglobin, Arterial 0.5 <=1.5 % [facility] Na Whole Blood 134(L) 135 - 145 mmol/L [facility] K Whole Blood 3.9 3.5 - 5.0 mmol/L [facility] Comment: Please note: Patients with WBC >100,000 may have falsely elevated Potassium levels. Contact the Clinical Chemistry Laboratory if there are any questions. ICa Whole Blood 1.21 1.15 - 1.33 mmol/L [facility] Comment: Note: ??Total bilirubin higher than 20 mg/dL may lead to falsely low ionized calcium. CL Whole Blood 106 98 - 107 mmol/L [facility] Gluc Whole Bld 171 65 - 199 mg/dL [facility] Comment:Diabetes: >=200 mg/d L plus symptoms. Lactate WB 2.9(H) 0.5 - 2.2 mmol/L [facility] FIO2 Art 40 % [facility] PF Ratio Art 285 [facility] Blood specimen (specimen) 12/23/2018 2:39 PM EDT 12/23/2018 2:39 PM EDT Louis De La O MD POINT OF CARE TEST ORDERABLES [facility] [place] [address] * POCT Glucose (12/23/2018 1:53 PM EDT) Glucose, POC 197 65 - 199 mg/dL [facility] Comment: Supplemental ranges: <140 mg/dL before meals <180 mg/dL all other times of the day Blood specimen (specimen) 12/23/2018 1:53 PM EDT 12/23/2018 1:53 PM EDT Louis De La O MD POINT [place] [address] * (ABNORMAL) BLOOD GAS 2 ARTERIAL (12/23/2018 12:43 PM EDT) [facility] pH, Arterial 7.36 7.35 - 7.45 [facility] PCO2, Arterial 34(L) 35 - 45 mmHg [facility] PO2, Arterial 154(H) 85 - 104 mmHg [facility] Bicarbonate, Arterial 19.2(L) 20.0 - 26.0 mmol/L [facility] Base Excess, Arterial -6.6(L) -3.0 - 3.0 mmol/L [facility] Hgb Blood Gas 14.4 13.7 - 16.5 gm/dL [facility] Oxyhemoglobin, Arterial 96.6 94.0 - 97.0 % [facility] Carboxyhemoglob in, Arterial 1.3 % [facility] Comment: Nonsmokers: 0.5-1.5% COHB Smokers: Variable, but usually less than 10% Toxic: 20-30% COHB Lethal: Greater than 60% COHB Methemoglobin, Arterial 0.6 <=1.5 % [facility] Na Whole Blood 134(L) 135 - 145 mmol/L [facility] K Whole Blood 3.6 3.5 - 5.0 mmol/L [facility] Comment: Please note: Patients with WBC >100,000 may have falsely elevated Potassium levels. Contact the Clinical Chemistry Laboratory if there are any questions. ICa Whole Blood 1.19 1.15 - 1.33 mmol/L [facility] Comment: Note: ??Total bilirubin higher than 20 mg/dL may lead to falsely low ionized calcium. CL Whole Blood 107 98 - 107 mmol/L [facility] Gluc Whole Bld 201(H) 65 - 199 mg/dL [facility] Comment:Diabetes: >=200 mg/d L plus symptoms. Lactate WB 2.0 0.5 - 2.2 mmol/L [facility] FIO2 Art 60 % [facility] PF Ratio Art 257 [facility] Temp Art 35.9 Celsius [facility] Blood specimen (specimen) 12/23/2018 12:43 PM EDT 12/23/2018 12:43 PM EDT Louis De La O MD POINT OF CARE TEST ORDERABLES [facility] [place] [address] * EKG 12 Lead (12/23/2018 12:06 PM EDT) Ventricular rate 64 BPM MUSE SYSTEM Atrial Rate 78 BPM MUSE SYSTEM P-R Interval 280 ms MUSE SYSTEM QRS Duration 92 ms MUSE SYSTEM Q-T Interval 408 ms MUSE SYSTEM QTC Calculated (Bezet) 420 ms MUSE SYSTEM Calculated P [place] 46 degrees MUSE SYSTEM Calculated R [place] 14 degrees MUSE SYSTEM Calculated T [place] 52 degrees MUSE SYSTEM INTERPRETATION Demand pacemaker; interpretation is based on intrinsic rhythm Sinus rhythm with marked sinus arrhythmia with 1st degree A-V block with Premature ventricular complexes or Fusion complexes with ventricular escape complexes Possible Inferior infarct (cited on or before 23-FEB-2009) Abnormal ECG Confirmed by JOE ??NAKUL DIAZ ([id number]) on 12/23/2018 4:01:39 PM [...] EDT) pH, Arterial 7.33(L) 7.35 - 7.45 [facility] PCO2, Arterial 40 35 - 45 mmHg [facility] PO2, Arterial 102 85 - 104 mmHg [facility] Bicarbonate, Arterial 20.8 20.0 - 26.0 mmol/L [facility] Base Excess, Arterial -5.1(L) -3.0 - 3.0 mmol/L [facility] Hgb Blood Gas 14.1 13.7 - 16.5 gm/dL [facility] Oxyhemoglobin, Arterial 95.0 94.0 - 97.0 % [facility] Carboxyhemoglob in, Arterial 1.3 % [facility] Comment: Nonsmokers: 0.5-1.5% COHB Smokers: Variable, but usually less than 10% Toxic: 20-30% COHB Lethal: Greater than 60% COHB Methemoglobin, Arterial 0.6 <=1.5 % [facility] Na Whole Blood 132(L) 135 - 145 mmol/L [facility] K Whole Blood 4.0 3.5 - 5.0 mmol/L [facility] Comment: Please note: Patients with WBC >100,000 may have falsely elevated Potassium levels. Contact the Clinical Chemistry Laboratory if there are any questions. ICa Whole Blood 1.22 1.15 - 1.33 mmol/L [facility] Comment: Note: ??Total bilirubin higher than 20 mg/dL may lead to falsely low ionized calcium. CL Whole Blood 105 98 - 107 mmol/L [facility] Gluc Whole Bld 257(H) 65 - 199 mg/dL [facility] Comment:Diabetes: >=200 mg/d L plus symptoms. Lactate WB 2.0 0.5 - 2.2 mmol/L [facility] FIO2 Art 100 % [facility] PF Ratio Art 102 [facility] Blood specimen (specimen) 12/23/2018 11:47 AM EDT 12/23/2018 11:47 AM EDT Louis De La O MD POINT OF CARE TEST ORDERABLES Performing Organization Address City/[facility]/ZIP Co de Phone Number [facility] [place] [id number] * Fibrinogen (12/23/2018 10:30 AM EDT) Fibrinogen 272 200 - 393 mg/dL [facility] Comment: A fibrinogen level >100 mg/dL is adequate for hemostasis in most patients without underlying bleeding disorders. Blood specimen (specimen) 12/23/2018 10:30 AM EDT 12/23/2018 10:32 AM EDT Narrative Resulting Agency Comment Spec In Lab Vira Bañuelos MD HEMATOLOGY ORDERABLE S Performing Organization Address City/[facility]/ZIP Co de Phone Number [facility] [place] [address] * APTT (12/23/2018 10:30 AM EDT) Partial Thromboplastin Time 29 25 - 37 sec [facility] Comment: The PTT is NOT appropriate for heparin monitoring. Use the Anti-Xa level for heparin monitoring (HEP UFH) or LMWH monitoring (HEP LMW). A PTT less than 37 seconds generally indicates adequate hemostasis. Blood specimen (specimen) 12/23/2018 10:30 AM EDT 12/23/2018 10:32 AM EDT Narrative Resulting Agency Comment Spec In Lab Vira Bañuelos MD HEMATOLOGY ORDERABLE S Performing Organization Address [facility]/[place] Co de Phone Number [facility] [place] [address] * (ABNORMAL) Prothrombin Time (12/23/2018 10:30 AM EDT) Prothrombin Time 13.7(H) 9.4 - 12.5 sec [facility] Comment:Called by: [email or web address], Read back by: Kevin Hobson [id number], Date/Time:12/23/18 10:47. International Normalization Ratio 1.2 [facility] Comment: An INR <2.0 indicates [...] MD HEMATOLOGY ORDERABLE S Performing Organization Address [facility]/[place] Co de Phone Number [facility] [place] [address] * (ABNORMAL) Hemogram (12/23/2018 10:30 AM EDT) White Blood Cell 16.9(H) 4.0 - 9.5 x10(3)/mc L [facility] Red Blood Cell 3.80(L) 4.58 - 5.54 x10(6)/mc L [facility] Hemoglobin 11.5(L) 13.7 - 16.5 gm/dL [facility] Hematocrit 34.7(L) 40.5 - 48.5 % [facility] Comment: This result has been called to KEVIN HOBSON by Onelia Ramírez on 12 23 2018 at 1039, and has been read back. Mean Cell Volume 91.3 82.9 - 93.1 fL [facility] Mean Cell Hemoglobin 30.3 27.5 - 32.1 pg [facility] Mean Cell Hemoglobin Concentration 33.1 32.0 - 35.7 gm/dL [facility] Platelet 124(L) 145 - 357 x10(3)/mc L [facility] RDW Standard Deviation 45.1(H) 36.0 - 45.0 [facility] RDW coefficient of variation 13.3 11.4 - 13.8 % [facility] Mean Platelet Volume 9.1 7.6 - 12.9 [facility]ORY NRBC% auto 0.0 % [facility] NRBC Absolute 0.000 0.000 - 0.000 x10(3)/mc L [facility] Blood specimen (specimen) 12/23/2018 10:30 AM EDT 12/23/2018 10:32 AM EDT Narrative Resulting Agency Comment Spec In Lab Vira Bañuelos MD HEMATOLOGY ORDERABLE S Performing Organization Address City/State/[place] Co de Phone Number [facility] [place] [address] * (ABNORMAL) BLOOD GAS 2 ARTERIAL (12/23/2018 10:26 AM EDT) pH, Arterial 7.37 7.35 - 7.45 [facility] PCO2, Arterial 36 35 - 45 mmHg [facility] PO2, Arterial 316(H) 85 - 104 mmHg [facility] Bicarbonate, Arterial 20.4 20.0 - 26.0 mmol/L [facility] Base Excess, Arterial -5.1(L) -3.0 - 3.0 mmol/L [facility] Hgb Blood Gas 12.1(L) 13.7 - 16.5 gm/dL [facility] Oxyhemoglobin, Arterial 97.8(H) 94.0 - 97.0 % [facility] Carboxyhemoglob in, Arterial 1.2 % [facility] Comment: Nonsmokers: 0.5-1.5% COHB Smokers: Variable, but usually less than 10% Toxic: 20-30% COHB Lethal: Greater than 60% COHB Methemoglobin, Arterial 0.3 <=1.5 % [facility] Na Whole Blood 128(L) 135 - 145 mmol/L [facility] K Whole Blood 5.3(H) 3.5 - 5.0 mmol/L [facility] Comment: Please note: Patients with WBC >100,000 may have falsely elevated Potassium levels. Contact the Clinical Chemistry Laboratory if there are any questions. ICa Whole Blood 1.35(H) 1.15 - 1.33 mmol/L [facility] Comment: Note: ??Total bilirubin higher than 20 mg/dL may lead to falsely low ionized calcium. CL Whole Blood 104 98 - 107 mmol/L [facility] Gluc Whole Bld 271(H) 65 - 199 mg/dL [facility] Comment:Diabetes: >=200 mg/d L plus symptoms. Lactate WB 2.4(H) 0.5 - 2.2 mmol/L [facility] FIO2 Art 97 % [facility] Flow Art 2.6 LPM [facility] PF Ratio Art 326 [facility] Temp Art 35.9 Celsius [facility] Blood specimen (specimen) 12/23/2018 10:26 AM EDT 12/23/2018 10:26 AM EDT Louis De La O MD POINT OF CARE TEST [place] [address] * Prepare Platelets, Apheresis (12/23/2018 10:25 AM EDT) Pathologist [facility] Dispensed? Yes [facility] Blood specimen (specimen) 12/23/2018 10:25 AM EDT 12/23/2018 10:25 AM EDT Louis De La O MD BLOOD [place] [address] * (ABNORMAL) BLOOD GAS 2 ARTERIAL (12/23/2018 9:40 AM EDT) pH, Arterial 7.38 7.35 - 7.45 [facility] PCO2, Arterial 36 35 - 45 mmHg [facility] PO2, Arterial 394(H) 85 - 104 mmHg [facility] Bicarbonate, Arterial 21.0 20.0 - 26.0 mmol/L [facility] Base Excess, Arterial -4.1(L) -3.0 - 3.0 mmol/L [facility] Hgb Blood Gas 11.8(L) 13.7 - 16.5 gm/dL [facility] Oxyhemoglobin, Arterial 98.0(H) 94.0 - 97.0 % [facility] Carboxyhemoglob in, Arterial 1.1 % [facility] Comment: Nonsmokers: 0.5-1.5% COHB Smokers: Variable, but usually less than 10% Toxic: 20-30% COHB Lethal: Greater than 60% COHB Methemoglobin, Arterial 0.3 <=1.5 % [facility] Na Whole Blood 129(L) 135 - 145 mmol/L [facility] K Whole Blood 6.2(Critic al) 3.5 - 5.0 mmol/L [facility] Comment: Noted by technician helper instrument. Please note: Patients with WBC >100,000 may have falsely elevated Potassium levels. Contact the Clinical Chemistry Laboratory if there are any questions. ICa Whole Blood 0.92(Criti kyle) 1.15 - 1.33 mmol/L [facility] Comment: Noted by technician helper instrument. Note: ??Total bilirubin higher than 20 mg/dL may lead to falsely low ionized calcium. CL Whole Blood 103 98 - 107 mmol/L [facility] Gluc Whole Bld 289(H) 65 - 199 mg/dL [facility] Comment:Diabetes: >=200 mg/d L plus symptoms. Lactate WB 1.8 0.5 - 2.2 mmol/L [facility] Blood specimen (specimen) 12/23/2018 9:40 AM EDT 12/23/2018 9:40 AM EDT Louis De La O MD POINT OF CARE TEST ORDERABLES [facility] [place] [address] * (ABNORMAL) Platelet count (12/23/2018 9:35 AM EDT) Platelet 103(L) 145 - 357 x10(3)/mc L [facility] Immature Plt % 2.3 0.0 - 7.4 % [facility] Comment: Limitation of the Immature Platelet Fraction (IPF)-May be less reliable when the platelet count is less than 53l993/uL due to statistical imprecision. The IPF value [...] in a decreased state of production. References: [employer] The Clinical Value of the Immature Platelet Fraction (IPF) in Cell Recovery Document Number [id number] 08/2010 [employer] The Role of the Immature Platelet Fraction (IPF) in the Differential Diagnosis of Thrombocytopenia, Document [id number] V05/02/26 P0514 Blood specimen (specimen) 12/23/2018 9:35 AM EDT 12/23/2018 9:43 AM EDT Narrative Resulting Agency Comment Spec In Lab Louis De La O MD HEMATOLOGY ORDERABL ES Performing Organization Address [facility]/[place] Co de Phone Number [facility] [place] [address] * (ABNORMAL) Hemoglobin and Hematocrit, blood (12/23/2018 9:35 AM EDT) Hemoglobin 10.9(L) 13.7 - 16.5 gm/dL [facility] Hematocrit 33.1(L) 40.5 - 48.5 % [facility] Comment: This result has been called to KEVIN HOBSON by Onelia Ramírez on 12 23 2018 at 0959, and has been read back. Blood specimen (specimen) 12/23/2018 9:35 AM EDT 12/23/2018 9:43 AM EDT Narrative Resulting Agency Comment Spec In Lab Louis De La O MD HEMATOLOGY ORDERABL ES Performing Organization Address [facility]/[place] Co de Phone Number [facility] [place] [address] * Fibrinogen (12/23/2018 9:35 AM EDT) Fibrinogen 254 200 - 393 mg/dL [facility] Comment: Called by: , Read back by: KEVIN BRUNO_, Date/Time:_12/23/18 10:21. A fibrinogen level >100 mg/dL is adequate for hemostasis in most patients without underlying bleeding disorders. Blood specimen (specimen) 12/23/2018 9:35 AM EDT 12/23/2018 9:43 AM EDT Narrative Resulting Agency Comment Spec In Lab Louis De La O MD HEMATOLOGY ORDERABL ES [facility] [place] [address] * (ABNORMAL) BLOOD GAS 2 VENOUS (12/23/2018 9:11 AM EDT) pH, Venous 7.24(Criti kyle) 7.32 - 7.42 [facility] Comment:Noted by technician helper instrument. PCO2, Venous 55(H) 41 - 51 mmHg [facility] PO2, Venous 56(H) 25 - 40 mmHg [facility] Bicarbonate, Venous 23.0 mmol/L [facility] Base Excess, Venous -4.4 mmol/L [facility] Hgb Blood Gas 12.7(L) 13.7 - 16.5 gm/dL [facility] Oxyhemoglobin, Venous 84.1 % [facility] Carboxyhemoglob in, Venous 1.3 % [facility] Comment: Nonsmokers: 0.5-1.5% COHB Smokers: Variable, but usually less than 10% Toxic: 20-30% COHB Lethal: Greater than 60% COHB Methemoglobin, Venous 0.3 <=1.5 % [facility] Na Whole Blood 134(L) 135 - 145 mmol/L [facility] K Whole Blood 4.5 3.5 - 5.0 mmol/L [facility] Comment: Please note: Patients with WBC >100,000 may have falsely elevated Potassium levels. Contact the Clinical Chemistry Laboratory if there are any questions. ICa Whole Blood 1.04(L) 1.15 - 1.33 mmol/L [facility] Comment: Note: ??Total bilirubin higher than 20 mg/dL may lead to falsely low ionized calcium. CL Whole Blood 104 98 - 107 mmol/L [facility] Gluc Whole Bld 171 65 - 199 mg/dL [facility] Comment:Diabetes: >=200 mg/d L plus symptoms Lactate WB 1.1 0.5 - 2.2 mmol/L [facility] Blood Gas Source Venous [facility] Blood specimen (specimen) 12/23/2018 9:11 AM EDT 12/23/2018 9:11 AM EDT Louis De La O MD POINT OF CARE TEST ORDERABLES [facility] [place] [address] * (ABNORMAL) BLOOD GAS 2 ARTERIAL (12/23/2018 9:11 AM EDT) pH, Arterial 7.32(L) 7.35 - 7.45 [facility] PCO2, Arterial 43 35 - 45 mmHg [facility] PO2, Arterial 358(H) 85 - 104 mmHg [facility] Bicarbonate, Arterial 21.6 20.0 - 26.0 mmol/L [facility] Base Excess, Arterial -4.5(L) -3.0 - 3.0 mmol/L [facility] Hgb Blood Gas 12.2(L) 13.7 - 16.5 gm/dL [facility] Oxyhemoglobin, Arterial 97.7(H) 94.0 - 97.0 % [facility] Carboxyhemoglob in, Arterial 1.5 % [facility] Comment: Nonsmokers: 0.5-1.5% COHB Smokers: Variable, but usually less than 10% Toxic: 20-30% COHB Lethal: Greater than 60% COHB Methemoglobin, Arterial 0.3 <=1.5 % [facility] Na Whole Blood 134(L) 135 - 145 mmol/L [facility] K Whole Blood 5.1(H) 3.5 - 5.0 mmol/L [facility] Comment: Please note: Patients with WBC >100,000 may have falsely elevated Potassium levels. Contact the Clinical Chemistry Laboratory if there are any questions. ICa Whole Blood 0.92(Criti kyle) 1.15 - 1.33 mmol/L [facility] Comment: Noted by technician helper instrument. Note: ??Total bilirubin higher than 20 mg/dL may lead to falsely low ionized calcium. CL Whole Blood 104 98 - 107 mmol/L [facility] Gluc Whole Bld 194 65 - 199 mg/dL [facility] Comment:Diabetes: >=200 mg/d L plus symptoms. Lactate WB 1.1 0.5 - 2.2 mmol/L [facility] Blood specimen (specimen) 12/23/2018 9:11 AM EDT 12/23/2018 9:11 AM EDT Louis De La O MD POINT OF CARE TEST ORDERABLES Performing Organization Address City/State/[place] Co de Phone Number [facility] [place] [address] * (ABNORMAL) BLOOD GAS 2 ARTERIAL (12/23/2018 8:15 AM EDT) pH, Arterial 7.38 7.35 - 7.45 [facility] PCO2, Arterial 39 35 - 45 mmHg [facility] PO2, Arterial 406(H) 85 - 104 mmHg [facility] Bicarbonate, Arterial 22.5 20.0 - 26.0 mmol/L [facility] Base Excess, Arterial -2.9 -3.0 - 3.0 mmol/L [facility] Hgb Blood Gas 14.9 13.7 - 16.5 gm/dL [facility] Oxyhemoglobin, Arterial 98.0(H) 94.0 - 97.0 % [facility] Carboxyhemoglob in, Arterial 1.3 % [facility] Comment: Nonsmokers: 0.5-1.5% COHB Smokers: Variable, but usually less than 10% Toxic: 20-30% COHB Lethal: Greater than 60% COHB Methemoglobin, Arterial 0.3 <=1.5 % [facility] Na Whole Blood 136 135 - 145 mmol/L [facility] K Whole Blood 3.9 3.5 - 5.0 mmol/L [facility] Comment: Please note: Patients with WBC >100,000 may have falsely elevated Potassium levels. Contact the Clinical Chemistry Laboratory if there are any questions. ICa Whole Blood 1.11(L) 1.15 - 1.33 mmol/L [facility] Comment: Note: ??Total bilirubin higher than 20 mg/dL may lead to falsely low ionized calcium. CL Whole Blood 104 98 - 107 mmol/L [facility] Gluc Whole Bld 167 65 - 199 mg/dL [facility] Comment:Diabetes: >=200 mg/d L plus symptoms. Lactate WB 1.2 0.5 - 2.2 mmol/L [facility] FIO2 Art 94 % [facility] Flow Art 1.1 LPM [facility] PF Ratio Art 432 [facility] Temp Art 35.7 Celsius [facility] Blood specimen (specimen) 12/23/2018 8:15 AM EDT 12/23/2018 8:15 AM EDT Louis De La O MD POINT OF CARE TEST ORDERABLES [facility] [place] [address] * (ABNORMAL) Urinalysis without microscopic (12/23/2018 7:20 AM EDT) Glucose, Urine Dipstick Negative Negative mg/dL [facility] Protein, Urine Dipstick 30(A) Negative mg/dL [facility] Bilirubin, Urine Dipstick Negative Negative mg/dL [facility] Comment: Clinical correlation required for positive Urine Bilirubin results as false positive may occur with some drugs and drug related products. If a false positive is suspected a serum total bilirubin should be considered if clinically indicated. Urobilinogen, Urine Dipstick Normal Normal mg/dL [facility] pH, Urn (dipstick) 6.0 5.0 - 8.0 [facility] Blood, Urine Dipstick Negative Negative mg/dL [facility] Ketone, Urine Dipstick Negative Negative mg/dL [facility] Nitrite, Urine Dipstick Negative Negative [facility] Leukocytes, Urine Dipstick Negative Negative [facility] Appearance, Urine Dipstick Clear Clear [facility] Specific [place] Urine Automated 1.021 1.002 - 1.030 [facility] Color, Urine Dipstick Yellow Yellow [facility] Urine specimen (specimen) 12/23/2018 7:20 AM EDT 12/23/2018 8:00 AM EDT Narrative Resulting Agency Comment Spec In Lab Marlo Keith MD URINE ORDERABLES [facility] [place] [address] * EKG 12 Lead (12/23/2018 7:18 AM EDT) Ventricular rate 68 BPM MUSE SYSTEM Atrial Rate 68 BPM MUSE SYSTEM P-R Interval 212 ms MUSE SYSTEM QRS Duration 84 ms MUSE SYSTEM Q-T Interval 376 ms MUSE SYSTEM QTC Calculated (Bezet) 399 ms MUSE SYSTEM Calculated P [place] 57 degrees MUSE SYSTEM Calculated R [place] 4 degrees MUSE SYSTEM Calculated T [place] 69 degrees MUSE SYSTEM INTERPRETATION Sinus rhythm with 1st degree A-V block Inferior infarct (cited on or before 23-FEB-2009) Abnormal ECG When compared with ECG of 23-FEB-2009 16:24, PA interval has increased Improvement in T wave morphology in anterolateral leads Confirmed by MD Amado, Irwin ([id number]) on 12/23/2018 8:52:28 AM MUSE SYSTEM 12/23/2018 7:18 AM EDT 12/23/2018 8:52 AM EDT Louis De La O MD ECG ORDERABLES MUSE SYSTEM * (ABNORMAL) Differential, Automated (12/23/2018 7:10 AM EDT) Neutrophil % 70.5 % [facility] Neutrophil Absolute 5.34 1.70 - 6.10 x10(3)/[facility] Lymph % 14.1 % [facility] Lymphocytes Abs 1.1 0.9 - 3.2 x10(3)/[facility] Monocyte % 12.5 % [facility] Monocyte Abs 1.0(H) 0.3 - 0.9 x10(3)/[facility] Eos % 1.7 % [facility] Eosinophils Abs 0.1 0.0 - 0.4 x10(3)/[facility] Basophil % 1.1 % [facility] Baso Absolute 0.1 0.0 - 0.1 x10(3)/[facility] Immature Gran % 0.10 % [facility] Comment: Immature granulocytes(IG's)percentage and absolute count will include metamyelocytes, myelocytes, and promyelocytes. Blood smears from CBCs yielding IG's will be scanned manually for concordance. If this scan disagrees with the automated IG or if promyelocytes are noted, a manual differential will be performed. Immature Gran Absolute 0.01 0.00 - 0.04 x10(3)/[facility] Blood specimen (specimen) 12/23/2018 7:10 AM EDT 12/23/2018 7:18 AM EDT Narrative Resulting Agency Comment Spec In Lab Louis De La O MD HEMATOLOGY ORDERABL ES [facility] [place] [address] * Hemogram (12/23/2018 7:10 AM EDT) White Blood Cell 7.6 4.0 - 9.5 x10(3)/[facility] Red Blood Cell 4.81 4.58 - 5.54 x10(6)/[facility] Hemoglobin 14.2 13.7 - 16.5 gm/dL [facility] Hematocrit 43.2 40.5 - 48.5 % [facility] Mean Cell Volume 89.8 82.9 - 93.1 [facility] Mean Cell Hemoglobin 29.5 27.5 - 32.1 pg [facility] Mean Cell Hemoglobin Concentration 32.9 32.0 - 35.7 gm/dL [facility] Platelet 323 145 - 357 x10(3)/[facility] RDW Standard Deviation 44.7 36.0 - 45.0 [facility] RDW coefficient of variation 13.4 11.4 - 13.8 % [facility] Mean Platelet Volume 9.6 7.6 - 12.9 [facility] NRBC% auto 0.0 % [facility] NRBC Absolute 0.000 0.000 - 0.000 x10(3)/[facility] Blood specimen (specimen) 12/23/2018 7:10 AM EDT 12/23/2018 7:18 AM EDT Narrative Resulting Agency Comment Spec In Lab Louis De La O MD HEMATOLOGY ORDERABL ES [facility] [place] [address] * (ABNORMAL) CMP w/fasting Glucose (12/23/2018 7:10 AM EDT) Glucose Fasting 150(H) 65 - 99 mg/dL [facility] Comment: ?Fasting* Glucose Interpretive Criteria [...] of Diabetes Mellitus, Position Statement from the [place] [employer]. ??Diabetes Care, Volume 33, Supplement 1, Mar 2009 Blood Urea Nitrogen 20 10 - 20 mg/dL [facility] Creatinine 1.27 0.80 - 1.50 mg/dL [facility] Sodium 140 135 - 145 mmol/L [facility] Potassium 4.7 3.5 - 5.0 mmol/L [facility] Comment: Please note: ??Patients with WBC >100,000 may have falsely elevated Potassium levels. ??For accurate Potassium quantification in these patients send serum separator tube (gold top) for subsequent determinations. ??Contact the Clinical Chemistry Laboratory if there are any questions. Chloride 100 98 - 107 mmol/L [facility] Carbon Dioxide 26 22 - 31 mmol/L [facility] Anion Gap 14 5 - 15 mmol/L [facility] Calcium 9.3 8.5 - 10.5 mg/dL [facility] Protein, Total 7.3 6.1 - 8.0 gm/dL [facility] Albumin 4.3 3.2 - 5.2 gm/dL [facility] Aspartate Aminotransferase 13 0 - 39 unit/L [facility] Alanine Aminotransferase 12 0 - 55 unit/L [facility] Alkaline Phosphatase 60 40 - 130 unit/L [facility] Bilirubin, Total 0.3 0.2 - 1.3 mg/dL [facility] Est Glomerular Filtration Rate 58(L) >=60 mL/min/1. 73 m?? [facility] Comment: The eGFR was calculated using the CKD-EPI equation. As with all creatinine based estimates of kidney function, eGFR values calculated with the CKD-EPI equation are not accurate in patients with acute kidney failure, extremes of body mass or the acutely ill. [email or web address]://[employer]/DHMCnkf eGFR 68 >=60 mL/min/1. 73 m?? [facility] Comment: The eGFR was calculated using the CKD-EPI equation. As with all creatinine based estimates of kidney function, eGFR values calculated with the CKD-EPI equation are not accurate in patients with acute kidney failure, extremes of body mass or the acutely ill. [email or web address] Blood specimen (specimen) 12/23/2018 7:10 AM EDT 12/23/2018 7:18 AM EDT Narrative Resulting Agency Comment Spec In Lab Louis De La O MD CHEMISTRY ORDERABLE S [facility] [place] [address] * POCT Glucose (12/23/2018 6:46 AM EDT) Glucose, POC 132 65 - 199 mg/dL [facility] Comment: Supplemental ranges: <140 mg/dL before meals <180 mg/dL all other times of the day Blood specimen (specimen) 12/23/2018 6:46 AM EDT 12/23/2018 6:46 AM EDT Louis De La O MD POINT OF CARE TEST ORDERABLES Performing Organization Address [facility]/[place] Co de Phone Number [facility] [place] [address] * Prepare RBC (12/23/2018 6:40 AM EDT) Dispensed? Yes [facility] Blood specimen (specimen) 12/23/2018 6:40 AM EDT 12/23/2018 6:37 AM EDT Louis De La O MD BLOOD BANK PRODUCT ORDERABLES Performing Organization Address [facility]/[place] Co de Phone Number [facility] [place] [address] documented in this encounter Visit Diagnoses Diagnosis CKD (chronic kidney disease) stage 4, GFR 15-29 ml/min Chronic kidney disease, Stage IV (severe) ASCVD (arteriosclerotic cardiovascular disease) Unspecified cardiovascular disease Coronary artery disease of [place] heart with stable angina pectoris, unspecified vessel or lesion type S/P CABG x 2 Postsurgical aortocoronary bypass status CAD (coronary artery disease) Coronary atherosclerosis of unspecified type of vessel, [place] or graft 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 documented in this encounter Admitting Diagnoses Diagnosis CAD (coronary artery disease) Coronary atherosclerosis of unspecified type of vessel, [place] or graft documented in this encounter Administered [...] 30 MIN, 2 doses, First dose on Stacey 12/23/18 at 2315, Last dose on Thu12/23/18 at [...] 300 mg, Rectal, DAILY, First dose on Stacey 12/23/18 at 1200, Until Discontinued, Routine Given 12/23/2018 1:1 7 PM EDT 300 mg bisacodyl (DULCOLAX) suppository 10 mg 10 mg, Rectal, DAILY, First dose (after last modification) on Thu12/26/18 at 0930, Until Discontinued, Starting post-op day 3., Routine chlorhexidine (PERIDEX) 0.12 % oral solution 15 mL 15 mL, Oral, EVERY 12 HOURS SCHEDULED (2 times per day), First dose on Stacey 12/23/18 at 1200, Until Discontinued, [place] teeth, Routine Given 12/24/2018 9:41 AM EDT [...] mcg/min (0-75 mL/hr), Intravenous, CONTINUOUS, Starting on Thu12/23/18 at 1200, Until Thu12/24/18 at 1446, Titrate to keep systolic blood pressure greater than 90 mmHg. Start at 1 mcg/min, adjust by 1 mcg/min every 3 minutes. Dose not to exceed 10 mcg/min. Use if phenylephrine or vasopressin or norepinephrine is ineffective. Call pager # [phone] if initiated. Rate/Dose Change 12/23/2018 2:48 PM EDT 1 mcg/min 7.5 mL/hr Rate/Dose Verify 12/23/2018 2:00 PM EDT 2 mcg/min 15 mL/h r Rate/Dose Verify 12/23/2018 12:00 PM EDT 2 mcg/min 15 mL/ hr [id number] 25 mg/mL or placebo injection 1,125 mg (10 mg/kg/dose ? 112.5 kg), Intravenous, ONCE, 1 dose, On Thu12/23/18 at 1400, Routine, This is an Investigational Drug that is restricted to patients enrolled in a clinical trial. Is your patient enrolled in this clinical trial? Yes Given 12/23/2018 2:27 PM EDT 1,125 mg fentaNYL 50 mcg/mL syringe 0-100 mcg/hr (0-2 mL/hr), Intravenous, CONTINUOUS, Starting on Thu12/23/18 at 1200, Until Thu12/24/18 at 1516, Titrate [...] 1 dose, On 12/26/18 at 0930, Routine Given 12/26/2018 11:06 AM EDT 25 mg metoprolol tartrate (LOPRESSOR) tablet 50 mg 50 mg, Oral, EVERY 12 HOURS SCHEDULED (2 times per day), First dose (after last modification) on 12/26/18 at 2100, Until Discontinued, Routine Given 12/26/2018 [...] if phenyleprine and/or vasopressin ineffective.Call pager # [phone] if initiated., Routine Rate/Dose Verify 12/24/2018 4:00 [...] 2.0 L/min/M2. Maximum volume 2 L. Call editor house organ for additional fluid orders: pager #[phone]. New Bag 12/23/2018 11:15 AM EDT 250 [...] Rudi Danielle RN)1200 (Given - Provider: Ramírez Zapata, MARTIN)1826 (Given - Provider: Ramírez Zapata RN)2352 (Given - Provider: Rudi Danilele RN) 0515 (Given - Provider: Rudi Danielle [...] on Thu12/24/18 at 0915, Until Discontinued, Routine 09 (Given - Provider: Ramírez Zapata RN) 0834 [...] on Thu12/27/18 at 0900, Until Discontinued, Routine 0904 (Given - Provider: Jennifer Ramos RN) gemfibrozil [...] if patient is not eating. , Routine 09 (Given - Provider: Jennifer Ramos RN) insulin [...] Jennifer Ramos RN)1711 (Given - Provider: Jennifer Ramos, MARTIN) 0906 (Given - Provider: Jennifer Ramos, MARTIN)1154 (Given - Provider: Jennifer Ramos, MARTIN) magnesium hydroxide (Milk of Magnesia) (240 mg/mL) oral liquid 10 mL 10 mL, Oral, DAILY, First dose on Thu12/25/18 at 0900, Until Discontinued, Post-op day 2. [...] on Thu12/27/18 at 0700, Until Discontinued, Routine 0902 (Given - Provider: Jennifer Ramos RN) pantoprazole [...] 1 dose, On Thu12/27/18 at 0845, Routine 0904 (Given - Provider: [...] Rudi Danielle RN)0715 (Given - Provider: Jennifer Ramos, RN)1515 (Given - Provider: Jennifer Ramos, MARTIN)2336 (Given - Provider: Rudi Danielle RN) 0715 [...] Routine documented in this encounter Care Teams Insurance And Benefits Clerk Relationship Specialty Start Date End Date Antonella Lucas PA [address] [place] [address] PCP - General Family Medicine 05/06/17 11/01/19 documented as of this encounter
--- OUTSIDE RECORDS SUMMARY | 2023-12-04 00:39 | XMS_ITS | Encounter Summary ---
Author Organization [facility] Address [facility] [place] [address] Care Team Providers Care Sign Language Instructor Name Role Phone Antonella Lucas Primary Care Provider [phone]- [phone] Encounter Details Date Type Department Care Team (Late st Contact Info) Description 09/07/2018 11:15 AM EDT Ancillary Procedure Radiology Library at [facility], [place] [address] Celine Finley MD [facility] [place] [address] Social History Tobacco Use Types Packs/Day Years [...] Abdomen Pelvis (09/07/2018 11:10 AM EDT) Narrative [facility] - 09/07/2018 11:10 AM EDT This exam is auto-finalizing. It's purpose is for storage only. Celine Finley MD IMG FILM LIBRARY ORD ERABLES [facility] [place], [place] documented in this encounter Visit Diagnoses Not on filedocumented in this encounter Care Teams Sign Language Instructor Relationship Specialty Start Date End Date Antonella Lucas PA [address] [place] [address] PCP - General Family Medicine 05/06/17 11/01/19 documented as of this encounter
--- OUTSIDE RECORDS SUMMARY | 2023-12-04 00:39 | XMS_ITS | Encounter Summary ---
Author Organization [facility] Address [facility] [place] [address] Care Team Providers Care Director Hedis Name Role Phone Uma Asif MD Primary Care Provider [phone] Reason for Visit * Reason Comments Coronary Artery Disease Encounter Details Date Type Department Care Team ([facility] st Contact Info) Description 06/17/2011 9:10 AM EDT Follow-Up Cardiology at [address] [address] Yaniv Sanches MD [facility] [place] [address] CAD (coronary artery disease) (Primary Dx) Discharge [...] Coronary atherosclerosis of unspecified type of vessel, buckland or graft documented in this encounter Care Teams Director Hedis Relationship Specialty Start Date End Date Uma Asif MD [address] [place] [address] PCP - General 02/05/10 05/05/17 documented as of this encounter
--- OUTSIDE RECORDS SUMMARY | 2023-12-04 00:39 | XMS_ITS | Encounter Summary ---
Author Organization [facility] Address [facility] [place] [address] Care Team Providers Care Automotive Fuel Injection Servicer Name Role Phone Lance Antonella ARRIAGA Primary Care Provider [phone]- [phone] Encounter Details Date Type Department Care Team (Latest Contact Info) Description 05/12/2017 - 05/12/2017 11:59 PM EST Hospital Encounter Radiology Library at [facility] [place] [address] Ibrahima Lux MD [facility] [place] [address] Discharge Disposition: Home Social History Tobacco Use [...] Release 24 hrIndications:Atheroscl erotic heart disease of [place] coronary artery without angina pectoris Take 1 [...] Ultrasound Study (05/12/2017 12:00 AM EST) Narrative [facility] - 09/15/2017 3:52 PM EDT This exam is for storage only and is auto-finalizing. Ibrahima Lux MD IMG FILM LIBRARY ORD ERABLES [place], [place] documented in this encounter Visit Diagnoses Not on filedocumented in this encounter Care Teams Automotive Fuel Injection Servicer Relationship Specialty Start Date End Date Antonella Lucas PA [address] [place] [address] PCP - General Family Medicine 05/06/17 11/01/19 documented as of this encounter
--- OUTSIDE RECORDS SUMMARY | 2023-12-04 00:39 | XMS_ITS | Encounter Summary ---
Author Organization [facility] [place] [address] Care Team Providers Care Flask Fitter Name Role Phone Lance Antonella ARRIAGA Primary Care Provider [phone]- [phone] Encounter Details Date Type Department Care Team (Late st Contact Info) Description 09/07/2018 12:00 PM EDT Ancillary Procedure Radiology Library at [facility] [place] [address] Celine Finley MD [facility] [place] [address] Social History Tobacco Use Types Packs/Day Years [...] DX Shoulder (09/07/2018 11:54 AM EDT) Narrative [facility] - 09/07/2018 11:54 AM EDT This exam is auto-finalizing. It's purpose is for storage only. Celine Finley MD IMG FILM LIBRARY ORD ERABLES Performing Organization Address City/State/[place] Co de Phone Number [facility] [place], [place] documented in this encounter Visit Diagnoses Not on filedocumented in this encounter Care Teams Flask Fitter Relationship Specialty Start Date End Date Antonella Lucas PA [address] [place] [address] PCP - General Family Medicine 05/06/17 11/01/19 documented as of this encounter
--- OUTSIDE RECORDS SUMMARY | 2023-12-04 00:39 | XMS_ITS | Encounter Summary ---
Author Organization [facility] Address [facility] [place] [address] Care Team Providers Care Chief Media Officer Name Role Phone Lance Antonella ARRIAGA Primary Care Provider [phone]- [phone] Encounter Details Date Type Department Care Team (Late st Contact Info) Description 09/07/2018 11:10 AM EDT Ancillary Procedure Radiology Library at [facility] [place] [address] Celine Finley MD [facility] [place] [address] Social History Tobacco Use Types Packs/Day Years [...] And Spine (09/07/2018 11:08 AM EDT) Narrative [facility] - 09/07/2018 11:08 AM EDT This exam is auto-finalizing. It's purpose is for storage only. Celine Finley MD IMG FILM LIBRARY ORD ERABLES [facility] [place], [place] documented in this encounter Visit Diagnoses Not on filedocumented in this encounter Care Teams Chief Media Officer Relationship Specialty Start Date End Date Antonella Lucas PA [address] [place] [address] PCP - General Family Medicine 05/06/17 11/01/19 documented as of this encounter
--- OUTSIDE RECORDS SUMMARY | 2023-12-04 00:39 | XMS_ITS | Encounter Summary ---
Author Organization [facility] Address [facility] [place] [address] Care Team Providers Care Manager Garage Name Role Phone Uma Asif MD Primary Care Provider [phone] Reason for Visit * Reason Comments Follow-up Coronary Artery Disease Encounter Details Date Type Department Care Team (Latest Contact Info) Description 08/08/2015 8:00 AM EDT Office Visit Cardiology at [address] [address] Simon Loyd MD [facility] [place] [address] Atherosclerosis of [place] coronary artery of [place] heart without angina pectoris Social History Tobacco [...] this encounter Visit Diagnoses Diagnosis Atherosclerosis of [place] coronary artery of [place] heart without angina pectoris documented in this encounter Care Teams Manager Garage Relationship Specialty Start Date End Date Uma Asif MD [address] [place] [address] PCP - General 02/05/10 05/05/17 documented as of this encounter
--- OUTSIDE RECORDS SUMMARY | 2023-12-04 00:39 | XMS_ITS | Encounter Summary ---
Author Organization [facility] Address [facility] [place] [address] Care Team Providers Care Sail Repair Person Name Role Phone Antonella Lucas Primary Care Provider [phone]- [phone] Reason for Visit * Consultation (Routine) - Closed Specialty Diagnoses / Procedures Referred By Nataliia hurt Referred To Contact Nephrology Diagnoses Elevated creatinine Antonella Lucas PA [address] [place] [address] [facility] Nephrology [address] [place] [address] Referral ID Status Reason Start Date Expiration Date V isits Requested Visits Authorized [id number] Closed Consult, Test & Treat [facility] 05/08/2017 05/08/2018 1 1 Encounter Details Date Type Department Care Team (Latest Contact Info) Description 08/12/2017 3:00 PM EDT Office Visit Nephrology [place] [address] Ibrahima Lux MD [facility] 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: Chronic L knee pain for which [...] The patient had a recent ultrasound at [facility] showing cysts, the pictures are not available [...] 3, GFR 30-59 ml/min BASIC METABOLIC PANEL Routine 08/12/2017 4:16 PM EDT CKD (chronic kidney disease) stage 3, GFR 30-59 ml/min documented in this encounter Results * (ABNORMAL) Differential, Automated (08/12/2017 4:16 PM EDT) Neutrophil % 63.7 % [facility] Neutrophil Absolute 5.70 1.70 - 6.10 x10(3)/mc L [facility] Lymph % 20.0 % [facility] Lymphocytes Abs 1.8 0.9 - 3.2 x10(3)/mc L [facility] Monocyte % 12.4 % [facility] Monocyte Abs 1.1(H) 0.3 - 0.9 x10(3)/mc L [facility] Eos % 2.7 % [facility] Eosinophils Abs 0.2 0.0 - 0.4 x10(3)/mc L [facility] Basophil % 0.9 % [facility] Baso Absolute 0.1 0.0 - 0.1 x10(3)/mc L [facility] Immature Gran % 0.30 % [facility] Comment: Immature granulocytes(IG's)percentage and absolute count will include metamyelocytes, myelocytes, and promyelocytes. Blood smears from CBCs yielding IG's will be scanned manually for concordance. If this scan disagrees with the automated IG or if promyelocytes are noted, a manual differential will be performed. Immature Gran Absolute 0.03 0.00 - 0.04 x10(3)/mc L [facility] Blood specimen (specimen) 08/12/2017 4:16 PM EDT 08/12/2017 4:23 PM EDT Narrative Resulting Agency Comment Spec In Lab Ibrahima Lux MD HEMATOLOGY ORDERABLE S [facility] [place] [address] * (ABNORMAL) Hemogram (08/12/2017 4:16 PM EDT) White Blood Cell 9.0 4.0 - 9.5 x10(3)/[facility] Red Blood Cell 4.69 4.58 - 5.54 x10(6)/[facility] Hemoglobin 14.5 13.7 - 16.5 gm/dL [facility] Hematocrit 42.9 40.5 - 48.5 % [facility] Mean Cell Volume 91.5 82.9 - 93.1 [facility] Mean Cell Hemoglobin 30.9 27.5 - 32.1 pg [facility] Mean Cell Hemoglobin Concentration 33.8 32.0 - 35.7 gm/dL [facility] Platelet 251 145 - 357 x10(3)/[facility] RDW Standard Deviation 47.7(H) 36.0 - 45.0 [facility] RDW coefficient of variation 14.2(H) 11.4 - 13.8 % [facility] Mean Platelet Volume 9.2 7.6 - 12.9 [facility] NRBC% auto 0.0 % [facility] NRBC Absolute 0.000 0.000 - 0.000 x10(3)/[facility] Blood specimen (specimen) 08/12/2017 4:16 PM EDT 08/12/2017 4:23 PM EDT Narrative Resulting Agency Comment Spec In Lab Ibrahima Lux MD HEMATOLOGY ORDERABLE S [facility] [place] [address] * Phosphorus (08/12/2017 4:16 PM EDT) Pathologist [facility] Phosphorus 3.0 2.5 - 4.5 mg/dL [facility] Blood specimen (specimen) 08/12/2017 4:16 PM EDT 08/12/2017 4:23 PM EDT Narrative Resulting Agency Comment Spec In Lab Ibrahima Lux MD CHEMISTRY ORDERABLES Performing Organization Address City/[facility]/ZIP Co de Phone Number [facility] [place] [address] * Calcium (08/12/2017 4:16 PM EDT) [facility] Calcium 9.2 8.5 - 10.5 mg/dL [facility] Blood specimen (specimen) 08/12/2017 4:16 PM EDT 08/12/2017 4:23 PM EDT Narrative Resulting Agency Comment Spec In Lab Ibrahima Lux MD CHEMISTRY ORDERABLES Performing Organization Address City/[facility]/ZIP Co de Phone Number [facility] [place] [address] * Albumin Level (08/12/2017 4:16 PM EDT) [facility] Albumin 4.7 3.2 - 5.2 gm/dL [facility] Blood specimen (specimen) 08/12/2017 4:16 PM EDT 08/12/2017 4:23 PM EDT Narrative Resulting Agency Comment Spec In Lab Ibrahima Lux MD CHEMISTRY ORDERABLES [facility] [place] [address] * (ABNORMAL) PTH (08/12/2017 4:16 PM EDT) Parathyroid Hormone 77(H) 15 - 65 pg/mL [facility] Blood specimen (specimen) 08/12/2017 4:16 PM EDT 08/12/2017 4:23 PM EDT Narrative Resulting Agency Comment Spec In Lab Ibrahima Lux MD CHEMISTRY ORDERABLES [facility] [place] [address] * (ABNORMAL) Basic Metabolic Panel (non-fasting) (08/12/2017 4:16 PM EDT) Glucose 89 65 - 199 mg/dL [facility] Comment:Diabetes: >=200 mg/d L plus symptoms Blood Urea Nitrogen 32(H) 10 - 20 mg/dL [facility] Creatinine 1.59(H) 0.80 - 1.50 mg/dL [facility] Sodium 142 135 - 145 mmol/L [facility] Potassium 4.6 3.5 - 5.0 mmol/L [facility] Comment: Please note: ??Patients with WBC >100,000 may have falsely elevated Potassium levels. ??For accurate Potassium quantification in these patients send serum separator tube (gold top) for subsequent determinations. ??Contact the Clinical Chemistry Laboratory if there are any questions. Chloride 102 98 - 107 mmol/L [facility] Carbon Dioxide 26 22 - 31 mmol/L [facility] Anion Gap 14 5 - 15 mmol/L [facility] Calcium 9.2 8.5 - 10.5 mg/dL [facility] Est Glomerular Filtration Rate 44(L) >=60 [facility] Comment: The reported eGFR should be multiplied by 1.2 for patients. The MDRD is not an appropriate measure of renal function for patients with body mass extremes or in patients with acute kidney failure. http://[employer]/DHnkdep http://[employer]/DHMCnkf Blood specimen (specimen) 08/12/2017 4:16 PM EDT 08/12/2017 4:23 PM EDT Narrative Resulting Agency Comment Spec In Lab Ibrahima Lux MD CHEMISTRY ORDERABLES [facility] [place] [address] documented in this encounter Visit Diagnoses Diagnosis CKD (chronic kidney disease) stage 3, GFR 30-59 ml/min Chronic kidney disease, Stage III (moderate) documented in this encounter Care Teams Sail Repair Person Relationship Specialty Start Date End Date Antonella Lucas PA [address] [place] [address] PCP - General Family Medicine 05/06/17 11/01/19 documented as of this encounter
--- OUTSIDE RECORDS SUMMARY | 2023-12-04 00:39 | XMS_ITS | Encounter Summary ---
Author Organization [facility] [place] [address] Care Team Providers Care Data Processing Manager Name Role Phone Antonella Lucas Primary Care Provider [phone]- [phone] Encounter Details Date Type Department Care Team (Late st Contact Info) Description 09/07/2018 Telephone [place] [phone] Paige Hartley, RN Social History Tobacco Use [...] LEI Sands as Dr Ankit Sanchez, at [facility] ED is seeking input re Mr [...] on filedocumented in this encounter Care Teams Data Processing Manager Relationship Specialty Start Date End Date Antonella Lucas PA [address] [place] [address] PCP - General Family Medicine 05/06/17 11/01/19 documented as of this encounter
--- OUTSIDE RECORDS SUMMARY | 2023-12-04 00:39 | XMS_ITS | Encounter Summary ---
[place] [address] Care Team Providers Care Lodging House Keeper Name Role Phone Uma Asif MD Primary Care Provider [phone] Encounter Details Date Type Department Care Team (Late st Contact Info) Description 03/18/2010 9:41 AM EST - 03/18/2010 11:59 PM [facility] Encounter [place] [phone] Social History Tobacco Use Types Packs/Day Years [...] on filedocumented in this encounter Care Teams Lodging House Keeper Relationship Specialty Start Date End Date Uma Asif MD [address] [place] [address] PCP - General 02/05/10 05/05/17 documented as of this encounter
--- OUTSIDE RECORDS SUMMARY | 2023-12-04 00:39 | XMS_ITS | Encounter Summary ---
[place] [address] Care Team Providers Care Waterproof Material Folder Name Role Phone Uma Asif MD Primary Care Provider [phone] Encounter Details Date Type Department Care Team (Late st Contact Info) Description 03/18/2010 9:41 AM EST - 03/18/2010 11:59 PM [facility] Encounter Non-[place] [id number] Social History Tobacco Use Types Packs/Day Years [...] on filedocumented in this encounter Care Teams Waterproof Material Folder Relationship Specialty Start Date End Date Uma Asif MD [address] [place] [address] PCP - General 02/05/10 05/05/17 documented as of this encounter
--- OUTSIDE RECORDS SUMMARY | 2023-12-04 00:39 | XMS_ITS | Encounter Summary ---
Author Organization [facility] [place] [address] Care Team Providers Care Phlebotomy Tech Name Role Phone Antonella Lucas Primary Care Provider [phone]- [phone] Encounter Details Date Type Department Care Team (Late st Contact Info) Description 12/03/2018 Orders Only Cardiology at [address] [address] Meghan Victor PA [facility] [place] [address] ASCVD (arteriosclerotic cardiovascular disease) Social History Tobacco [...] Modality Other Narrative 12/09/2018 4:24 PM EDT ?[facility] ? Cardiac Catheterization/Intervention Report ? Patient Name: Bee, Bear ? Procedure Date: 12/08/2018 ? A #: [id number] ? Primary Physician: Amado, Irwin N ? Case #: [id number] ? File Name: [id number] ? Catheterization Order Number: [id number] ? [facility] ? Final Report [place], [place] ? Patient Name: ? Bear Gamboa ?ID#: ?[id number] ? : ?1950 ? Procedure Date: ? December 08, 2018 ? Case #: ? [id number] ? Room: ? 1 ? Case Physician: [...] procedure was Elective. The indication for ?the carpenter/labor visit is worsening angina and other indication. [...] ? occlusion. ??Distal flow was via the [place] vessel, collaterals from ? the LCX as [...] large. ? Distal flow was via the [place] vessel and collaterals from the LAD. ?Ramus [...] the Ramus Intermedius ?LAD - 100% mid-vessel CARPENTER CRADLE AND DOLLY; 50% ostial D2 stenosis; distal vessel receives [...] Procedure Note Irwin Fischer MD - 11/12/2019 [facility] Cardiac Catheterization/Intervention Report Patient Name: Bear Gamboa Procedure Date: 12/08/2018 A #: [id number] Primary Physician: Irwin Fischer Case #: [id number] File Name: [id number] Catheterization Order Number: [id number] [facility] FinalReport [place], [place] Patient Name: Bear Gamboa ID#:[id number] :1950 Procedure Date: December 08, 2018 Case [...] patient was designated as ASA Class III. [facility] 4: Vulnerable. [...] diagnostic procedure was Elective. Theindication for the carpenter/labor visit is worsening angina and other indication. [...] total occlusion. Distal flow was via the [place] vessel, collateralsfrom the LCX as well as [...] was large. Distal flow was via the [place] vessel and collaterals from theLAD. Ramus There [...] in the RamusIntermedius LAD - 100% mid-vessel CARPENTER CRADLE [employer] DOLLY; 50% ostial D2 stenosis; distal vesselreceives L->L [...] disease documented in this encounter Care Teams Phlebotomy Tech Relationship Specialty Start Date End Date Antonella Lucas PA [address] [place] [address] PCP - General Family Medicine 05/06/17 11/01/19 documented as of this encounter
--- OUTSIDE RECORDS SUMMARY | 2023-12-04 00:39 | XMS_ITS | Encounter Summary ---
Author Organization [facility] Address [facility] [place] [address] Care Team Providers Care Director Of Email Marketing Name Role Phone Uma Asif MD Primary Care Provider [phone] Reason for Visit * Reason Comments Follow-up Coronary Artery Disease Encounter Details Date Type Department Care Team ([facility] Contact Info) Description 07/25/2014 2:40 PM EDT Follow-Up Cardiology at [address] [address] Simon Loyd MD [facility] 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
--- OUTSIDE RECORDS SUMMARY | 2023-12-04 00:39 | XMS_ITS | Encounter Summary ---
Author Organization [facility] Address [facility] [place] [address] Care Team Providers Care Energy Attorney Name Role Phone Antonella Lucas Primary Care Provider [phone] Reason for Visit * Auth/Cert Specialty Diagnoses [...] Expiration Date Visits Re quested Visits Authorized [id number] 1 1 Encounter Details Date Type Department Care Team ([facility] Contact Info) Description 12/21/2018 9:40 AM EDT Clinical [place] [address] Social History Tobacco Use Types Packs/Day Years [...] on filedocumented in this encounter Care Teams Energy Attorney Relationship Specialty Start Date End Date Antonella Lucas [address] [place] [address] PCP - General Family Medicine 05/06/17 11/01/19 documented as of this encounter
--- OUTSIDE RECORDS SUMMARY | 2023-12-04 00:39 | XMS_ITS | Encounter Summary ---
Author Organization [facility] [place] [address] Care Team Providers Care Bow Maker Custom Name Role Phone Antonella Lucas Primary Care Provider [phone] Encounter Details Date Type Department Care Team (Late st Contact Info) Description 12/08/2018 10:00 AM EDT - 12/08/2018 11:00 AM EDT Surgery [place] [address] Irwin Fischer MD [facility] [place] [address] CARDIAC CATHETERIZATION Social History Tobacco Use Types [...] by your doctor, do not take any lrtc-zph-fjlmwop medicines or herbal preparations without first discussing this with your doctor or pharmacist. There is the possibility of side effect and interactions when these are combined. Follow up Care Who to Call with Questions or Problems If there are any questions or problems that you think might be related to your cardiac cath or angioplasty, contact the chief analytics officer cast iron dipper by calling [facility] at . documented in this encounter [...] man with a history of CAD (inferior TN 2009 s/p CK x2 to mid RCA [...] is in the chart. Willam Evans MD Rn Transport PGY-4 12/08/2018 documented in this encounter Miscellaneous Notes * Brief Op Note - Irwin Fischer MD - 12/08/2018 3:48 PM EDT Brief Operative Note Patient Name: Bear Gamboa : [id number] MR#: [id number] Case Date: 12/08/2018 Surgeon: Surgeon(s) and Role: * Irwin Fischer MD - Primary * Orville Blair MD - Fellow Preoperative diagnosis: ASCVD (arteriosclerotic cardiovascular disease) [I25.10] Postoperative diagnosis: ASCVD (arteriosclerotic cardiovascular disease) [I25.10] Procedure(s) (LRB): CARDIAC CATHETERIZATION (N/A) CORONARY ANGIOGRAPHY; W LHC,POSSIBLE PCI (N/A) Findings: LM - Mild diffuse disease; 50% proximal stenosis in the Ramus Intermedius LAD - 100% mid-vessel LAP WINDER; 50% ostial D2 stenosis; distal vessel receives [...] * POCT Glucose (12/08/2018 10:34 AM EDT) Glucose, POC 133 65 - 199 mg/dL [facility] Comment: Supplemental ranges: <140 mg/dL before meals <180 mg/dL all other times of the day Blood specimen (specimen) 12/08/2018 10:34 AM EDT 12/08/2018 10:34 AM EDT Irwin Fischer MD POINT OF CARE TEST O RDERABLES [facility] [place] [address] documented in this encounter Visit Diagnoses Diagnosis [...] Unit) 1530 (Continued Bag - Provider: Bailee Paige, MARTIN) PRN Medication Order 12/06/2018 12/07/2018 12/08/2018 fentaNYL 50 mcg/mL multi-dose injection (CANCELED) ONCE PRN, Starting on Thu12/08/18 at 1434, Until Thu12/08/18 at 1509, Intra-Operative (Intra-Procedure), Routine 1434 (Given - Provid er: Anthony Jaime, MARTIN)1443 (Given - Provider: Bridget Mukherjee RN) heparin (porcine) injection (CANCELED) ONCE PRN, Starting on Thu12/08/18 at 1447, Until Thu12/08/18 at 1509, Cath (Intra-Procedure), Routine 1447 (Given - Provid er: Anthony Jaime, MARTIN) midazolam (PF) (VERSED) multi-dose injection (CANCELED) ONCE PRN, Starting on Thu12/08/18 at 1434, Until Thu12/08/18 at 1509, Cath (Intra-Procedure), Routine 1434 (Given - Provid er: Anthony Jaime, MARTIN)1443 (Given - Provider: Bridget Mukherjee RN) nitroGLYcerin [...] cannulation) documented in this encounter Care Teams Bow Maker Custom Relationship Specialty Start Date End Date Antonella Lucas PA [address] [place] [address] PCP - General Family Medicine 05/06/17 11/01/19 documented as of this encounter
--- OUTSIDE RECORDS SUMMARY | 2023-12-04 00:39 | XMS_ITS | Encounter Summary ---
Author Organization [facility] Address [facility] [place] [address] Care Team Providers Care Jewel Waxer Name Role Phone Antonella Lucas Primary Care Provider [phone]- [phone] Encounter Details Date Type Department Care Team (Late st Contact Info) Description 09/07/2018 11:55 AM EDT Ancillary Procedure Radiology Library at [facility] [place] [address] Celine Finley MD [facility] [address] Social History Tobacco Use Types Packs/Day Years [...] Lower Extremity (09/07/2018 11:54 AM EDT) Narrative [facility] - 09/07/2018 11:54 AM EDT This exam is auto-finalizing. It's purpose is for storage only. Celine Finley MD IMG FILM LIBRARY ORD ERABLES [facility] [place], [place] documented in this encounter Visit Diagnoses Not on filedocumented in this encounter Care Teams Jewel Waxer Relationship Specialty Start Date End Date Antonella Lucas PA [address] [place] [address] PCP - General Family Medicine 05/06/17 11/01/19 documented as of this encounter
--- OUTSIDE RECORDS SUMMARY | 2023-12-04 00:39 | XMS_ITS | Encounter Summary ---
Author Organization [facility] Address [facility] [place] [address] Care Team Providers Care Pier Worker Name Role Phone Uma Asif MD Primary Care Provider [phone] Reason for Visit * Reason Comments Coronary Artery Disease hyperlipidemia Encounter Details Date Type Department Care Team (Late st Contact Info) Description 06/14/2012 7:40 AM EDT Follow-Up Cardiology at [address] [address] Simon Loyd MD [facility] [place] [address] CAD (coronary artery disease) (Primary Dx) Discharge [...] for symptoms of chest pain or discomfort. [phone]. documented in this encounter Progress Notes * [...] Coronary atherosclerosis of unspecified type of vessel, kaltag or graft documented in this encounter Care Teams Pier Worker Relationship Specialty Start Date End Date Uma Asif MD [address] [place] [address] PCP - General 02/05/10 05/05/17 documented as of this encounter
--- OUTSIDE RECORDS SUMMARY | 2023-12-04 00:39 | XMS_ITS | Encounter Summary ---
Author Organization [facility] Address [facility] [address] Care Team Providers Care Service Center Appraiser Name Role Phone Uma Asif MD Primary Care Provider [phone] Reason for Visit * Reason Comments Coronary Artery Disease Encounter Details Date Type Department Care Team (Late st Contact Info) Description 06/21/2013 7:40 AM EDT Follow-Up Cardiology at [address] [address] Simon Loyd MD [facility] [place] [address] CAD (coronary artery disease) (Primary Dx) Discharge [...] from the original note were not included. [facility] Chest Pain (Angina): After Your Visit [...] is not getting better within 5 minutes, [id number] immediately. After calling 911, continue to stay on the phone with the emergency spun paste machine operator. He or she will give you [...] irregular heartbeat. After you call 911, the spun paste machine operator may tell you to chew 1 [...] You can also view health information on [employer], your personal patient account. Log in or sign up today. Enter H129 in the search box to learn more about Chest Pain (Angina): After Your Visit. ?? [id number] [employer]. Care instructions adapted under license by [facility]. This care instruction is for use with your licensed healthcare professional. If you have questions about a medical condition or this instruction, always ask your healthcare professional. [employer] disclaims any warranty or liability for your use of this information. Content Version: [id number]; Last Revised: September 10, 2011 documented in [...] Coronary atherosclerosis of unspecified type of vessel, knik or graft documented in this encounter Care Teams Service Center Appraiser Relationship Specialty Start Date End Date Uma Asif MD [address] [place] [address] PCP - General 02/05/10 05/05/17 documented as of this encounter
--- OUTSIDE RECORDS SUMMARY | 2023-12-04 00:39 | XMS_ITS | Encounter Summary ---
Author Organization [facility] [place] [address] Care Team Providers Care Ambulette Driver Name Role Phone Antonella Lucas Primary Care Provider [phone]- [phone] Encounter Details Date Type Department Care Team (Late st Contact Info) Description 12/21/2018 Orders Only Cardiology at [address] [address] Shavon Dorman, RN ASCVD (arteriosclerotic cardiovascular disease) [...] Clear Clear [facility] Specific [place] Urine Automated 1.021 1.002 - 1.030 [facility] Color, Urine Dipstick Yellow Yellow [facility] Urine specimen (specimen) 12/23/2018 7:20 AM EDT 12/23/2018 8:00 AM EDT Narrative Resulting Agency Comment Spec In Lab Marlo Keith MD URINE ORDERABLES Performing Organization Address City/State/[facility] Co de Phone Number [facility] [place] [address] documented in this encounter Visit Diagnoses Diagnosis ASCVD (arteriosclerotic cardiovascular disease) Unspecified cardiovascular disease documented in this encounter Care Teams Ambulette Driver Relationship Specialty Start Date End Date Antonella Lucas PA [address] [place] [address] PCP - General Family Medicine 05/06/17 11/01/19 documented as of this encounter
--- OUTSIDE RECORDS SUMMARY | 2023-12-04 00:39 | XMS_ITS | Encounter Summary ---
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, unspecified vessel [...] 10:08 AM EDT 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, unspecified vessel or lesion type DIFFERENTIAL, AUTOMATED Routine 12/21/2018 10:08 AM EDT 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, unspecified vessel or lesion type HC ANTIBODY DETECTION,CAPTURE-R Routine 12/21/2018 10:08 AM EDT 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, unspecified vessel or lesion type ABO/RH TYPING Routine 12/21/2018 10:08 AM EDT 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, unspecified vessel or lesion type HC CBC,PLT & AUTO DIFF Routine 12/21/2018 10:08 AM EDT 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, unspecified vessel or lesion type ANTIBODY SCREEN Routine 12/21/2018 10:08 AM EDT 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, unspecified vessel or lesion type HEPATIC FUNCTION PANEL Routine 12/21/2018 10:08 AM EDT BASIC METABOLIC PANEL Routine 12/21/2018 10:08 AM EDT 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, unspecified vessel or lesion type documented in this encounter Results * Hepatic Function Panel (12/21/2018 10:08 AM EDT) Protein, Total 7.7 6.1 - 8.0 gm/dL [facility] Albumin 4.4 3.2 - 5.2 gm/dL [facility] Aspartate Aminotransferase 14 0 - 39 unit/L [facility] Alanine Aminotransferase 12 0 - 55 unit/L [facility] Alkaline Phosphatase 63 40 - 130 unit/L [facility] Bilirubin, Total 0.3 0.2 - 1.3 mg/dL [facility] Bilirubin, Direct 0.1 0.0 - 0.3 mg/dL [facility] Blood specimen (specimen) Venous Draw / Unknown 12/21/2018 10:08 AM EDT 12/21/2018 10:15 AM EDT Narrative Resulting Agency Comment Spec In Lab Marlo Keith MD CHEMISTRY ORDERABL ES Performing Organization Address [facility]/ZIP Co de Phone Number [facility] [place] [address] * ABORH Recheck Status (12/21/2018 10:08 AM EDT) Pathologist [facility] ABORH Type Recheck Completed [facility] Blood specimen (specimen) 12/21/2018 10:08 AM EDT 12/21/2018 10:09 AM EDT Narrative Resulting Agency Comment Spec In Lab Louis De La O MD BLOOD BANK LAB ORDE RABLES Performing Organization Address City/[facility]/ZIP Co de Phone Number [facility] [place] [address] * (ABNORMAL) Differential, Automated (12/21/2018 10:08 AM EDT) Pathologist [facility] Neutrophil % 72.3 % [facility] Neutrophil Absolute 6.11(H) 1.70 - 6.10 x10(3)/mc L [facility] Lymph % 14.1 % [facility] Lymphocytes Abs 1.2 0.9 - 3.2 x10(3)/mc L [facility] Monocyte % 11.2 % [facility] Monocyte Abs 1.0(H) 0.3 - 0.9 x10(3)/mc L [facility] Eos % 1.4 % [facility] Eosinophils Abs 0.1 0.0 - 0.4 x10(3)/mc L [facility] Basophil % 0.8 % [facility] Baso Absolute 0.1 0.0 - 0.1 x10(3)/mc L [facility] Immature Gran % 0.20 % [facility] Comment: Immature granulocytes(IG's)percentage and absolute count will include metamyelocytes, myelocytes, and promyelocytes. Blood smears from CBCs yielding IG's will be scanned manually for concordance. If this scan disagrees with the automated IG or if promyelocytes are noted, a manual differential will be performed. Immature Gran Absolute 0.02 0.00 - 0.04 x10(3)/mc L [facility] Blood specimen (specimen) 12/21/2018 10:08 AM EDT 12/21/2018 10:15 AM EDT Narrative Resulting Agency Comment Spec In Lab Louis De La O MD HEMATOLOGY ORDERABL ES [facility] [place] [address] * (ABNORMAL) Hemogram (12/21/2018 10:08 AM EDT) White Blood Cell 8.5 4.0 - 9.5 x10(3)/mc L [facility] Red Blood Cell 5.34 4.58 - 5.54 x10(6)/mc L [facility] Hemoglobin 15.9 13.7 - 16.5 gm/dL [facility] Hematocrit 48.4 40.5 - 48.5 % [facility] Mean Cell Volume 90.6 82.9 - 93.1 fL [facility] Mean Cell Hemoglobin 29.8 27.5 - 32.1 pg [facility] Mean Cell Hemoglobin Concentration 32.9 32.0 - 35.7 gm/dL [facility] Platelet 315 145 - 357 x10(3)/mc L [facility] RDW Standard Deviation 45.9(H) 36.0 - 45.0 fL [facility] RDW coefficient of variation 13.6 11.4 - 13.8 % [facility] Mean Platelet Volume 9.1 7.6 - 12.9 fL [facility] NRBC% auto 0.0 % [facility] NRBC Absolute 0.000 0.000 - 0.000 x10(3)/mc L [facility] Blood specimen (specimen) 12/21/2018 10:08 AM EDT 12/21/2018 10:15 AM EDT Narrative Resulting Agency Comment Spec In Lab Louis De La O MD HEMATOLOGY ORDERABL ES Performing Organization Address [facility]/ZIP Co de Phone Number [facility] [place] [place] [address] * Antibody screen (12/21/2018 10:08 AM EDT) [facility] Ab Screen Interp Negative [facility] Expires at 2359 on: 12/26/2018 [facility] Blood specimen (specimen) 12/21/2018 10:08 AM EDT 12/21/2018 10:09 AM EDT Narrative Resulting Agency Comment Spec In Lab Louis De La O MD BLOOD BANK LAB ORDE KARLY Performing Organization Address [facility]/ZIP Co de Phone Number [facility] [place] [address] * ABO/Rh Typing (12/21/2018 10:08 AM EDT) [facility] ABORH Type A Pos [facility] Blood specimen (specimen) 12/21/2018 10:08 AM EDT 12/21/2018 10:09 AM EDT Narrative Resulting Agency Comment Spec In Lab Louis De La O MD BLOOD BANK LAB ORDDarnell BRANDT Performing Organization Address City/[facility]/ZIP Co de Phone Number [facility] [place] [address] * (ABNORMAL) Basic Metabolic Panel (non-fasting) (12/21/2018 10:08 AM EDT) Glucose 138 65 - 199 mg/dL [facility] Comment:Diabetes: >=200 mg/d L plus symptoms Blood Urea Nitrogen 25(H) 10 - 20 mg/dL [facility] Creatinine 1.33 0.80 - 1.50 mg/dL [facility] Sodium 138 135 - 145 mmol/L [facility] Potassium 4.6 3.5 - 5.0 mmol/L [facility] Comment: Please note: ??Patients with WBC >100,000 may have falsely elevated Potassium levels. ??For accurate Potassium quantification in these patients send serum separator tube (gold top) for subsequent determinations. ??Contact the Clinical Chemistry Laboratory if there are any questions. Chloride 101 98 - 107 mmol/L [facility] Carbon Dioxide 25 22 - 31 mmol/L [facility] Anion Gap 12 5 - 15 mmol/L [facility] Calcium 9.5 8.5 - 10.5 mg/dL [facility] Est Glomerular Filtration Rate 55(L) >=60 mL/min/1. 73 m?? [facility] Comment: The eGFR was calculated using the CKD-EPI equation. As with all creatinine based estimates of kidney function, eGFR values calculated with the CKD-EPI equation are not accurate in patients with acute kidney failure, extremes of body mass or the acutely ill. [email or web address] eGFR 64 >=60 mL/min/1. 73 m?? [facility] Comment: The eGFR was calculated using the CKD-EPI equation. As with all creatinine based estimates of kidney function, eGFR values calculated with the CKD-EPI equation are not accurate in patients with acute kidney failure, extremes of body mass or the acutely ill. [email or web address] Blood specimen (specimen) 12/21/2018 10:08 AM EDT 12/21/2018 10:15 AM EDT Narrative Resulting Agency Comment Spec In Lab Louis De La O MD CHEMISTRY ORDERABLE S [facility] [place] [address] documented in this encounter Visit Diagnoses Diagnosis 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, unspecified vessel or lesion type documented in this encounter Care Teams Boat Canvas Maker And Installer Relationship Specialty Start Date End Date Antonella Lucas PA [address] [place] [address] PCP - General Family Medicine 05/06/17 11/01/19 documented as of this encounter
--- OUTSIDE RECORDS SUMMARY | 2023-12-04 00:39 | XMS_ITS | Encounter Summary ---
Author Organization [facility] Address [facility] [place] [address] Care Team Providers Care Parent Trainer Name Role Phone Uma Asif MD Primary Care Provider [phone] Reason for Visit * Reason Comments Medication Refill Encounter Details Date Type Department Care Team (Late st Contact Info) Description 02/24/2012 Refill Cardiology at [address] [address] Simon Loyd MD [facility] [place] [address] Medication Refill Social History Tobacco Use Types [...] hyperlipidemia documented in this encounter Care Teams Parent Trainer Relationship Specialty Start Date End Date Uma Asif MD [address] [place] [address] PCP - General 02/05/10 05/05/17 documented as of this encounter
--- OUTSIDE RECORDS SUMMARY | 2023-12-04 00:39 | XMS_ITS | Encounter Summary ---
Author Organization [facility] [place] [address] Care Team Providers Care Multifold Operator Name Role Phone Antonella Lucas Primary Care Provider +1- [phone] Encounter Details Date Type Department Care Team (Latest Contact Info) Description 12/08/2018 5:48 AM EDT - 12/08/2018 5:50 PM EDT Hospital En[place] [address] Irwin Fischer MD [facility] [place] [address] Discharge Disposition: Home Social History Tobacco Use [...] by your doctor, do not take any cste-osx-itenxqa medicines or herbal preparations without first discussing this with your doctor or pharmacist. There is the possibility of side effect and interactions when these are combined. Follow up Care Who to Call with Questions or Problems If there are any questions or problems that you think might be related to your cardiac cath or angioplasty, contact the spindle repairer laboratory operations coordinator by calling [facility] at . documented in this encounter [...] man with a history of CAD (inferior MA 2009 s/p CK x2 to mid RCA [...] is in the chart. Willam Evans MD Pediatrics Hospitalist PGY-4 12/08/2018 documented in this encounter Miscellaneous Notes * Brief Op Note - Irwin Fischer MD - 12/08/2018 3:48 PM EDT Brief Operative Note Patient Name: Bear Gamboa : [id number] MR#: [id number] Case Date: 12/08/2018 Surgeon: Surgeon(s) and Role: * Irwin Fischer MD - Primary * Orville [place] MD - Fellow Preoperative diagnosis: ASCVD (arteriosclerotic cardiovascular disease) [I25.10] Postoperative diagnosis: ASCVD (arteriosclerotic cardiovascular disease) [I25.10] Procedure(s) (LRB): CARDIAC CATHETERIZATION (N/A) CORONARY ANGIOGRAPHY; W LHC,POSSIBLE PCI (N/A) Findings: LM - Mild diffuse disease; 50% proximal stenosis in the Ramus Intermedius LAD - 100% mid-vessel CASE FINISHER; 50% ostial D2 stenosis; distal vessel receives [...] Glucose, POC 133 65 - 199 mg/dL [facility] Comment: Supplemental ranges: <140 mg/dL before meals <180 mg/dL all other times of the day Blood specimen (specimen) 12/08/2018 10:34 AM EDT 12/08/2018 10:34 AM EDT Irwin Fischer MD POINT OF CARE TEST O RDERABLES [facility] [place] [address] documented in this encounter Visit Diagnoses Not [...] cannulation) documented in this encounter Care Teams Multifold Operator Relationship Specialty Start Date End Date Antonella Lucas PA [address] [place] [address] PCP - General Family Medicine 05/06/17 11/01/19 documented as of this encounter
--- OUTSIDE RECORDS SUMMARY | 2023-12-04 00:39 | XMS_ITS | Encounter Summary ---
Author Organization [facility] [place] [address] Care Team Providers Care Trimmer Operator Three Knife Name Role Phone Antonella Lucas Primary Care Provider [phone]- [phone] Reason for Visit * Auth/Cert Specialty Diagnoses [...] Expiration Date Visits Re quested Visits Authorized [id number] 1 1 Encounter Details Date Type Department Care Team ([facility] Contact Info) Description 12/21/2018 8:00 AM EDT Office [place] [address] Louis De La O MD Coronary artery disease of lumbee heart with stable angina pectoris, unspecified vessel [...] [facility] now had a positive stress [...] CIS - Coronary artery disease inferior STEMI [facility] 02/23/09: proximal RCA, LANDSCAPE ACCOUNT MANAGER LAD. BMS to prox. RCA, BMS to [...] on phone: None Gets together: None Attends samaritan service: None Active member of club or [...] 8:50 AM EDT Coronary artery disease of lumbee heart with stable angina pectoris, unspecified vessel or lesion type @CABG,USING ARTERIAL GRAFT;SINGLE ARTERIAL GRAFT Routine 12/21/2018 8:50 AM EDT Coronary artery disease of lumbee heart with stable angina pectoris, unspecified vessel [...] below. ? Electronically signed by: Shannon Long [facility] ([phone]), at 12/21/2018 11:02 AM Narrative 12/21/2018 11:02 [...] EDT) Glucose 138 65 - 199 mg/dL [facility] Comment:Diabetes: >=200 mg/d L plus symptoms Blood Urea Nitrogen 25(H) 10 - 20 mg/dL [facility] Creatinine 1.33 0.80 - 1.50 mg/dL [facility] Sodium 138 135 - 145 mmol/L [facility] Potassium 4.6 3.5 - 5.0 mmol/L [facility] Comment: Please note: ??Patients with WBC >100,000 may have falsely elevated Potassium levels. ??For accurate Potassium quantification in these patients send serum separator tube (gold top) for subsequent determinations. ??Contact the Clinical Chemistry Laboratory if there are any questions. Chloride 101 98 - 107 mmol/L [facility] Carbon Dioxide 25 22 - 31 mmol/L [facility] Anion Gap 12 5 - 15 mmol/L [facility] Calcium 9.5 8.5 - 10.5 mg/dL [facility] Est Glomerular Filtration Rate 55(L) >=60 mL/min/1. 73 m?? [facility] Comment: The eGFR was calculated using the CKD-EPI equation. As with all creatinine based estimates of kidney function, eGFR values calculated with the CKD-EPI equation are not accurate in patients with acute kidney failure, extremes of body mass or the acutely ill. http://Le[employer]/[facility] TULSAnkf eGFR 64 >=60 mL/min/1. 73 m?? [facility] Comment: The eGFR was calculated using the CKD-EPI equation. As with all creatinine based estimates of kidney function, eGFR values calculated with the CKD-EPI equation are not accurate in patients with acute kidney failure, extremes of body mass or the acutely ill. http://Leosphere/DHMCnkf Blood specimen (specimen) 12/21/2018 10:08 AM EDT 12/21/2018 10:15 AM EDT Narrative Resulting Agency Comment Spec In Lab Louis De La O MD CHEMISTRY ORDERABLE S [facility] [place] [address] documented in this encounter Visit Diagnoses Diagnosis Coronary artery disease of lumbee heart with stable angina pectoris, unspecified vessel or lesion type Coronary artery disease of lumbee heart with stable angina pectoris, unspecified vessel or lesion type documented in this encounter Care Teams Trimmer Operator Three Knife Relationship Specialty Start Date End Date Antonella Lucas PA [address] [place] [address] PCP - General Family Medicine 05/06/17 11/01/19 documented as of this encounter
--- OUTSIDE RECORDS SUMMARY | 2023-12-04 00:39 | XMS_ITS | Encounter Summary ---
Author Organization [facility] Address [facility] [place] [address] Care Team Providers Care Juke Box Mechanic Name Role Phone Uma Asif MD Primary Care Provider [phone] Encounter Details Date Type Department Care Team (Late st Contact Info) Description 03/18/2010 11:10 AM EST Follow-Up Cardiology at [address] [address] Simon Loyd MD [facility] [place] [address] Discharge Disposition: Home Social History Tobacco Use [...] on filedocumented in this encounter Care Teams Juke Box Mechanic Relationship Specialty Start Date End Date Uma Asif MD [address] [place] [address] PCP - General 02/05/10 05/05/17 documented as of this encounter
--- NOTE | 2023-12-04 07:30 | DI.MRI_ITS ---
Exam(s) MR LUMBAR SPINE WO EXAM: MR LUMBAR SPINE WO CLINICAL HISTORY: PAIN,SPINAL STENOSIS,M48.00. TECHNIQUE: Multiplanar multisequence MRI of the Lumbar spine was performed. COMPARISON: CT CT CHEST/ABD/PEL WO from 08/31/2021 CR XR LUMBAR SPINE COMPLETE from 11/19/2023 FINDINGS: Conus medullaris is at normal level. There is no evidence of conus mass nor subjacent clumping of in trathecal nerve roots to suggest arachnoiditis. The distal thecal sac appears unremarkable.There is no evidence of Tarlov intrasacral cysts nor other significant findings within the sacral canal Bones:There are no fractures nor ominous osseous lesions in the lumbar vertebral bodies and visualize d sacrum. Bilateral pars defects at L5 level noted the mild anterolisthesis L5 upon S1 (see below). Small Schmorl's node invagination XXXX are noted in the superior and inferior endplates of L1 as wel l as superior endplate of L3 and L5. These are not acute. With respect to the individual levels... T12-L1: Unremarkable L1-2: Normal disc height and signal. No disc herniation nor central canal stenosis.No foraminal steno sis L2-3: Normal disc height. Movement more all annular bulging but without a significant disc herniation . Central canal dimensions are lower normal.No significant foraminal stenosis. Mild degenerative ch anges in the facet joints. L3-4: This level exhibits moderate relatively uniform disc height loss. Posteriorly there is severe central spinal canal stenosis. This is predominately due to relatively symmetrical annular bulging a nd short AP dimensions the pedicles. There is mild degenerative change in the facet joints at this l evel. There is only minimal foraminal stenosis on either side. L4-5: This level exhibits mild disc space narrowing.. There is broad annular bulging, minimally more prominent on the right side. There is severe central spinal canal stenosis also evident at this lev el due to the annular bulging and short AP dimensions of the pedicles. There are also mild degenerat donato changes in the facet joints. There is increased fluid signal seen within both facet joints. The re are no degenerative synovial cysts. There is ligamentum flavum hypertrophy also evident bilateral ly at this level contributing to the canal stenosis. There is also moderate bilateral foraminal sten osis which is predominately due to annular bulging extending into the floor both exiting neural juan m mary, the degenerative changes in the facet joints is, and short AP dimensions of the pedicles. L5-S1: This level exhibits advanced chronic-type disc space narrowing and there is mild anterolisthes is of L5 upon S1 caused by bilateral L5 pars defects evident at this level. There is approximately 7 mm anterior listhesis of L5 the upon S1. However, the central canal dimensions are within normal li mits. There is, however, severe bilateral foraminal stenosis with significant impingement of the exi ting bilateral nerve roots at this level, these nerve roots being impinged between the overlying L5 p edicles and the subjacent annular bulging and-pseudo herniation of the annulus. Soft tissues: Benign cysts are noted in both kidneys. IMPRESSION: 1. Multilevel findings as described individually above. 2. There is severe central spinal canal stenosis at L3-4 and L4-5 levels 3. There is moderate bilateral foraminal stenosis at L4-5 level and more severe bilateral foraminal s tenosis at L5-S1 level due to the disc height loss and listhesis with lateral recesses being carried forward at this level and severe impingement of the bilateral exiting nerve roots between the pedicle s and subjacent annular bulging. DATA REPOSITORY:
== END 2023-12-04 00:55 ==
LOC: DI 00:35
PROVIDERS: PCP Physician Assistant Medical; Visit Provider Student in an Organized Health Care Education/Training Program
DX: M48.062 Spinal stenosis, lumbar region with neurogenic claudication (principal)
CPT/HCPCS: 72148

== ENCOUNTER 2023-12-29 08:48 | Outpatient (CLI) | payer MEDICARE, MEDICAID, SELFPAY ==
[2023-12-29 09:04] VITALS: BP 110/67; PULSE 41; RESP 18; TEMP 36.4; O2SAT 94
--- NOTE | 2023-12-29 09:05 | PDOC.PAIN_ITS ---
Date of service: 12/29/23 Time of Service: 09:54 Pain Managment Procedure Note Procedure Note Procedure Note: Lumbar Interlaminar Epidural Steroid Injection ? Location: L5-S1 ? Pre-procedure Diagnosis: M54.16- Radiculopathy, LUMBAR region ? Post-procedure Diagnosis:? The same as above ? Sedation:? ? none ? Medication: Depo-Medrol 40 mg, Omnipaque 1 mL ? Estimated blood loss:? less than 2 cc ? Surgeon:? Gregor Pepe MD COMMENT: Pt has HgA1c 8.2 so less steroid used. multi-level stenosis ? Procedure Detail:? The procedure and potential risks were explained to the patient and informed written consent was obtained. The patient was escorted to the procedure room and placed in the prone position. Pillows were utilized for proper positioning and comfort. Time out was performed in the procedure room with nursing staff confirming the patient's identity, procedure to be performed, allergies, and any blood thinning or anti-platelet medications.? The patient's neck and upper back was prepped with ChloraPrep and draped in a sterile fashion. Sterile technique was maintained throughout the procedure.? Sterile gloves were used, a face mask was worn, and new single dose vials of all medications were used with the top being swabbed with alcohol and given time to dry prior to withdrawal of medication. Lidocane 1% was used to anesthetize the skin.Using a 25-gauge 1.5 inch needle, 1% lidocaine was instilled into the superficial soft tissue overlying the targeted area to provide local anesthesia. With fluoroscopic guidance, a 17 -gauge Tuohy needle was advanced toward the sacral hiatus but unable to access so interlaminar space of L5-S1 approach used. The needle was then advance through the ligamentum flavum and into the posterior epidural space using the loss of resistance technique. Correct needle placement was confirmed through review of the AP and contralateral oblique fluoroscopic views. A 19-gauge arrow catheter was threaded slightly cephalad Following negative aspiration, one cc of Omnipaque 240 contrast was injected which confirmed good flow throughout the epidural space and no evidence of vascular flow or flow into adjacent compartments. Next, following negative a spiration, 1 cc's of normal saline and 80mg of Depo-Medrol was injected. The needle was gently removed. The patient tolerated the procedure well and was transported to the recovery area for observation and discharge instructions. Permanent images saved and recorded. PAIN PRE-PROCEDURE 04/25 POST-PROCEDURE 04/25 Plan:? Follow up prn. COMMENT: Will have patient return if no improvement to discuss other options. Consider TFESI L4, L5 left. Consider surgical eval ( though high risk). Consider MBB/RF if mostly axial pain.
[2023-12-29 09:23] VITALS: O2SAT 93
[2023-12-29 09:30] VITALS: O2SAT 92
[2023-12-29 09:40] VITALS: O2SAT 91
[2023-12-29] MEDS: Omnipaque 240 MG/ML 50 ML BTL IJ (09:47)
[2023-12-29] MEDS: Epidural Tray 1 EACH MC (09:48)
[2023-12-29] MEDS: methylPREDNISolone ACETATE 40 MG/ML VIAL IJ (09:48)
--- NOTE | 2023-12-29 09:48 | DI.RAD_ITS ---
Exam(s) XR PAIN CLINIC LUMBAR SP 2V EXAM: XR PAIN CLINIC LUMBAR SP 2V CLINICAL HISTORY: DX: Lumbar Radiculopathy TECHNIQUE: 2D and realtime digital imaging was performed. CONTRAST MATERIAL: Refer to procedure report. COMPARISON: No exams were available for comparison FINDINGS: Fluoroscopy was provided for Dr. Pepe during the performance of a lumbar epidural steroid injecti on. Please refer to the procedure report for complete details. Ka,r=40.0 mGy IMPRESSION: RADIATION DOSE DELIVERED: 0.0 0.0 0
== END 2023-12-29 08:49 | disposition home or self-care (01) ==
LOC: PC 08:49
PROVIDERS: PCP Physician Assistant Medical; Visit Provider Anesthesiology Pain Medicine
DX: M54.16 Radiculopathy, lumbar region (principal); M54.50 Low back pain, unspecified
CPT/HCPCS: 00123; 62323; 72100; J1010; J2003; Q9967

== ENCOUNTER 2024-01-12 23:59 | Outpatient (REF) | payer MEDICARE, MEDICAID, SELFPAY ==
[2024-01-12 17:37] LABS: Anion Gap 9.4 mmol/L (3-11); BUN 41 mg/dL (7-18); CO2 27.6 mmol/L (21.0-32.0); CREATININE 1.7 mg/dL (0.70-1.30); Calcium 9.1 mg/dL (8.5-10.1); Chloride 108 mmol/L (98-107); Estimated GFR 42.57 (mL/min/1.73m2); Glucose 163 mg/dL (74-106); Potassium 4.5 mmol/L (3.5-5.1); Sodium 145 mmol/L (136-145)
[2024-01-12 18:58] LABS: Hemoglobin A1C 7.2 % (<5.7)
== END 2024-01-13 | disposition home or self-care (01) ==
LOC: NCHCN 23:59
PROVIDERS: PCP Physician Assistant Medical; Visit Provider Physician Assistant Medical
DX: E11.9 Type 2 diabetes mellitus without complications (principal)
CPT/HCPCS: 80048; 83036

== ENCOUNTER 2024-01-21 03:53 | Outpatient (CLI) | payer MEDICARE, MEDICAID, SELFPAY ==
[2024-01-21] MEDS: Inhaler, Assist Device 1 EACH MC (09:25)
[2024-01-21] MEDS: Levalbuterol HFA 15 GM INH 4 PUFF IH (09:25)
--- NOTE | 2024-01-22 10:12 | W.PFT ---
Date of service: 01/21/24 Time of Service: 07:59 Pulmonary Function Test Result Indications: Dyspnea Interpretation Spirometry: No airflow limitation. No bronchodilator response. Lung Volumes: Normal lung volumes Diffusion Capacity: Normal diffusion Airway Pressure: Normal airways resistance Clinical Correlation therefore is recommended.
== END 2024-01-21 03:54 | disposition home or self-care (01) ==
PROVIDERS: PCP Physician Assistant Medical; Visit Provider Student in an Organized Health Care Education/Training Program
DX: R06.00 Dyspnea, unspecified (principal)
CPT/HCPCS: 94060; 94726; 94729

== ENCOUNTER 2024-03-13 09:42 | Emergency (ER) | payer MEDICARE, MEDICAID, SELFPAY ==
[2024-03-13 09:54] VITALS: BP 142/74; PULSE 73; RESP 20; TEMP 36.8; O2SAT 91
--- OUTSIDE RECORDS SUMMARY | 2024-03-13 10:08 | XMS_ITS | Encounter Summary ---
[place] [address] Care Team Providers Care Tax Consultant Name Role Phone Antonella Lucas Primary Care Provider +1- [phone] Encounter Details Date Type Department Care Team (Latest Contact Info) Description 05/09/2019 11:40 AM EST Laboratory Appointment Lab [address] [place] [id number] Thyroid nodule Social History Tobacco Use Types [...] CHEMISTRY ORDERABLE S [facility] [place] [address] * (ABNORMAL) TSH (05/09/2019 11:49 AM EST) Thyroid Stimulating Hormone 5.28(H) 0.27 - 4.20 mcIU/mL [facility] Blood specimen (specimen) 05/09/2019 11:49 AM EST 05/09/2019 11:55 AM EST Narrative Resulting Agency Comment Spec In Lab Mickey Alejandra MD CHEMISTRY ORDERABLE S Performing Organization Address City/[facility]/ZIP Co de Phone Number [facility] [place] [address] documented in this encounter Visit Diagnoses Diagnosis Thyroid nodule Nontoxic uninodular goiter documented in this encounter Care Teams Tax Consultant Relationship Specialty Start Date End Date Antonella Lucas PA [address] [place] [address] PCP - General Family Medicine 05/06/17 11/01/19 documented as of this encounter
--- OUTSIDE RECORDS SUMMARY | 2024-03-13 10:08 | XMS_ITS | Encounter Summary ---
Author Organization [facility] [place] [address] Care Team Providers Care Charter Driver Name Role Phone Antonella Lucas Primary Care Provider +1- [phone] Encounter Details Date Type Department Care Team (Latest Contact Info) Description 01/25/2019 2:00 PM EST Office Visit Cardiology at [address] [address] Shavon Dorman RN ASCVD (arteriosclerotic cardiovascular disease) [...] INJURY (DANIELA) FOLLOWING CARDIAC SURGERY STUDY NUMBER: [id number] Phase 3 for Prevention of MAKE in Subjects at High Risk for DANIELA Following Cardiac Surgery Principle Lot Boss: Marlo Keith MD, MS I had the pleasure of meeting with Bear Gamboa in the clinic today. The purpose of the visit isin follow up at the 30 day time-point for participation in the [id number] clinical trial. Ongoing adverse events and interim [...] 18. Central Labs: drawn and sent to [facility] for processing/shipping. documented in this encounter Plan of Treatment Not on file documented as of this encounter Visit Diagnoses Diagnosis ASCVD (arteriosclerotic cardiovascular disease) Unspecified cardiovascular disease documented in this encounter Care Teams Charter Driver Relationship Specialty Start Date End Date Antonella Lucas PA [address] [place] [address] PCP - General Family Medicine 05/06/17 11/01/19 documented as of this encounter
--- OUTSIDE RECORDS SUMMARY | 2024-03-13 10:08 | XMS_ITS | Encounter Summary ---
Author Organization [facility] Address [facility] [place] [address] Care Team Providers Care Associate Teacher Name Role Phone Antonella Lucas Primary Care Provider +1- [phone] Encounter Details Date Type Department Care Team (Latest Contact Info) Description 01/25/2019 12:05 PM EST - 01/25/2019 12:16 PM [facility] Encounter XRay at [address] [place] [address] Louis De La O MD S/P CABG [...] status documented in this encounter Care Teams Associate Teacher Relationship Specialty Start Date End Date Antonella Lucas PA [address] [place] [address] PCP - General Family Medicine 05/06/17 11/01/19 documented as of this encounter
--- OUTSIDE RECORDS SUMMARY | 2024-03-13 10:08 | XMS_ITS | Encounter Summary ---
Author Organization [facility] Address [facility] [place] [address] Care Team Providers Care Mill Hand Name Role Phone Antonella Lucas Primary Care Provider +1- [phone] Reason for Visit * Reason Comments Referral Nodule * Consultation (Routine) - Closed Specialty Diagnoses / Procedures Referred By Nataliia hurt Referred To Contact Endocrinology Diagnoses Nontoxic single thyroid nodule THYROID NODULE Antonella Lucas PA [address] [place] [address] [facility] [address] [place] [id number] Referral ID Status Reason Start Date Expiration Date V isits Requested Visits Authorized [id number] Closed Consult, Test & Treat [facility] PCP Updated and/or Approved 05/03/2019 05/02/2020 1 1 Encounter Details Date Type Department Care Team (Late st Contact Info) Description 05/09/2019 1:00 PM EST Office [place] [address] Mickey Alejandra MD [facility] [place] [address] Thyroid nodule; Hypothyroidism, unspecified type [...] Get blood drawn in 6 weeks at [facility] for TSH documented in this encounter [...] present on a CT scan done at [facility] earlier in 2018 in the setting [...] by Louis De La O MD at [facility] MAIN OR ??? PRO CABG, ARTERY-VEIN, SINGLE N/A 12/23/2018 @CABG, VENOUS & ARTERIAL GRAFT;SINGLE VEIN GRAFT (WRVU 3.61) performed by Louis De La O MD at [facility] MAIN OR ??? PRO ENDOSCOPY W/VIDEO-ASST VEIN HARVEST, CABG N/A 12/23/2018 ENDOSCOPIC HARVEST VEIN(S) FOR CABG (WRVU 0.31) performed by Louis De La O MD at [facility] MAIN OR Review of Systems: As [...] Office Visit from 05/09/2019 in Endocrinology at [facility] Office Visit from 03/22/2019 in Cardiac Surgery at [facility] Weight 114.9 kg (253 lb 4.8 oz) [...] to contact me. Sincerely, Mickey Alejandra MD Project Safety Managercorrugator helper Endocrinology Section [facility] * Mickey Alejandra MD - 05/09/2019 1:00 PM EST ENDOCRINOLOGY THYROID ULTRASOUND REPORT Patient:Bear Gamboa, [id number] Date of exam: 05/09/2019 Indication: concern for thyroid nodule on CT Comparison: no prior US in system Performed by: Mickey Alejandra MD Real time images of the thyroid gland were obtained using a [employer] US machine. All measurements are given as [...] Stimulating Hormone 5.28(H) 0.27 - 4.20 mcIU/mL [facility] Blood specimen (specimen) 05/09/2019 11:49 AM EST 05/09/2019 11:55 AM EST Narrative Resulting Agency Comment Spec In Lab Mickey Alejandra MD CHEMISTRY ORDERABLE S [facility] [place] [address] documented in this encounter Visit Diagnoses Diagnosis Thyroid nodule Nontoxic uninodular goiter Hypothyroidism, unspecified type documented in this encounter Care Teams Mill Hand Relationship Specialty Start Date End Date Antonella Lucas PA [address] [place] [address] PCP - General Family Medicine 05/06/17 11/01/19 documented as of this encounter
--- OUTSIDE RECORDS SUMMARY | 2024-03-13 10:08 | XMS_ITS | Encounter Summary ---
Author Organization [facility] [place] [address] Care Team Providers Care Rosin Barrel Filler Name Role Phone Antonella Lucas Primary Care Provider +1- [phone] Encounter Details Date Type Department Care Team (Late st Contact Info) Description 02/03/2019 Orders Only Cardiology at [address] [address] Shavon Dorman, RN Research study patient Social [...] (03/22/2019 12:49 PM EST) Research Venipuncture Drawn [facility] Blood specimen (specimen) 03/22/2019 12:49 PM EST 03/22/2019 12:54 PM EST Narrative Resulting Agency Comment Spec In Lab Marlo Keith MD CHEMISTRY ORDERABL ES [facility] [place] [address] * Research Venipuncture (02/22/2019 10:51 AM EST) Research Venipuncture Drawn [facility] Blood specimen (specimen) 02/22/2019 10:51 AM EST 02/22/2019 11:00 AM EST Narrative Resulting Agency Comment Spec In Lab Marlo Keith MD CHEMISTRY ORDERABL ES [facility] [place] [address] documented in this encounter Visit Diagnoses Diagnosis Research study patient Reserved for inherently not codable concepts WITHOUT codable children documented in this encounter Care Teams Rosin Barrel Filler Relationship Specialty Start Date End Date Antonella Lucas PA [address] [place] [address] PCP - General Family Medicine 05/06/17 11/01/19 documented as of this encounter
--- OUTSIDE RECORDS SUMMARY | 2024-03-13 10:08 | XMS_ITS | Encounter Summary ---
Author Organization [facility] [place] [address] Care Team Providers Care Auto Damage Insurance Appraiser Name Role Phone Antonella Lucas Primary Care Provider +1- [phone] Encounter Details Date Type Department Care Team (Latest Contact Info) Description 03/22/2019 12:15 PM EST Laboratory Appointment Cardiology at [address] [address] Research study patient Social History Tobacco Use [...] (03/22/2019 12:49 PM EST) Research Venipuncture Drawn [facility] Blood specimen (specimen) 03/22/2019 12:49 PM EST 03/22/2019 12:54 PM EST Narrative Resulting Agency Comment Spec In Lab Marlo Keith MD CHEMISTRY ORDERABL ES [facility] [place] [address] documented in this encounter Visit Diagnoses Diagnosis Research study patient Reserved for inherently not codable concepts WITHOUT codable children documented in this encounter Care Teams Auto Damage Insurance Appraiser Relationship Specialty Start Date End Date Antonella Lucas PA [address] [place] [address] PCP - General Family Medicine 05/06/17 11/01/19 documented as of this encounter
--- OUTSIDE RECORDS SUMMARY | 2024-03-13 10:08 | XMS_ITS | Encounter Summary ---
Author Organization [facility] Address [address] [place] [address] Care Team Providers Care Electric Distribution Checker Name Role Phone Antonella Lucas PA-C Primary Care Provider + Encounter Details Date Type Department Care Team (Late st Contact Info) Description 06/13/2022 15:00 EDT Phlebotomy Only [facility] ED Center 2 Phlebotomy [address], [place] [address] Behavioral Health Assistant, Acc Phlebotomy Retinal venous tortuosity Social History Tobacco Use Types Packs/Day Years Used Date Smoking Tobacco: Never Assessed Interpersonal Safety Answer Date Record ed Physically Hurt Never 04/25/2020 Verbally Threaten Not on file 04/25/2020 Sex and Gender Information Value Date Recorded Sex Assigned at Not on file Legal Sex Male 17:16 EST Gender Identity Male 01/28/2022 13:10 EST Sexual [...] 62.3 55.8 - 66.1 % 06/16/2022 15:07 [facility] Albumin g/dL 4.4 3.6 - 5.2 g/dL 06/16/2022 15:07 [facility] Alpha-1 % 5.0(H) 2.9 - 4.9 % 06/16/2022 15:07 [facility] Alpha-1 g/dL 0.40 0.15 - 0.40 g/dL 06/16/2022 15:07 [facility] Alpha-2 % 9.0 7.1 - 11.8 % 06/16/2022 15:07 [facility] Alpha-2 g/dL 0.60 0.50 - 1.00 g/dL 06/16/2022 15:07 [facility] Beta % 11.6 8.4 - 13.1 % 06/16/2022 15:07 [facility] Beta g/dL 0.80 0.60 - 1.20 g/dL 06/16/2022 15:07 [facility] Gamma % 12.1 11.1 - 18.8 % 06/16/2022 15:07 [facility] Gamma g/dL 0.80 0.60 - 1.60 g/dL 06/16/2022 15:07 [facility] SPEP Comment No apparent monoclonal protein seen on serum electrophoresis 06/16/2022 15:07 [facility] Comment:See scanned/suppleme ntary report. Immunotyping , Serum Current Interpretation: Negative for monoclonal immunoglobulins. Reviewed by: Dar Freeman MD, PhD 06/16/2022 13:39. 06/16/2022 15:07 [facility] Total Protein 7.0 6.3 - 8.2 g/dL 06/16/2022 15:07 [facility] Blood VENOUS BLOOD / Unknown Venipuncture / Unknown 06/13/2022 15:05 EDT 06/13/2022 15:15 EDT Shaquille Vasquez MD CHEMISTRY & BLOOD GAS ORDERABLES Final Result Performing Organization Address [facility] Co de Phone Number [facility] [address] [place] [address] * PROTEIN, TOTAL (06/13/2022 15:05 EDT) Blood VENOUS BLOOD / Unknown Venipuncture / Unknown 06/13/2022 15:05 EDT 06/13/2022 15:15 EDT Shaquille Vasquez MD CHEMISTRY & BLOOD GAS ORDERABLES Final Result Performing Organization Address [facility] de Phone Number [facility] [address] [place] [address] documented in this encounter Visit Diagnoses Diagnosis 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
--- OUTSIDE RECORDS SUMMARY | 2024-03-13 10:08 | XMS_ITS | Encounter Summary ---
Author Organization [facility] Address [facility] [place] [address] Care Team Providers Care Ed Tech Name Role Phone Antonella Lucas Primary Care Provider +1- [phone] Reason for Referral * Diagnostic Test (Routine) - Closed Specialty Diagnoses / Procedures Referred By Contac t Referred To Contact Radiology Diagnoses S/P CABG x [address] Chest wo Contrast (Generic) Luz Myles [place] [facility] [place] [address] [facility] [place] [address] Referral ID Status Reason Start Date Expiration Date V isits Requested Visits Authorized [id number] Closed Specialty Service Requested 12/27/2018 12/27/2019 1 1 Reason for Visit * Diagnostic Test (Routine) - Closed Specialty Diagnoses / Procedures Referred By Contac t Referred To Contact Radiology Diagnoses S/P CABG x [address] Chest wo Contrast (Generic) Luz Myles [place] [facility] [place] [address] [facility] [place] [address] Referral ID Status Reason Start Date Expiration Date V isits Requested Visits Authorized [id number] Closed Specialty Service Requested 12/27/2018 12/27/2019 1 1 Encounter Details Date Type Department Care Team (Latest Contact Info) Description 01/25/2019 12:17 PM EST - 01/25/2019 11:59 PM EST Hospital [place] [address] Louis De La O MD S/P CABG [...] below. ? Electronically signed by: Gladys Leslie [facility] ([phone]), at 01/25/2019 3:01 PM Narrative 01/25/2019 3:01 [...] status documented in this encounter Care Teams Ed Tech Relationship Specialty Start Date End Date Antonella Lucas PA [address] [place] [address] PCP - General Family Medicine 05/06/17 11/01/19 documented as of this encounter
--- OUTSIDE RECORDS SUMMARY | 2024-03-13 10:08 | XMS_ITS | Encounter Summary ---
Author Organization [facility] [place] [address] Care Team Providers Care Transmission Superintendent Name Role Phone CleomarisaAntonella crow Luly ARRIAGA Primary Care Provider +1- [phone] Encounter Details Date Type Department Care Team (Late st Contact Info) Description 03/22/2019 1:20 PM EST Office Visit Cardiology at [address] [address] Keven Dyson, RN Research study patient Social [...] INJURY (DANIELA) FOLLOWING CARDIAC SURGERY STUDY NUMBER: [id number] Phase 3 for Prevention of MAKE in Subjects at High Risk for DANIELA Following Cardiac Surgery Principle Vice President Compliance: Marlo Keith MD, MS I had the pleasure of meeting with Bear Gamboa in the clinic today. The purpose of the visit isin follow up at the XXX time-point for participation in the [id number] clinical trial. Ongoing adverse events and interim [...] shortly after having been discharged from an [place]. Current Medications: Current Outpatient Medications: ??? naproxen [...] Height: Central Labs: drawn and sent to [facility] for processing/shipping. * Keven Dyson RN - [...] children documented in this encounter Care Teams Transmission Superintendent Relationship Specialty Start Date End Date Antonella Lucas PA [address] [place] [address] PCP - General Family Medicine 05/06/17 11/01/19 documented as of this encounter
--- OUTSIDE RECORDS SUMMARY | 2024-03-13 10:08 | XMS_ITS | Encounter Summary ---
[place] [address] Care Team Providers Care Office Clerk Name Role Phone Antonella Lucas Primary Care Provider +1- [phone] Encounter Details Date Type Department Care Team (Late st Contact Info) Description 02/22/2019 11:20 AM EST Office [place] [address] Louis De La O MD S/P CABG [...] status documented in this encounter Care Teams Office Clerk Relationship Specialty Start Date End Date Antonella Lucas PA [address] [place] [address] PCP - General Family Medicine 05/06/17 11/01/19 documented as of this encounter
--- OUTSIDE RECORDS SUMMARY | 2024-03-13 10:08 | XMS_ITS | Clinical Summary ---
Author Organization [facility] Address [address] [place] [address] Care Team Providers Care Service Dismantler Name Role Phone Antonella Lucas PA-C Primary Care Provider + Allergies Active Allergy Reactions Criticality Noted Date Comments Bee Venom Protein (Honey Bee) Anaphylaxis High 01/25 Lisinopril 06/13/2022 Medications celecoxib (CELEBREX) 100 mg capsule Take 100 [...] 25 mcg tablet Take by mouth daily. Active LANTUS SOLOSTAR U-100 INSULIN 100 unit/mL (3 mL) injection pen INJECT 24 UNITS SUBCUTANEOUSLY AT BEDTIME INCREASE BY 2 UNITS EVERY 3 DAYS UNTIL FASTING BLOOD SUGAR IS BELOW 150 3 Active NOVOLOG FLEXPEN U-100 INSULIN 100 unit/mL (3 mL) injectable pen INJECT UNDER THE SKIN FOUR TIMES DAILY ON SLIDING SCALE DIRECTED. MAXIMUM DAILY DOSE IS 60 UNITS 3 Active allopurinoL (ZYLOPRIM) 100 mg tablet Take 100 mg by mouth daily. 3 Active Active Problems Problem Noted Date Diagnosed [...] Last Done Comments Hepatitis C Screen 1950 Fall Risk Screening 2017 COVID-19 Vaccine (2023-25 season) 2023 RSV Immunization ( o r 60+ Years) (1 - 1-dose 75+ series) 06/21/2027 [place] Care Teams Service Dismantler Relationship Specialty Start Date End Date Antonella Lucas PA-C [address] [place] [phone] PCP - General 01/28/22
--- OUTSIDE RECORDS SUMMARY | 2024-03-13 10:08 | XMS_ITS | Encounter Summary ---
Author Organization [facility] [place] [address] Care Team Providers Care Dry House Tender Name Role Phone Antonella Lucas Primary Care Provider +1- [phone] Encounter Details Date Type Department Care Team (Late st Contact Info) Description 12/22/2019 Notes Only Cardiology at [address] [address] Shavon Dorman RN Social History Tobacco Use [...] Dunne RN - 12/22/2019 11:32 AM EDT [id number] study: Central lab results from Mr. Gamboa's post study follow up visit (12/20/19) were reviewed with . Upon his request the PCP office was contacted and these lab results were sent for their review and management. documented in this encounter Plan of Treatment Not on file documented as of this encounter Visit Diagnoses Not on filedocumented in this encounter Care Teams Dry House Tender Relationship Specialty Start Date End Date Antonella Lucas PA [address] [place] [address] PCP - General Family Medicine 12/20/19 documented as of this encounter
--- OUTSIDE RECORDS SUMMARY | 2024-03-13 10:08 | XMS_ITS | Encounter Summary ---
Author Organization [facility] [place] [address] Care Team Providers Care Audio Narrator Name Role Phone Antonella Lucas Primary Care Provider +1- [phone] Encounter Details Date Type Department Care Team (Latest Contact Info) Description 02/22/2019 10:45 AM EST Laboratory Appointment Cardiology at [address] [address] Research study patient Social History Tobacco Use [...] MD CHEMISTRY ORDERABL ES [facility] [place] [address] documented in this encounter Visit Diagnoses Diagnosis Research study patient Reserved for inherently not codable concepts WITHOUT codable children documented in this encounter Care Teams Audio Narrator Relationship Specialty Start Date End Date Antonella Lucas PA [address] [place] [address] PCP - General Family Medicine 05/06/17 11/01/19 documented as of this encounter
--- OUTSIDE RECORDS SUMMARY | 2024-03-13 10:08 | XMS_ITS | Clinical Summary ---
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 BMS to prox. RCA, BMS to [...] year) with FIT yearly 1950 Sigmoidoscopy 1950 Hepatitis C Screening 1970 Pneumoccocal Vaccine: 65+ (1 of 2 - PCV) 06/21/1971 Tetanus/Diphtheria/Pertussis Vaccines (1 - Tdap) 06/21/1971 Zoster vaccine (1 of 2) 2002 AAA Screen 2017 Covid-19 Vaccine (1 - 2023-2 5 season) 2023 Influenza (Flu) vaccine (1 o f 1 - Influenza standard series) 11/15/2023 12/27/2018 Diabetes Screening (HgbA1C o r Glucose) Discontinued 12/26/2018, 12/24/2018, 12/23/2018, Additional history exists Medical Devices Implanted Type Area Cut Off [employer] Device Identifier Shelf Expiration Date Model / Serial / Lot Cable,Cut,Edg ,Blnt,Ss,3tpr ([id number]) - [id number] Implanted:Qty : 4 on 12/23/2018 by Louis De La O MD at [facility] IMPLANTS N/A: Chest [employer] - RTI SURGIC 07/28/2023 [id number] / [id number] / Patch,[place],Sr gl,Ptfe,15x15 cm ([id number]) - [id number] Implanted:Qty : 1 on 12/23/2018 by Louis De La O MD at [facility] IMPLANTS N/A: Chest [employer] - CR BARD 09/11/2023 [id number] / [id number] / Procedures Procedure Name Priority Date/Time Associated Diagnosis Comments HC VENIPUNCTURE Routine 12/26/2018 4:52 AM EDT from Last 3 Months or Most Recently Relevant to Health Maintenance Results * (ABNORMAL) Basic Metabolic Panel (non-fasting) (12/26/2018 4:52 AM EDT) Glucose 172 65 - 199 mg/dL [facility] Comment:Diabetes: >=200 mg/d L plus symptoms Blood Urea Nitrogen 21(H) 10 - 20 mg/dL [facility] Creatinine 1.34 0.80 - 1.50 mg/dL [facility] Sodium 133(L) 135 - 145 mmol/L [facility] Potassium 3.7 3.5 - 5.0 mmol/L [facility] Comment: Please note: ??Patients with WBC >100,000 may have falsely elevated Potassium levels. ??For accurate Potassium quantification in these patients send serum separator tube (gold top) for subsequent determinations. ??Contact the Clinical Chemistry Laboratory if there are any questions. Chloride 99 98 - 107 mmol/L [facility] Carbon Dioxide 22 22 - 31 mmol/L [facility] Anion Gap 12 5 - 15 mmol/L [facility] Calcium 8.6 8.5 - 10.5 mg/dL [facility] Est Glomerular Filtration Rate 55(L) >=60 mL/min/1. 73 m?? [facility] Comment: The eGFR was calculated using the CKD-EPI equation. As with all creatinine based estimates of kidney function, eGFR values calculated with the CKD-EPI equation are not accurate in patients with acute kidney failure, extremes of body mass or the acutely ill. http://Cloubrain/DHMCnkf eGFR 64 >=60 mL/min/1. 73 m?? [facility] Comment: The eGFR was calculated using the CKD-EPI equation. As with all creatinine based estimates of kidney function, eGFR values calculated with the CKD-EPI equation are not accurate in patients with acute kidney failure, extremes of body mass or the acutely ill. http://Cloubrain/[email or web address] Blood specimen (specimen) 12/26/2018 4:52 AM EDT 12/26/2018 5:11 AM EDT Narrative Resulting Agency Comment Spec In Lab Louis De La O MD CHEMISTRY ORDERABLE S [facility] [place] [address] from Last 3 Months or Most Recently Relevant to Health Maintenance Advance Directives Documents on File Type Date Recorded Patient Sales Attendant Expl anation Advance Directives and Samira hinojosa [...] capacity to make decision: Yes Care Teams Airplane Cleaner Relationship Specialty Start Date End Date Antonella Lucas PA [address] [place] [address] PCP - General Family Medicine 12/20/19
--- OUTSIDE RECORDS SUMMARY | 2024-03-13 10:08 | XMS_ITS | Encounter Summary ---
Author Organization [facility] Address [address] [place] [address] Care Team Providers Care Support Associate Name Role Phone Antonella Lucas PA-C Primary Care Provider + Encounter Details Date Type Department Care Team (Late st Contact Info) Description 08/08/2021 Lab Requisition [facility] Pathology & Laboratory Medicine - [address] [id number] Outr Resulting Lab, Provider Social History Tobacco [...] 11.57 See Note mg/L 08/08/2021 17:57 EDT [facility] Comment: Reference Range: ??Low Risk: ? <1.0 mg/L ??Average Risk: ?? 1.0 - 3.0 mg/L ??High Risk: ?>3.0 mg/L ??Indeterminate*: >10.0 mg/L ??*May be an indication of another source of inflammation or infection Blood VENOUS BLOOD / Unknown 08/07/2021 16:15 EDT 08/08/2021 17:31 EDT us Provider Outr Resulting Lab CHEMISTRY & BLOOD GA S ORDERABLES Final Result [facility] [address] [place] [address] documented in this encounter Visit Diagnoses Not on filedocumented in this encounter Care Teams Support Associate Relationship Specialty Start Date End Date Antonella Lucas PA-C [address] [place] [phone] PCP - General 01/28/22 documented as of this encounter
--- OUTSIDE RECORDS SUMMARY | 2024-03-13 10:08 | XMS_ITS | Referral Summary ---
Author Organization [facility] Address [address] [place] [address] Care Team Providers Care Lumber Press Operator Name Role Phone Antonella Lucas [...] file Plan of Treatment Not on file Insurance [place] Care Teams Lumber Press Operator Relationship Specialty Start Date End Date Antonella Lucas PA-C [address] [place] [phone] PCP - General 01/28/22
--- OUTSIDE RECORDS SUMMARY | 2024-03-13 10:08 | XMS_ITS | Encounter Summary ---
Author Organization [facility] [place] [address] Care Team Providers Care International Accountant Name Role Phone Lance Antonella ARRIAGA Primary Care Provider +1- [phone] Encounter Details Date Type Department Care Team (Late st Contact Info) Description 03/24/2019 Orders Only Cardiology at [address] [address] Keven Dyson, RN Research study patient Social [...] (03/24/2019 8:40 AM EST) Research Venipuncture Drawn [facility] Blood specimen (specimen) 03/24/2019 8:40 AM EST 03/24/2019 8:57 AM EST Narrative Resulting Agency Comment Spec In Lab Marlo Keith MD CHEMISTRY ORDERABL ES [facility] [place] [address] documented in this encounter Visit Diagnoses Diagnosis Research study patient Reserved for inherently not codable concepts WITHOUT codable children documented in this encounter Care Teams International Accountant Relationship Specialty Start Date End Date Antonella Lucas PA [address] [place] [address] PCP - General Family Medicine 05/06/17 11/01/19 documented as of this encounter
--- OUTSIDE RECORDS SUMMARY | 2024-03-13 10:08 | XMS_ITS | Encounter Summary ---
Author Organization [facility] [address] Care Team Providers Care Wound Nurse Name Role Phone Antonella Lucas Primary Care Provider +1- [phone] Encounter Details Date Type Department Care Team (Late st Contact Info) Description 01/18/2019 Orders Only Cardiology at [address] [address] Shavon Dorman, RN ASCVD (arteriosclerotic cardiovascular disease) [...] ORDERABLE S [facility] [place] [address] documented in this encounter Visit Diagnoses Diagnosis ASCVD (arteriosclerotic cardiovascular disease) Unspecified cardiovascular disease documented in this encounter Care Teams Wound Nurse Relationship Specialty Start Date End Date Antonella Lucas PA [address] [place] [address] PCP - General Family Medicine 05/06/17 11/01/19 documented as of this encounter
--- OUTSIDE RECORDS SUMMARY | 2024-03-13 10:08 | XMS_ITS | Encounter Summary ---
Author [place] [address] Care Team Providers Care Barrel Ribs Solderer Name Role Phone Lance Antonella ARRIAGA Primary Care Provider +1- [phone] Encounter Details Date Type Department Care Team (Latest Contact Info) Description 03/24/2019 8:30 AM EST Laboratory Appointment Lab [address] [place] [address] Research study patient Social History Tobacco Use [...] (03/24/2019 8:40 AM EST) Research Venipuncture Drawn [facility] Blood specimen (specimen) 03/24/2019 8:40 AM EST 03/24/2019 8:57 AM EST Narrative Resulting Agency Comment Spec In Lab Marlo Keith MD CHEMISTRY ORDERABL ES [facility] [place] [address] documented in this encounter Visit Diagnoses Diagnosis Research study patient Reserved for inherently not codable concepts WITHOUT codable children documented in this encounter Care Teams Barrel Ribs Solderer Relationship Specialty Start Date End Date Antonella Lucas PA [address] [place] [address] PCP - General Family Medicine 05/06/17 11/01/19 documented as of this encounter
--- OUTSIDE RECORDS SUMMARY | 2024-03-13 10:08 | XMS_ITS | Encounter Summary ---
Author Organization [facility] Address [address] [place] [address] Care Team Providers Care Foil Wrapper Name Role Phone Antonella Lucas PA-C Primary Care Provider + Encounter Details Date Type Department Care Team (Late st Contact Info) Description 05/15/[address] [facility] Pathology & Laboratory Medicine - [address] [phone] Outr Resulting Lab, Provider Social History Tobacco [...] IgE 47 <158 IU/mL 05/17/2021 9:48 EST [facility] Blood VENOUS BLOOD / Unknown 05/15/2021 6:50 EST 05/15/2021 16:44 EST us Provider Outr Resulting Lab CHEMISTRY & BLOOD GA S ORDERABLES Final Result [facility] [address] [place] [address] documented in this encounter Visit Diagnoses Not on filedocumented in this encounter Care Teams Foil Wrapper Relationship Specialty Start Date End Date Antonella Lucas PA-C [address] [place] [phone] PCP - General 01/28/22 documented as of this encounter
--- OUTSIDE RECORDS SUMMARY | 2024-03-13 10:08 | XMS_ITS | Encounter Summary ---
[place] [address] Care Team Providers Care It Systems Administrator Name Role Phone Antonella Lucas Primary Care Provider +1- [phone] Encounter Details Date Type Department Care Team (Late st Contact Info) Description 03/22/2019 1:00 PM EST Office [place] [address] Louis De La O MD S/P CABG [...] PM EST Cardiac Surgery Clinic Note: ID: [id number] Cardiac Surgery Attending: Dr. De La O [...] Dr. De La O. Signed: BART [facility] Section of Cardiac Surgery 03/22/2019 documented in this encounter Plan of Treatment Not on file documented as of this encounter Visit Diagnoses Diagnosis S/P CABG x 2 Postsurgical aortocoronary bypass status documented in this encounter Care Teams It Systems Administrator Relationship Specialty Start Date End Date Antonella Lucas PA [address] [place] [address] PCP - General Family Medicine 05/06/17 11/01/19 documented as of this encounter
--- OUTSIDE RECORDS SUMMARY | 2024-03-13 10:08 | XMS_ITS | Encounter Summary ---
Author Organization [facility] [place] [address] Care Team Providers Care Underwear Finisher Name Role Phone Antonella Lucas Primary Care Provider +1- [phone] Encounter Details Date Type Department Care Team (Latest Contact Info) Description 12/20/2019 8:00 AM EDT Laboratory Appointment Cardiology at [address] [phone] Research study patient Social History Tobacco Use [...] ORDERABL ES [facility] [place] [address] documented in this encounter Visit Diagnoses Diagnosis Research study patient Reserved for inherently not codable concepts WITHOUT codable children documented in this encounter Care Teams Underwear Finisher Relationship Specialty Start Date End Date Antonella Lucas PA [address] [place] [address] PCP - General Family Medicine 12/20/19 documented as of this encounter
--- OUTSIDE RECORDS SUMMARY | 2024-03-13 10:08 | XMS_ITS | Encounter Summary ---
Author Organization [facility] [place] [address] Care Team Providers Care Oil Analyst Name Role Phone Unknown Primary Care Provider Unavailabl e Encounter Details Date Type Department Care Team (Late st Contact Info) Description 12/13/2019 Orders Only Cardiology at [address] [phone] Shavon Dorman, RN Research study patient Social [...] (12/20/2019 8:20 AM EDT) Research Venipuncture Drawn [facility] Blood specimen (specimen) 12/20/2019 8:20 AM EDT 12/20/2019 8:37 AM EDT Narrative Resulting Agency Comment Spec In Lab Marlo Keith MD CHEMISTRY ORDERABL ES [facility] [place] [address] documented in this encounter Visit Diagnoses Diagnosis Research study patient Reserved for inherently not codable concepts WITHOUT codable children documented in this encounter Care Teams Oil Analyst Relationship Specialty Start Date End Date Unknown None PCP - General 11/02/19 12/19/19 documented as of this encounter
--- OUTSIDE RECORDS SUMMARY | 2024-03-13 10:08 | XMS_ITS | Encounter Summary ---
Author Organization [facility] Address [address] [place] [address] Care Team Providers Care Pillowcase Turner Name Role Phone Antonella Lucas PA-C Primary Care Provider + Encounter Details Date Type Department Care Team (Late st Contact Info) Description 04/24/2020 Lab Requisition [facility] Pathology & Laboratory Medicine - [address] [id number] Outr Resulting Lab, Provider Social History Tobacco [...] Unknown 04/24/2020 8:15 EST 04/24/2020 21:53 EST us Provider Outr Resulting Lab MICROBIOLOGY - GENER AL ORDERABLES Final Result [facility] [address] [place] [address] * (ABNORMAL) COVID-19 TESTING (04/24/2020 8:15 EST) COVID-19 rt-PCR Result Positive( AA) Negative 04/25/2020 17:[address] [facility] Comment: This test has [...] developed and its performance characteristics determined by [facility]. It has not been cleared or [...] testing. This test is based on the [facility] COVID-19 Emergency Use Authorization (EUA) assay, with minor modification as defined by the FDA Performed on the [employer] 7 Flex RT-PCR System. Performing Lab [facility] 04/25/2020 17:[address] [facility] Swab 04/24/2020 8:15 EST 04/24/2020 21:53 EST us Provider Outr Resulting Lab MICROBIOLOGY - GENER AL ORDERABLES Final Result Performing Organization Address City/[facility]/ZIP Co de Phone Number [facility] [address] [place] [address] documented in this encounter Visit Diagnoses Not on filedocumented in this encounter Additional Health Concerns Infection Onset Date Last Indicated Resolved Time COVID-19 04/24/2020 04/24/2020 05/24/2020 22:1 5 EST documented as of this encounter Care Teams Pillowcase Turner Relationship Specialty Start Date End Date Antonella Lucas PA-C [address] [place] [phone] PCP - General 01/28/22 documented as of this encounter
--- OUTSIDE RECORDS SUMMARY | 2024-03-13 10:08 | XMS_ITS | Encounter Summary ---
[place] [address] Care Team Providers Care Greenbelt Name Role Phone Antonella Lucas Primary Care Provider +1- [phone] Encounter Details Date Type Department Care Team (Latest Contact Info) Description 01/25/2019 12:00 PM EST Laboratory Appointment Lab [address] [place] [address] ASCVD (arteriosclerotic cardiovascular disease) Social History Tobacco [...] MD CHEMISTRY ORDERABLE S Performing Organization Address City/State/[facility] Co de Phone Number [facility] [place] [address] documented in this encounter Visit Diagnoses Diagnosis ASCVD (arteriosclerotic cardiovascular disease) Unspecified cardiovascular disease documented in this encounter Care Teams Greenbelt Relationship Specialty Start Date End Date Antonella Lucas PA [address] [place] [address] PCP - General Family Medicine 05/06/17 11/01/19 documented as of this encounter
--- OUTSIDE RECORDS SUMMARY | 2024-03-13 10:08 | XMS_ITS | Encounter Summary ---
[place] [address] Care Team Providers Care Greenhouse Technician Name Role Phone Tejas Johnson Primary Care Provider +1- [phone] Encounter Details Date Type Department Care Team (Late st Contact Info) Description 01/25/2019 1:40 PM EST Office Visit [place]iac [place] [address] Louis De La O MD S/P CABG [...] Post-OP Note: BART Miller [address] [place] [address] TEJAS JOHNSON Mr. Gamboa returns to clinic [...] Coronary artery disease inferior STEMI [facility] 02/23/09: proximal RCA, GARNETTER LAD. BMS to prox. RCA, BMS to [...] MD at [facility] Outpatient Medications Marked as [...] (Bezet) 420 ms MUSE SYSTEM Calculated P [place] 57 degrees MUSE SYSTEM Calculated R [place] 6 degrees MUSE SYSTEM Calculated T [place] 144 degrees MUSE SYSTEM INTERPRETATION Sinus rhythm [...] status documented in this encounter Care Teams Greenhouse Technician Relationship Specialty Start Date End Date Tejas Johnson PA [address] [place] [address] PCP - General Family Medicine 05/06/17 11/01/19 documented as of this encounter
--- OUTSIDE RECORDS SUMMARY | 2024-03-13 10:08 | XMS_ITS | Encounter Summary ---
Author Organization [facility] [place] [address] Care Team Providers Care Real Estate Leasing Manager Name Role Phone Lance Cathiedayna Luly ARRIAGA Primary Care Provider +1- [phone] Encounter Details Date Type Department Care Team (Latest Contact Info) Description 03/24/2019 Unscheduled Encounter Cardiology at [address] [phone] Keven Dyson, RN Research study patient Social [...] as pat of his participation in the [id number] trial. All protocol driven labs were collected [...] children documented in this encounter Care Teams Real Estate Leasing Manager Relationship Specialty Start Date End Date Antonella Lucas PA [address] [place] [address] PCP - General Family Medicine 05/06/17 11/01/19 documented as of this encounter
--- OUTSIDE RECORDS SUMMARY | 2024-03-13 10:08 | XMS_ITS | Encounter Summary ---
Author Organization [facility] [place] [address] Care Team Providers Care Restaurant Area Director Name Role Phone Antonella Lucas Primary Care Provider +1- [phone] Encounter Details Date Type Department Care Team (Late st Contact Info) Description 12/27/2018 Notes Only [place] [address] Elva Connelly Social History Tobacco Use Types [...] week and will follow up with tobacco vascular specialists then. documented in this encounter Plan of Treatment Not on file documented as of this encounter Visit Diagnoses Not on filedocumented in this encounter Care Teams Restaurant Area Director Relationship Specialty Start Date End Date Antonella Lucas PA [address] [place] [address] PCP - General Family Medicine 05/06/17 11/01/19 documented as of this encounter
--- OUTSIDE RECORDS SUMMARY | 2024-03-13 10:08 | XMS_ITS | Encounter Summary ---
Author Organization [facility] Address [address] [place] [address] Care Team Providers Care Director Of Math Name Role Phone Antonella Lucas PA-C Primary Care Provider + Reason for Visit * Reason Comments Eye Problem * Prior Authorization (Routine) - Authorized Specialty Diagnoses / Procedures Referred By Nataliia hurt Referred To Contact Diagnoses CRVO (central retinal vein occlusion) Procedures UT INJECT INTRAVITREAL PHARMCOLOGIC UT AFLIBERCEPT INJECTION UT BEVACIZUMAB INJECTION [address] [address] Phone: tel: fax: [address] [address] Phone: tel: fax: Referral ID Status Reason Start Date Expiration Date V isits Requested Visits Authorized [id number] Authorized 2 2 Encounter Details Date Type Department Care Team (Late st Contact Info) Description 06/13/2022 13:15 EDT Office Visit [address] [address] Shaquille Vasquez MD [address] [place] [address], [address] [place] [phone] Social History Tobacco Use Types Packs/Day Years [...] Comments Referred by Stacey Mitchell OD of [facility] for impending CRVO left eye and NPDR [...] 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 Emily Mckenna, RONA (Scribe) documented in this encounter Plan of Treatment Not on file documented as of this encounter Procedures Procedure Name Priority Date/Time Associated Diagnosis Comments OCT, RETINA - OU - BOTH EYES Routine 06/13/2022 15:02 EDT Intermediate stage nonexudative age-related macular degeneration of both eyes documented in this encounter Results * OCT, RETINA - OU - BOTH EYES (06/13/2022 15:02 EDT) Narrative [facility] OPHTHALMOLOGY - 06/13/2022 15:02 EDT Right Eye Quality was good. Progression has no prior data. Findings include normal foveal contour. Left Eye Quality was good. Progression has no prior data. Findings include normal foveal contour. 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 allopurinoL (ZYLOPRIM) 100 mg tablet Take 100 [...] heme superior quadrant Care Teams Director Of Math Relationship Specialty Start Date End Date Antonella Lucas PA-C [address] [place] [phone] PCP - General 01/28/22 documented as of this encounter
--- OUTSIDE RECORDS SUMMARY | 2024-03-13 10:08 | XMS_ITS | Encounter Summary ---
Author Organization [facility] [place] [address] Care Team Providers Care Change Person Name Role Phone Antonella Lucas Primary Care Provider +1- [phone] Encounter Details Date Type Department Care Team (Late st Contact Info) Description 12/20/2019 8:00 AM EDT Office Visit Cardiology at [address] [address] Shavon Dorman RN Research study patient Social [...] INJURY (DANIELA) FOLLOWING CARDIAC SURGERY STUDY NUMBER: [id number] [id number] Phase 3 for Prevention of MAKE in Subjects at High Risk for DANIELA Following Cardiac Surgery Principle Battalion Chief: Marlo Keith MD, MS I had the pleasure of meeting with Bear Gamboa in the clinic today. The purpose of the visit isin follow up at the 1 year time-point for participation in the [id number] clinical trial. Ongoing adverse events and interim [...] the end of their participation in the [id number] clinical trial. Current Outpatient Medications: ??? levothyroxine [...] kg/m?? Central Labs: drawn and sent to [facility] for processing/shipping. documented in this encounter Plan of Treatment Not on file documented as of this encounter Visit Diagnoses Diagnosis Research study patient Reserved for inherently not codable concepts WITHOUT codable children documented in this encounter Care Teams Change Person Relationship Specialty Start Date End Date Antonella Lucas PA [address] [place] [address] PCP - General Family Medicine 12/20/19 documented as of this encounter
--- OUTSIDE RECORDS SUMMARY | 2024-03-13 10:08 | XMS_ITS | Encounter Summary ---
Author Organization [place] [address] Care Team Providers Care Sports Equipment Supervisor Name Role Phone Antonella Lucas Primary Care Provider +1- [phone] Encounter Details Date Type Department Care Team (Late st Contact Info) Description 02/22/2019 12:00 PM EST Office Visit Cardiology at [address] [address] Shavon Dorman RN Research study patient Social [...] INJURY (DANIELA) FOLLOWING CARDIAC SURGERY STUDY Name: [id number] [id number] Phase 3 for Prevention of MAKE in Subjects at High Risk for DANIELA Following Cardiac Surgery Principle Scientist Propagator: Marlo Keith MD, MS I had the pleasure of meeting with Bear Rosangela Gamboa in the clinic today. The purpose of the visit isin follow up at the 60 time-point for participation in the [id number] clinical trial. Ongoing adverse events and interim [...] 18 Central Labs: drawn and sent to [facility] for processing/shipping. documented in this encounter Plan of Treatment Not on file documented as of this encounter Visit Diagnoses Diagnosis Research study patient Reserved for inherently not codable concepts WITHOUT codable children documented in this encounter Care Teams Sports Equipment Supervisor Relationship Specialty Start Date End Date Antonella Lucas PA [address] [place] [address] PCP - General Family Medicine 05/06/17 11/01/19 documented as of this encounter
--- OUTSIDE RECORDS SUMMARY | 2024-03-13 10:09 | XMS_ITS | Encounter Summary ---
Author Organization [facility] Address [facility] [place] [address] Care Team Providers Care Billet Straightener Name Role Phone Antonella Lucas Primary Care Provider +1- [phone] Reason for Visit * Auth/Cert Specialty Diagnoses [...] Expiration Date Visits Re quested Visits Authorized [id number] 1 1 Encounter Details Date Type Department Care Team ([facility] Contact Info) Description 12/21/2018 9:40 AM EDT Clinical [place] [address] Social History Tobacco Use Types Packs/Day Years [...] on filedocumented in this encounter Care Teams Billet Straightener Relationship Specialty Start Date End Date Antonella Lucas PA [address] [place] [address] PCP - General Family Medicine 05/06/17 11/01/19 documented as of this encounter
--- OUTSIDE RECORDS SUMMARY | 2024-03-13 10:09 | XMS_ITS | Encounter Summary ---
Author Organization [facility] Address [facility] [place] [address] Care Team Providers Care Occupational Analyst Name Role Phone Lance Antonella ARRIAGA Primary Care Provider [phone] Reason for Referral * Consultation (Routine) - Specialty Diagnoses / Procedures Referred By Contac t Referred To Contact Cardiac Rehabilitation Diagnoses S/P CABG x 2 Louis De La O MD [facility] [place] [address] Referral ID Status Reason Start Date Expiration Date V isits Requested Visits Authorized [id number] Consult, Test & Treat 12/27/2018 06/25/2019 36 36 * Diagnostic Test (Routine) - Closed Specialty Diagnoses / Procedures Referred By Contac t Referred To Contact Radiology Diagnoses S/P CABG x [address] Chest wo Contrast (Generic) Luz Myles [place] [id number] [facility] [place] [address] Referral ID Status Reason Start Date Expiration Date V isits Requested Visits Authorized [id number] Closed Specialty Service Requested 12/27/2018 12/27/2019 1 [...] Expiration Date Visits Re quested Visits Authorized [id number] 1 1 Encounter Details Date Type Department Care Team (Latest Contact Info) Description 12/23/2018 5:43 AM EDT - 12/27/2018 2:03 PM EDT Hospital Encounter Intermediate [place] [id number] Louis De La O MD CKD (chronic kidney disease) stage 4, GFR 15-29 ml/min; ASCVD (arteriosclerotic cardiovascular disease); 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 Birthdate: 1950 Language: Barbadian Race: White Ethnicity: Not nor Admit Date: [...] study as scheduled. Inpatient Provider Contact Information: [facility] Section of Cardiac Surgery [facility] [address] FAX [phone] Discharge Diagnoses (Hospital Problems) Primary Diagnoses: CAD [...] by Louis De La O MD at [facility] MAIN OR ??? PRO CABG, ARTERY-VEIN, SINGLE N/A 12/23/2018 @CABG, VENOUS & ARTERIAL GRAFT;SINGLE VEIN GRAFT (WRVU 3.61) performed by Louis De La O MD at [facility] MAIN OR ??? PRO ENDOSCOPY W/VIDEO-ASST VEIN HARVEST, CABG N/A 12/23/2018 ENDOSCOPIC HARVEST VEIN(S) FOR CABG (WRVU 0.31) performed by Louis De La O MD at [facility] MAIN OR Prior To Admission Medications No [...] s/p CABGx2 Bear Gamboa was admitted to [facility] on 12/23/2018 via the Same Day [...] La O and/or the Cardiac Surgery Physician Client Services Associate Team may be reached at . Weight: [...] Dr. Louis Boston. You may use a Lazear Track or treadmill but avoid any pulling [...] friends, go to a movie, go to muslim, etc. Heavy activities: No hunting, skiing, jogging, snow shoveling, snowmobiling, lawn mowing, swimming,golf or tennis until after your return appointment with the surgeon. Do not ride motorcycles, ATNeventum'stractors or horses. Avoid the use of a [...] should resume a low fat, low cholesterol, [place] Heart Association Diet/Diabetic diet. Driving: No driving [...] the outpatient Phase 2 Cardiac Rehabilitation at [facility] . The patient agrees to a referral to this program. The referral will be sent at discharge and the patient should be contacted by the Program within 1- 2 weeks from discharge. 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 Other pertinent information: Stat read required?: Does patient require sedation?: GA rationale: Date of injury if applicable: Requested Time: EKG 12 Lead [56227 CPT(R)] 01/27/2019 (Approximate) 07/29/2019 Process Instructions: Scheduling Instructions: Questions: Which DH location will this be performed?: [place] Is a rhythm strip needed?: No XR Chest PA & Lateral (Generic) [91533 [id number] Custom] 01/27/2019 (Approximate) 07/29/2019 Process Instructions: Scheduling Instructions: Questions: Where will study be performed?: [facility] Radiology Portable exam?: Reason for exam and clinical history: s/p CABG Other pertinent information: Stat read required?: Date of injury if applicable: Requested Time: Referral to Cardiac Rehab [QDB932 Custom] As directed Process Instructions: If no progress note charted, please enter Clinical details in comments. Scheduling Instructions: Questions: My question or request is: Pt will participate in cardiac rehab@ [facility] Referral to Home Health - at DISCHARGE [XOU6239 CPT(R)] As directed Process Instructions: Scheduling Instructions: Comments: DOCUMENTATION FOR VNA SERVICES (INCLUDING THOSE PATIENTS WITH MEDICARE COVERAGE REQUIRING HOME VNA SERVICES AND/OR HOSPICE SERVICES) PATIENT'S LOCATION: Bear Gamboa [address] [place] [address] [address] [facility] [address] Assistant Foreman's Name: india Pichardo In discussion with the attending physician, it is certified that this patient is under their care and that they, or a Nurse Practitioner, or Physician Client Services Associate who is working directly with them, hada [...] for services as follows: HOME HEALTH AGENCY: [facility] PHONE: [phone] FAX: [phone] RN orders: Cardiopulmonary assessment, incisional assessment, assess [...] issues please call the Cardiac SurgeryOffice at [phone] FOR MEDICARE ONLY: (please delete this section [...] Agency name and contact information: [facility] Patient location post discharge: home What services are requested: Registered Nurse Physical Therapy Start date: Responsible MD post discharge contact info: PCP Arrangements for VNA/home care: As above. VN RN OR PCP TO PLEASE REMOVE CHEST TUBE SUTURES ON OR AFTER 01/02/19 Signed: BART James [facility] Section of Cardiac Surgery [facility] [address] FAX [phone] Date: 12/27/2018 CC: BART Miller Anil K, MD [address] [place] [phone] documented in this encounter Discharge Instructions * [...] La O and/or the Cardiac Surgery Physician Client Services Associate Team may be reached at . ?? [...] Dr. Louis Boston. You may use a Lazear Track or treadmill but avoid any pulling [...] friends, go to a movie, go to muslim, etc. ?? Heavy activities: No hunting, skiing, jogging, snow shoveling, snowmobiling, lawn mowing, swimming,golf or tennis until after your return appointment with the surgeon. Do not ride motorcycles, ATNeventum'stractors or horses. Avoid the use of a [...] should resume a low fat, low cholesterol, [place] Heart Association Diet/Diabetic diet. ?? Driving: No [...] the outpatient Phase 2 Cardiac Rehabilitation at [facility]??Hospital . ?? The patient agrees to a referral to this program.? The referral will be sent at discharge and the patient should be contacted by the Program within 1- 2 weeks from discharge. * Attachments The following attachments cannot be sent through Care Everywhere. * Smoking: Stopping (Barbadian) * Smoking Cessation: Health Benefits: General Info (Barbadian) documented in this encounter Medications at Time [...] oz) -- Weight Source Standing Scale -- [id number]: Mr. Gamboa is progressing well and is expected to be discharged today. Central labs were drawn and sent to [facility] for processing/shipping. He was asked some clarifying [...] facility Urine Output (mL) [phone] [id number] study: the above documents Mr. Gamboa's urine output from arrival to [facility] to over 24 hourspost study medication [...] oz) -- Weight Source Standing Scale -- [id number] study: Central labs were drawn and sent to [facility] for processing/shipping. * Shavon Dunne RN - [...] of chest tube output as required by PDD888 study. * Aidan Valenzuela PA - 12/24/2018 [...] Central labs were drawn and sent to [facility] for processing/shipping. * Aidan Valenzuela PA - [...] INJURY (DANIELA) FOLLOWING CARDIAC SURGERY STUDY NUMBER: [id number] Phase 3 for Prevention of MAKE in Subjects at High Risk for DANIELA Following Cardiac Surgery Principle Staff Educator: Marlo Keith MD, MS Following informed consent and confirmation that the subject met all inclusion criteria and that noexclusion criteria were met, the subject was randomized via [employer] GARCIA per protocol. Subject eligibility, hemodynamic stability, [...] oxyCODONE Central labs: drawn and sent to [facility] for processing/shipping * Shavon Dunne RN - [...] The above represents baseline/Day-1 data for the APD809 study; data collected in SDP prior to [...] [facility] now had a positive stress [...] - Coronary artery disease ? inferior [facility] 02/23/09: proximal RCA, [employer] L[employer]. BMS to prox. RCA, BMS to [...] None ? Gets together: None ? Attends spiritism service: None ? Active member of club [...] sm[facility] and now had a positive stress [...] - Coronary artery disease ? inferior [facility] 02/23/09: proximal RCA, [employer] COMM[employer]IONER LAD. BMS to prox. RCA, BMS to [...] None ? Gets together: None ? Attends spiritism service: None ? Active member of club [...] Smyth RN - 12/27/2018 10:50 AM EDT [facility] Bear Gamboa was seen today regarding participation in the outpatient Phase 2 Cardiac Rehabilitation at [facility] . The patient agrees to a [...] by Louis De La O MD at [facility] MAIN OR ??? PRO CABG, ARTERY-VEIN, SINGLE N/A 12/23/2018 @CABG, VENOUS & ARTERIAL GRAFT;SINGLE VEIN GRAFT (WRVU 3.61) performed by Louis De La O MD at [facility] MAIN OR ??? PRO ENDOSCOPY W/VIDEO-ASST VEIN HARVEST, CABG N/A 12/23/2018 ENDOSCOPIC HARVEST VEIN(S) FOR CABG (WRVU 0.31) performed by Louis De La O MD at [facility] MAIN OR Social History: Home set-up: lives [...] outlinedin this evaluation. Time IN / OUT: 4101-3025 Total Evaluation Minutes, Physical Therapy: 15(eval) Jazmin Aleman, PT, DPT Pager: [phone] Physical Therapy Inpatient Rehabilitation Department * Plan [...] CPG). Outcome: Ongoing (Interventions Implemented as Appropriate) 10/11/19 1933 Cardiac Surgery Problems Assessed (Cardiac Surgery) [...] sleep * Initial Assessments - Jazmin Jose, RN - 12/23/2018 3:31 PM EDT Office of Care Management Initial Assessment Jazmin Jose, MARTIN reviewed record and discussed patient with Care [...] Hospitalizations Within the Past 30 Days: no [facility] admits in last 30 days. Anticipated Length Of Stay (If known): 5-7 days Current Decision-Making Capacity: Patient is A&Ox4 and able to make all medical decisions Advance Care Planning: Full Code Not in EPIC. Would like to complete during this hospitalization, PROJECT SPECIALIST notified Current Coping/Education/Information Needs: Current coping questions and concerns have been addressed. Current Functional Ability: assist of staff Functional Status Prior to Admission: independent with ADLs, driving, works part-time. Home Environment: lives in 3 level house, stays mainly on 1st level.Has bedroom and bathroom on first level. 3 steps to enter no railings [address] [facility] [address] Social & Family Supports/Community Resources: lives alone. [...] N/AMedicaid [place] Prescription Coverage: Yes Preferred Pharmacy: [facility] - [place], [place] - [address] AT Portal to [facility] [employer] [address] [facility] [address] [id number] [place] - [address] [place] [address] [address] [facility] [address] [place] [phone] Other: none Primary Care Provider: BART Miller [phone] Patient/Caregiver Goals of Treatment: return to previous level of function Potential Needs for Transition of Care: Discussed with patient and family levels of rehab includingSNF, swing, acute and VNA home health and hospice care also discussed. Discussed need to accept first bed available when patient is medically ready. Rehab/SNF: TBD Home Health: [facility] pended for RN/PT DME: [employer]bnilay Transportation: car by india Pichardo Other: none Anticipated Barriers to Discharge/Special Considerations: none vs anticipated barriers to arise as hospitalization continues. Assessment: patient is admitted to CT service for CABG, final discharge disposition tbd by hospitalcourse and PT evaluation, VNA referral pended for RN/PT. The patient/pharmacy sales representative has been provided a list of Home Health Agencies/DME vendors which servetheir preferred geographic area. A letter describing our affiliations was reviewed with them and they were educated about their right to choose where referrals are placed. Patient requests referral to [facility]. PHONE: [phone] FAX: [phone] Expected date of discharge: TBD Referral routed to the Voice Over Announcer for matching with agency/vendor and to provide any required information. Plan: A member of the Care Management team will continue to monitor progress, follow for continuityof care and assist with transition of care planning. Jazmin Jose, RN Nurse Chief Program Officer Pager [phone] * OR Attestation - Louis De La O MD - 12/23/2018 2:03 PM EDT Attestation: Case Date: 12/23/2018 I performed this procedure without the involvement of a resident. Louis De La O MD 12/28/2018 * Op Note - Louis De La O MD - 12/23/2018 2:03 PM EDT 12/28/2018 Bear Gamboa 1950 [id number] Preoperative Diagnosis: Coronary artery disease Stable Angina [...] the medial aspect of the knee. The SuperDimension XB7 system was used to dissect out [...] divided marrow of the sternum. The left emhrdad-sternum was elevated. 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, unspecified vessel or lesion type Cabg, Arterial, Single ([id number]) 12/23/2018 7:31 AM EDT 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, unspecified vessel [...] (Bezet) 420 ms MUSE SYSTEM Calculated P Anderson 57 degrees MUSE SYSTEM Calculated R Anderson 6 degrees MUSE SYSTEM Calculated T Anderson 144 degrees MUSE SYSTEM INTERPRETATION Sinus rhythm [...] Glucose, POC 185 65 - 199 mg/dL [facility] Comment: Supplemental ranges: <140 mg/dL before meals <180 mg/dL all other times of the day Blood specimen (specimen) 12/27/2018 11:47 AM EDT 12/27/2018 11:47 AM EDT oLuis De La O MD POINT OF CARE TEST ORDERABLES Performing Organization Address [facility] Co de Phone Number [facility] [place] [address] * POCT Glucose (12/27/2018 7:37 AM EDT) Glucose, POC 163 65 - 199 mg/dL [facility] Comment: Supplemental ranges: <140 mg/dL before meals <180 mg/dL all other times of the day Blood specimen (specimen) 12/27/2018 7:37 AM EDT 12/27/2018 7:37 AM EDT Louis De La O MD POINT OF CARE TEST ORDERABLES Performing Organization Address [facility] de Phone Number [facility] [place] [address] * Potassium (12/27/2018 4:57 AM EDT) Potassium 3.9 3.5 - 5.0 mmol/L [facility] Comment: Please note: ??Patients with [...] MD CHEMISTRY ORDERABLE S Performing Organization Address [facility] Co de Phone Number [facility] [place] [address] * POCT Glucose (12/26/2018 4:44 PM EDT) Glucose, POC 170 65 - 199 mg/dL [facility] Comment: Supplemental ranges: <140 mg/dL before meals <180 mg/dL all other times of the day Blood specimen (specimen) 12/26/2018 4:44 PM EDT 12/26/2018 4:44 PM EDT Louis De La O MD POINT OF CARE TEST ORDERABLES [facility] [place] [address] * XR Chest PA & Lateral (Generic) [...] Glucose, POC 221(H) 65 - 199 mg/dL [facility] Comment: Supplemental ranges: <140 mg/dL before meals <180 mg/dL all other times of the day Blood specimen (specimen) 12/26/2018 11:57 AM EDT 12/26/2018 11:57 AM EDT Louis De La O MD POINT OF CARE TEST ORDERABLES [facility] [place] [address] * POCT Glucose (12/26/2018 8:00 AM EDT) Glucose, POC 159 65 - 199 mg/dL [facility] Comment: Supplemental ranges: <140 mg/dL before meals <180 mg/dL all other times of the day Blood specimen (specimen) 12/26/2018 8:00 AM EDT 12/26/2018 8:00 AM EDT Louis De La O MD POINT OF CARE TEST ORDERABLES [facility] [place] [address] * (ABNORMAL) Differential, Automated (12/26/2018 4:52 AM EDT) [facility] Neutrophil % 84.5 % [facility] Neutrophil Absolute 16.12(H) 1.70 - 6.10 x10(3)/mc L [facility] Lymph % 5.2 % [facility] Lymphocytes Abs 1.0 0.9 - 3.2 x10(3)/mc L [facility] Monocyte % 8.8 % [facility] Monocyte Abs 1.7(H) 0.3 - 0.9 x10(3)/mc L [facility] Eos % 0.2 % [facility] Eosinophils Abs 0.0 0.0 - 0.4 x10(3)/mc L [facility] Basophil % 0.3 % [facility] Baso Absolute 0.1 0.0 - 0.1 x10(3)/mc L [facility] Immature Gran % 1.00 % [facility] Comment: Immature granulocytes(IG's)percentage and absolute count will include metamyelocytes, myelocytes, and promyelocytes. Blood smears from CBCs yielding IG's will be scanned manually for concordance. If this scan disagrees with the automated IG or if promyelocytes are noted, a manual differential will be performed. Immature Gran Absolute 0.19(H) 0.00 - 0.04 x10(3)/mc L [facility] Blood specimen (specimen) 12/26/2018 4:52 AM EDT 12/26/2018 5:11 AM EDT Narrative Resulting Agency Comment Spec In Lab Aidan ARRIAGA HEMATOLOGY ORDERABLE S [facility] [place] [address] * (ABNORMAL) Hemogram (12/26/2018 4:52 AM EDT) White Blood Cell 19.1(H) 4.0 - 9.5 x10(3)/ L [facility] Red Blood Cell 4.38(L) 4.58 - 5.54 x10(6)/[facility] Hemoglobin 13.0(L) 13.7 - 16.5 gm/dL [facility] Hematocrit 40.0(L) 40.5 - 48.5 % [facility] Mean Cell Volume 91.3 82.9 - 93.1 fL [facility] Mean Cell Hemoglobin 29.7 27.5 - 32.1 pg [facility] Mean Cell Hemoglobin Concentration 32.5 32.0 - 35.7 gm/dL [facility] Platelet 171 145 - 357 x10(3)/[facility] RDW Standard Deviation 46.0(H) 36.0 - 45.0 [facility] RDW coefficient of variation 13.5 11.4 - 13.8 % [facility] Mean Platelet Volume 9.8 7.6 - 12.9 fL [facility] NRBC% auto 0.0 % [facility] NRBC Absolute 0.000 0.000 - 0.000 x10(3)/ L [facility] Blood specimen (specimen) 12/26/2018 4:52 AM EDT 12/26/2018 5:11 AM EDT Narrative Resulting Agency Comment Spec In Lab Aidan ARRIAGA HEMATOLOGY ORDERABLE S [facility] [place] [address] * (ABNORMAL) Basic Metabolic Panel (non-fasting) (12/26/2018 4:52 AM EDT) Glucose 172 65 - 199 mg/dL [facility] Comment:Diabetes: >=200 mg/d L plus symptoms Blood Urea Nitrogen 21(H) 10 - 20 mg/dL [facility] Creatinine 1.34 0.80 - 1.50 mg/dL [facility] Sodium 133(L) 135 - 145 mmol/L [facility] Potassium 3.7 3.5 - 5.0 mmol/L [facility] Comment: Please note: ??Patients with WBC >100,000 may have falsely elevated Potassium levels. ??For accurate Potassium quantification in these patients send serum separator tube (gold top) for subsequent determinations. ??Contact the Clinical Chemistry Laboratory if there are any questions. Chloride 99 98 - 107 mmol/L [facility] Carbon Dioxide 22 22 - 31 mmol/L [facility] Anion Gap 12 5 - 15 mmol/L [facility] Calcium 8.6 8.5 - 10.5 mg/dL [facility] Est Glomerular Filtration Rate 55(L) >=60 mL/min/1. 73 m?? [facility] Comment: The eGFR was calculated using the CKD-EPI equation. As with all creatinine based estimates of kidney function, eGFR values calculated with the CKD-EPI equation are not accurate in patients with acute kidney failure, extremes of body mass or the acutely ill. http://Alitalia/DHMCnkf eGFR 64 >=60 mL/min/1. 73 m?? [facility] Comment: The eGFR was calculated using the CKD-EPI equation. As with all creatinine based estimates of kidney function, eGFR values calculated with the CKD-EPI equation are not accurate in patients with acute kidney failure, extremes of body mass or the acutely ill. http://DataSphere.Signal Patterns/DHMCnkf Blood specimen (specimen) 12/26/2018 4:52 AM EDT 12/26/2018 5:11 AM EDT Narrative Resulting Agency Comment Spec In Lab Louis De La O MD CHEMISTRY ORDERABLE S Performing Organization Address City/[facility]/ZIP Co de Phone Number [facility] [place] [address] * (ABNORMAL) POCT Glucose (12/25/2018 7:55 PM EDT) Glucose, POC 217(H) 65 - 199 mg/dL [facility] Comment: Supplemental ranges: <140 mg/dL before meals <180 mg/dL all other times of the day Blood specimen (specimen) 12/25/2018 7:55 PM EDT 12/25/2018 7:55 PM EDT Louis De La O MD POINT OF CARE TEST ORDERABLES Performing Organization Address [facility] Co de Phone Number [facility] [place] [address] * POCT Glucose (12/25/2018 3:35 PM EDT) Glucose, POC 170 65 - 199 mg/dL [facility] Comment: Supplemental ranges: <140 mg/dL before meals <180 mg/dL all other times of the day Blood specimen (specimen) 12/25/2018 3:35 PM EDT 12/25/2018 3:35 PM EDT Louis De La O MD POINT OF CARE TEST ORDERABLES Performing Organization Address [facility] Co de Phone Number [facility] [place] [address] * POCT Glucose (12/25/2018 11:21 AM EDT) Glucose, POC 196 65 - 199 mg/dL [facility] Comment: Supplemental ranges: <140 mg/dL before meals <180 mg/dL all other times of the day Blood specimen (specimen) 12/25/2018 11:21 AM EDT 12/25/2018 11:21 AM EDT Louis De La O MD POINT OF CARE TEST ORDERABLES Performing Organization Address City/[facility]/ZIP Co de Phone Number [facility] [place] [place] [address] * POCT Glucose (12/25/2018 7:50 AM EDT) Glucose, POC 164 65 - 199 mg/dL [facility] Comment: Supplemental ranges: <140 mg/dL before meals <180 mg/dL all other times of the day Blood specimen (specimen) 12/25/2018 7:50 AM EDT 12/25/2018 7:50 AM EDT Louis De La O MD POINT OF CARE TEST ORDERABLES Performing Organization Address [facility]/ZIP Co de Phone Number [facility] [place] [address] * Potassium (12/25/2018 5:41 AM EDT) Potassium 4.1 3.5 - 5.0 mmol/L [facility] Comment: Please note: ??Patients with [...] MD CHEMISTRY ORDERABLE S Performing Organization Address City/[facility]/ZIP Co de Phone Number [facility] [place] [address] * POCT Glucose (12/24/2018 7:54 PM EDT) Glucose, POC 175 65 - 199 mg/dL [facility] Comment: Supplemental ranges: <140 mg/dL before meals <180 mg/dL all other times of the day Blood specimen (specimen) 12/24/2018 7:54 PM EDT 12/24/2018 7:54 PM EDT Louis De La O MD POINT OF CARE TEST ORDERABLES [facility] [place] [address] * POCT Glucose (12/24/2018 4:18 PM EDT) Glucose, POC 189 65 - 199 mg/dL [facility] Comment: Supplemental ranges: <140 mg/dL before meals <180 mg/dL all other times of the day Blood specimen (specimen) 12/24/2018 4:18 PM EDT 12/24/2018 4:18 PM EDT Louis De La O MD POINT OF CARE TEST ORDERABLES [facility] [place] [address] * POCT Glucose (12/24/2018 2:17 PM EDT) Glucose, POC 149 65 - 199 mg/dL [facility] Comment: Supplemental ranges: <140 mg/dL before meals <180 mg/dL all other times of the day Blood specimen (specimen) 12/24/2018 2:17 PM EDT 12/24/2018 2:17 PM EDT Louis De La O MD POINT OF CARE TEST ORDERABLES [facility] [place] [address] * POCT Glucose (12/24/2018 12:09 PM EDT) Glucose, POC 163 65 - 199 mg/dL [facility] Comment: Supplemental ranges: <140 mg/dL before meals <180 mg/dL all other times of the day Blood specimen (specimen) 12/24/2018 12:09 PM EDT 12/24/2018 12:09 PM EDT Louis De La O MD POINT OF CARE TEST ORDERABLES [facility] [place] [address] * POCT Glucose (12/24/2018 10:30 AM EDT) Glucose, POC 168 65 - 199 mg/dL [facility] Comment: Supplemental ranges: <140 mg/dL before meals <180 mg/dL all other times of the day Blood specimen (specimen) 12/24/2018 10:30 AM EDT 12/24/2018 10:30 AM EDT Louis De La O MD POINT OF CARE TEST ORDERABLES Performing Organization Address City/[facility]/ZIP Co de Phone Number [facility] [place] [address] * POCT Glucose (12/24/2018 7:45 AM EDT) Glucose, POC 141 65 - 199 mg/dL [facility] Comment: Supplemental ranges: <140 mg/dL before meals <180 mg/dL all other times of the day Blood specimen (specimen) 12/24/2018 7:45 AM EDT 12/24/2018 7:45 AM EDT Louis De La O MD POINT OF CARE TEST ORDERABLES [facility] [place] [address] * POCT Glucose (12/24/2018 6:13 AM EDT) Glucose, POC 151 65 - 199 mg/dL [facility] Comment: Supplemental ranges: <140 mg/dL before meals <180 mg/dL all other times of the day Blood specimen (specimen) 12/24/2018 6:13 AM EDT 12/24/2018 6:13 AM EDT Louis De La O MD POINT OF CARE TEST ORDERABLES Performing Organization Address [facility] Co de Phone Number [facility] [place] [address] * POCT Glucose (12/24/2018 4:06 AM EDT) Glucose, POC 161 65 - 199 mg/dL [facility] Comment: Supplemental ranges: <140 mg/dL before meals <180 mg/dL all other times of the day Blood specimen (specimen) 12/24/2018 4:06 AM EDT 12/24/2018 4:06 AM EDT Louis De La O MD POINT OF CARE TEST ORDERABLES Performing Organization Address [facility] Co de Phone Number [facility] [place] [address] * Scan, Peripheral Blood (12/24/2018 4:05 AM EDT) Pathologist [facility] Plat estimate Normal [facility] RBC Morphology Normal [facility] Blood specimen (specimen) 12/24/2018 4:05 AM EDT 12/24/2018 4:14 AM EDT Narrative Resulting Agency Comment Spec In Lab Aidan ARRIAGA HEMATOLOGY ORDERABLE S Performing Organization Address [facility] Co de Phone Number [facility] [place] [address] * (ABNORMAL) Differential, Automated (12/24/2018 4:05 AM EDT) Neutrophil % 81.7 % [facility] Neutrophil Absolute 11.87(H) 1.70 - 6.10 x10(3)/[facility] Lymph % 6.8 % [facility] Lymphocytes Abs 1.0 0.9 - 3.2 x10(3)/[facility] Monocyte % 10.8 % [facility] Monocyte Abs 1.6(H) 0.3 - 0.9 x10(3)/[facility] Eos % 0.1 % [facility] Eosinophils Abs 0.0 0.0 - 0.4 x10(3)/[facility] Basophil % 0.3 % [facility] Baso Absolute 0.0 0.0 - 0.1 x10(3)/[facility] Immature Gran % 0.30 % [facility] Comment: Immature granulocytes(IG's)percentage and absolute count will include metamyelocytes, myelocytes, and promyelocytes. Blood smears from CBCs yielding IG's will be scanned manually for concordance. If this scan disagrees with the automated IG or if promyelocytes are noted, a manual differential will be performed. Immature Gran Absolute 0.05(H) 0.00 - 0.04 x10(3)/[facility] Blood specimen (specimen) 12/24/2018 4:05 AM EDT 12/24/2018 4:14 AM EDT Narrative Resulting Agency Comment Spec In Lab Aidan ARRIAGA HEMATOLOGY ORDERABLE S [facility] [place] [address] * (ABNORMAL) Hemogram (12/24/2018 4:05 AM EDT) White Blood Cell 14.5(H) 4.0 - 9.5 x10(3)/[facility] Red Blood Cell 4.58 4.58 - 5.54 x10(6)/[facility] Hemoglobin 13.6(L) 13.7 - 16.5 gm/dL [facility] Hematocrit 41.0 40.5 - 48.5 % [facility] Mean Cell Volume 89.5 82.9 - 93.1 fL [facility] Mean Cell Hemoglobin 29.7 27.5 - 32.1 pg [facility] Mean Cell Hemoglobin Concentration 33.2 32.0 - 35.7 gm/dL [facility] Platelet 164 145 - 357 x10(3)/mc L [facility] RDW Standard Deviation 45.2(H) 36.0 - 45.0 fL [facility] RDW coefficient of variation 13.7 11.4 - 13.8 % [facility] Mean Platelet Volume 9.3 7.6 - 12.9 fL [facility] NRBC% auto 0.0 % [facility] NRBC Absolute 0.000 0.000 - 0.000 x10(3)/mc L [facility] Blood specimen (specimen) 12/24/2018 4:05 AM EDT 12/24/2018 4:14 AM EDT Narrative Resulting Agency Comment Spec In Lab Aidan ARRIAGA HEMATOLOGY ORDERABLE S [facility] [place] [address] * (ABNORMAL) Basic Metabolic Panel (non-fasting) (12/24/2018 4:05 AM EDT) Glucose 173 65 - 199 mg/dL [facility] Comment:Diabetes: >=200 mg/d L plus symptoms Blood Urea Nitrogen 17 10 - 20 mg/dL [facility] Creatinine 1.12 0.80 - 1.50 mg/dL [facility] Sodium 137 135 - 145 mmol/L [facility] Potassium 4.9 3.5 - 5.0 mmol/L [facility] Comment: Please note: ??Patients with WBC >100,000 may have falsely elevated Potassium levels. ??For accurate Potassium quantification in these patients send serum separator tube (gold top) for subsequent determinations. ??Contact the Clinical Chemistry Laboratory if there are any questions. Chloride 105 98 - 107 mmol/L [facility] Carbon Dioxide 21(L) 22 - 31 mmol/L [facility] Anion Gap 11 5 - 15 mmol/L [facility] Calcium 8.5 8.5 - 10.5 mg/dL [facility] Est Glomerular Filtration Rate 68 >=60 mL/min/1. 73 m?? [facility] Comment: The eGFR was calculated using the CKD-EPI equation. As with all creatinine based estimates of kidney function, eGFR values calculated with the CKD-EPI equation are not accurate in patients with acute kidney failure, extremes of body mass or the acutely ill. [email or web address] [email or web address] eGFR 79 >=60 mL/min/1. 73 m?? [facility] Comment: The eGFR was calculated using the CKD-EPI equation. As with all creatinine based estimates of kidney function, eGFR values calculated with the CKD-EPI equation are not accurate in patients with acute kidney failure, extremes of body mass or the acutely ill. [email or web address] Blood specimen (specimen) 12/24/2018 4:05 AM EDT 12/24/2018 4:14 AM EDT Narrative Resulting Agency Comment Spec In Lab Louis De La O MD CHEMISTRY ORDERABLE S [facility] [place] [address] * (ABNORMAL) Troponin (12/24/2018 4:05 AM EDT) Troponin-T 0.17(H) 0.00 - 0.00 ng/mL [facility] Comment: The 99th percentile for Troponin T is less than 0.01 ng/mL, any detectable cTnT concentration using this assay should be considered elevated. According to the third universal definition of myocardial infarction the following criteria with a clinical presentation consistent with acute myocardial ischemia meets the diagnosis for a myocardial infarction (LA). Detection of a rise and/or fall of cTnT, with at least one value greater than the 99th percentile (> or = 0.01) and with at least one of the following ?? Symptoms of ischemia ?? New or presumed new significant [id number] wave (ST-T) changes or new left bundle [...] additional sample may be indicated. Reference: Third Kirkwood Definition of Myocardial Infarction. Journal of the [employer] 2012;60:1581-98 Blood specimen (specimen) 12/24/2018 4:05 AM EDT 12/24/2018 4:14 AM EDT Narrative Resulting Agency Comment Spec In Lab Louis De La O MD CHEMISTRY ORDERABLE S Performing Organization Address [facility] Co de Phone Number [facility] [place] [address] * POCT Glucose (12/24/2018 3:03 AM EDT) Glucose, POC 143 65 - 199 mg/dL [facility] Comment: Supplemental ranges: <140 mg/dL before meals <180 mg/dL all other times of the day Blood specimen (specimen) 12/24/2018 3:03 AM EDT 12/24/2018 3:03 AM EDT Louis De La O MD POINT OF CARE TEST ORDERABLES Performing Organization Address [facility] Co de Phone Number [facility] [place] [address] * POCT Glucose (12/24/2018 2:10 AM EDT) Glucose, POC 142 65 - 199 mg/dL [facility] Comment: Supplemental ranges: <140 mg/dL before meals <180 mg/dL all other times of the day Blood specimen (specimen) 12/24/2018 2:10 AM EDT 12/24/2018 2:10 AM EDT Louis De La O MD POINT OF CARE TEST ORDERABLES Performing Organization Address City/[facility]/ZIP Co de Phone Number [facility] [place] [address] * POCT Glucose (12/24/2018 1:01 AM EDT) Glucose, POC 115 65 - 199 mg/dL [facility] Comment: Supplemental ranges: <140 mg/dL before meals <180 mg/dL all other times of the day Blood specimen (specimen) 12/24/2018 1:01 AM EDT 12/24/2018 1:01 AM EDT Louis De La O MD POINT OF CARE TEST ORDERABLES Performing Organization Address City/[facility]/ZIP Co de Phone Number [facility] [place] [address] * POCT Glucose (12/24/2018 12:21 AM EDT) Glucose, POC 141 65 - 199 mg/dL [facility] Comment: Supplemental ranges: <140 mg/dL before meals <180 mg/dL all other times of the day Blood specimen (specimen) 12/24/2018 12:21 AM EDT 12/24/2018 12:21 AM EDT Louis De La O MD POINT OF CARE TEST ORDERABLES Performing Organization Address City/[facility]/ZIP Co de Phone Number [facility] [place] [address] * POCT Glucose (12/23/2018 9:51 PM EDT) Glucose, POC 123 65 - 199 mg/dL [facility] Comment: Supplemental ranges: <140 mg/dL before meals <180 mg/dL all other times of the day Blood specimen (specimen) 12/23/2018 9:51 PM EDT 12/23/2018 9:51 PM EDT Louis De La O MD POINT OF CARE TEST ORDERABLES [facility] [place] [address] * POCT Glucose (12/23/2018 8:53 PM EDT) Glucose, POC 127 65 - 199 mg/dL [facility] Comment: Supplemental ranges: <140 mg/dL before meals <180 mg/dL all other times of the day Blood specimen (specimen) 12/23/2018 8:53 PM EDT 12/23/2018 8:53 PM EDT Louis De La O MD POINT OF CARE TEST ORDERABLES Performing Organization Address City/[facility]/ZIP Co de Phone Number [facility] [place] [address] * POCT Glucose (12/23/2018 8:04 PM EDT) Glucose, POC 103 65 - 199 mg/dL [facility] Comment: Supplemental ranges: <140 mg/dL before meals <180 mg/dL all other times of the day Blood specimen (specimen) 12/23/2018 8:04 PM EDT 12/23/2018 8:04 PM EDT Louis De La O MD POINT OF CARE TEST ORDERABLES [facility] [place] [address] * POCT Glucose (12/23/2018 6:54 PM EDT) Glucose, POC 94 65 - 199 mg/dL [facility] Comment: Supplemental ranges: <140 mg/dL before meals <180 mg/dL all other times of the day Blood specimen (specimen) 12/23/2018 6:54 PM EDT 12/23/2018 6:54 PM EDT Louis De La O MD POINT OF CARE TEST ORDERABLES Performing Organization Address City/[facility]/ZIP Co de Phone Number [facility] [place] [address] * POCT Glucose (12/23/2018 6:30 PM EDT) Glucose, POC 86 65 - 199 mg/dL [facility] Comment: Supplemental ranges: <140 mg/dL before meals <180 mg/dL all other times of the day Blood specimen (specimen) 12/23/2018 6:30 PM EDT 12/23/2018 6:30 PM EDT Louis De La O MD POINT OF CARE TEST ORDERABLES Performing Organization Address [facility] Co de Phone Number [facility] [place] [address] * POCT Glucose (12/23/2018 5:59 PM EDT) Glucose, POC 99 65 - 199 mg/dL [facility] Comment: Supplemental ranges: <140 mg/dL before meals <180 mg/dL all other times of the day Blood specimen (specimen) 12/23/2018 5:59 PM EDT 12/23/2018 5:59 PM EDT Louis De La O MD POINT OF CARE TEST ORDERABLES Performing Organization Address City/[facility]/ZIP Co de Phone Number [facility] [place] [address] * POCT Glucose (12/23/2018 5:21 PM EDT) Glucose, POC 116 65 - 199 mg/dL [facility] Comment: Supplemental ranges: <140 mg/dL before meals <180 mg/dL all other times of the day Blood specimen (specimen) 12/23/2018 5:21 PM EDT 12/23/2018 5:21 PM EDT Louis De La O MD POINT OF CARE TEST ORDERABLES Performing Organization Address [facility] Co de Phone Number [facility] [place] [address] * POCT Glucose (12/23/2018 4:47 PM EDT) Glucose, POC 113 65 - 199 mg/dL [facility] Comment: Supplemental ranges: <140 mg/dL before meals <180 mg/dL all other times of the day Blood specimen (specimen) 12/23/2018 4:47 PM EDT 12/23/2018 4:47 PM EDT Louis De La O MD POINT OF CARE TEST ORDERABLES Performing Organization Address [facility] Co de Phone Number [facility] [place] [address] * POCT Glucose (12/23/2018 4:20 PM EDT) Glucose, POC 122 65 - 199 mg/dL [facility] Comment: Supplemental ranges: <140 mg/dL before meals <180 mg/dL all other times of the day Blood specimen (specimen) 12/23/2018 4:20 PM EDT 12/23/2018 4:20 PM EDT Louis De La O MD POINT OF CARE TEST ORDERABLES Performing Organization Address [facility] Co de Phone Number [facility] [place] [address] * Hemoglobin (12/23/2018 3:40 PM EDT) Hemoglobin 13.7 13.7 - 16.5 gm/dL [facility] Blood specimen (specimen) 12/23/2018 3:40 PM EDT 12/23/2018 3:56 PM EDT Narrative Resulting Agency Comment Spec In Lab Louis De La O MD HEMATOLOGY ORDERABL ES Performing Organization Address [facility] Co de Phone Number [facility] [place] [address] * Potassium (12/23/2018 3:40 PM EDT) [facility] Potassium 4.2 3.5 - 5.0 mmol/L [facility] Comment: Please note: ??Patients with [...] MD CHEMISTRY ORDERABLE S Performing Organization Address [facility] Co de Phone Number [facility] [place] [address] * POCT Glucose (12/23/2018 3:35 PM EDT) [facility] Glucose, POC 141 65 - 199 mg/dL [facility] Comment: Supplemental ranges: <140 mg/dL before meals <180 mg/dL all other times of the day Blood specimen (specimen) 12/23/2018 3:35 PM EDT 12/23/2018 3:35 PM EDT Louis De La O MD POINT OF CARE TEST ORDERABLES Performing Organization Address [facility] Co de Phone Number [facility] [place] [address] * (ABNORMAL) BLOOD GAS 2 ARTERIAL (12/23/2018 2:39 PM EDT) [facility] pH, Arterial 7.35 7.35 - 7.45 [facility] PCO2, Arterial 40 35 - 45 mmHg [facility] PO2, Arterial 114(H) 85 - 104 mmHg [facility] Bicarbonate, Arterial 21.3 20.0 - 26.0 mmol/L [facility] Base Excess, Arterial -4.4(L) -3.0 - 3.0 mmol/L [facility] Hgb Blood Gas 14.7 13.7 - 16.5 gm/dL [facility] Oxyhemoglobin, Arterial 96.7 94.0 - 97.0 % [facility] Carboxyhemoglob in, Arterial 0.2 % [facility] Comment: Nonsmokers: 0.5-1.5% COHB Smokers: Variable, but usually less than 10% Toxic: 20-30% COHB Lethal: Greater than 60% COHB Methemoglobin, Arterial 0.5 <=1.5 % [facility] Na Whole Blood 134(L) 135 - 145 mmol/L [facility] K Whole Blood 3.9 3.5 - 5.0 mmol/L [facility] Comment: Please note: Patients with WBC >100,000 may have falsely elevated Potassium levels. Contact the Clinical Chemistry Laboratory if there are any questions. ICa Whole Blood 1.21 1.15 - 1.33 mmol/L [facility] Comment: Note: ??Total bilirubin higher than 20 mg/dL may lead to falsely low ionized calcium. CL Whole Blood 106 98 - 107 mmol/L [facility] Gluc Whole Bld 171 65 - 199 mg/dL [facility] Comment:Diabetes: >=200 mg/d L plus symptoms. Lactate WB 2.9(H) 0.5 - 2.2 mmol/L [facility] FIO2 Art 40 % [facility] PF Ratio Art 285 [facility] Blood specimen (specimen) 12/23/2018 2:39 PM EDT 12/23/2018 2:39 PM EDT Louis De La O MD POINT OF CARE TEST ORDERABLES [facility] [place] [address] * POCT Glucose (12/23/2018 1:53 PM EDT) Glucose, POC 197 65 - 199 mg/dL [facility] Comment: Supplemental ranges: <140 mg/dL before meals <180 mg/dL all other times of the day Blood specimen (specimen) 12/23/2018 1:53 PM EDT 12/23/2018 1:53 PM EDT Louis De La O MD POINT OF CARE TEST ORDERABLES [facility] [place] [address] * (ABNORMAL) BLOOD GAS 2 ARTERIAL (12/23/2018 12:43 PM EDT) pH, Arterial 7.36 7.35 - 7.45 [facility] PCO2, Arterial 34(L) 35 - 45 mmHg [facility] PO2, Arterial 154(H) 85 - 104 mmHg [facility] Bicarbonate, Arterial 19.2(L) 20.0 - 26.0 mmol/L [facility] Base Excess, Arterial -6.6(L) -3.0 - 3.0 mmol/L [facility] Hgb Blood Gas 14.4 13.7 - 16.5 gm/dL [facility] Oxyhemoglobin, Arterial 96.6 94.0 - 97.0 % [facility] Carboxyhemoglob in, Arterial 1.3 % [facility] Comment: Nonsmokers: 0.5-1.5% COHB Smokers: Variable, but usually less than 10% Toxic: 20-30% COHB Lethal: Greater than 60% COHB Methemoglobin, Arterial 0.6 <=1.5 % [facility] Na Whole Blood 134(L) 135 - 145 mmol/L [facility] K Whole Blood 3.6 3.5 - 5.0 mmol/L [facility] Comment: Please note: Patients with WBC >100,000 may have falsely elevated Potassium levels. Contact the Clinical Chemistry Laboratory if there are any questions. ICa Whole Blood 1.19 1.15 - 1.33 mmol/L [facility] Comment: Note: ??Total bilirubin higher than 20 mg/dL may lead to falsely low ionized calcium. CL Whole Blood 107 98 - 107 mmol/L [facility] Gluc Whole Bld 201(H) 65 - 199 mg/dL [facility] Comment:Diabetes: >=200 mg/d L plus symptoms. Lactate WB 2.0 0.5 - 2.2 mmol/L [facility] FIO2 Art 60 % [facility] PF Ratio Art 257 [facility] Temp Art 35.9 Celsius [facility] Blood specimen (specimen) 12/23/2018 12:43 PM EDT 12/23/2018 12:43 PM EDT Louis De La O MD POINT OF CARE TEST ORDERABLES Performing Organization Address [facility] Co de Phone Number [facility] [place] [address] * EKG 12 Lead (12/23/2018 12:06 PM EDT) Ventricular rate 64 BPM MUSE SYSTEM Atrial Rate 78 BPM MUSE SYSTEM P-R Interval 280 ms MUSE SYSTEM QRS Duration 92 ms MUSE SYSTEM Q-T Interval 408 ms MUSE SYSTEM QTC Calculated (Bezet) 420 ms MUSE SYSTEM Calculated P Anderson 46 degrees MUSE SYSTEM Calculated R Anderson 14 degrees MUSE SYSTEM Calculated T Anderson 52 degrees MUSE SYSTEM INTERPRETATION Demand pacemaker; [...] O MD ECG ORDERABLES Performing Organization Address [facility]/ZIP Co de Phone Number MUSE SYSTEM [...] below. ? Electronically signed by: Shannon Long [facility] ([phone]), at 12/23/2018 12:25 PM Narrative 12/23/2018 12:25 [...] EDT) pH, Arterial 7.33(L) 7.35 - 7.45 [facility] PCO2, Arterial 40 35 - 45 mmHg [facility] PO2, Arterial 102 85 - 104 mmHg [facility] Bicarbonate, Arterial 20.8 20.0 - 26.0 mmol/L [facility] Base Excess, Arterial -5.1(L) -3.0 - 3.0 mmol/L [facility] Hgb Blood Gas 14.1 13.7 - 16.5 gm/dL [facility] Oxyhemoglobin, Arterial 95.0 94.0 - 97.0 % [facility] Carboxyhemoglob in, Arterial 1.3 % [facility] Comment: Nonsmokers: 0.5-1.5% COHB Smokers: Variable, but usually less than 10% Toxic: 20-30% COHB Lethal: Greater than 60% COHB Methemoglobin, Arterial 0.6 <=1.5 % [facility] Na Whole Blood 132(L) 135 - 145 mmol/L [facility] K Whole Blood 4.0 3.5 - 5.0 mmol/L [facility] Comment: Please note: Patients with WBC >100,000 may have falsely elevated Potassium levels. Contact the Clinical Chemistry Laboratory if there are any questions. ICa Whole Blood 1.22 1.15 - 1.33 mmol/L [facility] Comment: Note: ??Total bilirubin higher than 20 mg/dL may lead to falsely low ionized calcium. CL Whole Blood 105 98 - 107 mmol/L [facility] Gluc Whole Bld 257(H) 65 - 199 mg/dL [facility] Comment:Diabetes: >=200 mg/d L plus symptoms. Lactate WB 2.0 0.5 - 2.2 mmol/L [facility] FIO2 Art 100 % [facility] PF Ratio Art 102 [facility] Blood specimen (specimen) 12/23/2018 11:47 AM EDT 12/23/2018 11:47 AM EDT Louis De La O MD POINT OF CARE TEST ORDERABLES Performing Organization Address [facility]/ZIP Co de Phone Number [facility] [place] [address] * Fibrinogen (12/23/2018 10:30 AM EDT) Fibrinogen 272 200 - 393 mg/dL [facility] Comment: A fibrinogen level >100 mg/dL is adequate for hemostasis in most patients without underlying bleeding disorders. Blood specimen (specimen) 12/23/2018 10:30 AM EDT 12/23/2018 10:32 AM EDT Narrative Resulting Agency Comment Spec In Lab Vira Bañuelos MD HEMATOLOGY ORDERABLE S Performing Organization Address City/[facility]/ZIP Co de Phone Number [facility] [place] [address] * APTT (12/23/2018 10:30 AM EDT) Partial Thromboplastin Time 29 25 - 37 sec [facility] Comment: The PTT is NOT appropriate for heparin monitoring. Use the Anti-Xa level for heparin monitoring (HEP UFH) or LMWH monitoring (HEP LMW). A PTT less than 37 seconds generally indicates adequate hemostasis. Blood specimen (specimen) 12/23/2018 10:30 AM EDT 12/23/2018 10:32 AM EDT Narrative Resulting Agency Comment Spec In Lab Vira Bañuelos MD HEMATOLOGY ORDERABLE S Performing Organization Address [facility]/ZIP Co de Phone Number [facility] [place] [address] * (ABNORMAL) Prothrombin Time (12/23/2018 10:30 AM EDT) Prothrombin Time 13.7(H) 9.4 - 12.5 sec [facility] Comment:Called by: hai, Read back by: Kevin Hobson [id number], Date/Time:12/23/18 10:47. International Normalization Ratio 1.2 [facility] Comment: An INR <2.0 indicates [...] MD HEMATOLOGY ORDERABLE S Performing Organization Address [facility] Co de Phone Number [facility] [place] [address] * (ABNORMAL) Hemogram (12/23/2018 10:30 AM EDT) White Blood Cell 16.9(H) 4.0 - 9.5 x10(3)/mc L [facility] Red Blood Cell 3.80(L) 4.58 - 5.54 x10(6)/mc L [facility] Hemoglobin 11.5(L) 13.7 - 16.5 gm/dL [facility] Hematocrit 34.7(L) 40.5 - 48.5 % [facility] Comment: This result has been called to KEVIN HOBSON by Onelia Ramírez on 12 23 2018 at 1039, and has been read back. Mean Cell Volume 91.3 82.9 - 93.1 fL [facility] Mean Cell Hemoglobin 30.3 27.5 - 32.1 pg [facility] Mean Cell Hemoglobin Concentration 33.1 32.0 - 35.7 gm/dL [facility] Platelet 124(L) 145 - 357 x10(3)/mc L [facility] RDW Standard Deviation 45.1(H) 36.0 - 45.0 fL [facility] RDW coefficient of variation 13.3 11.4 - 13.8 % [facility] Mean Platelet Volume 9.1 7.6 - 12.9 fL [facility] NRBC% auto 0.0 % [facility] NRBC Absolute 0.000 0.000 - 0.000 x10(3)/mc L [facility] Blood specimen (specimen) 12/23/2018 10:30 AM EDT 12/23/2018 10:32 AM EDT Narrative Resulting Agency Comment Spec In Lab Vira Bañuelos MD HEMATOLOGY ORDERABLE S [facility] [place] [address] * (ABNORMAL) BLOOD GAS 2 ARTERIAL (12/23/2018 10:26 AM EDT) pH, Arterial 7.37 7.35 - 7.45 [facility] PCO2, Arterial 36 35 - 45 mmHg [facility] PO2, Arterial 316(H) 85 - 104 mmHg [facility] Bicarbonate, Arterial 20.4 20.0 - 26.0 mmol/L [facility] Base Excess, Arterial -5.1(L) -3.0 - 3.0 mmol/L [facility] Hgb Blood Gas 12.1(L) 13.7 - 16.5 gm/dL [facility] Oxyhemoglobin, Arterial 97.8(H) 94.0 - 97.0 % [facility] Carboxyhemoglob in, Arterial 1.2 % [facility] Comment: Nonsmokers: 0.5-1.5% COHB Smokers: Variable, but usually less than 10% Toxic: 20-30% COHB Lethal: Greater than 60% COHB Methemoglobin, Arterial 0.3 <=1.5 % [facility] Na Whole Blood 128(L) 135 - 145 mmol/L [facility] K Whole Blood 5.3(H) 3.5 - 5.0 mmol/L [facility] Comment: Please note: Patients with WBC >100,000 may have falsely elevated Potassium levels. Contact the Clinical Chemistry Laboratory if there are any questions. ICa Whole Blood 1.35(H) 1.15 - 1.33 mmol/L [facility] Comment: Note: ??Total bilirubin higher than 20 mg/dL may lead to falsely low ionized calcium. CL Whole Blood 104 98 - 107 mmol/L [facility] Gluc Whole Bld 271(H) 65 - 199 mg/dL [facility] Comment:Diabetes: >=200 mg/d L plus symptoms. Lactate WB 2.4(H) 0.5 - 2.2 mmol/L [facility] FIO2 Art 97 % [facility] Flow Art 2.6 LPM [facility] PF Ratio Art 326 [facility] Temp Art 35.9 Celsius [facility] Blood specimen (specimen) 12/23/2018 10:26 AM EDT 12/23/2018 10:26 AM EDT Louis De La O MD POINT OF CARE TEST ORDERABLES [facility] [place] [address] * Prepare Platelets, Apheresis (12/23/2018 10:25 AM EDT) Dispensed? Yes [facility] Blood specimen (specimen) 12/23/2018 10:25 AM EDT 12/23/2018 10:25 AM EDT Louis De La O MD BLOOD BANK PRODUCT ORDERABLES [facility] [place] [address] * (ABNORMAL) BLOOD GAS 2 ARTERIAL (12/23/2018 9:40 AM EDT) pH, Arterial 7.38 7.35 - 7.45 [facility] PCO2, Arterial 36 35 - 45 mmHg [facility] PO2, Arterial 394(H) 85 - 104 mmHg [facility] Bicarbonate, Arterial 21.0 20.0 - 26.0 mmol/L [facility] Base Excess, Arterial -4.1(L) -3.0 - 3.0 mmol/L [facility] Hgb Blood Gas 11.8(L) 13.7 - 16.5 gm/dL [facility] Oxyhemoglobin, Arterial 98.0(H) 94.0 - 97.0 % [facility] Carboxyhemoglob in, Arterial 1.1 % [facility] Comment: Nonsmokers: 0.5-1.5% COHB Smokers: Variable, but usually less than 10% Toxic: 20-30% COHB Lethal: Greater than 60% COHB Methemoglobin, Arterial 0.3 <=1.5 % [facility] Na Whole Blood 129(L) 135 - 145 mmol/L [facility] K Whole Blood 6.2(Critic al) 3.5 - 5.0 mmol/L [facility] Comment: Noted by percussion instrument repairer. Please note: Patients with WBC >100,000 may have falsely elevated Potassium levels. Contact the Clinical Chemistry Laboratory if there are any questions. ICa Whole Blood 0.92(Criti kyle) 1.15 - 1.33 mmol/L [facility] Comment: Noted by percussion instrument repairer. Note: ??Total bilirubin higher than 20 mg/dL may lead to falsely low ionized calcium. CL Whole Blood 103 98 - 107 mmol/L [facility] Gluc Whole Bld 289(H) 65 - 199 mg/dL [facility] Comment:Diabetes: >=200 mg/d L plus symptoms. Lactate WB 1.8 0.5 - 2.2 mmol/L [facility] Blood specimen (specimen) 12/23/2018 9:40 AM EDT 12/23/2018 9:40 AM EDT Louis De La O MD POINT OF CARE TEST ORDERABLES [facility] [place] [address] * (ABNORMAL) Platelet count (12/23/2018 9:35 AM EDT) Platelet 103(L) 145 - 357 x10(3)/mc L [facility] Immature Plt % 2.3 0.0 - 7.4 % [facility] Comment: Limitation of the Immature Platelet Fraction (IPF)-May be less reliable when the platelet count is less than 26x878/uL due to statistical imprecision. The IPF value [...] in a decreased state of production. References: [employer] The Clinical Value of the Immature Platelet Fraction (IPF) in Cell Recovery Document Number [id number] 08/2010 [employer] The Role of the Immature Platelet Fraction (IPF) in the Differential Diagnosis of Thrombocytopenia, Document [id number] V05/02/26 P05/14 Blood specimen (specimen) 12/23/2018 9:35 AM EDT 12/23/2018 9:43 AM EDT Narrative Resulting Agency Comment Spec In Lab Louis De La O MD HEMATOLOGY ORDERABL ES Performing Organization Address [facility] Co de Phone Number [facility] [place] [address] * (ABNORMAL) Hemoglobin and Hematocrit, blood (12/23/2018 9:35 AM EDT) Hemoglobin 10.9(L) 13.7 - 16.5 gm/dL [facility] Hematocrit 33.1(L) 40.5 - 48.5 % [facility] Comment: This result has been called to KEVIN HOBSON by Onelia Ramírez on 12 23 2018 at 0959, and has been read back. Blood specimen (specimen) 12/23/2018 9:35 AM EDT 12/23/2018 9:43 AM EDT Narrative Resulting Agency Comment Spec In Lab Louis De La O MD HEMATOLOGY ORDERABL ES Performing Organization Address [facility] de Phone Number [facility] [place] [address] * Fibrinogen (12/23/2018 9:35 AM EDT) Fibrinogen 254 200 - 393 mg/dL [facility] Comment: Called by: KEAGAN, Read back by: KEVIN BRUNO_, Date/Time:_12/23/18 10:21. A fibrinogen level >100 mg/dL is adequate for hemostasis in most patients without underlying bleeding disorders. Blood specimen (specimen) 12/23/2018 9:35 AM EDT 12/23/2018 9:43 AM EDT Narrative Resulting Agency Comment Spec In Lab Louis De La O MD HEMATOLOGY ORDERABL ES Performing Organization Address [facility] Co de Phone Number [facility] [place] [address] * (ABNORMAL) BLOOD GAS 2 VENOUS (12/23/2018 9:11 AM EDT) pH, Venous 7.24(Criti kyle) 7.32 - 7.42 [facility] Comment:Noted by percussion instrument repairer. PCO2, Venous 55(H) 41 - 51 mmHg [facility] PO2, Venous 56(H) 25 - 40 mmHg [facility] Bicarbonate, Venous 23.0 mmol/L [facility] Base Excess, Venous -4.4 mmol/L [facility] Hgb Blood Gas 12.7(L) 13.7 - 16.5 gm/dL [facility] Oxyhemoglobin, Venous 84.1 % [facility] Carboxyhemoglob in, Venous 1.3 % [facility] Comment: Nonsmokers: 0.5-1.5% COHB Smokers: Variable, but usually less than 10% Toxic: 20-30% COHB Lethal: Greater than 60% COHB Methemoglobin, Venous 0.3 <=1.5 % [facility] Na Whole Blood 134(L) 135 - 145 mmol/L [facility] K Whole Blood 4.5 3.5 - 5.0 mmol/L [facility] Comment: Please note: Patients with WBC >100,000 may have falsely elevated Potassium levels. Contact the Clinical Chemistry Laboratory if there are any questions. ICa Whole Blood 1.04(L) 1.15 - 1.33 mmol/L [facility] Comment: Note: ??Total bilirubin higher than 20 mg/dL may lead to falsely low ionized calcium. CL Whole Blood 104 98 - 107 mmol/L [facility] Gluc Whole Bld 171 65 - 199 mg/dL [facility] Comment:Diabetes: >=200 mg/d L plus symptoms Lactate WB 1.1 0.5 - 2.2 mmol/L [facility] Blood Gas Source Venous [facility] Blood specimen (specimen) 12/23/2018 9:11 AM EDT 12/23/2018 9:11 AM EDT Louis De La O MD POINT OF CARE TEST ORDERABLES [facility] [place] [address] * (ABNORMAL) BLOOD GAS 2 ARTERIAL (12/23/2018 9:11 AM EDT) pH, Arterial 7.32(L) 7.35 - 7.45 [facility] PCO2, Arterial 43 35 - 45 mmHg [facility] PO2, Arterial 358(H) 85 - 104 mmHg [facility] Bicarbonate, Arterial 21.6 20.0 - 26.0 mmol/L [facility] Base Excess, Arterial -4.5(L) -3.0 - 3.0 mmol/L [facility] Hgb Blood Gas 12.2(L) 13.7 - 16.5 gm/dL [facility] Oxyhemoglobin, Arterial 97.7(H) 94.0 - 97.0 % [facility] Carboxyhemoglob in, Arterial 1.5 % [facility] Comment: Nonsmokers: 0.5-1.5% COHB Smokers: Variable, but usually less than 10% Toxic: 20-30% COHB Lethal: Greater than 60% COHB Methemoglobin, Arterial 0.3 <=1.5 % [facility] Na Whole Blood 134(L) 135 - 145 mmol/L [facility] K Whole Blood 5.1(H) 3.5 - 5.0 mmol/L [facility] Comment: Please note: Patients with WBC >100,000 may have falsely elevated Potassium levels. Contact the Clinical Chemistry Laboratory if there are any questions. ICa Whole Blood 0.92(Criti kyle) 1.15 - 1.33 mmol/L [facility] Comment: Noted by percussion instrument repairer. Note: ??Total bilirubin higher than 20 mg/dL may lead to falsely low ionized calcium. CL Whole Blood 104 98 - 107 mmol/L [facility] Gluc Whole Bld 194 65 - 199 mg/dL [facility] Comment:Diabetes: >=200 mg/d L plus symptoms. Lactate WB 1.1 0.5 - 2.2 mmol/L [facility] Blood specimen (specimen) 12/23/2018 9:11 AM EDT 12/23/2018 9:11 AM EDT Louis De La O MD POINT OF CARE TEST ORDERABLES [facility] [place] [address] * (ABNORMAL) BLOOD GAS 2 ARTERIAL (12/23/2018 8:15 AM EDT) pH, Arterial 7.38 7.35 - 7.45 [facility] PCO2, Arterial 39 35 - 45 mmHg [facility] PO2, Arterial 406(H) 85 - 104 mmHg [facility] Bicarbonate, Arterial 22.5 20.0 - 26.0 mmol/L [facility] Base Excess, Arterial -2.9 -3.0 - 3.0 mmol/L [facility] Hgb Blood Gas 14.9 13.7 - 16.5 gm/dL [facility] Oxyhemoglobin, Arterial 98.0(H) 94.0 - 97.0 % [facility] Carboxyhemoglob in, Arterial 1.3 % [facility] Comment: Nonsmokers: 0.5-1.5% COHB Smokers: Variable, but usually less than 10% Toxic: 20-30% COHB Lethal: Greater than 60% COHB Methemoglobin, Arterial 0.3 <=1.5 % [facility] Na Whole Blood 136 135 - 145 mmol/L [facility] K Whole Blood 3.9 3.5 - 5.0 mmol/L [facility] Comment: Please note: Patients with WBC >100,000 may have falsely elevated Potassium levels. Contact the Clinical Chemistry Laboratory if there are any questions. ICa Whole Blood 1.11(L) 1.15 - 1.33 mmol/L [facility] Comment: Note: ??Total bilirubin higher than 20 mg/dL may lead to falsely low ionized calcium. CL Whole Blood 104 98 - 107 mmol/L [facility] Gluc Whole Bld 167 65 - 199 mg/dL [facility] Comment:Diabetes: >=200 mg/d L plus symptoms. Lactate WB 1.2 0.5 - 2.2 mmol/L [facility] FIO2 Art 94 % [facility] Flow Art 1.1 LPM [facility] PF Ratio Art 432 [facility] Temp Art 35.7 Celsius [facility] Blood specimen (specimen) 12/23/2018 8:15 AM EDT 12/23/2018 8:15 AM EDT Louis De La O MD POINT OF CARE TEST ORDERABLES [facility] [place] [address] * (ABNORMAL) Urinalysis without microscopic (12/23/2018 7:20 AM EDT) Glucose, Urine Dipstick Negative Negative mg/dL [facility] Protein, Urine Dipstick 30(A) Negative mg/dL [facility] Bilirubin, Urine Dipstick Negative Negative mg/dL [facility] Comment: Clinical correlation required for positive Urine Bilirubin results as false positive may occur with some drugs and drug related products. If a false positive is suspected a serum total bilirubin should be considered if clinically indicated. Urobilinogen, Urine Dipstick Normal Normal mg/dL [facility] pH, Urn (dipstick) 6.0 5.0 - 8.0 [facility] Blood, Urine Dipstick Negative Negative mg/dL [facility] Ketone, Urine Dipstick Negative Negative mg/dL [facility] Nitrite, Urine Dipstick Negative Negative [facility] Leukocytes, Urine Dipstick Negative Negative [facility] Appearance, Urine Dipstick Clear Clear [facility] Specific [place] Urine Automated 1.021 1.002 - 1.030 [facility] Color, Urine Dipstick Yellow Yellow [facility] Urine specimen (specimen) 12/23/2018 7:20 AM EDT 12/23/2018 8:00 AM EDT Narrative Resulting Agency Comment Spec In Lab Marlo Keith MD URINE ORDERABLES [facility] [place] [address] * EKG 12 Lead (12/23/2018 7:18 AM EDT) Ventricular rate 68 BPM MUSE SYSTEM Atrial Rate 68 BPM MUSE SYSTEM P-R Interval 212 ms MUSE SYSTEM QRS Duration 84 ms MUSE SYSTEM Q-T Interval 376 ms MUSE SYSTEM QTC Calculated (Bezet) 399 ms MUSE SYSTEM Calculated P Anderson 57 degrees MUSE SYSTEM Calculated R Anderson 4 degrees MUSE SYSTEM Calculated T Anderson 69 degrees MUSE SYSTEM INTERPRETATION Sinus rhythm with 1st degree A-V block Inferior infarct (cited on or before 23-FEB-2009) Abnormal ECG When compared with ECG of 23-FEB-2009 16:24, [place] interval has increased Improvement in T wave morphology in anterolateral leads Confirmed by MD Amado, Irwin ([id number]) on 12/23/2018 8:52:28 AM MUSE SYSTEM 12/23/2018 7:18 AM EDT 12/23/2018 8:52 AM EDT Louis De La O MD ECG ORDERABLES MUSE SYSTEM * (ABNORMAL) Differential, Automated (12/23/2018 7:10 AM EDT) Neutrophil % 70.5 % [facility] Neutrophil Absolute 5.34 1.70 - 6.10 x10(3)/mc L [facility] Lymph % 14.1 % [facility] Lymphocytes Abs 1.1 0.9 - 3.2 x10(3)/[facility] Monocyte % 12.5 % [facility] Monocyte Abs 1.0(H) 0.3 - 0.9 x10(3)/[facility] Eos % 1.7 % [facility] Eosinophils Abs 0.1 0.0 - 0.4 x10(3)/[facility] Basophil % 1.1 % [facility] Baso Absolute 0.1 0.0 - 0.1 x10(3)/[facility] Immature Gran % 0.10 % [facility] Comment: Immature granulocytes(IG's)percentage and absolute count will include metamyelocytes, myelocytes, and promyelocytes. Blood smears from CBCs yielding IG's will be scanned manually for concordance. If this scan disagrees with the automated IG or if promyelocytes are noted, a manual differential will be performed. Immature Gran Absolute 0.01 0.00 - 0.04 x10(3)/[facility] Blood specimen (specimen) 12/23/2018 7:10 AM EDT 12/23/2018 7:18 AM EDT Narrative Resulting Agency Comment Spec In Lab Louis De La O MD HEMATOLOGY ORDERABL ES [facility] [place] [address] * Hemogram (12/23/2018 7:10 AM EDT) White Blood Cell 7.6 4.0 - 9.5 x10(3)/[facility] Red Blood Cell 4.81 4.58 - 5.54 x10(6)/[facility] Hemoglobin 14.2 13.7 - 16.5 gm/dL [facility] Hematocrit 43.2 40.5 - 48.5 % [facility] Mean Cell Volume 89.8 82.9 - 93.1 fL [facility] Mean Cell Hemoglobin 29.5 27.5 - 32.1 pg [facility] Mean Cell Hemoglobin Concentration 32.9 32.0 - 35.7 gm/dL [facility] Platelet 323 145 - 357 x10(3)/[facility] RDW Standard Deviation 44.7 36.0 - 45.0 fL [facility] RDW coefficient of variation 13.4 11.4 - 13.8 % [facility] Mean Platelet Volume 9.6 7.6 - 12.9 fL [facility] NRBC% auto 0.0 % [facility] NRBC Absolute 0.000 0.000 - 0.000 x10(3)/[facility] Blood specimen (specimen) 12/23/2018 7:10 AM EDT 12/23/2018 7:18 AM EDT Narrative Resulting Agency Comment Spec In Lab Louis De La O MD HEMATOLOGY ORDERABL ES [facility] [place] [address] * (ABNORMAL) CMP w/fasting Glucose (12/23/2018 7:10 AM EDT) Glucose Fasting 150(H) 65 - 99 mg/dL [facility] Comment: ?Fasting* Glucose Interpretive Criteria [...] of Diabetes Mellitus, Position Statement from the [place]. ??Diabetes Care, Volume 33, Supplement 1, Mar 2009 Blood Urea Nitrogen 20 10 - 20 mg/dL [facility] Creatinine 1.27 0.80 - 1.50 mg/dL [facility] Sodium 140 135 - 145 mmol/L [facility] Potassium 4.7 3.5 - 5.0 mmol/L [facility] Comment: Please note: ??Patients with WBC >100,000 may have falsely elevated Potassium levels. ??For accurate Potassium quantification in these patients send serum separator tube (gold top) for subsequent determinations. ??Contact the Clinical Chemistry Laboratory if there are any questions. Chloride 100 98 - 107 mmol/L [facility] Carbon Dioxide 26 22 - 31 mmol/L [facility] Anion Gap 14 5 - 15 mmol/L [facility] Calcium 9.3 8.5 - 10.5 mg/dL [facility] Protein, Total 7.3 6.1 - 8.0 gm/dL [facility] Albumin 4.3 3.2 - 5.2 gm/dL [facility] Aspartate Aminotransferase 13 0 - 39 unit/L [facility] Alanine Aminotransferase 12 0 - 55 unit/L [facility] Alkaline Phosphatase 60 40 - 130 unit/L [facility] Bilirubin, Total 0.3 0.2 - 1.3 mg/dL [facility] Est Glomerular Filtration Rate 58(L) >=60 mL/min/1. 73 m?? [facility] Comment: The eGFR was calculated using the CKD-EPI equation. As with all creatinine based estimates of kidney function, eGFR values calculated with the CKD-EPI equation are not accurate in patients with acute kidney failure, extremes of body mass or the acutely ill. [email or web address] eGFR 68 >=60 mL/min/1. 73 m?? [facility] Comment: The eGFR was calculated using the CKD-EPI equation. As with all creatinine based estimates of kidney function, eGFR values calculated with the CKD-EPI equation are not accurate in patients with acute kidney failure, extremes of body mass or the acutely ill. [email or web address] Blood specimen (specimen) 12/23/2018 7:10 AM EDT 12/23/2018 7:18 AM EDT Narrative Resulting Agency Comment Spec In Lab Louis De La O MD CHEMISTRY ORDERABLE S [facility] [place] [address] * POCT Glucose (12/23/2018 6:46 AM EDT) Glucose, POC 132 65 - 199 mg/dL [facility] Comment: Supplemental ranges: <140 mg/dL before meals <180 mg/dL all other times of the day Blood specimen (specimen) 12/23/2018 6:46 AM EDT 12/23/2018 6:46 AM EDT Louis De La O MD POINT OF CARE TEST ORDERABLES Performing Organization Address City/[facility]/ZIP Co de Phone Number [facility] [place] [address] * Prepare RBC (12/23/2018 6:40 AM EDT) Dispensed? Yes [facility] Blood specimen (specimen) 12/23/2018 6:40 AM EDT 12/23/2018 6:37 AM EDT Louis De La O MD BLOOD BANK PRODUCT ORDERABLES [facility] [place] [address] documented in this encounter Visit Diagnoses Diagnosis CKD (chronic kidney disease) stage 4, GFR 15-29 ml/min Chronic kidney disease, Stage IV (severe) ASCVD (arteriosclerotic cardiovascular disease) Unspecified cardiovascular disease 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, unspecified vessel or lesion type S/P CABG x 2 Postsurgical aortocoronary bypass status CAD (coronary artery disease) Coronary atherosclerosis of unspecified type of vessel, [place] or graft 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 Call pager # [phone] if initiated. Rate/Dose Change 12/23/2018 2:48 PM EDT 1 mcg/min 7.5 mL/hr Rate/Dose Verify 12/23/2018 2:00 PM EDT 2 mcg/min 15 mL/h r Rate/Dose Verify 12/23/2018 12:00 PM EDT 2 mcg/min 15 mL/ hr [id number] 25 mg/mL or placebo injection 1,125 [...] if phenyleprine and/or vasopressin ineffective.Call pager # [phone] if initiated., Routine Rate/Dose Verify 12/24/2018 4:00 [...] 2.0 L/min/M2. Maximum volume 2 L. Call housekeeping assistant for additional fluid orders: pager #[phone]. New Bag 12/23/2018 11:15 AM EDT 250 [...] Ramírez Zapata, MARTIN)1826 (Given - Provider: Ramírez Zapata, MARTIN)2352 (Given - Provider: Rudi Danielle RN) 0515 (Given - Provider: Rudi Danielle RN)1105 (Given - Provider: Jennifer Ramos RN)1711 (Given - Provider: Jennifer Ramos RN)2335 (Given - Provider: Rudi N [place], RN) 0515 (Given - Provider: Rudi Danielle [...] DAILY, First dose (after last modification) on 12/26/18 at 0930, Until Discontinued, Starting post-op day [...] Discontinued 09 (Given - Provider: Ramírez Zapata RN)173 (Given - Provider: Ramírez Zapata RN) 0900 [...] EVERY MORNING BEFORE BREAKFAST, First dose on 12/27/18 at 0730, Until Discontinued, Administer 30 minutes [...] SCHEDULED, First dose (after last modification) on Thu12/25/18 at 1400, Until Discontinued, Routine 1450 (Given [...] Danielle RN)0715 (Given - Provider: Jennifer Ramos, MARTIN)1515 (Given - Provider: Jennifer Ramos, MARTIN)3366 (Given - Provider: Rudi Danielle RN) 0715 [...] Routine documented in this encounter Care Teams Occupational Analyst Relationship Specialty Start Date End Date Antonella Lucas PA [address] [place] [address] PCP - General Family Medicine 05/06/17 11/01/19 documented as of this encounter
--- OUTSIDE RECORDS SUMMARY | 2024-03-13 10:09 | XMS_ITS | Encounter Summary ---
Author Organization Formerly [facility] [place] [address] Care Team Providers Care High Frequency Mill Operator Name Role Phone Antonella Lucas Primary Care Provider [phone] Reason for Visit * Auth/Cert Specialty Diagnoses [...] Expiration Date Visits Re quested Visits Authorized [id number] 1 1 Encounter Details Date Type Department Care Team ([facility] Contact Info) Description 12/23/2018 7:30 AM EDT - 12/23/2018 11:16 AM EDT Surgery [place] [address] Louis De La O MD @CABG, USING [...] Patient Age: 68 y.o. Birthdate: 1950 Language: Prydeinig Race: White Ethnicity: Not nor Admit Date: [...] study as scheduled. Inpatient Provider Contact Information: [facility] Section of Cardiac Surgery [facility] [address] FAX [phone] Discharge Diagnoses (Hospital Problems) Primary Diagnoses: CAD [...] by Louis De La O MD at [facility] MAIN OR ??? PRO CABG, ARTERY-VEIN, SINGLE N/A 12/23/2018 @CABG, VENOUS & ARTERIAL GRAFT;SINGLE VEIN GRAFT (WRVU 3.61) performed by Louis De La O MD at [facility] MAIN OR ??? PRO ENDOSCOPY W/VIDEO-ASST VEIN HARVEST, CABG N/A 12/23/2018 ENDOSCOPIC HARVEST VEIN(S) FOR CABG (WRVU 0.31) performed by Louis De La O MD at [facility] MAIN OR Prior To Admission Medications [...] s/p CABGx2 Bear Gamboa was admitted to [facility] on 12/23/2018 via the Same Day Program. [...] La O and/or the Cardiac Surgery Physician Order Entry Clerk Team may be reached at . Weight: [...] Dr. Louis Boston. You may use a [place] Track or treadmill but avoid any pulling [...] friends, go to a movie, go to gnosticism, etc. Heavy activities: No hunting, skiing, jogging, [...] should resume a low fat, low cholesterol, [place] Heart Association Diet/Diabetic diet. Driving: No driving [...] there is a lot of swelling, apply ebrta wraps during the day and remove at [...] the outpatient Phase 2 Cardiac Rehabilitation at [facility] . The patient agrees to a referral to this program. The referral will be sent at discharge and the patient should be contacted by the Program within 1- 2 weeks from discharge. 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 Other pertinent information: Stat read required?: Does patient require sedation?: GA rationale: Date of injury if applicable: Requested Time: EKG 12 Lead [50729 CPT(R)] 01/27/2019 (Approximate) 07/29/2019 Process Instructions: Scheduling Instructions: Questions: Which DH location will this be performed?: [place] Is a rhythm strip needed?: No XR Chest PA & Lateral (Generic) [74057 [id number] Custom] 01/27/2019 (Approximate) 07/29/2019 Process Instructions: Scheduling Instructions: Questions: Where will study be performed?: [facility] Radiology Portable exam?: Reason for exam and clinical history: s/p CABG Other pertinent information: Stat read required?: Date of injury if applicable: Requested Time: Referral to Cardiac Rehab [FWJ391 Custom] As directed Process Instructions: If no progress note charted, please enter Clinical details in comments. Scheduling Instructions: Questions: My question or request is: Pt will participate in cardiac rehab@ [facility] Referral to Home Health - at DISCHARGE [RIF4128 CPT(R)] As directed Process Instructions: Scheduling Instructions: Comments: DOCUMENTATION FOR VNA SERVICES (INCLUDING THOSE PATIENTS WITH MEDICARE COVERAGE REQUIRING HOME VNA SERVICES AND/OR HOSPICE SERVICES) PATIENT'S LOCATION: Bear Gamboa [address] [place] [address] [address] [facility] [address] Bonding Agent's Name: india Pichardo In discussion with the attending physician, it is certified that this patient is under their care and that they, or a Nurse Practitioner, or Physician Order Entry Clerk who is working directly with them, hada [...] for services as follows: HOME HEALTH AGENCY: [facility]. PHONE: [phone] FAX: [phone] RN orders: Cardiopulmonary assessment, incisional assessment, assess [...] issues please call the Cardiac SurgeryOffice at [phone] FOR MEDICARE ONLY: (please delete this section [...] noted. Questions: Agency name and contact information: [facility] Patient location post discharge: home What services are requested: Registered Nurse Physical Therapy Start date: Responsible MD post discharge contact info: PCP Arrangements for VNA/home care: As above. VN RN OR PCP TO PLEASE REMOVE CHEST TUBE SUTURES ON OR AFTER 01/02/19 Signed: BART James [facility] Section of Cardiac Surgery [facility] [address] FAX [phone] Date: 12/27/2018 CC: BART Miller Anil K, MD [address] [place] [phone] documented in this encounter Discharge Instructions * [...] La O and/or the Cardiac Surgery Physician Order Entry Clerk Team may be reached at . ?? [...] Dr. Louis Boston. You may use a [place] Track or treadmill but avoid any pulling [...] friends, go to a movie, go to gnosticism, etc. ?? Heavy activities: No hunting, skiing, jogging, snow shoveling, snowmobiling, lawn mowing, swimming,golf or tennis until after your return appointment with the surgeon. Do not ride motorcycles, ATBasecamp'stractors or horses. Avoid the use of a [...] should resume a low fat, low cholesterol, [place] Heart Association Diet/Diabetic diet. ?? Driving: No [...] the outpatient Phase 2 Cardiac Rehabilitation at [facility]??Hospital . ?? The patient agrees to a referral to this program.? The referral will be sent at discharge and the patient should be contacted by the Program within 1- 2 weeks from discharge. * Attachments The following attachments cannot be sent through Care Everywhere. * Smoking: Stopping (Prydeinig) * Smoking Cessation: Health Benefits: General Info (Prydeinig) documented in this encounter Medications at Time [...] oz) -- Weight Source Standing Scale -- GCZ489: Mr. Gamboa is progressing well and is expected to be discharged today. Central labs were drawn and sent to [facility] for processing/shipping. He was asked some [...] facility Urine Output (mL) [phone] [id number] study: the above documents Mr. Gamboa's urine output from arrival to [facility] to over 24 hourspost study medication administration. [...] oz) -- Weight Source Standing Scale -- FIA468 study: Central labs were drawn and sent to [facility] for processing/shipping. * Shavon Dunne RN [...] of chest tube output as required by KVI445 study. * Aidan Valenzuela PA - 12/24/2018 [...] (L/min) -- 2 L/min O2 Device -- [place] Height and Weight Weight 119.7 kg (263 lb 14.3 oz) -- Weight Source Standing Scale -- BP at 0800 was 112/53. Central labs were drawn and sent to [facility] for processing/shipping. * Aidan Valenzuela PA [...] INJURY (DANIELA) FOLLOWING CARDIAC SURGERY STUDY NUMBER: [id number] Phase 3 for Prevention of MAKE in Subjects at High Risk for DANIELA Following Cardiac Surgery Principle Site Leasing Agent: Marlo Keith MD, MS Following informed consent and confirmation that the subject met all inclusion criteria and that noexclusion criteria were met, the subject was randomized via BabooDarnell per protocol. Subject eligibility, hemodynamic stability, and [...] The above represents baseline/Day-1 data for the BJZ548 study; data collected in [facility] prior to surgery. Central labs were [...] - Coronary artery disease ? inferior [facility]I [facility] 02/23/09: proximal RCA, DESIGN CELL ENGINEER LAD. BMS to prox. RCA, BMS to [...] None ? Gets together: None ? Attends samaritan service: None ? Active member of club [...] - Coronary artery disease ? inferior [facility]I [facility] 02/23/09: proximal RCA, DESIGN CELL ENGINEER LAD. BMS to prox. RCA, BMS to [...] None ? Gets together: None ? Attends samaritan service: None ? Active member of club [...] Smyth RN - 12/27/2018 10:50 AM EDT [facility] CARDIAC REHABILITATION Bear Gamboa was seen today regarding participation in the outpatient Phase 2 Cardiac Rehabilitation at [facility] . The patient agrees to a referral [...] by Louis De La O MD at [facility] MAIN OR ??? PRO CABG, ARTERY-VEIN, SINGLE N/A 12/23/2018 @CABG, VENOUS & ARTERIAL GRAFT;SINGLE VEIN GRAFT (WRVU 3.61) performed by Louis De La O MD at [facility] MAIN OR ??? PRO ENDOSCOPY W/VIDEO-ASST VEIN HARVEST, CABG N/A 12/23/2018 ENDOSCOPIC HARVEST VEIN(S) FOR CABG (WRVU 0.31) performed by Louis De La O MD at [facility] MAIN OR Social History: Home set-up: [...] outlinedin this evaluation. Time IN / OUT: [id number] Total Evaluation Minutes, Physical Therapy: 15(eval) Jazmin Aleman, PT, DPT Pager: [phone] Physical Therapy Inpatient Rehabilitation Department * Plan [...] 1714 12/24/18 1150 Individualization Patient Specific Preferences bambi Sifuentes -- Mutuality/Individual Preferences What Anxieties, Fears [...] Hospitalizations Within the Past 30 Days: no [facility] admits in last 30 days. Anticipated Length Of Stay (If known): 5-7 days Current Decision-Making Capacity: Patient is A&Ox4 and able to make all medical decisions Advance Care Planning: Full Code Not in EPIC. 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 Current Functional Ability: assist of staff Functional Status Prior to Admission: independent with ADLs, driving, works part-time. Home Environment: lives in 3 level house, stays mainly on 1st level.Has bedroom and bathroom on first level. 3 steps to enter no railings [address] [facility] [address] Social & Family Supports/Community Resources: lives alone. [...] N/AMedicaid [place] Prescription Coverage: Yes [facility] [place], [place] - [address] Portal to Registered [facility] Sites [address] [facility] [address] [id number] - [place], [place] - [address] [facility] [address] Other: none Primary Care Provider: BART Miller [phone] Patient/Caregiver Goals of Treatment: return to previous level of function Potential Needs for Transition of Care: Discussed with patient and family levels of rehab includingSNF, swing, acute and VNA home health and hospice care also discussed. Discussed need to accept first bed available when patient is medically ready. Rehab/SNF: TBD Home Health: [facility] pended for RN/PT DME: tbd Transportation: car by ssamuel Pichardo Other: none Anticipated Barriers to Discharge/Special Considerations: none vs anticipated barriers to arise as hospitalization continues. Assessment: patient is admitted to CT service for CABG, final discharge disposition tbd by hospitalcourse and PT evaluation, VNA referral pended for RN/PT. 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 A letter describing our affiliations was reviewed with them and they were educated about their right to choose where referrals are placed. Patient requests referral to [facility] [employer]. PHONE: [phone] FAX: [phone] Expected date of discharge: TBD Referral routed to the Continuity Director for matching with agency/vendor and to provide any required information. Plan: A member of the Care Management team will continue to monitor progress, follow for continuityof care and assist with transition of care planning. Jazmin Jose RN Nurse Director Outpatient Services Pager [phone] * OR Attestation - Louis De La O MD - 12/23/2018 2:03 PM EDT Attestation: Case Date: 12/23/2018 I performed this procedure without the involvement of a resident. Louis De La O MD 12/28/2018 * Op Note - Louis De La O MD - 12/23/2018 2:03 PM EDT 12/28/2018 Bear Gamboa 1950 [id number] Preoperative Diagnosis: Coronary artery disease Stable Angina [...] the medial aspect of the knee. The [employer] XB7 system was used to dissect out [...] Operative Note Patient Name: Bear Gamboa : [id number] MR#: [id number] Case Date: 12/23/2018 Surgeon: Surgeon(s) and Role: [...] 9:46 AM EDT Coronary artery disease of [place] heart with stable angina pectoris, unspecified vessel [...] 9 8:15 AM EDT Cabg, Artery-Vein, Single ([id number]) 12/23/2018 7:31 AM EDT Coronary artery disease of [place] heart with stable angina pectoris, unspecified vessel or lesion type Endoscopy W/Video-Asst Vein [place], Cabg ([id number]) 12/23/2018 7:31 AM EDT Coronary artery disease of [place] heart with stable angina pectoris, unspecified vessel or lesion type Cabg, Arterial, Single ([id number]) 12/23/2018 7:31 AM EDT Coronary artery disease of [place] heart with stable angina pectoris, unspecified vessel [...] (Bezet) 420 ms MUSE SYSTEM Calculated P Darwin 57 degrees MUSE SYSTEM Calculated R [place] 6 degrees MUSE SYSTEM Calculated T [place] 144 degrees MUSE SYSTEM INTERPRETATION Sinus rhythm [...] Glucose, POC 185 65 - 199 mg/dL [facility] Comment: Supplemental ranges: <140 mg/dL before meals <180 mg/dL all other times of the day Blood specimen (specimen) 12/27/2018 11:47 AM EDT 12/27/2018 11:47 AM EDT Louis De La O MD POINT OF CARE TEST ORDERABLES Performing Organization Address [facility] Co de Phone Number [facility] [place] [address] * POCT Glucose (12/27/2018 7:37 AM EDT) Glucose, POC 163 65 - 199 mg/dL [facility] Comment: Supplemental ranges: <140 mg/dL before meals <180 mg/dL all other times of the day Blood specimen (specimen) 12/27/2018 7:37 AM EDT 12/27/2018 7:37 AM EDT Narrative Authorizing Provider Result Jr De La O MD POINT OF CARE TEST ORDERABLES Performing Organization Address City/[facility] Co de Phone Number [facility] [place] [address] * Potassium (12/27/2018 4:57 AM EDT) Potassium 3.9 3.5 - 5.0 mmol/L [facility] MD CHEMISTRY ORDERABLE S Performing Organization Address [facility] Co de Phone Number [facility] [place] [address] * POCT Glucose (12/26/2018 4:44 PM EDT) Glucose, POC 170 65 - 199 mg/dL [facility] Comment: Supplemental ranges: <140 mg/dL before meals <180 mg/dL all other times of the day Blood specimen (specimen) 12/26/2018 4:44 PM EDT 12/26/2018 4:44 PM EDT Louis De La O MD POINT OF CARE TEST ORDERABLES Performing Organization Address [facility]/ZIP Co de Phone Number [facility] [place] [address] * XR Chest PA & Lateral (Generic) [...] Glucose, POC 221(H) 65 - 199 mg/dL [facility] Comment: Supplemental ranges: <140 mg/dL before meals <180 mg/dL all other times of the day Blood specimen (specimen) 12/26/2018 11:57 AM EDT 12/26/2018 11:57 AM EDT Louis De La O MD POINT OF CARE TEST ORDERABLES Performing Organization Address City/[facility]/ZIP Co de Phone Number [facility] [place] [address] * POCT Glucose (12/26/2018 8:00 AM EDT) Glucose, POC 159 65 - 199 mg/dL [facility] Comment: Supplemental ranges: <140 mg/dL before meals <180 mg/dL all other times of the day Blood specimen (specimen) 12/26/2018 8:00 AM EDT 12/26/2018 8:00 AM EDT Louis De La O MD POINT OF CARE TEST ORDERABLES Performing Organization Address City/[facility]/ZIP Co de Phone Number [facility] [place] [address] * (ABNORMAL) Differential, Automated (12/26/2018 4:52 AM EDT) Neutrophil % 84.5 % [facility] Neutrophil Absolute 16.12(H) 1.70 - 6.10 x10(3)/mc L [facility] Lymph % 5.2 % [facility] Lymphocytes Abs 1.0 0.9 - 3.2 x10(3)/mc L [facility] Monocyte % 8.8 % [facility] Monocyte Abs 1.7(H) 0.3 - 0.9 x10(3)/[facility] Eos % 0.2 % [facility] Eosinophils Abs 0.0 0.0 - 0.4 x10(3)/[facility] Basophil % 0.3 % [facility] Baso Absolute 0.1 0.0 - 0.1 x10(3)/[facility] Immature Gran % 1.00 % [facility] Comment: Immature granulocytes(IG's)percentage and absolute count will include metamyelocytes, myelocytes, and promyelocytes. Blood smears from CBCs yielding IG's will be scanned manually for concordance. If this scan disagrees with the automated IG or if promyelocytes are noted, a manual differential will be performed. Immature Gran Absolute 0.19(H) 0.00 - 0.04 x10(3)/[facility] Blood specimen (specimen) 12/26/2018 4:52 AM EDT 12/26/2018 5:11 AM EDT Narrative Resulting Agency Comment Spec In Lab Aidan ARRIAGA HEMATOLOGY ORDERABLE S [facility] [place] [address] * (ABNORMAL) Hemogram (12/26/2018 4:52 AM EDT) White Blood Cell 19.1(H) 4.0 - 9.5 x10(3)/[facility] Red Blood Cell 4.38(L) 4.58 - 5.54 x10(6)/[facility] Hemoglobin 13.0(L) 13.7 - 16.5 gm/dL [facility] Hematocrit 40.0(L) 40.5 - 48.5 % [facility] Mean Cell Volume 91.3 82.9 - 93.1 fL [facility] Mean Cell Hemoglobin 29.7 27.5 - 32.1 pg [facility] Mean Cell Hemoglobin Concentration 32.5 32.0 - 35.7 gm/dL [facility] Platelet 171 145 - 357 x10(3)/mc L [facility] RDW Standard Deviation 46.0(H) 36.0 - 45.0 fL [facility] RDW coefficient of variation 13.5 11.4 - 13.8 % [facility] Mean Platelet Volume 9.8 7.6 - 12.9 fL [facility] NRBC% auto 0.0 % [facility] NRBC Absolute 0.000 0.000 - 0.000 x10(3)/mc L [facility] Blood specimen (specimen) 12/26/2018 4:52 AM EDT 12/26/2018 5:11 AM EDT Narrative Resulting Agency Comment Spec In Lab Aidan ARRIAGA HEMATOLOGY ORDERABLE S [facility] [place] [address] * (ABNORMAL) Basic Metabolic Panel (non-fasting) (12/26/2018 4:52 AM EDT) Glucose 172 65 - 199 mg/dL [facility] Comment:Diabetes: >=200 mg/d L plus symptoms Blood Urea Nitrogen 21(H) 10 - 20 mg/dL [facility] Creatinine 1.34 0.80 - 1.50 mg/dL [facility] Sodium 133(L) 135 - 145 mmol/L [facility] Potassium 3.7 3.5 - 5.0 mmol/L [facility] Comment: Please note: ??Patients with WBC >100,000 may have falsely elevated Potassium levels. ??For accurate Potassium quantification in these patients send serum separator tube (gold top) for subsequent determinations. ??Contact the Clinical Chemistry Laboratory if there are any questions. Chloride 99 98 - 107 mmol/L [facility] Carbon Dioxide 22 22 - 31 mmol/L [facility] Anion Gap 12 5 - 15 mmol/L [facility] Calcium 8.6 8.5 - 10.5 mg/dL [facility] [...] of body mass or the acutely ill. [email or web address]/[facility] eGFR 64 >=60 mL/min/1. 73 m?? [facility] Comment: The eGFR was calculated using the CKD-EPI equation. As with all creatinine based estimates of kidney function, eGFR values calculated with the CKD-EPI equation are not accurate in patients with acute kidney failure, extremes of body mass or the acutely ill. [email or web address]/[facility]nkf Blood specimen (specimen) 12/26/2018 4:52 AM EDT 12/26/2018 5:11 AM EDT Narrative Resulting Agency Comment Spec In Lab Louis De La O MD CHEMISTRY ORDERABLE S Performing Organization Address City/[facility]/ZIP Co de Phone Number [facility] [place] [address] * (ABNORMAL) POCT Glucose (12/25/2018 7:55 PM EDT) Glucose, POC 217(H) 65 - 199 mg/dL [facility] Comment: Supplemental ranges: <140 mg/dL before meals <180 mg/dL all other times of the day Blood specimen (specimen) 12/25/2018 7:55 PM EDT 12/25/2018 7:55 PM EDT Louis De La O MD POINT OF CARE TEST ORDERABLES [facility] [place] [address] * POCT Glucose (12/25/2018 3:35 PM EDT) Glucose, POC 170 65 - 199 mg/dL [facility] Comment: Supplemental ranges: <140 mg/dL before meals <180 mg/dL all other times of the day Blood specimen (specimen) 12/25/2018 3:35 PM EDT 12/25/2018 3:35 PM EDT Louis De La O MD POINT OF CARE TEST ORDERABLES [facility] [place] [address] * POCT Glucose (12/25/2018 11:21 AM EDT) Glucose, POC 196 65 - 199 mg/dL [facility] Comment: Supplemental ranges: <140 mg/dL before meals <180 mg/dL all other times of the day Blood specimen (specimen) 12/25/2018 11:21 AM EDT 12/25/2018 11:21 AM EDT Louis De La O MD POINT OF CARE TEST ORDERABLES [facility] [place] [address] * POCT Glucose (12/25/2018 7:50 AM EDT) Glucose, POC 164 65 - 199 mg/dL [facility] Comment: Supplemental ranges: <140 mg/dL before meals <180 mg/dL all other times of the day Blood specimen (specimen) 12/25/2018 7:50 AM EDT 12/25/2018 7:50 AM EDT Louis De La O MD POINT OF CARE TEST ORDERABLES [facility] [place] [address] * Potassium (12/25/2018 5:41 AM EDT) Potassium 4.1 3.5 - 5.0 mmol/L [facility] [...] MD CHEMISTRY ORDERABLE S Performing Organization Address [facility] Co de Phone Number [facility] [place] [address] * POCT Glucose (12/24/2018 7:54 PM EDT) Glucose, POC 175 65 - 199 mg/dL [facility] Comment: Supplemental ranges: <140 mg/dL before meals <180 mg/dL all other times of the day Blood specimen (specimen) 12/24/2018 7:54 PM EDT 12/24/2018 7:54 PM EDT Louis De La O MD POINT OF CARE TEST ORDERABLES Performing Organization Address [facility] Co de Phone Number [facility] [place] [address] * POCT Glucose (12/24/2018 4:18 PM EDT) Glucose, POC 189 65 - 199 mg/dL [facility] Comment: Supplemental ranges: <140 mg/dL before meals <180 mg/dL all other times of the day Blood specimen (specimen) 12/24/2018 4:18 PM EDT 12/24/2018 4:18 PM EDT Louis De La O MD POINT OF CARE TEST ORDERABLES Performing Organization Address City/[facility]/ZIP Co de Phone Number [facility] [place] [address] * POCT Glucose (12/24/2018 2:17 PM EDT) Glucose, POC 149 65 - 199 mg/dL [facility] Comment: Supplemental ranges: <140 mg/dL before meals <180 mg/dL all other times of the day Blood specimen (specimen) 12/24/2018 2:17 PM EDT 12/24/2018 2:17 PM EDT Louis De La O MD POINT OF CARE TEST ORDERABLES Performing Organization Address [facility] Co de Phone Number [facility] [place] [address] * POCT Glucose (12/24/2018 12:09 PM EDT) Glucose, POC 163 65 - 199 mg/dL [facility] Comment: Supplemental ranges: <140 mg/dL before meals <180 mg/dL all other times of the day Blood specimen (specimen) 12/24/2018 12:09 PM EDT 12/24/2018 12:09 PM EDT Louis De La O MD POINT OF CARE TEST ORDERABLES Performing Organization Address [facility] Co de Phone Number [facility] [place] [address] * POCT Glucose (12/24/2018 10:30 AM EDT) Glucose, POC 168 65 - 199 mg/dL [facility] Comment: Supplemental ranges: <140 mg/dL before meals <180 mg/dL all other times of the day Blood specimen (specimen) 12/24/2018 10:30 AM EDT 12/24/2018 10:30 AM EDT Louis De La O MD POINT OF CARE TEST ORDERABLES [facility] [place] [address] * POCT Glucose (12/24/2018 7:45 AM EDT) Glucose, POC 141 65 - 199 mg/dL [facility] Comment: Supplemental ranges: <140 mg/dL before meals <180 mg/dL all other times of the day Blood specimen (specimen) 12/24/2018 7:45 AM EDT 12/24/2018 7:45 AM EDT Louis De La O MD POINT OF CARE TEST ORDERABLES [facility] [place] [address] * POCT Glucose (12/24/2018 6:13 AM EDT) Glucose, POC 151 65 - 199 mg/dL [facility] Comment: Supplemental ranges: <140 mg/dL before meals <180 mg/dL all other times of the day Blood specimen (specimen) 12/24/2018 6:13 AM EDT 12/24/2018 6:13 AM EDT Louis De La O MD POINT OF CARE TEST ORDERABLES [facility] [place] [address] * POCT Glucose (12/24/2018 4:06 AM EDT) Glucose, POC 161 65 - 199 mg/dL [facility] Comment: Supplemental ranges: <140 mg/dL before meals <180 mg/dL all other times of the day Blood specimen (specimen) 12/24/2018 4:06 AM EDT 12/24/2018 4:06 AM EDT Louis De La O MD POINT OF CARE TEST ORDERABLES [facility] [place] [address] * Scan, Peripheral Blood (12/24/2018 4:05 AM EDT) Plat estimate Normal [facility] RBC Morphology Normal [facility] Blood specimen (specimen) 12/24/2018 4:05 AM EDT 12/24/2018 4:14 AM EDT Narrative Resulting Agency Comment Spec In Lab Aidan ARRIAGA HEMATOLOGY ORDERABLE S [facility] [place] [address] * (ABNORMAL) Differential, Automated (12/24/2018 4:05 AM EDT) Neutrophil % 81.7 % [facility] Neutrophil Absolute 11.87(H) 1.70 - 6.10 x10(3)/mc L [facility] Lymph % 6.8 % [facility] Lymphocytes Abs 1.0 0.9 - 3.2 x10(3)/mc L [facility] Monocyte % 10.8 % [facility] Monocyte Abs 1.6(H) 0.3 - 0.9 x10(3)/ L [facility] Eos % 0.1 % [facility] Eosinophils Abs 0.0 0.0 - 0.4 x10(3)/ L [facility] Basophil % 0.3 % [facility] Baso Absolute 0.0 0.0 - 0.1 x10(3)/mc L [facility] Immature Gran % 0.30 % [facility] Comment: Immature granulocytes(IG's)percentage and absolute count will include metamyelocytes, myelocytes, and promyelocytes. Blood smears from CBCs yielding IG's will be scanned manually for concordance. If this scan disagrees with the automated IG or if promyelocytes are noted, a manual differential will be performed. Immature Gran Absolute 0.05(H) 0.00 - 0.04 x10(3)/mc L [facility] Blood specimen (specimen) 12/24/2018 4:05 AM EDT 12/24/2018 4:14 AM EDT Narrative Resulting Agency Comment Spec In Lab Aidan ARRIAGA HEMATOLOGY ORDERABLE S [facility] [place] [address] * (ABNORMAL) Hemogram (12/24/2018 4:05 AM EDT) White Blood Cell 14.5(H) 4.0 - 9.5 x10(3)/[facility] Red Blood Cell 4.58 4.58 - 5.54 x10(6)/[facility] Hemoglobin 13.6(L) 13.7 - 16.5 gm/dL [facility] Hematocrit 41.0 40.5 - 48.5 % [facility] Mean Cell Volume 89.5 82.9 - 93.1 fL [facility] Mean Cell Hemoglobin 29.7 27.5 - 32.1 pg [facility] Mean Cell Hemoglobin Concentration 33.2 32.0 - 35.7 gm/dL [facility] Platelet 164 145 - 357 x10(3)/[facility] RDW Standard Deviation 45.2(H) 36.0 - 45.0 [facility] RDW coefficient of variation 13.7 11.4 - 13.8 % [facility] Mean Platelet Volume 9.3 7.6 - 12.9 fL [facility] NRBC% auto 0.0 % [facility] NRBC Absolute 0.000 0.000 - 0.000 x10(3)/[facility] Blood specimen (specimen) 12/24/2018 4:05 AM EDT 12/24/2018 4:14 AM EDT Narrative Resulting Agency Comment Spec In Lab Aidan ARRIAGA HEMATOLOGY ORDERABLE S [facility] [place] [address] * (ABNORMAL) Basic Metabolic Panel (non-fasting) (12/24/2018 4:05 AM EDT) Glucose 173 65 - 199 mg/dL [facility] Comment:Diabetes: >=200 mg/d L plus symptoms Blood Urea Nitrogen 17 10 - 20 mg/dL [facility] Creatinine 1.12 0.80 - 1.50 mg/dL [facility] Sodium 137 135 - 145 mmol/L [facility] Potassium 4.9 3.5 - 5.0 mmol/L [facility] Comment: Please note: ??Patients with WBC >100,000 may have falsely elevated Potassium levels. ??For accurate Potassium quantification in these patients send serum separator tube (gold top) for subsequent determinations. ??Contact the Clinical Chemistry Laboratory if there are any questions. Chloride 105 98 - 107 mmol/L [facility] Carbon Dioxide 21(L) 22 - 31 mmol/L [facility] Anion Gap 11 5 - 15 mmol/L [facility] Calcium 8.5 8.5 - 10.5 mg/dL [facility] Est Glomerular Filtration Rate 68 >=60 mL/min/1. 73 m?? [facility] Comment: The eGFR was calculated using the CKD-EPI equation. As with all creatinine based estimates of kidney function, eGFR values calculated with the CKD-EPI equation are not accurate in patients with acute kidney failure, extremes of body mass or the acutely ill. [email or web address] eGFR 79 >=60 mL/min/1. 73 m?? [facility] Comment: The eGFR was calculated using the CKD-EPI equation. As with all creatinine based estimates of kidney function, eGFR values calculated with the CKD-EPI equation are not accurate in patients with acute kidney failure, extremes of body mass or the acutely ill. [email or web address] Blood specimen (specimen) 12/24/2018 4:05 AM EDT 12/24/2018 4:14 AM EDT Narrative Resulting Agency Comment Spec In Lab Louis De La O MD CHEMISTRY ORDERABLE S Performing Organization Address [facility]/ZIP Co de Phone Number [facility] [place] [address] * (ABNORMAL) Troponin (12/24/2018 4:05 AM EDT) Pathologist [facility] Troponin-T 0.17(H) 0.00 - 0.00 ng/mL [facility] Comment: The 99th percentile for Troponin T is less than 0.01 ng/mL, any detectable cTnT concentration using this assay should be considered elevated. According to the third universal definition of myocardial infarction the following criteria with a clinical presentation consistent with acute myocardial ischemia meets the diagnosis for a myocardial infarction (TN). Detection of a rise and/or fall of cTnT, with at least one value greater than the 99th percentile (> or = 0.01) and with at least one of the following ?? Symptoms of ischemia ?? New or presumed new significant [id number] wave (ST-T) changes or new left bundle [...] additional sample may be indicated. Reference: Third [place] Definition of Myocardial Infarction. Journal of the [place] 2012;60:1581-98 Blood specimen (specimen) 12/24/2018 4:05 AM EDT 12/24/2018 4:14 AM EDT Narrative Resulting Agency Comment Spec In Lab Louis De La O MD CHEMISTRY ORDERABLE S Performing Organization Address [facility]/ZIP Co de Phone Number [facility] [place] [address] * POCT Glucose (12/24/2018 3:03 AM EDT) Glucose, POC 143 65 - 199 mg/dL [facility] Comment: Supplemental ranges: <140 mg/dL before meals <180 mg/dL all other times of the day Blood specimen (specimen) 12/24/2018 3:03 AM EDT 12/24/2018 3:03 AM EDT Louis De La O MD POINT OF CARE TEST ORDERABLES [facility] [place] [address] * POCT Glucose (12/24/2018 2:10 AM EDT) Glucose, POC 142 65 - 199 mg/dL [facility] Comment: Supplemental ranges: <140 mg/dL before meals <180 mg/dL all other times of the day Blood specimen (specimen) 12/24/2018 2:10 AM EDT 12/24/2018 2:10 AM EDT Louis De La O MD POINT OF CARE TEST ORDERABLES Performing Organization Address City/[facility]/ZIP Co de Phone Number [facility] [place] [address] * POCT Glucose (12/24/2018 1:01 AM EDT) Glucose, POC 115 65 - 199 mg/dL [facility] Comment: Supplemental ranges: <140 mg/dL before meals <180 mg/dL all other times of the day Blood specimen (specimen) 12/24/2018 1:01 AM EDT 12/24/2018 1:01 AM EDT Louis De La O MD POINT OF CARE TEST ORDERABLES [facility] [place] [address] * POCT Glucose (12/24/2018 12:21 AM EDT) Glucose, POC 141 65 - 199 mg/dL [facility] Comment: Supplemental ranges: <140 mg/dL before meals <180 mg/dL all other times of the day Blood specimen (specimen) 12/24/2018 12:21 AM EDT 12/24/2018 12:21 AM EDT Louis De La O MD POINT OF CARE TEST ORDERABLES [facility] [place] [address] * POCT Glucose (12/23/2018 9:51 PM EDT) Glucose, POC 123 65 - 199 mg/dL [facility] Comment: Supplemental ranges: <140 mg/dL before meals <180 mg/dL all other times of the day Blood specimen (specimen) 12/23/2018 9:51 PM EDT 12/23/2018 9:51 PM EDT Louis De La O MD POINT OF CARE TEST ORDERABLES Performing Organization Address City/[facility]/ZIP Co de Phone Number [facility] [place] [address] * POCT Glucose (12/23/2018 8:53 PM EDT) Glucose, POC 127 65 - 199 mg/dL [facility] Comment: Supplemental ranges: <140 mg/dL before meals <180 mg/dL all other times of the day Blood specimen (specimen) 12/23/2018 8:53 PM EDT 12/23/2018 8:53 PM EDT Louis De La O MD POINT OF CARE TEST ORDERABLES [facility] [place] [address] * POCT Glucose (12/23/2018 8:04 PM EDT) Glucose, POC 103 65 - 199 mg/dL [facility] Comment: Supplemental ranges: <140 mg/dL before meals <180 mg/dL all other times of the day Blood specimen (specimen) 12/23/2018 8:04 PM EDT 12/23/2018 8:04 PM EDT Louis De La O MD POINT OF CARE TEST ORDERABLES [facility] [place] [address] * POCT Glucose (12/23/2018 6:54 PM EDT) Glucose, POC 94 65 - 199 mg/dL [facility] Comment: Supplemental ranges: <140 mg/dL before meals <180 mg/dL all other times of the day Blood specimen (specimen) 12/23/2018 6:54 PM EDT 12/23/2018 6:54 PM EDT Louis De La O MD POINT OF CARE TEST ORDERABLES Performing Organization Address City/[facility]/ZIP Co de Phone Number [facility] [place] [address] * POCT Glucose (12/23/2018 6:30 PM EDT) Glucose, POC 86 65 - 199 mg/dL [facility] Comment: Supplemental ranges: <140 mg/dL before meals <180 mg/dL all other times of the day Blood specimen (specimen) 12/23/2018 6:30 PM EDT 12/23/2018 6:30 PM EDT Louis De La O MD POINT OF CARE TEST ORDERABLES [facility] [place] [address] * POCT Glucose (12/23/2018 5:59 PM EDT) Glucose, POC 99 65 - 199 mg/dL [facility] Comment: Supplemental ranges: <140 mg/dL before meals <180 mg/dL all other times of the day Blood specimen (specimen) 12/23/2018 5:59 PM EDT 12/23/2018 5:59 PM EDT Louis De La O MD POINT OF CARE TEST ORDERABLES Performing Organization Address City/[facility]/ZIP Co de Phone Number [facility] [place] [address] * POCT Glucose (12/23/2018 5:21 PM EDT) Glucose, POC 116 65 - 199 mg/dL [facility] Comment: Supplemental ranges: <140 mg/dL before meals <180 mg/dL all other times of the day Blood specimen (specimen) 12/23/2018 5:21 PM EDT 12/23/2018 5:21 PM EDT Louis De La O MD POINT OF CARE TEST ORDERABLES Performing Organization Address City/[facility]/ZIP Co de Phone Number [facility] [place] [address] * POCT Glucose (12/23/2018 4:47 PM EDT) Glucose, POC 113 65 - 199 mg/dL [facility] Comment: Supplemental ranges: <140 mg/dL before meals <180 mg/dL all other times of the day Blood specimen (specimen) 12/23/2018 4:47 PM EDT 12/23/2018 4:47 PM EDT Louis De La O MD POINT OF CARE TEST ORDERABLES Performing Organization Address City/[facility]/ZIP Co de Phone Number [facility] [place] [address] * POCT Glucose (12/23/2018 4:20 PM EDT) Glucose, POC 122 65 - 199 mg/dL [facility] Comment: Supplemental ranges: <140 mg/dL before meals <180 mg/dL all other times of the day Blood specimen (specimen) 12/23/2018 4:20 PM EDT 12/23/2018 4:20 PM EDT Louis De La O MD POINT OF CARE TEST ORDERABLES Performing Organization Address [facility] Co de Phone Number [facility] [place] [address] * Hemoglobin (12/23/2018 3:40 PM EDT) Hemoglobin 13.7 13.7 - 16.5 gm/dL [facility] Blood specimen (specimen) 12/23/2018 3:40 PM EDT 12/23/2018 3:56 PM EDT Narrative Resulting Agency Comment Spec In Lab Louis De La O MD HEMATOLOGY ORDERABL ES Performing Organization Address [facility] de Phone Number [facility] [place] [address] * Potassium (12/23/2018 3:40 PM EDT) Potassium 4.2 3.5 - 5.0 mmol/L [facility] MD CHEMISTRY ORDERABLE S Performing Organization Address [facility] Co de Phone Number [facility] [place] [address] * POCT Glucose (12/23/2018 3:35 PM EDT) Glucose, POC 141 65 - 199 mg/dL [facility] Comment: Supplemental ranges: <140 mg/dL before meals <180 mg/dL all other times of the day Blood specimen (specimen) 12/23/2018 3:35 PM EDT 12/23/2018 3:35 PM EDT Louis De La O MD POINT OF CARE TEST ORDERABLES [facility] [place] [address] * (ABNORMAL) BLOOD GAS 2 ARTERIAL (12/23/2018 2:39 PM EDT) pH, Arterial 7.35 7.35 - 7.45 [facility] PCO2, Arterial 40 35 - 45 mmHg [facility] PO2, Arterial 114(H) 85 - 104 mmHg [facility] Bicarbonate, Arterial 21.3 20.0 - 26.0 mmol/L [facility] Base Excess, Arterial -4.4(L) -3.0 - 3.0 mmol/L [facility] Hgb Blood Gas 14.7 13.7 - 16.5 gm/dL [facility] Oxyhemoglobin, Arterial 96.7 94.0 - 97.0 % [facility] Carboxyhemoglob in, Arterial 0.2 % [facility] Comment: Nonsmokers: 0.5-1.5% COHB Smokers: Variable, but usually less than 10% Toxic: 20-30% COHB Lethal: Greater than 60% COHB Methemoglobin, Arterial 0.5 <=1.5 % [facility] Na Whole Blood 134(L) 135 - 145 mmol/L [facility] K Whole Blood 3.9 3.5 - 5.0 mmol/L [facility] Comment: Please note: Patients with WBC >100,000 may have falsely elevated Potassium levels. Contact the Clinical Chemistry Laboratory if there are any questions. ICa Whole Blood 1.21 1.15 - 1.33 mmol/L [facility] Comment: Note: ??Total bilirubin higher than 20 mg/dL may lead to falsely low ionized calcium. CL Whole Blood 106 98 - 107 mmol/L [facility] Gluc Whole Bld 171 65 - 199 mg/dL [facility] Comment:Diabetes: >=200 mg/d L plus symptoms. Lactate WB 2.9(H) 0.5 - 2.2 mmol/L [facility] FIO2 Art 40 % [facility] PF Ratio Art 285 [facility] Blood specimen (specimen) 12/23/2018 2:39 PM EDT 12/23/2018 2:39 PM EDT Louis De La O MD POINT OF CARE TEST ORDERABLES Performing Organization Address [facility] Co de Phone Number [facility] [place] [address] * POCT Glucose (12/23/2018 1:53 PM EDT) Glucose, POC 197 65 - 199 mg/dL [facility] Comment: Supplemental ranges: <140 mg/dL before meals <180 mg/dL all other times of the day Blood specimen (specimen) 12/23/2018 1:53 PM EDT 12/23/2018 1:53 PM EDT Louis De La O MD POINT OF CARE TEST ORDERABLES Performing Organization Address City/[facility] Co de Phone Number [facility] [place] [address] * (ABNORMAL) BLOOD GAS 2 ARTERIAL (12/23/2018 12:43 PM EDT) pH, Arterial 7.36 7.35 - 7.45 [facility] PCO2, Arterial 34(L) 35 - 45 mmHg [facility] PO2, Arterial 154(H) 85 - 104 mmHg [facility] Bicarbonate, Arterial 19.2(L) 20.0 - 26.0 mmol/L [facility] Base Excess, Arterial -6.6(L) -3.0 - 3.0 mmol/L [facility] Hgb Blood Gas 14.4 13.7 - 16.5 gm/dL [facility] Oxyhemoglobin, Arterial 96.6 94.0 - 97.0 % [facility] Carboxyhemoglob in, Arterial 1.3 % [facility] Comment: Nonsmokers: 0.5-1.5% COHB Smokers: Variable, but usually less than 10% Toxic: 20-30% COHB Lethal: Greater than 60% COHB Methemoglobin, Arterial 0.6 <=1.5 % [facility] Na Whole Blood 134(L) 135 - 145 mmol/L [facility] K Whole Blood 3.6 3.5 - 5.0 mmol/L [facility] Comment: Please note: Patients with WBC >100,000 may have falsely elevated Potassium levels. Contact the Clinical Chemistry Laboratory if there are any questions. ICa Whole Blood 1.19 1.15 - 1.33 mmol/L [facility] Comment: Note: ??Total bilirubin higher than 20 mg/dL may lead to falsely low ionized calcium. CL Whole Blood 107 98 - 107 mmol/L [facility] Gluc Whole Bld 201(H) 65 - 199 mg/dL [facility] Comment:Diabetes: >=200 mg/d L plus symptoms. Lactate WB 2.0 0.5 - 2.2 mmol/L [facility] FIO2 Art 60 % [facility] PF Ratio Art 257 [facility] Temp Art 35.9 Celsius [facility] Blood specimen (specimen) 12/23/2018 12:43 PM EDT 12/23/2018 12:43 PM EDT Louis De La O MD POINT OF CARE TEST ORDERABLES [facility] [place] [address] * EKG 12 Lead (12/23/2018 12:06 PM EDT) Ventricular rate 64 BPM MUSE SYSTEM Atrial Rate 78 BPM MUSE SYSTEM P-R Interval 280 ms MUSE SYSTEM QRS Duration 92 ms MUSE SYSTEM Q-T Interval 408 ms MUSE SYSTEM QTC Calculated (Bezet) 420 ms MUSE SYSTEM Calculated P Darwin 46 degrees MUSE SYSTEM Calculated R Darwin 14 degrees MUSE SYSTEM Calculated T Darwin 52 degrees MUSE SYSTEM INTERPRETATION Demand pacemaker; [...] EDT) pH, Arterial 7.33(L) 7.35 - 7.45 [facility] PCO2, Arterial 40 35 - 45 mmHg [facility] PO2, Arterial 102 85 - 104 mmHg [facility] Bicarbonate, Arterial 20.8 20.0 - 26.0 mmol/L [facility] Base Excess, Arterial -5.1(L) -3.0 - 3.0 mmol/L [facility] Hgb Blood Gas 14.1 13.7 - 16.5 gm/dL [facility] Oxyhemoglobin, Arterial 95.0 94.0 - 97.0 % [facility] Carboxyhemoglob in, Arterial 1.3 % [facility] Comment: Nonsmokers: 0.5-1.5% COHB Smokers: Variable, but usually less than 10% Toxic: 20-30% COHB Lethal: Greater than 60% COHB Methemoglobin, Arterial 0.6 <=1.5 % [facility] Na Whole Blood 132(L) 135 - 145 mmol/L [facility] K Whole Blood 4.0 3.5 - 5.0 mmol/L [facility] Comment: Please note: Patients with WBC >100,000 may have falsely elevated Potassium levels. Contact the Clinical Chemistry Laboratory if there are any questions. ICa Whole Blood 1.22 1.15 - 1.33 mmol/L [facility] Comment: Note: ??Total bilirubin higher than 20 mg/dL may lead to falsely low ionized calcium. CL Whole Blood 105 98 - 107 mmol/L [facility] Gluc Whole Bld 257(H) 65 - 199 mg/dL [facility] Comment:Diabetes: >=200 mg/d L plus symptoms. Lactate WB 2.0 0.5 - 2.2 mmol/L [facility] FIO2 Art 100 % [facility] PF Ratio Art 102 [facility] Blood specimen (specimen) 12/23/2018 11:47 AM EDT 12/23/2018 11:47 AM EDT Louis De La O MD POINT OF CARE TEST ORDERABLES [facility] [place] [address] * Fibrinogen (12/23/2018 10:30 AM EDT) Fibrinogen 272 200 - 393 mg/dL [facility] Comment: A fibrinogen level >100 mg/dL is adequate for hemostasis in most patients without underlying bleeding disorders. Blood specimen (specimen) 12/23/2018 10:30 AM EDT 12/23/2018 10:32 AM EDT Narrative Resulting Agency Comment Spec In Lab Vira Bañuelos MD HEMATOLOGY ORDERABLE S Performing Organization Address [facility] Co de Phone Number [facility] [place] [address] * APTT (12/23/2018 10:30 AM EDT) Partial Thromboplastin Time 29 25 - 37 sec [facility] Comment: The PTT is NOT appropriate for heparin monitoring. Use the Anti-Xa level for heparin monitoring (HEP UFH) or LMWH monitoring (HEP LMW). A PTT less than 37 seconds generally indicates adequate hemostasis. Blood specimen (specimen) 12/23/2018 10:30 AM EDT 12/23/2018 10:32 AM EDT Narrative Resulting Agency Comment Spec In Lab Vira Bañuelos MD HEMATOLOGY ORDERABLE S Performing Organization Address [facility] de Phone Number [facility] [place] [address] * (ABNORMAL) Prothrombin Time (12/23/2018 10:30 AM EDT) Prothrombin Time 13.7(H) 9.4 - 12.5 sec [facility] Comment:Called by: hai, Read back by: Kevin Hobson [id number], Date/Time:12/23/18 10:47. International Normalization Ratio 1.2 [facility] Comment: An INR <2.0 [...] Lab Vira Bañuelos MD HEMATOLOGY ORDERABLE S [facility] [place] [address] * (ABNORMAL) Hemogram (12/23/2018 10:30 AM EDT) White Blood Cell 16.9(H) 4.0 - 9.5 x10(3)/mc L [facility] Red Blood Cell 3.80(L) 4.58 - 5.54 x10(6)/mc L [facility] Hemoglobin 11.5(L) 13.7 - 16.5 gm/dL [facility] Hematocrit 34.7(L) 40.5 - 48.5 % [facility] Comment: This result has been called to KEVIN HOBSON by Onelia Ramírez on 12 23 2018 at 1039, and has been read back. Mean Cell Volume 91.3 82.9 - 93.1 fL [facility] Mean Cell Hemoglobin 30.3 27.5 - 32.1 pg [facility] Mean Cell Hemoglobin Concentration 33.1 32.0 - 35.7 gm/dL [facility] Platelet 124(L) 145 - 357 x10(3)/mc L [facility] RDW Standard Deviation 45.1(H) 36.0 - 45.0 [facility] RDW coefficient of variation 13.3 11.4 - 13.8 % [facility] Mean Platelet Volume 9.1 7.6 - 12.9 [facility] NRBC% auto 0.0 % [facility] NRBC Absolute 0.000 0.000 - 0.000 x10(3)/ L [facility] Blood specimen (specimen) 12/23/2018 10:30 AM EDT 12/23/2018 10:32 AM EDT Narrative Resulting Agency Comment Spec In Lab Vira Bañuelos MD HEMATOLOGY ORDERABLE S [facility] [place] [address] * (ABNORMAL) BLOOD GAS 2 ARTERIAL (12/23/2018 10:26 AM EDT) pH, Arterial 7.37 7.35 - 7.45 [facility] PCO2, Arterial 36 35 - 45 mmHg [facility] PO2, Arterial 316(H) 85 - 104 mmHg [facility] Bicarbonate, Arterial 20.4 20.0 - 26.0 mmol/L [facility] Base Excess, Arterial -5.1(L) -3.0 - 3.0 mmol/L [facility] Hgb Blood Gas 12.1(L) 13.7 - 16.5 gm/dL [facility] Oxyhemoglobin, Arterial 97.8(H) 94.0 - 97.0 % [facility] Carboxyhemoglob in, Arterial 1.2 % [facility] Comment: Nonsmokers: 0.5-1.5% COHB Smokers: Variable, but usually less than 10% Toxic: 20-30% COHB Lethal: Greater than 60% COHB Methemoglobin, Arterial 0.3 <=1.5 % [facility] Na Whole Blood 128(L) 135 - 145 mmol/L [facility] K Whole Blood 5.3(H) 3.5 - 5.0 mmol/L [facility] Comment: Please note: Patients with WBC >100,000 may have falsely elevated Potassium levels. Contact the Clinical Chemistry Laboratory if there are any questions. ICa Whole Blood 1.35(H) 1.15 - 1.33 mmol/L [facility] Comment: Note: ??Total bilirubin higher than 20 mg/dL may lead to falsely low ionized calcium. CL Whole Blood 104 98 - 107 mmol/L [facility] Gluc Whole Bld 271(H) 65 - 199 mg/dL [facility] Comment:Diabetes: >=200 mg/d L plus symptoms. Lactate WB 2.4(H) 0.5 - 2.2 mmol/L [facility] FIO2 Art 97 % [facility] Flow Art 2.6 LPM [facility] PF Ratio Art 326 [facility] Temp Art 35.9 Celsius [facility] Blood specimen (specimen) 12/23/2018 10:26 AM EDT 12/23/2018 10:26 AM EDT Louis De La O MD POINT OF CARE TEST ORDERABLES Performing Organization Address [facility] de Phone Number [facility] [place] [address] * Prepare Platelets, Apheresis (12/23/2018 10:25 AM EDT) Pathologist [facility] Dispensed? Yes [facility] Blood specimen (specimen) 12/23/2018 10:25 AM EDT 12/23/2018 10:25 AM EDT Louis De La O MD BLOOD BANK PRODUCT ORDERABLES Performing Organization Address [facility] Phone Number [facility] [place] [address] * (ABNORMAL) BLOOD GAS 2 ARTERIAL (12/23/2018 9:40 AM EDT) pH, Arterial 7.38 7.35 - 7.45 [facility] PCO2, Arterial 36 35 - 45 mmHg [facility] PO2, Arterial 394(H) 85 - 104 mmHg [facility] Bicarbonate, Arterial 21.0 20.0 - 26.0 mmol/L [facility] Base Excess, Arterial -4.1(L) -3.0 - 3.0 mmol/L [facility] Hgb Blood Gas 11.8(L) 13.7 - 16.5 gm/dL [facility] Oxyhemoglobin, Arterial 98.0(H) 94.0 - 97.0 % [facility] Carboxyhemoglob in, Arterial 1.1 % [facility] Comment: Nonsmokers: 0.5-1.5% COHB Smokers: Variable, but usually less than 10% Toxic: 20-30% COHB Lethal: Greater than 60% COHB Methemoglobin, Arterial 0.3 <=1.5 % [facility] Na Whole Blood 129(L) 135 - 145 mmol/L [facility] K Whole Blood 6.2(Critic al) 3.5 - 5.0 mmol/L [facility] Comment: Noted by gyroscopic instrument mechanic. Please note: Patients with WBC >100,000 may have falsely elevated Potassium levels. Contact the Clinical Chemistry Laboratory if there are any questions. ICa Whole Blood 0.92(Criti kyle) 1.15 - 1.33 mmol/L [facility] Comment: Noted by gyroscopic instrument mechanic. Note: ??Total bilirubin higher than 20 mg/dL may lead to falsely low ionized calcium. CL Whole Blood 103 98 - 107 mmol/L [facility] Gluc Whole Bld 289(H) 65 - 199 mg/dL [facility] Comment:Diabetes: >=200 mg/d L plus symptoms. Lactate WB 1.8 0.5 - 2.2 mmol/L [facility] Blood specimen (specimen) 12/23/2018 9:40 AM EDT 12/23/2018 9:40 AM EDT Louis De La O MD POINT OF CARE TEST ORDERABLES [facility] [place] [address] * (ABNORMAL) Platelet count (12/23/2018 9:35 AM EDT) Platelet 103(L) 145 - 357 x10(3)/mc L [facility] Immature Plt % 2.3 0.0 - 7.4 % [facility] Comment: Limitation of the Immature Platelet Fraction (IPF)-May be less reliable when the platelet count is less than 71p699/uL due to statistical imprecision. The IPF value [...] in a decreased state of production. References: [employer] The Clinical Value of the Immature Platelet Fraction (IPF) in Cell Recovery Document Number [id number] 08/2010 [employer] The Role of the Immature Platelet Fraction (IPF) in the Differential Diagnosis of Thrombocytopenia, Document [id number] V007/25/13 P007/27 Blood specimen (specimen) 12/23/2018 9:35 AM EDT 12/23/2018 9:43 AM EDT Narrative Resulting Agency Comment Spec In Lab Louis De La O MD HEMATOLOGY ORDERABL ES [facility] [place] [address] * (ABNORMAL) Hemoglobin and Hematocrit, blood (12/23/2018 9:35 AM EDT) Hemoglobin 10.9(L) 13.7 - 16.5 gm/dL [facility] Hematocrit 33.1(L) 40.5 - 48.5 % [facility] Comment: This result has been called to KEVIN HOBSON by Onelia Ramírez on 12 23 2018 at 0959, and has been read back. Blood specimen (specimen) 12/23/2018 9:35 AM EDT 12/23/2018 9:43 AM EDT Narrative Resulting Agency Comment Spec In Lab Louis De La O MD HEMATOLOGY ORDERABL ES Performing Organization Address [facility] Co de Phone Number [facility] [place] [address] * Fibrinogen (12/23/2018 9:35 AM EDT) Fibrinogen 254 200 - 393 mg/dL [facility] Comment: Called by: , Read back by: KEVIN BRUNO_, Date/Time:_12/23/18 10:21. A fibrinogen level >100 mg/dL is adequate for hemostasis in most patients without underlying bleeding disorders. Blood specimen (specimen) 12/23/2018 9:35 AM EDT 12/23/2018 9:43 AM EDT Narrative Resulting Agency Comment Spec In Lab Louis De La O MD HEMATOLOGY ORDERABL ES Performing Organization Address [facility] de Phone Number [facility] [place] [address] * (ABNORMAL) BLOOD GAS 2 VENOUS (12/23/2018 9:11 AM EDT) pH, Venous 7.24(Criti kyle) 7.32 - 7.42 [facility] Comment:Noted by gyroscopic instrument mechanic. PCO2, Venous 55(H) 41 - 51 mmHg [facility] PO2, Venous 56(H) 25 - 40 mmHg [facility] Bicarbonate, Venous 23.0 mmol/L [facility] Base Excess, Venous -4.4 mmol/L [facility] Hgb Blood Gas 12.7(L) 13.7 - 16.5 gm/dL [facility] Oxyhemoglobin, Venous 84.1 % [facility] Carboxyhemoglob in, Venous 1.3 % [facility] Comment: Nonsmokers: 0.5-1.5% COHB Smokers: Variable, but usually less than 10% Toxic: 20-30% COHB Lethal: Greater than 60% COHB Methemoglobin, Venous 0.3 <=1.5 % [facility] Na Whole Blood 134(L) 135 - 145 mmol/L [facility] K Whole Blood 4.5 3.5 - 5.0 mmol/L [facility] Comment: Please note: Patients with WBC >100,000 may have falsely elevated Potassium levels. Contact the Clinical Chemistry Laboratory if there are any questions. ICa Whole Blood 1.04(L) 1.15 - 1.33 mmol/L [facility] Comment: Note: ??Total bilirubin higher than 20 mg/dL may lead to falsely low ionized calcium. CL Whole Blood 104 98 - 107 mmol/L [facility] Gluc Whole Bld 171 65 - 199 mg/dL [facility] Comment:Diabetes: >=200 mg/d L plus symptoms Lactate WB 1.1 0.5 - 2.2 mmol/L [facility] Blood Gas Source Venous [facility] Blood specimen (specimen) 12/23/2018 9:11 AM EDT 12/23/2018 9:11 AM EDT Louis De La O MD POINT OF CARE TEST ORDERABLES Performing Organization Address City/State/[facility] Co de Phone Number [facility] [place] [address] * (ABNORMAL) BLOOD GAS 2 ARTERIAL (12/23/2018 9:11 AM EDT) pH, Arterial 7.32(L) 7.35 - 7.45 [facility] PCO2, Arterial 43 35 - 45 mmHg [facility] PO2, Arterial 358(H) 85 - 104 mmHg [facility] Bicarbonate, Arterial 21.6 20.0 - 26.0 mmol/L [facility] Base Excess, Arterial -4.5(L) -3.0 - 3.0 mmol/L [facility] Hgb Blood Gas 12.2(L) 13.7 - 16.5 gm/dL [facility] Oxyhemoglobin, Arterial 97.7(H) 94.0 - 97.0 % [facility] Carboxyhemoglob in, Arterial 1.5 % [facility] Comment: Nonsmokers: 0.5-1.5% COHB Smokers: Variable, but usually less than 10% Toxic: 20-30% COHB Lethal: Greater than 60% COHB Methemoglobin, Arterial 0.3 <=1.5 % [facility] Na Whole Blood 134(L) 135 - 145 mmol/L [facility] K Whole Blood 5.1(H) 3.5 - 5.0 mmol/L [facility] Comment: Please note: Patients with WBC >100,000 may have falsely elevated Potassium levels. Contact the Clinical Chemistry Laboratory if there are any questions. ICa Whole Blood 0.92(Criti kyle) 1.15 - 1.33 mmol/L [facility] Comment: Noted by gyroscopic instrument mechanic. Note: ??Total bilirubin higher than 20 mg/dL may lead to falsely low ionized calcium. CL Whole Blood 104 98 - 107 mmol/L [facility] Gluc Whole Bld 194 65 - 199 mg/dL [facility] Comment:Diabetes: >=200 mg/d L plus symptoms. Lactate WB 1.1 0.5 - 2.2 mmol/L [facility] Blood specimen (specimen) 12/23/2018 9:11 AM EDT 12/23/2018 9:11 AM EDT Louis De La O MD POINT OF CARE TEST ORDERABLES Performing Organization Address City/State/[facility] Co de Phone Number [facility] [place] [address] * (ABNORMAL) BLOOD GAS 2 ARTERIAL (12/23/2018 8:15 AM EDT) pH, Arterial 7.38 7.35 - 7.45 [facility] PCO2, Arterial 39 35 - 45 mmHg [facility] PO2, Arterial 406(H) 85 - 104 mmHg [facility] Bicarbonate, Arterial 22.5 20.0 - 26.0 mmol/L [facility] Base Excess, Arterial -2.9 -3.0 - 3.0 mmol/L [facility] Hgb Blood Gas 14.9 13.7 - 16.5 gm/dL [facility] Oxyhemoglobin, Arterial 98.0(H) 94.0 - 97.0 % [facility] Carboxyhemoglob in, Arterial 1.3 % [facility] Comment: Nonsmokers: 0.5-1.5% COHB Smokers: Variable, but usually less than 10% Toxic: 20-30% COHB Lethal: Greater than 60% COHB Methemoglobin, Arterial 0.3 <=1.5 % [facility] Na Whole Blood 136 135 - 145 mmol/L [facility] K Whole Blood 3.9 3.5 - 5.0 mmol/L [facility] Comment: Please note: Patients with WBC >100,000 may have falsely elevated Potassium levels. Contact the Clinical Chemistry Laboratory if there are any questions. ICa Whole Blood 1.11(L) 1.15 - 1.33 mmol/L [facility] Comment: Note: ??Total bilirubin higher than 20 mg/dL may lead to falsely low ionized calcium. CL Whole Blood 104 98 - 107 mmol/L [facility] Gluc Whole Bld 167 65 - 199 mg/dL [facility] Comment:Diabetes: >=200 mg/d L plus symptoms. Lactate WB 1.2 0.5 - 2.2 mmol/L [facility] FIO2 Art 94 % [facility] Flow Art 1.1 LPM [facility] PF Ratio Art 432 [facility] Temp Art 35.7 Celsius [facility] Blood specimen (specimen) 12/23/2018 8:15 AM EDT 12/23/2018 8:15 AM EDT Louis De La O MD POINT OF CARE TEST ORDERABLES [facility] [place] [address] * (ABNORMAL) Urinalysis without microscopic (12/23/2018 7:20 AM EDT) Glucose, Urine Dipstick Negative Negative mg/dL [facility] Protein, Urine Dipstick 30(A) Negative mg/dL [facility] Bilirubin, Urine Dipstick Negative Negative mg/dL [facility] Comment: Clinical correlation required for positive Urine Bilirubin results as false positive may occur with some drugs and drug related products. If a false positive is suspected a serum total bilirubin should be considered if clinically indicated. Urobilinogen, Urine Dipstick Normal Normal mg/dL [facility] pH, Urn (dipstick) 6.0 5.0 - 8.0 [facility] Blood, Urine Dipstick Negative Negative mg/dL [facility] Ketone, Urine Dipstick Negative Negative mg/dL [facility] Nitrite, Urine Dipstick Negative Negative [facility] Leukocytes, Urine Dipstick Negative Negative mcL [facility] Appearance, Urine Dipstick Clear Clear [facility] Specific [place] Urine Automated 1.021 1.002 - 1.030 [facility] Color, Urine Dipstick Yellow Yellow [facility] Urine specimen (specimen) 12/23/2018 7:20 AM EDT 12/23/2018 8:00 AM EDT Narrative Resulting Agency Comment Spec In Lab Marlo Keith MD URINE ORDERABLES [facility] [place] [address] * EKG 12 Lead (12/23/2018 7:18 AM EDT) Ventricular rate 68 BPM MUSE SYSTEM Atrial Rate 68 BPM MUSE SYSTEM P-R Interval 212 ms MUSE SYSTEM QRS Duration 84 ms MUSE SYSTEM Q-T Interval 376 ms MUSE SYSTEM QTC Calculated (Bezet) 399 ms MUSE SYSTEM Calculated P [place] 57 degrees MUSE SYSTEM Calculated R [place] 4 degrees MUSE SYSTEM Calculated T [place] 69 degrees MUSE SYSTEM INTERPRETATION Sinus rhythm with 1st degree A-V block Inferior infarct (cited on or before 23-FEB-2009) Abnormal ECG When compared with ECG of 23-FEB-2009 16:24, [place] interval has increased Improvement in T wave morphology in anterolateral leads Confirmed by MD Fischer Michael ([id number]) on 12/23/2018 8:52:28 AM MUSE SYSTEM 12/23/2018 7:18 AM EDT 12/23/2018 8:52 AM EDT Louis De La O MD ECG ORDERABLES MUSE SYSTEM * (ABNORMAL) Differential, Automated (12/23/2018 7:10 AM EDT) Neutrophil % 70.5 % [facility] Neutrophil Absolute 5.34 1.70 - 6.10 x10(3)/[facility] Lymph % 14.1 % [facility] Lymphocytes Abs 1.1 0.9 - 3.2 x10(3)/[facility] Monocyte % 12.5 % [facility] Monocyte Abs 1.0(H) 0.3 - 0.9 x10(3)/[facility] Eos % 1.7 % [facility] Eosinophils Abs 0.1 0.0 - 0.4 x10(3)/[facility] Basophil % 1.1 % [facility] Baso Absolute 0.1 0.0 - 0.1 x10(3)/[facility] Immature Gran % 0.10 % [facility] Comment: Immature granulocytes(IG's)percentage and absolute count will include metamyelocytes, myelocytes, and promyelocytes. Blood smears from CBCs yielding IG's will be scanned manually for concordance. If this scan disagrees with the automated IG or if promyelocytes are noted, a manual differential will be performed. Immature Gran Absolute 0.01 0.00 - 0.04 x10(3)/ L [facility] Blood specimen (specimen) 12/23/2018 7:10 AM EDT 12/23/2018 7:18 AM EDT Narrative Resulting Agency Comment Spec In Lab Louis De La O MD HEMATOLOGY ORDERABL ES Performing Organization Address City/[facility]/ZIP Co de Phone Number [facility] [place] [address] * Hemogram (12/23/2018 7:10 AM EDT) White Blood Cell 7.6 4.0 - 9.5 x10(3)/[facility] Red Blood Cell 4.81 4.58 - 5.54 x10(6)/[facility] Hemoglobin 14.2 13.7 - 16.5 gm/dL [facility] Hematocrit 43.2 40.5 - 48.5 % [facility] Mean Cell Volume 89.8 82.9 - 93.1 fL [facility] Mean Cell Hemoglobin 29.5 27.5 - 32.1 [facility] Mean Cell Hemoglobin Concentration 32.9 32.0 - 35.7 gm/dL [facility] Platelet 323 145 - 357 x10(3)/[facility] RDW Standard Deviation 44.7 36.0 - 45.0 [facility] RDW coefficient of variation 13.4 11.4 - 13.8 % [facility] Mean Platelet Volume 9.6 7.6 - 12.9 [facility] NRBC% auto 0.0 % [facility] NRBC Absolute 0.000 0.000 - 0.000 x10(3)/[facility] Blood specimen (specimen) 12/23/2018 7:10 AM EDT 12/23/2018 7:18 AM EDT Narrative Resulting Agency Comment Spec In Lab Louis De La O MD HEMATOLOGY ORDERABL ES Performing Organization Address City/[facility]/ZIP Co de Phone Number [facility] [place] [address] * (ABNORMAL) CMP w/fasting Glucose (12/23/2018 7:10 AM EDT) Glucose Fasting 150(H) 65 - 99 mg/dL [facility] Comment: ?Fasting* Glucose Interpretive Criteria Normal [...] of Diabetes Mellitus, Position Statement from the [employer]. ??Diabetes Care, Volume 33, Supplement 1, Mar 2009 Blood Urea Nitrogen 20 10 - 20 mg/dL [facility] Creatinine 1.27 0.80 - 1.50 mg/dL [facility] Sodium 140 135 - 145 mmol/L [facility] Potassium 4.7 3.5 - 5.0 mmol/L [facility] Comment: Please note: ??Patients with WBC >100,000 may have falsely elevated Potassium levels. ??For accurate Potassium quantification in these patients send serum separator tube (gold top) for subsequent determinations. ??Contact the Clinical Chemistry Laboratory if there are any questions. Chloride 100 98 - 107 mmol/L [facility] Carbon Dioxide 26 22 - 31 mmol/L [facility] Anion Gap 14 5 - 15 mmol/L [facility] Calcium 9.3 8.5 - 10.5 mg/dL [facility] Protein, Total 7.3 6.1 - 8.0 gm/dL [facility] [facility] Albumin 4.3 3.2 - 5.2 gm/dL [facility] Aspartate Aminotransferase 13 0 - 39 unit/L [facility] Alanine Aminotransferase 12 0 - 55 unit/L [facility] Alkaline Phosphatase 60 40 - 130 unit/L [facility] Bilirubin, Total 0.3 0.2 - 1.3 mg/dL [facility] Est Glomerular Filtration Rate 58(L) >=60 mL/min/1. 73 m?? [facility] Comment: The eGFR was calculated using the CKD-EPI equation. As with all creatinine based estimates of kidney function, eGFR values calculated with the CKD-EPI equation are not accurate in patients with acute kidney failure, extremes of body mass or the acutely ill. http://[employer]/[facility]Dnkf eGFR 68 >=60 mL/min/1. 73 m?? [facility] Comment: The eGFR was calculated using the CKD-EPI equation. As with all creatinine based estimates of kidney function, eGFR values calculated with the CKD-EPI equation are not accurate in patients with acute kidney failure, extremes of body mass or the acutely ill. [email or web address]/DHnkf Blood specimen (specimen) 12/23/2018 7:10 AM EDT 12/23/2018 7:18 AM EDT Narrative Resulting Agency Comment Spec In Lab Louis De La O MD CHEMISTRY ORDERABLE S [facility] [place] [address] * POCT Glucose (12/23/2018 6:46 AM EDT) Glucose, POC 132 65 - 199 mg/dL [facility] Comment: Supplemental ranges: <140 mg/dL before meals <180 mg/dL all other times of the day Blood specimen (specimen) 12/23/2018 6:46 AM EDT 12/23/2018 6:46 AM EDT Louis De La O MD POINT OF CARE TEST ORDERABLES Performing Organization Address City/[facility]/ZIP Co de Phone Number [facility] [place] [address] * Prepare RBC (12/23/2018 6:40 AM EDT) Dispensed? 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, unspecified vessel or lesion type 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
--- OUTSIDE RECORDS SUMMARY | 2024-03-13 10:09 | XMS_ITS | Encounter Summary ---
Author Organization [facility] Address [facility] [place] [address] Care Team Providers Care Superintendent Drivers Name Role Phone Lance Antonella ARRIAGA Primary Care Provider +1- [phone] Reason for Visit * Auth/Cert Specialty Diagnoses [...] Expiration Date Visits Re quested Visits Authorized [id number] 1 1 Encounter Details Date Type Department Care Team ([facility] Contact Info) Description 12/23/2018 7:26 AM EDT Anesthesia Event [place] [address] Vira Bañuelos MD [facility] [place] [address] Marlo Baker Anesthesia Record Procedure Summary Procedure [...] (puncture site at groin for EVH); 11/11/21 ([employer] 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 RA#[id number]); 1715 (LDA 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 [...] cephalic vein (lateral side of arm), right; [id number]-pzn-[id number] catheter system; 18 gauge, 1 in length; [...] Bañuelos MD 12/23/18 1445 by Lisa Plaza 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) Percutaneous Central Line - Single Lumen [...] Procedure Summary Date: 12/23/18 Room / Location: [facility] OR [address] [place] [address] MAIN OR Anesthesia Start: 725 Anesthesia Stop: 1116 Procedures: @CABG, USING ARTERIAL GRAFT;SINGLE ARTERIAL GRAFT (WRVU 33.75) (N/A Chest) ENDOSCOPIC HARVEST VEIN(S) FOR CABG (WRVU 0.31) (N/A Leg) @CABG, VENOUS & ARTERIAL GRAFT;SINGLE VEIN GRAFT (WRVU 3.61) (N/A Chest) Diagnosis: Coronary artery disease of [place] heart with stable angina pectoris, unspecified vessel or lesion type (CAD) Surgeon: Louis De La O MD Responsible Provider: Vira Bañuelos MD Anesthesia Type: general ASA Status: 3 All Anesthesia Providers: Anesthesiologist: Vira Bañuelos MD Student Nurse Prescription Eyeglass Maker: Marlo Baker Vitals Value Taken Time BP Temp 36.9 ??C (98.42 ??F) 12/23/2018 6:28 PM Pulse 86 12/23/2018 6:28 PM Resp 18 12/23/2018 6:28 PM SpO2 98 % 12/23/2018 6:28 PM Pain Level 2 12/23/2018 6:00 PM Vitals shown include unvalidated device data. Patient Location: [facility] Level of Consciousness: Awake and Alert Pain [...] CIS - Coronary artery disease inferior [facility]I [facility] 02/23/09: proximal RCA, RECORDS MANAGEMENT ENGINEER LAD. BMS to prox. RCA, BMS [...] blood products. Plan discussed with attending and AUTOMOTIVE PARTS SALESPERSON. PAT Clinic Note documented in this encounter [...] mg documented in this encounter Care Teams Superintendent Drivers Relationship Specialty Start Date End Date Antonella Lucas PA [address] [place] [address] PCP - General Family Medicine 05/06/17 11/01/19 documented as of this encounter
--- OUTSIDE RECORDS SUMMARY | 2024-03-13 10:09 | XMS_ITS | Encounter Summary ---
Author Organization [facility] [place] [address] Care Team Providers Care Gas Torch Solderer Name Role Phone Antonella Lucas Primary Care Provider +1- [phone] Encounter Details Date Type Department Care Team (Late st Contact Info) Description 12/21/2018 Orders Only Cardiology at [address] [address] Shavon Dorman, RN ASCVD (arteriosclerotic cardiovascular disease) [...] Adames ? (Age): 1950(68y) Med Rec#: ? [id number] ?Sex: ?M ? Site Loc: ? Ht / Wt: ??(cm)/ (kg) ? Pt. Loc: ? Study Date: ?? 12/23/2018 ?Pt. Type: Tape: ? Reading: Vira Bañuelos ([id number]) Farm Loan Inspector: SOLOMON Diagnosis: SUMMARY: 1. Intraoperative DELISA performed [...] 12/24/2018 15:21:53 Images reviewed and interpretation verified [facility] Cardiac Ultrasound Laboratory Procedure Note Vira Bañuelos MD - 12/24/2018 Procedure: Transesophageal Echocardiogram Patient: POLO FUENTES(Age): 1950(68y) [facility] Rec#: [id number] Sex: M Site Loc: Ht / Wt: (cm)/ (kg) Pt. Loc: Study Date: 12/23/2018 Pt. Type: Tape: Reading: Vira Bañuelos ([id number]) Farm Loan Inspector: SOLOMON Diagnosis: SUMMARY: 1. Intraoperative DELISA performed [...] 12/24/2018 15:21:53 Images reviewed and interpretation verified [facility] Cardiac Ultrasound Laboratory Unknown ECHO ORDERABLES documented in this encounter Visit Diagnoses Diagnosis ASCVD (arteriosclerotic cardiovascular disease) Unspecified cardiovascular disease documented in this encounter Care Teams Gas Torch Solderer Relationship Specialty Start Date End Date Antonella Lucas PA [address] [place] [address] PCP - General Family Medicine 05/06/17 11/01/19 documented as of this encounter
--- OUTSIDE RECORDS SUMMARY | 2024-03-13 10:09 | XMS_ITS | Encounter Summary ---
Author Organization [facility] [place] [address] Care Team Providers Care Guest Experience Representative Name Role Phone Antonella Lucas Primary Care Provider +1- [phone] Encounter Details Date Type Department Care Team (Late st Contact Info) Description 12/21/2018 Orders Only Cardiology at [address] [address] Shavon Dorman, RN ASCVD (arteriosclerotic cardiovascular disease) [...] EDT) Glucose, Urine Dipstick Negative Negative mg/dL [facility] Protein, Urine Dipstick 30(A) Negative mg/dL [facility] Bilirubin, Urine Dipstick Negative Negative mg/dL [facility] Comment: Clinical correlation required for positive Urine Bilirubin results as false positive may occur with some drugs and drug related products. If a false positive is suspected a serum total bilirubin should be considered if clinically indicated. Urobilinogen, Urine Dipstick Normal Normal mg/dL [facility] pH, Urn (dipstick) 6.0 5.0 - 8.0 [facility] Blood, Urine Dipstick Negative Negative mg/dL [facility] Ketone, Urine Dipstick Negative Negative mg/dL [facility] Nitrite, Urine Dipstick Negative Negative [facility] Leukocytes, Urine Dipstick Negative Negative mcL [facility] Appearance, Urine Dipstick Clear Clear [facility] Specific [place] Urine Automated 1.021 1.002 - 1.030 [facility] Color, Urine Dipstick Yellow Yellow [facility] Urine specimen (specimen) 12/23/2018 7:20 AM EDT 12/23/2018 8:00 AM EDT Narrative Resulting Agency Comment Spec In Lab Marlo Keith MD URINE ORDERABLES Performing Organization Address City/State/[facility] Co de Phone Number [facility] [place] [address] documented in this encounter Visit Diagnoses Diagnosis ASCVD (arteriosclerotic cardiovascular disease) Unspecified cardiovascular disease documented in this encounter Care Teams Guest Experience Representative Relationship Specialty Start Date End Date Antonella Lucas PA [address] [place] [address] PCP - General Family Medicine 05/06/17 11/01/19 documented as of this encounter
--- OUTSIDE RECORDS SUMMARY | 2024-03-13 10:09 | XMS_ITS | Encounter Summary ---
Author Organization [facility] Address [facility] [place] [address] Care Team Providers Care Divemaster Name Role Phone Antonella Lucas Primary Care Provider +1- [phone] Reason for Visit * Auth/Cert Specialty Diagnoses [...] Expiration Date Visits Re quested Visits Authorized [id number] 1 1 Encounter Details Date Type Department Care Team (Latest Contact Info) Description 12/21/2018 10:15 AM EDT - 12/21/2018 11:59 PM EDT Hospital Encounter XRay at [address] [place] [address] Louis De La O MD Coronary artery disease of [place] heart with stable angina pectoris, unspecified vessel [...] 10:29 AM EDT Coronary artery disease of [place] heart with stable angina pectoris, unspecified vessel [...] Visit Diagnoses Diagnosis Coronary artery disease of [place] heart with stable angina pectoris, unspecified vessel or lesion type documented in this encounter Care Teams Divemaster Relationship Specialty Start Date End Date Antonella Lucas PA [address] [place] [address] PCP - General Family Medicine 05/06/17 11/01/19 documented as of this encounter
--- OUTSIDE RECORDS SUMMARY | 2024-03-13 10:09 | XMS_ITS | Encounter Summary ---
Author Organization [facility] Address [facility] [place] [address] Care Team Providers Care Transfer Car Operator Drier Name Role Phone Antonella Lucas Primary Care Provider +1- [phone] Reason for Visit * Auth/Cert Specialty Diagnoses [...] Expiration Date Visits Re quested Visits Authorized [id number] 1 1 Encounter Details Date Type Department Care Team (Latest Contact Info) Description 12/21/2018 10:00 AM EDT [place] [address] Coronary artery disease of [place] heart with stable angina pectoris, unspecified vessel [...] 10:08 AM EDT Coronary artery disease of [place] heart with stable angina pectoris, unspecified vessel or lesion type DIFFERENTIAL, AUTOMATED Routine 12/21/2018 10:08 AM EDT Coronary artery disease of [place] heart with stable angina pectoris, unspecified vessel or lesion type HC ANTIBODY DETECTION,CAPTURE-R Routine 12/21/2018 10:08 AM EDT Coronary artery disease of [place] heart with stable angina pectoris, unspecified vessel or lesion type ABO/RH TYPING Routine 12/21/2018 10:08 AM EDT Coronary artery disease of [place] heart with stable angina pectoris, unspecified vessel or lesion type HC CBC,PLT & AUTO DIFF Routine 12/21/2018 10:08 AM EDT Coronary artery disease of [place] heart with stable angina pectoris, unspecified vessel or lesion type ANTIBODY SCREEN Routine 12/21/2018 10:08 AM EDT Coronary artery disease of [place] heart with stable angina pectoris, unspecified vessel or lesion type HEPATIC FUNCTION PANEL Routine 12/21/2018 10:08 AM EDT BASIC METABOLIC PANEL Routine 12/21/2018 10:08 AM EDT Coronary artery disease of [place] heart with stable angina pectoris, unspecified vessel or lesion type documented in this encounter Results * Hepatic Function Panel (12/21/2018 10:08 AM EDT) Protein, Total 7.7 6.1 - 8.0 gm/dL [facility] Albumin 4.4 3.2 - 5.2 gm/dL [facility] Aspartate Aminotransferase 14 0 - 39 unit/L [facility] Alanine Aminotransferase 12 0 - 55 unit/L [facility] Alkaline Phosphatase 63 40 - 130 unit/L [facility] Bilirubin, Total 0.3 0.2 - 1.3 mg/dL [facility] Bilirubin, Direct 0.1 0.0 - 0.3 mg/dL [facility] Blood specimen (specimen) Venous Draw / Unknown 12/21/2018 10:08 AM EDT 12/21/2018 10:15 AM EDT Narrative Resulting Agency Comment Spec In Lab Marlo Keith MD CHEMISTRY ORDERABL ES Performing Organization Address [facility]/ZIP Co de Phone Number [facility] [place] [address] * ABORH Recheck Status (12/21/2018 10:08 AM EDT) Pathologist [facility] [place] ABORH Type Recheck Completed [facility] Blood specimen (specimen) 12/21/2018 10:08 AM EDT 12/21/2018 10:09 AM EDT Narrative Resulting Agency Comment Spec In Lab Louis De La O MD BLOOD BANK LAB ORDE RABLES Performing Organization Address City/[facility]/ZIP Co de Phone Number [facility] [place] [address] * (ABNORMAL) Differential, Automated (12/21/2018 10:08 AM EDT) Pathologist [facility] [place] Neutrophil % 72.3 % [facility] Neutrophil Absolute 6.11(H) 1.70 - 6.10 x10(3)/mc L [facility] Lymph % 14.1 % [facility] Lymphocytes Abs 1.2 0.9 - 3.2 x10(3)/mc L [facility] Monocyte % 11.2 % [facility] Monocyte Abs 1.0(H) 0.3 - 0.9 x10(3)/mc L [facility] Eos % 1.4 % [facility] Eosinophils Abs 0.1 0.0 - 0.4 x10(3)/mc L [facility] Basophil % 0.8 % [facility] Baso Absolute 0.1 0.0 - 0.1 x10(3)/mc L [facility] Immature Gran % 0.20 % [facility] Comment: Immature granulocytes(IG's)percentage and absolute count will include metamyelocytes, myelocytes, and promyelocytes. Blood smears from CBCs yielding IG's will be scanned manually for concordance. If this scan disagrees with the automated IG or if promyelocytes are noted, a manual differential will be performed. Immature Gran Absolute 0.02 0.00 - 0.04 x10(3)/mc L [facility] Blood specimen (specimen) 12/21/2018 10:08 AM EDT 12/21/2018 10:15 AM EDT Narrative Resulting Agency Comment Spec In Lab Louis De La O MD HEMATOLOGY ORDERABL ES [facility] [place] [address] * (ABNORMAL) Hemogram (12/21/2018 10:08 AM EDT) White Blood Cell 8.5 4.0 - 9.5 x10(3)/mc L [facility] Red Blood Cell 5.34 4.58 - 5.54 x10(6)/mc L [facility] Hemoglobin 15.9 13.7 - 16.5 gm/dL [facility] Hematocrit 48.4 40.5 - 48.5 % [facility] Mean Cell Volume 90.6 82.9 - 93.1 fL [facility] Mean Cell Hemoglobin 29.8 27.5 - 32.1 pg [facility] Mean Cell Hemoglobin Concentration 32.9 32.0 - 35.7 gm/dL [facility] Platelet 315 145 - 357 x10(3)/mc L [facility] RDW Standard Deviation 45.9(H) 36.0 - 45.0 fL [facility] RDW coefficient of variation 13.6 11.4 - 13.8 % [facility] Mean Platelet Volume 9.1 7.6 - 12.9 fL [facility] NRBC% auto 0.0 % [facility] NRBC Absolute 0.000 0.000 - 0.000 x10(3)/mc L [facility] Blood specimen (specimen) 12/21/2018 10:08 AM EDT 12/21/2018 10:15 AM EDT Narrative Resulting Agency Comment Spec In Lab Louis De La O MD HEMATOLOGY ORDERABL ES Performing Organization Address [facility]/ZIP Co de Phone Number [facility] [place] [place] [address] * Antibody screen (12/21/2018 10:08 AM EDT) [facility] Ab Screen Interp Negative [facility] Expires at [id number] on: 12/26/2018 [facility] Blood specimen (specimen) 12/21/2018 10:08 AM EDT 12/21/2018 10:09 AM EDT Narrative Resulting Agency Comment Spec In Lab Louis De La O MD BLOOD BANK LAB ORDE KARLY Performing Organization Address [facility]/ZIP Co de Phone Number [facility] [place] [address] * ABO/Rh Typing (12/21/2018 10:08 AM EDT) [facility] ABORH Type A Pos [facility] Blood specimen (specimen) 12/21/2018 10:08 AM EDT 12/21/2018 10:09 AM EDT Narrative Resulting Agency Comment Spec In Lab Louis De La O MD BLOOD BANK LAB ORDDarnell BRANDT Performing Organization Address City/[facility]/ZIP Co de Phone Number [facility] [place] [address] * (ABNORMAL) Basic Metabolic Panel (non-fasting) (12/21/2018 10:08 AM EDT) Glucose 138 65 - 199 mg/dL [facility] Comment:Diabetes: >=200 mg/d L plus symptoms Blood Urea Nitrogen 25(H) 10 - 20 mg/dL [facility] Creatinine 1.33 0.80 - 1.50 mg/dL [facility] Sodium 138 135 - 145 mmol/L [facility] Potassium 4.6 3.5 - 5.0 mmol/L [facility] Comment: Please note: ??Patients with WBC >100,000 may have falsely elevated Potassium levels. ??For accurate Potassium quantification in these patients send serum separator tube (gold top) for subsequent determinations. ??Contact the Clinical Chemistry Laboratory if there are any questions. Chloride 101 98 - 107 mmol/L [facility] Carbon Dioxide 25 22 - 31 mmol/L [facility] Anion Gap 12 5 - 15 mmol/L [facility] Calcium 9.5 8.5 - 10.5 mg/dL [facility] Est Glomerular Filtration Rate 55(L) >=60 mL/min/1. 73 m?? [facility] Comment: The eGFR was calculated using the CKD-EPI equation. As with all creatinine based estimates of kidney function, eGFR values calculated with the CKD-EPI equation are not accurate in patients with acute kidney failure, extremes of body mass or the acutely ill. http://[employer]/[facility]ILL[facility]ATERnkf eGFR 64 >=60 mL/min/1. 73 m?? [facility] Comment: The eGFR was calculated using the CKD-EPI equation. As with all creatinine based estimates of kidney function, eGFR values calculated with the CKD-EPI equation are not accurate in patients with acute kidney failure, extremes of body mass or the acutely ill. http://[employer]/[facility]ATERnkf Blood specimen (specimen) 12/21/2018 10:08 AM EDT 12/21/2018 10:15 AM EDT Narrative Resulting Agency Comment Spec In Lab Louis De La O MD CHEMISTRY ORDERABLE S [facility] [place] [address] documented in this encounter Visit Diagnoses Diagnosis Coronary artery disease of [place] heart with stable angina pectoris, unspecified vessel or lesion type documented in this encounter Care Teams Transfer Car Operator Drier Relationship Specialty Start Date End Date Antonella Lucas PA [address] [place] [address] PCP - General Family Medicine 05/06/17 11/01/19 documented as of this encounter
--- OUTSIDE RECORDS SUMMARY | 2024-03-13 10:09 | XMS_ITS | Encounter Summary ---
Author Organization [facility] [place] [address] Care Team Providers Care Production Control Pegboard Clerk Name Role Phone Antonella Lucas Primary Care Provider [phone]- [phone] Reason for Visit * Auth/Cert Specialty Diagnoses [...] Expiration Date Visits Re quested Visits Authorized [id number] 1 1 Encounter Details Date Type Department Care Team ([facility] Contact Info) Description 12/21/2018 8:00 AM EDT Office [place] [address] Louis De La O MD Coronary artery disease of [place] heart with stable angina pectoris, unspecified vessel [...] [facility] now had a positive stress [...] CIS - Coronary artery disease inferior [facility] 02/23/09: proximal RCA, DESK DIRECTOR LAD. BMS to prox. RCA, BMS to [...] on phone: None Gets together: None Attends amish service: None Active member of club or [...] 8:50 AM EDT Coronary artery disease of [place] heart with stable angina pectoris, unspecified vessel or lesion type @CABG,USING ARTERIAL GRAFT;SINGLE ARTERIAL GRAFT Routine 12/21/2018 8:50 AM EDT Coronary artery disease of [place] heart with stable angina pectoris, unspecified vessel [...] EDT) Glucose 138 65 - 199 mg/dL [facility] Comment:Diabetes: >=200 mg/d L plus symptoms Blood Urea Nitrogen 25(H) 10 - 20 mg/dL [facility] Creatinine 1.33 0.80 - 1.50 mg/dL [facility] Sodium 138 135 - 145 mmol/L [facility] Potassium 4.6 3.5 - 5.0 mmol/L [facility] Comment: Please note: ??Patients with WBC >100,000 may have falsely elevated Potassium levels. ??For accurate Potassium quantification in these patients send serum separator tube (gold top) for subsequent determinations. ??Contact the Clinical Chemistry Laboratory if there are any questions. Chloride 101 98 - 107 mmol/L [facility] Carbon Dioxide 25 22 - 31 mmol/L [facility] Anion Gap 12 5 - 15 mmol/L [facility] Calcium 9.5 8.5 - 10.5 mg/dL [facility] Est Glomerular Filtration Rate 55(L) >=60 mL/min/1. 73 m?? [facility] Comment: The eGFR was calculated using the CKD-EPI equation. As with all creatinine based estimates of kidney function, eGFR values calculated with the CKD-EPI equation are not accurate in patients with acute kidney failure, extremes of body mass or the acutely ill. [email or web address]/[facility] eGFR 64 >=60 mL/min/1. 73 m?? [facility] Comment: The eGFR was calculated using the CKD-EPI equation. As with all creatinine based estimates of kidney function, eGFR values calculated with the CKD-EPI equation are not accurate in patients with acute kidney failure, extremes of body mass or the acutely ill. http://Infracommerce/[facility] Blood specimen (specimen) 12/21/2018 10:08 AM EDT 12/21/2018 10:15 AM EDT Narrative Resulting Agency Comment Spec In Lab Louis De La O MD CHEMISTRY ORDERABLE S [facility] [place] [address] documented in this encounter Visit Diagnoses Diagnosis Coronary artery disease of [place] heart with stable angina pectoris, unspecified vessel or lesion type Coronary artery disease of [place] heart with stable angina pectoris, unspecified vessel or lesion type documented in this encounter Care Teams Production Control Pegboard Clerk Relationship Specialty Start Date End Date Antonella Lucas PA [address] [place] [address] PCP - General Family Medicine 05/06/17 11/01/19 documented as of this encounter
--- OUTSIDE RECORDS SUMMARY | 2024-03-13 10:09 | XMS_ITS | Encounter Summary ---
Author Organization [facility] [place] [address] Care Team Providers Care Finished Carpet Inspector Name Role Phone Cleomarisamignon Cathiedayna Luly ARRIAGA Primary Care Provider [phone]- [phone] Encounter Details Date Type Department Care Team (Latest Contact Info) Description 12/21/2018 Unscheduled Encounter Cardiology at [address] [address] Shavon Dorman RN ASCVD (arteriosclerotic cardiovascular disease) [...] INJURY (DANIELA) FOLLOWING CARDIAC SURGERY STUDY NUMBER: [id number] Phase 3 for Prevention of MAKE in Subjects at High Risk for DANIELA Following Cardiac Surgery Principle Gradall Operator: Marol Keith MD, MS I had the pleasure of meeting with Bear Gamboa to review the [id number] trial. Bear Gamboa was accompanied by two friends. Following the determination that this potential participant did not haveany obvious evidence of clinical exclusion to the QRK trial, the subject was provided with a written informed consent version KAB186.2, Approval date and was given adequate time for review of the consent. The purpose, procedures, risk, potential benefits of the study, as well as alternatives to participation were reviewed and questions were answered. The subject denies participation in concurrent interventional drug or device trials. The subject was given the opportunity to discuss the investigational nature of the product with the gang investigator. The subject return verbalizes understanding that [...] disease documented in this encounter Care Teams Finished Carpet Inspector Relationship Specialty Start Date End Date Antonella Lucas PA [address] [place] [address] PCP - General Family Medicine 05/06/17 11/01/19 documented as of this encounter
--- OUTSIDE RECORDS SUMMARY | 2024-03-13 10:10 | XMS_ITS | Encounter Summary ---
Author Organization [facility] [place] [address] Care Team Providers Care Java Software Engineer Name Role Phone Antonella Lucas Primary Care Provider [phone]- [phone] Encounter Details Date Type Department Care Team (Late st Contact Info) Description 12/08/2018 10:00 AM EDT - 12/08/2018 11:00 AM EDT Surgery [place] [address] Irwin Fischer MD [facility] [place] [address] [place] [address] CARDIAC CATHETERIZATION Social History Tobacco Use Types [...] by your doctor, do not take any eqyh-fah-ltanlvw medicines or herbal preparations without first discussing this with your doctor or pharmacist. There is the possibility of side effect and interactions when these are combined. Follow up Care Who to Call with Questions or Problems If there are any questions or problems that you think might be related to your cardiac cath or angioplasty, contact the cross country and track and field coach contact lens molder by calling [facility] at . documented in this [...] man with a history of CAD (inferior [place] 2009 s/p CK x2 to mid RCA [...] is in the chart. Willam Evans MD Elocution Teacher PGY-4 12/08/2018 documented in this encounter Miscellaneous Notes * Brief Op Note - Irwin Fischer MD - 12/08/2018 3:48 PM EDT Brief Operative Note Patient Name: Bear Gamboa : [id number] MR#: [id number] Case Date: 12/08/2018 Surgeon: Surgeon(s) and Role: * Irwin Fischer MD - Primary * Orville Blair MD - Fellow Preoperative diagnosis: ASCVD (arteriosclerotic cardiovascular disease) [I25.10] Postoperative diagnosis: ASCVD (arteriosclerotic cardiovascular disease) [I25.10] Procedure(s) (LRB): CARDIAC CATHETERIZATION (N/A) CORONARY ANGIOGRAPHY; W LHC,POSSIBLE PCI (N/A) Findings: LM - Mild diffuse disease; 50% proximal stenosis in the Ramus Intermedius LAD - 100% mid-vessel SET ILLUSTRATOR; 50% ostial D2 stenosis; distal vessel receives [...] Glucose, POC 133 65 - 199 mg/dL [facility] Comment: Supplemental ranges: <140 mg/dL before meals <180 mg/dL all other times of the day Blood specimen (specimen) 12/08/2018 10:34 AM EDT 12/08/2018 10:34 AM EDT Irwin Fischer MD POINT OF CARE TEST O RDERABLES [facility] [place] [address] documented in this encounter Visit Diagnoses Diagnosis [...] 1042 (New Bag - Prov ider: Sakina Laurent, MARTIN) sodium chloride 0.9% infusion 150 mL/hr, Intravenous, [...] cannulation) documented in this encounter Care Teams Java Software Engineer Relationship Specialty Start Date End Date Antonella Lucas PA [address] [place] [address] PCP - General Family Medicine 05/06/17 11/01/19 documented as of this encounter
--- OUTSIDE RECORDS SUMMARY | 2024-03-13 10:10 | XMS_ITS | Encounter Summary ---
[place] [address] Care Team Providers Care Veterans Contact Representative Name Role Phone Uma Asif MD Primary Care Provider [phone] Reason for Visit * Reason Comments Follow-up Coronary Artery Disease Encounter Details Date Type Department Care Team (Latest Contact Info) Description 08/08/2015 8:00 AM EDT Office Visit Cardiology at [address] [address] Simon Loyd MD Atherosclerosis of [place] coronary artery of [place] heart without angina pectoris Social History Tobacco [...] this encounter Visit Diagnoses Diagnosis Atherosclerosis of [place] coronary artery of [place] heart without angina pectoris documented in this encounter Care Teams Veterans Contact Representative Relationship Specialty Start Date End Date Uma Asif MD [address] [place] [address] PCP - General 02/05/10 05/05/17 documented as of this encounter
--- OUTSIDE RECORDS SUMMARY | 2024-03-13 10:10 | XMS_ITS | Encounter Summary ---
Author Organization [facility] [place] [address] Care Team Providers Care Compressed Gas Tester Name Role Phone Uma Asif MD Primary Care Provider [phone] Reason for Visit * Reason Comments Medication Refill Encounter Details Date Type Department Care Team (Late st Contact Info) Description 02/24/2012 Refill Cardiology at [address] [address] Simon Loyd MD Medication Refill Social History Tobacco Use Types [...] hyperlipidemia documented in this encounter Care Teams Compressed Gas Tester Relationship Specialty Start Date End Date Uma Asif MD [address] [place] [address] PCP - General 02/05/10 05/05/17 documented as of this encounter
--- OUTSIDE RECORDS SUMMARY | 2024-03-13 10:10 | XMS_ITS | Encounter Summary ---
[place] [address] Care Team Providers Care Mopper Name Role Phone Uma Asif MD Primary Care Provider [phone] Reason for Visit * Reason Comments Coronary Artery Disease hyperlipidemia Encounter Details Date Type Department Care Team ([facility] st Contact Info) Description 06/14/2012 7:40 AM EDT Follow-Up Cardiology at [address] [address] Simon Loyd MD CAD (coronary artery disease) (Primary Dx) Discharge [...] for symptoms of chest pain or discomfort. [phone]. documented in this encounter Progress Notes * [...] Coronary atherosclerosis of unspecified type of vessel, [place] or graft documented in this encounter Care Teams Mopper Relationship Specialty Start Date End Date Uma Asif MD [address] [place] [address] PCP - General 02/05/10 05/05/17 documented as of this encounter
--- OUTSIDE RECORDS SUMMARY | 2024-03-13 10:10 | XMS_ITS | Encounter Summary ---
Author Organization [facility] [place] [address] Care Team Providers Care Placement Interviewer Name Role Phone Lance Antonella ARRIAGA Primary Care Provider [phone]- [phone] Encounter Details Date Type Department Care Team (Late st Contact Info) Description 09/07/2018 12:00 PM EDT Ancillary Procedure Radiology Library at [facility], [place] [place] [address] Celine Finley MD [facility] [place] [address] Social History Tobacco Use Types Packs/Day Years [...] DX Shoulder (09/07/2018 11:54 AM EDT) Narrative [facility] - 09/07/2018 11:54 AM EDT This exam is auto-finalizing. It's purpose is for storage only. Celine Finley MD IMG FILM LIBRARY ORD ERABLES Performing Organization Address City/State/[facility] Co de Phone Number [facility] [place], [place] documented in this encounter Visit Diagnoses Not on filedocumented in this encounter Care Teams Placement Interviewer Relationship Specialty Start Date End Date Antonella Lucas PA [address] [place] [address] PCP - General Family Medicine 05/06/17 11/01/19 documented as of this encounter
--- OUTSIDE RECORDS SUMMARY | 2024-03-13 10:10 | XMS_ITS | Encounter Summary ---
[place] [address] Care Team Providers Care Sort Line Worker Name Role Phone Uma Asif MD Primary Care Provider [phone] Reason for Visit * Reason Comments Coronary Artery Disease Encounter Details Date Type Department Care Team (Late st Contact Info) Description 06/17/2011 9:10 AM EDT Follow-Up Cardiology at [address] [address] Yaniv Sanches MD CAD (coronary artery disease) (Primary Dx) [...] Coronary atherosclerosis of unspecified type of vessel, [place] or graft documented in this encounter Care Teams Sort Line Worker Relationship Specialty Start Date End Date Uma Asif MD [address] [place] [address] PCP - General 02/05/10 05/05/17 documented as of this encounter
--- OUTSIDE RECORDS SUMMARY | 2024-03-13 10:10 | XMS_ITS | Encounter Summary ---
[place] [address] Care Team Providers Care Helper Coordinator Name Role Phone Uma Asif MD Primary Care Provider [phone] Reason for Visit * Reason Comments Follow-up Coronary Artery Disease Encounter Details Date Type Department Care Team ([facility] Contact Info) Description 07/25/2014 2:40 PM EDT Follow-Up Cardiology at [address] [address] Simon Loyd MD Atherosclerotic heart disease of [place] coronary artery without angina pectoris Discharge Disposition: [...] (260 lb 6.4 oz) BMI 34.36 kg/m2 UwH668% Chest - scattered inspiratory squeaks Cor - [...] Visit Diagnoses Diagnosis Atherosclerotic heart disease of [place] coronary artery without angina pectoris Coronary atherosclerosis of [place] coronary artery documented in this encounter Care Teams Helper Coordinator Relationship Specialty Start Date End Date Uma Asif MD [address] [place] [address] PCP - General 02/05/10 05/05/17 documented as of this encounter
--- OUTSIDE RECORDS SUMMARY | 2024-03-13 10:10 | XMS_ITS | Encounter Summary ---
Author Organization [facility] [place] [address] Care Team Providers Care Childcare Aide Name Role Phone Antonella Lucas Primary Care Provider [phone] Encounter Details Date Type Department Care Team (Latest Contact Info) Description 12/08/2018 5:48 AM EDT - 12/08/2018 5:50 PM EDT Hospital Encounter [place] [address] Irwin Fischer MD [facility] [place] [address] [place] [address] Discharge Disposition: Home Social History Tobacco Use [...] by your doctor, do not take any uucn-gie-rkbcsaz medicines or herbal preparations without first discussing this with your doctor or pharmacist. There is the possibility of side effect and interactions when these are combined. Follow up Care Who to Call with Questions or Problems If there are any questions or problems that you think might be related to your cardiac cath or angioplasty, contact the nitroglycerin supervisor police communications operator by calling [facility] at . documented in this encounter [...] man with a history of CAD (inferior [place] 2009 s/p CK x2 to mid RCA [...] is in the chart. Willam Evans MD Senior Supplier Quality Engineer PGY-4 12/08/2018 documented in this encounter Miscellaneous Notes * Brief Op Note - Irwin Fischer MD - 12/08/2018 3:48 PM EDT Brief Operative Note Patient Name: Bear Gamboa : [id number] MR#: [id number] Case Date: 12/08/2018 Surgeon: Surgeon(s) and Role: * Irwin Fischer MD - Primary * Orville Blair MD - Fellow Preoperative diagnosis: ASCVD (arteriosclerotic cardiovascular disease) [I25.10] Postoperative diagnosis: ASCVD (arteriosclerotic cardiovascular disease) [I25.10] Procedure(s) (LRB): CARDIAC CATHETERIZATION (N/A) CORONARY ANGIOGRAPHY; W LHC,POSSIBLE PCI (N/A) Findings: LM - Mild diffuse disease; 50% proximal stenosis in the Ramus Intermedius LAD - 100% mid-vessel CLINICAL LIAISON; 50% ostial D2 stenosis; distal vessel receives [...] * POCT Glucose (12/08/2018 10:34 AM EDT) [facility] Signature Glucose, POC 133 65 - 199 mg/dL [facility] Comment: Supplemental ranges: <140 mg/dL before meals <180 mg/dL all other times of the day Blood specimen (specimen) 12/08/2018 10:34 AM EDT 12/08/2018 10:34 AM EDT Irwin Fischer MD POINT OF CARE TEST O RDERABLES [facility] [place] [address] documented in this encounter Visit Diagnoses Not [...] cannulation) documented in this encounter Care Teams Childcare Aide Relationship Specialty Start Date End Date Antonella Lucas [address] [place] [address] PCP - General Family Medicine 05/06/17 11/01/19 documented as of this encounter
--- OUTSIDE RECORDS SUMMARY | 2024-03-13 10:10 | XMS_ITS | Encounter Summary ---
[place] [address] Care Team Providers Care Radio Tower Technician Name Role Phone Uma Asif MD Primary Care Provider Encounter Details Date Type Department Care Team (Late st Contact Info) Description 03/18/2010 9:41 AM EST - 03/18/2010 11:59 PM [facility] Hospital Encounter [place] [id number] Social History Tobacco Use Types Packs/Day Years [...] on filedocumented in this encounter Care Teams Radio Tower Technician Relationship Specialty Start Date End Date Uma Asif MD [address] [place] [address] PCP - General 02/05/10 05/05/17 documented as of this encounter
--- OUTSIDE RECORDS SUMMARY | 2024-03-13 10:10 | XMS_ITS | Encounter Summary ---
Author Organization [facility] [place] [address] Care Team Providers Care Information Director Name Role Phone Antonella Lucas Primary Care Provider [phone] Encounter Details Date Type Department Care Team (Late st Contact Info) Description 09/07/2018 Telephone [place] [address] Paige Hartley, RN Social History Tobacco Use [...] LEI Sands as Dr Ankit Sanchez, at [facility] ED is seeking input re Mr Gamboa [...] on filedocumented in this encounter Care Teams Information Director Relationship Specialty Start Date End Date Antonella Lucas PA [address] [place] [address] PCP - General Family Medicine 05/06/17 11/01/19 documented as of this encounter
--- OUTSIDE RECORDS SUMMARY | 2024-03-13 10:10 | XMS_ITS | Encounter Summary ---
Author Organization [facility] Address [facility] [place] [address] Care Team Providers Care Agency Appointments Supervisor Name Role Phone Lance Antonella ARRIAGA Primary Care Provider [phone] Encounter Details Date Type Department Care Team (Late st Contact Info) Description 09/07/2018 11:10 AM EDT Ancillary Procedure Radiology Library at [facility], [place], [place] [address] Celine Finley MD [facility] [place] [address] Social History Tobacco Use Types Packs/Day Years [...] And Spine (09/07/2018 11:08 AM EDT) Narrative [facility] - 09/07/2018 11:08 AM EDT This exam is auto-finalizing. It's purpose is for storage only. Celine Finley MD IMG FILM LIBRARY ORD ERABLES [facility] [place], [place] documented in this encounter Visit Diagnoses Not on filedocumented in this encounter Care Teams Agency Appointments Supervisor Relationship Specialty Start Date End Date Antonella Lucas PA [address] [place] [address] PCP - General Family Medicine 05/06/17 11/01/19 documented as of this encounter
--- OUTSIDE RECORDS SUMMARY | 2024-03-13 10:10 | XMS_ITS | Encounter Summary ---
[place] [address] Care Team Providers Care Heart Specialist Name Role Phone Antonella Lucas Primary Care Provider [phone] Reason for Visit * Consultation (Routine) - Closed Specialty Diagnoses / Procedures Referred By Nataliia hurt Referred To Contact Nephrology Diagnoses Elevated creatinine Antonella Lucas PA [address] [place] [address] [facility] [address] [place] [id number] Referral ID Status Reason Start Date Expiration Date V isits Requested Visits Authorized [id number] Closed Consult, Test & Treat Connection Center 05/08/2017 05/08/2018 1 1 Encounter Details Date Type Department Care Team (Latest Contact Info) Description 08/12/2017 3:00 PM EDT Office Visit [place] [address] Ibrahima Lux MD CKD (chronic kidney disease) stage 3, GFR [...] April, the patient had an ultrasound at 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 [...] The patient had a recent ultrasound at [facility] showing cysts, the pictures are not available [...] 4:16 PM EDT) Neutrophil % 63.7 % [facility] Neutrophil Absolute 5.70 1.70 - 6.10 x10(3)/ L [facility] Lymph % 20.0 % [facility] Lymphocytes Abs 1.8 0.9 - 3.2 x10(3)/ L [facility] Monocyte % 12.4 % [facility] Monocyte Abs 1.1(H) 0.3 - 0.9 x10(3)/ L [facility] Eos % 2.7 % [facility] Eosinophils Abs 0.2 0.0 - 0.4 x10(3)/ L [facility] Basophil % 0.9 % [facility] Baso Absolute 0.1 0.0 - 0.1 x10(3)/ L [facility] Immature Gran % 0.30 % [facility] Comment: Immature granulocytes(IG's)percentage and absolute count will include metamyelocytes, myelocytes, and promyelocytes. Blood smears from CBCs yielding IG's will be scanned manually for concordance. If this scan disagrees with the automated IG or if promyelocytes are noted, a manual differential will be performed. Immature Gran Absolute 0.03 0.00 - 0.04 x10(3)/ L [facility] Blood specimen (specimen) 08/12/2017 4:16 PM EDT 08/12/2017 4:23 PM EDT Narrative Resulting Agency Comment Spec In Lab Ibrahima Lux MD HEMATOLOGY ORDERABLE S [facility] [place] [address] * (ABNORMAL) Hemogram (08/12/2017 4:16 PM EDT) White Blood Cell 9.0 4.0 - 9.5 x10(3)/mc L [facility] Red Blood Cell 4.69 4.58 - 5.54 x10(6)/mc L [facility] Hemoglobin 14.5 13.7 - 16.5 gm/dL [facility] Hematocrit 42.9 40.5 - 48.5 % [facility] Mean Cell Volume 91.5 82.9 - 93.1 fL [facility] Mean Cell Hemoglobin 30.9 27.5 - 32.1 pg [facility] Mean Cell Hemoglobin Concentration 33.8 32.0 - 35.7 gm/dL [facility] Platelet 251 145 - 357 x10(3)/mc L [facility] RDW Standard Deviation 47.7(H) 36.0 - 45.0 [facility] RDW coefficient of variation 14.2(H) 11.4 - 13.8 % [facility] Mean Platelet Volume 9.2 7.6 - 12.9 [facility] NRBC% auto 0.0 % [facility] NRBC Absolute 0.000 0.000 - 0.000 x10(3)/mc L [facility] Blood specimen (specimen) 08/12/2017 4:16 PM EDT 08/12/2017 4:23 PM EDT Narrative Resulting Agency Comment Spec In Lab Ibrahima Lux MD HEMATOLOGY ORDERABLE S [facility] [place] [address] * Phosphorus (08/12/2017 4:16 PM EDT) Phosphorus 3.0 2.5 - 4.5 mg/dL [facility] Blood specimen (specimen) 08/12/2017 4:16 PM EDT 08/12/2017 4:23 PM EDT Narrative Resulting Agency Comment Spec In Lab Ibrahima Lux MD CHEMISTRY ORDERABLES [facility] [place] [address] * Calcium (08/12/2017 4:16 PM EDT) Calcium 9.2 8.5 - 10.5 mg/dL [facility] Blood specimen (specimen) 08/12/2017 4:16 PM EDT 08/12/2017 4:23 PM EDT Narrative Resulting Agency Comment Spec In Lab Ibrahima Lux MD CHEMISTRY ORDERABLES Performing Organization Address City/[facility]/ZIP Co de Phone Number [facility] [place] [address] * Albumin Level (08/12/2017 4:16 PM EDT) Albumin 4.7 3.2 - 5.2 gm/dL [facility] Blood specimen (specimen) 08/12/2017 4:16 PM EDT 08/12/2017 4:23 PM EDT Narrative Resulting Agency Comment Spec In Lab Ibrahima Lux MD CHEMISTRY ORDERABLES Performing Organization Address City/[facility]/ZIP Co de Phone Number [facility] [place] [address] * (ABNORMAL) PTH (08/12/2017 4:16 PM EDT) Parathyroid Hormone 77(H) 15 - 65 pg/mL [facility] Blood specimen (specimen) 08/12/2017 4:16 PM EDT 08/12/2017 4:23 PM EDT Narrative Resulting Agency Comment Spec In Lab Ibrahima Lux MD CHEMISTRY ORDERABLES [facility] [place] [address] * (ABNORMAL) Basic Metabolic Panel (non-fasting) (08/12/2017 4:16 PM EDT) Glucose 89 65 - 199 mg/dL [facility] Comment:Diabetes: >=200 mg/d L plus symptoms Blood Urea Nitrogen 32(H) 10 - 20 mg/dL [facility] Creatinine 1.59(H) 0.80 - 1.50 mg/dL [facility] Sodium 142 135 - 145 mmol/L [facility] Potassium 4.6 3.5 - 5.0 mmol/L [facility] Comment: Please note: ??Patients with WBC >100,000 may have falsely elevated Potassium levels. ??For accurate Potassium quantification in these patients send serum separator tube (gold top) for subsequent determinations. ??Contact the Clinical Chemistry Laboratory if there are any questions. Chloride 102 98 - 107 mmol/L [facility] Carbon Dioxide 26 22 - 31 mmol/L [facility] Anion Gap 14 5 - 15 mmol/L [facility] Calcium 9.2 8.5 - 10.5 mg/dL [facility] Est Glomerular Filtration Rate 44(L) >=60 [facility] Comment: The reported eGFR should be multiplied by 1.2 for patients. The MDRD is not an appropriate measure of renal function for patients with body mass extremes or in patients with acute kidney failure. http://ZeaVision.Promuc/DHnkdep http://ZeaVision.Promuc/DHMCnkf Blood specimen (specimen) 08/12/2017 4:16 PM EDT 08/12/2017 4:23 PM EDT Narrative Resulting Agency Comment Spec In Lab Ibrahima Lux MD CHEMISTRY ORDERABLES [facility] [place] [address] documented in this encounter Visit Diagnoses Diagnosis CKD (chronic kidney disease) stage 3, GFR 30-59 ml/min Chronic kidney disease, Stage III (moderate) documented in this encounter Care Teams Heart Specialist Relationship Specialty Start Date End Date Antonella Lucas PA [address] [place] [address] PCP - General Family Medicine 05/06/17 11/01/19 documented as of this encounter
--- OUTSIDE RECORDS SUMMARY | 2024-03-13 10:10 | XMS_ITS | Encounter Summary ---
[place] [address] Care Team Providers Care Prop Maker Name Role Phone Uma Asif MD Primary Care Provider [phone] Reason for Visit * Reason Comments Coronary Artery Disease Encounter Details Date Type Department Care Team ([facility] st Contact Info) Description 06/21/2013 7:40 AM EDT Follow-Up Cardiology at [address] [address] Simon Loyd MD CAD (coronary artery disease) [...] from the original note were not included. [facility] Chest Pain (Angina): After Your Visit [...] is not getting better within 5 minutes, [id number] immediately. After calling 911, continue to stay on the phone with the emergency transfer and pumphouse operator. He or she will give you [...] irregular heartbeat. After you call 911, the transfer and pumphouse operator may tell you to chew 1 [...] more? Visit our health information library at [email or web address] You can also view health information on TabUp, your personal patient account. Log in or sign up today. Enter H129 in the search box to learn more about Chest Pain (Angina): After Your Visit. ?? [id number] [employer]. Care instructions adapted under license by [facility]. This care instruction is for use with your licensed healthcare professional. If you have questions about a medical condition or this instruction, always ask your healthcare professional. [employer] disclaims any warranty or liability for your use of this information. Content Version: [id number]; Last Revised: September 10, 2011 documented in [...] Coronary atherosclerosis of unspecified type of vessel, enterprise or graft documented in this encounter Care Teams Prop Maker Relationship Specialty Start Date End Date Uma Asif MD [address] [place] [address] PCP - General 02/05/10 05/05/17 documented as of this encounter
--- OUTSIDE RECORDS SUMMARY | 2024-03-13 10:10 | XMS_ITS | Encounter Summary ---
Author Organization [facility] Address [facility] [place] [address] Care Team Providers Care Inspector Structural Bonding Name Role Phone Antonella Lucas Primary Care Provider [phone] Encounter Details Date Type Department Care Team (Late st Contact Info) Description 09/07/2018 11:15 AM EDT Ancillary Procedure Radiology Library at [facility] [place] [address] Celine Finley MD [facility] [place] [address] Social History Tobacco Use Types Packs/Day Years [...] Abdomen Pelvis (09/07/2018 11:10 AM EDT) Narrative [facility] - 09/07/2018 11:10 AM EDT This exam is auto-finalizing. It's purpose is for storage only. Celine Finley MD IMG FILM LIBRARY ORD ERABLES DH [place], [place] documented in this encounter Visit Diagnoses Not on filedocumented in this encounter Care Teams Inspector Structural Bonding Relationship Specialty Start Date End Date Antonella Lucas PA [address] [place] [address] PCP - General Family Medicine 05/06/17 11/01/19 documented as of this encounter
--- OUTSIDE RECORDS SUMMARY | 2024-03-13 10:10 | XMS_ITS | Encounter Summary ---
Author Organization [facility] [place] [address] Care Team Providers Care Specimen Boss Name Role Phone Uma Asif MD Primary Care Provider [phone] Encounter Details Date Type Department Care Team (Late st Contact Info) Description 03/18/2010 11:10 AM EST Follow-Up Cardiology at [address] [address] Simon Loyd MD Discharge Disposition: Home Social History Tobacco Use [...] on filedocumented in this encounter Care Teams Specimen Boss Relationship Specialty Start Date End Date Uma Asif MD [address] [place] [address] PCP - General 02/05/10 05/05/17 documented as of this encounter
--- OUTSIDE RECORDS SUMMARY | 2024-03-13 10:10 | XMS_ITS | Encounter Summary ---
Author Organization [facility] Address [facility] [place] [address] Care Team Providers Care Spring Clipper Name Role Phone Antonella Lucas Primary Care Provider [phone] Encounter Details Date Type Department Care Team (Late st Contact Info) Description 09/07/2018 11:55 AM EDT Ancillary Procedure Radiology Library at [facility] [place] [address] Celine Finley MD [facility] [place] [address] Social History Tobacco Use Types Packs/Day Years [...] Lower Extremity (09/07/2018 11:54 AM EDT) Narrative [facility] - 09/07/2018 11:54 AM EDT This exam is auto-finalizing. It's purpose is for storage only. Celine Finley MD IMG FILM LIBRARY ORD ERABLES [facility] [place], [place] documented in this encounter Visit Diagnoses Not on filedocumented in this encounter Care Teams Spring Clipper Relationship Specialty Start Date End Date Antonella Lucas PA [address] [place] [address] PCP - General Family Medicine 05/06/17 11/01/19 documented as of this encounter
--- OUTSIDE RECORDS SUMMARY | 2024-03-13 10:10 | XMS_ITS | Encounter Summary ---
Author Organization [facility] Address [facility] [place] [address] Care Team Providers Care Retail Security Professional Name Role Phone Lance Antonella ARRIAGA Primary Care Provider [phone] Encounter Details Date Type Department Care Team (Latest Contact Info) Description 05/12/2017 - 05/12/2017 11:59 PM EST Hospital Encounter Radiology Library at [facility] [place] [address] Ibrahima Lux MD Discharge Disposition: Home Social History Tobacco [...] Release 24 hrIndications:Atheroscl erotic heart disease of galena coronary artery without angina pectoris Take 1 [...] Ultrasound Study (05/12/2017 12:00 AM EST) Narrative [facility] - 09/15/2017 3:52 PM EDT This exam is for storage only and is auto-finalizing. Ibrahima Lux MD G FILM LIBRARY ORD ERABLES Performing Organization Address City/State/[facility] Co de Phone Number [place], [place] documented in this encounter Visit Diagnoses Not on filedocumented in this encounter Care Teams Retail Security Professional Relationship Specialty Start Date End Date Antonella Lucas PA [address] [place] [address] PCP - General Family Medicine 05/06/17 11/01/19 documented as of this encounter
--- OUTSIDE RECORDS SUMMARY | 2024-03-13 10:10 | XMS_ITS | Encounter Summary ---
[place] [address] Care Team Providers Care Cigar Tobacco Rehandler Name Role Phone Uma Asif MD Primary Care Provider [phone] Encounter Details Date Type Department Care Team (Late st Contact Info) Description 03/18/2010 9:41 AM EST - 03/18/2010 11:59 PM [facility] Hospital Encounter Non[place] [id number] Social History Tobacco Use Types Packs/Day Years [...] on filedocumented in this encounter Care Teams Cigar Tobacco Rehandler Relationship Specialty Start Date End Date Uma Asif MD [address] [place] [address] PCP - General 02/05/10 05/05/17 documented as of this encounter
--- OUTSIDE RECORDS SUMMARY | 2024-03-13 10:10 | XMS_ITS | Encounter Summary ---
Author Organization [facility] Address [facility] [place] [address] Care Team Providers Care Medical Records Manager Name Role Phone Antonella Lucas Primary Care Provider [phone]- [phone] Encounter Details Date Type Department Care Team (Late st Contact Info) Description 12/03/2018 Orders Only Cardiology at [address] [address] Meghan Victor PA ASCVD (arteriosclerotic cardiovascular disease) Social History Tobacco [...] Modality Other Narrative 12/09/2018 4:24 PM EDT ?[facility] ? Cardiac Catheterization/Intervention Report ? Patient Name: Bee, Bear ? Procedure Date: 12/08/2018 ? A #: [id number] ? Primary Physician: Amado, Irwin N ? Case #: [id number] ? File Name: [id number] ? Catheterization Order Number: [id number] ? [facility] ? Final Report [place], [place] ? Patient Name: ? Bear JenkinsBee ?ID#: ?[id number] ? : ?1950 ? Procedure Date: ? December 08, 2018 ? Case #: ? [id number] ? Room: ? 1 ? Case Physician: [...] procedure was Elective. The indication for ?the cathode ray tube salvage processor visit is worsening angina and other indication. [...] ? occlusion. ??Distal flow was via the nome vessel, collaterals from ? the LCX as [...] large. ? Distal flow was via the nome vessel and collaterals from the LAD. ?Ramus [...] De Leon, MD - Primary ? * Orville Blair, MD - Fellow ?Preoperative diagnosis: ASCVD (arteriosclerotic cardiovascular disease) ?[I25.10] ?Postoperative diagnosis: ASCVD (arteriosclerotic cardiovascular disease) ?[I25.10] ?Procedure(s) (LRB): ?CARDIAC CATHETERIZATION (N/A) ?CORONARY ANGIOGRAPHY; [facility],POSSIBLE PCI ?Findings: ?LM - Mild diffuse disease; 50% proximal stenosis in the Ramus Intermedius ?LAD - 100% mid-vessel HYDROLOGIST; 50% ostial D2 stenosis; distal vessel receives [...] angiography and left heart ?catheterization. ? Irwin Fischer, M.D. ? Electronically Signed by: Irwin Fischer, M.D. ? Report Finalized: 12/09/2018 ??16:20 ? Report Last Ammended: 11/12/2019 ??15:25 ? Procedure Note Irwin Fischer MD - 11/12/2019 [facility] Cardiac Catheterization/Intervention Report Patient Name: Bear Gamboa Procedure Date: 12/08/2018 A #: [id number] Primary Physician: Irwin Fischer Case #: [id number] File Name: [id number] Catheterization Order Number: [id number] [facility] FinalReport [place], [place] Patient Name: Bear Gamboa ID#:[id number] :1950 Procedure Date: December 08, 2018 Case [...] patient was designated as ASA Class III. [facility] clinical frailty scale is 4: Vulnerable. Diagnostic [...] diagnostic procedure was Elective. Theindication for the cathode ray tube salvage processor visit is worsening angina and other indication. [...] total occlusion. Distal flow was via the nome vessel, collateralsfrom the LCX as well as [...] was large. Distal flow was via the nome vessel and collaterals from theLAD. Ramus There [...] (LRB): CARDIAC CATHETERIZATION (N/A) CORONARY ANGIOGRAPHY; [facility],POSSIBLE PCI Findings: LM - Mild diffuse disease; 50% proximal stenosis in the RamusIntermedius LAD - 100% mid-vessel HYDROLOGIST; 50% ostial D2 stenosis; distal vesselreceives L->L [...] disease documented in this encounter Care Teams Medical Records Manager Relationship Specialty Start Date End Date Antonella Lucas PA [address] [place] [address] PCP - General Family Medicine 05/06/17 11/01/19 documented as of this encounter
[2024-03-13 10:46] VITALS: BP 142/74; PULSE 73; RESP 20; TEMP 36.8; O2SAT 91
--- NOTE | 2024-03-13 11:00 | DI.RAD_ITS ---
Exam(s) XR CHEST 2V PA LATERAL EXAM: XR CHEST 2V PA LATERAL CLINICAL HISTORY: cough TECHNIQUE: 2D digital imaging was performed. Two views. COMPARISON: CT CT CHEST/ABD/PEL WO from 08/31/2021 FINDINGS: HEART: Mildly enlarged. Aorta: Not dilated. PULMONARY VASCULATURE: Normal. MEDIASTINUM: Unremarkable. LUNGS: Dense infiltrate noted at the lateral aspect of the inferior left upper lobe. Remainder of th e lung parnell appear clear. PLEURAL SPACE: No pleural effusion or pneumothorax. BONE:Unremarkable for age. Sternal wires. SOFT TISSUES: Unremarkable. IMPRESSION: Left upper lobe pneumonia. DATA REPOSITORY: RADIATION DOSE DELIVERED:
[2024-03-13 12:17] VITALS: O2SAT 97
[2024-03-13 12:21] VITALS: BP 128/67; PULSE 60; RESP 18; O2SAT 96
--- NOTE | 2024-03-13 12:30 | ED.GENADUL_ITS ---
Discharge Plan Disposition Patient Disposition: Home Condition: Stable Discharge Details Clinical Impression: Left upper lobe pneumonia Primary Care Provider: Antonella Lucas ED Provider: Ankit Duncan Home Meds and New Rx's Prescriptions: New doxycycline hyclate 100 mg tablet 100 mg PO BID Qty: 9 0RF amoxicillin-pot clavulanate 875-125 mg tablet 1 tab PO BID Qty: 9 0RF Continued (DME) Dexcom G6 Transmitter Device See Rx Instructions .Route Rx Instructions: As directed gabapentin 100 mg capsule 100 mg PO TID Rx Instructions: TAKE 1 IN AM , 1 AT NOONTIME AND 2 CAPS AT BEDTIME nitroglycerin [Nitrostat] 0.4 MG tablet, sublingual 0.4 mg Sublingual PRN PRN epinephrine 0.3 MG/0.3 ML auto-injector 0.3 mg IM PRN PRN insulin aspart U-100 [Novolog FlexPen U-100 Insulin] 100 unit/mL (3 mL) insulin pen 15 - 17 unit SUBCUT DIRECTED Patient Comments: INJECT UNDER THE SKIN FOUR TIMES DAILY ON SLIDING SCALE DIRECTED. MAXIMUM DAILY DOSE IS 60 UNITS clopidogrel 75 mg tablet 75 mg PO DAILY Patient Comments: TAKE 1 TABLET BY MOUTH EVERY DAY levothyroxine 25 mcg tablet 25 mcg PO DAILY Patient Comments: TAKE 1 TABLET BY MOUTH DAILY metformin 500 mg Tablet 500 mg PO BID furosemide [Lasix] 20 mg Tablet 20 mg PO QAM insulin glargine [Lantus Solostar U-100 Insulin] 100 unit/mL (3 mL) Insulin Pen 22 unit SUBCUT QPM rosuvastatin 10 mg Tablet 10 mg PO DAILY Qty: 30 0RF metoprolol tartrate 75 mg tablet 50 mg PO BID Patient Comments: TAKE 1 TABLET BY MOUTH TWICE DAILY Discharge Instructions Instructions: Pneumonia, Adult ED Additional Instructions: Please drink plenty of fluids and allow for plenty of rest. Take full course of antibiotic as prescribed. Please contact your primary care physician to arrange follow-up. Return to the ER immediately for any worsening or new concerning symptoms. Referrals: Antonella Lucas PA [Primary Care Provider] - Discharge Data Discharge Date/Time-TO BE ENTERED AT DEPARTURE: 03/13/24 13:20 HPI General Mode of arrival: ambulatory . Date/Time Provider Initiated Documentation: 03/13/24 09:51 . Limitations to Documentation: no limitations . Information obtained by: patient . HPI Narrative: 73-year-old male with insulin-dependent diabetes, here with chief complaint of difficulty hearing. Patient notes difficulty hearing over the past week. He states bilateral ears seem full. He has had cough over the past 6 days. Patient has associated sinus congestion and fatigue. No fever. No shortness of breath. Patient is not vaccinated against influenza or COVID. Glucose has been well-controlled. He notes blood sugar was 150s earlier today. Related Data Home Medications ?Medication ?Instructions ?Recorded ?Confirmed Nitrostat 0.4 mg sublingual tablet 0.4 mg sublingual PRN PRN 03/01/13 03/13/24 (nitroglycerin) epinephrine 0.3 mg/0.3 mL 0.3 mg IM PRN PRN 03/01/13 03/13/24 injection, auto-injector furosemide 20 mg tablet (Lasix) 20 mg PO QAM 09/07/18 03/13/24 insulin glargine 100 unit/mL (3 22 unit subcut QPM 04/27/20 03/13/24 mL) subcutaneous pen (Lantus Solostar U-100 Insulin) rosuvastatin 10 mg tablet 10 mg PO DAILY #30 tabs 05/17/21 03/13/24 clopidogrel 75 mg tablet 75 mg PO DAILY 06/10/21 03/13/24 insulin aspart U-100 100 unit/mL 15 - 17 unit subcut DIRECTED 06/10/21 03/13/24 (3 mL) subcutaneous pen (Novolog FlexPen U-100 Insulin aspart) levothyroxine 25 mcg tablet 25 mcg PO DAILY 06/10/21 03/13/24 metformin 500 mg tablet 500 mg PO BID 06/23/21 03/13/24 metoprolol tartrate 75 mg tablet 50 mg PO BID 07/08/21 03/13/24 blood-glucose transmitter (Dexcom 11/12/21 03/13/24 G6 Transmitter device) gabapentin 100 mg capsule 100 mg PO TID 12/20/21 03/13/24 amoxicillin 875 mg-potassium 1 tab PO BID #9 tabs 03/13/24 clavulanate 125 mg tablet doxycycline hyclate 100 mg tablet 100 mg PO BID #9 tabs 03/13/24 Previous Rx's ?Medication ?Instructions ?Recorded rosuvastatin 10 mg tablet 10 mg PO DAILY #30 tabs 05/17/21 amoxicillin 875 mg-potassium 1 tab PO BID #9 tabs 03/13/24 clavulanate 125 mg tablet doxycycline hyclate 100 mg tablet 100 mg PO BID #9 tabs 03/13/24 Allergies Allergy/AdvReac Type Severity Reaction Status Date / Time lisinopril Allergy Severe Anaphylaxis Verified 03/13/24 13:05 varenicline tartrate (From AdvReac Unknown Per pt, Verified 03/13/24 13:05 Chantix) didn't set well with him hornet Allergy facial/throat Uncoded 03/13/24 13:05 swelling General Stated Complaint: EarProblem JENN: 4 Review of Systems All systems reviewed & are unremarkable except as noted in HPI and below Constitutional Constitutional: Denies fever(s) Respiratory Respiratory: Reports as per HPI Exam Const General: cooperative and no acute distress HENMT Ears: external ear abnormal (Cerumen impaction bilateral) Mouth: moist mucous membranes Throat: posterior oropharynx normal Eyes Conjunctivae: conjunctival abnormality bilaterally conjunctival injection Sclera: normal sclerae Neck Neck: trachea midline and supple Resp Auscultation: clear to auscultation bilaterally, no rales, no rhonchi and no wheezes Cardio Rate: regular rate and not tachycardic Rhythm: regular rhythm GI Palpation: soft, not firm, no guarding, no masses, not rigid and nontender Skin General skin exam: no rashes or lesions noted Neuro General: patient alert, patient awake, patient oriented x3 and tone normal Extrem General: no edema Psych Appearance: grossly normal Mental Status: mental status grossly normal Course Vital Signs Vital signs: Vital Signs Temperature 36.8 C 03/13/24 09:54 Pulse 73 03/13/24 09:54 Respiratory Rate 20 03/13/24 09:54 Blood Pressure 142/74 H 03/13/24 09:54 Pulse Oximetry 91 L 03/13/24 09:54 Temperature 36.8 C 03/13/24 10:46 Temperature Source Oral 03/13/24 10:46 Pulse 60 03/13/24 12:21 Respiratory Rate 18 03/13/24 12:21 Blood Pressure 128/67 03/13/24 12:21 Blood Pressure Position Sitting 03/13/24 10:46 Pulse Oximetry 96 03/13/24 12:21 Oxygen Delivery Method Room Air 03/13/24 12:21 Oxygen Flow Rate 0 03/13/24 12:21 Pain Level 0 03/13/24 12:21 Medical Decision Making 73-year-old male here with cough over the past 6 days. Patient has associated sinus congestion and ear fullness with some fatigue. No fever. Patient is saturating in the low 90s which is atypical for him. No shortness of breath or respiratory distress. Hemodynamically stable. Concern for pneumonia versus bronchitis. COVID and influenza negative. Chest x-ray interpreted by radiology: Left upper lobe pneumonia noted. Given comorbidities I will cover with both Augmentin and doxycycline for community-acquired pneumonia. Patient does have cerumen impaction bilateral external ears. I recommended Debrox. Usual customary discharge instructions were reviewed with the patient. Plan for close outpatient follow-up with PCP. Quality:SDOH Health Related Social Needs: No Data to Display PFSH All Active Problems Left upper lobe pneumonia (Acute) Lumbar spinal stenosis (Acute) Status post revision of total knee replacement (Acute 02/11/22) Antibiotic spacer removal and revision knee arthroplasty of left knee Closed left clavicular fracture (Acute 09/07/18) Ulnar neuropathy of left upper extremity (Acute) S/P cubital tunnel release: 01/01/2022 Left carpal tunnel syndrome (Acute) S/P ECTR: 01/01/2022 Medical History Hx of myocardial infarction Hyperlipidemia Erectile dysfunction Gout Lumbar transverse process fracture Thyroid nodule Salena's thyroiditis Hyperglycemia COVID Chronic lower back pain Hypomagnesemia Anemia Osteomyelitis Ulnar neuropathy at wrist Sepsis Hypothyroidism Diabetes mellitus type 2 in obese Septic arthritis of knee, left in setting of TKA CKD (chronic kidney disease) Acute GI bleeding CAD (coronary artery disease) Hypertension Hypercholesterolemia Heart attack Surgical History History of total left knee replacement (TKR) History of foot surgery History of heart bypass surgery 2019 History of tonsillectomy H/O arthroscopy of left knee Social History (Updated 12/14/23 @ 08:35 by Omid Irene RN) Smoking/Tobacco Use Status: Former Tobacco Use Quit Date: 12/22/18 Tobacco: How many years used: 50 Smoking risk assessment performed?: Yes Alcohol Intake: former Details: Has not had alcohol in 6 months Drug use: Never Substance use type: does not use Do you feel safe at home: Yes Do you feel safe in your relationship?: Yes
[2024-03-13] MEDS: Doxycycline Hyclate 100 MG CAP PO (13:05)
[2024-03-13] MEDS: Amoxicillin 875/Clav. 125 TAB PO (13:06)
[2024-03-13 13:10] VITALS: BP 138/82; PULSE 82; RESP 18; TEMP 36.5; O2SAT 97
== END 2024-03-13 13:20 | disposition home or self-care (01) ==
PROVIDERS: Emergency Provider Student in an Organized Health Care Education/Training Program; PCP Physician Assistant Medical
DX: J18.9 Pneumonia, unspecified organism (principal); H61.93 Disorder of external ear, unspecified, bilateral; I25.10 Atherosclerotic heart disease of native coronary artery without angina pectoris; I25.2 Old myocardial infarction; E78.5 Hyperlipidemia, unspecified; E06.3 Autoimmune thyroiditis; E11.22 Type 2 diabetes mellitus with diabetic chronic kidney disease; I12.9 Hypertensive chronic kidney disease with stage 1 through stage 4 chronic kidney disease, or unspecified chronic kidney disease; N18.9 Chronic kidney disease, unspecified; Z79.01 Long term (current) use of anticoagulants; Z79.4 Long term (current) use of insulin; Z79.84 Long term (current) use of oral hypoglycemic drugs; Z79.82 Long term (current) use of aspirin; Z87.891 Personal history of nicotine dependence
CPT/HCPCS: 99284; 71046

== ENCOUNTER 2024-05-23 07:55 | Outpatient (CLI) | payer MEDICARE, MEDICAID, SELFPAY ==
--- NOTE | 2024-05-23 06:00 | DI.RAD_ITS ---
Exam(s) XR PAIN CLINIC LUMBAR SP 2V EXAM: XR PAIN CLINIC LUMBAR SP 2V CLINICAL HISTORY: DX: Lumbar Radiculopathy TECHNIQUE: 2D and realtime digital imaging was performed. CONTRAST MATERIAL: Refer to procedure report. COMPARISON: No exams were available for comparison FINDINGS: Fluoroscopy was provided for Dr. Pepe during the performance of a lumbar epidural steroid injecti on. Please refer to the procedure report for complete details. Ka,r=26.9 mGy IMPRESSION: RADIATION DOSE DELIVERED: 0.0 0.0 0
[2024-05-23 08:00] VITALS: BP 96/58; PULSE 43; RESP 20; TEMP 36.7; O2SAT 94
--- NOTE | 2024-05-23 08:33 | PDOC.PAIN ---
Date of service: 05/23/24 Time of Service: 09:09 Pain Managment Procedure Note Procedure Note Procedure Note: Lumbar Interlaminar Epidural Steroid Injection ? Location: L5-S1 ? Pre-procedure Diagnosis: M54.16- Radiculopathy, LUMBAR region ? Post-procedure Diagnosis:? The same as above ? Sedation:?? None ? Medication: Depo-Medrol 80 mg, Omnipaque 1 mL ? Estimated blood loss:? less than 2 cc ? Surgeon:? Gregor Pepe MD COMMENT: Patient had previous epidural steroid injection December 29, 2023. He held his Plavix for 7 days. Pt has HgA1c 7.2 down from 8.2 so less steroid used last visit. Will use full 80 mg on this visit. He did not notice a bump in his glucose after the last injection. He has multi-level stenosis. ? Procedure Detail:? The procedure and potential risks were explained to the patient and informed written consent was obtained. The patient was escorted to the procedure room and placed in the prone position. Pillows were utilized for proper positioning and comfort. Time out was performed in the procedure room with nursing staff confirming the patient's identity, procedure to be performed, allergies, and any blood thinning or anti-platelet medications.? The patient's neck and upper back was prepped with ChloraPrep and draped in a sterile fashion. Sterile technique was maintained throughout the procedure.? Sterile gloves were used, a face mask was worn, and new single dose vials of all medications were used with the top being swabbed with alcohol and given time to dry prior to withdrawal of medication. Lidocane 1% was used to anesthetize the skin.Using a 25-gauge 1.5 inch needle, 1% lidocaine was instilled into the superficial soft tissue overlying the targeted area to provide local anesthesia. With fluoroscopic guidance, a 17 -gauge Tuohy needle was advanced toward the interlaminar space of L5-S1. The needle was then advance through the ligamentum flavum and into the posterior epidural space using the loss of resistance technique. Correct needle placement was confirmed through review of the AP and contralateral oblique fluoroscopic views. A 19-gauge arrow catheter was threaded cephalad to midline L4-5 Following negative aspiration, one cc of Omnipaque 240 contrast was injected which confirmed good flow throughout the epidural space and no evidence of vascular flow or flow into adjacent compartments. Next, following negative aspiration, 0.5 ml lidocaine, 1 cc's of normal saline and 80mg of Depo-Medrol was injected. The needle was gently removed. The patient tolerated the procedure well and was transported to the recovery area for observation and discharge instructions. Permanent images saved and recorded. PAIN PRE-PROCEDURE POST-PROCEDURE 0 Plan:? Follow up prn. COMMENT: Would consider lumbar medial branch blocks and radiofrequency ablation for his low back pain. He will come into the office to discuss if he still having pain after his epidural steroid injection. Coding Conscious Sedation used for procedure: No CPT Codes: Inj Spine L/S w/Imaging - [id number] ([id number] ~G) Additional Codes: Date of Service ([id number]) Date of service: 05/23/24
[2024-05-23 08:51] VITALS: PULSE 51; O2SAT 91
[2024-05-23 09:00] VITALS: PULSE 47; O2SAT 94
[2024-05-23] MEDS: methylPREDNISolone ACETATE 40 MG/ML VIAL IJ (09:09)
[2024-05-23] MEDS: Omnipaque 240 MG/ML 50 ML BTL IJ (09:10)
[2024-05-23] MEDS: Epidural Tray 1 EACH MC (09:11)
== END 2024-05-23 07:56 | disposition home or self-care (01) ==
LOC: PC 07:56
PROVIDERS: PCP Physician Assistant Medical; Visit Provider Anesthesiology Pain Medicine
DX: M54.16 Radiculopathy, lumbar region (principal); M54.50 Low back pain, unspecified
CPT/HCPCS: 62323; 72100; J1010; Q9967

== ENCOUNTER 2024-06-21 11:14 | Outpatient (CLI) | payer MEDICARE, MEDICAID, SELFPAY ==
--- NOTE | 2024-06-21 11:15 | RT.EKG_ITS ---
APPROVED REPORT Exam: Resting ECG Reason for Exam: NPW Baseline needed Patient Location: O HR:48 bpm ECG Measurements Heart Rate 48 AXIS CA [id number] P [id number] QRSd 129 QRS 10 QT 465 T 0 QTc 416 Conclusion Atrial fibrillation... Nondiagnostic ST-T abnormalities
== END 2024-06-21 11:15 | disposition home or self-care (01) ==
LOC: DI.CARD 11:21
PROVIDERS: PCP Physician Assistant Medical; Referring Provider Physician Assistant Medical; Visit Provider Internal Medicine Cardiovascular Disease
DX: R00.1 Bradycardia, unspecified (principal); I25.2 Old myocardial infarction; I25.10 Atherosclerotic heart disease of native coronary artery without angina pectoris; I10 Essential (primary) hypertension; Z95.1 Presence of aortocoronary bypass graft; I48.91 Unspecified atrial fibrillation
CPT/HCPCS: 93010

== ENCOUNTER → 2024-06-21 11:14 | Outpatient (BNVA) | payer MEDICARE, MEDICAID, SELFPAY | PROVIDERS: PCP Physician Assistant Medical; Referring Provider Physician Assistant Medical; Visit Provider Internal Medicine Cardiovascular Disease | DX: Z95.1 Presence of aortocoronary bypass graft (principal); I48.91 Unspecified atrial fibrillation; R94.31 Abnormal electrocardiogram [ECG] [EKG] | CPT/HCPCS: 93005; 99214 ==

== ENCOUNTER 2024-07-11 09:58 | Outpatient (REF) | payer MEDICARE, MEDICAID, SELFPAY ==
[2024-07-11 16:08] LABS: Hemoglobin A1C 7.5 % (<5.7)
[2024-07-11 16:28] LABS: Anion Gap 8.3 mmol/L (3-11); BUN 42 mg/dL (7-18); CO2 28.7 mmol/L (21.0-32.0); CREATININE 1.8 mg/dL (0.70-1.30); Calcium 8.9 mg/dL (8.5-10.1); Calculated LDL 93 mg/dL (<100); Chloride 107 mmol/L (98-107); Cholesterol 160 mg/dL (<200); Glucose 185 mg/dL (74-106); HDL Cholesterol 43 mg/dL (>or=40); Potassium 4.6 mmol/L (3.5-5.1); Sodium 144 mmol/L (136-145); Triglyceride 124 mg/dL (<150)
== END 2024-07-11 09:59 | disposition home or self-care (01) ==
LOC: NCHCN 09:58
PROVIDERS: PCP Physician Assistant Medical; Visit Provider Physician Assistant Medical
DX: E11.9 Type 2 diabetes mellitus without complications (principal)
CPT/HCPCS: 80048; 80061; 83036

== ENCOUNTER → 2024-07-19 13:38 | Outpatient (BNVA) | payer MEDICARE, MEDICAID, SELFPAY | PROVIDERS: PCP Physician Assistant Medical; Referring Provider Physician Assistant Medical; Visit Provider Internal Medicine Cardiovascular Disease | DX: I48.91 Unspecified atrial fibrillation (principal); Z95.1 Presence of aortocoronary bypass graft | CPT/HCPCS: 99213 ==

== ENCOUNTER 2024-10-10 12:35 | Outpatient (REF) | payer MEDICARE, MEDICAID, SELFPAY ==
[2024-10-10 16:55] LABS: Anion Gap 9.1 mmol/L (3-11); BUN 31 mg/dL (7-18); CO2 26.9 mmol/L (21.0-32.0); Calcium 8.7 mg/dL (8.5-10.1); Chloride 105 mmol/L (98-107); Estimated GFR 49.16 (mL/min/1.73m2); Glucose 218 mg/dL (74-106); Potassium 4.5 mmol/L (3.5-5.1); Sodium 141 mmol/L (136-145); TSH 3.55 uIU/mL (0.36-3.74); Uric Acid 7.4 mg/dL (3.5-7.2)
[2024-10-10 17:02] LABS: Hemoglobin A1C 7.9 % (<5.7)
== END 2024-10-10 12:36 | disposition home or self-care (01) ==
LOC: NCHCN 12:35
PROVIDERS: PCP Physician Assistant Medical; Visit Provider Physician Assistant Medical
DX: E11.9 Type 2 diabetes mellitus without complications (principal); E06.3 Autoimmune thyroiditis
CPT/HCPCS: 80048; 83036; 84439; 84443; 84550

== ENCOUNTER 2025-01-02 10:12 | Outpatient (REF) | payer MEDICARE, MEDICAID, SELFPAY ==
[2025-01-02 16:05] LABS: Hemoglobin A1C 7.7 % (<5.7)
[2025-01-02 16:16] LABS: Anion Gap 9.4 mmol/L (3-11); BUN 45 mg/dL (7-18); CO2 26.6 mmol/L (21.0-32.0); Calcium 8.7 mg/dL (8.5-10.1); Chloride 104 mmol/L (98-107); Estimated GFR 39.50 (mL/min/1.73m2); Glucose 178 mg/dL (74-106); Potassium 4.5 mmol/L (3.5-5.1); Sodium 140 mmol/L (136-145); TSH (W/Ref FT4) 3.63 uIU/mL (0.36-3.74); Uric Acid 8.1 mg/dL (3.5-7.2)
== END 2025-01-02 10:13 | disposition home or self-care (01) ==
LOC: NCHCN 10:12
PROVIDERS: PCP Physician Assistant Medical; Visit Provider Physician Assistant Medical
DX: N18.30 Chronic kidney disease, stage 3 unspecified (principal); M10.9 Gout, unspecified; E11.9 Type 2 diabetes mellitus without complications; E06.3 Autoimmune thyroiditis
CPT/HCPCS: 80048; 83036; 84443; 84550

== ENCOUNTER → 2025-01-17 09:36 | Outpatient (BNVA) | payer MEDICARE, MEDICAID, SELFPAY | PROVIDERS: PCP Physician Assistant Medical; Visit Provider Internal Medicine Cardiovascular Disease | DX: I48.21 Permanent atrial fibrillation (principal); Z95.1 Presence of aortocoronary bypass graft | CPT/HCPCS: 99213 ==

== ENCOUNTER 2025-01-20 15:38 | Outpatient (REF) | payer MEDICARE, MEDICAID, SELFPAY ==
[2025-01-20 18:11] LABS: Microalb ug/mg Crea 286.8 ug/mg Cr
== END 2025-01-20 15:39 | disposition home or self-care (01) ==
LOC: NCHCN 15:38
PROVIDERS: PCP Physician Assistant Medical; Visit Provider Physician Assistant Medical
DX: E11.9 Type 2 diabetes mellitus without complications (principal)
CPT/HCPCS: 82043; 82570